=== PATIENT | female | born 1975 | race Caucasian/White ===

== ENCOUNTER 2017-07-08 12:36 | Observation (INO) | payer OTHER ==
[~2017-07-08] VITALS: Ht 121.9 cm; Wt 79.7 kg
[~2017-07-08 12:36] MED LIST: ALBU90OI INH; AMOCLA500; AMOCLA500 PO; AMOCLA875 PO; AMOX1XR; AMOX500 PO; AZIT250 PO; AZIT500 PO; BENZ100A PO; CEPH500 PO; CIPR500 PO; CLIN300 PO; CLOT1TC TOP; CODGUAEL PO; CYCL10 PO; Cleocin HCl300 MG PO; Colace100 MG PO; DIAZ5 PO; FAMO20 PO; HYDACE10B PO; HYDACE5; HYDACE5 PO; HYDGUAL120 PO; HYDMOR8 PO; Humalog100 UNIT/1; Humalog100 UNIT/1 SC; INSDET100; INSUASPI SC; INSULANI; INSULANI SC; INSULANPEN SC; MAGCIT300 PO; META800 PO; METF500; METF500 PO; METF500C PO; NAPR500 PO; NAPR550 PO; Neurontin 100100 MG PO; ONDA4 PO; ONDA8 PO; OXYACE5T PO; OXYC1TAB11; OXYM.05NI; PENVK500 PO; POTCHL20ER PO; PROM25 PO; Percocet 5-3251 EACH PO; Prednisone20 MG PO; RXCLIN PO; RXCYCL10 PO; RXHYDACE PO; RXHYDGUAS PO; RXNAPNA550 PO; TOBDEXOPSU OP; TRAM50 PO; Ultram50 MG PO; WARF4 PO; WARF5; Zofran Odt4 MG SL
[2017-07-08 14:05] LABS: Hematocrit 38.8 % (33.0-51.0); Mean Corpuscular HGB 31.3 pg (26.0-34.0); Mean Corpuscular HGB Conc 33.5 g/dL (31.5-36.5); Mean Corpuscular Volume 94 fL (80-100); Mean Platelet Volume 10.4 fL (9.1-12.4); Platelet Count 315 K/mm3 (150-400); RDW Coefficient Variation 12.1 % (11.7-14.2); RDW Standard Deviation 41.7 fL (35.1-46.3); Red Blood Cell Count 4.15 M/mm3 (3.80-5.20); White Blood Cell Count 27.18 K/mm3 (4.00-11.30)
[2017-07-08 14:16] LABS: International Normalized Ratio 1.02; Prothrombin Time Results 10.6 Sec (9.7-11.5)
[2017-07-08 14:25] LABS: BAND PERCENT MAN 19 % (0-8); BASOPHILS PERCENT MAN 0 % (0-2); EOSINOPHILS PERCENT MAN 0 % (0-6); LYMPHOCYTES ABSOLUTE MAN 0.27 K/mm3 (0.84-5.20); LYMPHOCYTES PERCENT MAN 1 % (21-46); METAMYELOCYTE ABSOLUTE MAN 0.81 K/mm3 (0.00-0.00); METAMYELOCYTE PERCENT MAN 3 % (0-0); MONOCYTES ABSOLUTE MAN 1.63 K/mm3 (0.16-1.47); MONOCYTES PERCENT MAN 6 % (4-13); NEUTROPHILS ABSOLUTE MAN 24.46 K/mm3 (1.96-9.15); SEG NEUTROPHILS PERCENT MAN 71 % (41-73); TOTAL CELLS COUNTED 100
[2017-07-08 14:34] LABS: Alanine Aminotransfer (ALT/SGP 24 U/L (12-78); Albumin, Blood 3.2 g/dL (3.4-5.0); Albumin/Globulin Ratio 0.9 (0.8-1.8); Alk Phos 62 U/L (50-136); Anion Gap 8 mmol/L (6-16); Aspartate Aminotrans (AST/SGOT 21 U/L (12-37); Bilirubin, Total 0.6 mg/dL (0.1-1.0); Blood Urea Nitrogen 18 mg/dL (8-24); Bun/Creatinine Ratio 31.9 (12.0-20.0); CO2, Blood 27 mmol/L (21-32); Calcium, Blood 8.4 mg/dL (8.5-10.1); Chloride, Blood 99 mmol/L (98-108); Creatinine, Blood 0.57 mg/dL (0.40-1.00); Globulin, Blood 3.7 g/dL (2.2-4.0); Glomerular Filtration Rate >60 (60-); Glucose, Blood 379 mg/dL (70-99); Potassium, Blood 4.2 mmol/L (3.5-5.5); Sodium, Blood 134 mmol/L (136-145); Total Protein, Blood 6.9 g/dL (6.4-8.2)
[2017-07-08] MEDS ORDERED: METHADONE IN10 MG/ML PO (17:19)
[2017-07-09 05:36] LABS: BASOPHILS ABSOLUTE AUTO 0.04 K/mm3 (0.00-0.23); BASOPHILS PERCENT AUTO 0 % (0-2); EOSINOPHILS PERCENT AUTO 0 % (0-6); Hematocrit 34.6 % (33.0-51.0); Hemoglobin 11.9 g/dL (11.5-16.0); IMMATURE GRAN ABSOLUTE AUTO 0.11 K/mm3 (0.00-0.10); IMMATURE GRAN PERCENT AUTO 1 % (0-1); LYMPHOCYTES ABSOLUTE AUTO 0.69 K/mm3 (0.84-5.20); LYMPHOCYTES PERCENT AUTO 5 % (21-46); MONOCYTES ABSOLUTE AUTO 0.76 K/mm3 (0.16-1.47); MONOCYTES PERCENT AUTO 5 % (4-13); Mean Corpuscular HGB 32.1 pg (26.0-34.0); Mean Corpuscular HGB Conc 34.4 g/dL (31.5-36.5); Mean Corpuscular Volume 93 fL (80-100); Mean Platelet Volume 11.4 fL (9.1-12.4); NEUTROPHILS ABSOLUTE AUTO 13.78 K/mm3 (1.96-9.15); NEUTROPHILS PERCENT AUTO 90 % (41-73); Platelet Count 209 K/mm3 (150-400); RDW Coefficient Variation 12.1 % (11.7-14.2); RDW Standard Deviation 41.8 fL (35.1-46.3); Red Blood Cell Count 3.71 M/mm3 (3.80-5.20); White Blood Cell Count 15.38 K/mm3 (4.00-11.30)
[2017-07-09 05:59] LABS: Anion Gap 5 mmol/L (6-16); Blood Urea Nitrogen 15 mg/dL (8-24); Bun/Creatinine Ratio 29.6 (12.0-20.0); CO2, Blood 27 mmol/L (21-32); Calcium, Blood 7.7 mg/dL (8.5-10.1); Chloride, Blood 103 mmol/L (98-108); Creatinine, Blood 0.51 mg/dL (0.40-1.00); Glomerular Filtration Rate >60 (60-); Glucose, Blood 273 mg/dL (70-99); Potassium, Blood 4.2 mmol/L (3.5-5.5); Sodium, Blood 135 mmol/L (136-145)
[2017-07-09 07:41] LABS: Source, Urine Catheter
[2017-07-09 07:44] LABS: Bilirubin, Urine Neg (Neg); Blood, Urine 2+ (Neg); Glucose Qualitative, Urine 4+ (Neg); Ketones, Urine Neg (Neg); Leukocyte Esterase, Urine Neg (Neg); Nitrite, Urine Neg (Neg); Protein, Urine 1+ (Neg); Urobilinogen, Urine NORM (Normal)
[2017-07-09 07:46] LABS: Appearance, Urine Clear (Clear); Color, Urine Yellow (P-Yellow)
[2017-07-09 07:52] LABS: Squamous Epithelial Cells Many /hpf (Few); Yeast/Fungi Urine Few /hpf
[2017-07-09 07:54] LABS: Bacteria Rare /hpf; Red Blood Cells, Urine 0-2 /hpf (0-2); White Blood Cells, Urine 0-2 /hpf (0-5)
[2017-07-09] MEDS ORDERED: IBUP400 PO (11:24)
[2017-07-09] MEDS ORDERED: PROBIOTIC1 EACH PO (11:25)
[2017-07-09] MEDS ORDERED: CLIN300 PO (11:25)
== END 2017-07-09 19:00 | disposition home or self-care (01) ==
LOC: ER 12:36 → MEDS 12:37 → ER 15:14 → MEDS 15:14 → ENPENDDIS 07-09 11:00 → MEDS 07-09 19:00
PROVIDERS: Internal Medicine; Nurse Practitioner Family
DX: A41.9 Sepsis, unspecified organism (principal); L03.115 Cellulitis of right lower limb; Q77.4 Achondroplasia; E11.9 Type 2 diabetes mellitus without complications; F11.90 Opioid use, unspecified, uncomplicated; G89.29 Other chronic pain; F17.200 Nicotine dependence, unspecified, uncomplicated; R11.2 Nausea with vomiting, unspecified; Z88.0 Allergy status to penicillin; Z88.2 Allergy status to sulfonamides; Z88.1 Allergy status to other antibiotic agents; Z88.8 Allergy status to other drugs, medicaments and biological substances; Z79.899 Other long term (current) drug therapy
CPT/HCPCS: 36415; 80048; 80053; 81001; 82947; 83605; 85025; 85610; 85730; 96361; 96365; 96375; 99285; J1650; J1815; J2405; J3370; J3490; J7030; J7120

== ENCOUNTER 2017-07-20 19:49 | Emergency (ER) | payer OTHER ==
[~2017-07-20] VITALS: Ht 121.9 cm; Wt 56.7 kg
[~2017-07-20 19:49] MED LIST changes: +IBUP400 PO; +METHADONE IN10 MG/ML PO; +PROBIOTIC1 EACH PO
[2017-07-20 20:38] LABS: BASOPHILS ABSOLUTE AUTO 0.03 K/mm3 (0.00-0.23); BASOPHILS PERCENT AUTO 0 % (0-2); EOSINOPHILS ABSOLUTE AUTO 0.07 K/mm3 (0.00-0.68); EOSINOPHILS PERCENT AUTO 1 % (0-6); Hematocrit 39.2 % (33.0-51.0); IMMATURE GRAN ABSOLUTE AUTO 0.09 K/mm3 (0.00-0.10); IMMATURE GRAN PERCENT AUTO 1 % (0-1); LYMPHOCYTES ABSOLUTE AUTO 1.88 K/mm3 (0.84-5.20); LYMPHOCYTES PERCENT AUTO 22 % (21-46); MONOCYTES ABSOLUTE AUTO 1.32 K/mm3 (0.16-1.47); MONOCYTES PERCENT AUTO 15 % (4-13); Mean Corpuscular HGB 30.7 pg (26.0-34.0); Mean Corpuscular HGB Conc 33.2 g/dL (31.5-36.5); Mean Corpuscular Volume 93 fL (80-100); Mean Platelet Volume 9.3 fL (9.1-12.4); NEUTROPHILS ABSOLUTE AUTO 5.26 K/mm3 (1.96-9.15); NEUTROPHILS PERCENT AUTO 61 % (41-73); Platelet Count 541 K/mm3 (150-400); RDW Coefficient Variation 12.1 % (11.7-14.2); RDW Standard Deviation 41.2 fL (35.1-46.3); Red Blood Cell Count 4.24 M/mm3 (3.80-5.20); White Blood Cell Count 8.65 K/mm3 (4.00-11.30)
[2017-07-20 20:55] LABS: Alanine Aminotransfer (ALT/SGP 21 U/L (12-78); Albumin, Blood 3.1 g/dL (3.4-5.0); Albumin/Globulin Ratio 0.6 (0.8-1.8); Alk Phos 90 U/L (50-136); Anion Gap 8 mmol/L (6-16); Aspartate Aminotrans (AST/SGOT 23 U/L (12-37); Bilirubin, Total 0.2 mg/dL (0.1-1.0); Blood Urea Nitrogen 17 mg/dL (8-24); Bun/Creatinine Ratio 21.4 (12.0-20.0); CO2, Blood 30 mmol/L (21-32); Calcium, Blood 9.2 mg/dL (8.5-10.1); Chloride, Blood 98 mmol/L (98-108); Glomerular Filtration Rate >60 (60-); Glucose, Blood 169 mg/dL (70-99); Potassium, Blood 4.4 mmol/L (3.5-5.5); Sodium, Blood 136 mmol/L (136-145); Total Protein, Blood 8.1 g/dL (6.4-8.2)
[2017-07-20] MEDS ORDERED: Cleocin HCl300 MG PO (21:10)
== END 2017-07-20 21:21 | disposition home or self-care (01) ==
LOC: ER 19:49
PROVIDERS: Emergency Medicine
DX: L03.115 Cellulitis of right lower limb (principal); J44.9 Chronic obstructive pulmonary disease, unspecified; F17.210 Nicotine dependence, cigarettes, uncomplicated
CPT/HCPCS: 36415; 80053; 83605; 85025; 99283

== ENCOUNTER 2018-07-25 11:21 | Emergency (ER) | payer OTHER ==
[~2018-07-25] VITALS: Ht 121.9 cm; Wt 56.7 kg
[2018-07-25] MEDS ORDERED: BASAGLAR K100 UNIT/1 SC (11:40)
[2018-07-25 11:48] LABS: BASOPHILS ABSOLUTE AUTO 0.05 K/mm3 (0.00-0.23); BASOPHILS PERCENT AUTO 0 % (0-2); EOSINOPHILS ABSOLUTE AUTO 0.06 K/mm3 (0.00-0.68); EOSINOPHILS PERCENT AUTO 0 % (0-6); Hematocrit 39.8 % (33.0-51.0); IMMATURE GRAN ABSOLUTE AUTO 0.09 K/mm3 (0.00-0.10); IMMATURE GRAN PERCENT AUTO 1 % (0-1); LYMPHOCYTES ABSOLUTE AUTO 1.78 K/mm3 (0.84-5.20); LYMPHOCYTES PERCENT AUTO 12 % (21-46); MONOCYTES ABSOLUTE AUTO 1.11 K/mm3 (0.16-1.47); MONOCYTES PERCENT AUTO 7 % (4-13); Mean Corpuscular HGB 31.9 pg (26.0-34.0); Mean Corpuscular HGB Conc 32.7 g/dL (31.5-36.5); Mean Corpuscular Volume 98 fL (80-100); Mean Platelet Volume 10.6 fL (9.1-12.4); NEUTROPHILS ABSOLUTE AUTO 11.89 K/mm3 (1.96-9.15); NEUTROPHILS PERCENT AUTO 79 % (41-73); Platelet Count 332 K/mm3 (150-400); RDW Coefficient Variation 11.9 % (11.7-14.2); Red Blood Cell Count 4.08 M/mm3 (3.80-5.20); White Blood Cell Count 14.98 K/mm3 (4.00-11.30)
[2018-07-25 12:04] LABS: Alanine Aminotransfer (ALT/SGP 26 U/L (12-78); Albumin, Blood 3.3 g/dL (3.4-5.0); Albumin/Globulin Ratio 0.9 (0.8-1.8); Alk Phos 102 U/L (50-136); Anion Gap 16 mmol/L (6-16); Aspartate Aminotrans (AST/SGOT 19 U/L (12-37); Bilirubin, Total 0.5 mg/dL (0.1-1.0); Blood Urea Nitrogen 19 mg/dL (8-24); Bun/Creatinine Ratio 34.7 (12.0-20.0); CO2, Blood 16 mmol/L (21-32); Calcium, Blood 10.1 mg/dL (8.5-10.1); Chloride, Blood 99 mmol/L (98-108); Creatinine, Blood 0.55 mg/dL (0.40-1.00); Globulin, Blood 3.6 g/dL (2.2-4.0); Glomerular Filtration Rate >60 (60-); Glucose, Blood 531 mg/dL (70-99); Potassium, Blood 4.3 mmol/L (3.5-5.5); Sodium, Blood 131 mmol/L (136-145); Total Protein, Blood 6.9 g/dL (6.4-8.2); Troponin I <0.015 ng/mL (0.000-0.040)
[2018-07-25] MEDS ORDERED: LANS30EC PO (14:31)
== END 2018-07-25 14:41 | disposition home or self-care (01) ==
LOC: ER 11:21
PROVIDERS: Internal Medicine
DX: R07.9 Chest pain, unspecified (principal); J44.9 Chronic obstructive pulmonary disease, unspecified; F17.210 Nicotine dependence, cigarettes, uncomplicated; E11.9 Type 2 diabetes mellitus without complications; Z88.2 Allergy status to sulfonamides; Z88.0 Allergy status to penicillin
CPT/HCPCS: 36415; 71046; 80053; 82947; 84484; 85025; 93005; 93010; 96374; 96375; 99285-25; J1815; J2405

== ENCOUNTER 2019-01-26 17:01 | Inpatient (IN) | payer OTHER ==
[~2019-01-26] VITALS: Ht 121.9 cm; Wt 81.6 kg
[~2019-01-26 17:01] MED LIST changes: +BASAGLAR K100 UNIT/1 SC; +LANS30EC PO; -METHADONE IN10 MG/ML PO
[2019-01-26 19:10] LABS: BASOPHILS ABSOLUTE AUTO 0.06 K/mm3 (0.00-0.23); BASOPHILS PERCENT AUTO 1 % (0-2); EOSINOPHILS ABSOLUTE AUTO 0.01 K/mm3 (0.00-0.68); EOSINOPHILS PERCENT AUTO 0 % (0-6); Hemoglobin 12.6 g/dL (11.5-16.0); IMMATURE GRAN PERCENT AUTO 1 % (0-1); LYMPHOCYTES ABSOLUTE AUTO 1.98 K/mm3 (0.84-5.20); LYMPHOCYTES PERCENT AUTO 15 % (21-46); MONOCYTES ABSOLUTE AUTO 1.36 K/mm3 (0.16-1.47); MONOCYTES PERCENT AUTO 10 % (4-13); Mean Corpuscular HGB 31.5 pg (26.0-34.0); Mean Corpuscular HGB Conc 33.2 g/dL (31.5-36.5); Mean Corpuscular Volume 95 fL (80-100); Mean Platelet Volume 10.4 fL (9.1-12.4); NEUTROPHILS ABSOLUTE AUTO 9.57 K/mm3 (1.96-9.15); NEUTROPHILS PERCENT AUTO 73 % (41-73); Platelet Count 382 K/mm3 (150-400); RDW Standard Deviation 41.9 fL (35.1-46.3); White Blood Cell Count 13.08 K/mm3 (4.00-11.30)
[2019-01-26 19:40] LABS: Alanine Aminotransfer (ALT/SGP 22 U/L (12-78); Albumin, Blood 3.7 g/dL (3.4-5.0); Albumin/Globulin Ratio 0.9 (0.8-1.8); Alk Phos 123 U/L (50-136); Anion Gap 11 mmol/L (6-16); Aspartate Aminotrans (AST/SGOT 15 U/L (12-37); Bilirubin, Total 0.6 mg/dL (0.1-1.0); Blood Urea Nitrogen 25 mg/dL (8-24); Bun/Creatinine Ratio 26.9 (12.0-20.0); CO2, Blood 26 mmol/L (21-32); Calcium, Blood 10.4 mg/dL (8.5-10.1); Chloride, Blood 87 mmol/L (98-108); Creatinine, Blood 0.93 mg/dL (0.40-1.00); Globulin, Blood 4.3 g/dL (2.2-4.0); Glomerular Filtration Rate >60 (60-); Glucose, Blood 572 mg/dL (70-99); Potassium, Blood 4.2 mmol/L (3.5-5.5); Sodium, Blood 124 mmol/L (136-145)
[2019-01-26 20:11] LABS: Source, Urine Clean Catch
[2019-01-26 20:14] LABS: Bilirubin, Urine Neg (Neg); Blood, Urine 2+ (Neg); Glucose Qualitative, Urine 4+ (Neg); Ketones, Urine 3+ (Neg); Leukocyte Esterase, Urine Neg (Neg); Nitrite, Urine Neg (Neg); Protein, Urine 2+ (Neg); Urobilinogen, Urine NORM (Normal)
[2019-01-26 20:20] LABS: Appearance, Urine Clear (Clear); Color, Urine Yellow (P-Yellow)
[2019-01-26 20:21] LABS: Bacteria Few /hpf; Red Blood Cells, Urine 0-2 /hpf (0-2); Squamous Epithelial Cells Few /hpf (Few); White Blood Cells, Urine Not Seen /hpf (0-5)
[2019-01-26 20:49] LABS: Base Excess Venous 3.1 mmol/L; Bicarbonate Venous 26.2 mmol/L (24.0-30.0); PCO2 Venous 46.9 mmHg (38-42); pH Blood Venous 7.39 (7.34-7.37)
[2019-01-26 21:30] LABS: Glucose, Blood 518 mg/dL (70-99)
--- NOTE | 2019-01-26 23:25 | NUR ---
Admission/[place] of Care: Patient arrived to unit via stretcher, accompanied by ED nurse. Transferred to ICU bed via slide sheet and x4 staff members. Patient sleeping and difficult to rouse. Opened eyes x1 and responds to noxious stimuli, moaned and stated a few words when turning patient in bed. Sleeping when not stimulated by staff. Arrived on insulin gtt at 2u/hr, maintained this dose/rate after POC glucose shortly after arrival. LR started at 100ml/hr per EMAR. Peripheral IV's x2 patent and intact. VSS, O2-96% on RA. Incontinent of urine in ED just prior to arrival to unit. Will continue to monitor for pain, comfort, safety. Plan to contact Alda TURNER when repeat BMP results obtained.
[2019-01-27 00:19] LABS: Anion Gap 5 mmol/L (6-16); Blood Urea Nitrogen 22 mg/dL (8-24); Bun/Creatinine Ratio 24.6 (12.0-20.0); CO2, Blood 33 mmol/L (21-32); Calcium, Blood 9.4 mg/dL (8.5-10.1); Chloride, Blood 94 mmol/L (98-108); Creatinine, Blood 0.89 mg/dL (0.40-1.00); Glomerular Filtration Rate >60 (60-); Glucose, Blood 297 mg/dL (70-99); Potassium, Blood 3.4 mmol/L (3.5-5.5); Sodium, Blood 132 mmol/L (136-145)
[2019-01-27 00:32] LABS: U Amphetamine Screen Not Detected; U Barbituate Screen Not Detected; U Benzodiazapine Screen Not Detected; U Buprenorphine Screen Not Detected; U Cannabinoids Screen Not Detected; U Cocaine Screen Not Detected; U Methadone Screen DETECTED; U Methamphetamine Screen Not Detected; U Opiates Screen Not Detected; U Oxycodone Screen Not Detected; U Phencyclidine Screen Not Detected; U Propoxyphene Screen Not Detected
--- NOTE | 2019-01-27 01:00 | NUR ---
LABS/CONFUSION/COMBATIVE: REPEAT BMP AND LACTIC RESULTS RECEIVED. REPEAT LABS SHOWED DECREASE IN LACTIC ACID TO 1.5 AND k+ 3.4, BLOOD GLUCOSE DOWN TO 295. KATIE LAIRD ARRIVED TO UNIT. SPOKE WITH KATIE ABOUT LABS AND POSSIBLE SOURCE/REASON BEHIND CONFUSION/COMBATIVNE WHEN AWAKE. RECEIVED ORDERS TO GIVE 30U OF LANTUS SC, AND THEN TURN OFF INSULIN GTT IN 1HR. ALSO RECEIVED ORDER FOR 40MEQ IV KCL X1, BLOOD CULTURES, CHEST X-RAY, HALDOL PRN, AND ZYPREXA PRN. PATIENT THEN WOKE AND BECOME VERY RESTLESS/AGITATED. CONTINUALLY ATTEMPTING TO CLIMB OUT OF BED AND PULL AT LINES/TUBES/CORDS. PATIENT ALSO YELLING/SCREAMING "LET ME OUT", "I GOTTA GET UP". UNABLE TO RE-DIRECT PATIENT AND SHE WOULD NOT ANSWER ANY QUESTIONS. PRN HALDOL IV THEN GIVEN WITH LITTLE TO NO EFFECTIVE. THEN RECEIVED ORDER PER KATIE CARDING MACHINE FEEDER FOR ATIVAN 2MG IV, RESTRAINTS SOFT WRIST BILATERAL INITIATED. PATIENT THEN BECAME CALM AND WENT BACK TO SLEEP. ABLE TO OBTAIN BLOOD CX AND CHEST X-RAY AT THAT TIME.
[2019-01-27 01:54] LABS: Anion Gap 8 mmol/L (6-16); Blood Urea Nitrogen 22 mg/dL (8-24); CO2, Blood 29 mmol/L (21-32); Calcium, Blood 9.5 mg/dL (8.5-10.1); Chloride, Blood 96 mmol/L (98-108); Creatinine, Blood 0.88 mg/dL (0.40-1.00); Glomerular Filtration Rate >60 (60-); Glucose, Blood 245 mg/dL (70-99); Potassium, Blood 3.3 mmol/L (3.5-5.5); Sodium, Blood 133 mmol/L (136-145)
--- NOTE | 2019-01-27 06:17 | NUR ---
Shift Summary: See previous note r/t behaviors after admission to unit. Patient slept well for extended period of time, following prn Haldol and Ativan. Patient again woke, approx 0400hr, and became very restless, agitated, and combative. Patient continually pulling at restraints and attempting to get out of bed. Not able to re-direct patient, despite attempts by several staff members. Patient's HR increased to the 150's-160's. Prn Ativan then given, x2mg with good effect noted. Patient quickly went back to sleep, HR decreased to normal sinus, and which persisted throughout remainder of shift. Responds to noxious stimuli (oral care, repositioning), but remains calm and sleeping. No void throughout remainder of shift, bladder scan showed 80-100ml, therefore morrison catheter not placed at this time. Peripheral IV's remain patent and intact. Will continue to monitor until report to day shift RN.
--- NOTE | 2019-01-27 07:32 | NUR ---
ASSUMED CARE: REPORT RECEIVED FROM CHRISTY Branch RN. ASSUMED CARE OF THIS PT AT APPROX 0700. ON ASSESSMENT, THE PT IS RESTING QUIETLY. SHE AWAKENS BRIEFLY TO VERBAL OR PHYSICAL STIMULI & BECOMES EASILY AGITATED, QUICKLY RESUMES SLEEPING. BILAT SOFT WRIST RESTRAINTS IN PLACE PT IS HIGHLY CONFUSED WHEN AWAKE & MAKING ATTEMPTS TO GET OOB. PT ON 3L NC W/ O2 SATS > 92%, OCCASIONAL SNORING NOTED W/ NO DESATS. MONITOR SHOWS SR W/ HR 70s, BP HYPERTENSIVE BUT STABLE. PT HAS BT x4, NO VOID SINCE ARRIVAL TO UNIT. PRIOR SHIFT COMPLETED BLADDER SCANS W/ NO INDICATION TO PLACE [place], WILL BLADDER SCAN THIS AM WELL IF STILL NO VOID. SKIN OVERALL CDI. WILL CONTINUE TO MONITOR & UPDATE NEEDED.
[2019-01-27 08:48] LABS: Anion Gap 3 mmol/L (6-16); Blood Urea Nitrogen 18 mg/dL (8-24); Bun/Creatinine Ratio 22.4 (12.0-20.0); CO2, Blood 33 mmol/L (21-32); Calcium, Blood 9.1 mg/dL (8.5-10.1); Chloride, Blood 101 mmol/L (98-108); Glomerular Filtration Rate >60 (60-); Glucose, Blood 147 mg/dL (70-99); Potassium, Blood 4.4 mmol/L (3.5-5.5); Sodium, Blood 137 mmol/L (136-145)
--- NOTE | 2019-01-27 09:51 | NUR ---
UPDATE: PT AWAKE, SHE IS THRASHING AROUND IN THE BED & SAYING "LET ME GET UP" & MUBLING INCOHERENTLY WELL, ALTHOUGH SHE IS UNABLE TO KEEP HER EYES OPEN WHILE DOING THESE THINGS. SHE IS NOT REDIRECTABLE & CONTINUES TO THRASH & MAKE ATTEMPTS TO GET OOB UNTIL MEDS ARE GIVEN PER EMAR. THE PT VOIDS A LARGE UNMEASURED AMNT DURING THIS TIME & HAS BEEN PLACED IN ATTENDS FOR INCONTINENCE. SINCE PREMIX OPERATOR CONCENTRATE SHE IS RESTING QUIETLY, BILAT SOFT WRIST RESTRAINTS REMAIN IN PLACE. WILL CONTINUE TO MONITOR & UPDATE NEEDED.
[2019-01-27 10:13] LABS: Hematocrit 35.1 % (33.0-51.0); Hemoglobin 11.4 g/dL (11.5-16.0); Mean Corpuscular HGB 31.3 pg (26.0-34.0); Mean Corpuscular HGB Conc 32.5 g/dL (31.5-36.5); Mean Corpuscular Volume 96 fL (80-100); Mean Platelet Volume 11.1 fL (9.1-12.4); Platelet Count 351 K/mm3 (150-400); RDW Standard Deviation 42.9 fL (35.1-46.3); Red Blood Cell Count 3.64 M/mm3 (3.80-5.20); White Blood Cell Count 10.89 K/mm3 (4.00-11.30)
--- NOTE | 2019-01-27 10:20 | NUR ---
PAPER CONSERVATOR: YVON RN, ROUNDING ON PT's. STS SHE WILL HELP W/ THIS PT BY ATTEMPTING TO TRACK DOWN [facility] THAT THE PT USES & OBTAIN DOSING INFO. WILL CONTINUE TO MONITOR & UPDATE NEEDED.
[2019-01-27 10:49] LABS: BASOPHILS PERCENT MAN 0 % (0-2); EOSINOPHILS PERCENT MAN 0 % (0-6); LYMPHOCYTES ABSOLUTE MAN 2.61 K/mm3 (0.84-5.20); LYMPHOCYTES PERCENT MAN 24 % (21-46); MONOCYTES ABSOLUTE MAN 1.63 K/mm3 (0.16-1.47); MONOCYTES PERCENT MAN 15 % (4-13); NEUTROPHILS ABSOLUTE MAN 6.64 K/mm3 (1.96-9.15); SEG NEUTROPHILS PERCENT MAN 61 % (41-73); TOTAL CELLS COUNTED 100
--- NOTE | 2019-01-27 11:30 | NUR ---
ASSSUMED CARE RECEIVED REPORT FROM KRISTI PAUL. PT IS ASLEEP. SHE HAS NS INFUSING AT 100ML/HR. SHE HAS SWB RESTRAINTS SECURED TO THE BED. BED IS LOW AND LOCKED. VITALS ARE STABLE.
[2019-01-27 12:06] LABS: Anion Gap 6 mmol/L (6-16); Blood Urea Nitrogen 16 mg/dL (8-24); Bun/Creatinine Ratio 23.1 (12.0-20.0); CO2, Blood 30 mmol/L (21-32); Calcium, Blood 9.3 mg/dL (8.5-10.1); Chloride, Blood 101 mmol/L (98-108); Creatinine, Blood 0.69 mg/dL (0.40-1.00); Glomerular Filtration Rate >60 (60-); Glucose, Blood 113 mg/dL (70-99); Potassium, Blood 4.5 mmol/L (3.5-5.5); Sodium, Blood 137 mmol/L (136-145)
[2019-01-27 12:07] LABS: Troponin I <0.015 ng/mL (0.000-0.040)
--- NOTE | 2019-01-27 12:40 | NUR ---
UPDATE/AGITATION PT IS EXTREEMLY AGITATED, AND IS THRASHING AROUND CONSTANTLY WITH INTERMITTANT MOMENTS OF REST (EYES ARE CLOSED). HER HR AND BP RESPOND ACCORDINGLY BY INCREASING. SHE DOES NOT FOLLOW DIRECTIONS OR ANSWER QUESTIONS. HALDOL 5MG HAS HAD MINIMAL EFFECT. CONSIDERING USING ZYPREXA IM. AND DAUGHTER HAVE BEEN IN AND OUT. IS UPSET THAT WE "DONT KNOW WHAT IS GOING ON WITH HER" AND THAT SHE IS IN RESTRAINTS. I HAVE EXPLAINED WHY SHE IS IN RESTRAINTS AND THAT IT IS ULTIMATELY FOR HER OWN SAFETY. I ALSO DICUSSED WITH HIM THE CURRENT PLAN OF CARE AND WHAT WE ARE DOING NOW TO FIGURE OUT THE SOURCE OF THIS ALTERED MENTAL STATUS AND AGITATION. THE BROUGHT IN HER DAILY DOSE OF METHADONE, WHICH SEEMS TO BE NOT THE FULL DOSE ACTUALLY IN THE CONTAINER. I TALKED WITH DR HUIZAR AND SHE TOLD EM TO WITHOLD THE METHADONE FOR NOW, AND WE CAN REEVALUATE WHEN SHE IS MORE ALERT AND ORIENTED.
--- NOTE | 2019-01-27 14:36 | NUR ---
UPDATE PT IS THRASHING AROUND AND IS PULLING EVERYTHING OFF. SHE IS TAKEN OFF TELLY UNTIL HER ZYPREXA KICKS IN AND WE CAN GET HER HOOKED UP TO ALL OUR MONITORING AGAIN. I ATTEMPTED TAKING HER OUT OF HER RESTRAINTS TO SEE IF THAT WOULD HELP WITH HER AGITATION LEVEL. IT DID NOT. SHE WAS PLACED BACK IN RESTRAINTS.
--- NOTE | 2019-01-27 15:39 | NUR ---
DR. HUIZAR IN ROOM CURRENTLY ASSESSING THE PATIENT AND TALKING TO THE .
[2019-01-27 17:15] LABS: Base Excess Venous 7.3 mmol/L; Bicarbonate Venous 29.4 mmol/L (24.0-30.0); PCO2 Venous 54 mmHg (38-42); PO2 Venous 43 mmHg (38-42); pH Blood Venous 7.38 (7.34-7.37)
[2019-01-27 18:12] LABS: Influenza A Negative (NEGATIVE); Influenza B Negative (NEGATIVE)
--- NOTE | 2019-01-27 18:24 | NUR ---
Clinical Visit: Pt with history of type 2 diabetes, cellulitis, achondroplasia dwarfism, degenerative joint disease, COPD, DVT, obstructive sleep apnea. She is admitted with ketoacidosis. Her blood sugar was brought down, however, she is now agitated and restrained. She has received ativan, zyprexa, and haldol. Nurse reports haldol did not work for her around noon today, and he gave her zyprexa later in the day. Pt is flushed. She is agitated and has freed one hand from restraints. Saturations are okay and the nurse removes the oxygen tubing and fixed the restraint. She is murmuring and has a deep furrowed brow. She appears anxious and painful. Nurse shows the bottle of methadone pt takes. Apparently, pt took a dose of this yesterday. She is on a high dosage of methadone and the bottle is empty. It was dispensed on 01/20. Directions state to take on 01/25. On high doses of methadone, withdrawal symptoms can appear within 24 hours. Symptoms include nausea, vomiting, anxiety. Pt also has many allergies to medications listed. Nurse states that pt's will be back to the hospital and spend the night with the pt here. Will follow up with the pt and in the morning.
--- NOTE | 2019-01-27 19:13 | NUR ---
SHIFT SUMMARY PT REMAINS ALTERED MENTALLY, AND IS ALTERNATING FROM REST AND AGITATION. ZYPREXA SEEMED TO OFFER THE MOST BENEFIT OVER HALDOL. TRIED TO AVOID USING ATIVAN. PT IS INCONTINENT AND IS RESISTANT TO CARE. SHE IS NOT FOLLOWING DIRECTIONS. SHE IS FLAILING ALL EXTREMETIES. SHE IS IN TWO POINT SWB RESTRAINTS. SPENT A LOT OF TIME DISCUSSING PLAN OF CARE AND MEDICATIONS WITH THE TODAY, HE SEEMED TO COMPREHEND MOST OF THE INFORMATION, BUT THERE STILL MAY BE SOME CONFUSION AND FOLLOW UP QUESTIONS. DR GARCIA SAW PATIENT TODAY. PALLIATIVE CARE CAME BY, BUT IS GOING TO COME BY TOMORROW WHEN SHE CAN TALK TO THE , BECAUSE THE PATIENT IS CONFUSED CURRENTLY. PT'S VITALS ARE STABLE UNTIL AGITATION AND THEN SHE BECOMES HYPERTENSIVE (SBP >160) AND TACHYCARDIC (HR >130'S) WHEN RESTING/SEDATED PT BECOMES APNEIC AND CAN DE-SAT, REQUIRING OXYGEN 2L NC. BED IS LOW AND LOCKED. RESTRAINTS SECURED TO BED.
--- NOTE | 2019-01-27 21:40 | NUR ---
ASSUMPTION OF CARE RECEIVED REPORT. PT HAD BEEN AGITATED THROUGHOUT THE DAY AND WAS GIVEN ATIVAN AND ZYPREXA. BILATERAL WRIST RESTRAINTS STILL IN PLACE. UPON INITIAL ASSESSMENT, HER LEFT ARM WAS VERY EDEMOUS. IV WOULD NOT FLUSH. WAS INFILTRATED AND D/C. AFTER ASSESSING THE RIGHT HAND IV, THE CATHETER WAS OUT OF THE SKIN, AND HAD TO BE D/C. MULTIPLE ATTEMPTS AT POWERGLIDE INSERTION WHICH FAILED. A PERIPHERAL IV WAS PLACED IN THE LEFT ARM, AND ONE IN THE RIGHT. VITALS ARE CURRENTLY STABLE WITH PERIODS OF SINUS TACH. INSULIN WAS ON STANBY AT ASSUMPTION OF SHIFT, WITH THE NS @ 100ML/HR. BOTH ARE CURRENTLY ON STANBY. WILL CONTINUE TO MONITOR PATIENT THROUGHOUT SHIFT. FOREIGN QUINTANILLA
--- NOTE | 2019-01-27 22:02 | NUR ---
ASSUMPTION OF CARE UPON INITIAL ASSESSMENT OF PT, HER LEFT ARM WAS VERY EDEMOUS. IV WOULD NOT FLUSH. WAS INFILTRATED AND D/C. UPON ASSESSING RIGHT HAND IV, CATHETER WAS OUT OF THE SKIN AND WAS D/C. MULTIPLE ATTEMPTS OCCURED TO PLACE A POWER GLIDE, HOWEVER DUE TO PATIENT AGITATION AND FLAILING HER ARMS AND BODY, ALL ATTEMPTS WERE UNSUCCESSFUL. TWO PERIPHERAL IVS WERE PLACED, ONE IN RIGHT ARM, ONE IN LEFT. ATIVAN, HALDOL, AND OLANZAPINE HAD TO BE GIVEN TO CALM PATIENT. SHE IS CURRENTLY ON BIPAP MASK. PATIENT'S BP GOES TO OVER 160 SYS AND HR OVER 130/140 WHEN SHE IS AGITATED, YELLING, AND FLAILING. PATIENT IS CURRENTLY RESTING QUIETLY, SHE DOES WHEN NO INTERVENTIONS ARE ATTEMPTED ON HER. VITALS ARE STABLE. NS AND INSULIN DRIPS ARE CURRENTLY ON STANDBY. PT CURRENTLY WEARING BRIEF D/T INCONTINENCE WILL CONTINUE TO MONITOR FOREIGN QUINTANILLA
[2019-01-28 03:51] LABS: BASOPHILS ABSOLUTE AUTO 0.03 K/mm3 (0.00-0.23); BASOPHILS PERCENT AUTO 0 % (0-2); EOSINOPHILS ABSOLUTE AUTO 0.01 K/mm3 (0.00-0.68); EOSINOPHILS PERCENT AUTO 0 % (0-6); Hematocrit 33.8 % (33.0-51.0); Hemoglobin 10.8 g/dL (11.5-16.0); IMMATURE GRAN ABSOLUTE AUTO 0.04 K/mm3 (0.00-0.10); IMMATURE GRAN PERCENT AUTO 0 % (0-1); LYMPHOCYTES ABSOLUTE AUTO 2.38 K/mm3 (0.84-5.20); LYMPHOCYTES PERCENT AUTO 24 % (21-46); MONOCYTES ABSOLUTE AUTO 1.68 K/mm3 (0.16-1.47); MONOCYTES PERCENT AUTO 17 % (4-13); Mean Corpuscular HGB 30.5 pg (26.0-34.0); Mean Corpuscular Volume 96 fL (80-100); Mean Platelet Volume 10.1 fL (9.1-12.4); NEUTROPHILS ABSOLUTE AUTO 5.78 K/mm3 (1.96-9.15); NEUTROPHILS PERCENT AUTO 58 % (41-73); Platelet Count 305 K/mm3 (150-400); RDW Coefficient Variation 12.1 % (11.7-14.2); RDW Standard Deviation 42.9 fL (35.1-46.3); Red Blood Cell Count 3.54 M/mm3 (3.80-5.20); White Blood Cell Count 9.92 K/mm3 (4.00-11.30)
[2019-01-28 04:09] LABS: Albumin, Blood 2.5 g/dL (3.4-5.0); Anion Gap 4 mmol/L (6-16); Blood Urea Nitrogen 9 mg/dL (8-24); Bun/Creatinine Ratio 12.4 (12.0-20.0); CO2, Blood 32 mmol/L (21-32); Calcium, Blood 8.7 mg/dL (8.5-10.1); Chloride, Blood 105 mmol/L (98-108); Creatinine, Blood 0.73 mg/dL (0.40-1.00); Glomerular Filtration Rate >60 (60-); Glucose, Blood 106 mg/dL (70-99); Phosphorus, Blood 2.7 mg/dL (2.5-4.9); Potassium, Blood 4.2 mmol/L (3.5-5.5); Sodium, Blood 141 mmol/L (136-145)
--- NOTE | 2019-01-28 06:08 | NUR ---
UPON ASSUMPTION OF CARE, IT WAS DISCOVERED THE LEFT ARM IV WAS INFILTRATED, THE RIGHT IV CATHETER WAS OUT OF THE SKIN. MULTIPLE POWERGLIDE ATTEMPTS WERE UNSUCCESSFUL DUE TO PATIENT FLAILING ARMS AND LEGS, THIS IN SPITE OF DOSES OF HALDOL, ATIVAN, AND ZYPREXA. TWO PERIPHERAL IVS WERE PLACED: 20G LAC, 20G [id number]. BOTH ARE PATENT AND INTACT. INFUSING 100ML NS ON LEFT ARM IV, INSULIN ON STANDBY. THROUGHOUT REST OF SHIFT, PATIENT HAS BEEN MOSTLY QUIET AND SLEEPING. WHEN CHANGING HER ATTENDS, SHE WAS AGITATED AND YELLING OUT, HOWEVER SHE PROMPTLY CALMED DOWN AND FELL ASLEEP AFTER THE CHANGE WAS COMPLETED, W/O THE NEED FOR MEDICATION. STILL CURRENTLY IN SWB RESTRAINTS. PATIENT WAS DESATTING DOWN TO BELOW 80, BIPAP PLACED ON HER WITH SETTINGS OF 12/6/2L, SAT YORDY TO THE HIGH 90S, WHERE IT REMAINS. PATIENT IS CURRENTLY QUIET AND RESTING. VITALS ARE STABLE. WILL CONTINUE TO MONITOR. FOREIGN QUINTANILLA
--- NOTE | 2019-01-28 07:31 | NUR ---
ASSUMED CARE RECEIEVED REPORT FROM KRISTI HARRISON. PT IS SLEEPING IN BED, ON BIPAP 02/18, 45%. HER RR IS 9/MIN, BUT IS MAINTAING SAT'S AT 100%. I WILL CONTINUE TO MONITOR RR. HR STABLE, BP ELEVATED IN 160'S. NS IS INFUSING AT 100ML/HR. WILL START PERCUSSION THERAPY. BED IS LOW AND LOCKED. ATTENDS ARE DRY.
[2019-01-28 12:11] LABS: Base Excess Venous -0.7 mmol/L; Bicarbonate Venous 23.8 mmol/L (24.0-30.0); PCO2 Venous 38.2 mmHg (38-42); PO2 Venous 56.9 mmHg (38-42); pH Blood Venous 7.41 (7.34-7.37)
--- NOTE | 2019-01-28 17:00 | NUR ---
TRANSFER TO ICU 6 Assumed care from Coreen BERRY. Pt on 0.4 mcg/kg/hr precedex. Laying in bed with SWW. Sleeping, audible snore noted. Rouses to verbal stimulus. SpO2 90% or greater with 2 LPM NC. SR per monitor. Bed in lowest position. Call light in reach. Spouse updated on plan of care.
--- NOTE | 2019-01-28 17:39 | NUR ---
GAVE REPORT TO ABIMAEL ARAGON RN. PT TRANSPORTED TO ICU06. PT LEFT ON PRECEDEX 0.4MCG/KG/HR AND NS @ 100ML/HR. VITALS STABLE. SHE WAS SOUND ASLEEP/SEDATED. SHE WAS ON 2L NC TO MAINTAIN SATS. PERIPHERAL IV SITES WNL. DRY ATTENDS.
--- NOTE | 2019-01-28 20:35 | NUR ---
ASSUMED PT CARE FROM KRISTI THAKKAR PT SLEEPING IN BED WITH PRECEDEX GTT AT 0.4MCG/KG/HR. NO FAMILY OR VISITORS AT BEDSIDE. NS INFUSING AT 100MLS/HR. 2L OXYGEN VIA NC. BIPAP AT BEDSIDE NEEDED; PT IS CURRENTLY SNORING; BIOX 97%. BILATERAL SOFT WRIST RESTRAINTS IN PLACE. 20G IV NOTED TO LEFT AC; 20G TO RIGHT UPPER ARM NOT PATENT AND PULLED. PT ARISES WITH ANY SORT OF NOXIOUS STIMULI; FOLLOWS SIMPLE COMMANDS, BUT UNABLE TO DETERMINE MENTATION PT UNABLE TO STATE WHERE SHE WAS OR WHAT YEAR/DATE IT IS. PT MAINLY MOANS AND GROANS UPON ARISING FROM NOXIOUS STIMULI; HOWEVER, DENIES PAIN. SHE BECOMES AGITATED AT TIMES AND ATTEMPTS TO THRASH IN BED. WILL CONTINUE TO MONITOR AND TITRATE PRECEDEX TO EFFECT.
--- NOTE | 2019-01-28 21:03 | NUR ---
FAMILY AT BEDSIDE STATES THEY ARE PT'S AUNT AND UNCLE; STATED THEY RECEIVED A CALL FROM BROTHER, LATOYA, THAT PT WAS IN THE INTENSIVE CARE UNIT AND HE WANTED THEM TO COME CHECK ON THE PT. LATOYA WAS INFORMED OF PT BEING IN ICU FROM ANU ANOTHER AUNT WHO IS CURRENTLY ON THE CONSENT TO VERBAL RELEASE OF INFORMATION SHEET.
--- NOTE | 2019-01-28 21:30 | NUR ---
MORE FAMILY AT BEDSIDE PT'S MOM CAME IN TO VISIT. VOLUNTEERED INFORMATION REGARDING PT GOING TO [facility] TO HX OF HEROIN USE. STATES THEY HAVE A LARGE FAMILY THAT IS ALL DISTANT IN RELATIONS; HOWEVER, THEY ARE ALL WANTING UPDATES AND ARE ABLE TO "GET ALONG" WHEN IT COMES TO THE HEALTH AND WELL BEING OF ONE ANOTHER. ASKED THAT THE UPDATE THE CONSENT TO RELEASE VERBAL INFORMATION OVER THE PHONE TO OTHER FAMILY MEMBERS WHO HAVE BEEN CALLING FOR UPDATES; OR AT LEAST DESIGNATE ONE PERSON TO UPDATE FAMILY MEMBERS.
[2019-01-29 05:08] LABS: BASOPHILS ABSOLUTE AUTO 0.04 K/mm3 (0.00-0.23); BASOPHILS PERCENT AUTO 0 % (0-2); EOSINOPHILS ABSOLUTE AUTO 0.12 K/mm3 (0.00-0.68); EOSINOPHILS PERCENT AUTO 1 % (0-6); Hematocrit 36.7 % (33.0-51.0); Hemoglobin 11.8 g/dL (11.5-16.0); IMMATURE GRAN ABSOLUTE AUTO 0.06 K/mm3 (0.00-0.10); IMMATURE GRAN PERCENT AUTO 1 % (0-1); LYMPHOCYTES ABSOLUTE AUTO 1.82 K/mm3 (0.84-5.20); LYMPHOCYTES PERCENT AUTO 18 % (21-46); MONOCYTES ABSOLUTE AUTO 1.32 K/mm3 (0.16-1.47); MONOCYTES PERCENT AUTO 13 % (4-13); Mean Corpuscular HGB 30.9 pg (26.0-34.0); Mean Corpuscular HGB Conc 32.2 g/dL (31.5-36.5); Mean Corpuscular Volume 96 fL (80-100); NEUTROPHILS ABSOLUTE AUTO 6.58 K/mm3 (1.96-9.15); NEUTROPHILS PERCENT AUTO 66 % (41-73); Platelet Count 309 K/mm3 (150-400); RDW Coefficient Variation 12.2 % (11.7-14.2); RDW Standard Deviation 42.4 fL (35.1-46.3); Red Blood Cell Count 3.82 M/mm3 (3.80-5.20); White Blood Cell Count 9.94 K/mm3 (4.00-11.30)
[2019-01-29 05:10] LABS: Base Excess Venous 0.5 mmol/L; Bicarbonate Venous 25.7 mmol/L (24.0-30.0); PCO2 Venous 25.8 mmHg (38-42); PO2 Venous 189 mmHg (38-42); pH Blood Venous 7.55 (7.34-7.37)
[2019-01-29 05:28] LABS: Alanine Aminotransfer (ALT/SGP 20 U/L (12-78); Albumin, Blood 2.4 g/dL (3.4-5.0); Albumin/Globulin Ratio 0.6 (0.8-1.8); Alk Phos 99 U/L (50-136); Anion Gap 6 mmol/L (6-16); Aspartate Aminotrans (AST/SGOT 25 U/L (12-37); Bilirubin, Total 0.3 mg/dL (0.1-1.0); Blood Urea Nitrogen 6 mg/dL (8-24); Bun/Creatinine Ratio 9.2 (12.0-20.0); CO2, Blood 27 mmol/L (21-32); Calcium, Blood 8.5 mg/dL (8.5-10.1); Chloride, Blood 109 mmol/L (98-108); Creatinine, Blood 0.65 mg/dL (0.40-1.00); Globulin, Blood 3.8 g/dL (2.2-4.0); Glomerular Filtration Rate >60 (60-); Glucose, Blood 201 mg/dL (70-99); Potassium, Blood 3.9 mmol/L (3.5-5.5); Sodium, Blood 142 mmol/L (136-145); Total Protein, Blood 6.2 g/dL (6.4-8.2)
[2019-01-29 06:42] LABS: Base Excess Venous -1.8 mmol/L; Bicarbonate Venous 23.1 mmol/L (24.0-30.0); PCO2 Venous 37.4 mmHg (38-42); PO2 Venous 166 mmHg (38-42)
--- NOTE | 2019-01-29 06:46 | NUR ---
END OF SHIFT SUMMARY PT MORE ALERT AND ORIENTED. TURNED OFF PRECEDEX AT 0445; REMOVED RESTRAINTS AT 0245. PT CALM AND COOPERATIVE WITH CARE; ABLE TO FOLLOW DIRECTIONS. ORIENTED TO PERSON, PLACE, TIME, AND SITUATION. WHEN QUESTIONED REGARDING METHADONE INGESTION PT STATES SHE IS MORAVIAN ABOUT TAKING HER PRESCRIBED AMOUNT AND NO MORE. SHE STATED SHE WOULD NEVER ABUSE HER METHADONE. PT DOES NOT RECALL ANY SORT OF BEHAVIORS OR DECREASE IN LEVEL OF CONCIOUSNESS OVER THE LAST FEW DAYS; SHE WAS IN DISBELIEF WHEN SHE WAS TOLD IT WAS THURSDAY. SHE WAS ABLE TO RECALL WHY SHE CAME TO THE HOSPITAL TO BEGIN; HOWEVER, DOES NOT REMEMBER THE EVENTS THAT TOOK PLACE AFTER THAT. KRISTI ACEVEDO AND KRISTI ADAIR BOTH ATTEMPTED POWERGLIDE PLACEMENT TO RIGHT UPPER ARM. DIFFICULT PROCEDURE PT HAS VERY TOUGH VEINS. CURRENTLY POWERGLIDE IS INFUSING NS AT 100MLS/HR; HOWEVER, DURING BLOOD DRAWS IT IS VERY POSITIONAL AND REQUIRES A TOURNIQUET WITH TRACTION PULLED IN ORDER TO GET ANY BLOOD. PT HAS BEEN INCONTINENT TWICE THIS SHIFT; HOWEVER, NOW THAT SHE IS MORE ALERT AND ORIENTED; SHE IS ABLE TO COMMUNICATE WITH STAFF WHEN SHE NEEDS TO USE THE BATHROOM. CALL LIGHT WITHIN REACH; REPORT PASSED OFF TO KRISTI THAKKAR.
--- NOTE | 2019-01-29 08:00 | NUR ---
BEGINNING OF SHIFT Assumed care at 0700. Bedside report recieved from Jammie BERRY. Pt on room air. Awakens to verbal stimulus. States correct name and states "hospital" and "[place], [place]" when asked about current location. Pt does not state correct month or year. Pt has garbled speech. Most sentences are incomprehensible. Sometimes syllables are out of order. Pt requests "I want water", tearfully, while holding cup of water. Pt has had excellent PO intake of water. No visitors since beginning of shift.
--- NOTE | 2019-01-29 09:00 | NUR ---
VEST RESTRAINT Pt agitated and calling out to staff. Assisted to use bedpan. Pt then states "I need to go to the bathroom" repeately. Pt reminded that she voided in the bedpan. Pt reinforces that she "needs to go to the bathroom". Assisted to use commode. Pt then states she does not need to use commode. Pt remains agitated. Assisted to chair and then placed in vest restraint.
--- NOTE | 2019-01-29 09:40 | NUR ---
DR LEWIS IN TO SEE PT Provider spoke with patient. Discussed that per cartridge gauger, pt totally cleared up and and was appropriate with staff. At this time, pt is agitated and does not answer questions appropriately consistently. Plan to DC zyprexa, ativan, and haldol. Precedex to be used conservatively.
--- NOTE | 2019-01-29 11:47 | NUR ---
ELEVATED BLOOD GLUCOSE Blood glucose 429. Dr Worrell notified. Pt has not had any PO intake besides water. Immediately after taking blood sugar, pt had emesis. Pt has had severe thirst and large amount of urine output since beginning of shift. Plan to obtain BMP at 1200.
[2019-01-29 12:51] LABS: Anion Gap 18 mmol/L (6-16); Blood Urea Nitrogen 11 mg/dL (8-24); Bun/Creatinine Ratio 15.5 (12.0-20.0); CO2, Blood 16 mmol/L (21-32); Calcium, Blood 8.4 mg/dL (8.5-10.1); Chloride, Blood 100 mmol/L (98-108); Creatinine, Blood 0.71 mg/dL (0.40-1.00); Glomerular Filtration Rate >60 (60-); Glucose, Blood 439 mg/dL (70-99); Potassium, Blood 4.3 mmol/L (3.5-5.5); Sodium, Blood 134 mmol/L (136-145)
--- NOTE | 2019-01-29 13:00 | NUR ---
PLAN OF CARE DISCUSSED WITH DR WORRELL Discussed lab results, including most recent blood glucose levels. Plan to start insulin drip. Discussed medications that pt received in ER. Pt received IV benadryl, ativan, toradol, and companzine. Per pt's spouse, pt was totally alert and oriented prior to arriving to the ER. He states that the pt filled out all her own paperwork and became altered after receiving IV medication. Pt's spouse is concerned about pt withdrawal from methadone. Per Dr Worrell, methadone will be started.
--- NOTE | 2019-01-29 15:34 | NUR ---
CALL PLACED TO DR LEMUS Notified provider that pt has not had a BM since admission. Per pt's spouse, pt takes metamucil at home for constipation. New orders given.
--- NOTE | 2019-01-29 15:54 | NUR ---
CALL PLACED TO DR LEWIS Clarified lab order. Next BMP to be drawn at 1600. Discussed lantus dosing. Provider expects that insulin drip can be discontinued this afternoon/evening and lantus can be given as scheduled.
[2019-01-29 16:52] LABS: Anion Gap 12 mmol/L (6-16); Blood Urea Nitrogen 10 mg/dL (8-24); Bun/Creatinine Ratio 15.5 (12.0-20.0); CO2, Blood 19 mmol/L (21-32); Calcium, Blood 7.7 mg/dL (8.5-10.1); Chloride, Blood 102 mmol/L (98-108); Creatinine, Blood 0.65 mg/dL (0.40-1.00); Glomerular Filtration Rate >60 (60-); Glucose, Blood 228 mg/dL (70-99); Potassium, Blood 3.9 mmol/L (3.5-5.5); Sodium, Blood 133 mmol/L (136-145)
--- NOTE | 2019-01-29 17:51 | NUR ---
PLAN OF CARE DISCUSSED WITH DR LEWIS Pt okay to eat. Orders given for lantus. Insulin drip to be turned off in one hour.
--- NOTE | 2019-01-29 19:10 | NUR ---
SUMMARY Pt A&O x 2. Forgetful and often repeats requests. Initially, when asked if pt is at her baseline mentation, the spouse stated "Yes, but it sounds like she bit her tongue". This afternoon, the spouse verbalized concern that pt is more forgetful and "cloudy" than usual. Pt has gotten OOB several times this shift, but has difficulty following directions. Pt is able to verbalize to staff when she needs to urinate, but often has incontinence due to urgency. Pt had elevated blood sugars and was on insulin drip at 4 units/hr from 1300 until 1845. Pt had emesis at 1200, but tolerated ADA diet dinner without difficulty this evening. Dose of methadone given this afternoon, pt tolerated well. Pt spent majority of afternoon visiting with family at bedside. Pt has been on room air for entire shift. Pt has been in sinus tachycardia with rate between 100 and 110. Bed in lowest position. Call light in reach. Pt denies need at this time.
--- NOTE | 2019-01-29 19:56 | NUR ---
ASSUMED PT CARE PT SLEEPING IN BED. EASILY AROUSABLE. APPEARS ALERT AND ORIENTED TO PERSON, PLACE, TIME, AND IS ABLE TO RECALL WHY SHE CAME TO THE HOSPITAL. FORGETFUL OF RECENT EVENTS THAT HAVE TRANSPIRED TODAY. PT IS VERY DROWSY AND FALLS ASLEEP MIDCONVERSATION. PT IS CURRENTLY SALINE LOCKED; AFEBRILE AT 97.7. VSS WITH PT NOTED TO BE SINUS TACH; HR 105. PUPILS ARE PINPOINT AT 2MM, BUT REACTIVE TO LIGHT. NO C/O PAIN. PT IS BEING VERY CALM AND COOPERATIVE WITH CARES AT THIS TIME. WILL CONTINUE TO MONITOR.
[2019-01-29 21:02] LABS: Anion Gap 10 mmol/L (6-16); Blood Urea Nitrogen 12 mg/dL (8-24); Bun/Creatinine Ratio 14.8 (12.0-20.0); CO2, Blood 22 mmol/L (21-32); Calcium, Blood 7.8 mg/dL (8.5-10.1); Chloride, Blood 101 mmol/L (98-108); Creatinine, Blood 0.81 mg/dL (0.40-1.00); Glomerular Filtration Rate >60 (60-); Glucose, Blood 193 mg/dL (70-99); Potassium, Blood 4.6 mmol/L (3.5-5.5); Sodium, Blood 133 mmol/L (136-145)
[2019-01-30 04:13] LABS: Anion Gap 8 mmol/L (6-16); Blood Urea Nitrogen 17 mg/dL (8-24); Bun/Creatinine Ratio 18.4 (12.0-20.0); CO2, Blood 22 mmol/L (21-32); Calcium, Blood 7.6 mg/dL (8.5-10.1); Chloride, Blood 103 mmol/L (98-108); Creatinine, Blood 0.92 mg/dL (0.40-1.00); Glomerular Filtration Rate >60 (60-); Glucose, Blood 248 mg/dL (70-99); Potassium, Blood 4.2 mmol/L (3.5-5.5); Sodium, Blood 133 mmol/L (136-145)
--- NOTE | 2019-01-30 05:30 | NUR ---
END OF SHIFT SUMMARY PT HAS REMAINED ALERT AND ORIENTED T/O SHIFT; NO BEHAVIORS NOTED. VERY FORGETFUL AND ASKS REPEATED QUESTIONS; HOWEVER, LONG-TERM MEMORY APPEARS INTACT. PT STILL VERY DROWSY AND FALLS ASLEEP MID CARE AND CONVERSATION. PT ON BIPAP WHILE SLEEPING WITH BIPAP PRESSURES 8/5; FIO2 25%. PT TOLERATED THESE SETTINGS FOR MOST OF THE NIGHT UNTIL AT APPROXIMATELY 0500 BIPAP ALARMED D/T LOW TIDAL VOLUMES. UPON ENTRY OF ROOM AND ASSESSMENT OF PT SHE WAS PULLING LESS THAN 100 IN TIDAL VOLUMES AND OXYGEN SATURATIONS STARTED TO DIP TO 80'S AND THEN QUICKLY TO 60'S. ATTEMPTED TO STERNAL RUB PT; HOWEVER, SHE WAS NOT RESPONDING. TIDAL VOLUMES LOW 40'S WHEN IPAP PRESSURES WERE INCREASED TO 12. CONTINUED TO STERNAL RUB PT UNTIL SHE BECAME RESPONSIVE AND STARTED FLAILING HER ARMS AT THE STAFF TO STOP TOUCHING HER. BIOX INCREASED TO 98% WITH BIPAP 12/8; FIO2 25%; TV >400. EDUCATED PT IN REGARDS TO WHAT HAD TAKEN PLACE AND REASSURED HER WE WEREN'T TRYING TO HURT HER, BUT GET HER TO WAKE UP AND BREATHE. PT VERBALIZED UNDERSTANDING AND THEN PROCEEDED TO TELL US THAT HER DAD AFTER A BACK SURGERY BECAUSE HE HAD FALLEN ASLEEP WITHOUT HIS CPAP AND WENT INTO CARDIAC ARREST. HIGHLY ENCOURAGED PT TO START WEARING HER CPAP AT NIGHT SHE STATES SHE DOESN'T ALWAYS WEAR IT. SUGGESTED THAT SHE FOLLOW UP WITH HER SOLUTIONS CONSULTANT TO HAVE ANOTHER SLEEP STUDY PERFORMED SHE MAY NEED HER SETTINGS ADJUSTED ON HER CPAP. PT VERBALIZED UNDERSTANDING. CURRENT SETTINGS ON THE BIPAP ARE 10/5 WITH FIO2 25% WITH TIDAL VOLUMES GREATER THAN 400 AND BIOX GREATER THAN 95%; PT TOLERATING WELL. PT HAS BEEN DRY ALL NIGHT; WHEN ASKED IF SHE NEEDS TO VOID SHE DENIES THE NEED, BUT PT ALSO HAS ONLY HAD A FEW SIPS OF WATER HERE AND THERE. CALL LIGHT WITHIN REACH; PT IS ABLE TO MAKE HER NEEDS KNOWN. WILL CONTINUE TO MONITOR UNTIL REPORT IS HANDED OFF TO ONCOMING RN.
--- NOTE | 2019-01-30 07:42 | NUR ---
BEGINNING OF SHIFT Assumed care of pt at 0700. Bedside report received from Jammie BERRY. Pt awake, in bed. A&O x 2. Oriented to current situation and states "I think the meds I got in the ER made me foggy". Pt states correct name and . States location as [place], [place]. States month as "January" and year as "2019". Pt currently on room air. SpO2 90% or greater. Pt up to chair for breakfast.
--- NOTE | 2019-01-30 09:30 | NUR ---
DR WORRELL IN TO SEE PT This RN and Dr Worrell observed sleeping in bed while on room air. SpO2 variable, ranging between 65% and 85%. Pt snoring, in bed. Pt remained in this range for over one minute. SpO2 increased above 90% after pt was lightly nudged. Later, pt was fully awakened by verbal stimulus and this RN and Dr Worrell spoke to pt about sleep apnea. Pt reported she has a CPAP and wore it every day for several years. She states she does not wear it as often anymore. Plan of care discussed. Pt verbalized understanding of importance for wearing CPAP. Dr Worrell stated discharge was appropriate, if Dr Juares was agreeable.
--- NOTE | 2019-01-30 10:00 | NUR ---
DESATURATION Pt sleeping in bed, SpO2 dropped to 58%. Pt woke up to verbal stimulus and O2 saturation immediately recovered. BiPAP placed on pt.
--- NOTE | 2019-01-30 10:30 | NUR ---
DR JUARES IN TO SEE PT O2 saturations while sleeping discussed. Dr Juares instructed pt to start wearing CPAP tonight. Pt agreed. Plan for discharge. Pt states she has a dose of methadone at home. Dr Juares instructed pt to resume home methadone tomorrow morning. Pt states she typically takes dose at 10 am.
--- NOTE | 2019-01-30 11:15 | NUR ---
UPDATE Pt calls to notify of discharge. Pt's spouse states pt does not have methadone at home. Dr Juares notified. Written prescription provided for one dose of methadone for tonight.
[2019-01-30] MEDS ORDERED: Metamucil Smooth1 EA PO (11:35)
--- NOTE | 2019-01-30 12:10 | NUR ---
CANCELLED DISCHARGE Pt dressed in regular clothing. IV access discontinued. This RN provides discharge education and emphasizes importance of wearing CPAP. Pt's spouse shakes his head and states "pt does not have a CPAP". This RN states pt claims to own a CPAP and does not use it anymore. Pt states "It is in storage". This RN reminds pt that provider instructed pt to start wearing CPAP tonight and pt agreed to this. Pt states "My CPAP isn't even in this town". Pt and spouse inquire where pt can get another CPAP. This RN educates about outpatient sleep study. Pt states "I can borrow my mom's. She doesn't use it. They said its going to get taken away because she doesn't use it". This RN educates pt this is not a cornelius decision. This RN educates pt about O2 desaturation to 58% and that this level is not compatible with life. This RN educates pt about hypoxia and risk for . This RN discusses pt's father's that pt attributes to sleep apnea. This RN educates about respiratory depression and methadone usage. Call placed to Dr Juares. Discharge cancelled. Plan for sleep oximetry study tonight so pt can be sent home with O2 for night use. Call placed to Dr Worrell. Dr Worrell updated. Provider states she would like pt to follow up with pulmonology/sleep specialists within one week of discharge. Dr Worrell agreeable with plan for overnight sleep oximetry. This RN educates pt and spouse of change in plan of care. Pt states "My mom said I could use hers tonight. Please let me go home. My baby is at home". This RN educates pt why this plan of care is important and reiterates several times that if pt goes home "you could ". Pt and spouse verbalize understanding and agree to plan of care.
--- NOTE | 2019-01-30 12:15 | NUR ---
PT AND SPOUSE OFF UNIT Pt and spouse inquire if spouse can wheel pt around hospital. Pt inquires about lunch. This RN notifies that lunch trays are here. Pt states "I will eat when I come back".
--- NOTE | 2019-01-30 14:01 | NUR ---
UPDATE Pt states her mom was able to get the CPAP out of storage. This RN instructed pt to have CPAP brought in so RT can look over it. This RN and RT Kingsley spoke to patient. Pt's spouse states "there is no CPAP. We have been like 8 years and I have never seen a CPAP". When asked about the CPAP that was "taken out of storage", pt's spouse states, "We are just saying whatever we can to get her out of here". Pt and spouse inquire what they can do to be sent home today. This RN educates pt and spouse that this RN and providers cannot safely recommend patient goes home today and her only option for going home today would be leaving against medical advice. Pt agrees to stay the night.
--- NOTE | 2019-01-30 15:46 | NUR ---
TRANSFER TO MEDICAL FLOOR Pt transferred to room 325 accompanied by family and Ten RN. Pt transferred via wheelchair. Meds, chart, and belongings transferred with patient.
--- NOTE | 2019-01-30 17:53 | NUR ---
SHIFT COURTNEY- PT TRANSFERED FROM ICU TO MED FLOOR. PT ALERT, ORIENTED AND INDEPENDENT. PT HAS HAD NO S&S OF WITHDRAWL SINCE TRANSFER, SHE WENT OUTSIDE TWICE TO SMOKE WITH HER FAMILY. PT FAMILY WENT HOME BEFORE DINNER. PT IS CURRENTLY TALKING ON THE PHONE STANDING IN HER ROOM. PT IS DIABETIC AC/HS BLOOD SUGAR WAS 293 THIS EVENING SHE GOT 10 UNITS OF COVERAGE.
--- NOTE | 2019-01-31 04:59 | NUR ---
SHIFT SUMMARY LYING IN SEMI FOWLERS WITH EYES CLOSED WHILE SLEEP STUDY IS IN PROGRESS. HAS RESTED WELL THIS SHIFT. DENIES PAIN, DISCOMFORT, OR FURTHER NEEDS AT THIS TIME. SAFETY MEASURES IN PLACE. STATES SHE IS LOOKING FORWARD TO GOING HOME TODAY. HAND OFF TO BE GIVEN TO DAY SHIFT RN.
--- NOTE | 2019-01-31 10:03 | NUR ---
PT DISCHARGED FROM UNIT AT 1000, LEFT WITH VIA WHEEL CHAIR. REVIEWED DISCHARGE INFORMATION WITH PT.
--- NOTE | 2019-01-31 10:24 | NUR ---
SLEEP STUDY PREFORMED LAST NIGHT PER RT AND DR. LEMUS PT DID NOT QUALIFY FOR CPAP, RECOMENDED FOR PT TO FOLLOW UP ON AN OUTPATIENT BASIS FOR SLEEP STUDY.
== END 2019-01-31 09:57 | disposition home or self-care (01) | DRG 917 ==
LOC: ER 17:01 → ICUE 21:38 → ER 21:38 → ICUW 21:38 → ERHOLD 21:38 → ICUW 22:32 → ICUE 01-28 17:03 → MEDS 01-30 15:09
PROVIDERS: Internal Medicine; Internal Medicine Pulmonary Disease; Nurse Practitioner Acute Care; Physician Assistant; ADMIT Hospitalist
DX: T40.3X1A Poisoning by methadone, accidental (unintentional), initial encounter (principal); G92 Toxic encephalopathy; J96.02 Acute respiratory failure with hypercapnia; E11.10 Type 2 diabetes mellitus with ketoacidosis without coma; F11.20 Opioid dependence, uncomplicated; J98.11 Atelectasis; Z68.42 Body mass index [BMI] 45.0-49.9, adult; E87.1 Hypo-osmolality and hyponatremia; G47.33 Obstructive sleep apnea (adult) (pediatric); Z79.4 Long term (current) use of insulin; Q77.4 Achondroplasia; T73.0XXA Starvation, initial encounter; M19.90 Unspecified osteoarthritis, unspecified site; J44.9 Chronic obstructive pulmonary disease, unspecified; E66.01 Morbid (severe) obesity due to excess calories; K21.9 Gastro-esophageal reflux disease without esophagitis; F17.210 Nicotine dependence, cigarettes, uncomplicated; R51 Headache; E11.65 Type 2 diabetes mellitus with hyperglycemia
CPT/HCPCS: 36415; 70450; 71045; 80048; 80053; 80069; 81001; 82010; 82140; 82803; 82947; 83036; 83605; 83880; 84145; 84443; 84484; 85025; 87040; 87804; 90686; 93005; 93010; 94640; 94660; 94762; 96361; 96374; 96375; 96376; 99285-25; C1751; G0008; J0780; J1200; J1630; J1650; J1815; J1885; J1956; J2060; J2310; J2405; J3480; J7030; J7120

== ENCOUNTER 2019-02-07 10:32 | Inpatient (IN) | payer OTHER ==
[~2019-02-07] VITALS: Ht 104.1 cm; Wt 78.8 kg
[~2019-02-07 10:32] MED LIST changes: +Metamucil Smooth1 EA PO
[2019-02-07 10:45] LABS: pH Blood Arterial 7.01 (7.35-7.45)
[2019-02-07 10:46] LABS: PO2 Arterial 133 mmHg (80-100)
[2019-02-07 10:55] LABS: Calcium, Ionized (POC) 1.14 mmol/L (1.10-1.46); Chloride (POC) 100 mmol/L (98-108); Creatinine (POC) 0.8 mg/dL (0.6-1.0); Glucose (ISTAT POC) >700 mg/dL (70-99); Hemoglobin (POC) 12.9 g/dL (12.0-16.0); Potassium (POC) 5.7 mmol/L (3.5-5.5); Sodium (POC) 126 mmol/L (135-148); Total CO2 (POC) <5 mmol/L (21-32)
[2019-02-07 11:09] LABS: BASOPHILS PERCENT AUTO 1 % (0-2); EOSINOPHILS ABSOLUTE AUTO 0.02 K/mm3 (0.00-0.68); EOSINOPHILS PERCENT AUTO 0 % (0-6); Hematocrit 40.8 % (33.0-51.0); Hemoglobin 11.9 g/dL (11.5-16.0); IMMATURE GRAN ABSOLUTE AUTO 0.64 K/mm3 (0.00-0.10); IMMATURE GRAN PERCENT AUTO 3 % (0-1); LYMPHOCYTES ABSOLUTE AUTO 1.76 K/mm3 (0.84-5.20); LYMPHOCYTES PERCENT AUTO 8 % (21-46); MONOCYTES ABSOLUTE AUTO 1.19 K/mm3 (0.16-1.47); MONOCYTES PERCENT AUTO 6 % (4-13); Mean Corpuscular HGB 31.4 pg (26.0-34.0); Mean Corpuscular HGB Conc 29.2 g/dL (31.5-36.5); Mean Platelet Volume 11.3 fL (9.1-12.4); NEUTROPHILS ABSOLUTE AUTO 17.25 K/mm3 (1.96-9.15); NEUTROPHILS PERCENT AUTO 82 % (41-73); Platelet Count 500 K/mm3 (150-400); RDW Coefficient Variation 12.6 % (11.7-14.2); RDW Standard Deviation 50.4 fL (35.1-46.3); Red Blood Cell Count 3.79 M/mm3 (3.80-5.20); White Blood Cell Count 20.96 K/mm3 (4.00-11.30)
[2019-02-07 11:10] LABS: Mean Corpuscular Volume 108 fL (80-100)
[2019-02-07 11:16] LABS: Source, Urine Catheter
[2019-02-07 11:35] LABS: Bilirubin, Urine Neg (Neg); Blood, Urine 1+ (Neg); Glucose Qualitative, Urine 4+ (Neg); Ketones, Urine 4+ (Neg); Leukocyte Esterase, Urine Neg (Neg); Nitrite, Urine Neg (Neg); Protein, Urine 2+ (Neg); Urobilinogen, Urine NORM (Normal)
[2019-02-07 11:43] LABS: Alanine Aminotransfer (ALT/SGP 24 U/L (12-78); Albumin, Blood 3.3 g/dL (3.4-5.0); Albumin/Globulin Ratio 0.7 (0.8-1.8); Alk Phos 154 U/L (50-136); Anion Gap 34 mmol/L (6-16); Aspartate Aminotrans (AST/SGOT 24 U/L (12-37); Bilirubin, Total 0.4 mg/dL (0.1-1.0); Blood Urea Nitrogen 35 mg/dL (8-24); CO2, Blood 4 mmol/L (21-32); Chloride, Blood 90 mmol/L (98-108); Creatinine, Blood 0.97 mg/dL (0.40-1.00); Globulin, Blood 4.6 g/dL (2.2-4.0); Glomerular Filtration Rate >60 (60-); Glucose, Blood 1022 mg/dL (70-99); Potassium, Blood 5.8 mmol/L (3.5-5.5); Sodium, Blood 128 mmol/L (136-145); Total Protein, Blood 7.9 g/dL (6.4-8.2)
[2019-02-07 11:45] LABS: Magnesium, Blood 2.3 mg/dL (1.6-2.4)
[2019-02-07 11:46] LABS: Appearance, Urine Clear (Clear); Color, Urine Pale Yellow (P-Yellow)
[2019-02-07 11:47] LABS: Amorphous Light (0-Heavy); Bacteria Few /hpf; Squamous Epithelial Cells Few /hpf (Few); White Blood Cells, Urine 0-2 /hpf (0-5)
[2019-02-07 11:53] LABS: U Methadone Screen DETECTED
[2019-02-07 11:54] LABS: U Amphetamine Screen Not Detected; U Barbituate Screen Not Detected; U Benzodiazapine Screen Not Detected; U Buprenorphine Screen Not Detected; U Cannabinoids Screen Not Detected; U Cocaine Screen Not Detected; U Methamphetamine Screen Not Detected; U Opiates Screen Not Detected; U Oxycodone Screen Not Detected; U Phencyclidine Screen Not Detected; U Propoxyphene Screen Not Detected
[2019-02-07] MEDS ORDERED: METF500 PO (12:17)
[2019-02-07] MEDS ORDERED: METHADONE IN10 MG/ML PO (12:23)
--- NOTE | 2019-02-07 13:17 | NUR ---
PATIENT ADMITTED TO ICU 15 AT 1250 AFTER REPORT FROM KRISTI HDZ. PATIENT UNRESPONSIVE WITH KUSMAUL RESPIRATIONS 30-S TO 50'S. INSULIN GTT AT 7.9 UNITS/HR. NS 200 ML/HR.
--- NOTE | 2019-02-07 14:08 | NUR ---
REPORTS THAT PATIENT HAS NOT BEEN ABUSING HER METHADONE AND THAT SHE DOES NOT CHECK HER BLOOD SUGARS REGULARLY. HE REPORTS THAT SHE SAYS SHE KNOWS WHEN HER BLOOD SUGAR IS HIGH OR LOW AND SHE IS STUBBORN ABOUT IT WHEN HE TELLS HER SHE NEEDS TO CHECK IT.
[2019-02-07 14:17] LABS: Glucose, Blood 692 mg/dL (70-99)
[2019-02-07 14:19] LABS: PO2 Arterial 122 mmHg (80-100); pH Blood Arterial 7.05 (7.35-7.45)
[2019-02-07 14:20] LABS: PCO2 Arterial 10.5 mmHg (35-45)
--- NOTE | 2019-02-07 14:55 | NUR ---
PATIENT AWAKE NOW. ASKING FOR WATER. WILL PROVIDE ORAL SWABS.
[2019-02-07 15:13] LABS: Adenovirus Not Detected (NOT DETECT); Bordetella pertussis Not Detected (NOT DETECT); Chlamydophila pneumoniae Not Detected (NOT DETECT); Coronavirus 229E Not Detected (NOT DETECT); Coronavirus HKU1 Not Detected (NOT DETECT); Coronavirus NL63 Not Detected (NOT DETECT); Coronavirus OC43 Not Detected (NOT DETECT); Human Metapneumovirus Not Detected (NOT DETECT); Human Rhinovirus/Enterovirus Not Detected (NOT DETECT); Influenza A Not Detected (NOT DETECT); Influenza A/2009-H1 Not Detected (NOT DETECT); Influenza A/H1 Not Detected (NOT DETECT); Influenza A/H3 Not Detected (NOT DETECT); Influenza B Not Detected (NOT DETECT); Mycoplasma pneumoniae Not Detected (NOT DETECT); Parainfluenza Virus 1 Not Detected (NOT DETECT); Parainfluenza Virus 2 Not Detected (NOT DETECT); Parainfluenza Virus 3 Not Detected (NOT DETECT); Parainfluenza Virus 4 Not Detected (NOT DETECT); Respiratory Syncytial Virus Not Detected (NOT DETECT)
--- NOTE | 2019-02-07 15:17 | NUR ---
INSULIN GTT TITRATED TO 3 UNITS/HR. NS W/1 AMP BICARB AT 200 ML/HOUR.
[2019-02-07 15:26] LABS: Glucose, Blood 577 mg/dL (70-99)
[2019-02-07 15:51] LABS: Anion Gap 31 mmol/L (6-16); Blood Urea Nitrogen 30 mg/dL (8-24); Bun/Creatinine Ratio 30.6 (12.0-20.0); CO2, Blood 3 mmol/L (21-32); Calcium, Blood 8.3 mg/dL (8.5-10.1); Chloride, Blood 107 mmol/L (98-108); Creatinine, Blood 0.98 mg/dL (0.40-1.00); Glomerular Filtration Rate >60 (60-); Glucose, Blood 584 mg/dL (70-99); Potassium, Blood 4.1 mmol/L (3.5-5.5); Sodium, Blood 141 mmol/L (136-145)
[2019-02-07 16:19] LABS: Glucose, Blood 461 mg/dL (70-99)
--- NOTE | 2019-02-07 16:31 | NUR ---
NOTIFIED DR. JOSUE OF 1420 VENOUS CO2. REPEAT ABG ORDERED. INSULIN GTT TITRATED TO 2 UNITS/HR.
[2019-02-07 16:42] LABS: PCO2 Arterial > 15 mmHg (35-45); PO2 Arterial 105 mmHg (80-100)
[2019-02-07 16:43] LABS: pH Blood Arterial 7.18 (7.35-7.45)
--- NOTE | 2019-02-07 17:16 | NUR ---
CBG 380. INSULIN GTT TITRATED TO 1 UNIT/HR. CONSULTED DR. JOSUE RE: CHANGING IVF. ORDER TO DC NS WITH BICARB AND START D5W AT 150/HR.
--- NOTE | 2019-02-07 18:39 | NUR ---
PATIENT MEDICAL STATUS. FAMILY AT BEDSIDE ALL DAY. UP TO TOILET AND CHAIR WITH NO DIZZINESS. H/H STABLE. UNABLE TO SEND STOOL SPECIMEN ONLY HAD A SMEAR ON TOILET PAPER.
--- NOTE | 2019-02-07 18:50 | NUR ---
PATIENT IS MORE AWAKE. HR AND RR IMPROVED. INSULIN GTT AT 1 UNIT/HR. D5W AT 150 ML/HR
[2019-02-07 19:04] LABS: Anion Gap 24 mmol/L (6-16); Blood Urea Nitrogen 30 mg/dL (8-24); Bun/Creatinine Ratio 32.1 (12.0-20.0); CO2, Blood 8 mmol/L (21-32); Calcium, Blood 8.4 mg/dL (8.5-10.1); Chloride, Blood 110 mmol/L (98-108); Creatinine, Blood 0.94 mg/dL (0.40-1.00); Glomerular Filtration Rate >60 (60-); Glucose, Blood 390 mg/dL (70-99); Potassium, Blood 4.4 mmol/L (3.5-5.5); Sodium, Blood 142 mmol/L (136-145)
--- NOTE | 2019-02-07 19:07 | NUR ---
REPORT TO KRISTI CHAPARRO.
--- NOTE | 2019-02-07 22:00 | NUR ---
ASSUMED CARE OF PT. PT ALERT TO VERBAL STIMULI, VERY QUICKLY FALLS BACK TO SLEEP. INSULIN GTT 2 3 U/HR-RECENT CBG 380. D5W @ 150 MLS/HR. VSS. SEE FULL SHIFT ASSESSMENT.
[2019-02-07 22:57] LABS: Anion Gap 17 mmol/L (6-16); Blood Urea Nitrogen 30 mg/dL (8-24); Bun/Creatinine Ratio 32.3 (12.0-20.0); CO2, Blood 16 mmol/L (21-32); Calcium, Blood 8.2 mg/dL (8.5-10.1); Chloride, Blood 110 mmol/L (98-108); Creatinine, Blood 0.93 mg/dL (0.40-1.00); Glomerular Filtration Rate >60 (60-); Glucose, Blood 376 mg/dL (70-99); Potassium, Blood 4.2 mmol/L (3.5-5.5); Sodium, Blood 143 mmol/L (136-145)
[2019-02-08 04:08] LABS: BASOPHILS ABSOLUTE AUTO 0.02 K/mm3 (0.00-0.23); BASOPHILS PERCENT AUTO 0 % (0-2); EOSINOPHILS ABSOLUTE AUTO 0.01 K/mm3 (0.00-0.68); EOSINOPHILS PERCENT AUTO 0 % (0-6); Hematocrit 30.3 % (33.0-51.0); Hemoglobin 10.2 g/dL (11.5-16.0); IMMATURE GRAN ABSOLUTE AUTO 0.25 K/mm3 (0.00-0.10); IMMATURE GRAN PERCENT AUTO 1 % (0-1); LYMPHOCYTES ABSOLUTE AUTO 1.62 K/mm3 (0.84-5.20); LYMPHOCYTES PERCENT AUTO 7 % (21-46); MONOCYTES ABSOLUTE AUTO 2.72 K/mm3 (0.16-1.47); MONOCYTES PERCENT AUTO 13 % (4-13); Mean Corpuscular HGB 31.5 pg (26.0-34.0); Mean Corpuscular HGB Conc 33.7 g/dL (31.5-36.5); Mean Platelet Volume 9.8 fL (9.1-12.4); NEUTROPHILS PERCENT AUTO 79 % (41-73); Platelet Count 459 K/mm3 (150-400); RDW Coefficient Variation 12.7 % (11.7-14.2); RDW Standard Deviation 43.5 fL (35.1-46.3); Red Blood Cell Count 3.24 M/mm3 (3.80-5.20); White Blood Cell Count 21.82 K/mm3 (4.00-11.30)
[2019-02-08 04:09] LABS: Mean Corpuscular Volume 94 fL (80-100)
[2019-02-08 04:27] LABS: Alanine Aminotransfer (ALT/SGP 21 U/L (12-78); Albumin, Blood 2.7 g/dL (3.4-5.0); Albumin/Globulin Ratio 0.7 (0.8-1.8); Alk Phos 109 U/L (50-136); Anion Gap 10 mmol/L (6-16); Aspartate Aminotrans (AST/SGOT 38 U/L (12-37); Bilirubin, Total 0.3 mg/dL (0.1-1.0); Blood Urea Nitrogen 28 mg/dL (8-24); Bun/Creatinine Ratio 33.2 (12.0-20.0); CO2, Blood 22 mmol/L (21-32); Calcium, Blood 8.4 mg/dL (8.5-10.1); Chloride, Blood 111 mmol/L (98-108); Creatinine, Blood 0.84 mg/dL (0.40-1.00); Globulin, Blood 3.7 g/dL (2.2-4.0); Glomerular Filtration Rate >60 (60-); Glucose, Blood 211 mg/dL (70-99); Potassium, Blood 3.6 mmol/L (3.5-5.5); Sodium, Blood 143 mmol/L (136-145); Total Protein, Blood 6.4 g/dL (6.4-8.2)
--- NOTE | 2019-02-08 06:15 | NUR ---
SHIFT SUMMARY ANION GAP CLOSED AT 0440, PT ON D51/2NS@ 75 ML/HR, INSULIN GTT @ 3 UNITS/HR WITH MOST RECENT CBG 143. PT HAS DENIED NAUSEA T/O SHIFT AND HAS HAD NO EPISODES OF EMESIS. PT RESTLESS IN BED AND OCCASIONALLY GROANING, PT DENIES PAIN OR NEEDS. PT VERY DROWSY BUT ALERT TO VERBAL STIMULI AND COOPERATIVE WITH CARE. PT FEBRILE T/O SHIFT WITH TMAX 101.0, CURRENT TEMP 99.5. 800 ML URINARY OUTPUT. WILL REPORT TO DAYSHIFT NURSE.
--- NOTE | 2019-02-08 08:46 | NUR ---
INITIAL ASSESSMENT PATIENT SLEEPING SOUNDLY UPON ENTERING ROOM. PATIENT RESPONDS TO VERBAL STIMULI. PATIENT ALERT AND ORIENTED TO SELF, FAMILY, PLACE, PERSON. PATIENT LETHARGIC. PATIENT ANXIOUS ABOUT WHEN SHE WILL BE GETTING OUT OF HOSPITAL. PATIENT STATES SHE WANTS OUT OF HOSPITAL BY 1100 SO SHE CAN GET HER METHADONE. PATIENT HAS TEMP OF 99.2 DEGREES FAHRENHEIT. PATIENT SATTING 90% AND GREATER ON RA. LUNGS CLEAR. DENIES COUGH. PATIENT IN ST, HR IN THE LOW 100S. BP STABLE. PATIENT DENIES NAUSEA. HOLLINGSWORTH IN PLACE DRAINING CLEAR/ YELLOW URINE. SCATTERED BRUISES NOTED TO KRZYSZTOF AND ABDOMEN. INSULIN DRIP ON STANDBY LAST BLOOD SUGAR 107. D5 1/2 NS INFUSING AT 75 MLS/ HOUR. BED LOW, CALL LIGHT IN REACH. WILL CONTINUE TO MONITOR PATIENT FREQUENTLY THROUGHOUT SHIFT.
--- NOTE | 2019-02-08 09:18 | NUR ---
SPOKE WITH DR. JOSUE AND UPDATED ON PATIENT STATUS. INFORMED THAT PATIENT ANXIOUS TO GO HOME SO THAT SHE CAN GET HER METHADONE. INFORMED THAT PATIENT'S WBC INCREASING AND THAT SHE HAD A TMAX OF 101.0 DEGREES FAHRENHEIT ON CHIEF OF PEDIATRIC UROLOGY AND TEMP OF 99.2 DEGREES FAHRENHEIT THIS AM. INFORMED DOCTOR THAT BLOOD SUGARS THIS AM 114 AND 107. INFORMED THAT INSULIN DRIP DECREASED FROM 1 UNIT/ HOUR TO STANDBY. INFORMED THAT D5 1/2 NS INFUSING AT 75 MLS/ HOUR. INFORMED THAT ANION GAP CLOSED. ORDERS RECEIVED.
--- NOTE | 2019-02-08 10:05 | NUR ---
CALLED AND SPOKE TO [facility] IN REGARDS TO DAILY DOSE OF METHADONE PATIENT IS SUPPOSED TO BE ON. NURSE AT [facility] STATED THAT LAST TIME PATIENT WAS ADMITTED TO HOSPITAL THAT THEY WERE SUPPOSED TO BE ON 145 MG PO DAILY BUT THAT PATIENT ONLY GIVEN 5 MG INSTEAD. [facility] RN STATED THAT WHEN PATIENT GOT DISCHARGED THAT THEY HAD TO TITRATE HER DOWN AFTER BEING GIVEN SO LITTLE IN HOSPITAL AND THAT THEY ARE NOW WORKING ON TITRATING THE PATIENT BACK UP. [facility] NURSE STATED THAT PATIENT WAS SUPPOSED TO GO TO [facility] YESTERDAY TO GET A 90 MG DOSE, BUT DID NOT SHOW UP FOR IT. [facility] NURSE SUPPOSED TO CALL ICU NURSE BACK AFTER TALKING WITH ANOTHER STAFF MEMBER AND DOCTOR THERE TO INFORM OF WHAT THE MED DOSE SCHEDULE IS SUPPOSED TO BE. DR. JOSUE INFORMED. WILL WAIT TO HER BACK FROM [facility].
--- NOTE | 2019-02-08 10:40 | NUR ---
SPOKE TO NURSE AT [facility] ABOUT PATIENT'S NETHADONE DOSE AGAIN. NURSE STATED THAT THE DOCTOR AT [facility] RECOMMENDS STAYING ON 80 MG METHADONE WHILE IN HOSPITAL AND THAT THEY CAN CONTINUE TO TITRATE UP WHEN SHE GETS OUT. DR. JOSUE INFORMED.
--- NOTE | 2019-02-08 11:37 | NUR ---
PATIENT SLEEPING SOUNDLY UPON ENTERING ROOM. PATIENT HAS TEMP OF 100.5 DEGREES FAHRENHEIT BUT FEELS COLD. VITAL SIGNS STABLE. PATIENT STARTED ON DAILY METHADONE. INSULIN DRIP AND D5 1/2 NS STOPPED. PATIENT TREATED WITH REGULAR INSULIN FOR BLOOD SUGAR OF 314. PATIENT STATES WILL BE IN TO SEE HER SOON. NO OTHER ACUTE CHANGES TO NOTE ON AT THIS TIME. WILL CONTINUE TO MONITOR.
--- NOTE | 2019-02-08 12:52 | NUR ---
SHIFT SUMMARY PATIENT REMAINS MOSTLY ORIENTED. PATIENT HAD TMAX OF 100.5 DEGREES FAHRENHEIT. PATIENT RESTARTED ON HER DAILY DOSE OF METHADONE AFTER SPEAKING WITH HER NURSE AT [facility]. VITAL SIGNS HAVE REMAINED STABLE. PATIENT REMAINED IN ST, HR LOW 100S. BP STABLE. PATIENT HAS POOR APPETITE. PATIENT HAS NOT HAD ANY COMPLAINTS OF NAUSEA. NO BM THIS SHIFT. HOLLINGSWORTH HAS REMAINED DRAINING CLEAR, YELLOW URINE. PATIENT TITRATED OFF OF INSULIN DRIP AND IS NOW ON LONG ACTING INSULIN AND DAVID INSULIN. FAMILY IN VISITING WITH PATIENT AT THIS TIME. NO COMPLAINTS. PATIENT WILL BE GOING TO MEDICAL FLOOR, ROOM 359.
--- NOTE | 2019-02-08 14:13 | NUR ---
PATIENT TRANSFERRED TO ROOM 359 BY MANUFACTURING FINANCE MANAGER. PATIENT'S , KITA, TOOK BELONGINGS UP TO PATIENT'S ROOM.
--- NOTE | 2019-02-08 14:20 | NUR ---
ARRIVES VIA W/C W/3 RELATIVES. LUNGS CLEAR. ALERT AND ORIENTED. IV RT HAND. NO TELE. TALKATIVE. PLEASANT. COOPERATIVE. USES STEP STOOL TO GET FROM BED TO FLOOR ETC. WCTM
--- NOTE | 2019-02-08 17:02 | NUR ---
S.O. UNSURE OF EXACT MEDS PATIENT TAKES, BUT SURE OF INSULINS. REVIEW D'C INSTRUCTIONS. GIVEN MEDIUM SCALE FOR FAST ACTING INSULIN. ADVISED [facility] WILL CALL WITH F/U APPT AND CAN REVIEW MEDS. GO OVER DKA AND HOW SERIOUS IT IS. PATIENT WAS IN FEW WEEKS AGO AND IS SURE MEDS HAVE NOT CHANGED. PATIENT SAYS SHE WILL TAKE HER INSULIN INSTRUCTED; WHEREAS, BEFORE THIS SHE WAS TAKING INSULIN TO "HOW SHE FELT." SEEMS VERY ATTENTIVE AND INSTRUCTED ON; INSULINS, CHECKING FEET AND WOUNDS AND GETTING HER IN TO E.R. IF BLD SUGAR OVER 400. STS WILL CHECK BLD SUGAR AC/HS ; WHEREAS, WAS CHECKING MAYBE ONCE A DAY. TO POV W/PHARMACY STOCK CLERK
== END 2019-02-08 17:05 | disposition home or self-care (01) | DRG 637 ==
LOC: ER 10:32 → ICUW 10:33 → ER 13:01 → ICUW 13:01 → MEDS 02-08 14:20
PROVIDERS: Emergency Medicine; Nurse Practitioner Acute Care; ADMIT Internal Medicine
DX: E11.10 Type 2 diabetes mellitus with ketoacidosis without coma (principal); G92 Toxic encephalopathy; E87.1 Hypo-osmolality and hyponatremia; R65.10 Systemic inflammatory response syndrome (SIRS) of non-infectious origin without acute organ dysfunction; Z79.4 Long term (current) use of insulin; Q77.4 Achondroplasia; M19.90 Unspecified osteoarthritis, unspecified site; J44.9 Chronic obstructive pulmonary disease, unspecified; Z86.718 Personal history of other venous thrombosis and embolism; G47.33 Obstructive sleep apnea (adult) (pediatric); F17.210 Nicotine dependence, cigarettes, uncomplicated; G43.909 Migraine, unspecified, not intractable, without status migrainosus
CPT/HCPCS: 0099U; 36415; 36600; 51702; 70450; 71045; 80047; 80048; 80053; 81001; 81025; 82010; 82550; 82803; 82947; 83036; 83735; 83930; 84100; 84145; 85014; 85025; 93005; 93010; 94660; 96361-59; 96374-59; 96375-59; 99285-25; C9113; G0480; J1650; J1815; J2310; J2765; J7030; J7042; J7070

== ENCOUNTER 2020-02-07 11:02 | Observation (INO) | payer OTHER ==
[~2020-02-07] VITALS: Ht 134.6 cm; Wt 84.3 kg
[~2020-02-07 11:02] MED LIST changes: -BASAGLAR K100 UNIT/1 SC; +BASAGLAR K100 UNIT/6 SC; -Humalog100 UNIT/1 SC; +METHADONE IN10 MG/ML PO; +NOVOLOG FL100 UNIT/3 SC
[2020-02-07 12:09] LABS: BASOPHILS ABSOLUTE AUTO 0.06 K/mm3 (0.00-0.23); BASOPHILS PERCENT AUTO 0 % (0-2); EOSINOPHILS PERCENT AUTO 0 % (0-6); Hematocrit 32.8 % (33.0-51.0); Hemoglobin 10.3 g/dL (11.5-16.0); IMMATURE GRAN ABSOLUTE AUTO 0.09 K/mm3 (0.00-0.10); IMMATURE GRAN PERCENT AUTO 1 % (0-1); LYMPHOCYTES ABSOLUTE AUTO 0.51 K/mm3 (0.84-5.20); LYMPHOCYTES PERCENT AUTO 4 % (21-46); MONOCYTES ABSOLUTE AUTO 0.36 K/mm3 (0.16-1.47); MONOCYTES PERCENT AUTO 3 % (4-13); Mean Corpuscular HGB 30.3 pg (26.0-34.0); Mean Corpuscular HGB Conc 31.4 g/dL (31.5-36.5); Mean Corpuscular Volume 97 fL (80-100); Mean Platelet Volume 11.5 fL (9.1-12.4); NEUTROPHILS ABSOLUTE AUTO 13.63 K/mm3 (1.96-9.15); NEUTROPHILS PERCENT AUTO 93 % (41-73); Platelet Count 392 K/mm3 (150-400); RDW Coefficient Variation 12.4 % (11.7-14.2); RDW Standard Deviation 43.7 fL (35.1-46.3); White Blood Cell Count 14.65 K/mm3 (4.00-11.30)
[2020-02-07 12:27] LABS: Albumin, Blood 2.5 g/dL (3.4-5.0); Albumin/Globulin Ratio 0.6 (0.8-1.8); Beta-hydroxybutyrate 32.9 mg/dL (0.2-2.8); Bilirubin, Total 0.4 mg/dL (0.1-1.0); Bun/Creatinine Ratio 20.8 (12.0-20.0); Calcium, Blood 8.3 mg/dL (8.5-10.1); Creatinine, Blood 1.06 mg/dL (0.40-1.00); Globulin, Blood 4.4 g/dL (2.2-4.0); Total Protein, Blood 6.9 g/dL (6.4-8.2)
[2020-02-07 15:16] LABS: Source, Urine Clean Catch
[2020-02-07 15:22] LABS: Bilirubin, Urine Neg (Neg); Blood, Urine 4+ (Neg); Glucose Qualitative, Urine 4+ (Neg); Ketones, Urine 3+ (Neg); Leukocyte Esterase, Urine Neg (Neg); Nitrite, Urine Neg (Neg); Protein, Urine 4+ (Neg); Specific Gravity, Urine 1.015 (1.003-1.022); Urobilinogen, Urine NORM (Normal)
[2020-02-07 15:40] LABS: Color, Urine Yellow (P-Yellow)
[2020-02-07 15:41] LABS: Appearance, Urine Clear (Clear)
[2020-02-07 15:42] LABS: Granular Casts 0-2 /lpf (0)
[2020-02-07 15:43] LABS: Bacteria Few /hpf; Mucus Light (0-Heavy); Squamous Epithelial Cells Mod /hpf (Few); White Blood Cells, Urine 0-2 /hpf (0-5)
--- NOTE | 2020-02-07 19:39 | NUR ---
SHIFT SUMMARY: ASSUMED CARE OF PATIENT UPON HER ARRIVAL TO MEDICAL FLOOR FROM ED AT 1830. A&O X 3, A LITTLE SLEEPY. DENIES PAIN, SOB. REPORT GIVEN TO ONCOMING RN.
--- NOTE | 2020-02-07 22:14 | NUR ---
HS CBG BLOOD SUGAR @443 TONIGHT, NOTIFIED PAULO Davison @2100. SHE ORDERED A 1X DOSE OF SS HUMALOG ALONG c SCHEDULED 25U SEMGLEE. PTS BLOOD SUGARS HAVE BEEN TRENDING T/O 400'S ALL DAY. PT VERY FATIGUED, DIAPHORETIC, BP ELEVATED @172/80, REST OF VITALS STABLE. PAULO Davison STATED TO KEEP EYE ON BP FOR NOW. WCTM PT.
--- NOTE | 2020-02-08 00:16 | NUR ---
SPO2 RT PLACED CONT PULSE OX ON PT & SPO2 LOW 50'S PER RT, THEREFORE PT PLACED ON 5L O2 VIA NC. PT STATES SHE DOES NOT WEAR A CPAP @HS. PULSE OX ALARMING, PT SOUND ASLEEP SNORING, SPO2 LOW 80'S ON RA, PT PULLED NC OFF. REPLACED NC & SPO2 RAPIDLY INCREASED TO 96% DECREASED O2 TO 4L. WCTM.
[2020-02-08 01:40] LABS: U Amphetamine Screen Not Detected; U Barbituate Screen Not Detected; U Benzodiazapine Screen Not Detected; U Buprenorphine Screen Not Detected; U Cannabinoids Screen DETECTED; U Cocaine Screen Not Detected; U Methadone Screen DETECTED; U Methamphetamine Screen Not Detected; U Opiates Screen Not Detected; U Oxycodone Screen Not Detected; U Phencyclidine Screen Not Detected; U Propoxyphene Screen Not Detected
[2020-02-08 05:11] LABS: BASOPHILS ABSOLUTE AUTO 0.07 K/mm3 (0.00-0.23); BASOPHILS PERCENT AUTO 1 % (0-2); EOSINOPHILS ABSOLUTE AUTO 0.14 K/mm3 (0.00-0.68); EOSINOPHILS PERCENT AUTO 1 % (0-6); Hematocrit 33.2 % (33.0-51.0); Hemoglobin 10.5 g/dL (11.5-16.0); IMMATURE GRAN ABSOLUTE AUTO 0.05 K/mm3 (0.00-0.10); IMMATURE GRAN PERCENT AUTO 0 % (0-1); LYMPHOCYTES ABSOLUTE AUTO 2.09 K/mm3 (0.84-5.20); LYMPHOCYTES PERCENT AUTO 18 % (21-46); MONOCYTES ABSOLUTE AUTO 1.61 K/mm3 (0.16-1.47); MONOCYTES PERCENT AUTO 14 % (4-13); Mean Corpuscular HGB 30.7 pg (26.0-34.0); Mean Corpuscular HGB Conc 31.6 g/dL (31.5-36.5); Mean Corpuscular Volume 97 fL (80-100); Mean Platelet Volume 10.7 fL (9.1-12.4); NEUTROPHILS ABSOLUTE AUTO 7.69 K/mm3 (1.96-9.15); NEUTROPHILS PERCENT AUTO 66 % (41-73); Platelet Count 393 K/mm3 (150-400); RDW Coefficient Variation 12.6 % (11.7-14.2); RDW Standard Deviation 45.1 fL (35.1-46.3); Red Blood Cell Count 3.42 M/mm3 (3.80-5.20); White Blood Cell Count 11.65 K/mm3 (4.00-11.30)
--- NOTE | 2020-02-08 05:17 | NUR ---
SHIFT SUMMARY PT VERY LETHARGIC, FALLING ASLEEP BEFORE ANSWERING QUESTIONS DURING ASSESSMENT LAST NIGHT. THIS AM PT IS ALERT/AWAKE. AOX4. FOLLOWING SIMPLE DIRECTIONS. HS CBG ELEVATED, READ PREVIOUS NOTE, DECREASED TO 361 AFTER INSULIN COVERAGE PROVIDED. BP ELEVATED LAST NIGHT @172/80, HOWEVER VITALS STABLE THIS AM. SPO2 DROPS TO LOW 80'S DURING SOUND SLEEP c SNORING, PT CURRENTLY ON 3L O2 & MAINTAINING >90% SPO2. DENIES N/V, DYSPNEA. REPORTS 10/10 HEADACHE THIS AM, GAVE TYLENOL, PAIN DROPPED TO 4/10. 1 ASSIST TO BSC. REPORTS "HARD, PAINFUL CALUS ON BOTTOM OF FOOT, NO OPEN SKIN-APPLIED ICE. CALL LIGHT IN REACH. WCTM.
[2020-02-08 05:31] LABS: Albumin, Blood 2.5 g/dL (3.4-5.0); Albumin/Globulin Ratio 0.6 (0.8-1.8); Bilirubin, Total 0.3 mg/dL (0.1-1.0); Calcium, Blood 8.6 mg/dL (8.5-10.1); Creatinine, Blood 1.3 mg/dL (0.40-1.00); Globulin, Blood 4.1 g/dL (2.2-4.0); Potassium, Blood 4.1 mmol/L (3.5-5.5); Total Protein, Blood 6.6 g/dL (6.4-8.2)
--- NOTE | 2020-02-08 14:28 | NUR ---
PATIENT'S BROUGHT HER A DOSE OF HER METHADONE FROM HOME AND GAVE IT TO HER. EDUCATED PT THAT IT IS AGAINST HOSPITAL POLICY TO BRING MEDICATIONS FROM OUTSIDE AND ADMINISTER THEM. NOTIFIED DR. JOSUE, NO NEW ORDERS.
--- NOTE | 2020-02-08 17:39 | NUR ---
SHIFT SUMMARY: NO ACUTE EVENTS. A&O X 3, COOPERATIVE. C/O HEADACHE AND L FOOT PAIN; MEDICATED PER [facility] WITH ADEQUATE RELIEF. HAD CT SCAN OF L FOOT AND HEAD. SLEPT MOST OF THE MORNING. TOOK SHOWER WITH ASSISTANCE. VISITED THIS AFTERNOON. PLAN IS TO D/C HOME THIS EVENING WHEN CAN PICK HER UP.
== END 2020-02-08 18:51 | disposition home or self-care (01) ==
LOC: ER 11:02 → MEDS 18:24
PROVIDERS: Emergency Medicine; ADMIT Internal Medicine
DX: G93.41 Metabolic encephalopathy (principal); E11.65 Type 2 diabetes mellitus with hyperglycemia; G43.909 Migraine, unspecified, not intractable, without status migrainosus; G47.33 Obstructive sleep apnea (adult) (pediatric); J44.9 Chronic obstructive pulmonary disease, unspecified; Q77.4 Achondroplasia; K59.00 Constipation, unspecified; D72.829 Elevated white blood cell count, unspecified; E66.9 Obesity, unspecified; Z68.37 Body mass index [BMI] 37.0-37.9, adult; Z86.718 Personal history of other venous thrombosis and embolism; Z79.01 Long term (current) use of anticoagulants; Z88.0 Allergy status to penicillin; Z88.1 Allergy status to other antibiotic agents; Z88.2 Allergy status to sulfonamides; Z79.4 Long term (current) use of insulin; Z79.899 Other long term (current) drug therapy; Z87.891 Personal history of nicotine dependence; Z23 Encounter for immunization; Z51.5 Encounter for palliative care
CPT/HCPCS: 36415; 70450; 71045; 73700; 74176; 80053; 81001; 81025; 82010; 82947; 83605; 83690; 83735; 85025; 94760; A9270; A9270-GY; J1650; J1815; J1885; J2405; J7030; J7120; Q2038

== ENCOUNTER 2020-02-15 18:21 | Emergency (ER) | payer OTHER ==
[~2020-02-15] VITALS: Ht 121.9 cm; Wt 56.7 kg
== END 2020-02-15 18:49 | disposition home or self-care (01) ==
LOC: ER 18:21
DX: L84 Corns and callosities (principal); E11.9 Type 2 diabetes mellitus without complications; J44.9 Chronic obstructive pulmonary disease, unspecified; Z87.891 Personal history of nicotine dependence; Z79.4 Long term (current) use of insulin; Z88.1 Allergy status to other antibiotic agents; Z88.2 Allergy status to sulfonamides; Z88.0 Allergy status to penicillin; Z86.718 Personal history of other venous thrombosis and embolism
CPT/HCPCS: 99282

== ENCOUNTER 2020-03-30 17:52 | Emergency (ER) | payer OTHER ==
[~2020-03-30] VITALS: Ht 121.9 cm; Wt 56.7 kg
[2020-03-30 19:18] LABS: BASOPHILS ABSOLUTE AUTO 0.05 K/mm3 (0.00-0.23); BASOPHILS PERCENT AUTO 0 % (0-2); EOSINOPHILS ABSOLUTE AUTO 0.01 K/mm3 (0.00-0.68); EOSINOPHILS PERCENT AUTO 0 % (0-6); Hematocrit 31.7 % (33.0-51.0); Hemoglobin 9.9 g/dL (11.5-16.0); IMMATURE GRAN ABSOLUTE AUTO 0.12 K/mm3 (0.00-0.10); IMMATURE GRAN PERCENT AUTO 1 % (0-1); LYMPHOCYTES ABSOLUTE AUTO 0.88 K/mm3 (0.84-5.20); LYMPHOCYTES PERCENT AUTO 6 % (21-46); MONOCYTES ABSOLUTE AUTO 1.93 K/mm3 (0.16-1.47); MONOCYTES PERCENT AUTO 13 % (4-13); Mean Corpuscular HGB 30.2 pg (26.0-34.0); Mean Corpuscular HGB Conc 31.2 g/dL (31.5-36.5); Mean Corpuscular Volume 97 fL (80-100); Mean Platelet Volume 10.7 fL (9.1-12.4); NEUTROPHILS ABSOLUTE AUTO 12.33 K/mm3 (1.96-9.15); NEUTROPHILS PERCENT AUTO 81 % (41-73); Platelet Count 379 K/mm3 (150-400); RDW Standard Deviation 46.4 fL (35.1-46.3); Red Blood Cell Count 3.28 M/mm3 (3.80-5.20); White Blood Cell Count 15.32 K/mm3 (4.00-11.30)
[2020-03-30 19:42] LABS: Albumin, Blood 2.3 g/dL (3.4-5.0); Albumin/Globulin Ratio 0.5 (0.8-1.8); Bilirubin, Total 0.4 mg/dL (0.1-1.0); Bun/Creatinine Ratio 20.5 (12.0-20.0); Creatinine, Blood 1.56 mg/dL (0.40-1.00); Potassium, Blood 4.5 mmol/L (3.5-5.5); Total Protein, Blood 7.3 g/dL (6.4-8.2)
[2020-03-31] MEDS ORDERED: METHADONE IN10 MG/ML PO (19:31)
[2020-03-31] MEDS ORDERED: CEFD300 PO (22:27)
[2020-03-31] MEDS ORDERED: ONDA4ODT SL (22:27)
[2020-06-27] MEDS ORDERED: ONDA4ODT MM (14:45)
[2020-06-27] MEDS ORDERED: AMLO5 PO (14:45)
[2020-06-27] MEDS ORDERED: ALBU2.5V5 INH (14:45)
[2020-06-27] MEDS ORDERED: PANT20 PO (14:46)
== END 2020-03-31 00:10 | disposition left against medical advice (07) ==
LOC: ER 17:52
PROVIDERS: Student in an Organized Health Care Education/Training Program
DX: R11.2 Nausea with vomiting, unspecified (principal); R19.7 Diarrhea, unspecified; Z53.21 Procedure and treatment not carried out due to patient leaving prior to being seen by health care provider
CPT/HCPCS: 36415; 80053; 83690; 85025

== ENCOUNTER 2020-03-31 18:33 | Emergency (ER) | payer OTHER ==
[~2020-03-31] VITALS: Ht 121.9 cm; Wt 56.7 kg
[2020-03-31 19:01] LABS: BASOPHILS ABSOLUTE AUTO 0.05 K/mm3 (0.00-0.23); BASOPHILS PERCENT AUTO 0 % (0-2); EOSINOPHILS ABSOLUTE AUTO 0.02 K/mm3 (0.00-0.68); EOSINOPHILS PERCENT AUTO 0 % (0-6); Hematocrit 30.5 % (33.0-51.0); Hemoglobin 9.8 g/dL (11.5-16.0); IMMATURE GRAN ABSOLUTE AUTO 0.13 K/mm3 (0.00-0.10); IMMATURE GRAN PERCENT AUTO 1 % (0-1); LYMPHOCYTES ABSOLUTE AUTO 1.16 K/mm3 (0.84-5.20); LYMPHOCYTES PERCENT AUTO 6 % (21-46); MONOCYTES ABSOLUTE AUTO 2.77 K/mm3 (0.16-1.47); MONOCYTES PERCENT AUTO 15 % (4-13); Mean Corpuscular HGB 30.2 pg (26.0-34.0); Mean Corpuscular HGB Conc 32.1 g/dL (31.5-36.5); Mean Corpuscular Volume 94 fL (80-100); Mean Platelet Volume 10.4 fL (9.1-12.4); NEUTROPHILS ABSOLUTE AUTO 13.94 K/mm3 (1.96-9.15); NEUTROPHILS PERCENT AUTO 77 % (41-73); Platelet Count 406 K/mm3 (150-400); RDW Coefficient Variation 12.7 % (11.7-14.2); RDW Standard Deviation 43.8 fL (35.1-46.3); Red Blood Cell Count 3.24 M/mm3 (3.80-5.20); White Blood Cell Count 18.07 K/mm3 (4.00-11.30)
[2020-03-31 19:25] LABS: Albumin, Blood 2.4 g/dL (3.4-5.0); Albumin/Globulin Ratio 0.5 (0.8-1.8); Bilirubin, Total 0.3 mg/dL (0.1-1.0); Bun/Creatinine Ratio 16.2 (12.0-20.0); Calcium, Blood 9.5 mg/dL (8.5-10.1); Creatinine, Blood 1.79 mg/dL (0.40-1.00); Globulin, Blood 5.1 g/dL (2.2-4.0); Potassium, Blood 3.6 mmol/L (3.5-5.5); Total Protein, Blood 7.5 g/dL (6.4-8.2)
[2020-03-31] MEDS ORDERED: METHADONE IN10 MG/ML PO (19:31)
[2020-03-31 20:30] LABS: Source, Urine Clean Catch
[2020-03-31 20:32] LABS: Appearance, Urine Cloudy (Clear); Bilirubin, Urine Neg (Neg); Blood, Urine 4+ (Neg); Color, Urine Yellow (P-Yellow); Glucose Qualitative, Urine 3+ (Neg); Ketones, Urine Neg (Neg); Leukocyte Esterase, Urine 2+ (Neg); Nitrite, Urine Neg (Neg); Protein, Urine 4+ (Neg); Specific Gravity, Urine 1.025 (1.003-1.022); Urobilinogen, Urine NORM (Normal)
[2020-03-31 20:43] LABS: Bacteria Many /hpf; Squamous Epithelial Cells Mod /hpf (Few); White Blood Cells, Urine 25-50 /hpf (0-5)
[2020-03-31 20:45] LABS: Waxy Cast Rare /lpf (0)
[2020-03-31] MEDS ORDERED: CEFD300 PO (22:27)
[2020-03-31] MEDS ORDERED: ONDA4ODT SL (22:27)
[2020-06-27] MEDS ORDERED: ALBU2.5V5 INH (14:45)
[2020-06-27] MEDS ORDERED: ONDA4ODT MM (14:45)
[2020-06-27] MEDS ORDERED: AMLO5 PO (14:45)
[2020-06-27] MEDS ORDERED: PANT20 PO (14:46)
== END 2020-03-31 23:20 | disposition home or self-care (01) ==
LOC: ER 18:33
PROVIDERS: Emergency Medicine; Physician Assistant
DX: R10.32 Left lower quadrant pain (principal); R11.2 Nausea with vomiting, unspecified; E11.22 Type 2 diabetes mellitus with diabetic chronic kidney disease; N18.9 Chronic kidney disease, unspecified; J44.9 Chronic obstructive pulmonary disease, unspecified; Z79.4 Long term (current) use of insulin; Z88.1 Allergy status to other antibiotic agents; Z88.2 Allergy status to sulfonamides; Z88.0 Allergy status to penicillin; Z86.718 Personal history of other venous thrombosis and embolism; Z87.891 Personal history of nicotine dependence
CPT/HCPCS: 36415; 71045; 74176; 80053; 81001; 85025; 87077; 87086; 87186; 96361; 96365; 96375; 96376; 99284-25; A9270; J0696; J2405; J7030

== ENCOUNTER 2020-04-02 19:39 | Inpatient (IN) | payer OTHER ==
[~2020-04-02] VITALS: Ht 99.1 cm; Wt 89.0 kg
[~2020-04-02 19:39] MED LIST changes: +CEFD300 PO; +ONDA4ODT SL
[2020-04-02 20:35] LABS: Calcium, Ionized (POC) 1.16 mmol/L (1.10-1.46); Chloride (POC) 86 mmol/L (98-108); Creatinine (POC) 2.6 mg/dL (0.6-1.0); Glucose (ISTAT POC) 558 mg/dL (70-99); Hemoglobin (POC) 13.3 g/dL (12.0-16.0); Potassium (POC) 4.1 mmol/L (3.5-5.5); Sodium (POC) 124 mmol/L (135-148); Total CO2 (POC) 24 mmol/L (21-32)
[2020-04-02 21:08] LABS: BASOPHILS ABSOLUTE AUTO 0.08 K/mm3 (0.00-0.23); BASOPHILS PERCENT AUTO 1 % (0-2); EOSINOPHILS ABSOLUTE AUTO 0.01 K/mm3 (0.00-0.68); EOSINOPHILS PERCENT AUTO 0 % (0-6); Hematocrit 33.6 % (33.0-51.0); Hemoglobin 11.1 g/dL (11.5-16.0); IMMATURE GRAN ABSOLUTE AUTO 0.21 K/mm3 (0.00-0.10); IMMATURE GRAN PERCENT AUTO 2 % (0-1); LYMPHOCYTES ABSOLUTE AUTO 1.17 K/mm3 (0.84-5.20); LYMPHOCYTES PERCENT AUTO 9 % (21-46); MONOCYTES ABSOLUTE AUTO 0.82 K/mm3 (0.16-1.47); MONOCYTES PERCENT AUTO 6 % (4-13); Mean Corpuscular HGB 29.7 pg (26.0-34.0); Mean Corpuscular Volume 90 fL (80-100); Mean Platelet Volume 10.6 fL (9.1-12.4); NEUTROPHILS ABSOLUTE AUTO 11.13 K/mm3 (1.96-9.15); NEUTROPHILS PERCENT AUTO 83 % (41-73); Platelet Count 465 K/mm3 (150-400); RDW Coefficient Variation 12.3 % (11.7-14.2); RDW Standard Deviation 40.2 fL (35.1-46.3); Red Blood Cell Count 3.74 M/mm3 (3.80-5.20); White Blood Cell Count 13.42 K/mm3 (4.00-11.30)
[2020-04-02 21:32] LABS: Albumin, Blood 2.3 g/dL (3.4-5.0); Albumin/Globulin Ratio 0.5 (0.8-1.8); Alk Phos 282 U/L (50-136); Anion Gap 14 mmol/L (6-16); Bilirubin, Total 0.4 mg/dL (0.1-1.0); Blood Urea Nitrogen 61 mg/dL (8-24); Bun/Creatinine Ratio 23.2 (12.0-20.0); CO2, Blood 23 mmol/L (21-32); Calcium, Blood 9.2 mg/dL (8.5-10.1); Chloride, Blood 88 mmol/L (98-108); Creatinine, Blood 2.63 mg/dL (0.40-1.00); Globulin, Blood 4.8 g/dL (2.2-4.0); Glomerular Filtration Rate 21 (60-); Glucose, Blood 520 mg/dL (70-99); Sodium, Blood 125 mmol/L (136-145); Total Protein, Blood 7.1 g/dL (6.4-8.2)
[2020-04-02 21:36] LABS: Alanine Aminotransfer (ALT/SGP 1544 U/L (12-78); Aspartate Aminotrans (AST/SGOT 1498 U/L (12-37)
[2020-04-02 23:36] LABS: Influenza A, PCR Negative (NEGATIVE); Influenza B, PCR Negative (NEGATIVE); Resp Syncytial Virus, PCR Negative (NEGATIVE); SARS-Cov-2 (COVID-19) PCR, MMC Negative (NEGATIVE)
--- NOTE | 2020-04-02 23:49 | NUR ---
ADMIT ARRIVED TO FLOOR @2323, 4 PER SLIDE TRANSFER. PT VERY LETHARGIC, OPENS EYES TO VERBAL STIMULI BUT UNABLE TO ANSWER ANYTHING CORRECTLY OR FOLLOW SIMPLE DIRECTIONS. HAS NONSENSICAL SLURRED SPEECH & FALLS ASLEEP DURING TRYING TO TALK. BED ALARM IN PLACE & CALL LIGHT IN REACH. WILL MONITOR.
[2020-04-03 01:17] LABS: International Normalized Ratio 1.15; Prothrombin Time Results 12.2 Sec (9.7-11.5)
[2020-04-03 02:36] LABS: BASOPHILS ABSOLUTE AUTO 0.06 K/mm3 (0.00-0.23); BASOPHILS PERCENT AUTO 0 % (0-2); EOSINOPHILS ABSOLUTE AUTO 0.07 K/mm3 (0.00-0.68); EOSINOPHILS PERCENT AUTO 1 % (0-6); Hematocrit 29.1 % (33.0-51.0); Hemoglobin 9.8 g/dL (11.5-16.0); IMMATURE GRAN ABSOLUTE AUTO 0.35 K/mm3 (0.00-0.10); IMMATURE GRAN PERCENT AUTO 2 % (0-1); LYMPHOCYTES ABSOLUTE AUTO 1.92 K/mm3 (0.84-5.20); LYMPHOCYTES PERCENT AUTO 13 % (21-46); MONOCYTES ABSOLUTE AUTO 1.63 K/mm3 (0.16-1.47); MONOCYTES PERCENT AUTO 11 % (4-13); Mean Corpuscular HGB Conc 33.7 g/dL (31.5-36.5); Mean Corpuscular Volume 92 fL (80-100); Mean Platelet Volume 10.3 fL (9.1-12.4); NEUTROPHILS ABSOLUTE AUTO 10.71 K/mm3 (1.96-9.15); NEUTROPHILS PERCENT AUTO 73 % (41-73); Platelet Count 438 K/mm3 (150-400); RDW Coefficient Variation 12.4 % (11.7-14.2); RDW Standard Deviation 41.9 fL (35.1-46.3); Red Blood Cell Count 3.16 M/mm3 (3.80-5.20); White Blood Cell Count 14.74 K/mm3 (4.00-11.30)
[2020-04-03 03:11] LABS: U Amphetamine Screen Not Detected; U Barbituate Screen Not Detected; U Benzodiazapine Screen Not Detected; U Buprenorphine Screen Not Detected; U Cannabinoids Screen DETECTED; U Cocaine Screen Not Detected; U Methadone Screen DETECTED; U Methamphetamine Screen Not Detected; U Opiates Screen Not Detected; U Oxycodone Screen Not Detected; U Phencyclidine Screen Not Detected; U Propoxyphene Screen Not Detected
[2020-04-03 03:22] LABS: Albumin, Blood 1.8 g/dL (3.4-5.0); Albumin/Globulin Ratio 0.4 (0.8-1.8); Bilirubin, Total 0.2 mg/dL (0.1-1.0); Calcium, Blood 8.2 mg/dL (8.5-10.1); Creatinine, Blood 2.46 mg/dL (0.40-1.00); Potassium, Blood 3.4 mmol/L (3.5-5.5); Total Protein, Blood 5.8 g/dL (6.4-8.2)
--- NOTE | 2020-04-03 06:03 | NUR ---
SHIFT SUMMARY AROUND 0345 I ATTEMPTED TO WAKE PT & SHE WOULD NOT WAKE TO LOUD VERBAL STIMULI OR HARD STERNAL RUBBING, WOULD ONLY GRIMACE/MOAN IN DISCOMFORT & REPOSITION HERSELF. MANNUALLY OPENED EYES & BILAT PUPILS STARED BLANKLY & WERE FIXED, ROUGHLY 6MM. INFORMED DR SHEIKH OF CHANGE, SHE ORDERED STRAIGHT CATH TO COLLECT URINE TOX SCREEN & AN AMMONIA LAB. WHILE STRAIGHT CATHING PT BECAME MORE ALERT & OPENED EYES, STILL TALKING NONSENSICAL & DISORIENTED. PT DOESN'T ANSWER ANY QUESTIONS CORRECTLY OR FOLLOW SIMPLE DIRECTIONS. NONSENSICAL SPEECH WHEN AWAKE. VSS. TELE NSR @83. 0600 CBG @105, PT HASN'T HAD ANYTHING PO SINCE SHES BEEN LETHARGIC. NO S/S OF N/V OR PAIN. DOES SNORE LOUDLY c PERIODS OF APNEA-HX MANDY, SPO2 >90% ON RA. LUNGS DIM c EXP WHEEZES IN BASES. RECEIVING NS @150ML/HR & IV ANTIBIOTICS FOR SEPSIS R/T UTI. BED ALARM ON FOR SAFETY SINCE PT CONFUSED & IMPULSIVE. WILL MONITOR UNTIL DAY NURSE ASSUMES CARE.
--- NOTE | 2020-04-03 14:37 | NUR ---
PT SPOUSE CALLED- RECIEVED A CALL FROM SUPERVISOR POULTRY PROCESSING. TRIED TO CALL LEFT A MESSAGE WITH CALL BACK INFO AND VISITING HOURS.
--- NOTE | 2020-04-03 18:13 | NUR ---
SHIFT SUMMARY- PT WAS OBTUNDED WHEN SHE ARRIVED AND COULD NOT BE WAKED BY STAFF. SHE WOKE AT BREAKFAST AND WAS SPEAKING IN CLEAR SCENTENCES ATE SOME FOOD AND FELL ASLEEP. PT WAS ABLE TO WAKE A LITTLE AFTER THAT. SHE RECIEVED A BED BATH THROUGH WICH SHE ONLY MUMBLED AND MOANED. STAFF COULD NOT UNDERSTAND HER. PT WOKE THIS EVENING AND ATE SOME DINNER. BUT IS ALREADY SLEEPING AGAIN. DR HAD FLUID RATE REDUCED TO 75ML/HR THIS MORNING FOR MAINTENANACE FLUIDS. PT CURRENTLY ON CONT BIOX HER SATS FLUCTUATE WHILE SHE SLEEPS. AT ONE POINT HER SATS DROPPED TO THE 70'S PLACED THE PT ON 2L O2 VIA NC SATS HAVE MAINTAINED GREATER THAN 88%. RT AWARE.
--- NOTE | 2020-04-04 04:28 | NUR ---
SHIFT SUMMARY CONT PULSE OX HAS DROPPED 3X SINCE 244 TO 44-50% ON 2L O2 c PERIODS OF APNEA. PULSE OX HAS GOOD WAVE LENGTH, PT WARM, DIAPHORETIC, SPO2 INCREASES TO 92-97% WITHIN MINUTES OF STIMULATING PT AWAKE. HX MANDY. INFORMED DR SHERMAN & SHE ORDERED CPAP FOR PT, INFORMED RT. PT AOX2-COULD STATE SELF & PLACE TONIGHT, MORE AWAKE/ALERT THEN PREVIOUS NIGHT. STILL VERY DROWSY, CONFUSED & HAVING NONSENSICAL SPEECH @TIMES. UNABLE TO FOLLOW SIMPLE DIRECTIONS. TELE NSR @83. LUNGS DIM c EXP WHEEZES IN BASES. PT HAS BEEN INCONTINENT OF URINE. CALL LIGHT & BED ALARM IN PLACE. WILL MONITOR UNTIL DAY SHIFT ASSUMES CARE.
[2020-04-04 04:55] LABS: Hematocrit 29.4 % (33.0-51.0); Hemoglobin 9.2 g/dL (11.5-16.0); Mean Corpuscular HGB Conc 31.3 g/dL (31.5-36.5); Mean Corpuscular Volume 93 fL (80-100); NRBC ABSOLUTE 0.02 K/mm3 (0.00-0.02); NRBC Auto 0.1 /100 WBC (0.0-0.2); Platelet Count 437 K/mm3 (150-400); RDW Coefficient Variation 12.7 % (11.7-14.2); RDW Standard Deviation 43.3 fL (35.1-46.3); Red Blood Cell Count 3.17 M/mm3 (3.80-5.20); White Blood Cell Count 13.66 K/mm3 (4.00-11.30)
[2020-04-04 05:17] LABS: Albumin, Blood 1.7 g/dL (3.4-5.0); Albumin/Globulin Ratio 0.4 (0.8-1.8); Bilirubin, Total 0.3 mg/dL (0.1-1.0); Bun/Creatinine Ratio 23.3 (12.0-20.0); Calcium, Blood 8.2 mg/dL (8.5-10.1); Creatinine, Blood 1.93 mg/dL (0.40-1.00); Globulin, Blood 3.9 g/dL (2.2-4.0); Potassium, Blood 3.6 mmol/L (3.5-5.5); Total Protein, Blood 5.6 g/dL (6.4-8.2)
[2020-04-04 11:53] LABS: PCO2 Arterial 52.1 mmHg (35-45); PO2 Arterial 114 mmHg (80-100); pH Blood Arterial 7.33 (7.35-7.45)
--- NOTE | 2020-04-04 11:53 | NUR ---
CALLED DR PACE- SPOKE TO RT EMMANUEL. PT PLACED ON CPAP LAST NIGHT WITH O2 BLEED IN OF 3L TO MAINTAIN SATS. PT HAS REMAINED LETHARGIC THIS MORNING NOT WAKING FOR BREAKFAST. EYES OPEN TO SOUND AND SHAKING THE PT BUT SHE DOES NOT SPEAK, SOME MOANS BUT NO VERBAL RESPONSE. RT SUGGESTED AN ABG. CALLED DR PACE AND RECIEVED AN ORDER FOR ABG. AFTER RT LEFT AND PT WENT BACK TO SLEEP BIOX WAS ALARMING. GOOD WAVEFORM WAS SEEN SATS 79%. SHOOK THE PT AND INSTRUCTED HER TO TAKE A BREATH AND HER SATS INCREASED TO THE 90'S.
--- NOTE | 2020-04-04 12:05 | NUR ---
CALLED DR PACE- ABG RESULTS ARE BACK RECOMENDATION FROM RT IS TO DECREASE O2 BLEED IN AND PLACE THE PT ON BIPAP WITH A BACK UP RESPIRATORY RATE. CALLED DR PACE WITH THE RESULTS AND RECIEVED OK FOR BIPAP WITH BACKUP RATE. RT AT THE BEDSIDE PLACING THE PT ON BIPAP NOW.
--- NOTE | 2020-04-04 12:33 | NUR ---
CALLED DR RENNY GRIMES ALARMING ON THE SMALLER BIPAP RT RECOMENDS TRANSFER AND LARGER BIPAP. RECIEVED OK FOR TRANSFER TO PCU. PCU BED 11 ASSIGNED. CALLED RN TO GIVE REPORT AWAITING A CALL BACK. RT AWARE OF THE TRANSFER AND IS COMMUNICATING WITH PCU RT.
--- NOTE | 2020-04-04 13:00 | NUR ---
TRANSFER NOTE- ATTEMPTED TO WAKE THE PT EYES OPENED BUT NO VERBAL RESPONSE HAS BEEN HER USUAL. RT EMMANUEL CAME TO ASSIST WITH THE TRANSFER AND THE PT BECAME A BIT MORE ACTIVE MUMBLING A BIT, WHEN RN AND RT ENTERED THE ELEVATOR WITH THE PT SHE BECAME ALERT AND BEGAN SPEAKING CLEARLY WITH THE BIPAP IN PLACE. ASKING WHERE WER WERE GOING AND WHO HAD HER DAUGHTER. PT C/O BEING HOT AND HER HEAD ITCHING. UPON ARRIVING IN PCU ASSESSED THE PT HEAD AND FOUND THAT SHE HAD WHAT APPEARED TO BE HEAD LICE, FISHING ROD MARKER WILL NOTIFY THE DR. CALLED THE PT SPOUSE HE IS AWARE OF THE TRANSFER AND THAT THE PT IS ACTUALLY MORE ALERT AT THIS TIME. THIS IS THE MOST ALERT THE PT HAS BEEN SINCE ARRIVAL ON MEDICAL FLOOR. PT HAD BEEN ON THE BIPAP FOR ABOUT AN HOUR OR SO PRIOR TO THE TRANSFER.
--- NOTE | 2020-04-04 15:12 | NUR ---
PT ARRIVED IN THE UNIT WAS TRANSFERRED FROM MEDICAL FLR, BEDSIDE REPORT RECEIVED FROM AIDA BERRY. PT WAS ON BIPAP UPON ARRIVAL WITH RT AT BEDSIDE. PT WAS ALERT AND AWAKE DURING THE TRANSFER AND IS ACTUALLY THE FISRT TIME SHE'S MORE ALERT CLOSE TO HER BASELINE SINCE ADMISSION PER REPORT FROM RN. PT WAS ABLE TO STATE NAME AND , AWARE OF SURROUNDINGS, KNOWS WHERE SHE'S AT, DISORIENTED TO TIME AND DATE. SOMETIMES REPEATS HERSELF IN A CONVERSATION. VITALS STABLE, SATS ABOVE 95% ON BIPAP. BREATHING EVEN AND UNLABORED RR 18. 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 NS RUNNING AT 75MLS/HR. PTWAS C/O ITCHINESS ON HEAD NOTICED THAT PT HAS LICE/KNITS WITH HER DREAD LOCK HAIR ORDER RECEIVED FOR LICE TREATMENT BUT PT REFUSED TO GET HER HAIR CUT, PT STATED SHE HAS HER OWN TX AT HOME SPECIFICALLY FOR DREAD LOCK HAIRS, TO BRING IN THE TX. PT IS CURRENTLY NOW ON 4L OF O2 SATS IS 98%, PT REQUESTED TO STAY ON NASAL CANNULA UNTIL COMES AND VISITS HER AND WAIT TIL SHE FINISHES HER LUNCH. PT IN BED RESTING HAIR CAP ON PT, WAS PUT ON CONTACT ISOLATION FOR LICE INFECTION. ABLT TO MAKE NEEDS KNOWN, CALL LIGHTS IN REACH WILL MONITOR
[2020-04-04 18:31] LABS: Base Excess Venous 2.9 mmol/L; Bicarbonate Venous 26.9 mmol/L (24.0-30.0); PCO2 Venous 35.3 mmHg (38-42); pH Blood Venous 7.48 (7.34-7.37)
--- NOTE | 2020-04-04 18:43 | NUR ---
CAME IN 30MINS BEFORE THE END OF VISITING HOURS AND WAS IRRATE, NON STOP TALKING, KICKING THINGS WHILE WALKING PACING AROUND ROOM, WOULD NOT LET THIS RN ANSWER HIS QUESTION TOLD THIS RN TO LEAVE HIM AND THE PT ALONE CAUSE HE WAS TOO EMBARASSED THAT PT WAS INFECTED WITH LICE AND WOULD LIKE SOMEBODY TO EXPLAIN TO HIM WHAT'S GOING ON WITH THE PT BUT WOULD NOT STOP TALKING TO LISTEN. CHARGE NURSE MADE AWARE, DR MANLEY CAME IN THE ROOM TO TALK TO THE PT, TO EXPLAIN PT'S CONDITION, PT MADE AWARE THAT VISITING HOURS IS DONE AND LEFT 15 MINS AFTER 6PM. ALSO STARTED DOING THE LICE TREATMENT FOR THE PT THAT IS SPECIFICALLY FOR DREAD LOCKS HAIR. WILL REPORT TO STREET PHOTOGRAPHER NURSE
--- NOTE | 2020-04-05 00:20 | NUR ---
PROVIDER DR EISENBERG CALLED REGARDING PT'S BP OF 211 SBP. UPDATED OF THE THE FACT THAT THERE WERE NO BP CONTROL MEDICATIONS IN [facility]. ALSO UPDATED THAT PT TAKES METHADONE 160MGS DAILY AND THAT THE PATIENT HAD NOT HAD ANY SINCE ADMISSION 2 DAYS AGO. TOLD THIS RN BELIEVED SOME OF HIGH BLOOD PRESSURE WAS DUE TO PT'S BASELINE SBP 160'S BUT ALSO THAT THE PATIENT WAS POSSIBLY BEGINNING METHADONE WITHDRAWAL. ORDERS HYDRALZINE 10MG PRN. DR ASKED IF SHE WOULD BE WILLING TO GIVE DOSE OF METHADONE, STATED TO RESERVE THAT DECISION FOR THE DAY HOSPITALIST.
--- NOTE | 2020-04-05 05:25 | NUR ---
SHIFT SUMMARY BEGINNING OF SHIFT, SPOUSE HAD PLACED HOME LICE MOUSSE IN HAIR AND HAD RINSED. IT WAS FOUND THAT THERE WERE MANY LIVE LICE STILL/ PT ASKING FOR ANOTHER TREATMENT. ANOPTHER TREATMENT COMPLETED. PCU TECHS RINSED HAIR BEST THEY COULD DUE TO PT NOT WANTING DREADLOCKS COMBED OUT OR CUT. PT REMAINS IN ISOLATION, LICE STILL PRESENT. PT AXO BUT STILL LETHARGIC AT TIMES. IN SR. BP HYPERTENSIVE AT BEGINNING OF SHIFT BUT HAS DECREASED TO WNL TOWARDS END. PT WAS ON SUPPLEMENTAL O2 AT BEGINNING OF SHIFT, CURRENTLY ON RA WITH SPO2 >92%. PT HAS BEEN RESTING FOR MOST OF SHIFT. PT TOLD TRANSPORTATION SOLUTIONS MANAGER, "YOU HAVE ONE CHANCE TO POKE", TRANSPORTATION SOLUTIONS MANAGER MISSED AND PT HAS SUBSEQUENTLY REFUSED AM LABS. WILL RETRY LATER. OTHERWISE, PT QUIET IN ROOM. BED ALARM IN PLACE. HAS NOT HAD ANY EMESIS EPISODE SINCE ZOFRAN ADMINISTRATION. WILL CONTINUE TO MONITOR UNTIL SHIFT CHANGE.
[2020-04-05 08:09] LABS: HBSAG SCREEN Negative (Negative); HEP A AB, IGM Negative (Negative); HEP B CORE AB, IGM Negative (Negative); HEP C VIRUS AB 0.2 (0.0-0.9)
[2020-04-05 10:20] LABS: BASOPHILS ABSOLUTE AUTO 0.12 K/mm3 (0.00-0.23); BASOPHILS PERCENT AUTO 1 % (0-2); EOSINOPHILS PERCENT AUTO 0 % (0-6); Hematocrit 31.5 % (33.0-51.0); Hemoglobin 9.9 g/dL (11.5-16.0); IMMATURE GRAN ABSOLUTE AUTO 0.63 K/mm3 (0.00-0.10); IMMATURE GRAN PERCENT AUTO 4 % (0-1); LYMPHOCYTES ABSOLUTE AUTO 0.68 K/mm3 (0.84-5.20); LYMPHOCYTES PERCENT AUTO 5 % (21-46); MONOCYTES ABSOLUTE AUTO 0.62 K/mm3 (0.16-1.47); MONOCYTES PERCENT AUTO 4 % (4-13); Mean Corpuscular HGB 30.3 pg (26.0-34.0); Mean Corpuscular HGB Conc 31.4 g/dL (31.5-36.5); Mean Corpuscular Volume 96 fL (80-100); Mean Platelet Volume 10.3 fL (9.1-12.4); NEUTROPHILS ABSOLUTE AUTO 13.03 K/mm3 (1.96-9.15); NEUTROPHILS PERCENT AUTO 86 % (41-73); NRBC ABSOLUTE 0.02 K/mm3 (0.00-0.02); NRBC Auto 0.1 /100 WBC (0.0-0.2); Platelet Count 466 K/mm3 (150-400); RDW Coefficient Variation 13.3 % (11.7-14.2); RDW Standard Deviation 47.1 fL (35.1-46.3); Red Blood Cell Count 3.27 M/mm3 (3.80-5.20); White Blood Cell Count 15.08 K/mm3 (4.00-11.30)
[2020-04-05 10:33] LABS: Albumin, Blood 1.9 g/dL (3.4-5.0); Albumin/Globulin Ratio 0.4 (0.8-1.8); Bilirubin, Total 0.4 mg/dL (0.1-1.0); Bun/Creatinine Ratio 25.2 (12.0-20.0); Calcium, Blood 8.7 mg/dL (8.5-10.1); Creatinine, Blood 1.43 mg/dL (0.40-1.00); Globulin, Blood 4.3 g/dL (2.2-4.0); Potassium, Blood 3.5 mmol/L (3.5-5.5); Total Protein, Blood 6.2 g/dL (6.4-8.2)
--- NOTE | 2020-04-05 18:22 | NUR ---
SHIFT SUMMARY- PT SLEPT FOR MOST OF THIS SHIFT. SHE WAS CONFUSED AND WAS REPEATING THE SAME QUESTIONS. HER APPETITE WAS POOR THIS SHIFT. SHE HAD SEVERAL INC VOIDS THIS SHIFT. SHE WAS VOMITING THIS MORNING. HER BLOOD PRESSURE WAS ELEVATED THIS SHIFT, DISCUSSED WITH DR. PCAE MEDICATIONS CHANGED. HER BLOOD SUGAR WAS ALSO ELEVATED. MEDICATIONS ADJUSTED. WAS AT BEDSIDE THIS AFTERNOON. HER BED IS IN THE LOW POSITION AND CALL LIGHT IS WITHIN REACH.
--- NOTE | 2020-04-06 05:23 | NUR ---
SHIFT SUMMARY PT WAS ALERT AND CONFUSED AT TIMES T/O THE NIGHT. DIRECTABLE AND FOLLOWS DIRECTIONS APPROPRIATELY, GETS DISORIENTED ABOUT THE TIME AND DAY. BP WAS HYPERTENSIVE 178 DOWN TO 155 SYSTOLIC BY AM. PRN CLONIDINE GIVEN. HR 90'S, PT DENIED ANY CHEST PAIN. O2 SATS >90% ON ROOM AIR, O2 SATS DROP TO 80'S WHEN PT SLEEPING, PT REFUSED CPAP. PT REPORTED BEING NAUSEOUS AND GAGGING BUT DID NOT VOMIT, PRN ZOFRAN GIVEN. PT WAS INCONTINENT OF URINE BUT ABLE TO KNOW WHEN SHE NEEDED TO VOID. BLOOD GLUCOSE IN THE 200'S, NO AM LABS.
--- NOTE | 2020-04-06 10:00 | NUR ---
UPDATE: PT NAUSEOUS THIS AM, HAVING TROUBLE SWALLOWING PO PILLS. ZOFRAN GIVEN AND PO PILLS TAKEN SLOWLY. ELEVATED BP THIS AM. DR. PACE NOTIFIED, AM DOSE OF NORVASC GIVEN. PRN HYDRALAZINE GIVEN THIS AFTERNOON. WILL CONTINUE TO MONITOR BP.
--- NOTE | 2020-04-06 10:11 | NUR ---
UPDATE: PT ALERT AND OREINTED, CONFUSED WHEN DISCUSSING MEDICATIONS AND ASKING REPETATIVE QUESTIONS. EDUCATION PROVIDED. COMPLAINED OF NAUSEA THIS AM. ZOFRAN PROVIDED. WILL CONTINUE TO MONITOR. ON ROOM AIR SATING ABOVE 90%. PT SLEEPING AT THIS TIME.
--- NOTE | 2020-04-06 17:30 | NUR ---
SHIFT SUMMARY PT IS ALERT AND ORIENTED, SLEEPING IN THE MORNING AND MORE ALERT IN THE AFTERNOON. ON ROOM AIR SATING ABOVE 92%. WEARING BIPAP FOR SOME NAPS THROUGHOUT THE DAY. COMPLAINS OF NAUSEA ON AND OFF, GOOD RELIEF WITH IV ZOFRAN. TELE SHOWING SINUS RHYTHM. NORMAL SALINE RUNNING AT 75 ML/HR, IV FLAGYL INFUSED. INCONTINENT AT TIMES, ATTENDS IN PLACE. IN TO VISIT PATIENT THIS EVENING. SEE PREVIOUS NOTES FOR UPDATE ABOUT ELEVATED BLOOD PRESSURE. LAST BLOOD PRESSURE READING 152/83. PT DENIES CHEST PAIN/PRESSURE. WILL CONTINUE TO MONITOR AND REPORT OFF.
[2020-04-07 04:13] LABS: BASOPHILS ABSOLUTE AUTO 0.07 K/mm3 (0.00-0.23); BASOPHILS PERCENT AUTO 1 % (0-2); EOSINOPHILS ABSOLUTE AUTO 0.25 K/mm3 (0.00-0.68); EOSINOPHILS PERCENT AUTO 2 % (0-6); Hematocrit 28.2 % (33.0-51.0); Hemoglobin 8.9 g/dL (11.5-16.0); IMMATURE GRAN ABSOLUTE AUTO 0.39 K/mm3 (0.00-0.10); IMMATURE GRAN PERCENT AUTO 3 % (0-1); LYMPHOCYTES ABSOLUTE AUTO 1.43 K/mm3 (0.84-5.20); LYMPHOCYTES PERCENT AUTO 10 % (21-46); MONOCYTES ABSOLUTE AUTO 1.13 K/mm3 (0.16-1.47); MONOCYTES PERCENT AUTO 8 % (4-13); Mean Corpuscular HGB 30.2 pg (26.0-34.0); Mean Corpuscular HGB Conc 31.6 g/dL (31.5-36.5); Mean Corpuscular Volume 96 fL (80-100); Mean Platelet Volume 9.8 fL (9.1-12.4); NEUTROPHILS ABSOLUTE AUTO 11.17 K/mm3 (1.96-9.15); NEUTROPHILS PERCENT AUTO 77 % (41-73); Platelet Count 398 K/mm3 (150-400); RDW Coefficient Variation 13.8 % (11.7-14.2); RDW Standard Deviation 47.5 fL (35.1-46.3); Red Blood Cell Count 2.95 M/mm3 (3.80-5.20); White Blood Cell Count 14.44 K/mm3 (4.00-11.30)
[2020-04-07 04:32] LABS: Albumin, Blood 1.8 g/dL (3.4-5.0); Albumin/Globulin Ratio 0.5 (0.8-1.8); Bilirubin, Total 0.2 mg/dL (0.1-1.0); Bun/Creatinine Ratio 15.9 (12.0-20.0); Creatinine, Blood 1.13 mg/dL (0.40-1.00); Globulin, Blood 3.7 g/dL (2.2-4.0); Potassium, Blood 3.2 mmol/L (3.5-5.5); Total Protein, Blood 5.5 g/dL (6.4-8.2)
--- NOTE | 2020-04-07 04:55 | NUR ---
SHIFT SUMMARY PT IS MORE ALERT AND ORIENTED THAN PREVIOUS PM SHIFT. PT STATED FEELING TERRIBLE AND HAVING NAUSEA T/O MOST OF THE NIGHT, PRN ZOFRAN GIVEN. BP WAS HYPERTENSIVE UP TO 176/79, PRN ANTIHYPERTENSIVES GIVEN. HR 80-90'S. O2 SATS IN THE 90'S ON ROOM AIR WHEN AWAKE. PT WORE CPAP WHEN SLEEPING, APNEIC PAUSES WITH SATS DOWN INTO THE 80'S. PT HAS BEEN NPO SINCE 0000.
--- NOTE | 2020-04-07 10:54 | NUR ---
Pt was taken down for HIDA scan at beginning of this shift. IV access was found to be compromised, and after four unsuccessful attempts by three different staff members (ED RN, PCU bellows charger assembler, and nuclear med tech), the pt was returned to PCU 11. Attempts by PCU charge and ICU charge to start a powerglide were also unsuccessful. Medical floor bellows charger assembler is going to make an attempt to get IV access. Meanwhile, zofran ODT order given by Dr. Leon to help with the pt's nausea/vomiting. Pt is quietly resting in ther room at this time.
--- NOTE | 2020-04-07 12:40 | NUR ---
Powerglide was started by Oly Perez RN. Pepcid and zofran given IV. Pt still nauseated, vomiting. Compazine given, pt taken to nuclear medicine for HIDA scan. Pt taken in the bed by tech. Hank
--- NOTE | 2020-04-07 18:49 | NUR ---
SHIFT SUMMARY PT A&Ox4; CALM AND COOPERATIVE [facility] CARE. PT RESTING IN BED DURING SHIFT. PT HAD HIDA SCAN DURING SHIFT. PT REPORTS "ALL OVER" PAIN, MEDICATED PER EMAR. PT REPORTS NAUSEA T/O SHIFT, MEDICATED PER EMAR. PT DENIES SOB, DIZZINESS. ELEVATED BP NOTED. PT FEBRILE T-MAX 100.4 DURING SHIFT. OTHER VSS. NO OTHER ACUTE CHANGES NOTED DURING SHIFT. WILL CONTINUE TO MONITOR UNTIL REPORT GIVEN TO ONCOMING RN.
--- NOTE | 2020-04-08 04:14 | NUR ---
04/08/20 0410 PT AWAKE AND URGENTLY NEEDING TO VOID. RN ASSISTED HER TO BSC BUT WAS PARTIALLY INCONTINENT ON FLOOR. BED LINEN CHANGED AND ALY-CARE GIVEN. VITALS STABLE AND TAKING WATER WELL. BIPAP REAPPLIED AND SHE FELL ASLEEP AGAIN.
[2020-04-08 05:21] LABS: Hematocrit 32.1 % (33.0-51.0); Mean Corpuscular HGB Conc 31.2 g/dL (31.5-36.5); Mean Corpuscular Volume 96 fL (80-100); Mean Platelet Volume 10.4 fL (9.1-12.4); Platelet Count 461 K/mm3 (150-400); RDW Coefficient Variation 14.1 % (11.7-14.2); Red Blood Cell Count 3.33 M/mm3 (3.80-5.20); White Blood Cell Count 15.72 K/mm3 (4.00-11.30)
[2020-04-08 05:40] LABS: Bun/Creatinine Ratio 17.1 (12.0-20.0); Calcium, Blood 8.2 mg/dL (8.5-10.1); Creatinine, Blood 1.11 mg/dL (0.40-1.00); Potassium, Blood 5.1 mmol/L (3.5-5.5)
[2020-04-08 09:31] LABS: Alanine Aminotransfer (ALT/SGP 384 U/L (12-78); Albumin, Blood 1.9 g/dL (3.4-5.0); Albumin/Globulin Ratio 0.4 (0.8-1.8); Alk Phos 161 U/L (50-136); Aspartate Aminotrans (AST/SGOT 78 U/L (12-37); Bilirubin, Direct <0.1 mg/dL (0.0-0.3); Bilirubin, Indirect Unable to Calculate mg/dL (0.1-0.7); Bilirubin, Total 0.5 mg/dL (0.1-1.0); Globulin, Blood 4.7 g/dL (2.2-4.0); Total Protein, Blood 6.6 g/dL (6.4-8.2)
--- NOTE | 2020-04-08 09:35 | NUR ---
AM NOTE PT APPEARS TO BE SLEEPING THIS AM. WAKES EASILY TO VERBAL STIMULI. ALERT AND ORIENTED. PT REPORTS CHRONIC "ALL OVER" PAIN, MEDICATED PER EMAR. PT REPORTS SOB WITH ACTIVITY; OCCAISONAL COUGHING, SPO2 >94% ON RA; LS CLEAR, DIM BASES. PT REPORTS FEELING WEAK THIS AM, ENCOURAGED PT TO GET OUT OF BED AND IN CHAIR, PT REFUSING STATING "I CANT, I WILL JUST SIT ON THE SIDE OF THE BED." PT CONTINUES TO REPORTS NAUSEA, NO EMESIS NOTED, WILL MEDICATE PER EMAR. PT DENIES CHEST PAIN, DIZZINESS. ELEVATED BP NOTED, OTHER VSS. NO OTHER ACUTE CHANGES. CBG 445 THIS AM, DR SANJEEV LION, MEDICATED PER ORDERS. DR PACE AT BEDSIDE DURING ASSESSMENT, NEW ORDERS FOR GI CONSULTS; DR LUIS LION. WILL CONTINUE TO MONITOR.
--- NOTE | 2020-04-08 13:11 | NUR ---
CALLED TO GET REPORT; RN BUSY AT THE MOMENT WILL CALL ME BACK
--- NOTE | 2020-04-08 15:11 | NUR ---
TRANSFER NOTE PT BP ELEVATED, MEDICATION WITH PRN. OTHER VSS. NO OTHER CHANGES. REPORT GIVEN TO RN ASSUMING CARE OF PT. PT LEFT ROOM VIA WHEELCHAIR AT 1445.
--- NOTE | 2020-04-08 15:47 | NUR ---
PT IS A PCU TRANSFER TO [facility]. PT AOX4; CALLS APPROPRIATELY. PT IS A 44YO/F WHO CAME HERE FOR ACUTE RENAL FAILURE. PT IS FULL CODE AND HAS HX OF NARC USE, DM2, CKD-3, CHRONIC PAIN. PT ALSO CAME HERE FOR UTI. PT IS ON ABX IV. PT USES BIPAP AT NIGHT. PT IS ON CONTACT PRECAUTION FOR HEAD LICE; ALTHOUGH SHE HAS BEEN TX PT FOR SEVERAL DAYS. PT IS ON TELE NSR. PT USES METHADONE DAILY. BP WAS ELEVATED PRIOR TO COMING HERE- HYDRALAZINE SCHEDULED GIVEN THIS AFTERNOON. CBG WAS 328, BUT PT STATED AT HOME HER CBG RUNS UP TO 500- INSULIN GIVEN PER DR ORDER. 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 SHE HAD A BM WHEN SHE CAME HERE AND TOOK A SHOWER. PT HAS KRZYSZTOF POWERGLIDE. SHE LIVES WITH AND A DAUGHTER. BED IS IN THE LOWEST POSITION AND CALL LIGHT WITHIN REACH
[2020-04-09 05:47] LABS: BASOPHILS ABSOLUTE AUTO 0.05 K/mm3 (0.00-0.23); BASOPHILS PERCENT AUTO 0 % (0-2); EOSINOPHILS ABSOLUTE AUTO 0.18 K/mm3 (0.00-0.68); EOSINOPHILS PERCENT AUTO 1 % (0-6); Hemoglobin 9.1 g/dL (11.5-16.0); IMMATURE GRAN PERCENT AUTO 2 % (0-1); LYMPHOCYTES ABSOLUTE AUTO 1.55 K/mm3 (0.84-5.20); LYMPHOCYTES PERCENT AUTO 12 % (21-46); MONOCYTES ABSOLUTE AUTO 1.33 K/mm3 (0.16-1.47); MONOCYTES PERCENT AUTO 10 % (4-13); Mean Corpuscular HGB 29.7 pg (26.0-34.0); Mean Corpuscular HGB Conc 31.4 g/dL (31.5-36.5); Mean Corpuscular Volume 95 fL (80-100); Mean Platelet Volume 10.2 fL (9.1-12.4); NEUTROPHILS ABSOLUTE AUTO 9.57 K/mm3 (1.96-9.15); NEUTROPHILS PERCENT AUTO 74 % (41-73); Platelet Count 420 K/mm3 (150-400); RDW Coefficient Variation 13.9 % (11.7-14.2); RDW Standard Deviation 47.7 fL (35.1-46.3); Red Blood Cell Count 3.06 M/mm3 (3.80-5.20); White Blood Cell Count 12.88 K/mm3 (4.00-11.30)
[2020-04-09 06:23] LABS: Albumin, Blood 1.9 g/dL (3.4-5.0); Albumin/Globulin Ratio 0.5 (0.8-1.8); Bilirubin, Total 0.2 mg/dL (0.1-1.0); Bun/Creatinine Ratio 14.7 (12.0-20.0); Calcium, Blood 7.9 mg/dL (8.5-10.1); Creatinine, Blood 1.16 mg/dL (0.40-1.00); Globulin, Blood 3.7 g/dL (2.2-4.0); Potassium, Blood 3.4 mmol/L (3.5-5.5); Total Protein, Blood 5.6 g/dL (6.4-8.2)
--- NOTE | 2020-04-09 07:47 | NUR ---
deputy county clerk summary pt a/o x4. slept well tonight. medicated for headache overnight. denied n/v overnight. pt continues to wear bipap while sleeping at night, however pt always likes to pull it off. needs frequent reminder to have it back on because sats decrease to mid 80 without it. sat goes back up to low to mid 90's with bipap on. pt educated on why bipap needs to stay on while sleeping. report given to oncoming rn.
[2020-04-09 15:03] LABS: PCO2 Arterial 44.6 mmHg (35-45); PO2 Arterial 59.3 mmHg (80-100); pH Blood Arterial 7.38 (7.35-7.45)
--- NOTE | 2020-04-09 16:21 | NUR ---
Echocardiogram completed.
--- NOTE | 2020-04-09 17:16 | NUR ---
SHIFT SUMMARY PT AxOx4. PLEASANT AND COOPERATIVE WITH CARE. PT WORKED WITH PT/OT TODAY. INDEPENDENT IN THE ROOM. OCCASIONALLY NEEDS ASSISTANCE WITH STOOL REPOSITIONING D/T STATURE (ACHONDROPLASIA). PT CALLS APPROPRIATELY. PT ON CONTACT PRECAUTION FOR LICE. ECHO DONE TODAY. TELE AND FLUIDS DC'D PER DR SHEIKH. INSULIN COVERAGE NEEDED TODAY- BG IN THE 300'S. PLAN IS TO GET OVERNIGHT OXIMETRY TEST TO DETERMINE NEED FOR O2 AT NIGHT, THEN DC TOMORROW. PT IS CURRENTLY RESTING IN BED WITH CALL LIGHT IN REACH. VITALS REVIEWED. DENIES ANY NEEDS AT THIS TIME.
--- NOTE | 2020-04-09 19:37 | NUR ---
AWAKE, WATCHING TV. DENIED PAIN. CALL LIGHT IN REACH
--- NOTE | 2020-04-10 04:24 | NUR ---
SHIFT SUMMARY HAS BEEN RESTING QUIETLY WITH FEW INTERRUPTIONS THIS SHIFT SINCE HS. ISOLATION PRECAUTIONS MAINTAINED FOR REPORTED LICE INFESTAION. CALL LIGHT IN REACH. NO COMPLAINTS VOICED AT THIS TIME.
[2020-04-10 05:27] LABS: PCO2 Arterial 42.6 mmHg (35-45); pH Blood Arterial 7.43 (7.35-7.45)
[2020-04-10 05:30] LABS: BASOPHILS ABSOLUTE AUTO 0.05 K/mm3 (0.00-0.23); BASOPHILS PERCENT AUTO 0 % (0-2); EOSINOPHILS ABSOLUTE AUTO 0.23 K/mm3 (0.00-0.68); EOSINOPHILS PERCENT AUTO 2 % (0-6); Hematocrit 33.2 % (33.0-51.0); Hemoglobin 10.4 g/dL (11.5-16.0); IMMATURE GRAN ABSOLUTE AUTO 0.19 K/mm3 (0.00-0.10); IMMATURE GRAN PERCENT AUTO 2 % (0-1); LYMPHOCYTES ABSOLUTE AUTO 1.62 K/mm3 (0.84-5.20); LYMPHOCYTES PERCENT AUTO 14 % (21-46); MONOCYTES ABSOLUTE AUTO 1.35 K/mm3 (0.16-1.47); MONOCYTES PERCENT AUTO 12 % (4-13); Mean Corpuscular HGB 29.8 pg (26.0-34.0); Mean Corpuscular HGB Conc 31.3 g/dL (31.5-36.5); Mean Corpuscular Volume 95 fL (80-100); Mean Platelet Volume 9.9 fL (9.1-12.4); NEUTROPHILS ABSOLUTE AUTO 8.09 K/mm3 (1.96-9.15); NEUTROPHILS PERCENT AUTO 70 % (41-73); Platelet Count 440 K/mm3 (150-400); RDW Coefficient Variation 14.1 % (11.7-14.2); RDW Standard Deviation 48.2 fL (35.1-46.3); Red Blood Cell Count 3.49 M/mm3 (3.80-5.20); White Blood Cell Count 11.53 K/mm3 (4.00-11.30)
[2020-04-10 05:53] LABS: Albumin/Globulin Ratio 0.5 (0.8-1.8); Bilirubin, Total 0.2 mg/dL (0.1-1.0); Bun/Creatinine Ratio 13.9 (12.0-20.0); Calcium, Blood 8.2 mg/dL (8.5-10.1); Creatinine, Blood 1.08 mg/dL (0.40-1.00); Globulin, Blood 4.4 g/dL (2.2-4.0); Potassium, Blood 3.7 mmol/L (3.5-5.5); Total Protein, Blood 6.4 g/dL (6.4-8.2)
[2020-04-10] MEDS ORDERED: BASAGLAR K100 UNIT/6 SC ×2 (12:44→12:45)
[2020-04-10] MEDS ORDERED: ACET325 PO (12:46)
[2020-04-10] MEDS ORDERED: METH40 PO (12:46)
[2020-04-10] MEDS ORDERED: AMLO5 PO (12:47)
[2020-04-10] MEDS ORDERED: DOCU100 PO (12:47)
[2020-04-10] MEDS ORDERED: HYDRA25 PO (12:48)
[2020-04-10] MEDS ORDERED: METO5A PO (12:48)
[2020-04-10] MEDS ORDERED: SENN187 PO (12:49)
[2020-04-10] MEDS ORDERED: METO25ER PO (12:49)
--- NOTE | 2020-04-10 15:45 | NUR ---
DISCHARGE SUMMARY PT DC TO HOME WITH AT APPROX 1545. PT AxOx4 AND INDENDENT IN THE ROOM. DISCUSSED DC INSTRUCTIONS WITH PT INCLUDING DC MEDS AND FOLLOW UP APPOINTMENTS, AND OUTPATIENT REFERRAL TESTING FOR SLEEP APNEA. NEW PCP PACKET GIVEN FOR payever. PT VERBALIZES UNDERSTANDING AND DENIES ANY QUESTIONS AT THIS TIME. PT SLIPPED OFF WC WHEN SHE WAS ATTEMPTING TO GET IN PRIOR TO LEAVING. PT'S WITNESSED FALL. BOTH PT AND REPORT SHE IS FINE AND DIDN'T GET HURT AND SHE "JUST FELL ON HER BUTT." POST FALL VITALS TAKEN WERE WNL. FOCUSED NEURO, SKIN AND MUSCULOSKELETAL ASSESS ALL WNL. PT SAFELY ESCORTED OUT OF HOSPITAL VIA WC BY CARPET OR RUG LAYER HELPER.
[2020-06-27] MEDS ORDERED: ALBU2.5V5 INH (14:45)
[2020-06-27] MEDS ORDERED: AMLO5 PO (14:45)
[2020-06-27] MEDS ORDERED: ONDA4ODT MM (14:45)
[2020-06-27] MEDS ORDERED: PANT20 PO (14:46)
== END 2020-04-10 15:45 | disposition home or self-care (01) | DRG 871 ==
LOC: ER 19:39 → MEDS 21:49 → PCU 21:49 → MEDS 23:23 → PCU 04-04 13:07 → MEDS 04-08 14:34
PROVIDERS: Internal Medicine; Physician Assistant; Student in an Organized Health Care Education/Training Program; ADMIT Internal Medicine
PROC: 5A09357 Assistance with Respiratory Ventilation, Less than 24 Consecutive Hours, Continuous Positive Airway Pressure (ICD-10-PCS; principal; 2020-04-06)
DX: A41.51 Sepsis due to Escherichia coli [E. coli] (principal); J96.01 Acute respiratory failure with hypoxia; J96.02 Acute respiratory failure with hypercapnia; N39.0 Urinary tract infection, site not specified; N17.9 Acute kidney failure, unspecified; Z68.44 Body mass index [BMI] 60.0-69.9, adult; R65.20 Severe sepsis without septic shock; I12.9 Hypertensive chronic kidney disease with stage 1 through stage 4 chronic kidney disease, or unspecified chronic kidney disease; N18.30 Chronic kidney disease, stage 3 unspecified; E11.65 Type 2 diabetes mellitus with hyperglycemia; E11.22 Type 2 diabetes mellitus with diabetic chronic kidney disease; G47.33 Obstructive sleep apnea (adult) (pediatric); J44.9 Chronic obstructive pulmonary disease, unspecified; R79.89 Other specified abnormal findings of blood chemistry; R74.8 Abnormal levels of other serum enzymes; E66.01 Morbid (severe) obesity due to excess calories; Q77.4 Achondroplasia; B85.0 Pediculosis due to Pediculus humanus capitis; Z79.4 Long term (current) use of insulin; Z79.891 Long term (current) use of opiate analgesic; Z86.718 Personal history of other venous thrombosis and embolism; Z88.0 Allergy status to penicillin; Z88.2 Allergy status to sulfonamides; Z88.8 Allergy status to other drugs, medicaments and biological substances; Z87.891 Personal history of nicotine dependence
CPT/HCPCS: 0241U; 36415; 36600; 51701; 71045; 74176; 76705; 78226; 80047; 80048; 80053; 80074; 80076; 81001; 82140; 82803; 82947; 83605; 83690; 84443; 85014; 85025; 85027; 85610; 85730; 87040; 87077; 87086; 87186; 93005; 93010; 93306; 94660; 94761; 94762; 96360; 96361; 96365; 96375; 96376; 97112; 97116; 97161; 97165; 97530; 99284-25; 99285-25; A9270; A9537; C1751; G0480; J0360; J0696; J0780; J1650; J1815; J2405; J2765; J3010; J3480; J7030

== ENCOUNTER 2020-04-22 16:55 | Inpatient (IN) | payer OTHER ==
[~2020-04-22] VITALS: Ht 121.9 cm; Wt 92.1 kg
[~2020-04-22 16:55] MED LIST changes: +ACET325 PO; +AMLO5 PO; +DOCU100 PO; +HYDRA25 PO; +METH40 PO; +METO25ER PO; +METO5A PO; +SENN187 PO
[2020-04-22 18:34] LABS: Influenza A, PCR NEGATIVE (NEGATIVE); Influenza B, PCR NEGATIVE (NEGATIVE); Resp Syncytial Virus, PCR NEGATIVE (NEGATIVE); SARS-Cov-2 (COVID-19) PCR, MMC NEGATIVE (NEGATIVE)
[2020-04-22 19:29] LABS: BASOPHILS ABSOLUTE AUTO 0.05 K/mm3 (0.00-0.23); BASOPHILS PERCENT AUTO 1 % (0-2); EOSINOPHILS ABSOLUTE AUTO 0.05 K/mm3 (0.00-0.68); EOSINOPHILS PERCENT AUTO 1 % (0-6); Hematocrit 31.5 % (33.0-51.0); Hemoglobin 9.5 g/dL (11.5-16.0); IMMATURE GRAN ABSOLUTE AUTO 0.07 K/mm3 (0.00-0.10); IMMATURE GRAN PERCENT AUTO 1 % (0-1); LYMPHOCYTES ABSOLUTE AUTO 0.86 K/mm3 (0.84-5.20); LYMPHOCYTES PERCENT AUTO 8 % (21-46); MONOCYTES ABSOLUTE AUTO 0.85 K/mm3 (0.16-1.47); MONOCYTES PERCENT AUTO 8 % (4-13); Mean Corpuscular HGB 29.8 pg (26.0-34.0); Mean Corpuscular HGB Conc 30.2 g/dL (31.5-36.5); Mean Corpuscular Volume 99 fL (80-100); NEUTROPHILS ABSOLUTE AUTO 8.44 K/mm3 (1.96-9.15); NEUTROPHILS PERCENT AUTO 82 % (41-73); Platelet Count 440 K/mm3 (150-400); RDW Coefficient Variation 14.2 % (11.7-14.2); RDW Standard Deviation 51.7 fL (35.1-46.3); Red Blood Cell Count 3.19 M/mm3 (3.80-5.20); White Blood Cell Count 10.32 K/mm3 (4.00-11.30)
[2020-04-22 19:47] LABS: Troponin I <0.015 ng/mL (0.000-0.040)
[2020-04-22 19:48] LABS: Alanine Aminotransfer (ALT/SGP 25 U/L (12-78); Albumin, Blood 2.4 g/dL (3.4-5.0); Albumin/Globulin Ratio 0.5 (0.8-1.8); Alk Phos 107 U/L (50-136); Anion Gap 6 mmol/L (6-16); Aspartate Aminotrans (AST/SGOT 22 U/L (12-37); Bilirubin, Total 0.2 mg/dL (0.1-1.0); Blood Urea Nitrogen 32 mg/dL (8-24); Bun/Creatinine Ratio 22.7 (12.0-20.0); CO2, Blood 25 mmol/L (21-32); Calcium, Blood 8.9 mg/dL (8.5-10.1); Chloride, Blood 105 mmol/L (98-108); Creatinine, Blood 1.41 mg/dL (0.40-1.00); Globulin, Blood 4.6 g/dL (2.2-4.0); Glomerular Filtration Rate 43 (60-); Glucose, Blood 384 mg/dL (70-99); Potassium, Blood 4.4 mmol/L (3.5-5.5); Sodium, Blood 136 mmol/L (136-145)
[2020-04-22 20:41] LABS: PCO2 Arterial 45.8 mmHg (35-45); PO2 Arterial 207 mmHg (80-100); pH Blood Arterial 7.36 (7.35-7.45)
[2020-04-23 02:07] LABS: BASOPHILS ABSOLUTE AUTO 0.04 K/mm3 (0.00-0.23); BASOPHILS PERCENT AUTO 0 % (0-2); EOSINOPHILS ABSOLUTE AUTO 0.03 K/mm3 (0.00-0.68); EOSINOPHILS PERCENT AUTO 0 % (0-6); Hematocrit 26.7 % (33.0-51.0); Hemoglobin 8.2 g/dL (11.5-16.0); IMMATURE GRAN ABSOLUTE AUTO 0.04 K/mm3 (0.00-0.10); IMMATURE GRAN PERCENT AUTO 0 % (0-1); LYMPHOCYTES PERCENT AUTO 6 % (21-46); MONOCYTES ABSOLUTE AUTO 1.08 K/mm3 (0.16-1.47); MONOCYTES PERCENT AUTO 8 % (4-13); Mean Corpuscular HGB 29.6 pg (26.0-34.0); Mean Corpuscular HGB Conc 30.7 g/dL (31.5-36.5); Mean Corpuscular Volume 96 fL (80-100); Mean Platelet Volume 9.8 fL (9.1-12.4); NEUTROPHILS ABSOLUTE AUTO 10.87 K/mm3 (1.96-9.15); NEUTROPHILS PERCENT AUTO 85 % (41-73); Platelet Count 385 K/mm3 (150-400); RDW Coefficient Variation 14.4 % (11.7-14.2); RDW Standard Deviation 50.7 fL (35.1-46.3); Red Blood Cell Count 2.77 M/mm3 (3.80-5.20); White Blood Cell Count 12.86 K/mm3 (4.00-11.30)
[2020-04-23 02:32] LABS: Thyroid Stimulating Hormone 0.996 uIU/mL (0.360-4.800); Troponin I <0.015 ng/mL (0.000-0.040)
[2020-04-23 02:33] LABS: Anion Gap 8 mmol/L (6-16); Blood Urea Nitrogen 30 mg/dL (8-24); CO2, Blood 26 mmol/L (21-32); Calcium, Blood 8.7 mg/dL (8.5-10.1); Chloride, Blood 106 mmol/L (98-108); Glomerular Filtration Rate 40 (60-); Glucose, Blood 215 mg/dL (70-99); Sodium, Blood 140 mmol/L (136-145)
--- NOTE | 2020-04-23 08:16 | NUR ---
SHIFT SUMMARY PT A&O X 4; DENIES CHEST PAIN; VSS W/ BP ELEVATED; O2 SATS >93 ON 15 HIGH FLOW OR BIPAP W/ SETTINGS TITRATED PER RT; BLE EDEMA NOTED, W/ R LEG GREATER THAN LEFT; DR. CASTANEDA AT BEDSIDE EARLY AM; 1000 ML FLUID RESTRICTION ORDERED; PT SLEPT A FEW HOURS IN BETWEEN INTERVENTION; SBA TO BSC; STOOL AT BEDSIDE TO ASSIST PT ON AND OFF BED CALL LIGHT IN REACH; NO DISTRESS NOTED THIS SHIFT; BED IN LOWEST POSITION; REPORT GIVEN TO DAY SHIFT RN.
--- NOTE | 2020-04-23 18:46 | NUR ---
SHIFT SUMMARY: PT CONTINUES A&OX4 T/OUT SHIFT, TRANSITIONS FROM BIPAP TO HIFLO HUMIDIFIED AIR 6-8 L/MIN T/OUT SHIFT TO MAINTAIN O2 SATS >90%. PT STATES IMPROVEMENT OF SOB COMPARED TO ADMISSION. SINUS RHYTHM ON MONITOR. PT USING CALL LIGHT APPROPRIATELY, STEP STOOL IN ROOM TO AID PT WITH BSC USE. FLUID RESTRICTION OF 1000 ML CONTINUES. PT SEE [facility] FOR DAILY DOSE OF 150MG METHADONE, DOSE VERIFIED WITH ADAPT, PHARMACIST DR SANJEEV SCHMIDT. PT MEDICATED PER EMAR. WILL CONTINUE TO MONITOR AND TREAT ACCORDINGLY UNTIL CHANGE OF SHIFT.
[2020-04-24 04:32] LABS: Hematocrit 26.7 % (33.0-51.0); Hemoglobin 8.1 g/dL (11.5-16.0); Mean Corpuscular HGB 29.3 pg (26.0-34.0); Mean Corpuscular HGB Conc 30.3 g/dL (31.5-36.5); Mean Corpuscular Volume 97 fL (80-100); Mean Platelet Volume 10.2 fL (9.1-12.4); Platelet Count 362 K/mm3 (150-400); RDW Coefficient Variation 14.3 % (11.7-14.2); RDW Standard Deviation 50.4 fL (35.1-46.3); Red Blood Cell Count 2.76 M/mm3 (3.80-5.20); White Blood Cell Count 10.64 K/mm3 (4.00-11.30)
[2020-04-24 04:53] LABS: Albumin, Blood 1.9 g/dL (3.4-5.0); Anion Gap 5 mmol/L (6-16); Blood Urea Nitrogen 33 mg/dL (8-24); Bun/Creatinine Ratio 20.1 (12.0-20.0); CO2, Blood 27 mmol/L (21-32); Calcium, Blood 8.6 mg/dL (8.5-10.1); Chloride, Blood 105 mmol/L (98-108); Creatinine, Blood 1.64 mg/dL (0.40-1.00); Glomerular Filtration Rate 36 (60-); Glucose, Blood 228 mg/dL (70-99); Potassium, Blood 4.3 mmol/L (3.5-5.5); Sodium, Blood 137 mmol/L (136-145)
--- NOTE | 2020-04-24 05:24 | NUR ---
DATA CONSULTANT SUMMARY A/OX4, SBA TO BSC USING STEP STOOL. CURRENTLY ON BIPAP WITH INTERMITTENT USE OF HIGH FLOW 6-8L. CONTINOUS BIOX IN PLACE WITH SATS GREATER THAN 90. HOWEVER, PATIENT DESATS QUICKLY WITH REMOVAL TO EAT OR DRINK. TELE D/C'D PER ORDER. BED IN LOWEST POSITION WITH CALL LIGHT IN REACH. WILL CONTINUE TO MONITOR AND REPORT TO ONCOMING RN.
--- NOTE | 2020-04-24 11:55 | NUR ---
This morning Janis was alert, cooperative, and talkative. Mood upbeat, but observable dyspnea and hypoxemia during activity of taking medications after breakfast. She tells me that she was eating breakfast earlier while wearing the nasal cannula and did not feel bad. During medication administration, she was wearing her CPAP with 13 l/min O2 bleed in. She would move the mask aside just momentarily to take a couple of pills and a sip of water, then wear the mask in order to recover. Her SPO2 dropped to 77% at one point and she began coughing and said that she felt like there was a lot of mucous which she needed to cough out. Stated that she did not feel any difficulty in swallowing her pills (2 at a time, with rest in between), just like there was a lot of mucous. She coughed while sitting on the side of the bed, heart rate went up to 125 bpm, and after a few minutes she said she felt better and her heart rate came down to 100. Her spo2 however, did not recover even 10 minutes after she had finished taking her medications, at which time she said that her breathing felt much better. At that time she appeared to be in no distress, was assisted to lying on her right side, still wearing her CPAP, work of breathing was much improved. The pulse oximetry probe was changed out and repositioned, one on her ear auricle and other on her finger to make sure that the reading was accurate. Called RT Shilo Phillips in order to request assistance as the spo2 was still not consistently staying above 85-86% while on the CPAP. V30 bipap was then put in use on the patient, but there was not much improvement in the spo2, so applied the v60 with settings 12/8 70% needed to keep spo2 greater than 88%. The pt was also somnulent during this time. Dr. Leon called to update on pt condition, and new orders were received.
[2020-04-24 12:07] LABS: PCO2 Arterial 50.8 mmHg (35-45); PO2 Arterial 55.7 mmHg (80-100); pH Blood Arterial 7.34 (7.35-7.45)
--- NOTE | 2020-04-24 12:08 | NUR ---
At this time, Janis is awake, alert, and states that she is feeling fine; however, Shilo tells me that she took her off the bipap to allow her to eat while sitting at side of bed, and spo2 dropped to 54%. Pt recovered to 88% after keeping the nasal cannula in her mouth, but during the recovery period she was not in any distress nor saying that she had any dyspnea. she states that she feels fine. LUng sounds remain clear to auscultation both anterior and posterior. Chest xray done, ABG being run at this time.
--- NOTE | 2020-04-24 12:45 | NUR ---
Sitting up in recliner, with pillows behind her back for support. States she feels very comfortable. Wearing the V60 bipap and spo2 maintaining greater than 90%. RR is 22/min.
--- NOTE | 2020-04-24 18:54 | NUR ---
Maintaining good oxygenation with bipap at 45% fiO2. Does still desaturate quickly when using the nasal cannula hi flow, spo2 drops to 77%-86% if taking a break from bipap. However, the pt is rarely anxious or extrememly dyspneic with this.
[2020-04-25 04:40] LABS: BASOPHILS ABSOLUTE AUTO 0.03 K/mm3 (0.00-0.23); BASOPHILS PERCENT AUTO 0 % (0-2); EOSINOPHILS ABSOLUTE AUTO 0.14 K/mm3 (0.00-0.68); EOSINOPHILS PERCENT AUTO 2 % (0-6); Hematocrit 26.1 % (33.0-51.0); IMMATURE GRAN ABSOLUTE AUTO 0.05 K/mm3 (0.00-0.10); IMMATURE GRAN PERCENT AUTO 1 % (0-1); LYMPHOCYTES ABSOLUTE AUTO 1.02 K/mm3 (0.84-5.20); LYMPHOCYTES PERCENT AUTO 12 % (21-46); MONOCYTES ABSOLUTE AUTO 1.24 K/mm3 (0.16-1.47); MONOCYTES PERCENT AUTO 14 % (4-13); Mean Corpuscular HGB 29.5 pg (26.0-34.0); Mean Corpuscular HGB Conc 30.7 g/dL (31.5-36.5); Mean Corpuscular Volume 96 fL (80-100); Mean Platelet Volume 10.4 fL (9.1-12.4); NEUTROPHILS ABSOLUTE AUTO 6.18 K/mm3 (1.96-9.15); NEUTROPHILS PERCENT AUTO 71 % (41-73); Platelet Count 366 K/mm3 (150-400); RDW Coefficient Variation 14.2 % (11.7-14.2); RDW Standard Deviation 49.8 fL (35.1-46.3); Red Blood Cell Count 2.71 M/mm3 (3.80-5.20); White Blood Cell Count 8.66 K/mm3 (4.00-11.30)
[2020-04-25 04:56] LABS: Bun/Creatinine Ratio 22.5 (12.0-20.0); Calcium, Blood 9.1 mg/dL (8.5-10.1); Creatinine, Blood 1.6 mg/dL (0.40-1.00); Potassium, Blood 4.4 mmol/L (3.5-5.5)
--- NOTE | 2020-04-25 06:02 | NUR ---
SHIFT SUMMARY PT A&OX4. SP02>90% ON BIPAP. WHEN TAKING MEDS OR EATING, PT WEARS 15L HIGH KATHY. PT DESATS QUICKLY. WHEN TRANSFERING TO [facility], PT DESATTED TO 75% ON NC. TELEMETRY READS SINUS RHYTHM, HR 80'S. PT DENIES PAIN. PT DID HAVE ONE EPISODE OF INCONTINENCE THIS SHIFT, WELL TRANSFERRED TO BS W/ ASSISTANCE. PT SAT IN CHAIR DURING SHIFT, STATES SHE CAN BREATHE BETTER IN THE RECLINER. PT SLEPT ABOUT 4 HOURS, BROKEN UP. PT STATES SHE HAS HER DAYS AND NIGHTS MIXED UP, EVEN AT HOME. CALL [employer] [facility].
--- NOTE | 2020-04-25 11:14 | NUR ---
Pt took oral medications, then needed to void urgently. She was incontinent during the transfer from the recliner to bedside commode, using the foot stool for height. Also voided on the bedside commode. Complete sponge bath done afterwards, then she stepped down from BSC, to floor, then using foot stool was able to get upinto the be with minimal assistance. Spo2 was 88% at the lowest point while wearing nasal cannula all throughout the above mentioned activity at 5 l/min delivery., and she was also able to speak in short sentences. Given the BIPAP at 12/8 and 30% FiO2 for recovery after she was left side lying in the bed, and she is presently appearing very comfortable, spo2 98% and RR 16/min.
--- NOTE | 2020-04-25 15:31 | NUR ---
Spoke with Dr. Leon regarding discharge planning and pt's possible qualification for triology machine. Attempted to contact product planner, but no answer so message left on voice mail regarding plan.
--- NOTE | 2020-04-25 15:33 | NUR ---
Reyna has been wearing the bipap for most of the day. STates that she didn't sleep much last night, that her days and nights are mixed up and only slept 2 hours last night. She has been wearing the nasal cannula while eating her meals, and during toileting on the bedside commode. Spo2 drops to 85-88% during activity, but she states that she feels okay during the activity as far as her breathing is concerned. Recovers with rest, using the bipap for recovery, with fio2 of 30%.
--- NOTE | 2020-04-25 23:22 | NUR ---
NO IV ACCESS PT HAS NO IV ACCESS. IV ATTEMPT HAS BEEN MADE BY USING ULTRASOUND WITH TRAINED RN. PHYSICIAN NOTIFIED. INSTRUCTED TO ASK ICU FOR NURSE TO INSERT POWERGLIDE AND PHYSICIAN TO INSERT CENTRAL LINE IN AM. ROAD OILER NOTIFIED.
--- NOTE | 2020-04-26 05:46 | NUR ---
SHIFT SUMMARY PT SLEPT T/O SHIFT. OXYGEN SATURATION MAINTAINED ABOVE 92% ON 30-40% FIO2 BIPAP. HR STABLE. BP STABLE. PT REPORTS NO CP OR PRESSURE. PT ABLE TO TURN SELF IN BED NEEDED. PT ALERT AND ORIENTED X 4. WILL CONTINUE TO MONITOR UNTIL REPORT GIVEN TO DAYSHIFT RN.
[2020-04-26 10:24] LABS: Vancomycin, Random 19.3 ug/mL
--- NOTE | 2020-04-26 13:15 | NUR ---
Reyna was without IV access at start of shift, despite multiple attempts by staff on noc shift to establish IV access. This morning, we were unable to get a midline catheter access, but did finally get a peripheral IV with use of ultrasound. She was hypoglycemic this am, and c/o nausea and diaphoresis. She was able to drink some juice and eat cheese and crackers which resolved the hypoglycemia. She has been tolerating being off of the bipap for longer periods of time, and states that she is not dyspneic during toileting or eating while wearing the nasal cannula; however, she is requiring 13 l/mn of O2 delivery whereas yesterday she only needed 5 l/min n.c. when off of the bipap. States that she has had BM both yesterday and today. Appetite has been good. C/O nausea just before lunch , but had no further complaints after being given reglan 30 min before her meal.
--- NOTE | 2020-04-26 13:31 | NUR ---
Assisted to wheelchair for transport to imaging dept for CT scan at this time.
--- NOTE | 2020-04-26 13:59 | NUR ---
RETURNED from CT scan. States she was able to lie on her back during the scan, but that it was uncomfortable. She is sitting up in recliner chair now states she is going to take a nap. Assisted to put bipap back on. Scheduled oral medication given; BINDING MACHINE OPERATOR assisted pt to fill out her menu.
--- NOTE | 2020-04-26 14:58 | NUR ---
Appears to be sleeping in recliner while wearing bipap. Continuous oximetry in place, no hypoxemia on 30% fio2.
--- NOTE | 2020-04-26 17:43 | NUR ---
Spoke with Dr. Leon regarding CT scan done today. Plan of care essentially to remain the same.
--- NOTE | 2020-04-26 22:36 | NUR ---
PHYSICIAN NOTIFIED PHYSICIAN NOTIFIED OF PT'S HYPOGLYCEMIA THIS AM AFTER 25 UNITS OF SEMGLEE GIVEN ON 04/25. PHYSICIAN ORDERED TO HOLD NOC DOSE OF SEMGLEE AND CHECK CBG AT 0000.
--- NOTE | 2020-04-27 00:45 | NUR ---
PHYSICIAN UPDATED PHYSICIAN INFORMED OF PT'S 0000 BLOOD GLUCOSE LEVEL. INSTRUCTED TO PROVIDE 15 UNITS OF SEMGLEE.
[2020-04-27 04:48] LABS: BASOPHILS ABSOLUTE AUTO 0.06 K/mm3 (0.00-0.23); BASOPHILS PERCENT AUTO 1 % (0-2); EOSINOPHILS ABSOLUTE AUTO 0.46 K/mm3 (0.00-0.68); EOSINOPHILS PERCENT AUTO 6 % (0-6); Hematocrit 25.5 % (33.0-51.0); Hemoglobin 7.9 g/dL (11.5-16.0); IMMATURE GRAN ABSOLUTE AUTO 0.09 K/mm3 (0.00-0.10); IMMATURE GRAN PERCENT AUTO 1 % (0-1); LYMPHOCYTES ABSOLUTE AUTO 1.06 K/mm3 (0.84-5.20); LYMPHOCYTES PERCENT AUTO 15 % (21-46); MONOCYTES ABSOLUTE AUTO 1.47 K/mm3 (0.16-1.47); MONOCYTES PERCENT AUTO 20 % (4-13); Mean Corpuscular HGB 29.2 pg (26.0-34.0); Mean Corpuscular Volume 94 fL (80-100); Mean Platelet Volume 10.4 fL (9.1-12.4); NEUTROPHILS ABSOLUTE AUTO 4.05 K/mm3 (1.96-9.15); NEUTROPHILS PERCENT AUTO 56 % (41-73); Platelet Count 414 K/mm3 (150-400); RDW Coefficient Variation 13.6 % (11.7-14.2); RDW Standard Deviation 46.7 fL (35.1-46.3); Red Blood Cell Count 2.71 M/mm3 (3.80-5.20); White Blood Cell Count 7.19 K/mm3 (4.00-11.30)
--- NOTE | 2020-04-27 05:35 | NUR ---
SHIFT SUMMARY PT SLEPT T/O SHIFT. PT ALERT AND ORIENTED X 4. ABLE TO TURN SELF IN BED NEEDED. PT WORE BIPAP T/O NIGHT. FIO2 AT 40%, PT ON 15 L OF OXYGEN VIA HIGH FLOW NC WHEN OFF BIPAP. OXYGEN SATURATION MAINTAINED ABOVE9 92%. HR STABLE. BP STABLE. REPORTS NO CP OR PRESSURE. WILL CONTINUE TO MONITOR UNTIL REPORT GIVEN TO DAYSHIFT RN.
[2020-04-27 05:47] LABS: Anion Gap 7 mmol/L (6-16); Blood Urea Nitrogen 43 mg/dL (8-24); Bun/Creatinine Ratio 28.3 (12.0-20.0); CO2, Blood 26 mmol/L (21-32); Calcium, Blood 8.7 mg/dL (8.5-10.1); Chloride, Blood 104 mmol/L (98-108); Creatinine, Blood 1.52 mg/dL (0.40-1.00); Glomerular Filtration Rate 39 (60-); Glucose, Blood 203 mg/dL (70-99); Potassium, Blood 4.6 mmol/L (3.5-5.5); Sodium, Blood 137 mmol/L (136-145)
[2020-04-27 05:49] LABS: Vancomycin, Random 12.5 ug/mL
--- NOTE | 2020-04-27 18:11 | NUR ---
SHIFT SUMMARY: PT ALERT AND ORIENTED X4. SLEEPING THROUGHOUT THE MORNING. ON 15 L O2 VIA NASAL CANNULA SATING 93-94%. USING BIPAP WHEN SLEEPING. RESPIRATORY INTO SEE PATIENT MULTIPLE TIMES TODAY. TRILOGY ALSO INTO SEE PATIENT TO FIT FOR HOME BIPAP MACHINE. PT PLANS TO WEAR TONIGHT. TELE SHOWING SINUS RHYTHM. DENIES CHEST PAIN/PRESSURE. WEAK WITH MOVEMENT AND OXYGEN SATURATION DESATS 80-84% WITH, PT RECOVERS IN 2 MIN SITTING IN RECLINER OR IN BED. DENIES ANY SYMPTOMS WHEN DESATURATION OCCURS. BLOOD SUGARS STABLE THIS SHIFT. RIGHT LOWER LEG/ANKLE/FOOT INCREASED SWELLING COMPARED TO LEFT. PT STATES IT IS "THE SAME DAYS BEFORE". USING BEDSIDE COMMODE. CALLING APPROPRIATLY. PLEASENT WITH CARES AND QUESTIONS. RIGHT FOREARM IV FLUSHING WELL AND SALINE LOCKED. WILL CONTINUE TO MONITOR AND REPORT OFF.
--- NOTE | 2020-04-27 21:23 | NUR ---
ASSUMED CARE OF PATIENT AT APPROXIMATELY 1910 FROM ALEXSANDRA Light RN. PATIENT SLEEPING IN RECLINER DURING BEDSIDE REPORT; REPORTS SHE TRIED TO STAY UP MORE TODAY BUT KEPT FALLING ASLEEP. PATIENT ALERT AND ORIENTED; FORGETFUL AT TIMES; REPORTS SHE WILL SLEEP IN RECLINER TONIGHT BECAUSE SHE IS MORE COMFORTABLE AND CAN BREATH BETTER. NSR ON TELE; OXYGEN SATURATION ABOVE 90% ON 15 LPM VIA HF NC OR BIPAP. PIV S/L. PATIENT CURRENLTY RESTING IN BED; CALL LIGHT IN REACH; BED IN LOWEST POSISTION
[2020-04-28 04:25] LABS: Vancomycin, Random 17.6 ug/mL
--- NOTE | 2020-04-28 06:15 | NUR ---
[facility] PATIENT REMOVED TRILOGY BIPAP AND DID NOT HAVE OXYGEN ON FOR ABOUT TEN MINUTES; OXYGEN SATURATION MAINTAINED ABOVE 90%. NO OTHER ACUTE CHANGES TO REPORT.
[2020-04-28 09:29] LABS: Percent Saturation 14.7 % (15.0-50.0)
--- NOTE | 2020-04-28 18:32 | NUR ---
SHIFT SUMMARY: PT ALERT AND ORIENTED X4. ON ROOM AIR FOR MOST OF THE DAY SATING ABOVE 92%. WHEN SLEEPING PT WEARING HOME BIPAP SET UP BY TRILOGY, WITH 0-3 L OF O2 BLEEDING IN. DOING WELL ON ROOM AIR AND O2 SATURATION IS MAINTAINING WITH MOVEMENT FROM BED TO CHAIR AND BSC. DENIES CHEST PAIN. COMPLAINS OF LOWER BACK PAIN RELIEVED WITH DAILY METHADONE. TELE SHOWING SINUS RHYTHM. R LEG SWELLING COMPARED TO LEFT LEG. DR. BALDERAS AWARE. NEW ORDERS PLACED FOR LASIX AND ALBUMIN THIS AM. VITAL SIGNS STABLE WITH ELEVATED BP, MANAGED WITH SCHEDULED MEDS. USING CALL LIGHT APPROPRIATLY. BED REMAINED IN LOW LOCKED POSITION. NO ACUTE CHANGES. WILL CONTINUE TO MONITOR AND REPORT OFF.
--- NOTE | 2020-04-28 23:55 | NUR ---
ASSUMED CARE OF PATIENT AT APPROXIMATELY 1910 FROM ALEXSANDRA Light RN. PATIENT SITTING IN RECLINER DURING BEDSIDE REPORT; PATIENT JUST GOT BACK INTO BED TO HELP WITH SWELLING IN LEGS. PATIENT SBA OUT OF BED; USES STOOL TO GET INTO BED/RECLINER. PATIENT ALERT AND ORIENTED; FORGETFUL AT TIMES. PATIENT DENIES PAIN, DIZZIESS OR NAUSEA. NSR ON TELE; OXYGEN SATURATION ABOVE 90% ON ROOM AIR; 3LPM WHEN SLEEPY AND USES TRILOGY WHEN SLEEPING. PIV S/L. PATIENT CURRENLTY RESTING IN BED; CALL LIGHT IN REACH; BED IN LOWEST POSISTION
[2020-04-29 03:57] LABS: Hemoglobin 7.9 g/dL (11.5-16.0); Mean Corpuscular HGB 29.7 pg (26.0-34.0); Mean Corpuscular HGB Conc 31.6 g/dL (31.5-36.5); Mean Corpuscular Volume 94 fL (80-100); Mean Platelet Volume 9.7 fL (9.1-12.4); Platelet Count 446 K/mm3 (150-400); RDW Coefficient Variation 13.8 % (11.7-14.2); RDW Standard Deviation 46.8 fL (35.1-46.3); Red Blood Cell Count 2.66 M/mm3 (3.80-5.20)
[2020-04-29 04:16] LABS: Albumin, Blood 2.1 g/dL (3.4-5.0); Albumin/Globulin Ratio 0.5 (0.8-1.8); Bilirubin, Total 0.3 mg/dL (0.1-1.0); Bun/Creatinine Ratio 28.5 (12.0-20.0); Creatinine, Blood 1.37 mg/dL (0.40-1.00); Globulin, Blood 4.3 g/dL (2.2-4.0); Magnesium, Blood 1.9 mg/dL (1.6-2.4); Potassium, Blood 4.4 mmol/L (3.5-5.5); Total Protein, Blood 6.4 g/dL (6.4-8.2)
--- NOTE | 2020-04-29 06:04 | NUR ---
PATIENT SLEPT ABOUT EIGHT HOURS LAST NIGHT. VSS. NO OTHER ACUTE CHANGES TO REPORT.
[2020-04-29] MEDS ORDERED: METO25 PO (11:03)
[2020-04-29] MEDS ORDERED: FURO20 PO (11:04)
--- NOTE | 2020-04-29 14:48 | NUR ---
DISCHARGE: PT ALERT AND ORIENTED X4. ON ROOM AIR SATING ABOVE 92%. USING HOME TROLOGY MACHINE WITH 2-3 L O[facility] UNTIL THEY CAN DROP OFF MORE TONIGHT. SPOKE WITH PATIENT AND CONFIRMED ADDRESS. PT EDUCATED ON TEMPORARY OXYGEN. TELE SHOWING SINUS RHYTHM. DENIES CHEST PAIN. VITAL SIGNS STABLE. DISCHARGE INSTRUCTIONS DISCUSSED. EDUCATED ON NEW MEDICATIONS AND CHECKING OXYGEN SATURATION AT HOME. PTS IN ROOM FOR INSTRUCTIONS. IV TAKEN OUT PER PROTOCOL. PT LEFT UNIT VIA WHEELCHAIR WITH TRILLOGY MACHINE, TEMPORARY OXYGEN TANK FROM [facility] AND ALL PERSONAL BELONGINGS.
[2020-06-27] MEDS ORDERED: ALBU2.5V5 INH (14:45)
[2020-06-27] MEDS ORDERED: AMLO5 PO (14:45)
[2020-06-27] MEDS ORDERED: ONDA4ODT MM (14:45)
[2020-06-27] MEDS ORDERED: PANT20 PO (14:46)
== END 2020-04-29 13:48 | disposition home or self-care (01) | DRG 871 ==
LOC: ER 16:55 → PCU 21:22
PROVIDERS: Emergency Medicine; Internal Medicine; ADMIT Internal Medicine
PROC: 5A09357 Assistance with Respiratory Ventilation, Less than 24 Consecutive Hours, Continuous Positive Airway Pressure (ICD-10-PCS; principal; 2020-04-22)
DX: A41.9 Sepsis, unspecified organism (principal); J96.21 Acute and chronic respiratory failure with hypoxia; J18.9 Pneumonia, unspecified organism; I50.33 Acute on chronic diastolic (congestive) heart failure; J96.22 Acute and chronic respiratory failure with hypercapnia; I13.0 Hypertensive heart and chronic kidney disease with heart failure and stage 1 through stage 4 chronic kidney disease, or unspecified chronic kidney disease; N17.9 Acute kidney failure, unspecified; J44.0 Chronic obstructive pulmonary disease with (acute) lower respiratory infection; E66.2 Morbid (severe) obesity with alveolar hypoventilation; Z20.822 Contact with and (suspected) exposure to COVID-19; Z79.4 Long term (current) use of insulin; Q77.4 Achondroplasia; G43.909 Migraine, unspecified, not intractable, without status migrainosus; Z87.891 Personal history of nicotine dependence; N18.30 Chronic kidney disease, stage 3 unspecified; E11.22 Type 2 diabetes mellitus with diabetic chronic kidney disease; E11.43 Type 2 diabetes mellitus with diabetic autonomic (poly)neuropathy; K31.84 Gastroparesis; Z79.891 Long term (current) use of opiate analgesic; Z68.38 Body mass index [BMI] 38.0-38.9, adult
CPT/HCPCS: 0241U; 36415; 36600; 71045; 71250; 80048; 80053; 80069; 80202; 82728; 82803; 82947; 83540; 83550; 83605; 83735; 83880; 84145; 84443; 84484; 85025; 85027; 87040; 93005; 93010; 93971; 94644; 94660; 94762; 96365; 96366; 96367; 99285-25; A9270; C1751; J0692; J0696; J1650; J1940; J3370; J7050; P9046

== ENCOUNTER 2020-05-16 12:22 | Emergency (ER) | payer OTHER ==
[~2020-05-16] VITALS: Ht 121.9 cm; Wt 56.7 kg
[~2020-05-16 12:22] MED LIST changes: +FURO20 PO; +METO25 PO
[2020-05-16 13:16] LABS: BASOPHILS ABSOLUTE AUTO 0.03 K/mm3 (0.00-0.23); BASOPHILS PERCENT AUTO 0 % (0-2); EOSINOPHILS ABSOLUTE AUTO 0.02 K/mm3 (0.00-0.68); EOSINOPHILS PERCENT AUTO 0 % (0-6); Hematocrit 28.8 % (33.0-51.0); IMMATURE GRAN ABSOLUTE AUTO 0.04 K/mm3 (0.00-0.10); IMMATURE GRAN PERCENT AUTO 0 % (0-1); LYMPHOCYTES PERCENT AUTO 7 % (21-46); MONOCYTES ABSOLUTE AUTO 0.86 K/mm3 (0.16-1.47); MONOCYTES PERCENT AUTO 9 % (4-13); Mean Corpuscular HGB 29.5 pg (26.0-34.0); Mean Corpuscular HGB Conc 31.3 g/dL (31.5-36.5); Mean Corpuscular Volume 94 fL (80-100); Mean Platelet Volume 10.7 fL (9.1-12.4); NEUTROPHILS ABSOLUTE AUTO 8.04 K/mm3 (1.96-9.15); NEUTROPHILS PERCENT AUTO 83 % (41-73); Platelet Count 336 K/mm3 (150-400); RDW Coefficient Variation 14.7 % (11.7-14.2); RDW Standard Deviation 50.8 fL (35.1-46.3); Red Blood Cell Count 3.05 M/mm3 (3.80-5.20); White Blood Cell Count 9.69 K/mm3 (4.00-11.30)
[2020-05-16 13:37] LABS: Alanine Aminotransfer (ALT/SGP 19 U/L (12-78); Albumin, Blood 2.3 g/dL (3.4-5.0); Albumin/Globulin Ratio 0.5 (0.8-1.8); Alk Phos 106 U/L (50-136); Anion Gap 11 mmol/L (6-16); Aspartate Aminotrans (AST/SGOT 16 U/L (12-37); Bilirubin, Total 0.3 mg/dL (0.1-1.0); Blood Urea Nitrogen 24 mg/dL (8-24); Bun/Creatinine Ratio 14.9 (12.0-20.0); CO2, Blood 23 mmol/L (21-32); Calcium, Blood 8.8 mg/dL (8.5-10.1); Chloride, Blood 103 mmol/L (98-108); Creatinine, Blood 1.61 mg/dL (0.40-1.00); Globulin, Blood 4.3 g/dL (2.2-4.0); Glomerular Filtration Rate 37 (60-); Glucose, Blood 482 mg/dL (70-99); Potassium, Blood 4.1 mmol/L (3.5-5.5); Sodium, Blood 137 mmol/L (136-145); Total Protein, Blood 6.6 g/dL (6.4-8.2); Troponin I <0.015 ng/mL (0.000-0.040)
[2020-05-16] MEDS ORDERED: FURO40 PO (14:24)
[2020-05-16] MEDS ORDERED: POTCHL20ER PO (14:24)
[2020-06-27] MEDS ORDERED: ALBU2.5V5 INH (14:45)
[2020-06-27] MEDS ORDERED: AMLO5 PO (14:45)
[2020-06-27] MEDS ORDERED: ONDA4ODT MM (14:45)
[2020-06-27] MEDS ORDERED: PANT20 PO (14:46)
== END 2020-05-16 14:45 | disposition home or self-care (01) ==
LOC: ER 12:22
PROVIDERS: Emergency Medicine
DX: I50.9 Heart failure, unspecified (principal); E11.9 Type 2 diabetes mellitus without complications; Z79.4 Long term (current) use of insulin; Z79.899 Other long term (current) drug therapy; Z87.891 Personal history of nicotine dependence
CPT/HCPCS: 36415; 71045; 80053; 83880; 84484; 85025; 93005; 93010; 96374; 99285-25; J1940

== ENCOUNTER 2020-06-02 20:16 | Observation (INO) | payer OTHER ==
[~2020-06-02] VITALS: Ht 121.9 cm; Wt 86.8 kg
[~2020-06-02 20:16] MED LIST changes: +FURO40 PO
[2020-06-02 21:21] LABS: BASOPHILS ABSOLUTE AUTO 0.04 K/mm3 (0.00-0.23); BASOPHILS PERCENT AUTO 1 % (0-2); EOSINOPHILS ABSOLUTE AUTO 0.18 K/mm3 (0.00-0.68); EOSINOPHILS PERCENT AUTO 2 % (0-6); Hematocrit 34.9 % (33.0-51.0); Hemoglobin 10.6 g/dL (11.5-16.0); IMMATURE GRAN ABSOLUTE AUTO 0.05 K/mm3 (0.00-0.10); IMMATURE GRAN PERCENT AUTO 1 % (0-1); LYMPHOCYTES ABSOLUTE AUTO 1.04 K/mm3 (0.84-5.20); LYMPHOCYTES PERCENT AUTO 13 % (21-46); MONOCYTES ABSOLUTE AUTO 1.05 K/mm3 (0.16-1.47); MONOCYTES PERCENT AUTO 13 % (4-13); Mean Corpuscular HGB Conc 30.4 g/dL (31.5-36.5); Mean Corpuscular Volume 95 fL (80-100); Mean Platelet Volume 10.2 fL (9.1-12.4); NEUTROPHILS ABSOLUTE AUTO 5.93 K/mm3 (1.96-9.15); NEUTROPHILS PERCENT AUTO 72 % (41-73); Platelet Count 442 K/mm3 (150-400); RDW Coefficient Variation 14.6 % (11.7-14.2); RDW Standard Deviation 50.9 fL (35.1-46.3); Red Blood Cell Count 3.66 M/mm3 (3.80-5.20); White Blood Cell Count 8.29 K/mm3 (4.00-11.30)
[2020-06-02 21:34] LABS: Albumin, Blood 2.4 g/dL (3.4-5.0); Albumin/Globulin Ratio 0.4 (0.8-1.8); Bilirubin, Total 0.1 mg/dL (0.1-1.0); Bun/Creatinine Ratio 21.6 (12.0-20.0); Calcium, Blood 9.7 mg/dL (8.5-10.1); Creatinine, Blood 1.9 mg/dL (0.40-1.00); Globulin, Blood 5.4 g/dL (2.2-4.0); Potassium, Blood 4.2 mmol/L (3.5-5.5); Total Protein, Blood 7.8 g/dL (6.4-8.2)
[2020-06-03 01:00] LABS: Source, Urine Clean Catch
[2020-06-03 01:03] LABS: Appearance, Urine Clear (Clear); Bilirubin, Urine Neg (Neg); Blood, Urine 2+ (Neg); Color, Urine Yellow (P-Yellow); Glucose Qualitative, Urine 3+ (Neg); Ketones, Urine Neg (Neg); Leukocyte Esterase, Urine Neg (Neg); Nitrite, Urine Neg (Neg); Protein, Urine 4+ (Neg); Urobilinogen, Urine NORM (Normal)
[2020-06-03 01:08] LABS: Bacteria Many /hpf; Red Blood Cells, Urine 0-2 /hpf (0-2); Squamous Epithelial Cells Mod /hpf (Few)
[2020-06-03 03:21] LABS: U Amphetamine Screen Not Detected; U Barbituate Screen Not Detected; U Benzodiazapine Screen Not Detected; U Buprenorphine Screen Not Detected; U Cannabinoids Screen Not Detected; U Cocaine Screen Not Detected; U Methadone Screen DETECTED; U Methamphetamine Screen Not Detected; U Opiates Screen Not Detected; U Oxycodone Screen Not Detected; U Phencyclidine Screen Not Detected; U Propoxyphene Screen Not Detected
[2020-06-03 05:15] LABS: BASOPHILS ABSOLUTE AUTO 0.06 K/mm3 (0.00-0.23); BASOPHILS PERCENT AUTO 1 % (0-2); EOSINOPHILS ABSOLUTE AUTO 0.07 K/mm3 (0.00-0.68); EOSINOPHILS PERCENT AUTO 1 % (0-6); Hematocrit 30.7 % (33.0-51.0); Hemoglobin 9.5 g/dL (11.5-16.0); IMMATURE GRAN ABSOLUTE AUTO 0.04 K/mm3 (0.00-0.10); IMMATURE GRAN PERCENT AUTO 0 % (0-1); LYMPHOCYTES ABSOLUTE AUTO 1.09 K/mm3 (0.84-5.20); LYMPHOCYTES PERCENT AUTO 11 % (21-46); MONOCYTES ABSOLUTE AUTO 1.08 K/mm3 (0.16-1.47); MONOCYTES PERCENT AUTO 11 % (4-13); Mean Corpuscular HGB 29.1 pg (26.0-34.0); Mean Corpuscular HGB Conc 30.9 g/dL (31.5-36.5); Mean Corpuscular Volume 94 fL (80-100); Mean Platelet Volume 10.5 fL (9.1-12.4); NEUTROPHILS ABSOLUTE AUTO 7.58 K/mm3 (1.96-9.15); NEUTROPHILS PERCENT AUTO 76 % (41-73); Platelet Count 438 K/mm3 (150-400); RDW Coefficient Variation 14.6 % (11.7-14.2); RDW Standard Deviation 49.7 fL (35.1-46.3); Red Blood Cell Count 3.26 M/mm3 (3.80-5.20); White Blood Cell Count 9.92 K/mm3 (4.00-11.30)
[2020-06-03 05:42] LABS: Albumin, Blood 2.1 g/dL (3.4-5.0); Albumin/Globulin Ratio 0.5 (0.8-1.8); Bilirubin, Total 0.5 mg/dL (0.1-1.0); Bun/Creatinine Ratio 22.5 (12.0-20.0); Calcium, Blood 8.9 mg/dL (8.5-10.1); Creatinine, Blood 1.78 mg/dL (0.40-1.00); Globulin, Blood 4.4 g/dL (2.2-4.0); Potassium, Blood 4.8 mmol/L (3.5-5.5); Total Protein, Blood 6.5 g/dL (6.4-8.2)
--- NOTE | 2020-06-03 07:13 | NUR ---
SHIFT SUMMARY PATIENT ARRIVED TO ROOM 310 VIA STRETCHER AT 0034. SHE WAS ALERT AND ORIENTED X3. CONFUSION AND APHASIA PRESENT. PATIENT WOULD ASK SOME QUESTIONS MULTIPLE TIMES AND NOT REMEMBER. PATIENT TOO WEAK TO GET OUT OF BED UPON ADMIT. URINE SAMPLE OBTAINED AND SENT TO LAB. PATIENT'S BLOOD SUGAR THIS MORNING WAS 497, CHIEF ORDER DISPATCHER PHYSICIAN, DR TERRY, NOTIFIED. IV PATENT AND FLUSHED. BED IN LOWEST POSITION WITH WHEELS LOCKED AND ALARM ON. CALL LIGHT WITHIN REACH. REPORT GIVEN TO ONCOMING RN.
[2020-06-03 08:52] LABS: Glucose, Blood 498 mg/dL (70-99)
--- NOTE | 2020-06-03 09:24 | NUR ---
CALLED DR SHERMAN REGARDING PATIENTS BLOOD GLUCOSE OF 498 AFTER RECIEVING 5 UNITS HUMALOG THIS AM AND GOT ORDERS TO CHANGE PATIENTS SLIDING SCALE FROM LOW TO HIGH AND TO ADMINISTER THE 15UNITS HUMOLOG NOW. ADMINISTERED DOSE PER .
[2020-06-03 13:33] LABS: CHOL/HDL RATIO 3.8; Cholesterol 222 mg/dL (50-200); HDL Cholesterol 59 mg/dL (>39); Low Density Lipoprotein Chol 119 mg/dL (0-110); Triglycerides 219 mg/dL (30-160); Very Low Density Lipoprot Chol 43 mg/dL (6-32)
--- NOTE | 2020-06-03 16:12 | NUR ---
THE PATIENTS MAIN CONCERN TODAY HAS BEEN MAINTAINING HER BLOOD SUGAR. BLOOD SUGARS THIS MORNING WERE AT ~500 AND PATIENT WAS GIVEN A TOTAL OF 20 UNITS OF HUMALOG AND 25 UNITS OF SEMGLEE. PATIENT HAD BEEN NPO. JUST PRIOR TO NOON THE PATIENTS CHEM BG WAS 199 AND PATIENT WAS COVERED WITH 3 UNITS OF HUMALOG. AT APPROXIMATELY 1300 DR SHERMAN CALLED AND SAID THAT PATIENT COULD BE PLACED ON AN ADA DIET; A LATE LUNCH TRAY WAS ORDERED AND PATIENT ATE WELL. DR SHERMAN WANTED ME TO REPORT TO HER REGARDING PATIENTS CONDITION AT 1600. I CHECKED THE PATIENTS CHEM BG JUST PRIOR TO CALLING DR SHERMAN AND IT WAS 54 SO PATIENT DECIDED TO EAT THE FRUIT CUP ON HER BEDSIDE TABLE. DR SHERMAN NOTIFIED AND GAE ORDERS TO RECHECK PATIENTS BLOOD SUGAR IN ABOUT AN HOUR; 1630 DOSE OF HUMALOG HELD. WILL RECHECK BLOOD SUGAR WHEN TIME. BP REMAINS ELEVATED SYSTOLLICALLY IN THE 160-170s. PATIENT MEDICATED WITH HYDRALAZINE SCHEDULED PER EMAR. NO PRN HYDRALAZINE NEEDED BASED ON GIVEN PARAMETERS. PATIENT HAS BEEN PLEASANT WITH STAFF, COOPERATIVE WITH CARE, AND MOSTLY INCONT OF BLADDER TODAY. SHE STATES SHE DOES NOT FEEL LIKE HERSELF, BUT DOES NOTE SOME IMPROVEMENT FROM YESTERDAY. THE COTTON BAG SEWER DID ASSIST THE PATIENT UP TO THE BSC AND SHE DID WELL BUT STATED IT TOOK MORE ENERGY FROM HER THAT TYPICAL. PATIENT IS RESTING IN HER BED AT THIS TIME. CALL LIGHT IN REACH.
--- NOTE | 2020-06-03 22:31 | NUR ---
PHYSICIAN COMMUNICATION CONTACTED ECOLOGY PROFESSOR PHYSICIAN, YUE SHEA, TO NOTIFY HER THAT THE PATIENT WAS EXPERIENCING A HEADACHE. NO PRN PAIN MEDICATIONS ORDERED AND TO ASK IF SHE COULD HAVE TYLENOL FOR THE HEADACHE. YUE SHEA ORDERED A ONE TIME DOSE OF 650 MG TYLENOL PO AND SAID TO ASK THE DAY SHIFT IF THE ORDER COULD BE CONTINUED.
--- NOTE | 2020-06-04 06:49 | NUR ---
SHIFT SUMMARY PATIENT ALERT AND ORIENTED. WAS EXPERIENCING HYPERTENSION AND HEADACHE AT THE BEGINNING OF THE SHIFT. PATIENT WAS MEDICATED PER EMAR FOR BOTH. NO OTHER ISSUES NOTED OVERNIGHT. IV PATENT AND FLUSHED. BED IN LOWEST POSITION WITH WHEELS LOCKED AND ALARM ON. CALL LIGHT WITHIN REACH. REPORT GIVEN TO ONCALICIA BERRY.
[2020-06-04] MEDS ORDERED: FURO40 PO (12:28)
[2020-06-04] MEDS ORDERED: K-Dur 20 meq T20 MEQ PO (12:41)
[2020-06-04] MEDS ORDERED: ATOR80 PO (12:43)
[2020-06-04] MEDS ORDERED: ASPI325EC PO (12:43)
[2020-06-04] MEDS ORDERED: ONDA4ODT MM (12:44)
[2020-06-04] MEDS ORDERED: CLOP75 PO (12:44)
--- NOTE | 2020-06-04 16:53 | NUR ---
DISCHARGE PT DISCHARGED TO HOME. THIS RN EXPLAINED DISCHARGE INSTRUCTIONS TO PT AND SHE REPORTS SHE UNDERSTANDS. IV REMOVED WITHOUT DIFFICULTY. PT'S MEDICATIONS FAXED TO [facility] PER PT REQUEST. PT TRANSFERRED TO PRIVATE VEHICLE VIA WHEELCHAIR. BELONGINGS WITH PT.
--- NOTE | 2020-06-04 21:44 | NUR ---
This creative writer was in patient chart to discuss her medication orders with her. She was confused as to what she should take this evening at home. 06/04/20 7744
[2020-06-27] MEDS ORDERED: ONDA4ODT MM (14:45)
[2020-06-27] MEDS ORDERED: ALBU2.5V5 INH (14:45)
[2020-06-27] MEDS ORDERED: AMLO5 PO (14:45)
[2020-06-27] MEDS ORDERED: PANT20 PO (14:46)
== END 2020-06-04 14:41 | disposition home health service (06) ==
LOC: ER 20:16 → MEDS 20:17 → ENPENDDIS 06-04 11:27 → MEDS 06-04 14:41
PROVIDERS: Emergency Medicine; Family Medicine; ADMIT Internal Medicine
DX: I63.9 Cerebral infarction, unspecified (principal); R47.01 Aphasia; Q77.4 Achondroplasia; I16.0 Hypertensive urgency; I12.9 Hypertensive chronic kidney disease with stage 1 through stage 4 chronic kidney disease, or unspecified chronic kidney disease; E11.22 Type 2 diabetes mellitus with diabetic chronic kidney disease; E11.65 Type 2 diabetes mellitus with hyperglycemia; N18.30 Chronic kidney disease, stage 3 unspecified; D63.1 Anemia in chronic kidney disease; D47.3 Essential (hemorrhagic) thrombocythemia; E11.43 Type 2 diabetes mellitus with diabetic autonomic (poly)neuropathy; K31.84 Gastroparesis; G89.29 Other chronic pain; J44.9 Chronic obstructive pulmonary disease, unspecified; E66.01 Morbid (severe) obesity due to excess calories; Z68.43 Body mass index [BMI] 50.0-59.9, adult; Z87.891 Personal history of nicotine dependence; Z79.4 Long term (current) use of insulin; Z88.1 Allergy status to other antibiotic agents; Z88.0 Allergy status to penicillin; Z88.2 Allergy status to sulfonamides
CPT/HCPCS: 36415; 70450; 71045; 80053; 80061; 81001; 82947; 83036; 85025; 87086; 92610; 93005; 93010; 93308; 93321; 93880; 96372; 96374; 96376; 99285-25; A9270; G0378; G0480; J0360; J1650; J7120

== ENCOUNTER 2020-06-30 16:55 | Emergency (ER) | payer OTHER ==
[~2020-06-30] VITALS: Ht 119.4 cm; Wt 56.7 kg
[~2020-06-30 16:55] MED LIST changes: +ALBU2.5V5 INH; +ASPI325EC PO; +ATOR80 PO; +CLOP75 PO; +K-Dur 20 meq T20 MEQ PO; +ONDA4ODT MM; +PANT20 PO
[2020-06-30 17:34] LABS: Source, Urine Clean Catch
[2020-06-30 17:44] LABS: Appearance, Urine Hazy (Clear); Bilirubin, Urine Neg (Neg); Blood, Urine 2+ (Neg); Color, Urine Yellow (P-Yellow); Glucose Qualitative, Urine 2+ (Neg); Ketones, Urine Neg (Neg); Leukocyte Esterase, Urine 1+ (Neg); Nitrite, Urine Neg (Neg); Protein, Urine 4+ (Neg); Urobilinogen, Urine NORM (Normal)
[2020-06-30 18:04] LABS: Bacteria Many /hpf; Squamous Epithelial Cells Mod /hpf (Few)
[2020-06-30 18:05] LABS: Amorphous Mod (0-Heavy); Mucus Light (0-Heavy); Transitional Epithelial Cells Few /hpf (0-Rare)
[2020-06-30] MEDS ORDERED: Vibramycin100 MG PO (21:26)
== END 2020-06-30 23:25 | disposition home or self-care (01) ==
LOC: ER 16:55
PROVIDERS: Physician Assistant
DX: J18.9 Pneumonia, unspecified organism (principal); J44.9 Chronic obstructive pulmonary disease, unspecified; E11.22 Type 2 diabetes mellitus with diabetic chronic kidney disease; N18.30 Chronic kidney disease, stage 3 unspecified; Z79.02 Long term (current) use of antithrombotics/antiplatelets; Z79.4 Long term (current) use of insulin; Z88.0 Allergy status to penicillin; Z88.2 Allergy status to sulfonamides; Z79.899 Other long term (current) drug therapy; Z87.891 Personal history of nicotine dependence
CPT/HCPCS: 74018; 81001; 87086; 94640; 96374; 99284-25; A9270; J1940

== ENCOUNTER 2020-08-08 12:16 | Emergency (ER) | payer OTHER ==
[~2020-08-08] VITALS: Ht 121.9 cm; Wt 56.7 kg
[~2020-08-08 12:16] MED LIST changes: +Vibramycin100 MG PO
[2020-08-08 13:01] LABS: BASOPHILS ABSOLUTE AUTO 0.07 K/mm3 (0.00-0.23); BASOPHILS PERCENT AUTO 1 % (0-2); EOSINOPHILS ABSOLUTE AUTO 0.17 K/mm3 (0.00-0.68); EOSINOPHILS PERCENT AUTO 2 % (0-6); Hematocrit 27.7 % (33.0-51.0); Hemoglobin 8.8 g/dL (11.5-16.0); IMMATURE GRAN ABSOLUTE AUTO 0.04 K/mm3 (0.00-0.10); IMMATURE GRAN PERCENT AUTO 0 % (0-1); LYMPHOCYTES ABSOLUTE AUTO 0.75 K/mm3 (0.84-5.20); LYMPHOCYTES PERCENT AUTO 7 % (21-46); MONOCYTES ABSOLUTE AUTO 1.42 K/mm3 (0.16-1.47); MONOCYTES PERCENT AUTO 14 % (4-13); Mean Corpuscular HGB 29.9 pg (26.0-34.0); Mean Corpuscular HGB Conc 31.8 g/dL (31.5-36.5); Mean Corpuscular Volume 94 fL (80-100); Mean Platelet Volume 9.9 fL (9.1-12.4); NEUTROPHILS ABSOLUTE AUTO 7.97 K/mm3 (1.96-9.15); NEUTROPHILS PERCENT AUTO 77 % (41-73); Platelet Count 474 K/mm3 (150-400); RDW Coefficient Variation 13.9 % (11.7-14.2); RDW Standard Deviation 47.2 fL (35.1-46.3); Red Blood Cell Count 2.94 M/mm3 (3.80-5.20); White Blood Cell Count 10.42 K/mm3 (4.00-11.30)
[2020-08-08 13:28] LABS: Alanine Aminotransfer (ALT/SGP 27 U/L (12-78); Albumin, Blood 2.5 g/dL (3.4-5.0); Albumin/Globulin Ratio 0.5 (0.8-1.8); Alk Phos 89 U/L (50-136); Anion Gap 7 mmol/L (6-16); Aspartate Aminotrans (AST/SGOT 19 U/L (12-37); Bilirubin, Total 0.2 mg/dL (0.1-1.0); Blood Urea Nitrogen 34 mg/dL (8-24); Bun/Creatinine Ratio 15.7 (12.0-20.0); CO2, Blood 28 mmol/L (21-32); Calcium, Blood 8.8 mg/dL (8.5-10.1); Chloride, Blood 100 mmol/L (98-108); Creatinine, Blood 2.17 mg/dL (0.40-1.00); Globulin, Blood 4.8 g/dL (2.2-4.0); Glomerular Filtration Rate 26 (60-); Glucose, Blood 360 mg/dL (70-99); Potassium, Blood 4.2 mmol/L (3.5-5.5); Sodium, Blood 135 mmol/L (136-145); Total Protein, Blood 7.3 g/dL (6.4-8.2); Troponin I <0.015 ng/mL (0.000-0.040)
[2020-08-08] MEDS ORDERED: DOXY100 PO (15:31)
== END 2020-08-08 15:50 | disposition home or self-care (01) ==
LOC: ER 12:16
PROVIDERS: Physician Assistant
DX: E11.10 Type 2 diabetes mellitus with ketoacidosis without coma (principal); E11.22 Type 2 diabetes mellitus with diabetic chronic kidney disease; E11.65 Type 2 diabetes mellitus with hyperglycemia; N18.30 Chronic kidney disease, stage 3 unspecified; J44.0 Chronic obstructive pulmonary disease with (acute) lower respiratory infection; J18.9 Pneumonia, unspecified organism; Z88.1 Allergy status to other antibiotic agents; Z88.2 Allergy status to sulfonamides; Z88.0 Allergy status to penicillin; Z79.1 Long term (current) use of non-steroidal anti-inflammatories (NSAID); Z79.4 Long term (current) use of insulin; Z79.02 Long term (current) use of antithrombotics/antiplatelets; Z79.899 Other long term (current) drug therapy
CPT/HCPCS: 36415; 71046; 80053; 83880; 84484; 85025; 93005; 93010; 96374; 96375; 99285-25; J2405

== ENCOUNTER 2020-09-25 11:41 | Emergency (ER) | payer OTHER ==
[~2020-09-25] VITALS: Ht 121.9 cm; Wt 56.7 kg
[~2020-09-25 11:41] MED LIST changes: +DOXY100 PO
[2020-09-25 12:08] LABS: BASOPHILS ABSOLUTE AUTO 0.04 K/mm3 (0.00-0.23); BASOPHILS PERCENT AUTO 0 % (0-2); EOSINOPHILS PERCENT AUTO 0 % (0-6); Hematocrit 30.9 % (33.0-51.0); Hemoglobin 9.7 g/dL (11.5-16.0); IMMATURE GRAN ABSOLUTE AUTO 0.06 K/mm3 (0.00-0.10); IMMATURE GRAN PERCENT AUTO 1 % (0-1); LYMPHOCYTES ABSOLUTE AUTO 0.35 K/mm3 (0.84-5.20); LYMPHOCYTES PERCENT AUTO 3 % (21-46); MONOCYTES ABSOLUTE AUTO 0.42 K/mm3 (0.16-1.47); MONOCYTES PERCENT AUTO 3 % (4-13); Mean Corpuscular HGB 29.6 pg (26.0-34.0); Mean Corpuscular HGB Conc 31.4 g/dL (31.5-36.5); Mean Corpuscular Volume 94 fL (80-100); Mean Platelet Volume 10.5 fL (9.1-12.4); NEUTROPHILS ABSOLUTE AUTO 12.24 K/mm3 (1.96-9.15); NEUTROPHILS PERCENT AUTO 93 % (41-73); Platelet Count 384 K/mm3 (150-400); RDW Coefficient Variation 14.1 % (11.7-14.2); RDW Standard Deviation 47.9 fL (35.1-46.3); Red Blood Cell Count 3.28 M/mm3 (3.80-5.20); White Blood Cell Count 13.11 K/mm3 (4.00-11.30)
[2020-09-25 12:48] LABS: Albumin, Blood 2.4 g/dL (3.4-5.0); Albumin/Globulin Ratio 0.5 (0.8-1.8); Beta-hydroxybutyrate 35.4 mg/dL (0.2-2.8); Bilirubin, Total 0.4 mg/dL (0.1-1.0); Bun/Creatinine Ratio 17.9 (12.0-20.0); Calcium, Blood 8.9 mg/dL (8.5-10.1); Creatinine, Blood 2.29 mg/dL (0.40-1.00); Globulin, Blood 4.6 g/dL (2.2-4.0); Potassium, Blood 4.5 mmol/L (3.5-5.5)
[2020-09-25 14:55] LABS: Source, Urine Clean Catch
[2020-09-25 15:00] LABS: Bilirubin, Urine Neg (Neg); Blood, Urine 3+ (Neg); Glucose Qualitative, Urine 4+ (Neg); Ketones, Urine 3+ (Neg); Leukocyte Esterase, Urine Neg (Neg); Nitrite, Urine Neg (Neg); Protein, Urine 4+ (Neg); Specific Gravity, Urine 1.015 (1.003-1.022); Urobilinogen, Urine NORM (Normal)
[2020-09-25 15:02] LABS: Base Excess Venous -3.9 mmol/L; Bicarbonate Venous 21.2 mmol/L (24.0-30.0); PCO2 Venous 45.2 mmHg (38-42); PO2 Venous 88.4 mmHg (38-42); pH Blood Venous 7.31 (7.34-7.37)
[2020-09-25 15:18] LABS: Appearance, Urine Clear (Clear); Color, Urine Pale Yellow (P-Yellow)
[2020-09-25 15:19] LABS: Granular Casts 0-2 /lpf (0); Yeast/Fungi Urine Few /hpf
[2020-09-25 15:20] LABS: Bacteria Mod /hpf; Squamous Epithelial Cells Mod /hpf (Few)
== END 2020-09-25 16:30 | disposition home or self-care (01) ==
LOC: ER 11:41
PROVIDERS: Physician Assistant
DX: E11.65 Type 2 diabetes mellitus with hyperglycemia (principal); E11.22 Type 2 diabetes mellitus with diabetic chronic kidney disease; N18.30 Chronic kidney disease, stage 3 unspecified; E11.43 Type 2 diabetes mellitus with diabetic autonomic (poly)neuropathy; K31.84 Gastroparesis; J44.9 Chronic obstructive pulmonary disease, unspecified; Z87.891 Personal history of nicotine dependence
CPT/HCPCS: 36415; 80053; 81001; 82010; 82803; 85025; 87086; 93005; 93010; 96361; 96374; 99283-25; A9270; J1815; J2405; J7030

== ENCOUNTER 2020-10-19 14:56 | Inpatient (IN) | payer OTHER ==
[~2020-10-19] VITALS: Ht 142.2 cm; Wt 100.4 kg
[~2020-10-19 14:56] MED LIST changes: -ALBU2.5V5 INH; -ASPI325EC PO; -METH40 PO; -NOVOLOG FL100 UNIT/3 SC; -PANT20 PO
[2020-10-19 15:53] LABS: Bicarbonate Venous 19.2 mmol/L (24.0-30.0); PCO2 Venous 36.1 mmHg (38-42); pH Blood Venous 7.33 (7.34-7.37)
[2020-10-19 16:02] LABS: BASOPHILS ABSOLUTE AUTO 0.05 K/mm3 (0.00-0.23); BASOPHILS PERCENT AUTO 0 % (0-2); EOSINOPHILS PERCENT AUTO 0 % (0-6); Hematocrit 30.5 % (33.0-51.0); Hemoglobin 9.5 g/dL (11.5-16.0); IMMATURE GRAN ABSOLUTE AUTO 0.08 K/mm3 (0.00-0.10); IMMATURE GRAN PERCENT AUTO 1 % (0-1); LYMPHOCYTES ABSOLUTE AUTO 0.68 K/mm3 (0.84-5.20); LYMPHOCYTES PERCENT AUTO 6 % (21-46); MONOCYTES ABSOLUTE AUTO 0.76 K/mm3 (0.16-1.47); MONOCYTES PERCENT AUTO 6 % (4-13); Mean Corpuscular HGB 29.1 pg (26.0-34.0); Mean Corpuscular HGB Conc 31.1 g/dL (31.5-36.5); Mean Corpuscular Volume 94 fL (80-100); Mean Platelet Volume 10.1 fL (9.1-12.4); NEUTROPHILS ABSOLUTE AUTO 10.64 K/mm3 (1.96-9.15); NEUTROPHILS PERCENT AUTO 87 % (41-73); Platelet Count 496 K/mm3 (150-400); RDW Coefficient Variation 14.8 % (11.7-14.2); RDW Standard Deviation 51.5 fL (35.1-46.3); Red Blood Cell Count 3.26 M/mm3 (3.80-5.20); White Blood Cell Count 12.21 K/mm3 (4.00-11.30)
[2020-10-19 16:30] LABS: Albumin/Globulin Ratio 0.4 (0.8-1.8); Bilirubin, Total 0.2 mg/dL (0.1-1.0); Bun/Creatinine Ratio 14.5 (12.0-20.0); Calcium, Blood 8.6 mg/dL (8.5-10.1); Creatinine, Blood 2.96 mg/dL (0.40-1.00); Globulin, Blood 4.7 g/dL (2.2-4.0); Potassium, Blood 3.9 mmol/L (3.5-5.5); Total Protein, Blood 6.7 g/dL (6.4-8.2)
[2020-10-19] MEDS ORDERED: BASAGLAR K100 UNIT/6 SC ×2 (16:40)
[2020-10-19 16:50] LABS: Source, Urine Clean Catch
[2020-10-19 16:56] LABS: Appearance, Urine Clear (Clear); Bilirubin, Urine Neg (Neg); Blood, Urine 3+ (Neg); Color, Urine Yellow (P-Yellow); Glucose Qualitative, Urine 4+ (Neg); Ketones, Urine 3+ (Neg); Leukocyte Esterase, Urine Neg (Neg); Nitrite, Urine Neg (Neg); Protein, Urine 4+ (Neg); Specific Gravity, Urine 1.015 (1.003-1.022); Urobilinogen, Urine NORM (Normal)
[2020-10-19 17:02] LABS: Bacteria Mod /hpf; Red Blood Cells, Urine 0-2 /hpf (0-2); Squamous Epithelial Cells Many /hpf (Few)
[2020-10-19 17:07] LABS: U Amphetamine Screen Not Detected; U Barbituate Screen Not Detected; U Benzodiazapine Screen Not Detected; U Buprenorphine Screen Not Detected; U Cannabinoids Screen Not Detected; U Cocaine Screen Not Detected; U Methadone Screen DETECTED; U Methamphetamine Screen Not Detected; U Opiates Screen Not Detected; U Oxycodone Screen Not Detected; U Phencyclidine Screen Not Detected; U Propoxyphene Screen Not Detected
[2020-10-19 17:10] LABS: SARS-Cov-2 (COVID-19) PCR, MMC NEGATIVE (NEGATIVE)
[2020-10-19] MEDS ORDERED: NOVOLOG FL100 UNIT/3 SC (17:48)
[2020-10-19] MEDS ORDERED: METH40 PO (17:48)
[2020-10-19] MEDS ORDERED: PANT40 PO (17:49)
[2020-10-19] MEDS ORDERED: AMLO5 PO (17:49)
[2020-10-19] MEDS ORDERED: ASPI325EC PO (17:50)
[2020-10-19] MEDS ORDERED: IPRAT-ALBUT 0.5-3 ML NEB (17:51)
[2020-10-19] MEDS ORDERED: ALBU2.5V5 NEB (17:51)
[2020-10-19 19:31] LABS: Albumin/Globulin Ratio 0.4 (0.8-1.8); Bilirubin, Total 0.3 mg/dL (0.1-1.0); Bun/Creatinine Ratio 15.1 (12.0-20.0); Calcium, Blood 8.5 mg/dL (8.5-10.1); Creatinine, Blood 2.84 mg/dL (0.40-1.00); Globulin, Blood 4.6 g/dL (2.2-4.0); Potassium, Blood 3.9 mmol/L (3.5-5.5); Total Protein, Blood 6.6 g/dL (6.4-8.2)
[2020-10-19 23:46] LABS: Bun/Creatinine Ratio 14.6 (12.0-20.0); Calcium, Blood 8.7 mg/dL (8.5-10.1); Creatinine, Blood 2.95 mg/dL (0.40-1.00); Phosphorus, Blood 3.8 mg/dL (2.5-4.9); Potassium, Blood 4.1 mmol/L (3.5-5.5)
[2020-10-20 06:14] LABS: BASOPHILS ABSOLUTE AUTO 0.04 K/mm3 (0.00-0.23); BASOPHILS PERCENT AUTO 0 % (0-2); EOSINOPHILS PERCENT AUTO 0 % (0-6); Hematocrit 28.1 % (33.0-51.0); Hemoglobin 9.2 g/dL (11.5-16.0); IMMATURE GRAN ABSOLUTE AUTO 0.11 K/mm3 (0.00-0.10); IMMATURE GRAN PERCENT AUTO 1 % (0-1); LYMPHOCYTES ABSOLUTE AUTO 0.57 K/mm3 (0.84-5.20); LYMPHOCYTES PERCENT AUTO 4 % (21-46); MONOCYTES ABSOLUTE AUTO 0.23 K/mm3 (0.16-1.47); MONOCYTES PERCENT AUTO 1 % (4-13); Mean Corpuscular HGB 29.6 pg (26.0-34.0); Mean Corpuscular HGB Conc 32.7 g/dL (31.5-36.5); Mean Corpuscular Volume 90 fL (80-100); Mean Platelet Volume 10.2 fL (9.1-12.4); NEUTROPHILS ABSOLUTE AUTO 15.07 K/mm3 (1.96-9.15); NEUTROPHILS PERCENT AUTO 94 % (41-73); Platelet Count 487 K/mm3 (150-400); RDW Coefficient Variation 15.2 % (11.7-14.2); RDW Standard Deviation 49.5 fL (35.1-46.3); Red Blood Cell Count 3.11 M/mm3 (3.80-5.20); White Blood Cell Count 16.02 K/mm3 (4.00-11.30)
[2020-10-20 06:49] LABS: Albumin/Globulin Ratio 0.4 (0.8-1.8); Bilirubin, Total 0.3 mg/dL (0.1-1.0); Bun/Creatinine Ratio 13.8 (12.0-20.0); Calcium, Blood 8.6 mg/dL (8.5-10.1); Creatinine, Blood 3.19 mg/dL (0.40-1.00); Globulin, Blood 4.6 g/dL (2.2-4.0); Potassium, Blood 3.8 mmol/L (3.5-5.5); Total Protein, Blood 6.6 g/dL (6.4-8.2); Troponin I 0.324 ng/mL (0.000-0.040)
[2020-10-20 16:19] LABS: Hematocrit 25.1 % (33.0-51.0); Hemoglobin 8.2 g/dL (11.5-16.0); Mean Corpuscular HGB 29.1 pg (26.0-34.0); Mean Corpuscular HGB Conc 32.7 g/dL (31.5-36.5); Mean Corpuscular Volume 89 fL (80-100); Mean Platelet Volume 10.1 fL (9.1-12.4); Platelet Count 425 K/mm3 (150-400); RDW Coefficient Variation 15.5 % (11.7-14.2); RDW Standard Deviation 49.5 fL (35.1-46.3); Red Blood Cell Count 2.82 M/mm3 (3.80-5.20); White Blood Cell Count 16.68 K/mm3 (4.00-11.30)
[2020-10-20 16:43] LABS: Bun/Creatinine Ratio 14.2 (12.0-20.0); Calcium, Blood 8.3 mg/dL (8.5-10.1); Creatinine, Blood 3.39 mg/dL (0.40-1.00); Potassium, Blood 3.9 mmol/L (3.5-5.5)
[2020-10-20 16:56] LABS: Troponin I 3.36 ng/mL (0.000-0.040)
[2020-10-20 18:06] LABS: International Normalized Ratio 0.97; Prothrombin Time Results 10.5 Sec (9.7-11.5)
--- NOTE | 2020-10-20 19:35 | NUR ---
ADMISSION PT ARRIVED TO PCU AT APPROXIMATELY 1830. PT IS UNRESPONSIVE, SHE DID MOAN WHEN BEING TURNED BUT NO OTHER REACTION WAS PRESENT. PT HAD HIGH CBG AND HIGH BP UPON ARRIVAL AND WAS MEDICATED PER EMAR. PT HAD HER BRIEF AND TAN PAD CHANGED ON ADMISSION. PT WAS PLACED ON TELE AND IS NS. LOADING CHECKER PLACED A POWERGLIDE IN THE URA AND PT NOW HAS HEPARIN RUNNING. PT IS POSITIVE FOR LICE ON THE SCALP AND HAS BEEN PLACED IN ISOLATION. PT IS ON BIPAP 02/19 WITH 9L BLEED IN AND SATURATION IS 98% AND ABOVE.
--- NOTE | 2020-10-20 20:35 | NUR ---
PT IS LYING IN LOW SEMI FOWLERS POSITION IN BED. PT IS NON-RESPONSIVE TO VERBAL COMMUNICATION. PT RESPONDS TO PAIN, MOANS WHEN TURNING OR MOVING HER ARMS OR LEGS. YESSI - 4. PT IN SINUS TACH AT 104. CONTINUOUS BIOX ON. BIPAP ON 02/19 SETTINGS WITH 9L BLEED IN - SATS WNL. LS WITH UPPER LOBE WHEEZES, OTHERWISE LS ARE CLEAR. PT HAS 22G IV TO L) HAND AND L) FA - LR INFUSING AT 125 TO L FA IV SITE. HEPARIN 13UNITS/KG/HOUR = 14ML/HOUR TO KRZYSZTOF PG IV SITE. PT IS MORBIDLY OBESE. PT HAS DREDLOCKS IN HER HAIR, LICE NITS IN HER HAIR. ATTENDS ON. PT IS NPO AT THIS TIME. PT IN ISOLATION, WITH STICKY TAPE AT DOORWAY.
--- NOTE | 2020-10-21 01:23 | NUR ---
RECEIVED CRITICAL PTT RESULT - SEE LAB. QUESTIONING RESULT, HEPARIN WAS HELD FOR 2 MINUTES FROM [facility] SITE - THEN JANE BLOOD FOR LAB. NKECHI BLACKMAN NOTIFIED [facility] OF RESULTS - HE IS REQUESTING A LAB DRAW. NEW STAT ORDER PLACED FOR LAB FOR PTT.
[2020-10-21 04:46] LABS: Bun/Creatinine Ratio 12.9 (12.0-20.0); Calcium, Blood 8.1 mg/dL (8.5-10.1); Creatinine, Blood 3.64 mg/dL (0.40-1.00); Potassium, Blood 3.4 mmol/L (3.5-5.5)
[2020-10-21 05:11] LABS: Troponin I 3.48 ng/mL (0.000-0.040)
--- NOTE | 2020-10-21 05:48 | NUR ---
UPDATED DR. TERRY VIA TELEPHONE ON PT'S CREATININE AND GFR TREND - NO ORDERS OBTAINED. REPORTED THAT PT CONTINUES OBTUNDED. REVIEWED PT IS ON LR AT 125/HR.
--- NOTE | 2020-10-21 06:36 | NUR ---
SHIFT SUMMARY - PT CONTINUES OBTUNDED. KIDNEY FUNCTION CONTINUES TO DECLINE - DR. TERRY NOTIFIED THIS AM OF THIS DECLINE. PT IS CURRENTLY ON 4L O2 VIA NC - SATS WNL. CONTINUOUS BIOX ON. FLUIDS INFUSING TO L WRIST IV SITE WITHOUT COMPLICATIONS. HEPARIN INFUSING TO KRZYSZTOF POWER GLIDE WITHOUT COMPLICATIONS. PT IS NPO. BED ALARM ON FOR PT SAFETY.
[2020-10-21 09:55] LABS: Magnesium, Blood 1.9 mg/dL (1.6-2.4); Potassium, Blood 3.6 mmol/L (3.5-5.5)
[2020-10-21] MEDS ORDERED: ATOR80 PO (11:38)
[2020-10-21] MEDS ORDERED: DOCU100 PO (11:38)
[2020-10-21] MEDS ORDERED: METO5A PO (11:43)
[2020-10-21] MEDS ORDERED: METO25ER PO (11:44)
[2020-10-21] MEDS ORDERED: ONDA4 PO (11:44)
--- NOTE | 2020-10-21 11:51 | NUR ---
Echo to be held until 10/22/[address] Hernandez.
[2020-10-21 16:23] LABS: Source, Urine Catheter
[2020-10-21 16:26] LABS: Appearance, Urine Hazy (Clear); Bilirubin, Urine Neg (Neg); Blood, Urine 2+ (Neg); Color, Urine Yellow (P-Yellow); Glucose Qualitative, Urine 4+ (Neg); Ketones, Urine Neg (Neg); Leukocyte Esterase, Urine Neg (Neg); Nitrite, Urine Neg (Neg); Protein, Urine 4+ (Neg); Specific Gravity, Urine 1.015 (1.003-1.022); Urobilinogen, Urine NORM (Normal)
[2020-10-21 16:41] LABS: Amorphous Mod (0-Heavy); Bacteria Few /hpf; Granular Casts 0-2 /lpf (0); Hyaline Casts 0-2 /lpf (0-2); Red Blood Cells, Urine 0-2 /hpf (0-2); Squamous Epithelial Cells Few /hpf (Few)
[2020-10-21 16:45] LABS: Uric Acid, Blood 5.8 mg/dL (2.6-6.0)
[2020-10-21 16:47] LABS: Thyroid Stimulating Hormone 7.33 uIU/mL (0.360-4.800)
--- NOTE | 2020-10-21 18:42 | NUR ---
SHIFT SUMMARY PT HAS BEEN RESPONSIVE ONLY TO PAINFUL STIMULI TODAY. PT HAD A SEIZURE THIS AFTERNOON. THE SEIZURE LASTED APPROXIMATELY 25 SECONDS, PT'S EYES WERE OPEN AND ROLLED BACK, ATIVAN WAS ADMINISTERED. KEPPRA AND PRN ATIVAN WAS ADDED TO PT'S EMAR. PT HAS BEEN OBTUNDED, HEP GTT AND LR ARE RUNNING. NEPHROLOGY HAS BEEN CONSULTED AND PT NOW HAS A HOLLINGSWORTH AND A 24HR URINE ORDERED. CARDIOLOGY HAS BEEN CONSULTED WELL HOWEVER, NO PLANS WITH CARDIOLOGY DUE TO LESSENED KIDNEY FUNCTION. PT IS TO HAVE AN MRI TOMORROW. PT CONTINUES TO HAVE HIGH BP AND IS TREATED PER EMAR
[2020-10-22 03:54] LABS: Hematocrit 22.3 % (33.0-51.0); Hemoglobin 6.9 g/dL (11.5-16.0)
[2020-10-22 04:14] LABS: Albumin, Blood 1.5 g/dL (3.4-5.0); Anion Gap 6 mmol/L (6-16); Blood Urea Nitrogen 47 mg/dL (8-24); Bun/Creatinine Ratio 12.8 (12.0-20.0); CO2, Blood 24 mmol/L (21-32); Calcium, Blood 7.8 mg/dL (8.5-10.1); Chloride, Blood 111 mmol/L (98-108); Creatinine, Blood 3.68 mg/dL (0.40-1.00); Glomerular Filtration Rate 13 (60-); Glucose, Blood 144 mg/dL (70-99); Magnesium, Blood 1.9 mg/dL (1.6-2.4); Phosphorus, Blood 5.1 mg/dL (2.5-4.9); Potassium, Blood 3.5 mmol/L (3.5-5.5); Sodium, Blood 141 mmol/L (136-145)
--- NOTE | 2020-10-22 05:31 | NUR ---
THERAPIST'S ASSISTANT SUMMARY PT WAS OBTUNDED FOR THE FIRST HALF OF THE SHIFT BUT AWOKE AROUND MIDNIGHT AND WAS AXO X3. PT'S BP REMAINS ELEVATED AND GIVEN LABETALOL X 2 THIS SHIFT. PT HAD 1 BM THIS SHIFT W NO S/S OF BLEEDING ALTHOUGH HGB CAME BACK AT 6.9 IN AM LABS. PT REPORTS PAIN W ANY MOVEMENT. O2 SATS ARE >94% ON RM AIR WHEN TRHE PT IS AWAKE BUT THE PT HAS LONG APNEIC EPSIODE WHEN ASLEEP DROPPING O2 SATS <75% REQUIRING BIPAP. PT APPEARS NEUROLOGICALLY INTACT. 1 UNIT OF PRBC'S ORDERED THIS AM FOR LOW HGB. WILL REPORT TO ONCOMING RN. 24HR URINE COLLECTION STARTED AT 2145 ON 10/21/2020.
--- NOTE | 2020-10-22 10:52 | NUR ---
Echocardiogram completed.
--- NOTE | 2020-10-22 17:37 | NUR ---
SHIFT SUMMARY; ASSUMED CARE AT 0700, REPORT FROM KRISTI FLOYD. A/A/OX4 THROUGHOUT SHIFT. REPOSITIONS SELF IN BED, HOLLINGSWORTH CATH IN PLACE DRAINING TO GRAVITY BAG ON ICE FOR 24 HOUR URINE. LEFT SHOULDER IV REMOVED DUE TO LEAKING. HEMATOMA TO IV SITE. INSULIN COVERAGE PER EMAR. METHADONE RESTARTED TODAY PER HOME MED REC. MEDICATED PRN FOR HYPERTENSION PER EMAR. LEFT CHEEK ABSCESS DRY AND NON WEAPING. 02 3L WHEN SLEEPING PER HOME O2 USE. HEPARIN DC'D PER ORDERS, 1 UNIT PRBC FOR LOW HG. NO SIGNS OF GI BLEEDING. LARGE BROWN STOOL DURING SHIFT. WILL CONTINUE TO MONITOR AND TREAT UNTIL CHANGE OF SHIFT.
[2020-10-22 23:23] LABS: Protein, Urine Quantitative 271.5 mg/dL (0.0-11.9)
--- NOTE | 2020-10-23 07:47 | NUR ---
Rn summary: Patient was a PCU transfer to room 326. Pt is alert and oriented, very pleasant. Pt is in contact for head lice due to dreadlocks. Pt was having back pain but had good relief after methadone 50 mg given and slept most of the shift. Pt has PICC to rt forearm, which flushed well. Pt medicated x2 for increased blood pressure, see EMAR. Pt had a mod form stool, incontinent. Pt has a morrison cath and 24 hour urine was completed and sent to lab. call light in [facility], able to make needs known. Seizure pads on bed for precaution.
[2020-10-23 09:33] LABS: Hematocrit 24.3 % (33.0-51.0); Hemoglobin 7.7 g/dL (11.5-16.0)
[2020-10-23 11:49] LABS: Albumin, Blood 1.4 g/dL (3.4-5.0); Anion Gap 11 mmol/L (6-16); Blood Urea Nitrogen 48 mg/dL (8-24); Bun/Creatinine Ratio 14.5 (12.0-20.0); CO2, Blood 17 mmol/L (21-32); Calcium, Blood 7.3 mg/dL (8.5-10.1); Chloride, Blood 108 mmol/L (98-108); Creatinine, Blood 3.31 mg/dL (0.40-1.00); Glomerular Filtration Rate 15 (60-); Glucose, Blood 379 mg/dL (70-99); Magnesium, Blood 1.7 mg/dL (1.6-2.4); Phosphorus, Blood 4.8 mg/dL (2.5-4.9); Potassium, Blood 3.4 mmol/L (3.5-5.5); Sodium, Blood 136 mmol/L (136-145)
--- NOTE | 2020-10-23 16:53 | NUR ---
Palliative Care Consult for Symptom Management Pt resting in bed upon arrival. Pt reports current regimen is managing her pain. She denies dyspnea and nausea. Mild anxiety noted as evidenced by her continued statments of wanting to go home. Offered therapeutic listening as Pt reports her can provide all the care she needs at home. Continued therapeutic listening and validated concerns. Pt on the phone with someone and this RN ended visit. Spoke with AINSLEY Shearer and discussed case. Palliative Care will remain available.
--- NOTE | 2020-10-23 17:13 | NUR ---
SHIFT SUMMARY PT AOX3; INTERMITTENT CONFUSION. PT HAD MRI TODAY. PT ALSO HAS CONSISTENTLY HIGH BP- MEDICATION PER EMAR GIVEN AND PRN MEDICATION. PT TRIED TO WORK WITH OT TODAY. EDEL AGUILA'D WITH GOOD AMOUNT OF OUTPUT. PT HAS BEEN SLEEPING ALMOST ALL DAY. MEDICATED THE PT WITH SCHEDULED METHADONE. BED IS IN THE LOWEST POSITION AND CALL LIGHT WITH REACH
--- NOTE | 2020-10-23 23:30 | NUR ---
TRANSFER REPORT GIVEN TO POWER SAW MECHANIC TO ASSUME CARE OF PT. PT RESTING COMFORTABLY IN BED ON 15L O2 BEFORE TRANSFER, SATS UPPER 90'S ON STEPHIE BIOX. PHYSICAL ASSESSMENT REMAINS UNCHANGED. NO COMPLAINTS OF PAIN. PT VERY DROWSY BUT AWAKES TO VERBAL STIMULI. PT WILL NOT KEEP BIPAP ON THUS [address] VITALS ARE STABLE. PT TRANSFERED TO PCU 9 AT 2200.
--- NOTE | 2020-10-24 03:55 | NUR ---
SHIFT SUMMARY PT ER ADMIT THIS SHIFT FOR COVID. PT ARRIVES TO THE UNIT ON 3L O2, SATS WNL. LUNGS DIMINISHED T/O. PT BREATHIING IS LABORED WITH EXERTION. REMDESIVIR STARTED THIS SHIFT SHORTLY AFTER PT ARRIVAL. PT INDEPENDENT IN THE ROOM, MAKES NEEDS KNOWN. A/OX4, VITALS ARE STABLE. BED IN LOWEST POSITION, CALL LIGHT WITHIN REACH.
[2020-10-24 04:55] LABS: Hematocrit 23.7 % (33.0-51.0); Hemoglobin 7.4 g/dL (11.5-16.0)
[2020-10-24 05:17] LABS: Albumin, Blood 1.5 g/dL (3.4-5.0); Anion Gap 8 mmol/L (6-16); Blood Urea Nitrogen 49 mg/dL (8-24); Bun/Creatinine Ratio 13.7 (12.0-20.0); CO2, Blood 22 mmol/L (21-32); Calcium, Blood 7.6 mg/dL (8.5-10.1); Chloride, Blood 106 mmol/L (98-108); Creatinine, Blood 3.57 mg/dL (0.40-1.00); Glomerular Filtration Rate 14 (60-); Glucose, Blood 404 mg/dL (70-99); Magnesium, Blood 1.9 mg/dL (1.6-2.4); Potassium, Blood 3.4 mmol/L (3.5-5.5); Sodium, Blood 136 mmol/L (136-145)
--- NOTE | 2020-10-24 18:06 | NUR ---
SHIFT SUMMARY PATIENT MEDICATED SCHEDULED FOR PAIN. DENIES NAUSEA AND SHORTNESS OF BREATH. MAINTAINING OXYGEN SATURATION ABOVE 92% ON 4L/NC. WORKED WITH PT/OT TODAY. UP TWO ASSIST WITH STEP STOOL TO CHAIR/TOILET. ONE ASSIST WITH FWW FROM BED TO CHAIR. EATING AND DRINKING WELL. CARDIOLOGY CONSULTED PER NEUROLOGY RECOMMENDATION FOR CTA AND OSKAR. PLEASANT AND COOPERATIVE WITH CARE.
[2020-10-25 06:03] LABS: Hematocrit 25.3 % (33.0-51.0); Hemoglobin 7.9 g/dL (11.5-16.0)
[2020-10-25 06:09] LABS: Albumin, Blood 1.4 g/dL (3.4-5.0); Anion Gap 9 mmol/L (6-16); Blood Urea Nitrogen 48 mg/dL (8-24); Bun/Creatinine Ratio 13.5 (12.0-20.0); CO2, Blood 22 mmol/L (21-32); Calcium, Blood 7.7 mg/dL (8.5-10.1); Chloride, Blood 106 mmol/L (98-108); Creatinine, Blood 3.55 mg/dL (0.40-1.00); Glomerular Filtration Rate 14 (60-); Glucose, Blood 312 mg/dL (70-99); Magnesium, Blood 1.8 mg/dL (1.6-2.4); Phosphorus, Blood 4.7 mg/dL (2.5-4.9); Potassium, Blood 3.6 mmol/L (3.5-5.5); Sodium, Blood 137 mmol/L (136-145)
--- NOTE | 2020-10-25 06:33 | NUR ---
SHIFT SUMMARY A/O, ABLE TO MAKE NEEDS KNOWN. COOPERATIVE WITH CARE. CALLS OUT; YET REMINDED THAT CALL BUTTON WORKS. CONTINUE TO REINFORCE THAT CALL LIGHT IS WORKING. ANSWERS QUESTIONS APPROPRIATELY. NO C/O PAIN/DISCOMFORT; MEDICATED PER SCHEDULED EMAR. REMAINED RA >95%, RESPIRATIONS EVEN WITH EQUAL RISE/FALL. APPEARED TO REST MUCH OF THE NIGHT. NO ACUTE CHANGES NOTED. BED REMAINS IN LOWEST POSITION. CALL LIGHT AND BELONGINGS WITHIN REACH. CONTINUE WITH CURRENT PLAN OF CARE. REPORT TO ONCOMING RN.
[2020-10-25 10:52] LABS: Hematocrit 24.7 % (33.0-51.0); Hemoglobin 7.6 g/dL (11.5-16.0); Mean Corpuscular HGB 29.2 pg (26.0-34.0); Mean Corpuscular HGB Conc 30.8 g/dL (31.5-36.5); Mean Corpuscular Volume 95 fL (80-100); Mean Platelet Volume 11.4 fL (9.1-12.4); Platelet Count 315 K/mm3 (150-400); RDW Coefficient Variation 15.3 % (11.7-14.2); RDW Standard Deviation 53.1 fL (35.1-46.3); White Blood Cell Count 11.82 K/mm3 (4.00-11.30)
[2020-10-25 10:56] LABS: International Normalized Ratio 0.9; Prothrombin Time Results 9.8 Sec (9.7-11.5)
[2020-10-25 11:25] LABS: Bun/Creatinine Ratio 14.7 (12.0-20.0); Calcium, Blood 7.6 mg/dL (8.5-10.1); Creatinine, Blood 3.48 mg/dL (0.40-1.00); Potassium, Blood 3.5 mmol/L (3.5-5.5)
--- NOTE | 2020-10-25 20:16 | NUR ---
A+O but easily distracted, call light in reach, declined procedure due to fear of tube in throat, 2L via nc, saline locked, report shared with noc nurse
--- NOTE | 2020-10-26 04:04 | NUR ---
SHIFT SUMMMARY: PT A&OX3 CALM COOPERATIVE, LE EDEMA 2+, O2 @2LNC PT DECLINE TO WEAR, PT IS INCONTINENT WEARING ATTEND, NO ACUTE SS/SX OF DISTRESS, HOB @30 CALL LIGHT WITHIN REACH BED LOWERED.
[2020-10-26 06:09] LABS: Hematocrit 25.1 % (33.0-51.0); Hemoglobin 7.9 g/dL (11.5-16.0)
[2020-10-26 06:39] LABS: Albumin, Blood 1.4 g/dL (3.4-5.0); Anion Gap 6 mmol/L (6-16); Blood Urea Nitrogen 49 mg/dL (8-24); Bun/Creatinine Ratio 13.9 (12.0-20.0); CO2, Blood 24 mmol/L (21-32); Calcium, Blood 7.9 mg/dL (8.5-10.1); Chloride, Blood 107 mmol/L (98-108); Creatinine, Blood 3.53 mg/dL (0.40-1.00); Glomerular Filtration Rate 14 (60-); Glucose, Blood 255 mg/dL (70-99); Magnesium, Blood 1.9 mg/dL (1.6-2.4); Phosphorus, Blood 4.3 mg/dL (2.5-4.9); Sodium, Blood 137 mmol/L (136-145)
[2020-10-26] MEDS ORDERED: CLON.1 PO (14:07)
[2020-10-26] MEDS ORDERED: BUME1 PO (14:08)
--- NOTE | 2020-10-26 16:39 | NUR ---
PATIENT D/C'D TO HOME WITH SPOUSE. RX MEDICATIONS FAXED TO [facility]. DC INSTRUCTIONS AND EDUCATION DISCUSSED WITH PATIENT AND COPY PROVIDED. F/U APPOINTMENT MADE FOR THURSDAY WITH DR. CASTANEDA. PATIENT DENIES ANY FURTHER QUESTIONS OR CONCERNS.
[2020-10-27 12:10] LABS: METANEPHRINE, UR 61 ug/L (Undefined)
[2020-10-28 16:11] LABS: CREATININE, URINE 30.3 mg/dL (Not Estab.)
== END 2020-10-26 16:14 | disposition home health service (06) | DRG 637 ==
LOC: ER 14:56 → ERHOLD 14:57 → MEDS 22:08 → ERHOLD 22:08 → PCU 22:08 → ERHOLD 22:15 → PCU 10-20 18:26 → ERHOLD 10-20 18:26 → PCU 10-20 18:26 → MEDS 10-22 19:45 → ENPENDDIS 10-26 13:08 → MEDS 10-26 16:14
PROVIDERS: Emergency Medicine; Internal Medicine; Internal Medicine Cardiovascular Disease; Internal Medicine Nephrology; Pharmacist; ADMIT Internal Medicine
DX: E11.65 Type 2 diabetes mellitus with hyperglycemia (principal); G93.41 Metabolic encephalopathy; J96.01 Acute respiratory failure with hypoxia; N17.9 Acute kidney failure, unspecified; E87.1 Hypo-osmolality and hyponatremia; I13.0 Hypertensive heart and chronic kidney disease with heart failure and stage 1 through stage 4 chronic kidney disease, or unspecified chronic kidney disease; I50.32 Chronic diastolic (congestive) heart failure; E87.2 Acidosis; N18.4 Chronic kidney disease, stage 4 (severe); R65.10 Systemic inflammatory response syndrome (SIRS) of non-infectious origin without acute organ dysfunction; Z20.822 Contact with and (suspected) exposure to COVID-19; E11.22 Type 2 diabetes mellitus with diabetic chronic kidney disease; D63.1 Anemia in chronic kidney disease; J44.9 Chronic obstructive pulmonary disease, unspecified; I16.0 Hypertensive urgency; E87.6 Hypokalemia; E34.3 Short stature due to endocrine disorder; R77.8 Other specified abnormalities of plasma proteins; G47.33 Obstructive sleep apnea (adult) (pediatric); B85.0 Pediculosis due to Pediculus humanus capitis; E66.01 Morbid (severe) obesity due to excess calories; Q77.4 Achondroplasia; F11.90 Opioid use, unspecified, uncomplicated; Z88.1 Allergy status to other antibiotic agents; Z68.39 Body mass index [BMI] 39.0-39.9, adult; Z88.2 Allergy status to sulfonamides; Z88.8 Allergy status to other drugs, medicaments and biological substances; Z79.02 Long term (current) use of antithrombotics/antiplatelets; Z79.4 Long term (current) use of insulin; Z79.82 Long term (current) use of aspirin; Z79.899 Other long term (current) drug therapy; Z86.73 Personal history of transient ischemic attack (TIA), and cerebral infarction without residual deficits; Z86.718 Personal history of other venous thrombosis and embolism; Z88.0 Allergy status to penicillin
CPT/HCPCS: 36415; 36430; 51703; 70450; 70551; 71045; 76770; 80048; 80053; 80069; 81001; 81050; 82010; 82140; 82530; 82570; 82803; 82947; 83605; 83735; 83835; 83880; 84100; 84132; 84156; 84443; 84484; 84550; 84585; 85014; 85018; 85025; 85027; 85610; 85730; 86850; 86900; 86901; 86923; 93005; 93010; 93306; 93975; 94660; 94762; 96361-59; 96374; 96374-59; 96375; 96375-59; 97110; 97162; 97166; 97530; 97535; 99285-25; A9270; C1751; C9113; G0378; J0360; J0881; J1644; J1650; J1815; J1953; J2060; J7030; J7050; J7120; P9016; U0004

== ENCOUNTER 2020-11-01 09:31 | Inpatient (IN) | payer OTHER ==
[~2020-11-01] VITALS: Ht 121.9 cm; Wt 95.6 kg
[~2020-11-01 09:31] MED LIST changes: +ALBU2.5V5 NEB; +ASPI325EC PO; +BUME1 PO; +CLON.1 PO; +IPRAT-ALBUT 0.5-3 ML NEB; +METH40 PO; +NOVOLOG FL100 UNIT/3 SC; +PANT40 PO
[2020-11-01 10:05] LABS: Calcium, Ionized (POC) 1.09 mmol/L (1.10-1.46); Chloride (POC) 97 mmol/L (98-108); Creatinine (POC) 3.4 mg/dL (0.6-1.0); Glucose (ISTAT POC) >700 mg/dL (70-99); Hemoglobin (POC) 8.8 g/dL (12.0-16.0); Potassium (POC) 6.6 mmol/L (3.5-5.5); Sodium (POC) 127 mmol/L (135-148); Total CO2 (POC) 13 mmol/L (21-32)
[2020-11-01 10:31] LABS: Base Excess Venous -18.2 mmol/L; Bicarbonate Venous 11.6 mmol/L (24.0-30.0); PCO2 Venous 32.4 mmHg (38-42); PO2 Venous 177 mmHg (38-42); pH Blood Venous 7.14 (7.34-7.37)
[2020-11-01 10:51] LABS: Source, Urine Catheter
[2020-11-01 10:54] LABS: Appearance, Urine Clear (Clear); Bilirubin, Urine Neg (Neg); Blood, Urine 2+ (Neg); Color, Urine Yellow (P-Yellow); Glucose Qualitative, Urine 4+ (Neg); Ketones, Urine 2+ (Neg); Leukocyte Esterase, Urine Neg (Neg); Nitrite, Urine Neg (Neg); Protein, Urine 4+ (Neg); Urobilinogen, Urine NORM (Normal)
[2020-11-01 11:08] LABS: BASOPHILS ABSOLUTE AUTO 0.11 K/mm3 (0.00-0.23); BASOPHILS PERCENT AUTO 1 % (0-2); EOSINOPHILS PERCENT AUTO 0 % (0-6); Hematocrit 28.5 % (33.0-51.0); Hemoglobin 8.4 g/dL (11.5-16.0); IMMATURE GRAN ABSOLUTE AUTO 0.91 K/mm3 (0.00-0.10); IMMATURE GRAN PERCENT AUTO 5 % (0-1); LYMPHOCYTES ABSOLUTE AUTO 0.44 K/mm3 (0.84-5.20); LYMPHOCYTES PERCENT AUTO 2 % (21-46); MONOCYTES ABSOLUTE AUTO 0.95 K/mm3 (0.16-1.47); MONOCYTES PERCENT AUTO 5 % (4-13); Mean Corpuscular HGB Conc 29.5 g/dL (31.5-36.5); Mean Corpuscular Volume 102 fL (80-100); NEUTROPHILS ABSOLUTE AUTO 16.74 K/mm3 (1.96-9.15); NEUTROPHILS PERCENT AUTO 87 % (41-73); NRBC ABSOLUTE 0.02 K/mm3 (0.00-0.02); NRBC Auto 0.1 /100 WBC (0.0-0.2); RDW Standard Deviation 58.7 fL (35.1-46.3); White Blood Cell Count 19.15 K/mm3 (4.00-11.30)
[2020-11-01 11:11] LABS: Mean Platelet Volume 11.3 fL (9.1-12.4)
[2020-11-01 11:13] LABS: U Amphetamine Screen Not Detected; U Barbituate Screen Not Detected; U Benzodiazapine Screen Not Detected; U Buprenorphine Screen Not Detected; U Cannabinoids Screen Not Detected; U Cocaine Screen Not Detected; U Methadone Screen DETECTED; U Methamphetamine Screen Not Detected; U Opiates Screen Not Detected; U Oxycodone Screen Not Detected; U Phencyclidine Screen Not Detected; U Propoxyphene Screen Not Detected
[2020-11-01 11:29] LABS: Platelet Count 542 K/mm3 (150-400)
[2020-11-01 11:32] LABS: Amorphous Light (0-Heavy); Bacteria Rare /hpf; Red Blood Cells, Urine 0-2 /hpf (0-2); Squamous Epithelial Cells Few /hpf (Few)
[2020-11-01 12:20] LABS: SARS-Cov-2 (COVID-19) PCR, MMC NEGATIVE (NEGATIVE)
[2020-11-01 12:26] LABS: Albumin, Blood 1.7 g/dL (3.4-5.0); Albumin/Globulin Ratio 0.5 (0.8-1.8); Bilirubin, Total 0.4 mg/dL (0.1-1.0); Bun/Creatinine Ratio 16.6 (12.0-20.0); Creatinine, Blood 3.08 mg/dL (0.40-1.00); Globulin, Blood 3.7 g/dL (2.2-4.0); Potassium, Blood 5.1 mmol/L (3.5-5.5); Total Protein, Blood 5.4 g/dL (6.4-8.2)
[2020-11-01 12:50] LABS: Calcium, Ionized (POC) 1.16 mmol/L (1.10-1.46); Chloride (POC) 99 mmol/L (98-108); Creatinine (POC) 3.2 mg/dL (0.6-1.0); Glucose (ISTAT POC) >700 mg/dL (70-99); Hemoglobin (POC) 7.5 g/dL (12.0-16.0); Potassium (POC) 4.6 mmol/L (3.5-5.5); Sodium (POC) 130 mmol/L (135-148); Total CO2 (POC) 13 mmol/L (21-32)
[2020-11-01 13:21] LABS: Osmolality, Serum 349 mos/KG (275-300)
[2020-11-01 13:30] LABS: Acetaminophen, Random <2.0 ug/mL (10.0-30.0); CPK Creatine Kinase 132 U/L (26-193); Magnesium, Blood 1.7 mg/dL (1.6-2.4); Salicylate 2.6 mg/dL (2.8-20.0)
[2020-11-01 13:39] LABS: Beta-hydroxybutyrate 66.3 mg/dL (0.2-2.8); Phosphorus, Blood 7.4 mg/dL (2.5-4.9)
[2020-11-01 15:15] LABS: Glucose, Blood 790 mg/dL (70-99)
--- NOTE | 2020-11-01 15:22 | NUR ---
PT ARRIVED TO ROOM AT 1415 FROM ER. PT LETHARGIC, BUT MOANS WITH MOVEMENT. PT CURRENTLY ON INSULIN GTT AT 9U/HR WITH LAST KNOWN BLOOD SUGAR 894. NS BOLUS COMPLETED MAKING TOTAL OF 3L NS. STARTED LR AT 200ML AND STARTED VIBRAMYCIN. REPEAT LABS/GLUCOSE DRAWN AND RESULTS WERE [id number]. WILL CONT RATE AT 9U/HR. VITAL SIGNS REMAIN STABLE, CURRENTLY ON 2L NC. UNABLE TO COMPLETE HISTORY OR MED REC GIVEN PTS MENTAT STATUS AT THIS TIME.
[2020-11-01 16:07] LABS: Bun/Creatinine Ratio 16.9 (12.0-20.0); Calcium, Blood 7.5 mg/dL (8.5-10.1); Creatinine, Blood 3.07 mg/dL (0.40-1.00); Potassium, Blood 3.9 mmol/L (3.5-5.5)
--- NOTE | 2020-11-01 16:30 | NUR ---
1615-INCREASED INSULIN GTT TO 18U/HR CALLED AND UPDATED SPOUSE-KITA ON PTS CONDITION
[2020-11-01 17:52] LABS: Glucose, Blood 672 mg/dL (70-99)
--- NOTE | 2020-11-01 17:59 | NUR ---
GLUCOSE 672 CONTINUE SAME RATE OF 18U/HOUR
--- NOTE | 2020-11-01 18:31 | NUR ---
NEW ADMIT THIS AFTERNOON WITH DKA, TOXIC METABOLIC ENCEPHALOPATHY AND PNEUMONIA. PT REMAINS ON INSULIN GTT THAT IS AT 18UNITS/HR AND GLUCOSE IS COMING DOWN NICELY. PT STILL REMAINS LETHARGIC, BUT STIRS AND MOANS WITH MOVEMENT. VITAL SIGNS STABLE. LABS HAVE IMPROVED. WILL REPORT OFF TO NEXT SHIFT.
[2020-11-01 18:37] LABS: Glucose, Blood 600 mg/dL (70-99)
--- NOTE | 2020-11-01 18:52 | NUR ---
GLUCOSE 600 WILL CONT TO THE SAME RATE OF 18U/HR
[2020-11-01 19:44] LABS: Bun/Creatinine Ratio 17.9 (12.0-20.0); Creatinine, Blood 3.02 mg/dL (0.40-1.00); Potassium, Blood 3.5 mmol/L (3.5-5.5)
[2020-11-01 20:44] LABS: Glucose, Blood 517 mg/dL (70-99)
[2020-11-01 22:08] LABS: Glucose, Blood 444 mg/dL (70-99)
[2020-11-01 22:39] LABS: Glucose, Blood 390 mg/dL (70-99)
[2020-11-01 23:24] LABS: Glucose, Blood 344 mg/dL (70-99)
[2020-11-02 00:35] LABS: Alanine Aminotransfer (ALT/SGP 22 U/L (12-78); Albumin, Blood 1.6 g/dL (3.4-5.0); Albumin/Globulin Ratio 0.5 (0.8-1.8); Alk Phos 87 U/L (50-136); Anion Gap 9 mmol/L (6-16); Aspartate Aminotrans (AST/SGOT 28 U/L (12-37); Bilirubin, Total <0.1 mg/dL (0.1-1.0); Blood Urea Nitrogen 51 mg/dL (8-24); Bun/Creatinine Ratio 16.5 (12.0-20.0); CO2, Blood 23 mmol/L (21-32); Calcium, Blood 7.6 mg/dL (8.5-10.1); Chloride, Blood 106 mmol/L (98-108); Globulin, Blood 3.4 g/dL (2.2-4.0); Glomerular Filtration Rate 16 (60-); Glucose, Blood 259 mg/dL (70-99); Potassium, Blood 3.3 mmol/L (3.5-5.5); Sodium, Blood 138 mmol/L (136-145)
[2020-11-02 01:27] LABS: Glucose, Blood 189 mg/dL (70-99)
[2020-11-02 02:26] LABS: Glucose, Blood 131 mg/dL (70-99)
[2020-11-02 03:32] LABS: Glucose, Blood 90 mg/dL (70-99)
[2020-11-02 04:44] LABS: Glucose, Blood 71 mg/dL (70-99)
[2020-11-02 05:37] LABS: BASOPHILS ABSOLUTE AUTO 0.08 K/mm3 (0.00-0.23); BASOPHILS PERCENT AUTO 0 % (0-2); EOSINOPHILS PERCENT AUTO 0 % (0-6); Hematocrit 23.8 % (33.0-51.0); Hemoglobin 7.7 g/dL (11.5-16.0); IMMATURE GRAN ABSOLUTE AUTO 0.57 K/mm3 (0.00-0.10); IMMATURE GRAN PERCENT AUTO 2 % (0-1); LYMPHOCYTES ABSOLUTE AUTO 1.29 K/mm3 (0.84-5.20); LYMPHOCYTES PERCENT AUTO 4 % (21-46); MONOCYTES ABSOLUTE AUTO 2.86 K/mm3 (0.16-1.47); MONOCYTES PERCENT AUTO 8 % (4-13); Mean Corpuscular HGB 29.8 pg (26.0-34.0); Mean Corpuscular HGB Conc 32.4 g/dL (31.5-36.5); Mean Platelet Volume 9.9 fL (9.1-12.4); NEUTROPHILS PERCENT AUTO 86 % (41-73); NRBC ABSOLUTE 0.03 K/mm3 (0.00-0.02); NRBC Auto 0.1 /100 WBC (0.0-0.2); Platelet Count 469 K/mm3 (150-400); RDW Coefficient Variation 15.4 % (11.7-14.2); Red Blood Cell Count 2.58 M/mm3 (3.80-5.20)
[2020-11-02 05:48] LABS: Mean Corpuscular Volume 92 fL (80-100)
[2020-11-02 05:55] LABS: Albumin, Blood 1.6 g/dL (3.4-5.0); Albumin/Globulin Ratio 0.5 (0.8-1.8); Bilirubin, Total 0.2 mg/dL (0.1-1.0); Bun/Creatinine Ratio 15.6 (12.0-20.0); Calcium, Blood 7.8 mg/dL (8.5-10.1); Creatinine, Blood 3.08 mg/dL (0.40-1.00); Globulin, Blood 3.5 g/dL (2.2-4.0); Potassium, Blood 3.8 mmol/L (3.5-5.5); Total Protein, Blood 5.1 g/dL (6.4-8.2)
[2020-11-02 06:37] LABS: Glucose, Blood 138 mg/dL (70-99)
--- NOTE | 2020-11-02 06:51 | NUR ---
SHIFT SUMMARY PT RESTED WELL THROUGH THE NIGHT. REMAINED VERY LETHARGIC. NOT COOPERATIVE OR COMPLIANT WTIH CARE. INSULING GTT TURNED OFF AT THIS TIME, D51/2NS INFUSING. Q1 SUGAR CHECKS. TELE NSR. SATS >90% ON 2LNC. HOLLINGSWORTH IN PLACE, DRAINING TO GRAVITY, ALY CARE PERFOREMD. NO C/O PAIN, BUT DID C/O NAUSEA EARLIER - SEE EMAR. \ CALL LIGHT WITHIN REACH, BED IN LOWEST POSITION. WILL CONTINUE TO MONITOR.
[2020-11-02 08:12] LABS: Glucose, Blood 153 mg/dL (70-99)
--- NOTE | 2020-11-02 18:20 | NUR ---
SHIFT SUMMARY PT IS AO AND LETHARGIC THIS SHIFT. PT DENIES PAIN, N/V, SOB. PT TRANSFERRED FROM PCU TO MEDICAL THIS DUNG. PT IN CONTACT ISO FOR HEAD LICE. PT IS IN BED, CALL LIGHT IN REACH, LOW POSITION.
[2020-11-03 06:43] LABS: BASOPHILS ABSOLUTE AUTO 0.06 K/mm3 (0.00-0.23); BASOPHILS PERCENT AUTO 0 % (0-2); EOSINOPHILS ABSOLUTE AUTO 0.09 K/mm3 (0.00-0.68); EOSINOPHILS PERCENT AUTO 1 % (0-6); Hematocrit 21.3 % (33.0-51.0); Hemoglobin 6.7 g/dL (11.5-16.0); IMMATURE GRAN ABSOLUTE AUTO 0.15 K/mm3 (0.00-0.10); IMMATURE GRAN PERCENT AUTO 1 % (0-1); LYMPHOCYTES ABSOLUTE AUTO 1.09 K/mm3 (0.84-5.20); LYMPHOCYTES PERCENT AUTO 6 % (21-46); MONOCYTES ABSOLUTE AUTO 1.25 K/mm3 (0.16-1.47); MONOCYTES PERCENT AUTO 7 % (4-13); Mean Corpuscular HGB 29.8 pg (26.0-34.0); Mean Corpuscular HGB Conc 31.5 g/dL (31.5-36.5); Mean Corpuscular Volume 95 fL (80-100); Mean Platelet Volume 10.2 fL (9.1-12.4); NEUTROPHILS ABSOLUTE AUTO 16.58 K/mm3 (1.96-9.15); NEUTROPHILS PERCENT AUTO 86 % (41-73); Platelet Count 391 K/mm3 (150-400); RDW Coefficient Variation 15.7 % (11.7-14.2); RDW Standard Deviation 53.7 fL (35.1-46.3); Red Blood Cell Count 2.25 M/mm3 (3.80-5.20); White Blood Cell Count 19.22 K/mm3 (4.00-11.30)
[2020-11-03 06:48] LABS: Bun/Creatinine Ratio 15.9 (12.0-20.0); Calcium, Blood 7.2 mg/dL (8.5-10.1); Creatinine, Blood 3.4 mg/dL (0.40-1.00); Potassium, Blood 4.2 mmol/L (3.5-5.5)
--- NOTE | 2020-11-03 08:11 | NUR ---
SHIFT SUMMARY VSS. NO CHANGES.
--- NOTE | 2020-11-03 20:13 | NUR ---
SHIFT SUMMARY: NO ACUTE EVENTS. ONE UNIT PRBC'S TRANSFUSED WITHOUT INCIDENT, TOLERATED WELL. IS NOW ON ROOM AIR, SATS 92-94%. A&O X 3, PLEASANT. HAS CHRONIC GENERALIZED PAIN, METHADONE GIVEN. MODERATE APPETITE, TOLERATING PO. WANTS TO GO HOME TOMORROW.
--- NOTE | 2020-11-04 04:40 | NUR ---
SHIFT SUMMARY A/O, ABLE TO MAKE NEEDS KNOWN. COOPERATIVE WITH CARE. CALLS AND ANSWERS QUESTIONS APPROPRIATELY. NO C/O PAIN/DISCOMFORT. IV ABX INFUSED W/O COMPLICATIONS. APPEARED TO REST MUCH OF THE NIGHT. VERY EDEMATOUS FROM HIPS TO TOES. NO AUCTE CHANGES NOTED OVERNIGHT. BED IN LOWEST. CALL LIGHT AND BELONGINGS WITHIN REACH. CONTINUE WITH CURRENT PLAN OF CARE.
[2020-11-04 06:10] LABS: BASOPHILS ABSOLUTE AUTO 0.04 K/mm3 (0.00-0.23); BASOPHILS PERCENT AUTO 0 % (0-2); EOSINOPHILS ABSOLUTE AUTO 0.55 K/mm3 (0.00-0.68); EOSINOPHILS PERCENT AUTO 4 % (0-6); Hemoglobin 8.1 g/dL (11.5-16.0); IMMATURE GRAN PERCENT AUTO 1 % (0-1); LYMPHOCYTES ABSOLUTE AUTO 1.42 K/mm3 (0.84-5.20); LYMPHOCYTES PERCENT AUTO 11 % (21-46); MONOCYTES ABSOLUTE AUTO 1.19 K/mm3 (0.16-1.47); MONOCYTES PERCENT AUTO 9 % (4-13); Mean Corpuscular HGB 30.2 pg (26.0-34.0); Mean Corpuscular HGB Conc 32.4 g/dL (31.5-36.5); Mean Corpuscular Volume 93 fL (80-100); Mean Platelet Volume 10.1 fL (9.1-12.4); NEUTROPHILS ABSOLUTE AUTO 9.46 K/mm3 (1.96-9.15); NEUTROPHILS PERCENT AUTO 74 % (41-73); NRBC ABSOLUTE 0.03 K/mm3 (0.00-0.02); NRBC Auto 0.2 /100 WBC (0.0-0.2); Platelet Count 345 K/mm3 (150-400); RDW Coefficient Variation 14.9 % (11.7-14.2); RDW Standard Deviation 51.8 fL (35.1-46.3); Red Blood Cell Count 2.68 M/mm3 (3.80-5.20); White Blood Cell Count 12.76 K/mm3 (4.00-11.30)
--- NOTE | 2020-11-04 07:26 | NUR ---
SHIFT SUMMARY NO ACUTE CHANGES. PT SLEPT PART OF THE SHIFT IN HER BEDSIDE CHAIR, THEN TRANSFERRED WITH 2 STAFF ASSISTANCE TO THE BED. PT IS WEAK, AND STIFF WHEN MOVING FROM CHAIR TO BED. APPLIED POWDER TO SKIN FOLDS IN UPPER LEGS. PT IS EAGER TO GO HOME.
[2020-11-04] MEDS ORDERED: DOXY100 PO (10:34)
--- NOTE | 2020-11-04 19:27 | NUR ---
Patient sign says CONTACT, no hairnets are mentioned on sign. Confirmed lice is why she's in isolation. patient has dreadlocks and is not hygenic. I suggested to patient to cut her dreads off.
--- NOTE | 2020-11-04 21:17 | NUR ---
PATIENT DISCHARGED TO HOME WITH SPOUSE. RIJ TRIPLE LUMEN IV REMOVED WITHOUT INCIDENT, NO BLEEDING NOTED, INSTRUCTED HER TO LEAVE OCCLUSIVE DRESSING ON UNTIL TOMORROW. VERBALIZED UNDERSTANDING OF D/C INSTRUCTIONS. OFF UNIT AT 2034 VIA W/C. NO BELONGINGS LEFT BEHIND IN ROOM.
== END 2020-11-04 20:50 | disposition home or self-care (01) | DRG 917 ==
LOC: ER 09:31 → SURS 13:00 → ERHOLD 13:00 → SURS 14:14 → PCU 14:31 → SURS 14:33 → MEDS 11-02 13:01
PROVIDERS: Emergency Medicine; Hospitalist; Internal Medicine; Nurse Practitioner Acute Care; ADMIT Internal Medicine
PROC: 02HV33Z Insertion of Infusion Device into Superior Vena Cava, Percutaneous Approach (ICD-10-PCS; principal; 2020-11-01)
PROC: 30233N1 Transfusion of Nonautologous Red Blood Cells into Peripheral Vein, Percutaneous Approach (ICD-10-PCS; 2020-11-03)
DX: T40.2X1A Poisoning by other opioids, accidental (unintentional), initial encounter (principal); E11.10 Type 2 diabetes mellitus with ketoacidosis without coma; G92 Toxic encephalopathy; J18.9 Pneumonia, unspecified organism; N18.6 End stage renal disease; J44.0 Chronic obstructive pulmonary disease with (acute) lower respiratory infection; Z68.44 Body mass index [BMI] 60.0-69.9, adult; R65.10 Systemic inflammatory response syndrome (SIRS) of non-infectious origin without acute organ dysfunction; I12.0 Hypertensive chronic kidney disease with stage 5 chronic kidney disease or end stage renal disease; Z20.822 Contact with and (suspected) exposure to COVID-19; E87.5 Hyperkalemia; G47.33 Obstructive sleep apnea (adult) (pediatric); E11.22 Type 2 diabetes mellitus with diabetic chronic kidney disease; E66.01 Morbid (severe) obesity due to excess calories; G89.29 Other chronic pain; D63.1 Anemia in chronic kidney disease; K76.0 Fatty (change of) liver, not elsewhere classified; Z91.19 Patient's noncompliance with other medical treatment and regimen; Z88.0 Allergy status to penicillin; Z88.2 Allergy status to sulfonamides; Z88.1 Allergy status to other antibiotic agents; Z88.8 Allergy status to other drugs, medicaments and biological substances; Z79.4 Long term (current) use of insulin; Z79.82 Long term (current) use of aspirin; Z79.899 Other long term (current) drug therapy; Z86.718 Personal history of other venous thrombosis and embolism
CPT/HCPCS: 36415; 36430; 51702; 70450; 71045; 80047; 80048; 80053; 81001; 82010; 82550; 82803; 82947; 83605; 83735; 83880; 83930; 84100; 84145; 85014; 85025; 86850; 86900; 86901; 86923; 87040; 93005; 93010; 94762; 96360-59; 96361-59; 99285-25; A9270; C9113; G0480; J0692; J0696; J1644; J1815; J1940; J2405; J2765; J3480; J7030; J7042; J7050; J7120; P9016; U0004

== ENCOUNTER 2020-11-10 16:03 | Emergency (ER) | payer OTHER ==
[~2020-11-10] VITALS: Ht 121.9 cm; Wt 56.2 kg
[2020-11-10 19:37] LABS: Base Excess Venous 3.8 mmol/L; Bicarbonate Venous 27.4 mmol/L (24.0-30.0); PCO2 Venous 43.6 mmHg (38-42); PO2 Venous 142 mmHg (38-42); pH Blood Venous 7.42 (7.34-7.37)
[2020-11-10 19:38] LABS: BASOPHILS ABSOLUTE AUTO 0.04 K/mm3 (0.00-0.23); BASOPHILS PERCENT AUTO 1 % (0-2); EOSINOPHILS ABSOLUTE AUTO 0.06 K/mm3 (0.00-0.68); EOSINOPHILS PERCENT AUTO 1 % (0-6); Hematocrit 30.3 % (33.0-51.0); Hemoglobin 9.6 g/dL (11.5-16.0); IMMATURE GRAN ABSOLUTE AUTO 0.03 K/mm3 (0.00-0.10); IMMATURE GRAN PERCENT AUTO 0 % (0-1); LYMPHOCYTES ABSOLUTE AUTO 0.93 K/mm3 (0.84-5.20); LYMPHOCYTES PERCENT AUTO 12 % (21-46); MONOCYTES ABSOLUTE AUTO 1.18 K/mm3 (0.16-1.47); MONOCYTES PERCENT AUTO 16 % (4-13); Mean Corpuscular HGB 29.8 pg (26.0-34.0); Mean Corpuscular HGB Conc 31.7 g/dL (31.5-36.5); Mean Corpuscular Volume 94 fL (80-100); Mean Platelet Volume 10.2 fL (9.1-12.4); NEUTROPHILS ABSOLUTE AUTO 5.35 K/mm3 (1.96-9.15); NEUTROPHILS PERCENT AUTO 71 % (41-73); Platelet Count 420 K/mm3 (150-400); RDW Coefficient Variation 14.2 % (11.7-14.2); RDW Standard Deviation 48.1 fL (35.1-46.3); Red Blood Cell Count 3.22 M/mm3 (3.80-5.20); White Blood Cell Count 7.59 K/mm3 (4.00-11.30)
[2020-11-10 20:02] LABS: Albumin, Blood 1.9 g/dL (3.4-5.0); Albumin/Globulin Ratio 0.5 (0.8-1.8); Bilirubin, Total 0.3 mg/dL (0.1-1.0); Bun/Creatinine Ratio 24.7 (12.0-20.0); Calcium, Blood 8.5 mg/dL (8.5-10.1); Creatinine, Blood 2.47 mg/dL (0.40-1.00); Globulin, Blood 3.9 g/dL (2.2-4.0); Potassium, Blood 4.2 mmol/L (3.5-5.5); Total Protein, Blood 5.8 g/dL (6.4-8.2)
== END 2020-11-10 22:26 | disposition home or self-care (01) ==
LOC: ER 16:03
PROVIDERS: Emergency Medicine
DX: E11.65 Type 2 diabetes mellitus with hyperglycemia (principal); E11.22 Type 2 diabetes mellitus with diabetic chronic kidney disease; I12.9 Hypertensive chronic kidney disease with stage 1 through stage 4 chronic kidney disease, or unspecified chronic kidney disease; N18.30 Chronic kidney disease, stage 3 unspecified; J44.9 Chronic obstructive pulmonary disease, unspecified; Z79.4 Long term (current) use of insulin; Z88.1 Allergy status to other antibiotic agents; Z88.0 Allergy status to penicillin; Z88.2 Allergy status to sulfonamides; Z79.82 Long term (current) use of aspirin; Z79.899 Other long term (current) drug therapy; Z87.891 Personal history of nicotine dependence
CPT/HCPCS: 71045; 80053; 82803; 82947; 85025; 96374; 99284-25; A9270; J1815; J7120

== ENCOUNTER 2020-11-15 04:05 | Observation (INO) | payer OTHER ==
[~2020-11-15] VITALS: Ht 137.2 cm; Wt 79.4 kg
[2020-11-15 04:35] LABS: BASOPHILS ABSOLUTE AUTO 0.03 K/mm3 (0.00-0.23); BASOPHILS PERCENT AUTO 0 % (0-2); EOSINOPHILS ABSOLUTE AUTO 0.03 K/mm3 (0.00-0.68); EOSINOPHILS PERCENT AUTO 0 % (0-6); Hematocrit 31.4 % (33.0-51.0); Hemoglobin 9.9 g/dL (11.5-16.0); IMMATURE GRAN ABSOLUTE AUTO 0.06 K/mm3 (0.00-0.10); IMMATURE GRAN PERCENT AUTO 1 % (0-1); LYMPHOCYTES ABSOLUTE AUTO 0.76 K/mm3 (0.84-5.20); LYMPHOCYTES PERCENT AUTO 10 % (21-46); MONOCYTES ABSOLUTE AUTO 0.78 K/mm3 (0.16-1.47); MONOCYTES PERCENT AUTO 10 % (4-13); Mean Corpuscular HGB 29.6 pg (26.0-34.0); Mean Corpuscular HGB Conc 31.5 g/dL (31.5-36.5); Mean Corpuscular Volume 94 fL (80-100); Mean Platelet Volume 10.1 fL (9.1-12.4); NEUTROPHILS ABSOLUTE AUTO 6.34 K/mm3 (1.96-9.15); NEUTROPHILS PERCENT AUTO 79 % (41-73); Platelet Count 528 K/mm3 (150-400); RDW Coefficient Variation 14.6 % (11.7-14.2); RDW Standard Deviation 50.6 fL (35.1-46.3); Red Blood Cell Count 3.35 M/mm3 (3.80-5.20)
[2020-11-15 04:45] LABS: Calcium, Ionized (POC) 1.09 mmol/L (1.10-1.46); Chloride (POC) 95 mmol/L (98-108); Creatinine (POC) 3.5 mg/dL (0.6-1.0); Glucose (ISTAT POC) 155 mg/dL (70-99); Hemoglobin (POC) 10.5 g/dL (12.0-16.0); Potassium (POC) 3.4 mmol/L (3.5-5.5); Sodium (POC) 135 mmol/L (135-148); Total CO2 (POC) 29 mmol/L (21-32)
[2020-11-15 04:56] LABS: Troponin I 0.02 ng/mL (0.000-0.040)
[2020-11-15 04:57] LABS: Albumin/Globulin Ratio 0.5 (0.8-1.8); Bilirubin, Total 0.2 mg/dL (0.1-1.0); Bun/Creatinine Ratio 20.5 (12.0-20.0); Calcium, Blood 7.8 mg/dL (8.5-10.1); Creatinine, Blood 3.27 mg/dL (0.40-1.00); Globulin, Blood 3.9 g/dL (2.2-4.0); Potassium, Blood 3.2 mmol/L (3.5-5.5); Total Protein, Blood 5.9 g/dL (6.4-8.2)
[2020-11-15 07:18] LABS: PCO2 Arterial 57.2 mmHg (35-45); PO2 Arterial 58.9 mmHg (80-100); pH Blood Arterial 7.33 (7.35-7.45)
[2020-11-15 08:54] LABS: SARS-Cov-2 (COVID-19) PCR, MMC NEGATIVE (NEGATIVE)
[2020-11-15 10:08] LABS: Source, Urine Voided
[2020-11-15 10:47] LABS: Appearance, Urine Hazy (Clear); Bilirubin, Urine Neg (Neg); Blood, Urine 5+ (Neg); Color, Urine Yellow (P-Yellow); Glucose Qualitative, Urine 2+ (Neg); Ketones, Urine Neg (Neg); Leukocyte Esterase, Urine Neg (Neg); Nitrite, Urine Neg (Neg); Protein, Urine 4+ (Neg); Urobilinogen, Urine NORM (Normal)
[2020-11-15 10:58] LABS: U Amphetamine Screen Not Detected; U Barbituate Screen Not Detected; U Benzodiazapine Screen Not Detected; U Buprenorphine Screen Not Detected; U Cannabinoids Screen Not Detected; U Cocaine Screen Not Detected; U Methadone Screen DETECTED; U Methamphetamine Screen Not Detected; U Opiates Screen Not Detected; U Oxycodone Screen Not Detected; U Phencyclidine Screen Not Detected; U Propoxyphene Screen Not Detected
[2020-11-15 11:10] LABS: Bacteria Few /hpf; Red Blood Cells, Urine 25-50 /hpf (0-2); Squamous Epithelial Cells Mod /hpf (Few)
--- NOTE | 2020-11-15 16:02 | NUR ---
PT ARRIVED TO THE MEDICAL FLOOR VIA GURNY THIS AFTERNOON, THE PT IS PLEASANT AND COOPERATIVE. THE PT IS UP WITH ASSIST. THE PT APPEARS TO BE BREATHING EASILY ON RA AT THIS TIME. THE PT APPEARS TO HAVE HEAD LICE AND WILL BE TREATED FOR THAT. PT WAS ORIENTED TO THE ROOM LAYOUT AND CALL SYSTEM. CALL LIGHT IN REACH, WILL CONTINUE TO MONITOR AND ASSESS FOR CHANGES
[2020-11-16 05:22] LABS: BASOPHILS ABSOLUTE AUTO 0.05 K/mm3 (0.00-0.23); BASOPHILS PERCENT AUTO 0 % (0-2); EOSINOPHILS ABSOLUTE AUTO 0.02 K/mm3 (0.00-0.68); EOSINOPHILS PERCENT AUTO 0 % (0-6); Hematocrit 26.7 % (33.0-51.0); Hemoglobin 8.5 g/dL (11.5-16.0); IMMATURE GRAN ABSOLUTE AUTO 0.07 K/mm3 (0.00-0.10); IMMATURE GRAN PERCENT AUTO 1 % (0-1); LYMPHOCYTES ABSOLUTE AUTO 0.83 K/mm3 (0.84-5.20); LYMPHOCYTES PERCENT AUTO 7 % (21-46); MONOCYTES ABSOLUTE AUTO 1.16 K/mm3 (0.16-1.47); MONOCYTES PERCENT AUTO 10 % (4-13); Mean Corpuscular HGB 30.6 pg (26.0-34.0); Mean Corpuscular HGB Conc 31.8 g/dL (31.5-36.5); Mean Corpuscular Volume 96 fL (80-100); Mean Platelet Volume 10.9 fL (9.1-12.4); NEUTROPHILS ABSOLUTE AUTO 9.54 K/mm3 (1.96-9.15); NEUTROPHILS PERCENT AUTO 82 % (41-73); Platelet Count 459 K/mm3 (150-400); RDW Coefficient Variation 14.8 % (11.7-14.2); RDW Standard Deviation 51.8 fL (35.1-46.3); Red Blood Cell Count 2.78 M/mm3 (3.80-5.20); White Blood Cell Count 11.67 K/mm3 (4.00-11.30)
[2020-11-16 05:48] LABS: Albumin, Blood 1.6 g/dL (3.4-5.0); Albumin/Globulin Ratio 0.5 (0.8-1.8); Bilirubin, Total 0.3 mg/dL (0.1-1.0); Bun/Creatinine Ratio 20.7 (12.0-20.0); Calcium, Blood 7.8 mg/dL (8.5-10.1); Creatinine, Blood 3.28 mg/dL (0.40-1.00); Globulin, Blood 3.5 g/dL (2.2-4.0); Potassium, Blood 4.5 mmol/L (3.5-5.5); Total Protein, Blood 5.1 g/dL (6.4-8.2)
[2020-11-16 10:25] LABS: Glucose, Blood 682 mg/dL (70-99)
[2020-11-16 13:46] LABS: Glucose, Blood 563 mg/dL (70-99)
--- NOTE | 2020-11-16 18:42 | NUR ---
PT RESTING IN BED MAKING NO COMPLAINTS AT THIS TIME. PT REMAINS ALERT AND ORIENTED, NOT TO DATE AND TIME. PT WAS IN EXTREME PAIN AT BEGINNING OF SHIFT, METHADONE ORDER OBTAINED AND PT TREATED PER EMAR. NO OTHER ACUTE CHANGES. STAFF WILL CONT TO MONITOR.
[2020-11-17 06:31] LABS: BASOPHILS ABSOLUTE AUTO 0.04 K/mm3 (0.00-0.23); BASOPHILS PERCENT AUTO 0 % (0-2); EOSINOPHILS ABSOLUTE AUTO 0.12 K/mm3 (0.00-0.68); EOSINOPHILS PERCENT AUTO 1 % (0-6); Hematocrit 24.5 % (33.0-51.0); Hemoglobin 7.9 g/dL (11.5-16.0); IMMATURE GRAN ABSOLUTE AUTO 0.04 K/mm3 (0.00-0.10); IMMATURE GRAN PERCENT AUTO 0 % (0-1); LYMPHOCYTES ABSOLUTE AUTO 1.93 K/mm3 (0.84-5.20); LYMPHOCYTES PERCENT AUTO 19 % (21-46); MONOCYTES ABSOLUTE AUTO 1.12 K/mm3 (0.16-1.47); MONOCYTES PERCENT AUTO 11 % (4-13); Mean Corpuscular HGB Conc 32.2 g/dL (31.5-36.5); Mean Corpuscular Volume 93 fL (80-100); Mean Platelet Volume 10.3 fL (9.1-12.4); NEUTROPHILS ABSOLUTE AUTO 7.14 K/mm3 (1.96-9.15); NEUTROPHILS PERCENT AUTO 69 % (41-73); Platelet Count 447 K/mm3 (150-400); RDW Coefficient Variation 14.7 % (11.7-14.2); RDW Standard Deviation 50.5 fL (35.1-46.3); Red Blood Cell Count 2.63 M/mm3 (3.80-5.20); White Blood Cell Count 10.39 K/mm3 (4.00-11.30)
--- NOTE | 2020-11-17 06:35 | NUR ---
SHIFT SUMMARY - PT SLEPT THROUGHOUT MOST OF THE NIGHT WITH HER HOME CPAP IN PLACE. CRACKER AND SUGAR FREE SNACKS GIVEN AT 0600 THIS AM, PER PT REQUEST. PT HAS REMAINED ALERT AND ORIENTED X3 THROUGHOUT THE NIGHT. PT IN ISOLATION FOR LICE - PT HAS DREADLOCKS - STICKY TAPE OUTSIDE OF ROOM. NO ACUTE CHANGES THIS SHIFT. CALL LIGHT WITHIN REACH. BED IN LOW POSITION. FLUIDS AT BEDSIDE.
[2020-11-17 06:59] LABS: Albumin, Blood 1.6 g/dL (3.4-5.0); Anion Gap 8 mmol/L (6-16); Blood Urea Nitrogen 75 mg/dL (8-24); Bun/Creatinine Ratio 20.8 (12.0-20.0); CO2, Blood 29 mmol/L (21-32); Calcium, Blood 7.4 mg/dL (8.5-10.1); Chloride, Blood 97 mmol/L (98-108); Glomerular Filtration Rate 14 (60-); Glucose, Blood 60 mg/dL (70-99); Phosphorus, Blood 4.9 mg/dL (2.5-4.9); Potassium, Blood 4.4 mmol/L (3.5-5.5); Sodium, Blood 134 mmol/L (136-145)
--- NOTE | 2020-11-17 16:52 | NUR ---
DISCHARGE INSTRUCTIONS GIVEN TO PATIENT. ALL QUESTIONS ANSWERED. CHARGE NURSE REMOVED CENTRAL LINE; PATIENT LAYING FLAT AT THIS TIME. PATIENT STATES SHE WILL BE PICKED UP AT APPROX 1900 BY TO DISCHARGE HOME.
--- NOTE | 2020-11-18 07:30 | NUR ---
DC ORDER IS IN. PT TO BE DISCHARGED AFTER MORNING METHADONE IS ADMIN AND HARD SCRIP IS GIVEN FROM DR. CASTANEDA. NO CHANGES THIS SHIFT. NO IV ACCESS IT WAS REMOVED. STAFF WILL CONTINUE TO MONITOR.
--- NOTE | 2020-11-18 13:31 | NUR ---
D/C NOTE PT'S D/C ORDERS RECIEVED YESTERDAY AMD COMPLETED BY PREVIOUS RN. PT D/C HOME TODAY AFTER MORNING MEDICATIONS. PT WAS EXCORTED OUT BY W/C AND TAKEN HOME BY SPOUSE IN PRIVATE VEHICLE. PT REPORTS SHE HAS ARRANGED TO LABORER DRYING DEPARTMENT HER RX FOR PAIN MEDS WITH DR. CASTANEDA AT HIS OFFICE.
== END 2020-11-18 13:30 | disposition home or self-care (01) ==
LOC: ER 04:05 → ERHOLD 04:06 → MEDS 11:24
PROVIDERS: Emergency Medicine; Family Medicine; ADMIT Internal Medicine
DX: G92 Toxic encephalopathy (principal); J44.9 Chronic obstructive pulmonary disease, unspecified; E11.22 Type 2 diabetes mellitus with diabetic chronic kidney disease; I12.9 Hypertensive chronic kidney disease with stage 1 through stage 4 chronic kidney disease, or unspecified chronic kidney disease; N18.4 Chronic kidney disease, stage 4 (severe); E66.9 Obesity, unspecified; Z68.41 Body mass index [BMI] 40.0-44.9, adult; K21.9 Gastro-esophageal reflux disease without esophagitis; E86.0 Dehydration; Q77.4 Achondroplasia; R09.02 Hypoxemia; E11.43 Type 2 diabetes mellitus with diabetic autonomic (poly)neuropathy; K31.84 Gastroparesis; E11.649 Type 2 diabetes mellitus with hypoglycemia without coma; E87.6 Hypokalemia; D63.1 Anemia in chronic kidney disease; D47.3 Essential (hemorrhagic) thrombocythemia; G89.29 Other chronic pain; Z88.0 Allergy status to penicillin; Z88.1 Allergy status to other antibiotic agents; Z88.2 Allergy status to sulfonamides; Z88.8 Allergy status to other drugs, medicaments and biological substances; Z79.4 Long term (current) use of insulin; Z87.891 Personal history of nicotine dependence; Z86.73 Personal history of transient ischemic attack (TIA), and cerebral infarction without residual deficits; Z20.822 Contact with and (suspected) exposure to COVID-19
CPT/HCPCS: 36415; 36556; 36600; 71045; 80047; 80053; 80069; 81001; 82803; 82947; 84484; 85014; 85025; 93005; 93010; 96365-59; 96366-59; 96372; 96372-59; 96375-59; 99285-25; A9270; C1751; C9113; G0378; J1610; J1650; J1815; J2405; J3480; J7050; U0004

== ENCOUNTER 2020-12-21 10:43 | Inpatient (IN) | payer OTHER ==
[~2020-12-21] VITALS: Ht 121.9 cm; Wt 92.1 kg
[2020-12-21 11:21] LABS: BASOPHILS ABSOLUTE AUTO 0.07 K/mm3 (0.00-0.23); BASOPHILS PERCENT AUTO 0 % (0-2); EOSINOPHILS PERCENT AUTO 0 % (0-6); Hematocrit 25.7 % (33.0-51.0); Hemoglobin 8.1 g/dL (11.5-16.0); IMMATURE GRAN ABSOLUTE AUTO 0.12 K/mm3 (0.00-0.10); IMMATURE GRAN PERCENT AUTO 1 % (0-1); LYMPHOCYTES ABSOLUTE AUTO 0.96 K/mm3 (0.84-5.20); LYMPHOCYTES PERCENT AUTO 5 % (21-46); MONOCYTES ABSOLUTE AUTO 0.98 K/mm3 (0.16-1.47); MONOCYTES PERCENT AUTO 5 % (4-13); Mean Corpuscular HGB 29.8 pg (26.0-34.0); Mean Corpuscular HGB Conc 31.5 g/dL (31.5-36.5); Mean Corpuscular Volume 95 fL (80-100); Mean Platelet Volume 9.9 fL (9.1-12.4); NEUTROPHILS ABSOLUTE AUTO 17.96 K/mm3 (1.96-9.15); NEUTROPHILS PERCENT AUTO 89 % (41-73); Platelet Count 562 K/mm3 (150-400); RDW Coefficient Variation 14.9 % (11.7-14.2); RDW Standard Deviation 50.9 fL (35.1-46.3); Red Blood Cell Count 2.72 M/mm3 (3.80-5.20); White Blood Cell Count 20.09 K/mm3 (4.00-11.30)
[2020-12-21 11:50] LABS: Albumin, Blood 2.1 g/dL (3.4-5.0); Albumin/Globulin Ratio 0.4 (0.8-1.8); Base Excess Venous -9.2 mmol/L; Bicarbonate Venous 17.5 mmol/L (24.0-30.0); Bilirubin, Total 0.4 mg/dL (0.1-1.0); Bun/Creatinine Ratio 13.1 (12.0-20.0); Calcium, Blood 9.2 mg/dL (8.5-10.1); Creatinine, Blood 3.82 mg/dL (0.40-1.00); Globulin, Blood 5.3 g/dL (2.2-4.0); PO2 Venous 160 mmHg (38-42); Potassium, Blood 4.7 mmol/L (3.5-5.5); Total Protein, Blood 7.4 g/dL (6.4-8.2); Troponin I 0.296 ng/mL (0.000-0.040); pH Blood Venous 7.24 (7.34-7.37)
[2020-12-21 11:52] LABS: PCO2 Venous 42.3 mmHg (38-42)
[2020-12-21 13:01] LABS: PCO2 Arterial 41.9 mmHg (35-45); PO2 Arterial 46.2 mmHg (80-100); pH Blood Arterial 7.31 (7.35-7.45)
--- NOTE | 2020-12-21 14:46 | NUR ---
ADMIT PT ARRIVED TO ICU 13 VIA ER BED AT 1400. PT IS ON BIPAP 28/01, FIO2 100%. PT IS DROWSEY, BUT AWAKENS EASILY TO VERBAL STIMULI AND ANSWERS QUESTIONS APPROPRIATELY. PT DENIES PAIN OR DISCOMFORT. PT HYPERTENSIVE. NITRO GTT INFUSING AT 10 MCG/MIN. HOLLINGSWORTH TEMP PROBE IN PLACE WITH CLEAR YELLOW OUTPUT NOTED. WILL CONTINUE TO MONITOR.
[2020-12-21 14:48] LABS: Source, Urine Catheter
[2020-12-21 14:54] LABS: Appearance, Urine Clear (Clear); Bilirubin, Urine Neg (Neg); Blood, Urine 2+ (Neg); Color, Urine Yellow (P-Yellow); Glucose Qualitative, Urine 4+ (Neg); Ketones, Urine 2+ (Neg); Leukocyte Esterase, Urine Neg (Neg); Nitrite, Urine Neg (Neg); Protein, Urine 4+ (Neg); Specific Gravity, Urine 1.015 (1.003-1.022); Urobilinogen, Urine NORM (Normal)
[2020-12-21 15:04] LABS: Bacteria Few /hpf; Granular Casts 0-2 /lpf (0); Hyaline Casts 0-2 /lpf (0-2); Squamous Epithelial Cells Few /hpf (Few)
[2020-12-21 15:05] LABS: Transitional Epithelial Cells Rare /hpf (0-Rare)
--- NOTE | 2020-12-21 17:51 | NUR ---
SHIFT SUMMARY NO ACUTE CHANGES. PT REMAINS DROWSEY, BUT AROUSABLE TO VERBAL STIMULI. WHEN AWAKE PT FOLLOWS DIRECTIONS APPROPRIATELY. PT REMAINS ON BIPAP 15/, FIO2 100%. PT REMAINS HYPERTENSIVE. NITRO GTT INFUSING AT 75 MCG/MIN. OTHERWISE VITAL SIGNS STABLE. HOLLINGSWORTH TEMP PROBE REMAINS IN PLACE WITH CLEAR YELLOW URINE OUTPUT NOTED. PT SPOUSE UPDATED VIA PHONE. WILL CONTINUE TO MONITOR AND REPORT OFF TO ONCOMING RN.
[2020-12-22 03:30] LABS: BASOPHILS ABSOLUTE AUTO 0.05 K/mm3 (0.00-0.23); BASOPHILS PERCENT AUTO 0 % (0-2); EOSINOPHILS PERCENT AUTO 0 % (0-6); Hematocrit 21.3 % (33.0-51.0); Hemoglobin 6.6 g/dL (11.5-16.0); IMMATURE GRAN PERCENT AUTO 1 % (0-1); LYMPHOCYTES ABSOLUTE AUTO 0.95 K/mm3 (0.84-5.20); LYMPHOCYTES PERCENT AUTO 5 % (21-46); MONOCYTES ABSOLUTE AUTO 1.36 K/mm3 (0.16-1.47); MONOCYTES PERCENT AUTO 7 % (4-13); Mean Corpuscular HGB 29.9 pg (26.0-34.0); Mean Corpuscular Volume 96 fL (80-100); Mean Platelet Volume 9.8 fL (9.1-12.4); NEUTROPHILS PERCENT AUTO 88 % (41-73); Platelet Count 424 K/mm3 (150-400); RDW Coefficient Variation 15.1 % (11.7-14.2); RDW Standard Deviation 52.7 fL (35.1-46.3); Red Blood Cell Count 2.21 M/mm3 (3.80-5.20); White Blood Cell Count 19.76 K/mm3 (4.00-11.30)
[2020-12-22 03:50] LABS: Albumin, Blood 1.7 g/dL (3.4-5.0); Albumin/Globulin Ratio 0.4 (0.8-1.8); Bilirubin, Total 0.4 mg/dL (0.1-1.0); Bun/Creatinine Ratio 12.9 (12.0-20.0); Calcium, Blood 8.7 mg/dL (8.5-10.1); Creatinine, Blood 4.25 mg/dL (0.40-1.00); Globulin, Blood 4.4 g/dL (2.2-4.0); Potassium, Blood 4.2 mmol/L (3.5-5.5); Total Protein, Blood 6.1 g/dL (6.4-8.2)
--- NOTE | 2020-12-22 06:22 | NUR ---
SUMMARY NO ACUTE CHANGES OVER NIGHT. NEURO- A/OX4. AWAKES TO VERBAL STIMULI. PERRL. 3MM. CORONA, WEAK BLE. EQUAL AND STRONG HRIS DEVELOPER. CV-HR SINUS TACH AT BEGINING OF SHIFT. NOW NSR 95BPM. SBP CONTROLLED WITH NITRO GTT. GOAL REPORTED WAS 150-180SBP. HAS BEEN BETWEEN 120 AND 210 SBP WITH TITRATION. NITRO NOW ON 45MCG VS 75 AT START OF SHIFT. RESP. RR 12-17 MOST OF NIGHT. NIPPV DECREASED FROM 100% TO 50% BY 0230. AT 0500 PT REQUIRED INCREASE TO 60% TO KEEP SPO2 GREATER THAN 88%. IS COPD IN PT MED HX. LUNGS CLEAR T/O WITH GOOD PRODUCTIVE COUGH. GI-NPO, NO BM TONIGHT. DOCUMENTED INCONT OF STOOL IN ER 12/21. HYPOACTIVE BS. SOFT NONTENDER. BMI >60. - HOLLINGSWORTH CLEAR YELLOW. LASIX GIVEN AT MIDNIGHT. 650ML OUT FOR SHIFT. IS CKD STAGE 4 IN MED HX. SKIN-NOTED TO BE POSSIBLE NEW PRESSURE INJURY ON COCCYX. RED AREA NOTED AND IS COVERED WITH MEPILEX. Q2 TURNS CONTINUED. 2 PIV'S FLUSH AND INFUSING MEDS NEEDED.
--- NOTE | 2020-12-22 18:38 | NUR ---
SUMMARY PT A/O X4 TODAY. ON BIPAP 15/10 FIO2 50%. TRIALED PT ON HFNC A COUPLE TIMES BUT PT QUICKLY DROPS SATS TO LOW 80'S. PT DOES NOT GET SOB TO DISTRESSED WITH LOW SATS. ON NITRO GTT STILL. SPOKE WITH DR. NEAL WHO WILL BE STARTING PO MEDS. GOT ONE UNIT OF PRBC'S FOR DROP IN H&H. PT DENIES BLOODY BM'S OR ANY SIGN OF BLEEDING AT HOME. NO ACUTE CHANGES THIS SHIFT. PT CAN MOVE SELF IN BED AND USE CALL LIGHT.
[2020-12-23 03:25] LABS: BASOPHILS ABSOLUTE AUTO 0.04 K/mm3 (0.00-0.23); BASOPHILS PERCENT AUTO 0 % (0-2); EOSINOPHILS PERCENT AUTO 0 % (0-6); Hematocrit 21.8 % (33.0-51.0); IMMATURE GRAN ABSOLUTE AUTO 0.07 K/mm3 (0.00-0.10); IMMATURE GRAN PERCENT AUTO 1 % (0-1); LYMPHOCYTES ABSOLUTE AUTO 0.67 K/mm3 (0.84-5.20); LYMPHOCYTES PERCENT AUTO 5 % (21-46); MONOCYTES ABSOLUTE AUTO 1.45 K/mm3 (0.16-1.47); MONOCYTES PERCENT AUTO 10 % (4-13); Mean Corpuscular HGB 30.2 pg (26.0-34.0); Mean Corpuscular HGB Conc 32.1 g/dL (31.5-36.5); Mean Corpuscular Volume 94 fL (80-100); Mean Platelet Volume 9.8 fL (9.1-12.4); NEUTROPHILS ABSOLUTE AUTO 12.42 K/mm3 (1.96-9.15); NEUTROPHILS PERCENT AUTO 85 % (41-73); NRBC ABSOLUTE 0.02 K/mm3 (0.00-0.02); NRBC Auto 0.1 /100 WBC (0.0-0.2); Platelet Count 352 K/mm3 (150-400); RDW Coefficient Variation 15.2 % (11.7-14.2); RDW Standard Deviation 50.8 fL (35.1-46.3); Red Blood Cell Count 2.32 M/mm3 (3.80-5.20); White Blood Cell Count 14.65 K/mm3 (4.00-11.30)
[2020-12-23 03:42] LABS: Albumin, Blood 1.5 g/dL (3.4-5.0); Anion Gap 8 mmol/L (6-16); Blood Urea Nitrogen 57 mg/dL (8-24); Bun/Creatinine Ratio 13.3 (12.0-20.0); CO2, Blood 23 mmol/L (21-32); Calcium, Blood 8.9 mg/dL (8.5-10.1); Chloride, Blood 106 mmol/L (98-108); Glomerular Filtration Rate 11 (60-); Glucose, Blood 188 mg/dL (70-99); Phosphorus, Blood 7.1 mg/dL (2.5-4.9); Potassium, Blood 3.8 mmol/L (3.5-5.5); Sodium, Blood 137 mmol/L (136-145)
--- NOTE | 2020-12-23 06:29 | NUR ---
SUMMARY NEURO WNL RESP DECREASED FIO2 ON NIPPV. 35% 28/12. CLEAR. CV NSR-ST 95-110. SBP HAS BEEN BETWEEN 160 AND 190. NITRO GTT STOPPED AND NITRO PASTE APPLIED PER ORDERS. GI- NPO NO BM. ACTIVE BS ON LASIX FOR UOP 150ML/HR. AT 15MG/HR HAS ACHIEVED GOAL UOP. SKIN UNCHANGED
--- NOTE | 2020-12-23 17:59 | NUR ---
SUMMARY PT RESTING IN BED. A/O X4. HAS BEEN ABLE TO TAKE BREAKS FROM BIPAP TODAY ON 8-10L HFNC. EATING WITHOUT ISSUE. ON LASIX GTT TO MAINTAIN UO OF 150ML/HR. DR. CASTANEDA CONSULTED BY DR. NEAL TODAY. PLAN TO HAVE DIALYSIS CATH PLACED TOMORROW BY DR. SHAFFER. PO MEDS FOR HTN WERE STARTED TODAY. NO OTHER CHANGES TODAY.
--- NOTE | 2020-12-23 19:30 | NUR ---
ASSUMED CARE PATIENT LYING IN BED; AWAKE AND WATCHING TELEVISION. NO FAMILY AT BEDSIDE AT THIS TIME. NC IN PLACE AND LASIX INF @ 20MG/HR. CONTAINERS OF ICE ON THE GROUND W/ URINE CONTAINERS AND HOLLINGSWORTH FOR 24HR URINE COLLECTION. PATIENT MAKES EYE CONTACT W/ STAFF FROM [employer]ORWAY.
--- NOTE | 2020-12-23 22:00 | NUR ---
ATRIAL FLUTTER/DILTIAZEM GTT PATIENT BECAME TACHYCARDIC W/ RATE IN 150'S-180'S AND HYPERTENSIVE W/ SBP 180'S-200'S. RHYTHM CHANGED FROM NSR TO ATRIAL FLUTTER AT THIS TIME. CALL MADE TO DR. NEAL AND ORDERS FOR DILTIAZEM GTT GIVEN.
[2020-12-24 04:03] LABS: BASOPHILS ABSOLUTE AUTO 0.03 K/mm3 (0.00-0.23); BASOPHILS PERCENT AUTO 0 % (0-2); EOSINOPHILS ABSOLUTE AUTO 0.02 K/mm3 (0.00-0.68); EOSINOPHILS PERCENT AUTO 0 % (0-6); Hematocrit 21.1 % (33.0-51.0); Hemoglobin 6.8 g/dL (11.5-16.0); IMMATURE GRAN ABSOLUTE AUTO 0.17 K/mm3 (0.00-0.10); IMMATURE GRAN PERCENT AUTO 1 % (0-1); LYMPHOCYTES PERCENT AUTO 6 % (21-46); MONOCYTES ABSOLUTE AUTO 1.03 K/mm3 (0.16-1.47); MONOCYTES PERCENT AUTO 9 % (4-13); Mean Corpuscular HGB 30.1 pg (26.0-34.0); Mean Corpuscular HGB Conc 32.2 g/dL (31.5-36.5); Mean Corpuscular Volume 93 fL (80-100); Mean Platelet Volume 10.2 fL (9.1-12.4); NEUTROPHILS ABSOLUTE AUTO 10.07 K/mm3 (1.96-9.15); NEUTROPHILS PERCENT AUTO 84 % (41-73); NRBC ABSOLUTE 0.03 K/mm3 (0.00-0.02); NRBC Auto 0.2 /100 WBC (0.0-0.2); Platelet Count 370 K/mm3 (150-400); RDW Coefficient Variation 15.1 % (11.7-14.2); RDW Standard Deviation 50.4 fL (35.1-46.3); Red Blood Cell Count 2.26 M/mm3 (3.80-5.20); White Blood Cell Count 12.02 K/mm3 (4.00-11.30)
[2020-12-24 04:20] LABS: Albumin, Blood 1.4 g/dL (3.4-5.0); Anion Gap 9 mmol/L (6-16); Blood Urea Nitrogen 63 mg/dL (8-24); Bun/Creatinine Ratio 14.6 (12.0-20.0); CO2, Blood 25 mmol/L (21-32); Calcium, Blood 8.6 mg/dL (8.5-10.1); Chloride, Blood 101 mmol/L (98-108); Creatinine, Blood 4.32 mg/dL (0.40-1.00); Glomerular Filtration Rate 11 (60-); Glucose, Blood 322 mg/dL (70-99); Magnesium, Blood 1.9 mg/dL (1.6-2.4); Phosphorus, Blood 7.9 mg/dL (2.5-4.9); Potassium, Blood 3.6 mmol/L (3.5-5.5); Sodium, Blood 135 mmol/L (136-145)
--- NOTE | 2020-12-24 06:31 | NUR ---
SHIFT SUMMARY PATIENT REMAINED ON BIPAP MOST OF THE NIGHT W/ PRESSURES DECREASED TO 12/6 AND REMAINED AT 35% FIO2. PATIENT WAS ABLE TO LIFT MASK FOR SHORT PERIODS TO DRINK WATER AND EAT APPLESAUCE. PATIENT SLEPT THROUGH THE NIGHT EXCEPT TO MAKE NEEDS KNOWN TO STAFF. HR REMAINED 70'S-90'S AND SBP IMPROVED TO 130'S-150'S W/ DILTIAZEM; CONVERTED BACK TO NSR W/ DECREASED HEART RATE. PATIENT DOES STILL SAY IT IS 2000. WHEN REPEATED BACK TO THE PATIENT SHE CONFIRMED THAT IS WHAT SHE SAID.
--- NOTE | 2020-12-24 13:15 | NUR ---
DR. SHAFFER AT BEDSIDE FOR CONSENT FOR PERMACATH PLACEMENT.
--- NOTE | 2020-12-24 17:52 | NUR ---
Pt is currently in the ICU, getting ready to transfer to PCU as her pulmonary edema has improved. Pt denies pain at this time. Will attempt another visit after the move to PCU.
--- NOTE | 2020-12-24 18:28 | NUR ---
SHIFT SUMMARY NO ACUTE EVENTS THIS SHIFT, VSS. PT ON BIPAP AT START OF SHIFT, SWITCHED OVER TO 5 L VIA NASAL CANNULA THIS MORNING, TITRATED DOWN TO 3 L BY END OF SHIFT. PATIENT ENDORSES THAT SHE USUALLY USES CPAP AT NIGHT. PT ALERT AND ORIENTED, ABLE TO CALL APPROPRIATELY. NSR WITH PVCs THIS SHIFT. PT WAS NPO FOR POSSIBLE PERMACATH PLACEMENT. PT STILL ENDORSES THAT IT IS DECEMBER OF 2000. PT WAS UNABLE TO GO TO SURGEON ASSISTANT DUE TO UNTREATED LICE, PT INFORMED OF THIS. PT DISCUSSED WITH SPOUSE, PT AGREED TO HAIR CUT BY STAFF TO REMOVE DREADLOCKS AND APPLY THOROUGH LICE TREATMENT IN ORDER TO COMPLETE SURGEON ASSISTANT PROCEDURE TOMORROW. PT WAS AGREEABLE DURING HAIR CUT. PT WAS ABLE TO ASSIST WITH REPOSITIONING DURING HAIRCUT, HAIR TREATMENT AND BEDBATH. PT ENDORSED THAT SHE WAS "HAPPY TO GET THIS DONE TO TAKE CARE OF MY HEALTH" IN REFERENCE TO HAIRCUT. PT DENIED CHEST PAIN/PRESSURE THIS SHIFT. PT COMPLAINED OF CHRONIC BACK PAIN, MANAGED TO PATIENT'S SATISFACTION WITH REPOSITIONING.
--- NOTE | 2020-12-24 19:33 | NUR ---
REPORT GIVEN TO SIVA RN IN PCU, NATALIO RN IN ICU TO CONTINUE TO MONITOR PATIENT UNTIL TRANSFER FROM ICU TO PCU COMPLETE.
--- NOTE | 2020-12-24 20:03 | NUR ---
TRANSFER TO PCU: DURING REPORT, PATIENT WAS ATTEMPTED TO BE TRANSFERRED TO PCU 14 BUT WHEN THEY GOT THERE, THE ROOM WAS NOT CLEAN. SHE WAS BROUGHT BACK TO ICU 13 AND I WAS GIVEN A BRIEF REPORT FROM MATILDE RN. SHE STATES SHE WILL GIVE THE RESTAURANT WORKER REPORT. SPOKE WITH RESTAURANT WORKER WHO STATES THE ROOM IS BEING CLEANED AND SHE WILL LET ME KNOW ONCE IT'S READY. PATIENT CURRENTLY AWAKE IN BED ON 3L NC WITH VS WNL.
--- NOTE | 2020-12-25 03:46 | NUR ---
SHIFT SUMMARY- HOSPITALIST AND RENAL DR. NOTIFICATIONS RECEIEVED REPORT FROM DAY SHIFT RN'S AT BEDSIDE. THIS RN'S FIRST QUICK ASSESSMENT DONE AT BEDSIDE WITH DAY SHIFT RN'S TO GET A BASELINE; PT DIFFICULT TO AROUSE/LETHARGIC. WHEN BUE MOVED PT WOULD STATE "OW." DID NOT FOLLOW COMMANDS. PER DAY SHIFT RN'S THIS IS PT'S BASELINE. 2039 DR. CASTANEDA WAS NOTIFIED OF CRITICAL BS 35 AND CRITICAL K 6.2. ORDERS WERE GIVEN AND FOLLOWED ORDERS AND HOSPITAL PROTOCOLS. PER DR. CASTANEDA STAT LAB DRAW AND NOTIFY OF RESULTS AND BS. CHARGE NURSE NKECHI WAS IN ROOM HELPING AND NOTIFIED OF UPDATES. ALSO, AT THE TIME Taylor WALLIS RN HELPING IN ROOM TO STABILIZE PT. [address]199 DR[address] CASTANEDA NOTIFIED OF CRITICAL K 6.1 AND BS STABLE. PER DR. CASTANEDA ORDERS DO NOT GIVE ANYTHING AT THE TIME FOR THE K 6.1 AND CONT. WITH FLUIDS. TO REDRAW MORING LABS AND CALL BACK FOR AN UPDATE. CHARGE NURSE NKECHI NOTIFIED. PT DIFFICULT TO AROUSE BUT SPONTANEOUSLY WAKES UP WHEN COUGHING. ONLY FOLLOWED SIMPLE COMMANDS WHEN TOLD TO OPEN AND CLOSE MOUTH TO SUCTION. ABOUT 3 DIFFERENT TIMES PT WOKE UP AND STATED "COLD". ON TELE ST IN THE 110'S-120'S. WHEN PT COUGHING AND FEBRILE HR IN THE 130'S MEDICATED PER EMAR/ORDERS. HR DECREASED IN THE LOW 110'S-120'S. PT WAS FEBRILE DURING T/O THE NIGHT WITH A LOW GRADE FEVER THAT STARTED TO INCREASE AROUND MIDNIGHT; RECTAL TEMP 102.O GAVE SUPPOSITORY TYLENOL PER EMAR/ORDERS. WHEN RECHECKED PT. TEMP INCREASED AND HR ELEVATED AGAIN IN THE 130'S. [address] TERRY ON PT'S CONDITION AND THAT TYLENOL DID NOT HELP WITH PT FEVER AND HR HAD INCREASED AGAIN IN THE 130'S. ALSO, THAT BUE HAD SIGNIFICANTLY INCREASED IN SWELLING WITH THE R. HAND BECOMING RED. INCREASED RIGORS. ORDER FOR SUPPOSITORY ASPIRIN WAS GIVEN AND TO CONT. TO MONITOR PT. POLICE CHIEFNKECHI BERRY WAS NOTIFIED AND UPDATED. CONT. WITH ELEVATING BUE AND BLE WITH Q2H REPOSITIONING. SEN BERRY AT BEDSIDE HELPING WITH PT'S CARE. 0150 CHARGE NURSEANETA IN ICU WAS NOTIFIED AND CAME TO BEDSIDE. REVIEWED PT'S CONDITION. COOLING BLANKET WAS PLACED ON PT TO HELP WITH FEVER. AFTER COOLING BLANKET PLACED AND SUPPOSETORY OF ASPIRIN DOSE. FEVERS STARTED TO SLOWLY DECREASE AND HR IN THE 120'S. HOLLINGSWORTH IN PLACE; YELLOW CLEAR COLOR URINE. HAS FOAM ON COCCYX AREA FOR AN OPEN AREA THAT WAS PRESENT ON ADMISSION. BP'S AND BS'S STABLE. WAS PLACED ON 2L NC BECAUSE O2 WAS DECREASING WHEN SLEEPING. NEURO CHECKS CONT. UNCHANGED. R. ARM WAS MARKED FOR NOTED RED AREA AROUND HAND. WILL CONT. WITH PLAN OF CARE.
[2020-12-25 04:40] LABS: BASOPHILS ABSOLUTE AUTO 0.05 K/mm3 (0.00-0.23); BASOPHILS PERCENT AUTO 1 % (0-2); EOSINOPHILS ABSOLUTE AUTO 0.04 K/mm3 (0.00-0.68); EOSINOPHILS PERCENT AUTO 0 % (0-6); Hematocrit 21.7 % (33.0-51.0); Hemoglobin 6.9 g/dL (11.5-16.0); IMMATURE GRAN ABSOLUTE AUTO 0.06 K/mm3 (0.00-0.10); IMMATURE GRAN PERCENT AUTO 1 % (0-1); LYMPHOCYTES ABSOLUTE AUTO 1.07 K/mm3 (0.84-5.20); LYMPHOCYTES PERCENT AUTO 11 % (21-46); MONOCYTES ABSOLUTE AUTO 1.05 K/mm3 (0.16-1.47); MONOCYTES PERCENT AUTO 11 % (4-13); Mean Corpuscular HGB 29.7 pg (26.0-34.0); Mean Corpuscular HGB Conc 31.8 g/dL (31.5-36.5); Mean Corpuscular Volume 94 fL (80-100); Mean Platelet Volume 10.3 fL (9.1-12.4); NEUTROPHILS ABSOLUTE AUTO 7.66 K/mm3 (1.96-9.15); NEUTROPHILS PERCENT AUTO 77 % (41-73); Platelet Count 415 K/mm3 (150-400); RDW Coefficient Variation 14.8 % (11.7-14.2); RDW Standard Deviation 49.9 fL (35.1-46.3); Red Blood Cell Count 2.32 M/mm3 (3.80-5.20); White Blood Cell Count 9.93 K/mm3 (4.00-11.30)
[2020-12-25 05:21] LABS: Magnesium, Blood 1.8 mg/dL (1.6-2.4)
[2020-12-25 05:22] LABS: Albumin, Blood 1.4 g/dL (3.4-5.0); Anion Gap 10 mmol/L (6-16); Blood Urea Nitrogen 65 mg/dL (8-24); Bun/Creatinine Ratio 14.3 (12.0-20.0); CO2, Blood 24 mmol/L (21-32); Calcium, Blood 8.6 mg/dL (8.5-10.1); Chloride, Blood 102 mmol/L (98-108); Creatinine, Blood 4.56 mg/dL (0.40-1.00); Glomerular Filtration Rate 10 (60-); Glucose, Blood 219 mg/dL (70-99); Potassium, Blood 3.3 mmol/L (3.5-5.5); Sodium, Blood 136 mmol/L (136-145)
[2020-12-25 05:28] LABS: Phosphorus, Blood 8.1 mg/dL (2.5-4.9)
--- NOTE | 2020-12-25 07:50 | NUR ---
SHIFT SUMMARY PT TRANSFERRED FROM ICU. ALERT AND CALM AT BEDSIDE. ON TELE NSR AROUND 70'S-80'S. ON NC AT 3L AND PUT ON BIPAP 12/6 40%FIO2 FOR SLEEP APNEA; MAINTAINING O2 ABOVE 95%. EDEMA NOTED IN BLE. DENIED CHEST PAIN OR CHEST PRESSURE. DENIED ANY PAIN. DR. CASTANEDA NOTIFIED OF LABS, CRITICAL PHOS. AND HGB ORDERS RECEIVED. WILL GET 1 UNIT OF [facility] IN DIALYSIS. HAS GOOD PO INTAKE AND APPETITE. VSS. HOLLINGSWORTH IN PLACE DRAINING TO GRAVITY; CLEAR YELLOW URINE. NO ACUTE CHANGES. GAVE DAY SHIFT RN REPORT.
--- NOTE | 2020-12-25 11:02 | NUR ---
IV[facility] TRANSFER PT LEFT UNIT AT [facility] BED OCCOMPANIED WITH TWO STAFF MEMBERS FORM CARDIAC UNIT. RIGHT POWERGLIDE SALINE LOCKED. PT ON RA FOR TRANSFER.
--- NOTE | 2020-12-25 12:21 | NUR ---
ARRIVAL FROM [facility] PT ARRIVED FROM [facility] @ 1200. PT ALERT AND REPORTS NO PAIN. SITE C/D/I, NO REDNESS OR SWELLING NOTED. PT O2 SATS AT 88%, 6 L NC APPLIED. PT O2 SATS INCREASED TO MID 90'S.
--- NOTE | 2020-12-25 19:23 | NUR ---
SHIFT SUMMARY PT A/O X4 AND COOPERATIVE OF CARE. VSS T/O SHIFT WITH O2 SAT >92% ON 6L NC. PT RECIEVED PERMACAT, SITE C/D/I. PT HAS HOLLINGSWORTH DRAINING TO GRAVITY, YELLOW URIINE. NO REPORT OF CHEST PAIN/PRESSURE T/O SHIFT. CHRONIC BACK PAIN REPORTED, TREATED PER EMAR. NO REPORT OF SOB T/O SHIFT.
--- NOTE | 2020-12-25 21:35 | NUR ---
NOTIFIED DR. EASLEY HGB 6.9 AND ABOUT 1 PRBC'S THAT PT DID NOT RECEIVE THIS MORNING NOTIFIED DR. EASLEY. PER DR. EASLEY NOTIFY AM SHIFT ABOUT MORING LABS/HGB AND LET THEM DECIDE IF THEY WANT TO TRANSFUSE BLOOD W/ DIALYSIS. RECEIVED AN ORDER FOR PAIN MANAGEMENT.
[2020-12-26 04:35] LABS: Hematocrit 22.1 % (33.0-51.0)
[2020-12-26 04:57] LABS: Albumin, Blood 1.5 g/dL (3.4-5.0); Anion Gap 8 mmol/L (6-16); Blood Urea Nitrogen 44 mg/dL (8-24); Bun/Creatinine Ratio 13.3 (12.0-20.0); CO2, Blood 28 mmol/L (21-32); Calcium, Blood 8.3 mg/dL (8.5-10.1); Chloride, Blood 103 mmol/L (98-108); Glomerular Filtration Rate 15 (60-); Glucose, Blood 280 mg/dL (70-99); Magnesium, Blood 2.1 mg/dL (1.6-2.4); Phosphorus, Blood 5.7 mg/dL (2.5-4.9); Potassium, Blood 3.6 mmol/L (3.5-5.5); Sodium, Blood 139 mmol/L (136-145)
--- NOTE | 2020-12-26 06:43 | NUR ---
SHIFT SUMMARY PT A/OX4, CALM AND CALLS APPROPRIATELY AT BEDSIDE. ASK LOTS OF QUESTIONS ABOUT CARE. ON NC AT 4-5L MAINTAINING O2 ABOVE 92% AND WHEN SLEEPING DUE TO SLEEP APNEA PT ON BIPAP ON 35%FIO2 AND O2 ABOVE 94%. WAS ON TELE AT [facility] BUT WAS D/C. HAS A HOLLINGSWORTH IN PLACE; YELLOW CLEAR URINE WITH GOOD OUTPUT. BLE EDEMA NOTED. HAS NEW TUNNELED DIALYSIS CATH, HAD SORENESS AND PAIN. MD NOTIFIED AND GAVE VERBAL ORDERS FOR PAIN MED. PT STATED PAIN MED DID HELP. GAVE PT BEDBATH. HAS GREAT PO INTAKE. VSS. PT IS MED-SURG STATUS UNABLE TO TRANSFER TO OTHER FLOOR PER CHARGE NURSE, STATED MED-SURG FULL. NO ACUTE CHANGES. CONT. WITH PLAN OF CARE. GAVE REPORT TO DAY SHIFT RN.
[2020-12-26 08:10] LABS: HBSAG SCREEN Negative (Negative); HEP A AB, IGM Negative (Negative); HEP B CORE AB, IGM Negative (Negative); HEP C VIRUS AB <0.1 (0.0-0.9)
--- NOTE | 2020-12-26 10:38 | NUR ---
AM NOTE ASSUMED CARE OF PATIENT AT APPROX 0700. PT SITTING UP IN BED. ALERT AND ORIENTED. ANSWERING QUESTIONS APPROPRIATELY. PT REPROTS BACK PAIN AND RIGHT CHEST PERMA CATH ACHE; MEDICATED WITH SCHEDULED METHADONE. PT DENIES SOB, NASUEA, DIZZINESS AND NUMBNESS/TINGLING. SPO2 89-94% ON 4L O2 VIA NC. NO DIALYSIS TODAY PER BODY SANDER. PT REPROT ITCHING THAT STARTED AFTER DIALYSIS YESTERDAY, NOTIFIED DR MANLEY. NO BM SINCE ADMISSION, NOTIFIED DR MANLEY, NEW ORDERS ENTERED. ELEVATED BP NOTED. OTHER VSS. NO OTHER ACUTE CHANGES NOTED. WILL CONTINUE TO MONITOR.
--- NOTE | 2020-12-26 13:30 | NUR ---
TRANSFER NOTE NO BM SINCE ADMISSION NOTED, NOTIFIED DR MANLEY; NEW ORDERS FOR MIRALAX AND COLACE; MEDICATED PER EMAR. NO OTHER ACUTE CHANGES. REPORT GIVEN TO ASYA BERRY ASSUMING CARE OF PATIENT. PT TRANSFERED AR APPROX 1322, TRANSFERED TO ROOM 338.
--- NOTE | 2020-12-26 16:38 | NUR ---
ARRIVES FROM U AROUND 1330. HX ; D.M., COPD. ON FLUID RESTRICTION OF 1500ML. HAS PERMACATH RT C.W. AND HAD DIALYSIS YESTERDAY. NORMALLY ON 2-4 LPM OXYGEN AT HOME AND IS ON 4 LPM HERE WITH SATS 100%. IS IN ISO FOR LICE. HOLLINGSWORTH DRAINING YELLOW URINE. USES BIPAP AT NIGHT. P.T. WAS IN AND PATIENT TOO TIRED TODAY TO WORK WITH HIM BUT A SMALL WALKER WAS PLACED IN ROOM. HX DWARFISM. UNLABORED RESPIRATIONS. WCTM
[2020-12-27 05:32] LABS: Hematocrit 22.6 % (33.0-51.0); Hemoglobin 7.1 g/dL (11.5-16.0)
[2020-12-27 05:46] LABS: Albumin, Blood 1.5 g/dL (3.4-5.0); Anion Gap 7 mmol/L (6-16); Blood Urea Nitrogen 49 mg/dL (8-24); CO2, Blood 28 mmol/L (21-32); Calcium, Blood 8.6 mg/dL (8.5-10.1); Chloride, Blood 102 mmol/L (98-108); Glomerular Filtration Rate 14 (60-); Glucose, Blood 229 mg/dL (70-99); Magnesium, Blood 2.1 mg/dL (1.6-2.4); Phosphorus, Blood 5.8 mg/dL (2.5-4.9); Potassium, Blood 3.6 mmol/L (3.5-5.5); Sodium, Blood 137 mmol/L (136-145)
--- NOTE | 2020-12-27 15:47 | NUR ---
TALKED TO AND PER PATIENT ONLY MED FOR CONSTIPATION THAT WORKS IS METAMUCIL. OK TO ORDER DAILY.
--- NOTE | 2020-12-27 17:17 | NUR ---
ALERT. COOPERATIVE. HAD DIALYSIS TODAY. SLEEPING MOST OF DAY UPON RETURN. P.T. TO TRY AND GET DIFFERENT EQUIPMENT FOR TOMORROW STOOL NOT WORKING FOR PATIENT HEIGHT. IV RT UPPER ARM PATENT. WCTM
[2020-12-28 05:58] LABS: BASOPHILS ABSOLUTE AUTO 0.06 K/mm3 (0.00-0.23); BASOPHILS PERCENT AUTO 1 % (0-2); EOSINOPHILS ABSOLUTE AUTO 0.07 K/mm3 (0.00-0.68); EOSINOPHILS PERCENT AUTO 1 % (0-6); Hematocrit 23.4 % (33.0-51.0); Hemoglobin 7.2 g/dL (11.5-16.0); IMMATURE GRAN ABSOLUTE AUTO 0.14 K/mm3 (0.00-0.10); IMMATURE GRAN PERCENT AUTO 1 % (0-1); LYMPHOCYTES ABSOLUTE AUTO 1.33 K/mm3 (0.84-5.20); LYMPHOCYTES PERCENT AUTO 13 % (21-46); MONOCYTES ABSOLUTE AUTO 1.35 K/mm3 (0.16-1.47); MONOCYTES PERCENT AUTO 13 % (4-13); Mean Corpuscular HGB 29.9 pg (26.0-34.0); Mean Corpuscular HGB Conc 30.8 g/dL (31.5-36.5); Mean Corpuscular Volume 97 fL (80-100); Mean Platelet Volume 10.2 fL (9.1-12.4); NEUTROPHILS ABSOLUTE AUTO 7.51 K/mm3 (1.96-9.15); NEUTROPHILS PERCENT AUTO 72 % (41-73); Platelet Count 326 K/mm3 (150-400); RDW Coefficient Variation 15.1 % (11.7-14.2); RDW Standard Deviation 52.2 fL (35.1-46.3); Red Blood Cell Count 2.41 M/mm3 (3.80-5.20); White Blood Cell Count 10.46 K/mm3 (4.00-11.30)
[2020-12-28 06:22] LABS: Albumin, Blood 1.5 g/dL (3.4-5.0); Anion Gap 5 mmol/L (6-16); Blood Urea Nitrogen 32 mg/dL (8-24); Bun/Creatinine Ratio 11.6 (12.0-20.0); CO2, Blood 32 mmol/L (21-32); Calcium, Blood 8.5 mg/dL (8.5-10.1); Chloride, Blood 104 mmol/L (98-108); Creatinine, Blood 2.77 mg/dL (0.40-1.00); Glomerular Filtration Rate 18 (60-); Glucose, Blood 188 mg/dL (70-99); Magnesium, Blood 2.1 mg/dL (1.6-2.4); Phosphorus, Blood 4.5 mg/dL (2.5-4.9); Potassium, Blood 3.8 mmol/L (3.5-5.5); Sodium, Blood 141 mmol/L (136-145)
--- NOTE | 2020-12-28 18:34 | NUR ---
PT ALERT ORIENTED X 4,PT DENIES PAIN,N/V,SOB.UPPER LUNGS CLEAR BUT DIMINISHED BILATERAL LOWER,PT ON 4L NC SATS IN HIGH 90S.PT HAVE HOLLINGSWORTH IN PLACE DRAINING TO GRAVITY NORNAL COLOR.PT SKIN IS SALEY IN DRY T/O.PT HAVE BRUISES TO UPPER BILATEAL EXTREMITIES AND LOWER ABDOMEN.PT IS C/O OF ITCHING T/O HER BODY MD NOTIFIE.PT IN BED,BED LOCKED,CALL LIGHT IN REACH WILL CONTINUE TO MONITOR.
--- NOTE | 2020-12-29 04:39 | NUR ---
SHIFT SUMMARY PATIENT HAD NO ACUTE CHANGES OBSERVED. AXOX 3 BEDREST. CBG 111. POWERGLIDE TO KRZYSZTOF INTACT. FLUID RESTRICTION 1,500 mL. VSS/AFEBRILE. DENIES PAIN, SOB, AND N/V. HOLLINGSWORTH PATENT AND DRAINING TO GRAVITY. DIALYSIS PORT LEFT CHEST. ON 4L O2 NC. CALL LIGHT IN REACH. BED IN LOWEST POSITION. WILL CONTINUE TO MONITOR UNTIL DAY SHIFT NURSE ASSUMES CARE.
[2020-12-29 05:48] LABS: Hemoglobin 7.1 g/dL (11.5-16.0)
[2020-12-29 06:18] LABS: Albumin, Blood 1.7 g/dL (3.4-5.0); Anion Gap 6 mmol/L (6-16); Blood Urea Nitrogen 40 mg/dL (8-24); Bun/Creatinine Ratio 12.5 (12.0-20.0); CO2, Blood 30 mmol/L (21-32); Chloride, Blood 102 mmol/L (98-108); Creatinine, Blood 3.19 mg/dL (0.40-1.00); Glomerular Filtration Rate 16 (60-); Glucose, Blood 92 mg/dL (70-99); Magnesium, Blood 2.2 mg/dL (1.6-2.4); Phosphorus, Blood 5.6 mg/dL (2.5-4.9); Sodium, Blood 138 mmol/L (136-145)
[2020-12-29 11:36] LABS: Percent Saturation 23.6 % (15.0-50.0)
--- NOTE | 2020-12-29 19:05 | NUR ---
PT AO X 4,PT HAD DIALYSIS TODAY,PT HAS NO ACUTE EVENTS T/O SHIFT.PT ASSESSMENT UNCHANGED.PT IN BED,BED IN LOW POSITION CALL LIGHT IN REACH WILL CONTINUE TO MONITOR.
--- NOTE | 2020-12-30 03:34 | NUR ---
SHIFT SUMMARY PATIENT HAD NO ACUTE CHANGES OBSERVED. AXOX 3 AND BEDREST. CBG 205. HOLLINGSWORTH PATENT AND DRAINING TO GRAVITY. FLUID RESTRICTIONS 1,500 mL. ON 2L O2 NC. VSS/AFEBRILE. DENIES PAIN, SOB, AND N/V. DIALYSIS PORT LEFT CHEST. CALL LIGHT IN REACH. BED IN LOWEST POSITION. WILL CONTINUE TO MONITOR UNTIL DAY SHIFT NURSE ASSUMES CARE.
[2020-12-30 05:37] LABS: BASOPHILS ABSOLUTE AUTO 0.03 K/mm3 (0.00-0.23); BASOPHILS PERCENT AUTO 0 % (0-2); EOSINOPHILS ABSOLUTE AUTO 0.08 K/mm3 (0.00-0.68); EOSINOPHILS PERCENT AUTO 1 % (0-6); Hematocrit 24.1 % (33.0-51.0); Hemoglobin 7.6 g/dL (11.5-16.0); IMMATURE GRAN ABSOLUTE AUTO 0.12 K/mm3 (0.00-0.10); IMMATURE GRAN PERCENT AUTO 1 % (0-1); LYMPHOCYTES ABSOLUTE AUTO 0.98 K/mm3 (0.84-5.20); LYMPHOCYTES PERCENT AUTO 9 % (21-46); MONOCYTES ABSOLUTE AUTO 1.37 K/mm3 (0.16-1.47); MONOCYTES PERCENT AUTO 12 % (4-13); Mean Corpuscular HGB 30.2 pg (26.0-34.0); Mean Corpuscular HGB Conc 31.5 g/dL (31.5-36.5); Mean Corpuscular Volume 96 fL (80-100); Mean Platelet Volume 10.1 fL (9.1-12.4); NEUTROPHILS ABSOLUTE AUTO 8.79 K/mm3 (1.96-9.15); NEUTROPHILS PERCENT AUTO 77 % (41-73); Platelet Count 341 K/mm3 (150-400); RDW Coefficient Variation 15.8 % (11.7-14.2); RDW Standard Deviation 54.4 fL (35.1-46.3); Red Blood Cell Count 2.52 M/mm3 (3.80-5.20); White Blood Cell Count 11.37 K/mm3 (4.00-11.30)
[2020-12-30 06:05] LABS: Albumin, Blood 1.7 g/dL (3.4-5.0); Anion Gap 5 mmol/L (6-16); Blood Urea Nitrogen 33 mg/dL (8-24); Bun/Creatinine Ratio 12.5 (12.0-20.0); CO2, Blood 30 mmol/L (21-32); Calcium, Blood 8.7 mg/dL (8.5-10.1); Chloride, Blood 101 mmol/L (98-108); Creatinine, Blood 2.65 mg/dL (0.40-1.00); Glomerular Filtration Rate 19 (60-); Glucose, Blood 228 mg/dL (70-99); Magnesium, Blood 2.2 mg/dL (1.6-2.4); Phosphorus, Blood 4.8 mg/dL (2.5-4.9); Potassium, Blood 3.7 mmol/L (3.5-5.5); Sodium, Blood 136 mmol/L (136-145)
--- NOTE | 2020-12-30 18:54 | NUR ---
PT ALERT ORIENTED X 4.PT ASSESSMENT REMAINS UNCHANGED.PT HOLLINGSWORTH DRAINAGE TO GRAVITY.PT HAS NO ACUTES EVENTS T/O.PT ON 2L NC SATS IN HIGH 90S.PT IN BED.BED IN LOW POSITION,CALL LIGHT REACH WILL CONTINUE TO MONIOR.
--- NOTE | 2020-12-31 03:46 | NUR ---
SHIFT SUMMARY PATIENT HAD NO ACUTE CHANGES OBSERVED. AXOX 3 AND BEDREST. CBG 126. ON 2L O2 NC AND USES BIPAP NOC. FLUID RESTRICTIONS 1,500 mL. POWERGLIDE KRZYSZTOF INTACT. REPORTED BACK/CHEST PAIN X ONE AND ULTRAM 50 MG GIVEN PER EMAR. DENIES SOB AND N/V. VSS/AFEBRILE. DIALYSIS PORT LEFT CHEST. HOLLINGSWORTH PATENT AND DRAINING. CALL LIGHT IN REACH. BED IN LOWEST POSITION. WILL CONTINUE TO MONITOR UNTIL DAY SHIFT NURSE ASSUMES CARE.
[2020-12-31 04:43] LABS: Hematocrit 24.4 % (33.0-51.0); Hemoglobin 7.6 g/dL (11.5-16.0)
[2020-12-31 05:07] LABS: Albumin, Blood 1.7 g/dL (3.4-5.0); Anion Gap 9 mmol/L (6-16); Blood Urea Nitrogen 43 mg/dL (8-24); Bun/Creatinine Ratio 13.9 (12.0-20.0); CO2, Blood 26 mmol/L (21-32); Calcium, Blood 8.8 mg/dL (8.5-10.1); Chloride, Blood 99 mmol/L (98-108); Creatinine, Blood 3.09 mg/dL (0.40-1.00); Glomerular Filtration Rate 16 (60-); Glucose, Blood 354 mg/dL (70-99); Magnesium, Blood 2.5 mg/dL (1.6-2.4); Phosphorus, Blood 5.6 mg/dL (2.5-4.9); Potassium, Blood 4.3 mmol/L (3.5-5.5); Sodium, Blood 134 mmol/L (136-145)
--- NOTE | 2020-12-31 18:53 | NUR ---
PT ALERT ORIENTED X 4.PT ASSESSMENT REMAINS UNCHANDED.PT HAS NO ACUTE EVENTS T/O,PT STILL ON 2L NC SATS IN 90S.PT HAD DIALYSIS THIS AM.PT HOLLINGSWORTH INTACT DRAINAGE TO GRAVITY.PT IN BED,BED IN LOW POSITON,CALL LIGHT IN REACH WILL CONTINUE TO MONITOR.
[2021-01-01 05:11] LABS: Hematocrit 24.2 % (33.0-51.0); Hemoglobin 7.6 g/dL (11.5-16.0)
--- NOTE | 2021-01-01 05:26 | NUR ---
SHIFT SUMMARY PT IS A&OX4. ABLE TO MAKE NEEDS KNOWN. NO ACUTE CHANGES ON THIS SHIFT. PT C/O PAIN ON BACK AND LEGS. PRN PAIN MED ADMINISTERED PER EMAR. PT TOLERATED WELL. ADLS PROVIDED. SAFETY MEASURES IN PLACE. WILL CONTINUE TO MONITOR.
[2021-01-01 05:37] LABS: Albumin, Blood 1.7 g/dL (3.4-5.0); Anion Gap 8 mmol/L (6-16); Blood Urea Nitrogen 32 mg/dL (8-24); Bun/Creatinine Ratio 11.6 (12.0-20.0); CO2, Blood 29 mmol/L (21-32); Calcium, Blood 8.7 mg/dL (8.5-10.1); Chloride, Blood 102 mmol/L (98-108); Creatinine, Blood 2.76 mg/dL (0.40-1.00); Glomerular Filtration Rate 19 (60-); Glucose, Blood 94 mg/dL (70-99); Magnesium, Blood 2.2 mg/dL (1.6-2.4); Phosphorus, Blood 4.8 mg/dL (2.5-4.9); Potassium, Blood 3.7 mmol/L (3.5-5.5); Sodium, Blood 139 mmol/L (136-145)
--- NOTE | 2021-01-01 19:16 | NUR ---
PT ALERT ORIENTED X 4,PT IS VERY PLEASANT.PT WORKED WITH PT AND OT DID VERY WELL.PT HOLLINGSWORTH PULLLED OUT THIS AM,PT VOID ONE TIME AFTER FOLYE PULLED OUT.PT ASSESSMENT REMAINS UNCHANGED,PT ON 1LNC SATS IN THE 90S.PT IN BED CALL LIGHT IN REACH WILL CONTINUE TO MONITOR.
--- NOTE | 2021-01-02 04:36 | NUR ---
MAIL FORWARDING SYSTEM MARKUP CLERK SUMMARY ADMITTED FOR ARF. PT IS FULL CODE. DISCUSSED WITH PT THE NEED TO GET UP TO THE COMMODE INSTEAD OF ALWAYS REQUESTING A BEDPAN. PT ATTEMPTED TO GET UP BUT HAD TWO ACCIDENTS. PT CONCERNED ABOUT THE HEPARIN SHOTS THREE TIMES A DAY. NO OTHER CONCERNS THIS SHIFT.
[2021-01-02 05:48] LABS: Hematocrit 25.6 % (33.0-51.0)
[2021-01-02 06:02] LABS: Albumin, Blood 1.8 g/dL (3.4-5.0); Anion Gap 8 mmol/L (6-16); Blood Urea Nitrogen 40 mg/dL (8-24); Bun/Creatinine Ratio 11.7 (12.0-20.0); CO2, Blood 29 mmol/L (21-32); Calcium, Blood 8.9 mg/dL (8.5-10.1); Chloride, Blood 99 mmol/L (98-108); Creatinine, Blood 3.42 mg/dL (0.40-1.00); Glomerular Filtration Rate 14 (60-); Glucose, Blood 221 mg/dL (70-99); Magnesium, Blood 2.4 mg/dL (1.6-2.4); Phosphorus, Blood 5.4 mg/dL (2.5-4.9); Sodium, Blood 136 mmol/L (136-145)
--- NOTE | 2021-01-02 17:40 | NUR ---
SHIFT SUMMARY: WAS HYPOXIC AT BEGINNING OF SHIFT, ALTHOUGH IT IS DIFFICULT TO GET ACCURATE SPO2 READING PT HAS GEL NAILS. PLACED ADHESIVE PROBE ON R SECOND TOE, STILL SHOWED SAT 82-85%. PT A&O X 3, ENDORSED SHORTNESS OF BREATH. HAD BEEN ON O2 @ 1 L/MIN NC, BUT INCREASED TO 2 L/MIN AND THEN 4 L/MIN NC TO GET O2 SAT TO 91%. GAVE TELEPHONE REPORT TO BIZTALK ADMINISTRATOR ABOUT THIS. AFTER HD, PT STATED THAT BREATHING WAS MUCH EASIER AND O2 DECREASED TO 2 L/MIN NC. HAS CHRONIC PAIN, TAKES METHADONE. COVID VACCINE ADMINISTERED; NO ADVERSE REACTION NOTED AT THIS TIME. USING BSC WITH ASSIST.
--- NOTE | 2021-01-03 05:58 | NUR ---
SHIFT SUMMARY PATIENT ALERT AND ORIENTED. MEDICATED PER EMAR FOR PAIN. NO COMPLAINTS OF SHORTNESS OF BREATH. NO ACUTE ISSUES NOTED OVERNIGHT. CALL LIGHT WITHIN REACH. REPORT GIVEN TO ONCOMING RN.
--- NOTE | 2021-01-03 08:00 | NUR ---
pt laying in bed eating breakfast, a/ox3, pleasant and cooperative with care, follows commands well, states her back hurts, rates about 8-9/10, repositioned her in bed, lungs are clear t/o, resp even and unlabored, no cough noted, hrr, edema noted to right ankle which she states is chronic, cap refill<3sec, vs stable, afebrile, power glide to debra, site is clear and patent, btx4 hypoactive, abd nontender, does get up to bsc with assist, skin c/w/d, joselyn, jabari, call light in reach.
--- NOTE | 2021-01-03 19:08 | NUR ---
pt glucose dropped to 52 this afternoon, responded well to juice and peanutbutter and crackers, held this evenings insuline, she came up to 91 at recheck, did notify Dr. Rizo, he said he would adjust her insulin, passed on the night RN of events, no further acute changes this shift. call light in reach.
--- NOTE | 2021-01-03 21:56 | NUR ---
PHYSICIAN COMMUNICATION CONTACTED ACADEMIC REGISTRAR PHYSICIAN, DR TERRY, TO NOTIFY HIM THAT THE PATIENT'S BLOOD SUGAR WAS 102 AND THAT SHE WAS HAVING ISSUES WITH HYPOGLYCEMIA TODAY AND TO ASK IF THIS NURSE COULD HOLD PATIENT'S [address] TERRY SAID TO HOLD SEMGLEE.
[2021-01-04 06:10] LABS: Hematocrit 26.7 % (33.0-51.0); Hemoglobin 8.4 g/dL (11.5-16.0)
[2021-01-04 06:29] LABS: Albumin, Blood 1.8 g/dL (3.4-5.0); Anion Gap 7 mmol/L (6-16); Blood Urea Nitrogen 37 mg/dL (8-24); Bun/Creatinine Ratio 10.6 (12.0-20.0); CO2, Blood 29 mmol/L (21-32); Calcium, Blood 8.7 mg/dL (8.5-10.1); Chloride, Blood 101 mmol/L (98-108); Creatinine, Blood 3.48 mg/dL (0.40-1.00); Glomerular Filtration Rate 14 (60-); Glucose, Blood 170 mg/dL (70-99); Magnesium, Blood 2.3 mg/dL (1.6-2.4); Potassium, Blood 4.1 mmol/L (3.5-5.5); Sodium, Blood 137 mmol/L (136-145)
--- NOTE | 2021-01-04 06:41 | NUR ---
SHIFT SUMMARY PATIENT ALERT AND ORIENTED. MEDICATED PER EMAR FOR PAIN. 0900 BLOOD PRESSURE MEDICATIONS GIVEN EARLY DUE TO PATIENT HAVING SYSTOLIC BP OF 177. PATIENT REPORTS FEELING TIGHTNESS IN HER CHEST RATING HER DISCOMFORT AT 7-8/10. CALL LIGHT WITHIN REACH. REPORT GIVEN TO ONCOMING RN.
--- NOTE | 2021-01-04 15:47 | NUR ---
THE PATIENT ADVOCATE ASKED THAT THE PATIENT'S HEAD BE INSPECTED FOR LICE. MANY LICE EGGS WERE FOUND ALONG WITH ONE ADULT LICE IN THE PATIENT'S HAIR. THE PATIENT AND HER S/O WERE SHOWN THE ADULT LICE AND THEY SHARED THEIR UNDERSTANDING OF THE PATIENT REMAINING IN ISOLATION AT THIS TIME. THE CASHIER AND WAITER/WAITRESS AND THE PATIENT'S PRIMARY RN WERE INFORMED.
--- NOTE | 2021-01-04 18:25 | NUR ---
Alert and oriented x3 ,able to make needs known . Continue on dialysis , no post-dialyis issue noted. Vital signs are stable. Head lice found and permethrin was ordered that was applied. Denies any headache, SOB , Dizziness and chest pain. Insulin coverage was done , no adverse effects noted. Call light within reach. Continue to monitor.
[2021-01-05 05:14] LABS: Hematocrit 27.6 % (33.0-51.0); Hemoglobin 8.8 g/dL (11.5-16.0)
[2021-01-05 05:44] LABS: Albumin, Blood 1.8 g/dL (3.4-5.0); Anion Gap 8 mmol/L (6-16); Blood Urea Nitrogen 34 mg/dL (8-24); Bun/Creatinine Ratio 11.4 (12.0-20.0); CO2, Blood 29 mmol/L (21-32); Calcium, Blood 8.5 mg/dL (8.5-10.1); Chloride, Blood 101 mmol/L (98-108); Creatinine, Blood 2.99 mg/dL (0.40-1.00); Glomerular Filtration Rate 17 (60-); Glucose, Blood 244 mg/dL (70-99); Magnesium, Blood 1.9 mg/dL (1.6-2.4); Potassium, Blood 3.9 mmol/L (3.5-5.5); Sodium, Blood 138 mmol/L (136-145)
--- NOTE | 2021-01-05 07:33 | NUR ---
PATIENT ALERT AND RESPONSIVE. PATIENT C/O MID CHEST PAIN. PATIENT WAS GIVEN ULTRAM 50MG. PATIENT CALLED AND REPORTED SHE WOULD LIKE TO HAVE MORE ULTRAM BECAUSE AT HOME SHE TAKES 100MG. MD WAS CALLED AND GOT AN ORDER FOR ULTRAM 50 TO 100 MG PRN DAILY PO FOR PAIN. PATIENT WAS GIVEN AN ADDITIONAL ULTRAM 50 MG FOR PAIN. PATIENT DID NOT COMPLAIN OF ANY FURTHER PAIN. PATIENT CON'T ON HS BLOOD SUGAR OF 112, NO COVERAGE WAS NEEDED. PATIENT CON'T ON FLUID RESTRICTION AT 1500 ML. WILL CONTINUE TO MONIOTR.
[2021-01-05 13:11] LABS: Magnesium, Blood 1.9 mg/dL (1.6-2.4); Troponin I <0.015 ng/mL (0.000-0.040)
--- NOTE | 2021-01-05 18:31 | NUR ---
Alert and oriented x3 , able to make needs known. c/o chest pain, EKG was done and was negative. Blood pressure was elevated to 168/85 , hydralazine 10 mg was given and BP trended down to 151/73, Denies any headache , dizziness and SOB. insulin coverage was given for blood glucose , no adverse effects noted. one person assist with ADLs. Call light within reach. Continue to monitor.
--- NOTE | 2021-01-06 04:58 | NUR ---
PATIENT IS ALERT AND OREITNTED X3. PATIENT DENIES PAIN, SOB, N/V, CHEST PAIN OR ANY DISTRESS. PATIENT WAS ASSITED TO THE BSC X2, WITH SMALL BM. PATIENT SLEPT ALL NIGHT NO ACUTE DISTRESS. WILL CONTINUE TO MONITOR.
[2021-01-06 05:08] LABS: BASOPHILS ABSOLUTE AUTO 0.05 K/mm3 (0.00-0.23); BASOPHILS PERCENT AUTO 1 % (0-2); EOSINOPHILS PERCENT AUTO 4 % (0-6); Hematocrit 29.5 % (33.0-51.0); Hemoglobin 9.3 g/dL (11.5-16.0); IMMATURE GRAN ABSOLUTE AUTO 0.03 K/mm3 (0.00-0.10); IMMATURE GRAN PERCENT AUTO 0 % (0-1); LYMPHOCYTES PERCENT AUTO 13 % (21-46); MONOCYTES PERCENT AUTO 17 % (4-13); Mean Corpuscular HGB 30.2 pg (26.0-34.0); Mean Corpuscular HGB Conc 31.5 g/dL (31.5-36.5); Mean Corpuscular Volume 96 fL (80-100); Mean Platelet Volume 10.5 fL (9.1-12.4); NEUTROPHILS ABSOLUTE AUTO 4.89 K/mm3 (1.96-9.15); NEUTROPHILS PERCENT AUTO 65 % (41-73); Platelet Count 369 K/mm3 (150-400); RDW Coefficient Variation 15.5 % (11.7-14.2); RDW Standard Deviation 54.4 fL (35.1-46.3); Red Blood Cell Count 3.08 M/mm3 (3.80-5.20); White Blood Cell Count 7.57 K/mm3 (4.00-11.30)
[2021-01-06 05:35] LABS: Albumin, Blood 1.7 g/dL (3.4-5.0); Anion Gap 7 mmol/L (6-16); Blood Urea Nitrogen 40 mg/dL (8-24); Bun/Creatinine Ratio 11.9 (12.0-20.0); CO2, Blood 27 mmol/L (21-32); Calcium, Blood 8.8 mg/dL (8.5-10.1); Chloride, Blood 102 mmol/L (98-108); Creatinine, Blood 3.37 mg/dL (0.40-1.00); Glomerular Filtration Rate 15 (60-); Glucose, Blood 81 mg/dL (70-99); Magnesium, Blood 2.1 mg/dL (1.6-2.4); Phosphorus, Blood 5.2 mg/dL (2.5-4.9); Potassium, Blood 3.7 mmol/L (3.5-5.5); Sodium, Blood 136 mmol/L (136-145)
--- NOTE | 2021-01-06 18:56 | NUR ---
Alert and oriented x 3 ,able to make needs known. Denies any chest pain, dizziness and SOB. Continue on 2 L n/c , sp02 at 96% and greater.One person assist with ADLs. Two persons assist with transfer and bed mobility. Went for dialysis and no post-dialysis issue noted. Vital signs are stable. Had an episode of hypoglycemia CBG 58, 50% Destrose was ordered and given , CBG rechecked and was elevated to 145 . NO changes in LOC. Call light within reach. Continue to monitor.
[2021-01-07 05:29] LABS: Hematocrit 28.4 % (33.0-51.0); Hemoglobin 8.7 g/dL (11.5-16.0)
[2021-01-07 06:13] LABS: Albumin, Blood 1.8 g/dL (3.4-5.0); Anion Gap 6 mmol/L (6-16); Blood Urea Nitrogen 31 mg/dL (8-24); Bun/Creatinine Ratio 11.1 (12.0-20.0); CO2, Blood 28 mmol/L (21-32); Calcium, Blood 8.6 mg/dL (8.5-10.1); Chloride, Blood 107 mmol/L (98-108); Creatinine, Blood 2.79 mg/dL (0.40-1.00); Glomerular Filtration Rate 18 (60-); Glucose, Blood 265 mg/dL (70-99); Magnesium, Blood 2.2 mg/dL (1.6-2.4); Phosphorus, Blood 4.6 mg/dL (2.5-4.9); Potassium, Blood 4.3 mmol/L (3.5-5.5); Sodium, Blood 141 mmol/L (136-145)
--- NOTE | 2021-01-07 06:34 | NUR ---
PATIENT ALERT AND ORIENTED X4. PATIENT CONTINUES ON FLUID RESTRICTION.. PATIENT BLOOD SUGAR WAS 51 AND PATIENT WAS GIVEN SOME OJ AND CRACKERS WITH PEANUT BUTTER. RECHECKED BLOOD SUGAR WAS 108. PATIENT C/O BACK PAIN AND WAS GIVEN ULTRAM FOR PAIN WITH GOOD EFFECT. PATIENT BLOOD PRESSURE NOTED TO BE ELEVATED AND PATIENT WAS GIVEN HYDRALIZINE 10 MG. WILL CONTINUE TO MONITOR.
--- NOTE | 2021-01-07 19:41 | NUR ---
Alert and oriented x3 , c/o chest pain in the morning and requested methadone 70 mg po , pain resolved after taking 70 mg dose. vital signs are stable . Insulin coverage was done, no adverse effects noted. Continue on 2 L n/c , No SOB noted. Call light within reach . Continue to monitor.
--- NOTE | 2021-01-08 03:56 | NUR ---
PT RESTING IN BED AAO. B/P 173/81. REPEAT B/P 147/82. PT C/O OF PAIN. MEDICATED X1 WITH GOOD RELIEF. ASSISTED WITH NEEDS. VSS. O2 4L NC IN PLACE. NO RESP DISTRESS. CALL LIGHT WITHIN REACH. WILL CONTINUE TO MONITOR.
[2021-01-08 06:01] LABS: BASOPHILS ABSOLUTE AUTO 0.06 K/mm3 (0.00-0.23); BASOPHILS PERCENT AUTO 1 % (0-2); EOSINOPHILS ABSOLUTE AUTO 0.04 K/mm3 (0.00-0.68); EOSINOPHILS PERCENT AUTO 1 % (0-6); Hemoglobin 9.2 g/dL (11.5-16.0); IMMATURE GRAN ABSOLUTE AUTO 0.04 K/mm3 (0.00-0.10); IMMATURE GRAN PERCENT AUTO 1 % (0-1); LYMPHOCYTES ABSOLUTE AUTO 0.97 K/mm3 (0.84-5.20); LYMPHOCYTES PERCENT AUTO 12 % (21-46); MONOCYTES ABSOLUTE AUTO 1.22 K/mm3 (0.16-1.47); MONOCYTES PERCENT AUTO 15 % (4-13); Mean Corpuscular HGB 30.2 pg (26.0-34.0); Mean Corpuscular HGB Conc 30.7 g/dL (31.5-36.5); Mean Corpuscular Volume 98 fL (80-100); Mean Platelet Volume 10.6 fL (9.1-12.4); NEUTROPHILS ABSOLUTE AUTO 5.94 K/mm3 (1.96-9.15); NEUTROPHILS PERCENT AUTO 72 % (41-73); Platelet Count 344 K/mm3 (150-400); RDW Coefficient Variation 15.2 % (11.7-14.2); RDW Standard Deviation 55.3 fL (35.1-46.3); Red Blood Cell Count 3.05 M/mm3 (3.80-5.20); White Blood Cell Count 8.27 K/mm3 (4.00-11.30)
[2021-01-08 06:17] LABS: Anion Gap 5 mmol/L (6-16); Blood Urea Nitrogen 40 mg/dL (8-24); Bun/Creatinine Ratio 10.9 (12.0-20.0); CO2, Blood 30 mmol/L (21-32); Calcium, Blood 9.1 mg/dL (8.5-10.1); Chloride, Blood 100 mmol/L (98-108); Creatinine, Blood 3.67 mg/dL (0.40-1.00); Glomerular Filtration Rate 13 (60-); Glucose, Blood 201 mg/dL (70-99); Magnesium, Blood 2.1 mg/dL (1.6-2.4); Phosphorus, Blood 5.6 mg/dL (2.5-4.9); Potassium, Blood 4.5 mmol/L (3.5-5.5); Sodium, Blood 135 mmol/L (136-145)
--- NOTE | 2021-01-08 17:55 | NUR ---
SHIFT SUMMARY: NO ACUTE EVENTS. DENIED ADDITIONAL PAIN OTHER THAN CHRONIC. TOLERATED HD FINE. NO BLOOD RETURN FROM KRZYSZTOF POWERGLIDE, FLUSHES WELL. O2 @ 2 L/MIN NC, LUNGS DIM THROUGHOUT. HELD INSULIN FOR LUNCH AND DINNER BG AT THOSE TIMES WERE 86 AND 107 RESPECTIVELY. WORKED WITH PT/OT TODAY, AMBULATED IN ROOM.
--- NOTE | 2021-01-08 22:40 | NUR ---
PT C/O OF ANXIETY. SHE STATES THAT SHE HAD VALIUM ONCE IN ER WITH GOOD RELIEF. CHECKED PT'S HOME MEDS. NO HX OF VALIUM. DR. BERMUDEZ WAS CALLED AND MADE AWARE. HE ORDERED TRAZODONE X1. PT REFUSED STATING SHE HAS HX OF SLEEP APNEA AND DOES NOT WANT TO FALL ASLEEP. ENCOURAGE DEEP BREATHING AND RELAXATION EXERCISES. SHE STATES SHE WILL WAIT FOR HER ULTRAM AM DOSE. NO CHANGE IN CONDITION NOTED.
--- NOTE | 2021-01-09 04:02 | NUR ---
PT RESTING IN BED WITHOUT DISTRESS. VSS. MEDS GIVEN. RESP UNLABORED. CALL LIGHT WITHIN REACH. ATTEND IN PLACE. SAFETY AND COMFORT MEASURES MAINTAINED.
[2021-01-09 06:05] LABS: Hematocrit 29.3 % (33.0-51.0); Hemoglobin 9.1 g/dL (11.5-16.0)
[2021-01-09 06:23] LABS: Albumin, Blood 2.1 g/dL (3.4-5.0); Anion Gap 4 mmol/L (6-16); Blood Urea Nitrogen 36 mg/dL (8-24); Bun/Creatinine Ratio 10.5 (12.0-20.0); CO2, Blood 31 mmol/L (21-32); Calcium, Blood 9.1 mg/dL (8.5-10.1); Chloride, Blood 100 mmol/L (98-108); Creatinine, Blood 3.42 mg/dL (0.40-1.00); Glomerular Filtration Rate 14 (60-); Glucose, Blood 88 mg/dL (70-99); Magnesium, Blood 1.9 mg/dL (1.6-2.4); Phosphorus, Blood 5.3 mg/dL (2.5-4.9); Potassium, Blood 4.1 mmol/L (3.5-5.5); Sodium, Blood 135 mmol/L (136-145)
--- NOTE | 2021-01-09 19:22 | NUR ---
SHIFT SUMMARY: NO ACUTE EVENTS. DID NOT HAVE HD TODAY. DENIED PAIN. PER O/N REPORT, PT WAS HAVING ANXIETY; REPORTED THIS TO DR. SNYDER AND RECEIVED ORDER FOR ATARAX. USING BSC WITH ASSISTANCE. O2 @ 2 L/MIN NC, DENIED SOB. IS AWAITING OUTPT DIALYSIS PLACEMENT.
--- NOTE | 2021-01-10 04:35 | NUR ---
PT SLEPT WELL. ATARAX GIVEN X1 FOR ANXIETY WITH GOOD EFFECT. MEDICATED PER MAY. O2 2L NC IN PLACE. NO RESP DISTRESS. VOIDED TWICE AND HAD 2 BM LAST NIGHT. CALL LIGHT WITHIN REACH. NO CHANGES IN STATUS NOTED.
[2021-01-10 06:41] LABS: Hematocrit 26.9 % (33.0-51.0); Hemoglobin 8.6 g/dL (11.5-16.0)
[2021-01-10 06:58] LABS: Albumin, Blood 1.9 g/dL (3.4-5.0); Anion Gap 6 mmol/L (6-16); Blood Urea Nitrogen 47 mg/dL (8-24); Bun/Creatinine Ratio 11.8 (12.0-20.0); CO2, Blood 28 mmol/L (21-32); Calcium, Blood 8.7 mg/dL (8.5-10.1); Chloride, Blood 102 mmol/L (98-108); Creatinine, Blood 3.99 mg/dL (0.40-1.00); Glomerular Filtration Rate 12 (60-); Glucose, Blood 157 mg/dL (70-99); Magnesium, Blood 1.9 mg/dL (1.6-2.4); Phosphorus, Blood 5.9 mg/dL (2.5-4.9); Potassium, Blood 4.2 mmol/L (3.5-5.5); Sodium, Blood 136 mmol/L (136-145)
--- NOTE | 2021-01-10 17:29 | NUR ---
SHIFT SUMMARY NO ACUTE CHANGES. PT HAS BEEN RESTING MOST OF THE DAY. SOME ANXIETY, MEDICATED PER MAR. SHE TOLERATED DIALYSIS WELL. STILL WAITING ON A NEW DIALYSIS SCHEDULE TO DISCHARGE. WILL CONTINUE TO MONITOR.
[2021-01-11 06:09] LABS: Hematocrit 32.5 % (33.0-51.0)
[2021-01-11 06:10] LABS: Albumin, Blood 1.9 g/dL (3.4-5.0); Anion Gap 10 mmol/L (6-16); Blood Urea Nitrogen 38 mg/dL (8-24); Bun/Creatinine Ratio 10.1 (12.0-20.0); CO2, Blood 24 mmol/L (21-32); Calcium, Blood 8.6 mg/dL (8.5-10.1); Chloride, Blood 102 mmol/L (98-108); Creatinine, Blood 3.78 mg/dL (0.40-1.00); Glomerular Filtration Rate 13 (60-); Glucose, Blood 356 mg/dL (70-99); Phosphorus, Blood 5.7 mg/dL (2.5-4.9); Potassium, Blood 4.7 mmol/L (3.5-5.5); Sodium, Blood 136 mmol/L (136-145)
--- NOTE | 2021-01-11 06:47 | NUR ---
SHIFT SUMMARY PT IS A 45 Y/O FEMALE, ADMITTED FOR ACUTE RESPIRATORY FAILURE WITH HYPOXIA. SHE IS A&O X 4, 1-2PA TO THE BSC. PT IS ON 2L O2 VIA NC AT [facility]. VITAL SIGNS STABLE. NO C/O ACUTE PAIN, NAUSEA OR SOB. NO ACUTE CHANGES IN PT CONDITION NOTED DURING THE NIGHT. WILL CONTINUE TO MONITOR AND TREAT PER EMAR UNTIL HAND OFF TO DAY SHIFT RN.
--- NOTE | 2021-01-11 18:24 | NUR ---
SHIFT SUMMARY PT IS UP IN CHAIR ON ROOM AIR WITH DAUGHTER VISITING. HAD A HIGH BP THIS AFTERNOON OF 177/95. MEDICATED PER MAY AND HEADACHE WENT AWAY AND BP LOWERED. PT WAS MEDICATED TWICE FOR ANXIETY. DENIES PAIN OR SOB. STILL WAITING FOR [facility] PLACEMENT. WILL CONTINUE TO MONITOR.
[2021-01-12 05:07] LABS: Hematocrit 26.6 % (33.0-51.0); Hemoglobin 8.5 g/dL (11.5-16.0)
[2021-01-12 05:30] LABS: Albumin, Blood 1.9 g/dL (3.4-5.0); Anion Gap 7 mmol/L (6-16); Blood Urea Nitrogen 55 mg/dL (8-24); Bun/Creatinine Ratio 13.2 (12.0-20.0); CO2, Blood 26 mmol/L (21-32); Calcium, Blood 8.9 mg/dL (8.5-10.1); Chloride, Blood 100 mmol/L (98-108); Creatinine, Blood 4.16 mg/dL (0.40-1.00); Glomerular Filtration Rate 12 (60-); Glucose, Blood 251 mg/dL (70-99); Magnesium, Blood 2.1 mg/dL (1.6-2.4); Phosphorus, Blood 6.5 mg/dL (2.5-4.9); Potassium, Blood 4.9 mmol/L (3.5-5.5); Sodium, Blood 133 mmol/L (136-145)
--- NOTE | 2021-01-12 06:08 | NUR ---
SHIFT SUMMARY PATIENT ALERT AND ORIENTED. MEDICATED PER EMAR FOR HTN. NO COMPLAINTS OF SHORTNESS OF BREATH. CALL LIGHT WITHIN REACH. REPORT GIVEN TO ONCOMING RN.
--- NOTE | 2021-01-13 05:24 | NUR ---
SHIFT SUMMARY PATIENT ALERT AND ORIENTED. HAD NO COMPLAINTS OF PAIN OR SHORTNESS OF BREATH. NO ACUTE ISSUES NOTED OVERNIGHT. PATIENT ELECTED TO STAY UP IN HER CHAIR TO SLEEP. CALL LIGHT WITHIN REACH REPORT GIVEN TO ONCOMING RN.
[2021-01-13 05:28] LABS: Hematocrit 28.2 % (33.0-51.0); Hemoglobin 8.8 g/dL (11.5-16.0)
[2021-01-13 05:44] LABS: Albumin, Blood 2.1 g/dL (3.4-5.0); Anion Gap 6 mmol/L (6-16); Blood Urea Nitrogen 44 mg/dL (8-24); Bun/Creatinine Ratio 12.6 (12.0-20.0); CO2, Blood 29 mmol/L (21-32); Calcium, Blood 8.8 mg/dL (8.5-10.1); Chloride, Blood 100 mmol/L (98-108); Glomerular Filtration Rate 14 (60-); Glucose, Blood 294 mg/dL (70-99); Phosphorus, Blood 6.3 mg/dL (2.5-4.9); Sodium, Blood 135 mmol/L (136-145)
--- NOTE | 2021-01-13 17:12 | NUR ---
SHIFT SUMMARY PATIENT IS ALERT AND ORIENTED X4. PATIENT HAS HAD NO COMPLAINTS OF PAIN, SOB, NAUSEA, VOMITTING THIS SHIFT. PATIENT HAS HAD NO ACUTE EVENTS THIS SHIFT. PATIENT IS INDEPENDENT IN THE ROOM. CALL LIGHT IN REACH. VITAL SIGNS REVIEWED. WILL MONITOR UNTIL SHIFT CHANGE.
[2021-01-14 05:24] LABS: Hemoglobin 8.8 g/dL (11.5-16.0)
--- NOTE | 2021-01-14 05:26 | NUR ---
SHIFT SUMMARY PATIENT ALERT AND ORIENTED. NO COMPLAINTS OF PAIN OR SHORTNESS OF BREATH. NO ACUTE ISSUES NOTED OVERNGIHT. CALL LIGHT WITHIN REACH. REPORT GIVEN TO ONCOMING RN.
[2021-01-14 06:09] LABS: Albumin, Blood 2.3 g/dL (3.4-5.0); Anion Gap 11 mmol/L (6-16); Blood Urea Nitrogen 59 mg/dL (8-24); Bun/Creatinine Ratio 14.3 (12.0-20.0); CO2, Blood 25 mmol/L (21-32); Calcium, Blood 9.4 mg/dL (8.5-10.1); Chloride, Blood 98 mmol/L (98-108); Creatinine, Blood 4.12 mg/dL (0.40-1.00); Glomerular Filtration Rate 12 (60-); Glucose, Blood 310 mg/dL (70-99); Magnesium, Blood 2.2 mg/dL (1.6-2.4); Phosphorus, Blood 7.8 mg/dL (2.5-4.9); Potassium, Blood 5.6 mmol/L (3.5-5.5); Sodium, Blood 134 mmol/L (136-145)
--- NOTE | 2021-01-14 17:27 | NUR ---
SUMMARY PT SITTING UP IN THE CHAIR AT THE BEDSIDE WATCHING TV, PT HAS BEEN PLEASANT AND COOPERATIVE WITH CARE T/O THE DAY, PT HAD DIALYSIS TODAY, GRISEL WELL, NO COMPLAINTS T/O THE DAY, VSS, WILL CONT TO MONITOR
--- NOTE | 2021-01-15 04:12 | NUR ---
VB NET PROGRAMMER SUMMARY ADMITTED FOR ACUTE HYPOXIC RESPIRATORY FAILURE ON 12/21 (NOW RESOLVED). PT IS A FULL CODE. PT IS AWAITING PLACEMENT WITH OUTPATIENT DIALYSIS. SHE HAS BEEN RESTING THROUGHOUT THE NIGHT. PT IS NOW STANDBY ASSIST TO THE COMMODE AND PREFERS TO BE UP IN THE CHAIR. NO OTHER CONCERNS THIS SHIFT.
[2021-01-15 06:28] LABS: Hematocrit 29.2 % (33.0-51.0); Hemoglobin 9.2 g/dL (11.5-16.0)
[2021-01-15 06:46] LABS: Albumin, Blood 2.2 g/dL (3.4-5.0); Anion Gap 6 mmol/L (6-16); Blood Urea Nitrogen 42 mg/dL (8-24); Bun/Creatinine Ratio 10.8 (12.0-20.0); CO2, Blood 29 mmol/L (21-32); Calcium, Blood 9.1 mg/dL (8.5-10.1); Chloride, Blood 102 mmol/L (98-108); Glomerular Filtration Rate 12 (60-); Glucose, Blood 104 mg/dL (70-99); Phosphorus, Blood 6.7 mg/dL (2.5-4.9); Potassium, Blood 4.7 mmol/L (3.5-5.5); Sodium, Blood 137 mmol/L (136-145)
--- NOTE | 2021-01-15 17:25 | NUR ---
SUMMARY PT SITTING UP IN THE CHAIR A THE BEDSIDE, PT HAS BEEN PLEASANT AND COOPERATIVE WITH CARE, PLANNED TO HAVE A SHOWER, DECLINED SEVERAL TIMES, PT DID NOT HAVE DIALYSIS TODAY, UP WITH MIN ASSIST FROM THE BED TO THE CHAIR AND TO THE COMMODE, PT HAS BEEN ON THE PHONE FREQUENTLY TODAY, NO COMPLAINTS, VSS, WILL CONT TO MONITOR
--- NOTE | 2021-01-16 04:19 | NUR ---
ELECTRICIAN HELPER SUMMARY ADMITTED FOR HYPOXIC RESPIRATORY FAILURE ON 12/21 (RESOLVED). PT IS FULL CODE. AWAITING A SEAT AT AN OUTPATIENT DIALYSIS CLINIC. PT COMPLAINS OF STRONG SMELLING URINE AND INFORMED OF THE NEED TO DRINK WATER INSTEAD OF SODA. PT OFFERED A SHOWER THIS SHIFT AND DENIED OFFER. PT IS EXCITED FOR DIALYSIS TODAY. NO OTHER CONCERNS THIS SHIFT.
--- NOTE | 2021-01-16 18:05 | NUR ---
SUMMARY- PT A/O X4, UP IN CHAIR ALL DAY EXCEPT IN BED FOR DIALYSIS THIS AM [id number], HD PULLED OF 3L. BP 100/50 AFTER DIALYSIS, HELD 1400 CLONODINE. PT HAS CHRONIC BACK AND NEUROPATHY. NEURONTIN PRN HELPFUL AND ULTRAM THIS PM WITH STATED RELEIF. PT HAD A SHOWER AND TOLERATING FOOD AND FLUIDS, KEEPING IN FLUID RESTRICTION OF 1.5L
--- NOTE | 2021-01-16 22:47 | NUR ---
CALLED FOR THAT ONE TIME ORDER FOR GABAPENTIN. AND HE IS AGREE FOR 1 TIME ORDER ONLY
[2021-01-17 06:28] LABS: Hemoglobin 10.2 g/dL (11.5-16.0)
[2021-01-17 06:39] LABS: Albumin, Blood 2.5 g/dL (3.4-5.0); Anion Gap 8 mmol/L (6-16); Blood Urea Nitrogen 49 mg/dL (8-24); Bun/Creatinine Ratio 11.3 (12.0-20.0); CO2, Blood 30 mmol/L (21-32); Calcium, Blood 9.5 mg/dL (8.5-10.1); Chloride, Blood 97 mmol/L (98-108); Creatinine, Blood 4.34 mg/dL (0.40-1.00); Glomerular Filtration Rate 11 (60-); Glucose, Blood 206 mg/dL (70-99); Phosphorus, Blood 7.1 mg/dL (2.5-4.9); Potassium, Blood 4.5 mmol/L (3.5-5.5); Sodium, Blood 135 mmol/L (136-145)
--- NOTE | 2021-01-17 18:12 | NUR ---
SHIFT SUMMARY PATIENT IS ALERT AND ORIENTED, PLEASANT AND COOPERATIVE WITH CARE. PATIENT USES 2L O2 VIA NASAL CANNULA PRN. PATIENT COMPLAINED OF BURNING STINGING PAIN IN FEET. PATIENT WAS MEDICATED PER DOCTOR'S ORDER'S IN THE MAY. THE PATIENT IS EATING DINNER WITH SPOUSE PRESENT IN THE ROOM. INSULI COVERAGE PER SLIDING SCALE NEEDED ONE TIME THIS SHIFT. PATIENT WILL MAKE NEEDS KNOWN. VITAL SIGNS STABLE, NO ACUTE CHANGES. PATIENT STILL AWAITING A SPOT WITH [facility] FOR DIALYSIS ONCE THEY ARE DISCHARGED. THIS NURSE WILL CONTINUE TO CARE FOR THE PATIENT UNTIL SHIFT REPORT IS GIVEN TO ONCOMING NURSE.
[2021-01-18 05:24] LABS: Hematocrit 31.7 % (33.0-51.0); Hemoglobin 10.2 g/dL (11.5-16.0)
[2021-01-18 06:02] LABS: Albumin, Blood 2.5 g/dL (3.4-5.0); Anion Gap 9 mmol/L (6-16); Blood Urea Nitrogen 63 mg/dL (8-24); Bun/Creatinine Ratio 11.6 (12.0-20.0); CO2, Blood 25 mmol/L (21-32); Calcium, Blood 9.5 mg/dL (8.5-10.1); Chloride, Blood 97 mmol/L (98-108); Creatinine, Blood 5.42 mg/dL (0.40-1.00); Glomerular Filtration Rate 9 (60-); Glucose, Blood 108 mg/dL (70-99); Magnesium, Blood 2.1 mg/dL (1.6-2.4); Phosphorus, Blood 7.8 mg/dL (2.5-4.9); Potassium, Blood 4.8 mmol/L (3.5-5.5); Sodium, Blood 131 mmol/L (136-145)
--- NOTE | 2021-01-18 06:23 | NUR ---
PT ALERT AND ORIENTED. C/O OF PAIN IN LOWER EXTREMITTIES AND SWOLLEN . REFUSED TO REST ON BED. MD CALLED SEVERAL TIMES FOR PAIN MEDS. PT SAID SHE WILL GET A SHOWER TODAY DURING DAYTIME. REFUSED TO BE CHANGED. TEARFULL. BLOOD PRESSURE ELEVATED. KEEP MONITORING
--- NOTE | 2021-01-18 18:02 | NUR ---
SHIFT SUMMARY; PATIENT RECEIVED DIALYSIS THIS AM. SHE DID RECEIVE A BED BATH AND PICTURE TAKEN OF DARK BLUE SORE ON LEFT BUTTOCK. PATIENT SAYS SHE HAS BEEN SCRATCHING AT THAT AREA. PATIENT APPEARS TO BE MUCH HAPPIER THIS AFTERNOON AND IS NOTED TO BE VISITING WITH HER DAUGHTER AFTER LUNCH. PATIENT TAKES MEDICATIONS WITHOUT DIFFICULTY AND IS COOPERATIVE WITH CARE. SHE IS ENCOURAGED TO LAY IN BED THIS AFTERNOON AND NOT SIT IN CHAIR SO SHE CAN BE OFF HER LEFT BUTTOCK. VITAL SIGNS ARE STABLE AND HER CBG'S ARE COVERED WITH MINIMAL DOSES OF INSULIN. ORLIN ALEJANDRA RN
--- NOTE | 2021-01-18 21:54 | NUR ---
PHYSICIAN NOTIFY CONVEX GRINDER PROVIDER NOTIFIED CBG 421, NEW ORDER TO GIVE 25 UNITS LONG ACTING INSTEAD OF 15.
--- NOTE | 2021-01-19 04:38 | NUR ---
SHIFT SUMMARY PT ALERT AND ORIENTED. SHE REST ON BED TONIGHT. PT HAS GOOD NIGHT SLEEPING. BS OUT OF RANGE. MD CALL AND INCREASE DOSAGE OF INSULIN. NO ACUTE DISTRESS AT THIS TIME. CALL LIGHT DARBY JUNIOR. KEEP MONITORING
[2021-01-19 05:57] LABS: Hematocrit 27.7 % (33.0-51.0); Hemoglobin 8.7 g/dL (11.5-16.0)
[2021-01-19 06:35] LABS: Albumin, Blood 2.1 g/dL (3.4-5.0); Anion Gap 6 mmol/L (6-16); Blood Urea Nitrogen 47 mg/dL (8-24); Bun/Creatinine Ratio 11.6 (12.0-20.0); CO2, Blood 29 mmol/L (21-32); Calcium, Blood 8.9 mg/dL (8.5-10.1); Chloride, Blood 101 mmol/L (98-108); Creatinine, Blood 4.05 mg/dL (0.40-1.00); Glomerular Filtration Rate 12 (60-); Glucose, Blood 284 mg/dL (70-99); Magnesium, Blood 2.1 mg/dL (1.6-2.4); Phosphorus, Blood 5.8 mg/dL (2.5-4.9); Potassium, Blood 5.4 mmol/L (3.5-5.5); Sodium, Blood 136 mmol/L (136-145)
--- NOTE | 2021-01-19 18:12 | NUR ---
PT PLEASANT TODAY. NO DIALYSIS TODAY. DID TAKE SHOWER THIS AFTERNOON. NO NEW COMPLAINTS TO ME TODAY. MOSTLY PLEASANT TODAY. IN CHAIR SOME TODAY. BED IN LOW POSITION, CALL LITE IN REACH, CALLS APROP
--- NOTE | 2021-01-20 03:36 | NUR ---
PT ALERT AND ORIENTED. NO ACUTE DISTRESS DURING SHIFT. PT REST IN BED AGAIN WITH CPAP. NO ACUTE DISTRESS AT THIS TIME
[2021-01-20 05:31] LABS: Hematocrit 27.3 % (33.0-51.0); Hemoglobin 8.7 g/dL (11.5-16.0)
[2021-01-20 05:49] LABS: Albumin, Blood 2.2 g/dL (3.4-5.0); Anion Gap 7 mmol/L (6-16); Blood Urea Nitrogen 54 mg/dL (8-24); Bun/Creatinine Ratio 11.4 (12.0-20.0); CO2, Blood 27 mmol/L (21-32); Calcium, Blood 9.3 mg/dL (8.5-10.1); Chloride, Blood 101 mmol/L (98-108); Creatinine, Blood 4.73 mg/dL (0.40-1.00); Glomerular Filtration Rate 10 (60-); Glucose, Blood 206 mg/dL (70-99); Magnesium, Blood 2.1 mg/dL (1.6-2.4); Phosphorus, Blood 6.1 mg/dL (2.5-4.9); Potassium, Blood 4.5 mmol/L (3.5-5.5); Sodium, Blood 135 mmol/L (136-145)
--- NOTE | 2021-01-20 17:57 | NUR ---
TALKED TO DR TODAY ABOUT PT LOWER CBG. NO CHANGES AT THIS TIME. PT FEELS MOSTLY OKAY, JUST SOME SHAKEY. DID HAVE DIALYSIS TODAY. DID C/O PAIN IN ARMS TODAY. MED WITH NEURONTIN X1 AND ULTRAM X2 TODAY. NO OTHER CONCERNS NOTED TODAY. BED IN LOW POSITION, CALL LITE IN REACH, CALLS APPROP
[2021-01-21 05:17] LABS: Hematocrit 23.4 % (33.0-51.0); Hemoglobin 7.3 g/dL (11.5-16.0)
[2021-01-21 05:47] LABS: Albumin, Blood 1.8 g/dL (3.4-5.0); Anion Gap 5 mmol/L (6-16); Blood Urea Nitrogen 34 mg/dL (8-24); Bun/Creatinine Ratio 9.7 (12.0-20.0); CO2, Blood 29 mmol/L (21-32); Calcium, Blood 8.2 mg/dL (8.5-10.1); Chloride, Blood 108 mmol/L (98-108); Creatinine, Blood 3.51 mg/dL (0.40-1.00); Glomerular Filtration Rate 14 (60-); Glucose, Blood 54 mg/dL (70-99); Magnesium, Blood 1.7 mg/dL (1.6-2.4); Phosphorus, Blood 4.3 mg/dL (2.5-4.9); Potassium, Blood 3.5 mmol/L (3.5-5.5); Sodium, Blood 142 mmol/L (136-145)
--- NOTE | 2021-01-21 06:22 | NUR ---
SHIFT SUMMARY PT ALERT AND ORIENTED. LOW BLOOD SUGAR REGISTERED OVERNIGHT.CORRECTED PT RESTING ON BED . DENIES PAIN AT THIS TIME.
[2021-01-21 09:08] LABS: HBSAG SCREEN Negative (Negative)
--- NOTE | 2021-01-21 16:48 | NUR ---
SHIFT SUMMARY PT UP TO CHAIR TODAY WITH THERAPY. SHOWERED TODAY WITH ASSISTANCE FROM AIDE. ANTIFUNGAL REAPPIED TO GROIN. NO ACUTE CHANGES IN ASSESSMENT AT THIS TIME. VS REVIEWED. PT UP IN CHAIR & STATES SHE HAS NO CONCERNS. CALL LIGHT IN REACH.
--- NOTE | 2021-01-22 04:32 | NUR ---
SHIFT SUMMARY A/OX4, 1-2 ASSIST WITH TRANSFERS. C/O GENARLIZED PAIN TO BLE, MEDICATED PER EMAR. PERMACATH TO RCW. VSS, NO ACUTE CHANGES AT THIS TIME. BED IN LOWEST POSITION WITH CALL LIGHT IN REACH. WILL CONTINUE TO MONITOR AND REPORT TO ONCOMING RN.
[2021-01-22 05:53] LABS: Hematocrit 30.4 % (33.0-51.0); Hemoglobin 9.5 g/dL (11.5-16.0)
[2021-01-22 06:22] LABS: Albumin, Blood 2.2 g/dL (3.4-5.0); Anion Gap 8 mmol/L (6-16); Blood Urea Nitrogen 48 mg/dL (8-24); Bun/Creatinine Ratio 10.4 (12.0-20.0); CO2, Blood 26 mmol/L (21-32); Calcium, Blood 9.6 mg/dL (8.5-10.1); Chloride, Blood 101 mmol/L (98-108); Creatinine, Blood 4.62 mg/dL (0.40-1.00); Glomerular Filtration Rate 10 (60-); Glucose, Blood 266 mg/dL (70-99); Magnesium, Blood 2.1 mg/dL (1.6-2.4); Potassium, Blood 4.8 mmol/L (3.5-5.5); Sodium, Blood 135 mmol/L (136-145)
--- NOTE | 2021-01-22 17:22 | NUR ---
SHIFT SUMMARY PT HAD DIALYSIS TODAY. UP IN CHAIR AFTERWARDS. ALY CARE AND ANTIFUNGAL POWDER APPLIED AT THIS TIME THIS AFTERNOON. PT DID NOT WANT IF DONE THIS AM. ORDER FOR PG TO BE REMOVED AND NO IV ACCESS OBTAINED TODAY FROM DR. SNYDER. MEDICATED FOR PAIN ONCE PRN. NO OTHER ACUTE CHANGES IN ASSESSMENT AT THIS TIME. VS REVIEWED. PT UP IN CHAIR. CALL LIGHT IN REACH.
[2021-01-23 05:00] LABS: Hematocrit 35.1 % (33.0-51.0); Hemoglobin 11.1 g/dL (11.5-16.0)
[2021-01-23 05:50] LABS: Albumin, Blood 2.8 g/dL (3.4-5.0); Anion Gap 9 mmol/L (6-16); Blood Urea Nitrogen 42 mg/dL (8-24); Bun/Creatinine Ratio 10.6 (12.0-20.0); CO2, Blood 27 mmol/L (21-32); Calcium, Blood 9.7 mg/dL (8.5-10.1); Chloride, Blood 97 mmol/L (98-108); Creatinine, Blood 3.96 mg/dL (0.40-1.00); Glomerular Filtration Rate 12 (60-); Glucose, Blood 268 mg/dL (70-99); Magnesium, Blood 2.2 mg/dL (1.6-2.4); Phosphorus, Blood 5.3 mg/dL (2.5-4.9); Potassium, Blood 4.9 mmol/L (3.5-5.5); Sodium, Blood 133 mmol/L (136-145)
--- NOTE | 2021-01-23 06:44 | NUR ---
SHIFT SUMMARY A/OX4, 1-2 ASSIST FOR TRANSFERS. 2L VIA NC AT BASELINE. C/O GENERALIZED PAIN, MEDICATED PER EMAR. PERMACATH TO RCW. BED IN LOWEST POSITION WITH CALL LIGHT IN REACH. WILL CONTINUE TO MONITOR AND REPORT TO ONCOMING RN.
--- NOTE | 2021-01-23 17:33 | NUR ---
SHIFT SUMMARY PT IS AOX4. PT MEDICATED FOR PAIN X1. PT DENIES N/V, SOB. PT APPETITE IS GOOD. CONTACT ISOLATION MAINTAINED T/O SHIFT. PT IS 1-2 ASSIST FOR TRANSFERS. PT DID NOT HAVE DIALYSIS TODAY. VSS. PT HAD NO VISITORS THIS SHIFT. PT IS IN RECLINER, CALL LIGHT IN REACH.
--- NOTE | 2021-01-24 05:29 | NUR ---
SHIFT SUMMARY PT UP IN RECLINER UNTIL LATE IN THE EVENING. TRANSFERED TO BED WITH ONE PERSON ASSIST. PT ON 2 L VIA NC THROUGHOUT MOST OF THE NIGHT. PT WILL INTERMITTENTLY REMOVE IT. SHE STATES THAT AT HOME SHE USUALLY ONLY USES OXYGEN AT NIGHT AND NOT ALL THE TIME. PERMACATH TO R CHEST WALL. PT COMPLIANT WITH FLUID RESTRICTION. VITAL SIGNS STABLE. NO ACUTE CHANGES THIS SHIFT. WILL CONTINUE TO MONITOR.
[2021-01-24 13:57] LABS: Hematocrit 29.6 % (33.0-51.0); Hemoglobin 9.3 g/dL (11.5-16.0)
[2021-01-24 14:06] LABS: Albumin, Blood 2.4 g/dL (3.4-5.0); Anion Gap 5 mmol/L (6-16); Blood Urea Nitrogen 42 mg/dL (8-24); Bun/Creatinine Ratio 11.8 (12.0-20.0); CO2, Blood 32 mmol/L (21-32); Calcium, Blood 9.2 mg/dL (8.5-10.1); Chloride, Blood 99 mmol/L (98-108); Creatinine, Blood 3.55 mg/dL (0.40-1.00); Glomerular Filtration Rate 14 (60-); Glucose, Blood 151 mg/dL (70-99); Magnesium, Blood 1.9 mg/dL (1.6-2.4); Phosphorus, Blood 4.4 mg/dL (2.5-4.9); Potassium, Blood 3.7 mmol/L (3.5-5.5); Sodium, Blood 136 mmol/L (136-145)
--- NOTE | 2021-01-24 16:22 | NUR ---
SHIFT SUMMARY PT IS AOX4. PT MEDICATED FOR PAIN X2. PT DENIES N/V, SOB. CONTACT ISOLATION MAINTAINED T/O SHIFT. PT APPETITE IS GOOD. PT IS 1-2 ASSIST FOR TRANSFERS. PT HAD DIALYSIS TODAY. PT DID NOT HAVE VISITORS THIS SHIFT. PLAN IS FOR [facility] PENDING DIALYSIS CHAIR. PT IS IN BED, CALL LIGHT IN REACH, LOW POSITION.
--- NOTE | 2021-01-25 05:11 | NUR ---
PT HAS BEEN AWAKE FOR MOST OF THE NIGHT AND DID NOT WANT TO GET INTO BED. PT REMAINS ORIENTED X4 AND A 2 PERSON ASSIST. PT HTN TREATED PER MAR. STAFF WILL CONTINUE TO MONITOR.
[2021-01-25 05:40] LABS: Hematocrit 31.2 % (33.0-51.0)
[2021-01-25 06:03] LABS: Albumin, Blood 2.5 g/dL (3.4-5.0); Anion Gap 10 mmol/L (6-16); Blood Urea Nitrogen 46 mg/dL (8-24); Bun/Creatinine Ratio 11.7 (12.0-20.0); CO2, Blood 28 mmol/L (21-32); Calcium, Blood 9.5 mg/dL (8.5-10.1); Chloride, Blood 96 mmol/L (98-108); Creatinine, Blood 3.94 mg/dL (0.40-1.00); Glomerular Filtration Rate 12 (60-); Glucose, Blood 301 mg/dL (70-99); Phosphorus, Blood 5.3 mg/dL (2.5-4.9); Potassium, Blood 4.2 mmol/L (3.5-5.5); Sodium, Blood 134 mmol/L (136-145)
--- NOTE | 2021-01-25 18:52 | NUR ---
PT PLEASANT TODAY. NO NEW COMPLAINTS. NO DIALYSIS TODAY. STATES FEELS BETTER ABOUT [facility] LAST FEW DAYS. BED IN LOW POSITION, CALL LITE IN REACH, CALLS APPROP
--- NOTE | 2021-01-26 04:48 | NUR ---
NO CHANGES OVER NIGHT. PATIENT SLEPT IN HER BED, RESTED WELL AND MADE NO COMPLAINTS. WILL CONTINUE TO MONITOR FOR CHANGES.
[2021-01-26 05:43] LABS: Hematocrit 28.2 % (33.0-51.0); Hemoglobin 8.9 g/dL (11.5-16.0)
[2021-01-26 06:33] LABS: Albumin, Blood 2.4 g/dL (3.4-5.0); Anion Gap 10 mmol/L (6-16); Blood Urea Nitrogen 55 mg/dL (8-24); Bun/Creatinine Ratio 11.5 (12.0-20.0); CO2, Blood 27 mmol/L (21-32); Calcium, Blood 9.4 mg/dL (8.5-10.1); Chloride, Blood 98 mmol/L (98-108); Creatinine, Blood 4.78 mg/dL (0.40-1.00); Glomerular Filtration Rate 10 (60-); Glucose, Blood 232 mg/dL (70-99); Magnesium, Blood 2.1 mg/dL (1.6-2.4); Phosphorus, Blood 6.1 mg/dL (2.5-4.9); Potassium, Blood 4.5 mmol/L (3.5-5.5); Sodium, Blood 135 mmol/L (136-145)
--- NOTE | 2021-01-26 13:02 | NUR ---
PT HAD DIALYSIS THIS MORNING, PRESENTLY IN ROOM EATING LUNCH, NO ACUTE DISTRESS NOTED,VITALS WNL, CALL LIGHT IN PLACE WILL CONTINUE TO MONITOR.
[2021-01-27 05:19] LABS: Hemoglobin 9.6 g/dL (11.5-16.0)
--- NOTE | 2021-01-27 05:46 | NUR ---
NO CHANGES OVER NIGHT. PT REMAINS ALERT AND ORIENTED X4, 1-2 PERSON ASSIST TO TRANSFER FROM CHAIR TO BED. PT MAKES NO COMPLAINTS. STAFF WILL CONTINUE TO MONITOR.
[2021-01-27 06:12] LABS: Albumin, Blood 2.6 g/dL (3.4-5.0); Anion Gap 7 mmol/L (6-16); Blood Urea Nitrogen 43 mg/dL (8-24); Bun/Creatinine Ratio 10.1 (12.0-20.0); CO2, Blood 30 mmol/L (21-32); Chloride, Blood 96 mmol/L (98-108); Creatinine, Blood 4.25 mg/dL (0.40-1.00); Glomerular Filtration Rate 11 (60-); Glucose, Blood 281 mg/dL (70-99); Magnesium, Blood 2.3 mg/dL (1.6-2.4); Phosphorus, Blood 5.4 mg/dL (2.5-4.9); Potassium, Blood 4.5 mmol/L (3.5-5.5); Sodium, Blood 133 mmol/L (136-145)
--- NOTE | 2021-01-27 18:41 | NUR ---
PT AAOX4 NO ACUTE DISTRESS NOTED,VITALS WNL,ASSISTED WITH ADLS NEEDED, DENIES PAIN,CALL LIGHT WITHIN REACH.
[2021-01-28 05:13] LABS: Hematocrit 30.2 % (33.0-51.0); Hemoglobin 9.5 g/dL (11.5-16.0)
--- NOTE | 2021-01-28 05:14 | NUR ---
PT RESTING IN BED AT THIS TIME. REMAINS ALERT AND ORIENTED X4 AND MAKES NO COMPLAINTS. NO CHANGES TO REPORT. STAFF WILL CONT TO MONITOR.
[2021-01-28 06:16] LABS: Albumin, Blood 2.4 g/dL (3.4-5.0); Anion Gap 9 mmol/L (6-16); Blood Urea Nitrogen 57 mg/dL (8-24); CO2, Blood 29 mmol/L (21-32); Calcium, Blood 9.4 mg/dL (8.5-10.1); Chloride, Blood 98 mmol/L (98-108); Creatinine, Blood 5.18 mg/dL (0.40-1.00); Glomerular Filtration Rate 9 (60-); Glucose, Blood 152 mg/dL (70-99); Magnesium, Blood 2.1 mg/dL (1.6-2.4); Phosphorus, Blood 6.7 mg/dL (2.5-4.9); Potassium, Blood 4.5 mmol/L (3.5-5.5); Sodium, Blood 136 mmol/L (136-145)
--- NOTE | 2021-01-28 18:35 | NUR ---
PT REMAIN STABLE ALL SHIFT,NO ACUTE DISTRESS, VISITED WITH FAMILY AND 3 DOGS, SOME SLEEPING IN PT BED, SOME WALKING IN HALLWAY AND IN ROOM, SOME STAFFS SCARCED OF DOGS AND WERE UNCOMFORTABLE. PT NON COMPLIANCE WITH FLIUD RESTRICTIONS AND DIET. NEEDS MET NEEDED, ASSISTED WITH ADLS AND TRANSFER.HAD DIALYSIS TODAY, CAME IN AND VERBALLY INAPPROPRIATE TOWARDS STAFFS,REDIRECTED WITH SOME EFFECT, CALL LIGHT WITHIN REACH AND WILL CONTINUE TO MONITOR.
--- NOTE | 2021-01-29 04:56 | NUR ---
ICU RN SUMMARY PATIENT HAD A FAIR SHIFT, HER BLOOD PRESSURE WAS ELEVATED AND SHE GOT BP MED. NO COMPLAINTS LODGED. WILL CONTINUE TO MONITOR HER.
--- NOTE | 2021-01-29 18:17 | NUR ---
PATIENT UP IN RECLINER EATING DINNER. PATIENT HAS SITTING IN RECLINER ALL DAY. PATIENT HAS GOOD APPETITE. PATIENT DID NOT HAVE DIALYSIS TODAY. PATIENT FAMILY WAS UNABLE TO MAKE IT IN TODAY. PATIENT IS AWAITING AN OUTPATIENT DIALYSIS CHAIR TO BE D/C. BOTH PATIENT AND PATIENTS ARE WANTING FOR HER TO GET D/C SWAPNIL. WHILE THEY ARE PLEASANT ABOUT IT THEY ARE BECOMING INCREASINGLY FRUSTRATED WITH THE SITUATION. VS STABLE. WILL CONTINUE TO MONITOR.
--- NOTE | 2021-01-30 04:29 | NUR ---
FOIL STAMP OPERATOR SUMMARY PATIENT HAD A FAIR SHIFT. NO COMPLAINTS LODGED. BLOOD PRESSURE IS ELEVATED AND SHE GOT HER PRN MED. WILL CONTINUE TO MONITOR HER.
[2021-01-30 05:14] LABS: Hematocrit 31.5 % (33.0-51.0); Hemoglobin 9.9 g/dL (11.5-16.0)
[2021-01-30 06:16] LABS: Albumin, Blood 2.6 g/dL (3.4-5.0); Anion Gap 10 mmol/L (6-16); Blood Urea Nitrogen 55 mg/dL (8-24); CO2, Blood 26 mmol/L (21-32); Calcium, Blood 9.8 mg/dL (8.5-10.1); Chloride, Blood 98 mmol/L (98-108); Creatinine, Blood 5.02 mg/dL (0.40-1.00); Glomerular Filtration Rate 9 (60-); Glucose, Blood 224 mg/dL (70-99); Magnesium, Blood 2.3 mg/dL (1.6-2.4); Phosphorus, Blood 5.7 mg/dL (2.5-4.9); Potassium, Blood 4.6 mmol/L (3.5-5.5); Sodium, Blood 134 mmol/L (136-145)
--- NOTE | 2021-01-30 19:13 | NUR ---
SHIFT SUMMARY PATIENT RESTING SITTING UP IN RECLINER. PATIENT WENT TO DIALYSIS TODAY. TOLERATED WELL. COOPERATIVE WITH CARE. VS STABLE. WILL CONTINUE TO MONITOR.
--- NOTE | 2021-01-31 03:38 | NUR ---
EQUIPMENT HIRE MANAGER SUMMARY PATIENT HAD A FAIR SHIFT. BP STILL ELEVATED, SHE HAD PRN APRESOLIN, SEE EMAR. WILL CONTINUE TO MONITOR HER. THE
[2021-02-01 05:49] LABS: Hematocrit 35.2 % (33.0-51.0); Hemoglobin 11.3 g/dL (11.5-16.0)
[2021-02-01 06:48] LABS: Albumin, Blood 2.9 g/dL (3.4-5.0); Anion Gap 10 mmol/L (6-16); Blood Urea Nitrogen 62 mg/dL (8-24); Bun/Creatinine Ratio 11.5 (12.0-20.0); CO2, Blood 27 mmol/L (21-32); Calcium, Blood 9.9 mg/dL (8.5-10.1); Chloride, Blood 95 mmol/L (98-108); Creatinine, Blood 5.39 mg/dL (0.40-1.00); Glomerular Filtration Rate 9 (60-); Glucose, Blood 408 mg/dL (70-99); Potassium, Blood 4.6 mmol/L (3.5-5.5); Sodium, Blood 132 mmol/L (136-145)
--- NOTE | 2021-02-01 08:00 | NUR ---
PT WITH CBG OF 429, T/C TO DR CRONIN, PT TO RECEIVE SLIDING SCALE AND SMEGLE DOSE ALREADY ORDERED. NO ADDIITIONAL INSULIN AT THIS TIME PER MD.
--- NOTE | 2021-02-01 18:22 | NUR ---
PT RECEIVED HD TODAY, TOLERATED WELL, RETURNED TO ROOM EXPECTING TO BE DISCHARGED THIS AFTERNOON. T/C TO DR LEMUS AND DR CRONIN ARE COORDINATING WITH DR CASTANEDA AND AMANDA FOR CHAIR TIME. EXPECTING DISCHARGE IN NEXT FEW DAYS. INSULIN CORRECTION SCALE CHANGED FROM MEDIUM TO HIGH. NO ACUTE CHANGES NOTED THIS SHIFT, WILL CONTINUE TO MONITOR AND REPORT TO ONCOMING RN.
--- NOTE | 2021-02-02 03:01 | NUR ---
PROFILING MACHINE SET UP OPERATOR TOOL SUMMARY PATIENT WAS MET CALM ON THE CHAIR. ALERT AND ORIENTED, HER VITALS CHECKED AND DOCUMENTED. STILL COMPLAINING OF PAIN ON HER LEGS, NEUROTIN ADMINISTERED. WILL CONTINUE TO MONITOR HER.
[2021-02-02 05:16] LABS: Hematocrit 30.6 % (33.0-51.0); Hemoglobin 9.9 g/dL (11.5-16.0)
[2021-02-02 05:49] LABS: Albumin, Blood 2.4 g/dL (3.4-5.0); Anion Gap 9 mmol/L (6-16); Blood Urea Nitrogen 49 mg/dL (8-24); CO2, Blood 30 mmol/L (21-32); Calcium, Blood 9.3 mg/dL (8.5-10.1); Chloride, Blood 98 mmol/L (98-108); Glomerular Filtration Rate 10 (60-); Glucose, Blood 252 mg/dL (70-99); Magnesium, Blood 1.9 mg/dL (1.6-2.4); Phosphorus, Blood 5.3 mg/dL (2.5-4.9); Potassium, Blood 3.9 mmol/L (3.5-5.5); Sodium, Blood 137 mmol/L (136-145)
--- NOTE | 2021-02-02 18:26 | NUR ---
SHIFT SUMMARY PATIENT SITTING IN CHAIR RESTING. PATIENT IS WAITING FOR DIALYSIS CHAIR TO BECOME AVAILABLE FOR DISCHARGE. PATIENT HAD DIALYSIS YESTERDAY AND DID NOT GO TODAY. PATIENT IS PLEASANT AND COOPERATIVE. PATIENT HAD PAIN IN HER FEET AND MEDICATED PER MAY. VITAL SIGNS STABLE. WILL CONTINUE TO MONITOR.
--- NOTE | 2021-02-03 03:37 | NUR ---
ROUGE PRESSER SUMMARY PATIENT HAD A FAIR SHIFT. NO OVERNIGHT ISSUES. HER VITALS CHECKED AND RECORDED. THEY WERE STABLE. WILL CONTINUE TO MONITOR HER.
--- NOTE | 2021-02-03 18:36 | NUR ---
SHIFT SUMMARY PATIENT SITTING UP IN CHAIR VISITING WITH FAMILY. PATIENT WENT TO DIALYSIS TODAY. TOLERATED WELL. PATIENT COMPLAINING OF PAIN IN FEET. MEDICATED PER MAR. PATIENT AWAITING OUTPATIENT DIALYSIS CHAIR AVAILABILITY BEFORE DISCHARGED. VS STABLE. WILL CONTINUE TO MONITOR
--- NOTE | 2021-02-04 04:58 | NUR ---
SUMMARY PT HAS NO NEW ISSUES NOTED. PT WAS UP LATE TALKING ON PHONE. PT STAYED IN CHAIR T/OUT THE SHIFT. PT HAS NO COMPLAINTS. PT EAGER TO GO HOME. CALL LIGHT IN REACH.
[2021-02-04 05:35] LABS: Hematocrit 33.8 % (33.0-51.0); Hemoglobin 10.8 g/dL (11.5-16.0)
[2021-02-04 05:51] LABS: Albumin, Blood 2.8 g/dL (3.4-5.0); Anion Gap 10 mmol/L (6-16); Blood Urea Nitrogen 50 mg/dL (8-24); Bun/Creatinine Ratio 10.8 (12.0-20.0); CO2, Blood 28 mmol/L (21-32); Calcium, Blood 9.6 mg/dL (8.5-10.1); Chloride, Blood 97 mmol/L (98-108); Creatinine, Blood 4.62 mg/dL (0.40-1.00); Glomerular Filtration Rate 10 (60-); Glucose, Blood 183 mg/dL (70-99); Magnesium, Blood 2.2 mg/dL (1.6-2.4); Phosphorus, Blood 5.2 mg/dL (2.5-4.9); Potassium, Blood 4.5 mmol/L (3.5-5.5); Sodium, Blood 135 mmol/L (136-145)
[2021-02-04] MEDS ORDERED: FERSU300 PO (15:03)
[2021-02-04] MEDS ORDERED: FURO80 PO (15:03)
[2021-02-04] MEDS ORDERED: HYDHCL25 PO (15:03)
[2021-02-04] MEDS ORDERED: ONDA4ODT MM (15:05)
[2021-02-04] MEDS ORDERED: MIRALAX17 GM PO (15:05)
[2021-02-04] MEDS ORDERED: ANTIFUNGAL POWD71 GM TOP (15:05)
--- NOTE | 2021-02-04 18:46 | NUR ---
DISCHARGE SUMMARY PATIENT DISCHARGED TO HOME. PATIENT ALERT AND ORIENTED THIS SHIFT. PATIENT UP SITTING IN THE CHAIR THROUGHOUT THIS SHIFT. PATIENT ON RA. PATIENT MEDICATED PER CHRONIC PAIN IN BACK AND LEGS THIS SHIFT. PLANS FOR INTAKE AT [facility] TOMORROW MORNING IN PLACE UPON DISCHARGE. DISCHARGE AND MEDICATION INSTRUCTIONS REVIEWED WITH PATIENT. QUESTIONS ANSWERED TO PATIENT'S SATISFACTION. PATIENT WITHOUT AN IV THIS SHIFT. PATIENT'S FAMILY IN THE ROOM TO ASSIST WITH DISCHARGE. PATIENT TO VEHICLE VIA WHEELCHAIR.
== END 2021-02-04 18:35 | disposition home or self-care (01) | DRG 673 ==
LOC: ER 10:43 → ICUW 12:42 → PCU 12-24 21:01 → MEDS 12-26 13:26
PROVIDERS: Emergency Medicine; Hospitalist; Internal Medicine; Internal Medicine Critical Care Medicine; Internal Medicine Nephrology; Nurse Practitioner Acute Care; Student in an Organized Health Care Education/Training Program; ADMIT Internal Medicine
PROC: 5A09457 Assistance with Respiratory Ventilation, 24-96 Consecutive Hours, Continuous Positive Airway Pressure (ICD-10-PCS; 2020-12-21)
PROC: 3E02340 Introduction of Influenza Vaccine into Muscle, Percutaneous Approach (ICD-10-PCS; 2020-12-21)
PROC: 0JH63XZ Insertion of Tunneled Vascular Access Device into Chest Subcutaneous Tissue and Fascia, Percutaneous Approach (ICD-10-PCS; principal; 2020-12-25)
PROC: 02HV33Z Insertion of Infusion Device into Superior Vena Cava, Percutaneous Approach (ICD-10-PCS; 2020-12-25)
PROC: B518YZA Fluoroscopy of Superior Vena Cava using Other Contrast, Guidance (ICD-10-PCS; 2020-12-25)
PROC: B548ZZA Ultrasonography of Superior Vena Cava, Guidance (ICD-10-PCS; 2020-12-25)
PROC: 5A1D70Z Performance of Urinary Filtration, Intermittent, Less than 6 Hours Per Day (ICD-10-PCS; 2020-12-25)
PROC: XW023U6 Introduction of COVID-19 Vaccine into Muscle, Percutaneous Approach, New Technology Group 6 (ICD-10-PCS; 2021-01-02)
DX: N17.9 Acute kidney failure, unspecified (principal); I21.A1 Myocardial infarction type 2; J96.01 Acute respiratory failure with hypoxia; R65.11 Systemic inflammatory response syndrome (SIRS) of non-infectious origin with acute organ dysfunction; I50.33 Acute on chronic diastolic (congestive) heart failure; I13.2 Hypertensive heart and chronic kidney disease with heart failure and with stage 5 chronic kidney disease, or end stage renal disease; I16.1 Hypertensive emergency; E87.2 Acidosis; E87.1 Hypo-osmolality and hyponatremia; N18.6 End stage renal disease; E11.22 Type 2 diabetes mellitus with diabetic chronic kidney disease; G47.33 Obstructive sleep apnea (adult) (pediatric); D63.1 Anemia in chronic kidney disease; E11.42 Type 2 diabetes mellitus with diabetic polyneuropathy; Q77.4 Achondroplasia; Z88.2 Allergy status to sulfonamides; Z88.8 Allergy status to other drugs, medicaments and biological substances; Z88.0 Allergy status to penicillin; F11.90 Opioid use, unspecified, uncomplicated; E66.01 Morbid (severe) obesity due to excess calories; Z86.718 Personal history of other venous thrombosis and embolism; Z86.73 Personal history of transient ischemic attack (TIA), and cerebral infarction without residual deficits; K21.9 Gastro-esophageal reflux disease without esophagitis; J44.9 Chronic obstructive pulmonary disease, unspecified; E87.6 Hypokalemia; L29.9 Pruritus, unspecified; Z68.36 Body mass index [BMI] 36.0-36.9, adult; N25.81 Secondary hyperparathyroidism of renal origin; I27.20 Pulmonary hypertension, unspecified; F41.9 Anxiety disorder, unspecified; Z23 Encounter for immunization
CPT/HCPCS: 36415; 36430; 36558; 36600; 51702; 71045; 76937; 77001; 80053; 80069; 80074; 81001; 81050; 82010; 82607; 82728; 82746; 82803; 82947; 83036; 83540; 83550; 83605; 83735; 83880; 84132; 84145; 84156; 84443; 84484; 85014; 85018; 85025; 86317; 86850; 86900; 86901; 86923; 87040; 87340; 90686; 91303; 93005; 93010; 94003; 94640; 94660; 94760; 94762; 96365-59; 96375-59; 97110; 97116; 97162; 97530; 99285-25; A9270; C1750; C1751; C1769; C1894; C9113; G0008; J0360; J0692; J0881; J1644; J1815; J1940; J2060; J2250; J2405; J3010; J3480; J7030; J7040; J7050; P9016

== ENCOUNTER 2021-03-01 20:02 | Emergency (ER) | payer OTHER ==
[~2021-03-01] VITALS: Ht 121.9 cm; Wt 54.4 kg
[~2021-03-01 20:02] MED LIST changes: +ANTIFUNGAL POWD71 GM TOP; +FERSU300 PO; +FURO80 PO; +HYDHCL25 PO; +MIRALAX17 GM PO
[2021-03-01 20:46] LABS: BASOPHILS ABSOLUTE AUTO 0.06 K/mm3 (0.00-0.23); BASOPHILS PERCENT AUTO 1 % (0-2); EOSINOPHILS ABSOLUTE AUTO 0.03 K/mm3 (0.00-0.68); EOSINOPHILS PERCENT AUTO 0 % (0-6); Hemoglobin 11.2 g/dL (11.5-16.0); IMMATURE GRAN ABSOLUTE AUTO 0.15 K/mm3 (0.00-0.10); IMMATURE GRAN PERCENT AUTO 1 % (0-1); LYMPHOCYTES ABSOLUTE AUTO 1.33 K/mm3 (0.84-5.20); LYMPHOCYTES PERCENT AUTO 11 % (21-46); MONOCYTES ABSOLUTE AUTO 2.08 K/mm3 (0.16-1.47); MONOCYTES PERCENT AUTO 17 % (4-13); Mean Corpuscular HGB 29.7 pg (26.0-34.0); Mean Corpuscular Volume 93 fL (80-100); Mean Platelet Volume 10.1 fL (9.1-12.4); NEUTROPHILS ABSOLUTE AUTO 8.89 K/mm3 (1.96-9.15); NEUTROPHILS PERCENT AUTO 71 % (41-73); Platelet Count 303 K/mm3 (150-400); RDW Coefficient Variation 13.5 % (11.7-14.2); RDW Standard Deviation 45.9 fL (35.1-46.3); Red Blood Cell Count 3.77 M/mm3 (3.80-5.20); White Blood Cell Count 12.54 K/mm3 (4.00-11.30)
[2021-03-01 21:08] LABS: Alanine Aminotransfer (ALT/SGP 15 U/L (12-78); Albumin/Globulin Ratio 0.6 (0.8-1.8); Alk Phos 116 U/L (50-136); Anion Gap 8 mmol/L (6-16); Aspartate Aminotrans (AST/SGOT 15 U/L (12-37); Bilirubin, Total 0.3 mg/dL (0.1-1.0); Blood Urea Nitrogen 18 mg/dL (8-24); Bun/Creatinine Ratio 8.1 (12.0-20.0); CO2, Blood 32 mmol/L (21-32); Calcium, Blood 9.3 mg/dL (8.5-10.1); Chloride, Blood 92 mmol/L (98-108); Creatinine, Blood 2.22 mg/dL (0.40-1.00); Globulin, Blood 5.4 g/dL (2.2-4.0); Glomerular Filtration Rate 24 (60-); Glucose, Blood 63 mg/dL (70-99); Potassium, Blood 3.8 mmol/L (3.5-5.5); Sodium, Blood 132 mmol/L (136-145); Total Protein, Blood 8.4 g/dL (6.4-8.2); Troponin I <0.015 ng/mL (0.000-0.040)
== END 2021-03-02 00:21 | disposition home or self-care (01) ==
LOC: ER 20:02
PROVIDERS: Physician Assistant
DX: R07.89 Other chest pain (principal); I13.0 Hypertensive heart and chronic kidney disease with heart failure and stage 1 through stage 4 chronic kidney disease, or unspecified chronic kidney disease; E11.22 Type 2 diabetes mellitus with diabetic chronic kidney disease; N18.4 Chronic kidney disease, stage 4 (severe); I50.32 Chronic diastolic (congestive) heart failure; G47.33 Obstructive sleep apnea (adult) (pediatric); K21.9 Gastro-esophageal reflux disease without esophagitis; Z86.73 Personal history of transient ischemic attack (TIA), and cerebral infarction without residual deficits; J44.9 Chronic obstructive pulmonary disease, unspecified; F17.210 Nicotine dependence, cigarettes, uncomplicated; Z88.1 Allergy status to other antibiotic agents; Z88.2 Allergy status to sulfonamides; Z88.0 Allergy status to penicillin; Z79.4 Long term (current) use of insulin; Z79.82 Long term (current) use of aspirin; Z79.899 Other long term (current) drug therapy
CPT/HCPCS: 36415; 71046; 80053; 84484; 85025; 93005; 93010; 99284-25; A9270

== ENCOUNTER 2021-05-13 13:06 | Inpatient (IN) | payer OTHER ==
[~2021-05-13] VITALS: Ht 121.9 cm; Wt 62.2 kg
[2021-05-13 14:47] LABS: BASOPHILS ABSOLUTE AUTO 0.06 K/mm3 (0.00-0.23); BASOPHILS PERCENT AUTO 1 % (0-2); EOSINOPHILS ABSOLUTE AUTO 0.03 K/mm3 (0.00-0.68); EOSINOPHILS PERCENT AUTO 0 % (0-6); Hematocrit 36.4 % (33.0-51.0); Hemoglobin 11.3 g/dL (11.5-16.0); IMMATURE GRAN ABSOLUTE AUTO 0.04 K/mm3 (0.00-0.10); IMMATURE GRAN PERCENT AUTO 0 % (0-1); LYMPHOCYTES ABSOLUTE AUTO 0.48 K/mm3 (0.84-5.20); LYMPHOCYTES PERCENT AUTO 4 % (21-46); MONOCYTES ABSOLUTE AUTO 0.83 K/mm3 (0.16-1.47); MONOCYTES PERCENT AUTO 7 % (4-13); Mean Corpuscular HGB 31.1 pg (26.0-34.0); Mean Corpuscular Volume 100 fL (80-100); Mean Platelet Volume 10.7 fL (9.1-12.4); NEUTROPHILS ABSOLUTE AUTO 9.98 K/mm3 (1.96-9.15); NEUTROPHILS PERCENT AUTO 87 % (41-73); Platelet Count 314 K/mm3 (150-400); RDW Coefficient Variation 15.1 % (11.7-14.2); RDW Standard Deviation 56.2 fL (35.1-46.3); Red Blood Cell Count 3.63 M/mm3 (3.80-5.20); White Blood Cell Count 11.42 K/mm3 (4.00-11.30)
[2021-05-13 15:13] LABS: Albumin, Blood 2.9 g/dL (3.4-5.0); Albumin/Globulin Ratio 0.6 (0.8-1.8); Bilirubin, Total 0.5 mg/dL (0.1-1.0); Bun/Creatinine Ratio 11.5 (12.0-20.0); Calcium, Blood 9.4 mg/dL (8.5-10.1); Creatinine, Blood 6.08 mg/dL (0.40-1.00); Globulin, Blood 4.9 g/dL (2.2-4.0); Potassium, Blood 6.1 mmol/L (3.5-5.5); Total Protein, Blood 7.8 g/dL (6.4-8.2)
[2021-05-13 15:22] LABS: PCO2 Arterial 24.8 mmHg (35-45); PO2 Arterial 89.8 mmHg (80-100); pH Blood Arterial 7.36 (7.35-7.45)
[2021-05-13 17:12] LABS: Source, Urine Clean Catch
[2021-05-13 17:21] LABS: Appearance, Urine Clear (Clear); Bilirubin, Urine Neg (Neg); Blood, Urine 3+ (Neg); Glucose Qualitative, Urine 4+ (Neg); Ketones, Urine 3+ (Neg); Leukocyte Esterase, Urine Neg (Neg); Nitrite, Urine Neg (Neg); Protein, Urine 4+ (Neg); Specific Gravity, Urine 1.015 (1.003-1.022); Urobilinogen, Urine NORM (Normal)
[2021-05-13 17:27] LABS: Color, Urine Pale Yellow (P-Yellow)
[2021-05-13 17:29] LABS: Bacteria Few /hpf; Squamous Epithelial Cells Rare /hpf (Few)
[2021-05-13 17:30] LABS: White Blood Cells, Urine Rare /hpf (0-5)
--- NOTE | 2021-05-13 17:30 | NUR ---
ARRIVAL: Pt arrived on unit intubated. Left hand IV inadvertantly removed during transfer.
[2021-05-13 18:15] LABS: Glucose, Blood 993 mg/dL (70-99)
[2021-05-13 18:57] LABS: Influenza A, PCR NEGATIVE (NEGATIVE); Influenza B, PCR NEGATIVE (NEGATIVE); Resp Syncytial Virus, PCR NEGATIVE (NEGATIVE)
--- NOTE | 2021-05-13 19:30 | NUR ---
ASSUMED CARE: PT INTUBATED ON AC/VC FIO2 60% PEEP 10. LUNGS COARSE THROUGHOUT, RESP RATE 30S- OVERBREATHING VENT PROPFOL @ 15 MCG/KG/MIN, RASS -3; INSULIN @ 2 UNITS/HR PT'S BROTHER LATOYA @ BEDSIDE, APPROPRIATE, CONCERNED, CALM HEMODIALYSIS NURSE AT BEDSIDE FINISHING HD RUN THROUGH PT'S TUNNELED HD CATH SINUS TACHYCARDIA IN 130S, MAPS >65, BLE EDEMA, WEAK PEDAL PULSES, TEMP 100.[address], ON LOW INTERMITTENT SUCTION, + BOWEL SOUNDS HOLLINGSWORTH CATHETER IN PLACE, CLEAR YELLOW URINE DRAINING INTO BAG BILAT WRIST RESTRAINTS IN PLACE FOR ETT SAFETY W/O EVIDENCE OF INJURY REDNESS TO SKIN FOLDS THROUGHOUT
--- NOTE | 2021-05-13 19:46 | NUR ---
SHIFT SUMMARY: Pt arrived from ED at 1730. Vent settings at AC 60%. Pt was rolled, soiled linnens were removed, and she was cleaned. Excoriation was noted on the left upper leg in skin folds. Nicardapine stopped once dialysis was started. OG was placed and is draining brown fluid. Pt's brother is at bedside assisting with admission history. Pt's jewelrey was removed and placed in specemin cup with label in room. Her brother declined to take the jewelry with him. Clothing was cut in ED; no other belonging are present.
[2021-05-13 19:52] LABS: Glucose, Blood 701 mg/dL (70-99)
[2021-05-13 20:56] LABS: SARS-Cov-2 (COVID-19) PCR, MMC POSITIVE (NEGATIVE)
--- NOTE | 2021-05-13 21:55 | NUR ---
CALL TO MD CALL TO DR REED REGARDING HYPOTENSION AND FEVER. OBTAINED ORDERS. ICE PACKS APPLIED. FLUID BOLUS INFUSING.
[2021-05-13 22:20] LABS: Base Excess Venous 2.9 mmol/L; PCO2 Venous 34.6 mmHg (38-42); PO2 Venous 74.8 mmHg (38-42); pH Blood Venous 7.49 (7.34-7.37)
[2021-05-13 22:58] LABS: Bun/Creatinine Ratio 10.4 (12.0-20.0); Calcium, Blood 8.3 mg/dL (8.5-10.1); Creatinine, Blood 3.95 mg/dL (0.40-1.00); Potassium, Blood 3.9 mmol/L (3.5-5.5)
[2021-05-14 04:02] LABS: Hematocrit 33.2 % (33.0-51.0); Hemoglobin 10.5 g/dL (11.5-16.0); Mean Corpuscular HGB 30.6 pg (26.0-34.0); Mean Corpuscular HGB Conc 31.6 g/dL (31.5-36.5); Mean Corpuscular Volume 97 fL (80-100); Mean Platelet Volume 10.8 fL (9.1-12.4); Platelet Count 286 K/mm3 (150-400); RDW Coefficient Variation 15.3 % (11.7-14.2); RDW Standard Deviation 54.5 fL (35.1-46.3); Red Blood Cell Count 3.43 M/mm3 (3.80-5.20); White Blood Cell Count 16.53 K/mm3 (4.00-11.30)
[2021-05-14 04:28] LABS: Albumin, Blood 2.7 g/dL (3.4-5.0); Anion Gap 13 mmol/L (6-16); Blood Urea Nitrogen 44 mg/dL (8-24); Bun/Creatinine Ratio 10.1 (12.0-20.0); CO2, Blood 25 mmol/L (21-32); Calcium, Blood 8.9 mg/dL (8.5-10.1); Chloride, Blood 97 mmol/L (98-108); Creatinine, Blood 4.35 mg/dL (0.40-1.00); Glomerular Filtration Rate 11 (60-); Glucose, Blood 274 mg/dL (70-99); Magnesium, Blood 2.1 mg/dL (1.6-2.4); Phosphorus, Blood 5.3 mg/dL (2.5-4.9); Potassium, Blood 4.3 mmol/L (3.5-5.5); Sodium, Blood 135 mmol/L (136-145); Vancomycin, Random 22.5 ug/mL
--- NOTE | 2021-05-14 05:51 | NUR ---
SHIFT SUMMARY: TOWARD END OF HEMODIALYSIS RUN, PT BECAME HYPOTENSIVE W/ MAPS LOW 34. MD ORDERED 1L LR BOLUS. THIS, IN ADDITION TO RETURN OF BLOOD W/ END OF HD RUN RAISED BPS TO MAP >65 FOR APPROX 1 HR BEFORE MAPS DECREASED AGAIN TO 55. NOREPINEPHERINE STARTED AT 2300 @ 2 MCG/ML; OFF AT 0100 D/T DBP >100. PT DIAPHORETIC & FEBRILE >100F THROUGHOUT THE NIGHT. TYLENOL GIVEN Q4H FOR FEVER. INTERMITTENTLY AGITATED- AGITATION & BLOOD PRESSURE IMPROVED WITH FENTANYL PUSHES Q1-2H. BROTHER AT BEDSIDE MENTIONS PT TAKES METHADONE OUTPATIENT, AND IS UNSURE IF PT HAS BEEN USING ANY RECREATIONAL DRUGS. INSULIN GTT OFF AT 0200 PER MD WHEN CBG <250. LANTUS 25U GIVEN WHEN INSULIN GTT TURNED OFF. CBGS Q2H FOLLOWING, W/ SLIDING SCALE INSULIN ORDERS IN PLACE. PT MAKING URINE OVERNIGHT THROUGH HOLLINGSWORTH CATHETER. NO BM OVERNIGHT. NPO W/ OG ATTACHED TO LOW INTERMITTENT SUCTION. SKIN FOLDS RED & APPEAR TO HAVE YEAST- MICONAZOLE POWDER ORDERED. ATTEMPTED POWER GLIDE PLACEMENT- UNSUCCESSFUL D/T PT'S ANATOMY. PT REMAINS INTUBATED ON AC/VC, FIO2 DECREASED TO 40%, PEEP 10, VT 325. PT CONTINUES TO OVERBREATHE VENTILATOR SETTINGS. LUNGS REMAIN COARSE TO AUSCULTATION. SMALL AMOUNT OF THICK WHITE SPUTUM SUCTIONED FROM ETT OVERNIGHT.
--- NOTE | 2021-05-14 10:08 | NUR ---
ASSUMED CARE OF PT @0700. PT INTUBATED AND SEDATED. VENT SETTINGS AC 14/325/10/40% AT START OF SHIFT, SWITCHED TO SPON 5/5, 30% PT TOLERATING SPONTANEOUS WELL. PROPOFOL @ 60 MCG/KG/MIN. PLAN TO EXTUBATE THIS MORNING. WILL SWITCH TO PRECEDEX AND START METHADONE PER TUBE PRIOR TO EXTUBATION. OGT CLAMPED. BILATERAL SOFT WRIST RESTRAINTS IN PLACE. NO PLAN FOR DIALYSIS TODAY. SEE FULL SHIFT ASSESSMENT.
--- NOTE | 2021-05-14 11:40 | NUR ---
PT'S BROTHER AT BEDSIDE. UPDATED WITH PLAN TO EXTUBATE TOMORROW MORNING. DENIES ANY FURTHER QUESTIONS. NICARDAPINE GTT STARTED D/T PERSISTENT HYPERTENSION. PRECEDEX @ 0.7 MCG/KG/HR, PROPOFOL @ 50 MCG/KG/MIN.
--- NOTE | 2021-05-14 12:03 | NUR ---
Spiritual Care Visit Responding to a spiritual care request by the pt. Pt. is unsreposive, in bed, and on a ventilator. Gave a pastoral blessing over the pt. Will monitor as family considers other comfort care measures
--- NOTE | 2021-05-14 18:41 | NUR ---
SHIFT SUMMARY PT REMAINS INTUBATED AND SEDATED. PT ON SPONTANEOUS SETTINGS FOR MOST OF SHIFT, SWITCHED BACK TO AC D/T APNEIC PERIODS. VENT SETTINGS AC 14/325/5/30% WITH SATS LOW TO MID 90%. PT CONTINUES TO HAVE MODERATE TO SEVERE THICK SECRETIONS FROM ETT, SPUTUM CULTURE SENT. PROPOFOL @ 40 MCG/KG/MIN, PRECEDEX 0.7 MCG/KG/HR. NICARDAPINE GTT DECREASED TO 50 ML/HR TO MAINTAIN SBP 150'S. PT HAD EPISODES OF HYPOGLYCEMIA PT GIVEN D50 AND TUBE FEEDING STARTED. NURSE NOTIFY TO CHECK GLUCOSE Q1 UNTIL STABLE. SEE PREVIOUS NOTES FROM THIS SHIFT. WILL REPORT TO ONCOMING NURSE.
--- NOTE | 2021-05-14 20:37 | NUR ---
ASSUMED CARE: PT INTUBATED; AC/VC, PEEP 5, FIO2 30%, MOSTLY COMPLIANT WITH VENT W/ RR 14-20. LUNGS COARSE, MODERATE AMT THICK WHITE SPUTUM SUCTIONED FROM ETT W/ SATS IMPROVING FROM 88% TO 96% SEDATED: PROPOFOL @ 40 MCG/KG/MIN, PRECEDEX @ 0.7 MCG/KG/HR. RASS -4, WITHDRAWS FROM PAIN, + GAG/COUGH. PERRLA. NSR 60S, ON NICARDIPINE GTT @ 5 (DECREASED TO 2.5) W/ SBPS IN 140S. PULSES +2 RADIAL, +1 PT & DP. AFEBRILE TUBE FEED VIA OG @ 25ML/HR W/ 30ML FREE WATER FLUSH Q4H. HYPOACTIVE BOWEL SOUNDS. CBGS RECOVERED FROM EARLIER HYPOGLYCEMIA EPISODE- NOW >100. DISCUSSED W/ MD TO GIVE ORDERED LANTUS TONIGHT 10U & RECHECK IN [address], CLEAR YELLOW URINE DRAINING FREELY. REDNESS IN SKIN FOLDS- MICONAZOLE POWDER REAPPLIED. PT WARM & DRY. MILD RED AREA ON LIP- WILL REPOSITION ETT Q2H. Q2H TURNS FOR REDNESS ON COCCYX- FOAM DRESSING IN PLACE.
[2021-05-15 03:41] LABS: Hemoglobin 10.1 g/dL (11.5-16.0); Mean Corpuscular HGB 31.3 pg (26.0-34.0); Mean Corpuscular HGB Conc 31.6 g/dL (31.5-36.5); Mean Corpuscular Volume 99 fL (80-100); Mean Platelet Volume 10.6 fL (9.1-12.4); Platelet Count 253 K/mm3 (150-400); RDW Coefficient Variation 15.1 % (11.7-14.2); RDW Standard Deviation 55.2 fL (35.1-46.3); Red Blood Cell Count 3.23 M/mm3 (3.80-5.20)
[2021-05-15 04:04] LABS: Bun/Creatinine Ratio 10.3 (12.0-20.0); Calcium, Blood 8.8 mg/dL (8.5-10.1); Creatinine, Blood 5.52 mg/dL (0.40-1.00); Potassium, Blood 4.3 mmol/L (3.5-5.5)
--- NOTE | 2021-05-15 06:12 | NUR ---
SHIFT SUMMARY: PT INTUBATED; AC/VC 40% FIO2 5 PEEP; MOSTLY COMPLIANT WITH VENT SEDATED: PROPOFOL @ 40, PRECEDEX @ 0.7 NICARDIPINE GTT OFF AT 2109; SBPS <150 OVERNIGHT AFEBRILE, NSR W/ OCC PVCS NO BM OVERNIGHT BROTHER LATOYA CALLED W/ FAMILY UPDATE: PT'S WAS ARRESTED 05/14, PT'S 13YO DAUGHTER IN LATOYA'S CUSTODY. LATOYA CONCERNED THAT PT HAS BEEN USING RECREATIONAL DRUGS. PT'S HAD PREVIOUSLY TOLD PT'S BROTHER THAT PRIOR TO ADMISSION PT WOULD ALTERNATE BETWEEN BEING EXTREMELY VIOLENT & AGITATED AND "PASSING OUT".
--- NOTE | 2021-05-15 07:08 | NUR ---
Received report from Vida BERRY. Patient is intubated and sedated. She has 7.5 ET and 24cm at teeth with vent settings of 14/325/40/5 and sats 93%. Patient withdrawls from pain and nocious stimuli. She has 18ga IV in LAC and is infusing Propofol at 40 mcg/kg/min, and Precedex at 0.7 mac/kg/hr. She also has 20ga IV in LAC flushed and SL. She has OG in place and is infusing Nephro 1.8 at 25ml/hr and 30 mlwater flush q4. She has 16Fr temp morrison draining to gravity scant amounts of urine and temp of 98.9. Patient SR 60's and and systolics 130's. Patient in bilateral soft wrist restraints for line and tube safety. Plan for Dialysis and possible extubation today.
--- NOTE | 2021-05-15 10:59 | NUR ---
SPiritual Care Visit. Prior to scheduled extubation, prayed an EOL blessing over the pt. Pt. is unresponsive. Will stay in ICU through extubation.
--- NOTE | 2021-05-15 11:05 | NUR ---
Patient is going to be extubated shortly We are going to place on Spon. Mode. VSS. Tolerated meds well. repsositioned.
--- NOTE | 2021-05-15 11:08 | NUR ---
Patient extubated at 1020 and placed on 4L O2 via NC. Propofol was off after 30 minutes of spon. mode. On 4L O2 she sats low 90%'s. She remains very drowsy and non verbal, but will look at direction of verbal stimuli. Precedex remains at 0.07 mcg/kg/hr. OG and tF stopped pre extubation.
--- NOTE | 2021-05-15 13:30 | NUR ---
Patient's family by and she is still very lethargic, but as time goes by awakening a little. They started Dialysis at 1300. Another family friend at bedside. VSS. She remains on 4L O2 and sats 97%. Placed PowerGlide SOCORRO 18/8 and infusing Precedex at 0.7 mcgh/kg/hr.
--- NOTE | 2021-05-15 16:20 | NUR ---
Patient continues ot rest while having dialysis. analytical tech stated patient awoke and was able to have brief conversation prior to falling back to sleep. VSS. Precedex remains at 0.7 mcg/kg/hr and is adequate sedation. Brother in room at bedside
--- NOTE | 2021-05-15 16:24 | NUR ---
Dialysis done and she pulled 2 L. I started D5 at 50 ml/hr since TF has been shut off, and reduced lantus.
[2021-05-15 16:35] LABS: Vancomycin, Random 6.8 ug/mL
--- NOTE | 2021-05-15 17:52 | NUR ---
Patient's family has been in room and she was more interactive. She is on 2L O2 while sleeping and sats 95%. The Precedex was reduced to 0.4 mcg/kg/hr andD5 at 50 ml/hr. Mitchell has 200 ml yellow urine out and 185 IV in.
--- NOTE | 2021-05-16 06:25 | NUR ---
SHIFT SUMMARY: PT AOX2 (SELF AND PLACE), ABLE TO FOLLOW COMMANDS AND MOVE ALL EXT EQUALLY. PRECEDEX WAS TURNED OFF AT 0000. PT STARTING TO BECOME MORE AGITATED THIS MORNING BUT IS REDIRECTABLE WITH REPEATED EDUCATION. ON ROOM AIR AND TOLERATING FINE. OCCASIONAL NONPRODUCTIVE COUGH. PT HYPERTENSIVE DESPITE LABETOLOL, WILL CONSIDER NICARDIPINE. D5 WAS ALSO STOPPED AT 2100 DUE TO HIGH BLOOD SUGAR, NOTIFIED AND STARTED ON MEDIUM SCALE INSULIN LISPRO. Q6 CBG. AM DOSE OF INSULIN HELD SINCE PT STILL NPO AND GLUCOSE IS WAS DOWN TO THE 180's. HOLLINGSWORTH CATH REMAINS IN PLACE, NO BM. PT REFUSED 2QH TURNS, SKIN INTEGRITY REMAINS INTACT. DOES HAVE RASH/EXCORIATION ON FOLDS, POWDER PLACED.
[2021-05-16 06:41] LABS: Hematocrit 35.2 % (33.0-51.0); Hemoglobin 11.2 g/dL (11.5-16.0)
[2021-05-16 07:06] LABS: Albumin, Blood 2.4 g/dL (3.4-5.0); Anion Gap 14 mmol/L (6-16); Blood Urea Nitrogen 47 mg/dL (8-24); Bun/Creatinine Ratio 11.1 (12.0-20.0); CO2, Blood 25 mmol/L (21-32); Calcium, Blood 8.7 mg/dL (8.5-10.1); Chloride, Blood 97 mmol/L (98-108); Creatinine, Blood 4.23 mg/dL (0.40-1.00); Glomerular Filtration Rate 11 (60-); Glucose, Blood 180 mg/dL (70-99); Magnesium, Blood 2.3 mg/dL (1.6-2.4); Sodium, Blood 136 mmol/L (136-145)
[2021-05-16 07:07] LABS: Phosphorus, Blood 8.7 mg/dL (2.5-4.9)
--- NOTE | 2021-05-16 07:56 | NUR ---
Assumed care of pt at 0700. Report received from from Janneth BERRY. Pt alert. Oriented to self. Sometimes knows current location, sometimes does not. Pt is very forgetful. Unable to recall education provided one minute prior. Pt found with tegaderm ripped off dialysis catheter. States "it feels like there is a tube in my chest". Education provided, pt surprised that she has a dialysis catheter in chest and surprised that its supposed to be there. Often asks repetitive questions and forgets answers. In one instance, pt became disoriented and accused this RN of stealing $12 nail swedish from [employer]. Reoriented patient, pt did not believe this RN even after showing her name tag. Pt on room air. SR per monitor. Bed in lowest position. Call light in reach.
--- NOTE | 2021-05-16 08:47 | NUR ---
Dr Luna in to see patient. Discussed that pt has been hypertensive. Provider placed orders for catapres and norvasc. First dose given. Breakfast held as pt becomes nauseous with any PO intake.
--- NOTE | 2021-05-16 10:00 | NUR ---
Dr No in to see patient. Provider stated pt can be medical floor status with telemetry. Discussed BP and that pt got new catapres and norvasc today. Provider will review and place new orders.
--- NOTE | 2021-05-16 11:28 | NUR ---
Pt again found with tegaderm removed from dialysis catheter. Catheter intact. Assessed with charge nurse. Dialysis nurse notified, will come by later to assess. Site cleaned with chlorhexidine and dressed with tegaderm CHG. Placed in restraints to ensure safety. 17 cm measured from insertion site at skin to end of catheter.
--- NOTE | 2021-05-16 12:10 | NUR ---
Spiritual Care visit Pt. is awake and in bed. Pt. welcomes my visit. Pt. is alert and responsive. Pt. is initially cautious, but I eventually establish rapport with pt. Pt. displays evidence of increased peace and comfort through our conversation. Pt. verbalized part of her diagnosis. Prayed with pt. Pt. displayed evidence of reduced stress and increased trust. Pt. verbalized gratitude for the spiritual care visit.
--- NOTE | 2021-05-16 15:55 | NUR ---
Pt transferred to room 325 via bed accompanied by this RN. Pt educated on transfer. Chart, medications, and belongings transferred with patient. Report given to Brandee BERRY.
--- NOTE | 2021-05-16 16:00 | NUR ---
PATIENT TRANSFERED FROM ICU 11 TO ROOM 325. REPORT RECEIVED FROM KRISTI VARGHESE. PATIENT IS A/O TO SELF AND FAMILY. WRIST RESTAINTS IN PLACE TO PROTECT LINES. HOLLINGSWORTH TO GRAVITY DRAINING CLEAR/YELLOW URINE. PERM CATH TO R CHEST WALL, DRESSING INTACT. SR ON TELE AT 77. B/P ELEVATED TO DAY, ORAL ANTIHYPERTENSIVE MEDS STARTED. REDNESS TO GROIN, NYSTATIN POWDER USED TO TREAT. PATIENT DORWSY, CALM AND COOPERATIVE. ORIENTED TO ROOM AND USE OF CALL LIGHT.
--- NOTE | 2021-05-17 02:26 | NUR ---
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
[2021-05-17 07:33] LABS: Hematocrit 33.7 % (33.0-51.0); Hemoglobin 10.6 g/dL (11.5-16.0)
[2021-05-17 07:47] LABS: Albumin, Blood 2.3 g/dL (3.4-5.0); Anion Gap 19 mmol/L (6-16); Blood Urea Nitrogen 68 mg/dL (8-24); Bun/Creatinine Ratio 12.2 (12.0-20.0); CO2, Blood 18 mmol/L (21-32); Calcium, Blood 8.5 mg/dL (8.5-10.1); Chloride, Blood 99 mmol/L (98-108); Creatinine, Blood 5.58 mg/dL (0.40-1.00); Glomerular Filtration Rate 8 (60-); Glucose, Blood 284 mg/dL (70-99); Magnesium, Blood 2.5 mg/dL (1.6-2.4); Potassium, Blood 3.9 mmol/L (3.5-5.5); Sodium, Blood 136 mmol/L (136-145)
[2021-05-17 08:13] LABS: Phosphorus, Blood 9.5 mg/dL (2.5-4.9)
--- NOTE | 2021-05-17 09:24 | NUR ---
0900 DIALYSIS BEING INITIATED AT BEDSIDE
--- NOTE | 2021-05-17 09:27 | NUR ---
0745 HEMODIALYSIS CATHETER PRESENT TO RIGHT UPPER CHEST. NO REDNESS OR SWELLING, DRESSING INTACT
--- NOTE | 2021-05-17 12:43 | NUR ---
SPOKE WITH DAVID EMERGENCY ROOM CLERK. PER DAVID PT WITH FREQUENT ATTEMPTS TO PULL ON DIALYSIS CATHETER DURING DIALYSIS AND PT STATED THAT SHE DID NOT NEED CATHETER
--- NOTE | 2021-05-17 13:23 | NUR ---
PATIENT AGITATED, YELLING STATES SHE WANTS HER CALLED AND THAT HE WILL TAKE HER TO ROOM AND THAT NEEDS TO GET OUT OF HERE. UNABLE TO CALM PATIENT OR ORIENT TO SURROUNDINGS. PT TRANSFERRED VIA BED TO ROOM 344 FOR [facility] OBSERVATION FOR PATIENT SAFETY
--- NOTE | 2021-05-17 18:27 | NUR ---
SHIFT SUMMARY PATIENT CURRENTLY SITTING UP IN BED EATING. PATEINT TRANSFERRED FROM [facility] TODAY FOR [facility] MONITORING FOR PATIENT'S SAFETY. PATIENT RECEIVED DIALYSIS PRIOR TO BEING TRANSFERRED AND WAS ATTEMPTING TO PULL OUT DIALYSIS CATHETER. UPON ARRIVAL PATIENT WAS AGITATED AND YELLING, AND REFUSING TO COOPERATE. PATIENT PULLED HOLLINGSWORTH CATHETER OUT THIS SHIFT. T/O SHIFT PATIENT BECAME MORE CALM AND COOPERATIVE BUT CONTINUALLY CONFUSED. WRIST RESTRAINTS TAKEN OFF AROUND 1700. PATIENT IS CONFUSED, STATING THAT SHE IS IN A MOTEL AND IS HAVING HALLUCINATIONS OF HER DOG AND KIDS. PATIENT HYPERTENSIVE AND MEDICATED PER MAY. BED IN LOW POSITION WITH BED ALARM ON. WILL CONTINUE TO MONITOR.
[2021-05-18 05:06] LABS: Hematocrit 38.1 % (33.0-51.0); Hemoglobin 12.2 g/dL (11.5-16.0)
[2021-05-18 05:27] LABS: Magnesium, Blood 2.3 mg/dL (1.6-2.4)
[2021-05-18 05:39] LABS: Albumin, Blood 2.6 g/dL (3.4-5.0); Anion Gap 13 mmol/L (6-16); Blood Urea Nitrogen 45 mg/dL (8-24); Bun/Creatinine Ratio 10.7 (12.0-20.0); CO2, Blood 25 mmol/L (21-32); Chloride, Blood 100 mmol/L (98-108); Creatinine, Blood 4.19 mg/dL (0.40-1.00); Glomerular Filtration Rate 11 (60-); Glucose, Blood 35 mg/dL (70-99); Potassium, Blood 2.9 mmol/L (3.5-5.5); Sodium, Blood 138 mmol/L (136-145)
--- NOTE | 2021-05-18 07:25 | NUR ---
SHIFT SUMMARY PATIENT ALERT AND ORIENTED X2. PATIENT WAS EXTREMELY AGITATED AND HALLUCINATED ALL NIGHT. SHE GOT HERSELF OUT OF BED TWICE WITHIND ABOUT A 10 MINUTE TIME SPAN AND SHE IS A HIGH FALL RISK THE PATIENT WAS PLACED IN A LINDA VEST, ORDER OBTAINED FROM DR Theron SNYDER AT 2253. SHE STARTED PICKING AT THE TELEMETRY LEADS AND THE DRESSING OF HER DIALYSIS PORT AND DR TERRY ORDERED WRIST RESTRAINTS TO BE ADDED TO THE LINDA AT 0052. AROUND 0445 THIS RN NOTED THAT THE PATIENT'S O2 SATS WERE STARTING TO GO DOWN ON THE CONTINUOUS MONITOR. THIS RN WENT TO CHECK ON THE PATIENT AND NOTICED THAT SHE WAS DRENCHED IN SWEAT AND THAT SHE WAS MINIMALLY RESPONSIVE. OPENED EYES SPONTANEOUSLY BUT WAS UNABLE TO VERBALLY RESPOND. PLACED PATIENT S CPAP ON, VITALS AND CBG OBTAINED. CBG WAS 26 AND A RAPID RESPONSE WAS CALLED AT 0503. PATIENT GIVEN ONE AMP OF D50 AND THEN PROVIDED WITH A TURKEY SANDWICH AND YOGURT WHEN SHE BECAME ALERT ENOUGH TO EAT. RECHECKED BLOOD SUGAR AT 0536. DR TERRY MADE AWARE OF THE SITUATION.
--- NOTE | 2021-05-18 13:47 | NUR ---
PATIENT IS CONFUSED, HALLUCINATING AND HAS ALTERED LEVEL OF CONSCIOUSNESS SHE IS REPORTING THAT HER DAUGHTER IS CRYING, AND IS YELLING OUT "JUSTICE ARE YOU OKAY" PATIENT IS SEEING HER WHO IS NOT HERE AND STATES "YOUR A CHEATER", TALKING TO HER . SHE SEES A REFIRDGERATOR IN THE CORNER OF THE ROOM AND SAYS THAT SHE JUST BOUGHT IT. DURING THE TIME FRAME OF THE PATIENT HEARING HER DAUGHTER CRY, HER HEART RATE JUMPED INTO THE 140'S. IT APPEARS THAT THE METHADONE 60 MG THAT WAS GIVEN IN THE MORNING, INCREASED THE ALTERED LOC AND BREAK IN REALITY THAT THE PATIENT IS EXPERIENCING. PATIENTS HEART RATE HAS DECREASED INTO THE 114.
--- NOTE | 2021-05-18 17:32 | NUR ---
PATIENT HAS BEEN DISORIENTATED THIS SHIFT. SHE APPEARS TO BE HAVING BOTH VISUAL, AUDIO AND TACTILE HALLUCINATIONS. SHE FEELS LIKE SHE IS FALLING, SHE HEARS HER DAUGHTER CRYING AND SHE SEES CAR ACCIDENTS, REFRIDERATORS IN THE CORNER AND FAMILY. THIS AM, WITH MORNING MEDICATIONS, HER CATAPRES WAS DECREASED AND HER LISINOPRIL WAS HELD DUE TO THE READINGS AT THAT TIME. CHANGES HAVE ALSO BEEN MADE TO THE [facility] METHADONE DOSE, WHICH WILL BE DECREASED TO 40 MG FOR TOMORROW'S MORNING DOSE, STAFF NOTICED WHAT APPEARS TO BE A DIRECT COORELATION BETWEEN THE OPIATE AND HALLUCINATIONS. PATIENT HEART RATE WAS RUNNING IN THE 140'S SHE WAS HOLLERING OUT THAT HER DAUGHTER WAS CRYING (HALLUCINATION). PATIENT BECAME DISTRAUGHT TO THE POINT OF CALLING THE DOCTOR FOR A ONE TIME HALDOL IV ORDER. 2.5MG HALDOL WAS GIVEN IV THIS AFTERNOON, AND SHE HAS BEEN MORE QUIET, ABLE TO TRACK SOME CONVERSATION AND CONFORTABLE SINCE. HER BLOOD SUGAR WAS 44 AT 1655, SHE WAS ALERT AND COHERENT, ABLE EAT AND DRINK SO 6 OZ OJ, WITH 5 PACKETS SUGAR AND TWO SMALL PACKS OF PEANUT BUTTER WERE OFFERED. 15 MINUTES LATER SUGAR WAS UP TO 90 - DINNER TRAYS THEN ARRIVED. ANOTHER EARLIER NOTE REGARDING THE PATIENTS CONDITION IS ALSO AVAILABLE IN NURSE NOTES. WE WILL CONTINUE TO MONITOR.
--- NOTE | 2021-05-18 23:01 | NUR ---
PHYSICIAN COMMUNICATION CONTACTED DR SHEIKH AT 2039 TO NOTIFY HER THAT THE AUDITOR REPORTED THAT THE PATIENT APPEARED TO BE HAVING SIGNIFICANT ST ELEVATION IN HER V LEAD. ALSO NOTIFIED HER THAT THE PATIENT'S BP WAS 186/79 AND HEART RATE WAS SUSTAINING NEAR 120. DR SHEIKH ORDERED AN EKG AND FOR THE PATIENT'S POTASSIUM AND TROPONIN TO BE CHECKED. SHE ALSO WANTED THE PATIENT TO HAVE A ONE TIME DOSE OF 20 MG PO LISINOPRIL SINCE SHE MISSED IT THIS MORNING AND ADDED METOPROLOL 25 MG PO Q6 PRN FOR HEART RATE OVER 100 TO BE HOLD FOR SBP LESS THAN 100. FIRST DOSE TO BE GIVEN RIGHT AWAY. VERIFIED WITH DR SHEIKH THAT SHE JUST WANTED A SINGLE TROPONIN ORDERED INSTEAD OF SERIAL CONTACED DR SHEIKH AGAIN AROUND 2154 TO NOTIFY HER THAT THE PATIENT'S TROPONIN WAS 156 AND THAT HER EKG HAD NO CHANGES FROM PRIOR EKG. NO NEW ORDERS REGARDING THIS INFORMATION. ALSO NOTIFIED HER THAT THE AUDITOR REPORTED THE PATIENT'S HEART RATE INCREASING INTO THE 140'S. DR SHEIKH SAID TO GIVE AN ADDITIONAL 25 MG DOSE OF ORAL METOPROLOL. WILL CONTINUE TO MONITOR.
[2021-05-19 05:00] LABS: Hematocrit 36.1 % (33.0-51.0); Hemoglobin 11.6 g/dL (11.5-16.0)
[2021-05-19 05:42] LABS: Albumin, Blood 2.6 g/dL (3.4-5.0); Anion Gap 14 mmol/L (6-16); Blood Urea Nitrogen 60 mg/dL (8-24); CO2, Blood 23 mmol/L (21-32); Calcium, Blood 8.9 mg/dL (8.5-10.1); Chloride, Blood 100 mmol/L (98-108); Creatinine, Blood 5.44 mg/dL (0.40-1.00); Glomerular Filtration Rate 8 (60-); Glucose, Blood 311 mg/dL (70-99); Magnesium, Blood 2.5 mg/dL (1.6-2.4); Phosphorus, Blood 7.8 mg/dL (2.5-4.9); Potassium, Blood 3.8 mmol/L (3.5-5.5); Sodium, Blood 137 mmol/L (136-145)
--- NOTE | 2021-05-19 06:21 | NUR ---
SHIFT SUMMARY PATIENT ALERT AND ORIENTED X2. EXPERIENCING AUDITORY AND VISUAL HALLUCINATIONS. MEDICATED PER EMAR FOR TACHYCARDIA AND HYPERTENSION. CONTINUES IN RESTRAINTS. BED IN LOWEST POSITION WITH WHEELS LOCKED AND ALARM ON. CALL LIGHT WITHIN REACH. REPORT GIVEN TO ONCOMING RN.
--- NOTE | 2021-05-19 15:08 | NUR ---
EXECUTIVE SALES MANAGER ADVISED NURSE THAT PATIENT PRESENTS SOME ST ABNORMALITIES, DR. EASLEY MADE AWARE THAT PATIENT HAD ST ABNORMALITIES PER EXECUTIVE SALES MANAGER. DR. EASLEY ADVISED NURSE THAT PATIENT HAD A RECENT EKG AND HE ASSESS PATIENT A FEW MINUTES AGO,NO NEW ORDER RECIEVED. PATIENT DENIES CHEST PAIN. NO ACUTE DISTRESS NOTED. WILL CONTINUE TO MONITOR.
--- NOTE | 2021-05-19 17:53 | NUR ---
PATIENT IS AWAKE,ALERT AND ORIENTED TO SELF. PATIENT IS ACTIVELY HALLUCINATING. DENIES PAIN. STEAM DRIER TENDER REPORTED ABNORMALITIES ON TELE, DR. EASLEY ORDER A EKG AND TROPONIN. PATIENT DENIES CHEST PAIN. MD ALSO MADE AWRE OF PATIENT BLOOD SUGAR OF 321. PATIENT UPDATED ON PLAN OF CARE.
[2021-05-20 09:50] LABS: Hematocrit 38.5 % (33.0-51.0); Hemoglobin 11.8 g/dL (11.5-16.0)
--- NOTE | 2021-05-20 09:52 | NUR ---
PTS BROTHER LATOYA CALLED HAS CONCERNS/QUESTIONS ABOUT DISCHARGE PLANNING AND PTS CURRENT TREATMENTS AND REQUESTING TO TALK WITH THE DR. CALLED DR EASLEY, PROVIDED LATOYAS PHONE NUMBER. DR EASLEY STATED HE WOULD CALL HIM
[2021-05-20 10:18] LABS: Magnesium, Blood 2.3 mg/dL (1.6-2.4)
[2021-05-20 10:29] LABS: Albumin, Blood 2.2 g/dL (3.4-5.0); Anion Gap 12 mmol/L (6-16); Blood Urea Nitrogen 44 mg/dL (8-24); Bun/Creatinine Ratio 9.7 (12.0-20.0); CO2, Blood 25 mmol/L (21-32); Chloride, Blood 102 mmol/L (98-108); Creatinine, Blood 4.55 mg/dL (0.40-1.00); Glomerular Filtration Rate 10 (60-); Glucose, Blood 226 mg/dL (70-99); Phosphorus, Blood 8.1 mg/dL (2.5-4.9); Potassium, Blood 3.9 mmol/L (3.5-5.5); Sodium, Blood 139 mmol/L (136-145)
--- NOTE | 2021-05-20 10:37 | NUR ---
DR. EASLEY MADE AWARE OF PATIENT PHOSPHOROUS OF 8.1, NO NEW ORDER RECIEVED. CHARGE NURSE LORIN MADE AWARE OF CRITICAL VALUE.
--- NOTE | 2021-05-20 16:47 | NUR ---
PATIENT IS AWKE,ALERT AND DECREASE HALLUCINATATION NOTED TODAY. PATIENT DENIES PAIN. PATIENT ATE 50% OF LUNCH AND BREAKFAST. PATIENT IS COVID POSITIVE ON ROOM AIR OXGEN SATUARTION 100%. NO ACUTE DISTRESS NOTED.
--- NOTE | 2021-05-21 04:17 | NUR ---
Received patient alert and oriented. She had a lengthy conversation with a family member tonight with no sign of confusion or hallucination. She slept confortably. She is able to communicate her needs. Patient is still on restraints. Bed in low position, code light within reach. We will continue to monitor for any acute changes.
[2021-05-21] MEDS ORDERED: METO25ER PO (09:37)
[2021-05-21] MEDS ORDERED: ONDA4 PO (09:37)
[2021-05-21] MEDS ORDERED: ONDA4ODT MM (09:37)
[2021-05-21] MEDS ORDERED: CATAPRES0.1 MG PO (09:38)
[2021-05-21] MEDS ORDERED: Bumetanide2 MG PO (09:39)
[2021-05-21] MEDS ORDERED: Calcium Acetat667 MG PO (09:39)
--- NOTE | 2021-05-21 17:45 | NUR ---
PATIENT IS AWKE,ALERT AND ORIENTED TIMES THREE. DENIES PAIN. PATIENT RESTRAINT REMOVED.PATIENT IS COOPERATIVE AND FOLLOW DIRECTION WITHOUT DIFFICULTY. PATIENT HAD DIALYSIS TODAY. PER MD PATIENT WILL BE DISCHARGE TOMORROW.
[2021-05-22 05:34] LABS: Hematocrit 37.5 % (33.0-51.0); Hemoglobin 11.4 g/dL (11.5-16.0)
[2021-05-22 06:01] LABS: Magnesium, Blood 2.4 mg/dL (1.6-2.4)
[2021-05-22 06:05] LABS: Albumin, Blood 2.1 g/dL (3.4-5.0); Anion Gap 21 mmol/L (6-16); Blood Urea Nitrogen 54 mg/dL (8-24); Bun/Creatinine Ratio 10.8 (12.0-20.0); CO2, Blood 16 mmol/L (21-32); Calcium, Blood 9.2 mg/dL (8.5-10.1); Chloride, Blood 93 mmol/L (98-108); Glomerular Filtration Rate 9 (60-); Phosphorus, Blood 7.6 mg/dL (2.5-4.9); Potassium, Blood 4.8 mmol/L (3.5-5.5); Sodium, Blood 130 mmol/L (136-145)
[2021-05-22 06:36] LABS: Glucose, Blood 666 mg/dL (70-99)
--- NOTE | 2021-05-22 06:39 | NUR ---
Received patient AAOX3, in no acute distress. Per report, patient was to be discharge today. Labs done this morning, critical result for blood glucose 666. called and ordered to transfert patient to ICU.
--- NOTE | 2021-05-22 07:34 | NUR ---
REPORT CALLED TO BILL CHECKER AND PATIENT TRANSFERRED TO ICU 3. PT AWAKE AND ORIENTED UPON DEPARTURE.
--- NOTE | 2021-05-22 10:16 | NUR ---
PT TRANSFERRED TO ICU AROUND 0740. PT A&0X3. NASEOUS. 1 EPISODE OF VOMITTING. IMPROVED WITHOUT MEDICATION. ROOM AIR. INSULIN GTT STARTED AT 2 UNITS/HR. SEE SHIFT ASSESSMENT FOR DETAILS.
--- NOTE | 2021-05-22 10:37 | NUR ---
Spiritual Care Visit. Pt. is awake and in bed. Pt. welcomes my visit. Pt. is unsettled about the change in her blood sugar, as she had anticipated being discharged to home today. Listen empathetically and normalize the pt. experience. Develop rapport. Pt. displays evidence of reduced stress, and is more comfortable communicating. Prayed with Pt. Pt. verbalized gratitude for the spiritual care visit, and has no other concerns other than wanting to go home.
[2021-05-22 10:39] LABS: Glucose, Blood 825 mg/dL (70-99)
[2021-05-22 12:22] LABS: Bun/Creatinine Ratio 12.3 (12.0-20.0); Creatinine, Blood 5.27 mg/dL (0.40-1.00); Potassium, Blood 4.8 mmol/L (3.5-5.5)
[2021-05-22 14:14] LABS: Glucose, Blood 597 mg/dL (70-99)
[2021-05-22 16:13] LABS: Bun/Creatinine Ratio 12.2 (12.0-20.0); Creatinine, Blood 5.58 mg/dL (0.40-1.00); Potassium, Blood 4.4 mmol/L (3.5-5.5)
--- NOTE | 2021-05-22 17:43 | NUR ---
PT'S WALLET SENT HOME WITH SISTER IN LAW
--- NOTE | 2021-05-22 19:05 | NUR ---
A&OX3. ROOM AIR. SOME N/V THIS AM BUT IMPROVED WITH IMPROVEMENTS IN CBG. INSULIN GTT TODAY, SEE ICU FLOWSHEET FOR TITRATIONS. NOW ON 5 U/HR.
[2021-05-22 19:55] LABS: Bun/Creatinine Ratio 12.1 (12.0-20.0); Calcium, Blood 9.2 mg/dL (8.5-10.1); Creatinine, Blood 5.77 mg/dL (0.40-1.00); Potassium, Blood 4.4 mmol/L (3.5-5.5)
[2021-05-23 03:46] LABS: BASOPHILS ABSOLUTE AUTO 0.09 K/mm3 (0.00-0.23); BASOPHILS PERCENT AUTO 1 % (0-2); EOSINOPHILS ABSOLUTE AUTO 0.08 K/mm3 (0.00-0.68); EOSINOPHILS PERCENT AUTO 1 % (0-6); Hematocrit 33.4 % (33.0-51.0); Hemoglobin 10.6 g/dL (11.5-16.0); IMMATURE GRAN ABSOLUTE AUTO 0.32 K/mm3 (0.00-0.10); IMMATURE GRAN PERCENT AUTO 2 % (0-1); LYMPHOCYTES ABSOLUTE AUTO 1.53 K/mm3 (0.84-5.20); LYMPHOCYTES PERCENT AUTO 9 % (21-46); MONOCYTES ABSOLUTE AUTO 1.91 K/mm3 (0.16-1.47); MONOCYTES PERCENT AUTO 11 % (4-13); Mean Corpuscular HGB 31.5 pg (26.0-34.0); Mean Corpuscular HGB Conc 31.7 g/dL (31.5-36.5); Mean Corpuscular Volume 99 fL (80-100); Mean Platelet Volume 10.5 fL (9.1-12.4); NEUTROPHILS ABSOLUTE AUTO 13.81 K/mm3 (1.96-9.15); NEUTROPHILS PERCENT AUTO 78 % (41-73); Platelet Count 578 K/mm3 (150-400); Red Blood Cell Count 3.36 M/mm3 (3.80-5.20); White Blood Cell Count 17.74 K/mm3 (4.00-11.30)
[2021-05-23 04:03] LABS: Albumin, Blood 2.1 g/dL (3.4-5.0); Anion Gap 18 mmol/L (6-16); Blood Urea Nitrogen 77 mg/dL (8-24); Bun/Creatinine Ratio 12.2 (12.0-20.0); CO2, Blood 19 mmol/L (21-32); Calcium, Blood 9.2 mg/dL (8.5-10.1); Chloride, Blood 96 mmol/L (98-108); Creatinine, Blood 6.32 mg/dL (0.40-1.00); Glomerular Filtration Rate 7 (60-); Glucose, Blood 319 mg/dL (70-99); Magnesium, Blood 2.5 mg/dL (1.6-2.4); Potassium, Blood 4.9 mmol/L (3.5-5.5); Sodium, Blood 133 mmol/L (136-145)
[2021-05-23 04:27] LABS: Phosphorus, Blood 9.8 mg/dL (2.5-4.9)
--- NOTE | 2021-05-23 05:19 | NUR ---
Gap closed and blood sugars corrected at start of shift. orders to DC insulin drip obtained. DC'd 1 hour after lantus insulin given per orders. rested through night. Had periods of apnea, placed on cpap. red blanchable area noted to left heel, very tender to touch. mepilex heel protecters placed, and elevated on pillows.
--- NOTE | 2021-05-23 09:40 | NUR ---
DIALYSIS IN ROOM NOW, MAKES NEEDS KNOWN, COMPLAINED OF HEART BURN, MEDICATED WITH TUMS, CALL LIGHT WITH IN REACH
--- NOTE | 2021-05-23 10:16 | NUR ---
DR FISHER ROUNDED, SS INCREASED TO MEDIUM, LANTUS 20 UNITS AT BEDTIME, DAILYSIS STILL INFUSING, CALL LIGHT WITH IN REACH
--- NOTE | 2021-05-23 18:56 | NUR ---
ALERT AND ORIENTED X4, MAKES NEEDS KNOWN, USES CALL LIGHT, MULTIPLE DEMANDING NEEDS, PLEASANT TO CARE, CHILD LIKE. COMPLAINS ABOUT 10/10 PAIN IN BACK AND LEGS, NO PRN PAIN MEDS PER DR WINTERS, SCHEDULED METHADONE GIVEN. LS CLEAR, DIM BASES, CPAP AT NIGHT, NO O2 WHEN AWAKE, 1L O2 WHEN RESTING. PER DR WINTERS AND INFECTION CONTROL ANNIE REICH PATIENT CAN COME OFF ISOLATION ON 06/03/21, THEY ARE NOT GOING TO RETEST BECAUSE SHE WILL BE POSITIVE, INCREASED SS TO MEDIUM FOR BS CONTROL, STARTED LANTUS NIGHTLY, WILL RELAY TO PM RN, WCTM
--- NOTE | 2021-05-23 21:41 | NUR ---
blood sugar 409, Dr Ramos notified. First dose of increased ordered lantus given so no new orders at this time.
--- NOTE | 2021-05-23 23:00 | NUR ---
Requests orange juice. Education done on not drinking juice when blood sugar is high. Offered other beverages not containing sugars and diet soda given.
--- NOTE | 2021-05-24 00:50 | NUR ---
requests blood sugar to be checked, states "feels low". blood sugar checked and advised of reading of 315
[2021-05-24 04:09] LABS: Bun/Creatinine Ratio 12.7 (12.0-20.0); Calcium, Blood 8.5 mg/dL (8.5-10.1); Creatinine, Blood 4.63 mg/dL (0.40-1.00); Potassium, Blood 3.9 mmol/L (3.5-5.5)
--- NOTE | 2021-05-24 05:49 | NUR ---
rested most of night without complaints. Wore cpap until 0500, denies needs at this time.
--- NOTE | 2021-05-24 10:00 | NUR ---
UPDATE: VIANEY MEI HOSPITALIST @ BEDSIDE FOR AM ROUNDS. PLAN TO TRANSFER TO MEDICAL ONCE ROOM AVAILABLE, INC INSULIN COVERAGE, & DC HOME TOMORROW. REVIEWED PT's DC PLAN W/ CASE MANAGEMENT, DISCUSSED CONCERNS FOR PT'S REPEATED REQUEST FOR "DILAUDID" & NOW REFUSING METHADONE. PT STS SHE WAS BEING TITRATED OFF BY HER MD BEFORE SHE WAS ADMITTED HERE. SHE DOES NOT WANT TO TAKE IT ANY MORE. STS IT DOES NOT HELP W/ HER PAIN.
--- NOTE | 2021-05-24 15:09 | NUR ---
UPDATE: PT HAS BEEN RESTING W/ EYES CLOSED FOR THE MAJORITY OF THE AFTERNOON. SHE AWAKES FOR A SHORT TIME TO MAKE A PHONE CALL & QUICKLY RETURNS TO SLEEPING. PT CALLS TO REQUEST "DILAUDID" FOR 10/10 HEAD & LEG PAIN. PT REMINDED HAS TYLENOL & METHADONE FOR PAIN MANAGEMENT; SHE CONTINUES TO REFUSE ORDERED PAIN MEDS. PT SITTING UP IN BED, TALKING ON THE PHONE & DRINKING DIET PEPSI, RR EVEN & UNLABORED. DR WINTERS UPDATED ABOVE, HE AGREES THAT ORDERED MEDS ARE STILL APPROPRIATE, NO NEW ORDERS GIVEN.
--- NOTE | 2021-05-24 18:35 | NUR ---
pt transferred to room 358. report given to nikhil fletcher
[2021-05-25 04:47] LABS: Hemoglobin 11.3 g/dL (11.5-16.0)
[2021-05-25 05:17] LABS: Albumin, Blood 2.1 g/dL (3.4-5.0); Anion Gap 13 mmol/L (6-16); Blood Urea Nitrogen 85 mg/dL (8-24); Bun/Creatinine Ratio 15.9 (12.0-20.0); CO2, Blood 24 mmol/L (21-32); Calcium, Blood 9.1 mg/dL (8.5-10.1); Chloride, Blood 96 mmol/L (98-108); Creatinine, Blood 5.34 mg/dL (0.40-1.00); Glomerular Filtration Rate 9 (60-); Glucose, Blood 187 mg/dL (70-99); Magnesium, Blood 2.8 mg/dL (1.6-2.4); Phosphorus, Blood 7.2 mg/dL (2.5-4.9); Potassium, Blood 4.2 mmol/L (3.5-5.5); Sodium, Blood 133 mmol/L (136-145)
--- NOTE | 2021-05-25 06:06 | NUR ---
SHIFT SUMMARY Pt alert, oriented x 4, pt reports generalized chronic pain but refuses tylenol and methadone at this time. Repositioned for comfort and pt reported some relief. Pt incontinent of urine, willie care done, powder applied to groin area applied per mar. Lungs clear, diminished, karla room air. Enhanced isolation precautions in place for Covid positive. CPAP worn for several hours during the shift, pt karla well. VSS, anticipate d/c when medically stable.
[2021-05-25] MEDS ORDERED: CATAPRES0.2 M1 PO (12:28)
[2021-05-25] MEDS ORDERED: BASAGLAR K100 UNIT/1 SC (12:30)
[2021-05-25] MEDS ORDERED: LISI20 PO (12:33)
[2021-05-25] MEDS ORDERED: METH10 PO (12:34)
[2021-05-25] MEDS ORDERED: INSULIN LI100 UNIT/6 SC (12:37)
--- NOTE | 2021-05-25 13:23 | NUR ---
DISCHARGE SUMMARY PATIENT IS ALERT AND ORIENTATED X3-4. PATIENT HAD DIALYSIS TODAY WITHOUT INCIDENT. PATIENT HAS HAD NO COMPLAINTS OF PAIN, NAUSEA, SOB OR VOMITTING THIS SHIFT. VITAL SIGNS REVIEWED. PATIENT HAD DISCHARGE INSTRUCTIONS READ TO PATIENT WITH PATIENT VERBALLY UNDERSTANDING. PATIENT IS BEING WHEELED OUT TO [employer] WITH FAMILY AND WITH KIAN STOKES.
== END 2021-05-25 13:38 | disposition home or self-care (01) | DRG 208 ==
LOC: ER 13:06 → ICUW 16:51 → MEDS 05-16 16:31 → ICUE 05-22 07:38 → MEDS 05-24 18:20 → ENPENDDIS 05-25 12:23 → MEDS 05-25 13:38
PROVIDERS: Family Medicine; Internal Medicine; Internal Medicine Critical Care Medicine; Internal Medicine Nephrology; Physician Assistant; Student in an Organized Health Care Education/Training Program; ADMIT Internal Medicine
PROC: 5A1945Z Respiratory Ventilation, 24-96 Consecutive Hours (ICD-10-PCS; principal; 2021-05-13)
PROC: 8E0ZXY6 Isolation (ICD-10-PCS; 2021-05-13)
PROC: 3E033XZ Introduction of Vasopressor into Peripheral Vein, Percutaneous Approach (ICD-10-PCS; 2021-05-13)
PROC: 3E03329 Introduction of Other Anti-infective into Peripheral Vein, Percutaneous Approach (ICD-10-PCS; 2021-05-16)
PROC: 5A09357 Assistance with Respiratory Ventilation, Less than 24 Consecutive Hours, Continuous Positive Airway Pressure (ICD-10-PCS; 2021-05-21)
PROC: 5A1D70Z Performance of Urinary Filtration, Intermittent, Less than 6 Hours Per Day (ICD-10-PCS; 2021-05-24)
DX: J96.21 Acute and chronic respiratory failure with hypoxia (principal); E11.10 Type 2 diabetes mellitus with ketoacidosis without coma; U07.1 COVID-19; N18.6 End stage renal disease; G92.8 Other toxic encephalopathy; E87.1 Hypo-osmolality and hyponatremia; I13.0 Hypertensive heart and chronic kidney disease with heart failure and stage 1 through stage 4 chronic kidney disease, or unspecified chronic kidney disease; I50.32 Chronic diastolic (congestive) heart failure; E11.22 Type 2 diabetes mellitus with diabetic chronic kidney disease; J44.9 Chronic obstructive pulmonary disease, unspecified; I16.0 Hypertensive urgency; Z65.8 Other specified problems related to psychosocial circumstances; Q77.4 Achondroplasia; E66.01 Morbid (severe) obesity due to excess calories; G47.33 Obstructive sleep apnea (adult) (pediatric); Z86.718 Personal history of other venous thrombosis and embolism; K21.9 Gastro-esophageal reflux disease without esophagitis; Z88.0 Allergy status to penicillin; Z79.899 Other long term (current) drug therapy; Z79.4 Long term (current) use of insulin; Z88.8 Allergy status to other drugs, medicaments and biological substances; Z79.82 Long term (current) use of aspirin; F17.210 Nicotine dependence, cigarettes, uncomplicated; Z68.36 Body mass index [BMI] 36.0-36.9, adult; E87.5 Hyperkalemia; D63.1 Anemia in chronic kidney disease; Z78.1 Physical restraint status; E11.649 Type 2 diabetes mellitus with hypoglycemia without coma; E87.6 Hypokalemia; E88.09 Other disorders of plasma-protein metabolism, not elsewhere classified; E83.39 Other disorders of phosphorus metabolism; F11.10 Opioid abuse, uncomplicated
CPT/HCPCS: 0241U; 31500; 36415; 36600; 51702; 70450; 71045; 80048; 80053; 80069; 80202; 81001; 82010; 82140; 82803; 82947; 83735; 84132; 84484; 85014; 85018; 85025; 85027; 87040; 87070; 87205; 93005; 93010; 94002; 94003; 94660; 94667; 94668; 94760; 94762; 96365; 96366; 96375; 99285-25; A9270; C1751; J0881; J1100; J1630; J1644; J1790; J1815; J2310; J2405; J2704; J2997; J3010; J3370; J7030; J7050; J7060; J7070; J7120; J7799

== ENCOUNTER 2021-06-29 21:31 | Inpatient (IN) | payer OTHER ==
[~2021-06-29] VITALS: Ht 121.9 cm; Wt 63.2 kg
[~2021-06-29 21:31] MED LIST changes: +BASAGLAR K100 UNIT/1 SC; +Bumetanide2 MG PO; +CATAPRES0.1 MG PO; +CATAPRES0.2 M1 PO; +Calcium Acetat667 MG PO; +INSULIN LI100 UNIT/6 SC; +LISI20 PO; +METH10 PO
[2021-06-29 22:30] LABS: Calcium, Ionized (POC) 1.09 mmol/L (1.10-1.46); Chloride (POC) 92 mmol/L (98-108); Creatinine (POC) 6.4 mg/dL (0.6-1.0); Glucose (ISTAT POC) >700 mg/dL (70-99); Hemoglobin (POC) 11.6 g/dL (12.0-16.0); Potassium (POC) 5.2 mmol/L (3.5-5.5); Sodium (POC) 127 mmol/L (135-148); Total CO2 (POC) 24 mmol/L (21-32)
[2021-06-29 22:34] LABS: Hematocrit 34.5 % (33.0-51.0); Hemoglobin 10.4 g/dL (11.5-16.0); Mean Corpuscular HGB Conc 30.1 g/dL (31.5-36.5); Mean Corpuscular Volume 103 fL (80-100); Mean Platelet Volume 10.9 fL (9.1-12.4); Platelet Count 508 K/mm3 (150-400); RDW Coefficient Variation 14.1 % (11.7-14.2); RDW Standard Deviation 52.8 fL (35.1-46.3); Red Blood Cell Count 3.36 M/mm3 (3.80-5.20); White Blood Cell Count 13.93 K/mm3 (4.00-11.30)
[2021-06-29 22:57] LABS: BAND PERCENT MAN 1 % (0-8); BASOPHILS PERCENT MAN 0 % (0-2); EOSINOPHILS PERCENT MAN 0 % (0-6); LYMPHOCYTES ABSOLUTE MAN 0.83 K/mm3 (0.84-5.20); LYMPHOCYTES PERCENT MAN 6 % (21-46); MONOCYTES ABSOLUTE MAN 0.83 K/mm3 (0.16-1.47); MONOCYTES PERCENT MAN 6 % (4-13); MYELOCYTE ABSOLUTE MAN 0.13 K/mm3 (0.00-0.00); MYELOCYTE PERCENT MAN 1 % (0-0); NEUTROPHILS ABSOLUTE MAN 12.11 K/mm3 (1.96-9.15); SEG NEUTROPHILS PERCENT MAN 86 % (41-73); TOTAL CELLS COUNTED 100
[2021-06-29 23:07] LABS: Albumin, Blood 2.8 g/dL (3.4-5.0); Albumin/Globulin Ratio 0.6 (0.8-1.8); Bilirubin, Total 0.3 mg/dL (0.1-1.0); Bun/Creatinine Ratio 12.4 (12.0-20.0); Calcium, Blood 9.4 mg/dL (8.5-10.1); Creatinine, Blood 5.88 mg/dL (0.40-1.00); Globulin, Blood 4.9 g/dL (2.2-4.0); Potassium, Blood 5.2 mmol/L (3.5-5.5); Total Protein, Blood 7.7 g/dL (6.4-8.2)
[2021-06-29 23:45] LABS: PCO2 Arterial 57.9 mmHg (35-45); PO2 Arterial 38.8 mmHg (80-100); pH Blood Arterial 7.07 (7.35-7.45)
--- NOTE | 2021-06-30 00:40 | NUR ---
ASSUMED CARE. REPORT RECEIVED FROM ER NURSE. PT ARRIVED AT APPROXIMATELY 0040 FROM ER, RT AT BEDSIDE PROVIDING VENTILATION VIA AMBU BAG. PT HAS ETT IN PLACE, 7.5 21CM AT TEETH. VENT SETTINGS AFTER TRANSFERRING TO ICU BED: /90%. PT HYPERTENSIVE UPON ARRIVAL, NITRO DRIP RUNNING AT 200 MCG/MIN, ADDITIONAL ORDERS FOR LABETOLOL OBTAINED, 20MG IV GIVEN. PROPOFOL RUNNING AT 35 MCG/KG/MIN, INSULIN RUNNING AT 5 UNITS/HR. PT HAS R/FEMORAL CENTRAL LINE ACCESS, IV ACCESS IN R/AC AND L/FOREARM. TEMP HOLLINGSWORTH PLACED. VS STABLE, WILL CONTINUE TO MONITOR.
[2021-06-30 01:18] LABS: Glucose, Blood 1096 mg/dL (70-99)
[2021-06-30 01:48] LABS: Source, Urine Foley catheter
[2021-06-30 01:51] LABS: Bilirubin, Urine Neg (Neg); Blood, Urine 4+ (Neg); Glucose Qualitative, Urine 4+ (Neg); Ketones, Urine 3+ (Neg); Leukocyte Esterase, Urine Neg (Neg); Nitrite, Urine Neg (Neg); Protein, Urine 4+ (Neg); Urobilinogen, Urine NORM (Normal); pH, Urine 6.5 (5.0-8.0)
[2021-06-30 01:56] LABS: Appearance, Urine Clear (Clear); Color, Urine Pale Yellow (P-Yellow)
[2021-06-30 01:57] LABS: Amorphous Light (0-Heavy); Bacteria Rare /hpf; Squamous Epithelial Cells Not Seen /hpf (Few); White Blood Cells, Urine Not Seen /hpf (0-5)
[2021-06-30 02:32] LABS: Glucose, Blood 1029 mg/dL (70-99)
[2021-06-30 03:30] LABS: Glucose, Blood 825 mg/dL (70-99)
[2021-06-30 04:20] LABS: Glucose, Blood 574 mg/dL (70-99)
--- NOTE | 2021-06-30 06:01 | NUR ---
ISTAT GLUCOSE. ISTAT CHECK SHOWS BLOOD GLUCOSE LEVEL OF 553 AT APPROXIMATELY 0555.
--- NOTE | 2021-06-30 06:47 | NUR ---
SHIFT SUMMARY. PT IN BED, SEDATED AND VENTILATED VIA ETT. VENT SETTINGS: AC/PC 22/18/12/80%. OG TUBE IN PLACE. PROPOFOL RUNNING AT 35 MCG/KG/MIN. PT RECEIVED DIALYSIS DURING SHIFT, 2L TAKEN OFF. NITRO DRIP TITRATED OFF DURING DIALYSIS, BACK ON AT 10 MCG/MIN CURRENTLY. INSULIN RUNNING AT 3 UNITS/HR, LAST BG 553 ON ISTAT. SEE ASSESSMENT/NOTES FOR FUTHER DETAILS. WILL CONTINUE TO MONITOR AND REPORT OFF TO DAYSHIFT RN.
--- NOTE | 2021-06-30 08:07 | NUR ---
REPORT FROM PM MILLER BERRY, INCREASED PROPOFOL TO 40 MCG 17.3ML/HR, NITRO 25 MCG 15ML/HR, INSULIN 2.5UNITES/HR 2.5 ML/HR
[2021-06-30 08:14] LABS: BASOPHILS ABSOLUTE AUTO 0.04 K/mm3 (0.00-0.23); BASOPHILS PERCENT AUTO 0 % (0-2); EOSINOPHILS PERCENT AUTO 0 % (0-6); Hematocrit 25.4 % (33.0-51.0); Hemoglobin 8.2 g/dL (11.5-16.0); IMMATURE GRAN ABSOLUTE AUTO 0.13 K/mm3 (0.00-0.10); IMMATURE GRAN PERCENT AUTO 1 % (0-1); LYMPHOCYTES PERCENT AUTO 2 % (21-46); MONOCYTES ABSOLUTE AUTO 0.87 K/mm3 (0.16-1.47); MONOCYTES PERCENT AUTO 5 % (4-13); Mean Corpuscular HGB 30.5 pg (26.0-34.0); Mean Corpuscular HGB Conc 32.3 g/dL (31.5-36.5); Mean Platelet Volume 10.4 fL (9.1-12.4); NEUTROPHILS ABSOLUTE AUTO 17.08 K/mm3 (1.96-9.15); NEUTROPHILS PERCENT AUTO 92 % (41-73); Platelet Count 386 K/mm3 (150-400); RDW Coefficient Variation 13.6 % (11.7-14.2); RDW Standard Deviation 46.2 fL (35.1-46.3); Red Blood Cell Count 2.69 M/mm3 (3.80-5.20); White Blood Cell Count 18.52 K/mm3 (4.00-11.30)
[2021-06-30 08:21] LABS: Mean Corpuscular Volume 94 fL (80-100)
[2021-06-30 08:34] LABS: Albumin, Blood 2.6 g/dL (3.4-5.0); Albumin/Globulin Ratio 0.7 (0.8-1.8); Bilirubin, Total 0.3 mg/dL (0.1-1.0); Calcium, Blood 8.5 mg/dL (8.5-10.1); Creatinine, Blood 4.1 mg/dL (0.40-1.00); Globulin, Blood 3.9 g/dL (2.2-4.0); Potassium, Blood 4.2 mmol/L (3.5-5.5); Total Protein, Blood 6.5 g/dL (6.4-8.2)
--- NOTE | 2021-06-30 09:38 | NUR ---
REPORTED TO DR CHATTERJEE, INCREASED TEMP 101.4, ICE TO PATIENT, [place] TYLENOL ORDERED AND ADMINSTERED, LABS AND CULTURES SENT, ANION GAP CLOSED, INSILIN AT 1, NITRO25, PROPOFOL 50, DR CASTANEDA ROUNDED EARLY THIS AM, NO CHANGES IN CARE, BM, ALY CARE, ORAL CARE AND CATH CARE DONE
[2021-06-30 10:37] LABS: Bun/Creatinine Ratio 11.9 (12.0-20.0); Calcium, Blood 7.4 mg/dL (8.5-10.1); Creatinine, Blood 3.79 mg/dL (0.40-1.00); Potassium, Blood 3.9 mmol/L (3.5-5.5)
--- NOTE | 2021-06-30 14:41 | NUR ---
UNDATED MOTHER AT 0929, DR NEAL AT 1030, REPORTED INCREASE IN SBP AND TEMP, RESTLESS MOVEMENTS, LABATOLO NOT STAYING ON BOARD, REVEIWED HOME MEDICATIONS, STARTED METHADON, CLONIDINE, PRN DILAUDID, SPUTUMN SAMPLE SENT. 1100INSULIN GTT OFF, LONG ACTING INSULIN ADMIISTERED, SHORT ACTING STARTED. WCTM
--- NOTE | 2021-06-30 14:47 | NUR ---
REPORTED TO DR NEAL TEMP 102.9, COOLING BLANKET STARTED, ANTIBIOTICS GIVEN, BC DONE THIS AM
[2021-06-30 16:59] LABS: Bun/Creatinine Ratio 11.4 (12.0-20.0); Calcium, Blood 8.6 mg/dL (8.5-10.1); Creatinine, Blood 4.64 mg/dL (0.40-1.00)
--- NOTE | 2021-06-30 18:23 | NUR ---
SEDATED, EASILY AROUSABLE, RESTLESS MOVEMENTS IN LEGS AND ARMS, TEMP HIGH 102.9, COOLING BLANKET AND ICE ON, TEMP NOW 100.9. INSULIN GTT OFF AT 11OO, HIGH S/S COVERAGE. LS CLEAR, DIMINSHED, SHALLOW BREATHING, TOLERATING THE ET TUBE, 7. AT THE LIP, OG TO LIS BROWN COLORED, MUCUS AND URINE SAMPLES SENT, RIGHT FEMORAL LINE CDI, LEFT FA IV FLUSHED, RIGHT AC IV FLUSHED. PROPOFOL AT 80 MCG, NITRO AT 20 MCG, TITRATING FOR SBO 180 AND UNDER, WILL RELAY TO PM RN, MUSHTAQ
--- NOTE | 2021-06-30 19:15 | NUR ---
ASSUMED CARE. REPORT RECEIVED FROM MATILDE BERRY. PT IN BED, SEDATED AND VENTILATED VIA ETT. VENT SETTINGS: AC/VC 22/350/8/30%. OG TUBE IN PLACE-TO LOW INTERMITTENT SUCTION. R/FEM CENTRAL LINE IN PLACE, IV PUMP SETTINGS: PROPOFOL 80 MCG/KG/MIN, NITRO 10 MCG/MIN. HOLLINGSWORTH CATHETER IN PLACE, DRAINING TO GRAVITY. VS STABLE, NO ACUTE NEEDS ATT. WILL CONTINUE TO MONITOR.
[2021-06-30 23:39] LABS: Bun/Creatinine Ratio 10.6 (12.0-20.0); Calcium, Blood 8.4 mg/dL (8.5-10.1); Creatinine, Blood 4.89 mg/dL (0.40-1.00); Potassium, Blood 4.2 mmol/L (3.5-5.5)
[2021-07-01 03:53] LABS: Hematocrit 24.4 % (33.0-51.0); Hemoglobin 7.9 g/dL (11.5-16.0)
[2021-07-01 04:10] LABS: Albumin, Blood 2.4 g/dL (3.4-5.0); Anion Gap 10 mmol/L (6-16); Blood Urea Nitrogen 54 mg/dL (8-24); Bun/Creatinine Ratio 10.7 (12.0-20.0); CO2, Blood 31 mmol/L (21-32); Calcium, Blood 8.8 mg/dL (8.5-10.1); Chloride, Blood 94 mmol/L (98-108); Creatinine, Blood 5.06 mg/dL (0.40-1.00); Glomerular Filtration Rate 9 (60-); Glucose, Blood 200 mg/dL (70-99); Magnesium, Blood 2.3 mg/dL (1.6-2.4); Phosphorus, Blood 6.2 mg/dL (2.5-4.9); Potassium, Blood 4.2 mmol/L (3.5-5.5); Sodium, Blood 135 mmol/L (136-145)
--- NOTE | 2021-07-01 06:38 | NUR ---
SHIFT SUMMARY. PT CONTINUES SEDATED AND VENTILATED VIA ETT. VENT SETTINGS UNCHANGED. OG TUBE IN PLACE, 300 MLS BROWN LIQUID OUT THIS SHIFT. R/FEM CENTRAL LINE WNL, IV PUMPS RUNNING PROPOFOL 70 MCG/KG/MIN, NITRO 80 MCG/MIN, NS TKO. TEMP HOLLINGSWORTH IN PLACE, 300 MLS CLEAR/YELLOW URINE OUT THIS SHIFT. PT HYPERTENSIVE DURING SHIFT, PRN LABETOLOL GIVEN, NITRO TITRATED UP. VS OTHERWISE STABLE, SEE SHIFT ASSESSMENT FOR FURTHER DETAILS. WILL CONTINUE TO MONITOR AND REPORT OFF TO DAYSHIFT RN.
--- NOTE | 2021-07-01 08:00 | NUR ---
PT REMAINS INTUBATED, SEDATED, AND RESTRAINED. GRIMACES TO ORAL CARE AND PAINFUL STIMULI, BUT DOES NOT SPONTANEOUSLY OPEN HER EYES OR MOVE HER EXTREMITIES. PUPIL 4 MM AND BRISK. PROPOFOL @ 70 MCG/KG/MIN. ECG SHOWS SR WITH RATE 80'S. TEMP 99.4 PT QUITE DIAPHORETIC. SBP 160'S TO 170'S WITH NITRO DRIP @ 80 MCG/MIN. ETT 7.5/21 A TEETH. VENT: AC 22, TV 350, PEEP 8, FIO2 30%-SATS >90% LUNGS WITH FINE CRACKLES TO BASES. SUCTION PRODUCTIVE OF THICK, PINK, FROTHY SPUTUM-SMALL AMOUNT. ABDOMEN SOFT WITH HYPO BT'S X 4. NGT TO LIS WITH MODERATE AMOUNT OF BLOODY DRAINAGE. HEPARIN SQ HELD-SEE EMAR. DR. SEN HOLLINGSWORTH WITH SMALL AMOUNT OF CLEAR, YELLOW URINE TO BSD. RSC TUNNELED DIALYSIS CATHETER DRESSING IS C/D/I. ANITICIPATE DIALYSIS LATER THIS AM. SKIN IS PALE AND DIAPHORETIC, BUT NO NOTED SKIN BREAKDOWN.
--- NOTE | 2021-07-01 09:40 | NUR ---
DR. REED IN TO SEE PT AND UPDATE GIVEN. MD AWARE OF BLOOD VIA OGT AND HGB 7.9. DR. MORENO HAS BEEN CONSULTED. HOLD TUBE FEEDING IN THE MEANTIME.
--- NOTE | 2021-07-01 09:51 | NUR ---
HEMODIALYSIS INITIATED.
--- NOTE | 2021-07-01 12:30 | NUR ---
HEMODIALYSIS COMPLETE. 2.5 LITERS REMOVED. NO ACUTE NEURO CHANGES. ECG CONTINUES SR-AFEBRILE. SBP TRENDING 140'S WITH NITRO DRIP @ 20 MCG/MIN. LUNGS DIMINISHED TO BASES. SATS>90% ON FIO2 30% OGT CONTINUES WITH SMALL AMOUNT OF BROWN/RED DRAINAGED. ABDOMEN REMAINS SOFT. NO BM. HOLLINGSWORTH WITH SMALL AMOUNT OF YELLOW URINE TO BSD. SKIN REMAINS PALE, BUT NO LONGER DIAPHORETIC.
[2021-07-01 13:08] LABS: Vancomycin, Random 11.8 ug/mL
--- NOTE | 2021-07-01 13:45 | NUR ---
PROPOFOL ON STANDBY. VENT ON PS 15, PEEP 5, FIO2 30%. SATS>90% SBP TRENDING 170-190'S-NITRO TITRATED UP TO 40 MCG/MIN.
--- NOTE | 2021-07-01 14:45 | NUR ---
SEDATION REMAINS ON STANDBY, BUT PT STILL NOT AWAKENING. GRIMACES TO NOXIOUS STIMULI. CONTINUES ON PS 15. SBP 170'S TO 200'S TITRATED NITRO UP TO 100 MCG/MIN.
[2021-07-01 15:11] LABS: BASOPHILS ABSOLUTE AUTO 0.02 K/mm3 (0.00-0.23); BASOPHILS PERCENT AUTO 0 % (0-2); EOSINOPHILS PERCENT AUTO 0 % (0-6); Hematocrit 24.2 % (33.0-51.0); IMMATURE GRAN ABSOLUTE AUTO 0.08 K/mm3 (0.00-0.10); IMMATURE GRAN PERCENT AUTO 1 % (0-1); LYMPHOCYTES ABSOLUTE AUTO 0.82 K/mm3 (0.84-5.20); LYMPHOCYTES PERCENT AUTO 7 % (21-46); MONOCYTES ABSOLUTE AUTO 1.47 K/mm3 (0.16-1.47); MONOCYTES PERCENT AUTO 12 % (4-13); Mean Corpuscular HGB 31.3 pg (26.0-34.0); Mean Corpuscular HGB Conc 33.1 g/dL (31.5-36.5); Mean Corpuscular Volume 95 fL (80-100); Mean Platelet Volume 10.3 fL (9.1-12.4); NEUTROPHILS ABSOLUTE AUTO 10.27 K/mm3 (1.96-9.15); NEUTROPHILS PERCENT AUTO 81 % (41-73); Platelet Count 372 K/mm3 (150-400); RDW Coefficient Variation 13.8 % (11.7-14.2); RDW Standard Deviation 47.8 fL (35.1-46.3); Red Blood Cell Count 2.56 M/mm3 (3.80-5.20); White Blood Cell Count 12.66 K/mm3 (4.00-11.30)
--- NOTE | 2021-07-01 15:27 | NUR ---
DR. REED GIVEN UPDATE. PT HAS BEEN ADDED TO DAY SURGERY SCHEDULE FOR EGD LATER TODAY. PT STILL ONLY GRIMACING TO PAINFUL STIMULI. SEDATION RESUMED AND PT PLACED BACK ON PREVIOUS VENT SETTINGS PER DR. REED VERBAL ORDER. PROPOFOL @ 35 MCG/KG//MIN.
[2021-07-01 15:40] LABS: Bun/Creatinine Ratio 8.8 (12.0-20.0); Calcium, Blood 8.6 mg/dL (8.5-10.1); Creatinine, Blood 3.17 mg/dL (0.40-1.00); Potassium, Blood 3.1 mmol/L (3.5-5.5)
--- NOTE | 2021-07-01 15:52 | NUR ---
DR. SNYDER GIVEN UPDATED. NOTIFIED THAT K+ 3.1 AND GLUCOSE 53-ORDERS WRITTEN.
--- NOTE | 2021-07-01 16:23 | NUR ---
07/01/21 1623 Ben Martinez History, Chart, Medications and Allergies reviewed before start of procedure.MONITOR INTACT WITH CONTINUOUS PULSE OXIMETRY AND INTERMITTENT BP.3-LEAD EKG REVIEWED WITH PHYSICIAN PRIOR TO START OF PROCEDURE.PAIENT VENTILATED WITH PROPOFOL GTT.
--- NOTE | 2021-07-01 16:30 | NUR ---
PT REMAINS INTUBATED, SEDATED, AND RESTRAINED. DR. MORENO HERE TO SEE PT. INFORMED CONSENT OBTAINED FROM PT MOTHER. EGD DONE. PROPOFOL TITRATED UP TO 90 MCG/KG/MIN, BUT PT STILL BITING ON ETT-MED WITH VERSED 2 MG IVP X 1. PT GIVEN DILAUDID 1 MG IVP X 1 FOR CPOT-MINIMAL IMPROVEMENT-SEE EMAR. ONCE EGD COMPLETE-PROPOFOL DECREASED TO 75 MCG/KG/MIN. NITRO DRIP CONTINUES @ 100 MCG/MIN. PT MEDICATED WITH LABETOLOL WITH MINIMAL IMPROVEMENT-SEE EMAR. NEW OGT PLACED PER V.O. DR. MORENO. OK TO START TF AND GIVE MEDS, BUT NO SUCTION.
--- NOTE | 2021-07-01 17:53 | NUR ---
CBG 160 AFTER DEXTROSE GIVEN-SEE EMAR. KCL 40 MEQ IVPB INITIATED-SEE EMAR.
--- NOTE | 2021-07-01 19:17 | NUR ---
ASSUMED CARE PATIENT LYING IN BED INTUBATED AND SEDATED WITH PROPOFOL @ 75MCG/KG/MIN. NITROGLYCERIN INF @ 100MCG/MIN, NS @ 10ML/HR, AND KCL INF TO RT FEMORAL CENTRAL LINE. VENT SETTINGS AC/VC 22/350/5/30% WITH SPO2 91% AND RR 23. PATIENT IS MOVING TOES IN BED BUT DOES NOT RESPOND VERBAL STIMULI. MONITOR SHOWS SINUS RHYTHM W/ RATE 83 BPM. BP ELEVATED AT 162/69. HOLLINGSWORTH PATENT AND DRAINING LIGHT YELLOW CLEAR URINE TO GRAVITY. REPORT COMPLETED WITH KRISTI LOYD.
[2021-07-01 22:27] LABS: Albumin, Blood 2.2 g/dL (3.4-5.0); Anion Gap 8 mmol/L (6-16); Blood Urea Nitrogen 31 mg/dL (8-24); Bun/Creatinine Ratio 8.8 (12.0-20.0); CO2, Blood 33 mmol/L (21-32); Calcium, Blood 8.2 mg/dL (8.5-10.1); Chloride, Blood 95 mmol/L (98-108); Creatinine, Blood 3.53 mg/dL (0.40-1.00); Glomerular Filtration Rate 14 (60-); Glucose, Blood 152 mg/dL (70-99); Phosphorus, Blood 4.6 mg/dL (2.5-4.9); Potassium, Blood 3.5 mmol/L (3.5-5.5); Sodium, Blood 136 mmol/L (136-145)
[2021-07-02 03:48] LABS: BASOPHILS ABSOLUTE AUTO 0.02 K/mm3 (0.00-0.23); BASOPHILS PERCENT AUTO 0 % (0-2); EOSINOPHILS ABSOLUTE AUTO 0.02 K/mm3 (0.00-0.68); EOSINOPHILS PERCENT AUTO 0 % (0-6); Hematocrit 24.7 % (33.0-51.0); Hemoglobin 8.1 g/dL (11.5-16.0); IMMATURE GRAN ABSOLUTE AUTO 0.12 K/mm3 (0.00-0.10); IMMATURE GRAN PERCENT AUTO 1 % (0-1); LYMPHOCYTES ABSOLUTE AUTO 1.18 K/mm3 (0.84-5.20); LYMPHOCYTES PERCENT AUTO 10 % (21-46); MONOCYTES ABSOLUTE AUTO 1.83 K/mm3 (0.16-1.47); MONOCYTES PERCENT AUTO 15 % (4-13); Mean Corpuscular HGB 31.2 pg (26.0-34.0); Mean Corpuscular HGB Conc 32.8 g/dL (31.5-36.5); Mean Corpuscular Volume 95 fL (80-100); Mean Platelet Volume 9.9 fL (9.1-12.4); NEUTROPHILS ABSOLUTE AUTO 9.27 K/mm3 (1.96-9.15); NEUTROPHILS PERCENT AUTO 74 % (41-73); NRBC ABSOLUTE 0.02 K/mm3 (0.00-0.02); NRBC Auto 0.2 /100 WBC (0.0-0.2); Platelet Count 396 K/mm3 (150-400); RDW Coefficient Variation 13.8 % (11.7-14.2); RDW Standard Deviation 47.9 fL (35.1-46.3); White Blood Cell Count 12.44 K/mm3 (4.00-11.30)
[2021-07-02 04:16] LABS: Magnesium, Blood 1.7 mg/dL (1.6-2.4)
[2021-07-02 04:24] LABS: Albumin, Blood 2.3 g/dL (3.4-5.0); Anion Gap 9 mmol/L (6-16); Blood Urea Nitrogen 33 mg/dL (8-24); Bun/Creatinine Ratio 8.7 (12.0-20.0); CO2, Blood 33 mmol/L (21-32); Calcium, Blood 8.3 mg/dL (8.5-10.1); Chloride, Blood 95 mmol/L (98-108); Creatinine, Blood 3.78 mg/dL (0.40-1.00); Glomerular Filtration Rate 13 (60-); Glucose, Blood 33 mg/dL (70-99); Potassium, Blood 3.4 mmol/L (3.5-5.5); Sodium, Blood 137 mmol/L (136-145)
--- NOTE | 2021-07-02 06:31 | NUR ---
SHIFT SUMMARY PATIENT HAD HYPOGLYCEMIC EVENT THIS MORNING WITH CBG OF 33 FROM VENOUS LINE. DEXTROSE 5% 250ML BAG BOLUSED AND CBG RECHECKED 1 HOUR LATER WITH CBG INCREASING TO 61. CALL MADE TO DR. CASTANEDA AND UPDATE GIVEN-SECOND DEXTROSE 5% 250ML BAG ORDERED TO BE GIVEN. DR. CASTANEDA ALSO ORDERED 10MEQ KCL IV X 1 FOR POTASSIUM LEVEL OF 3.4 THIS MORNING. PROPOFOL HAS BEEN ON SB SINCE 325. PATIENT GRIMACES TO NOXIOUS STIMULI AND PULLS AWAY FROM PAINFUL STIMULI, OTHERWISE NO OTHER RESPONSES. LUNGS REMAINED CLEAR T/O SHIFT AND FIO2 INCREASED FROM 30% TO 40% AND PEEP DECREASED FROM 8 TO 5. HOLLINGSWORTH DRAINED 350ML CLEAR YELLOW URINE WITH GREEN TINT. PATIENT HAD ONE SMALL BOWEL MOVEMENT. OGT REMAINED CLAMPED OTHER THAN WHEN MEDS GIVEN. NITROGLYCERIN GTT INCREASED FROM 100MCG/MIN TO 110 MCG/MIN. ONE DOSE LABETALOL 20MG IV AND ONE DOSE DILAUDID 1MG IV GIVEN DURING SHIFT. NO OTHER MAJOR CHANGES DURING SHIFT.
--- NOTE | 2021-07-02 08:00 | NUR ---
PT REMAINS INTUBATED AND MECHANICALLY VENTILATED. PT GRIMACES WITH STIMULI AND OPENS EYES SPONTANEOUSLY, BUT NOT TRACKING OR FOLLOWING COMMANDS AT THIS TIME. PROPOFOL DRIP HAS BEEN OFF SINCE 0330. PT IS AFEBRILE. HR 70'S SR. BP REMAINS ELEVATED ON NITRO DRIP @ 110 MCG/MIN. GENERALIZED EDEMA NOTED. LUNGS DIMINISHED IN THE BASES. FEW ETT SECRETIONS. MAINTAINS SATS>90% ON AC/VC 22/350/5/40% OGT REMAINS CLAMPED. NO FURTHER GIB OVERNIGHT. HOLLINGSWORTH TO BSD WITH SMALL AMOUNT OF CLEAR, YELLOW URINE TO BSD. SKIN IS PALE AND DIAPHORETIC, BUT NO NOTED SKIN BREAKDOWN. CBG 122-LONG ACTING INSULIN HELD GLUCOSE DOWN TO THE 30'S OVERNIGHT. ANTICIPATE WEANING TRIAL THIS AM. IF PT NOT EXTUBATED TODAY, ANTICIPATE INITIATION OF TUBE FEEDINGS.
--- NOTE | 2021-07-02 09:03 | NUR ---
DR. REED IN TO SEE PT @ 0841-FIO2 DECREASED TO 30%. 0842 PT PLACED ON PS 5-TV'S 90-110'S. 0843 INCREASED PS 12 AND TV'S 300'S. 0844 INCREASED PS 15 AND TV'S 380'S. [address] REED THAT WHEN PT HAD HER COMMUNICATIONS TOWER TECHNICIAN YESTERDAY, IT WAS NOTED THAT THERE WAS PROFOUND SWELLING AROUND THE VOCAL CORDS. DR. ERED CHECKED ETT FOR CUFF LEAK AND MINIMAL LEAK NOTED. TIFFANIE RT AWARE AND WILL RE-CHECK CUFF LEAK LATER TODAY. 0848 PS DECREASED TO 12 AND TV'S 310'S.
--- NOTE | 2021-07-02 10:15 | NUR ---
VENT ALARMING DUE TO LOW MINUTE VENTILATION. END TIDAL CO2 39-DR. REED AWARE. PT PLACED BACK ON PREVIOUS SETTING BUT RATE DECREASED TO 16 BY TIFFANIE RT. C02 34 AND SATS 99%. WILL CONTINUE TO HOLD SEDATION FOR NOW, UNLESS PT BECOME ASYNCHRONOUS WITH THE VENTILATOR.
--- NOTE | 2021-07-02 10:36 | NUR ---
PT TO REMAIN INTUBATED TODAY. CPOT 4-MED WITH DILAUDID 1 MG IVP-SEE EMAR. CPOT 0 AFTER MED.
--- NOTE | 2021-07-02 12:00 | NUR ---
PT RESTING QUIETLY ON VENT-SYNCHRONOUS WITH VENT. AFEBRILE. HR 60'S SR WITH OCCASIONAL PVC'S. SBP TRENDING 140-170'S SINCE NORVASC GIVEN-SEE EMAR. GOAL TITRATE NITRO TO OFF IF POSSIBLE-PER DR. LA. *GOAL SBP < 160* DIETARY HAS BEEN CONSULTED TO BEGIN TUBE FEEDING TODAY. STEROIDS HAVE BEEN INITIATED. CBG 191 COVERED PER SLIDING SCALE.
--- NOTE | 2021-07-02 16:00 | NUR ---
PT OPENS EYES TO VOICE AND SEEMS TO BE TRACKING, BUT STILL NOT FOLLOWING COMMANDS. CPOT 4 MED WITH DILAUDID 1 MG IVP X 1-SEE EMAR. PT REMAINS AFEBRILE. ECG SHOWS SR WITH OCCASIONAL PVC'S. SBP 150-170'S WITH NITRO @ 100 MCG/MIN*TITRATING TO SBP<160.* LUNGS DIMINISHED IN THE BASES. MAINTAINS SATS>90% ON FI02 30%. PT TOLERATING TF NEPRO @ 25 CC/HR WELL. RESIDUAL 70 CC REFED. NO BM THIS SHIFT. HOLLINGSWORTH TO BSD WITH SMALL AMOUNT OF CLEAR, YELLOW URINE OUTPUT.
--- NOTE | 2021-07-02 17:45 | NUR ---
AFTER SPEAKING WITH FAMILY, PT MADE A DNR.STATUS CHANGED TO MED NO TELE.
--- NOTE | 2021-07-02 17:55 | NUR ---
Review of pt with nursing. No family present will see if pt needs advance directive.
--- NOTE | 2021-07-02 19:30 | NUR ---
ASSUMED CARE PATIENT LYING IN BED INTUBATED WITH 7.5 ETT 22CM @ LIP. VENT SETTINGS AC/VC 16/350/5/30% WITH SPO2 HIGH 90'S-100% RR 16-22. OCCASSIONAL NONPRODUCTIVE COUGHING AROUND ETT. SWALLOW AND GAG INTACT. NO SEDATION INF AT THIS TIME. NITRO INF @ 60MCG/MIN AND NS TKO TO RT FEM CL. TEMP HOLLINGSWORTH PATENT AND DRAINING CLEAR YELLOW URINE TO GRAVITY. PATIENT OPENS EYES WITH REPEATED PHYSICAL AND VERBAL STIMULI. WEAKLY NODS HEAD NO TO PAIN. LUNG SOUNDS CLEAR T/O, DIM IN BASES. BT ACTIVE X 4, NEPRO TF INF @ 25ML/HR WITH 30ML Q4H WATER FLUSHES. RESIDUAL OF 60ML, 90ML ADDITIONAL FLUID VIA OGT FOR MED ADMINISTRATION. TF INCREASED TO GOAL RATE 35ML/HR. MONITOR SHOWS SINUS RHYTHM W/ RATE 80'S. BP STABLE AT 148/62 MAP 86. VAMSHI RADIAL PULSES STRONG, FAINT VAMSHI DP AND PT PULSES. REPORT COMPLETED WITH KRISTI SRINIVASAN FROM KRISTI LOYD.
--- NOTE | 2021-07-03 00:53 | NUR ---
BLOOD GLUCOSE 388 CBG AT 0000 WAS 388. CALL MADE TO DR. KELLEY FOR INSULIN HSS ADVICE. ORDERS RECIEVED FOR 12 UNITS INSULIN LISPRO NOW AND RECHECK CBG IN ONE HOUR.
[2021-07-03 04:00] LABS: BASOPHILS ABSOLUTE AUTO 0.01 K/mm3 (0.00-0.23); BASOPHILS PERCENT AUTO 0 % (0-2); EOSINOPHILS ABSOLUTE AUTO 0.01 K/mm3 (0.00-0.68); EOSINOPHILS PERCENT AUTO 0 % (0-6); Hematocrit 25.4 % (33.0-51.0); Hemoglobin 8.2 g/dL (11.5-16.0); IMMATURE GRAN ABSOLUTE AUTO 0.24 K/mm3 (0.00-0.10); IMMATURE GRAN PERCENT AUTO 3 % (0-1); LYMPHOCYTES PERCENT AUTO 5 % (21-46); MONOCYTES ABSOLUTE AUTO 0.85 K/mm3 (0.16-1.47); MONOCYTES PERCENT AUTO 10 % (4-13); Mean Corpuscular HGB 30.3 pg (26.0-34.0); Mean Corpuscular HGB Conc 32.3 g/dL (31.5-36.5); Mean Corpuscular Volume 94 fL (80-100); Mean Platelet Volume 10.3 fL (9.1-12.4); NEUTROPHILS ABSOLUTE AUTO 6.75 K/mm3 (1.96-9.15); NEUTROPHILS PERCENT AUTO 82 % (41-73); NRBC ABSOLUTE 0.02 K/mm3 (0.00-0.02); NRBC Auto 0.2 /100 WBC (0.0-0.2); Platelet Count 391 K/mm3 (150-400); RDW Coefficient Variation 13.9 % (11.7-14.2); RDW Standard Deviation 47.2 fL (35.1-46.3); Red Blood Cell Count 2.71 M/mm3 (3.80-5.20); White Blood Cell Count 8.26 K/mm3 (4.00-11.30)
[2021-07-03 04:25] LABS: Albumin, Blood 2.2 g/dL (3.4-5.0); Anion Gap 12 mmol/L (6-16); Blood Urea Nitrogen 48 mg/dL (8-24); Bun/Creatinine Ratio 10.5 (12.0-20.0); CO2, Blood 28 mmol/L (21-32); Calcium, Blood 7.9 mg/dL (8.5-10.1); Chloride, Blood 89 mmol/L (98-108); Creatinine, Blood 4.55 mg/dL (0.40-1.00); Glomerular Filtration Rate 10 (60-); Glucose, Blood 354 mg/dL (70-99); Potassium, Blood 3.9 mmol/L (3.5-5.5); Sodium, Blood 129 mmol/L (136-145)
--- NOTE | 2021-07-03 04:29 | NUR ---
SHIFT SUMMARY PATIENT REMAINED INTUBATED WITHOUT SEDATION, TOLERATED WELL. REQUIRED ONE DOSE OF DILAUDID 0.5MG TO HELP WITH COUGHING. NO SECRETIONS FROM ETT AND LUNGS REMAIN CLEAR. PATIENT IS NOW OPENING EYES AND NODDING "YES/NO" TO SIMPLE QUESTIONS, PULLING ON RESTRAINT WHEN COUGHING. PATIENT HAD HIGH CBG OF 388 AT 0000-SEE NOTE ON BLOOD GLUCOSE. OGT HAD MINIMAL TO NO RESIDUALS AND NO BM THIS SHIFT. HOLLINGSWORTH STILL DRAINING TO GRAVITY. NITRO INF @ 60MCG/MIN AND NS TKO TO RT FEM CL. REPORT GIVEN TO KRISTI SRINIVASAN.
--- NOTE | 2021-07-03 04:42 | NUR ---
ASSUMPTION OF CARE: PT ON VENT, OXYGEN SAT 94%. SR ON THE MONITOR IN THE 70S. NITRO GTT AT 60MCG. NO ACUTE S/S OF DISTRESS NOTED AT TIME OF ASSUMPTION OF CARE.
[2021-07-03 04:50] LABS: Phosphorus, Blood 8.1 mg/dL (2.5-4.9)
--- NOTE | 2021-07-03 12:19 | NUR ---
REASSESSMENT PATIENT WAS PLACED ON SPONTANEOUS AT [address] REED, PATIENT TOLERATED WELL. EXTUBATED WITH PATIENT ALERT AND FOLLOWING COMMANDS AT 1030 TO 3L 02 VIA TN. CURRENTLY PATIENT DROWSY, AWAKENS EASILY, ASKS QUESTIONS BUT VOICE IS HOARSE AND HARD TO UNDERSTAND. CONTINUES TO FOLLOW COMMANDS AND PROVIDED ORIENTATION TO SITUATION. WILL CONTINUE TO MONITOR.
--- NOTE | 2021-07-03 17:43 | NUR ---
SHIFT SUMMARY PATIENT INTUBATED, PLACED ON SPONTANEOUS AT 0900 AND EXTUBATED TO NASAL CANNULA AT 1030 WITH KIMBERLEE SP02. PATIENT ALERT, DIFFICULT TO UNDERSTAND SPEECH AND REPEATED THE SAME WORDS FREQUENTLY. FOLLOWED COMMANDS AND WAS DROWSY UPON EXTUBATION. WOULD EASILY AWAKE WHEN STIMULATED. UNABLE TO SAFELY SWALLOW DUE TO RECENT EXTUBATION. CONTINUED ASSESSING ABILITY TO FOLLOW THE BEDSIDE SPEECH EVAL. REPOSITIONED BUT TOO WEAK TO ASSIST, CONTINUED TO BE A TWO PERSON REPOSITION. AT 1645 RN ENTERED ROOM TO GIVE EVENING MEDICATIONS, PATIENT WITH EYES OPEN, DIAPHORETIC AND NOT RESPONDING TO VERBAL STIMULI. DR. REED TO ROOM IMMEDIATELY AND GLUCOSE CHECKED RESULTED. DEXTROSE GIVEN CHARTED, PATIENT BEGAN TO RESPOND APPROPRIATELY AGAIN. BACK TO BASELINE PREVIOUSLY NOTED UPON EXTUBATION. CONTINUED TO REPEAT THE SAME WORDS, UNABLE TO UNDERSTAND SPEECH CLEARLY BUT DOES FOLLOW COMMANDS APPROPRIATELY. RECHECKED GLUCOSE WITH RESULT UP TO 90'S. CONTINUING TO MONITOR. DR. REED NOTIFIED OF CURRENT GLUCOSE, ORDERS BEING CHANGED REGARDING INSULIN. WILL CONTINUE TO ASSESS PATIENT'S ABILITY TO SAFELY SWALLOW TO BEGIN PO INTAKE WHEN ABLE.
--- NOTE | 2021-07-03 19:40 | NUR ---
ASSUMPTION OF CARE: PT WAS DIFFICULT TO AROUSE ON INITIAL ASSESSMENT. HISTORY OF HYPOGLYCEMIA EARLIER IN THE DAY. BLOOD GLUCOSE CHECKED AND IT WAS 46. DR. REED ON UNIT AND NOTIFIED. ASSESSED PT IN ROOM. ORDERS GIVEN. SEE EMAR
[2021-07-04 04:33] LABS: BASOPHILS ABSOLUTE AUTO 0.05 K/mm3 (0.00-0.23); BASOPHILS PERCENT AUTO 0 % (0-2); EOSINOPHILS ABSOLUTE AUTO 0.21 K/mm3 (0.00-0.68); EOSINOPHILS PERCENT AUTO 1 % (0-6); Hematocrit 33.1 % (33.0-51.0); Hemoglobin 10.8 g/dL (11.5-16.0); IMMATURE GRAN ABSOLUTE AUTO 0.29 K/mm3 (0.00-0.10); IMMATURE GRAN PERCENT AUTO 2 % (0-1); LYMPHOCYTES ABSOLUTE AUTO 1.75 K/mm3 (0.84-5.20); LYMPHOCYTES PERCENT AUTO 9 % (21-46); MONOCYTES ABSOLUTE AUTO 1.42 K/mm3 (0.16-1.47); MONOCYTES PERCENT AUTO 8 % (4-13); Mean Corpuscular HGB 30.9 pg (26.0-34.0); Mean Corpuscular HGB Conc 32.6 g/dL (31.5-36.5); Mean Corpuscular Volume 95 fL (80-100); Mean Platelet Volume 10.5 fL (9.1-12.4); NEUTROPHILS ABSOLUTE AUTO 15.22 K/mm3 (1.96-9.15); NEUTROPHILS PERCENT AUTO 80 % (41-73); NRBC ABSOLUTE 0.03 K/mm3 (0.00-0.02); NRBC Auto 0.2 /100 WBC (0.0-0.2); Platelet Count 499 K/mm3 (150-400); RDW Coefficient Variation 13.8 % (11.7-14.2); Red Blood Cell Count 3.49 M/mm3 (3.80-5.20); White Blood Cell Count 18.94 K/mm3 (4.00-11.30)
[2021-07-04 04:58] LABS: Albumin, Blood 2.6 g/dL (3.4-5.0); Anion Gap 13 mmol/L (6-16); Blood Urea Nitrogen 56 mg/dL (8-24); Bun/Creatinine Ratio 11.1 (12.0-20.0); CO2, Blood 26 mmol/L (21-32); Chloride, Blood 88 mmol/L (98-108); Creatinine, Blood 5.03 mg/dL (0.40-1.00); Glomerular Filtration Rate 9 (60-); Glucose, Blood 131 mg/dL (70-99); Magnesium, Blood 2.1 mg/dL (1.6-2.4); Potassium, Blood 3.5 mmol/L (3.5-5.5); Sodium, Blood 127 mmol/L (136-145)
[2021-07-04 05:18] LABS: Phosphorus, Blood 8.2 mg/dL (2.5-4.9)
--- NOTE | 2021-07-04 07:59 | NUR ---
ASSUMPTION OF CARE RECEIVED REPORT FROM CRAIG BERRY, ASSUMED CARE OF PATIENT AT 0700. PATIENT ALERT, ORIENTED TO PLACE, FOLLOWS COMMANDS. SPEECH GARBALED AT TIMES AND PATIENT HAS A HARD TIME FINISHING SENTENCES AND FINDING THE RIGHT WORDS TO SAY. PATIENT ON ROOM AIR WITH SP02 ABOVE 95%, HYPERTENSIVE WITH LABETOLOL GIVEN. PLAN FOR DIALYSIS TODAY. D10 INFUSING VIA FEMORAL CENTRAL LINE, WITH CBG 113. [place] PATENT AND DRAINING CLEAR, YELLOW URINE. ORIENTED PATIENT TO CALL LIGHT AND EDUCATED REGARDING MEDICATIONS AND PLAN FOR TODAY. PATIENT VERBALIZED UNDERSTANDING BUT WILL REINFORCE EDUCATION. WILL REVIEW ORDERS AND TREAT PRESCRIBED.
--- NOTE | 2021-07-04 09:31 | NUR ---
HYPERTENSION DISCUSSED HYPERTENSION WITH DIALYSIS NURSE WHO IS RUNNING DIAYLSIS CURRENTLY. WILL HOLD ANTI HYPERTENSIVE MEDICATIONS UNTIL AFTER DIALYSIS.
--- NOTE | 2021-07-04 12:56 | NUR ---
HYPERTENSION PATIENT REMAINED HYPERTENSIVE DURING DIALYSIS WITH BLOOD PRESSURE TRENDING 170-200 SYSTOLICALLY. CONTINUED CONVERSATIONS WITH LEAD MACHINIST WHOM STATED PATIENT RUNS HIGH BUT USUALLY DROPS DURING DIALYSIS AND DID NOT WANT TO MEDICATE AT THIS TIME. ONCE DIALYSIS WAS FINISHED, PO MEDICATIONS WERE GIVEN CHARTED. PATIENT TOLERATED PO MEDICATIONS WITH WATER AND APPLESAUCE WELL. WILL CONTINUE TO TREND BLOOD PRESSURES AND TREAT PRESCRIBED.
--- NOTE | 2021-07-04 13:33 | NUR ---
UPDATE BED BATH COMPLETED, PATIENT BEGAN TO BECOME MORE LETHARGIC. FALLING ASLEEP, VERY WEAK WITH EXTREMITIES. NEURO ASSESSMENT COMPLETE, PATIENT FOLLOWED COMMANDS, ASYMMETRICAL SMILE, EQUAL QUALITATIVE FIELD PROJECT MANAGER BILATERALLY. NOTIFIED DR. REED WHO ALSO ASSESSED PATIENT AT BEDSIDE. CBG RETREIVED AND RESULTED STABLE. HYPERTENSION RESOLVING. PLACED CALL TO DR. CHATTERJEE WITH NO ANSWER AT THIS TIME TO DISCUSS MEDICATION DOSES THAT MIGHT CONTRIBUTE TO LETHARGY. AWAITING RETURN CALL.
--- NOTE | 2021-07-04 15:14 | NUR ---
GLUCOSE REPORTED PATIENT'S CURRENT CBG RESULT TO DR. SNYDER AND PATIENT'S LETHARGY. D10 DISCONTINUED AND DISCONNECTED, METHADONE DECREASED TO 10MG BID FROM 15MG BID. WILL CONTINUE TO MONITOR BLOOD SUGARS FREQUENTLY.
--- NOTE | 2021-07-04 18:09 | NUR ---
SHIFT SUMMARY BEGAN SHIFT WITH D10 INFUSING. CBGS MONITORED EVERY 2 HOURS, PATIENT BECAME MORE ALERT THROUGH MORNING. RECEIVED DIALYSIS AND WAS A/O DURING THAT TIME. TOLERATED PO MEDICATIONS WITH APPLESAUCE AND ATE LUNCH PO WITH RN ASSISTANCE. THROUGH AFTERNOON PATIENT BECAME MORE LETHARGIC, GLUCOSE INCREASING. DR. SNYDER AND DR. REED BOTH NOTIFIED. D10 WAS DISCONTINUED AND METHADONE DOSE DECREASED. PATIENT AWOKE FOR DINNER, ASSISTED TO EAT, PATIENT ASKING FOR A BURGER AND SODA AND WAS PARTICIPATING WITH FEEDING SELF. WITHIN A FEW MINUTES PATIENT BEGAN SHOUTING AND CRYING. STATING SHE WAS PAINFUL ALL OVER. DILAUDID GIVEN, PATIENT DID NOT WANT TO CONTINUE TO EAT AND WOULD START SAYING "WHAT" WHEN ASKED IF SHE COULD CONTINUE TO EAT. PATIENT NOW WITH EYES CLOSED, VITALS STABLE, AWAKENS TO VERBAL STIMULI, DOES NOT OPEN EYES BUT RESPONDS WITH A CLEAR YES OR NO WHEN ASKED QUESTIONS. CONTINUES TO MOAN FREQUENTLY, AND SAYS SHE DOESN'T KNOW WHY SHE IS MOANING/CRYING. DR. REED AWARE OF PATIENT'S CURRENT DISCOMFORTS. CONTINUING TO MONITOR.
--- NOTE | 2021-07-04 22:20 | NUR ---
SHIFT ASSESSMENT ASSUMED CARE OF PT @ 1900, REPORT FROM SAGAR Tellez RN. PT IN BED SLEEPING DURING INTRODUCTION. PT QUITE SOMNOLENT, WILL RESPOND APPROPRIATELY TO VERBAL STIMULI BUT QUICKLY BACK TO SLEEP. WEAK MOVEMENT OF ALL EXTREMITIES. PT DIAPHORETIC, SHEETS AND GOWN CHANGED. FSBS 224. VSS. 1-2LPM O2 VIA NC WHILE SLEEPING, SATS >95%. HOLLINGSWORTH CATH PATENT, DRAINING LIGHT YELLOW URINE. DUE TO PTS SOMNOLENCE, EVENING DOSAGE OF METHADONE NOT GIVEN.
--- NOTE | 2021-07-05 00:41 | NUR ---
UPDATE PTS FINGER STICK BG HAS BEEN DECREASING. DR KELLEY NOTIFIED, NEW ORDERS FOR Q1 CBG AND RESTART OF THE D10 @ 60ML/HR. LAST BG WAS 100 WHEN D10 STARTED. WILL MONITOR GLUCOSE CLOSELY.
[2021-07-05 03:29] LABS: Hematocrit 30.6 % (33.0-51.0); Hemoglobin 9.5 g/dL (11.5-16.0)
[2021-07-05 03:45] LABS: Magnesium, Blood 2.3 mg/dL (1.6-2.4)
[2021-07-05 03:50] LABS: Anion Gap 9 mmol/L (6-16); Blood Urea Nitrogen 29 mg/dL (8-24); Bun/Creatinine Ratio 7.7 (12.0-20.0); CO2, Blood 30 mmol/L (21-32); Calcium, Blood 8.2 mg/dL (8.5-10.1); Chloride, Blood 99 mmol/L (98-108); Creatinine, Blood 3.79 mg/dL (0.40-1.00); Glomerular Filtration Rate 13 (60-); Glucose, Blood 97 mg/dL (70-99); Potassium, Blood 3.5 mmol/L (3.5-5.5); Sodium, Blood 138 mmol/L (136-145)
--- NOTE | 2021-07-05 06:49 | NUR ---
SHIFT SUMMARY PT LESS SOMNOLENT THAN BEGINNNING OF SHIFT BUT STILL QUICKLY TO SLEEP WITH DECREASED STIMULI. EVENING METHADONE WAS NOT GIVEN, NO PAIN MEDICATIONS GIVEN THIS SHIFT. PT CONTINUES ON D10 @ 60ML/HR. Q1 CBG'S, 0600 CBG WAS 78. NO OTHER ACUTE CHANGES DURING THE NIGHT.
--- NOTE | 2021-07-05 09:30 | NUR ---
ASSUMED CARE FROM KRYSTA BERRY PT. ALERT AND ANSWERING SOME QUESTIONS. SPEECH IS GARBLED AT TIMES, VSS THIS AM. PT ASKING FOR PAIN MEDICATION THIS AM. PT FINISHED BREAKFAST AND GIVEN A BED BATH WITH ASSIST FROM FORM STRIPPER. PT. CONTINUES WITH CENTRAL LINE IN PLACE, DIFFICULT IV ACCESS AND D10 INFUSING FOR FREQUENT HYPOGLYCEMIC EPISODES. CALL LIGHT IN REACH.
--- NOTE | 2021-07-05 11:29 | NUR ---
PT TO CT
--- NOTE | 2021-07-05 12:43 | NUR ---
CALL TO DR. BISHOP REGARDING INCREASING BG. ORDER TO STOP D10 AT THIS TIME. PT IS TOLERATING SOME PO FOOD AND FLUIDS, REMAINS SLEEPY AT TIMES. COVERAGE FOR LUNCH S/S HELD PER DR. BISHOP AND WILL REASSESS TO SEE IF BG REMAINS STABLE.
--- NOTE | 2021-07-05 17:09 | NUR ---
SHIFT SUMMARY PT. SLEEPING T/O MOST OF SHIFT DIFFICULT TO AWAKEN AT TIMES. PT. TAKEN FOR HEAD CT TODAY. WHEN AWAKE PT MOANING. D10 GTT DCD THIS SHIFT, AND CONTINUING TO SPOT CHECK BG. CENTRAL LINE REMOVED THIS SHIFT, POWER GLIDE PLACED TO [id number]. PT. SPEECH REMAINS DIFFICULT TO UNDERSTAND AT TIMES. PT DOES WAKE UP FOR MEALS. HOWEVER VERY FORGETFUL. VSS AT THIS TIME. HOLLINGSWORTH DRAINING TO GRAVITY. REPORT TO ONCOMING RN.
--- NOTE | 2021-07-05 21:24 | NUR ---
ASSUMED CARE AT 1900 PATIENT IS AWAKE BUT LETHARGIC, ABLE TO STATE SHE IS IN THE HOSPTIAL BUT UNABLE TO STATE HER NAME, THE YEAR, OR WHAT CITY SHE IS IN. NONSENSICLE AND MOANS/YELLS OUT AT TIMES. EQUAL STRENGTH IN ALL EXTREMETIES. 02 SATS 100% ON 2L VIA NC, 02 SATS DROP WHILE SLEEPING. HR SR @80s, BP STABLE. DENIES CP/PREESURE. HOLLINGSWORTH DRAINING CLEAR YELLOW. PATIENT REFUSING TO TAKE A DRINK AND UNABLE TO GIVE PO MEDS. PATIENT REPOSITIONED AND ORAL CARE PROVIDED. CALL LIGHT IN REACH. SEE SHIFT ASSESSMENT FOR MORE DETAIL.
[2021-07-06 04:16] LABS: Hematocrit 30.5 % (33.0-51.0); Hemoglobin 9.8 g/dL (11.5-16.0)
[2021-07-06 04:33] LABS: Anion Gap 9 mmol/L (6-16); Blood Urea Nitrogen 37 mg/dL (8-24); Bun/Creatinine Ratio 7.5 (12.0-20.0); CO2, Blood 28 mmol/L (21-32); Calcium, Blood 8.4 mg/dL (8.5-10.1); Chloride, Blood 100 mmol/L (98-108); Creatinine, Blood 4.92 mg/dL (0.40-1.00); Glomerular Filtration Rate 9 (60-); Glucose, Blood 138 mg/dL (70-99); Magnesium, Blood 2.4 mg/dL (1.6-2.4); Phosphorus, Blood 7.1 mg/dL (2.5-4.9); Potassium, Blood 3.6 mmol/L (3.5-5.5); Sodium, Blood 137 mmol/L (136-145)
--- NOTE | 2021-07-06 06:39 | NUR ---
SHIFT SUMMARY PATIENT REMAINS ALERT BUT CONFUSED, NONSENSICLE SPEECH, AND FORGETFULL. DIFFICULT TO REDIRECT. 02 SATS 100% ON 2L VIA NC, DESTATS AT TIMES WHILE SLEEPING. HR SR 70-80s. BP STABLE. HOLLINGSWORTH DRAINING CLEAR YELLOW. PO MEDS HELD, PATIENT UNABLE TO FOLLOW SPECIFIC COMMANDS, WHEN GIVEN A DRINK SHE WOULD REFUSE BUT SAY SHE WANTED A DRINK, ASPIRATION RISK. ASSISTANCE WITH TURNING Q2 HOURS. CALL LIGHT IN REACH.
--- NOTE | 2021-07-06 09:27 | NUR ---
METHADONE HELD THIS MORNING UNTIL DISCUSSING IT WITH MD BECAUSE OF PT'S AMS. PT OPENS EYES AND IS ALERT, BUT IS VERY DELAYED IN HER RESPONSES, APPEARS TO HAVE TROUBLE FINDING WORDS, HAS TROUBLE FOLLOWING ANYTHING MORE THAN SIMPLE DIRECTIONS. SHE SWALLOWED HER PILLS OK AND WAS ABLE TO FEED HERSELF BEFORE SPEECH SAW HER. DISCUSSED THIS WITH DR. MANLEY AND HE SAID TO GIVE METHADONE THIS AM SINCE IT WAS HELD LAST NIGHT TO AVOID WITHDRAWAL. PT IS AT A REDUCED DOSE THAN HER NORM. HE ALSO GAVE OK FOR PT TO BE MED TELE STATUS. PT AT DIALYSIS CURRENTLY.
--- NOTE | 2021-07-06 12:51 | NUR ---
REASSESSMENT PT CONTINUES TO BE VERY SLOW IN HER RESPONSES AND HAVING DIFFICULTY TALKING. SHE IS ALERT AND FOLLOWS SIMPLE COMMANDS. LUNGS ARE CLEAR, RA, SR, BP HIGH FOLLOWING DIALYSIS. HOLLINGSWORTH WITH CL YELLOW URINE. EATING LUNCH CURRENTLY. PT'S MOM CALLED AND WAS GIVEN UPDATE. CONTINUING TO MONITOR.
--- NOTE | 2021-07-06 12:58 | NUR ---
DIALYSIS DR CASTANEDA SAID HE IS NOT PLANNING DIALYSIS FOR THIS PT TOMORROW. HE'S EDAMA IS DOWN, HE IS PRODUCING URINE (THE COLOR IS GOOD),
--- NOTE | 2021-07-06 16:38 | NUR ---
TRANSFER REPORT CALLED TO [facility] ON MEDICAL FLOOR. TRANSPORT HERE TO TAKE PT FOR CT AND THEN WILL TAKE PT UPSTAIRS. ALL BELONGINGS SENT UPSTAIRS TO NEW ROOM.
--- NOTE | 2021-07-06 17:00 | NUR ---
REPORT RECEIVED FROM BEVERLY BERRY. PT ARRIVED TO ROOM [address] PT ALERT ABLE TO ANSWER QUESTIONS APPROPRIATELY. TELE NOIFIED OF [place]. PT ST AT 103. PT IS IN NO APPARENT DISTRESS, RR E/U. PT ORIENTED TO ROOM/CALL LIGHT/FALL RISK. BED IN LOW POSITION AND BED ALARM ON, CALL LIGHT IN REACH. PT DENIES NEEDS AT THIS TIME. HEELS FLOATED.
--- NOTE | 2021-07-06 18:11 | NUR ---
SHIFT SUMMARY: PT RESTING WITH EYES SHUT RR E/U AT THIS TIME. SHE AWOKE EASILY BUT WAS NOT ABLE TO STAY AWAKE TO EAT DINNER OR GIVE RENVELA. WILL REPORT ON TO ONCOMING RN.
--- NOTE | 2021-07-06 20:41 | NUR ---
PT CBG 54 PER FRONT END LOADER OPERATOR, ASYMPROMATIC. NO D50 OR D5 ORDRED - BP ELEVATED, ON DIALYSIS. MD NOTIFIED. ORDERS FOR D5 500 CC AND HOLD INSULIN TONIGHT. TOLERATES PO OJ WITH SUGAR. WILL RE CHECK IN 1/2 - 1 HR
--- NOTE | 2021-07-06 22:18 | NUR ---
PO OJ WITH SUGAR EFFECTIVE. CBG 87. MORE ALERT. WILL MONITOR. HOLDING IVF BP IS ELEVATED
--- NOTE | 2021-07-07 03:14 | NUR ---
DOCK PUMPER SUMMARY TTE DONE AT SHIFT START. TOLERATED WELL. SOMEWHAT SLUGGISH LATER BUT ASYMPTOMATIC. CBG WAS 54. MD NOTIFIED AND ORDERS TO HOLD ALL INSULIN THAT HS AND TO GIVE D5 IV (PHARM REPORTED NO D50), BUT BP QUITE ELEVATED. FLUIDS OF OJ WITH SUGAR GIVEN. EFFECTIVE, CBG WAS 87 LATER, ABLE TO VERBALIZE MORE AND EVEN LATER, CBG 204. D5 HELD DUE TO POSSIBLE FLUID OVERLOAD. RESTING QUIETLY AT THIS TIME. DIFFICULTIES FINDING WORDS CONTINUES WAS NOTED ON PREVIOUS SHIFT. CALL LIGHT IN REACH
[2021-07-07 05:44] LABS: Hematocrit 33.8 % (33.0-51.0); Hemoglobin 10.5 g/dL (11.5-16.0)
[2021-07-07 05:59] LABS: Source, Urine Foley catheter
[2021-07-07 06:08] LABS: Albumin, Blood 1.9 g/dL (3.4-5.0); Anion Gap 6 mmol/L (6-16); Blood Urea Nitrogen 25 mg/dL (8-24); Bun/Creatinine Ratio 6.4 (12.0-20.0); CO2, Blood 31 mmol/L (21-32); Calcium, Blood 8.9 mg/dL (8.5-10.1); Chloride, Blood 104 mmol/L (98-108); Creatinine, Blood 3.91 mg/dL (0.40-1.00); Glomerular Filtration Rate 12 (60-); Glucose, Blood 144 mg/dL (70-99); Magnesium, Blood 2.6 mg/dL (1.6-2.4); Phosphorus, Blood 5.6 mg/dL (2.5-4.9); Sodium, Blood 141 mmol/L (136-145)
[2021-07-07 06:13] LABS: Appearance, Urine Clear (Clear); Bilirubin, Urine Neg (Neg); Blood, Urine Neg (Neg); Color, Urine Yellow (P-Yellow); Glucose Qualitative, Urine 3+ (Neg); Ketones, Urine 1+ (Neg); Leukocyte Esterase, Urine Neg (Neg); Nitrite, Urine Neg (Neg); Protein, Urine 3+ (Neg); Specific Gravity, Urine 1.015 (1.003-1.022); Urobilinogen, Urine NORM (Normal)
[2021-07-07 06:27] LABS: Red Blood Cells, Urine 0-2 /hpf (0-2)
[2021-07-07 06:28] LABS: Bacteria Not Seen /hpf; Squamous Epithelial Cells Few /hpf (Few)
--- NOTE | 2021-07-07 10:02 | NUR ---
PT AWAKE AND ANSWERING QUESTIONS EARLY THIS AM AT SHIFT CHANGE BUT HAS BEEN DIFFICULT TO KEEP AWAKE SINCE THIS AM. SHE WILL AWAKE TO VERBAL STIMULI BUT CLOSES HER EYES AND STARTS SNORING AGAIN. UNABLE TO KEEP HER AWAKE LONG ENOUGH TO EAT BREAKFAST OR TAKE HER MEDICATIONS. HELD INSULIN GLARGINE THIS AM DUE TO LOW BS OF 54 REPORTED BY NOC RN AND SHE IS NOT EATING WELL. PT ORAL MEDICATIONS HELD DUE TO RISK FOR ASPIRATION DUE TO LETHARGY. RR E/U AT 18/MIN, LIGHTLY SNORING. BS 142 THIS AM. NO APPARENT DISTRESS AT THIS TIME. WILL CHECK VITALS AGAIN IF PT REMMAINS LETHRGIC.
--- NOTE | 2021-07-07 10:46 | NUR ---
PT AWOKE AND STAYED AWAKE WITH REPOSITIONING, CATH CARE AND PARTIAL BATH. PT ALERT ENOUGH TO TAKE HER ORAL MEDICATIONS AT THIS TIME. GAVE THEM WITH APPLESAUCE. SHE WAS ABLE TO EAT THE WHOLE CONTAINER OF APPLESAUCE AND DRINK SOME WATER AND SPRITE. PT RESPONDS TO YES/NO QUESTIONS BUT DOES NOT RESPOND TO QUESTIONS SUCH "WHAT IS YOUR NAME AND ?" DOES NOT APPEAR TO HAVE ANY SYMPTOMS OF DISTRESS. CONTINUED TO HOLD INSULIN GLARGINE AND METHADONE AT THIS TIME.
--- NOTE | 2021-07-07 12:31 | NUR ---
DISCUSSED PT LETHARGY WITH DR. MANLEY. DR. MANLEY GAVE ORDER TO HOLD METHADONE TONIGHT AND TO CHECK VBG BY THREE PM IF LETHARGY CONTINUES. HOLD PLACED ON METHADONE PER VO.
[2021-07-07 14:31] LABS: Base Excess Venous 6.1 mmol/L; Bicarbonate Venous 29.3 mmol/L (24.0-30.0); PCO2 Venous 44.5 mmHg (38-42); PO2 Venous 111 mmHg (38-42); pH Blood Venous 7.44 (7.34-7.37)
--- NOTE | 2021-07-07 14:46 | NUR ---
DR. BISHOP NOTIFIED OF VBG RESULTS AND PT CONTINUES TO BE LETHARGIC. NO NEW ORDERS OTHER THAN TO CONTINUE TO MONITOR PT FOR CHANGES. CONTINUE TO HOLD METHADONE.
--- NOTE | 2021-07-07 18:11 | NUR ---
SHIFT SUMMARY: PT A/O TO SELF ONLY AND SHE KNOWS SHE IS IN THE HOSPITAL BUT CAN'T STATE WHAT CITY OR THE DATE IS. SHE RESPONDS TO HER NAME BUT WHEN ASKED HER AND NAME SHE STATES "I CAN'T REMEMBER". PT HAS BEEN RESTING WITH EYES SHUT RR E/U LIGHTLY SNORING THROUGHOUT THE DAY. THROUGHOUT THE DAY WAS ABLE TO AROUSE WITH VERBAL STIMULI OR GENTLE STERNAL RUB, BUT WAS NOT ABLE TO STAY AWAKE LONG. SHE ONLY ATE BITES OF LUNCH BEFORE BECOMING TOO LETHARGIC TO EAT ANYMORE. SHE DID BECOME FULLY AWAKE AT DINNER TIME STAYING AWAKE ENOUGH TO TAKE HER MEDICATIONS AND FEED HERSELF SOME DINNER. SHE DID NOT HAVE ANY CHOKING EPISODES. SHE DID HAVE TROUBLE SWALLOWING LARGE PILLS. WILL RECOMMEND LARGE PILLS BE CRUSHED IF ABLE. PT ON TELE REMAINED NSR IN 70'S WHEN CHECKED ON. NO S/S OF PAIN DESPITE HOLDING METHADONE. PT PRODUCING CLEAR LIGHT GREEN COLORED URINE.
--- NOTE | 2021-07-07 21:41 | NUR ---
CBG 424 AT , ORDERS 5U OF HUMALOG AND CALL MD. INSULIN GIVEN, CALL PLACED TO MD - SEE MAR FOR DETAILS
--- NOTE | 2021-07-08 03:54 | NUR ---
VAMP CUT OUT WORKER SUMMARY MORE VERBAL AT SHIFT COMMENCE THAN NOTED 24 HR PREVIOUS. AM SHIFT REPORTED METHADONE WAS DISCONTINUED. PT DISPLAYING ABILITY TO VOICE/USE MORE WORDS THAN 24 HR PREVIOUS. TOLERATING MEDS WITH APPLESAUCE. DIET CHANGED TO SOFT, CVA/FINGER FOODS SHE WAS HAVING TROUBLE SWALLOWING PREVIOUS DIET. CBG OVER 400 AT NOTIFIED AND ONE TIME 15U LONG ACTING INSULIN ORDERED/GIVEN. HAS BEEN AWAKE AT INTERVALS, OCCASIONAL CALLING OUT, BUT NO NOTED S/S DISTRESS. MOTED SMALL SKIN OPENINGS OF BILAT HEELS, SEE PICS IN CHART. HEEL DRESSINGS APPLIED FOR PROTECTION. CALL LIGHT IN REACH. HOB REMAINS ELEVATED FOR COMFORT.
[2021-07-08 06:11] LABS: Hematocrit 34.2 % (33.0-51.0); Hemoglobin 10.6 g/dL (11.5-16.0)
[2021-07-08 06:33] LABS: Albumin, Blood 2.1 g/dL (3.4-5.0); Anion Gap 12 mmol/L (6-16); Blood Urea Nitrogen 37 mg/dL (8-24); Bun/Creatinine Ratio 7.7 (12.0-20.0); CO2, Blood 25 mmol/L (21-32); Calcium, Blood 9.1 mg/dL (8.5-10.1); Chloride, Blood 100 mmol/L (98-108); Creatinine, Blood 4.83 mg/dL (0.40-1.00); Glomerular Filtration Rate 10 (60-); Glucose, Blood 212 mg/dL (70-99); Magnesium, Blood 2.5 mg/dL (1.6-2.4); Phosphorus, Blood 6.7 mg/dL (2.5-4.9); Potassium, Blood 4.4 mmol/L (3.5-5.5); Sodium, Blood 137 mmol/L (136-145)
[2021-07-08 11:15] LABS: Glucose (ISTAT POC) 514 mg/dL (70-99)
[2021-07-08 11:15] LABS: Glucose (ISTAT POC) 553 mg/dL (70-99)
--- NOTE | 2021-07-08 18:10 | NUR ---
SHIFT SUMMARY: PT WAS MUCH MORE ALERT THROUGHOUT THE DAY. PT BEGAN HER DAY AWAKE BUT MOANING CONSTANTLY. PERCOCET GIVEN PER ORDER AND WAS EFFECTIVE IN TREATING PAIN T/OUT THE WHOLE DAY. PT NOTED TO HAVE RED HARD SPOT ON RLE AND DR NOTIFIED. AWAITING ULTRASOUND. PT ABLE TO ANSWER SIMPLE QUESTIONS BUT UNABLE TO TELL ME HER NAME AND . SHE DOES TELL ME SHE IS IN THE HOSPITAL. WHEN EATING SHE TRIED FEEDING HERSELF BUTTER CONTAINERS AND CREAMER CONTAINERS. SHE IS UNABLE TO USE SPOON APPROPRIATELY. HAD SPEECH EVAL AND SHE WAS CHANGED TO PUREE DIET/FEEDER. PT BS BETTER CONTROLLED TODAY. SHE IS EATING MORE AND PARTICIPATING IN THERAPY SESSIONS BUT HAVING HARD TIME FOLLOWING COMMANDS. PT DID GIVE ME PERMISSION TO CALL HER MOTHER JAN TO SEE IF JAN CAN COME IN. PER DR. MANLEY INSTRUCTIONS HE WANTED TO GIVE UPDATE IN PERSON. I CALLED JAN AND SHE IS AWARE OF DAUGHTER IN HOSPITAL BUT UNABLE TO COME IN DUE TO TRAVEL TO [place]. SHE PREFERRED CALL FROM PROVIDER. I DID INFORM DR. BISHOP OF REQUEST. I ALSO ASSISTED ALLAN WITH CALLING JAN ON ROOM PHONE AND SHE SPOKE TO HER ON THE PHONE. PT REPORTED TO ME SHE LOVES HER MOM AND STEP DAD AND SHE TRUSTS THEM. HOLLINGSWORTH CATHETER WAS REMOVED AROUND 15:30 TODAY, NO URINE OUTPUT OF 1800. PT RESTING IN BED WATCHING TV. SHE APPEARS COMFORTABLE. BED IN LOW POSITION, CALL LIGHT IN REACH, BED ALARM ON.
--- NOTE | 2021-07-08 18:48 | NUR ---
LATE ENTRY: LEFT MESSAGE WITH DR. CASTANEDA AT [id number] REQUESTING HE CHANGE RENVELA TO A MEDICATION PT CAN SWALLOW DUE PT HAVING DIFFICULTY SWALLOWING MEDICATION WHOLE. NO RETURN CALL AT THIS TIME. WILL REPORT OFF TO NOC RN.
--- NOTE | 2021-07-09 05:20 | NUR ---
SHIP PILOT SUMMARY PT IS MAKING MORE SENSE BUT STILL UNABLE TO STATE HER NAME/. CAN FOLLOW SOME COMMANDS. PT GETS FRUSTRATED WITH QUESTIONS AND IS TRYING TO COMMUNICATE/SEARCH FOR WORDS. MOANS AND CALLS OUT WHEN IN PAIN. STATES HER PAIN IS IN HER TEETH AND "EVERYWHERE"/PAIN CONTROLLED W/PRN MEDS THROUGH THE NIGHT. EDEL AGUILA DURING THE DAY. CHANGED URINE SOILED ATTENDS. NO BM FOR 4+ DAYS. INTAKE IS POOR. DIET CHANGED TO PUREE. PT TOOK BITES OUT OF A CUP AND CHEWED A STRAW. GAVE LONG ACTING INSULIN AT BEDTIME. PT HX OF HTN, DT2, AND ESRD. GAVE PRN LABETALOL (IN ADDITION TO REGULAR BP MEDS) F/BP 186/82. UNBLANCHABLE REDNESS ON HEELS. FLOATING W/NECK PILLOWS. SWOLLEN RED HARD AREA ON LOWER RIGHT EXTREMITY. ULTRASOUND SCHEDULED 07/09. PT UNABLE TO MAKE NEEDS KNOWN CONSISTENTLY. CALL LIGHT IN REACH. ROUNDED ON PATIENT IN REGULAR INTERVALS. CRUSHED MEDS AND PUT IN APPLESAUCE. PT UNABLE TO SWALLOW WHOLE MEDS.
[2021-07-09 05:23] LABS: BASOPHILS ABSOLUTE AUTO 0.08 K/mm3 (0.00-0.23); BASOPHILS PERCENT AUTO 1 % (0-2); EOSINOPHILS ABSOLUTE AUTO 0.31 K/mm3 (0.00-0.68); EOSINOPHILS PERCENT AUTO 2 % (0-6); Hematocrit 33.5 % (33.0-51.0); Hemoglobin 10.2 g/dL (11.5-16.0); IMMATURE GRAN ABSOLUTE AUTO 0.15 K/mm3 (0.00-0.10); IMMATURE GRAN PERCENT AUTO 1 % (0-1); LYMPHOCYTES ABSOLUTE AUTO 1.36 K/mm3 (0.84-5.20); LYMPHOCYTES PERCENT AUTO 10 % (21-46); MONOCYTES PERCENT AUTO 15 % (4-13); Mean Corpuscular HGB 30.3 pg (26.0-34.0); Mean Corpuscular HGB Conc 30.4 g/dL (31.5-36.5); Mean Corpuscular Volume 99 fL (80-100); Mean Platelet Volume 10.5 fL (9.1-12.4); NEUTROPHILS ABSOLUTE AUTO 9.15 K/mm3 (1.96-9.15); NEUTROPHILS PERCENT AUTO 70 % (41-73); Platelet Count 662 K/mm3 (150-400); RDW Standard Deviation 50.7 fL (35.1-46.3); Red Blood Cell Count 3.37 M/mm3 (3.80-5.20); White Blood Cell Count 13.05 K/mm3 (4.00-11.30)
[2021-07-09 05:47] LABS: Albumin, Blood 2.2 g/dL (3.4-5.0); Anion Gap 9 mmol/L (6-16); Blood Urea Nitrogen 21 mg/dL (8-24); Bun/Creatinine Ratio 5.5 (12.0-20.0); CO2, Blood 30 mmol/L (21-32); Calcium, Blood 8.8 mg/dL (8.5-10.1); Chloride, Blood 100 mmol/L (98-108); Creatinine, Blood 3.84 mg/dL (0.40-1.00); Glomerular Filtration Rate 13 (60-); Glucose, Blood 54 mg/dL (70-99); Magnesium, Blood 2.3 mg/dL (1.6-2.4); Phosphorus, Blood 5.6 mg/dL (2.5-4.9); Potassium, Blood 3.8 mmol/L (3.5-5.5); Sodium, Blood 139 mmol/L (136-145)
--- NOTE | 2021-07-09 18:20 | NUR ---
SHIFT SUMMARY PT SLEEPING MOST OF SHIFT BUT A VISITOR CAME IN FOR SHORT TIME AND PT AROUSED AND SPOKE WITH VISITOR AND STAYED MOSTLY AWAKE FOR REMAINDER OF SHIFT. UNABLE TO VERBALIZE HER DATE OF OR NAME THIS MORNING AND HAS CONTINUED TO BE UNABLE TO DO THAT THIS AFTERNOON/EVENING. SHE ASKED WHAT WAS GOING ON WITH HERSELF AND IT WAS EXPLAINED SHE HAD A STROKE. RECEIVED A PHONE CALL IN WHICH SHE WAS ABLE TO REPEAT THAT PIECE OF INFORMATION TO THE CALLER. MOTHER CALLED AND REPORTED SHE GENERALLY USES A CPAP AT HOME.
--- NOTE | 2021-07-10 03:42 | NUR ---
patient with HTN overnight. BP medications given. CPAP set up and applied. Patient tolerated well. Patient turned. No acute skin issues noted. Patient incont of urine. Attends in place. Patient with known expressive aphagia. This makes comminication difficult at times. Midline IV patent.
[2021-07-10 05:15] LABS: BASOPHILS ABSOLUTE AUTO 0.08 K/mm3 (0.00-0.23); BASOPHILS PERCENT AUTO 1 % (0-2); EOSINOPHILS ABSOLUTE AUTO 0.47 K/mm3 (0.00-0.68); EOSINOPHILS PERCENT AUTO 4 % (0-6); Hematocrit 32.3 % (33.0-51.0); Hemoglobin 10.1 g/dL (11.5-16.0); IMMATURE GRAN ABSOLUTE AUTO 0.14 K/mm3 (0.00-0.10); IMMATURE GRAN PERCENT AUTO 1 % (0-1); LYMPHOCYTES ABSOLUTE AUTO 0.91 K/mm3 (0.84-5.20); LYMPHOCYTES PERCENT AUTO 8 % (21-46); MONOCYTES ABSOLUTE AUTO 1.49 K/mm3 (0.16-1.47); MONOCYTES PERCENT AUTO 13 % (4-13); Mean Corpuscular HGB 31.1 pg (26.0-34.0); Mean Corpuscular HGB Conc 31.3 g/dL (31.5-36.5); Mean Corpuscular Volume 99 fL (80-100); NEUTROPHILS ABSOLUTE AUTO 8.84 K/mm3 (1.96-9.15); NEUTROPHILS PERCENT AUTO 74 % (41-73); Platelet Count 550 K/mm3 (150-400); RDW Coefficient Variation 13.8 % (11.7-14.2); RDW Standard Deviation 50.4 fL (35.1-46.3); Red Blood Cell Count 3.25 M/mm3 (3.80-5.20); White Blood Cell Count 11.93 K/mm3 (4.00-11.30)
[2021-07-10 05:49] LABS: Albumin, Blood 2.2 g/dL (3.4-5.0); Anion Gap 13 mmol/L (6-16); Blood Urea Nitrogen 35 mg/dL (8-24); Bun/Creatinine Ratio 7.5 (12.0-20.0); CO2, Blood 23 mmol/L (21-32); Calcium, Blood 8.7 mg/dL (8.5-10.1); Chloride, Blood 94 mmol/L (98-108); Creatinine, Blood 4.69 mg/dL (0.40-1.00); Glomerular Filtration Rate 10 (60-); Glucose, Blood 500 mg/dL (70-99); Magnesium, Blood 2.3 mg/dL (1.6-2.4); Phosphorus, Blood 6.7 mg/dL (2.5-4.9); Potassium, Blood 5.6 mmol/L (3.5-5.5); Sodium, Blood 130 mmol/L (136-145)
[2021-07-10 08:08] LABS: Glucose, Blood 615 mg/dL (70-99)
--- NOTE | 2021-07-10 19:06 | NUR ---
SHIFT SUMMARY PT NONVERBAL BUT MOANING THIS MORNING AFTER RETURNING FROM DIALYSIS. MD IN ROOM AND PT STARTED TO SLOWLY VERBALLY RESPOND TO QUESTIONS. WOULDN'T MOVE HER HEAD TO THE RIGHT WITHOUT MULTIPLE VERBAL CUES BUT STILL WOULD ONLY LOOK FORWARD AND NOT TO THE RIGHT. SPEECH INCREASED AFTERNOON PROGRESSED. MOTHER CALLED HER AND SPOKE WITH HER AND PT APPEARED TO GET UPSET ABOUT CONVERSATION AND WAS ABLE TO MAKE SIMPLE SENTENCES AT TIMES WHILE ON PHONE. HAS BEEN AWAKE SINCE RETURN FROM DIALYSIS. INCONTINENT OF URINE 2 TIMES TODAY. ATE WELL FOR LUNCH BUT MADE FACES AND SAID NO TO ANY FOOD OPTIONS ON DINNER PLATE.
--- NOTE | 2021-07-11 04:42 | NUR ---
Patient with VSS on RA overnight. Moderate HTN but did not require PRN HTN medications. Skin inspection reveals no acute skin issues. Turned Q2 hrs. CPAP worn overnight. INcontinent of urine, attends in place. Patient able to take pills whole with applesauce overnight.
[2021-07-11 05:01] LABS: Hematocrit 33.7 % (33.0-51.0); Hemoglobin 10.3 g/dL (11.5-16.0)
[2021-07-11 05:48] LABS: Albumin, Blood 2.3 g/dL (3.4-5.0); Anion Gap 11 mmol/L (6-16); Blood Urea Nitrogen 26 mg/dL (8-24); Bun/Creatinine Ratio 6.7 (12.0-20.0); CO2, Blood 29 mmol/L (21-32); Calcium, Blood 9.1 mg/dL (8.5-10.1); Chloride, Blood 96 mmol/L (98-108); Creatinine, Blood 3.89 mg/dL (0.40-1.00); Glomerular Filtration Rate 12 (60-); Glucose, Blood 248 mg/dL (70-99); Magnesium, Blood 2.5 mg/dL (1.6-2.4); Phosphorus, Blood 6.1 mg/dL (2.5-4.9); Potassium, Blood 4.4 mmol/L (3.5-5.5); Sodium, Blood 136 mmol/L (136-145)
--- NOTE | 2021-07-11 17:59 | NUR ---
SHIFT SUMMARY PT AWAKE MOST OF THE DAY. DID START MOANING THIS AFTERNOON A LOT REPORTING "NOT FEELING VERY GOOD". TYLENOL GIVEN AND REPOSITIONED AND TV TURNED ON AND PT DOZED OFF. WORKED WITH PT AND OT AND WAS ABLE TO STAND. APPEARS OVER LAST FEW DAYS THAT SPEECH IS SLOW TO START IN THE MORNINGS BUT SHE DOES BECOME MORE VERBAL THE DAY PROGRESSES. ABLE TO ASK FOR "THAT TO BE TURNED ON" POINTING TO THE TV BUT WAS UNABLE TO VERBALIZE WHAT STATION. EATING BETTER TODAY WELL. BOWEL CARE STARTED.
--- NOTE | 2021-07-12 03:58 | NUR ---
Patient with VSS on RA overnight. CPAP on at beginning of shift. Patient awake and conversive aroudn midnight, cpap revomed. Patient able to turn herself for brief changes tonight. Able to feed herself clarisse crakers but unable to feed herself yogurt. assistance provided. No acute skin issues noted.
[2021-07-12 05:51] LABS: Hematocrit 33.5 % (33.0-51.0); Hemoglobin 10.8 g/dL (11.5-16.0)
[2021-07-12 06:14] LABS: Albumin, Blood 2.3 g/dL (3.4-5.0); Anion Gap 12 mmol/L (6-16); Blood Urea Nitrogen 38 mg/dL (8-24); Bun/Creatinine Ratio 7.9 (12.0-20.0); CO2, Blood 27 mmol/L (21-32); Calcium, Blood 8.9 mg/dL (8.5-10.1); Chloride, Blood 93 mmol/L (98-108); Creatinine, Blood 4.84 mg/dL (0.40-1.00); Glomerular Filtration Rate 10 (60-); Glucose, Blood 394 mg/dL (70-99); Magnesium, Blood 2.5 mg/dL (1.6-2.4); Phosphorus, Blood 5.8 mg/dL (2.5-4.9); Potassium, Blood 4.5 mmol/L (3.5-5.5); Sodium, Blood 132 mmol/L (136-145)
--- NOTE | 2021-07-12 11:15 | NUR ---
Telephone report from Rigo.
--- NOTE | 2021-07-12 11:18 | NUR ---
PATIENT HAD ELEVATED CBG TODAY AT 406 NOTIFIED AND ORDER FOR MED SC INSULIN NOW AND 8 UNITS HUMULOG. PATIENT WAS RESPONSIVE TO VERBAL STIMULI ABLE TO TAKE HER PILLS WHOLE WITH WATER. PATIENT RAPID RESPONSE DURING DIALYSIS PULSE DROPPED INTO THE 30'S PATIENT UNRESPONSIVE. THIS RN AND STUDENT NURSE MARIANA GO TO ASSIST IN DIALYSIS. NOTIFIED VIA TELEPHONE AND HE COMES TO DIALYSIS. PATIENT HAD EPISODE OF VERY LOW BP AT 47/29 AND RECOVERED QUICKLY TO 149/78. ORDER FOR PATIENT TO TRANSFER TO PCU. THIS RN SPOKE WITH ALICIA BERRY IN PERSON AND ALSO CALLED WITH REPORT TO HER ON THIS PATIENT 30 MINUTES LATER.
[2021-07-12 11:46] LABS: Base Excess Venous 8.7 mmol/L; Bicarbonate Venous 31.2 mmol/L (24.0-30.0); PCO2 Venous 48.9 mmHg (38-42); PO2 Venous 51.8 mmHg (38-42); pH Blood Venous 7.44 (7.34-7.37)
--- NOTE | 2021-07-12 12:19 | NUR ---
Pt is waking up more, vocalizing while being turned , opening her eyes spontaneously and making purposeful movements of her arms. No discernable words yet. Spo2 dropped to 86% during repositioning/turning to her side at which time she was moaning quite a bit. Oxygen delivery started at 2 l/min and spo2 improved to 100%. She is still sleepy, so she is being put on the CPAP by RT Riggs at this time.
--- NOTE | 2021-07-12 12:26 | NUR ---
Tolerating the CPAP at this time. Repositioned to her left side; photos taken of heels and right lower leg discoloration for chart photo documentation. Pericare completed as she was incontinent of urine.
--- NOTE | 2021-07-12 15:10 | NUR ---
Pt is awakening spontaneously, using some words but still dysphasic. She is responding with some appropriate words. Also moaning quite a bit but not answering when asked if she is in pain. Pt was repositioned and checked for incontinence. Family (mom, step-dad, sister of patient) at the bedside talking with Dr. Rizo at this time.
--- NOTE | 2021-07-12 15:14 | NUR ---
Noted powerglide is pulled out of the statlock under the intact dressing. Attempted to change the stat-lock and dressing, however after multiple attempts and repositioning of the right arm the IV was not patent; unable to flush it at all. Discontinued at this time.
--- NOTE | 2021-07-12 17:01 | NUR ---
2 attempts at IV restart, unsuccessful. Pt is still quite sleepy, falls asleep during conversation after working with speech therapist. Changing telemetry patches and noted that the dialysis permacath dressing was not intact. Old dressing removed and area cleansed with chlorihexidine, dried with sterile gauze and sterile tegederm CHG dressing applied using sterile technique. Pt is sleepy and mumbling occasionaly.
--- NOTE | 2021-07-12 17:46 | NUR ---
tasted the pureed diet and cried after tastes of each item. States it is gross, and asks why can't I eat a hamburger? Did eat the chocolate pudding and drank the milk.
--- NOTE | 2021-07-12 18:59 | NUR ---
pt continues to cry out, sobbing but unable to express what it is that she wants. States "I'm waiting for the stuff" but unable to define this. C/o feeling hot and generalized pain. Medicated with Tylenol and fan provided for comfort; extra blankets were also removed.
[2021-07-13 04:18] LABS: Hematocrit 36.7 % (33.0-51.0); Hemoglobin 11.4 g/dL (11.5-16.0)
[2021-07-13 04:38] LABS: Magnesium, Blood 2.5 mg/dL (1.6-2.4)
[2021-07-13 04:39] LABS: Albumin, Blood 2.5 g/dL (3.4-5.0); Anion Gap 9 mmol/L (6-16); Blood Urea Nitrogen 35 mg/dL (8-24); Bun/Creatinine Ratio 7.2 (12.0-20.0); CO2, Blood 30 mmol/L (21-32); Calcium, Blood 9.3 mg/dL (8.5-10.1); Chloride, Blood 95 mmol/L (98-108); Creatinine, Blood 4.86 mg/dL (0.40-1.00); Glomerular Filtration Rate 10 (60-); Glucose, Blood 150 mg/dL (70-99); Phosphorus, Blood 5.3 mg/dL (2.5-4.9); Potassium, Blood 4.1 mmol/L (3.5-5.5); Sodium, Blood 134 mmol/L (136-145)
--- NOTE | 2021-07-13 05:52 | NUR ---
SHIFT SUMMARY PT ALERT AND ORIENTED TO SELF. CAN STRING TOGETHER SENTENCES AT TIMES. SPEECH OTHERWISE GARBLED. AFEBRILE. HR SR 60-80'S. BP STABLE. ON RA SATS OVER 95%. ON CPAP AT NIGHT. PULLS AT LINES, SPO2 STICKER, AND IV. ON BEDREST, Q2 TURNS. ASLEEP MOST OF NIGHT. BED ALARM ON. NO C/O PAIN OR DISCOMFORT. IN BED SLEEPING WITH CALL ALARM AT SIDE. WILL CONTINUE TO MONITOR UNTIL REPORT GIVEN TO DAYSHIFT RN
--- NOTE | 2021-07-13 07:20 | NUR ---
Vital signs stable. Reyna is sleeping, appears to be comfortable. Awakens to stimuli and falls back to sleep readily. Telemetry shows normal sinus rhythm. Spo2 100% on room air, while lying in bed. Respirations even and unlabored. HOB is elevated at 45 degrees.
--- NOTE | 2021-07-13 11:41 | NUR ---
Pt is sleeping, snoring after receiving a bed bath by the CARCASS TRIMMER and CARCASS TRIMMER student.
--- NOTE | 2021-07-13 15:23 | NUR ---
Reyna awoke this afternoon and was c/o feeling hungry. She ate her late lunch with help of the FISH CONSERVATIONIST. At 1500 she was awake and took scheduled meds. Renvela was given in conjuction with her meal times today. Vital signs taken. She is making some conversation, but after taking her meds she fell back asleep after about 15 minutes. CPAP on after she was sleeping;tolerating it well. Incontinent of urine; turning every 2 hours and pericare for urinary incontinence. No BM today. She cries out when she is uncomfortable; has difficulty specifying her source of discomfort, but was calmed with a warm blanket and minimal adjustments to the bed and pillows. Heels floated above the bed on folded blanket to prevent pressure to noted pressure sores on them.
--- NOTE | 2021-07-13 18:11 | NUR ---
Crying this evening when EDGE INKER UPPERS was feeding her the pureed diet. She wouldn't eat anything except for a few bites of peach puree. Also crying after pericare/repositioning. Tylenol was given and now she is sleeping.
--- NOTE | 2021-07-13 18:28 | NUR ---
Pt CPAP on pt. She awakens slightly; still sleeping.
[2021-07-14 03:58] LABS: Hematocrit 35.6 % (33.0-51.0)
[2021-07-14 04:23] LABS: Albumin, Blood 2.5 g/dL (3.4-5.0); Anion Gap 13 mmol/L (6-16); Blood Urea Nitrogen 49 mg/dL (8-24); Bun/Creatinine Ratio 8.6 (12.0-20.0); CO2, Blood 25 mmol/L (21-32); Calcium, Blood 9.1 mg/dL (8.5-10.1); Chloride, Blood 92 mmol/L (98-108); Creatinine, Blood 5.72 mg/dL (0.40-1.00); Glomerular Filtration Rate 8 (60-); Glucose, Blood 420 mg/dL (70-99); Magnesium, Blood 2.6 mg/dL (1.6-2.4); Potassium, Blood 4.7 mmol/L (3.5-5.5); Sodium, Blood 130 mmol/L (136-145)
--- NOTE | 2021-07-14 05:49 | NUR ---
SHIFT SUMMARY PT ALERT AND ORIENTED. MENTATION IMPROVED FROM LAST NIGHT. ABLE TO CONVERSE, LAST NIGHT UNABLE TO SPEAK MORE THAN A COUPLE SENTENCES. AFEBRILE. ON RA SATS OVER 99%. BP SYSTOLIC 150/160'S. HR SR 80-90'S. ON RA SATS OVER 99%. ON CPAP WHILE SLEEPING. C/O 10/10 PAIN "ALL OVER". CRYING OUT. UNRELIEVED WITH TYLENOL. PT HAS A HX ON METHADONE. X1 15MG DOSE ORDERED, EFFECTIVE. Q2 TURNS. IN BED SLEEPING WITH CALL ALARM AT SIDE, WILL CONTINUE TO MONITOR UNTIL REPORT GIVEN TO DAYSHIFT RN
[2021-07-14 08:01] LABS: Glucose, Blood 576 mg/dL (70-99)
--- NOTE | 2021-07-14 08:49 | NUR ---
MD NOTIFICATION MD notified regarding hyperglycemia, ordered 5 units of insulin to be administered in addition to insulin administered per sliding scale. MD also notified that AM PO medications were unable not to be given d/t pt lethargy.
--- NOTE | 2021-07-14 16:52 | NUR ---
Transfer of Care Pt transferred to medical floor. Report called to receiving RN. Pt remains confused, more alert than this AM. VSS. Afebrile. C/o generalized pain- Tylenol x1. Incontinent with AUO. No BM. Poor PO intake d/t lethargy. Tolerated HD. BG now stabilized since AM hyperglycemia. Frequent rounds to ensure pt safety. Repositioned q2hrs and pressure points offloaded to prevent pressure ulcers. Pt in no apparent distress at time of transfer
--- NOTE | 2021-07-14 18:07 | NUR ---
PT TRANSFERRED TO MEDICAL AT 1700 Pt awake/alert, disoriented to situation. Pt crying out/moaning throughout the evening. C/o pain, reports the pain is everywhere. Pt received tylenol in PCU, unable to give PRN at this time. Pt low grade fever, VSS. INSURANCE SALES ASSISTANT orders Pureed diet, pt upset stated she cannot eat that, she can eat different food at home. Reinforced teaching on INSURANCE SALES ASSISTANT eval. and nurse must follow INSURANCE SALES ASSISTANT orders. Pt upset ate 50% of food, crying out. RT set up CPAP machine & placed pulse ox probe. No facial grimacing, writhing/shifting in bed, restless, or agitation observed. Pt observed to be moaning and groaning. Alternative therapies for pain control offered & declined. only ordered Tylenol PRN pain.
--- NOTE | 2021-07-14 23:37 | NUR ---
RT REPORTS PATIENT REFUSING TO WEAR CPAP. STATING 94% ON CONTINUOUS PULSE OXIMETRY. ROOM AIR.
--- NOTE | 2021-07-15 04:33 | NUR ---
SHIFT SUMMARY PATIENT HAD NO ACUTE CHANGES OBSERVED. AXOX 3 AND BEDREST. PIV REMAINS INTACT. CBG 213. PERMA CATH INTACT. REFUSED TO WEAR CP PER RT. PATIENT STATING 96% ON ROOM AIR WITH CONTINOUS PULSE OXIMETRY MONITOR. PATIENT MOANS AND GROANS AT TIMES. DENIES PAIN, SOB, AND N/V. VSS/AFEBRILE. ABLE TO REST MOST OF THE SHIFT. CALL LIGHT IN REACH. BED IN LOWEST POSITION. WILL CONTINUE TO MONITOR UNTIL DAY SHIFT NURSE ASSUMES CARE.
[2021-07-15 05:05] LABS: Hematocrit 37.5 % (33.0-51.0); Hemoglobin 11.7 g/dL (11.5-16.0)
[2021-07-15 05:30] LABS: Magnesium, Blood 2.7 mg/dL (1.6-2.4)
[2021-07-15 05:44] LABS: Albumin, Blood 2.4 g/dL (3.4-5.0); Anion Gap 15 mmol/L (6-16); Blood Urea Nitrogen 31 mg/dL (8-24); Bun/Creatinine Ratio 6.7 (12.0-20.0); CO2, Blood 26 mmol/L (21-32); Calcium, Blood 9.6 mg/dL (8.5-10.1); Chloride, Blood 100 mmol/L (98-108); Creatinine, Blood 4.63 mg/dL (0.40-1.00); Glomerular Filtration Rate 10 (60-); Glucose, Blood 237 mg/dL (70-99); Phosphorus, Blood 5.5 mg/dL (2.5-4.9); Potassium, Blood 4.1 mmol/L (3.5-5.5)
[2021-07-15 05:45] LABS: Sodium, Blood 141 mmol/L (136-145)
--- NOTE | 2021-07-15 17:01 | NUR ---
END OF SHIFT SUMMARY Pt oriented x2, lethargic, expressive aphagsia, difficult to make needs known. Pt able to express that dislikes the pureed diet, states she won't choke, and is so hungry. LEAD CONSULTANT evaluated pt, updated Aspiration precautions: mechanical soft diet, supervised 1:1 during meals. Today patient was observed to be eating butter containers, and plastic lids. Per LEAD CONSULTANT, encourage pt to feed self, but 1:1 supervision for pt safety. Vitals stable, CBGs uncontrolled, SSI given. Large pills crushed in apple sauce, pt apple to swallow sm pills w/o difficulty. No other concerns at this time.
[2021-07-16 04:53] LABS: Hematocrit 41.8 % (33.0-51.0); Hemoglobin 13.3 g/dL (11.5-16.0)
[2021-07-16 05:14] LABS: Albumin, Blood 2.9 g/dL (3.4-5.0); Anion Gap 9 mmol/L (6-16); Blood Urea Nitrogen 41 mg/dL (8-24); Bun/Creatinine Ratio 7.5 (12.0-20.0); CO2, Blood 31 mmol/L (21-32); Calcium, Blood 10.3 mg/dL (8.5-10.1); Chloride, Blood 95 mmol/L (98-108); Creatinine, Blood 5.45 mg/dL (0.40-1.00); Glomerular Filtration Rate 8 (60-); Glucose, Blood 253 mg/dL (70-99); Magnesium, Blood 2.8 mg/dL (1.6-2.4); Phosphorus, Blood 5.9 mg/dL (2.5-4.9); Potassium, Blood 4.3 mmol/L (3.5-5.5); Sodium, Blood 135 mmol/L (136-145)
--- NOTE | 2021-07-16 08:09 | NUR ---
WHILE TURNING PATIENT NOTED TO BE VERY DIAPHORETIC. BLOOD GLUCOSE DONE, AT THIS SAME TIME PATIENT PULLED HALF OF HIS PERM CATH DRESSING OFF AND WAS TRYING TO PULL THE CATH. MD UPDATED WITH ORDER FOR RESTRAINTS AND ZYPREXA. RESTRAINTS APPLIED DUE TO PATIENT TRYING TO PULL PERM CATH. PERM CATH DRESSING CHANGED. ZYPREXA NOT GIVEN PATIENT DID NOT NEED. BP ALSO ELEVATED 177/88, DR TERRY NOTIFIED WITH ORDERS TO MONITOR.
--- NOTE | 2021-07-16 18:10 | NUR ---
END OF SHIFT SUMMARY Pt had dialysis this morning, morning meds held. Pt returned at 1230, and AM/afternoon meds given. SBP 205, rechecked and pressure now 142/114, HR 101, and Temp is 99.6. Pt had one episode of emesis, IV Zofran given. Pt observed to have expressive aphasgia, diffiuclty communicating. Pt asking about methodone, upset she hasn't received it. RN provided education on the sedating effects of methadone, pt stated "I've been taking it for 10 years, why would they do this to me". Pt insisting on speaking to MD. MD came to assess pt at [facility], and ordered Methadone 5mg, now & scheduled daily. Pt received 5 mg dose, doing well so far, awake/alert, dose not appear sedated. Making conversation with staff and feeding herself dinner. Pts daughter came to visit and thought pt was leaving today. Pts daugther asked if pt was taking "sleeping pills" because of her altered mentation. Provided education to daughter, on cog. deficits d/t CVA. Pt worked with PT today. CBGs 180-333 SSI given.
--- NOTE | 2021-07-17 04:59 | NUR ---
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 PT WAS CALM THROUGHOUT THE NIGHT. GAVE TYLENOL FOR DISCOMFORT AND PT RELIEVED. PT CONTINUES TO HAVE EXPRESSIVE APHASIA AND CONFUSION. SHE IS ABLE TO MAKE HER NEEDS KNOWN SOMETIMES. SHE MOANS WHEN IN PAIN/DISCOMFORT. SHE CAN FOLLOW SOME ORDERS. PT HAS BEEN OBSERVED INGESTING NON-FOOD ITEMS LIKE STRAWS, PACKAGING, AND NAILS. PT CONTINUES TO CHEW ON NAILS ON HER LEFT HAND. PT HAS SKIN REDNESS IN ABDOMEN FOLDS AND ALY AREA. MEPILEX ON BILATERAL HEELS.
[2021-07-17 05:08] LABS: Hematocrit 38.6 % (33.0-51.0)
[2021-07-17 05:34] LABS: Albumin, Blood 2.4 g/dL (3.4-5.0); Anion Gap 7 mmol/L (6-16); Blood Urea Nitrogen 30 mg/dL (8-24); Bun/Creatinine Ratio 7.3 (12.0-20.0); CO2, Blood 33 mmol/L (21-32); Calcium, Blood 9.2 mg/dL (8.5-10.1); Chloride, Blood 97 mmol/L (98-108); Creatinine, Blood 4.11 mg/dL (0.40-1.00); Glomerular Filtration Rate 12 (60-); Glucose, Blood 181 mg/dL (70-99); Magnesium, Blood 2.5 mg/dL (1.6-2.4); Phosphorus, Blood 5.4 mg/dL (2.5-4.9); Potassium, Blood 3.9 mmol/L (3.5-5.5); Sodium, Blood 137 mmol/L (136-145)
--- NOTE | 2021-07-17 19:57 | NUR ---
SHIFT SUMMARY PT SLEEPING AT START OF SHIFT. WOKE FOR CARE AND FOR BREAKFAST. PT AWAKE MOST OF THE DAY, BUT DID SLEEP UNTIL AFTER LUNCH WHEN FAMILY ARRIVED. PT ABLE TO FEED HERSELF WITH SUPERVISION AND DID FAIRLY WELL. PT MOANED FOR A WHILE AT TIMES TODAY, BUT UNABLE TO VERBALIZE WHERE SHE WAS HURTING. NO DIALYSIS TODAY. PT WAS TO D/C TO HOME, BUT DR SNYDER UNABLE TO CONTACT PT'S MOTHER OR GET ANY FAMILY TO CONTACT HER EITHER. SOME FAMILY FINALLY CAME IN [facility], AFTER DR SNYDER WENT HOME. FAMILY INSTRUCTED TO COME IN AM SO DR SNYDER COULD TALK WITH THEM REGARDING PT'S NEEDS AT D/C. FAMILY ABLE TO SET UP PT'S RIDES AND APPOINTMENTS FOR DIALYSIS TODAY, SO PT WOULD BE SET UP WHEN D/C'D HOME. PT TURNED AND CHANGED THRU OUT THE DAY; INCONTINENT OF BOWEL AND BLADDER. PT UNABLE TO TURN HERSELF IN BED, IS ABLE TO USE HER ARMS TO EAT. RESTING QUIETLY AT THIS TIME. CALL LT IN REACH.
--- NOTE | 2021-07-17 22:11 | NUR ---
Late Entry: On 07/09 at 2229. Patient was not given insulin for her 259 blood sugar. The 300 units charted is incorrect.
--- NOTE | 2021-07-18 04:34 | NUR ---
SHIFT SUMMARY PATIENT HAD NO ACUTE CHANGES OBSERVED. AXOX 2-3 WITH EXPRESSIVE APHAGIA. BEDREST. TAKES MEDICATION CRUSHED IN APPLESAUCE. CBG 254. PIV REMAINS INTACT. MOANS AT TIMES DURING ATTENDS CHANGES. PERMA CATH IN CHEST WALL INTACT. DAY RN TO CALL DR SNYDER WHEN FAMILY ARRIVES FOR D/C PLANS. INCONTINENT OF BOWEL AND BLADDER. VSS/AFEBRILE. DENIES SOB AND N/V. CALL LIGHT IN REACH. BED IN LOWEST POSITION. WILL CONTINUE TO MONITOR UNTIL DAY SHIFT NURSE ASSUMES CARE.
[2021-07-18 05:10] LABS: Hematocrit 39.5 % (33.0-51.0); Hemoglobin 12.2 g/dL (11.5-16.0)
[2021-07-18 05:36] LABS: Albumin, Blood 2.4 g/dL (3.4-5.0); Anion Gap 10 mmol/L (6-16); Blood Urea Nitrogen 44 mg/dL (8-24); Bun/Creatinine Ratio 8.7 (12.0-20.0); CO2, Blood 29 mmol/L (21-32); Calcium, Blood 9.3 mg/dL (8.5-10.1); Chloride, Blood 91 mmol/L (98-108); Creatinine, Blood 5.06 mg/dL (0.40-1.00); Glomerular Filtration Rate 9 (60-); Glucose, Blood 435 mg/dL (70-99); Magnesium, Blood 2.3 mg/dL (1.6-2.4); Phosphorus, Blood 4.7 mg/dL (2.5-4.9); Potassium, Blood 4.8 mmol/L (3.5-5.5); Sodium, Blood 130 mmol/L (136-145)
--- NOTE | 2021-07-18 08:00 | NUR ---
pt laying in bed eating breakfast, is needing help to eat, a/ox2 with expressive aphagia, questioning meds, moans a lot when moved, very slow to eat, lungs are clear t/o, resp even and unlabored, no cough noted, hrr, edema noted to b/l le, permacath noted to rcw, incont of urine/bowel, bedrest at this time, turn q2hr, iv to rfa site is clear and patent, btx4, abd flat soft nontender, skin has rash to folds, mepilex on for protection of heels, moves upper ext well, very weak, jabari, call light in reach. will be having dialyis today.
--- NOTE | 2021-07-18 13:46 | NUR ---
pt returned from dialysis, eating lunch, po meds given as ordered. nurse administrator in room while eating. family here. call light in reach.
[2021-07-18] MEDS ORDERED: AMLO10 PO (16:26)
[2021-07-18] MEDS ORDERED: ATOR80 PO (16:26)
[2021-07-18] MEDS ORDERED: Acetaminophen650 M1 PO (16:26)
[2021-07-18] MEDS ORDERED: ASPI81CH PO (16:27)
--- NOTE | 2021-07-18 16:53 | NUR ---
Pt has been discharged to home, family here to take her home, charge nurse went over discharge instructions, they verbalize understanding and instructed dad that she needs dialysis tomorrow at 4:30 removed iv intact, pt taken to car via wheelchair, has discharge instructions and her hard script for methadone in a discharge folder and was informed that is where it is, pt has all her belongings with her.
[2021-07-19] MEDS ORDERED: PANT40 PO (22:57)
== END 2021-07-18 17:04 | disposition home health service (06) | DRG 208 ==
LOC: ER 21:31 → PCU 06-30 00:31 → ICUW 06-30 00:31 → MEDS 07-06 16:49 → PCU 07-12 11:28 → MEDS 07-14 16:50
PROVIDERS: Family Medicine; Hospitalist; Internal Medicine; Internal Medicine Critical Care Medicine; Internal Medicine Nephrology; Student in an Organized Health Care Education/Training Program; ADMIT Internal Medicine
PROC: 5A1D70Z Performance of Urinary Filtration, Intermittent, Less than 6 Hours Per Day (ICD-10-PCS; principal; 2021-06-30)
PROC: 5A1945Z Respiratory Ventilation, 24-96 Consecutive Hours (ICD-10-PCS; 2021-06-30)
PROC: 0DJ08ZZ Inspection of Upper Intestinal Tract, Via Natural or Artificial Opening Endoscopic (ICD-10-PCS; 2021-07-01)
DX: J96.01 Acute respiratory failure with hypoxia (principal); E11.10 Type 2 diabetes mellitus with ketoacidosis without coma; J69.0 Pneumonitis due to inhalation of food and vomit; G92.8 Other toxic encephalopathy; I63.9 Cerebral infarction, unspecified; K25.4 Chronic or unspecified gastric ulcer with hemorrhage; J81.0 Acute pulmonary edema; K92.2 Gastrointestinal hemorrhage, unspecified; E87.2 Acidosis; E87.1 Hypo-osmolality and hyponatremia; I13.2 Hypertensive heart and chronic kidney disease with heart failure and with stage 5 chronic kidney disease, or end stage renal disease; Q77.4 Achondroplasia; J44.9 Chronic obstructive pulmonary disease, unspecified; D63.1 Anemia in chronic kidney disease; E11.22 Type 2 diabetes mellitus with diabetic chronic kidney disease; E11.649 Type 2 diabetes mellitus with hypoglycemia without coma; I16.0 Hypertensive urgency; F11.10 Opioid abuse, uncomplicated; Z88.8 Allergy status to other drugs, medicaments and biological substances; Z88.2 Allergy status to sulfonamides; Z88.0 Allergy status to penicillin; Z88.1 Allergy status to other antibiotic agents; Z99.81 Dependence on supplemental oxygen; Z86.718 Personal history of other venous thrombosis and embolism; Z86.73 Personal history of transient ischemic attack (TIA), and cerebral infarction without residual deficits; G47.30 Sleep apnea, unspecified; E83.39 Other disorders of phosphorus metabolism; E87.5 Hyperkalemia; I50.9 Heart failure, unspecified
CPT/HCPCS: 31500; 31720; 36415; 36556; 36600; 51702; 70450; 70496; 70498; 71045; 80047; 80048; 80053; 80069; 80202; 81001; 82375; 82803; 82947; 83690; 83735; 85014; 85018; 85025; 87040; 87070; 87086; 87205; 92526; 92610; 93005; 93010; 93306; 93971; 94002; 94003; 94640; 94660; 94664; 94760; 94762; 96374; 97110; 97112; 97162; 97166; 97530; 99285-25; A9270; C1751; C9113; J0171; J0881; J1170; J1610; J1644; J1815; J2250; J2405; J2704; J2920; J3370; J3480; J7040; J7050; J7060; J7120; P9046; Q9967

== ENCOUNTER 2021-07-19 09:48 | Inpatient (IN) | payer OTHER ==
[~2021-07-19] VITALS: Ht 121.9 cm; Wt 63.8 kg
[~2021-07-19 09:48] MED LIST changes: +AMLO10 PO; +ASPI81CH PO; +Acetaminophen650 M1 PO
[2021-07-19 10:05] LABS: Base Excess Venous -14.9 mmol/L; Bicarbonate Venous 14.4 mmol/L (24.0-30.0); PCO2 Venous 22.5 mmHg (38-42); pH Blood Venous 7.31 (7.34-7.37)
[2021-07-19 10:10] LABS: Calcium, Ionized (POC) 0.98 mmol/L (1.10-1.46); Chloride (POC) 96 mmol/L (98-108); Creatinine (POC) 4.5 mg/dL (0.6-1.0); Glucose (ISTAT POC) >700 mg/dL (70-99); Hemoglobin (POC) 13.9 g/dL (12.0-16.0); Potassium (POC) 7.2 mmol/L (3.5-5.5); Sodium (POC) 125 mmol/L (135-148); Total CO2 (POC) 12 mmol/L (21-32)
[2021-07-19 10:20] LABS: Source, Urine Straight Cath
[2021-07-19 10:24] LABS: Appearance, Urine Clear (Clear); Bilirubin, Urine Neg (Neg); Blood, Urine 3+ (Neg); Color, Urine Yellow (P-Yellow); Glucose Qualitative, Urine 4+ (Neg); Ketones, Urine 4+ (Neg); Leukocyte Esterase, Urine Neg (Neg); Nitrite, Urine Neg (Neg); Protein, Urine 4+ (Neg); Specific Gravity, Urine 1.005 (1.003-1.022); Urobilinogen, Urine NORM (Normal)
[2021-07-19 10:41] LABS: White Blood Cells, Urine 0-2 /hpf (0-5)
[2021-07-19 10:42] LABS: Bacteria Rare /hpf; Squamous Epithelial Cells Few /hpf (Few)
[2021-07-19 10:46] LABS: International Normalized Ratio 0.98; Prothrombin Time Results 10.3 Sec (9.7-11.5)
[2021-07-19 12:05] LABS: U Amphetamine Screen Not Detected; U Barbituate Screen Not Detected; U Benzodiazapine Screen Not Detected; U Buprenorphine Screen Not Detected; U Cannabinoids Screen Not Detected; U Cocaine Screen Not Detected; U Methadone Screen DETECTED; U Methamphetamine Screen Not Detected; U Opiates Screen Not Detected; U Phencyclidine Screen Not Detected
[2021-07-19 12:06] LABS: U Oxycodone Screen Not Detected; U Propoxyphene Screen Not Detected
[2021-07-19 12:28] LABS: Base Excess Venous -10.4 mmol/L; Bicarbonate Venous 17.1 mmol/L (24.0-30.0); PCO2 Venous 29.3 mmHg (38-42); pH Blood Venous 7.33 (7.34-7.37)
[2021-07-19 12:36] LABS: BASOPHILS ABSOLUTE AUTO 0.06 K/mm3 (0.00-0.23); BASOPHILS PERCENT AUTO 0 % (0-2); EOSINOPHILS PERCENT AUTO 0 % (0-6); Hemoglobin 10.6 g/dL (11.5-16.0); IMMATURE GRAN ABSOLUTE AUTO 0.11 K/mm3 (0.00-0.10); IMMATURE GRAN PERCENT AUTO 1 % (0-1); LYMPHOCYTES ABSOLUTE AUTO 0.29 K/mm3 (0.84-5.20); LYMPHOCYTES PERCENT AUTO 2 % (21-46); MONOCYTES ABSOLUTE AUTO 0.69 K/mm3 (0.16-1.47); MONOCYTES PERCENT AUTO 4 % (4-13); Mean Corpuscular HGB 30.5 pg (26.0-34.0); Mean Corpuscular HGB Conc 30.3 g/dL (31.5-36.5); Mean Corpuscular Volume 101 fL (80-100); Mean Platelet Volume 11.4 fL (9.1-12.4); NEUTROPHILS ABSOLUTE AUTO 14.59 K/mm3 (1.96-9.15); NEUTROPHILS PERCENT AUTO 93 % (41-73); Platelet Count 427 K/mm3 (150-400); RDW Coefficient Variation 13.2 % (11.7-14.2); RDW Standard Deviation 49.5 fL (35.1-46.3); Red Blood Cell Count 3.48 M/mm3 (3.80-5.20); White Blood Cell Count 15.74 K/mm3 (4.00-11.30)
[2021-07-19 12:55] LABS: Magnesium, Blood 2.4 mg/dL (1.6-2.4)
[2021-07-19 13:29] LABS: Alanine Aminotransfer (ALT/SGP 15 U/L (12-78); Albumin, Blood 2.5 g/dL (3.4-5.0); Albumin/Globulin Ratio 0.6 (0.8-1.8); Alk Phos 106 U/L (50-136); Anion Gap 21 mmol/L (6-16); Aspartate Aminotrans (AST/SGOT 16 U/L (12-37); Beta-hydroxybutyrate 50.5 mg/dL (0.2-2.8); Bilirubin, Direct <0.1 mg/dL (0.0-0.3); Bilirubin, Indirect Unable to Calculate mg/dL (0.1-0.7); Bilirubin, Total 0.4 mg/dL (0.1-1.0); Blood Urea Nitrogen 53 mg/dL (8-24); Bun/Creatinine Ratio 12.3 (12.0-20.0); CO2, Blood 16 mmol/L (21-32); Calcium, Blood 9.2 mg/dL (8.5-10.1); Chloride, Blood 96 mmol/L (98-108); Creatinine, Blood 4.32 mg/dL (0.40-1.00); Globulin, Blood 4.5 g/dL (2.2-4.0); Glomerular Filtration Rate 11 (60-); Glucose, Blood 884 mg/dL (70-99); Phosphorus, Blood 3.3 mg/dL (2.5-4.9); Potassium, Blood 4.8 mmol/L (3.5-5.5); Sodium, Blood 133 mmol/L (136-145)
[2021-07-19 14:56] LABS: Base Excess Venous -1.3 mmol/L; Bicarbonate Venous 23.8 mmol/L (24.0-30.0); PCO2 Venous 31.9 mmHg (38-42); PO2 Venous 95.8 mmHg (38-42); pH Blood Venous 7.46 (7.34-7.37)
[2021-07-19 15:25] LABS: Glucose, Blood 759 mg/dL (70-99)
--- NOTE | 2021-07-19 16:12 | NUR ---
Spiritual Care Consult : Ordered by Dr. Taylor Santizo Pt. is currently in ICU, and is intubated. Because of sedation the Pt. is non-responsive. This fixed wing aircraft crew chief joined a Family meeting with Dr. Melo and Reyna from Palliative Care. Pts. Mother (decision maker) and other family members are present. Dr. Melo and Reyna walked through details of Reyna's prognosis and answered questions regarding physical therapy and placement.
[2021-07-19 16:56] LABS: Glucose, Blood 588 mg/dL (70-99)
--- NOTE | 2021-07-19 17:39 | NUR ---
PT ADMITTED TO ICU 9 AT 1310. PT IS INTUBATED. NO SEDATION. DOES NOT RESPOND TO PAINFUL/NOXIOUS STIMULUS. FEBRILE, TYLENOL GIVEN AND TEMP CONTINUES TO CLIMB. ICE PACKS PLACED. PT HAS JERKING OF ARMS AND LEGS. DOES NOT APPEAR RHYTHMIC. DR. NEAL NOTIFIED AND PT TAKEN TO CT TO R/O NEURO COMPONENT. PT IS DIFFICULT IV START AND LAB DRAW. POWERGLIDE PLACED IN ORDER TO GET LABS DRAWN. CRITICAL HIGH GLUCOSE ON ARRIVAL TO ICU. PT ARRIVES ON INSULIN GTT AT 6.4ML/HR FROM ER. DIFFICULT TO KNOW HOW TO TITRATE DUE TO INABILITY TO GET GLUCOSE FOR EXTENDED PERIOD OF TIME DUE TO POOR VEINS AND IV ACCESS. IVF STARTED WELL. PT HAS PERMACATH TO RCW. HAS PRESSURE WOUNDS TO BILAT HEELS. WOUND PHOTOS TAKEN. MULTIPLE FAMILY MEMBERS TO THE ROOM. DR. SNYDER SET UP FAMILY MEETING WITH HIMSELF, PALLIATIVE CARE, AND FAMILY.
--- NOTE | 2021-07-19 19:04 | NUR ---
DR. NEAL IS CALLING OTHER HOSPITALS TO TRANSFER PT FOR NEURO. GAVE A DOSE OF VERSED DR. NEAL THINKS SHE MIGHT BE SEIZING. WAITING FOR PROPOFOL TO COME THROUGH ORDERS. BROTHER AT BEDSIDE UPDATED AND HE WILL BE UPDATING REST OF FAMILY.
--- NOTE | 2021-07-19 19:48 | NUR ---
ASSUMED CARE OF PT AT 1915. PT HAS FAMILY AT BEDSIDE, IS NONRESPONSIVE AND MAKING NONPURPOSEFUL JERKING MOVEMENTS. PT IS RECIEVING KEPPRA AT 215 ML/HR. PT IS RECIEVING INSULIN R AT 6 ML/HR WITH 100 ML/HR OF IV FLUIDS. SHE IS ALSO RECIEVING A BOLUS OF FLUIDS AT 999 MLS/HR, WHICH HAS NOW BEEN LOWERED TO 100 ML/HR DUE TO INCREASE OF HEART RATE AND RISK OF FLUID OVERLOAD. HER VENTILATOR SETTINGS ARE A/C VC 18, 350, 30% AND PEEP 5. SEE SHIFT SUMMARY FOR FURTHER DETAILS.
[2021-07-19] MEDS ORDERED: PANT40 PO (22:57)
[2021-07-19 23:51] LABS: Bun/Creatinine Ratio 12.1 (12.0-20.0); Calcium, Blood 9.3 mg/dL (8.5-10.1); Creatinine, Blood 4.63 mg/dL (0.40-1.00); Potassium, Blood 4.4 mmol/L (3.5-5.5)
[2021-07-20 04:02] LABS: BASOPHILS ABSOLUTE AUTO 0.08 K/mm3 (0.00-0.23); BASOPHILS PERCENT AUTO 0 % (0-2); EOSINOPHILS PERCENT AUTO 0 % (0-6); Hematocrit 31.4 % (33.0-51.0); Hemoglobin 10.2 g/dL (11.5-16.0); IMMATURE GRAN ABSOLUTE AUTO 0.19 K/mm3 (0.00-0.10); IMMATURE GRAN PERCENT AUTO 1 % (0-1); LYMPHOCYTES ABSOLUTE AUTO 1.36 K/mm3 (0.84-5.20); LYMPHOCYTES PERCENT AUTO 6 % (21-46); MONOCYTES ABSOLUTE AUTO 1.95 K/mm3 (0.16-1.47); MONOCYTES PERCENT AUTO 9 % (4-13); Mean Corpuscular HGB 31.2 pg (26.0-34.0); Mean Corpuscular HGB Conc 32.5 g/dL (31.5-36.5); Mean Platelet Volume 10.8 fL (9.1-12.4); NEUTROPHILS ABSOLUTE AUTO 18.34 K/mm3 (1.96-9.15); NEUTROPHILS PERCENT AUTO 84 % (41-73); Platelet Count 415 K/mm3 (150-400); RDW Coefficient Variation 13.3 % (11.7-14.2); RDW Standard Deviation 47.3 fL (35.1-46.3); Red Blood Cell Count 3.27 M/mm3 (3.80-5.20); White Blood Cell Count 21.92 K/mm3 (4.00-11.30)
[2021-07-20 04:04] LABS: Mean Corpuscular Volume 96 fL (80-100)
[2021-07-20 04:22] LABS: Albumin, Blood 2.3 g/dL (3.4-5.0); Albumin/Globulin Ratio 0.6 (0.8-1.8); Bilirubin, Total 0.4 mg/dL (0.1-1.0); Bun/Creatinine Ratio 11.5 (12.0-20.0); Calcium, Blood 9.1 mg/dL (8.5-10.1); Creatinine, Blood 4.95 mg/dL (0.40-1.00); Globulin, Blood 3.9 g/dL (2.2-4.0); Magnesium, Blood 1.9 mg/dL (1.6-2.4); Phosphorus, Blood 3.5 mg/dL (2.5-4.9); Potassium, Blood 4.3 mmol/L (3.5-5.5); Total Protein, Blood 6.2 g/dL (6.4-8.2)
--- NOTE | 2021-07-20 06:43 | NUR ---
END OF SHIFT SUMMARY. PT HAS NONPURPOSEFUL JERKING MOVEMENTS IN ALL EXTREMETIES, SHE GRIMACES TO ORAL SUCTION. PT IS INTUBATED AND SEDATED WITH PROPOFOL INFUSING AT 65 MCG/KG/MIN. INITIATED FENTANYL INFUSION DUE TO PT OVERBREATHING VENT, HR >130, AND SBP > 190. PT NOTED TO BE AGITATED BY GRIPPING SIDES OF GOWN, RESTLESS MOVEMENTS IN BLE, WELL NOTED TO BE PROFUSELY SWEATING. BG WAS 244, WITH TEMP OF 99.1. CALL MADE TO DR. NEAL WITH ORDERS TO START FENTANYL DRIP AT 100 MCG/HR. PT IS CURRENTLY BREATHING WITH THE VENT, HR 110, SBP 170S. HER VENT SETTINGS ARE A/C 18, 350, 30%, PEEP OF 5. PT IS STILL NOT FOLLOWING COMMANDS OR OPENING EYES TO ANY NOXIOUS STIMULI, HOWEVER UNKNOWN WHAT PT'S BASELINE NEURO STATUS IS SECONDARY TO STROKE. REPORT GIVEN TO SHAUN QUINTANILLA, AND KATYA BERRY.
--- NOTE | 2021-07-20 08:23 | NUR ---
AM NOTE... ASSUMED CARE OF PT AT 0700, THE PT IS INTUBATED AND SEDATED WITH PROPOFOL RUNNING AT 65MCG AND A FENTANYL CUSTOM GARMENT DESIGNER AT 100MCG/HR, THE PT'S BLE WILL RESPOND TO PAINFUL STIMULI BUT NO WHERE ELSE AT THIS TIME. THE PT'S VENT SETTINGS ARE AC/VC:18/350/5/30% WITH O2 SATS>90% L/S CLEAR T/O RR AT 18. THE PT'S ET TUBE IS 7.5 AND 21 AT THE TEETH. OG TUBE PATENT AND CAPPED AT THIS TIME WITH A SMALL AMOUNT OF GREEN BILE NOTED IN THE TUBING. THE PT'S BT ARE PRESENT AND VERY HYPOACTIVE, ABD IS SOFT AND NONTENDER TO PALPATION. THE PT'S TEMPT HOLLINGSWORTH IS PATENT AND DRAINGING TO GRAVITY. THE PT'S HEELS ARE FLOATED. NOTED TO THE PT'S RIGHT LOWER LEG IS A LARGE FIRM AREA THAT IS TENDER TO PALPATION. PROVIDER IS AWARE. THE PT WAS STARTED ON A SEDATION VACATION AT 0805. PROVIDER AT THE BEDSIDE TO ASSESS THE PT AND PLAN OF CARE WAS DISCUSSED WITH THE PROVIDERS. WILL CONTINUE TO MONITOR.
--- NOTE | 2021-07-20 09:25 | NUR ---
AM NOTE: ASSUMED CARE OF PT AT 0700. PT INUTUBATED AND SEDATED THIS MORNING WITH PROPOFOL RUNNING AT 65 MCG/KG/MIN AND A SAS ANALYST PUMP INFUSING FENTANYL AT 25MCG/ML. PT IS UNAROUSABLE AND IS DISPLAYING UNPURPOSEFUL LEG MOVEMENTS THAT RESEMBLE RESTLESS LEGS. PT'S PUPILS ARE REACTING SLUGGISH TO LIGHT. PT HAS PALAPABLE MASSES IN BOTH LOWER EXTREMITIES THAT IS MORE SIGNIFICANT IN THE RIGHT LOWER EXTREMITY; PALPATING MASSES INFLICTS DISCOMFORT FOR PT. PT IS ABLE TO RESPOND TO PAIN STIMULI AT THIS TIME. PRESSURE ULCER WOUNDS NOTED FROM LAST SHIFT RN AND HEELS PLACED IN FOAM PROTECTIVE DEVICE. WILL CONTINUE TO ASSESS WOUNDS. PT HAS TEMPERATURE HOLLINGSWORTH THAT IS PATENT AND DRAINING TO GRAVITY. TEMPERATURES ARE STABLE THIS MORNING; SBP AVERAGING IN 160-170'S, HR IN THE 110'S, AND O2 99<. PT'S UNCLE AND COUSIN AT BEDSIDE THIS MORNING AT [address] SNYDER AT BEDSIDE TO ASSESS PT AT 0815. PROVIDER UPDATED ON PT'S GLUCOSE MANAGEMENT THIS MORNING AND PUT ORDERS IN FOR INSULIN REGIMENT. THIS RN NOTIFIED PROIDER ABOUT INCREASE IN WBC'S AND ELEVATED LACTIC ACID AND PROVIDER IS PUTTING IN ORDERS FOR ANOTHER LACTIC ACID DRAW. TUBE FEEDINGS DISCUSED WITH PROVIDER. DR. HAYES AT BEDSIDE TO ASSESS PT AT 0900 AND UPDATED ON PT STATUS. PROVIDER MADE AWARE OF CURRENT CBG AND DEEMS THAT PT IS ELIGILABLE FOR INITIATING TUBE FEEDINGS AT THIS TIME; PROVIDER REQUESTED THAT RESIDUALS BE CHECKED, AND THEY ARE MEASURING AT 10 MLS. PROVIDER NOTIFIED. WILL CONTINUE TO MONITOR THROUGHOUT THE DAY.
--- NOTE | 2021-07-20 11:00 | NUR ---
INITIAL [facility] CARE VISIT - FAMILY CONTACTS AND CODE WORD BELOW Code word for family updates when they call in is MINDA, per Mother Brooke. Family communication is limited to pt's Mom, Brooke, pt's Brother, Bret Hwang # [phone] and pt's Cousin, Linda Rocha [phone]. Other family members are allowed in to visit but if phone calls received with updates requested, they must be one of the three people listed above and be able to provide the Code Word "Minda". Summary of three phone conversations with pt's brother & pt's mother Brooke, & case conferences with ICU [facility] staff, . Pt was d/c'd home to care of mother on . She was readmitted to ICU yesterday with resp failure and hyperglycemia. Neuro status impaired and at the time of my visit pt was not responsive other than to painful stimuli. Sedation vacation had been started around 8 am. I had voice mails from pt's cousin, Linda and brother, Bret, requesting updates and information. After confirming and documenting a short list of family members allowed to call in for updates with pt's mother, Brooke, I called Bret and gave full update twice. He will be in to visit later as will mom. Other family members have been in earlier this am. Currently, family hopeful that pt's LOC and neuro status will improve. They were updated in detail by yesterday evening. Bret states they could use some help "translating" words used that they did not understand. I answered his questions and agreed to speak with pt's cousin, Linda, who is nurse in a neuro unit in [place] and is offering to help keep family well informed on medical information. Pt was receiving dialysis and tube feedings started this am. She was unresponsive to voice and touch. She was grimacing and frowning at times after the sedation vacation and analgesic infusion stopped. She remains ventilated. Family wanting to give pt time before considering change in goals of care from full code/full care to less agressive tx. I will remain available for those conversations t/o the weekend if desired by family.
--- NOTE | 2021-07-20 13:09 | NUR ---
PT UPDATE.... THE PT RECEIVED DIALYSIS TREATMENT IN THE ROOM, AND TOLERATED IT WELL. THE PT HAS BEEN OFF OF SEDATION SINCE 804 THIS SHIFT. SINCE THE END OF THE PT'S DIALYSIS TREATMENT THE PT'S BP STARTED TO INCREASE FROM THE 160'S-170'S TO THE 190'S-200'S. THE PT'S HR ALSO INCREASED TO THE 120'S-130'S. THE PT'S BROTHER WAS IN THE ROOM DURING THIS TIME, WHEN HER BROTHER LATOYA SAID HER NAME SHE OPENED HER EYES AND LOOKED AT HIM, HER EYES WERE TRACKING HIS MOVEMENTS. SHE DID NOT FOLLOW ANY COMMANDS DURING THIS EXCHANGE. THE PT'S HYPERTENSION WAS MEDICATED PER EMAR. WILL CONTINUE TO MONITOR.
--- NOTE | 2021-07-20 13:15 | NUR ---
AFTERNOON UPDATE: SEDATION HAS BEEN TUNRED OFF FOR FIVE HOURS; AT THIS TIME, THE PT IS ABLE TO RESPOND TO PAIN STIMULUS AND HER NAME OCCASIONALLY. HER BROTHER, LATOYA, WAS AT BEDSIDE TO VISIT WITH PT AT 1245 AND THE PT RESPONDED WELL TO HIS VOICE AND WAS ABLE TO TRACK HIS MOVEMENTS. THE PT WAS NOT ABLE TO FOLLOW COMMANDS AT THIS TIME WAS IS MAKING SMALL IMPROVEMENTS IN HER NEUROLOGICAL FUNCTIONS. TUBE FEEDINGS HAVE BEEN INITIATED AT 10 MLS/HOUR. DIALYSIS FINISHED AROUND 1230 AND 2.5 L WERE PULLED OFF. THE PT TOLERATED DIALYSIS WELL BESIDES A FEW EPISODES OF HTN. AROUND 1245, THE PT'S SBP WAS STAYING BETWEEN 200-220; PT MEDICATED PER EMAR. PT REMAINS TACHYCARDIC WITH HR IN THE 130'S. PT'S MOTHER, JAN AT BEDSIDE TO VISIT WITH PT AT 1315. PT'S MOTHER UPDATED ON PT'S STATUS AND ALL QUESTIONS ANSWERED AT THIS TIME. WILL CONTINUE TO MONITOR THROUGHOUT THE DAY.
[2021-07-20 15:21] LABS: Vancomycin, Random 17.9 ug/mL
--- NOTE | 2021-07-20 17:29 | NUR ---
SHIFT SUMMARY: SEDATION VACATION WAS IMPLEMENTED THIS MORNING AT 0800 AND THE PATIENT'S OVERALL NEUROLOGICAL STATUS HAS BEEN IMPROVING SLOWLY. THE PT CONTINUES TO RESPOND TO PAIN STIMULI, BUT ONLY OCCASIONALLY RESPONDS TO VERBAL STIMULI. EYE OPENING HAS BECOME MORE SPONTANEOUS. FENTANYL HAS BEEN ADMINISTERED THROUGHOUT THE DAY WHEN THE PT BECAME AGGITATED OR IN PAIN. WOUND CARE AND DRESSING CHANGES OCCURRED FOR THE PATIENT'S HEEL WOUNDS; WHEN CARE WAS CONDUCTED THE PATIENT WAS AGGITATED AND RESISTED WOUND CLEANING. FAMILY MEMBERS WERE IN AND OUT ALL DAY VISITING AND UPDATES WERE GIVEN ACCORDING TO RELEASE OF INFORMATION FORM. PT RECIEVED DIALYISIS TODAY AND 2.5 L WERE PULLED OFF AND PT TOLERATED THIS WELL. ORAL ANTI-HYPERTENSIVE MEDS WERE STARTED TODAY AND BP'S WERE SUCCESSFULLY MANAGED AFTER ADMINISTRATION. WOUND CONSULT ORDERED PER DR. SNYDER. VITAL SIGNS HAVE STABILIZED WITH SBP IN THE 130'S, HR 80-90'S, O2 98<, AND TEMPERATURE AVERAGING IN AT 98.8. CBG HAVE BEEN STABLE IN THE 90'S ALL SHIFT; SHORT ACTING INSULING COVERAGE NOT NEEDED FOR THIS SHIFT. PT HAS HAD NO SIGNS OF SEIZURE ACTIVITIES THIS SHIFT. TEMPERATURE HOLLINGSWORTH PATENT AND DRAINING TO GRAVITY. WILL CONTINUE TO MONITOR UNTIL REPORT IS GIVEN TO GRAIN HANDLER NURSE.
--- NOTE | 2021-07-20 19:07 | NUR ---
ASSUMED CARE OF PT AT 1907. PT IS RESPONSIVE TO VERBAL STIMULI, EYES ARE TRACKING AND TURNING HEAD TO LOOK. PT IS NOT YET NODDING HEAD TO QUESTIONS. PT HAS BEEN REMOVED FROM SEDATION. SHE HAS VITAL HIGH PROTEIN INFUSING VIA OG TUBE AT 10 ML/HR, AND IV FLUIDS INFUSING AT 10 ML/HR. HER VENT SETTINGS ARE A/C 18, 350, 30%, PEEP 5. HER RR IS 18. SEE SHIFT SUMMARY FOR FURTHER DETAILS.
[2021-07-21 04:38] LABS: BASOPHILS ABSOLUTE AUTO 0.06 K/mm3 (0.00-0.23); BASOPHILS PERCENT AUTO 0 % (0-2); EOSINOPHILS ABSOLUTE AUTO 0.35 K/mm3 (0.00-0.68); EOSINOPHILS PERCENT AUTO 3 % (0-6); Hematocrit 29.7 % (33.0-51.0); Hemoglobin 9.5 g/dL (11.5-16.0); IMMATURE GRAN ABSOLUTE AUTO 0.07 K/mm3 (0.00-0.10); IMMATURE GRAN PERCENT AUTO 1 % (0-1); LYMPHOCYTES ABSOLUTE AUTO 1.04 K/mm3 (0.84-5.20); LYMPHOCYTES PERCENT AUTO 8 % (21-46); MONOCYTES PERCENT AUTO 13 % (4-13); Mean Corpuscular HGB 31.1 pg (26.0-34.0); Mean Corpuscular Volume 97 fL (80-100); Mean Platelet Volume 10.8 fL (9.1-12.4); NEUTROPHILS PERCENT AUTO 76 % (41-73); Platelet Count 395 K/mm3 (150-400); RDW Coefficient Variation 13.8 % (11.7-14.2); RDW Standard Deviation 48.7 fL (35.1-46.3); Red Blood Cell Count 3.05 M/mm3 (3.80-5.20); White Blood Cell Count 13.62 K/mm3 (4.00-11.30)
[2021-07-21 05:06] LABS: Albumin, Blood 2.2 g/dL (3.4-5.0); Anion Gap 8 mmol/L (6-16); Blood Urea Nitrogen 30 mg/dL (8-24); Bun/Creatinine Ratio 8.5 (12.0-20.0); CO2, Blood 26 mmol/L (21-32); Calcium, Blood 9.5 mg/dL (8.5-10.1); Chloride, Blood 108 mmol/L (98-108); Creatinine, Blood 3.55 mg/dL (0.40-1.00); Glomerular Filtration Rate 14 (60-); Glucose, Blood 180 mg/dL (70-99); Magnesium, Blood 2.2 mg/dL (1.6-2.4); Phosphorus, Blood 3.9 mg/dL (2.5-4.9); Potassium, Blood 3.7 mmol/L (3.5-5.5); Sodium, Blood 142 mmol/L (136-145)
--- NOTE | 2021-07-21 06:02 | NUR ---
END OF SHIFT SUMMARY. PT IS MAKING PURPOSEFUL MOVEMENTS, OPENING EYES, SHAKING HEAD YES OR NO TO QUESTIONS. PT IS INTUBATED WITH NO SEDATION. CURRENTLY INFUSING KEPPRA AT 215 MLS/HR. FENTANYL WAS ADMINISTERED TO PT AFTER SHAKING HEAD YES TO BEING IN PAIN. BP IS 150/71, HR 70, AND SPO2 IS 100%. VENT SETTINGS ARE 18, 350, 30%, PEEP 5. FAILED WEAN THIS MORNING, NOT ABLE TO WAKE ENOUGH TO TAKE OWN BREATHS. PRESSURE SUPPORT 7/5. NO FENTANYL WAS GIVEN FOR HOURS PRIOR TO WEAN. PT NEEDED REGULAR INSULIN COVERAGE FOR BG THIS SHIFT. HOLLINGSWORTH IS PATENT AND DRAINING TO GRAVITY. WILL CONTINUE TO MONITOR TO ONCOMING RN.
--- NOTE | 2021-07-21 08:11 | NUR ---
AM NOTE.... ASSUMED CARE OF PT AT 0700, THE PT IS INTUBATED BUT NOT SEDATED AT THIS TIME. THE PT'S VENT SETTINGS ARE UNCHANGED FROM YESTERDAY AT 18/350/5/30% WITH O2 SATS >90% L/S CLEAR T/O. NO SECRETIONS NOTED DURING SUCTIONING. THE PT WAKES EASILY TO VERBAL STIMULI AND IS ABLE TO STAY AWAKE, THE PT WAS ABLE TO FOLLOW MINIMAL COMMANDS SUCH "SQUEEZE MY HANDS", THE PT WAS ABLE TO NOD HER HEAD APPROPRIATELY TO QUESTIONS SIMPLE QUESTIONS. OG TUBE IS RUNNING TUBE FEEDS AT A GOAL OF 10MLS/HR WITH 25MLS OF RESIDUALS NOTED AND REINSTILLED. BT PRESENT AND HYPOACTIVE, ABD IS SOFT AND NONTENDER TO PALPATION. THE PT IS IN SR IN THE 70'S BP IS HYPERTENSIVE WITH SBPs IN THE 160'S-170'S. THE PT HAS 1+ EDEMA TO HER BILAT FEET. THE PT'S RIGHT HEEL HAS AN UNSTAGEABLE PRESSURE ULCER PRESENT ON ADMIT, THE PT'S RIGHT HEEL ALSO HAS A DEEP TISSUE WOUND AND IS CRACKED. BOTH PT'S HEELS ARE FLOATED ON PILLOWS. WILL CONTINUE TO MONITOR.
--- NOTE | 2021-07-21 08:20 | NUR ---
PT UPDATE.... AT 0800 THE PT WAS CHANGED TO PRESSURE SUPPORT OF 10/5 THE PT TOLERATED THIS WELL UNTIL 0820 WHEN SHE STARTED TO FALL ASLEEP. THE PT WAS CHANGED BACK TO AC BY RT. WILL CONTINUE TO MONITOR.
[2021-07-21 12:09] LABS: Base Excess Venous 1.6 mmol/L; Bicarbonate Venous 25.8 mmol/L (24.0-30.0); PCO2 Venous 37.2 mmHg (38-42); PO2 Venous 73.7 mmHg (38-42); pH Blood Venous 7.45 (7.34-7.37)
--- NOTE | 2021-07-21 15:57 | NUR ---
PT UPDATE.... THE PT WAS PLACED ON TO SPONTAINIOUS/PRESSURE SUPPORT OF 8/5 AND 30% AT [address] HAYES, THE PT HAS BEEN TOLERATING THIS WELL. THE PT'S VS HAVE BEEN STABLE T/O THIS SHIFT. THE PT HAS BEEN AWAKE AND ALERT FOR MOST OF THIS AFTERNOON. WILL CONTINUE TO MONITOR.
--- NOTE | 2021-07-21 17:25 | NUR ---
SHIFT SUMMARY.... NO ACUTE NEGATIVE CHANGES NOTED THIS SHIFT. THE PT'S VS HAVE BEEN STABLE. AT 155 THE PT WAS SWITCHED OVER TO SPONTAINOUS/PRESSURE SUPPORT OF 8/5 AND 30% THE PT TOLERATED THIS WELL UNTIL [address] ZACARIAS EXTUBATED THE PT. THE PT WAS EXTUBATED TO 4L NC THEN TITRATED DOWN TO 2L NC WITH O2 SATS >95%. THE PT WAS ABLE TO RESPOND TO QUESTIONS SLOWLY BUT APPROPRIATELY. THE PT'S FAMILY WAS UPDATED ON THIS CHANGE. THE PT HAS NOT BEEN MEDICATED FOR PAIN AT ALL THIS SHIFT, THE PT HAS ALSO NOT SHOWN ANY S/SX OF W/D FROM THE METHADONE SHE TAKES AT HOME. THE PT HAS NOT HAD A BM THIS SHIFT, THE PT'S HOLLINGSWORTH IS PATENT AND DRAINING TO GRAVITY. THE PLAN OF CARE IS FOR THE PT TO HAVE DIALYSIS TOMORROW. WILL CONTINUE TO MONITOR UNTIL REPORT IS GIVEN TO ONCOMING RN.
[2021-07-22 05:26] LABS: BASOPHILS ABSOLUTE AUTO 0.05 K/mm3 (0.00-0.23); BASOPHILS PERCENT AUTO 0 % (0-2); EOSINOPHILS ABSOLUTE AUTO 0.73 K/mm3 (0.00-0.68); EOSINOPHILS PERCENT AUTO 7 % (0-6); Hematocrit 30.6 % (33.0-51.0); Hemoglobin 9.6 g/dL (11.5-16.0); IMMATURE GRAN ABSOLUTE AUTO 0.05 K/mm3 (0.00-0.10); IMMATURE GRAN PERCENT AUTO 0 % (0-1); LYMPHOCYTES ABSOLUTE AUTO 0.77 K/mm3 (0.84-5.20); LYMPHOCYTES PERCENT AUTO 7 % (21-46); MONOCYTES ABSOLUTE AUTO 1.47 K/mm3 (0.16-1.47); MONOCYTES PERCENT AUTO 13 % (4-13); Mean Corpuscular HGB 30.8 pg (26.0-34.0); Mean Corpuscular HGB Conc 31.4 g/dL (31.5-36.5); Mean Corpuscular Volume 98 fL (80-100); Mean Platelet Volume 11.2 fL (9.1-12.4); NEUTROPHILS ABSOLUTE AUTO 8.15 K/mm3 (1.96-9.15); NEUTROPHILS PERCENT AUTO 73 % (41-73); Platelet Count 406 K/mm3 (150-400); RDW Coefficient Variation 13.8 % (11.7-14.2); RDW Standard Deviation 49.1 fL (35.1-46.3); Red Blood Cell Count 3.12 M/mm3 (3.80-5.20); White Blood Cell Count 11.22 K/mm3 (4.00-11.30)
[2021-07-22 06:05] LABS: Albumin, Blood 2.1 g/dL (3.4-5.0); Anion Gap 9 mmol/L (6-16); Blood Urea Nitrogen 35 mg/dL (8-24); Bun/Creatinine Ratio 7.7 (12.0-20.0); CO2, Blood 23 mmol/L (21-32); Calcium, Blood 8.4 mg/dL (8.5-10.1); Chloride, Blood 111 mmol/L (98-108); Creatinine, Blood 4.53 mg/dL (0.40-1.00); Glomerular Filtration Rate 10 (60-); Glucose, Blood 180 mg/dL (70-99); Magnesium, Blood 2.4 mg/dL (1.6-2.4); Phosphorus, Blood 5.3 mg/dL (2.5-4.9); Potassium, Blood 4.1 mmol/L (3.5-5.5); Sodium, Blood 143 mmol/L (136-145)
--- NOTE | 2021-07-22 06:20 | NUR ---
END OF SHIFT SUMMARY: PT ALERT TO SELF, PLEASANTLY CONFUSED, REPEATS RN STATEMENT AND QUESTIONS. PT VERY SLOW TO RESPOND, MUMBLES AND SLURS WORDS. ABLE TO MOVE ALL EXTREMITIES TO COMMAND, WEAK AND EQUAL. PT DID COMPLAIN OF PAIN ON RIGHT LOWER LEG BUT DID NOT GIVE ANY PRN PAIN MEDICATION ABLE TO ALLEVIATE PAIN WITH REPOSITIONING AND REST. PT WAS ON ROOM AIR OVERNIGHT, DID HAVE EPISODES OF DESATURATION BUT QUICKLY RECOVERED WHEN TOLD TO BREATH IN AND OUT DEEPLY. NO COUGH. PT WAS ABLE TO TAKE ORAL MEDS OVERNIGHT. PASSED SWALLOW EVAL. BP SLIGHTLY HYPERTENSIVE WHEN AWAKE AND AGITATED. EDEMA ON LOWER EXT. PULSES ARE WEAK, AND USED DOPPLER FOR PEDAL PULSES. HOLLINGSWORTH CATHETER D/C @ AROUND 0600, PT HAS BRIEF ON AND ABLE TO HELP WITH REPOSITIONING IN BED. NO BM OVERNIGHT.
--- NOTE | 2021-07-22 08:47 | NUR ---
AM NOTE... ASSUMED CARE OF PT AT 0700, THE PT IS A&Ox2 ABLE TO STATE HER NAME, LOPEZ AND THAT SHE IS IN THE HOSPITAL BUT AT TIMES IS CONFUSED WITH WORD SUHAS. THE PT'S VS ARE STABLE A THIS TIME, HER BP IS A LITTLE HYPERTENSIVE WITH SBPs IN THE 160'S, THE PT IS CURRENTLY GETTING DIALYSIS IN THE ROOM. THE PT IS IN SR IN THE 70'S. THE PT HAS 1+ EDEMA NOTED TO HER BLE. THE PT'S BT PRESENT AND HYPOACTIVE, ABD IS SOFT AND NONTENDER TO PALPATION. THE PT HAS ATTENDS IN PLACE THAT ARE CURRENTLY C/D/I. THE PT IS ASKING ABOUT GOING HOME, THIS RN REORIENTED HER TO BEING IN THE HOSPTIAL AND THE EVENTS LEADING UP TO TODAY. THE PT VERBALIZED HER UNDERSTANDING BUT THEN STILL STATED SHE WANTED TO GO HOME. PROVIDERS AT THE BEDSIDE THIS AM TO ASSESS THE PT, THE PT'S STATUS WAS CHANGED TO MEDICAL WITH NO TELE. SPEECH EVAL AND PT/OT EVALS WERE PLACED PER VERBAL ORDER. WILL CONTINUE TO MONITOR.
--- NOTE | 2021-07-22 08:52 | NUR ---
AM NOTE: ASSUMED CARE OF PATIENT AT 0700. PT AWAKE AND SITTING COMFORTABLY IN BED. PT'S VITALS STABLE WITH HR IN THE 70-80'S, SBP 170-180, O2 LEVELS 98< AND TEMP AT 97.9. PT IS ALERT AND ORIENTED TO SELF AND MOSTLY PLACE WITH A LITTLE REORIENTATION CONDUCTED. PT IS ABLE TO FOLLOW SIMPLE COMMANDS AND CAN BE INVOLVED IN SIMPLE CONVERSATIONS WITH SLOW RESPONSES. LUNG SOUNDS ARE CLEAR IN ALL LUNG SORENSON BUT SLIGHTLY DIMINISHED. BT PRESENT AND HYPOACTIVE. PT IS CURRENTLY INCONTINENT WITH A DEPENDS IN PLACE. PT IS SET TO HAVE DIALYSIS CONDUCTED TODAY WITH THE GOAL OF TAKING 2 LITERS OFF. PT WAS HYPERTENSIVE THIS MORNING, BUT PO ANTIHYPERTENSIVE MEDS WERE HELD DUE TO DIALYSIS TREATMENT BEGINNING AT 0830. DR. MANLEY AT [facility] TO ASSESS PT AT 0745 AND GAVE VERBAL ORDERS FOR PT TO STATUS CHANGE TO MED FLOOR THIS AFTERNOON. SPEECH EVALUATION IS SCHEDULED FOR THIS MORNING; PT GIVEN A SMALL AMOUNT OF WATER THIS MORNING AND TOLERATED WELL. WILL CONTINUE TO MONITOR THROUGHOUT THE DAY.
--- NOTE | 2021-07-22 13:11 | NUR ---
AFTERNOON UPDATE: PT RECIEVED DIALYSIS AND FINISHED AT 1115 WITH 2.2 LITERS TAKEN OFF; PT TOLERATED VERY WELL. PT SBP MAINTAINED BETWEEN 150-160; ALL OTHER VITAL SIGNS REMAINED STABLE. SPEECH EVALUATION COMPLETED AT BEDSIDE THIS MORNING BY SPEECH THEREAPIST AT 1045; NEW PUREE/THIN LIQUID DIET INSTITUTED. PT DRINKING WATER WELL. COMPLETE BED BATH AND LINEN CHANGE OCCURED THIS AFTERNOON. AFTER THIS, LUNCH WAS SERVED AND PT DID WELL INDEPENDENTLY FEEDING HERSELF. SOME ASSISTANCE WAS OFFERED WHEN PT GOT TIRED. PT IS ABLE TO FOLLOW MORE COMMANDS THIS AFTERNOON AND IS BEING COOPERATIVE AND SLIGHTLY PARTICIPATING IN CARE. PT/OT CAME BY AT 1300 TO COMPLETE THEREAPY. PT EAGER TO PARTICIPATE. WILL CONTINUE TO MONITOR THIS SHIFT.
--- NOTE | 2021-07-22 18:02 | NUR ---
SHIFT SUM[place]Y: PT ALERT AND ORIENTED TO SELF FOR THE ENTIRE SHIFT; PT CONTINUES TO BE A POOR HISTORIAN AND REQUIRES REORIENTATION AT TIMES. PT'S LUNG SOUNDS REMAINED CLEAR, BUT SLIGHTLY DEMINISHED THROUGHOUT THE SHIFT. PT'S VITAL SIGNS STABLE THROUGHOUT THE SHIFT WITH SBP IN THE 140'S, HR BETWEEN 70-80, 02 98< AND TEMPERATURE AT 97.9. THE PT HAD A SPEECH EVALUATION TODAY AND A PUREE/THIN LIQUID DIET WAS INSTITUED INTO THE PT'S CARE PLAN. PT/OT VISITED THE PT TODAY AND THE PT WAS COOPERATIVE AND PARTICIPATED IN THERAPY. PT CONTINUES TO HAVE GENERAL WEAKNESS AND IS STILL REQUIRING A ONE PERSON ASSIST DURING CARE. PT CURRENTLY INCONTINENT WITH DEPEND IN PLACE LOOSELY DUE TO REDDNESS IN PERINEAL AREA. NYSTYTIN POWDER APPLIED TO MOIST AREAS. PT HAD COMPLETE BED BATH CONDUCTED THIS MORNING AND TOLERATED IT WELL. THE PT BECAME TIRED AROUND 1530 AND NAPPED UNTIL DINNER TRAYS ARRIVED ON THE UNIT. DIALYSIS WAS COMPLETED TODAY AND 2.2 LITERS WERE PULLED OFF, PT TOLERATED WELL. PT HAS HAD NO COMPLAINTS OF PAIN TODAY. UPDATED PICTURES OF CURRENT WOUND STATUS PLACED IN CHART. WOUND CONSULT FOR PT WAS PLACE ON THURSDAY, BUT WOUND CARE CONSULT DID NOT VISIT THE PT TODAY, HOPEFULLY TOMORROW THE PT WILL BE SEEN. GAVE REPORT TO MEDICAL FLOOR NURSE FOR RM 359 AND PT LEFT THE UNIT AT 1758 AND IN TRANSIT TO 359. ATTEMPTED TWO TIMES TO CONTACT PT'S MOTHER, JAN, IN REGARDS TO PT TRANSFER TO 359. PT'S MOTHER PLANS TO VISIT TOMORROW AFTERNOON.
--- NOTE | 2021-07-22 18:36 | NUR ---
1805- PT TX FROM ICU 9 TO 359 BEB TO BED SLIDE TX. PT ALERT TO SELF AND PLACE AND CITY. COULDN'T REMEMBER PRESIDENT OR DATE OR YEAR. TURNED PT AND ASSESSED SKIN ON BACKSIDE INTACT, PLACED ATTENDS. ORIENTED TO ROOM AND CALL LIGHT AN SAFETY. BED ALARM SET.
[2021-07-23 04:48] LABS: BASOPHILS ABSOLUTE AUTO 0.04 K/mm3 (0.00-0.23); BASOPHILS PERCENT AUTO 1 % (0-2); EOSINOPHILS ABSOLUTE AUTO 0.37 K/mm3 (0.00-0.68); EOSINOPHILS PERCENT AUTO 5 % (0-6); Hematocrit 31.6 % (33.0-51.0); IMMATURE GRAN ABSOLUTE AUTO 0.04 K/mm3 (0.00-0.10); IMMATURE GRAN PERCENT AUTO 1 % (0-1); LYMPHOCYTES ABSOLUTE AUTO 0.84 K/mm3 (0.84-5.20); LYMPHOCYTES PERCENT AUTO 11 % (21-46); MONOCYTES ABSOLUTE AUTO 1.07 K/mm3 (0.16-1.47); MONOCYTES PERCENT AUTO 14 % (4-13); Mean Corpuscular HGB Conc 31.6 g/dL (31.5-36.5); Mean Corpuscular Volume 98 fL (80-100); Mean Platelet Volume 10.9 fL (9.1-12.4); NEUTROPHILS ABSOLUTE AUTO 5.55 K/mm3 (1.96-9.15); NEUTROPHILS PERCENT AUTO 70 % (41-73); Platelet Count 429 K/mm3 (150-400); RDW Coefficient Variation 13.4 % (11.7-14.2); RDW Standard Deviation 48.2 fL (35.1-46.3); Red Blood Cell Count 3.23 M/mm3 (3.80-5.20); White Blood Cell Count 7.91 K/mm3 (4.00-11.30)
[2021-07-23 05:10] LABS: Albumin, Blood 2.1 g/dL (3.4-5.0); Anion Gap 9 mmol/L (6-16); Blood Urea Nitrogen 22 mg/dL (8-24); Bun/Creatinine Ratio 6.6 (12.0-20.0); CO2, Blood 24 mmol/L (21-32); Calcium, Blood 8.5 mg/dL (8.5-10.1); Chloride, Blood 106 mmol/L (98-108); Creatinine, Blood 3.32 mg/dL (0.40-1.00); Glomerular Filtration Rate 15 (60-); Glucose, Blood 254 mg/dL (70-99); Magnesium, Blood 2.4 mg/dL (1.6-2.4); Phosphorus, Blood 4.8 mg/dL (2.5-4.9); Sodium, Blood 139 mmol/L (136-145)
--- NOTE | 2021-07-23 06:36 | NUR ---
46 year old was in ICU since 07/19/21 for DKA & sepsis. She was transferred to medical floor yesterday afternoon & VSS. PT on sliding scale & lantus insukin BG in low 200's. She has garbled speech but able to communicate. HAs powerglide infusing at TKO & recieves IV ABX & IV keppra. Had reported dialysis yesterday with 2.2 l taken off per day RN report. She does not know month or year but knows she is in hospital. HAs some wounds to le has wound care consult. On room air PT is aspiration risk .
--- NOTE | 2021-07-24 02:06 | NUR ---
PATIENT ALERT TO SELF AND FAMILY (HOWEVER HER ORIENTATION FLUCTUATED), GARBLED SPEECH NOTED PERIODICALLY. PATIENT NOTED MOANING LOUDLY AND WHEN ASKED IF SHE WAS IN PAIN SHE STATES YES AND SAYS HER "BACK HURTS." HOWEVER WHILE CONVERSING WITH PATIENT SHE FALLS ASLEEP WHILE TALKING/MOANING. OFFERED PATIENT TYLENOL HOWEVER SHE STRONGLY STATED SHE DID NOT WANT IT BECAUSE "IT IS NO USE." PATIENT STATED SHE DOES NOT KNOW WHY THEY STOPPED HER METHADONE AND REPORTS THAT SHE WILL SPEAK WITH MD IN THE MORNING TO GET IT RE-STARTED. PATIENT DID HAVE FENTANYL PRN HOWEVER D/T PATIENT BEING DROWSY AND FALLING ASLEEP IN THE MIDDLE OF CONVERSATION MEDICATION WAS NOT GIVEN. PATIENT REPOSITIONED AND ABLE TO SLEEP AFTERWARDS. TURNED Q2H TO BEST OF STAFF AVAILABILITY. BILAT. HEELS ELEVATED HOWEVER PATIENT FREQUENTLY REPOSITIONS THEM OFF THE PILLOWS. PERMA CATH NOTED TO R.UPPER CHEST WITH NON CHG TEGADERM IN PLACE. STERILE DRESSING CHANGE DONE AND TEGADERM CHG APPLIED. POWERGLIDE IN LUE WITH NS @10ML/HR TKO.
--- NOTE | 2021-07-24 13:09 | NUR ---
1149 - DIFFICULTY WITH PT LINES AND PRESSURES DUE TO CLOTTING. HEPARIN USED PER PROTOCOL. TX STOPPED EARLY UNABLE TO RUN AND FINISH. PT STABLE AND TOLERATED WELL. BLOOD VERY DIFFICULT TO RETURN. SHANIQUA
--- NOTE | 2021-07-24 19:53 | NUR ---
END OF SHIFT SUMMARY: PATIENT DENIED PAIN FOR THE RN, BUT REQUESTED METHADONE MULITPLE TIMES. REINFORCED FOR THE PATIENT THAT THIS IS NOT A MEDICATION THAT IS APPROPRIATE FOR HER AT THIS TIME PER HER DOCTORS. PATIENT SLEPT INTERMITTANTLY THROUGHOUT THE DAY. PATIENT REQUESTED GETTING UP TO THE CHAIR, BUT WAS UNABLE TO HOLD HERSELF SITTING INDEPENDENTLY AT THE BEDSIDE. ASSISTED BACK TO LYING FOR SAFETY. RECOMMENDATION IS FOR THE PATIENT TO DISCHARGE TO SNF. PATIENT REPORTS ONLY WANTS TO GO HOME. PATIENT'S MOTHER AND STEPFATHER DISCUSSED WITH THE PATIENT THAT A SNF WOULD BE A GOOD IDEA. UPDATED CARE MANAGEMENT. PATIENT'S SPEECH STARTS CLEAR, BUT BECOMES GARBLED THE SENTENCE CONTINUES. DIFFICULT TO UNDERSTAND AT TIMES. PATIENT RECEIVED DIALYSIS IN THE ROOM.
--- NOTE | 2021-07-25 04:39 | NUR ---
SHIFT SUMMARY 46 YR F ADMITTED ON 07/19/21. FULL CODE. NO ACUTE CHANGES THIS SHIFT. PT SLEPT FOR MOST OF THE SHIFT BUT RANDOMLY YELLED OUT AND MOANED LOUDLY A COUPLE OF TIMES. SHE IS CONFUSED AND HER SPEECH IS SLURRED SO SHE IS HARD TO UNDERSTAND. HOWEVER, SHE VERY CLEARLY STATED TO THIS NURSE THAT SHE IS UNHAPPY THAT THE DOC TOOK HER OFF OF METHADONE. SHE STATES THAT SHE HAS TAKEN IT FOR YEARS AND DOES NOT UNDERSTAND WHY "THEY" ARE DOING THIS TO HER. PLAN IS FOR SNF PLACEMENT.
[2021-07-25] MEDS ORDERED: LEVE500 PO ×2 (08:06→08:14)
--- NOTE | 2021-07-25 18:22 | NUR ---
SHIFT SUMMARY; PATIENT ABLE TO WORK WITH PT AND OT AT THE SAME TIME IN HER ROOM. SHE WAS UP SITTING ON THE SIDE OF BED AND ABLE TO HOLD ONTO A RAILING TO KEEP HER SELF STEADY. RETURNED TO BED AND RESTED MOST OF THE AFTERNOON BECOMING VERY TIRED AFTER THERAPIES. PATIENT IS TAKING HER PILLS CRUSHED IN APPLESAUCE. SHE WAS ABLE TO FEED HERSELF TODAY. SHE IS STILL UNABLE TO COMMUNICATE MORE THAN A FEW WORDS AT A TIME WITHOUT HER SPEECH BECOMING GARBLED AND NONSENSICAL. SHE IS ABLE TO FOLLOW SIMPLE COMMANDS HOWEVER BECOMES CONFUSED IF ASKED TO PICK SOMETHING UP AND THEN PLACE IT BACK ON THE TABLE. HER NEURO CHECKS ARE DONE THROUGHOUT SHIFT AND NO OBVIOUS CHANGES ARE NOTED. WILL REMAIN AVAILABLE FOR THIS PATIENT FOR ANY WANTS OR NEEDS UNTIL REPORT AND HAND OFF TO NOC SHIFT RN.
--- NOTE | 2021-07-26 04:29 | NUR ---
SHIFT SUMMARY 46 YR F ADMITTED ON 07/19/21. FULL CODE. NO ACUTE CHANGES THIS SHIFT. PT HAS A VERY FLAT EFFECT BUT DOES RANDOMLY MOAN LOUDLY. WHEN ASKED WHAT IS WRONG SHE MUMBLES INCOHERANTLY. SHE HAS SLEPT MOST OF THIS SHIFT AND THERE IS VERY LITTLE REACTION OUT OF HER WHEN SHE IS TURNED OR CHANGED. DISCHARGE PLAN IS FOR PLACEMENT AT A SNF.
--- NOTE | 2021-07-26 08:43 | NUR ---
AM CBG WAS 427. HUMULIN GIVEN 10UNITS SC ALONG WITH REGULAR SC DOSE GLARGINE 10UNITS SC. NOTIFIED RECHECK CBG IN ONE HOUR.
--- NOTE | 2021-07-26 17:50 | NUR ---
SHIFT SUMMARY PT IS AOX1, FULL CODE. PT IS USING A BEDPAN AND ON BEDREST. SHE WENT TO DIALYSIS TODAY. SHE ALSO RECEIVED A BED BATH TODAY. SHE HAS A DEFINITIVE SORE ON HER RIGHT HEEL, I CHANGED THE MEPILEX TODAY. SHE HAS A HARDENED, SORE ON THE R LEG WELL. HER ROOM MATE VISITED HER TODAY, ONLY STAYED FOR A SHORT WHILE. SHE IS A CBG ACHS. SHE IS COOPERATIVE AND FOLLOWS DIRECTIONS BUT IT TAKES TIME TO PROCESS THE INSTRUCTIONS. REORIENTING WHEN POSSIBLE. THE PLAN FOR HER IS TO GO TO A SNIF. WILL CONTINUE TO MONITOR AND ASSESS UNTIL NOC SHIFT ARRIVES. CALL LIGHT PLACED WITHIN REACH.
--- NOTE | 2021-07-26 23:21 | NUR ---
CBG 368. GLARGINE 10 UNITS GIVEN AND HUMILIN R 5 UNITS GIVEN PER SLIDING SCALE. HOSPITALIST DR TERRY NOTIFIED AND REPORTS NO MORE COVERAGE NEEDED.
--- NOTE | 2021-07-26 23:31 | NUR ---
HOSPITALIST DR TERRY CHANGED PO KEPPRA 750 MG TO ORAL SYRINGE 750 MG. PO MED NOT ABLE TO CRUSH.
--- NOTE | 2021-07-27 04:01 | NUR ---
SHIFT SUMMARY PATIENT HAD NO ACUTE CHANGES OBSERVED. AXOX 2-3 WITH CONFUSION AT TIMES. BEDREST. CBG 368 AND SCHEDULE GLARGINE AND HUMULIN R GIVEN PER EMAR. HOSPITALIST DR TERRY NOTIFIED AND REPORTS NO ADDITIONAL COVERAGE. PO KEPPRA 750 MG CHANGED TO ORAL SYRINGE BY DR TERRY. BP ELEVATED BEFORE SCHEDULE HYPERTENSION MEDICATION. VSS/AFEBRILE. DENIES PAIN. SOB, AND N/V. ON CONTINUOUS PULSE OXIMETRY STATING IN 90'S WHILE AWAKE. DESTATS INTO THE 80'S WHILE SLEEPING AND BACK INTO THE 90'S. ABLE TO SLEEP MOST OF THE SHIFT. CALL LIGHT IN REACH. BED IN LOWEST POSITION. WILL CONTINUE TO MONITOR UNTIL DAY SHIFT NURSE ASSUMES CARE.
[2021-07-27 05:18] LABS: Hematocrit 31.9 % (33.0-51.0); Hemoglobin 10.1 g/dL (11.5-16.0)
[2021-07-27 05:49] LABS: Albumin, Blood 2.4 g/dL (3.4-5.0); Anion Gap 9 mmol/L (6-16); Blood Urea Nitrogen 28 mg/dL (8-24); Bun/Creatinine Ratio 7.4 (12.0-20.0); CO2, Blood 29 mmol/L (21-32); Calcium, Blood 9.5 mg/dL (8.5-10.1); Chloride, Blood 104 mmol/L (98-108); Creatinine, Blood 3.78 mg/dL (0.40-1.00); Glomerular Filtration Rate 14 (60-); Glucose, Blood 331 mg/dL (70-99); Magnesium, Blood 2.5 mg/dL (1.6-2.4); Phosphorus, Blood 4.7 mg/dL (2.5-4.9); Potassium, Blood 4.1 mmol/L (3.5-5.5); Sodium, Blood 142 mmol/L (136-145)
--- NOTE | 2021-07-27 12:12 | NUR ---
ELEVATED BP DR. MANLEY NOTIFIED OF PT'S ELEVATED BP 164/78 AND HR OF 115. CONTINUE TO MONITOR AT THIS TIME. PER DR. MANLEY GIVE HYDRALAZINE OF SBP IS >175.
--- NOTE | 2021-07-27 12:16 | NUR ---
DR. MANLEY NOTIFIED THAT PT IS AXIOUS. ANXIETY MEDICATION REQUESTED.
--- NOTE | 2021-07-27 19:30 | NUR ---
SHIFT SUMMARY PT REMAINS IN THE HOSPITAL PLACEMENT CONCERNS AND CONTINUED MEDICAL MANAGEMENT. PT IS ABLE TO FEED HERSELF BUT NEEDS MUCH ASSISTANCE WITH ADL'S. PT HAS EXPRESSIVE APHAGIA BUT IS ABLE TO COMMUNICATE. PT REQUIRES ASSISTANCE WITH MOVEMENT AND REQUIRES Q2 TURNS. REPORT GIVEN TO CATRACHITO BERRY.
--- NOTE | 2021-07-28 04:43 | NUR ---
Patient with low grade temp at beginning of shift but normal temp in the morning. Patient able to swallow all of her meds crushed in applesauce at HS. Patient moaning and crying out in pain at the beginning of the shift. Fentanyl given. Patient slept comfortably the rest of the night. Turned Q2 hours. Heels elevated. Continous pulse ox shows that if patient lays too flat she becomes apneic and her O2 sats drop. Patient with HOB elevated throughout the night. Powerline patent. Morning labs obtained without difficulty.
[2021-07-28 05:11] LABS: Hematocrit 30.8 % (33.0-51.0); Hemoglobin 9.6 g/dL (11.5-16.0)
[2021-07-28 05:38] LABS: Albumin, Blood 2.3 g/dL (3.4-5.0); Anion Gap 6 mmol/L (6-16); Blood Urea Nitrogen 34 mg/dL (8-24); Bun/Creatinine Ratio 7.7 (12.0-20.0); CO2, Blood 27 mmol/L (21-32); Calcium, Blood 9.5 mg/dL (8.5-10.1); Chloride, Blood 105 mmol/L (98-108); Creatinine, Blood 4.43 mg/dL (0.40-1.00); Glomerular Filtration Rate 12 (60-); Glucose, Blood 264 mg/dL (70-99); Magnesium, Blood 2.5 mg/dL (1.6-2.4); Phosphorus, Blood 5.5 mg/dL (2.5-4.9); Potassium, Blood 4.8 mmol/L (3.5-5.5); Sodium, Blood 138 mmol/L (136-145)
--- NOTE | 2021-07-28 12:05 | NUR ---
DR. MANLEY NOTIFIED OF BS OF 368 AND REGULAR [facility] SOFT DIET ORDER. ORDER RECEIVED TO CHANGE DIET TO ADA/[facility] SOFT DIET. GIVEN NORMAL DOSE OF INSULIN.
--- NOTE | 2021-07-28 17:11 | NUR ---
PATIENT BITES DOWN ON SMALL CAPSULES THAT ARE NOT SUPPOSED TO BE CRUSEHD, EVEN WHEN GIVEN WITH APPLESAUCE. PATIENT CHEWS EVEN WITH CRUSHED MEDS IN APPLESAUCE.
--- NOTE | 2021-07-28 18:16 | NUR ---
SHIFT SUMMARY: PATIENT SLEEPS INTERMITTENTLY THROUGHOUT SHIFT. WHEN AWAKE, SHE IS ALERT AND ABLE TO ANSWER QUESTIONS, BUT ANSWERS SLOWLY. PATIENT REPORTS HAVING PAIN "ALL OVER" SEVERAL TIMES THROUGHOUT SHIFT. MEDICATED PER EMAR. ABLE TO TAKE MEDS CRUSHED IN APPLESAUCE. PATIENT BITES DOWN AND CHEWS ANY MEDS THAT ARE NOT ABLE TO BE CRUSHED, EVEN IF THEY ARE VERY SMALL. PATIENT HAD BLOOD SUGAR OF 368. DR. MANLEY WAS CALLED. HE DIRECTED US TO GIVE THE PATIENT HER STANDARD DOSE OF INSULIN LISPRO. PATIENT HAS APNEIC EPISODES WHEN SLEEPING. HOB WAS ELEVATED, WHICH IMPROVES O2 SATURATION. CALL LIGHT IN REACH. BED IN LOW POSITION. WILL CONTINUE TO MONITOR AND GIVE REPORT TO NIGHT NURSE.
--- NOTE | 2021-07-29 04:02 | NUR ---
SHIFT SUMMARY PATIENT HAD NO ACUTE CHANGES. AXOX 2 AND SLOW TO RESPOND. BEDREST. POWERGLIDE AND PERMA CATH INTACT. CBG 354. VSS/AFEBRILE. PATIENT HAS APNEIC EPISODES SLEEPING. ORAL KEPPRA GIVEN PER EMAR. TAKES MEDICATION CRUSHED IN APPLESAUCE. SLEPT MOST OF SHIFT. CALL LIGHT IN REACH. BED IN LOWEST POSITION. WILL CONTINUE TO MONITOR UNTIL DAY SHIFT NURSE ASSUMES CARE.
[2021-07-29 05:03] LABS: Hematocrit 31.5 % (33.0-51.0); Hemoglobin 9.5 g/dL (11.5-16.0)
[2021-07-29 06:06] LABS: Magnesium, Blood 2.7 mg/dL (1.6-2.4)
[2021-07-29 06:16] LABS: Albumin, Blood 2.4 g/dL (3.4-5.0); Anion Gap 28 mmol/L (6-16); Blood Urea Nitrogen 57 mg/dL (8-24); Bun/Creatinine Ratio 11.1 (12.0-20.0); CO2, Blood 8 mmol/L (21-32); Calcium, Blood 9.3 mg/dL (8.5-10.1); Chloride, Blood 95 mmol/L (98-108); Creatinine, Blood 5.12 mg/dL (0.40-1.00); Glomerular Filtration Rate 10 (60-); Glucose, Blood 881 mg/dL (70-99); Phosphorus, Blood 5.8 mg/dL (2.5-4.9); Potassium, Blood 6.6 mmol/L (3.5-5.5); Sodium, Blood 131 mmol/L (136-145)
--- NOTE | 2021-07-29 06:27 | NUR ---
NOTIFIED DR CASTANEDA THAT PT HAD BEEN TRANSFERRED TO ICU [address] TERRY ORDERED STAT HEMODIALYSIS. NURSING DEVELOPMENT OFFICER NOTIFIED AND SHE WILL PAGE THE DIALYSIS NURSE.
[2021-07-29 06:42] LABS: PCO2 Arterial 15.4 mmHg (35-45); PO2 Arterial 477 mmHg (80-100); pH Blood Arterial 6.98 (7.35-7.45)
[2021-07-29 06:43] LABS: Glucose, Blood 1035 mg/dL (70-99)
--- NOTE | 2021-07-29 07:06 | NUR ---
CARE DIRECTOR RN/INTUBATION/TRANSFER TO ICU 0600 CARE DIRECTOR RN FOR DECREASED LOC, RAPID GASPING RESP RATE WITH LUNGS COARSE. RT AT BEDSIDE TRYING TO OBTAIN ABG. 0605 DR TERRY AT BEDSIDE. PREPARE TO INTUBATED. 0614 PT MED WITH SUCC 100 MG AND ETOM 15 MG IV VIA POWER GLIDE TO LEFT UPPER ARM. LABS DRAWN AND SENT BEFORE INTUBATION. 0615 PT INTUBATED BY RT WITH DR TERRY ASSIST WITH GLIDE SCOPE. ET TUBE 7.5, 22 AT TEETH. EQUAL BREATH SOUNDS, NO NOISE OVER STOMACH, AND POSITIVE COLOR CHANGE. CRITICAL LABS RECEIVED POTASSIUM 6.6, CO2 8, AND GLUCOSE 881. DR TERRY NOTIFIED. STAT DIALYSIS AND INSULIN GTT. DR CASTANEDA NOTIFIED BY MED FLOOR CHARGE NURSE. 0625 PT TRANSFERED TO ICU 5 VIA BED WITH RT BAGGING PT. PLACED ON VENT. KRISTI LUNA ASSUMED CARE.
--- NOTE | 2021-07-29 07:09 | NUR ---
ASSUMED PT CARE IN ICU AT 0625 PT ARRIVED INTUBATED WITH RT BAGGING. VENT SET UP ON SPONTANEOUS WITH PS 5/5; FIO2 40%, RR >30. PT IS VERY DIAPHORETIC AND CLAMMY. BLOOD SUGAR >1000. TEMP HOLLINGSWORTH PLACED; AFEBRILE. CLEAR YELLOW URINE DRAINING TO GRAVITY. OG PLACED ONCE PT ARRIVED. PERMACATH SITE WAS UNCOVERED AND NOT SUTURED; STERILE TECHNIQUE USED TO CLEANSE SITE AND COVERED WITH CHG TEGADERM DRESSING. XRAY CAME TO VERIFY TUBE PLACEMENT. PT IS NOT RESPONSIVE; HOWEVER, HR INCREASED FROM LOW 100'S TO 170'S; THEREFORE, PROPOFOL STARTED AT A LOW DOSE, CURRENTLY AT 10MCG/KG/MIN. NS BOLUS FINISHING TO INFUSE WITH AN ORDERED MAINTENANCE DOSE TO START AT 100ML/HR. INSULIN GTT STARTED AT 4 UNITS/HR. 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 ALY AREA AND RECTAL AREA IS RED/PINK, WHICH APPEARS TO BE FUNGAL IN NATURE. DR. CASTANEDA TO BEDSIDE WITH DIALYSIS ORDERS, WELL ORDERS FOR SOLUMEDROL 125MG IV NOW. REPORT HANDED OFF TO KRISTI GONZALEZ
--- NOTE | 2021-07-29 07:21 | NUR ---
RAPID RESPONSE INITIATED. HOSPITALIST PRESENT AND RAPID RESPONSE TEAM. PATIENT TRANSFER FROM MEDICAL ROOM 359 TO ICU 05 AFTER RAPID REPSONSE INTERVENTIONS.
[2021-07-29 07:37] LABS: Source, Urine Foley catheter
[2021-07-29 07:52] LABS: Appearance, Urine Clear (Clear); Bilirubin, Urine Neg (Neg); Blood, Urine 2+ (Neg); Color, Urine Yellow (P-Yellow); Glucose Qualitative, Urine 4+ (Neg); Ketones, Urine 4+ (Neg); Leukocyte Esterase, Urine Neg (Neg); Nitrite, Urine Neg (Neg); Protein, Urine 4+ (Neg); Urobilinogen, Urine NORM (Normal)
[2021-07-29 08:06] LABS: U Amphetamine Screen Not Detected; U Barbituate Screen Not Detected; U Benzodiazapine Screen Not Detected; U Buprenorphine Screen Not Detected; U Cannabinoids Screen Not Detected; U Cocaine Screen Not Detected; U Methadone Screen Not Detected; U Methamphetamine Screen Not Detected; U Opiates Screen Not Detected; U Oxycodone Screen Not Detected; U Phencyclidine Screen Not Detected; U Propoxyphene Screen Not Detected
[2021-07-29 08:08] LABS: Red Blood Cells, Urine 0-2 /hpf (0-2); White Blood Cells, Urine 0-2 /hpf (0-5)
[2021-07-29 08:09] LABS: Bacteria Not Seen /hpf; Renal Epithelial Rare /hpf (0-Rare); Squamous Epithelial Cells Mod /hpf (Few); Transitional Epithelial Cells Few /hpf (0-Rare)
[2021-07-29 08:34] LABS: BASOPHILS ABSOLUTE AUTO 0.07 K/mm3 (0.00-0.23); BASOPHILS PERCENT AUTO 1 % (0-2); EOSINOPHILS ABSOLUTE AUTO 0.01 K/mm3 (0.00-0.68); EOSINOPHILS PERCENT AUTO 0 % (0-6); Hematocrit 34.3 % (33.0-51.0); Hemoglobin 9.3 g/dL (11.5-16.0); IMMATURE GRAN ABSOLUTE AUTO 0.31 K/mm3 (0.00-0.10); IMMATURE GRAN PERCENT AUTO 2 % (0-1); LYMPHOCYTES PERCENT AUTO 13 % (21-46); MONOCYTES ABSOLUTE AUTO 0.58 K/mm3 (0.16-1.47); MONOCYTES PERCENT AUTO 5 % (4-13); Mean Corpuscular HGB 31.2 pg (26.0-34.0); Mean Corpuscular HGB Conc 27.1 g/dL (31.5-36.5); Mean Corpuscular Volume 115 fL (80-100); NEUTROPHILS ABSOLUTE AUTO 10.11 K/mm3 (1.96-9.15); NEUTROPHILS PERCENT AUTO 80 % (41-73); Platelet Count 718 K/mm3 (150-400); RDW Coefficient Variation 14.6 % (11.7-14.2); RDW Standard Deviation 61.1 fL (35.1-46.3); Red Blood Cell Count 2.98 M/mm3 (3.80-5.20); White Blood Cell Count 12.68 K/mm3 (4.00-11.30)
[2021-07-29 08:57] LABS: Bun/Creatinine Ratio 11.3 (12.0-20.0); Calcium, Blood 9.5 mg/dL (8.5-10.1); Creatinine, Blood 5.14 mg/dL (0.40-1.00)
--- NOTE | 2021-07-29 09:38 | NUR ---
ASSUMED CARE BEDSIDE REPORT FROM HARMONY BERRY. PT INTUBATED AND SEDATED. VENT SETTINGS SPONT 5/5/40%. LUNGS CLEAR. RR 40'S. TV 500-600ML. PROPOFOL GTT INFUSING. PT GRIMACES c CARE. SLIGHT MOVEMENT NOTED TO BUE. OPENS EYES SPONT, DOES NOT TRACK. ST ON MONITOR, RATE 140'S AT THIS TIME. BP STABLE. IVF AT 100ML/HR. OGT TO LIS, GREEN BILE OUT. INSULIN GTT INFUSING, q1 HR CBG. RIGHT FOOT COOL, CAP REFILL <5 SEC, MOTTLING TO KNEE. MASS POSTERIOR CALF. UNABLE TO DOPPLER ANY PEDAL PULSES. PERMACATH TO RIGHT CHEST WALL, DRESSING PLACED BY NOC RN. POWERGLIDE TO MAYRAE. SAW CLEANER AT BEDSIDE. PLAN FOR TODAY, CTA HEAD/NECK/CHEST/RLE. BLOOD CULTURES, VANCO, CEFEPIME. WILL CONTINUE TO MONITOR.
[2021-07-29 10:38] LABS: Glucose, Blood 539 mg/dL (70-99)
[2021-07-29 16:11] LABS: Bun/Creatinine Ratio 9.5 (12.0-20.0); Calcium, Blood 8.9 mg/dL (8.5-10.1); Creatinine, Blood 2.63 mg/dL (0.40-1.00); Potassium, Blood 4.3 mmol/L (3.5-5.5)
--- NOTE | 2021-07-29 17:41 | NUR ---
SHIFT SUMMARY PT DIALYSED THIS SHIFT, 2L OFF. TOLERATED DIALYSIS WELL, HR IMPROVED TO 110'S FROM 140'S, BP STABLE. PT OPENS EYES SPONT, MOVES ALL EXTREMITES. DOES NOT FOLLOW COMMANDS. PROPOFOL ON STANDBY. WILL CONTINUE TO LEAVE ON STANDBY PT TOLERATES. VENT SETTINGS SPONT 5/5/30%. LUNGS CLEAR. PT NO LONGER TACHYPENIC OR TAKING HIGH TV. TV 450-500 ML. COUGH/GAG/SWALLOW REFLEX. TUBE FEEDS STARTED, 25 ML/HR. GOAL 30 ML/HR. INSULIN GTT BEING TITRATED OFF. CBG 300'S, GAP CLOSED, CO2 WNL. HOLLINGSWORTH PATENT, DRAINING 30 ML CLEAR YELLOW URINE, SENT TO LAB THIS AM. POWERGLIDE PLACED TO RUE, DRESSING C/D/I. WILL CONTINUE TO MONITOR UNTIL REPORT TO ONCOMING NURSE.
--- NOTE | 2021-07-29 20:13 | NUR ---
PATIENT REMAINS INTUBATED WITH VENT ON SPONT, PS 13, PEEP 5, FIO2 30%. SUCTIONING SMALL AMT OF THICK CLEAR SPUTUM. LUNG SOUNDS DECREASED IN THE BASES COARSE TO LEFT BASE. PATIENT FOLLOWING SIMPLE DIRECTIONS, OPENING EYES APPEARS TO BE TRACKING. CORONA BUT SLOW AND WEAK. BILAT WRIST RESTRAINTS REMAIN IN PLACE TO PREVENT ACCIDENTAL SELF EXTUBATION. PROPOFOL DRIP REMAINS OFF. INSULIN DRIP REMAINS OFF. OG IN PLACE WITH NEPRO AT 25 CC/HR. DIALYSIS PERMACATH IN PLACE TO RIGHT CHEST WITH DRESSING CD&I. DRESSINGS TO BOTH HEALS CD&I WITH BOOTIES IN PLACE.
--- NOTE | 2021-07-29 22:17 | NUR ---
ASSUMED CARE OF PT
--- NOTE | 2021-07-29 22:18 | NUR ---
PATIENT AWAKE AND RESTLESS, MOVING BOTH FEET BACK AND FORTH, PULLING ON WRIST RESTRAINTS AT TIMES. NODS YES SLIGHTLY WHEN ASKED IF NEEDING SOMETHING TO HELP HER RELAX, PROPOFOL RESTARTED AT 30 MCG/KG/MIN. TEMP CONTINUES 100.4 TYLENOL PER OG GIVEN. HYDRALAZINE IV GIVEN FOR HYPERTENSION. BED BATH GIVEN DURING BATH HEART RATE UP TO 130'S. REPORT GIVEN TO IVANIA BERRY.
[2021-07-30 02:45] LABS: BASOPHILS ABSOLUTE AUTO 0.04 K/mm3 (0.00-0.23); BASOPHILS PERCENT AUTO 0 % (0-2); EOSINOPHILS PERCENT AUTO 0 % (0-6); Hematocrit 28.3 % (33.0-51.0); Hemoglobin 9.2 g/dL (11.5-16.0); IMMATURE GRAN ABSOLUTE AUTO 0.47 K/mm3 (0.00-0.10); IMMATURE GRAN PERCENT AUTO 2 % (0-1); LYMPHOCYTES ABSOLUTE AUTO 1.58 K/mm3 (0.84-5.20); LYMPHOCYTES PERCENT AUTO 7 % (21-46); MONOCYTES ABSOLUTE AUTO 3.64 K/mm3 (0.16-1.47); MONOCYTES PERCENT AUTO 16 % (4-13); Mean Corpuscular HGB 31.1 pg (26.0-34.0); Mean Corpuscular HGB Conc 32.5 g/dL (31.5-36.5); Mean Platelet Volume 9.9 fL (9.1-12.4); NEUTROPHILS ABSOLUTE AUTO 17.77 K/mm3 (1.96-9.15); NEUTROPHILS PERCENT AUTO 76 % (41-73); Platelet Count 548 K/mm3 (150-400); RDW Coefficient Variation 14.6 % (11.7-14.2); RDW Standard Deviation 49.8 fL (35.1-46.3); Red Blood Cell Count 2.96 M/mm3 (3.80-5.20)
[2021-07-30 03:01] LABS: Albumin, Blood 2.4 g/dL (3.4-5.0); Anion Gap 11 mmol/L (6-16); Blood Urea Nitrogen 33 mg/dL (8-24); Bun/Creatinine Ratio 9.5 (12.0-20.0); CO2, Blood 26 mmol/L (21-32); Calcium, Blood 8.9 mg/dL (8.5-10.1); Chloride, Blood 103 mmol/L (98-108); Creatinine, Blood 3.46 mg/dL (0.40-1.00); Glomerular Filtration Rate 16 (60-); Glucose, Blood 187 mg/dL (70-99); Magnesium, Blood 2.2 mg/dL (1.6-2.4); Phosphorus, Blood 3.4 mg/dL (2.5-4.9); Potassium, Blood 3.7 mmol/L (3.5-5.5); Sodium, Blood 140 mmol/L (136-145)
[2021-07-30 03:15] LABS: Mean Corpuscular Volume 96 fL (80-100)
--- NOTE | 2021-07-30 06:14 | NUR ---
PT REMAINS ON VENTILATOR ON SPONTANEOUS SETTINGS WITH PRESSURE SUPPORT THROUGHOUT NOC, SATS MAINTAIN 99% WITH FIO2 30%. HYPERTENSIVE THROUGHOUT NOC, HYDRALAZINE ADMIN X 3, LABETOLOL ADMIN X 2, LAST PRESSURE 166/47, CONTINUES IN SINUS TACH. CONTINUES TO BE ROUSABLE TO VERBAL STIMULI AND FOLLOWS DIRECTIONS. TUBE FEEDS CONTINUE, RESIDUALS LESS THAN 20 ML EACH CHECK THIS SHIFT. BLOOD GLUCOSE LEVELS BETWEEN 180 AND 250 THIS SHIFT. PROPOFOL WAS TITRATED UP TO 35 MCG/KG/MIN PT NODDED YES WHEN ASKED IF SHE WAS MORE AWAKE THAN WAS COMFORTABLE, AT THIS GTT RATE, SHE APPEARS TO BE SLEEPING WHEN UNDISTURBED.
--- NOTE | 2021-07-30 10:32 | NUR ---
ASSUMED CARE REPORT FROM IVANIA RN AT 0700. PT INTUBATED AND SEDATED. VENT SETTINGS SPONT 10/5/30%. RATE 20'S, TV 250-350. LUNGS CLEAR. COUGH/GAG/SWALLOW REFLEX PRESENT. PROPOFOL PLACED ON STANDBY. FOLLOWS SIMPLE COMMANDS. GRIMACES c CARE. SPONT MOVEMENT TO ALL EXT. ST ON MONITOR, RATE 110'S. HTN NOTED. ABD ROUND, SOFT, NON TENDER. BT X 4. BOWEL CARE PROVIDED. HOLLINGSWORTH PATENT, PT ANURIC. WOUNDS TO BLE, SEE SHIFT ASSESSMENT. PG X 2, DRESSING C/D/I. WILL CONTINUE TO MONITOR.
[2021-07-30 12:31] LABS: Vancomycin, Trough 30.5 ug/mL (5.0-10.0)
--- NOTE | 2021-07-30 15:16 | NUR ---
SHIFT SUMMARY: PT TAKEN OFF SEDATION AT 0742. MORNING MEDICATIONS ADMINISTERED AT 0915 VIA PT BY STUDENT NURSE CAT. CATH CARE/ALY CARE PERFORMED AT 1100 AND POWDER APPLIED TO ALY AREA. SUPPOSITORY ADMINISTERED AT 1100. REASSESSMENT SHOWED PATIENT TOLERATED SUPPOSITORY WITH MINIMAL RESISITANCE. STUDENT NURSE PERFORMED SCHEDULED 1200 ORAL CARE. PATIENT TOLERATED WELL. STUDENT NURSE ADMINISTERED 1200 MEDICATIONS AFTER REVIEWING MOST RECENT LABS. REASSESSMENT SHOWS NO ADVERSE EFFECTS. PATIENT ET TUBE ASSESSED AT 22CM AT TEETH WITH A 7.5 TUBE. ATTENDING NURSE ERVIN CHANGED LEFT HEEL DRESSING AT 1230.
--- NOTE | 2021-07-30 17:42 | NUR ---
SHIFT SUMMARY PT REMAINS INTUBATED. VENT SETTINGS SPONT 10/5/30%. RR 20'S. TV 300'S. LUNGS CLEAR. SCANT THIN CLEAR SECRETIONS FROM ETT. PROPOFOL ON STANDBY SINCE THIS AM. GOAL TO REMAIN OFF SEDATION FOR POSSIBLE EXTUBATION TOMORROW IF POSSIBLE. COUGH/GAG/SWALLOW PRESENT. FOLLOWS SIMPLE COMMANDS. OPENS EYES SPONT. ST ON MONITOR, RATE 110'S. BP STABLE, HOME HTN MEDS RESTARTED. TUBE FEEDS DECREASED TO 25 ML/HR, MINIMAL RESIDUALS. ENEMA DONE THIS SHIFT, MEDIUM FORMED BROWN STOOL OUT IMMEDIATELY. EVALUATED BY IR TODAY FOR POSSIBLE ART OCC, PT TO F/U OUTPT. HOLLINGSWORTH PATENT, DRAINED 250 ML CLEAR YELLOW URINE TO GRAVITY. WILL CONTINUE TO MONITOR UNTIL REPORT TO ONCOMING NURSE.
--- NOTE | 2021-07-30 20:27 | NUR ---
PATIENT REMAINS INTUBATED VENT SPONT 10/5 FIO2 30% SUCTIONING SMALL AMT OF WHITE SPUTUM. FOLLOWING SIMPLE DIRECTIONS, BUT SLOW TO RESPOND. PROPOFOL REMAINS OFF. OG IN PLACE WITH NEPRO AT GOAL RATE OF 25 CC/HR. PERMACATH TO RIGHT CHEST WITH DRESSING CD&I.
--- NOTE | 2021-07-31 00:03 | NUR ---
DUE TO PATIENT GLUCOSE DOWN TO 70, 60 CC OF APPLE BETTYE GIVEN VIA OG WITH MEDICATIONS. WILL CONTINUE TO MONITOR GLUCOSE CLOSELY
--- NOTE | 2021-07-31 07:00 | NUR ---
PATIENT REMAINS INTUBATED. CONTINUED ON SPONT T/O NIGHT. AWAKENS TO VERBAL AND TACTILE STIMULI, FOLLOWING SIMPLE DIRECTIONS. PATIENTS GLUCOSE DOWN TO 41 TONIGHT AND DESPITE D5W 250 CC BOLUS GIVEN AND NEPRO 240 CC, AND APPLE BETTYE 60 CC GIVEN CONTINUES TO BE HYPOGLYCEMIC WITH GLUCOSE 60'S ORDER OBTAINED FOR D5W AT 50/HR GLUCOSE CONTINUED TO DROP SO D5W INCREASED TO 75 CC/HR. NEPRO CONTINUES VIA OG AT GOAL RATE OF 25 CC/HR.
[2021-07-31 07:41] LABS: BASOPHILS ABSOLUTE AUTO 0.05 K/mm3 (0.00-0.23); BASOPHILS PERCENT AUTO 0 % (0-2); EOSINOPHILS ABSOLUTE AUTO 0.04 K/mm3 (0.00-0.68); EOSINOPHILS PERCENT AUTO 0 % (0-6); Hematocrit 28.9 % (33.0-51.0); Hemoglobin 9.2 g/dL (11.5-16.0); IMMATURE GRAN PERCENT AUTO 1 % (0-1); LYMPHOCYTES ABSOLUTE AUTO 0.96 K/mm3 (0.84-5.20); LYMPHOCYTES PERCENT AUTO 4 % (21-46); MONOCYTES PERCENT AUTO 10 % (4-13); Mean Corpuscular HGB Conc 31.8 g/dL (31.5-36.5); Mean Corpuscular Volume 97 fL (80-100); NEUTROPHILS ABSOLUTE AUTO 21.27 K/mm3 (1.96-9.15); NEUTROPHILS PERCENT AUTO 85 % (41-73); Platelet Count 440 K/mm3 (150-400); RDW Standard Deviation 53.1 fL (35.1-46.3); Red Blood Cell Count 2.97 M/mm3 (3.80-5.20); White Blood Cell Count 25.12 K/mm3 (4.00-11.30)
[2021-07-31 07:48] LABS: Albumin, Blood 2.2 g/dL (3.4-5.0); Anion Gap 11 mmol/L (6-16); Blood Urea Nitrogen 47 mg/dL (8-24); Bun/Creatinine Ratio 10.4 (12.0-20.0); CO2, Blood 25 mmol/L (21-32); Calcium, Blood 8.8 mg/dL (8.5-10.1); Chloride, Blood 103 mmol/L (98-108); Creatinine, Blood 4.53 mg/dL (0.40-1.00); Glomerular Filtration Rate 11 (60-); Glucose, Blood 83 mg/dL (70-99); Magnesium, Blood 2.8 mg/dL (1.6-2.4); Potassium, Blood 3.4 mmol/L (3.5-5.5); Sodium, Blood 139 mmol/L (136-145)
--- NOTE | 2021-07-31 09:17 | NUR ---
ASSUMED CARE BEDSIDE REPORT FROM RAMBO BERRY. PT INTUBATED. VENT SETTINGS SPONT 10/5/30%. TV 300'S. RR 30'S. LUNGS COARSE THROUGHOUT. NO IMPROVEMENT c SUCTIONING. SMALL THICK WHITE SECRETIONS THROUGH ETT. COUGH/GAG/SWALLOW REFLEX PRESENT. PT DIFFICULT TO ROUSE BUT FOLLOWS SIMPLE COMMANDS. CORONA. OGT IN PLACE, TUBE FEEDS AT GOAL, MINIMAL RESIDUALS. PT HYPOGLYCEMIC OVER NOC. D5 AT 100ML/HR. Q2 CBG. HOLLINGSWORTH PATENT, DRAINING CLEAR YELLOW URINE TO GRAVITY. VSS. PLAN FOR DIALYSIS TODAY. WILL CONTINUE TO MONITOR.
--- NOTE | 2021-07-31 12:41 | NUR ---
Echocardioghram completed.
--- NOTE | 2021-07-31 13:21 | NUR ---
CASE CONFERENCE: I placed a call today to pt's mother Brooke to ask how she's doing today, with regard to the recent changes in her daughter Janis's condition. I was made aware that today is Brooke's birthday, so I wished her a happy birthday. This appeared to brighten her mood significantly. She talked a lot about raising her grandchildren, and called them the "highlight of my life". During the conversation, pt's mom verbalized that she had been "hoping to have time alone with both Reyna and Reyna's daughter" now that Reyna's is incarcerated. She states she realizes the patient will likely not have a good outcome, and that scares her. I shared this information with bedside RN and Palliative to remain available.
--- NOTE | 2021-07-31 17:24 | NUR ---
SHIFT SUMMARY PT REMAINS INTUBATED, OFF SEDATION. PT MORE ALERT, LOOKING AROUND ROOM. FOLLOWS COMMANDS. OCCASIONALLY NODS HEAD. LUNGS COARSE. VENT SETTINGS SPONT 10/5/30%. DIALYSIS COMPLETE THIS SHIFT. MAP 65 AFTER DIALYSIS, CLONDINE HELD. D5 TITRATED OFF AT 1400, 10 UNITS GLARGINE GIVEN, ORDERS TO RESUME SLIDING SCALE AND CALL NOC HOSP TO DISCUSS 2100 GLARGINE IF NEEDED. TUBE FEEDS REMAIN AT GOAL c MINIMAL RESIDUALS. HOLLINGSWORTH PATENT, DRAINING TO GRAVITY. NICOLASA CLOTHING MAN ASSESSED AND PHOTOGRAPHED WOUNDS. WILL CONTINUE TO MONITOR UNTIL REPORT TO ONCOMING NURSE.
[2021-07-31 19:00] LABS: Glucose, Blood 593 mg/dL (70-99)
--- NOTE | 2021-07-31 19:00 | NUR ---
ASSUMED CARE OF PT @1900 PT INTUBATED AND RESTING COMFORTABLY. VENT SPONT PS 12/PEEP 5/FIO2 30%. ETT TUBE SZ 7.5, 22CM AT TEETH. NEPRO INFUSING THROUGH OG TUBE AT 25MLS/HR. TKO NS 10MLS/HR INFUSING THROUGH POWERGLIDE [id number]. POWERGLIDE SOCORRO. HEMODIALYSIS PERMACATH R CHEST. HOLLINGSWORTH CATHETER IN PLACE AND DRAINING TO GRAVITY. FOAM DRESSING ON HEELS. SOFT BILATERAL WRIST RESTRAINTS.
[2021-08-01 04:19] LABS: BASOPHILS ABSOLUTE AUTO 0.05 K/mm3 (0.00-0.23); BASOPHILS PERCENT AUTO 0 % (0-2); EOSINOPHILS ABSOLUTE AUTO 0.05 K/mm3 (0.00-0.68); EOSINOPHILS PERCENT AUTO 0 % (0-6); Hematocrit 25.9 % (33.0-51.0); Hemoglobin 8.4 g/dL (11.5-16.0); IMMATURE GRAN ABSOLUTE AUTO 0.22 K/mm3 (0.00-0.10); IMMATURE GRAN PERCENT AUTO 1 % (0-1); LYMPHOCYTES PERCENT AUTO 5 % (21-46); MONOCYTES ABSOLUTE AUTO 2.75 K/mm3 (0.16-1.47); MONOCYTES PERCENT AUTO 11 % (4-13); Mean Corpuscular HGB 31.3 pg (26.0-34.0); Mean Corpuscular HGB Conc 32.4 g/dL (31.5-36.5); Mean Corpuscular Volume 97 fL (80-100); Mean Platelet Volume 9.9 fL (9.1-12.4); NEUTROPHILS ABSOLUTE AUTO 20.72 K/mm3 (1.96-9.15); NEUTROPHILS PERCENT AUTO 83 % (41-73); Platelet Count 388 K/mm3 (150-400); RDW Standard Deviation 52.2 fL (35.1-46.3); Red Blood Cell Count 2.68 M/mm3 (3.80-5.20); White Blood Cell Count 25.09 K/mm3 (4.00-11.30)
[2021-08-01 04:36] LABS: Anion Gap 12 mmol/L (6-16); Blood Urea Nitrogen 45 mg/dL (8-24); Bun/Creatinine Ratio 11.7 (12.0-20.0); CO2, Blood 28 mmol/L (21-32); Calcium, Blood 8.4 mg/dL (8.5-10.1); Chloride, Blood 101 mmol/L (98-108); Creatinine, Blood 3.85 mg/dL (0.40-1.00); Glomerular Filtration Rate 14 (60-); Glucose, Blood 99 mg/dL (70-99); Magnesium, Blood 2.7 mg/dL (1.6-2.4); Potassium, Blood 3.5 mmol/L (3.5-5.5); Sodium, Blood 141 mmol/L (136-145)
--- NOTE | 2021-08-01 05:26 | NUR ---
UPDATE CALLED DR EASLEY REGARDING GLUCOSE OF 64, ORDERS ALREADY IN EMAR FOR DEXTROSE 5% 250ML BAG. DR EASLEY AGREED TO GIVE BAG OF DEXTROSE AND RECHECK GLUCOSE IN 30-45MIN.
--- NOTE | 2021-08-01 06:09 | NUR ---
END OF SHIFT SUMMARY PT REMAINS INTUBATED. VENT SPONT 02/17/30%. LUNGS COURSE WITH DIMINISHED BASES. PT SLEPT AND APPEARED COMFORTABLE MOST OF THE NIGHT. WITHDRAWS FROM STIMULI AND TRIES TO GRAB AT ORAL CARE. IS NOT FOLLOWING COMMANDS THIS SHIFT. SBP 140-160s. HR 90-110s. MAP >70. INSULIN GIVEN ON SLIDING SCALE. NEPRO TF @25MLS/HR GOAL RATE. RISIDUALS BETWEEN 50-90MLS THROUGH SHIFT. BG CHECKED Q 1HR. 0500 64. BOLUS 250MLS 5% DEXTROSE. [address] TRAECE OVIEDO BG @0700. HOLLINGSWORTH PATENT AND DRAINING LIGHT YELLOW URINE TO GRAVITY. WILL CONTINUE TO MONITOR AND REPORT TO ONCOMING RN.
--- NOTE | 2021-08-01 06:24 | NUR ---
UPDATE CALLED DR EASLEY TO UPDATE REGARDING GLUCOSE AFTER DEXTROSE 5% GIVEN, GLUCOSE NOW 84. INSTRUCTED TO CHECK GLUCOSE IN ONE HOUR.
[2021-08-01 10:24] LABS: Vancomycin, Random 20.7 ug/mL
--- NOTE | 2021-08-01 12:23 | NUR ---
REASSESSMENT PT REMAINS INTUBATED. SHE WILL FOLLOW COMMANDS TO OPEN AND CLOSE HER EYES. WITHDRAWS FROM UNCOMFORTABLE STIMULI WELL, BUT OTHERWISE RESTS QUIETLY WHEN LEFT ALONE AND IS TOLERATING THE VENT. SHE CONTINUES IN SPONTANEOUS MODE WITH PS 12, PEEP 5. LUNGS ARE CLEAR, SMALL AMT OF HURTADO/YELLOW SPUTUM. SR/ST WIHT RATE IN THE 90S TO LOW 100S, SBP 150S. TOLERATING TUBE FEED WITH ABOUT 10ML RESIDUALS. HOLLINGSWORTH WITH CL YELLOW URINE. PT'S MOTHER CALLED AND WAS UPDATED BY NURSE.
[2021-08-01 13:40] LABS: Free Thyroxine 1.01 ng/dL (0.70-1.60); Thyroid Stimulating Hormone 5.39 uIU/mL (0.360-4.800)
--- NOTE | 2021-08-01 17:35 | NUR ---
SHIFT SUMMARY PT REMAINS INTUBATED. FOLLOWS SIMPLE COMMANDS LIKE OPENING HER EYES. BLOOD SUGARS WERE LOW THIS MORNING AND THE ORDERED D5 WAS STARTED AND RAN UNTIL 1300 WHEN BLOOD SUGARS WERE ABOVE 200. SS GIVEN THIS EVENING AND LONG ACTING INSULIN DISCUSSED WITH DR. NEAL SINCE PT SEEMED TO DROP HER BLOOD SUGARS IN THE MORNING THE LAST [address] NEAL DECIDED TO CUT LONG ACTING DOSE IN HALF AND SEE HOW PT TOLERATES THAT TONIGHT. LUNGS ARE CLEAR MOST OF THE TIME, BUT DO GET COARSE WHEN SHE NEEDS SUCTIONING. SR/ST WITH RATE IN THE 90S AND LOW 100S. ONE BM TODAY, 250ML OF CL YELLOW URINE OUT. DRESSING CHANGED ON BOTH HEELS AND OTHER WOUNDS CLEANED WITH IODINE PER ORDERS. PT'S MOTHER WAS UPDATED THROUGHOUT THE SHIFT.
--- NOTE | 2021-08-01 19:00 | NUR ---
ASSUMED CARE OF PT @1900 PT IS INTUBATED AND RESTING QUIETLY IN BED. PT ON CONTINUOUS CARDIAC MONITORING. VENT SPONT 12/5/30%. ETT SZ 7.5, 22CM AT TEETH. TKO NS 10MLS/HR. NEPRO TF @ 25MLS/HR THROUGH OG TUBE. FOAM PADS ON HEALS. BILATERAL SOFT WRIST RESTRAINTS IN PLACE. HOLLINGSWORTH PATENT AND DRAINING TO GRAVITY. SEE FULL ASSESSMENT.
--- NOTE | 2021-08-02 02:00 | NUR ---
PT BG 67. IV 5% DEXTROSE BOLUS 250MLS.
[2021-08-02 04:27] LABS: Albumin, Blood 1.8 g/dL (3.4-5.0); Anion Gap 10 mmol/L (6-16); Blood Urea Nitrogen 59 mg/dL (8-24); Bun/Creatinine Ratio 13.9 (12.0-20.0); CO2, Blood 27 mmol/L (21-32); Calcium, Blood 8.4 mg/dL (8.5-10.1); Chloride, Blood 99 mmol/L (98-108); Creatinine, Blood 4.25 mg/dL (0.40-1.00); Glomerular Filtration Rate 12 (60-); Glucose, Blood 93 mg/dL (70-99); Phosphorus, Blood 5.5 mg/dL (2.5-4.9); Potassium, Blood 3.7 mmol/L (3.5-5.5); Sodium, Blood 136 mmol/L (136-145)
--- NOTE | 2021-08-02 05:59 | NUR ---
END OF SHIFT SUMMARY PT REMAINS INTUBATED. VENT SPONT 12/30%. TOLERATING WELL. PT WILL GRIMACE AND PULL AWAY DURING CARE. OPENS EYES OCCASIONALLY TO VERBAL STIMULI. SPO2 >94%. SBP 130-160s. HR 90-110s. PT HAD BG <60 @0200 AND 0600 (SEE NOTES). NEPRO TF @25MLS/HR W/LOW RESIDUALS. HOLLINGSWORTH CATH PATENT AND DRAINING TO GRAVITY. POWER GLIDE IN KRZYSZTOF TKO NS 10MLS/HR. POWER GLIDE SOCORRO PATENT W/SALINE LOCK. MEPILEX BORDER ON BOTH HEELS. WILL CONTINUE TO MONITOR AND REPORT TO ONCOMING RN.
--- NOTE | 2021-08-02 06:02 | NUR ---
UPDATE CALLED DR EASLEY REGARDING GLUCOSE AT 57 AGAIN. INSTRUCTED TO START D5 AT 50ML/HR AND RECHECK GLUCOSE IN ONE HOUR. IF GLUCOSE IS STILL LOW, WE MAY INCREASE D5 TO 75ML/HR AND RECHECK GLUCOSE IN ONE HOUR. IF GLUCOSE IS STILL LOW, WE MAY INCREASE D5 TO 100ML/HR.
--- NOTE | 2021-08-02 07:15 | NUR ---
Assumed care of pt at 0700 from Jayne BERRY and Concetta QUINTANILLA. Pt not sedated. Responsive to verbal stimulus. Vent settings PS 12/5 and 30% FiO2. ST per monitor. BP high-plan to manage with BP meds. D5 stopped due to stable blood sugar.
[2021-08-02 11:31] LABS: Vancomycin, Random 12.1 ug/mL
--- NOTE | 2021-08-02 16:29 | NUR ---
theraputic visit with pt mother and family at bedside. will continue to support family and pt.
--- NOTE | 2021-08-02 19:24 | NUR ---
SUMMARY Neuro: Responsive to verbal stimulus. Strong cough and gag. No sedation. PERRL. Tracks people as they move across the room. Moves all extremities. Does not follow commands. Musc: Total care, does not assist with ADLs. Repositoined Q2H Resp: Vent settings PS 7/5 and 30% FiO2. Pt given narcan per Dr No this shift because tidal volume and minute ventilation low after pt had visitors. No effect. RT notified and vent settings adjusted. Cardiac: ST per monitor. BP high/normal. GI: Nepro per orders, pt tolerating well. Maximum residual measured 10 mL. : Good output of urine this shift, clear and yellow Skin: Unchanged from initial assessment.
--- NOTE | 2021-08-02 20:00 | NUR ---
Assumed care. Alert, with eyes open, follows your voice, tracks some of the time. Does not respond to eyes and no questions just stares at you. Does not follow direction. No sedation. Calm. Gag, Swallow, and cough intact. Lung sounds clear, diminished in bases. Sats >90%. Spontanous vent settin/5/30%. Occationally her tidal volume does drop below 300. Secreations thompson thick small amounts. Sinus on the monitor. rate is tachy in the 110's. Abdomin soft, BT hypoactive. TF at goal of 25ml/hr. residual [address] No regarding low Blood sugars in am order to hold long acting. Partial bed bath given, cath care. repositioned in bed. no signs of pain or discomfort. will continue to monitor.
--- NOTE | 2021-08-02 20:31 | NUR ---
Blood sugar 81, D5 started to prevent drop in blood sugars. Lauri monitor blood sugars every 2 hours.
[2021-08-03 03:55] LABS: Albumin, Blood 1.9 g/dL (3.4-5.0); Anion Gap 8 mmol/L (6-16); Blood Urea Nitrogen 42 mg/dL (8-24); Bun/Creatinine Ratio 14.6 (12.0-20.0); CO2, Blood 31 mmol/L (21-32); Calcium, Blood 8.7 mg/dL (8.5-10.1); Chloride, Blood 100 mmol/L (98-108); Creatinine, Blood 2.87 mg/dL (0.40-1.00); Glomerular Filtration Rate 20 (60-); Glucose, Blood 137 mg/dL (70-99); Phosphorus, Blood 3.6 mg/dL (2.5-4.9); Potassium, Blood 3.4 mmol/L (3.5-5.5); Sodium, Blood 139 mmol/L (136-145)
--- NOTE | 2021-08-03 05:29 | NUR ---
Shift summary: Pt opens eyes to verbal stimuli, tracks, but will not follow direction, or do any purposeful movements. No sedation. LS clear with diminished bases. On spontanous pressure support peep of 5, FIO2 30%. Tolerating it well. Sats >90% entire shift. Hdz thick small secreations upon suctioning. Cough, gag, and swallow all intact. Sinus tach on the monitor, with hypertension 160-170's. Had to give hydralazine x1 this shift. HR has been 110's. Edema noted to BLE. BT hypoactive, small smear of bm noted. OG with nepro TF at goal of 25ml/hr. Blood sugar has been all over starting at 81, D5 infusion started at 50ml/hr and was turned off 2 around midnight as sugars jumped to 161. She then dropped back down to 103 and now is back up to 230. Long acting held per MD order as she has been dropping to 30-40's in am last few days. Urine dark yellow small amount of 200cc entire shift. Mitchell is patent. Dressings changed to Bilateral heels. All are improving no other skin breakdown noted. Abnormal labs called into Dr. Deng which included K+ 3.4; BUN-42, Creatine- 2.87, GFR-20, Albumin-1.9. Order for 10meq of K+ iv now. Will Continue to monitor.
[2021-08-03 06:42] LABS: BASOPHILS ABSOLUTE AUTO 0.04 K/mm3 (0.00-0.23); BASOPHILS PERCENT AUTO 0 % (0-2); EOSINOPHILS ABSOLUTE AUTO 0.19 K/mm3 (0.00-0.68); EOSINOPHILS PERCENT AUTO 1 % (0-6); Hematocrit 26.5 % (33.0-51.0); Hemoglobin 8.3 g/dL (11.5-16.0); IMMATURE GRAN ABSOLUTE AUTO 0.14 K/mm3 (0.00-0.10); IMMATURE GRAN PERCENT AUTO 1 % (0-1); LYMPHOCYTES ABSOLUTE AUTO 0.76 K/mm3 (0.84-5.20); LYMPHOCYTES PERCENT AUTO 4 % (21-46); MONOCYTES ABSOLUTE AUTO 2.11 K/mm3 (0.16-1.47); MONOCYTES PERCENT AUTO 11 % (4-13); Mean Corpuscular HGB 31.2 pg (26.0-34.0); Mean Corpuscular HGB Conc 31.3 g/dL (31.5-36.5); Mean Corpuscular Volume 100 fL (80-100); Mean Platelet Volume 12.2 fL (9.1-12.4); NEUTROPHILS ABSOLUTE AUTO 16.08 K/mm3 (1.96-9.15); NEUTROPHILS PERCENT AUTO 83 % (41-73); Platelet Count 338 K/mm3 (150-400); RDW Coefficient Variation 14.2 % (11.7-14.2); RDW Standard Deviation 51.3 fL (35.1-46.3); Red Blood Cell Count 2.66 M/mm3 (3.80-5.20); White Blood Cell Count 19.32 K/mm3 (4.00-11.30)
--- NOTE | 2021-08-03 07:30 | NUR ---
ASSUMED CARE: PT ALERT AND FOLLOWING WITH EYES AT TIME OF BEDSIDE REPORT. PT RESPONDS TO VERBAL STIMULI AND FOLLOWS MINIMAL DIRECTIONS WHEN PROMPTED. PT CALM AND SATTING >95% O2 ON VENT, SPONTANEOUS VENT SETTING AT 12/5/30%. SINUS RHYTHYM PER MONITOR AND TACHYCARDIC IN 110'S. HOLLINGSWORTH PATENT AND DRAINING TO GRAVITY, TUBE FEED RUNNING AT 25ML/HR, TKO FLUIDS RUNNING IN SOCORRO.
[2021-08-03 11:46] LABS: Vancomycin, Random 31.8 ug/mL
--- NOTE | 2021-08-03 13:21 | NUR ---
DISCUSSED PT'S CASE WITH DR NEAL AND ASKED ABOUT ENDOCRINOLOGY. STATES HE DID NOT CONSULT DUE TO PT HAVING A VARIETY OF SUPERINTENDENT REFUSE DISPOSAL ISSUES. FEELS PT'S MAIN OPTIONS ARE TRACH AND PEG VS HOSPICE BECAUSE OF CHRONIC ILLNESSES. CALL TO PALLIATIVE CARE WHO STATED THEY WOULD REVIEW CASE TO DETERMINE CURRENT COARSE OF ACTION.
--- NOTE | 2021-08-03 17:11 | NUR ---
PT'S VENT ALARMING FOR LOW TIDAL VOLUMES IN 180S. CONTACTED RT WHO CHANGED SETTINGS TO 10/5 WITH 30% FIO2.
--- NOTE | 2021-08-03 17:59 | NUR ---
SHIFT SUMMARY: PT IS AROUSABLE TO VERBAL COMMANDS, BUT DOES NOT SHOW ANY PURPOSEFUL MOVEMENT. FOLLWOS SIMPLE COMMANDS ASKED AND RESPONDS TO PAINFUL STIMULI, TRACKS MOVEMENT W/ EYES. SINUS TACH THROUGHOUT SHIFT W/ RATE OF 110'S. VENTED AT SETTINGS 10/5 30% W/ O2 REMAINING >95%. PT HAS TKO IVF RUNNING IN SOCORRO AND D5 ON STANDBY IN KRZYSZTOF. HOLLINGSWORTH PATENT AND RUNNING TO GRAVITY W/ YELLOW CLEAR URINE. PT'S CBG LOWERED TO 122, D5 RAN FOR 1 HOUR, BLOOD GLUCOSE YORDY AND GTT WAS STOPPED. PALLIATIVE CARE HAS BEEN SPEAKING W/ PATIENT'S FAMILY IN REGARDS TO PLAN OF CARE, NO DECISIONS HAVE BEEN MADE OF YET. NO ACUTE NEEDS/DISTRESS AT THIS TIME.
--- NOTE | 2021-08-03 20:37 | NUR ---
ASSUMED CARE AT 1900 PATIENT IS ALERT AND OPENING EYES SPONTANEOUSLY, FOLLOWS SIMPLE COMMANDS AT TIMES, MOVES ALL EXTREMETIES. CALM AND TOLERATING VENT WITH NO SEDATION. 02 SATS 99% ON VENT: SPONT PS, 10/5 30% FI02. LS COARSE, LESS COARSE AFTER SUCTIONED. HR ST 100-110, BP STABLE. OG INF NEPRO AT GOAL RATE 25 MLS/HR. TEMP HOLLINGSWORTH PATENT AND DRAINING TO GRAVITY. ORAL CARE AND REPSOTIIONED. WOUNDS ASSESSED AND DRESSING C/D/I. HELD LONG ACTING INSULIN FOR NOW, WILL REASSES AND COVER IF NEEDED. SEE SHIFT ASSESSMENT FOR MORE DETAIL.
[2021-08-04 03:26] LABS: Hematocrit 26.6 % (33.0-51.0); Hemoglobin 8.5 g/dL (11.5-16.0)
[2021-08-04 03:45] LABS: Albumin, Blood 1.8 g/dL (3.4-5.0); Anion Gap 10 mmol/L (6-16); Blood Urea Nitrogen 58 mg/dL (8-24); Bun/Creatinine Ratio 15.8 (12.0-20.0); CO2, Blood 29 mmol/L (21-32); Calcium, Blood 9.1 mg/dL (8.5-10.1); Chloride, Blood 100 mmol/L (98-108); Creatinine, Blood 3.66 mg/dL (0.40-1.00); Glomerular Filtration Rate 15 (60-); Glucose, Blood 150 mg/dL (70-99); Magnesium, Blood 2.7 mg/dL (1.6-2.4); Potassium, Blood 3.3 mmol/L (3.5-5.5); Sodium, Blood 139 mmol/L (136-145)
--- NOTE | 2021-08-04 05:52 | NUR ---
SHIFT SUMMARY PATIENT REMAINS INTUBATED WITH NO SEDATION. OPENS EYES SPONTANEIOUSLY, FOLLOWS SOME COMMANDS AT TIMES. MOVES ALL EXTREMETIES. CALM AND TOLERATING VENT. 02 SATS >95% ON VENT SPONT PS 10/50 FI02 30%, RR 18-20s. SUCTIONED MODERATE AMOUNT OF THICK HURTADO SPUTUM. HR SR 80s-90s, BP STABLE. OG INF TUBE FEED NEPRO AT GOAL RATE. HOLLINGSWORTH PATENT AND DRAINING TO GRAVITY. REPOSITIONED Q2 HOURS. BLOOD GLUCOSE STILL LABILE, CONTINUE TO MONITOR.
--- NOTE | 2021-08-04 11:54 | NUR ---
REASSESSMENT PT HAS BEEN MORE ALERT THIS SHIFT, LAYING IN BED WITH HER EYES OPEN. SHE IS FOLLOWING COMMANDS TO SQUEEZE HANDS, BUT RESPONSE IS A LITTLE DELAYED. SHE WAVED AT THE CONSTRUCTION ENGINEER WHEN SHE ENTERED. HER LUNGS ARE CLEAR, ANY COARSENESS CLEARED WITH SUCTIONING. SM AMT OF CLEAR/HURTADO SPUTUM. SINUS TACH IN THE 1TEENS DURING DIALYSIS THIS MORNING. TOLERATED DIALYSIS WELL. TOLERATING TUBE FEED WITH SCANT RESIDUAL. HOLLINGSWORTH WITH CL YELLOW URINE. PT'S MOTHER CALLED THIS AM AND WAS UPDATED.
[2021-08-04 11:58] LABS: Vancomycin, Random 16.9 ug/mL
--- NOTE | 2021-08-04 17:13 | NUR ---
REASSESSMENT PT HAS STAYED ALERT THROUGHOUT THIS SHIFT, NODDING YES/NO TO QUESTIONS, FOLLOWING COMMANDS. SHE HAS CONTINUED ON PS 10, VOLUMES SOMETIMES ONLY 300ML. LUNGS ARE CLEAR, SMALL AMT OF HURTADO SPUTUM SUCTIONED THROUGHOUT THE DAY. SINUS TACH RATE IN THE 1TEENS WITH SBP IN THE 160S, LABETALOL GIVEN ONCE FOR HYPERTENSION. BOWEL TONES ACTIVE, TOELRATING TUBE FEED WITH NO RESIDUALS. BLOOD SUGARS HAVE BEEN IN THE 160S RANGE THROUGHOUT THE DAY. HOLLINGSWORTH DRIANING CL YELLOW URINE. PT'S BROTHER AND SSIL CAME IN TO VISIT PT THIS AFTERNOON AND HAD LOTS OF QUESTIONS ABOUT SAP DIRECTOR CARE OF PT IF SHE GETS A TRACH/PEG. QUESTIONS ANSWERED TO THE BEST OF THIS RN'S ABILITY BUT NOTE ALSO LEFT FOR CARE MANAGEMENT TO CALL HIM THEY AHD QUESTIONS ABOUT IN HOME CAREGIVERS, OUTPT DIALYSIS, AND GUARDIANSHIP. ADVISED PT'S BROTHER ALSO TO CALL TOMORROW AFTERNOON IF HE HASN'T HEARD FROM THE FREIGHT BROKER AGENT TO DISCUSS THESE QUESTIONS.
--- NOTE | 2021-08-04 20:00 | NUR ---
PATIENT REMAINS INTUBATED WITH VENT PS 10 PEEP 5 FIO2 30% PATIENT RESTING QUIETLY AWAKENING TO SLIGHT STIMULI. NODDING YES AND NO TO SIMPLE DIRECTIONS, GENERALIZED WEAKNESS, CORONA SLIGHTLY. SEDATION REMAINS OFF, NODDING YES TO BEING COMFORTABLE. OG IN PLACE WITH NEPRO AT GOAL RATE OF 25 CC/HR.
[2021-08-05 04:03] LABS: Hemoglobin 8.4 g/dL (11.5-16.0)
[2021-08-05 04:24] LABS: Albumin, Blood 1.8 g/dL (3.4-5.0); Anion Gap 6 mmol/L (6-16); Blood Urea Nitrogen 38 mg/dL (8-24); CO2, Blood 32 mmol/L (21-32); Calcium, Blood 8.9 mg/dL (8.5-10.1); Chloride, Blood 105 mmol/L (98-108); Creatinine, Blood 2.72 mg/dL (0.40-1.00); Glomerular Filtration Rate 21 (60-); Glucose, Blood 81 mg/dL (70-99); Magnesium, Blood 2.4 mg/dL (1.6-2.4); Phosphorus, Blood 2.9 mg/dL (2.5-4.9); Potassium, Blood 3.6 mmol/L (3.5-5.5); Sodium, Blood 143 mmol/L (136-145)
--- NOTE | 2021-08-05 06:12 | NUR ---
SUMMARY PATIENT REMAINS INTUBATED, NO SEDATION INFUSING. PATIENT AWAKENS TO SLIGHT STIMULI, FALLING BACK TO SLEEP EASILY. NODDING YES AND NO TO QUESTIONS, FOLLOWING SIMPLE DIRECTIONS. OG REMAINS IN PLACE WITH NEPRO AT GOAL RATE OF 25 CC/HR WITH MIN RESIDUALS T/O NIGHT. PATIENTS GLUCOSE DOWN TO 71, D5W STARTED AND TITRATED UP TO 75 CC/HR PER ORDER.
--- NOTE | 2021-08-05 08:15 | NUR ---
ASSUMED CARE: REPORT RECEIVED FROM RAMBO Davison RN. ASSUMED CARE OF THIS PT AT APPROX 0700. ON ASSESSMENT, THE PT IS RESTING QUIETLY. SHE OPENS HER EYES TO HER NAME BEING STATED, BUT IS NOT FOLLOWING DIRECTIONS OR ANSWERING YES/ NO QUESTIONS AT THIS TIME. SHE MOVES ALL EXTREMITIES. LS ARE COARSE T/O, SMALL AMNTS THICK WHTIE SPUTUM SUCTIONED THROUGH ETT. VENT SETTINGS: SPONTANEOUS W/ PS 10, PEEP 5 & 30% FIO2, O2 SATS > 95%. MONITOR SHOWS SR-ST W/ HR 90-110s, HTN W/ AM SCHEDULED MEDS PER EMAR. OGT IN PLACE W/ TF INFUSING AT GOAL RATE OF 25 ML/HR W/ NO RESIDUALS. HOLLINGSWORTH PATENT/ DRAINING YELLOW URINE W/ SMALL AMNTS OUTPUT R/T HD. PERMACATH IN PLACE TO RIGHT CHEST. SKIN CONDITION OVERALL POOR, FOAM DRESSINGS IN PLACE TO VARIOUS SORES/ SCABS ON BLE. PINK/ BLANCHABLE AREA TO COCCYX HORTENSIA W/ Q2H REPOSITIONING TO MAINTAIN SKIN INTEGRITY. CBG CHECKS REMAIN LABILE W/ D5W INFUSING AT 75 ML/HR. WILL CONTINUE TO MONITOR & UPDATE NEEDED.
--- NOTE | 2021-08-05 10:15 | NUR ---
DR HAYES: PROVIDER AT BEDSIDE TO EVAL PT. SHE PLANS TO SPEAK W/ FAMILY TODAY & PROVIDE AN UPDATE, NO CHANGES AT THIS TIME.
[2021-08-05 13:49] LABS: Vancomycin, Random 18.5 ug/mL
--- NOTE | 2021-08-05 16:29 | NUR ---
Unable to reach pt's mom today. Also unable to leave a voicemail but able to leave an SMS message of phone number. Left message of callback number of this office.
--- NOTE | 2021-08-05 17:54 | NUR ---
SHIFT SUMMARY: NO ACUTE CHANGES SINCE PRIOR UPDATES. PT REMAINS ALERT TO SELF, OPENS EYES SPONTANEOUSLY. SHE FOLLOWS DIRECTIONS & TRACKS W/ EYES INTERMITTENTLY, CORONA. LS ARE COARSE, VENT SETTINGS: SPONTANEOUS W/ PS 10, PEEP 5 & 30% FIO2. MOD AMNTS THICK HURTADO SECRETIONS SUCTIONED THROUGH ETT. MONITOR SHOWS SR-ST W/ HR 90-100s, HTN MANAGED W/ SCHEDULED MEDS. OGT IN PLACE W/ TUBE FEEDS AT GOAL RATE, NO RESIDUALS. HOLLINGSWORTH PATENT/ DRAINING SMALL AMNTS OF URINE R/T CHRONIC HD. SKIN OVERALL FRAGILE, INTACT. FOAM DRESSINGS IN PLACE TO BLE. Q2H REPOSITIONING TO MAINTAIN SKIN INTEGRITY. WILL CONTINUE TO MONITOR & REPORT OFF TO ONCOMING RN.
--- NOTE | 2021-08-05 20:18 | NUR ---
PATIENT INTUBATED WITH VENT SPONT PS 10, PEEP 5, FIO2 30% SUCTIONING THICK WHITE TO LIGHT YELLOW SPUTUM. PATIENT AWAKENS EASILY TO SLIGHT STIMULI, FOLLOWING SIMPLE DIRECTIONS, NODDING YES AND NO TO QUESTIONS AND SEEMS TO FOLLOW CONVERSATION. AT TIMES PATIENT BECOMING WITHDRAWN. CORONA GENERALIZED WEAKNESS. OG IN PLACE WITH NEPRO AT GOAL RATE OF 25 CC/HR.
--- NOTE | 2021-08-06 02:53 | NUR ---
DRESSINGS ON BOTH LOWER EXTREMITIES CHANGED. SCAB AND WOUND AREA CLEANSED WITH BETADINE AND COVERED WITH FOAM HEAL PROTECTORS AND FOAM DRESSING.
[2021-08-06 04:10] LABS: BASOPHILS ABSOLUTE AUTO 0.07 K/mm3 (0.00-0.23); BASOPHILS PERCENT AUTO 1 % (0-2); EOSINOPHILS ABSOLUTE AUTO 0.15 K/mm3 (0.00-0.68); EOSINOPHILS PERCENT AUTO 1 % (0-6); Hematocrit 25.9 % (33.0-51.0); Hemoglobin 8.1 g/dL (11.5-16.0); IMMATURE GRAN ABSOLUTE AUTO 0.28 K/mm3 (0.00-0.10); IMMATURE GRAN PERCENT AUTO 2 % (0-1); LYMPHOCYTES ABSOLUTE AUTO 1.08 K/mm3 (0.84-5.20); LYMPHOCYTES PERCENT AUTO 8 % (21-46); MONOCYTES ABSOLUTE AUTO 2.04 K/mm3 (0.16-1.47); MONOCYTES PERCENT AUTO 14 % (4-13); Mean Corpuscular HGB 31.2 pg (26.0-34.0); Mean Corpuscular HGB Conc 31.3 g/dL (31.5-36.5); Mean Corpuscular Volume 100 fL (80-100); Mean Platelet Volume 10.8 fL (9.1-12.4); NEUTROPHILS ABSOLUTE AUTO 10.83 K/mm3 (1.96-9.15); NEUTROPHILS PERCENT AUTO 75 % (41-73); Platelet Count 478 K/mm3 (150-400); RDW Standard Deviation 50.1 fL (35.1-46.3); White Blood Cell Count 14.45 K/mm3 (4.00-11.30)
[2021-08-06 04:30] LABS: Albumin, Blood 1.8 g/dL (3.4-5.0); Anion Gap 8 mmol/L (6-16); Blood Urea Nitrogen 56 mg/dL (8-24); CO2, Blood 28 mmol/L (21-32); Calcium, Blood 9.4 mg/dL (8.5-10.1); Chloride, Blood 105 mmol/L (98-108); Glomerular Filtration Rate 16 (60-); Glucose, Blood 192 mg/dL (70-99); Magnesium, Blood 2.5 mg/dL (1.6-2.4); Phosphorus, Blood 2.6 mg/dL (2.5-4.9); Potassium, Blood 3.7 mmol/L (3.5-5.5); Sodium, Blood 141 mmol/L (136-145)
--- NOTE | 2021-08-06 06:01 | NUR ---
SUMMARY PATIENT REMAINS INTUBATED WITH VENT SPONT 10/5 FIO2 30% T/O NIGHT. CONTINUE TO SUCTION THICK WHITE TO LIGHT YELLOW SPUTUM VIA ETT. OG REMAINS IN PLACE WITH NEPRO AT GOAL RATE OF 25 CC/HR WITH MIN RESIDUALS T/O NIGHT. CONTINUING TO MONITOR CBG CLOSELY . D5W NOT NEEDED TONIGHT BUT SLIDING SCALE HELD THIS MORNING DUE TO HOW QUICKLY HER GLUCOSE IS DROPPING.
--- NOTE | 2021-08-06 08:15 | NUR ---
ASSUMED CARE / DR HAYES: REPORT RECEIVED FROM RAMBO Davison RN. ASSUMED CARE OF THIS PT AT APPROX 0700. ON ASSESSMENT, THE PT IS AWAKE, WATCHING TV. SHE TRACKS THIS RN IN THE ROOM, IS ANSWERING YES/ NO QUESTIONS BY NODDING HEAD & FOLLOWS DIRECTIONS INTERMITTENTLY. LS ARE COARSE, PT ON VENTILATOR W/ SETTINGS: SPONTANEOUS W/ PS 10, PEEP 5 & 30% FIO2. O2 SATS > 92% & SMALL-MOD AMNTS THICK HURTADO SPUTUM SUCTIONED THROUGH ETT. MONITOR SHOWS SR-ST W/ PVCs, HR 90-110s, HTN W/ SCHEDULED AM MEDS PER EMAR. OGT IN PLACE W/ TUBE FEEDS INFUSING AT GOAL RATE, LOW RESIDUALS. HOLLINGSWORTH PATENT/ DRAINING SMALL AMNTS YELLOW URINE R/T CHRONIC HD. SKIN OVERALL FRAGILE, FOAM DRESSINGS TO BLE REPLACED BY MIDDLE SCHOOL MUSIC TEACHER RN & REMAIN INTACT. Q2H REPOSITIONING TO MAINTAIN SKIN INTEGRITY. DR HAYES AT BEDSIDE TO EVAL PT THIS AM. SHE IS CONSIDERING EXTUBATION IF THE PT CONTINUES TO DO WELL OVER THE NEXT DAY OR SO, BUT WOULD LIKE A NEW SPUTUM COLLECTED FOR CX R/T PT's CONTINUED PRODUCTION OF THICK HURTADO SPUTUM. WILL CONTINUE TO MONITOR & UPDATE NEEDED.
--- NOTE | 2021-08-06 10:52 | NUR ---
Spiritual Care visit Pt. is intubated and mostly nonresponsive. Pt. displayed evidence of being aware of this mold stripper's presence. Prayed with Pt.
[2021-08-06 13:23] LABS: Vancomycin, Random 10.5 ug/mL
--- NOTE | 2021-08-06 14:56 | NUR ---
CASE CONFERENCE: Spoke to pt's mom Brooke by phone this afternoon. She plans to be in to see pt later on today. She was already aware by the time we spoke that the plan is for pt to be extubated either today or tomorrow. She verbalized her relief about extubation and stated she would want her re-intubated if she needed it "no doubt about it". Palliative care to remain available.
--- NOTE | 2021-08-06 17:56 | NUR ---
SHIFT SUMMARY: NO ACUTE CHANGES SINCE PRIOR UPDATES. PT REMAINS ALERT & ORIENTED TO SELF, FOLLOWING DIRECTIONS. SHE TRACKS W/ EYES & IS ABLE TO ANSWER YES/ NO QUESTIONS BY NODDING HEAD. MENTATION IS SOMEWHAT LABILE AT TIMES & IT IS DIFFICULT TO DETERMINE IF THE PT IS ALTERED OR SIMPLY DOES NOT WANT TO ANSWER THE QUESTIONS ASKED/ FOLLOW THE DIRECTIONS ASKED OF HER. LS ARE COARSE, MOD AMNTS THICK HURTADO SPUTUM SUCTIONED THROUGH ETT. VENT SETTINGS: SPONTANEOUS W/ PS 10, PEEP 5 & 30% FIO2. MONITOR SHOWS SR-ST W/ HR 90-110s, HTN MANAGED W/ SCHEDULED MEDICATIONS PER EMAR. OGT IN PLACE W/ TUBE FEEDS INFUSING AT GOAL RATE, LOW RESIDUALS. NO BM THIS SHIFT. HOLLINGSWORTH PATENT/ DRAINING SMALL AMNTS YELLOW URINE. SKIN CONDITION OVERALL FRAGILE, DRESSINGS IN PLACE TO VARIOUS WOUNDS OF BLE. Q2H REPOSITIONING TO MAINTAIN SKIN INTEGRITY. WILL CONTINUE TO MONITOR & REPORT OFF TO ONCOMING RN.
--- NOTE | 2021-08-06 19:00 | NUR ---
ASSUMED CARE ASSUMED CARE OF PATIENT. REMAINS INTUBATED- SPONTANEOUS WITH PS 10, PEEP 5, FIO2 30%. RESPIRATIONS SHALLOW AT TIMES, RATE 14-16. OPENS EYES TO STIMULI, BUT DOES NOT APPEAR TO TRACK MOVEMENT. NOT FOLLOWING ANY COMMANDS AT THIS TIME. MOVES EXTREMITIES WEAKLY. DOES NOT NOD HEAD YES/NO IN RESPONSE TO QUESTIONS. BILATERAL SOFT WRIST RESTRAINTS IN PLACE. MONITOR SHOWS NSR, RATE 90s. BP STABLE. OG WITH NEPRO AT GOAL RATE OF 25CC/HR. HOLLINGSWORTH PATENT, DRAINING SMALL AMOUNT OF YELLOW URINE TO GRAVITY. LEFT AND RIGHT UPPER ARM POWER GLIDES NOTED. DIALYSIS CATHETER NOTED TO RIGHT UPPER CHEST. SEE SHIFT ASSESSMENT FOR FULL ASSESSMENT.
[2021-08-07 04:37] LABS: BASOPHILS ABSOLUTE AUTO 0.05 K/mm3 (0.00-0.23); BASOPHILS PERCENT AUTO 0 % (0-2); EOSINOPHILS ABSOLUTE AUTO 0.19 K/mm3 (0.00-0.68); EOSINOPHILS PERCENT AUTO 1 % (0-6); Hematocrit 27.2 % (33.0-51.0); Hemoglobin 8.2 g/dL (11.5-16.0); IMMATURE GRAN ABSOLUTE AUTO 0.19 K/mm3 (0.00-0.10); IMMATURE GRAN PERCENT AUTO 1 % (0-1); LYMPHOCYTES ABSOLUTE AUTO 1.15 K/mm3 (0.84-5.20); LYMPHOCYTES PERCENT AUTO 8 % (21-46); MONOCYTES ABSOLUTE AUTO 2.08 K/mm3 (0.16-1.47); MONOCYTES PERCENT AUTO 15 % (4-13); Mean Corpuscular HGB 29.9 pg (26.0-34.0); Mean Corpuscular HGB Conc 30.1 g/dL (31.5-36.5); Mean Corpuscular Volume 99 fL (80-100); Mean Platelet Volume 10.2 fL (9.1-12.4); NEUTROPHILS ABSOLUTE AUTO 10.46 K/mm3 (1.96-9.15); NEUTROPHILS PERCENT AUTO 74 % (41-73); Platelet Count 536 K/mm3 (150-400); RDW Standard Deviation 50.4 fL (35.1-46.3); Red Blood Cell Count 2.74 M/mm3 (3.80-5.20); White Blood Cell Count 14.12 K/mm3 (4.00-11.30)
[2021-08-07 05:03] LABS: Albumin, Blood 1.8 g/dL (3.4-5.0); Anion Gap 4 mmol/L (6-16); Blood Urea Nitrogen 36 mg/dL (8-24); Bun/Creatinine Ratio 14.2 (12.0-20.0); CO2, Blood 32 mmol/L (21-32); Calcium, Blood 9.2 mg/dL (8.5-10.1); Chloride, Blood 106 mmol/L (98-108); Creatinine, Blood 2.53 mg/dL (0.40-1.00); Glomerular Filtration Rate 23 (60-); Glucose, Blood 165 mg/dL (70-99); Magnesium, Blood 2.3 mg/dL (1.6-2.4); Phosphorus, Blood 2.3 mg/dL (2.5-4.9); Potassium, Blood 3.8 mmol/L (3.5-5.5); Sodium, Blood 142 mmol/L (136-145)
--- NOTE | 2021-08-07 05:57 | NUR ---
SHIFT SUMMARY NO ACUTE CHANGES DURING NOC. VENT SETTINGS UNCHANGED. RR 12-16. FOLLOWS SIMPLE COMMANDS, TRACKS MOVEMENT WITH EYES, AND NODS HEAD YES/NO APPROPRIATELY AT TIMES. AT OTHER TIMES, PT STARES BLANKLY AT RN. MONITOR SHOWS SR-ST, RATE 90s-110s. OCCASIONALLY HYPERTENSIVE. TMAX 99.7F. NEPRO TUBE FEEDING CONTINUES AT GOAL RATE OF 25CC/HR WITH 30CC H20 FLUSH Q4H. RESIDUALS 60-115CC. HOLLINGSWORTH PATENT AND DRAINING TO GRAVITY. WILL REPORT TO ONCOMING RN WHEN AVAILABLE.
--- NOTE | 2021-08-07 08:00 | NUR ---
ASSUMED CARE REPORT FROM EMERALD BERRY AT 0700. PT INTUBATED. VENT SETTINGS SPONT 10/5/30%. TV 300'S, RATE 20'S. LUNGS COARSE, IMPROVED c SUCTIONING. THICK YELLOW SECRETIONS VIA ETT. PT ALERT, NODS HEAD TO YES/NO QUESTIONS. REPORTS PAIN, MEDICATED c ULTRAM PT. FOLLOWS COMMANDS. CORONA. SR, BP STABLE. TUBE FEEDS AT GOAL, 25 ML/HR. HOLLINGSWORTH PATENT, DRAINING TO GRAVITY. PERMACATH TO RIGHT CHEST WALL, DRESSING C/D/I. BILATERAL POWERGLIDES. DRESSING TO HEELS, SEE SKIN ASSESSMENT. NO DIALYSIS THIS SHIFT. WILL REMAIN INTUBATED. WILL CONTINUE TO MONITOR.
--- NOTE | 2021-08-07 17:50 | NUR ---
SHIFT SUMMARY NO ACUTE CHANGES THIS SHIFT. PT REMAIN INTUBATED, VENT SETTINGS UNCHANGED. SPONT 10/5/30%. LUNGS CLEAR. MODERATE THICK YELLOW SECRETIONS THROUGH ETT. PT ALERT, FOLLOWING COMMANDS. TUBE FEEDS AT GOAL, MINIMAL RESIDUALS. HOLLINGSWORTH PATENT, DRAINED 225 ML CLEAR YELLOW URINE TO GRAVITY. DRESSING ON WOUNDS CHANGED THIS SHIFT, NO ACUTE CHANGES TO SKIN. SUPPOSITORY GIVEN, NO BM. VSS. WILL CONTINUE TO MONITOR UNTIL REPORT TO ONCOMING NURSE.
--- NOTE | 2021-08-07 20:21 | NUR ---
ASSUMED CARE AT 1900 PATIENT RESPONDS TO VERBAL STIMULI, DROWSY AND SLOW TO RESPOND, NO SEDATION. MOVES ALL EXTREMETIES. 02 SATS 99% ON VENT SPONT PS 10/5 FI02 30%, LS COARSE, SUCTIONED LARGE AMOUNTS OF THICK HURTADO SPUTUM FROM ETT. HR SR-ST 80s-110, BP STABLE. TEMP HOLLINGSWORTH PATENT AND DRAINING MINIMAL URINE TO GRAVITY (DIALYSIS PATIENT). OG IN PLACE, TUBE FEED NEPRO INF AT GOAL RATE 25 MLS/HR WITH 30 MLS FLUSHES Q4 HOURS. TUBE FEED TUBING CHANGED. RISIDUAL REINSTILLED 50 MLS. PATIENT REPOSIIONED AND ORAL CARE DONE. ASSESSED WOUNDS AND DRESSINGS C/D/I. SEE SHIFT ASSESSMENT FOR MORE INFO.
[2021-08-08 04:40] LABS: Hematocrit 24.8 % (33.0-51.0); Hemoglobin 7.8 g/dL (11.5-16.0)
[2021-08-08 05:03] LABS: Magnesium, Blood 2.4 mg/dL (1.6-2.4)
[2021-08-08 05:04] LABS: Albumin, Blood 1.8 g/dL (3.4-5.0); Anion Gap 8 mmol/L (6-16); Blood Urea Nitrogen 52 mg/dL (8-24); Bun/Creatinine Ratio 15.9 (12.0-20.0); CO2, Blood 29 mmol/L (21-32); Calcium, Blood 9.2 mg/dL (8.5-10.1); Chloride, Blood 106 mmol/L (98-108); Creatinine, Blood 3.28 mg/dL (0.40-1.00); Glomerular Filtration Rate 17 (60-); Glucose, Blood 161 mg/dL (70-99); Phosphorus, Blood 3.9 mg/dL (2.5-4.9); Potassium, Blood 4.2 mmol/L (3.5-5.5); Sodium, Blood 143 mmol/L (136-145)
--- NOTE | 2021-08-08 05:53 | NUR ---
SHIFT SUMMARY PATIENT ALERT AND ORIENTED TO SELF AND FOLLOWING COMMANDS AT TIMES. 02 SATS 100%, REMAINS ON VENT SPONT. PS 10/5 30%, LS COARSE, LARGE AMOUNTS OF THICK HURTADO SUCTIONED FROM ETT THROUGH THE NIGHT. HR SR @80s. BP STABLE. HOLLINGSWORTH PATENT AND DRAINING TO GRAVITY. BED BATH DONE THIS SHIFT. TUBE FEED INF AT GOAL RATE, LINES CHANGEDS. REPOSITIONED Q2 HOURS.
--- NOTE | 2021-08-08 08:30 | NUR ---
ASSUMED CARE REPORT FROM SOFY BERRY AT 0700. PT INTUBATED. VENT SETTINGS SPONT 10/5/30%, TV 300'S. RR 20'S. LUNGS CLEAR. MODERATE AMOUNT OF YELLOW SECRETIONS FROM ETT. STRONG COUGH. PT ALERT. FOLLOWS COMMANDS. MAEW. BP STABLE, NSR, RATE 90'S. ABD ROUND, SOFT, NON TENDER. BT X 4. OGT TUBE IN PLACE, TUBE FEEDS AT GOAL. MINIMAL RESIDUALS. HOLLINGSWORTH PATENT, DRAINING TO GRAVITY. PERMACATH TO RIGHT CHEST WALL. BILATERAL POWERGLIDES, DRESSING C/D/I. DRESSING TO HEELS. PLAN FOR DIALYSIS THIS SHIFT, THEN EXTUBATION. WILL CONTINUE TO MONITOR.
[2021-08-08 11:54] LABS: Vancomycin, Random 16.7 ug/mL
--- NOTE | 2021-08-08 18:11 | NUR ---
SHIFT SUMMARY PT EXTUBATED THIS SHIFT. ON RA, O2 SATS >95%. LUNGS CLEAR. STRONG COUGH. ABLE TO MANAGE SECRETIONS. PASSED BEDSIDE SWALLOW EVAL. PT A&OX 1. WEAK VOICE, DIFFICULT TO UNDERSTAND. GETS DISTRACTED EASILY. FOLLOWS SIMPLE COMMANDS. CBC 190, SS HELD TO AVOID HYPOGLYCEMIA. DIALYSIS COMPLETE THIS SHIFT, 2.1L OFF. VSS. HOLLINGSWORTH PATENT, DRAINED 200 ML CLEAR YELLOW URINE TO GRAVITY. DRESSINGS TO HEELS CHANGED. WILL CONTINUE TO MONITOR UNTIL REPORT TO ONCOMING NURSE.
--- NOTE | 2021-08-08 19:30 | NUR ---
PT REPORT RECIVED, SAFETY CHECK COMPLETED, ASSUMED PT CARE. PT IS ALERT AND ORIENTED TO SELF AND THAT SHE IS IN THE HOSPITAL, BUT SHE IS UNABLE TO STATE WHICH TOWN SHE IS IN.
[2021-08-09 05:14] LABS: BASOPHILS ABSOLUTE AUTO 0.07 K/mm3 (0.00-0.23); BASOPHILS PERCENT AUTO 1 % (0-2); EOSINOPHILS ABSOLUTE AUTO 0.04 K/mm3 (0.00-0.68); EOSINOPHILS PERCENT AUTO 0 % (0-6); Hematocrit 29.7 % (33.0-51.0); Hemoglobin 9.4 g/dL (11.5-16.0); IMMATURE GRAN ABSOLUTE AUTO 0.27 K/mm3 (0.00-0.10); IMMATURE GRAN PERCENT AUTO 2 % (0-1); LYMPHOCYTES ABSOLUTE AUTO 1.19 K/mm3 (0.84-5.20); LYMPHOCYTES PERCENT AUTO 10 % (21-46); MONOCYTES ABSOLUTE AUTO 1.63 K/mm3 (0.16-1.47); MONOCYTES PERCENT AUTO 13 % (4-13); Mean Corpuscular HGB 30.9 pg (26.0-34.0); Mean Corpuscular HGB Conc 31.6 g/dL (31.5-36.5); Mean Corpuscular Volume 98 fL (80-100); Mean Platelet Volume 9.7 fL (9.1-12.4); NEUTROPHILS ABSOLUTE AUTO 9.27 K/mm3 (1.96-9.15); NEUTROPHILS PERCENT AUTO 74 % (41-73); Platelet Count 655 K/mm3 (150-400); RDW Coefficient Variation 13.9 % (11.7-14.2); RDW Standard Deviation 48.5 fL (35.1-46.3); Red Blood Cell Count 3.04 M/mm3 (3.80-5.20); White Blood Cell Count 12.47 K/mm3 (4.00-11.30)
[2021-08-09 05:37] LABS: Albumin, Blood 2.1 g/dL (3.4-5.0); Anion Gap 8 mmol/L (6-16); Blood Urea Nitrogen 34 mg/dL (8-24); Bun/Creatinine Ratio 13.3 (12.0-20.0); CO2, Blood 31 mmol/L (21-32); Calcium, Blood 9.5 mg/dL (8.5-10.1); Chloride, Blood 100 mmol/L (98-108); Creatinine, Blood 2.55 mg/dL (0.40-1.00); Glomerular Filtration Rate 23 (60-); Glucose, Blood 222 mg/dL (70-99); Magnesium, Blood 2.4 mg/dL (1.6-2.4); Phosphorus, Blood 3.6 mg/dL (2.5-4.9); Potassium, Blood 3.4 mmol/L (3.5-5.5); Sodium, Blood 139 mmol/L (136-145)
--- NOTE | 2021-08-09 05:54 | NUR ---
SHIFT SUMMERY: LITTLE CHANGE IN PT CONDITION THROUGH THE SHIFT. PT IS ALERT AND ORIENTED TO SELF AND THAT SHE IS IN THE HOSPITAL, BUT OTHERWISE IS CONFUSED. PT IS ABLE TO FOLLOW COMMANDS AND MOVE ALL EXTREMITIES. PT WAS ABLE TO SLEEP FOR ABOUT 5 HOURES THROUGH THE COURSE OF THE NIGHT AND WAS PLACED ON 4 LPM NC TO AVOID DESATURATION WITH SLEEP. PT REMAINS CONFUSED WITH SHORT TERM MEMORY LOSS.
--- NOTE | 2021-08-09 10:12 | NUR ---
AM NOTE: ASSUMED CARE OF PT AT 0700. PT ASLEEP WHEN I ENTERED THE ROOM AT 0730. PT WAS EASILY AROUSED BUT CONTINUES TO BE CONFUSED AND DISORIENTED. PT ABLE TO VERBALIZE NAME WHEN ASKED, BUT IS NOT ABLE TO VERBILIZE WHERE SHE IS AT. WHEN THE PT IS ASKED "WHERE ARE YOU AT" THE PT RESPONDS WITH "YES" BUT NOT ABLE TO ACTUALLY VERBALIZE LOCATION. PT'S EYES PERRLA BILATERALLY. PT'S PO MEDICATIONS ADMINISTERED THIS AM AND THE PT WAS ABLE TO SWALLOW EACH PILL ONE AT A TIME WITH NO DIFFICULTY. PT'S LUNG SOUNDS WERE CLEAR THROUGHOUT BUT DIMINISHED IN THE LOWER LOBES BILATERALLY. PT WAS ON 4 L VIA NC AT 0730, BUT THIS RN TITRATED THE O2 DOWN TO ROOM AIR AND THE PT TOLERATED THIS WELL WITH O2 LEVELS 99<. PT HAS HR IN THE 100'S AND SBP 130-140, GRAVEL INSPECTOR IN PLACE. AT THIS TIME THE PT IS SINUS TACHYCARDIA. PT HAS NO ABD TENDERNESS AND BOWEL TONES ARE HYPOACTIVE AT THIS TIME. PT IS STILL NPO AT THIS TIME. DR. JAMES AT BEDSIDE AT 0830 TO ASSESS PT AND WAS UPDATED ON SWALLOW EVAL COMPLETED LAST SHIFT. ORDERS FOR A SPEECH EVALUATION WERE DISCUSSED. PT/OT CAME BY THE PT'S ROOM AT 0850 TO COMPLETE AN ASSESSMENT, HOWEVER THE PT WAS NOT ABLE TO FOLLOW COMMANDS OR PARTICIPATE IN THERAPY AT THIS TIME. THE PT HAS A HOLLINGSWORTH IN PLACE, PATENT AND DRAINGING TO GRAVITY. WILL CONTINUE TO MONITOR.
--- NOTE | 2021-08-09 10:57 | NUR ---
Spiritual Care Visit Pt. is awake in bed and watching television. Pt. did not give evidence that she remembered this Soil Tester from a previous visit. Pt. displayed evidence of confusion. Pt. attempted to verbalize responses but was unable to communicate clearly enough to be understood by this machine chain maker. Prayed with Pt. Reported the engagement to ICU nurse.
--- NOTE | 2021-08-09 15:00 | NUR ---
AFTERNOON UPDATE During interdisciplinary rounds, discussed that pt passed two bedside swallow evals by nursing and has demonstrated ability to take PO meds without coughing, gagging, wet vocal quality, change in lung sounds or increase in oxygen requirements. Per Dr Gill, renal and ADA diet to be started. At 1224, POC glucose measured at 62. Pt awake, asymptomatic to low blood sugar. Vitals stable. Pt provided with apple juice, crackers and cheese while waiting for late lunch tray to arrive. Blood sugar stabilized without incident. Approx 1410, noted new order for D5 in response to low blood sugar. At this time, most recent blood sugar 125 and pt in process of eating lunch. Discussed pt condition with Dr Marin and Dr Gill. Per Dr Gill, hold D5 and continue Q2H CBG monitoring. Dr Marin at bedside shortly afterwards to assess patient.
--- NOTE | 2021-08-09 17:32 | NUR ---
Review of pt in rounds saroj see what pt has as a plan of care. pt kps score is 30%
--- NOTE | 2021-08-09 17:57 | NUR ---
SHIFT SUMMARY: PT REMAINED ALERT BUT CONFUSED THROUGHOUT THE DAY AND IS NOT ABLE TO FOLLOW VERBAL COMMANDS VERY EASILY. THE PT'S TRAIN OF THOUGHT IS EASILY LOST WHEN DOING TASKS AND MULTIPLE PROMPTS ARE GIVEN TO THE PT. THE PATIENT IS ABLE TO FOLLOW SIMPLE COMMANDS BUT WITH MULTIPLE PROMPTS. THE PT HAS BEEN GIVEN ADA DIET ORDERS WHICH WERE INITIATED AT LUNCH TIME. THE PT IS ABLE TO FED HERSELF WITH LIMITED HELP AND PROMPTS. FAST ACTING INSULIN REGIMEN HAS BEEN INITATED AND THE FIRST DOSE WAS GIVEN BEFORE DINNER. THE PT HAD THE PHYSICAL THERAPIST VISIT HER AT 1130 WHERE HE CONDUCTED AN EVALUATION. THE PT HAS LIMITED BED MOBILITY, TRANSFERRING ABILITY AND CORE BALANCE ABILITIES; THE TASK OF TRANSFERRING PT TO CHAIR DURING PT EVALUATION REQUIRED MAXIMUN ASSISTANCE BY THE PHYSICAL THERAPIST. THE PT RECIEVED A COMPLETE BED BATH THIS AFTERNOON AT 1330 AND TOLERATED THIS CARE WELL. THE PT WAS UP IN A RECLINER IN THE ROOM AWAITING DINNER AT 1345. THE PT'S VITALS HAVE ELEVATED SLIGHTLY THIS SHIFT WITH HR IN THE 130'S, SBP IN THE 140-150'S, O2 LEVELS 97< ON RA, AND TEMPERATURE AT 99.8. THE PT HAS A TEMP HOLLINGSWORTH IN PLACE, PATENT AND DRAINING TO GRAVITY. PT HAD 50 ML OUTPUT THIS SHIFT. PT HAS NOT HAD A BOWEL MOVEMENT THIS SHIFT. WILL CONTINUE TO MONITOR UNTIL ONCOMING RN RECIEVES ASSIGNMENT.
--- NOTE | 2021-08-09 20:59 | NUR ---
ASSUMED CARE RECEIVED REPORT FROM KRISTI VARGHESE AT 1900. PT IS IN BED, ALERT TO SELF AND REALIZES SHE IS IN THE HOSPITAL. SHE IS CONFUSED, SLOW TO ANSWER QUESTIONS, AND VOICE IS VERY SOFT. ON ROOM AIR, SPO2 100%, LUNGS ARE CLEAR. HR IS ST WITH RATE IN LOW 100'S. BP IS HYPERTENSIVE WITH SBP IN 150-160 RANGE. BT X4, ABDOMEN SOFT AND NON-TENDER. HOLLINGSWORTH PATENT, DRAINING TO GRAVITY, YELLOW URINE IN TUBE. PAINTED WOUNDS ON FEET AND RIGHT CALF WITH BETADINE PER WOUND CARE ORDERS, COVERED HEELS WITH MEPILEX. CIRCULAR SCAB ON RIGHT CALF IS VERY TENDER TO TOUCH WELL BLISTER WOUND ON LATERAL RIGHT FOOT. CURRENTLY ONLY HAS TKO INFUSING TO RIGHT PG, LEFT PG IS SALINE LOCKED. MOST RECENT CBG IS 258, PT REQUESTING TO EAT CHEESE. ORDERS REVIEWED AND WILL TREAT PRESCRIBED.
--- NOTE | 2021-08-09 21:55 | NUR ---
PT'S MOTHER, JAN, CALLED AND UPDATED.
--- NOTE | 2021-08-10 00:40 | NUR ---
ATTEMPTED TO AWAKE PT FULLY IN ORDER TO TAKE PO CLONIDINE, BUT PT UNABLE TO REMAIN ALERT ENOUGH TO SAFELY SWALLOW PILL. WILL USE PRN IV HYDRALAZINE IF NEEDED FOR BLOOD PRESSURE CONTROL.
[2021-08-10 04:53] LABS: BASOPHILS PERCENT AUTO 1 % (0-2); EOSINOPHILS ABSOLUTE AUTO 0.06 K/mm3 (0.00-0.68); EOSINOPHILS PERCENT AUTO 0 % (0-6); Hematocrit 28.3 % (33.0-51.0); IMMATURE GRAN ABSOLUTE AUTO 0.28 K/mm3 (0.00-0.10); IMMATURE GRAN PERCENT AUTO 2 % (0-1); LYMPHOCYTES ABSOLUTE AUTO 1.43 K/mm3 (0.84-5.20); LYMPHOCYTES PERCENT AUTO 11 % (21-46); MONOCYTES ABSOLUTE AUTO 1.54 K/mm3 (0.16-1.47); MONOCYTES PERCENT AUTO 11 % (4-13); Mean Corpuscular HGB 30.7 pg (26.0-34.0); Mean Corpuscular HGB Conc 31.8 g/dL (31.5-36.5); Mean Corpuscular Volume 97 fL (80-100); Mean Platelet Volume 9.6 fL (9.1-12.4); NEUTROPHILS ABSOLUTE AUTO 10.18 K/mm3 (1.96-9.15); NEUTROPHILS PERCENT AUTO 75 % (41-73); Platelet Count 661 K/mm3 (150-400); RDW Coefficient Variation 14.1 % (11.7-14.2); RDW Standard Deviation 49.1 fL (35.1-46.3); Red Blood Cell Count 2.93 M/mm3 (3.80-5.20); White Blood Cell Count 13.59 K/mm3 (4.00-11.30)
[2021-08-10 05:15] LABS: Albumin, Blood 2.1 g/dL (3.4-5.0); Anion Gap 11 mmol/L (6-16); Blood Urea Nitrogen 49 mg/dL (8-24); Bun/Creatinine Ratio 13.4 (12.0-20.0); CO2, Blood 26 mmol/L (21-32); Calcium, Blood 9.4 mg/dL (8.5-10.1); Chloride, Blood 103 mmol/L (98-108); Creatinine, Blood 3.67 mg/dL (0.40-1.00); Glomerular Filtration Rate 15 (60-); Glucose, Blood 261 mg/dL (70-99); Magnesium, Blood 2.3 mg/dL (1.6-2.4); Phosphorus, Blood 4.3 mg/dL (2.5-4.9); Potassium, Blood 3.5 mmol/L (3.5-5.5); Sodium, Blood 140 mmol/L (136-145)
--- NOTE | 2021-08-10 06:03 | NUR ---
PT SLEPT FOR MAJORITY OF SHIFT. SPEECH AND MENTATION CONTINUES TO SLOWLY IMPROVE WHILE AWAKE. AFEBRILE. SPO2 >96% ON 2L NC. HR CONTINUES SR TO ST, RATE 90-100'S. BP REMAINS ELEVATED DESPITE PRN HYDRALAZINE. PO CLONIDINE GIVEN EARLY D/T SBP IN 180'S. CBG'S HAVE REMAINED IN 200'S, Q2H. 230ML CLEAR, YELLOW URINE OUT. WOUNDS PAINTED WITH BETADINE AND HEEL PROTECTORS APPLIED. NO BOWEL MOVEMENT THIS SHIFT. WILL REPORT TO ONCOMING SHIFT WHEN AVAILABLE.
--- NOTE | 2021-08-10 08:20 | NUR ---
Assumed care of pt at 0700. Report received from Alana BERRY. Pt out of bed this am with ceiling lift to recliner. Pt opens eyes spontaneously. Does not answer questions. Does not follow commands. At this time, plan to hold breakfast until pt is more alert. Subsequently will hold insulin and AM meds at this time. Pt is on room air. SpO2 90% or greater with room air. SR per monitor, rate 99.
--- NOTE | 2021-08-10 11:21 | NUR ---
Held all PO morning meds due to pt NPO. Speech therapy not able to see patient due to altered mental status. Holding short and long acting insulin due to hypoglycemia risk. Cefipime and clonidine discontinued due to potential encephalopathic side effects. Pending ammonia and blood gas CO2 levels. Plan of care discussed with Dr Gill and Dr Juares.
[2021-08-10 11:22] LABS: Base Excess Venous 3.3 mmol/L; PCO2 Venous 42.1 mmHg (38-42); pH Blood Venous 7.43 (7.34-7.37)
--- NOTE | 2021-08-10 13:00 | NUR ---
Pt is more alert. Able to state first name and follow simple commands. Provided with PO blood pressure meds metoprolol, amlodipine, and lisinopril. Pt able to take pills with sips of water with close supervision and repeatitive verbal cues. Pt lethargic afterwards, so plan to continue holding meals.
--- NOTE | 2021-08-10 17:34 | NUR ---
SUMMARY Neuro: Patient is much more alert than previously noted. Able to state name. Does not state current location or date. Soft voice. PERRL. Cough and gag intact. Pt was NPO for breakfast and lunch due to decreased LOC but was alert enough to eat dinner without coughing, gagging, choking, or other signs of aspration. Moves all extremities with equal strength and range of motion. Musculoskeletal: Out of bed to recliner for 4 hours today; required ceiling lift for mobilization. Pt is total care for all ADLs. Respiratory: SpO2 98-100% with room air. Lungs clear in all rao. No cough. Cardiac: SR-ST per monitor with HR averaging 95-115. No edema. 2+ pulses radial, pedal, posttibial. No edema. Clonidine stopped. SBP 150s. One dose of PRN labatalol given IV this shift. GI: NPO for breakfast and lunch. Able to safely eat dinner. Per orders from Dr Gill, sliding scale insulin given for dinner time. No glargine given this shift. No BM this shift : Pt had hemodialysis this shift. Mitchell continues to drain clear, yellow urine. Skin: Unchanged from initial assessment. Psychosocial: Improving compared to this AM. Update given to pt's mother.
--- NOTE | 2021-08-10 19:30 | NUR ---
ASSUMED CARE RECEIVED REPORT FROM KRISTI VARGHESE AT 1900. PT AWAKE AND SITTING UP IN BED WITH MOTHER AND OTHER FAMILY MEMBER PRESENT. SHE IS ALERT TO SELF ONLY AND CONFUSED. SHE CONTINUES TO MENTION HER NEEDING TO GET HERE, BUT SAID IS INCARCERATED. HR IS ST WITH RATE IN 1-TEENS. BP STABLE. ON ROOM AIR, SPO2 98-99%, LUNGS CLEAR. SHE ATE ABOUT HALF OF HER DINNER THIS EVENING. HOLLINGSWORTH PATENT, YELLOW CLEAR URINE IN TUBE DRAINING TO GRAVITY. CONTINUING WITH Q2H CBG'S. PG TO BILATERAL UPPER ARMS SALINE LOCKED. ORDERS REVIEWED AND WILL TREAT PRESCRIBED.
[2021-08-11 04:26] LABS: Hematocrit 30.2 % (33.0-51.0); Hemoglobin 9.5 g/dL (11.5-16.0); Mean Corpuscular HGB 31.4 pg (26.0-34.0); Mean Corpuscular HGB Conc 31.5 g/dL (31.5-36.5); Mean Corpuscular Volume 100 fL (80-100); Mean Platelet Volume 9.4 fL (9.1-12.4); Platelet Count 704 K/mm3 (150-400); RDW Coefficient Variation 14.9 % (11.7-14.2); RDW Standard Deviation 52.9 fL (35.1-46.3); Red Blood Cell Count 3.03 M/mm3 (3.80-5.20); White Blood Cell Count 13.84 K/mm3 (4.00-11.30)
[2021-08-11 04:43] LABS: Albumin, Blood 2.3 g/dL (3.4-5.0); Anion Gap 19 mmol/L (6-16); Blood Urea Nitrogen 33 mg/dL (8-24); Bun/Creatinine Ratio 11.5 (12.0-20.0); CO2, Blood 20 mmol/L (21-32); Calcium, Blood 9.7 mg/dL (8.5-10.1); Chloride, Blood 101 mmol/L (98-108); Creatinine, Blood 2.88 mg/dL (0.40-1.00); Glomerular Filtration Rate 20 (60-); Glucose, Blood 328 mg/dL (70-99); Magnesium, Blood 2.4 mg/dL (1.6-2.4); Potassium, Blood 4.4 mmol/L (3.5-5.5); Sodium, Blood 140 mmol/L (136-145)
--- NOTE | 2021-08-11 06:26 | NUR ---
PT WAS RESTLESS THIS SHIFT AND WAS NOT ABLE TO SLEEP WELL. SHE CONTINUES TO BE CONFUSED, ALERT TO SELF ONLY AND FOLLOWING SIMPLE COMMANDS INCONSISTENTLY. REMAINS ON ROOM AIR, SPO2 99%. HR CONTINUES SINUS TACH, RATE IN 100-1-TEENS. BP HYPERTENSIVE, PO MEDS ABLE TO BE GIVEN. PT WAS FEBRILE WITH TMAX OF 100.5, MEDICATED WITH PO TYLENOL AND CURRENTLY 99.2. TEMP HOLLINGSWORTH REMAINS PATENT, 250ML YELLOW URINE OUT. NO BOWEL MOVEMENT. BILATERAL HEELS AND OTHER WOUNDS ON LEGS PAINTED WITH BETADINE, HEELS ELEVATED WITH PILLOWS. CBG'S THROUGHOUT THE NIGHT HAVE BEEN IN 300'S, AM LABS SHOWED CO2 OF 20 AND ANION GAP OF 19. CALL TO DR. TERRY AND NO NEW ORDERS GIVEN. CONTINUING Q2H CBG'S. WILL REPORT TO ONCOMING SHIFT WHEN AVAILABLE.
--- NOTE | 2021-08-11 07:00 | NUR ---
ASSUME CARE: I have assumed care of this patient.
[2021-08-11 10:39] LABS: Source, Urine Foley catheter
[2021-08-11 10:48] LABS: Bilirubin, Urine Neg (Neg); Blood, Urine 2+ (Neg); Glucose Qualitative, Urine 4+ (Neg); Ketones, Urine 3+ (Neg); Leukocyte Esterase, Urine 2+ (Neg); Nitrite, Urine Pos (Neg); Protein, Urine 4+ (Neg); Urobilinogen, Urine NORM (Normal)
[2021-08-11 10:54] LABS: Appearance, Urine Clear (Clear); Color, Urine Yellow (P-Yellow)
[2021-08-11 10:56] LABS: Bacteria Rare /hpf; Red Blood Cells, Urine 0-2 /hpf (0-2); Squamous Epithelial Cells Few /hpf (Few); White Blood Cells, Urine 25-50 /hpf (0-5)
--- NOTE | 2021-08-11 18:04 | NUR ---
SHIFT SUMMARY: NEURO: Pt opens eyes spontaneously, she will occasionally attempt to talk but speech is incoharent. Zyprexa 5mg IM given this morning for possible hypoactive delerium; Starting BID 5mg PO this evening. She was up in chair for approximatley 5 hrs today. Respiratory: Clear/dim on RA Cardiac: Sinus tach in 120s for much of day. BP stable, diastolic slightoly elevated. GI/: Q2 hr blood sugar checks. Sugars have been in high 100's much of day. She received 1 unit regular insulin for each meal coverage in addition to her 10 units of long acting this morning. Pt takes meds crushed in apple sauce without difficulty. Morrison catheter draining red clots after urine culture was obtained. RN flushed morrison with 30mls of sterile water to improve patency. Very small, hard stool this AM during bedbath. Skin: no new skin breakdown noted. [place] mepilex placed over coccyx. Heel protectors placed per wound care orders and heels floated on pillow.
--- NOTE | 2021-08-11 21:45 | NUR ---
ASSUMED CARE PT ALERT, SITTING UP IN BED WITH EYES OPEN. SHE IS ABLE TO TRACK ME THROUGHOUT THE ROOM, ANSWERS SIMPLE QUESTIONS, AND WEAKLY SQUEEZED HANDS. TAKES PO MEDS WELL. VSS, ON ROOM AIR. HR IS ST WITH RATE IN 100-110'S. HOLLINGSWORTH IS DRAINING TO GRAVITY, RED COLORED URINE. WOUNDS ON BILATERAL HEELS UNCHANGED, COVERED WITH FOAM DRESSING. WOUND TO RIGHT POSTERIOR CALF IS TENDER TO TOUCH, UNCHANGED IN APPEARANCE. PG TO BILATERAL UPPER ARMS, SALINE LOCKED. POSITIVE BLOOD RETURN TO LEFT PG ONLY. ORDERS REVIEWED, WILL TREAT PRESCRIBED.
[2021-08-12 04:17] LABS: BASOPHILS ABSOLUTE AUTO 0.08 K/mm3 (0.00-0.23); BASOPHILS PERCENT AUTO 1 % (0-2); EOSINOPHILS ABSOLUTE AUTO 0.04 K/mm3 (0.00-0.68); EOSINOPHILS PERCENT AUTO 0 % (0-6); Hematocrit 30.1 % (33.0-51.0); Hemoglobin 9.7 g/dL (11.5-16.0); IMMATURE GRAN ABSOLUTE AUTO 0.23 K/mm3 (0.00-0.10); IMMATURE GRAN PERCENT AUTO 2 % (0-1); LYMPHOCYTES ABSOLUTE AUTO 1.44 K/mm3 (0.84-5.20); LYMPHOCYTES PERCENT AUTO 11 % (21-46); MONOCYTES ABSOLUTE AUTO 1.71 K/mm3 (0.16-1.47); MONOCYTES PERCENT AUTO 13 % (4-13); Mean Corpuscular HGB 31.8 pg (26.0-34.0); Mean Corpuscular HGB Conc 32.2 g/dL (31.5-36.5); Mean Corpuscular Volume 99 fL (80-100); Mean Platelet Volume 9.4 fL (9.1-12.4); NEUTROPHILS ABSOLUTE AUTO 9.68 K/mm3 (1.96-9.15); NEUTROPHILS PERCENT AUTO 74 % (41-73); Platelet Count 686 K/mm3 (150-400); RDW Coefficient Variation 15.7 % (11.7-14.2); RDW Standard Deviation 54.3 fL (35.1-46.3); Red Blood Cell Count 3.05 M/mm3 (3.80-5.20); White Blood Cell Count 13.18 K/mm3 (4.00-11.30)
[2021-08-12 04:44] LABS: Albumin, Blood 2.4 g/dL (3.4-5.0); Anion Gap 9 mmol/L (6-16); Blood Urea Nitrogen 42 mg/dL (8-24); Bun/Creatinine Ratio 10.3 (12.0-20.0); CO2, Blood 28 mmol/L (21-32); Calcium, Blood 9.8 mg/dL (8.5-10.1); Chloride, Blood 107 mmol/L (98-108); Creatinine, Blood 4.06 mg/dL (0.40-1.00); Glomerular Filtration Rate 13 (60-); Glucose, Blood 154 mg/dL (70-99); Magnesium, Blood 2.4 mg/dL (1.6-2.4); Phosphorus, Blood 4.6 mg/dL (2.5-4.9); Sodium, Blood 144 mmol/L (136-145)
--- NOTE | 2021-08-12 05:50 | NUR ---
PT SLEPT WELL THIS SHIFT. WAS UNABLE TO REMAIN AWAKE TO TAKE 0000 PO METOPROLOL DUE TO SOMNOLENCE, BUT AT AROUND 0500 THIS MORNING, PT IS MORE ALERT AND ANSWERING YES/NO QUESTIONS, WAS ABLE TO STATE SHE WAS COLD. SHE REMAINED ON ROOM AIR, SPO2 >98%. HR CONTINUES ST WITH RATE IN 100-110'S. BP HYPERTENSIVE, SBP 140-160'S. 150ML BLOOD TINGED URINE OUT OF HOLLINGSWORTH. AFEBRILE. LABS THIS AM WERE UNREMARKABLE. ANTICIPATING DIALYSIS TODAY. MOST RECENT CBG OF 154. PT REPOSITIONED Q2H WITH HEELS FLOATED ON PILLOWS. WILL REPORT TO ONCOMING SHIFT WHEN AVAILABLE.
--- NOTE | 2021-08-12 09:17 | NUR ---
ASSUMED CARE OF PT, REPORT RCV'D FROM SAGAR Sorto RN. PT ALERT TO SELF AND PLACE, COOPERATIVE WITH CARE, ANSWERS QUESTIONS SLOWLY BUT APPROPRIATELY WITH FLAT AFFECT. PT WEAK BUE/BLE, WORKED WITH PT TO SIT AT SIDE OF BED WITH MAX ASSISTANCE. SEE FULL SHIFT ASSESSMENT.
--- NOTE | 2021-08-12 13:46 | NUR ---
PT REMAINS ALERT AND ORIENTED, DROWSY BUT EASILY AROUSABLE. PROFOUNDLY WEAK REQUIRED MAX ASSISTANCE WITH REPOSITIONING AND IS FULL FEEDER. VSS AT THIS TIME. PTS MOTHER CALLED, UPDATED WITH PTS STATUS AND PLAN OF CARE. PT MADE PCU STATUS.
--- NOTE | 2021-08-12 16:00 | NUR ---
ASSUMED CARE: PT SATTING >95% ON RA, SINUS TACH IN 110'S, AND SUSTAINIGN SBP 130'S. REVIEWED PREVIOUS RN'S SHIFT ASSESSMENT AND AGREE. LUNG SOUNDS CLEAR AND DIM THROUGHOUT, PT RESPONSIVE TO VERBAL STIMULI, SLOW TO RESPOND. NO ACUTE NEEDS/DISTRESS AT THIS TIME, CALL LIGHT WITHIN REACH.
--- NOTE | 2021-08-12 19:09 | NUR ---
SHIFT SUMMARY: PT A&OX2 TO PERSON AND PLACE, RESPONSIVE TO VERBAL STIMULI BUT SLOW TO RESPOND. PT SATTING >95% ON RA, HR TACHY IN 110'S, AND SBP SUSTAINING 140'S. TEMP HOLLINGSWORTH PATENT AND DRAINING TO GRAVITY W/ CLEAR/YELLOW URINE. PT HAS BEEN CALLING APPROPRIATELY FOR NEEDS AND TOLERATING PO INTAKE/MEDS IN SMALL BITES. CALL LIGHT WITHIN REACH, NO ACUTE NEEDS/DISTRESS AT THIS TIME.
--- NOTE | 2021-08-12 20:00 | NUR ---
PT REPORT RECIEVED AT 1915, SAFETY CHECK COMPLETED. ASSUMED PT CARE. PT RECLINING IN BED QUIETLY WATCHING TV. PTT IS ORIENTED TO SELF, PLACE AND SOMEWHAT ORIENTED TO HER SITUATION WITH SOME CONFUSION NOTED. CALL LIGHT IN REACH.
[2021-08-13 03:12] LABS: Hematocrit 31.3 % (33.0-51.0)
[2021-08-13 03:27] LABS: Albumin, Blood 2.4 g/dL (3.4-5.0); Anion Gap 9 mmol/L (6-16); Blood Urea Nitrogen 26 mg/dL (8-24); Bun/Creatinine Ratio 8.6 (12.0-20.0); CO2, Blood 30 mmol/L (21-32); Calcium, Blood 9.8 mg/dL (8.5-10.1); Chloride, Blood 102 mmol/L (98-108); Creatinine, Blood 3.02 mg/dL (0.40-1.00); Glomerular Filtration Rate 19 (60-); Glucose, Blood 185 mg/dL (70-99); Magnesium, Blood 2.4 mg/dL (1.6-2.4); Phosphorus, Blood 4.4 mg/dL (2.5-4.9); Potassium, Blood 4.2 mmol/L (3.5-5.5); Sodium, Blood 141 mmol/L (136-145)
--- NOTE | 2021-08-13 07:04 | NUR ---
SHIFT SUMMERY: PT ALERT AND ORIENTED TO SELF AND PLACE AND HAS CONFUSION AND SHORT TERM MEMORY LOSS. PT MOVES ARMS WELL AND HAS LIMMETED RANG OF MOTION WITH HER LEGS. PT REMAINS STABLE OVER NIGHT WITH LITTLE CHANGE IN HER CONDITION. BLG'S STABLE OVER NIGHT. PT OCCASIONALY REFUSES TURNS AND HYGENE.
--- NOTE | 2021-08-13 08:01 | NUR ---
AM NOTE... ASSUMED CARE OF PT AT 0700 THE PT IS ALERT AND ORIENTED TO SELF AND PLACE AT THIS TIME, THE PT'S SPEECH IS VERY SOFT, THE PT'S SPEECH IS NONSENSICAL AT TIMES BUT OTHER TIMES THE PT IS ABLE TO RESPOND TO QUESTIONS APPROPRIATELY. THE PT IS ON RA WITH O2 SATS >95% L/S CLEAR T/O. THE PT IS IN SINUS TACH IN THE 100'S-110'S. BP STABLE, TRACE EDEMA IS NOTED TO THE BLE. BT PRESENT AND NORMOACTIVE ABD IS SOFT AND NONTENDER TO PALPATION. THE PT'S HOLLINGSWORTH IS PATENT AND DRAINING TO GRAVITY. WILL CONTINUE TO MONITOR.
--- NOTE | 2021-08-13 08:34 | NUR ---
AM NOTE: ASSUMED CARE OF PT AT 0700. PT IS AWAKE AND ORIENTED TO SELF AND SURROUNDINGS; PT ABLE TO STATE BIRTHDATE CORRECTLY THIS MORNING. THE PT'S SPEECH IS SLIGHTLY SLURRED AND SLOW TO RESPOND TO QUESTIONS OR COMMANDS. PT GETS CONFUSED WITH SPEECH WHEN ATTEMPTING TO CARRY ON LONG CONVERSATIONS. PT HAS WEAKNESS NOTED IN BUE AND IS NOT ABLE TO LIFT HER OWN WATER CUP AT THIS TIME. THE PT WAS ABLE TO WASH HER OWN FACE THIS MORNING INDEPENDENTLY WITH A FEW VERBAL COMMANDS. THE PT HAS CLEAR LUNG SOUNDS THROUGHOUT AND APPEARS TO BE TAKING FULL, DEEP BREATHS. CURRENTLY RR ARE IN THE 18-20'S AND O2 LEVELS ARE MAINTAINING 99<. THE PT HAS EASILY HEARD HEART SOUNDS; HR IS IN THE 100'S AND SBP IN THE 140'S THIS MORNING. PT HAS NO ABD DISTENTION OR PAIN UPON PALPATION. PT HAS AN INDWELLING CATHETER IN PLACE, PATENT AND DRAINING TO GRAVITY. PT HAS C/O PAIN IN BILATERAL HEELS AND WAS MEDICATED PER EMAR; MEPIPLEX BANDAGES IN PLACE. THE PT CONTINUES TO NEED FEEDING ASSTANCE. THE PT IS ABLE TO FEED HERSELF HER TOAST THIS MORNING, BUT STRUGGLES WITH FINE MOTOR SKILS SUCH HOLDING UTENSILS. THE PT IS ABLE TO SAFELY EAT THE FOOD. DR. JAMES AT BEDSIDE TO ASSESS PT THIS MORNING AT 0800. NO NEW ORDERS AT THIS TIME. PHYSICAL THERAPIST, PHILIP, AT BEDSIDE TO WORK WITH PATIENT RAIN MORING AT 0838. WILL CONTINUE TO MONITOR PT THROUGHOUT THE SHIFT.
--- NOTE | 2021-08-13 13:37 | NUR ---
AFTERNOON UPDATE: PT HAD PHYSICAL THERAPY BY THIS MORNING AT 0838 AND WAS EAGER AND MOTIVATED TO PARTICIPATE IN THERAPY. THE PT CONTINUES TO HAVE DECONDITIONED WEAKNESS; THE PT WAS ONLY ABLE TO HOLD HERSELF UP IN A SITTING POSITION FOR A FEW SECONDS. THE PT VERBALIZED THE DESIRE TO TRY AND STAND UP, BUT THIS TASK REQUIRED A MAXIMUN ASSIST. THE PT GOT A FULL BED BATH AND LINEN CHANGE THIS AFTERNOON AT 1100. THE PT'S TAILBONE WAS VISUALIZED AND APPEARS TO HAVE NO REDDNESS OR BREAKDOWN PRESENT. THE BANDAGE WAS REMOVED AND POWDER APPLIED TO CONTINUE TO PROTECT THE SKIN. AFTER THE BED BATH, THE PT WAS TRANSFERRED TO A CHAIR TO EAT LUNCH, AND TOLERATED THIS TRANSITION WELL. THE PT CONTINUES TO NEED ASSISTANCE WITH MEALS AT THIS TIME. THE PT SEEMED TO BE MORE CONFUSED THIS AFTERNOON COMPARED TO THIS MORNING. THE PT REQUIRED MORE REORIENTATION BY THIS RN WHEN ASSESSING LOC. FRESH WATER GIVEN TO THE PATIENT AND CALL LIGHT WITHIN REACH. WILL CONTINUE TO MONITOR.
--- NOTE | 2021-08-13 19:06 | NUR ---
UPDATE: PT TRANSFERRING TO PCU VIA CHAIR WITH PCT DIONISIO. REPORT GIVEN TO ELEUTERIO BERRY IN PCU. PT BELONGINGS COLLECTED AND MEDICATIONS SENT OFF WITH PT TO NEW ROOM.
--- NOTE | 2021-08-13 20:37 | NUR ---
Assumed care 1900. Pt is lethargic, but does wake up when in room. Oriented to self. Whispers and hard to understand. Pupils reactive, but pretty dilated. VSS on RA. Tele: sinus tach 100s. Unable to give meds due to alertness. Pt will wake up briefly, but when trying to give meds she was too sleepy and would just fall back to sleep. Pt was up in chair we moved pt back to bed via lift. Will continue to monitor.
--- NOTE | 2021-08-13 21:32 | NUR ---
CBG 381, 10 units long acting insulin given and MD notified. Order changed for sliding scale to be ACHS.
--- NOTE | 2021-08-14 04:44 | NUR ---
Events Specialist Note: Pt has been sleeping and lethargic most of night, does wake up to painful and verbal stimuli. Pt was in chair at start of shift. When pt is trying to communicate she whispers and it is very hard to hear/ understand what she is saying. Pt is oriented to self and place. Jarrett lift was used to get pt back in bed. Unable to give pt her night meds due to decreased alertness. Pupils are reactive, but pinpoint. Mitchell in place and draining, not a whole lot of urine output (this pt is a dialysis pt). Q2hr turns, heels floated since pt has pressure sore on left lower leg and heels. VSS on RA, contin. oxygen monitor overnight. RR 18-22. Tele: sinus tach 100-110s.
[2021-08-14 07:10] LABS: HBSAG SCREEN Negative (Negative)
--- NOTE | 2021-08-14 12:00 | NUR ---
ASSUMED CARE OF PT AT 0700. PT TO DIALYSIS AT 0900. APROX 1200: STOVE BOTTOM WORKER CALLED IN DIALYSIS BY [facility] D/T REPORTED HYPOTENSION, BRADYCARDIA AND UNRESPONSIVENESS. THIS RN TO DIALYSIS ROOM, PT APPEARS TO BE AT BASELINE MENTATION FROM MY PREVIOUS ASSESSMENT. PT TRANSPORTED BACK TO U03 VIA BED, SEE DOCUMENTED VS. DR LEMUS NOTIFIED OF EVENT BY CHARGE NURSE. PT ALERT AND ASSISTED WITH LUNCH W/OUT ANY DIFFICULTIES. WILL CONTINUE TO MONITOR.
--- NOTE | 2021-08-14 17:21 | NUR ---
NO ACUTE EVENTS SINCE LAST NOTE. SEE DOCUMENTED VS. FAMILY AT BEDSIDE VISITING PT. PT IS REQUIRING ASSISTANCE WITH FEEDING D/T WEAKNESS. HOLLINGSWORTH CATHETER HAS BEEN REMOVED. NO OTHER CHANGES. WILL CONTINUE TO MONITOR AND GIVE REPORT TO CATRACHITO MANRIQUEZ RN.
--- NOTE | 2021-08-14 21:05 | NUR ---
Assumed care 1899. VSS on RA. PO meds given. CBG was taken on and read too high for the meater to read, STAT lab drawn from perip[facility] line to verify exact level. Scheduled glargine given per orders, no sliding scale ordered at this time, will contact MD once STAT result comes back for orders. Pt is intermittent lethargic and alert. Alert enough to take meds this evening. Decrease alertness around 2044 when CBG was taken, but still opens eyes. Will get orders from MD. Tele: sinus tach 100-105.
[2021-08-14 21:14] LABS: Glucose, Blood 549 mg/dL (70-99)
--- NOTE | 2021-08-14 21:27 | NUR ---
Lab result for glucose was 549. Spoke with Dr. Wharton. ordered high sliding scale ACHS with an additional 15 units of glargine tonight. He would also like tomorrow for her dose of glargine to be 25units BID. Orders placed.
--- NOTE | 2021-08-14 22:23 | NUR ---
Pt still remained over 500 cbg on point of care 30 minutes after lispro 6 units and glargine 15units were given. Another peripheral draw is being drawn STAT per policy.
[2021-08-14 22:52] LABS: Glucose, Blood 557 mg/dL (70-99)
--- NOTE | 2021-08-14 23:41 | NUR ---
1.5 hrs after 6 unit lispro and 15 units glargine cbg was recheck , still over 500 on monitor and lab took another peripheral draw with showed glucose was 557. MD notified and order placed for additional 6 units lispro. Peripheral redraw was ordered for midnight.
[2021-08-15 00:22] LABS: Glucose, Blood 418 mg/dL (70-99)
--- NOTE | 2021-08-15 00:33 | NUR ---
Updated Dr. Funes of 0000 glucose of 418 and the history on this pt. Dr. Funes would like for me to recheck cbg in 1hr and call her with cbg.
--- NOTE | 2021-08-15 01:46 | NUR ---
Updated Dr. Funes of cb 283 @0100. Dr. Funes said to check cbg Q1 for 4 hours.
--- NOTE | 2021-08-15 04:19 | NUR ---
Radioisotope Technician Note: Pt is alert and lethargic on and off. Oriented x2 (self and place). VSS on RA. Pt cbg/glucose was high at start of shift (>500), MD notified and meds given per orders. MD increased the sliding scale to ACHS high scale. Additional 15 units of glargine were given per orders. CBG was still >500 after these two medication, MD added an additional one time dose of lispro 6 units. CBG has been trending down overnight and CBGs have been checked each hour per DR. Funes's verbal order to check Q1hr for 4hrs. Last one of the Q1hr checks will be 0500.
[2021-08-15 04:25] LABS: Hematocrit 33.5 % (33.0-51.0); Hemoglobin 10.5 g/dL (11.5-16.0)
[2021-08-15 04:42] LABS: Albumin, Blood 2.6 g/dL (3.4-5.0); Anion Gap 10 mmol/L (6-16); Blood Urea Nitrogen 40 mg/dL (8-24); Bun/Creatinine Ratio 9.9 (12.0-20.0); CO2, Blood 29 mmol/L (21-32); Chloride, Blood 101 mmol/L (98-108); Creatinine, Blood 4.06 mg/dL (0.40-1.00); Glomerular Filtration Rate 13 (60-); Glucose, Blood 180 mg/dL (70-99); Magnesium, Blood 2.4 mg/dL (1.6-2.4); Phosphorus, Blood 4.6 mg/dL (2.5-4.9); Potassium, Blood 3.7 mmol/L (3.5-5.5); Sodium, Blood 140 mmol/L (136-145)
--- NOTE | 2021-08-15 18:06 | NUR ---
SHIFT SUMMARY PT A&O TO SELF AND PLACE, SHE FORGETS LIMITATIONS AND HAS TROUBLE COMMUNICATING HER NEEDS. HER SPEECH IS SLOW TO RESPOND AND VERY SOFT SPOKEN. SHE WAS ABLE TO CORRECTLY STATE HER DATE OF ONCE, EVERYOTHER TIME THE DATES SHE STATED RANGED GREATLY. SHE GOT UP TO THE CHAIR WITH A GB AND 2 MAX ASSIST TO STAND & PIVOT. VSS, SPO2> 92% RA, ST 100-110'S. CBG STABLE THROUGHTOUT SHIFT. WILL CONTINUE TO MONITOR AND PROVIDE CARE UNTIL REPORT TO NOC.
--- NOTE | 2021-08-15 18:54 | NUR ---
THIS RN AGREES W/ STUDENT NURSE DOCUMENTATION THIS SHIFT.
--- NOTE | 2021-08-15 22:37 | NUR ---
PT ALTERNATES BETWEEN ALERT AND LETHARGIC. INITIALLY PT WAS ABLE TO ANSWER QUESTIONS APPROPRIATELY AND FOLLOWED DIRECTIONS. WHILE LETHARGIC SHE DOES NOT ANSWER QUESTIONS APPROPRIATELY; THIS GLOBAL PRESIDENT WOULD ASK "CAN YOU TAKE YOUR MEDICATIONS" AND PT WOULD REPLY "YES" AND NOT TAKE THE MEDICATION AND LATER REFUSED WHEN RN ASKED IF PT DID NOT WANT TO TAKE MEDICATIONS. PT STRUGGLES WITH COMMUNICATION AND IS VERY SOFT SPOKEN. PT WAS LEANING TO THE SIDE AND WAS REPOSITIONED Q2H; WILL CONTINUE TO REPOSITION. PT DENIES CP,NUMBNESS, TINGLING, NAUSEA. SR IN THE 90'S-100'S. PT HAS CLEAR LUNG SOUNDS, SPO2 >90%.
--- NOTE | 2021-08-16 00:36 | NUR ---
PT DESATTED DOWN TO 40-50% AT 1230 BUT QUICKLY RECOVERED. THIS SHIPPING SERVICES SALES REPRESENTATIVE OBSERVED PT NOT BREATHING FOR 3 SECOND INTERVAL BEFORE PT RECOVERED. PT THEN DESATTED DOWN TO 60% 5 AT 0035 AND THIS SHIPPING SERVICES SALES REPRESENTATIVE PUT PT ON 2L NC. PT SPO2 IS NOW >90%.
--- NOTE | 2021-08-16 02:45 | NUR ---
PT'S MOTHER CALLED AT 0230 ASKING FOR UPDATE ON PT. THIS LUBRICATION SERVICER GAVE HER AN UPDATE AND NOTIFIED HER OF BLOOD SUGAR TRENDS AND OVERALL CONDITION. KRISTI DYER LISTENED IN ON SPEAKERPHONE.
[2021-08-16 04:35] LABS: Hematocrit 37.5 % (33.0-51.0); Hemoglobin 11.5 g/dL (11.5-16.0)
[2021-08-16 04:59] LABS: Albumin, Blood 2.7 g/dL (3.4-5.0); Anion Gap 11 mmol/L (6-16); Blood Urea Nitrogen 51 mg/dL (8-24); Bun/Creatinine Ratio 9.2 (12.0-20.0); CO2, Blood 27 mmol/L (21-32); Calcium, Blood 10.3 mg/dL (8.5-10.1); Chloride, Blood 105 mmol/L (98-108); Creatinine, Blood 5.56 mg/dL (0.40-1.00); Glomerular Filtration Rate 9 (60-); Glucose, Blood 50 mg/dL (70-99); Magnesium, Blood 2.5 mg/dL (1.6-2.4); Phosphorus, Blood 6.4 mg/dL (2.5-4.9); Potassium, Blood 3.7 mmol/L (3.5-5.5); Sodium, Blood 143 mmol/L (136-145)
--- NOTE | 2021-08-16 05:05 | NUR ---
THIS STEAM SETTER CALLED DR SHERMAN AT 0504 ABOUT CBG [address] SHERMAN WAS ALSO NOTIFIED ABOUT PT DESATTING INTO THE 40-50'S WITH 5-[address] APNE[address]. [address] SHERMAN STATED SHE WILL REVIEW CHART AND PUT IN ORDER FOR PT'S HYPOGLYCEMIA. DR SHERMAN ALSO APPROVED ORDER FOR CPAP. CHARGE NURSE MILLER WAS LISTENING IN ON SPEAKER PHONE AND CONFIRMED/TOOK ORDER.
--- NOTE | 2021-08-16 05:07 | NUR ---
PT HAD ANOTHER APNEIC EPISODE FOR 5-10 SECONDS AND DIPPED DOWN INTO THE 40'S. THIS WEBBING TACKER ATTEMPTED TO ROUSE THE PT, BUT WAS NOT ABLE TO. PT'S SPO2 >90%, AND CHARGE NURSE MILLER WAS NOTIFIED ABOUT PT BEING DIFFICULT TO AROUSE. KRISTI DYER NOTIFIED CHARGE NURSE MILLER THAT PT'S CBG DROPPED DOWN TO THE 50'S. SEE NOTE ABOUT DR SHERMAN CALL.
--- NOTE | 2021-08-16 05:57 | NUR ---
0535 RN CHECKED CBG, WHICH WAS 110. PT IS NOW AROUSABLE.
--- NOTE | 2021-08-16 06:17 | NUR ---
SHIFT SUMMARY PT WAS ALTERNATING BETWEEN ALERT AND AROUSED. HAS DIFFICULTY COMMUNICATING AND IS CONFUSED AT TIMES. PT DESATTED SEVERAL TIMES THROUGHOUT THE NIGHT WITH 5-10 SECOND PERIODS OF APNEA AND WAS PUT ON 2L NC. PT'S CBG DROPPED TO 50, DR SHERMAN WAS CONTACTED ABOUT CGB AND APNEIC EPISODES AND DEXTROSE/CPAP WAS ORDERED. PT CBG 110 AT 0535 AND IS AROUSABLE. SEE PREVIOUS NOTES FOR MORE DETAILS.
--- NOTE | 2021-08-16 06:21 | NUR ---
THIS RN AGREES WITH SOFTWARE SUPPORT REPRESENTATIVE REMIGIO Rob'S DOCUMENTATION.
--- NOTE | 2021-08-16 13:45 | NUR ---
PT GONE TO DIALYSIS
--- NOTE | 2021-08-16 17:53 | NUR ---
SHIFT SUMMARY PT ALERT W/ TIMES OF LETHARGY. PT SPEECH FLUCTUATES BETWEEN CLEAR & EASILY UNDERSTOOD TO WHISPERED MUMBLED SPEECH. PT MANAGED TO STATE OWN BIRTHDAY CORRECTLY THIS EVENING AFTER GIVING WRONG BIRTHDATE T/O DAY. PT STATING "OH FUCK" WHEN STAFF ASKING PT FOR CURRENT DATE. PT NOT PROVIDING FURTHER ANSWERS TO ORIENTATION Q's. PT VSS. SPO2 > 92% ON RA OR 2L NC PRN. MONITOR SHOWING ST, HR 100-110's. PT W/ EPISODES OF CONTINENCE & INCONTINENCE THIS SHIFT, USING BEDPAN ABLE, OTHERWISE ATTENDS IN PLACE. PT W/ VERY WEAK STAND/PIVOT TRANSFER REQUIRING 2-3 PERSON MAX ASSIST TO CHAIR, THEN REQUIRING PT TO BE SLID BACK TO BED FROM RECLINER CHAIR. PT GONE TO DIALYSIS THIS SHIFT. CBG LOW THIS AM. PT TOLERATING PO INTAKE. CBG's THEN STABLE T/O SHIFT. PT C/O PAIN IN L ABD & BILAT "LEGS". PRN TYLENOL PROVIDED PER EMAR. PT NOT SHOWING SIGNS OF DISCOMFORT/DISTRESS.
--- NOTE | 2021-08-16 21:20 | NUR ---
ASSUMPTION OF CARE PT IS ALTERNATING BETWEEN ALERT AND LETHARGIC/CONFUSED. PT DID ARTICULATE THAT THE REASON SHE HAS BEEN WHISPERING IS BECAUSE SHE BELIEVES THE DOCTORS WANT HER TO WHISPER DUE TO EXTUBATION RECOVERY. THIS BLOCK CUTTER AND RN GOMEZ INFORMED HER THAT IT WAS OK FOR HER TO TALK AND IT WAS IMPORTANT FOR US TO COMMUNICATE, SHE CONTINUES TO WHISPER. AT THE START OF SHIFT PT DID SPEAK IN A NORMAL TONE OF VOICE, BUT QUICKLY WHISPERED WE ENTERED THE ROOM. BEDPAN WAS GIVEN TO THE PT, BUT PT DID NOT URINATE. PT FREQUENTLY REPOSITIONS SELF INTO AWKWARD POSITIONS AND REQUIRES ASSISTANCE TO REPOSITION. PT IS ON TELEMETRY ST @105. PT HAS CLEAR UPPER LUNG SOUNDS AND DIM BASES. SPO2 >90% WHILE ON RA.
--- NOTE | 2021-08-16 22:39 | NUR ---
UPDATE PT IS RECEPTIVE TO USING CPAP AND IS ALERT FOR LONGER PERIODS OF TIME COMPARED TO THE PREVIOUS NIGHT. PT HAS BEEN ASKING QUESTIONS ABOUT CARE AND INITIATING CONVERSATION.
--- NOTE | 2021-08-16 22:47 | NUR ---
2133 CLEANED AND CHANGED DRESSINGS W/ BETADINE PER ORDER.
--- NOTE | 2021-08-17 00:06 | NUR ---
UPDATE PT SEEMS TO BE RECEPTIVE HAVING CPAP ON. PT IS CONFUSED AND WAS UNABLE TO GIVE ACCURATE BIRTHDATE UNTIL REORIENTED. PT ALSO MENTIONED THAT SHE WANTED CRACKERS FOR HER MOM WHO IS NOT THERE.
--- NOTE | 2021-08-17 04:00 | NUR ---
AT 2200 TALKED TO RT YOUNGER ABOUT PT'S REQUEST FOR CPAP. 0230 AREN CAME AND PUT CPAP ON PT.
--- NOTE | 2021-08-17 04:08 | NUR ---
UPDATE PT STATED THAT SHE WANTED HER CBG CHECKED @ 2352 DUE TO FEELING NAUSEOUS. RN TOOK CBG WHICH WAS 288. PT AT 0400 STATED THAT SHE FELT SHAKY AND WANTED HER CBG CHECKED. LAB IN ROOM DRAWING LABS DUE TO POWER GLIDES NOT DRAWING.
[2021-08-17 04:19] LABS: Hematocrit 33.2 % (33.0-51.0); Hemoglobin 10.4 g/dL (11.5-16.0)
--- NOTE | 2021-08-17 04:42 | NUR ---
TYLENOL REASSESSMENT TYLENOL GIVEN AT 0349 PT STATED AT 0419 THAT HER HEEL WAS FEELING BETTER. DID NOT GET A NUMERICAL VALUE ON THE 1-10 PAIN SCALE TIL 0435.
[2021-08-17 04:46] LABS: Albumin, Blood 2.7 g/dL (3.4-5.0); Anion Gap 9 mmol/L (6-16); Blood Urea Nitrogen 41 mg/dL (8-24); Bun/Creatinine Ratio 9.4 (12.0-20.0); CO2, Blood 30 mmol/L (21-32); Calcium, Blood 9.9 mg/dL (8.5-10.1); Chloride, Blood 102 mmol/L (98-108); Creatinine, Blood 4.34 mg/dL (0.40-1.00); Glomerular Filtration Rate 12 (60-); Glucose, Blood 237 mg/dL (70-99); Magnesium, Blood 2.4 mg/dL (1.6-2.4); Phosphorus, Blood 3.8 mg/dL (2.5-4.9); Potassium, Blood 4.3 mmol/L (3.5-5.5); Sodium, Blood 141 mmol/L (136-145)
--- NOTE | 2021-08-17 05:29 | NUR ---
SHIFT SUMMARY PT INITIALLY ALERT AND ORIENTED, MORESO THAN PREVIOUS NIGHT. PT WAS ABLE TO HOLD A CONVERSATION AND OCCASIONALLY SPEAK IN A LOUDER VOICE. PT STATED THAT SHE HAS BEEN WHISPERING DUE TO THINKING THE HOSPITALIST WANTED HER TO REST HER VOICE DUE TO RECENT EXTUBATION. PT THINKS THAT SHE HAS ONLY BEEN IN THE HOSPITAL FOR 2 WEEKS. PT TOLERATED CPAP WHILE SHE SLEPT.
--- NOTE | 2021-08-17 06:11 | NUR ---
THIS RN AGREES WITH SPECIAL POLICE REMIGIO Rob'S DOCUMENTATION
--- NOTE | 2021-08-17 09:09 | NUR ---
ROUNDING: DR IN TO SEE PATIENT AND MAKE CHANGES TO CBG COVERAGE. CARB COUNT CORRECTION GIVEN PER DOCTOR REQUEST.
--- NOTE | 2021-08-17 12:12 | NUR ---
BLOOD SUGAR: BLOOD SUGAR ELEVATED DESPITE EXTRA CARB COVERAGE. AWARE, CHANGED PT TO MED SS. WILL COVER ORDERED.
--- NOTE | 2021-08-17 14:42 | NUR ---
BLOOD SUGAR: REPEAT BLOOD SUGAR AFTER SS COVERAGE AND LUNCH CARB COUNT 292. WILL CONT TO MONITOR AND REPORT TO PHYSICIAN NEEDED.
--- NOTE | 2021-08-17 15:14 | NUR ---
THERAPY: PT IN ROOM TO ATTEMPT TO WORK WITH PATIENT. PT UNABLE TO DO MUCH ACTIVITY. PT IS CURRENTLY CONFUSED AND NON SENSICAL WITH HER SPEECH.
--- NOTE | 2021-08-17 17:52 | NUR ---
PT HAS BEEN STABLE THIS SHIFT. PT IS CONFUSED AND SPEAKS NON SENSICALLY. PT MAX ASSIST TO SIT ON EDGE OF BED. PT DOES NOT BEAR OWN WEIGHT. TOLERATING DIET WELL. NEEDS OCCASIONAL ASSISTANCE WITH MEALS. PT CONT TO HAVE ELEVATED BLOOD SUGARS. STARTED ON CARB COUNT THIS SHIFT. PT SATS STABLE ON RA. TELE SINUS TACH. PT HEELS ELEVATED WITH HEEL PROTECTORS. DRESSINGS ON HEELS REMAIN IN PLACE. POWERGLIDE X2 PATENT. AM LABS TO BE REPEATED. BED ALARM ON FOR SAFETY.
--- NOTE | 2021-08-17 20:33 | NUR ---
ASSUMPTION OF CARE PT WAS LETHARGIC AT BEDSIDE REPORT. PT DID ROUSE TO VERBAL STIMULI AND WAS ALERT AND ORIENTED TO PLACE AND BIRTHDATE. PT IS ON TELEMETRY SINUS TACH @ 105. PT HAS CLEAR UPPER LUNG SOUNDS AND DIM BASES WITH SPO2 >90% ON RA.
--- NOTE | 2021-08-17 22:22 | NUR ---
UPDATE PT DESATTED DOWN TO THE 50'S WHILE SLEEPING AT 2215. THIS COFFEE FARMER AND CHARGE NURSE MILLER PUT THE CPAP ON AND NOW PT SPO2 >90%.
[2021-08-18 04:58] LABS: Hematocrit 28.7 % (33.0-51.0); Hemoglobin 8.8 g/dL (11.5-16.0)
[2021-08-18 05:45] LABS: Albumin, Blood 2.4 g/dL (3.4-5.0); Anion Gap 10 mmol/L (6-16); Blood Urea Nitrogen 60 mg/dL (8-24); Bun/Creatinine Ratio 11.5 (12.0-20.0); CO2, Blood 28 mmol/L (21-32); Calcium, Blood 9.8 mg/dL (8.5-10.1); Chloride, Blood 102 mmol/L (98-108); Creatinine, Blood 5.23 mg/dL (0.40-1.00); Glomerular Filtration Rate 10 (60-); Glucose, Blood 288 mg/dL (70-99); Magnesium, Blood 2.4 mg/dL (1.6-2.4); Phosphorus, Blood 5.8 mg/dL (2.5-4.9); Sodium, Blood 140 mmol/L (136-145)
--- NOTE | 2021-08-18 06:13 | NUR ---
SHIFT SUMMARY PT IS CURRENTLY SLEEPING ON CPAP WITH 1L BLEEDING IN, SPO2 >90%. PT IS ON TELEMETRY SR @ 100. PT WAS CONFUSED AND LETHARGIC FOR MAJORITY OF NIGHT WHILE AWAKE AND SLEPT THROUGH MOST OF THE NIGHT. PT WAS INTIALLY ABLE TO CORRECTLY STATE HER OWN BIRTHDAY. REST OF NIGHT SHE RESPONDED INNAPPROPRIATELY. PT'S CBG'S PEAKED TO 351 DURING THE NIGHT AND IS NOW 292.
--- NOTE | 2021-08-18 06:38 | NUR ---
THIS RN AGREES WITH BAND BUILDER REMIGIO Rob'S DOCUMENTATION
--- NOTE | 2021-08-18 18:18 | NUR ---
SHIFT SUMMARY; ASSUMED CARE AT 0700. ASLEEP WITH CPAP IN PLACE. AWAKES TO VERBAL STIMULI. CPAP REMOVED FOR BREAKFAST. A/A/OX3 WITH INTERMITANT CONFUSION. INSULIN PER EMAR. MEDS CRUSHED TODAY AND GIVEN IN APPLESAUCE, PER NOC RN APPEARED TO BE POCKETING MEDS. SPEECH EVAL ORDERED FOR [place]OW. ASSISTED WITH FEEDINGS, BED BATH, LINEN CHANGE AND ORAL CARE TODAY. HEEL PROTECTORS CHANGED TODAY PER WOUND CARE ORDERS. DIALYSIS TODAY FROM 9-NOON, TOLERATED WELL. VSS, Q 2 TURNS WITH MINIMAL ASSISTANCE FROM PT. WILL CONTINUE TO MONITOR AND TREAT UNTIL CHANGE OF SHIFT.
--- NOTE | 2021-08-18 23:37 | NUR ---
UPDATE BG 416 AT 2300. OT DOSE PER HIGH SS ORDERED. WILL CONTINUE Q1 CBG AND MONITOR.
[2021-08-19 04:27] LABS: Hemoglobin 10.3 g/dL (11.5-16.0)
[2021-08-19 05:01] LABS: Albumin, Blood 2.6 g/dL (3.4-5.0); Anion Gap 5 mmol/L (6-16); Blood Urea Nitrogen 41 mg/dL (8-24); Bun/Creatinine Ratio 10.2 (12.0-20.0); CO2, Blood 33 mmol/L (21-32); Calcium, Blood 9.9 mg/dL (8.5-10.1); Chloride, Blood 103 mmol/L (98-108); Glomerular Filtration Rate 13 (60-); Glucose, Blood 204 mg/dL (70-99); Magnesium, Blood 2.5 mg/dL (1.6-2.4); Phosphorus, Blood 4.6 mg/dL (2.5-4.9); Potassium, Blood 5.2 mmol/L (3.5-5.5); Sodium, Blood 141 mmol/L (136-145)
--- NOTE | 2021-08-19 05:34 | NUR ---
SHIFT SUMMARY LETHARGIC, ORIENTED TO SELF, FAMILY AND SURROUNDINGS. SLEPT T/O SHIFT. TOLERATED CPAP WITH 1L BLEED IN. 6 UNITS GIVEN PER ONE TIME ORDER, BG [address] 100-115. PT HAD EXTRA LARGE, SOFT BM THIS SHIFT. VSS, BED IN LOWEST POSITION WITH CALL LIGHT IN REACH. WILL CONTINUE TO MONITOR AND REPORT TO ONCOMING RN.
--- NOTE | 2021-08-19 16:53 | NUR ---
PATIENT ON PRESENTATION DURING HOURLY ROUNDING, WAS SWEATY, CHANGE OF CLOTHES, BLOOD PRESSURE WITHIN RANGE FOR PATIENT, NO TEMPERATURE, RR UNDER 18, SPO2 MID 90'S. CBG WAS 40 FROM 250 AT LUNCH WITH CORRECTIONAL INSULIN GIVEN. CALL TO PROVIDER. PROVIDER TO CONTINUE THE DEXTROSE PRN AND MAKE SURE WE FEED DINNER, AND IF INTAKE IS POOR TO HOLD CORRECTIONAL INSULIN. WILL CONTINUE TO MONITOR AND SOLEDAD BLLOD SUGAR 15 MINUTES FROM DEXTROSE FINISHING.
--- NOTE | 2021-08-19 18:11 | NUR ---
END OF SHIFT: NITA HAD A SINGLE EP[ISODE OF DIAPHORESIS AND LOW CBG PLEASE SEE NOTE. PATIENT ALSO HAD A LONG MANDY EPISODE WHERE SHE DIPPED BELOW 88, RESPONSIVE TO VERBAL STIMULI AND SATURATION CAME UP TO 98% WITH COMFORT 2L, PATIENT DENIED CPAP WHEN ASKED, WILL CONTINUE TO MONITOR. PATIENT SLEEPY MOST OF THE DAY. DID WAKE UP AND ANSWER QUESTIONS 3-4 ORIENTATION, CONFUSED AT TIMES. BLOOD PRESSURE HAS, WITHIN THE NORMAL FOR THIS PATIENT, PLAN FOR DIALYSIS TOMORROW CM STILL WORKING ON DC PLANNING. WILL CONTINUE TO MONITOR. MINIMAL EATING THROUGH THE DAY. PATIENT HAS BEEN TOO SLEEPY ORAL CARE DEFERRED AT THIS TIME FROM THIS RN DUE TO SLEEPINESS.
[2021-08-20 03:32] LABS: Hematocrit 29.6 % (33.0-51.0); Hemoglobin 9.2 g/dL (11.5-16.0)
[2021-08-20 04:08] LABS: Albumin, Blood 2.5 g/dL (3.4-5.0); Anion Gap 8 mmol/L (6-16); Blood Urea Nitrogen 51 mg/dL (8-24); Bun/Creatinine Ratio 9.8 (12.0-20.0); CO2, Blood 29 mmol/L (21-32); Calcium, Blood 9.6 mg/dL (8.5-10.1); Chloride, Blood 102 mmol/L (98-108); Creatinine, Blood 5.18 mg/dL (0.40-1.00); Glomerular Filtration Rate 10 (60-); Glucose, Blood 239 mg/dL (70-99); Magnesium, Blood 2.4 mg/dL (1.6-2.4); Phosphorus, Blood 5.9 mg/dL (2.5-4.9); Potassium, Blood 5.4 mmol/L (3.5-5.5); Sodium, Blood 139 mmol/L (136-145)
--- NOTE | 2021-08-20 05:07 | NUR ---
SHIFT SUMMARY PT LETHARGIC AT START OF SHIFT, TOO LETHARGIC TO SWALLOW MEDICATION SAFELY. STERNAL RUBBED AND PATIENT OPENED EYES, SAID HELLO, AND CLOSED EYES AGAIN. AT 4 AM VITALS, PT MORE AWAKE, ASKED TO WATCH TV. SP02>92% ON RA. TELEMETRY SHOWS NSR/SIT HR 90'S-100'S. PT DENIES PAIN. PT DID NOT VOID DURING THIS SHIFT, ESRD. NO BM THIS SHIFT. DRESSINGS REPLACED ON HEELS PER ORDERS. PT RESTING IN ROOM WATCHING TV. CALL LIGHT IN REACH.
--- NOTE | 2021-08-20 16:07 | NUR ---
PATIENT FALL: WHEN HEADING INTO ROOM PATIENT HAD MANAGED TO MOVE TO THE EDGE OF THE BED. SLIDE OUT OF BED AND WAS SITTING WITH HER BACK AGAINST THE SIDE OF THE BED. PATIENT WAS SITTING WITH A REMOVED RIGHT POWERGLIDE FROM HER RIGHT ARM, NO BLEEDING. INTITIAL CHECK OF NEURO STILL WITHIN PATIENT NORMAL OF GOING FROM TIMES OF ALERTNESS TO TIMES OF CONFUSION. NOT WORSE THAN PRIOR, NO OBVIOUS SIGNS OF BLEEDING. PATIENT ENDORSED SHE WANTED TO WALK, PATIENT WAS SUPPORTED TO STANDING POSITION AND PLACED INTO BED. PATIENT SKIN SHOWING NO SIGNS OF ACTIVE BLEEDING OR BRUISING. VITALS WITHIN PATIENTS NORMAL LIMITS. PATIENT HAS BEEN EVALUATED BY SELF AND INSIDE SALES REPRESENTATIVE. INSIDE SALES REPRESENTATIVE AWARE. PATIENT EDUCATED ON SAFETY. BED ALARM REPLACED ON.
--- NOTE | 2021-08-20 18:19 | NUR ---
END OF SHIFT SUMMARY: PATIENT DENIES CHEST PAIN/PRESSURE, STILL GOING FROM ALERT AND ANSWERING QUESTIONS APPORPRIATELY TO CONFUSED, TO WHICH SHE SLIPPED SLOWLY OUT OF BED, PLEASE SEE NOTE ON FALL. PATIENT DOES FOLLOW DIRECTIONS, WOUND CARE WAS PROVIDED. REFUSED ORAL CARE FROM THIS SULFUR CHLORIDE OPERATOR. PATIENT WAS DIALIZED WITH ~1L REMOVED PATIENT THIS MORNING WAS MORE ALERT AND ORIENTED THAN PREVIOUS DAY, BUT WITHIN HER NORMAL. WILL BE PLACING ON CAMERA, BED ALARM IS NOT WORKING WELL DUE TO PATIENT SIZE. PATIENT IN NO SIGNS OF ACUTE STRESS INCREASED APPEPITITE. CASE MANAGE WILL BE WORKING ON HER DISCHARGE STILL DUE TO COMPLEXITY. FAMILY AT BEDSIDE NO CONCERNS FROM THIS SULFUR CHLORIDE OPERATOR.
--- NOTE | 2021-08-20 18:52 | NUR ---
PATIENT BED ALARM NO WORKING APPROPRIATELY, DUE TO SIZE WILL INFORM NIGHT RN TO PLACE ON CAMERA.
[2021-08-21 04:16] LABS: Hemoglobin 9.3 g/dL (11.5-16.0)
[2021-08-21 04:46] LABS: Albumin, Blood 2.5 g/dL (3.4-5.0); Anion Gap 7 mmol/L (6-16); Blood Urea Nitrogen 37 mg/dL (8-24); Bun/Creatinine Ratio 10.6 (12.0-20.0); CO2, Blood 32 mmol/L (21-32); Calcium, Blood 9.9 mg/dL (8.5-10.1); Chloride, Blood 103 mmol/L (98-108); Creatinine, Blood 3.48 mg/dL (0.40-1.00); Glomerular Filtration Rate 16 (60-); Glucose, Blood 240 mg/dL (70-99); Magnesium, Blood 2.4 mg/dL (1.6-2.4); Phosphorus, Blood 4.9 mg/dL (2.5-4.9); Potassium, Blood 5.1 mmol/L (3.5-5.5); Sodium, Blood 142 mmol/L (136-145)
--- NOTE | 2021-08-21 06:41 | NUR ---
SHIFT SUMMARY NO ACUTE CHANGES. PT HEAVILY DROWSY BUT AWAKABLE. SP02>92 5ON RA. WORE CPAP AT [facility]. TELEMETRY READS NSR. PT DENIED PAIN. DID NOT MAKE ANY URINE OR BM THIS SHIFT. REPOSITIONED IN BED. PT SLEEPING IN ROOM, CALL LIGHT IN REACH, BED ALARM ON.
--- NOTE | 2021-08-21 13:57 | NUR ---
Spiritual Care visit. Pt. is awake in bed, and welcomes my visit. Pt. recalls this insurance salesperson from a previous visit. Pt. verbalizes questions about this insurance salesperson's taoism affiliation. Nutrition arrives with Pts. lunch. Prayed with Pt. Pt. affirms that this insurance salesperson can return at a later time.
--- NOTE | 2021-08-21 18:24 | NUR ---
SHIFT SUMMARY PT ALERT W/ EPISODES OF DIFFICULTY WAKING. PT CONTINUES TO BE CONFUSED. PT VSS. SPO2 > 92% ON RA-3L NC PRN OR CPAP WHILE SLEEPING. MONITOR SHOWING ST, HR 100-110s. PT W/ DIFFICULTY FEEDING SELF, REQUIRING 1 PERSON ASSISTANCE FOR MEALS. CBG's REQUIRING INSULIN COVERAGE (SEE EMAR). PT W/ NO URINARY OUTPUT OR DIALYSIS TODAY.
[2021-08-22 03:58] LABS: Hematocrit 28.2 % (33.0-51.0); Hemoglobin 8.8 g/dL (11.5-16.0)
[2021-08-22 04:15] LABS: Albumin, Blood 2.4 g/dL (3.4-5.0); Anion Gap 8 mmol/L (6-16); Blood Urea Nitrogen 51 mg/dL (8-24); Bun/Creatinine Ratio 10.7 (12.0-20.0); CO2, Blood 30 mmol/L (21-32); Calcium, Blood 9.7 mg/dL (8.5-10.1); Chloride, Blood 104 mmol/L (98-108); Creatinine, Blood 4.78 mg/dL (0.40-1.00); Glomerular Filtration Rate 11 (60-); Glucose, Blood 175 mg/dL (70-99); Magnesium, Blood 2.4 mg/dL (1.6-2.4); Phosphorus, Blood 6.5 mg/dL (2.5-4.9); Potassium, Blood 5.6 mmol/L (3.5-5.5); Sodium, Blood 142 mmol/L (136-145)
--- NOTE | 2021-08-22 06:01 | NUR ---
SHIFT SUMMARY NO ACUTE CHANGES THIS SHIFT. PT MORE ALERT, ABLE TO ANSWER QUESTIONS, SWALLOW PILLS W/ APPLESAUCE. SP02>92% ON RA AND ON CPAP. PT DESAT TO HIGH 80'S WHILE SLEEPING SO INCREASED BLEED IN TO CPAP 2L. TELEMETRY SHOWS SINUS TACH, HR 100'S. VSS. REPOSITIONED Q2H. ONE BRIEF CHANGE THIS SHIFT, UNMEASURED VOID, NO BM. CALL LIGHT IN REACH.
--- NOTE | 2021-08-22 09:03 | NUR ---
CARE ASSUMPTION PT MORE A&O TODAY. PT ABLE TO STATE NAME & PLACE. PT REPORTING INCORRECT BIRTHDATE & STATING CURRENT DATE MARCH. PT REORIENTED TO CURRENT DATE W/ PT THEN STATING "I'VE MISSED A LOT OF MY DAUGHTER'S SCHOOL THEN. MY MOM WON'T BE HAPPY." PT VSS. SPO2 > 92% ON RA. MONITOR SHOWING ST, HR 100-110s. DIALYSIS NURSE TO PT RM TO BEGIN TX IN THIS AM.
--- NOTE | 2021-08-22 17:01 | NUR ---
SHIFT SUMMARY PT A&O X 2-3. VSS. SPO2 > 92% ON RA. MONITOR SHOWING ST, HR 100-110s. DIALYSIS DONE IN PT RM TODAY. PT EATING MEALS W/ ASSISTANCE. CBGs STABLE THIS SHIFT.
--- NOTE | 2021-08-22 20:15 | NUR ---
PT UPDATE RIGHT AFTER SHIFT CHANGE STARTING THIS SHIFT, PCT CALLED THIS RN TO ROOM. PT HAD HAND AROUND DIALYSIS CATHETER, DRESSING REMOVED, NO STITCHES IN PLACE. UPON MEASUREMENT, CATHETER APPEARED TO BE APPROX 2 INCHES FROM INSERTION CITE. CHG DRESSING APPLIED TO TOP OF CATHETER, CALL PLACED TO DIALYSIS NURSEBARBARA. Barbara RN STATED HE WOULD BE IN ROOM TO ASSESS CATHETER APPROX 2100.
[2021-08-23 05:48] LABS: Hematocrit 30.6 % (33.0-51.0); Hemoglobin 9.4 g/dL (11.5-16.0)
[2021-08-23 06:19] LABS: Albumin, Blood 2.4 g/dL (3.4-5.0); Anion Gap 6 mmol/L (6-16); Blood Urea Nitrogen 42 mg/dL (8-24); Bun/Creatinine Ratio 11.7 (12.0-20.0); CO2, Blood 31 mmol/L (21-32); Calcium, Blood 9.6 mg/dL (8.5-10.1); Chloride, Blood 105 mmol/L (98-108); Creatinine, Blood 3.58 mg/dL (0.40-1.00); Glomerular Filtration Rate 15 (60-); Glucose, Blood 80 mg/dL (70-99); Magnesium, Blood 2.4 mg/dL (1.6-2.4); Phosphorus, Blood 4.7 mg/dL (2.5-4.9); Sodium, Blood 142 mmol/L (136-145)
--- NOTE | 2021-08-23 19:16 | NUR ---
SHIFT SUMMARY PATIENT CONFUSED AND MUMBLES TO SELF. SOFT WRIST RESTRAINTS AND MITTENS IN PLACE TO PREVENT PATIENT FROM PULLING OUT LINES. NO SIGNIFICANT EVENTS T/O SHIFT. REPORT GIVEN TO ONCOMING RN.
[2021-08-23 21:09] LABS: BASOPHILS ABSOLUTE AUTO 0.08 K/mm3 (0.00-0.23); BASOPHILS PERCENT AUTO 1 % (0-2); EOSINOPHILS ABSOLUTE AUTO 0.31 K/mm3 (0.00-0.68); EOSINOPHILS PERCENT AUTO 3 % (0-6); Hematocrit 30.2 % (33.0-51.0); Hemoglobin 9.6 g/dL (11.5-16.0); IMMATURE GRAN ABSOLUTE AUTO 0.06 K/mm3 (0.00-0.10); IMMATURE GRAN PERCENT AUTO 1 % (0-1); LYMPHOCYTES ABSOLUTE AUTO 1.12 K/mm3 (0.84-5.20); LYMPHOCYTES PERCENT AUTO 11 % (21-46); MONOCYTES ABSOLUTE AUTO 1.55 K/mm3 (0.16-1.47); MONOCYTES PERCENT AUTO 15 % (4-13); Mean Corpuscular HGB 31.9 pg (26.0-34.0); Mean Corpuscular HGB Conc 31.8 g/dL (31.5-36.5); Mean Corpuscular Volume 100 fL (80-100); Mean Platelet Volume 10.1 fL (9.1-12.4); NEUTROPHILS PERCENT AUTO 70 % (41-73); Platelet Count 440 K/mm3 (150-400); RDW Coefficient Variation 14.7 % (11.7-14.2); RDW Standard Deviation 54.7 fL (35.1-46.3); Red Blood Cell Count 3.01 M/mm3 (3.80-5.20); White Blood Cell Count 10.42 K/mm3 (4.00-11.30)
[2021-08-23 21:28] LABS: Albumin, Blood 2.5 g/dL (3.4-5.0); Anion Gap 6 mmol/L (6-16); Blood Urea Nitrogen 59 mg/dL (8-24); Bun/Creatinine Ratio 12.3 (12.0-20.0); CO2, Blood 30 mmol/L (21-32); Calcium, Blood 10.1 mg/dL (8.5-10.1); Chloride, Blood 105 mmol/L (98-108); Creatinine, Blood 4.79 mg/dL (0.40-1.00); Glomerular Filtration Rate 11 (60-); Glucose, Blood 106 mg/dL (70-99); Phosphorus, Blood 5.5 mg/dL (2.5-4.9); Potassium, Blood 5.6 mmol/L (3.5-5.5); Sodium, Blood 141 mmol/L (136-145)
[2021-08-23 23:02] LABS: PCO2 Arterial 45.7 mmHg (35-45); PO2 Arterial 101 mmHg (80-100); pH Blood Arterial 7.45 (7.35-7.45)
--- NOTE | 2021-08-23 23:13 | NUR ---
2240- PT REPORT RECIVED FROM RN ON MEDICAL. PT ARRIVED VIA HOSPITAL BED AND WAS PLACED INTO ICU BED AND CONNECTED TO MONITORS. ASSUMED OT CARE.
[2021-08-24 04:18] LABS: Hematocrit 29.2 % (33.0-51.0); Hemoglobin 9.1 g/dL (11.5-16.0)
[2021-08-24 04:33] LABS: Albumin, Blood 2.3 g/dL (3.4-5.0); Anion Gap 7 mmol/L (6-16); Blood Urea Nitrogen 63 mg/dL (8-24); Bun/Creatinine Ratio 12.6 (12.0-20.0); CO2, Blood 28 mmol/L (21-32); Calcium, Blood 9.7 mg/dL (8.5-10.1); Chloride, Blood 104 mmol/L (98-108); Creatinine, Blood 4.99 mg/dL (0.40-1.00); Glomerular Filtration Rate 10 (60-); Glucose, Blood 186 mg/dL (70-99); Magnesium, Blood 2.5 mg/dL (1.6-2.4); Phosphorus, Blood 5.9 mg/dL (2.5-4.9); Potassium, Blood 5.8 mmol/L (3.5-5.5); Sodium, Blood 139 mmol/L (136-145)
--- NOTE | 2021-08-24 04:38 | NUR ---
PT NOTED TO BE VERY DIAPHORETIC, CLAMMY AND UNRESPONSIVE. PT STERNAL RUBBED WITH NOT RESPONSE. BLOOD GLUCOSE DONE AT THIS TIME 111. SLAB TRIPPER CALLED. PT RESPONSIVE TO PAIN ONCE SLAB TRIPPER TEAM AT BEDSIDE. SEE SLAB TRIPPER NOTES. AT END OF SLAB TRIPPER PT MORE AWAKE AND NOTED TO CONTINUE TO REACH TOWARDS PERMA CATH DRESSING. RESTRAINTS MAINTAINED PER ORDER. MD NOTIFIED OF BLOOD GAS RESULTS, BG [address] LEMUS MADE OF AWARE OF PT NEEDING RESTRAINTS. PT TRANSFERED TO HIGHER LEVEL OF CARE DUE TO PATIENT NEEDING CPAP AT NIGHT TIME. REPORT CALLED TO PAYMASTER OF PURSES. PT TRANSFERED TO ICU 4. TRANSPORTED BY RESOURCE CONSERVATION MANAGER, KIAN AND THIS RN.
--- NOTE | 2021-08-24 06:42 | NUR ---
DECLAN JENKINS NOTE: PT HAD FIELD SERVICE CONSULTANT CALLED AROUND 2100 DUE TO DECREASED LOC, PT INITIALLY CONTINUED ON BIPAP ON THE MEDICAL UNIT BUT WAS ULTIMATLY TRANSFERED TO ICU DUE TO THE CONTINUED NEED FOR RESTRAINTS AND BIPAP. ON ARRIVAL TO ICU, PT VERY DIFFICULT TO AROUSE. INITIALLY, WITH PERSISTANT STERNAL RUB, THE PT OPENED HER EYES AND SAID "OWE THAT FUCKING HURTS, STOP". PT WAS THEN ABLE TO LOCALIZE AND IS ORIENT TO PLACE AND SELF. PT CONTINUES ON BIPAP WITH RESTRAINTS IN PLACE. PT DID OPEN HER EYES TO VOICE AT 0400 BUT WAS VERY DIFFICULT TO AROUSE AT 0600. PT WAS INITIALLY GIVEN D5% DUE TO DOWN TREND IN BGL AFTER WHICH BGL WAS 180'S-170'S. DR. CASTANEDA WAS CALLED AT AROUND 0100 DUE TO PERSISTANTLY ELEVATED BP, ORDER RECEIVED FOR PRN MEDICATION.
--- NOTE | 2021-08-24 09:25 | NUR ---
AM NOTE... ASSUMED CARE OF PT AT 0700, THE PT IS A&Ox3 AT THIS TIME ABLE TO STATE HER NAME, AND SHE IS AT [facility] IN [place]. THE PT'S VS STABLE AT THIS TIME SHE IS ON BIPAP THAT WAS TAKEN OFF TO A NC RUNNING AT 2L WITH O2 SATS >90% L/S CLEAR IN THE UPPER/MID LOBES AND DIM IN THE LOWER LOBES. THE PT IS IN SINUS TACH IN THE LOW 100'S BP IS STABLE AND SHE IS GETTING DIALYSIS THIS AM. NO EDEMA IS NOTED ON ASSESSMENT. THE PT HAS ATTENDS ON THAT ARE C/D/I AT THIS TIME. CALL LIGHT IN REACH WILL CONTINUE TO MONITOR.
--- NOTE | 2021-08-24 18:35 | NUR ---
SHIFT SUMMARY.... NO ACUTE NEGATIVE CHANGES NOTED THIS SHIFT. THE PT'S VS HAVE BEEN STABLE. THE PT HAD DIALYSIS TODAY WITH NO ISSUES. THE PT HAS BEEN TURNED Q2HRS. SHE CONTINUES TO BE ON RA WHILE AWAKE AND BIPAP WHILE SLEEPING. THE PT HAS BEEN A&Ox3 T/O THIS SHIFT. CALL LIGHT IN REACH WILL CONTINUE TO MONITOR UNTIL REPORT IS GIVEN TO ONCOMING KRISTI
[2021-08-25 04:17] LABS: Hematocrit 31.2 % (33.0-51.0); Hemoglobin 9.6 g/dL (11.5-16.0)
[2021-08-25 04:34] LABS: Alanine Aminotransfer (ALT/SGP 14 U/L (12-78); Albumin, Blood 2.6 g/dL (3.4-5.0); Albumin/Globulin Ratio 0.6 (0.8-1.8); Alk Phos 79 U/L (50-136); Anion Gap 5 mmol/L (6-16); Aspartate Aminotrans (AST/SGOT 13 U/L (12-37); Bilirubin, Direct <0.1 mg/dL (0.0-0.3); Bilirubin, Indirect Unable to Calculate mg/dL (0.1-0.7); Bilirubin, Total 0.2 mg/dL (0.1-1.0); Blood Urea Nitrogen 44 mg/dL (8-24); CO2, Blood 31 mmol/L (21-32); CPK Creatine Kinase 18 U/L (26-193); Calcium, Blood 9.9 mg/dL (8.5-10.1); Chloride, Blood 107 mmol/L (98-108); Creatinine, Blood 3.67 mg/dL (0.40-1.00); Globulin, Blood 4.3 g/dL (2.2-4.0); Glomerular Filtration Rate 15 (60-); Glucose, Blood 55 mg/dL (70-99); Magnesium, Blood 2.3 mg/dL (1.6-2.4); Potassium, Blood 5.1 mmol/L (3.5-5.5); Sodium, Blood 143 mmol/L (136-145); Total Protein, Blood 6.9 g/dL (6.4-8.2); Uric Acid, Blood 3.5 mg/dL (2.6-6.0)
--- NOTE | 2021-08-25 06:34 | NUR ---
SHIFT SUMMERY NOTE: PT STARTED OFF FAIRLY ALERT AT THE FIRST PART OF THE SHIFT AND WAS ABLE TO FOLLOW COMMANDS AND TOLLERATE ORAL MEDICAITON. PT AT BEST ORIENTED TO SELF AND PLACE. PT'S HR AND BP STABLE OVER NIGHT. PT CONTINUES IN RESTRAINTS, WHEN OUT OF RESTRAINTS SHE CONTINUES TO LOCALIZE THE DIALYSIS LINE. PT'S BGL SPOT CHECKED OVER NIGHT AND WAS FOUND TO BE 42. 250ML OF D5% WAS GIVEN AMD DR. ZHONG WAS NOTIFIED. BGL WAS 88 FOLLOWING THE D5% AND THE PT WAS THEN ABLE TO SWALLOW NEPRO AND SOME ENSURE CLEAR. WILL CONTINUE TO MONITOR. PT TOLLERATED BIPAP WELL OVER NIGHT.
--- NOTE | 2021-08-25 07:19 | NUR ---
TOOK OVER CARE OF PT AT 0700, PT RESTING ON RA.
--- NOTE | 2021-08-25 10:28 | NUR ---
SURGURY NOTIFIED OF CONSULT FOR UNSTAGEABLE PRESSURE INJURY
--- NOTE | 2021-08-25 11:51 | NUR ---
DR. AMOS NOTIFIED OF PODIATRY CONSULT, STATES WILL SEE PT. ON THURSDAY
--- NOTE | 2021-08-25 18:41 | NUR ---
SUMMARY NO ACUTE EVENTS TODAY. NEW WOUND PHOTOS TAKEN, PODIATRY CONSULTED AND PLANS TO SEE PT THURSDAY. NOTABLE LETHARGY 20 MINUTES AFTER ZYPREXA ADMINISTRATION.
[2021-08-26 04:24] LABS: Hematocrit 29.3 % (33.0-51.0); Hemoglobin 9.3 g/dL (11.5-16.0)
[2021-08-26 04:39] LABS: Magnesium, Blood 2.4 mg/dL (1.6-2.4)
[2021-08-26 04:43] LABS: Albumin, Blood 2.5 g/dL (3.4-5.0); Anion Gap 7 mmol/L (6-16); Blood Urea Nitrogen 70 mg/dL (8-24); Bun/Creatinine Ratio 15.2 (12.0-20.0); CO2, Blood 27 mmol/L (21-32); Calcium, Blood 9.6 mg/dL (8.5-10.1); Chloride, Blood 103 mmol/L (98-108); Creatinine, Blood 4.62 mg/dL (0.40-1.00); Glomerular Filtration Rate 11 (60-); Glucose, Blood 453 mg/dL (70-99); Phosphorus, Blood 6.3 mg/dL (2.5-4.9); Potassium, Blood 6.3 mmol/L (3.5-5.5); Sodium, Blood 137 mmol/L (136-145)
--- NOTE | 2021-08-26 07:15 | NUR ---
SHIFT SUMMERY NOTE: PT MOSTLY DROWSY OVER NIGHT BUT IS ABLE TO WAKE TO VOICE AND FOLLOW COMMANDS. PT IS ORIENTED TO SELF ONLY, BUT IS ABLE TO TOLLERATE ORAL INTAKE WELL OVER NIGHT. PT GIVEN NEPRO AT HS TO ATTEMPT TO MANTIAN BGL. PT BECAME HYPERGLYCEMEIC IN THE AM, WITH BGL OF 437. DR. ZHONG WAS CONSULTED AND ORDERED A DOSE OF SSI TO COVER THE HYPERGLYCEMIA, WHICH WAS GIVEN. PT'S SPO2 MOSTLY STABLE OVER NIGHT PT HAD ONE EPISODE OF DESATURATION OVER NIGHT SO WAS PLACE ON 3LPM VIA NC WHICH WAS ABLE TO MAINTAIN SPO2 WELL. DR. CASTANEDA CALLED AT 0530 FOR K+ OF 6.8, DIALYSYS PLANNED FOR THIS MORNING.
--- NOTE | 2021-08-26 09:28 | NUR ---
ASSUMED CARE REPORT FROM DEB BERRY AT 0700. PT RESTING IN BED. WAKES c PAINFUL STIMULI. ATTEMPTS TO OPEN EYES WHEN NAME CALLED. RETURNS TO SLEEP WHEN UNDISTURBED. SNORING RESP. CBG 191. MOVES EXT. RESTRAINTS IN PLACE FOR LINE PROTECTION. LUNGS DIM THROUGHOUT. O2 TURNED OFF, SATS 100%. SR, RATE 90'S. BP STABLE. PLAN FOR DIALYSIS THIS SHIFT. WILL CONTINUE TO MONITOR.
--- NOTE | 2021-08-26 13:38 | NUR ---
REPORT TO KRYSTA BERRY PT WOKE DURING LUNCH, ORIENT TO SELF ONLY. CONFUSED, INTERMITTANTLY CRYING. C/O PAIN TO FEET. MEDICATED c TYLENOL. ASSISTED c MEAL. TOLERATED WELL. DIALYSIS COMPLETE.
--- NOTE | 2021-08-26 13:56 | NUR ---
ASSUMED CARE OF PT. PT DROWSY, ALERT TO VERBAL STIMULATION, FOLLOWS COMMANDS WEAKLY. WORKING WITH PT AT THIS TIME.
--- NOTE | 2021-08-26 18:24 | NUR ---
SHIFT SUMMARY PT REMAINS MORE ALERT. ABLE TO PARTICIPATE IN CARE, EAT LUNCH AND DINNER. ORIENTED TO SELF ONLY. FOLLOWS SIMPLE COMMANDS. INTERMITTANTLY TEARFUL. C/O PAIN TO HEELS. VSS. DIALYSIS COMPLETE. WILL CONTINUE TO MONITOR UNTIL REPORT TO ONCOMING NURSE.
--- NOTE | 2021-08-26 19:30 | NUR ---
ASSUMED CARE. aoX1, ABLE TO ANSWER ALL QUESTIONS APPROPRIATLY. SOME HULLUCINATIONS, TALKING TO SELF. DENIES PAIN. [place] PATENT AND DRAINING. REPOSITIONED IN BED. OFFERED WATER. ATTENDS CHECKED. LUNGS CLEAR, ON RA. SINUS ON MONITOR. WILL CONTINUE TO MONITOR, CALL LIGHT IN REACH.
[2021-08-27 04:41] LABS: Hemoglobin 9.3 g/dL (11.5-16.0)
[2021-08-27 04:56] LABS: Magnesium, Blood 2.5 mg/dL (1.6-2.4)
[2021-08-27 04:57] LABS: Albumin, Blood 2.5 g/dL (3.4-5.0); Anion Gap 7 mmol/L (6-16); Blood Urea Nitrogen 46 mg/dL (8-24); Bun/Creatinine Ratio 12.6 (12.0-20.0); CO2, Blood 31 mmol/L (21-32); Chloride, Blood 106 mmol/L (98-108); Creatinine, Blood 3.66 mg/dL (0.40-1.00); Glomerular Filtration Rate 15 (60-); Glucose, Blood 72 mg/dL (70-99); Phosphorus, Blood 5.6 mg/dL (2.5-4.9); Potassium, Blood 4.6 mmol/L (3.5-5.5); Sodium, Blood 144 mmol/L (136-145)
--- NOTE | 2021-08-27 06:35 | NUR ---
Shift Summary. Aox1, able to make needs [place]. Can be tearful at times, few hullucinations tonight, but easily reoriented. LS clear, sats >90% on RA. When sleeping she had 2 episodes of desating, lowest in the 60's. She was placed on 3 liters nc and positioned upright, which resolved. HR sinus in the 80-90's. Abd soft, BT active. Incontient of urine, 2 attends change. Restraints still in place as she continues to remove lines. High Phos and Mag. Dr. Deng already stopped by and said she will have dialysis. Call light in reach. will report to daysinft.
--- NOTE | 2021-08-27 13:12 | NUR ---
[id number] PATIENT WAS AWAKE AND ALERT AND ORIENTED TO SELF THIS AM. SHE WAS DRY HOWEVER SHE HAD A GLUCOSE OF 47 .. SHE ATE BREAKFAST AND IT IS SLOWLY COMING UP. AT 0930 SHE WAS 100 ON HER GLUCOSE. AT NOON SHE WAS 149. RN HELD AM AND NOON INSULIN DOSES AND HER LONG ACTING. SHE RECIEVED A BATH AT NOON AND HER HAIR WASHED. SHE IS TALKING ABOUT WANTING A SMOKE AND DRUGS FROM "REALLY ANYONE". SHE IS THINKING THE SOCCER COMMENTATOR TODAY SUPPLIES HER WITH HER "DOPE". SHE ALSO IS TALKING OF WANTING TO LEAVE THE HOSPITAL. TELLING THE DR'S SHE COULD JUST WALK OUT OF HER. SHE SLIGHTLY WORKED WITH PT AND OT TODAY. SHE REMAINS IN RESTRAINTS BECAUSE EACH TIME SHE IS RELEASED SHE SCRATCHES AT THE DIALYSIS LINE. VS HAVE BEEN STABLE THIS AM AND SHE REMAINS AFEBRILE AND ON ROOM AIR.
--- NOTE | 2021-08-27 15:17 | NUR ---
Telephone report received from KRISTI Lujan. Anticipate pt arrival to PCU 8 shortly.
--- NOTE | 2021-08-27 15:21 | NUR ---
1500 MOVE TO PCU 8 REPORT GIVEN TO VIDEOTAPE SALES REPRESENTATIVE ALICIA Angulo , PATIENT AWARE OF THE MOVE. SHE VOIDED FOR ME THIS AM IN BRIEF AND WAS CLEANED UP. ENCOURAGING PATIENT TO MOVE SELF IN BED TO AIDE IN MOBILITY. DRESSING WAS CHANGED TO DIALYSIS LINE TODAY SINCE THE EDGES WERE ROLLED UP. NO NEW CONCERNS TO ADDRESS.
--- NOTE | 2021-08-27 15:59 | NUR ---
Received the pt from ICU, into PCU 8. She is alert, conversant but her speech is not always coherent or logical. Able to make most of her needs known. Assisted her to the bedpan at this time to void. Sinus tachycardia, 107 bpm noted by telemetry. She is asking for ice water to drink.
--- NOTE | 2021-08-27 17:25 | NUR ---
Reyna has been sleepy sitting in bed in the afternoon sun since her arrival from ICU. She was thirsty, and drank two cups of ice water. Conversation is confused, but she is calm, not agitated and not anxious. Reorients easily but she is only oriented to person and somewhat to place, at times.
[2021-08-28 06:04] LABS: Albumin, Blood 2.8 g/dL (3.4-5.0); Anion Gap 9 mmol/L (6-16); Blood Urea Nitrogen 61 mg/dL (8-24); Bun/Creatinine Ratio 12.7 (12.0-20.0); CO2, Blood 26 mmol/L (21-32); Calcium, Blood 10.4 mg/dL (8.5-10.1); Chloride, Blood 106 mmol/L (98-108); Creatinine, Blood 4.81 mg/dL (0.40-1.00); Glomerular Filtration Rate 11 (60-); Glucose, Blood 74 mg/dL (70-99); Phosphorus, Blood 6.4 mg/dL (2.5-4.9); Potassium, Blood 5.3 mmol/L (3.5-5.5); Sodium, Blood 141 mmol/L (136-145)
--- NOTE | 2021-08-28 06:36 | NUR ---
NOC SHIFT SUMMARY PT SLEPT WELL OVERNIGHT, ORIENTED TO SELF ONLY. ABLE TO VERBALIZE NEEDS. VSS PER PT TREND, ON RA. COMPLAINTS OF LEG PAIN RELIEVED WITH AVAILABLE PRNS AND REPOSITIONING. NO SIGNIFICANT EVENTS OVERNIGHT. WILL PASS ON TO DAY RN
--- NOTE | 2021-08-28 07:59 | NUR ---
Reyna is alert, oriented to person and to following directions. She is very confused about ongoing events, but able to relate stories and ask questions. Going to dialysis this morning by 0830. She is being fed breakfast at this time, and took oral medications crushed in applesauce. No complaints this morning, except that she was hungry.
--- NOTE | 2021-08-28 08:20 | NUR ---
Reyna was taken to dialysis.
--- NOTE | 2021-08-28 13:01 | NUR ---
WOUND CARE ON FEET AND RIGHT LOWER CALF COMPLETED. They were painted with betadine, and then mepilex dressings applied, and feet were then also placed in heel protectors. Pt was repositioned to her comfort.
--- NOTE | 2021-08-28 14:43 | NUR ---
Attends changed, and pt was turned to the window on her left side. She is pleasantly conversant, cooperative and has no complaints at this time.
--- NOTE | 2021-08-28 18:56 | NUR ---
Pt has been alert, oriented to person and following directions today. She had dialysis this morning. She has eaten with a good appetite. Incontinent of urine today, no bowel movement. Wound care done to her feet, and heel protectors in place. She worked with both PT and OT today and has been conversant and cooperative with care. She c/o pain in her feet/legs but Lyrica seemed to help.
[2021-08-29 05:38] LABS: Hematocrit 31.8 % (33.0-51.0)
[2021-08-29 05:59] LABS: Albumin, Blood 2.6 g/dL (3.4-5.0); Anion Gap 9 mmol/L (6-16); Blood Urea Nitrogen 41 mg/dL (8-24); Bun/Creatinine Ratio 10.9 (12.0-20.0); CO2, Blood 31 mmol/L (21-32); Calcium, Blood 9.5 mg/dL (8.5-10.1); Chloride, Blood 101 mmol/L (98-108); Creatinine, Blood 3.76 mg/dL (0.40-1.00); Glomerular Filtration Rate 14 (60-); Glucose, Blood 215 mg/dL (70-99); Magnesium, Blood 2.2 mg/dL (1.6-2.4); Potassium, Blood 4.5 mmol/L (3.5-5.5); Sodium, Blood 141 mmol/L (136-145)
--- NOTE | 2021-08-29 06:37 | NUR ---
NOC SHIFT SUMMARY PT SLEPT WELL OVERNIGHT, COMPLAINTS OF LE PAIN X1, PRNS GIVEN. VSS PER PT TREND, ON RA. SR ON TELEMETRY. Q2 TURN WHEN PT ALLOWS. BILATERAL WRIST RESTRAINTS IN PLACE FOR PULLING AT LINES AND HD CATH/POWERGLIDE IN PLACE. TOLERATING WELL. ORIENTED TO SELF AND PLACE BUT NONSENSICAL CONVERSATIONS AT TIMES. CAN MAKE NEEDS KNOWN. WILL MONITOR AND PASS ON TO DAY RN.
--- NOTE | 2021-08-29 11:09 | NUR ---
Spiritual Care Visit. Pt. was in a wheel chair in the hallway. PCU nurses recommended I roll pt. into her room to have a private visit. Pt. is open to a visit, is more communicative than in past visits. Pt. is unsettled by some issues with her brother(s). Listen attentively and pastorally with a calming presence. Pt. verbalized interest in what faith this cylinder press operator attended. Established rapport and facilitated a partial life review. Prayed with Pt. Pt. verbalized gratitude and asked if this cylinder press operator could bring her a Bible. Will bring Pt. a Koby NT
--- NOTE | 2021-08-29 11:26 | NUR ---
Pt assisted back to bed from wheelchair after sitting up in the chair in hallway after PT/OT work this morning.
--- NOTE | 2021-08-29 11:31 | NUR ---
1000 Pt was put into wheelchair by OT/PT, and sitting out in hallway in chair with direct supervision. Bilateral soft wrist restraints were removed, and sagar placed as pt is at risk for sliding out of chair. She tolerated this very well, but at this time was tired of the chair so she was put back into bed by KRISTI Nino and KRISTI Edgar. Bilateral soft wrist restraints were put on to prevent the pt from pulling the tegederm dressing on the right chest wall. This morning the pt was scratching and pulling at it, saying that it was "itchy". Bedside ointment applied to the area surrounding thedressing, and the pt said that it helped.
--- NOTE | 2021-08-29 11:52 | NUR ---
Pt c/o pain in her hips. She also had severe pain in her right calf when transferred from the wheelchair back to bed. Noted that the right calf wound is still covered in eschar, with surrounding redness and firm tissue, as noted in Dr. Dacosta consultation note. It was painted with betadine and a foam adhesive dressing applied, per his recommendation and orders. Right foot and left foot wounds were also painted with betadine and the mepilex dressings were reapplied. The wounds are dry, without any drainage. The pt is now c/o hip pain. Eggcrate mattress placed over the bed mattress, and pillows placed bilaterally under each hip for comfort. Call to Dr. Bowers regarding CBG of [phone]. Insulin was administered per orders.
--- NOTE | 2021-08-29 12:41 | NUR ---
Janis appears comfortable, sitting up in bed eating finger food lunch. She has no complaints at this time.
--- NOTE | 2021-08-29 14:04 | NUR ---
Pt pulled the Tegederm CHG dressing off of her HD cath. She had been complaining that it was itchy. NOted that the area underneath the area where the dressing was has urticaria, and pt c/o itching. Called KRISTI Graf, dialysis nurse, for suggessions. Area was cleansed with chlorihexidine using sterile technique and dressing was changed to sterile gauze with Micropore S tape at her suggestion. The pt's restraints had to be put back on to prevent her from dislogding the dressing again, or contaminating the HD cath site with her hands, or pulling on the HD catheter.
--- NOTE | 2021-08-29 14:53 | NUR ---
Attends were changed for urinary incontinence, and pt was put in wheelchair at her request to sit up. She was brought out to the hallway in front of the nurse's station for close obsrevation. She appears calm, watching people in the hallway and area around the desk. She occasionally closes her eyes and appears to be sleeping.
--- NOTE | 2021-08-29 15:36 | NUR ---
Assisted back to bed, 2 person max transfer assist using step board, gait belt and 2 staff members to transfer from wheelchair to bed. repositioned in bed on her right side. She quickly appears to fall asleep.
--- NOTE | 2021-08-29 16:24 | NUR ---
Telephone report given to Abby Sky RN at this time. PT will be transferring to room 347 shortly.
--- NOTE | 2021-08-29 16:58 | NUR ---
ASSUMED CARE OF PATIENT AT THIS TIME. PT TO ROOM 347.
--- NOTE | 2021-08-30 00:18 | NUR ---
AT 2102, Silvana LANGSTON INFORMED FLANGE TURNER ABOUT PT'S BS. HS BS 424. AT 2111, DR. HALE INFORMED OF BS. DR. HALE ORDERED, "TO GIVE 15 UNITS OF LANTUS & 5 UNITS OF SLIDING SCALE INSULIN." PT DID NOT HAVE A LANTUS PEN AVAILABLE. AT 2129, FLANGE TURNER GAVE 5 UNITS OF HUMALOG ORDERED. FLANGE TURNER CALLED PHARMACY AT 2131 ABOUT PEN AND GOT LANTUS PEN AT 2141. AT 2134, ENDOCROLOGIST, ADRIÁN CAMERON CALLED FLANGE TURNER. FLANGE TURNER INFORMED HIM,"I GAVE HER 5 UNITS OF HUMALOG. I HAVE NOT GIVEN HER LANTUS YET." DR. CAMERON ORDERED, " TO GIVE 5 UNITS OF LANTUS ONE TIME NOW AND NOT TO GIVE THE [address] ZHONG ORDERED." AT 2144, FLANGE TURNER GAVE 5 UNITS OF LANTUS TO PT ORDERED. WILL CONTINUE TO MONITOR.
--- NOTE | 2021-08-30 04:48 | NUR ---
AT 0435, PASTRY SUPERVISOR NOTIFIED DR EALSEY OF PT'S BS:[id number]. THE PROVIDER ORDERED TO " GIVE 5 UNITS OF HUMALOG ONCE." AT 0447, 5 UNITS OF HUMALOG INSULIN GIVEN ORDERED. WILL CONTINUE TO MONITOR.
--- NOTE | 2021-08-30 04:51 | NUR ---
A & O TO SELF. REORIENTED TO PLACE/DATE AND EVENT FREQUENTLY. V/S WNL. MECHANICAL SOFT/ADA DIET. HS ACUCHECK: 424. PROVIDER NOTIFIED OF BS 424. CARAMEL MAKER ORDERED 5 UNITS OF LANTUS & 5 UNITS OF HUMALOG PER SLIDING SCALE. 5 UNITS OF HUMALOG & LANTUS GIVEN ORDERED. AT 0245, ACUCHECK 409; DR. EASLEY NOTIFIED. DR. EASLEY ORDERED 5 UNITS OF HUMALOG ONCE. 5 UNITS OF HUMALOG GIVEN ORDERED. PT ROLLS WELL. INCONTINENT OF URINE/BOWEL. MEDIUM HARD-LIKE ROCK BM. WRIST RESTRAINTS IN PLACE. PERMACATH TO R) UPPER CHEST & POWERGLIDE TO L) UPPER ARM. MULTIPLE DRESSINGS TO LOWER EXTREMITIES REINFORCED. DYALISIS. PRN TYLENOL GIVEN FOR PAIN PER EMAR. WILL CONTINUE TO MONITOR.
[2021-08-30 06:16] LABS: Hematocrit 29.4 % (33.0-51.0); Hemoglobin 9.3 g/dL (11.5-16.0)
[2021-08-30 06:33] LABS: Albumin, Blood 2.6 g/dL (3.4-5.0); Anion Gap 17 mmol/L (6-16); Blood Urea Nitrogen 75 mg/dL (8-24); Bun/Creatinine Ratio 14.5 (12.0-20.0); CO2, Blood 24 mmol/L (21-32); Calcium, Blood 9.7 mg/dL (8.5-10.1); Chloride, Blood 95 mmol/L (98-108); Creatinine, Blood 5.19 mg/dL (0.40-1.00); Glomerular Filtration Rate 10 (60-); Glucose, Blood 437 mg/dL (70-99); Magnesium, Blood 2.3 mg/dL (1.6-2.4); Potassium, Blood 4.7 mmol/L (3.5-5.5); Sodium, Blood 136 mmol/L (136-145)
--- NOTE | 2021-08-30 16:32 | NUR ---
SHIFT SUMMARY MS MARIE IS ORIENTATED TO SELF, SOME NON-SENSICAL CONVERSATION AND SOMETIMES MORE ORIENTATED AND LESS CONFUSED, WAXING AND WANING THROUGHOUT THE DAY. SHE WENT TO DIALYSIS TODAY. SHE HAS BEEN IN SOFT WRIST RESTRAINTS TODAY. SHE HAS HAD ONE RESTRAINT OFF WITH STAFF PRESENCE TO EAT MEALS WITH ASSISTANCE AND ASSESS HOW SHE MIGHT DO WITHOUT RESTRAINTS BUT HAS PULLED AT HER HD CATHETER WHEN THE RESTRAINT WAS REMOVED. HER FAMILY VISITED HER TODAY AND TALKED WITH FORMING MACHINE ADJUSTER - PLAN AT THE MOMENT IS FOR SNF POST DISCHARGE THEN HER MOTHER WILL TAKE CARE OF HER AT HOME. ACCUCHECKS DOWN TO 152 BEFORE LUNCH TODAY. CONTINUOUS PULSE OX ON, IN THE 90S ON ROOM AIR. DR MUSE AWARE THAT PT CAN EITHER BE ON RESTRAINTS OR CPAP WHILE SLEEPING. INCONT OF STOOL, NO URINE TODAY WHILE NO IN DIALYSIS. WOUND DRESSINGS CHANGED, IODINE TOPICAL AND MEPILEX TO BOTH HEELS AND LEFT CALF. LEFT CALF IS A DARK SCABBED AREA, APPROX 1.5CM ROUND AND TENDER. TYLENOL GIVEN FOR PAIN. EGGCRATE MATTRESS IN PLACE. BED LOW, CALL LIGHT IN REACH, SIDE RAILS UP X 3.
--- NOTE | 2021-08-31 05:04 | NUR ---
SHIFT SUMMARY AOX1-BIRTHDATE & FOLLOWING MINIMAL DIRECTIONS. UNABLE TO STATE NAME, TOWN, PLACE, DATE OR SITUATION. CAN STICK OUT TONGUE OR SQUEEZE HANDS WHEN ASKED. REPORTS "MAN IN RM" WHEN NOONE BUT THIS NURSE PRESENT, VISUAL HALLUCINATIONS. VSS. REPORTS PAIN IN BLE, UNABLE TO RATE ON NUMBER SCALE, HOWEVER GRIMACES & MOANS MEDICATED c TYLENOL PER EMAR. PT VERY DROWSY. ATTEMPTED TO REMOVED BILAT WRIST RESTRAINTS HOWEVER PT ITCHED & TRIED PULLING ON RUCW PERMACATH THEREFORE RESTRAINTS PLACED ON TO PREVENT HD CATH BEING PULLED. DENIES N/V OR DYSPNEA. SPO2 DOES DROP TO 70'S W/O CPAP, BUT SATS RECOVER QUICKLY WHEN PT IS WOKEN. HS CBG @278. CALL LIGHT IN REACH. WILL MONITOR.
[2021-08-31 06:40] LABS: Hematocrit 30.3 % (33.0-51.0); Hemoglobin 9.5 g/dL (11.5-16.0)
[2021-08-31 07:03] LABS: Albumin, Blood 2.6 g/dL (3.4-5.0); Anion Gap 14 mmol/L (6-16); Blood Urea Nitrogen 52 mg/dL (8-24); Bun/Creatinine Ratio 13.7 (12.0-20.0); CO2, Blood 28 mmol/L (21-32); Calcium, Blood 9.8 mg/dL (8.5-10.1); Chloride, Blood 96 mmol/L (98-108); Glomerular Filtration Rate 14 (60-); Glucose, Blood 436 mg/dL (70-99); Phosphorus, Blood 6.8 mg/dL (2.5-4.9); Potassium, Blood 4.1 mmol/L (3.5-5.5); Sodium, Blood 138 mmol/L (136-145)
--- NOTE | 2021-08-31 07:49 | NUR ---
MD CALL CALLED DR MANLEY WITH PT UPDATE; BLOOD GLUCOSE 479. COVER WITH SLIDING SCALE INSULIN 10 UNITS PRESCRIBED AND RECHECK IN 2-3 HOURS AND CALL HIM WITH RESULTS PER DR MANLEY. MD ALSO INFORMED OF REPORTS OF PT DESAT EPISODES OVERNIGHT PT UNABLE TO HAVE CPAP ON WITH RESTRAINTS IN PLACE. I REQUESTED THAT HE LOOK AT HD CATHETER NIGHT RN SAID SHE MAY HAVE PULLED IT OUT SLIGHTLY.
[2021-08-31 08:40] LABS: Glucose, Blood 547 mg/dL (70-99)
[2021-08-31 11:10] LABS: Glucose, Blood 604 mg/dL (70-99)
--- NOTE | 2021-08-31 11:53 | NUR ---
UPDATE DR CAMERON RETURNED MY CALL. UPDATED ON GLUCOSE RESULTS AND MEDICATIONS. HE SAID TO HOLD 1130 AND 1230 S/S AND MEAL COVERAGE QUICK PEN INSULIN PT NPO AND SHE RECENTLY RECEIVED 10UNITS REGULAR INSULIN. RECOMMENDED TRYING USING THE HIPS FOR NEXT INSULIN INJECTION. PT ORIENTATED TO SELF ONLY, SOME COHERENT CONVERSATION AND SOME MUMBLED CONVERSATION THAT IS DIFFICULT TO UNDERSTAND. SATS DROP TO THE 60S-80S ON OXYGEN, ON CONTINUOUS PULSE OX AND WHEN SATS DROP SHE WILL RETURN TO THE 90S AFTER BEING WOKEN AND REMINDED TO TAKE DEEP BREATHS. DR MANLEY AND NOXIOUS WEEDS AND PEST INSPECTOR AWARE.
[2021-08-31 12:44] LABS: Glucose, Blood 581 mg/dL (70-99)
[2021-08-31 13:43] LABS: Bun/Creatinine Ratio 13.6 (12.0-20.0); Calcium, Blood 9.3 mg/dL (8.5-10.1); Creatinine, Blood 4.18 mg/dL (0.40-1.00); Potassium, Blood 4.1 mmol/L (3.5-5.5)
--- NOTE | 2021-08-31 15:56 | NUR ---
RN NOTE MS CYNTHIA HAS BEEN CONFUSED TODAY. ORIENTATED TO HER NAME WITH PROMPTING. MUMBLING CONVERSATION THAT IS HARD TO UNDERSTAND, SOME OF IT MAKES SENSE TO ME. SHE DID DESCRIBE SEEING AND HEARING A CAT TO THE MD DO RESIDENT URGENT CARE THIS MORNING. WRIST RESTRAINTS REMOVED AT 1315 - PT GRABS AT LINES SOMETIMES. HD CATH PADDED UP WITH BULKY GAUZE AND TEGADERM DRESSING TO DETER HER FROM PULLING AT IT. CONTINUOUS PULSE OX ON, PT DESATTED DOWN TO 60S EARLIER TODAY, RETURNING UP TO 90S AFTER PROMPTING TO TAKE DEEP BREATHS. PT HAS NOT HAD DESAT EPISODE IN THE LAST FEW HOURS. ON BIPAP NOW WITH SLEEPING, RT DENISE LARA INFORMED THAT SHE'S USING IT, AND SHE SAID SHE'LL COME AND CHECK ON HER. C/O PAIN TO R HEEL, GIVEN TYLENOL WHICH HELPS A SMALL AMOUNT. DRESSING CHANGES TO R HEEL AND R CALF DONE, LEFT HEEL LEFT UNDISTURBED AT THIS TIME. BLOOD SUGARS HAVE BEEN ELEVATED TODAY, DR MANLEY AND DR CAMERON BOTH INVOLVED IN HER CARE. LAB CHECKS DONE FREQUENTLY. LAST FINGERSTICK BLOOD SUGAR AT 16OOHRS WAS 177 AFTER 10UNITS REGULAR INSULIN WAS GIVEN AT 1130HRS. ON EGGCRATE MATTRESS, TURNED, PROPPED WITH PILLOW AND HEELS ELEVATED OFF BED WHEN TOLERATED. BED LOW, CALL LIGHT IN REACH.
--- NOTE | 2021-08-31 17:00 | NUR ---
RN NOTE CALL FROM DR CAMERON: COVER SUPPER WITH S/S AND CARB COUNT INSULIN PRESCRIBED USING THE HIP LOCATION FOR INJECTION.
--- NOTE | 2021-08-31 18:20 | NUR ---
SHIFT SUMMARY PLEASE SEE RN NOTE FROM 1600. SINCE THEN PT HAS SLEPT WELL WITH CPAP ON, MAINTAINING O2 SATS IN THE HIGH 90S. VERY SLEEPY, DIFFICULT TO AROUSE BUT WOULD RESPOND. AWOKEN WHEN MEAL TRAYS CAME. WHEN SHE WAS AWAKE ENOUGH SHE TOOK HER MEDICATIONS AND AGREED TO EAT HER MEAL TRAY. COVERED WITH 4 UNITS OF INSULIN BASED ON PTS ESTIMATE OF WHAT SHE THINKS SHE WILL EAT. FINGERSTICK PRE MEAL WAS 129.
--- NOTE | 2021-09-01 04:51 | NUR ---
SHIFT SUMMARY AOX2-NAME, PLACE, FOLLOWING DIRECTIONS. UNAWARE DATE, SITUATION, BIRTHDATE. VSS. EXCEPT PT DESATS ON RA WHEN ASLEEP R/T PERIODS OF APNEA, CPAP PLACED ON PT & SPO2 >90% c CPAP. E/U RESP. REPORTS PAIN IN BLE, MEDICATED 1X c TYLENOL & PT SLEPT WELL T/O NIGHT. NO S/SX N/V. CBG 110 & 119 THIS SHIFT, NO COVERAGE NEEDED. REAPPLIED PERMACATH DRESSING SINCE PT PULLING, ITCHING AT SITE. CALL LIGHT & BED ALARM IN PLACE. WILL MONITOR.
[2021-09-01 06:25] LABS: Hematocrit 28.7 % (33.0-51.0); Hemoglobin 9.2 g/dL (11.5-16.0)
[2021-09-01 06:38] LABS: Albumin, Blood 2.5 g/dL (3.4-5.0); Anion Gap 12 mmol/L (6-16); Blood Urea Nitrogen 65 mg/dL (8-24); CO2, Blood 28 mmol/L (21-32); Calcium, Blood 9.8 mg/dL (8.5-10.1); Chloride, Blood 101 mmol/L (98-108); Creatinine, Blood 5.01 mg/dL (0.40-1.00); Glomerular Filtration Rate 10 (60-); Glucose, Blood 147 mg/dL (70-99); Magnesium, Blood 2.4 mg/dL (1.6-2.4); Phosphorus, Blood 7.4 mg/dL (2.5-4.9); Potassium, Blood 4.2 mmol/L (3.5-5.5); Sodium, Blood 141 mmol/L (136-145)
--- NOTE | 2021-09-01 10:26 | NUR ---
AM NOTE MS MARIE IS MORE ALERT AND INTERACTIVE TODAY THAN YESTERDAY. STILL CONFUSED, BUT WORDS ARE LESS MUMBLED, MORE UNDERSTANDABLE. ORIENTATED TO SELF. FOLLOWING DIRECTIONS, PICKING AT FINGER PULSE OX PROBE, BUT REDIRECTED THIS AM. ON CONT PULSE OX IN THE 90S ON RA. DOWN TO HD AT 0900 AFTER EATING BREAKFAST.
--- NOTE | 2021-09-01 16:21 | NUR ---
RN NOTE BLOOD GLUCOSE 55 WHEN PT RETURNED FROM HD AT 1240. DR CAMERON CALLED AND INFORMED. GAVE PT 1/4 CUP MILK DIRECTED BY DR CAMERON, THEN HE SAID TO COVER WITH 2/3 OF THE CARB COVERAGE FOR LUNCH. PT MORE SLEEPY AFTER HD. BG RECHECKED AT 77, THEN 125, PT ATE MOST OF LUNCH AND COVERED WITH 2U OF INSULIN DIRECTED.
--- NOTE | 2021-09-01 16:23 | NUR ---
RN NOTE PT C/O 12/23 RIGHT LEG PAIN. MOANING. SHE HAD BEEN SITTING UP IN HER WHEELCHAIR AND RECENTLY HELPED BACK INTO BED. TYLENOL GIVEN AROUND [address] MANLEY INFORMED OF PT C/O PAIN. HE SAID THAT HE DOES NOT WANT TO PRESCRIBE NARCOTICS NOW, THAT I CAN GIVE HER 1800 DOSE OF LYRICA NOW (EARLY).
--- NOTE | 2021-09-01 17:48 | NUR ---
SHIFT SUMMARY MS MARIE IS ALERT, ORIENTATED TO HER NAME MOST OF THE DAY, SEEMS MORE CONFUSED AFTER DIALYSIS THIS AM. ON CONTINUOUS PULSE OX IN THE 90S ON ROOM AIR. SHE DOES PULL IT OFF AND REPLACED EACH TIME. C/O PAIN TO BOTH LEGS, THERESE R LEG. INFORMED, NO NARCOTICS TO BE GIVEN, PT GIVEN LYRICA AND TYLENOL. WOUNDS REDRESSED AND PHOTOS PLACED IN THE CHART. R HEEL IS BLACK, SLOUGH. MESSAGE VIA CHARGE NURSE FOR WOUND CARE NURSE TO LOOK AT WOUNDS TOMORROW. UP IN WHEELCHAIR TODAY FOR APPROX 2 HOURS. ACCUCHECK 55 WHEN SHE RETURNED FROM DIALYSIS, (SEE PRIOR NOTE), ACCUCHECK 183 PRE SUPPER. FAMILY AT BEDSIDE. BED LOW, CALL LIGHT IN REACH.
--- NOTE | 2021-09-02 04:37 | NUR ---
SHIFT SUMMARY AOX3-NAME, FAMILY, TOWN, PLACE. UNAWARE DATE, BIRTHDATE OR CURRENT SITUATION. WAY MORE ORIENTED THEN FIRST NIGHT I PROVIDED CARE, HOWEVER STILL FORGETFUL & CONFUSED. CAN FOLLOW SIMPLE DIRECTIONS. STILL HAS SOME NONSENSICAL RESPONSES TO QUESTIONS & REPORTS SEEING PEOPLE IN RM (VISUAL HALLUCINATIONS) WHEN ONLY THIS NURSE WAS PRESENT. VSS. WORE CPAP T/O NIGHT. REPORTS 10/10 PAIN IN BLE, MEDICATED 2X c TYLENOL & PT FINALLY ABLE TO REST WELL. BANDAGES CHANGED & NEW PICS PLACED IN CHART 09/01 ON DAY SHIFT. HS CBG 171. AWAITING SAFE DC PLAN. CALL LIGHT IN REACH, WILL MONIITOR.
[2021-09-02 06:08] LABS: Hematocrit 31.1 % (33.0-51.0)
[2021-09-02 06:26] LABS: Albumin, Blood 2.7 g/dL (3.4-5.0); Anion Gap 9 mmol/L (6-16); Blood Urea Nitrogen 56 mg/dL (8-24); Bun/Creatinine Ratio 13.5 (12.0-20.0); CO2, Blood 31 mmol/L (21-32); Calcium, Blood 9.6 mg/dL (8.5-10.1); Chloride, Blood 96 mmol/L (98-108); Creatinine, Blood 4.16 mg/dL (0.40-1.00); Glomerular Filtration Rate 13 (60-); Glucose, Blood 131 mg/dL (70-99); Magnesium, Blood 2.1 mg/dL (1.6-2.4); Phosphorus, Blood 5.6 mg/dL (2.5-4.9); Potassium, Blood 4.6 mmol/L (3.5-5.5); Sodium, Blood 136 mmol/L (136-145)
--- NOTE | 2021-09-02 15:59 | NUR ---
SHIFT SUMMARY ESCHAR TO HEELS SHOWN TO DR. MANLEY THIS AM. ORDER FOR PODIETRY CONSULT PLACED AND CALLED. DR. FAIR IN TO EVAL THE PT. NO SURGICAL INTERVENTION NEEDED PER DR. FAIR. STRICTLY FLOAT HEELS & MEPILEX DRESSINGS REPLACED. DR. NUNEZ RECOMMENDING VIT D TO BE ADDED TO MED REGIMEN. THIS WAS RELAYED TO DR. MANLEY. PT ALSO C/O POOR PAIN RELIEF- DR. MANLEY ORDERED AN EXTRA TYLENOL DOSE TO BE GIVEN. HD RECIEVED TODAY. PT WORKED WITH [employer] THER[employer]Y AND GOT OUT OF BED AND INTO CHAIR TODAY. CURRENTLY BACK IN BED WITH HEELS FLOATED. C/O PAIN. MEDICATION PER EMAR. NO OTHER ACUTE CHANGES IN ASSESSMENT AT THIS TIME. VS REVIEWED.
--- NOTE | 2021-09-02 16:53 | NUR ---
WOUND CARE RECOMMENDATION BL HEELS STABLE ESCHAR. OFFLOAD, FLOAT HEELS. KEEP HEELS DRY AT ALL TIMES. PAINT DAILY WITH BETADINE ALLOW TO AIR DRY. COVER WITH ABSORBENT DRESSING. IF WOUND BECOMES BOGGY OR OPENS PLEASE CALL WOUND CLINIC
--- NOTE | 2021-09-03 04:26 | NUR ---
SHIFT SUMMARY PT VERY LETHARGIC/DROWSY T/O SHIFT. AOX1-NAME ONLY TONIGHT, UNABLE TO ANSWER REST OF ORIENTATION QUESTIONS. MORE CONFUSED THEN PREVIOUS NIGHT. NONSENSICAL RESPONSES TO QUESTIONS. MUMMBLED SPEECH. HAVING VISUAL HALLUCINATIONS, REPORTS "WHAT ARE THOSE PEOPLE DOING IN HERE?" NOONE BUT NURSE IN . NO S/SX N/V, PAIN OR DYSPNEA. PT SLEPT SOUNDLY c CPAP ON T/O NIGHT. SPO2 >90%. CBG 160/157. CALL LIGHT & BED ALARM IN PLACE. WILL MONITOR.
--- NOTE | 2021-09-03 16:34 | NUR ---
SHIFT SUMMARY PT AxOx1-2 WITH FREQUENT CONFUSION. PT FREQUENTLY CALLS OUT OR MOANS WITH NON SENSICAL SPEECH. PT REPORTS PAIN IN LEGS THIS SHIFT. MEDICATED PER EMAR. PT TAKES PILLS CRUSHED IN PUDDING. PT TAKES A FEW MINUTES TO SWALLOW BITES AND SEEMS TO POCKET MEDS/FOOD. FEEDING ASSIST FOR MEALS. BLE WOUNDS ON HEELS. WOUND CARE PERFORMED TO BLE. NO DIALYSIS TODAY. PT INCONTINENT OF BOWEL AND BLADDER. PT HAD Q2 TURNS/REPOSITIONING. PALLIATIVE CARE CONSULTED. PT HAD FAMILY IN FOR VISIT THIS SHIFT. PT CURRENTLY RESTING IN BED WITH CALL LIGHT IN REACH. PT DENIES ANY NEEDS AT THIS TIME.
--- NOTE | 2021-09-03 16:51 | NUR ---
Care Conference: Spoke to pt's mom Brooke in depth today about pt's overall care needs, and lack of roasterman care available for pt's care needs. Brooke states during the call she is "praying for a miracle". The pt Reyna is currently on dialysis 3 times weekly as an inpatient for ESRD. She also has type 2 DM with a recent consult by Dr. Guillen resulting in insulin order changes. However, pt just today had another unexplained high blood sugar reading. 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 Pt also has dx of CHF, Seizure disorder, and slow healing wound of R heel. I gently reminded Brooke that we had spoken in the past about pt's multiple issues including need for bipap use for MANDY, and to help treat hypoxia when needed. At this time, pt remains a full code and Brooke remains adamant to keep it this way. Today however, for the first time in our talks, Brooke did acknowlege that the patient is at greater risk for a poor outcome due to the comorbidities. Sometime in the next week, there will be a care conference with pt's family and some of the care team to re-evaluate and discuss pt's longterm possibilities, exploring all options, including discussion of hospice. Pallliative will remain available and continue to offer support to pt and family.
--- NOTE | 2021-09-04 04:57 | NUR ---
SHIFT SUMMARY A/O TO SELF ONLY, NONSENSICAL GARBLED SPEECH AT TIMES. C/O PAIN TO BLE, MEDICATED WITH TYLENOL. ATTEMPTING TO PULL OUT PERMACATH TO RCW, SOFT L. WRIST RESTRAINT APPLIED TO PROTECT LINES. CPAP T/O NIGHT, CONT. BIOX IN PLACE. MOANING/YELLING T/O NIGHT. VSS, BED IN LOWEST POSITION WITH CALL LIGHT IN PLACE. WILL CONTINUE TO MONITOR AND REPORT TO ONCOMING RN.
[2021-09-04 05:44] LABS: Hematocrit 28.8 % (33.0-51.0); Hemoglobin 9.3 g/dL (11.5-16.0)
[2021-09-04 06:06] LABS: Albumin, Blood 2.6 g/dL (3.4-5.0); Anion Gap 8 mmol/L (6-16); Blood Urea Nitrogen 63 mg/dL (8-24); Bun/Creatinine Ratio 11.8 (12.0-20.0); CO2, Blood 28 mmol/L (21-32); Calcium, Blood 9.4 mg/dL (8.5-10.1); Chloride, Blood 101 mmol/L (98-108); Creatinine, Blood 5.35 mg/dL (0.40-1.00); Glomerular Filtration Rate 9 (60-); Glucose, Blood 232 mg/dL (70-99); Magnesium, Blood 2.3 mg/dL (1.6-2.4); Phosphorus, Blood 6.4 mg/dL (2.5-4.9); Potassium, Blood 5.4 mmol/L (3.5-5.5); Sodium, Blood 137 mmol/L (136-145)
--- NOTE | 2021-09-04 14:04 | NUR ---
CBG 53 BEFORE LUNCH, SNACK GIVEN AND PATIENT ATE HER ENTIRE LUNCH. HALF HOUR AFTER LUNCH CBG WAS 71. CARB COVERAGE HELD AND CBG RECHECKED 1 HOUR LATER AND CBG WAS 68. ANOTHER SNACK GIVEN. WILL CHECK AGAIN IN HALF AN HOUR.
--- NOTE | 2021-09-04 18:32 | NUR ---
PATIENT VERY SOMNOLENT THIS AM, BUT WOKE UP THIS AFTERNOON. CBG'S HAVE BEEN LOW TODAY AND INSULIN WAS ADJUSTED. PATIENT ATE 100% OF LUNCH AND DINNER. FAMILY AT BEDSIDE THIS AFTERNOON. WRIST RESTRAINT D/C'D THIS AM AT 0900. POWERGLIDE TO [place] WNL AND SL. DRESSINGS TO HEELS BILATERALLY REMAIN C/D/I. PATIENT TEARFUL AT TIMES TODAY, BUT CALMS WITH CONVERSATION. ABLE TO FEED SELF WITH SUPERVISION. INCONTINENT OF URINE/STOOL. WORKED WITH PT/OT AND WAS ABLE TO SIT AT THE SIDE OF THE BED. FALL PRECAUTIONS IN PLACE.
--- NOTE | 2021-09-05 04:39 | NUR ---
SHIFT SUMMARY LETHARGIC, RESPONDS TO VERBAL STIMULI, ORIENTED TO SELF ONLY. 2 MAX ASSIST FOR REPOSITIONS. ATTEMPTING TO PULL ON PERMACATH TO RCW, L. SOFT WRIST RESTRAINT APPLIED. CPAP T/O NIGHT WITH CONT. BIOX IN PLACE. VSS, NO ACUTE CHANGES AT THIS TIME. BED IN LOWEST POSITION WITH CALL LIGHT IN REACH. WILL CONTINUE TO MONITOR AND REPORT TO ONCOMING RN.
[2021-09-05 06:13] LABS: Albumin, Blood 2.6 g/dL (3.4-5.0); Anion Gap 11 mmol/L (6-16); Blood Urea Nitrogen 52 mg/dL (8-24); Bun/Creatinine Ratio 12.9 (12.0-20.0); CO2, Blood 29 mmol/L (21-32); Calcium, Blood 9.3 mg/dL (8.5-10.1); Chloride, Blood 102 mmol/L (98-108); Creatinine, Blood 4.04 mg/dL (0.40-1.00); Glomerular Filtration Rate 13 (60-); Glucose, Blood 436 mg/dL (70-99); Magnesium, Blood 2.3 mg/dL (1.6-2.4); Phosphorus, Blood 5.7 mg/dL (2.5-4.9); Potassium, Blood 4.5 mmol/L (3.5-5.5); Sodium, Blood 142 mmol/L (136-145)
[2021-09-05 08:05] LABS: Glucose, Blood 567 mg/dL (70-99)
--- NOTE | 2021-09-05 17:02 | NUR ---
PATIENT ALERT THIS AM AND WORKED WITH OT. UP IN CHAIR FOR ABOUT AN HOUR BEFORE SHE FELL ASLEEP AND WE OUT HER BACK TO BED. BLOOD SUGAR WAS GREATER THAN [address] CAMERON ADJUSTED HER INSULIN TO CORRECT. BLOOD SUGAR 108 BEFORE DINNER. VSS, ON RA WHILE AWAKE AND CPAP NEEDED WHEN ASLEEP. DRESSING TO HEELS AND BACK OF R LEG REMAIN C/D/I. PATIENT ABLE TO FEED HERSELF, BUT DOES NEED ASSISTANCE SETTING UP MEAL AND SUPERVISION D/T DROWSINESS AT TIMES. AWAITING NURSING HOME PLACEMENT.
[2021-09-06 04:45] LABS: Hematocrit 29.6 % (33.0-51.0); Hemoglobin 9.3 g/dL (11.5-16.0)
[2021-09-06 05:05] LABS: Albumin, Blood 2.6 g/dL (3.4-5.0); Anion Gap 11 mmol/L (6-16); Blood Urea Nitrogen 73 mg/dL (8-24); Bun/Creatinine Ratio 13.2 (12.0-20.0); CO2, Blood 29 mmol/L (21-32); Calcium, Blood 9.9 mg/dL (8.5-10.1); Chloride, Blood 102 mmol/L (98-108); Creatinine, Blood 5.55 mg/dL (0.40-1.00); Glomerular Filtration Rate 9 (60-); Glucose, Blood 102 mg/dL (70-99); Magnesium, Blood 2.3 mg/dL (1.6-2.4); Phosphorus, Blood 7.2 mg/dL (2.5-4.9); Potassium, Blood 4.3 mmol/L (3.5-5.5); Sodium, Blood 142 mmol/L (136-145)
--- NOTE | 2021-09-06 07:30 | NUR ---
PT ALERT TO SELF AND PLACE. PT ON CPAP T/O THE NIGHT. PT WAS NOTED TO CONTINOUSLY REMOVE THE TAPE ON HER PERMA CATH DRESSING. PT ON CAMERA MONITORING. FOR THIS REASON PT LEFT WRIST RESTRAINED. PT AT START OF SHIFT C/O PAIN TO HEELS MEDIACTED WITH TYLENOL. INCONTINENT OF URINE. BP 122/[address] TERRY NO INTERVENTION A THIS TIME CONTINUE TO MONITOR.
--- NOTE | 2021-09-06 12:19 | NUR ---
Mid shift Summary A/Ox3, occ forgetfulness. Medicated for 10/10 pain with PRN tylenol. Worked with therapy. More coherent today, although still has a little confusion. Eating by self with setup only. L wrist restraint on to protect perma cath. Had dialysis in the room this morning. Per Dr. Guillen, insulin better absorbed if given in subcu fats on hips. Will pass this on to receiving RN.
--- NOTE | 2021-09-06 15:25 | NUR ---
Supportive visit made today. Pt was pleasantly confused. She was able to answer some questions but she would quickly forget what we were discussing, and she seemed to be confused at times about her current situation. She talked about needing to cheek her check, needing to pay her rent, and wanted to ask her mom to take her shopping at [employer]. Pt says she wants to go to her mom's house. We briefly discussed hospice today, as an option. Pt stated she is extremely worried about her 11 year old daughter and what would happen to her if pt . She then seemed to forget the conversation in it's entirety. Plan to continue to follow this patient, including working with her family. This RN had a lengthy conversation with her cousin today, a nurse who the family has included in the discussion surrounding pt's care plan. She does understand the seriousness of pt's comorbidities, while also not understanding why there isn't better placement options for pt, and doesn't seem satisfied with the answers this RN has provided. Plan to meet with Brooke next week as previously stated.
--- NOTE | 2021-09-06 15:32 | NUR ---
Consult was received to provide education on CHO counting for meal-time insulin dosing. Pt reported minimal baseline knowledge regarding the determination of CHO content of foods. 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 Walked pt through a nutrition label and where to find Total Carbohydrate. Educated on how to adjust value based on number of servings consumed. Discussed how this number is used to determine meal-time insulin dose using 1:10 insulin:CHO ratio. When pt was asked a question to assess understanding, she became overwhelemed amd requested education be postponed until tomorrow. Pt expressed strong desire to learn information, stating that she "really needs to learn this information". Will return to continue education tomorrow.
--- NOTE | 2021-09-06 17:10 | NUR ---
AFTERNOON SHIFT SUMMARY- PT MORE CONFUSED SHIFT PROGRESSED. PT DISCUSSING FICTIOUS SCENARIOS. PT ATTEMPTING TO GET OUT OF BED, BED ALARM IN PLACE. RESTRAIGHT IN PLACE DUE TO PT PICKING AT PERMACATH BANDAGE. PT APPETITE GOOD. PT C/O PAIN, TREATED PER EMAR. INSULIN GIVEN PER REQUEST IN HIP FATTY AREA, FOR IMPROVED ABSORPTION. CALL LIGHT IN REACH, SIDE RAILS UP, BED ALARM IN PLACE.
[2021-09-07 04:56] LABS: Hematocrit 29.9 % (33.0-51.0); Hemoglobin 9.4 g/dL (11.5-16.0)
[2021-09-07 05:23] LABS: Albumin, Blood 2.6 g/dL (3.4-5.0); Anion Gap 11 mmol/L (6-16); Blood Urea Nitrogen 52 mg/dL (8-24); Bun/Creatinine Ratio 12.3 (12.0-20.0); CO2, Blood 28 mmol/L (21-32); Calcium, Blood 9.4 mg/dL (8.5-10.1); Chloride, Blood 101 mmol/L (98-108); Creatinine, Blood 4.24 mg/dL (0.40-1.00); Glomerular Filtration Rate 12 (60-); Glucose, Blood 106 mg/dL (70-99); Magnesium, Blood 2.2 mg/dL (1.6-2.4); Phosphorus, Blood 6.3 mg/dL (2.5-4.9); Potassium, Blood 4.4 mmol/L (3.5-5.5); Sodium, Blood 140 mmol/L (136-145)
--- NOTE | 2021-09-07 06:16 | NUR ---
PT REQUIRES FREQUENT ASSISTANCE SHE IS CONSTANTLY SCRATCHING SITE OF PERMA CATH WITH RIGHT HAND. PT LEFT WRIST RESTRAINED HOWEVER AT TIMES TURNS SELF TO BE ABLE TO USE LEFT HAND OR USES RIGHT HAND. PERMA CATH WITH TRANSPARENT DRESSING AND PROTECTIVE ABD PAD COVERED WITH TAPE. PT VERY RESTLESS WITH AT MOST 2 HOUR OF SLEEP DURING SHIFT. DR. TERRY AWARE WITH ORDER FOR MELATONIN WITH MININAL EFFECT. PT INCONTINENT. DRESSINGS TO WOUNDS CHANGED AND NEW PICTURES TAKEN. RIGHT HEEL WOUND WITH ESCHAR AND FOUL ODOR. BG MONITORED PER ORDER. PT DID REQUEST 1 PACK OF TWO SALTINE CRACKERS AND A SLICE OF CHEESE WHICH WAS GIVEN AT 0230 BG AT THE TIME 118. PT STATES SHE HAS NEVER HAD LACTOSE INTOLERANCE AND DOES NOT KNOW WHY THAT'S HER DIET ORDER. PT ON CPAP T/O SHIFT. PT ON CAMERA MONITOR. ALERT TO SELF AND PLACE HOWEVER CONFUSED.
--- NOTE | 2021-09-07 14:54 | NUR ---
Revisited pt to continue attempting CHO counting education. Walked pt through the nutrition facts on a variety of food products and nutrition facts handout, however she continued to struggle to identify total carbohydrate value on labels. Pt found added sugar value a few times, but was unable to be redirected to total carbohydrate. Pt was unsure where her glasses are. Ability to read CHO labels may improve some if she has her glasses. Walked pt through calulating insulin dose for covering CHO intake using 1:10 ratio. Demonstrated using phone to calculate dose. Pt became overwhelmed by end of education, but continued to assert that she needs to know this information before she goes home. Offered to return thursday to continue education. Pt will need significant improvement to be able to safely manage her current insulin regimen at home.
--- NOTE | 2021-09-07 16:14 | NUR ---
PT IS CONFUSED, FULL CARE ASSTANCE, COOPERATIVE WITH CARE AND MEDICATIONS. PT IS INCONTINENT. PT REQUESTED PRN APAP THIS AM FOR GENERAL PAIN; RECEIVED GOOD RELEIF. NO SIGNS OF PAIN, ANXIETY, OR AGGRESSION. FAMILY AT BEDSIDE IN LATE AFTERNOON. NO ACUTE CHANGES. BED ALARN ON, BED IN LOWEST POSITION. CALL LIGHT WITHIN REACH.
[2021-09-07 22:52] LABS: Glucose, Blood 696 mg/dL (70-99)
[2021-09-07 23:51] LABS: Bun/Creatinine Ratio 15.2 (12.0-20.0); Calcium, Blood 9.1 mg/dL (8.5-10.1); Creatinine, Blood 4.92 mg/dL (0.40-1.00); Potassium, Blood 5.2 mmol/L (3.5-5.5)
[2021-09-08 05:03] LABS: Hematocrit 29.3 % (33.0-51.0)
[2021-09-08 05:31] LABS: Albumin, Blood 2.4 g/dL (3.4-5.0); Anion Gap 12 mmol/L (6-16); Blood Urea Nitrogen 79 mg/dL (8-24); Bun/Creatinine Ratio 15.7 (12.0-20.0); CO2, Blood 22 mmol/L (21-32); Chloride, Blood 103 mmol/L (98-108); Creatinine, Blood 5.04 mg/dL (0.40-1.00); Glomerular Filtration Rate 10 (60-); Glucose, Blood 423 mg/dL (70-99); Magnesium, Blood 2.5 mg/dL (1.6-2.4); Phosphorus, Blood 7.7 mg/dL (2.5-4.9); Sodium, Blood 137 mmol/L (136-145)
--- NOTE | 2021-09-08 06:43 | NUR ---
PT BG >500 PER GLUCOMETER. VENOUS DRAW PER LAB. PER DR. CAMERON PT TO RECEIVE LANTUS 6 SCHEDULED AND TO GIVE 5 UNITS OF SLIDING SCALE WHILE AWAITNG VENOUS BG RESULT. PER MD NOTIFY HIM IF BG >600. CRITICAL RESULT CALLED 696. CALL MADE TO DR. CAMERON AND REMIGIO TURNER WITH ORDER FOR ONE TIME DOSE OF REGULAR INSULIN 5 UNITS IV, BMP AND TO RECHECK BG IN ONE HOUR. ONE HOUR POST ADMINISTRATION BG 471 AND NOTIFIED WITH ONE TIME ORDER OF LANTUS 10 UNITS. PT RESPONSIVE AND ABLE TO TAKE MEDICATIONS. PT W/RESTRAINT TO LEFT WRIST AND CPAP T/O NIGHT REMOVED THIS MORNING AT 6 AM. BG 423 WITH MORNING LAB DRAW. AWARE WITH NO NEW ORDERS AT THIS TIME.
[2021-09-09 05:33] LABS: Hematocrit 32.8 % (33.0-51.0); Hemoglobin 10.1 g/dL (11.5-16.0)
--- NOTE | 2021-09-09 05:33 | NUR ---
PT ALERT TO SELF AND PLACE. NOTED TO BE MORE ALERT HOWEVER CONFUSED WANTING TO GO TO THE STORE, SPEAKING ABOUT GOING TO THE KITCHEN NEXT DOOR ETC. PT CONTINUES TO FREQUENTLY REMOVE THE PROTECTIVE DRESSING TO HER DIALYSIS CATH. PT REMAINS WITH LEFT SOFT WRIST RESTRAINT AND ON CAMERA MONITORING. PT WITH CPAP T/O NIGHT.
[2021-09-09 06:01] LABS: Magnesium, Blood 2.3 mg/dL (1.6-2.4)
[2021-09-09 06:08] LABS: Albumin, Blood 2.6 g/dL (3.4-5.0); Anion Gap 8 mmol/L (6-16); Blood Urea Nitrogen 45 mg/dL (8-24); CO2, Blood 29 mmol/L (21-32); Calcium, Blood 9.8 mg/dL (8.5-10.1); Chloride, Blood 103 mmol/L (98-108); Creatinine, Blood 3.46 mg/dL (0.40-1.00); Glomerular Filtration Rate 16 (60-); Glucose, Blood 254 mg/dL (70-99); Sodium, Blood 140 mmol/L (136-145)
[2021-09-09 06:10] LABS: Phosphorus, Blood 4.7 mg/dL (2.5-4.9)
[2021-09-09 13:38] LABS: Glucose, Blood 633 mg/dL (70-99)
[2021-09-09 14:13] LABS: Glucose, Blood 678 mg/dL (70-99)
[2021-09-09 15:51] LABS: Glucose, Blood 685 mg/dL (70-99)
[2021-09-09 17:57] LABS: Bun/Creatinine Ratio 12.8 (12.0-20.0); Calcium, Blood 9.1 mg/dL (8.5-10.1); Creatinine, Blood 3.74 mg/dL (0.40-1.00); Potassium, Blood 4.9 mmol/L (3.5-5.5)
--- NOTE | 2021-09-09 19:21 | NUR ---
DAY SHIFT SUMMARY 46 YR OLD FEMALE ADMITTED WITH DKA/SEPSIS/AMS. WOUND CARE PROVIDED PER MD ORDER. A/O X2. 3 CRITICAL GLUCOSE LABS THIS SHIFT, MD AND CHARGE NURSE AWARE. GLUCOSE NOW TRENDING DOWN. MEDICATED PER EMAR AND MD ORDERS. PT IN RESTRAINTS DUE TO FALL RISK, ATTEMPTING TO PULL OUT DIALYSIS PERMACATH AND POWERGLIDE. CALL LIGHT WITHIN REACH. PT ON CAMERA MONITORING. FREQUENT ROUNDING.
[2021-09-10 05:19] LABS: Hematocrit 32.4 % (33.0-51.0); Hemoglobin 10.2 g/dL (11.5-16.0)
[2021-09-10 05:41] LABS: Magnesium, Blood 2.4 mg/dL (1.6-2.4)
[2021-09-10 05:44] LABS: Albumin, Blood 2.5 g/dL (3.4-5.0); Anion Gap 9 mmol/L (6-16); Blood Urea Nitrogen 57 mg/dL (8-24); CO2, Blood 26 mmol/L (21-32); Calcium, Blood 9.9 mg/dL (8.5-10.1); Chloride, Blood 101 mmol/L (98-108); Creatinine, Blood 4.07 mg/dL (0.40-1.00); Glomerular Filtration Rate 13 (60-); Glucose, Blood 131 mg/dL (70-99); Phosphorus, Blood 5.6 mg/dL (2.5-4.9); Sodium, Blood 136 mmol/L (136-145)
--- NOTE | 2021-09-10 06:42 | NUR ---
PT BG 339 AT 1938 AND PER REPORT STOP DOING Q1H WHEN BG<350. PT MANI TO COME OFF R WRIST RESTRAINT AND PLACED ON CPAP T/O THE NIGHT. LEFT WRIST RESTRAINT IN PLACE. PT MANI TO SLEEP T/O THE NIGHT WITH NO COMPLAINS. MINIMIZED INTERRUPTING PT SLEEP TO ALLOW HER TO REST. PT REMAINS ON CAMERA MONITORING AND HAD 3-4 EPISODES IN WHICH THEY NOTIFIED US THAT PT WAS MESSING WITH PERMA CATH.
--- NOTE | 2021-09-10 09:35 | NUR ---
INSULIN COVERAGE PT CBG IS 75 THIS AM, SHORT ACTING INSULIN HELD PER SLIDING SCALE, LONG ACTING 14 UNITS GIVEN, AFTER BREAKFAST CARB COUNTED INSULIN HELD DUE TO PT LOW CBG THIS AM AND PT LEAVING IMEDIATELY AFTER EATING FOR DIALYSIS. DIALYSIS CAN LOWER GLUCOSE, EXTRA INSULIN HELD UNTIL CBG CAN BE CHECKED.
--- NOTE | 2021-09-10 17:47 | NUR ---
DAY SHIFT SUMMARY 46 YR OLD FEMALE PT HERE FOR DKA/AMS/SEPSIS. PT WENT DOWN FOR DIALYSIS THIS SHIFT. DRESSINGS TO HEALS AND LEG CHANGED, WOUNDS CLEANED. MEDICATED PER EMAR. CALL LIGHT WITHIN REACH. PT IN RESTRAINTS DUE TO PULLING AT HER POWER GLIDE AND PERMACATH DRESSINGS AND LINES. RA WITH CPAP FOR SLEEP. MEDS CRUSHED IN APPLESAUCE.
[2021-09-10 21:45] LABS: Glucose, Blood 706 mg/dL (70-99)
--- NOTE | 2021-09-10 22:36 | NUR ---
PT WAS TRANSFERRED BACK TO ICU. CBG READ 706. DR WAS CALLED AND ORDERED PT BE MOVED. INSULIN WAS GIVEN, BUT PO NIGHT MEDS HELD TO TO CONFUSION AND LETHARGY. REPORT BONNIE TO RN. PT TRANSFERRED WITH ALL HER BELONGINGS.
[2021-09-10 23:57] LABS: Glucose, Blood 646 mg/dL (70-99)
--- NOTE | 2021-09-11 00:13 | NUR ---
PT TRANSFERRED TO ICU 2 FROM MEDICAL FLOOR SECONDARY TO INCREASING BLOOD GLUCOSE VALUES WITH INSULIN DRIP ORDERED. PT ARRIVES TO ROOM AT 2234. SLIDE TRANSFERED TO BED. PT REACHES TO HER PERMACATH DRESSING AND SCRATCHES PARTIALLY REMOVING DRESSING. NEW DRESSING APPLIED IN STERILE FASHION. SOFT RESTRAINTS APPROPRIATELY IN USE. PT ASKING FOR "HOT COCOA" AND FOOD. INSTRUCTED PT THAT HER BLOOD GLUCOSE LEVEL WAS IN 700'S AND THAT SHE WAS NEEDING INSULIN DRIP. STAT BLOOD GLUCOSE PER LAB DRAWN. VALUE AT 646. STARTED INSULIN DRIP AT 2 UNITS PER HOUR. WILL DO LAB DRAWN RECHECK AT 0115 AND TITRATE NEEDED.
--- NOTE | 2021-09-11 02:54 | NUR ---
PT NOTD TO HAVE A VERY DISTINCT SLEEP APNEIC TYPE RESPIRATORY PATTERN WHILE ASLEEP. DESATURATIONS INTO [address] 02 AT 2 L/M PER NASAL CANNULA WHERE PT COTINUED TO HAVE DESATURATIONS TO [address] O2 TO MOUTH, AND INCREASE TO 5 L/M SECONDARY TO PT BEING A MOUTH BREATHER WHILE ASLEEP. AT THIS TIME HAS MAINTAINED > 90 PERCENT. WILL CLOSELY MONITOR. CONTINUES AT 1 UNIT PER HOUR OF INSULIN. APPROX 60 POINT DROP IN BLOOD GLUCOSE LEVEL OVER ONE HOUR PERIOD. CONTINUING WITH Q HOUR BLOOD GLUCOSE CHECKS.
--- NOTE | 2021-09-11 03:41 | NUR ---
HAVE DECREASED INSULIN DRIP TO 0.5 UNITS PER HOUR. PT HAS MAINTAINED > 90 PERCENT SATURATIONS WITH OXYGEN DECREASED TO 2 L/M.
[2021-09-11 04:23] LABS: Hemoglobin 9.6 g/dL (11.5-16.0)
[2021-09-11 04:44] LABS: Magnesium, Blood 2.2 mg/dL (1.6-2.4)
[2021-09-11 04:45] LABS: Albumin, Blood 2.6 g/dL (3.4-5.0); Anion Gap 9 mmol/L (6-16); Blood Urea Nitrogen 46 mg/dL (8-24); CO2, Blood 29 mmol/L (21-32); Chloride, Blood 102 mmol/L (98-108); Creatinine, Blood 3.06 mg/dL (0.40-1.00); Glomerular Filtration Rate 18 (60-); Glucose, Blood 343 mg/dL (70-99); Phosphorus, Blood 5.1 mg/dL (2.5-4.9); Potassium, Blood 4.7 mmol/L (3.5-5.5); Sodium, Blood 140 mmol/L (136-145)
--- NOTE | 2021-09-11 09:49 | NUR ---
ASSUMED CARE OF PT, REPORT RCV'D FROM KRISTI ACEVEDO. PT ALERT AND ORIENTED, COOPERATIVE WITH CARE. PT TAKEN OUT OF RESTRAINTS THIS MORNING, PT SITTING UP IN BED FEEDING HERSELF. INSULIN GTT OFF AT 0715, MEDICATED WITH LONG AND SHORT ACTING INSULIN PER EMAR. DR. MANLEY AT BEDSIDE, NURSE NOTIFY FOR INSULIN TO BE ADMINISTERED ONLY IN THIGH/HIP-PHARMACY NOTIFIED. PT MADE MED, NO TELE. PT REPORTS EXTREME ITCHING AROUND DIALYSIS CATH. DRESSING TAKEN DOWN, BLISTERY RED RASH NOTED. CATCH BASIN CLEANER CONTACTED, DRESSING CHANGED TO BIOPATCH WITH TRANSPARENT DRESSING. PT REPORTS IMPROVEMENT WITH ITCHING. SEE FULL SHIFT ASSESSMENT.
--- NOTE | 2021-09-11 10:43 | NUR ---
Spiritual Care Visit. Pt. is awake in bed and welcomes my visit. Pt. is pleasant and rapport was quickly established. Pt. was unsettled about the unknown logistical details for dialysis upon discharge. Prayed with pt. Pt. displayed evidence of agreement and trust. Pt. verbalized interest in being visited by [facility] fan comfort jorge. Relayed pt. request to her ICu nurse
--- NOTE | 2021-09-11 17:49 | NUR ---
SHIFT SUMMARY PT REMAINS ALERT AND MOSTLY ORIENTED WITH PERIODS OF CONFUSION. PT COOPERATIVE WITH CARE AND REDIRECTABLE. PT REMAINS OUT OF RESTRAINTS, REPORTS NO ITCHING AROUND DIALYSIS CATH FOLLOWING DRESSING CHANGE. PT HAD GOOD APPETITE. COMPLAINS OF NEUROPATHIC PAIN IN LEGS AND PAIN IN BILATERAL HEELS. VSS T/O SHIFT. BLOOD SUGARS REMAIN IN THE 300'S, MEDICATED PER EMAR. WILL REPORT TO ONCOMING NURSE.
--- NOTE | 2021-09-11 20:00 | NUR ---
ASSUMED CARE OF PT AT 1915. REPORT RECEIVED. PT PRESENTS IN BED. ALERT AND MOSTLY ORIENTED. DOES DEMONSTRATE ISSUES WITH SHORT TERM MEMORY. DOES OCCASSIONALLY REACH UP TO SCRATCH AT SKIN AROUND HER PERMACATH SITE. HAS TEGRADERM PULLED BACK AT SITE. DID CALL DR EASLEY REQUESTING HYDROCORTISON 1 PERCENT TO APPLY TO SKIN SECONDARY TO RASH. ORDER RECEIVED. WILL REVIEW CHART AND PLAN OF CARE FOR THIS PT.
--- NOTE | 2021-09-11 22:13 | NUR ---
PT HAS CALLED SEVERAL TIMES TO ASK FOR MORE FOOD TO EAT. DID LIMIT FOODS TO LOW CARB SECONDARY TO 367 BLOOD GLUCOSE. DID ADMINISTER INSULIN TO LEFT THIGH PER ORDERS. PT ABLE TO TAKE PO MEDS THIS NIGHT BUT DOES NEEDED TO BE PROMPTED TO STAY AWAKE FOR SAFE SWALLOW. PT MOVES HERSELF ABOUT IN BED ON HER OWN. WILL CONTINUE TO MONITOR.
--- NOTE | 2021-09-12 05:07 | NUR ---
PT HAS BEEN ABLE TO TURN HERSELF AD ANDERS IN BED. HAS WORN HER CPAP FOR MOST OF THE NIGHT. AT TIMES WILL PULL OFF MASK. PT ABLE TO MAKE HER NEEDS KNOWN. PT STATES THAT HER SKIN AROUND HER PERMACATH IS FEELING MUCH BETTER AND NOT ITCHY. WILL CONTINUE TO MONITOR PT, AND WILL REPORT OFF TO ONCOMING RN.
[2021-09-12 05:22] LABS: Hematocrit 29.9 % (33.0-51.0); Hemoglobin 9.5 g/dL (11.5-16.0)
[2021-09-12 05:40] LABS: Albumin, Blood 2.7 g/dL (3.4-5.0); Anion Gap 12 mmol/L (6-16); Blood Urea Nitrogen 62 mg/dL (8-24); Bun/Creatinine Ratio 14.7 (12.0-20.0); CO2, Blood 25 mmol/L (21-32); Calcium, Blood 9.5 mg/dL (8.5-10.1); Chloride, Blood 102 mmol/L (98-108); Creatinine, Blood 4.21 mg/dL (0.40-1.00); Glomerular Filtration Rate 13 (60-); Glucose, Blood 256 mg/dL (70-99); Magnesium, Blood 2.3 mg/dL (1.6-2.4); Phosphorus, Blood 6.4 mg/dL (2.5-4.9); Potassium, Blood 4.3 mmol/L (3.5-5.5); Sodium, Blood 139 mmol/L (136-145)
--- NOTE | 2021-09-12 12:19 | NUR ---
DIALYSIS DURING TX WHILE THE PCT AND I WERE TAKING ANOTHER PT OFF, THIS PT STARTED REMOVING HER CATH DRESSING. I CAUGHT AND STOPPED HER. HAD TO REPLACE THE DRESSING WITH ADDED DRESSINGS ON TOP. TOLD HER THAT AN INFECTION AND PULLING IT OUT WOULD BE VERY PAINFUL.
--- NOTE | 2021-09-12 12:35 | NUR ---
REASSESSMENT PT BACK FROM DIALYSIS. REMAINS ALERT, ORIENTED TO PERSON AND PLACE. ABLE TO SAY IT ISJUNE BUT UNABLE TO COME UP WITH THE YEAR AND HAS VERY DELAYED RESPONSE WHEN TRYING TO THINK OF THE MONTH. LUNGS ARE CLEAR, RA. INCONTINENT VOIDS IN ATTENDS. TYLENOL GIVEN FOR BACK AND LEG PAIN THIS MORNING. CONTINUING TO MONITOR.
--- NOTE | 2021-09-12 16:46 | NUR ---
CARE CONFERENCE: Met with pt's mom Dr. Darrius Cox, [place] UNEMPL[employer]MENT INSURANCE HEARING OFFICER, Nima LINDSAY to discuss discharge plan. Pt's mom states she would like pt to return home with her when she is well enough. Barriers were discussed, such as no dialysis chair available in the community at this time. Pt would need to tolerate sitting in chair for 3 hours at a time in order to return to out hospice. This information was not welcome by pt's mom, who states she will be "Having a talk with Deng". She continued to make statements about wanting her daughter to live, at any and all costs to herself and her family including moving out of state if that's what it took to get a dialysis chair. We also discussed blood sugars, which remain out of control occasionally. It was brought up by pt's mom that her son, pt's brother had brought an entire pizza for pt to eat, and when she did, she ended up back in ICU on an insulin drip. Dr. Rizo request we create a sign for her room stating NO OUTSIDE FOODS. It has been brought up by Dr. Guillen and reinforced multiple times by Dr. Rizo that pt requires insulin injections in her thighs and NOT into her abdomen as it isn't working properly when given in her abdomen. Will continue meeting weekly to continue discuss discharge plan and barriers.
--- NOTE | 2021-09-12 17:25 | NUR ---
SHIFT SUMMARY PT HAD DIALYSIS THIS MORNING AND THEN HAS BEEN RESTING INB ED SINCE. SHE DID GET UP TO THE EOB AND STAND WITH THE WALKER ON THE STOOL TWICE, ONCE WITH NURSING STAFF AND THEN AGAIN WITH OT. SHE REMAINS ALERT AND ORIENTED, BUT STILL HAS MOMENTS OF CONFUSION. SHE DOESN'T RETAIN THAT SHE HAS BEEN IN THE HOSPITAL FOR ALMOST 2 MONTHS DESPITE BEING TOLD THAT SEVERAL TIMES TODAY. SHE GETS CONFUSED ABOUT PEOPLE WALKING AROUND OUTSIDE THE ROOM. HER MOTHER VISITED TODAY AND TALKED WITH PALLIATIVE CARE. SHE WANTS TO CONTINUE EVERYTHING AND PT VOICED THE SAME WHEN HER MOM WAS IN THE ROOM. LUNGS REMAIN CLEAR, RA, BP STABLE, EATING WELL. BLOOD SUGARS CONTROLLED TODAY DESPITE PT'S FREUENT SNACKS IN BETWEEN MEALS. INCONTINENT OF URINE, BUT PT IS ABLE TO HELP WITH TURNS. CONTINUING TO MONITOR.
--- NOTE | 2021-09-12 20:00 | NUR ---
ASSUMED CARE OF PT AT 1915. REPORT RECEIVED. PT PRESENTS IN BED. ALERT AND ORIENTED. PLEASANT AND COOPERATIVE WITH CARE AND ASSESSMENT. PT IN NO DISTRESS. STATES THAT THERAPY TODAY MADE HER LEGS SORE. WILL REVIEW CHART AND PLAN OF CARE FOR THIS PT.
--- NOTE | 2021-09-13 02:16 | NUR ---
PT SLEEPING. WEARING CPAP. NO DISTRESS TO NOTE. WILL CONTINUE TO MONITOR.
[2021-09-13 03:41] LABS: Hematocrit 32.7 % (33.0-51.0); Hemoglobin 10.4 g/dL (11.5-16.0)
[2021-09-13 03:58] LABS: Albumin, Blood 2.5 g/dL (3.4-5.0); Anion Gap 10 mmol/L (6-16); Blood Urea Nitrogen 51 mg/dL (8-24); Bun/Creatinine Ratio 14.4 (12.0-20.0); CO2, Blood 29 mmol/L (21-32); Calcium, Blood 9.2 mg/dL (8.5-10.1); Chloride, Blood 101 mmol/L (98-108); Creatinine, Blood 3.55 mg/dL (0.40-1.00); Glomerular Filtration Rate 15 (60-); Glucose, Blood 182 mg/dL (70-99); Phosphorus, Blood 4.3 mg/dL (2.5-4.9); Potassium, Blood 4.6 mmol/L (3.5-5.5); Sodium, Blood 140 mmol/L (136-145)
--- NOTE | 2021-09-13 04:55 | NUR ---
PT HAS WORN HER CPAP THROUGHOUT THE NIGHT. PT HAS TAKEN ALL THE DRESSING AND BUILD UP OFF HER PERMACATH SITE. AREA CLEANSED WITH CHLORAHEXADINE, AND HYDROCORTISONE APPLIED TO REDDENED SKIN. TELF DRESSING APPLIED AND WINDOW DRESSING SECURED WITH MESH TAPE. PT DOES ATTEMPT TO REACH UP TO PERMACATH THROUTHOUT THE DRESSING CHANGE. PT NEEDS TO BE REDIRECTED. HAS BEEN ABLE TO MOVE ABOUT BED ON HER OWN. WILL CONTINUE TO MONITOR PT, AND WILL REPORT OFF TO ONCOMING RN.
--- NOTE | 2021-09-13 09:29 | NUR ---
ASSUMED CARE OF PT, REPORT RCV'D FROM KRISTI ACEVEDO. PT ALERT AND ORIENTED, PLEASANT, COOPERATIVE WITH CARE AND VERY CONVERSIVE. PT CONTINUES TO REPORT NEUROPATHIC PAIN BILATERAL LOWER LEGS. GOOD APPETITE, ASSISTS WITH CARE. VSS AT THIS TIME. SEE FULL SHIFT ASSESSMENT.
--- NOTE | 2021-09-13 18:21 | NUR ---
SHIFT SUMMARY NO ACUTE CHANGES THIS SHIFT. PT UP TO CHAIR WITH ASSISTANCE OF OT USING WALKER AND GAIT BELT. PT SITTING UP IN CHAIR TOLERATING WELL SINCE 1100 AM. PT PARTICIPATING WITH PT/OT WITH ENCOURAGEMENT. PT MOTIVATED TO REGAIN STRENGTH AND GET BACK HOME TO HER DAUGHTER. PT HAS GOOD APPETITE. BLOOD SUGAR 101 THIS EVENING. VSS T/O SHIFT. WILL REPORT TO ONCOMING NURSE.
--- NOTE | 2021-09-13 21:30 | NUR ---
PT BACK IN BED AT [facility]. 2 ASSIST WITH FWW AND GAITBELT. TOLERATED FAIRLY. SHE WAS ABLE TO STAND AND TAKE STEPS FOWARD BUT NOT BACK AND REPORTED LEG PAIN.
--- NOTE | 2021-09-13 22:09 | NUR ---
CALLED DR SNYDER CALLED DR REGARDING PT REPORTING PAIN 10/10 IN LEGS. STS THAT LEGS ARE "BROKEN AND CAN'T MOVE THEM." SHE IS MOVING THEM AROUND AND KICKING UP IN THE AIR. DR SNYDER HAVE ORDER OF ONE TIME DOSE OF 25 MCG OF IV FENT. DR AWARE OF PT HAVING DIALYSIS TOMORROW. ALSO REPORTED TO DR THAT PT'S BLOOD SUGAR IS 393 AND PT WAS COVERED WITH SCHEDUALED INSULIN MEDS. ORDER TO CONTINUE TO MONITOR PT WHEN SCHEDUALED.
--- NOTE | 2021-09-13 22:30 | NUR ---
FOUND DIALYSIS PORT BANDAGES OFF. LOOKED LIKE PT HAD BEEN PULLING OR SCRATCHING SOME OF THE TAPE WAS STILL ON CATHETER WAS EXPOSED. CLEANED AND PLACED CHG TEGADERM AND BANDAGE OVER WITH TAPE SO THAT PT DOES NOT PULL ON AGAIN.
[2021-09-14 03:37] LABS: Hematocrit 31.9 % (33.0-51.0); Hemoglobin 10.1 g/dL (11.5-16.0)
[2021-09-14 03:54] LABS: Albumin, Blood 2.6 g/dL (3.4-5.0); Anion Gap 11 mmol/L (6-16); Blood Urea Nitrogen 73 mg/dL (8-24); Bun/Creatinine Ratio 15.9 (12.0-20.0); CO2, Blood 27 mmol/L (21-32); Calcium, Blood 9.6 mg/dL (8.5-10.1); Chloride, Blood 100 mmol/L (98-108); Creatinine, Blood 4.59 mg/dL (0.40-1.00); Glomerular Filtration Rate 11 (60-); Glucose, Blood 124 mg/dL (70-99); Magnesium, Blood 2.1 mg/dL (1.6-2.4); Potassium, Blood 4.7 mmol/L (3.5-5.5); Sodium, Blood 138 mmol/L (136-145)
--- NOTE | 2021-09-14 06:03 | NUR ---
SHIFT SUMMARY PT IS ALERT WITH SOME CONFUSION AT TIMES. STS THAT SHE DOES NOT KNOW HER AND IS FORGETFUL OF OTHER THINGS DUE TO A PREVIOUS STROKE. VITALS HAVE BEEN STABLE AND IS ON ROOM AIR. REFUSED WEARING CPAP AT NIGHT BECAUSE SHE COULD NOT BREATH WITH MASK. PT DENIES CHEST PAIN AND SOB. PT REPORTS PAIN 10/10 IN LEGS AND HAS MOANED AND CRIED OUT T/O THE NIGHT MANY TIMES SHE IS SLEEPING WHEN CRYING OUT. EVENING BLOOD SUGAR WAS ELEVATED AT 393 AT 0230 IT WAS 128. PT STAYED IN BED FROM 1100 AND TO 2115 IN THE EVENING AND WAS EXTREMELY TIRED. SHE WAS A 2 ASSIST WITH GAIT BELT AND FWW AND TOLERATED POORLY. CALL LIGHT IS WITHIN REACH.
--- NOTE | 2021-09-14 08:43 | NUR ---
CARE OF PT ASSUMED AT 0700. PT AWAKE AND ALERT, BOOSTED UP IN BED. BS 85, CARBS COVERED FOR BREAKFAST. DR CHATTERJEE AND DR CASTANEDA IN TO SEE PT THIS AM. PT TO HAVE HD TODAY AT 0900. PLANS THEN TO HAVE PT OOB TO CHAIR AND WORK W PT.
--- NOTE | 2021-09-14 09:12 | NUR ---
PT SCRATCHED PART OF HD OFF, DRSG REPLACED. PT GIVEN BEDBATH. PT VERY DROWSY AFTER BREAKFAST, BS CHECKED; 143. PT REQUESTED CHEESE; GIVEN. PT TRANSFERED DOWN TO DIALYSIS ROOM.
--- NOTE | 2021-09-14 13:32 | NUR ---
PT TO HD AT 0900, BACK AT 1100. BS 102; DR CHATTERJEE CALLED AND NOTIFIED. CARB COUNT CHANGED TO 1UNIT PER 10GM OF CARBS. PT ATE 100% OF MEAL AND GIVEN 8 UNITS COVERAGE. TYLENOL GIVEN FOR FOOT PAIN.
--- NOTE | 2021-09-14 14:05 | NUR ---
2 PERSON PIVOT TO CHAIR WITH GAIT BELT AND WALKER. PT UNABLE TO BEAR OWN WEIGHT SAFELY. ABLE TO STAND W 2 PERSON ASSIST FOR ONLY SECONDS. WOUND CARE COMPLETE. IODINE TO HEELS AND RIGHT CALF, NEW DRSG'S PLACED.
--- NOTE | 2021-09-14 16:32 | NUR ---
theraputic time with pt. brought volunteer to spend time with her and gave her some art therapy. difficult conversation due to confussion and wandering of thought. She is fixated on getting out of hopital and finding a new place to live. Will see if at next team review if brother or family are available or alf can tke her that has more medical resources for her genetic and endocrine needs. Due to her frailty pt high risk for sudden event. Will try agin to reenforce with mother that she is aging and having escalating complex multisystem events. Will discuss CPR only and try to outline a changing plan for her future that moves to hospice when not tolerating dialysis or further neurological decline. Will contact [employer] chapter in [place] and seek support for the patients mother, patient and her family. Chapter in [place] contact is Yoly Hull [email or web address]. Will review with social director.
--- NOTE | 2021-09-14 18:29 | NUR ---
PT 2 PERSON PIVOT TO BED. PT CRYING C/O 10/[address]EL[address] CHATTERJEE CALLED, FENTANYL 12.5MCG ORDERED X1.
--- NOTE | 2021-09-14 19:30 | NUR ---
ASSUMPTION OF CARE PT IS ALERT AND ORIENTED X 4 BUT CONVERSATION IS CONFUSED. SHE IS IN NO DISTRESS, ON ROOM AIR. SHE HAS ATTENDS IN PLACE.
[2021-09-15 03:38] LABS: Hemoglobin 9.4 g/dL (11.5-16.0)
[2021-09-15 03:57] LABS: Albumin, Blood 2.4 g/dL (3.4-5.0); Anion Gap 11 mmol/L (6-16); Blood Urea Nitrogen 67 mg/dL (8-24); CO2, Blood 26 mmol/L (21-32); Calcium, Blood 9.1 mg/dL (8.5-10.1); Chloride, Blood 98 mmol/L (98-108); Creatinine, Blood 3.93 mg/dL (0.40-1.00); Glomerular Filtration Rate 14 (60-); Glucose, Blood 405 mg/dL (70-99); Magnesium, Blood 2.1 mg/dL (1.6-2.4); Phosphorus, Blood 5.7 mg/dL (2.5-4.9); Potassium, Blood 5.2 mmol/L (3.5-5.5); Sodium, Blood 135 mmol/L (136-145)
--- NOTE | 2021-09-15 07:30 | NUR ---
AM NOTE.... ASSUMED CARE OF PT AT 0700 THE PT IS A&Ox3 WITH CONFUSION AT TIMES. THE PT IS TO HAVE DIALYSIS TODAY. PROTECTIVE DRESSING IS NOTED OVER THE THE DIALYSIS CATH, THE PT IS IN RESTRAINTS TO TRY AND HELP PREVENT HER PULLING OUT THE DIALYSIS CATH. THE PT HAS BEEN EDUCATED ON THE IMPORTANCE OF NOT TOUCHING THE CATH AND LEAVING IT ALONE THE PT VERBALIZED HER UNDERSTANDING. THE PT IS HYPERTENISVE AT THIS TIME. WILL CONTINUE TO MONITOR.
--- NOTE | 2021-09-15 17:40 | NUR ---
SHIFT SUMMARY.... NO ACUTE NEGATIVE CHANGES NOTED THIS SHIFT. THE PT HAD DIALYSIS TODAY. THE PT WAS UP IN THE RECLINER CHAIR FROM APROX 1200 TO 1600. SHE HAS EATEN 100% OF HER MEALS AND AFTER EATING HER MEALS SHE ASKS FOR MORE SNACKS LIKE CHEESE AND CRACKERS. THE PT WAS GIVEN SOME CHEESE AT THIS TIME. CALL LIGHT IN REACH WILL CONTINUE TO MONITOR UNTIL REPORT IS GIVEN TO ONCOMING RN.
[2021-09-16 03:30] LABS: Hematocrit 33.8 % (33.0-51.0); Hemoglobin 10.5 g/dL (11.5-16.0)
[2021-09-16 03:31] LABS: Albumin, Blood 2.6 g/dL (3.4-5.0); Anion Gap 9 mmol/L (6-16); Blood Urea Nitrogen 52 mg/dL (8-24); CO2, Blood 31 mmol/L (21-32); Calcium, Blood 9.8 mg/dL (8.5-10.1); Chloride, Blood 100 mmol/L (98-108); Creatinine, Blood 3.25 mg/dL (0.40-1.00); Glomerular Filtration Rate 17 (60-); Glucose, Blood 195 mg/dL (70-99); Magnesium, Blood 2.3 mg/dL (1.6-2.4); Phosphorus, Blood 6.1 mg/dL (2.5-4.9); Potassium, Blood 4.4 mmol/L (3.5-5.5); Sodium, Blood 140 mmol/L (136-145)
--- NOTE | 2021-09-16 05:37 | NUR ---
SHIFT SUMMARY RT [facility] CATHETER DRESSING CHANGED AT BEGINNING OF SHIFT D/T PATIENT PICKING DRESSING OFF INSERTION SITE. RT HAND IV WRAPPED IN ABD DRESSING AND NETTING OVERTOP TO STOP PATIENT FROM REACHING IT AND REMOVING IV. AT OOO5 PATIENT REQUIRED SOFT WRIST BILATERAL RESTRAINTS TO BE REAPPLIED. PATIENT WOULD NOT USE CALL LIGHT TO ALERT STAFF TO NEEDS-YELLED AND SHOUTED "NURSE" REPEATEDLY UNTIL STAFF ANSWERED YELLING. UPON CHECKING ON PATIENT, SHE WOULD NOT REMEMBER WHAT SHE WAS WANTING. MULTIPLE TIMES PATIENT BECAME VERY CONFUSED-ATTEMPTED TO PUT FINGERS INTO TABLE FAN, ASKED STAFF TO MOVE BUT THEN ASKED FOR HELP IMMEDIATELY AFTER, ASKED TO DRIVE TO THE OTHER BUILDING BY THE [employer], ETC. PATIENT WAS TEARFUL RANDOMLY T/O SHIFT BUT COULD NOT VERBALIZE WHY. IN THE MIDDLE OF SHIFT PATIENT BEGAN HAVING PERIODS OF APNEA. UPON CHECKING SPO2 PATIENT WAS HIGH 60'S-LOW 70'S AT TIMES WITH RESOLVE TO LOW 90'S. CPAP PLACED ON PATIENT WITH 4LPM BLEED IN. SPO2 NOW REMAINS AT 100% WHILE SLEEPING. PATIENT IS STILL SOMNOLENT AND DIFFICULT TO AROUSE FROM SLEEP. CBG GREATER THAN 150. NO OTHER CHANGES DURING SHIFT.
--- NOTE | 2021-09-16 09:45 | NUR ---
0700--ASSUMED CARE PATIENT WAS RESTING TILL 0730 WHEN BREAKFAST WAS DELIVERED AND SHE HAD TO BE COVERED FOR HER GLUCOSE OF 210. SHE DID SOME CRYING BUT RECOVERED AND SAT UP AND ATE BREAKFAST. SHE GOT 5 UNIT OF INSULIN COVERAGE FOR HER CARB COUNT WITH BREAKFAST. SHE IS ALERT TO SELF, SITUATION, AND MOMENT BY MOMENT. HER DIALYSIS PORT IS STILL IN PLACE TO RIGHT CHEST WALL AND DRESSING INPLACE. IV SL TO LEFT HAND, SHE IS INCONTINENT WITH URINE AND BRIEF WAS CHANGED. WILL CONTINUE TO MONITOR PATIENTS VS AND GLUCOSE CLOSELY. DR CASTANEDA CAME IN AND STATED DIALYSIS TOMORROW.
--- NOTE | 2021-09-16 12:09 | NUR ---
ASSUMED CARE: REPORT RECEIVED FROM JENNIFFER ALVARENGA RN. ASSUMED CARE OF THIS PT AT APPROX 1200. THE PT IS MEDICAL NO TELE STATUS, CURRENTLY SITTING UP IN BED EATING LUNCH, VSS.
--- NOTE | 2021-09-16 18:50 | NUR ---
SHIFT SUMMARY: THE PT REMAINS INTERMITTENTLY CONFUSED & REQUIRING REORIENTATION AT TIMES. BILAT SOFT WRIST RESTRAINTS AGAIN IN PLACE AFTER THE PT HAS PULLED OFF PERMACATH DRESSINGS x3 & PULLED ON PERMACATH LINE SLIGHTLY WELL. DR JIMÉNEZ HAS BEEN MADE AWARE OF THIS & CXR ORDERED THIS EVENING TO MAKE SURE THAT PERMACATH IS STILL PATENT FOR DIALYSIS USE TOMORROW AM. PT RA W/ O2 SATS > 92%. NO TELE MONITOR IN PLACE. TOLERATING PO INTAKE WELL, NO GI COMPLAINTS, BM x1. INCONTINENT OF BOWEL & BLADDER, MULTIPLE URINARY VOIDS TODAY. SKIN OVERALL FRAGILE, ECCHYMOTIC. Q2H REPOSITIONING TO MAINTAIN SKIN INTEGRITY. WILL CONTINUE TO MONITOR & REPORT OFF TO ONCOMING RN.
[2021-09-17 03:32] LABS: Hematocrit 31.9 % (33.0-51.0); Hemoglobin 9.8 g/dL (11.5-16.0)
[2021-09-17 03:42] LABS: Albumin, Blood 2.6 g/dL (3.4-5.0); Anion Gap 13 mmol/L (6-16); Blood Urea Nitrogen 68 mg/dL (8-24); Bun/Creatinine Ratio 14.9 (12.0-20.0); CO2, Blood 25 mmol/L (21-32); Calcium, Blood 9.9 mg/dL (8.5-10.1); Chloride, Blood 103 mmol/L (98-108); Creatinine, Blood 4.56 mg/dL (0.40-1.00); Glomerular Filtration Rate 11 (60-); Glucose, Blood 309 mg/dL (70-99); Magnesium, Blood 2.5 mg/dL (1.6-2.4); Phosphorus, Blood 7.2 mg/dL (2.5-4.9); Potassium, Blood 5.3 mmol/L (3.5-5.5); Sodium, Blood 141 mmol/L (136-145)
--- NOTE | 2021-09-17 06:23 | NUR ---
PT. DID WELL OVERNIGHT. RESTRAINTS ARE STILL IN PLACE BECAUSE PATIENT CONTINUES TO PICK AT PERMCATH DRESSING AND SCRATCHING THE SKIN UNDERNEATH IT. PT. SLEPT WELL OVERNIGHT BUT WAS HYPERTENSIVE INTO THE 160S, PT. HAS PRN MEDS FOR HTN BUT DOES NOT HAVE IV ACCESS BECAUSE SHE CONTINUES TO PULL THEM OUT, WILL TALK TO DAY TEAM ABOUT PO MEDS FOR HTN. PT. TOLERATED BIPAP ALL NIGHT AND IS NOW RESTING COMFORTABLY ON ROOM AIR. DIALYSIS PLANNED FOR TODAY.
--- NOTE | 2021-09-17 08:30 | NUR ---
ASSUMED CARE / DR JIMÉNEZ: REPORT RECEIVED FROM BHARAT Ocampo RN. ASSUMED CARE OF THIS PT AT APPROX 0700. ON ASSESSMENT, THE PT AWAKENS EASILY & IS ORIENTED TO SELF, FOLLOWING DIRECTIONS & PLACE. SHE IS FORGETFUL OF SPECIFIC STAFF MEMBERS NAMES & REQUIRES SOME REDIRECTION REGARDING ROUTINE CARE. BILAT SOFT WRIST RESTRAINTS IN PLACE, REMOVED AT 0800 THE PT IS RESPONDING WELL TO REDIRECTION & NOT CURRENTLY PULLING AT VITAL LINES/ TUBES. LS ARE CLEAR T/O, PT ON RA W/ O2 SATS > 92%. NO TELE MONITOR IN PLACE, MEDICAL STATUS. SHE HAS NO GI COMPLAINTS, VOIDS URINE W/O DIFFICULTY. ATTENDS IN PLACE FOR INCONTINENCE OF BOTH BOWEL & BLADDER AT TIMES. SKIN CONDITION OVERALL FRAGILE, ECCHYMOTIC. PHOTO DOC IN CHART. Q2H REPOSITIONING TO MAINTAIN SKIN INTEGRITY. DR JIÉMNEZ AT BEDSIDE THIS AM TO EVAL PT. HE WOULD LIKE THE RESTRAINTS LEFT OFF LONG PT CONTINUES TO TOLERATE & DOES NOT PULL AT LINES. HE HAS ORDERED PRN ANTIHYPERTENSIVE TO BE GIVEN PO THE PT DOES NOT HAVE ANY IV ACCESS CURRENTLY. NO OTHER CHANGES AT THIS TIME. WILL CONTINUE TO MONITOR & UPDATE NEEDED.
[2021-09-17 10:05] LABS: Glucose, Blood 573 mg/dL (70-99)
--- NOTE | 2021-09-17 10:35 | NUR ---
DR CAMERON: PROVIDER HAS CALLED THIS AM REGARDING PT's "HI" GLUCOSE READING ON GLUCOMETER & SUBSEQUENT GLUCOSE READING OF 573 ON LABS. NOTIFIED HIM OF TREATING ELEVATED GLUCOSE LEVEL PER CURRENT ORDERS, HE WOULD LIKE CONTACTED IF THE PT's GLUCOSE LEVEL REMAINS ELEVATED AFTER DIALYSIS HAS BEEN COMPLETED. NO CHANGES AT THIS TIME.
--- NOTE | 2021-09-17 12:20 | NUR ---
DIALYSIS: PT OUT OF ROOM TO DIALYSIS UNIT AT APPROX 0930, BACK TO ICU02 AT APPROX 1220. SHE IS SLIGHTLY MORE CONFUSED AT THIS TIME, MOANING BUT NOT ANSWERING QUESTIONS. QUICKLY RESUMES SLEEPING. PER DIALYSIS TEAM, THE PT HAS PULLED OFF PERMACATH DRESSINGS x2 & CONTINUES TO FIDGET W/ OTHER LINES.
--- NOTE | 2021-09-17 18:20 | NUR ---
SHIFT SUMMARY: NO ACUTE CHANGES SINCE PRIOR UPDATES. PT REMAINS ORIENTED TO SELF, FOLLOWING DIRECTIONS & PLACE. SHE IS COOPERATIVE W/ CARE BUT OVERALL MORE FORGETFUL THIS AFTERNOON SINCE DIALYSIS. LS CLEAR, PT ON RA W/ O2 SATS > 92%. SHE WORE CPAP W/ 2L O2 BLEED-IN FOR APPROX 3 HRS THIS AFTERNOON WHILE SLEEPING AFTER DIALYSIS. NO TELE MONITOR, MEDICAL STATUS. PT HAS NO GI COMPLAINTS & TOLERATES PO INTAKE WELL. VOIDS URINE W/O DIFFICULTY, ATTENDS IN PLACE FOR OCCASIONAL INCONTINENCE OF BOWEL & BLADDER. SKIN OVERALL FRAGILE, WOUND PHOTO DOCUMENTATION IN CHART. Q2H REPOSITIONING TO MAINTAIN SKIN INTEGRITY. WILL CONTINUE TO MONITOR & REPORT OFF TO ONCOMING RN.
--- NOTE | 2021-09-18 08:14 | NUR ---
ASSUMED CARE REPORT FROM ALAINA BERRY AT 0700. PT RESTING IN BED. A&OX 2. REORIENTS EASILY TO DATE. NEEDS FREQUENT INSTRUCTIONS, NOT TO PULL AT DRESSINGS. COOPERATIVE c CARE. ABLE TO FEED SELF INDEPENDENTLY. MAEW. LUNGS CLEAR. HTN NOTED, MEDS GIVEN. CBG 190 THIS AM, LONG ACTING, SSC AND CARB COUNT TO BE GIVEN AFTER MEAL. ADMINISTERED TO THIGH PER ORDERS. NO PLAN FOR DIALYSIS THIS SHIFT. WILL CONTINUE TO MONITOR.
--- NOTE | 2021-09-18 10:56 | NUR ---
Spiritual Care Visit. Pt. is awake in bed and quickly welcomes my visit. Rapport is quickly re-established. Pt. displays evidence of optimism and motivation to do the PT and OT necessary to discharge. Pt. verbalizes the hope of discharge in the next day or two. Normalize the Pt. experience. Pt. displays evidence of trust. [place] for Pt. Pt. verbalized gratitude forthe spiritual care visit.
--- NOTE | 2021-09-18 16:37 | NUR ---
TRANFER TO PCU NO ACUTE CHANGES THIS SHIFT. PT UP TO CHAIR SINCE 1230. TRANSFERRED TO PCU 15 IN RECLINER. TOLERATED WELL. PT PULLED ON PERMACATH DRESSING MULTIPLE TIMES, CHANGED, ABLE TO REDIRECT FOR SHORT PERIODS OF TIME. REPORT TO ELEUTERIO BERRY. ALL BELONGINGS SENT c PT.
--- NOTE | 2021-09-18 17:55 | NUR ---
PT TRANSFERRED TO [facility] APROX 1630. PT AWAKER, ALERT, ORIENTED TO SELF AND SITUATION. PT HAS REPORTEDLY BEEN UP IN CHAIR SINCE 1230, AND REMAINS UP IN CHAIR AT THIS TIME. PERMACATH DRESSING REPLACED AND IV PLACED TO R FA FOR PROCEDURE TOMORROW. PT WILL BE NPO AFTER MIDNIGHT. WILL PASS THIS ALONG TO NOC SHIFT RN.
[2021-09-18 18:14] LABS: SARS-Cov-2 (COVID-19) PCR, MMC NEGATIVE (NEGATIVE)
[2021-09-19 04:07] LABS: Hematocrit 31.3 % (33.0-51.0); Hemoglobin 10.1 g/dL (11.5-16.0)
[2021-09-19 04:26] LABS: Albumin, Blood 2.6 g/dL (3.4-5.0); Anion Gap 7 mmol/L (6-16); Blood Urea Nitrogen 63 mg/dL (8-24); Bun/Creatinine Ratio 15.9 (12.0-20.0); CO2, Blood 30 mmol/L (21-32); Calcium, Blood 9.8 mg/dL (8.5-10.1); Chloride, Blood 103 mmol/L (98-108); Creatinine, Blood 3.96 mg/dL (0.40-1.00); Glomerular Filtration Rate 13 (60-); Glucose, Blood 117 mg/dL (70-99); Magnesium, Blood 2.4 mg/dL (1.6-2.4); Phosphorus, Blood 7.1 mg/dL (2.5-4.9); Potassium, Blood 5.1 mmol/L (3.5-5.5); Sodium, Blood 140 mmol/L (136-145)
--- NOTE | 2021-09-19 06:33 | NUR ---
Shift summary. Pt up in chair at beginning of shift, transferred to bed at approximately 1999. Pt still confused with very disorganized thought process/conversation. On room air, dialysis cath in place R/upper chest. IV access in R arm. VS stable throughout shift, see assessment for further details. Will continue to monitor and report off to dayshift RN.
--- NOTE | 2021-09-19 13:05 | NUR ---
REPORT CALLED TO ICU02 RN. ALL BELONGINGS SENT TO ICU02. JOURNEYMAN PATTERNMAKER INFORMED OF CHANGE.
--- NOTE | 2021-09-19 15:14 | NUR ---
Attempted to reach pt's mom Brooek to inform her of pt's return to ICU this afternoon, and to touch base in general.
--- NOTE | 2021-09-19 17:39 | NUR ---
DIALYSIS PT OFF TX 15 MIN EARLY TO RETURN TO ASSURANCE MANAGER. STILL NO PULSE IN FOOT.
--- NOTE | 2021-09-19 18:39 | NUR ---
SUMMARY Pt transferred to ICU after RLE angiogram due to TPA drip; with plans for pt to return to lab this afternoon. TPA and heparin infusing through arterial sheath; insertion site in L groin. On arrival to ICU, pt A&O x 4. Answers questions, follows commands, verbalizes needs. Pleasant and cooperative with care. SpO2 90% or greater RA. BP stable. Unable to doppler pulses BLE. Right foot alternating between blue and pale. Capillary refill approx 3 seconds. Per [facility] staff, this has been a consistent assessment for them as well. Dialysis started as soon as pt arrived to unit. Pt reported pain to RLE. Call placed to Dr Rizo. Fentanyl given. Also notified provider that pt was receiving AM medcations late. Discussed that pt would be NPO for majority of evening. Provider stated to given only 7 units of glargine instead of 14. No mealtime insulin given as pt was not on unit for breakfast or lunch. Dialysis ended early for pt to return to [facility] for second schedule portion of procedure. Pt is in [facility] right now; returning soon. Staff states that she will be PCU status.
[2021-09-19 20:12] LABS: Anti-Xa UFH, PHA Monitoring 1.42 IU/mL
[2021-09-19 22:29] LABS: Anti-Xa UFH, PHA Monitoring >1.50 IU/mL
[2021-09-20 03:44] LABS: Hematocrit 24.8 % (33.0-51.0); Hemoglobin 7.8 g/dL (11.5-16.0); Platelet Count 429 K/mm3 (150-400)
[2021-09-20 04:03] LABS: Albumin, Blood 2.3 g/dL (3.4-5.0); Anion Gap 9 mmol/L (6-16); Blood Urea Nitrogen 43 mg/dL (8-24); Bun/Creatinine Ratio 14.7 (12.0-20.0); CO2, Blood 31 mmol/L (21-32); Calcium, Blood 8.9 mg/dL (8.5-10.1); Chloride, Blood 99 mmol/L (98-108); Creatinine, Blood 2.92 mg/dL (0.40-1.00); Glomerular Filtration Rate 19 (60-); Glucose, Blood 141 mg/dL (70-99); Magnesium, Blood 2.1 mg/dL (1.6-2.4); Phosphorus, Blood 7.1 mg/dL (2.5-4.9); Potassium, Blood 4.1 mmol/L (3.5-5.5); Sodium, Blood 139 mmol/L (136-145)
--- NOTE | 2021-09-20 06:18 | NUR ---
SHIFT SUMMARY PATIENT SLEPT THROUGH MOST OF SHIFT. DIFFICULT TO AROUSE FROM SLEEP AND CONFUSED WHEN AWAKE. KNOWS WHERE SHE IS INTERMITTENTLY AND FOLLOWS COMMANDS, BUT THEN TALKS ABOUT A SISTER TO THE NURSE AND LEAVING DOWN THE HIGHWAY. WHEN FALLING ASLEEP SHE BEGINS TO PICK AT DRESSINGS AND SPO2 MONITOR-DRESSINGS REINFORCED WITH ABD PAD, TAPE, AND COBAN WHERE APPROPRIATE. PATIENT HAD NO URINE OUTPUT AND NO BM DURING SHIFT. BLE PEDAL PULSES BY DOPPLER ONLY, BUT EXTREMITIES ARE PINK, WARM, AND DRY. LT GROIN ACCESS SHOWED NO FURTHER BLEEDING OR OOZING DURING THE SHIFT. HEPARIN STARTED AND INF TO RT WRIST PIV. AT BEGINNING OF SHIFT BLOOD SUGAR WAS ELEVATED AT 415 AND INSULIN COVERAGE WAS INCONSISTENT DURING THE DAY D/T SILVICULTURE TEACHER PROCEDURES AND CLEAR LIQUID DIET. CALL MADE TO DR. SHERMAN WITH THIS INFORMATION-5 UNTIS HUMALOG ADMINISTERED THEN RECHECKED CBG 2 HOURS LATER FOR CBG OF 340. DR. SHERMAN UPDATED AND ORDERS GIVEN FOR SKIP BEDTIME HUMALOG, BUT ADMINISTER BEDTIME LANTUS-THEN FOLLOW NORMAL ORDERS.
--- NOTE | 2021-09-20 08:30 | NUR ---
Dr Rizo in to see patient. Provider states she can be medical floor status without telemetry.
[2021-09-20 09:12] LABS: HBSAG SCREEN Negative (Negative)
--- NOTE | 2021-09-20 10:48 | NUR ---
Spiritual Care Visit. Pt. is sitting up in a chair and welcomes my visit. Pt. has been in hospital for a long time. Re-estbalish rapport. Pt. is expecting to be moved to a medical floor. Pt. verbalized gratitude for the spiritual care visit.
--- NOTE | 2021-09-20 16:14 | NUR ---
Dr Rizo notified of high sugar. Provider states pt may not have snacks any more. Provider in to educate patient.
[2021-09-20 16:15] LABS: Hematocrit 24.1 % (33.0-51.0); Hemoglobin 7.4 g/dL (11.5-16.0)
--- NOTE | 2021-09-20 18:20 | NUR ---
SUMMARY Pt got up to shower this morning, approx 0800, and has been sitting up in a chair ever since. Patient worked with PT/OT today to practice standing and weightbearing. Pt has been on room air. Now medical floor status without telemetry. Pt did not receive dialysis today. Pt feeding self meals. Has been reporting pain to bilateral legs. Newly revascularized RLE is pink and warm. LLE is baseline pale appearance, equal in assessment to BUE. Left femoral artery access site has unchanged amount of drainage under dressing. No hematoma. No bruising.
--- NOTE | 2021-09-20 19:30 | NUR ---
ASSUMPTION OF CARE PT IS ALERT, SITTING UP IN CHAIR. SHE HAS NO COMPLAINTS OF PAIN AND NO S/S OF ACUTE DISTRESS AT TIME OF ASSUMPTION OF CARE. SHE IS DROWSY AND REQUESTS TO BE PUT BACK INTO BED. PRIOR NURSE STATES SHE HAS BEEN UP IN CHAIR FOR APPX 12 HOURS. WILL ASSIST PT BACK TO BED.
[2021-09-21 03:03] LABS: Hematocrit 19.3 % (33.0-51.0); Hemoglobin 6.2 g/dL (11.5-16.0)
[2021-09-21 03:21] LABS: Magnesium, Blood 2.2 mg/dL (1.6-2.4)
--- NOTE | 2021-09-21 03:39 | NUR ---
PT PULLED OUT HER IV AND REMOVED HER PERM CATH DRESSING. IV WAS REPLACED AND PERM CATH DRESSING WAS REPLACED. PT CONTINUED TO TRY TO PULL AT PERM CATH DESPITE REPEATED TEACHING AND REDIRECTION. ORDERS FOR SWB GIVEN.
[2021-09-21 03:43] LABS: Albumin, Blood 2.5 g/dL (3.4-5.0); Anion Gap 12 mmol/L (6-16); Blood Urea Nitrogen 57 mg/dL (8-24); Bun/Creatinine Ratio 13.6 (12.0-20.0); CO2, Blood 29 mmol/L (21-32); Chloride, Blood 95 mmol/L (98-108); Creatinine, Blood 4.19 mg/dL (0.40-1.00); Glomerular Filtration Rate 13 (60-); Glucose, Blood 57 mg/dL (70-99); Phosphorus, Blood 9.1 mg/dL (2.5-4.9); Potassium, Blood 4.5 mmol/L (3.5-5.5); Sodium, Blood 136 mmol/L (136-145)
--- NOTE | 2021-09-21 04:00 | NUR ---
PT W/CRITICAL PHOS AND LOW H&H-CALLED AND SPOKE TO DR CASTANEDA. ORDERED 1 UNIT PRBC TO BE GIVEN W/DIALYSIS.
--- NOTE | 2021-09-21 05:48 | NUR ---
SHIFT BANDARY PT IS CONFUSED. 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 SHE IS VERY CHILD LIKE AND CRIES WHEN SHE DOESN'T GET HER WAY AND SHE DOESN'T SEEM TO UNDERSTAND THE CONSEQUENCES OF HER ACTIONS OR AT BEST IS SO IMPULSIVE SHE DISREGARDS THEM. SHE PULLED OUT HER IV AND IT WAS REPLACED AND SHE REMOVED THE DRESSING FROM HER PERM CATH. SHE WOULD HAVE REMOVED THEM AGAIN DESPITE REDIRECTION AND EDUCATION SO SWB HAD TO BE PLACED. HER BS AT 230 WAS 58 SO SHE RECEIVED PRN D5 PER MAR. BS WAS NORMAL AFTER ADMINISTRATION. SHE WAS ASYMPTOMATIC. HEPARIN GTT IS INFUSING AT 16U/24.3ML HR. SHE IS ON ROOM AIR, ALERT. VS HAVE BEEN WNL AND SHE HAS BEEN AFEBRILE.
--- NOTE | 2021-09-21 09:54 | NUR ---
ASSUMED CARE OF ALLAN AT 0700, PT HAS BEEN TALKING WITH STAFF NOT MAKING ANY SENSE. SHE TALKS ABOUT PEOPLE AND PLACES AND BUYING AND SELLING THINGS TO STAFF. SHE IS UNAWARE THAT SHE IS IN THE HOSPITAL. SHE WAS UNRESTRAINED TO EAT HER BREAKFAST, WHICH SHE DID WELL WITH. SHE WAS LIFTED TO THE RECLINER AND THEN TAKEN DOWN TO DIALYSIS. SHE IS ON HEPARIN GTT @ 16U/KG/HR IN LEFT WRIST. SITE INTACT.
--- NOTE | 2021-09-21 14:34 | NUR ---
ORDERS RECEIVED FROM TO STOP THE HEPARIN GTT AND TO START ORAL MEDICATIONS, THIS WAS STOPPED AT 1330. SHE CONTINUES TO HAVE PULSES PALPABLE BY DOPPLAR. SHE CONTINUES TO BE CONFUSED ABOUT STAFF AND HER WHEREABOUTS. CONTINUES TO SCRATCH AT HER DRESSINGS.
[2021-09-21 15:31] LABS: Hematocrit 18.9 % (33.0-51.0); Hemoglobin 6.3 g/dL (11.5-16.0)
--- NOTE | 2021-09-21 16:39 | NUR ---
SPOKE WITH AT 1530 TO GIVE RESULTS OF H/H. ORDERS RECEIVED TO GIVE ANOTHER UNIT OF RBC'S, RESTART HEPARIN GTT AND HOLD THE ELIQUIS TONIGHT. WHEN ENTERING THE ROOM TO RESTART THE HEPARIN, ALLAN WAS HOLDING HER SALINE LOCK IN HER HAND. IV RESTARTED IN LEFT WRIST AND ONE IN RIGHT WRIST SO TO BE ABLE TO GIVE BLOOD AND RUN HEPARIN GTT. PT STATES SHE DIDN'T MEAN TO, SHE THOUGHT IT WAS STICKING OUT. PRBC'S STARTED, PT TOLERATING WELL. SHE IS UNABLE TO STATE HER BIRTHDAY, IS SAYING SHE IS NEIGHBORS WITH STAFF SHE SEES OUTSIDE HER ROOM. SHE IS UNABLE TO TELL HER CORRECT AGE OR HER DAUGHTER'S BIRTHDAY. SHE DOES SAY HER IS IN INTERMEDIATE. FREQUENTLY REMINDED TO LEAVE HER DIALYSIS CATHETER ALONE, SHE PICKS AT IT.
[2021-09-21 18:01] LABS: Bun/Creatinine Ratio 13.5 (12.0-20.0); Calcium, Blood 8.3 mg/dL (8.5-10.1); Creatinine, Blood 2.37 mg/dL (0.40-1.00); Potassium, Blood 4.2 mmol/L (3.5-5.5)
--- NOTE | 2021-09-21 18:41 | NUR ---
ALLAN HAS BEEN ERRATIC IN HER THOUGHT PROCESSES ALL DAY. SHE HAS BEEN THINKING SHE IS OUT AND ABOUT AND THAT THE STAFF ARE ALL HER NEIGHBORS OR FRIENDS FROM HOME. SHE PULLED OUT ONE IV, HAD 2 RESTARTED. SHE WAS ON HEPARIN GTT, OFF HEPARIN GTT AND IT IS CURRENTLY ON STANDBY. SHE IS GETTING HER 3RD UNIT OF PRBC'S FOR THE DAY. HER REPEAT H/H AFTER THE UNIT GIVEN IN DIALYSIS WAS UNCHANGED. SHE IS TOLERATING THE TRANSFUSIONS WELL. SHE IS EATING, COMPLAINS OF LEG PAIN AND BACK PAIN, STATES IT IS NOT NEW ONSET. THE RIGHT HEEL IS PEELING AND SLOUGHING OFF UNDER THE DRESSING. THE LEFT LEG SHE STATES IS FEELING BETTER, WE ARE ABLE TO MOVE IT WITHOUT MUCH PAIN. THE RIGHT LEG IS PAINFUL AND SWOLLEN AND UNCOMFORTABLE. SHE IS HAS BEEN INCONTINENT OF A SMALL AMOUNT OF URINE. HEART RATE 90S, SBP 140. SHE HAS BEEN UNABLE TO RECALL HER BIRTHDAY, WHERE SHE IS, OR WHY SHE IS HERE, THE MONTH, YEAR OR DAY.
--- NOTE | 2021-09-21 18:51 | NUR ---
UPDATE FROM , PT TO BE MONITORED WITH Q3HR BLOOD SUGARS T/O THE NIGHT, HEPARIN TO REMAIN ON STANDBY T/O THE NIGHT. H/H AFTER BLOOD TRANSFUSED.
--- NOTE | 2021-09-21 19:15 | NUR ---
ASSUMED CARE OF PT. REPORT RECEIVED FROM KRISIT BALDWIN. PT IS CONFUSED, IMPULSIVE, FORGETS DIRECTIONS QUICKLY. SHE HAS BEEN PICKING AT HER DIALYSIS CATHETER DRESSING. WILL ATTEMPT REDIRECTION TO AVOID NECESSITY OF RESTRAINT.
--- NOTE | 2021-09-21 21:00 | NUR ---
PT IS PROVIDED COLORING SUPPLIES FOR DISTRACTION.
[2021-09-21 21:13] LABS: Hematocrit 25.6 % (33.0-51.0); Hemoglobin 8.4 g/dL (11.5-16.0)
--- NOTE | 2021-09-21 23:23 | NUR ---
DRESSINGS CHANGED AND PHOTOS REDONE
--- NOTE | 2021-09-22 03:02 | NUR ---
ASSUMED CARE OF PT AT 0300. REPORT RECEIVED FROM KRISTI SARAH
[2021-09-22 03:28] LABS: BASOPHILS ABSOLUTE AUTO 0.09 K/mm3 (0.00-0.23); BASOPHILS PERCENT AUTO 1 % (0-2); EOSINOPHILS ABSOLUTE AUTO 0.22 K/mm3 (0.00-0.68); EOSINOPHILS PERCENT AUTO 1 % (0-6); IMMATURE GRAN ABSOLUTE AUTO 0.14 K/mm3 (0.00-0.10); IMMATURE GRAN PERCENT AUTO 1 % (0-1); LYMPHOCYTES ABSOLUTE AUTO 1.14 K/mm3 (0.84-5.20); LYMPHOCYTES PERCENT AUTO 6 % (21-46); MONOCYTES ABSOLUTE AUTO 2.77 K/mm3 (0.16-1.47); MONOCYTES PERCENT AUTO 16 % (4-13); Mean Corpuscular HGB 30.9 pg (26.0-34.0); Mean Corpuscular HGB Conc 33.3 g/dL (31.5-36.5); Mean Corpuscular Volume 93 fL (80-100); Mean Platelet Volume 10.2 fL (9.1-12.4); NEUTROPHILS ABSOLUTE AUTO 13.34 K/mm3 (1.96-9.15); NEUTROPHILS PERCENT AUTO 76 % (41-73); Platelet Count 389 K/mm3 (150-400); RDW Coefficient Variation 17.6 % (11.7-14.2); RDW Standard Deviation 59.5 fL (35.1-46.3); Red Blood Cell Count 2.91 M/mm3 (3.80-5.20)
[2021-09-22 03:44] LABS: Bun/Creatinine Ratio 13.4 (12.0-20.0); Calcium, Blood 9.1 mg/dL (8.5-10.1); Creatinine, Blood 2.99 mg/dL (0.40-1.00); Potassium, Blood 4.1 mmol/L (3.5-5.5)
--- NOTE | 2021-09-22 06:48 | NUR ---
PT AWAKENS AND IS VERY CONFUSED. REFUSED TO TAKE HER AM PROTONIX. SEVERAL ATTEMPTS TO GET PT TO TAKE MED WAS UNSUCCESSFUL. PT IN NO APPARENT DISTRESS. PT TEARFUL. WILL CONTINUE TO MONITOR AND WILL REPORT OFF TO ONCOMING RN.
--- NOTE | 2021-09-22 14:05 | NUR ---
ALLAN HAS BEEN CONFUSED AGAIN TODAY. SHE HAS BEEN DISORIENTED AND UNABLE TO STATE HER BIRTHDAY, LOCATION, YEAR, MONTH, ETC. SHE HAS BEEN COMPLAINING OF PAIN IN THE LEGS, SHE WAS MEDICATED WITH TYLENOL. SHE WAS RE-STARTED ON THE HEPARIN GTT. SHE WAS COOPERATIVE AT LUNCH AND WAS ABLE TO FEED HERSELF AND ENCOURAGED TO SLEEP. SHE IS CURRENTLY NAPPING. SAW HER TODAY, IT WAS MADE AWARE TO HIM THAT SHE HAD THE CT W/ CONTRAST YESTERDAY AND HE WAS OKAY WITH HER NOT HAVING DIALYSIS TODAY.
[2021-09-22 16:09] LABS: Hematocrit 25.5 % (33.0-51.0); Hemoglobin 8.4 g/dL (11.5-16.0)
--- NOTE | 2021-09-22 16:36 | NUR ---
ALLAN WOKE UP FROM HER NAP, CONFUSED, STARTED TRYING TO PEEL OFF HER DRESSING ON THE RIGHT CHEST HEMODIALYSIS PORT. ENCOURAGED TO GO BACK TO SLEEP HER BODY NEEDS TO HEAL.
--- NOTE | 2021-09-22 20:54 | NUR ---
ASSUMED PT CARE AT 1915 PT AWAKE AND CONVERSING WITH STAFF. ALERT AND ORIENTED TO SELF AND SURROUNDINGS. CONFUSED AND FORGETFUL TO YEAR AND PLACE, WELL BIRTHDAY. L GROIN SITE HAS TEGADERM IN PLACE THAT IS CDI; NO HEMATOMA OR OOZING NOTED. RIGHT LEG DOES APPEAR MORE SWOLLEN THAN LEFT. PULSES OBTAINED VIA DOPPLER TO BILATERAL PEDAL SITES. PERMACATH TO RIGHT UPPER CHEST IS CHG TEGADERM IN PLACE. PT CONTINUES TO PICK AT SITE D/T ITCHING. AREA UNDER DRESSING DOES APPEAR EXCORIATED AND SENSITIVE TO THE ADHESIVE. THEREFORE, DR. CASTANEDA CALLED TO ASK IF SITE COULD BE LEFT HORTENSIA IN WHICH HE WAS OKAY WITH; ORDERS ENTERED. HELD LONG ACTING INSULIN D/T BLOOD SUGAR OF 118. LOOKED BACK ON TRENDS AND PT'S BLOOD SUGARS APPEARED TO BE IN THE 300-400'S WHEN SHE WAS GIVEN HER LONG ACTING; THEREFORE, MADE THE CLINICAL JUDGEMENT TO HOLD AND CONTINUE REASSESSING. PT HAS DRESSINGS INTACT TO LEGS SECONDARY TO VENOUS/DIABETIC WOUNDS; DRESSINGS WERE CHANGED TODAY. PER REPORT PT DIDN'T SLEEP MUCH TODAY. MELATONIN ADMINISTERED, BUT PT IS STILL AWAKE AND HAVING A DIFFICULT TIME SLEEPING. CALL LIGHT WITHIN REACH. SEE SHIFT ASSESSMENT FOR FURTHER DETAILS.
[2021-09-23 03:44] LABS: Hematocrit 28.2 % (33.0-51.0); Hemoglobin 9.1 g/dL (11.5-16.0)
[2021-09-23 04:00] LABS: Albumin, Blood 2.4 g/dL (3.4-5.0); Anion Gap 15 mmol/L (6-16); Blood Urea Nitrogen 55 mg/dL (8-24); Bun/Creatinine Ratio 14.8 (12.0-20.0); CO2, Blood 21 mmol/L (21-32); Chloride, Blood 99 mmol/L (98-108); Creatinine, Blood 3.72 mg/dL (0.40-1.00); Glomerular Filtration Rate 15 (60-); Glucose, Blood 260 mg/dL (70-99); Potassium, Blood 4.7 mmol/L (3.5-5.5); Sodium, Blood 135 mmol/L (136-145)
--- NOTE | 2021-09-23 06:11 | NUR ---
END OF SHIFT SUMMARY NO SIGNIFICANT CHANGES. PT SLEPT FOR A FEW HOURS. BLOOD SUGAR ELEVATED AT 339; CALLED FOR A ONE TIME DOSE OF LOW SLIDING SCALE COVERAGE AND GAVE MORNING DOSE OF LONG ACTING INSULIN EARLY PER DR. TERRY. PT HAD AN XLARGE BM THIS MORNING. REMAINS INCONTINENT OF BOTH BOWEL AND BLADDER. PT MORE ALERT AND CONVERSING WITH STAFF THIS MORNING. PERMACATH SITE REMAINS HORTENSIA AND PT HAS NOT MESSED WITH SITE SINCE THE DRESSING HAS BEEN REMOVED. FEBRILE THIS MORNING AT 100.0; HOWEVER, REMOVED LARGE, SOFT COMFORTER AND WILL REASSESS TEMP. PT STILL HAS ORDERS FOR MEDS CRUSHED IN APPLESAUCE; HOWEVER, PT IS SWALLOWING MEDS WHOLE WITH WATER WITH NO OVERT SIGNS OF ASPIRATION. PT STILL REMAINS CONFUSED AND NEEDS REDIRECTION AT TIMES. ANTI-FUNGAL POWDER APPLIED TO BILATEARL FEET D/T RED RASH. WILL CONTINUE TO MONITOR UNTIL REPORT IS HANDED OFF TO ONCOMING RN.
--- NOTE | 2021-09-23 09:46 | NUR ---
ASSUMED CARE AT 0700, SHE IS MOANING, CANNOT ARTICULATE WHAT SHE NEEDS/WANTS. SHE IS UNABLE TO RECOGNIZE STAFF, READ NAME TAGS, RECOGNIZE THE DOCTORS. SHE IS TRANSITIONED INTO THE RECLINER, SHE IS ABLE TO STAND AT THE BEDSIDE, SHE PANICS AND IS LIFTED TO THE RECLINER BY TWO STAFF. SHE CRIES. ABLE TO EAT HER BREAKFAST, CRIES AND MOANS. TAKEN TO DIALYSIS IN THE CHAIR.
--- NOTE | 2021-09-23 12:30 | NUR ---
DIALYSIS PT ARRIVED IN RECLINER FOR DIALYSIS TREATMENT. TOLERATED TX WELL. RETURNED TO PT ROOM.
--- NOTE | 2021-09-23 18:08 | NUR ---
ALLAN HAS DONE FAIRLY WELL TODAY. SHE HAS REMAINED UNRESTRAINED. SHE HAS LEFT HER IV'S AND HER DIALYSIS PORT INTACT. SHE HAS BEEN UP IN THE CHAIR FOR THE MAJORITY OF THE DAY. SHE WENT TO DIALYSIS IN THE CHAIR, WORKED WITH PT STANDING. ALSO STANDING TWICE WITH THE STAFF. SHE HAS GOOD COLOR AND CIRCULATION TO BOTH LEGS, CONTINUES TO CRY AND MOAN INTERMITTENTLY. SHE CONTINUES WITH EXPRESSIVE APHASIA, EVEN COMMENTING ON IT THIS EVENING. SHE ASKED DURING DINNER THAT WHEN SHE'S FINISHED SHE CAN "GO TO BED". SHE WAS INCONTINENT OF BOWEL AND BLADDER, CHANGED AND CLEANED. HAIR WASHED TODAY AND BED BATH GIVEN. SHE TALKS AT TIMES LIKE SHE UNDERSTANDS THE SITUATION BUT IT DOESN'T COME OUT EASILY, ie SHE SAYS THAT SHE HAS BEEN AT THAT PLACE FOR 3 MONTHS AND HER MOM IS READY FOR HER TO BE HOME. HER MOM'S HOUSE IS CLEAN. WHY DOESN'T THAT [facility] GIVE ME MY PILLS? SHE ALSO TRIES TO TELL ME WHAT TO "ORDER OUT" TO GET FOR DINNER AND THAT SHE WANTS TO "TIP THAT [facility]". OVERALL TODAY WAS BETTER THAN THE PREVIOUS 2 DAYS AND HER INCREASE IN STRENGTH AND ACTIVITY IS SHOWING. BLOOD SUGARS HAVE REMAINED UNDER CONTROL AC WITH CARB COUNT COVERAGE.
[2021-09-24 03:41] LABS: Hematocrit 27.9 % (33.0-51.0); Hemoglobin 8.9 g/dL (11.5-16.0)
[2021-09-24 03:47] LABS: Albumin, Blood 2.4 g/dL (3.4-5.0); Anion Gap 12 mmol/L (6-16); Blood Urea Nitrogen 43 mg/dL (8-24); Bun/Creatinine Ratio 14.8 (12.0-20.0); CO2, Blood 27 mmol/L (21-32); Calcium, Blood 9.4 mg/dL (8.5-10.1); Chloride, Blood 101 mmol/L (98-108); Glomerular Filtration Rate 20 (60-); Glucose, Blood 194 mg/dL (70-99); Phosphorus, Blood 4.7 mg/dL (2.5-4.9); Potassium, Blood 4.1 mmol/L (3.5-5.5); Sodium, Blood 140 mmol/L (136-145)
--- NOTE | 2021-09-24 06:37 | NUR ---
SHIFT SUMMARY: CONFUSED BUT COOPERATIVE TONIGHT, FOLLOWING DIRECTIONS AND ABLE TO MAKE NEEDS KNOWN. DOES NOT USE CALL LIGHT, TENDS TO CALL OUT. EMOTIONAL AND MOANING OFF AND ON, STATES SHE DOES NOT FEEL WELL BUT CAN NOT STATE WHAT IS WRONG. BLOOD SUGARS HAVE REMAINED ABOVE 140'S. VS WNL. SHE DID PULL OUT ONE IV IN HER SLEEP BUT HAS LEFT HER DIALYSIS CATH AND OTHER IV ALONE. SHE WORE HER CPAP FOR MOST OF THE NIGHT. SATS WHEN CHECKED WERE ABOVE 90%. INCONTIENT OF URINE. GOOD COLOR AND CIRCULATION NOTED TO BILATERAL LEGS. DRESSINGS TO HEELS HAVE REMAINED CDI. NO OTHER CHANGES TO REPORT THIS SHIFT. DR. CASTANEDA ALREADY BY TO SEE THE PATIENT, STATES SHE WILL HAVE DIALYSIS TODAY. CALL LIGHT IN REACH.
--- NOTE | 2021-09-24 09:54 | NUR ---
AM NOTE... ASSUMED CARE OF PT AT 0700 THE PT IS A&O TO SELF AND PLACE AT THIS TIME. THE PT IS FEBRILE WITH A TEMP OF 101.1 AT THIS TIME. THE PT'S BP IS HYPERTENSIVE, THE PT WAS MEDICATED PER EMAR. THE PT IS ON RA WITH O2 SATS >90% L/S CLEAR T/O. BT PRESENT AND HYPOACTIVE, ABD IS SOFT AND NONTENDER TO PALPATION. THE PT'S PEDAL PULSES FOUND WITH DOPPLER. THE PT GOT UP IN THE CHAIR AT 0800 FOR BREAKFAST. WILL CONTINUE TO MONITOR.
[2021-09-24 12:14] LABS: BASOPHILS ABSOLUTE AUTO 0.05 K/mm3 (0.00-0.23); BASOPHILS PERCENT AUTO 0 % (0-2); EOSINOPHILS ABSOLUTE AUTO 0.01 K/mm3 (0.00-0.68); EOSINOPHILS PERCENT AUTO 0 % (0-6); Hematocrit 24.6 % (33.0-51.0); Hemoglobin 8.1 g/dL (11.5-16.0); IMMATURE GRAN PERCENT AUTO 1 % (0-1); LYMPHOCYTES ABSOLUTE AUTO 0.64 K/mm3 (0.84-5.20); LYMPHOCYTES PERCENT AUTO 4 % (21-46); MONOCYTES ABSOLUTE AUTO 1.27 K/mm3 (0.16-1.47); MONOCYTES PERCENT AUTO 8 % (4-13); Mean Corpuscular HGB Conc 32.9 g/dL (31.5-36.5); Mean Corpuscular Volume 94 fL (80-100); Mean Platelet Volume 10.2 fL (9.1-12.4); NEUTROPHILS ABSOLUTE AUTO 13.82 K/mm3 (1.96-9.15); NEUTROPHILS PERCENT AUTO 87 % (41-73); Platelet Count 441 K/mm3 (150-400); RDW Standard Deviation 55.3 fL (35.1-46.3); Red Blood Cell Count 2.61 M/mm3 (3.80-5.20); White Blood Cell Count 15.89 K/mm3 (4.00-11.30)
--- NOTE | 2021-09-24 13:34 | NUR ---
PT UPDATE.... THE PT CONTINUES TO BE FEBRILE, SHE WAS MEDICATED WITH TYLENOL AT 1130 WHICH IMPROVED THE PT'S TEMP FROM 101.5 TO 100.9. THIS RN CHECKED ON THE PT AND HER FACE WAS PALE AND SHE WAS DIAPHORETIC, THE PT'S VS AT THIS TIME ARE 163/90, HR 103-109, RR 18-20 AND TEMP IS 101.4. THE PT IS C/O OF PAIN "ALL OVER AND IN MY LEGS." THE PT'S CBG WAS CHECKED AT THIS TIME WELL AND IT WAS 243. WILL CONTINUE TO MONITOR.
--- NOTE | 2021-09-24 18:02 | NUR ---
SHIFT SUMMARY.... NO ACUTE NEGATIVE CHANGES NOTED THIS SHIFT. THE PT HAS CONTINUED TO PULL AND SCRATCH AT HER DIALYSIS CATH AND SITE. THE AREA WAS MEDICATED PER EMAR WITH HYDROCORTISONE CREAM WHICH DID NOT SEEM TO HELP, PER HOSPITALIST A DRESSING WAS PLACED IN AN ATTEMPT TO PROTECT THE SITE TO PREVENT INFECTION AND FURTHER DAMAGE TO THE SITE/AREA. THE PT WORKED WITH PT/OT TODAY AND HAS BEEN UP IN THE CHAIR SINCE 0800. THE PT HAS BEEN SHIFTING HERSELF WITH ENCOURAGMENT FROM STAFF EVERY 2 HRS WHILE IN THE CHAIR. THE PT'S LAST TEMP WAS 100.0 SHE WAS MEDICATED WITH TYLENOL PER EMAR WITH SOME RESULT. BLOOD CULTURES AND A CHEST XRAY WERE OBTAINED PER ORDERS. WILL CONTINUE TO MONITOR UNTIL REPORT IS GIVEN TO ONCOMING RN.
--- NOTE | 2021-09-24 20:00 | NUR ---
ASSUMED CARE OF PT AT 1900. REPORT RECEIVED FROM KRISTI ALDANA. PT IS RESTING IN BED, SHE'S BEEN FEBRILE ALL DAY. BLD CX PENDING AND UA ORDERED. SHE IS ORIENTED TO HER SELF, FAMILY AND SURROUNDINGS, BUT FORGETFUL AND IMPULSIVE. DIALYSIS CATH HAS GAUZE DRESSING IN PLACE. WILL COLLECT UA VIA IN AND OUT CATH.
--- NOTE | 2021-09-24 22:14 | NUR ---
DR WINTERS IS CALLED REGARDING PT'S UA. RESULTS REPORTED, PT IS AFEBRILE AT THIS TIME. NO NEW ORDERS RECEIVED. URINE CX AND BLD CX PENDING.
--- NOTE | 2021-09-25 06:40 | NUR ---
PT SLEEPS WELL OVERNIGHT WITH CPAP MASK ON. VSS. HEEL DRESSINGS CHANGED. NO OTHER SIGNIFICANT CHANGES. WILL CONTINUE TO MONITOR AND REPORT TO ONCOMING SHIFT.
[2021-09-25 07:51] LABS: Albumin, Blood 2.2 g/dL (3.4-5.0); Albumin/Globulin Ratio 0.5 (0.8-1.8); Bilirubin, Total 0.4 mg/dL (0.1-1.0); Bun/Creatinine Ratio 18.6 (12.0-20.0); Calcium, Blood 9.2 mg/dL (8.5-10.1); Creatinine, Blood 3.82 mg/dL (0.40-1.00); Globulin, Blood 4.4 g/dL (2.2-4.0); Potassium, Blood 5.1 mmol/L (3.5-5.5); Total Protein, Blood 6.6 g/dL (6.4-8.2)
[2021-09-25 08:22] LABS: BASOPHILS ABSOLUTE AUTO 0.08 K/mm3 (0.00-0.23); BASOPHILS PERCENT AUTO 1 % (0-2); EOSINOPHILS ABSOLUTE AUTO 0.05 K/mm3 (0.00-0.68); EOSINOPHILS PERCENT AUTO 0 % (0-6); Hematocrit 25.8 % (33.0-51.0); Hemoglobin 8.2 g/dL (11.5-16.0); IMMATURE GRAN PERCENT AUTO 1 % (0-1); LYMPHOCYTES ABSOLUTE AUTO 0.53 K/mm3 (0.84-5.20); LYMPHOCYTES PERCENT AUTO 4 % (21-46); MONOCYTES ABSOLUTE AUTO 1.43 K/mm3 (0.16-1.47); MONOCYTES PERCENT AUTO 10 % (4-13); Mean Corpuscular HGB 30.3 pg (26.0-34.0); Mean Corpuscular HGB Conc 31.8 g/dL (31.5-36.5); Mean Corpuscular Volume 95 fL (80-100); Mean Platelet Volume 10.6 fL (9.1-12.4); NEUTROPHILS ABSOLUTE AUTO 12.47 K/mm3 (1.96-9.15); NEUTROPHILS PERCENT AUTO 85 % (41-73); Platelet Count 514 K/mm3 (150-400); RDW Coefficient Variation 15.3 % (11.7-14.2); RDW Standard Deviation 53.1 fL (35.1-46.3); Red Blood Cell Count 2.71 M/mm3 (3.80-5.20); White Blood Cell Count 14.66 K/mm3 (4.00-11.30)
--- NOTE | 2021-09-25 09:17 | NUR ---
AM NOTE.... ASSUMED CARE OF PT AT 0700 THE PT IS A&Ox2. DURING THIS AM ASSESSMENT THIS RN NOTED THE PT'S O2 SATS WERE IN THE 70'S ON RA, THIS IS A CHANGE FROM YESTERDAY WHEN HER O2 SATS WERE IN THE 90'S ON RA. THE PT WAS PLACED ON 2L NC AND THIS WAS TITRATED UP TO 5L NC TO KEEP O2 SATS >88%. L/S CLEAR IN THE UPPER LOBES DIM AND COARSE IN THE LOWER LOBES, THIS IS ALSO A CHANGE FROM YESTERDAY. THE PT'S RR IS IN THE HIGH 20'S TO 30'S. THE PT'S BP IS HYPERTENSIVE BUT NORMAL FOR HER. THE PT'S HR IS IN THE LOW 100'S. THE PT'S TEMP IS 100.5. A POWER GLIDE WAS PLACED AND LABS WERE DRAWN. PROVIDER WAS NOTIFIED. THE PT IS TO GET DIALYSIS TODAY. WILL CONTINUE TO MONITOR.
--- NOTE | 2021-09-25 11:06 | NUR ---
PT UPDATE.... THIS RN NOTED A FOUL ODOR COMING FROM THE PT'S WOUNDS ON HER RIGHT LEG, THE MEPILEX DRESSINGS TO HER RIGHT FOOT/HEEL AND POSTERIOR CALF WERE REMOVED AND NEW PICTURES TAKEN OF THE WOUNDS, THE WOUNDS ARE NOTED TO BE MOIST AROUND THE ESCHAR/ WOUND EDGES. A NEW DRESSING WAS PLACED BY THIS RN, PROVIDER WAS NOTIFIED AND NEW ORDERS FOR A PODIATRY CONSULT WERE PLACED. PODIATRY PROVIDER WAS NOTIFIED BY CHROME PLATER. WILL CONTINUE TO MONITOR.
[2021-09-25 14:31] LABS: Influenza A, PCR NEGATIVE (NEGATIVE); Influenza B, PCR NEGATIVE (NEGATIVE); Resp Syncytial Virus, PCR NEGATIVE (NEGATIVE); SARS-Cov-2 (COVID-19) PCR, MMC NEGATIVE (NEGATIVE)
--- NOTE | 2021-09-25 18:48 | NUR ---
SHIFT SUMMARY.... NO ACUTE NEGATIVE CHANGES SINCE PREVIOUS NOTES, THE PT WAS TESTED FOR FLU/COVID AND WAS NEGATIVE. THE PT HAS BEEN NEEDING 2L NC PRN TO KEEP O2 SATS >90%, THE PT WAS ON RA MOST OF THE TIME WHILE UP IN THE RECLINER CHAIR. THE PT WAS UP IN THE CHAIR FOR SEVERAL HOURS THIS SHIFT. SHE WAS SEEN BY THE PODIATRY PROVIDER IN THE ROOM, RIGHT FOOT/HEEL XRAYS WERE ORDERED AND DONE IN THE ROOM. THE PT IS TO BE NPO AFTER MIDNIGHT FOR A PROCEDURE WITH DR. SHAFFER TOMORROW. CALL LIGHT IN REACH WILL CONTINUE TO MONITOR UNTIL REPORT IS GIVEN TO ONCOMING RN.
--- NOTE | 2021-09-25 23:27 | NUR ---
ASSUMED CARE AT 1900 PT IN THE MIDDLE OF DIALYSIS DURING SHIFT CHANGE. PT IS A/O X1; SHE IS IMPULSIVE AND MUST BE REMINDED FRQUENTLY TO NOT PULL AT LINES; PT IS SLOW TO RESPOND AND DISTRACTED WHEN THE TV IS ON. SPO2 95% ON RA. HR 100'S. BP ELEVATED DURING DIALYSIS. 1L TAKEN OFF DURING DIALYSIS. CPAP TO BE WORN WHEN SLEEPING. DRESSINGS TO BLE IN PLACE AND C/D/I. SEE SHIFT ASSESSMENT FOR FULL ASSESSMENT. CALLED DR Méndez REGARDING PM DOSE OF ELEQUIS. HE STATED THAT HE WILL BE TAKING PT BACK TO THE REFRIGERATION INSULATOR TOMORROW 09/26/21 AND TO HOLD THE ELEQUIS UNTIL THEN.
[2021-09-26 04:00] LABS: Anion Gap 9 mmol/L (6-16); Blood Urea Nitrogen 39 mg/dL (8-24); Bun/Creatinine Ratio 17.1 (12.0-20.0); CO2, Blood 28 mmol/L (21-32); Calcium, Blood 8.9 mg/dL (8.5-10.1); Chloride, Blood 102 mmol/L (98-108); Creatinine, Blood 2.28 mg/dL (0.40-1.00); Glomerular Filtration Rate 26 (60-); Glucose, Blood 173 mg/dL (70-99); Magnesium, Blood 1.8 mg/dL (1.6-2.4); Phosphorus, Blood 2.9 mg/dL (2.5-4.9); Potassium, Blood 3.9 mmol/L (3.5-5.5); Sodium, Blood 139 mmol/L (136-145)
--- NOTE | 2021-09-26 05:39 | NUR ---
END OF SHIFT SUMMARY NO ACUTE EVENTS OVERNIGHT. PT WAS ABLE TO SLEEP FOR A SOLID 5HRS WITH CPAP ON. NO CHANGES IN ORIENTATION; CHALLENGING TO UNDERSTAND PT WHEN SHE IS JUST WAKING UP; RIGHT NOW PT IS JUST MOANING IN BED AND IS NOT CONSOLABLE. VSS. NPO SINCE MIDNIGHT. DRESSINGS ON BLE C/D/I. WILL REPORT TO AM RN WHEN AVAILABLE.
--- NOTE | 2021-09-26 12:07 | NUR ---
REASSESSMENT PT WAS SUPPOSED TO GO TO PURCHASE ANALYST AGAIN TODAY SO BLOOD THINNERS AND MEALS HELD THIS AM. DR. SHAFFER AND DR. MANLEY TALKED AND RE-EVALUATED AND DECIDED TO HOLD OFF. DR. SHAFFER SAID HE WOULD CHECK IN AND SEE HOW PT IS DOING ON THURSDAY. BLOOD THINNERS GIVEN AND PT EATING LUNCH NOW. PT HAS BEEN UP IN THE CHAIR SINCE ABOUT 10AM. TOOK PT OUTSIDE IN THE WHEELCHAIR THIS MORNING SINCE SHE HAS BEEN IN THE HOSPITAL SO LONG AND PT APPEARED TO ENJOY IT. PT JUST FINISHED WORKING WITH OT. LUGNS REMAIN CLEAR, RA. WOUNDS UNCHANGED. MEDICATED ONCE WITH TYLENOL FOR PAIN IN HER LEGS. CONTINUING TO MONITOR.
--- NOTE | 2021-09-26 13:41 | NUR ---
Spiritual Care Visit. Pt. is sitting up and welcomes my visit. Pt. is pleasant but displays evidence of losing her train of thought. Re-establish rapport. Engage in discussion regarding her family. Listen emptathetically with a calming presence. Pt. displays evidence of trust and an awareness of the leaders and recovery ministries through [facility]. Prayed with Pt. Pt. verbalized gratitude for the spiritual care visit.
--- NOTE | 2021-09-26 16:49 | NUR ---
SHIFT SUMMARY PT HAS BEEN UP IN THE CHAIR SINCE 1000 THIS MORNING. SHE SWITCHED TO THE SHOWER CHAIR THIS AFTERNOON FOR HER SHOWER, BUT THEN GOT BACK INTO THE RECLINER. LUNGS REMAIN CLEAR, RA. ONE INCONTINENT EPISODE IN ATTENDS. DRESSINGS CHANGED ON HEELS AND CALF AFTER HER SHOWER. ATE WELL AT LUNCH, BLOOD SUGARS CONTROLLED TODAY SO FAR. MORE TROUBLE FINDING THE RIGHT WORDS THIS AFTERNOON WHEN SHE'S BEEN MORE TIRED. CONTINUING TO MONITOR.
--- NOTE | 2021-09-26 18:44 | NUR ---
PT'S MOTHER VISITING PT AND IS TALKING NEGATIVELY ABOUT HOSPITAL STAFF TO PT SAYING THAT THE GOAL OF THE HOSPITAL IS TO LOCK HER AWAY IN CORRECTION CARE FOREVER. DISCUSSED THE BENEFITS OF AIRCONDITIONING ENGINEER CARE RELATED TO SAFETY AND GLUCOSE MANAGEMENT FOR THE PATIENT. DISCUSSED BARRIERS TO DISCHARGE AND THE CURRENT STATUS OF TRYING TO GET PT OUT OF THE HOSPITAL. PT'S MOTHER CONTINUED TO TALK NEGATIVELY OF HOSPITAL. ATTEMPTED TO ALLEVIATE CONCERNS TO NO AVAIL. PROVIDED REASSURANCE TO PT.
--- NOTE | 2021-09-26 20:26 | NUR ---
ASSUMED PT CARE AT 1915 FROM KRISTI PAUL PT SITTING UP IN CHAIR WITH FAMILY AT BEDSIDE. PT ALERT AND CONVERSING WITH STAFF AND FAMILY. SHE IS ALERT AND ORIENTED TO SELF AND CITY. FORGETFUL AND CONFUSED REGARDING EVENTS LEADING TO HOSPITAL STAY. MOM AT BEDSIDE VERY UPSET REGARDING DISCHARGE PLAN TO LTC SHE STATES SHE IS FULLY CAPABLE OF TAKING CARE PT AND PROVIDING HER WITH 24 HOUR CAREGIVER ASSIST. I EDUCATED ON THE IMPORTANCE OF PT MAKING HER DIALYSIS APPTS WELL MANAGING HER DIABETES. PT'S MOTHER DEMONSTRATED UNDERSTANDING AND STATED IF SHE WAS GIVEN THE EDUCATION REGARDING CARB COUNTING TO MANAGE DIABETES SHE WOULD BE ABLE TO ASSIST. INFORMED THE MOTHER THAT I WOULD LOOK OVER CASE MANAGEMENT NOTES AND SEE WHY DISCHARGE POTENTIAL WASN'T ARRANGED TO D/C WITH MOTHER. AFTER REVIEWING NOTES INFORMED THE MOM THAT CASE MANAGEMENT ATTEMPTED TO CONTACT HER MULTIPLE TIMES WITHOUT ANY RETURN CALLS. PT'S MOTHER APPEARED CONFUSED SHE DIDN'T RECALL GETTING ANY CALLS. VERIFIED PHONE NUMBER WITH MOTHER AND SHE STATED THAT WAS THE CORRECT PHONE NUMBER. PT REQUESTED THAT I CALL THE NUMBER RIGHT AWAY TO ENSURE IT WORKED AND PT'S MOTHER STATED THE PHONE WAS NOT ON HER PERSONS AND STATED IT WAS IN THE CAR. SHE STATED TO CALL HER IN 10 MINUTES AND SHE WOULD ANSWER, WHICH SHE DID. PT WANTED TO SHOW HER MOM SHE COULD WALK; LOOKED OVER PT/OT NOTES AND IT APPEARS PT HAS BEEN STANDING AND UTILIZING WALKER FOR SHORT DISTANCES. GAITBELT APPLIED AND PT WAS ABLE TO AMBULATE WITH WALKER FROM RECLINER, AROUND THE BED, AND INTO THE BED. PT TOLERATED WELL. HOWEVER, UPON LYING IN BED PT STARTED C/O 10/10 PAIN TO BILATERAL LEGS. TYLENOL ADMINISTERED PER PT REQUEST. PT HYPERTENSIVE AND WAS MEDICATED WITH HYDRALAZINE PER ORDERS. SEE SHIFT ASSESSMENT FOR FURTHER DETAILS.
[2021-09-27 04:30] LABS: Hematocrit 26.3 % (33.0-51.0); Hemoglobin 8.4 g/dL (11.5-16.0)
[2021-09-27 04:49] LABS: Albumin, Blood 2.2 g/dL (3.4-5.0); Anion Gap 8 mmol/L (6-16); Blood Urea Nitrogen 59 mg/dL (8-24); Bun/Creatinine Ratio 15.7 (12.0-20.0); CO2, Blood 26 mmol/L (21-32); Calcium, Blood 9.4 mg/dL (8.5-10.1); Chloride, Blood 105 mmol/L (98-108); Creatinine, Blood 3.76 mg/dL (0.40-1.00); Glomerular Filtration Rate 14 (60-); Glucose, Blood 128 mg/dL (70-99); Magnesium, Blood 1.9 mg/dL (1.6-2.4); Phosphorus, Blood 3.5 mg/dL (2.5-4.9); Potassium, Blood 4.9 mmol/L (3.5-5.5); Sodium, Blood 139 mmol/L (136-145)
--- NOTE | 2021-09-27 05:19 | NUR ---
END OF SHIFT SUMMARY PT SLEPT MOST OF SHIFT; HOWEVER, UPON LAB DRAW THIS MORNING PT STARTED MOANING OUT IN PAIN. THEREFORE, CALLED DR. TERRY REGARDING LEG PAIN S/P STENTING INTERVENTION. NEW ORDERS FOR NORCO, WHICH PT TOLERATED WELL AND APPEARS TO BE EFFECTIVE. PT INDEPENDENT IN REPOSITIONING SELF. INCONTINENT OF BOWEL AND BLADDER. WILL CONTINUE TO MONITOR UNTIL REPORT IS HANDED OFF TO ONCOMING RN.
--- NOTE | 2021-09-27 06:53 | NUR ---
ASSUMED PT CARE AT 0600 PT ARRIVED ON UNIT FROM ER SECONDARY TO NEEDING REMODULIN GTT D/T PT'S SUBQ PUMP FAILING. PT IS ALERT AND ORIENTED X4; PLEASANT AND COOPERATIVE WITH CARES. AMBULATORY AT BASELINE. PT NOTED TO BE NSR WITH HR 70'S. BASELINE OF 5L OXYGEN VIA NC WITH SPO2 99%. BP'S STABLE, SEE FLOWSHEET. PT HAS AN 18G IV TO LEFT AC WITH NS TKO AND REMODULIN INFUSING AT 3.1 ML/HR. CALL LIGHT IS WITHIN REACH; WILL CONTINUE TO MONITOR UNTIL REPORT IS HANDED OFF TO ONCOMING RN.
--- NOTE | 2021-09-27 08:00 | NUR ---
ASSUMED CARE REPORT RECIEVED. PT IS LAYING SIDEWAYS IN BED, AWAKE, ALERT, AND ORIENTED. PT ASKING ABOUT BREAKFAST UPON ENTERING ROOM. PT DENIES PAIN OR DISCOMFORT AT THIS TIME. VITAL SIGNS STABLE. PT ON ROOM AIR. PERMACATH TO RIGHT CHEST IN PLACE, HORTENSIA. PT WITHOUT IV ACCESS, OK PER DR JUAREZ. PLANS FOR PT TO GO TO DIALYSIS THIS SHIFT. WILL CONTINUE TO MONITOR.
--- NOTE | 2021-09-27 17:54 | NUR ---
SHIFT SUMMARY NO ACUTE CHANGES THIS SHIFT. PT HAS REMAINED AWAKE, ALERT, AND ORIENTED THIS SHIFT. PT RECIEVED DIALYSIS THIS MORNING. PT WORKED WITH PHYSICAL THERAPY AFTER DIALYSIS AND HAS BEEN UP IN RECLINER CHAIR THROUGHOUT THE AFTERNOON. VITAL SIGNS STABLE. PERMACATH REMAINS IN PLACE. ATTENDS IN PLACE. PT EATING ALL MEALS WELL. NO CALLS FROM ANY FAMILY MEMBERS THIS SHIFT. WILL CONTINUE TO MONITOR AND REPORT OFF TO ONCOMING RN.
--- NOTE | 2021-09-27 23:25 | NUR ---
PT.'S MOTHER CALLED AND WAS UPDATED. ANOTHER WOMAN ATTEMPTED TO CALL INTO THE ROOM BUT PT. WAS ASLEEP AT THE TIME.
--- NOTE | 2021-09-28 06:39 | NUR ---
PT. DID WELL OVERNIGHT, SHE TOLERATED HER CPAP WELL AND THE BEDTIME SLIDING SCALE DID NOT HAVE TO BE USED TO CONTROL BLOOD SUGAR. PT. WAS UP IN THE RECLINER UNTIL AROUND 1999 AND SHE WAS TRANSFERRED BACK AND SLEPT WELL OVER NIGHT.
--- NOTE | 2021-09-28 17:35 | NUR ---
SHIFT SUMMARY NO ACUTE CHANGES THIS SHIFT. PT HAS REMAINED AWAKE THROUGHOUT THE SHIFT WITH PERIODS OF BEING MORE ALERT AND SOME NONSENSICAL SPEECH AT TIMES. PT UP IN RECLINER CHAIR MOST OF THIS SHIFT. PT ATE ALL OF EACH MEAL. ATTENDS REMAIN IN PLACE, PT WITH INCONTINENT VOIDS. VITAL SIGNS STABLE. WILL CONTINUE TO MONITOR AND REPORT OFF TO ONCOMING RN.
[2021-09-29 03:40] LABS: Hematocrit 25.8 % (33.0-51.0); Hemoglobin 8.1 g/dL (11.5-16.0)
[2021-09-29 04:02] LABS: Magnesium, Blood 1.8 mg/dL (1.6-2.4)
[2021-09-29 04:03] LABS: Albumin, Blood 2.2 g/dL (3.4-5.0); Anion Gap 12 mmol/L (6-16); Blood Urea Nitrogen 63 mg/dL (8-24); Bun/Creatinine Ratio 16.6 (12.0-20.0); CO2, Blood 24 mmol/L (21-32); Chloride, Blood 101 mmol/L (98-108); Glomerular Filtration Rate 14 (60-); Glucose, Blood 291 mg/dL (70-99); Phosphorus, Blood 4.9 mg/dL (2.5-4.9); Potassium, Blood 5.3 mmol/L (3.5-5.5); Sodium, Blood 137 mmol/L (136-145)
--- NOTE | 2021-09-29 06:27 | NUR ---
SHIFT SUMMARY PT TRANSFERRED FROM ICU TO PCU AT AROUND 0240. PT WAS SLEEPING QUIETLY PRIOR TO TRANSFER. HAD LARGE BM IN BED. CLEANED UP BY BROKER ASSOCIATE BHARAT AND THIS RN PRIOR TO TRANSFER. PT AWAKENS, BECOMES DISTRAUGHT. BEGINS SCRATCHING AT DIALYSIS PORT SITE. TOLD MULTIPLE TIMES TO NOT SCRATCH AT SITE. PT IGNORES STAFF. PLACED ON MONITOR IN PCU 03 D/T THIS RN NOTICING PT DOES NOT SCRATCH FREQUENLTY AT SITE WHEN STAFF LEAVE BEDSIDE. PT CONTINUES TO SCRATCH AT CATH SITE, NO RASH VISIBLE. SCRATCHES AT R FOREARM. ALOE VERA LOTION APPLIED, DOES NOT SEEM TO RELIEVE THE URGE TO ITCH. ORDER FOR BENADRYL CREAM PLACED, PHARMACY NOTIFIED OUT OF STOCK. PT EVENTUALLY LEAVES SITE ALONE AFTER FALLING ASLEEP. SNORING HEARD FROM PATIENT IN BED. PT IS IN SPECIALTY BED BROUGHT OVER WITH PT FROM ICU. WHEN ASKED ORIENTING QUESTIONS PT DOES NOT REPLY OR STATES "I DON'T KNOW." PT CANNOT TELL THIS RN HER NAME. DOES NOT FOLLOW INSTRUCTIONS GIVEN BY STAFF. AM MED DOSE DELAYED AT THIS TIME D/T PT SLEEPING RESTFULLY. THIS RN REQUESTS QUALITY PROCESS AUDITOR HOLD OFF ON CBG CHECK FOR 0730 MED D/T PT SLEEPING RESTFULLY AT THIS TIME. WILL NOTIFY ONCOMING RN OF NEED TO CHECK CBG WHEN GOING IN FOR MED AND ASSESSMENT.
--- NOTE | 2021-09-29 17:30 | NUR ---
END OF SHIFT: PATIENT HAS BEEN IMPROVED MENTATION FROM THIS AM, PATIENT HAS BEEN ABLE TO ANSWER QUESTIONS AND SLIGHTLY ABLE TO MAKE NEEDS KNOWN, PATIENT HAS BEEN UP IN THE CHAIR FOR MOST OF THE EVENING, DRESSING CHANGE TO BILATERAL HEEL PROTECTORS AND RLE MEPILEX, PATIENT HAS BEEN AFEBRILE, MEDICATED PER MAY AND IN SUCCESSFUL PAIN CONTROL AT THIS TIME, PATIENT HAS BEEN IN CONTROL OF HER CBG NONE GIVEN FOR DINNER,. PATIENT WAS REPOSITIONED BY PCT OR MYSELF ATLEAST Q 1.5Hr. NO TELE, DENIES CHEST PAIN, OR PRESSURE, NO SOB, JUST PAIN OF HER BLE. CAMERA STILL ON SLIGHLTY IMPULSIVE. BLOOD PRESSURE VERY SLIGHTLY ELEVATED WITH EVENING BLOOD PRESSURE, PATIENT UPRIGHT IN RECLINER ON RA NO CONCERNS AT THIS TIME. WILL CONTINUE UNTIL SHIFT CHANGE. DIALYSIS TODAY.
--- NOTE | 2021-09-30 04:07 | NUR ---
PT UPDATE THIS RN CALLED BY [facility] AND NOTIFIED OF PT STARTING TO SCRATCH AND PULL NEAR PORT. THIS RN TO BEDSIDE AT AROUND 0330. PT HAS CPAP IN PLACE, SCRATCHING AT R SIDE CHEST. THIS RN STOPS PT AND ATTEMPTS TO REASSURE AND REORIENT PT. PT IS CONFUSED, DOES NOT RESPOND TO ORIENTING QUESTIONS APPROPRIATELY STATES "I DON'T KNOW", THIS RN TRIES TO ASK PT TO EXPLAIN WHAT IS WRONG, PT IS MOANING AND MAKING SOBBING NOISES, NO VISIBLE TEARS. PT GROANS. PT CHANGED INTO CLEAN BRIEFS AND REPOSTIONED. ATTEMPTED TO REPLACE FOAM HEEL PROTECTORS TO FLOAT PT'S HEELS, PT LIFTS LEGS AND KICKS OFF. ATTEMPTS TO PULL OFF HEEL DRESSINGS. THIS RN REPLACES DRESSING TO BACK OF PT'S CALF. PT TELLS THIS RN "I NEED TO GO", TRIES TO PULL OFF GOWN. THIS RN ATTEMPTS TO REORIENT AND REASSURE PT. ASKS WHAT PT MEANS BY GO. ASKS IF PT NEEDS TO USE A BEDPAN. PT SAYS YES, WHEN BEDPAN BROUGHT TO BEDSIDE, PT STATES SHE DOES NOT NEED TO USE IT. REAPPLIED HYDROCORTISONE CREAM FOR PATIENT ITCHING. WHEN ASKED IF PT IS IN PAIN, PT SAYS "YES". WHEN ASKED WHERE SHE IS HURTING, PT SAYS "I DON'T KNOW". PT SCRATCHING AT LEG, BACK, AROUND PORT, BEHIND NECK, UNDER ARMS. THIS RN REASSURES PT, REPOSITIONS FOR COMFORT. CPAP TAKEN OFF AT THIS TIME. PT MOANS, LESS FREQUENTLY THAN BEFORE.
--- NOTE | 2021-09-30 04:47 | NUR ---
PT UPDATE PT CALMS AFTER THIS RN REPOSITIONS AND ADMINS TYLENOL PRN PER ORDER. THIS RN REPLACES CPAP AFTER BRIEF 2 SECOND EPISODE APNEA X2 DROPS PT SPO2 TO 80% ON RA WHILE PT IS SLEEPING. PT SATS 100% AND APPEARS TO REST QUIETLY AT THIS TIME.
--- NOTE | 2021-09-30 06:50 | NUR ---
PT AOX3 AT START OF SHIFT, COOPERATIVE, CONVERSATIONAL, AND PLEASANT WITH THIS RN. FOLLOWS INSTRUCTIONS. PT DENIED PAIN AT START OF SHIFT. INCONTINENT OF URINE T/O NIGHT AND AM. SMALL BOIL OR INGROWN HAIR NOTED TO BUTTOCKS NOT NOTICED BY THIS RN ON PRIOR SHIFT. PT HYPERGLYCEMIC FOR CHECKS THROUGH NIGHT, COVERED PER ORDER. PT BREATHING EVEN AND UNLABORED, SOME APNEA NOTED IN EARLY AM WHEN CPAP REMOVED BY THIS RN TO TRY TO MAKE PT MORE COMFORTABLE. SATS DROPPED SIGNIFCIANTLY FOLLOWING REMOVAL OF CPAP AT THAT TIME. NO COMPLAINTS OF CP. PT HAD EPISODE AROUND 0300 SIMILAR TO PRIOR AM IN WHICH PT BEGAN FRANTICALLY ITCHING AND TUGGING AT PORT. ITCHING HER BACK, NECK, ARM, AND FOREARMS. CONTINUED ITCHING EVEN FOLLOWING APPLICATION OF PRN CREAM. PT REPOSITIONED FREQUENTLY FOR COMFORT T/O NIGHT. HELD OFF ON NORCO D/T PT BEING DISORIENTED AND IMPULSIVE. PT SETTLES DOWN AFTER SOME REPOSITIONING AND APPEARS TO SLEEP. CPAP ON, SATS 97%.
--- NOTE | 2021-09-30 17:43 | NUR ---
END OF SHIFT: PATIENT HAS BEEN MORE ALERT AND ORIENTED THAN PREVIOUS SHIFT WITH HER, 2-3. IS ABLE TO SAY HER , PAIN HAS BEEN MANAGED WITH EMAR MEDICATIONS, WAS ABLE TO WORK WITH PT/OT, INCRESAED STRENGTH. ONLY THING OF ABNORMAL DIFFERNCE WAS A CHANGE IN MINOR WARMTH TO HER RLE, RESIDENT CONSULTED AND WILL CONTINUE TO MONITOR POSSIBLE US TOMORROW, AND POTENTIAL NEED FOR SURGICAL I&D, PATIENT HAS BEEN IN THE CHAIR MOST OF THE DAY, CAMERA IS STILL ON AND NEEDED. PATIENT HAS BEEN ASKING QUESTIONS, SEEN BY CASE MANAGEMENT. NO OTHER CONCERNS, WILL CONTINUE TO MONITOR, PATIENT HAS BEEN IMPROVING FROM PREVIOUS DAY, HAS HAD SOME HTN AND PRN GIVEN, WILL CONTINUE TO MONITOR, NO CONCERN FROM THIS SOAP INSPECTOR THAT HAVE NOT BEEN STATED,
--- NOTE | 2021-09-30 17:53 | NUR ---
Pt appeared to recognize me immediately when I entered the room, but then began asking questions that didn't apply to me such as, "How's your baby doing?" and asking me if I had seen her brother's little baby today. She was pleasantly confused. No changes to care plan. Will continue to follow, provide updates to pt's mother.
[2021-10-01 04:00] LABS: Hemoglobin 8.3 g/dL (11.5-16.0)
[2021-10-01 04:16] LABS: Albumin, Blood 2.4 g/dL (3.4-5.0); Anion Gap 8 mmol/L (6-16); Blood Urea Nitrogen 49 mg/dL (8-24); Bun/Creatinine Ratio 13.2 (12.0-20.0); CO2, Blood 26 mmol/L (21-32); Calcium, Blood 8.7 mg/dL (8.5-10.1); Chloride, Blood 104 mmol/L (98-108); Glomerular Filtration Rate 15 (60-); Glucose, Blood 143 mg/dL (70-99); Phosphorus, Blood 5.6 mg/dL (2.5-4.9); Potassium, Blood 4.9 mmol/L (3.5-5.5); Sodium, Blood 138 mmol/L (136-145)
--- NOTE | 2021-10-01 05:21 | NUR ---
SHIFT SUMMARY NO ACUTE CHANGES THIS SHIFT. VSS EXCEPT HTN, PO MEDS PER EMAR. PT'S MENTAION ALERT, ORIENTATION WAXES AND WANES PER BASELINE NOW. PT UP IN CHAIR UPON SHIFT START, HAD TO BE LIFTED TO BED BY STAFF DUE TO WEAKNESS AND INABILITY TO WALK. LUNGS CLEAR, ON RA. NO SNACKS THIS SHIFT PER ORDERS. CBGS STABLE. INCONTINENT VOIDS. PRESSURE INJURIES REMAIN TO BLE'S, DRESSINGS CHANGED. OTHERWISE, PT RESTING OFF AND ON. BED ALARM IN PLACE.
--- NOTE | 2021-10-01 07:40 | NUR ---
AM Assessment: Pt laying in bed. States that she is having pain in her legs. Will medicate per orders. BP elevated, will hold BP meds at this time D/T dialysis but will medicate if BP does not improve. Pulses palp, LS clear, HR reg, BT positive. Multiple wounds to BLE noted. Mepalex dressings intact. Large bruise noted to back of R knee. Pt states that it is painful. Soft, no hematoma felt. Pt up to chair with 3 person assist. Tolerated well. Call light in reach. Will monitor.
--- NOTE | 2021-10-01 09:22 | NUR ---
Pt taken to dialysis via bed. Will await return.
--- NOTE | 2021-10-01 17:35 | NUR ---
SHIFT SUMMARY: Pt sitting up in chair eating dinner at this time. Pt has done well this shift. Had dialysis this AM without any issues. BP improved slightly after dialysis. [facility] came and saw patient, discussing her discharge plans. Pt worked with PT and OT today. CBG was low this evening. Pt was given some cheese and oj at that time. Evening doses of insulin held per orders. Pt has no other acute changes this shift. Will report to night RN.
[2021-10-02 04:03] LABS: Albumin, Blood 2.3 g/dL (3.4-5.0); Albumin/Globulin Ratio 0.6 (0.8-1.8); Bilirubin, Total 0.5 mg/dL (0.1-1.0); Bun/Creatinine Ratio 16.9 (12.0-20.0); Calcium, Blood 8.5 mg/dL (8.5-10.1); Creatinine, Blood 2.72 mg/dL (0.40-1.00); Globulin, Blood 3.8 g/dL (2.2-4.0); Potassium, Blood 4.6 mmol/L (3.5-5.5); Total Protein, Blood 6.1 g/dL (6.4-8.2)
--- NOTE | 2021-10-02 11:19 | NUR ---
Spiritual Care Visit. Pt. is sitting up in chair, awake and welcomes my visit. Pt. seems in good spirits. Rapport is re-established. Facilitated a signiicant family life review. Pt. displayed evidence of engagement, and trust. Pt. verbalized some of the burdens her mother has carried in recent months. Prayed with Pt. Pt. verbalized gratitude foer the spiritual care visit.
--- NOTE | 2021-10-02 21:30 | NUR ---
Assumed Care. Alert, oriented to self. Does not know time or place. Is able to state needs, some times uses call light. Was up to chair, assisted to bed with use of walker. LS clear t/o. Resp even and un-labored. Sinus on monitor. Attends changed. Blood sugar checked, 47, gave cheese and crackers. Recheck 68. Will continue to monitor, insulin held for tonight. Repositioned in bed. call light given. Bed in low position.
--- NOTE | 2021-10-02 22:45 | NUR ---
SPOKE TO DR. TERRY IN REGARDS TO BLOOD SUGARS BEING ON THE LOW SLIDE AND ORDER TO GIVE INSULIN LONG AND SHORT ACTING. ORDER TO HOLD BOTH TYPES OF INSULINS FOR NOW.
[2021-10-03 04:40] LABS: Hematocrit 27.3 % (33.0-51.0); Hemoglobin 8.4 g/dL (11.5-16.0)
[2021-10-03 04:57] LABS: Albumin, Blood 2.6 g/dL (3.4-5.0); Anion Gap 20 mmol/L (6-16); Blood Urea Nitrogen 71 mg/dL (8-24); Bun/Creatinine Ratio 18.4 (12.0-20.0); CO2, Blood 17 mmol/L (21-32); Calcium, Blood 9.1 mg/dL (8.5-10.1); Chloride, Blood 99 mmol/L (98-108); Creatinine, Blood 3.86 mg/dL (0.40-1.00); Glomerular Filtration Rate 14 (60-); Glucose, Blood 468 mg/dL (70-99); Magnesium, Blood 2.1 mg/dL (1.6-2.4); Phosphorus, Blood 5.4 mg/dL (2.5-4.9); Potassium, Blood 5.4 mmol/L (3.5-5.5); Sodium, Blood 136 mmol/L (136-145)
--- NOTE | 2021-10-03 05:35 | NUR ---
SHIFT SUMMARY: ORIENTED TO SELF, PLACE. ABLE TO GET NEEDS ACROSS, USES CALL LIGHT MOST OF THE TIME. DISORIENTED ABOUT TIME AND PLACE. HYPERTENSIVE WITH BP HIGH 190'S, HYDRALAZINE GIVEN, RECHECK IS PENDING. LONG ACTING AND SLIDING SCALE WAS HELD LAST NIGHT DUE TO CRITICAL LOW BLOOD SUGAR OF 47, HIGHEST IT GOT AFTER HAVING A SNACK WAS 81. DR. TERRY INFORMED ORDER TO HOLD BOTH INSULINS FOR NOW. RECHECK AT 0200 WAS 289. THIS AM PER LAB WAS 468, GAVE SLIDING SCALE EARLY PER DR. SHERMAN. INCONTIENT OF URINE, 3 ATTENDS CHANGE NOTED. 440 FLUID INTAKE. NO OTHER ACUTE CHANGES NOTED THIS SHIFT. CALL LIGHT IS IN REACH.
--- NOTE | 2021-10-03 10:48 | NUR ---
0915 TO DIALYSIS ACUTE ROOM FOR TX. PT IS SLEEPY AND SOMNOLENT. COLOR IS PALE/ RESP STATUS IS PERIODS OF SHALLOW RESPIRATIONS WITH 10 SECOND APNEIC SPELLS. SA02 62-68% ON RA. RN HEYDI NOTIFIED, BIPAP REQUESTED. NASAL 02 PLACED BY THIS RN. SP02 > 89-91% ON 4 LITRES. SHANIQUA
--- NOTE | 2021-10-03 11:02 | NUR ---
0920: PRIMARY RN TO ROOM WITH BIPAP, PLACED ON PT AT 4LITERS. SA02 REMAINS 91-92%. RT IN TO CHECK PT. JOHN RT SHANIQUA
--- NOTE | 2021-10-03 12:22 | NUR ---
DR MANLEY NOTIFIED OF PT'S CHANGE IN MENTAL STATUS, NEED FOR BIPAP AND CONCERNS FROM THE HD NURSE. NEW ORDERS RECEIVED. WILL CONTINUE TO MONITOR AND UPDATE DR MANLEY OF CHANGES.
[2021-10-03 13:00] LABS: Base Excess Venous 12.8 mmol/L; Bicarbonate Venous 35.5 mmol/L (24.0-30.0); PCO2 Venous 41.3 mmHg (38-42); PO2 Venous 98.4 mmHg (38-42); pH Blood Venous 7.54 (7.34-7.37)
[2021-10-03 13:36] LABS: Bun/Creatinine Ratio 16.1 (12.0-20.0); Calcium, Blood 8.6 mg/dL (8.5-10.1); Creatinine, Blood 1.92 mg/dL (0.40-1.00); Potassium, Blood 3.3 mmol/L (3.5-5.5)
--- NOTE | 2021-10-03 15:00 | NUR ---
Pt was up yesterday ambulating with PT. Today, pt was lethargic, pale with sats in the 80's on 4L during dialysis. Per bedside RN, the patient had to be placed on bipap for several hours, and is now perfusing better, but still exhibiting an increase in confusion from her baseline. Unfortunately, she is pleasantly confused at her baseline, but this is definitely more confusion than normal. Pt care will continue to encourage pt and update pt's mom accordingly.
--- NOTE | 2021-10-03 18:38 | NUR ---
PT STAYED ON BIPAP FOR 4 HOURS THIS SHIFT. MORE AWAKE AND ALERT THIS AFTERNOON AROUND 3PM. FSBS NOTED TO BE 42, PT GIVEN A MEAL AND FSBS ON RECHECK 138. INSULIN HELD AT DINNER TIME. PER RT REPORT TODAY, PT HAS BEEN REFUSING TO WEAR HER BIPAP THE LAST 4 NIGHTS WHICH MAY HAVE CONTRIBUTED TO HER MENTAL STATUS CHANGES. DR MANLEY UPDATED WITH LAB RESULTS. NO OTHER ACUTE EVENTS THIS SHIFT. CALL LIGHT IN REACH, WILL CONTINUE TO MONITOR AND GIVE REPORT TO NOC SHIFT RN.
[2021-10-04 03:47] LABS: BASOPHILS ABSOLUTE AUTO 0.06 K/mm3 (0.00-0.23); BASOPHILS PERCENT AUTO 0 % (0-2); EOSINOPHILS ABSOLUTE AUTO 0.09 K/mm3 (0.00-0.68); EOSINOPHILS PERCENT AUTO 1 % (0-6); Hematocrit 24.9 % (33.0-51.0); Hemoglobin 7.9 g/dL (11.5-16.0); IMMATURE GRAN ABSOLUTE AUTO 0.11 K/mm3 (0.00-0.10); IMMATURE GRAN PERCENT AUTO 1 % (0-1); LYMPHOCYTES ABSOLUTE AUTO 0.88 K/mm3 (0.84-5.20); LYMPHOCYTES PERCENT AUTO 6 % (21-46); MONOCYTES ABSOLUTE AUTO 1.57 K/mm3 (0.16-1.47); MONOCYTES PERCENT AUTO 11 % (4-13); Mean Corpuscular HGB 30.5 pg (26.0-34.0); Mean Corpuscular HGB Conc 31.7 g/dL (31.5-36.5); Mean Corpuscular Volume 96 fL (80-100); Mean Platelet Volume 9.5 fL (9.1-12.4); NEUTROPHILS ABSOLUTE AUTO 11.98 K/mm3 (1.96-9.15); NEUTROPHILS PERCENT AUTO 82 % (41-73); Platelet Count 738 K/mm3 (150-400); RDW Coefficient Variation 15.5 % (11.7-14.2); RDW Standard Deviation 53.2 fL (35.1-46.3); Red Blood Cell Count 2.59 M/mm3 (3.80-5.20); White Blood Cell Count 14.69 K/mm3 (4.00-11.30)
[2021-10-04 04:02] LABS: Albumin, Blood 2.5 g/dL (3.4-5.0); Anion Gap 10 mmol/L (6-16); Blood Urea Nitrogen 49 mg/dL (8-24); Bun/Creatinine Ratio 15.3 (12.0-20.0); CO2, Blood 30 mmol/L (21-32); Calcium, Blood 8.8 mg/dL (8.5-10.1); Chloride, Blood 98 mmol/L (98-108); Creatinine, Blood 3.21 mg/dL (0.40-1.00); Glomerular Filtration Rate 17 (60-); Glucose, Blood 239 mg/dL (70-99); Magnesium, Blood 1.9 mg/dL (1.6-2.4); Phosphorus, Blood 4.6 mg/dL (2.5-4.9); Potassium, Blood 4.2 mmol/L (3.5-5.5); Sodium, Blood 138 mmol/L (136-145)
--- NOTE | 2021-10-04 07:01 | NUR ---
NO ACUTE EVENTS OVERNIGHT. PT APPEARED TO REST COMFORTABLY THROUGHOUT THE NIGHT AND WAS COMPLIANT WITH WEARING THE CPAP FOR THE DURATION OF THE NIGHT. BLOOD PRESSURE ELEVATED, REQUIRING PRN HYDRALAZINE. PT WAS RESISTANT TO TAKING MEDICATION AND MULTIPLE ATTEMPTS WERE MADE OVER A PERIOD OF ABOUT 30 MINUTES UNTIL PATIENT FINALLY AGREED TO TAKE THE MEDICATION.
--- NOTE | 2021-10-04 19:00 | NUR ---
ASSUMPTION OF CARE REPORT RECIEVED FROM ELEUTERIO BERRY AROUND 1600. SINCE ASSUMPTION OF CARE, NO REPORT OF SOB AOR CHEST PAIN/PRESSURE. PT WAS TRYING TO PIVOT FROM BED TO CHAIR WITH ASSISTANCE OF 2 RN'S, PT EXPRESSED INABILITY OF LIFTING LEFT LEG TO FOOT STOOL IN ORDER TO GET INTO THE CHAIR. PT DECIDED TO HEAD BACK TO BED. WITH THE USE OF FOOT STOOL AND A GAIT BELT, PT WAS ABLE TO TRANSFER BACK TO BED WITH MODERATE ASSISTNCE FROM 2 RN'S.
[2021-10-05 07:10] LABS: HBSAG SCREEN Negative (Negative); HEP B CORE AB, TOT Negative (Negative); HEP B SURFACE AB Reactive (.)
--- NOTE | 2021-10-05 09:57 | NUR ---
Assumed care of pt at 0700 from Enedina BERRY. Pt sitting up in chair at start of shift. Alert. Answers questions. Follows commands. Verbalizes needs. Pleasant and cooperative with care. Able to engage in meaningful conversation and pt talks about her being incarcerated. SpO2 90% or greater RA. No heart monitor as pt is medical floor status without telemetry. Pt back to bed to tranport to dialysis at 0700.
[2021-10-05 10:06] LABS: Albumin, Blood 2.5 g/dL (3.4-5.0); Anion Gap 13 mmol/L (6-16); Blood Urea Nitrogen 70 mg/dL (8-24); Bun/Creatinine Ratio 17.2 (12.0-20.0); CO2, Blood 28 mmol/L (21-32); Calcium, Blood 8.9 mg/dL (8.5-10.1); Chloride, Blood 95 mmol/L (98-108); Creatinine, Blood 4.08 mg/dL (0.40-1.00); Glomerular Filtration Rate 13 (60-); Glucose, Blood 247 mg/dL (70-99); Phosphorus, Blood 5.7 mg/dL (2.5-4.9); Potassium, Blood 4.3 mmol/L (3.5-5.5); Sodium, Blood 136 mmol/L (136-145)
--- NOTE | 2021-10-05 18:50 | NUR ---
SUMMARY Pt medical floor status without telemetry. Neuro: Pt A&O x 2. Answers questions. Follows commands. Verbalizes needs. Pleasant and cooperative with care. Musculoskeletal: Able to transfer with 2 person moderate assist. Pt has been sitting up in recliner from before 0600 to 0900 and then from 1230 until 1850. Respiratory: SpO2 90% or greater room air. Lungs clear Cardiac: Unchanged from initial assessment. GI: Tolerating diet well. BM today : Voided urine today. Had hemodialysis today. Skin: Wound care and dressing changes done per orders. Psychosocial: Pt in good spirits today. Brother and family came in to visit.
[2021-10-06 03:55] LABS: Hematocrit 26.6 % (33.0-51.0); Hemoglobin 8.6 g/dL (11.5-16.0)
[2021-10-06 04:13] LABS: Albumin, Blood 2.4 g/dL (3.4-5.0); Anion Gap 9 mmol/L (6-16); Blood Urea Nitrogen 35 mg/dL (8-24); Bun/Creatinine Ratio 13.1 (12.0-20.0); CO2, Blood 27 mmol/L (21-32); Calcium, Blood 8.5 mg/dL (8.5-10.1); Chloride, Blood 101 mmol/L (98-108); Creatinine, Blood 2.68 mg/dL (0.40-1.00); Glomerular Filtration Rate 22 (60-); Glucose, Blood 278 mg/dL (70-99); Magnesium, Blood 1.9 mg/dL (1.6-2.4); Potassium, Blood 4.3 mmol/L (3.5-5.5); Sodium, Blood 137 mmol/L (136-145)
--- NOTE | 2021-10-06 18:07 | NUR ---
SHIFT SUMMARY; ASSUMED CARE AT 0700. A/A/OX4 DURING SHIFT. UP IN RECLINER CHAIR MOST OF DAY. COOPERATIVE WITH CARE. HEEL PROTECTORS REPLACED DURING SHIFT. PICKS AND TEARS THEM OFF. ENCOURAGED TO LEAVE THEM ON. INSULIN COVERAGE PER EMAR. NO ACUTE MEDICAL CHANGES DURING SHIFT. WILL CONTINUE TO MONITOR AND TREAT.
--- NOTE | 2021-10-06 22:25 | NUR ---
CL CBG PT'S CBG CHECKED FOR 2200 INSULIN SHOWING A CBG OF 43. PT AWAKE AND COMMUNICATING APPROPRIATELY. PT GIVEN APPLE JUICE AND A SANDWHICH. PROVIDER NOTIFIED AND DUE TO NO IV ACCESS ON THE PT WE WILL RECHECK AFTER SHE FNISHES HER FOOD.
[2021-10-07 04:46] LABS: Hemoglobin 8.6 g/dL (11.5-16.0)
[2021-10-07 05:12] LABS: Albumin, Blood 2.6 g/dL (3.4-5.0); Anion Gap 9 mmol/L (6-16); Blood Urea Nitrogen 60 mg/dL (8-24); Bun/Creatinine Ratio 15.5 (12.0-20.0); CO2, Blood 28 mmol/L (21-32); Calcium, Blood 8.7 mg/dL (8.5-10.1); Chloride, Blood 99 mmol/L (98-108); Creatinine, Blood 3.86 mg/dL (0.40-1.00); Glomerular Filtration Rate 14 (60-); Glucose, Blood 277 mg/dL (70-99); Magnesium, Blood 2.1 mg/dL (1.6-2.4); Phosphorus, Blood 6.1 mg/dL (2.5-4.9); Potassium, Blood 5.1 mmol/L (3.5-5.5); Sodium, Blood 136 mmol/L (136-145)
--- NOTE | 2021-10-07 06:04 | NUR ---
DISTRICT ADVISER SUMMARY PT IS ALERT AND COMMUNICATING APPROPRIATELY. PT HAD CBG AT 2200 OF 43 BUT WAS ASYMPTOMATIC, PT GIVEN JUICE AND A SANDWHICH FOLLOWED BY REPEAT CBG'S UNTIL THEY WERE STABLE >110 PER PROVIDER ORDER. BP HAS REMAINED ELEVATED W SBP IN THE 180'S, HYDRALAZINE GIVEN PER EMAR. O2 SATS >90% ON RM AIR WHILE AWAKE AND CPAP WHILE ASLEEP. PT ABLE TO SLEEP MOST OF THE NIGHT. WILL REPORT TO ONCOMING RN.
--- NOTE | 2021-10-07 15:48 | NUR ---
Pt's mom is visiting today; pt up in chair at bedside. Pt is receiving dialysis three times weekly. Blood sugars continue to run both hypo and hyperglycemic without any changes to activity or diet. She continues to have intermittent confusion. Placed a call to [employer] [facility], and spoke to a insurance healthcare representative named Reyna, who referred me to their Nurse Navigator Leandra Estevez at [phone]. Leandra Triana is a specialist in Skeletal Dysplasia, and pt has dx of achondroplasia. Pt's mom is agreeable to a 2pm family meeting on 10/07 at 1400. Will send invites.
--- NOTE | 2021-10-07 16:39 | NUR ---
HYPOGLYCEMIA PT BG 33, DIAPHORETIC AND DROWSY, HOWEVER ABLE TO WAKEN WITH FREQUENT STIMULATION. PT DOES NOT HAVE IV ACCESS, ORANGE JUICE AND CHEESE AND CRACKERS BROUGHT TO BEDSIDE. PT ABLE TO DRINK ORANGE JUICE, AND BECAME MORE ALERT. PT. ABLE TO FEED SELF CHEESE AND CRACKERS. BG RECHECKED AND WAS 57. PRIMARY RN NOTIFIED.
--- NOTE | 2021-10-07 17:55 | NUR ---
SHIFT SUMMARY: PT ALERT, ORIENTED TO SELF, LOCATION, SITUATION T/OUT SHIFT. O2 SATS 88-91% UPON INITIAL ASSESSMENT AND PT PLACED ON 2 L/MIN NC W/IMPROVEMENT TO >93%. HTN CONTINUES W/ MEDICATION ADJUSTMENTS T/OUT THE DAY. DIALYSIS COMPLETED TODAY W/APPROX 1.3 L OFF, PT TOLERATES WELL. BLOOD GLUCOSE LEVELS CONTINUE TO BE LABILE, RANGING FROM 452 AT 0757 TO 33 AT 1623. CURRENTLY, PT SITTING IN BEDSIDE CHAIR AND EATING HER DINNER. WILL CONTINUE TO MONITOR AND TREAT ACCORDINGLY UNTIL CHANGE OF SHIFT.
[2021-10-08 04:49] LABS: Hematocrit 25.8 % (33.0-51.0); Hemoglobin 8.1 g/dL (11.5-16.0)
[2021-10-08 05:00] LABS: Albumin, Blood 2.2 g/dL (3.4-5.0); Anion Gap 9 mmol/L (6-16); Blood Urea Nitrogen 42 mg/dL (8-24); CO2, Blood 30 mmol/L (21-32); Calcium, Blood 8.6 mg/dL (8.5-10.1); Chloride, Blood 100 mmol/L (98-108); Creatinine, Blood 3.01 mg/dL (0.40-1.00); Glomerular Filtration Rate 19 (60-); Glucose, Blood 81 mg/dL (70-99); Magnesium, Blood 1.9 mg/dL (1.6-2.4); Phosphorus, Blood 4.6 mg/dL (2.5-4.9); Potassium, Blood 4.5 mmol/L (3.5-5.5); Sodium, Blood 139 mmol/L (136-145)
--- NOTE | 2021-10-08 05:50 | NUR ---
CUPOLA LINER HELPER SUMMARY PT IS ALERT BUT MUCH WEAKER AND MORE LETHARGIC THIS SHIFT COMPARED TO THE PREVIOUS NIGHT. PT HAD A CBG OF 179 AT THE START OF THE SHIFT SO HER INSULIN GLARGINE WAS GIVEN AT 2000 PER ORDER. AT 0230 HER CBG WAS 57 SO THE PT WAS GIVEN APPLE JUICE SINCE SHE WAS STILL ALERT. CBG TRENDING UP AND PT CONTINUED TO DRINK SMALL AMOUNTS OF JUICE SHE DID NOT WANT TO WAKE UP AND EAT SOMETHING. BP REMAINS HYPERTENSIVE THIS SHIFT. O2 SATS >90% ON 3L NC THE PT REFUSED TO WEAR HER CPAP THIS SHIFT. PT SLEEP FOR MOST OF THE NIGHT W CALL LIGHT WITHIN REACH. WILL REPORT TO ONCOMING RN.
--- NOTE | 2021-10-08 18:00 | NUR ---
SHIFT SUMMARY: PT CONTINUES ALERT, ORIENTED, COOPERATIVE W/CARE. O2 SATS MAINTAINED >93% ON RA TODAY. MEDICATION ADJUSTMENTS CONTINUE FOR HTN CONTROL, PT TOLERATING WELL W/IMPROVED SBP. NO DIALYSIS TODAY. PT DOES PARTICIPATE W/PT, AMBULATES W/FWW AND 2 PERSON ASSIST. STANDING WEIGHT OBTAINED DURING PT. BLOOD GLUCOSE LEVELS CONTINUE LABILE, MORNING INSULIN HELD PER DR Verenice CASTANEDA, SLIDING SCALE DOSE PROVIDED AT LUNCHTIME, SLIDING SCALE AND CARB DOSE PROVIDED AT DINNER DUE TO INCREASING GLUCOSE LEVELS. DR CAMERON RECONSULTED, DOSE CHANGE TO LONG ACTING INSULIN EFFECTIVE THIS EVENING. PT RESTING QUIETLY IN CHAIR W/CALL LIGHT WITHIN REACH. WILL CONTINUE TO MONITOR AND TREAT ACCORDINGLY UNTIL CHANGE OF SHIFT.
[2021-10-09 04:15] LABS: Hematocrit 28.2 % (33.0-51.0); Hemoglobin 8.8 g/dL (11.5-16.0)
[2021-10-09 04:41] LABS: Albumin, Blood 2.6 g/dL (3.4-5.0); Anion Gap 11 mmol/L (6-16); Blood Urea Nitrogen 63 mg/dL (8-24); Bun/Creatinine Ratio 16.5 (12.0-20.0); CO2, Blood 26 mmol/L (21-32); Calcium, Blood 9.1 mg/dL (8.5-10.1); Chloride, Blood 98 mmol/L (98-108); Creatinine, Blood 3.82 mg/dL (0.40-1.00); Glomerular Filtration Rate 14 (60-); Glucose, Blood 83 mg/dL (70-99); Phosphorus, Blood 5.5 mg/dL (2.5-4.9); Potassium, Blood 4.9 mmol/L (3.5-5.5); Sodium, Blood 135 mmol/L (136-145)
--- NOTE | 2021-10-09 05:50 | NUR ---
SHIFT SUMMARY A/OX3, FORGETFUL. CONTINUES TO HAVE BRITTLE BLOOD SUGARS WITH A CRITICAL LOW THIS AM OF 34. INCREASED TO 92 AFTER JUICE GIVEN. MEDICATED FOR PAIN X1. NON COMPLIANT WITH CPAP THIS SHIFT. HOWEVER, PT MATAINED SATS GREATER THAN 92 ON RA. PERMACATH TO RCW HORTENSIA. BED IN LOWEST POSITION WITH CALL LIGHT IN REACH. WILL CONTINUE TO MONITOR AND REPORT TO ONCOMING RN.
--- NOTE | 2021-10-09 17:36 | NUR ---
SHIFT SUMMARY: ASSUMED CARE OF PT THIS AM APPROX 0700 AFTER RECEIVING REPORT FROM KRISTI REYES. PT A&Ox3, COOPERATIVE WITH CARE, MAINTAINS O2 SATS >93% ON RA. PT W/SOFT BP WHICH IS ABNORMAL FOR HER, DR Verenice CASTANEDA MADE AWARE, MORNING MEDICATIONS HELD AND NEW PARAMETERS PLACED ON MED ORDERS. LABILE BLOOD GLUCOSE CONTINUES, PT INSULIN DOSES DECREASED IN ATTEMPT TO AVOID CRITICAL LOW VALUES AND DINNER TIME DOSE HELD D/TO GLUCOSE LEVEL OF 63 (PT PROVIDED WITH SNACK AND NOW EATING DINNER). PT RECEIVES DIALYSIS TODAY, TOLERATES WELL, REFUSES PT/OT W/ C/O PAIN TO VAMSHI FEET. DRESSINGS REMOVED, FEET CLEANED AND REDRESSED. PT ALSO MEDICATED PER EMAR. AT THIS TIME, PT RESTING IN ROOM W/DINNER TRAY AND CALL LIGHT IN REACH. WILL CONTINUE TO MONITOR AND TREAT ACCORDINGLY UNTIL CHANGE OF SHIFT.
[2021-10-10 04:26] LABS: Hematocrit 24.9 % (33.0-51.0); Hemoglobin 7.9 g/dL (11.5-16.0)
[2021-10-10 04:51] LABS: Albumin, Blood 2.4 g/dL (3.4-5.0); Anion Gap 11 mmol/L (6-16); Blood Urea Nitrogen 50 mg/dL (8-24); Bun/Creatinine Ratio 15.2 (12.0-20.0); CO2, Blood 27 mmol/L (21-32); Calcium, Blood 8.8 mg/dL (8.5-10.1); Chloride, Blood 100 mmol/L (98-108); Creatinine, Blood 3.29 mg/dL (0.40-1.00); Glomerular Filtration Rate 17 (60-); Glucose, Blood 314 mg/dL (70-99); Magnesium, Blood 2.1 mg/dL (1.6-2.4); Phosphorus, Blood 4.6 mg/dL (2.5-4.9); Potassium, Blood 4.7 mmol/L (3.5-5.5); Sodium, Blood 138 mmol/L (136-145)
--- NOTE | 2021-10-10 05:14 | NUR ---
SHIFT SUMMARY PT. SLEPT WELL THROUGHOUT THE NIGHT. BP WAS HYPERTENSIVE WHICH SEEMS TO BE BASELINE, BUT HAS NO CARDIAC COMPLAINTS. PT. SATTED WELL ON RA AND REFUSED TO WEAR HER BIPAP OVERNIGHT. PT. HAD COMPLAINTS OF PAIN THROUGHOUT THE NIGHT IN HER LEGS AND FEET AND WAS MEDICATED APPROPRIATELY WITH PRNS FROM EMAR. PT. IS RESTING COMFORTABLY AT THIS TIME.
[2021-10-10 09:00] LABS: Albumin, Blood 2.8 g/dL (3.4-5.0); Anion Gap 11 mmol/L (6-16); Blood Urea Nitrogen 51 mg/dL (8-24); CO2, Blood 25 mmol/L (21-32); Chloride, Blood 100 mmol/L (98-108); Creatinine, Blood 3.41 mg/dL (0.40-1.00); Glomerular Filtration Rate 16 (60-); Glucose, Blood 354 mg/dL (70-99); Phosphorus, Blood 4.7 mg/dL (2.5-4.9); Potassium, Blood 4.4 mmol/L (3.5-5.5); Sodium, Blood 136 mmol/L (136-145)
--- NOTE | 2021-10-10 18:33 | NUR ---
SHIFT SUMMARY PT A&OX4/SLOW TO RESPOND/ANSWERS APPROPRIATE, VSS/RA/TELE SR 70S. CBGS ACHS AND CARB COUNTING, TREATED BREAKFAST/LUNCH, CNI FOR DINNER-85. AMB STAND PIVOT, UP TO CHAIR T/O SHIFT, REPOSITIONS SELF. VOID/INCONTINENT/ATTENDS ON. PAIN MANAGED WITH 5 MG NORCO/GIVEN 2X. GRISEL PO ADA DIET. WILL REPORT TO ONCOMING NOC KRISTI.
[2021-10-11 04:10] LABS: Hematocrit 25.9 % (33.0-51.0)
[2021-10-11 04:57] LABS: Magnesium, Blood 2.2 mg/dL (1.6-2.4)
[2021-10-11 05:05] LABS: Albumin, Blood 2.6 g/dL (3.4-5.0); Anion Gap 12 mmol/L (6-16); Blood Urea Nitrogen 68 mg/dL (8-24); Bun/Creatinine Ratio 15.6 (12.0-20.0); CO2, Blood 26 mmol/L (21-32); Calcium, Blood 8.3 mg/dL (8.5-10.1); Chloride, Blood 98 mmol/L (98-108); Creatinine, Blood 4.35 mg/dL (0.40-1.00); Glomerular Filtration Rate 12 (60-); Glucose, Blood 324 mg/dL (70-99); Phosphorus, Blood 5.9 mg/dL (2.5-4.9); Potassium, Blood 6.2 mmol/L (3.5-5.5); Sodium, Blood 136 mmol/L (136-145)
--- NOTE | 2021-10-11 06:06 | NUR ---
NO ACUTE EVENTS OVERNIGHT, WITH THE EXCEPTION OF AN ELEVATED SERUM POTASSIUM OF 6.2. CRITICAL VALUE CALLED TO DR. CASTANEDA (NEPHROLOFGY). PT SCHEDULED FOR DIALYSIS TODAY. DRESSING CHANGED TO RIGHT HEEL. HURTADO/BROWN DRAINAGE NOTED. ALLAN SLEPT THROUGH THE NIGHT WITH CPAP IN PLACE.
--- NOTE | 2021-10-11 09:39 | NUR ---
CARE ASSUMPTION THIS RN ASSUMED CARE AT 0700 FROM LIVIA BERRY. VSS. MED NO TELE STATUS. PATIENT IS ALERT AND ORIENTED X4. PERRLA. NEURO INTACT. PATIENT REPORTS NO PAIN. PATIENT REPORTS CHRONIC NEUROPATHY TO LOWER EXTREMITIES, AND IS NOT BOTHERING HER THIS AM. PATIENT REPORTS NO CHEST PAIN/PRESSURE. STRONG RADAIL PULSE AND FAINT PEDIS BILATERALLY. EDEMA IN LOWER EXTREMITIES. PATIENT REPROTS NO SHORTNESS OF BREATH. CLEAR LUNG SOUNDS. ABD IS SOFT NONTENDER AND ACTIVE. INTERMITTENT INCONTIENCE. PRESSURE ULCER TO HEELS, BRUISING T/O, AND REDDNESS TO BOTTOM. ENCOURAGED REPOSITIONING. SEE SHIFT ASSESSMENT FOR FURTHER DETAILS. PATIENT CBG BEING MONITORED AC AND HS. ON A LOW SLIDING SCALE AND CARB COUNTING SCALE TO RECEIVE INSULIN PRIOR TO EATING CARBS. PATIENT UPDATED ON PLAN OF CARE. PATIENT TO DIALYSIS AT APPROX 0905. PATIENT IN NO DISTRESS WHEN GOING TO DIALYSIS.
--- NOTE | 2021-10-11 12:49 | NUR ---
UPDATE PATIENT RETURNED FROM DIALYSIS APPROX 1150. PATIENT LINEN CHANGED AND UP TO BEDSIDE CHAIR. PATIENT BP WAS HYPERTENSIVE AND RECEIVED PRN BLOOD PRESSURE MEDICATION PER EMAR ORDER. SEE EMAR AND VITAL SIGNS SECTION. PATIENT SITTING IN BEDSIDE CHAIR COMFORTABLY. WOUND CARE DONE ON HEEL AND HEEL PROTECTOR APPLIED. CALL LIGHT WITHIN REACH.
--- NOTE | 2021-10-11 17:52 | NUR ---
SHIFT SUMMARY PATIENT WORKED WITH PHYSICAL THERAPY AND OCCUPATIONAL THERAPY. PATIENT WAS OUT IN THE [place] WALKING WITH THE WALKER AND GATE BELT WITH ONE PERSON. PATIENT HAS SAT IN THE CHAIR FOR THE AFTERNOON. PATIENT REPORTED SOME BILATERAL LEG PAIN AND RECEIVED PAIN MEDICATION PER EMAR. PATIENT VITAL SIGNS REMAIN STABLE. PATIENT HAS NO CHANGES FROM THIS MORNING ASSESSMENT. NEURO REMAINS INTACT. NO ACUTE CHANGES. CALL LIGHT WITHIN REACH AND BED IN LOWEST POSITION. WILL MONITOR AND PROVIDE CARE UNTIL REPORT WITH NEXT SHIFT.
[2021-10-12 05:53] LABS: Hematocrit 28.5 % (33.0-51.0); Hemoglobin 9.1 g/dL (11.5-16.0)
[2021-10-12 06:16] LABS: Albumin, Blood 2.6 g/dL (3.4-5.0); Anion Gap 10 mmol/L (6-16); Blood Urea Nitrogen 49 mg/dL (8-24); Bun/Creatinine Ratio 14.2 (12.0-20.0); CO2, Blood 29 mmol/L (21-32); Calcium, Blood 9.2 mg/dL (8.5-10.1); Chloride, Blood 100 mmol/L (98-108); Creatinine, Blood 3.45 mg/dL (0.40-1.00); Glomerular Filtration Rate 16 (60-); Glucose, Blood 85 mg/dL (70-99); Magnesium, Blood 2.3 mg/dL (1.6-2.4); Phosphorus, Blood 4.5 mg/dL (2.5-4.9); Potassium, Blood 4.4 mmol/L (3.5-5.5); Sodium, Blood 139 mmol/L (136-145)
--- NOTE | 2021-10-12 07:24 | NUR ---
NO ACUTE EVENTS OVERNIGHT. ALLAN SLEPT COMFORTABLY WITH HER CPAP IN PLACE THROUGHOUT THE NIGHT. ALLAN DID REFUSE HER LAB DRAW THIS MORNING, BUT I WAS ABLE TO TALK HER INTO ALLOWING THE TAX COMMISSIONER TO RETURN TO DRAW HER BLOOD. HER POC BLOOD GLUCOSE WAS 71, SHE WAS ASYMPTOMATIC. CONSIDERING HOW QUICKL;Y HER BLOOD GLUCOSE CAN DROP, ALLAN WAS GIVEN 4 OZ OF ICE CREAM. HER BLOOD GLUCOSE REBOUNDED TO 85, THEN 130. SHE THEN REFUSED HER PANTOPRAZOLE, BUT AGREED TO TAKE IT LATER WITH HER MORNING MEDICATIONS.
--- NOTE | 2021-10-12 11:22 | NUR ---
CARE ASSUMPTION THIS RN ASSUMED CARE FROM LIVIA BERRY AT 0700. VSS. PATIENT IS ALERT AND ORIENTED X4. PATIENT REPORTS CHRONIC NEUROPATHY TO LOWER EXTREMITIES. PERRLA. PATIENT REPORTS PAIN TO LOWER EXTREMITIES AND RECEIVED PAIN MED PER EMAR. PATIENT REPORTS NO SHORNTESS OF BREATH. CLEAR LUNG SOUNDS. PATIENT REPORTS NO CHEST PAIN/PRESSURE. STRONG RADIAL PULSES. FAINT PEDIS. PATIENT HAS EDEMA TO LOWER EXTREMITIES. PATIENT SKIN PRESSURE ULCER TO HEELS. SEE PICTURES IN CHART. SEE SHIFT ASSESSMENT FOR FURTHER DETIALS. PATIENT USES CALL LIGHT APPRORPAITELY. PATIENT DID NOT RECEIVED MORNIGN SLIDING SCALE INSULIN OR AFTERNOON SLIDING SCALE INSULIN. PATIENT DID RECEIVE CARB COUNTING INSULIN THOUGH IN THE AM. PLAN OF CARE UP TO DATE. PATIENT PERFORMED OWN ADLS ONCE GIVEN SUPPLES TO BEDSIDE TABLE. CALL LIGHT WITHIN REACH AND BED IN LOWEST POSITION.
--- NOTE | 2021-10-12 16:57 | NUR ---
SHIFT SUMMARY PATIENT NEURO REMAINS INTACT. NO ACUTE CHANGES. PATIENT HAS SAT IN THE BEDSIDE CHAIR WITH PILLOWS ROTATING UNDER AND NOT UNDER LEGS. PATIENT REPROTED SOME LEG PAIN AND RECEIVED PAIN MEDICATION PER EMAR. SEE EMAR. PATIENT CALLS APPROPRIATELY. NO LOW SLIDING SCALE COVERAGE DURING THIS SHIFT. CALL LIGHT WITHIN REACH AND BED IN LOWEST POSITION. WILL CONTINUE TO MONITOR AND PROVIDE CARE UNTIL HAND OFF WITH NEXT SHIFT.
[2021-10-13 04:14] LABS: Hematocrit 27.6 % (33.0-51.0); Hemoglobin 8.7 g/dL (11.5-16.0)
[2021-10-13 04:34] LABS: Albumin, Blood 2.4 g/dL (3.4-5.0); Anion Gap 8 mmol/L (6-16); Blood Urea Nitrogen 66 mg/dL (8-24); Bun/Creatinine Ratio 15.1 (12.0-20.0); CO2, Blood 28 mmol/L (21-32); Calcium, Blood 8.6 mg/dL (8.5-10.1); Chloride, Blood 99 mmol/L (98-108); Creatinine, Blood 4.37 mg/dL (0.40-1.00); Glomerular Filtration Rate 12 (60-); Glucose, Blood 179 mg/dL (70-99); Phosphorus, Blood 5.1 mg/dL (2.5-4.9); Potassium, Blood 5.2 mmol/L (3.5-5.5); Sodium, Blood 135 mmol/L (136-145)
--- NOTE | 2021-10-13 06:57 | NUR ---
[facility] PK DOWN AND CHARTS/ORDERS NOT ACCESSIBLE FROM [id number] - [id number] 10/12/21
--- NOTE | 2021-10-13 10:41 | NUR ---
CARE ASSUMPTION THIS RN ASSUMED CARE FROM LIVIA BERRY AT 0700. VSS. MED NO TELE. PATIENT IS ALERT AND ORIENTED X4. NEURO INTACT. PERRLA. PATIENT REPORTS CHRONIC NEUROPATHY TO LOWER EXTREMITIES. PATIENT REPORTS NO PAIN THIS AM. PATIENT REPORTS NO CHEST PAIN. EDEMA +1 TO LOWER EXTREMITIES. PATIENT REPORTS NO SHORTNESS OF BREATH. CLEAR LUNG SOUNDS. PATIENT REPROTS NO ABD PAIN. SOFT ACTIVE AND NONTENDER. PATIENT HAS BRUSIING T/O AND A PRESSURE SORE ON HER HEELS. PHOTOS IN CHART. SEE SHIFT ASSESSMENT FOR MORE DETAILS. PATIENT RECEIVED MORNIGN SLIDING SCALE INSULIN AND CARB COUNTING COVERAGE. SEE EMAR AND LAB SECTION. PATIENT WAS UP TO CHAIR THIS AM AND ATE BREAKFAST IN HER CHAIR. PATIENT THEN WENT TO DIALYSIS APROX 0925 VIA PCU BED. PATIENT WAS IN NO DISTRESS WHEN GOING DOWN TO DIALYSIS. MD HERNANDEZ WAS IN TO SEE PATIENT. PLAN OF CARE UP TO DATE AT THIS TIME. NO CHANGES.
--- NOTE | 2021-10-13 17:48 | NUR ---
SHIFT SUMMARY NO ACUTE CHANGES THIS SHIFT. PATIENT RECEIVED A BED BATH AND LINEN CHANGE. PATIENT IS SITTING IN THE BEDSIDE CHAIR EATING DINNER. VSS. PLAN OF CARE UP TO DATE. WILL CONTINUE TO MONITOR AND PROVIDE CARE UNTIL HAND OFF WITH NEXT SHIFT.
[2021-10-14 04:48] LABS: Hematocrit 27.9 % (33.0-51.0); Hemoglobin 8.8 g/dL (11.5-16.0)
[2021-10-14 05:00] LABS: Albumin, Blood 2.4 g/dL (3.4-5.0); Anion Gap 8 mmol/L (6-16); Blood Urea Nitrogen 47 mg/dL (8-24); Bun/Creatinine Ratio 15.2 (12.0-20.0); CO2, Blood 25 mmol/L (21-32); Calcium, Blood 9.1 mg/dL (8.5-10.1); Chloride, Blood 100 mmol/L (98-108); Creatinine, Blood 3.09 mg/dL (0.40-1.00); Glomerular Filtration Rate 18 (60-); Glucose, Blood 190 mg/dL (70-99); Magnesium, Blood 2.2 mg/dL (1.6-2.4); Phosphorus, Blood 4.8 mg/dL (2.5-4.9); Sodium, Blood 133 mmol/L (136-145)
--- NOTE | 2021-10-14 06:48 | NUR ---
NO ACUTE EVENTS OVERNIGHT. ALLAN'S URINE OUTPUT HAS INCREASED SIGNIFICANTLY OVER THE PAST 3 DAYS. SHE HAD 3 INCONTINENT EPISODES OVERNIGHT, EACH TIME THE BRIEF WAS SATURATED. ALLAN WANTED TO SLEEP IN THE CHAIR AND WAS COMPLIANT WITH WEARING HER CPAP FOR THE MAJORITY OF THE NIGHT. SHE REFUSED TO PUT IT BACK ON AFTER 04:30.
[2021-10-14 08:42] LABS: Glucose, Blood 306 mg/dL (70-99)
--- NOTE | 2021-10-14 12:27 | NUR ---
CARE NOTE PT BACK FROM DIALYSIS AND IN PT ROOM APPROX 1200. SHE IS NOW EATING LUNCH. SBP 162, WILL RECHECK IN 1 HR AND TREAT APPROPRIATE. OTHER VITAL SIGNS STABLE.
--- NOTE | 2021-10-14 14:25 | NUR ---
WOUND CARE NOTE THIS NURSE CHANGED HEEL PROTECTOR BANDAGE ON R HEEL, PAINTED WOUND ON R HEEL AND CALF WITH BETADINE PER ORDERS. WOUND ON L HEEL APPEARS MUCH IMPROVED COMPARED TO PHOTOS IN CHART. BILAT HEELS NOW FLOATED. PT IN RECLINER. CHAIR ALARM ON. CALL LIGHT WITHIN REACH.
--- NOTE | 2021-10-14 18:15 | NUR ---
SHIFT SUMMARY PT IS ALERT AND ORIENTED X 4 BUT AT TIMES WHEN SPEAKING IS NON-SENSICAL. SHE REPORTED PAIN IN BILATERAL FEET DURING SHIFT, SEE EMAR, WARM BLANKETS ALSO GIVEN. SHE DENIED FEELINGS OF CHEST PAIN/PRESSURE WELL NAUSEA. SHE DOES NOT HAVE IV ACCESS, OK PER EMAR ORDERS. VITAL SIGNS STABLE AND SHE IS ON RA W/ SPO2 >98%. SHE HAS BEEN IN RECLINER CHAIR T/O SHIFT. SHE WENT TO DIALYSIS THIS AM WELL. R SUBCLAVIAN CATH IS IN PLACE WITH NO APPARENT REDNESS, CATHETER IS NOT DRESSED, OK PER EMAR ORDERS. SHE HAS HAD GOOD PO INTAKE TODAY WITH NO HYPOGLYCEMIC EPISODES. SHE IS NOT ON TELE PER ORDERS. SHE HAS HAD 1 EPISODE OF URINE INCONTINENCE THIS AM AND WAS NOT ABLE TO REPORT SHE WAS WET. SEE PREVIOUS NOTES FOR WOUND CARE DURING SHIFT. NO OTHER ACUTE CHANGES NOTED. WILL CONTINUE TO MONITOR UNTIL REPORT GIVEN. PT NOW ON PHONE SPEAKING WITH HER MOTHER.
[2021-10-15 04:42] LABS: Hematocrit 27.3 % (33.0-51.0); Hemoglobin 8.6 g/dL (11.5-16.0)
--- NOTE | 2021-10-15 04:49 | NUR ---
PRECISION AIRCRAFT STRUCTURE ASSEMBLER SUMMARY PT HAS BEEN ALERT AND COMMUNICATING APPRORPIATELY THIS SHIFT. PT'S O2 SATS >90% ON RM AIR THIS SHIFT SHE REFUSED TO WEAR HER CPAP TONIGHT. BP MILDLY HIGH BUT STABLE THIS SHIFT. CBG AGAIN LOW THIS SHIFT IN THE 50'S BUT PT ALERT AND ASYMPTOMATIC, PT GIVEN JUICE AND BLOOD GLUCOSE IMPROVED. PT HAD ONE INCONTINENT URINE VOID THIS SHIFT. PT SLEPT FOR MOST OF THE NIGHT IN THE RECLINER SHE REFUSED TO GET BACK INTO THE BED. WILL REPORT TO ONCOMING RN.
[2021-10-15 05:04] LABS: Albumin, Blood 2.2 g/dL (3.4-5.0); Anion Gap 9 mmol/L (6-16); Blood Urea Nitrogen 46 mg/dL (8-24); Bun/Creatinine Ratio 14.4 (12.0-20.0); CO2, Blood 28 mmol/L (21-32); Calcium, Blood 8.5 mg/dL (8.5-10.1); Chloride, Blood 101 mmol/L (98-108); Glomerular Filtration Rate 17 (60-); Glucose, Blood 100 mg/dL (70-99); Phosphorus, Blood 5.2 mg/dL (2.5-4.9); Sodium, Blood 138 mmol/L (136-145)
--- NOTE | 2021-10-15 16:05 | NUR ---
PT'S MOTHER AT BEDSIDE. PT CALLED DR CASTANEDA WHO STATES SHE HAS A CHAIR TIME. DISCUSSED WITH CARE MANAGEMENT WHO STATES AWAITING INSURANCE APPROVAL FOR PLACEMENT. PT AND MOTHER STATE THEY WANT TO TAKE HER HOME AND CARE FOR HER THERE. CALL TO DR MUSE WHO STATES SHE WILL COME TALK TO PT AND HER FAMILY ABOUT CURRENT PLANS
--- NOTE | 2021-10-15 18:15 | NUR ---
SHIFT SUMMARY: DR MUSE CAME TO SEE PT AND MADE HER AND HER MOTHER AWARE OF THE PLAN FOR DISCHARGE. CARE MANAGEMENT STATES MEDICAID WAS APPROVED AND NOW WORKING ON HOME WITH CARE GIVERS VS FACILITY DISCHARGE. PT WORKED WITH THERAPY TODAY, AMBULATED IN HALLS. NO ACUTE NEEDS OR CONCERNS AT THIS TIME.
--- NOTE | 2021-10-16 05:10 | NUR ---
RECEIVING LEAD SUMMARY PT IS ALERT AND ORIENTED COMMUNICATING APPROPRIATELY W STAFF THIS SHIFT. PT AGAIN REMAINED IN THE RECLINER ALL NIGHT SHE REFUSED TO GET INTO THE BED. O2 SATS >90% ON RM AIR, PT HAD CPAP ON FOR MOST OF THE NIGHT. CBG'S ELEVATED THIS SHIFT BUT PT'S FAMILY HAD GIVEN PT A LOT OF SNACK PRIOR TO LEAVING AT SHIFT CHANGE. PT C/O PAIN IN HER LEGS THIS SHIFT BUT DENIED ANY NAUSEA. WILL REPORT TO ONCOMING RN.
[2021-10-16 05:44] LABS: Hemoglobin 8.5 g/dL (11.5-16.0)
[2021-10-16 06:18] LABS: Magnesium, Blood 2.1 mg/dL (1.6-2.4)
[2021-10-16 06:50] LABS: Albumin, Blood 2.7 g/dL (3.4-5.0); Anion Gap 13 mmol/L (6-16); Blood Urea Nitrogen 72 mg/dL (8-24); Bun/Creatinine Ratio 18.3 (12.0-20.0); CO2, Blood 21 mmol/L (21-32); Calcium, Blood 9.2 mg/dL (8.5-10.1); Chloride, Blood 97 mmol/L (98-108); Creatinine, Blood 3.94 mg/dL (0.40-1.00); Glomerular Filtration Rate 14 (60-); Glucose, Blood 406 mg/dL (70-99); Phosphorus, Blood 5.3 mg/dL (2.5-4.9); Sodium, Blood 131 mmol/L (136-145)
--- NOTE | 2021-10-16 07:30 | NUR ---
AM ASSESSMENT: Pt sitting up in recliner chair. A/O x4 this am. Denies pain at this time. BP and CBG elevated this am. Will medicate per orders. Plan for dialysis today around 0900. LS clear. HR reg. BT positive. Pulses palp. RLE with edema +2 edema in foot and leg, pulse is palp. R heel wound open to air, black escar scab noted. Pt K level is 6.0. Order for calcium glucanate. No IV access at this time. Will attempt to place, physician aware of this issue. Pt will also be dialyized today. Call light in reach. Will continue to monitor.
--- NOTE | 2021-10-16 09:20 | NUR ---
Pt taken to dialysis. Was unable to place IV and calcium glucanate not given. Physician aware. Will await return from dialysis.
--- NOTE | 2021-10-16 17:27 | NUR ---
SHIFT SUMMARY: Pt up in recliner chair finishing dinner. CBG came down well this shift with last cbg or 108. BP still slightly HTN, will continue to treat per orders. Pt has been treated for pain in her legs per orders. Pt had dialysis today and tolerated well. Worked well with PT and was able to ambulate in davis. Stable at this time. Call light in reach. Will report to night RN.
--- NOTE | 2021-10-17 05:05 | NUR ---
PATCH MACHINE OPERATOR SUMMARY PT IS ALERT AND ORIENTED COMMUNICATING APPROPRIATELY W STAFF THIS SHIFT. PT HAD A 2100 CBG OF 43 TO WHICH SHE WAS ASYMPTOMATIC SO SHE WAS GIIVEN A SANDWHICH AND 4 OZ OF APPLE JUICE WHICH BROUGHT HER BLOOD GLUCOSE TO THE 200'S. PT BP WNL AND STABLE THIS SHIFT. O2 SATS >92% ON RM AIR SHE REFUSED TO WEAR HER CPAP FOR MORE THEN 20 MIN AT A TIME. PT WAS ABLE TO SLEEP COMFORTABLY FOR MOST OF THE NIGHT. WILL REPORT TO ONCOMING RN.
[2021-10-17 05:12] LABS: Hematocrit 26.2 % (33.0-51.0); Hemoglobin 8.3 g/dL (11.5-16.0)
[2021-10-17 06:01] LABS: Albumin, Blood 2.7 g/dL (3.4-5.0); Anion Gap 6 mmol/L (6-16); Blood Urea Nitrogen 48 mg/dL (8-24); CO2, Blood 29 mmol/L (21-32); Calcium, Blood 8.9 mg/dL (8.5-10.1); Chloride, Blood 97 mmol/L (98-108); Glomerular Filtration Rate 19 (60-); Glucose, Blood 297 mg/dL (70-99); Magnesium, Blood 2.1 mg/dL (1.6-2.4); Phosphorus, Blood 4.6 mg/dL (2.5-4.9); Potassium, Blood 4.8 mmol/L (3.5-5.5); Sodium, Blood 132 mmol/L (136-145)
--- NOTE | 2021-10-17 08:51 | NUR ---
AM NOTE: ALERT AND ORIENTED. NUMBNESS/TINGLING TO BILATERAL LOWER EXTREMITIES THAT CAUSES PAIN, MEDICATED PER EMAR THIS AM. DENIES HEADACHE. PERRLA. OVERALL WEAK, ABLE TO STAND AND WALK WITH WALKER AND GAIT BELT. ONE PERSON ASSIST. UP IN RECLINER. BED BATH GIVEN THIS AM. ON ROOM AIR SATING ABOVE 94%. LUNGS SOUNDING CLEAR. NO COUGH. NO TELE. DENIES CHEST PAIN/PRESSURE. ELEVATED BP, MORN MEDS GIVEN, WILL RECHECK BP AND ASSESS. NO DIALYSIS TODAY. DIALYSIS CATH TO RIGHT UPPER CHEST, NO DRESSING. CAMERA AND BED/CHAIR ALARMS ON. DENIES ABDOMINAL PAIN/NAUSEA. INSULIN PER BREAKFAST WELL ACHS BLOOD SUGAR CHECKS. RIGH HEEL PRESSURE ULCER CLEANED AND DRESSED PER WOUND CARE ORDERS. CALL LIGHT IN REACH. DENIES NEEDS AT THIS TIME. WILL CONTINUE TO MONITOR.
--- NOTE | 2021-10-17 11:37 | NUR ---
PATIENT WORKED WITH PT THIS AFTERNOON, WALKING WITH FWW WITH GAIT BELT. PT ABLE TO TAKE PATIENT OUTSIDE IN WHEELCHAIR. 1200 VITALS WNL. PATIENT DENIES PAIN. UP IN RECLINER TALKING WITH FAMILY ON PHONE.
--- NOTE | 2021-10-17 14:08 | NUR ---
Spiritual Care Visit. Pt. is sitting up in recliner and welcomes my visit. Pt. is pleasant and rapport is quickly re-established. Pt. verbalizes that she is planning to discharge for home in a few days. Pt. displays evidence of being confidant and encouraged. Discussed many life issues. Pt. displays evidence of trust and agreement. Prayed with Pt. Pt. verbalized gratitude for the spiritual care visit.
--- NOTE | 2021-10-17 15:50 | NUR ---
DR. MANLEY BY IN PERSON, UPDATED ABOUT LOW BLOOD SUGAR THIS AFTERNOON AND DISCUSSED PAST COUPLE OF DAYS BLOOD SUGAR TRENDS WELL TIMES INSULIN WAS HELD. ORDERS FOR THIS RN TO CHANGE MORNING LONG ACTING INSULIN TO [address] UPON RECHECKING BLOOD SUGAR THIS AFTERNOON UP TO 119 FROM 34. VITAL SIGNS STABLE. WILL CONTINUE TO MONITOR.
--- NOTE | 2021-10-17 18:02 | NUR ---
SHIFT SUMMARY: SEE PREVIOUS NOTES FOR MORE DETAIL UPDATES. FLUCUATING BLOOD SUGAR THIS SHIFT. EATING DINNER AT THIS TIME. FAMILY AT BEDSIDE. WORKED WITH PT/OT. UP TO BSC WITH ONE PERSON ASSIST. ABLE TO SIT UP IN RECLINER FOR AT LEAST FOUR HOURS. MEDICATED FOR LEG PAIN NEEDED. RIGHT HEAL CLEANED AND DRESSED PER WOUND CARE ORDERS. VITAL SIGNS REMAINS STABLE. DENIES NEEDS AT THIS TIME. CALL LIGHT IN REACH.
[2021-10-18 05:08] LABS: Hematocrit 27.4 % (33.0-51.0); Hemoglobin 8.6 g/dL (11.5-16.0)
[2021-10-18 05:30] LABS: Albumin, Blood 2.6 g/dL (3.4-5.0); Anion Gap 10 mmol/L (6-16); Blood Urea Nitrogen 69 mg/dL (8-24); CO2, Blood 27 mmol/L (21-32); Calcium, Blood 8.8 mg/dL (8.5-10.1); Chloride, Blood 96 mmol/L (98-108); Creatinine, Blood 4.07 mg/dL (0.40-1.00); Glomerular Filtration Rate 13 (60-); Glucose, Blood 345 mg/dL (70-99); Magnesium, Blood 2.2 mg/dL (1.6-2.4); Phosphorus, Blood 4.6 mg/dL (2.5-4.9); Potassium, Blood 5.4 mmol/L (3.5-5.5); Sodium, Blood 133 mmol/L (136-145)
--- NOTE | 2021-10-18 06:29 | NUR ---
NOC SHIFT SUMMARY PT SLEPT WELL OVERNIGHT, VITALS PER PT TREND, NO COMPLAINTS OF PAIN OR DISCOMFORT. CBGS IN 200S OVERNIGHT, SPOT CHECKED A FEW TIMES. LONG ACTING INSULIN GIVEN. PT UWA X1. WILL CONTINUE TO MONITOR AND PASS ON TO DAY RN
--- NOTE | 2021-10-18 11:50 | NUR ---
CARE ASSUMPTION THIS RN ASSUMED CARE FROM ANA RN AT 0700. VSS. PATIENT IS MEDICAL STATUS NO TELE. PATIENT IS ALERT AND ORIENTED X4. PERRLA. PATIENT REPORTS NO CHEST PAIN/PRESSURE. STRONG RADAIL PULSES AND PEDIS. PATIENT REPROTS NO SHORNTESS OF BREATH. CELAR LUNG SOUNDS. PATEINT ABD IS ACTIVE AND NONTENDER. SEE SHIFT ASSESSMENT FOR FURTHER DETAILS. MD BERMUDEZ IN TO SEE PATIENT THIS AM AND DISCUSSED PLAN OF CARE. PLAN OF CARE UP TO DATE. PATIENT USES CALL LIGHT APPRORPAITELY. PATEINT RECEVED DIALYSIS IN HER ROOM TODAY. CALL LIGHT WITHIN REACH AND SITTING IN BEDSIDE CHAIR.
--- NOTE | 2021-10-18 14:02 | NUR ---
UPDATE PATIENT WAS CRYING OUT AND THIS RN WENT IN TO SEE WHAT WAS GOING ON. PATIENT JUST GOT OFF THE PHONE WITH HER MOM AND WAS UPSET BECAUSE SHE WANTS TO GO HOME. THIS RN PROVIDED THERPAUETIC COMMUNICATION AND ACTIVE LISTENING. THIS RN EDUCATED THE PATIENT ON THE PLAN, THAT THEY ARE AWAITING FOR INSURANCE TO APPROVE HER TO HAVE CAREGIVERS AT HER HOUSE. PATIENT VERABILZED UNDERSTANDING BUT WAS STILL UPSET. PATIENT VERABLIZED MISSING HER DAUGHTER AND HER FAMILY. THIS RN USED THERPAUETIC COMMUNICATION AND AGREED IT WOULD BE DIFFICULT BEING FROM HOME FOR SO LONG, BUT WE WANT TO ENSURE WHEN YOU GO HOME IT IS SAFE AND THAT YOUR BLOOD SUGAR IS MONITORED PROPERLY. THIS RN PROVIDED EDUCATION ON INSULIN, CHECKING BLOOD SUGAR, WHAT FOODS TO EAT AND NOT EAT. THIS RN WILL CONTINUE TO BE AVAILABLE TO THE PATIENT SHE NEEDS.
--- NOTE | 2021-10-18 14:57 | NUR ---
EDUCATION THIS RN PROVIDED EDUCATION TO THE PATIENT ON HYPERGLYCEMIA, HYPOGLYCEMIA, DIABTES, AND HOW TO CHECK YOUR BLOOD GLUCOSE LEVELS. THIS RN PROVIDED PRINTED HANDOUTS TO THE PATIENT ON THESE TOPICS. THIS RN HAD THE PATIENT VERBALIZED SIGNS AND SYMPTOMS OF LOW BLOOD SUGAR AND HIGH BLOOD SUGAR. THE PATIENT VERBALIZED HOW TO TAKE HER BLOOD SUGAR. THIS RN WILL EDUCATE THE MOM OF THE PATIENT WHEN SHE GETS HERE WELL.
--- NOTE | 2021-10-18 16:56 | NUR ---
SHIFT SUMMARY PATIENT NEURO REMAINS INTACT. NO ACUTE CHANGES THIS SHIFT. SEE PERVIOUS NOTES. THIS RN PROVIDED EDUCATION TO PATIENT MOM AND HAD MOM TEACH BACK THE INFORMATION THAT THIS RN EDUCATED [facility] PATIENT AND PATIENTS MOM ON. PATIENT IS IN MUCH BETTER SPIRITS NOW THAT FAMILY CAME BY. PLAN OF CARE UP TO DATE. CALL LIGHT WITHIN REACH. WILL CONTINUE TO MONITOR AND PROVIDE CARE UNTIL HAND OFF WITH NEXT SHIFT.
[2021-10-19 04:40] LABS: Hematocrit 29.1 % (33.0-51.0); Hemoglobin 9.2 g/dL (11.5-16.0)
[2021-10-19 04:59] LABS: Albumin, Blood 2.5 g/dL (3.4-5.0); Anion Gap 8 mmol/L (6-16); Blood Urea Nitrogen 45 mg/dL (8-24); Bun/Creatinine Ratio 15.3 (12.0-20.0); CO2, Blood 29 mmol/L (21-32); Calcium, Blood 8.9 mg/dL (8.5-10.1); Chloride, Blood 98 mmol/L (98-108); Creatinine, Blood 2.94 mg/dL (0.40-1.00); Glomerular Filtration Rate 19 (60-); Glucose, Blood 101 mg/dL (70-99); Magnesium, Blood 2.1 mg/dL (1.6-2.4); Potassium, Blood 4.4 mmol/L (3.5-5.5); Sodium, Blood 135 mmol/L (136-145)
--- NOTE | 2021-10-19 05:40 | NUR ---
NOC SHIFT SUMMARY PT SLEPT WELL OVERNIGHT, VITALS PER PT TREND, COMPLAINTS OF PAIN X1 RESOLVED WITH PO PAIN MEDICATIONS. BLOOD GLUCOSE 80S-300S OVERNIGHT. UWA1-2 ASSIST TO BEDSIDE COMMODE. WILL CONTINUE TO MONITOR AND PASS ON TO DAY RN
--- NOTE | 2021-10-19 16:54 | NUR ---
CARE ASSUMPTION/SHIFT SUMMARY THIS RN ASSUMED CARE AT 0700 ANA BERRY. PATIENT IS ALERT AND ORIENTED X4. NEURO INTACT. PATIENT LUNG SOUNDS CLEAR. NO SHORTNESS OF BREATH. PATIENT REPORTS NO PAIN. PATIENT REPORTS NO CHEST PAIN/PRESSURE. STRONG RADAIL AND PEDIS PULSES BILATERALLY. +2 EDEMA IN LOWER EXTREMITIES. ABD IS NONTENDER AND ACTIVE. PATIENT CALLS WHEN NEEDING TO USE THE BEDSIDE COMODE. PATIENT RIGHT HEEL CLEANED AND WOUND CARE PROVIDED. HEEL PROTECTORS IN PLACE. SEE SHIFT ASSESSMENT FOR FURTHER ASSESSMENT. MD MUSE AND LANA CAME IN TO SEE PATIENT THIS AM. DISCUSSED THE PLAN OF CARE WITH THE PATIENT. PATIENT VERABLIZED UNDERSTANDING OF THE PLAN. THIS RN PROVIDED CONTINUED EDUCATION ON BLOOD SUGAR CHECKS AND WHEN TO GIVE COVERAGE. PATIENT FAMILY CAME INTO SEE PATIENT TODAY. DAUGHTER IN TO SEE PATIENT. HAD TO REMIND THEM TO NOT RUN THE HALLS AND IF THIS CONTINUED THEY WOULD HAVE TO LEAVE THE HOSPITAL IF THEY COULDNT RESPECT THE RULES. STAYED IN ROOM SINCE THEN. CALL LIGHT WITHIN REACH AND BED IN LOWEST POSITION. WILL CONINTUE TO MONITOR AND PROVIDE CARE UNTIL HAND OFF WITH NEXT SHIFT.
[2021-10-20 03:57] LABS: Hematocrit 26.7 % (33.0-51.0); Hemoglobin 8.7 g/dL (11.5-16.0)
[2021-10-20 04:14] LABS: Albumin, Blood 2.4 g/dL (3.4-5.0); Anion Gap 8 mmol/L (6-16); Blood Urea Nitrogen 61 mg/dL (8-24); Bun/Creatinine Ratio 15.8 (12.0-20.0); CO2, Blood 29 mmol/L (21-32); Calcium, Blood 8.8 mg/dL (8.5-10.1); Chloride, Blood 100 mmol/L (98-108); Creatinine, Blood 3.85 mg/dL (0.40-1.00); Glomerular Filtration Rate 14 (60-); Glucose, Blood 79 mg/dL (70-99); Magnesium, Blood 2.1 mg/dL (1.6-2.4); Phosphorus, Blood 4.9 mg/dL (2.5-4.9); Potassium, Blood 4.7 mmol/L (3.5-5.5); Sodium, Blood 137 mmol/L (136-145)
--- NOTE | 2021-10-20 05:46 | NUR ---
SHIFT SUMMARY MEDICAL NO TELE STATUS PATIENT ALERT AND ORIENTED. VSS. ON RA WHILE AWAKE, CPAP WHILE SLEEPING. NO COMPLAINTS OF CHEST PAIN OR SOB. PATIENT SITTING UP TO CHAIR FOR THE ENTIRE SHIFT. STANDBY ASSIST TO BEDSIDE COMMODE. MEDICATED PER EMAR FOR PAIN. ABLE TO MAKE NEEDS KNOWN AND USES CALL LIGHT APPROPRIATELY. NO OTHER SIGNIFICANT CHANGES THIS SHIFT, WILL REPORT TO DAY SHIFT RN.
--- NOTE | 2021-10-20 17:37 | NUR ---
SHIFT SUMMARY PT HAS BEEN RESTING IN ROOM THROUGHOUT THE DAY. PT TRANSFERRED FROM CHAIR TO COMMODE AND BACK BY A ONE-PERSON ASSIST. PT HAS ASKED QUESTIONS ABOUT THE PLAN OF CARE AND THEIR CURRENT PROGRESS, THEY WERE UPDATED ON THE CURRENT SEARCH FOR BED AVAILABILITY. THERE WERE NO ACUTE CHANGES IN PATIENT'S CONDITION.
[2021-10-21 04:35] LABS: Hematocrit 27.5 % (33.0-51.0); Hemoglobin 8.9 g/dL (11.5-16.0)
[2021-10-21 04:57] LABS: Albumin, Blood 2.4 g/dL (3.4-5.0); Anion Gap 8 mmol/L (6-16); Blood Urea Nitrogen 80 mg/dL (8-24); Bun/Creatinine Ratio 17.7 (12.0-20.0); CO2, Blood 27 mmol/L (21-32); Calcium, Blood 8.8 mg/dL (8.5-10.1); Chloride, Blood 100 mmol/L (98-108); Creatinine, Blood 4.53 mg/dL (0.40-1.00); Glomerular Filtration Rate 11 (60-); Glucose, Blood 121 mg/dL (70-99); Magnesium, Blood 2.2 mg/dL (1.6-2.4); Phosphorus, Blood 5.6 mg/dL (2.5-4.9); Potassium, Blood 5.4 mmol/L (3.5-5.5); Sodium, Blood 135 mmol/L (136-145)
--- NOTE | 2021-10-21 07:00 | NUR ---
SHIFT SUMMARY MED NO TELE STATUS PATIENT ALERT AND ORIENTED, VSS, PATIENT ON RA WHILE AWAKE WITH O2 SAT >90%. PATIENT ONLY TOLERATING CPAP FOR APPROXIMATLEY 3 HOURS AT NIGHT. DENIES CHEST PAIN/PRESSURE. STANDBY ASSIST TO BEDSIDE COMMODE, ADEQUATE OUTPUT. MEDICATED PER EMAR FOR PAIN. ABLE TO MAKE NEEDS KNOWN TO STAFF. NO OTHER SIGNIFICANT CHANGES, WILL REPORT TO DAY SHIFT RN.
--- NOTE | 2021-10-21 12:28 | NUR ---
CARE NOTE PT BACK IN PCU ROOM APPROX. 1220, SHE IS EATING LUNCH IN CHAIR.
--- NOTE | 2021-10-21 15:04 | NUR ---
WOUND CARE WOUND ON RIGHT HEEL CLEANED W/ WOUND CLEANSER, PAINTED W/ BETADINE, AND COVERED WITH HEEL PROTECTOR. HEELS FLOATED. PT IN CHAIR.
--- NOTE | 2021-10-21 17:10 | NUR ---
SHIFT SUMMARY PT IS ALERT AND ORIENTED X 4 BUT WILL AT TIMES BE NON-SENSICAL. SHE IS PLEASANT AND COOPERATIVE WITH CARE, SPO2 99% VIA ROOM AIR, BP AT 1600 WAS ELEVATED, SEE REVIEW AND EMAR, SBP UPON LAST ASSESSMENT 164 BUT HAS OTHERWISE BEEN STABLE DURING SHIFT. SHE HAS DENIED FEELINGS OF CHEST PAIN/PRESSURE WELL FEELINGS OF NAUSEA/VOMITTING. SHE DID REPORT PAIN DURING FIRST PART OF SHIFT IN BILATERAL LEGS, REPOSITIONING PROVIDED, ALSO SEE EMAR. SHE ALSO REPORTED FEELING LIKE HER "BUTT HURTS LIKE I HAVE TO GO BUT CAN'T." MEDICATION GIVEN PER EMAR. PT WAS EDUCATED THAT ONSET OF MEDICATION IS APPROX 6-12 HOURS SO IT MAY STILL TAKE SOME TIME TO HAVE A BM. HEEL PROTECTOR ON RIGHT HEEL IN PLACE, SEE PREVIOUS WOUND CARE NOTE. SHE HAS BEEN UP TO BEDSIDE COMMODE ONCE DURING SHIFT. PHYSICAL THERAPY WORKED WITH PT TODAY AND SHE WAS ABLE TO AMBULATE A IN [place]. PT REPORTED FEELING FATIGUED AFTERWARDS. HD THIS AM FROM 0900 TO APPROX 1140. NO OTHER ACUTE CHANGES NOTED. CALL LIGHT IN REACH, PERSONAL BELONGINGS WITHIN REACH, CHAIR ALARM ON.
--- NOTE | 2021-10-21 17:32 | NUR ---
CARE NOTE THIS NURSE CALLED DR. MUSE BUT SPOKE WITH DR. CONTRERAS REGARDING ELEVATED SBP IN 170'S AFTER ALREADY GIVING PRN HYDRALAZINE, SEE EMAR. NO NEW ORDERS GIVEN. CALL PLACED 0072.
--- NOTE | 2021-10-22 05:53 | NUR ---
SHIFT SUMMARY MED NO TELE STATUS PATIENT ALERT, ORIENTED x3-4, FORGETFUL AT TIMES BUT IS ABLE TO MAKE NEEDS KNOWN TO STAFF. VSS, PATIENT REMAINS ON RA WITH O2 SAT >90%. PATIENT DENIES CP/SOB T/O NIGHT. STANDBY ASSIST TO BSC, ADEQUATE OUTPUT THIS SHIFT. 1000ml FLUID RESTRICTION IN PLACE PER DR. CASTANEDA, SEE UPDATED ORDERS. MEDICATED PER EMAR FOR PAIN. NO OTHER SIGNIFICANT CHANGES THIS SHIFT. WILL REPORT TO DAY SHIFT RN.
--- NOTE | 2021-10-22 08:19 | NUR ---
AM NOTE... ASSUMED CARE OF PT AT 0700, THE PT IS A&Ox2 WITH CONFUSION AT TIMES, THE PT'S VS STABLE. PT HAS 2+ EDEMA NOTED TO HER BILATERAL FEET AND 1+ TO HER LEGS. PT'S L/S CLEAR T/O DIM IN THE BASES. BT PRESENT AND HYPERACTIVE. THE PT IS FIXATED ON HER PAIN PILLS THIS MORNING, KEEPS ASKING THIS RN WHEN SHE CAN HAVE THEM, KEEPS ASKING WHY SHE IS UNABLE TO TAKE THEM EARLY. PT IS NOT HAVING DIALYSIS TODAY. THE PT IS UP IN THE CHAIR FOR BREAKFAST. CALL LIGHT IN REACH, CHAIR ALARM IS ON WILL CONTINUE TO MONITOR.
--- NOTE | 2021-10-22 17:42 | NUR ---
SHIFT SUMMARY.... NO ACUTE NEGATIVE CHANGES NOTED THIS SHIFT. THE PT HAS BEEN HYPERTENSIVE AND MEDICATED PER EMAR WITH GOOD RESULTS. THE PT HAS BEEN UP IN THE CHAIR MOST OF THIS SHIFT. SHE HAD AN EXTRA LARGE HARD BM IN THE BSC THIS AM. THE PT HAS BEEN FIXATED ON HER PAIN MEDICATION MOST OF THIS SHIFT. THE PT HAS BEEN ANXIOUS AND TEARFUL ABOUT D/C'ing TO A SNF/LTC. CALL LIGHT IN REACH WILL CONTINUE TO MONITOR.
--- NOTE | 2021-10-22 19:15 | NUR ---
ASSUMPTION OF CARE PT SITTING UP IN CHAIR, FAMILY IN ROOM. PT HAS PLEASANT AFFECT, ANSWERS QUESTIONS APPROPRIATELY. SHE DOES REPEAT THE SAME QUESTIONS MULTIPLE TIMES. SHE IS COOPERATIVE WITH CARE. VSS AT THIS TIME. SEE SHIFT ASSESSMENT.
--- NOTE | 2021-10-22 22:00 | NUR ---
UPDATE PT REPORTS FEELING LIKE HER "GLUCOSE IS LOW". CBG CHECKED, 84. TRENDING DOWN SINCE PREVIOUS CBG. PT GIVEN HALF SANDWICH AND CHEESE.
--- NOTE | 2021-10-23 00:11 | NUR ---
UPDATE PT SITTING IN CHAIR. USES CALL LIGHT APPROPRIATELY. SHE HAS BEEN SLEEPING ON AND OFF THROUGHOUT SHIFT. COLLAR PADDER BLINDSTITCH ASSISTED PT TO BEDSIDE COMMODE. PT ON MENSES. PT DENIES WANTING TO LIE IN BED. PT REPOSITIONED IN RECLINER WITH FEET ELEVATED. VSS AT THIS TIME.
[2021-10-23 04:16] LABS: Hemoglobin 7.8 g/dL (11.5-16.0)
[2021-10-23 04:45] LABS: Albumin, Blood 2.4 g/dL (3.4-5.0); Anion Gap 12 mmol/L (6-16); Blood Urea Nitrogen 62 mg/dL (8-24); Bun/Creatinine Ratio 15.7 (12.0-20.0); CO2, Blood 23 mmol/L (21-32); Calcium, Blood 8.6 mg/dL (8.5-10.1); Chloride, Blood 100 mmol/L (98-108); Creatinine, Blood 3.94 mg/dL (0.40-1.00); Glomerular Filtration Rate 14 (60-); Glucose, Blood 304 mg/dL (70-99); Magnesium, Blood 2.2 mg/dL (1.6-2.4); Phosphorus, Blood 4.9 mg/dL (2.5-4.9); Potassium, Blood 5.3 mmol/L (3.5-5.5); Sodium, Blood 135 mmol/L (136-145)
--- NOTE | 2021-10-23 05:18 | NUR ---
SHIFT SUMMARY PT HAS SLEPT ON AND OFF THROUGHOUT THE NIGHT. SHE HAS REMAINED UP IN THE RECLINER ALL SHIFT PER REQUEST, DENIED OFFERS TO GET IN BED TO SLEEP. SHE HAS A PLEASANT AFFECT, CONFUSED WITH DETAILS AT TIMES AND REPEATS SELF. OCCASIONALLY SLOW TO RESPOND IN CONVERSATION. SHE REFUSED HER CPAP TONIGHT. SHE HAS USED THE BEDSIDE COMMODE SEVERAL TIMES THIS SHIFT WITH MODERATE 1-2 PERSON ASSIST. SHE STARTED HER MENSES, ATTENDS AND PAD IN PLACE. VSS THROUGHOUT SHIFT. NO ACUTE CHANGES. CBG WIDELY VARIED THROUGHOUT SHIFT. FLUID RESTRICTION IN PLACE, PT DRANK 100ML THIS SHIFT. CHAIR ALARM IN PLACE, CALL LIGHT WITHIN REACH. WILL REPORT TO ONCOMING RN.
--- NOTE | 2021-10-23 10:35 | NUR ---
PT IN DIALYSIS, MANAGER PRINT CALLS TO UPDATE STAFF THAT PT REQUESTING PAINMEDICATION, MANAGER PRINT UPDATED THAT PT IS NOT ABLE TO HAVE ADDITIONAL NORCO UNTIL 1400 TODAY, REQUEST NOW FOR TYLENOL WHICH WILL BE ADMINISTERED
--- NOTE | 2021-10-23 17:12 | NUR ---
PT ALERT, HER MENTATION WAXES AND WANES. SHE OFTEN APPEARS WITH CHILD LIKE MENTATION, SHOUTING OUT "COME PLAY WITH ME". PT REQUESTING NARCOTICS FREQUENTLY, MORE FREQUENT THAN THEY ARE ORDRED, FOR 9-10/10 PAIN, PAIN REPORT SEEMS DISPROPORTIONATE. RLE EDEMA 2+ NOTED, NO WEEPING FROM LEG. PT WAS ABLE TO WALK IN THE [place] WITH PHYSICAL THERAPY TODAY WITH SLOW STEADY GAIT. BLOOD SUGARS HAVE REQUIRED COVERAGE T/O THE DAY. IT IS NOTED THAT PT IS NOT CONSUMING THE PROTEINS ON HER PLATE, SEEMS TO BE EXCLUSIVELY EATING THE CARBOHYDRATES ON PLATE. PT EXPRESSES THAT SHE DOES NOT WISH TO BE PLACED IN CARE FACILITY AND WISHES TO GO HOME WITH FAMILY.
[2021-10-24 03:48] LABS: Hematocrit 25.8 % (33.0-51.0); Hemoglobin 8.3 g/dL (11.5-16.0)
[2021-10-24 04:09] LABS: Albumin, Blood 2.5 g/dL (3.4-5.0); Anion Gap 7 mmol/L (6-16); Blood Urea Nitrogen 42 mg/dL (8-24); Bun/Creatinine Ratio 13.4 (12.0-20.0); CO2, Blood 30 mmol/L (21-32); Calcium, Blood 8.9 mg/dL (8.5-10.1); Chloride, Blood 98 mmol/L (98-108); Creatinine, Blood 3.14 mg/dL (0.40-1.00); Glomerular Filtration Rate 18 (60-); Glucose, Blood 111 mg/dL (70-99); Magnesium, Blood 2.2 mg/dL (1.6-2.4); Phosphorus, Blood 4.2 mg/dL (2.5-4.9); Potassium, Blood 4.3 mmol/L (3.5-5.5); Sodium, Blood 135 mmol/L (136-145)
--- NOTE | 2021-10-24 05:20 | NUR ---
SHIFT SUMMARY ASSUMED CARE OF PT AT 1900. PT IS A/OX3-4. HEART SOUNDS REGULAR. LUNG SOUNDS CLEAR. PT USED BSC WITH 1P ASSIST. URINE CLOUDY. PT SLEPT IN CHAIR ALL NIGHT. PT BLOOD SUGAR WAS LOW THIS EVENING, PT RESPONDED WELL TO SNACK. PT WONDERING IF SHE IS GOING HOME TODAY. PT WAS TEARFUL AT START OF SHIFT, ASKING FOR PAIN MEDICATION FOR HER FEET; MEDICATED PER EMAR. NO ACUTE CHANGES T/O THE NIGHT.
--- NOTE | 2021-10-24 12:57 | NUR ---
Spiritual Care Visit. Pt. is awake finishing her lunch in a recliner and welcomes my visit. Pt. is unsettled about a mtg. her mom is having with the hospital concerning the plausibility of her discharge home. Listen empathically with a calming and encouraging presence. Pt. didsplays evidence of engagement and awareness of her condition and is verbalizing a committment to PT and monitoring her diet and blood sugars. Nurses arrive to make diet assessment and give insulin. Continue to establish rapport. [place] with Pt. Pt. verbalizes gratitude for the spiritual care visit.
--- NOTE | 2021-10-24 16:23 | NUR ---
SHIFT SUMMARY PATIENT IS CALM AND COOPERATIVE WITH CARE DURING THIS SHIFT. VSS. PATIENT WAS BRIEFLY CONFUSED AND ASKED REPETITIVE QUESTIONS DURING ONE INTERACTION DURING THIS SHIFT BUT HAS OTHERWISE BEEN A&O X4. SHE CONTINUES TO ASK WHEN SHE IS GOING HOME. THERAPEUTIC COMMUNICATION PROVIDED WITH EXPLANATIONS OF THE PROVIDER AND CARE TEAMS PLAN TO ENSURE SHE WILL BE SAFE AND MAINTAIN HER HEALTH PROGRESS DURING HER STAY AND NOT LOSE THE PROGRESS WHEN SHE GOES HOME. PATIENT VERBALIZED UNDERSTANDING. PATIENT WENT TO DIAYSIS THIS AM AT 0900; TOLERATING WELL. THE OUT AND OUT CIGAR MAKER HAND AND PHYSICAL THERAPY VISITED WITH HER AND AGREED SHE WAS COOPERATIVE WITH CARE. THE PATIENT WAS ABLE TO AMBULATE IN THE HALLWAY WITH PHYSICAL THERAPY. PATIENT CONTINUES TO BE A ONE PERSON STAND BY ASSIST TO THE BEDSIDE COMMODE AND CALLS APPROPRIATELY FOR HELP. CHAIR ALARM IN PLACE. PATIENT CONTINUES TO RATE HER PAIN FROM 8-10; MEDICATING PER EMAR. FAMILY AT BEDSIDE CURRENTLY. NO ACUTE CHANGES DURING THIS SHIFT. DRESSING CHANGED ON RIGHT HEEL AND DRESSING IS C/D/I. PATIENT IS UP IN CHAIR CURRENTLY WITH BED ALARM IN PLACE. CALL LIGHT IN REACH. FREQUENT CHECKS FOR SAFETY. WILL CONTINUE TO MONITOR UNTIL SHIFT CHANGE AT 1900.
--- NOTE | 2021-10-24 17:58 | NUR ---
PT'S EVENING CARB COUNT WAS BELOW 10, CARB COUNT DOSE OF INSULIN WAS HELD FOR THIS REASON. GLUCOSE READING WAS 109 THIS EVENING. PT APPEARS TO HAVE BEEN RECEIVED NUTRITION EDUCATION WELL THIS AM WHEN MENU WAS COMPLETED WITH THIS RN WITH EXTENSIVE DIETARY EDUCATION.
--- NOTE | 2021-10-25 06:04 | NUR ---
SHIFT SUMMARY ASSUMED CARE OF PT AT 1900. PT IS A/OX4. HEART SOUNDS REGULAR. LUNG SOUNDS CLEAR. PT WAS A 1P ASSIST TO BSC. PT WORRIED ABOUT BLOOD SUGAR BEING LOW DURING THE NIGHT BUT IT WAS HIGH THIS AM. NO OTHER CHANGES. PT WISHES TO GO HOME.
[2021-10-25 06:21] LABS: Hematocrit 26.2 % (33.0-51.0); Hemoglobin 8.2 g/dL (11.5-16.0)
[2021-10-25 06:34] LABS: Albumin, Blood 2.6 g/dL (3.4-5.0); Anion Gap 14 mmol/L (6-16); Blood Urea Nitrogen 40 mg/dL (8-24); Bun/Creatinine Ratio 13.6 (12.0-20.0); CO2, Blood 22 mmol/L (21-32); Chloride, Blood 97 mmol/L (98-108); Creatinine, Blood 2.94 mg/dL (0.40-1.00); Glomerular Filtration Rate 19 (60-); Glucose, Blood 407 mg/dL (70-99); Magnesium, Blood 2.1 mg/dL (1.6-2.4); Phosphorus, Blood 3.9 mg/dL (2.5-4.9); Potassium, Blood 4.4 mmol/L (3.5-5.5); Sodium, Blood 133 mmol/L (136-145)
[2021-10-26 04:08] LABS: Hematocrit 28.2 % (33.0-51.0)
[2021-10-26 04:29] LABS: Albumin, Blood 2.7 g/dL (3.4-5.0); Anion Gap 9 mmol/L (6-16); Blood Urea Nitrogen 37 mg/dL (8-24); Bun/Creatinine Ratio 13.9 (12.0-20.0); CO2, Blood 27 mmol/L (21-32); Calcium, Blood 9.1 mg/dL (8.5-10.1); Chloride, Blood 98 mmol/L (98-108); Creatinine, Blood 2.66 mg/dL (0.40-1.00); Glomerular Filtration Rate 22 (60-); Glucose, Blood 102 mg/dL (70-99); Magnesium, Blood 2.1 mg/dL (1.6-2.4); Phosphorus, Blood 3.5 mg/dL (2.5-4.9); Sodium, Blood 134 mmol/L (136-145)
--- NOTE | 2021-10-26 05:57 | NUR ---
SHIFT SUMMARY ASSUMED CARE OF PT AT 1900. PT IS A/OX4. PT C/O PAIN IN HER R LEG, ICE PACK APPLIED AND DECREASED REDNESS. PT REQUESTED PAIN MEDCATION. PT WAS WORRIED ABOUT BLOOD SUGARS DURING THE NIGHT AFTER GETTING INSULIN. AT 0230 CHECK GLUCOSE WAS 62, SNACK GIVEN AND GLUCOSE WENT UP TO 102 THIS AM. NO OTHER COMPLAINTS T/O THE NIGHT.
--- NOTE | 2021-10-26 09:21 | NUR ---
AM NOTE: PATIENT ALERT AND ORIENTED. OVERALL SLIGHTLY WEAK, USING WALKER AND GAIT BELT TO TRANSFER/WALK. COMPLAINS OF NUMBNESS/TINGLING TO LEGS. MEDICATED NEEDED WITH NORCO. RIGHT LEG SWOLLEN AND SLIGHTLY RED, ELEVATED AT THIS TIME. ON ROOM AIR, LUNGS SOUNDING CLEAR. NO TELE. BP STABLE. DENIES CHEST PAIN/PRESSURE. DENIES ABDOMINAL PAIN/NAUSEA. EATING WELL. CARB COUNTING FOR INSULIN DOSING. ACHS BLOOD SUGARS. STRICT FLUID RESTRICTION OF 750 ML/DAY. ATTENDS IN PLACE, USING BSC. NO DIALYSIS TODAY, DIALYSIS CATH TO RIGHT UPPER CHEST. NO IV ACCESS. BED BATH GIVEN THIS AM. SLEEPING AT THIS TIME IN RECLINER. CAMERA AND CHAIR ALARM ON FOR SAFETY. CALL LIGHT IN REACH. WILL CONTINUE TO MONITOR.
--- NOTE | 2021-10-26 17:35 | NUR ---
SHIFT SUMMARY: NO ACUTE CHANGES. PATIENT REMAINS ON ROOM AIR. UP IN RECLINER ALL DAY. USING BSC WITH WALKER, GAIT BELT AND ONE PERSON ASSIST. RIGHT HEEL WOUND CLEANSED AND DRESSED PER WOUND CARE ORDERS. BLOOD SUGARS REMAINS STABLE THUS FAR. PATIENT TALKING TO MOM ON PHONE THROUGHOUT DAY. BP STABLE AND CONTROLLED. PATIENT MEDICATED X1 WITH NORCO FOR LEG PAIN. RECLINER IN LOCKED POSITION WITH CHAIR ALARM AND CAMERA ON. CALL LIGHT IN REACH. FLUID RESTRICTION MAINTAINED. DENIES NEEDS WILL CONTINUE TO MONITOR.
--- NOTE | 2021-10-26 20:49 | NUR ---
ASSUMED CARE ASSUMED CARE OF PT UNTIL NURSE ANA ARRIVES. VVS AND MEDICATIONS ADMINISTERED.
[2021-10-27 04:16] LABS: Hematocrit 26.4 % (33.0-51.0); Hemoglobin 8.5 g/dL (11.5-16.0)
[2021-10-27 04:38] LABS: Albumin, Blood 2.7 g/dL (3.4-5.0); Anion Gap 10 mmol/L (6-16); Blood Urea Nitrogen 54 mg/dL (8-24); Bun/Creatinine Ratio 15.3 (12.0-20.0); CO2, Blood 25 mmol/L (21-32); Calcium, Blood 8.8 mg/dL (8.5-10.1); Chloride, Blood 99 mmol/L (98-108); Creatinine, Blood 3.54 mg/dL (0.40-1.00); Glomerular Filtration Rate 15 (60-); Glucose, Blood 283 mg/dL (70-99); Magnesium, Blood 2.2 mg/dL (1.6-2.4); Potassium, Blood 4.8 mmol/L (3.5-5.5); Sodium, Blood 134 mmol/L (136-145)
--- NOTE | 2021-10-27 05:51 | NUR ---
NOC SHIFT SUMMARY ASSUMED CARE OF PT @2100. PT SLEPT WELL, ORIENTED X4 WITH SOME SHORT TERM MEMORY LOSS. COMPLAINTS OF LOWER EXTREMITY PAIN W/RELIEF GIVEN FROM AVAILABLE PRNS. VSS PER PT TREND. POC GLUCOSE IN 200S. PT EDUCATED ON 750 ML FLUID RESTRICTION AND REPEATEDLY ASKING FOR DRINKS. ICE CHIPS AND MOUTH SWABS GIVEN. R HEEL DRESSING INTACT, HEELS FLOATED. PT REMAINED IN CHAIR OVERNIGHT PER REQUEST. WILL CONTINUE TO MONITOR AND PASS ON TO DAY RN
--- NOTE | 2021-10-27 18:07 | NUR ---
SHIFT SUMMARY; ASSUMED CARE AT 0700. A/A/OX4. IN RECLINER CHAIR FOR SHIFT. REPOSITIONS SELF NEEDED, SBA TO BEDSIDE COMMODE. DIAYLSIS COMPLETE TODAY. VSS, INSULIN COVERAGE PER EMAR. MEPILEX HEEL PROTECTOR CHANGED ON RIGHT HEEL. NO ACUTE MEDICAL CHANGES, WILL CONTINUE TO MONITOR AND TREAT UNTIL CHANGE OF SHIFT.
--- NOTE | 2021-10-27 21:56 | NUR ---
CARE ASSUMPTION: PATIENT SITTING IN CHAIR WATCHING TV. PATIENT HAD DIALYSIS TODAY AND R LEG IS EDEMATOUS AND "SORE" ACCORDING TO PATIENT. PATIENT STATES SHE IS LOOKING FORWARD TO GOING HOME TOMORROW AND IS CONCERNED ABOUT HER DOG WHO HAS BEEN MISSING FOR A COUPLE DAYS. THE D/C PLAN IS MOM WILL BE HER CAREGIVER. VS WNL FOR PATIENT. MEDICATED PER EMAR. CHAIR ALARM ON AND CALL LIGHT IN REACH.
--- NOTE | 2021-10-28 00:04 | NUR ---
UPDATE: PATIENT CRYING, REPORTS FEELING DIZZY AND NAUSEOUS. STATES "I JUST KNOW MY BLOOD SUGAR IS TOO LOW CAUSE I CAN FEEL IT. PLEASE CHECK IT." CBG WNL AT 71. PATIENT EXPRESSES CONCERN SHE'S GOING TO "GO TOO LOW" AND ASKS THIS RN TO HELP HER CALL HER MOM. PATIENT'S MOM IS CALLED ON PATIENT PHONE. PATIENT IN CHAIR, AWAKE, AND REFUSED BIPAP TO REST AT THIS TIME.
[2021-10-28 04:37] LABS: Hematocrit 29.7 % (33.0-51.0); Hemoglobin 9.4 g/dL (11.5-16.0)
[2021-10-28 04:53] LABS: Albumin, Blood 2.9 g/dL (3.4-5.0); Anion Gap 9 mmol/L (6-16); Blood Urea Nitrogen 38 mg/dL (8-24); Bun/Creatinine Ratio 14.3 (12.0-20.0); CO2, Blood 27 mmol/L (21-32); Calcium, Blood 9.1 mg/dL (8.5-10.1); Chloride, Blood 103 mmol/L (98-108); Creatinine, Blood 2.65 mg/dL (0.40-1.00); Glomerular Filtration Rate 22 (60-); Glucose, Blood 69 mg/dL (70-99); Magnesium, Blood 2.2 mg/dL (1.6-2.4); Phosphorus, Blood 2.8 mg/dL (2.5-4.9); Potassium, Blood 4.5 mmol/L (3.5-5.5); Sodium, Blood 139 mmol/L (136-145)
--- NOTE | 2021-10-28 07:04 | NUR ---
SHIFT SUMMARY: PATIENT REMAINED IN CHAIR T/O NIGHT AND DID NOT SLEEP. BECAME TEARFUL AT TIMES. IS WORRIED ABOUT PUPPY, CALLED MOM ~1-2 HRS, AND REPORTS PAIN IN LEGS. MEDICATED PER EMAR. NO CHANGES T/O NIGHT. PATIENT STATES SHE IS DISCHARGING TODAY. CALL LIGHT IN REACH. REPORT GIVEN.
--- NOTE | 2021-10-28 18:25 | NUR ---
SHIFT SUMMARY PT IS A/Ox3 AND FOLLOWS DIRECTIONS GIVEN BY STAFF. PT'S MENTATION CHANGED FROM THE START OF THE SHIFT. SHE HAS BECOME MORE FORGETFUL AND HAD TROUBLE REMEMBERING HER . PT MAINTAINS SP02 >94 ON RA AND DID NOT DEMONSTRATE SOB/DYSPNEA. PT IS MED STATUS AND IS NOT ON TELE. PT HAS BEEN UP IN THE CHAIR FOR MOST OF THE DAY AND FOR ALL MEALS. PT CBG WAS MANAGED VIA ORDERS/SLIDING SCALE IN EMAR. DRESSING ON RIGHT HEEL PRESSURE UCLER CLEANED PER WOUND CARE ORDERS AND DRESSING CHANGED. WOUND CARE CONSULTATION UNDER DR. MALAVE ORDERED. LAST WOUND CARE CONSULTATION WAS IN AUGUST OF 2021. GUY GARCIA
--- NOTE | 2021-10-28 20:19 | NUR ---
CARE ASSUMPTION: PATIENT IN CHAIR AND REQUESTED TO USE BSC. HAS BEEN ON PHONE WITH HER MOM FOR LAST HOUR AND STILL CONCERNED ABOUT GETTING HER DOG BACK. VS WNL, DENIES SOB OR CHEST PAIN, REPORTS PAIN IN R LEG ESPECIALLY. PLAN FOR WOUND CONSULT TOMORROW. CALL LIGHT IN REACH.
--- NOTE | 2021-10-28 22:12 | NUR ---
UPDATE: INCREASED CONFUSION NOTED AT 2139. PATIENT UNABLE TO STATE NAME AND REPEATED "5, 4, 3, 2, 1" WHEN ASKED HER . BIPAP IN PLACE AND CALL LIGHT IN REACH. MEDICATIONS DELAYED AT THIS TIME.
--- NOTE | 2021-10-29 00:35 | NUR ---
UPDATE: PATIENT WORE BIPAP FROM . SHE REMOVED IT HERSELF AND IS SITTING IN CHAIR. SOME IMPROVEMENT IN MENTATION.
[2021-10-29 04:24] LABS: Hemoglobin 8.4 g/dL (11.5-16.0)
[2021-10-29 04:48] LABS: Albumin, Blood 2.7 g/dL (3.4-5.0); Anion Gap 8 mmol/L (6-16); Blood Urea Nitrogen 55 mg/dL (8-24); Bun/Creatinine Ratio 15.5 (12.0-20.0); CO2, Blood 26 mmol/L (21-32); Calcium, Blood 9.2 mg/dL (8.5-10.1); Chloride, Blood 101 mmol/L (98-108); Creatinine, Blood 3.55 mg/dL (0.40-1.00); Glomerular Filtration Rate 15 (60-); Glucose, Blood 234 mg/dL (70-99); Magnesium, Blood 2.4 mg/dL (1.6-2.4); Phosphorus, Blood 3.2 mg/dL (2.5-4.9); Potassium, Blood 5.5 mmol/L (3.5-5.5); Sodium, Blood 135 mmol/L (136-145)
--- NOTE | 2021-10-29 05:23 | NUR ---
SHIFT SUMMARY: PATIENT REMAINED IN CHAIR AND RESTED T/O THE NIGHT. MEDICATED PER EMAR. MENTATION CLEARER THIS AM. NO CHANGES SINCE PREVIOUS NOTES. CALL LIGHT IN REACH. WILL CONTINUE TO MONITOR AND REPORT TO ONCOMING RN.
--- NOTE | 2021-10-29 08:23 | NUR ---
SPOKE WITH DIALYSIS NURSE AND PT WILL BE GETTING DIALYSIS TODAY AT 0900. GUY GARCIA
--- NOTE | 2021-10-29 09:05 | NUR ---
PT PULLED OFF DRESSING FOR DIALYSIS CATH, BUT CATH STILL IN PLACE. CHARGE NURSE AND CENTRAL MONITORING ALERTED TO SITUATION. PT EDUCATED ON NEED TO NOT PULL AT DRESSING OR CATH. PT WILL BE CLOSELY MONITORED TO ENSURE SHE DOES NOT PULL AT CATH. PT'S BLOOD PRESSURE MEDS HELD DUE TO PT BECOMING LETHARGIC AFTER DIALYSIS. GUY GARCIA
--- NOTE | 2021-10-29 12:21 | NUR ---
UPDATE KRISTI BALDWIN FROM WOUND CENTER VISTED PT AND REASSESSED HER WOUND. NICOLASA RECOMMENED THAT CURRENT WOUND CARE ORDERS WERE SUFFICENT. WOUND CENTER CONSULTS WILL CONTINUE AFTER PT'S DISHCARGE FOR WOUND MANAGEMENT
--- NOTE | 2021-10-29 12:42 | NUR ---
NEW WOUND PHOTO AND ASSESSMENT IN HARD CHART. CONTINUE CURRENT WOUND CARE ORDERS TO R HEEL. PLEASE FLOAT HEEL WHEN PT UP TO CHAIR. WOUND CLINIC REFERRAL ORDERED. PT TO FOLLOW UP OUTPATIENT ON DISCHARGE
--- NOTE | 2021-10-29 13:49 | NUR ---
MED UPDATE SPOKE WITH DR. CASTANEDA ABOUT CHANGING THE FREQUENCY OF PT'S LOKELMA TO ADMINISTER TO DAYS WHEN PT DOES NOT RECEIVE DIALYSIS. DR. CASTANEDA AGREED, CHANGED MADE TO THE ORDER UNDER DR. CASTANEDA'S DIRECTION AND CONTACTED PHARMACY TO VERIFY
--- NOTE | 2021-10-29 14:02 | NUR ---
MED UPDATE SPOKE WITH DR. CASTANEDA ABOUT CHANGING THE FREQUENCY OF PT'S LOKELMA ADMIN. TO DAYS WHEN PT DOES NOT HAVE DIALYSIS. DR. CASTANEDA AGREED AND VERBALLY VERIFIED THE NEW ORDER. LOKELMA ORDER CHNAGED VIA DR. CASTANEDA'S INSTRUCTIONS AND WAITING FOR PHARMACY TO VERIFY
--- NOTE | 2021-10-29 18:10 | NUR ---
SHIFT SUMMARY PT IS A/Ox2, BUT COOPERATIVE WITH STAFF. PT IS OFTEN FORGETFUL AND HAS SMALL EPISODES OF CONFUSION. PT WENT TO DIALYSIS WHERE THEY REMOVED A LITTLE OVER 1900ML OF FLUID. PT PULLED OFF HER DIALYSIS CATH DRESSING. PT REMINEDED TO NOT PULL AT DIALYSIS CATH OR DRESSING. PT MAINTAINS SPO2 >94 ON RA T/O MY SHIFT. PT HAS BEEN UP IN THE CHAIR MOST OF THE DAY. PT NOT ON TELE AND BP'S STABLE T/O MY SHIFT. PT'S LEG/KNEE PAIN MANAGED PER EMAR. WOUND CENTER NURSE ASSESSED HER WOUND AND FOUND THE CURRENT WOUND CARE ORDERS TO BE SUFFICIENT. WOUND CENTER CONSULT WILL BE ORDERED WHEN PT DISCHARGES FOR FOLLOW UP CARE. GUY GARCIA
--- NOTE | 2021-10-29 22:23 | NUR ---
CARE ASSUMPTION: PATIENT IN CHAIR WITH FAMILY AT BEDSIDE. LEGS IN DEPENDENT POSITION AND PATIENT CRYING IN PAIN. REPOSITIONED PATIENT WITH LEGS RAISED AND VERIFIED PAIN MEDS COULD NOT BE GIVEN FOR ANOTHER HOUR. PATIENT HYPERTENSIVE. MEDICATED PER EMAR. CALL LIGHT IN REACH.
[2021-10-30 03:59] LABS: Hematocrit 28.3 % (33.0-51.0); Hemoglobin 8.8 g/dL (11.5-16.0)
[2021-10-30 04:16] LABS: Albumin, Blood 2.6 g/dL (3.4-5.0); Anion Gap 6 mmol/L (6-16); Blood Urea Nitrogen 39 mg/dL (8-24); Bun/Creatinine Ratio 14.7 (12.0-20.0); CO2, Blood 31 mmol/L (21-32); Calcium, Blood 8.6 mg/dL (8.5-10.1); Chloride, Blood 101 mmol/L (98-108); Creatinine, Blood 2.66 mg/dL (0.40-1.00); Glomerular Filtration Rate 22 (60-); Glucose, Blood 131 mg/dL (70-99); Magnesium, Blood 2.1 mg/dL (1.6-2.4); Phosphorus, Blood 3.1 mg/dL (2.5-4.9); Potassium, Blood 4.8 mmol/L (3.5-5.5); Sodium, Blood 138 mmol/L (136-145)
--- NOTE | 2021-10-30 05:07 | NUR ---
SHIFT SUMMARY: PATIENT DENIES SOB AND CHEST PAIN. PATIENT HAS DISCOMFORT IN HER LEGS. PATIENT REMAINED IN CHAIR T/O SHIFT, WAS AWAKE FOR THE DURATION OF SHIFT WITH EXCEPTION OF <2 HR NAP WITH BIPAP IN PLACE. MEDICATED PER EMAR. CALL LIGHT IN REACH AND CALLS APPROPRIATELY. MENTATION NORMAL FOR BASELINE. CBGS <155. NO ACUTE EVENTS THIS SHIFT. WILL CONTINUE TO MONITOR AND REPORT TO ONCOMING RN.
--- NOTE | 2021-10-30 14:28 | NUR ---
ASSUMPTION OF CARE NOTE PT TRANSFERED TO MEDICAL FLOOR RM 333 APPROX. 1414 VIA RECLINER CHAIR, ESCORTED BY 2 PCU FINE DINING SERVER'S AND GAS METER READER RAJ. PT IS ALERT TO SELF, PLACE. SHE CAME TO MEDICAL FLOOR WITH ALL OF BELONGINGS. SHE HAS BEEN ORIENTED TO ROOM AND CALL LIGHT IS IN REACH.
--- NOTE | 2021-10-30 14:38 | NUR ---
CARE NOTE CHAIR ALARM IS ON, PT IS WATCHING TV. CALL LIGHT IS IN REACH.
--- NOTE | 2021-10-30 14:56 | NUR ---
TRANSFER OF CARE GAVE REPORT TO MAKAYLA VANCE RN ON MEDICAL FLOOR. ENSURED ALL QUESTIONS ABOUT THE PT WERE ANSWERED. GUY GARCIA UPON TRANSFER.
--- NOTE | 2021-10-30 15:11 | NUR ---
WOUND CARE HEEL PROTECTOR DRESSING ON RIGHT HEEL CHANGED BY THIS NURSE AT APPROX. 1500. WOUND CLEANED WITH WOUND CLEANSER AND PAINTED W/ BETADINE PER ORDERS. HEEL PROTECTOR DRESSING IN PLACE, LEGS ELEVATED IN RECLINER. CALL LIGHT IN REACH, CHAIR ALARM ON.
--- NOTE | 2021-10-30 19:14 | NUR ---
SHIFT SUMMARY PT REMAINED ALERT TO SELF AND PLACE. SHE IS ON RA, SPO2 >95%, SBP IN 160'S, SEE EMAR. SHE DENIED PAIN DURING SHIFT. FAMILY WAS AT BEDSIDE, SHE REMAINED IN RECLINER CHAIR W/ CHAIR ALARM ON, CALL LIGHT IN REACH. NO ACUTE CHANGES NOTED. REPORT GIVEN TO JOSE RAUL BERRY.
--- NOTE | 2021-10-31 03:53 | NUR ---
SHIFT SUMMARY PT WAS IN A SOME PAIN AT THE BEGINNING OF SHIFT. SHE WAS ABLE TO ANSWER SOME QUESTIONS AND TALKED ABOUT HER ANXIETY OVER THE LOSS OF HER DOG. SH EIS EAGER TO GO HOME WITH HER MOM TOMORROW. CBG REMAINED WITHIN ACCEPTED LIMITS EVEN THOUGH FAMILY SNUCK HER IN SODA DESPITE STAFF WARNINGS. SHE IS STILL WANTING TO DRINK MORE AND ASKS FOR WATER, BUT IS COOPERATIVE WHEN TOLD SHE IS ALREADY OVER HER DAILY LIMIT. PT HAS BEEN SLEEPING IN HER CHAIR WITH THE CHAIR ALARM ON.CALL LIGHT IN REACH
[2021-10-31 05:12] LABS: Hematocrit 29.6 % (33.0-51.0); Hemoglobin 9.2 g/dL (11.5-16.0)
[2021-10-31 05:27] LABS: Albumin, Blood 2.8 g/dL (3.4-5.0); Anion Gap 8 mmol/L (6-16); Blood Urea Nitrogen 55 mg/dL (8-24); Bun/Creatinine Ratio 13.9 (12.0-20.0); CO2, Blood 27 mmol/L (21-32); Calcium, Blood 8.9 mg/dL (8.5-10.1); Chloride, Blood 100 mmol/L (98-108); Creatinine, Blood 3.96 mg/dL (0.40-1.00); Glomerular Filtration Rate 13 (60-); Glucose, Blood 281 mg/dL (70-99); Magnesium, Blood 2.5 mg/dL (1.6-2.4); Phosphorus, Blood 3.2 mg/dL (2.5-4.9); Potassium, Blood 5.9 mmol/L (3.5-5.5); Sodium, Blood 135 mmol/L (136-145)
--- NOTE | 2021-10-31 09:16 | NUR ---
PATIENT OUT OF ROOM AT DIALYSIS THIS TIME. GIVEN SCHEDULED MORNING MEDICATION PER EMAR.
--- NOTE | 2021-10-31 17:26 | NUR ---
SHIFT SUMMARY: PATIENT A&O TO SELF, PLEASANT AND COOEPRATIVE WITH CARE. DIALYZE TODAY FOR ABOUT 3 HOURS. ON FR OF 750 ML/DAY, CONSUME 580 ML THIS SHIFT. TOLERATING PO INTAKE AND HAS GREAT APPETITE ATE 100% HER MEALS. PATIENT HAS BEEN SITTING UP IN CHAIR THROUGHOUT SHIFT. UP WITH 1 ASSIST, FWW & GAITBELT TO BSC WITH MINIMAL YELLOW URINE OUTPUT. PATIENT WAS WORKING WITH PT TODAY AND RECOMMENDING PT FOR CONTINUE SKILLED THERAPY. PLAN TO DC PATIENT HOME WITH MOTHER AND PAID CAREGIVER IN ALTERNATING ROUTINE SCHEDULE CARE FOR PATIENT. CERTIFIED PEER SPECIALIST IS WORKING ON PROPER AND SAFE DISCHARGE TO HOME. CHAIR ALARM ON FOR SAFETY AND CALL LIGHT IN REACH. WILL GIVE REPORT TO ONCALICIA WINSTON RN.
[2021-11-01 04:43] LABS: Hematocrit 28.9 % (33.0-51.0); Hemoglobin 9.1 g/dL (11.5-16.0)
[2021-11-01 05:15] LABS: Albumin, Blood 2.8 g/dL (3.4-5.0); Anion Gap 9 mmol/L (6-16); Blood Urea Nitrogen 44 mg/dL (8-24); Bun/Creatinine Ratio 13.5 (12.0-20.0); CO2, Blood 26 mmol/L (21-32); Calcium, Blood 8.9 mg/dL (8.5-10.1); Chloride, Blood 99 mmol/L (98-108); Creatinine, Blood 3.26 mg/dL (0.40-1.00); Glomerular Filtration Rate 17 (60-); Glucose, Blood 379 mg/dL (70-99); Magnesium, Blood 2.3 mg/dL (1.6-2.4); Phosphorus, Blood 2.8 mg/dL (2.5-4.9); Potassium, Blood 5.5 mmol/L (3.5-5.5); Sodium, Blood 134 mmol/L (136-145)
--- NOTE | 2021-11-01 05:35 | NUR ---
NO ACUTE EVENTS OVERNIGHT LAST NIGHT, WITH THE EXCEPTION OF AN ELEVATED SERUM BLOOD SUGAR OF 379 THIS MORNING. POC BLOOD GLUCOSE WAS 242 LAST NIGHT (HS). FOR SOME REASON, IT HAS YET TO DOWNLOAD INTO Troppin FROM THE GLUCOMETER. ALLAN REFUSED HER CPAP LAST NIGHT AND CHOSE TO SLEEP IN THE CHAIR. SHE STATES THAT SHE HAS LESS PAIN IN HER LEGS AND FEET WHEN SHE SLEEPS IN THE CHAIR VERSUS THE BED. ALLAN HAS CHRONIC NEUROPATHY TO BOTH LEGS AND FEET, BUT IS UNABLE TO TOLERATE LYRICA OR GABAPENTIN FOR RELIEF. SHE CONTINUES TO RECEIVE NORCO PRESCRIBED FOR PAIN RELIEF AND REPORTS THAT IT DOES PROVIDE SOME RELIEF. 750 mL FLUID RESTRICTION REMAINS IN PLACE.
--- NOTE | 2021-11-01 14:32 | NUR ---
Spiritual Care Visit. Pt. is awake in a recliner and welcomes my visit. Pt. is pleasant and displays evidence of looking forward to discharge home. Re-establish rapport and faiclitate a discussion of family, helen and belief. This windows vmware administrator has had many meetings with this Pt. and have been able to respond to many questions the pt. has had. Care management arrived, so I excused myself. The pt. verbalized gratitude for the spiritual care visit.
--- NOTE | 2021-11-01 18:33 | NUR ---
DAYSHIFT SUMMARY Patient OOB sitting in recliner all day, elevated feet throughout day. Reports pain in LE if legs down too long. Requested Hydrocodone, PRN effective. Provided education on fluid restriction, CBGs, patient verbalizes understanding, but needs reienforcement. CBGs 300-370, called and reported to MD. No changes to insulin orders. Mepilex on right heel, CDI. Vitals stable, afebrile. Waiting for caregiver approval, so pt can discharge home.
[2021-11-02 05:16] LABS: Hematocrit 28.5 % (33.0-51.0)
[2021-11-02 05:44] LABS: Albumin, Blood 2.9 g/dL (3.4-5.0); Anion Gap 8 mmol/L (6-16); Blood Urea Nitrogen 59 mg/dL (8-24); Bun/Creatinine Ratio 13.4 (12.0-20.0); CO2, Blood 27 mmol/L (21-32); Calcium, Blood 8.9 mg/dL (8.5-10.1); Chloride, Blood 98 mmol/L (98-108); Creatinine, Blood 4.39 mg/dL (0.40-1.00); Glomerular Filtration Rate 12 (60-); Glucose, Blood 224 mg/dL (70-99); Magnesium, Blood 2.3 mg/dL (1.6-2.4); Phosphorus, Blood 3.2 mg/dL (2.5-4.9); Potassium, Blood 5.5 mmol/L (3.5-5.5); Sodium, Blood 133 mmol/L (136-145)
--- NOTE | 2021-11-02 07:36 | NUR ---
SHIFT SUMMARY: PATIENT IS A&OX3 BUT DOES NOT KNOW DATE. REPORTS PAIN IN BILAT LEGS, NORCO 2 TABS X2 PROVIDED GOOD PAIN CONTROL. BP'S ARE ELEVATED, PATIENT IS ASYMPTOMATIC. PRN HYDRALAZINE WAS GIVEN WITH GOOD EFFECT.
--- NOTE | 2021-11-02 12:45 | NUR ---
patient back from dialysis
[2021-11-03 05:13] LABS: Hematocrit 30.3 % (33.0-51.0); Hemoglobin 9.5 g/dL (11.5-16.0)
[2021-11-03 05:30] LABS: Albumin, Blood 2.8 g/dL (3.4-5.0); Anion Gap 8 mmol/L (6-16); Blood Urea Nitrogen 41 mg/dL (8-24); Bun/Creatinine Ratio 11.4 (12.0-20.0); CO2, Blood 31 mmol/L (21-32); Calcium, Blood 9.3 mg/dL (8.5-10.1); Chloride, Blood 100 mmol/L (98-108); Creatinine, Blood 3.59 mg/dL (0.40-1.00); Glomerular Filtration Rate 15 (60-); Glucose, Blood 149 mg/dL (70-99); Magnesium, Blood 2.3 mg/dL (1.6-2.4); Phosphorus, Blood 3.1 mg/dL (2.5-4.9); Potassium, Blood 4.7 mmol/L (3.5-5.5); Sodium, Blood 139 mmol/L (136-145)
--- NOTE | 2021-11-03 07:55 | NUR ---
SHIFT SUMMARY: PATIENT IS A&O TO NAME AND PLACE BUT IS CONFUSED ON HER BIRTHDAY, BP IS ELEVATED, PATIENT IS ASYMPTOMATIC. PRN HYDRALAZINE WAS GIVEN. PATIENT CONTINUES TO REPORT BLE PAIN, PRN HYDOCODONE WAS GIVEN WITH GOOD EFFECT.
--- NOTE | 2021-11-03 18:46 | NUR ---
MAKES NEEDS KNOWN, FORGETFUL WITH WORDS AT TIMES, SHOWERED TODAY, PLEASANT AND COOPERATIVE TO CARE, SHOWERED TODAY, CALL LIGHT WITH IN REACH, WCTM
[2021-11-04 06:14] LABS: Hematocrit 28.8 % (33.0-51.0); Hemoglobin 9.2 g/dL (11.5-16.0); Mean Corpuscular HGB 31.7 pg (26.0-34.0); Mean Corpuscular HGB Conc 31.9 g/dL (31.5-36.5); Mean Corpuscular Volume 99 fL (80-100); Mean Platelet Volume 9.7 fL (9.1-12.4); Platelet Count 498 K/mm3 (150-400); RDW Coefficient Variation 16.7 % (11.7-14.2); RDW Standard Deviation 60.6 fL (35.1-46.3); White Blood Cell Count 9.32 K/mm3 (4.00-11.30)
[2021-11-04 06:30] LABS: Albumin, Blood 2.7 g/dL (3.4-5.0); Anion Gap 7 mmol/L (6-16); Blood Urea Nitrogen 57 mg/dL (8-24); Bun/Creatinine Ratio 12.7 (12.0-20.0); CO2, Blood 28 mmol/L (21-32); Chloride, Blood 99 mmol/L (98-108); Creatinine, Blood 4.49 mg/dL (0.40-1.00); Glomerular Filtration Rate 12 (60-); Glucose, Blood 343 mg/dL (70-99); Magnesium, Blood 2.2 mg/dL (1.6-2.4); Phosphorus, Blood 3.6 mg/dL (2.5-4.9); Potassium, Blood 5.1 mmol/L (3.5-5.5); Sodium, Blood 134 mmol/L (136-145)
--- NOTE | 2021-11-04 08:02 | NUR ---
SHIFT SUMMARY: PATIENT IS A&O TO SELF, PLACE, FAMILY BUT FORGETFUL AT TIMES. BP WAS ELEVATED THIS AM WAS 184/71, PRN HYDRALAZINE WAS GIVEN WITH FAIR EFFECT, RECHECK WAS 156/78. PATIENT CONTINUES TO REPORT BLE PAIN 7-10/23. NORCO 2 TABS WAS GIVEN WITH GOOD EFFECT. PATIENT AGAIN HAS REMOVED DIALYSIS CATHETER DRSG. BIOINFORMATICS ASSISTANT HAS REPLACE THIS DRSG EACH NIGHT FOR THE PAST TWO NIGHTS. THERE IS AN ORDER GIVEN ON THAT IT IS OK TO LEAVE THEM PERMACATH SITE BOAT BUILDER. THIS WAS PASSED ON IN SHIFT REPORT. PATIENT NEVER GETS IN THE BED, SLEEPS IN RECLINER.
--- NOTE | 2021-11-04 18:24 | NUR ---
NO ACUTE CHANGES THIS SHIFT. PATIENT AWAITING CAREGIVERS THROUGH THE STATE AND THEN WILL D/C HOME WITH HER MOTHER. VSS, ON RA AND CPAP AT [facility]. MEDICATED WITH NORCO X1 FOR BLE PAIN. WORKED WITH OT TODAY AND AMBULATED A SHORT DISTANCE IN THE HALLS. ACHS BLOOD SUGARS, COVERAGE PER SS AND CARB COVERAGE. DRESSINGS TO HEELS REMAIN C/D/I. CALL APPROPRIATELY FOR ASSISTANCE.
[2021-11-05 05:29] LABS: Hematocrit 29.8 % (33.0-51.0); Hemoglobin 9.4 g/dL (11.5-16.0)
[2021-11-05 06:04] LABS: Albumin, Blood 2.8 g/dL (3.4-5.0); Anion Gap 8 mmol/L (6-16); Blood Urea Nitrogen 39 mg/dL (8-24); Bun/Creatinine Ratio 10.8 (12.0-20.0); CO2, Blood 30 mmol/L (21-32); Calcium, Blood 8.8 mg/dL (8.5-10.1); Chloride, Blood 99 mmol/L (98-108); Creatinine, Blood 3.62 mg/dL (0.40-1.00); Glomerular Filtration Rate 15 (60-); Glucose, Blood 307 mg/dL (70-99); Magnesium, Blood 2.3 mg/dL (1.6-2.4); Phosphorus, Blood 3.4 mg/dL (2.5-4.9); Potassium, Blood 4.7 mmol/L (3.5-5.5); Sodium, Blood 137 mmol/L (136-145)
--- NOTE | 2021-11-05 18:29 | NUR ---
NO ACUTE CHANGES THIS SHIFT. CAREGIVER FROM THE STATE IN TO MEET WITH THE PATIENT TODAY. PATIENT WORKED WITH PT AND ABMULATED TO THE SHOWER AND BACK. WOUNDS CLEANSED AND DRESSINGS CHANGED, PICS TAKEN AND PLACED ON CHART. NO DIALYSIS TODAY. ACHS BLOOD SUGARS, COVERAGE PER SS AND CARB COVERAGE WITH MEALS. PATIENT A/OX3, FORGETFUL AND OCCASIONALLY HAS TROUBLE WITH WORD FINDING. PLAN IS TO DC HOME WITH MOTHER AND CAREGEIVERS.
[2021-11-06 06:05] LABS: Hematocrit 29.9 % (33.0-51.0); Hemoglobin 9.3 g/dL (11.5-16.0)
[2021-11-06 06:20] LABS: Albumin, Blood 2.7 g/dL (3.4-5.0); Anion Gap 8 mmol/L (6-16); Blood Urea Nitrogen 49 mg/dL (8-24); Bun/Creatinine Ratio 11.2 (12.0-20.0); CO2, Blood 29 mmol/L (21-32); Calcium, Blood 8.6 mg/dL (8.5-10.1); Chloride, Blood 99 mmol/L (98-108); Creatinine, Blood 4.37 mg/dL (0.40-1.00); Glomerular Filtration Rate 12 (60-); Glucose, Blood 155 mg/dL (70-99); Magnesium, Blood 2.4 mg/dL (1.6-2.4); Phosphorus, Blood 3.6 mg/dL (2.5-4.9); Sodium, Blood 136 mmol/L (136-145)
--- NOTE | 2021-11-06 18:24 | NUR ---
NO ACUTE CHANGES THIS SHIFT, PATIENT CONTINUES TO WAIT FOR CAREGIVER STAFFING. WENT DOWN FOR DIALYSIS TODAY. DRESSING TO R HEEL REMAINS C/D/I. VSS, ON RA. ACHS BLOOD SUGARS, COVERAGE PER SS AND CARB COVERAGE. TOLERATING ADA DIET WELL. MINIMAL U/O. FLUID RESTRICTION OF 750ML'S. MEDICATED X1 WITH HYDROCODONE FOR LEG AND FOOT PAIN. AMBULATING WITH FWW, GB AND SBA. A/OX3, FOREGETFUL. CALM AND COOPERATIVE WITH CARE, CALLS APPROPRIATELY FOR ASSISTANCE.
--- NOTE | 2021-11-06 21:52 | NUR ---
HS GLUCOSE 68. 5u GLARGINE HELD AND SNACK ADMINISTERED. PT REQUESTED RECHECK AT 2145: 132. 5u GLARGINE ADMINISTERED.
--- NOTE | 2021-11-07 04:27 | NUR ---
A&Ox4 W/ EPISODES OF CONFUSION, PARTICULARLY UPON AWAKENING. GLUCOSE AT BEDTIME WAS 68; GIVEN SNACK AND REQUESTED RECHECK AND INSULIN ADMINISTRATION AFTER RECHECK OF 132. SLEPT T/O MOST OF THE NIGHT. NORCO X2 ADMINISTERED AT BEDTIME WITH NO FURTHER C/O PAIN. NO BM THIS SHIFT. CONTINUES WITH FLUID RESTRICTION.
[2021-11-07 07:08] LABS: Hematocrit 30.1 % (33.0-51.0); Hemoglobin 9.4 g/dL (11.5-16.0)
[2021-11-07 07:22] LABS: Albumin, Blood 2.9 g/dL (3.4-5.0); Anion Gap 9 mmol/L (6-16); Blood Urea Nitrogen 39 mg/dL (8-24); CO2, Blood 29 mmol/L (21-32); Calcium, Blood 8.7 mg/dL (8.5-10.1); Chloride, Blood 97 mmol/L (98-108); Creatinine, Blood 3.53 mg/dL (0.40-1.00); Glomerular Filtration Rate 15 (60-); Glucose, Blood 363 mg/dL (70-99); Magnesium, Blood 2.2 mg/dL (1.6-2.4); Phosphorus, Blood 3.3 mg/dL (2.5-4.9); Potassium, Blood 5.2 mmol/L (3.5-5.5); Sodium, Blood 135 mmol/L (136-145)
--- NOTE | 2021-11-07 17:59 | NUR ---
SHIFT SUMMARY A&O X3. CAN BE CONFUSED AT TIMES. VSS. BLOOD SUGAR COVERAGE PER MD ORDER. (SEE EMAR). DRESSING ON HER R HEEL CHANGED TODAY. SHE IS FOCUSED ON WHEN SHE CAN GO HOME. SHE PARTICIPATED WITH PT TODAY AND WALKED THE HALLS WITH A WALKER WITH PHYS THERAPIST AT [facility]. MEDICATED FOR PAIN PER EMAR. SHE SAT IN THE RECLINER CHAIR MAJORITY OF THE SHIFT.
--- NOTE | 2021-11-07 18:44 | NUR ---
DIALYSIS CATHETER DIALYSIS CATHETER R SC, DRESSING INTACT.
--- NOTE | 2021-11-08 03:55 | NUR ---
PT USED CALL LIGHT AT 0045 TO REPORT WAKING FEELING SHAKY AND SWEATING PROFUSELY. BLOOD SUGAR CHECK SHOWED GLUCOSE LEVEL OF 56. PROVIDED WITH SNACK PER PROVIDER ORDER. RECHECK AT 0232 GLUCOSE LEVEL OF 151.
--- NOTE | 2021-11-08 04:51 | NUR ---
A&O 3-4 WITH EPISODES OF CONFUSION; SLOW TO ANSWER AND DIFFICULTY FINDING RIGHT WORDS TO SAY SOMETIMES. ANXIETY HIGH THIS EVENING WITH MULTIPLE EPISODES OF CRYING. NORCO GIVEN AT BEDTIME FOR BILATERAL LEG AND RT FOOT PAIN. EPISODE OF HYPOGLYCEMIA AROUND 0045, CORRECTED WITH SNACK PER PROTOCOL. PLEASANT AND COOPERATIVE WITH CARE.
[2021-11-08 05:04] LABS: Hematocrit 30.8 % (33.0-51.0); Hemoglobin 9.7 g/dL (11.5-16.0)
[2021-11-08 05:24] LABS: Albumin, Blood 2.9 g/dL (3.4-5.0); Anion Gap 10 mmol/L (6-16); Blood Urea Nitrogen 63 mg/dL (8-24); Bun/Creatinine Ratio 14.2 (12.0-20.0); CO2, Blood 29 mmol/L (21-32); Calcium, Blood 8.8 mg/dL (8.5-10.1); Chloride, Blood 97 mmol/L (98-108); Creatinine, Blood 4.44 mg/dL (0.40-1.00); Glomerular Filtration Rate 12 (60-); Glucose, Blood 194 mg/dL (70-99); Magnesium, Blood 2.5 mg/dL (1.6-2.4); Potassium, Blood 5.3 mmol/L (3.5-5.5); Sodium, Blood 136 mmol/L (136-145)
[2021-11-08 07:11] LABS: HBSAG SCREEN Negative (Negative); HEP B CORE AB, TOT Negative (Negative)
--- NOTE | 2021-11-08 15:39 | NUR ---
LATE ENTRY/TO DIALYSIS 0920: PT TO DIALYSIS VIA RECLINER CHAIR.
--- NOTE | 2021-11-08 16:20 | NUR ---
DR GHOSH CONTACTED AND NOTIFIED OF CL BLOOD GLUCOSE OF 45. PT PROVIDED W/ CRACKERS AND APPLEJUICE AWAITING CALL BACK @ THIS TIME FOR FURTHER ORDERS.
--- NOTE | 2021-11-08 19:36 | NUR ---
SHIFT SUMMARY PT A&O X 4 THOUGH CAN BE CONFUSED AT TIMES. HAD DIALYSIS THIS MORNING. R HEEL DRESSING CHANGED TODAY AFTER HER SHOWER. PRE-DINNER BG CHECK RESULTED WITH A BG OF 45, TREATED WITH OJ, APPLE JUICE, CRACKERS AND CHEESE. RE TESTED BG, WHICH RESULTED WITH A BG OF 86. DINNER ARRIVED AND SHE ATE WELL. SHE HAD ONE WHOLE WHEAT ROLL AND APPROX 4 SMALL RED POTATOES HER ONLY CARBS. SHE OTHERWISE HAD A SALAD W/CHICKEN AND A VEGGIE PLATE WITH APPROX 1/4 OF HUMMUS, APPROX 3OZ OF 2% MILK. DEFERRED THE INSULIN AT DINNER. NIGHT RN WILL CHECK BG AT 2100 AND SHE WILL RECEIVE HER EVENING DOSE OF LANTUS. WAS MEDICATED FOR PAIN PER EMAR. IS PLEASANT & COOPERATIVE. EFFORTS CONTINUE TOWARDS A SAFE & VIABLE DC PLAN.
--- NOTE | 2021-11-08 20:44 | NUR ---
PT CALLED THIS RN STATING SHE WAS FEELING SOB AND REQUESTING O2 CHECK. Bi-OX 66%. ADDITIONAL PULSE OX PLACED AND READ SAME RESULTS. O2 PLACED VIA NC AT 5L/min. SATS TO 72%. HI-FLOW NC AT 10L/MIN BROUGHT SATS TO 84%. RT TO ROOM TO DISCUSS Bi-PAP MACHINE AND MASK. PT AGREES.
--- NOTE | 2021-11-08 22:40 | NUR ---
CALL TO ON-CALL DR DANIEL R/T PT DESATTING. T.O. TO CONTINUE BI-OX AND MONITOR O2. NOTIFY IF DISPOSITION WORSENS.
--- NOTE | 2021-11-09 04:49 | NUR ---
A&O WITH INTERMITTENT CONFUSION. EPISODE OF DYSPNEA AND DESATTED TO 60s. PLACED ON O2 AND EVENTUALLY AGREED TO WEAR BiPap. RT VERY FIRM: PT NEEDS TO CONSISTENTLY WEAR IT WITH INTERMITTENT BREAKS. MASK MAKES HER VERY THIRSTY; REMINDED OF FLUID RESTRICTION AND ENCOURAGED TO CONTINUE TO WEAR BiPap. MEDICATED NORCO x2 @HS. NO BM.
[2021-11-09 05:00] LABS: Hematocrit 34.4 % (33.0-51.0); Hemoglobin 10.6 g/dL (11.5-16.0)
[2021-11-09 05:55] LABS: Albumin, Blood 3.2 g/dL (3.4-5.0); Anion Gap 12 mmol/L (6-16); Blood Urea Nitrogen 49 mg/dL (8-24); Bun/Creatinine Ratio 15.5 (12.0-20.0); CO2, Blood 27 mmol/L (21-32); Calcium, Blood 8.9 mg/dL (8.5-10.1); Chloride, Blood 96 mmol/L (98-108); Creatinine, Blood 3.17 mg/dL (0.40-1.00); Glomerular Filtration Rate 18 (60-); Glucose, Blood 399 mg/dL (70-99); Magnesium, Blood 2.4 mg/dL (1.6-2.4); Phosphorus, Blood 3.4 mg/dL (2.5-4.9); Potassium, Blood 5.7 mmol/L (3.5-5.5); Sodium, Blood 135 mmol/L (136-145)
--- NOTE | 2021-11-09 06:40 | NUR ---
PT WOKE AND REQUESTED TO REMOVE BiPap. IMMEDIATELY BEGAN DESATTING AGAIN. PLACED O2 VIA NC AND CONTINUED TO STAY <80%. APPREHENSIVE TO PUT ON BiPap BUT EVENTUALLY CONCEDED AND SATS INCREASED TO 90%-92%.
--- NOTE | 2021-11-09 07:46 | NUR ---
UPDATED DR. NEELAM RICHTER NOTIFED OF STATUS REQUIRING THE BIPAP WITH 8L BLEED OVERNIGHT. PT SATING AT 92% CURRENTLY. ALSO RELAYED THAT THE PTS BLOOD SUGAR IS 458 THIS AM. ORDER TO GIVE AN EXTRA 5UNITS OF SHORT ACTING ADDED TO THE CORRECTION SCALE WAS OBTAINED. CARB COUNT TO BE HELD, PT IS UNABLE TO TAKE BIPAP OFF AT THIS TIME. DR. RICHTER STATED HE WILL COME UP TO SEE THE PATIENT.
--- NOTE | 2021-11-09 09:00 | NUR ---
ELEVATED BLOOD SUGAR BLOOD SUGAR OF [address] RICHTER. ORDER TO GIVE AN EXTRA 5 UNITS OF INSULIN.
--- NOTE | 2021-11-09 17:02 | NUR ---
PT IS ALOX2-3, PT IS PLEASANT AND COOPERATIVE. THIS AM THE PT WAS ON BIPAP WITH A 10L/MIN O2 BLEED IN TO MAINTAIN HER SAT'S > 90%. PT REPORTED NAUSEA AND DECLINED BREAKFAST. THE PT WAS TX FOR BLOOD SUGAR 489. PT WAS TAKEN TO DIALYSIS. WHEN BACK FROM DIALYSIS PT WAS MORE AWAKE HIGH KATHY O2 WAS APPLIED AT 12/MIN AND SLOWLY TITRATED TO 4L/MIN MAINTAINING O2 SAT'S >90%. PT WAS ABLE TO EAT ALL OF HER LUNCH. WHEN THE PT FEEL ASLEEP THIS AFTERNOON HER O2 DROPPED TO 82%. PT WOKE UP AND O2 SAT'S INCREASED. PT IS NOW AWAKE. CALL LIGHT IN REACH. WILL CONTINUE TO MONITOR AND ASSESS FOR CHANGES
--- NOTE | 2021-11-10 05:01 | NUR ---
HAZARDOUS SUBSTANCES ENGINEER SUMMARY PT ON CONTINUOUS BIPAP T/O NIGHT W/HALF HOUR BREAKS Q4 HOURS AT 2100, 0100, AND 0500. PT HAS TOLERATED THE BIPAP VERY WELL W/HAVING CONSISTANT BREAKS. TITRATED BLEED IN O2 DOWN TO 2L; PT ON 4L O2 W/NC DURING BREAKS. PT C/O OF MOUTH PAIN DURING THE NIGHT; ADMIN PRN PAIN MEDS. BS CHECKS AT 0100 AND 0500 BREAK. CONT 750 MLS FLUID RESTRICT. CHANGED WOUND DRESSING ON RT HEEL W/IODINE AND MEPILEX. PLACED SMALL MEPILEX ON POSTERIOR RT THIGH BLEEDING SORE. PT CONFUSED AT TIMES. PT RESPONDED WELL TO ENCOURAGEMENT FOR CONT BIPAP. O2 SAT CONSITANTLY >90% T/O NIGHT.
[2021-11-10 06:02] LABS: Hematocrit 28.3 % (33.0-51.0); Hemoglobin 8.7 g/dL (11.5-16.0); Mean Corpuscular HGB 31.1 pg (26.0-34.0); Mean Corpuscular HGB Conc 30.7 g/dL (31.5-36.5); Mean Corpuscular Volume 101 fL (80-100); Mean Platelet Volume 10.1 fL (9.1-12.4); Platelet Count 386 K/mm3 (150-400); RDW Coefficient Variation 15.9 % (11.7-14.2); RDW Standard Deviation 59.5 fL (35.1-46.3); White Blood Cell Count 9.37 K/mm3 (4.00-11.30)
[2021-11-10 06:28] LABS: Albumin, Blood 2.6 g/dL (3.4-5.0); Anion Gap 7 mmol/L (6-16); Blood Urea Nitrogen 37 mg/dL (8-24); CO2, Blood 32 mmol/L (21-32); Calcium, Blood 8.7 mg/dL (8.5-10.1); Chloride, Blood 100 mmol/L (98-108); Creatinine, Blood 2.85 mg/dL (0.40-1.00); Glomerular Filtration Rate 20 (60-); Glucose, Blood 232 mg/dL (70-99); Magnesium, Blood 2.2 mg/dL (1.6-2.4); Phosphorus, Blood 3.3 mg/dL (2.5-4.9); Potassium, Blood 4.4 mmol/L (3.5-5.5); Sodium, Blood 139 mmol/L (136-145)
--- NOTE | 2021-11-10 19:05 | NUR ---
SHIFT SUMMARY PATIENT A&OX4, OCCASIONAL CONFUSION AND FORGETFUL. FLUID RESTRICTION INCREASED TO 1000ML. 1PA TO BSC. C/O PAIN RIGHT LEG, MEDICATED PER MAR X2. DRESSING ON RLE CHANGED. PATIENT STARTED SHIFT ON 4L NC. PATIENT DECREASED TO 2LNC SATING MID 90S%. VSS. CBG 300 THIS AM BUT STEADILY DECREASING T/O SHIFT, LAST CBG 168. REPORT GIVEN TO ONCOMING RN.
--- NOTE | 2021-11-11 04:32 | NUR ---
GEOTECHNICIAL PROPERTIES TECHNICIAN SUMMARY PT IN THE CHAIR T/O THE NIGHT W/INTERMITTANT PERIODS OF SLEEP AND WAKEFULNESS. PT ON BIPAP W/2L 02 BLEED IN WHEN SLEEPING; ON 2L O2 NC WHEN AWAKE. PT O2 SATS CONSISTANTLY ABOVE 90%. PT ANXIOUS ABOUT BLOOD SUGAR AND REQUESTED CHECKS DURING THE NIGHT; BS OF 166 AND 147. 1PA TO BSC. PT ORIENTED TO CALL LIGHT AND USING APPROPRIATELY. A/OX3-4 W/OCCASIONAL CONFUSION; WORD SEARCHING; AND SLOW VERBAL RESPONSE.
[2021-11-11 05:18] LABS: Hematocrit 29.8 % (33.0-51.0); Hemoglobin 9.2 g/dL (11.5-16.0)
[2021-11-11 05:53] LABS: Albumin, Blood 2.7 g/dL (3.4-5.0); Anion Gap 8 mmol/L (6-16); Blood Urea Nitrogen 55 mg/dL (8-24); Bun/Creatinine Ratio 14.4 (12.0-20.0); CO2, Blood 30 mmol/L (21-32); Calcium, Blood 8.4 mg/dL (8.5-10.1); Chloride, Blood 99 mmol/L (98-108); Creatinine, Blood 3.81 mg/dL (0.40-1.00); Glomerular Filtration Rate 14 (60-); Glucose, Blood 257 mg/dL (70-99); Magnesium, Blood 2.3 mg/dL (1.6-2.4); Phosphorus, Blood 3.7 mg/dL (2.5-4.9); Potassium, Blood 5.2 mmol/L (3.5-5.5); Sodium, Blood 137 mmol/L (136-145)
--- NOTE | 2021-11-11 18:44 | NUR ---
SHIFT SUMMARY: PT A/O X3 STANDBY ASSIST WITH WALKER AND GB. PT HAD DIALYSIS TODAY AND DID WELL. BP ELEVATED TODAY BUT ASYMPTOMATIC. PT BS WELL CONTROLLED TODAY. YAZMIN WORKED WITH PT TODAY AND DID VERY WELL. PT DID COMPLAIN OF PAIN IN LEGS AND NORCO GIVEN PER ORDER AND WAS EFFECTIVE IN TREATING HER PAIN. PT COULD BE HEARD MAKING PHONE CALLS IN HER ROOM ATTEMPTING TO COORDINATE CAREGIVERS IN HER HOME SO SHE CAN DISCHARGE. PT PLEASANT AND COOPERATIVE THROUGHOUT THE DAY WITH CARE. PT MAINTAINED FLUID RESTRICTIONS.
--- NOTE | 2021-11-12 04:53 | NUR ---
SHIFT SUMMARY A/OX3, FORGETFUL AT TIMES. C/O BLE PAIN, MEDICATED PER EMAR. 1P ASSIST WITH FWW AND GB. PERMACATH TO RCW. NO ACUTE CHANGES AT THIS TIME. BED IN LOWEST POSITION WITH CALL LIGHT IN REACH. WILL CONTINUE TO MONITOR AND REPORT TO ONCOMING RN.
[2021-11-12 05:24] LABS: Hematocrit 30.5 % (33.0-51.0); Hemoglobin 9.4 g/dL (11.5-16.0)
[2021-11-12 05:46] LABS: Magnesium, Blood 2.2 mg/dL (1.6-2.4)
[2021-11-12 05:47] LABS: Albumin, Blood 2.5 g/dL (3.4-5.0); Anion Gap 11 mmol/L (6-16); Blood Urea Nitrogen 43 mg/dL (8-24); Bun/Creatinine Ratio 13.5 (12.0-20.0); CO2, Blood 27 mmol/L (21-32); Calcium, Blood 8.4 mg/dL (8.5-10.1); Chloride, Blood 98 mmol/L (98-108); Creatinine, Blood 3.19 mg/dL (0.40-1.00); Glomerular Filtration Rate 17 (60-); Glucose, Blood 332 mg/dL (70-99); Phosphorus, Blood 3.1 mg/dL (2.5-4.9); Potassium, Blood 4.4 mmol/L (3.5-5.5); Sodium, Blood 136 mmol/L (136-145)
--- NOTE | 2021-11-12 12:40 | NUR ---
DR. CANALES NOTE: NOTIFIED PROVIDER OF PT CBG 411, NO CHANGE IN INSULIN DOSAGE. NOTIFIED DOCTOR THAT LABETALOL IV MEDICATION NEEDS TO BE MONITORED WITH TELE, NO NEW ORDERS AT THIS TIME.
--- NOTE | 2021-11-12 18:46 | NUR ---
SHIFT SUMMARY: PT SITTING IN RECLINER. PT PLEASANT AND ANXIOUS AT TIMES. PT CBG WAS 411 AT LUNCH TIME. PROVIDER NOTIFIED WITH NO NEW ORDERS. PT BP WAS 169/79 PRN HYDRALAZINE GIVEN. PT PAIN WAS CONSTANT IN HER LEGS. PT WAS MEDICATED PER EMAR PROTOCOL. PT PAIN WAS DISCUSSED WITH PROVIDER, PT OFFERED COLD/WARM COMPRESS, PT REFUSED INTERVENTIONS OFFERED. PT O2 SATURATIONS STABLE THROUGHOUT SHIFT. PT SEEN BY PT, PT ENCOURAGE PT TO AMBULATE TO THE BATHROOM INSTEAD OF USING THE CAMMODE. PT RECEVIED WOUND DRESSING WITH UPDATED PHOTOS OF WOUNDS. PT RECEVIED A DARBEPETIN SC INJECTION AT 1550. PT RESTING IN RECLINER WITH CALL LIGHT WITHIN REACH.
--- NOTE | 2021-11-13 04:46 | NUR ---
SHIFT SUMMARY A/OX3, INTERMITTENT CONFUSION NOTED. COMPLIANT WITH BIPAP T/O NIGHT, CONT. BIOX IN PLACE. C/O BLE PAIN, MEDICATED PER EMAR. CONTINUES TO BE HYPERTENSIVE, PRN HYDRALAZINE GIVEN. BED IN LOWEST POSITION WITH CALL LIGHT IN REACH. WILL CONTINUE TO MONITOR AND REPORT TO ONCOMING RN.
[2021-11-13 05:51] LABS: Hematocrit 31.9 % (33.0-51.0); Hemoglobin 10.4 g/dL (11.5-16.0)
[2021-11-13 06:24] LABS: Magnesium, Blood 2.4 mg/dL (1.6-2.4)
[2021-11-13 06:25] LABS: Albumin, Blood 2.9 g/dL (3.4-5.0); Anion Gap 11 mmol/L (6-16); Blood Urea Nitrogen 63 mg/dL (8-24); Bun/Creatinine Ratio 15.8 (12.0-20.0); CO2, Blood 26 mmol/L (21-32); Calcium, Blood 8.9 mg/dL (8.5-10.1); Chloride, Blood 97 mmol/L (98-108); Creatinine, Blood 3.98 mg/dL (0.40-1.00); Glomerular Filtration Rate 13 (60-); Glucose, Blood 355 mg/dL (70-99); Phosphorus, Blood 3.3 mg/dL (2.5-4.9); Potassium, Blood 4.5 mmol/L (3.5-5.5); Sodium, Blood 134 mmol/L (136-145)
--- NOTE | 2021-11-13 09:05 | NUR ---
UPDATE TRANSPORTED PT TO DIALYSIS. VSS, NADN BEFORE AND DURING TRANSPORT.
--- NOTE | 2021-11-13 14:11 | NUR ---
Spoke with pt's mom Brooke this afternoon, and she states she can hardly contain her excitement about pt returning home. She read off a large list of items she has purchased for the pt to use at home including blood pressure kit, blood sugar kit, new pillows and blankets, etc. [employer] Department Chair Casie reports pt is due to return home on Nov 15 at 8am, as long as there are no last minute changes.
--- NOTE | 2021-11-13 18:16 | NUR ---
SHIFT SUMMARY PT IS A/Ox3 BUT IS SLUGGISH TO RESPOND TO QUESTIONS. PT IS ALSO HAS SHORT TERM MEMORY ISSUES FOR SHE OFTEN FORGETS THINGS TOLD TO HER. PT RECEIVED DIALYSIS TODAY WITH 1500ML REMEOVED. PT'S BLOOD PRESSURE HAS BEEN ELEVATED TO THE 170-190'S, BUT HAS BEEN CONTROLLED WITH SCHEDULED BP MEDS AND PRN HYDRALAZINE. PT HAS MAINTAINS SPO2 >94 ON RA WITH NO SOB OR DYSPNEA NOTED. PAIN HAS BEEN WELL CONTROLLED AND MANAGED VIA EMAR. PT'S CBG'S HAVE BEEN TRENDING DOWNARD T/O THE SHIFT. NADN, VSS T/O THE SHIFT
[2021-11-14 06:59] LABS: Albumin, Blood 2.7 g/dL (3.4-5.0); Anion Gap 10 mmol/L (6-16); Blood Urea Nitrogen 49 mg/dL (8-24); Bun/Creatinine Ratio 15.1 (12.0-20.0); CO2, Blood 27 mmol/L (21-32); Calcium, Blood 8.5 mg/dL (8.5-10.1); Chloride, Blood 100 mmol/L (98-108); Creatinine, Blood 3.25 mg/dL (0.40-1.00); Glomerular Filtration Rate 17 (60-); Glucose, Blood 278 mg/dL (70-99); Magnesium, Blood 2.1 mg/dL (1.6-2.4); Phosphorus, Blood 3.2 mg/dL (2.5-4.9); Potassium, Blood 4.4 mmol/L (3.5-5.5); Sodium, Blood 137 mmol/L (136-145)
[2021-11-14 07:30] LABS: Hematocrit 33.4 % (33.0-51.0); Hemoglobin 10.8 g/dL (11.5-16.0)
[2021-11-14] MEDS ORDERED: HUMALOG KW100 UNIT/1 SC (15:19)
[2021-11-14] MEDS ORDERED: BASAGLAR K100 UNIT/1 SC (15:22)
[2021-11-14] MEDS ORDERED: BISA10S PR (15:31)
[2021-11-14] MEDS ORDERED: ELIQUIS5 M2 PO (15:31)
[2021-11-14] MEDS ORDERED: CLOP75 PO (15:32)
[2021-11-14] MEDS ORDERED: LOSA25 PO (15:32)
[2021-11-14] MEDS ORDERED: DOCU100 PO (15:33)
[2021-11-14] MEDS ORDERED: DOCUZEN 8.6-501 EACH PO (15:33)
[2021-11-14] MEDS ORDERED: HYDRA50 PO (15:35)
[2021-11-14] MEDS ORDERED: Norco 5-325 Ta1 EACH PO (15:36)
[2021-11-14] MEDS ORDERED: MELATONIN5 M1 PO (15:37)
[2021-11-14] MEDS ORDERED: CORTISONE60 GM TOP (15:37)
[2021-11-14] MEDS ORDERED: METO50ER PO (15:38)
[2021-11-14] MEDS ORDERED: PANT40 PO (15:39)
[2021-11-14] MEDS ORDERED: MICONAZOLE NIT130 GM TOP (15:39)
[2021-11-14] MEDS ORDERED: LOKELMA PO (15:40)
--- NOTE | 2021-11-14 17:54 | NUR ---
SHIFT SUMMARY PT AxOx3-4 WITH INTERMITTENT CONFUSION AND FORGETFULNESS. PT WORKED WITH PHYSICAL THERAPY THIS SHIFT. PT REPORTS PAIN IN BLE. MEDICATED PER EMAR. FLUID RESTRICTION ORDER FOLLOWED OF 750ML INTAKE ALLOTED FOR DAY SHIFT. VITALS REVIEWED. NO HEMODIALYSIS TODAY. PT IS EXPECTING TO DC HOME TOMORROW WITH HER MOTHER A CAREGIVER. [employer] COMMUNICATIONS SUPERINTENDENT WORKING WITH PATIENT FOR SAFE DISCHARGE AND OUTPATIENT FOLLOW UPS. PT IS CURRENTING SITTING IN RECLINER WITH LEGS ELEVATED. DENIES ANY NEEDS AT THIS TIME. CALL LIGHT IN REACH.
--- NOTE | 2021-11-15 05:26 | NUR ---
SHIFT SUMMARY AOX3-FORGETFUL & CONFUSED @TIMES. BP ELEVATED THIS AM, MEDICATED c PRN HYDRALAZINE & BP TRENDING DOWN SINCE. REST OF VITALS STABLE. REFUSED TO WEAR CPAP WHILE ASLEEP, HOWEVER PT TOLERATED 2L O2. PT REPORTS 10/10 PAIN IN BLE, MEDICATED c NORCO PER ORDERS, ABLE TO REST FOR ROUGHLY 3-4 HRS. HS CBG @129, GAVE SNACK & LONG ACTING INSULIN. CLEANSED R FOOT WOUND, HAD FOUL ODOR, & CHANGED BANDAGE. UP 1 ASSIST c FWW TO RESTROOM. PLAN TO DC HOME TODAY. CALL LIGHT IN REACH & PT ABLE TO MAKE NEEDS KNOWN.
[2021-11-15 07:00] LABS: Albumin, Blood 2.7 g/dL (3.4-5.0); Anion Gap 9 mmol/L (6-16); Blood Urea Nitrogen 66 mg/dL (8-24); Bun/Creatinine Ratio 15.4 (12.0-20.0); CO2, Blood 28 mmol/L (21-32); Calcium, Blood 8.7 mg/dL (8.5-10.1); Chloride, Blood 99 mmol/L (98-108); Creatinine, Blood 4.29 mg/dL (0.40-1.00); Glomerular Filtration Rate 12 (60-); Glucose, Blood 201 mg/dL (70-99); Magnesium, Blood 2.4 mg/dL (1.6-2.4); Phosphorus, Blood 4.1 mg/dL (2.5-4.9); Potassium, Blood 5.1 mmol/L (3.5-5.5); Sodium, Blood 136 mmol/L (136-145)
--- NOTE | 2021-11-15 11:40 | NUR ---
PT READY FOR DISCHARGE. RN REVIEWED ALL DISCHARGE INSTRUCTIONS WITH PATIENT AND HER MOTHER, INCLUDING APPTS TO SCHEDULE, DIABETIC SLIDING SCALE, MEDICATIONS AT PHARMACY, CALLING [facility] FOR DIALYSIS APPT ON SAT 11/16. SCRIPT FOR NORCO GIVEN TO PT'S MOTHER, PER PT'S CONSENT. PT DISCHARGED , TRANSPORTED VIA WHEELCHAIR, WITH ALL BELONGINGS, TO PRIVATE VEHICLE DRIVEN BY FAMILY. PT SAFELY TRANSFERRED TO FAMILY VEHICLE.
== END 2021-11-15 12:02 | disposition home health service (06) | DRG 853 ==
LOC: ER 09:48 → MEDS 12:43 → ICUE 12:43 → ICUW 12:43 → MEDS 07-22 18:05 → ENPENDDIS 07-25 14:43 → DELPENDDIS 07-25 14:43 → ICUE 07-29 06:04 → MEDS 07-29 06:12 → ICUE 07-29 06:22 → PCU 08-13 16:41 → MEDS 08-22 22:39 → ICUE 08-23 22:44 → PCU 08-27 15:53 → MEDS 08-29 16:37 → ICUE 09-10 22:42 → PCU 09-18 16:32 → ICUE 09-19 12:52 → ICUW 09-26 16:30 → PCU 09-29 04:45 → MEDS 10-30 14:19
PROVIDERS: Family Medicine; Hospitalist; Internal Medicine; Internal Medicine Critical Care Medicine; Internal Medicine Nephrology; Nurse Practitioner Acute Care; Radiology Diagnostic Radiology; Student in an Organized Health Care Education/Training Program; ADMIT Internal Medicine
PROC: 3E03329 Introduction of Other Anti-infective into Peripheral Vein, Percutaneous Approach (ICD-10-PCS; principal; 2021-07-19)
PROC: 0BH18EZ Insertion of Endotracheal Airway into Trachea, Via Natural or Artificial Opening Endoscopic (ICD-10-PCS; 2021-07-19)
PROC: 5A1945Z Respiratory Ventilation, 24-96 Consecutive Hours (ICD-10-PCS; 2021-07-19)
PROC: 02HV33Z Insertion of Infusion Device into Superior Vena Cava, Percutaneous Approach (ICD-10-PCS; 2021-07-29)
PROC: 5A1955Z Respiratory Ventilation, Greater than 96 Consecutive Hours (ICD-10-PCS; 2021-07-29)
PROC: 047K3DZ Dilation of Right Femoral Artery with Intraluminal Device, Percutaneous Approach (ICD-10-PCS; 2021-09-26)
PROC: 047M3DZ Dilation of Right Popliteal Artery with Intraluminal Device, Percutaneous Approach (ICD-10-PCS; 2021-09-26)
PROC: 047P3ZZ Dilation of Right Anterior Tibial Artery, Percutaneous Approach (ICD-10-PCS; 2021-09-26)
PROC: 047K3ZZ Dilation of Right Femoral Artery, Percutaneous Approach (ICD-10-PCS; 2021-09-26)
PROC: 047M3ZZ Dilation of Right Popliteal Artery, Percutaneous Approach (ICD-10-PCS; 2021-09-26)
PROC: 047P3ZZ Dilation of Right Anterior Tibial Artery, Percutaneous Approach (ICD-10-PCS; 2021-09-26)
PROC: 3E05317 Introduction of Other Thrombolytic into Peripheral Artery, Percutaneous Approach (ICD-10-PCS; 2021-09-26)
PROC: 5A1945Z Respiratory Ventilation, 24-96 Consecutive Hours (ICD-10-PCS; 2021-10-16)
DX: A41.9 Sepsis, unspecified organism (principal); E11.10 Type 2 diabetes mellitus with ketoacidosis without coma; N18.6 End stage renal disease; R40.20 Unspecified coma; J96.01 Acute respiratory failure with hypoxia; G92.8 Other toxic encephalopathy; J81.0 Acute pulmonary edema; I13.2 Hypertensive heart and chronic kidney disease with heart failure and with stage 5 chronic kidney disease, or end stage renal disease; E87.2 Acidosis; E87.1 Hypo-osmolality and hyponatremia; I50.32 Chronic diastolic (congestive) heart failure; Z68.41 Body mass index [BMI] 40.0-44.9, adult; K31.84 Gastroparesis; Z20.822 Contact with and (suspected) exposure to COVID-19; E11.51 Type 2 diabetes mellitus with diabetic peripheral angiopathy without gangrene; F17.210 Nicotine dependence, cigarettes, uncomplicated; G47.33 Obstructive sleep apnea (adult) (pediatric); J44.9 Chronic obstructive pulmonary disease, unspecified; E87.5 Hyperkalemia; L97.519 Non-pressure chronic ulcer of other part of right foot with unspecified severity; E11.22 Type 2 diabetes mellitus with diabetic chronic kidney disease; E66.01 Morbid (severe) obesity due to excess calories; R65.20 Severe sepsis without septic shock; E11.43 Type 2 diabetes mellitus with diabetic autonomic (poly)neuropathy; K59.00 Constipation, unspecified; L89.610 Pressure ulcer of right heel, unstageable; R91.1 Solitary pulmonary nodule; R56.9 Unspecified convulsions; E11.621 Type 2 diabetes mellitus with foot ulcer; Z78.1 Physical restraint status; L97.529 Non-pressure chronic ulcer of other part of left foot with unspecified severity; K21.9 Gastro-esophageal reflux disease without esophagitis; D63.1 Anemia in chronic kidney disease; E11.40 Type 2 diabetes mellitus with diabetic neuropathy, unspecified; Z86.73 Personal history of transient ischemic attack (TIA), and cerebral infarction without residual deficits; Z91.19 Patient's noncompliance with other medical treatment and regimen; Z99.2 Dependence on renal dialysis; Z87.01 Personal history of pneumonia (recurrent); Q77.4 Achondroplasia; Z86.718 Personal history of other venous thrombosis and embolism; Z90.49 Acquired absence of other specified parts of digestive tract; Z90.89 Acquired absence of other organs; Z88.0 Allergy status to penicillin; Z88.1 Allergy status to other antibiotic agents; Z88.2 Allergy status to sulfonamides; Z88.8 Allergy status to other drugs, medicaments and biological substances; Z79.4 Long term (current) use of insulin; Z79.82 Long term (current) use of aspirin; Z79.899 Other long term (current) drug therapy
CPT/HCPCS: 0241U; 31500; 31720; 36415; 36430; 36600; 37211; 37224; 37226; 37228; 51702; 70450; 70496; 70498; 71045; 71260; 73630; 74177; 75625; 75716; 75774; 80047; 80048; 80053; 80069; 80202; 81001; 82010; 82140; 82248; 82550; 82803; 82947; 83605; 83735; 84100; 84132; 84145; 84439; 84443; 84550; 85014; 85018; 85025; 85027; 85049; 85347; 85384; 85520; 85610; 85730; 86317; 86704; 86850; 86900; 86901; 86923; 87040; 87070; 87077; 87086; 87186; 87205; 87340; 92523; 92526; 92610; 93005; 93010; 93308; 93321; 93926; 93971; 94002; 94003; 94644; 94660; 94664; 94760; 94762; 96361; 96365; 96375; 97110; 97112; 97116; 97129; 97162; 97166; 97530; 97535; 99152; 99153; 99285-25; A9270; C1725; C1751; C1757; C1760; C1769; C1874; C1887; C1894; C2623; C9113; J0330; J0360; J0610; J0692; J0881; J1170; J1644; J1815; J1953; J2250; J2310; J2704; J2930; J2997; J3010; J3370; J3480; J7030; J7040; J7042; J7050; J7060; J7070; J7120; J7799; P9016; Q9967; U0004

== ENCOUNTER 2021-11-16 03:44 | Inpatient (IN) | payer OTHER ==
[~2021-11-16] VITALS: Ht 139.7 cm; Wt 76.3 kg
[~2021-11-16 03:44] MED LIST changes: +BISA10S PR; +CORTISONE60 GM TOP; +DOCUZEN 8.6-501 EACH PO; +ELIQUIS5 M2 PO; +HUMALOG KW100 UNIT/1 SC; +HYDRA50 PO; +LEVE500 PO; +LOKELMA PO; +LOSA25 PO; +MELATONIN5 M1 PO; +METO50ER PO; +MICONAZOLE NIT130 GM TOP; +Norco 5-325 Ta1 EACH PO
[2021-11-16 04:39] LABS: PCO2 Arterial 52.8 mmHg (35-45); PO2 Arterial 67.7 mmHg (80-100); pH Blood Arterial 7.13 (7.35-7.45)
[2021-11-16 05:06] LABS: BASOPHILS ABSOLUTE AUTO 0.09 K/mm3 (0.00-0.23); BASOPHILS PERCENT AUTO 0 % (0-2); EOSINOPHILS ABSOLUTE AUTO 0.01 K/mm3 (0.00-0.68); EOSINOPHILS PERCENT AUTO 0 % (0-6); Hematocrit 31.4 % (33.0-51.0); Hemoglobin 9.7 g/dL (11.5-16.0); IMMATURE GRAN ABSOLUTE AUTO 0.38 K/mm3 (0.00-0.10); IMMATURE GRAN PERCENT AUTO 2 % (0-1); LYMPHOCYTES ABSOLUTE AUTO 0.68 K/mm3 (0.84-5.20); LYMPHOCYTES PERCENT AUTO 3 % (21-46); MONOCYTES ABSOLUTE AUTO 0.83 K/mm3 (0.16-1.47); MONOCYTES PERCENT AUTO 4 % (4-13); Mean Corpuscular HGB Conc 30.9 g/dL (31.5-36.5); Mean Corpuscular Volume 104 fL (80-100); Mean Platelet Volume 10.4 fL (9.1-12.4); NEUTROPHILS ABSOLUTE AUTO 21.33 K/mm3 (1.96-9.15); NEUTROPHILS PERCENT AUTO 92 % (41-73); Platelet Count 420 K/mm3 (150-400); RDW Coefficient Variation 15.7 % (11.7-14.2); RDW Standard Deviation 59.8 fL (35.1-46.3); Red Blood Cell Count 3.03 M/mm3 (3.80-5.20); White Blood Cell Count 23.32 K/mm3 (4.00-11.30)
[2021-11-16 05:35] LABS: Calcium, Ionized (POC) 0.99 mmol/L (1.10-1.46); Chloride (POC) 95 mmol/L (98-108); Creatinine (POC) 4.9 mg/dL (0.6-1.0); Glucose (ISTAT POC) >700 mg/dL (70-99); Hemoglobin (POC) 11.6 g/dL (12.0-16.0); Potassium (POC) 5.2 mmol/L (3.5-5.5); Sodium (POC) 130 mmol/L (135-148); Total CO2 (POC) 19 mmol/L (21-32)
[2021-11-16 05:37] LABS: Beta-hydroxybutyrate 28.8 mg/dL (0.2-2.8)
[2021-11-16 05:46] LABS: Albumin, Blood 2.8 g/dL (3.4-5.0); Albumin/Globulin Ratio 0.8 (0.8-1.8); Bilirubin, Total 0.4 mg/dL (0.1-1.0); Bun/Creatinine Ratio 15.4 (12.0-20.0); Creatinine, Blood 4.94 mg/dL (0.40-1.00); Globulin, Blood 3.6 g/dL (2.2-4.0); Potassium, Blood 4.5 mmol/L (3.5-5.5); Total Protein, Blood 6.4 g/dL (6.4-8.2)
[2021-11-16 06:50] LABS: Influenza A, PCR NEGATIVE (NEGATIVE); Influenza B, PCR NEGATIVE (NEGATIVE); Resp Syncytial Virus, PCR NEGATIVE (NEGATIVE); SARS-Cov-2 (COVID-19) PCR, MMC NEGATIVE (NEGATIVE)
--- NOTE | 2021-11-16 07:35 | NUR ---
RECEIVED PATIENT FROM ED 0735. PER REPORT PT CODED IN ED, 1 HOUR OF RESUSCITATION. PT INTUBATED/VENT 22/350/12/100% W/RT PRESENT. PT SEDATED W/PROPOFOL 40MCG/KG/HR, INSULIN DRIP @ 4.5 U/HR. SZ 8 ETT TUBE, 24CM @TEETH. PERIPHERAL IV: 20GA RIGHT UPPER CHEST AND 20GA [id number]. IO IN LLE. PT MAKING PURPOSEFUL MOVEMENTS TO STIMULI.
[2021-11-16 08:32] LABS: Glucose, Blood 718 mg/dL (70-99)
[2021-11-16 08:53] LABS: U Amphetamine Screen Not Detected; U Barbituate Screen Not Detected; U Benzodiazapine Screen Not Detected; U Buprenorphine Screen Not Detected; U Cannabinoids Screen Not Detected; U Cocaine Screen Not Detected; U Methadone Screen Not Detected; U Methamphetamine Screen Not Detected; U Opiates Screen DETECTED; U Oxycodone Screen Not Detected; U Phencyclidine Screen Not Detected; U Propoxyphene Screen Not Detected
[2021-11-16 10:22] LABS: Base Excess Venous 2.4 mmol/L; Bicarbonate Venous 26.2 mmol/L (24.0-30.0); PCO2 Venous 51.7 mmHg (38-42); pH Blood Venous 7.34 (7.34-7.37)
[2021-11-16 10:23] LABS: Glucose, Blood 610 mg/dL (70-99)
--- NOTE | 2021-11-16 12:56 | NUR ---
JENNIFER CANALES RE: TREND IN BLOOD GLUCOSE GOING DOWN DESPITE INSULIN DRIP BEING OFF SINCE 1100. BASIC METABOLIC PANEL ORDERED.
[2021-11-16 13:12] LABS: Bun/Creatinine Ratio 13.7 (12.0-20.0); Creatinine, Blood 2.27 mg/dL (0.40-1.00); Potassium, Blood 3.2 mmol/L (3.5-5.5)
--- NOTE | 2021-11-16 16:12 | NUR ---
Pt's brother and sister in law to see patient. They are upset that patient was discharged and state that the pharmacy did not give them the right insulin. State that the pharmacy "only gave them the meal time insulin and didn't give them the short acting insulin - the one you take when the sugar is high". They state that the patient's blood sugar was checked after 8 and "it said 'high'. Mom thought it was broken. She checked it again later and it still said high. Then she checked it again and Reyna wasn't waking up and it still said high, but she didn't have the right insulin to fix it. Thats when they called the ambulance". Family mentions that the insulin is in the car. This RN instructed family to bring in the insulin. Palliative care RN, Idalia, and Dr Rizo at bedside to discuss previous discharge with family. Discussed that patient wanted to go home and pt's mother wanted to take patient home. Discussed that every day, both parties stated desire for Janis to go home and patient cannot be held against her well. Discussed that in absence of decision making capabilities, pt's spouse is alternate decision maker; since spouse is incarcerated, mom is the alternate decision maker. Discussed that discharge was dependent on having a 24 hour caregiver and patient was allowed to leave when this was arranged. Patient's [id number] states that pt's home is covered in feces because they have several dogs and birds that toilet freely in the living space and states "I won't even let my kid spend the night there". Pt's brother goes out and comes back with pt's mother and one other visitor and has insulin in hand. 4 pens of humalog handed to this RN. Pt's mom states "see! They didn't give me the insulin for the high blood sugar". Family educated that humalog is the short acting insulin that is used both before meals and for high blood sugars. After meeting with Dr Rizo and Idalia RN, brother and [id number] verbalize understanding circumstances surrouding discharge.
--- NOTE | 2021-11-16 17:04 | NUR ---
Pt post CPR on ventilator, apperars to have some increased fluid and edema. Pt wounds look inproved in some areas. pt has IO site in left leg assited in removing. Pt at high risk for complications to her lover leg from the access. Will need close monitoring. Family in upset at failed plan. Pt brother and LYNDON upset she went to her mothers home. They state the home is filthy and unstable. The state mother is not capable of careing for her needs. They relay she couls not manage the glucose montior. they stated they did not have the isulin. Mother brought pen in the did have the insulin. Lot so confussion from family mother seems more frail. Hopitalist spoke with the son. We also had a conversation. He and his need to take over decion making due to mothers inabilty. Had a discussion with pt brother regarding difficulties in getting facilities to accept her. They want her in [place]. They know some of the facilities and will make some calls. Also brought up with him that she is aging and more frail and wiliam event is serious. He was understanding. will see how she responds. Suggest endocrine disorder labs and evaluation if she recovers. Will see how she tolerates dialyis may be better served by hospice she has had some severe events and suffering. Will continue suuportive visits with family. Her brother requested my card and will follow up.
--- NOTE | 2021-11-16 18:06 | NUR ---
SUMMARY Neuro/Musc: Opens eyes to verbal stimulus. Grimaces and often looks like she's crying when stimulated. Withdraws each extremity with applied nail bed pressure. Noted weakess and slower response to RUE. PERRL, 3 mm. Gag, cough, and corneal reflexes present. Intermittent disconjugate gaze. Fentanyl provided for CPOT. Respiratory: 8 cm ETT at expected placement of 24 cm at gums. Vent settings Spontaneous with PS 7/5 and 45%. SpO2 90% or greater. RR 20-22. Tidal volumes 300 mL or greater. Lungs coarse t/o. Cardiac: SR per monitor. Pt generally edematous compared to baseline, nonpitting. GI: Nepro started at 25 mL/hr. Tolerating well. Smear liquid BM this shift. Hypoactive BT. : Mitchell catheter in place for strict I&O. Pt had hemodialysis today. Skin: Unchanged from initial admission assessment. Psychosocial: ISAAC due to intubation and sedation. Family updated today.
--- NOTE | 2021-11-16 20:00 | NUR ---
ASSUMED CARE OF PT AT 1915. REPORT RECEIVED AT BEDSIDE. PT PRESENTS IN BED. INTUBATED ON PRESSURE SUPPORT 7, PEEP 5, PT MAINTAINS SATURATION > 90 WITH THIS. PROPOFOL FOR SEDATION AT 30. DID INCREASE TO 35. PT WILL OPEN EYES TO VERBAL STIMULI. NO S/S DISTRESS TO NOTE. WILL REVIEW CHART AND PLAN OF CARE FOR THIS PT.
[2021-11-16 23:06] LABS: Source, Urine Foley catheter
[2021-11-16 23:08] LABS: Bilirubin, Urine Neg (Neg); Blood, Urine 3+ (Neg); Glucose Qualitative, Urine 4+ (Neg); Ketones, Urine Neg (Neg); Leukocyte Esterase, Urine 1+ (Neg); Nitrite, Urine Neg (Neg); Protein, Urine 4+ (Neg); Urobilinogen, Urine NORM (Normal)
[2021-11-16 23:14] LABS: Color, Urine Yellow (P-Yellow)
[2021-11-16 23:15] LABS: Appearance, Urine Hazy (Clear)
[2021-11-16 23:16] LABS: Amorphous Light (0-Heavy); Bacteria Few /hpf; Squamous Epithelial Cells Few /hpf (Few); Transitional Epithelial Cells Few /hpf (0-Rare); White Blood Cells, Urine 50-100 /hpf (0-5)
--- NOTE | 2021-11-17 | NUR ---
HURT[place] SECRETIONS RETURNED WITH SUCTIONING. PT MAINTAINS > 90 PERCENT SATURATION ON VENT. TUBE FEEDING CONTINUES AT GOAL. 0 RESIDUALS TO NOTE. WILL CONTINUE TO MONITOR, AND WILL CONTINUE Q 2 HOUR TURNS.
[2021-11-17 04:51] LABS: Base Excess Venous 6.3 mmol/L; Bicarbonate Venous 29.6 mmol/L (24.0-30.0); PCO2 Venous 43.2 mmHg (38-42); pH Blood Venous 7.45 (7.34-7.37)
[2021-11-17 05:10] LABS: BASOPHILS ABSOLUTE AUTO 0.05 K/mm3 (0.00-0.23); BASOPHILS PERCENT AUTO 0 % (0-2); EOSINOPHILS ABSOLUTE AUTO 0.13 K/mm3 (0.00-0.68); EOSINOPHILS PERCENT AUTO 1 % (0-6); Hemoglobin 7.5 g/dL (11.5-16.0); IMMATURE GRAN ABSOLUTE AUTO 0.03 K/mm3 (0.00-0.10); IMMATURE GRAN PERCENT AUTO 0 % (0-1); LYMPHOCYTES ABSOLUTE AUTO 0.84 K/mm3 (0.84-5.20); LYMPHOCYTES PERCENT AUTO 8 % (21-46); MONOCYTES ABSOLUTE AUTO 1.39 K/mm3 (0.16-1.47); MONOCYTES PERCENT AUTO 12 % (4-13); Mean Corpuscular HGB 31.8 pg (26.0-34.0); Mean Corpuscular HGB Conc 32.6 g/dL (31.5-36.5); Mean Platelet Volume 10.4 fL (9.1-12.4); NEUTROPHILS ABSOLUTE AUTO 8.76 K/mm3 (1.96-9.15); NEUTROPHILS PERCENT AUTO 78 % (41-73); Platelet Count 347 K/mm3 (150-400); RDW Coefficient Variation 15.9 % (11.7-14.2); RDW Standard Deviation 56.2 fL (35.1-46.3); Red Blood Cell Count 2.36 M/mm3 (3.80-5.20)
[2021-11-17 05:21] LABS: Mean Corpuscular Volume 98 fL (80-100)
[2021-11-17 05:46] LABS: Albumin, Blood 2.1 g/dL (3.4-5.0); Anion Gap 7 mmol/L (6-16); Blood Urea Nitrogen 51 mg/dL (8-24); Bun/Creatinine Ratio 12.5 (12.0-20.0); CO2, Blood 29 mmol/L (21-32); Calcium, Blood 8.5 mg/dL (8.5-10.1); Chloride, Blood 102 mmol/L (98-108); Creatinine, Blood 4.09 mg/dL (0.40-1.00); Glomerular Filtration Rate 13 (60-); Glucose, Blood 169 mg/dL (70-99); Phosphorus, Blood 3.6 mg/dL (2.5-4.9); Sodium, Blood 138 mmol/L (136-145)
--- NOTE | 2021-11-17 06:55 | NUR ---
FULL BEDBATH WAS DONE FOR PT THIS SHIFT. NO NEW SKIN ISSUES TO REPORT OTHER THAN IN ABDOMINAL FOLDS SLIGHT PINK/RED AREA. PT MAINTAINS > 90 PERCENT SATURATION. PROPOFOL REMAINS AT 35 MCG'S. WITH LIGHT SEDATION VACATION, PT DOES AWAKEN SOME TO VOICE. WILL CONTINUE TO MONITOR PT, AND WILL REPORT OFF TO ONCOMING RN.
--- NOTE | 2021-11-17 08:31 | NUR ---
ASSUMPTION OF CARE RECEIVED REPORT FROM KRISTINA BERRY AT 0715, ASSUMED CARE OF PATIENT. PATIENT IN BED ON LEFT SIDE. RESPONDS TO PAIN, PURPOSEFULLY MOVES EXTREMITIES AND GRIMACES. INTUBATED WITH VENT SETTINGS VC+ 12/350/5/30%. PROPOFOL AT 35MCG/KG INFUSING VIA PICC IN LUE. NEPRO TF VIA OG AT 25ML/HR. HOLLINGSWORTH CATHETER PATENT AND DRAINING CLEAR, YELLOW URINE. DIALYSIS PORT TO RIGHT CHEST WALL, DRESSING C/D/I. WILL REVIEW ORDERS AND TREAT PRESCRIBED.
--- NOTE | 2021-11-17 09:33 | NUR ---
PATIENT DIAPHORETIC, CBG 255, AFEBRILE AT 98.8. DR. HAYES AWARE. BLANKETS REMOVED AND FAN PROVIDED TO BEDSIDE.
[2021-11-17 10:02] LABS: Vancomycin, Random 19.1 ug/mL
--- NOTE | 2021-11-17 17:47 | NUR ---
SHIFT SUMMARY NEURO: PATIENT ON PROPOFOL, SEDATION TURNED OFF CHARTED TO COMPLETE NEURO ASSESSMENT. PATIENT WITH GRIMACING AND FULL MOVEMENT TO BUE AND BLE. RESTARTED PROPOFOL FOR COMFORT AND CONTINUED TO TITRATE FOR VENT COMPLIANCE. FENTANYL PRN GIVEN FOR SIGNS OF PAIN. RESP: PEEP OF 5 AND FIO2 30% WITH SP02 ABOVE 95%. CLEAR LUNGS WITH MINIMAL CLEAR SECRETIONS NOTED VIA ETT. CARDIAC: RATE ABOVE 60 IN SINUS RHYTHM. RADIAL PULSES STRONG WITH DOPPLERED PEDAL PULSES. HYPERTENSIVE WITH PRN HYDRALAZINE GIVEN. RIGHT CALF MEASURED AT 45CM. DR. HAYES ASSESSED RIGHT CALF AND NOTICED A DECREASE IN SWELLING. MEASUREMENTS TO CONTINUE. GI: OG WITH TF AT 25ML/HR, LOW RESIDUALS. ACTIVE BOWEL TONES NOTED. : HOLLINGSWORTH PATENT AND DRAINING CLEAR, YELLOW URINE. SKIN: RIGHT HEEL UNCHANGED FROM ADMISSION. ELEVATED ON PILLOW CONTINUOUSLY WITH MEPILEX HEEL PROTECTOR IN PLACE TO BILATERAL HEELS. TURNED EVERY 2 HOURS. MOM AND BROTHER UPDATED VIA PHONE REGARDING PATIENT'S CURRENT STATUS. WILL GIVE REPORT TO ONCOMING RN.
[2021-11-18 04:25] LABS: BASOPHILS ABSOLUTE AUTO 0.06 K/mm3 (0.00-0.23); BASOPHILS PERCENT AUTO 1 % (0-2); EOSINOPHILS ABSOLUTE AUTO 0.64 K/mm3 (0.00-0.68); EOSINOPHILS PERCENT AUTO 6 % (0-6); Hematocrit 23.4 % (33.0-51.0); Hemoglobin 7.3 g/dL (11.5-16.0); IMMATURE GRAN ABSOLUTE AUTO 0.05 K/mm3 (0.00-0.10); IMMATURE GRAN PERCENT AUTO 1 % (0-1); LYMPHOCYTES ABSOLUTE AUTO 0.62 K/mm3 (0.84-5.20); LYMPHOCYTES PERCENT AUTO 6 % (21-46); MONOCYTES ABSOLUTE AUTO 1.35 K/mm3 (0.16-1.47); MONOCYTES PERCENT AUTO 13 % (4-13); Mean Corpuscular HGB 30.9 pg (26.0-34.0); Mean Corpuscular HGB Conc 31.2 g/dL (31.5-36.5); Mean Corpuscular Volume 99 fL (80-100); Mean Platelet Volume 10.3 fL (9.1-12.4); NEUTROPHILS ABSOLUTE AUTO 7.74 K/mm3 (1.96-9.15); NEUTROPHILS PERCENT AUTO 74 % (41-73); Platelet Count 354 K/mm3 (150-400); RDW Standard Deviation 57.7 fL (35.1-46.3); Red Blood Cell Count 2.36 M/mm3 (3.80-5.20); White Blood Cell Count 10.46 K/mm3 (4.00-11.30)
[2021-11-18 04:44] LABS: Albumin, Blood 1.9 g/dL (3.4-5.0); Anion Gap 7 mmol/L (6-16); Blood Urea Nitrogen 63 mg/dL (8-24); Bun/Creatinine Ratio 13.6 (12.0-20.0); CO2, Blood 28 mmol/L (21-32); Calcium, Blood 8.4 mg/dL (8.5-10.1); Chloride, Blood 102 mmol/L (98-108); Creatinine, Blood 4.64 mg/dL (0.40-1.00); Glomerular Filtration Rate 11 (60-); Glucose, Blood 165 mg/dL (70-99); Magnesium, Blood 2.2 mg/dL (1.6-2.4); Phosphorus, Blood 4.6 mg/dL (2.5-4.9); Potassium, Blood 4.2 mmol/L (3.5-5.5); Sodium, Blood 137 mmol/L (136-145)
--- NOTE | 2021-11-18 06:30 | NUR ---
SUMMARY PATIENT REMAINS INTUBATED AND SEDATED T/O NIGHT. ETT IN PLACE WITH VENT AC 12, TV 350, PEEP 5, FIO2 30% SUCTIONING VERY SMALL AMT OF CLEAR TO WHITE SPUTUM VIA ETT. SEDATION WITH PROPOFOL 35 MCG T/O NIGHT, OPENS EYES TO STIMULI, SLIGHT MOVEMENT SEEN TO HANDS WHEN AWAKE. SPOKE WITH DOCTOR ABIGAIL DURING THE NIGHT AND PLAN TO HAVE WEAN THIS MORNING AFTER DIALYSIS. PERMA CATH IN PLACE TO RIGHT CHEST. OG IN PLACE WITH TUBE FEEDING NEPRO AT GOAL RATE OF 25 CC/HR. PATIENT PASSING FLATUS DURING THE NIGHT, BUT NO BM.
--- NOTE | 2021-11-18 08:00 | NUR ---
INITIAL ASSESSMENT PATIENT INTUBATED AND SEDATED. PATIENT RESPONDING TO PAINFUL STIMULI. PATIENT WEAK WITH LIMITED RANGE. PATIENT AFEBRILE. NO SIGNS OF PAIN NOTED AT THIS TIME. PATIENT ON VENT SETTINGS OF AC 12, TV 350, PEEP 5 AND 30% FIO2. LUNGS CLEAR IN UPPER LOBES AND DIMINISHED IN LOWER LOBES. SCANT AMOUNT OF WHITE, FROTHY SPUTUM NOTED WHEN SUCTIONED. PATIENT IN SR, HR 60S TO 80S. SBP 160S TO 170S. DOPPLER PULSES IN BILAT FEET. EDEMA NOTED TO ALL EXTREMITIES. OG IN PLACE. NEPRO TF INFUSING AT GOAL RATE OF 25 ML/ HOUR WITH 30 ML WATER FLUSH Q4H. HOLLINGSWORTH DRAINING YELLOW COLORED URINE. R CALF HEMATOMA NOTED. PERMACATH NOTED TO R CHEST. SCATTERED BRUISING NOTED T/O BODY. SCAB TO L HEEL AND RLE. PRESSURE WOUND WITH ESCHAR NOTED TO R HEEL; FOUL ODOR PRESENT EVEN AFTER CLEANING. MEPILEX HEEL DRESSINGS REPLACED. PROPOFOL AT 35 MCG/ KG/ MINUTE AND NS TKO. BED LOW, CALL LIGHT IN REACH. WILL CONTINUE TO MONITOR FREQUENTLY THROUGHOUT SHIFT.
--- NOTE | 2021-11-18 10:39 | NUR ---
DR. REED UPDATED ON PATIENT STATUS. INFORMED THAT SBP 160S TO 170S DESPITE PATIENT RECEIVING AM HTN MEDICATIONS. INFORMED THAT PATIENT RECEIVING DIALYSIS AT THIS TIME. INFORMED THAT PRESSURE WOUND WITH ESCHAR TO R HEEL IS VERY FOUL SMELLING EVEN THOUGH WAS CLEANED THIS AM. INFORMED THAT NOT ON DVT PROPHYLAXIS BESIDES SCDS BUT THAT PATIENT HAS SUSPECTED "HEMATOMA" TO R CALF NO SCDS NOT IN PLACE. ORDER RECEIVED FOR WOUND CONSULT FOR R HEEL. NO OTHER ORDERS RECEIVED AT THIS TIME.
--- NOTE | 2021-11-18 13:00 | NUR ---
PATIENT AFEBRILE. PATIENT ON SEDATION VACATION. PATIENT ANXIOUS AT TIMES. PATIENT HAS EYES OPEN AND IS TRACKING NURSE. PATIENT IS NOT FOLLOWING ANY COMMANDS AT THIS TIME. HR 60S TO 80S. PRN HYDRALAZINE GIVEN FOR SBP IN THE 190S; SBP NOW IN THE 170S. BLOOD SUGAR 142; NO COVERAGE INDICATED. NO OTHER ACUTE CHANGES TO NOTE ON AT THIS TIME. WILL CONTINUE TO MONITOR.
[2021-11-18 13:04] LABS: Vancomycin, Random 13.1 ug/mL
--- NOTE | 2021-11-18 14:03 | NUR ---
PATIENT CHANGED TO SPONTANEOUS PRESSURE SUPPORT OF 12/5 AND 30% FIO2 BY RT.
--- NOTE | 2021-11-18 15:00 | NUR ---
PATIENT DECREASED TO SPONTANEOUS PRESSURE SUPPORT 5/5, 30% FIO2 BY DR. REED.
--- NOTE | 2021-11-18 15:00 | NUR ---
DR. REED INFORMED THAT PATIENT SBP CONTINUES TO BE IN 170S. INFORMED THAT NO OTHER PRN HTN MEDICATIONS AVAILABLE TO GIVE ON EMAR. DR. REED STATED THAT SBP IN THE 170S IS OKAY. NO ORDERS RECEIVED AT THIS TIME.
--- NOTE | 2021-11-18 15:03 | NUR ---
Review of pt with team. pt declining pituitary and metaboic function. coupled with end stage renal falure and dialysis, vacular disease and wounds, couple with post cardiac arrest and intra oseous access make pt high risk for sudden and infection. her kps score is 30%. Any further complications or cannot wean off vent. Pt may be better served by hospice. She has continued to decline and her suffering has been great. Will review with care managers. Mother not capable of manging her. brother needs to take guardianship.
--- NOTE | 2021-11-18 16:00 | NUR ---
PATIENT HAS TEMP OF 100.1 DEGREES FAHRENHEIT. HR 70S TO 80S. SBP IN THE 160S. PATIENT ON SPONTANEOUS PRESSURE SUPPORT 5/5 AND 30% FIO2. NO OTHER ACUTE CHANGES TO NOTE ON AT THIS TIME. WILL CONTINUE TO MONITOR.
--- NOTE | 2021-11-18 18:36 | NUR ---
SHIFT SUMMARY PATIENT REMAINS INTUBATED. PATIENT PLACED ON SEDATION VACATION AND WEAN TODAY AND REMAINS OFF SEDATION AND ON SPONTANEOUS PRESSURE SUPPORT 5/5 AND 30% FIO2. PATIENT TRACKING NURSE AND STARTING TO NOD AND SHAKE HEAD TO ANSWER YES AND NO QUESTIONS. PATIENT ABLE TO COMMUNICATE THAT SHE WANTS TO BE PUT BACK ON SEDATION FOR SLEEP. ASKED PATIENT IF OKAY TO LEAVE OFF SO NIGHT NURSE CAN ASSESS HER AND THEN THEY CAN PUT HER TO SLEEP AFTER THAT. PATIENT NODDED HEAD "YES". PATIENT WEAK BUT ABLE TO MOVE ALL EXTREMITIES. PATIENT HAD TMAX OF 100.5 DEGREES FAHRENHEIT. LUNGS REMAINED CLEAR IN UPPER LOBES AND DIMINISHED IN LOWER LOBES. PATIENT REMAINED IN SR, HR 60S TO 90S. SBP 150S TO 190S. PRN HYDRALAZINE GIVEN OT. NORVASC PT SCHEDULED AND STARTED TODAY FOR CONTINUED HTN. NO BM THIS SHIFT. TF REMAINS AT GOAL RATE. NO CHANGES TO SKIN NOTED. WOUND CARE PERFORMED TO R HEEL. PATIENT REPOSITIONED Q2H. WOUND CONSULT PLACED FOR R HEEL. NS INFUSING TKO. BLOOD SUGARS 142 AND 232. PATIENT HAD DIALYSIS TODAY; 1.5 L OFF. VANCO GIVEN THIS SHIFT. PATIENT APPEARS COMFORTABLE AT THIS TIME. BED LOW, CALL LIGHT IN REACH. REPORT WILL BE GIVEN TO ASSUMING SHANK BURNISHER NURSE SHORTLY.
--- NOTE | 2021-11-18 21:04 | NUR ---
PATIENT RESTING QUIETLY EYES OPEN, APPEARS TO TRACK NURSING STAFF AROUND THE ROOM. AT TIMES NODDING HEAD SLIGHTLY YES AND NO TO QUESTIONS. FOLLOWING SIMPLE DIRECTIONS. PROPOFOL REMAINS OFF. ETT IN PLACE WITH VENT SPONT 5/5 FIO2 30% SUCTIONING SMALL AMT OF WHITE SPUTUM VIA ETT. OG IN PLACE WITH NEPRO AT GOAL RATE OF 25 CC/HR. PATIENT DIAPHORETIC RANDOM GLUCOSE CHECK 215. TEMP 100.3 VIA TEMP PROBE HOLLINGSWORTH. PERMA CATH TO RIGHT CHEST WALL WITH DRESSING CD&I. PLAN TO PLACE PATIENT BACK TO AC IF HER RESP RATE > 30 OR HER VT < 300 PER DOCTOR REED
--- NOTE | 2021-11-19 00:44 | NUR ---
AFTER BED BATH PATIENT RESTLESS AND COUGHING, SUCTIONED SMALL AMT THICK LIGHT YELLOW SPUTUM. PATIENT NODING YES AND NO TO QUESTIONS AND FOLLOWING DIRECTIONS WELL. REACHING FOR ETT WHEN UNRESTRAINED. PATIENT CONTINUES TO GAG AND COUGH, BECOMING TEARFUL. NODING YES TO BEING TIRED AND WANTING TO SLEEP. RT CALLED AND VENT CHANGED TO AC VC+ 12/350/5/30% AND PROPOFOL RESTARTED AT 25 MCG
[2021-11-19 04:43] LABS: BASOPHILS ABSOLUTE AUTO 0.05 K/mm3 (0.00-0.23); BASOPHILS PERCENT AUTO 0 % (0-2); EOSINOPHILS ABSOLUTE AUTO 0.38 K/mm3 (0.00-0.68); EOSINOPHILS PERCENT AUTO 3 % (0-6); Hematocrit 24.7 % (33.0-51.0); Hemoglobin 7.6 g/dL (11.5-16.0); IMMATURE GRAN ABSOLUTE AUTO 0.07 K/mm3 (0.00-0.10); IMMATURE GRAN PERCENT AUTO 1 % (0-1); LYMPHOCYTES ABSOLUTE AUTO 0.53 K/mm3 (0.84-5.20); LYMPHOCYTES PERCENT AUTO 5 % (21-46); MONOCYTES ABSOLUTE AUTO 1.34 K/mm3 (0.16-1.47); MONOCYTES PERCENT AUTO 12 % (4-13); Mean Corpuscular HGB 30.4 pg (26.0-34.0); Mean Corpuscular HGB Conc 30.8 g/dL (31.5-36.5); Mean Corpuscular Volume 99 fL (80-100); Mean Platelet Volume 10.1 fL (9.1-12.4); NEUTROPHILS ABSOLUTE AUTO 9.28 K/mm3 (1.96-9.15); NEUTROPHILS PERCENT AUTO 80 % (41-73); Platelet Count 379 K/mm3 (150-400); RDW Coefficient Variation 15.8 % (11.7-14.2); RDW Standard Deviation 56.8 fL (35.1-46.3); White Blood Cell Count 11.65 K/mm3 (4.00-11.30)
[2021-11-19 04:58] LABS: Albumin, Blood 1.8 g/dL (3.4-5.0); Anion Gap 7 mmol/L (6-16); Blood Urea Nitrogen 41 mg/dL (8-24); Bun/Creatinine Ratio 12.5 (12.0-20.0); CO2, Blood 28 mmol/L (21-32); Calcium, Blood 8.1 mg/dL (8.5-10.1); Chloride, Blood 104 mmol/L (98-108); Creatinine, Blood 3.27 mg/dL (0.40-1.00); Glomerular Filtration Rate 17 (60-); Glucose, Blood 209 mg/dL (70-99); Magnesium, Blood 2.1 mg/dL (1.6-2.4); Phosphorus, Blood 3.4 mg/dL (2.5-4.9); Potassium, Blood 3.7 mmol/L (3.5-5.5); Sodium, Blood 139 mmol/L (136-145)
--- NOTE | 2021-11-19 06:18 | NUR ---
SUMMARY PATIENT RESTING QUIETLY, AWAKENS EASILY, FOLLOWING DIRECTIONS AND NODING YES AND NO TO QUESTIONS. CONTINUES TO REACH UP TO ETT DESPITE REMINDING PATIENT TO NOT REACH FOR IT. PROPOFOL 25 MCG TO HELP PATIENT GRISEL ETT. VENT AC VC+ 12, TV 350, PEEP 5, FIO2 30% SUCTIONING A FEW YELLOW PLUGS VIA ETT AFTER PATIENT HAVING A LOT OF COUGHING WHEN ATTEMPTING TO DECREASE SEDATION. OG REMAINS IN PLACE WITH NEPRO AT GOAL RATE OF 25 CC/HR.
--- NOTE | 2021-11-19 08:00 | NUR ---
INITIAL ASSESSMENT PATIENT INTUBATED AND PROPOFOL PLACED ON SB THIS AM. PATIENT NODDING/ SHAKING HEAD TO ANSWER YES AND NO QUESTIONS. PATIENT ABLE TO FOLLOW SOME SIMPLE COMMANDS. WEAK AND LIMITED ROM DUE TO DWARFISM BUT IS ABLE TO MOVE ALL EXTREMITIES. PATIENT ANXIOUS AT TIMES. PRN FENTANYL GIVEN THIS AM AFTER PATIENT NODDED "YES" TO BEING IN PAIN. PATIENT AFEBRILE. PATIENT ON SPONTANEOUS PRESSURE SUPPORT 7/5 AND 30% FIO2. LUNGS CLEAR IN UPPER LOBES AND DIMINISHED IN LOWER LOBES. SMALL AMOUNT OF THICK, YELLOW/ BROWN SPUTUM BEING SUCTIONED FROM ETT. PATIENT IN SR, HR 70S TO 80S. SBP IN THE 180S. ALL EXTREMITIES EDEMATOUS. DOPPLER PULSES TO BILAT FEET. LAST BM 3 DAYS AGO PER DOCUMENTATION. TF INFUSING AT GOAL RATE. HOLLINGSWORTH DRAINING YELLOW COLORED URINE. SCATTERED BRUISES NOTED. PERMACATH TO R CHEST WALL. SCAB TO L HEEL AND RLE. PRESSURE ULCER WITH ESCHAR TO R HEEL; FOUL SMELLING. WOUND CARE CONSULT PLACED YESTERDAY. NS INFUSING TKO. BED LOW, CALL LIGHT IN REACH. WILL CONTINUE TO MONITOR PATIENT FREQUENTLY THROUGHOUT SHIFT.
[2021-11-19 09:08] LABS: Vancomycin, Random 25.9 ug/mL
--- NOTE | 2021-11-19 10:10 | NUR ---
DR. REED UPDATED ON PATIENT STATUS. INFORMED THAT WBCS INCREASED ON LABS THIS AM. TF PLACED ON SB AND OG FLUSHED PER DR. REED MAY EXTUBATE TODAY. NO OTHER ORDERS RECEIVED AT THIS TIME.
[2021-11-19 11:11] LABS: Base Excess Venous 5.1 mmol/L; Bicarbonate Venous 28.6 mmol/L (24.0-30.0); pH Blood Venous 7.48 (7.34-7.37)
[2021-11-19 11:12] LABS: PO2 Venous 58.6 mmHg (38-42)
--- NOTE | 2021-11-19 11:36 | NUR ---
LEFT MESSAGE WITH WOUND CENTER ABOUT CONSULT PLACED YESTERDAY. ASKED THEM TO COME SEE PATIENT.
--- NOTE | 2021-11-19 12:30 | NUR ---
PATIENT AFEBRILE. PATIENT EXTUBATED AROUND 1140 THIS AM. PATIENT SATTING 90% AND GREATER ON 2 L NC AT THIS TIME. HR IN THE 90S. SBP IN THE 170S. 20 MG LABETALOL IV GIVEN OT FOR HTN. PATIENT ORIENTED TO SELF, FAMILY, HOSPITAL AND FOLLOWING SOME SIMPLE COMMANDS. PATIENT STATED THAT SHE WANTS TO CALL HER . INFORMED THAT HER IS INCARCERATED. PATIENT STATES "HE IS HOME NOW". NURSE UPDATED MOM AND ASKED ABOUT . MOM STATED THAT PATIENT'S IS STILL INCARCERATED AND SHE MUST BE CONFUSED. PATIENT LABILE. PATIENT CALM AND SLEEPING WHEN LEFT ALONE. PATIENT ANXIOUS AND TEARFUL WHEN STAFF IN ROOM. BLOOD SUGAR 256; COVERAGE GIVEN. BED LOW, CALL LIGHT IN REACH. WILL CONTINUE TO MONITOR.
--- NOTE | 2021-11-19 13:12 | NUR ---
Spiritual Care Visit. Pt. is resting in bed but is responsive when I enter the room. Pt. elcomes my visit. Pt. displays evidence of congestion and cough. Pt. verbalizes that she will be discharged to home today. Listen (cautiously) and empathetically with a calm presence. Re-establish some minimal rapport. Pt. displays evidence of not fully understanding the gravity of her health condition. [place] with Pt. and will continue to be available to Pt.
--- NOTE | 2021-11-19 15:20 | NUR ---
WOUND CARE CAME TO SEE PATIENT. INFORMED BY WOUND CARE THAT PATIENT NEEDED REVASCULARIZATION BEFORE SURGICAL CONSULT COULD BE PLACED FOR R HEEL WOUND ESCHAR WOULD NOT HEAL WITHOUT. FOUND IN DOCUMENTATION THAT DR. SHAFFER REVASCULARIZED PATIENT ON 09/19/21. ORDER PLACED FOR R LOWER ARTERIAL DUPLEX TO MAKE SURE PATIENT STILL HAS ADEQUATE CIRCULATION. IF PATIENT DOES HAVE ADEQUATE CIRCULATION THEN, PER DR. REED, SURGICAL CONSULT CAN BE PLACED TO DEBRIDE R HEEL WOUND. WOUND CARE PERFORMED WOUND CARE NURSE RECOMMENDED.
--- NOTE | 2021-11-19 16:54 | NUR ---
PATIENT AFEBRILE. HR IN THE 70S. SBP IN THE 150S. PATIENT ON AVAPS WITH SET RATE OF 12, TV OF 330 AND 3 L O2 BLEED IN. NO OTHER ACUTE CHANGES TO NOTE ON AT THIS TIME. WILL CONTINUE TO MONITOR.
--- NOTE | 2021-11-19 18:44 | NUR ---
SHIFT SUMMARY PATIENT EXTUBATED AROUND 1140 TODAY. PATIENT HAS BEEN LABILE SINCE. PATIENT MOSTLY QUIET AND SLEEPING WHEN STAFF OUT OF ROOM AND THEN ANXIOUS, UPSET AND TEARFUL TO STAFF WHEN STAFF IN ROOM. PATIENT ORIENTED TO SELF, FAMILY AND HOSPITAL. PATIENT ABLE TO FOLLOW SIMPLE COMMANDS. PATIENT IS CONFUSED AT TIMES. PATIENT CAN MOVE ALL EXTREMITIES. PATIENT REMAINED AFEBRILE. PATIENT GIVEN PRN PAIN MEDICATION OT THIS SHIFT FOR COMPLAINT OF PAIN. PATIENT INITIALLY PLACED ON 2 L NC FOLLOWING EXTUBATION BUT LATER HAD TO BE PLACED ON AVAP AT SET RATE OF 12, TV OF 330 AND 3 L O2 BLEED IN BECAUSE OF STRIDOR AND INCREASED WOB. PATIENT WEARS TRILOGY BIPAP AT HOME. PATIENT REMAINED IN SR, HR 70S TO 90S. SBP 150S TO 180S. PATIENT GIVEN PRN HYDRALAZINE IV X 2 THIS SHIFT AND LABETALOL OT. OG DC'D WHEN PATIENT EXTUBATED. NO BM THIS SHIFT. BLOOD SUGARS 256 AND 283. HOLLINGSWORTH DRAINED 250 MLS OF URINE THIS SHIFT. NO DIALYSIS PERFORMED TODAY. WOUND CARE NURSE CAME TO ASSESS PATIENT. WOUND CARE PERFORMED TO R HEEL RECOMMENDED BY TRUCK CRANE OPERATOR HELPER. MEPILEX PLACED TO L HEEL TO PROTECT FROM GETTING PRESSURE SORE. ARTERIAL DUPLEX PERFORMED ON R LEG AND SURGICAL CONSULT ORDERED TO DEBRIDE WOUND. PATIENT REPOSITIONED Q2H. NS INFUSING TKO. PATIENT PASSED NURSE BEDSIDE SWALLOW EVAL, BUT BECAUSE OF STRIDOR EARLIER, DR. REED WANTS PATIENT NPO EXCEPT FOR MEDS AT THIS TIME. CAN REASSESS FOR DIET TOMORROW. ANTIBIOTICS DC'D THIS SHIFT. PATIENT SLEEPING AND APPEARS COMFORTABLE AT THIS TIME. BED LOW, CALL LIGHT IN REACH. REPORT WILL BE GIVEN TO ASSUMING FAN INSTALLER NURSE SHORTLY.
--- NOTE | 2021-11-19 18:45 | NUR ---
Visit made via phone with pt's mother Brooke and brother Bret. Pt's mom speaks about the ordeal of pt coming back to the hospital and Janis needing CPR. She states it changed the way she sees her daughter. Pt's brother Bret states that he is available to help his mom make decisions relating to pt. Palliative care will remain available.
--- NOTE | 2021-11-19 20:00 | NUR ---
ASSUMED CARE PT IS ALERT AND ORIENTATED. PT ANSWERS QUESTIONS APPROPRIATELY, BUT OCCASIONALLY MISUSES WORDS, "I CAN'T WAIT AT NIGHT" WHEN SHE MEANT TO SAY SLEEP. PT RESTRAINTS WERE REMOVED SHE SEEMED TO TOLERATE AVAP AND AGREED TO NOT PULL AT ANY LINES/AVAP. MAP >65 AND SPO2 >92% ON 2L BLEEDING THROUGH AVAP.
--- NOTE | 2021-11-19 20:30 | NUR ---
UPDATE PT HAD FAMILY VISITING AND REQUESTED THAT WE TAKE OFF HER AVAP. NC ON 2L WAS PUT ON AND SOME SLIGHT STRIDOR WAS HEARD. PT'S SATS REMAINED >92% ON 2L NC AND WILL CONTINUE TO MONITOR.
--- NOTE | 2021-11-19 22:30 | NUR ---
UPDATE PT'S VOICE IS COURSE, BUT MAINTAINING GOOD SATS/AIRFLOW. PT ALSO TOLERATED PO MEDS, BUT WHEN GIVEN SIPS OF WATER SHE KEPT ATTEMPTING TO TAKE "BIG" GULPS, CAUSING HER TO COUGH OCCASIONALLY. PT COUGH IS WEAK AND STRIDOR IS HEARD.
[2021-11-20 06:22] LABS: Albumin, Blood 1.7 g/dL (3.4-5.0); Anion Gap 7 mmol/L (6-16); Blood Urea Nitrogen 52 mg/dL (8-24); Bun/Creatinine Ratio 13.8 (12.0-20.0); CO2, Blood 28 mmol/L (21-32); Calcium, Blood 7.6 mg/dL (8.5-10.1); Chloride, Blood 106 mmol/L (98-108); Creatinine, Blood 3.78 mg/dL (0.40-1.00); Glomerular Filtration Rate 14 (60-); Glucose, Blood 231 mg/dL (70-99); Magnesium, Blood 2.2 mg/dL (1.6-2.4); Phosphorus, Blood 4.5 mg/dL (2.5-4.9); Potassium, Blood 4.1 mmol/L (3.5-5.5); Sodium, Blood 141 mmol/L (136-145)
--- NOTE | 2021-11-20 06:31 | NUR ---
SHIFT SUMMARY PT ALERT AND ORIENTED, BUT DID NOT USE WORDS APPROPRIATELY AT TIMES, I.E., I CAN'T WAIT AT NIGHT INSTEAD OF I CAN'T SLEEP. PT ALSO FORGETFUL AT TIMES (SHE FORGOT HER DAUGHTER LEFT ALREADY). MAP >65 AND SPO2 >92% WITH 2L BLEED THROUGH ON AVAP AND 2L NC. PT TOLERATED BEING ON 2L NC, BUT WORE AVAP FOR MOST OF NIGHT. WHEEZING HEARD.
--- NOTE | 2021-11-20 07:00 | NUR ---
ASSUME CARE: I have assumed care of this patient.
[2021-11-20 11:04] LABS: Hemoglobin 7.2 g/dL (11.5-16.0); Mean Corpuscular HGB Conc 31.3 g/dL (31.5-36.5); Mean Corpuscular Volume 99 fL (80-100); Mean Platelet Volume 10.3 fL (9.1-12.4); Platelet Count 376 K/mm3 (150-400); RDW Coefficient Variation 15.4 % (11.7-14.2); RDW Standard Deviation 55.9 fL (35.1-46.3); Red Blood Cell Count 2.32 M/mm3 (3.80-5.20); White Blood Cell Count 8.25 K/mm3 (4.00-11.30)
--- NOTE | 2021-11-20 18:39 | NUR ---
SHIFT SUMMARY: pt changed to PCU status today NEURO: pt awakens easily. Expressive aphasia noted. She is oriented to place and self. Requires reorientation to event and time. Up in chair for about three hours today. Worked with PT/OT/ST as well. CARDIAC: sinus rhythm; BP hypertensive requiring one dose of PRN hydralazine. BP came down after AM antihypertensives given. RESPIRATORY: tolerating 4L NC with some desaturations while sleeping GI/: cleared for diabetic diet today. Tolerating PO well. Requiring coverage for AC blood sugards. No BM today. Mitchell draining clear yellow urine. SKIN: dressings changed to right foot ulcer and PICC line. No new skin breakdown noted. PSYCH/SOCIAL: no family in to visit today.
--- NOTE | 2021-11-20 22:06 | NUR ---
ASSUMED CARE PT IS SITTING UP IN CHAIR RECEIVING DIALYSIS 1600 OFF. WHEN RECIEVING BEDSIDE REPORT PT WAS ALERT AND ORIENTED. PT IS CONFUSED AT TIMES AND HAVING TROUBLE FINDING WORDS TO EXPRESS HERSELF. MAP >65; SPO2 >92% ON 4L NC.
[2021-11-21 03:34] LABS: BASOPHILS ABSOLUTE AUTO 0.06 K/mm3 (0.00-0.23); BASOPHILS PERCENT AUTO 1 % (0-2); EOSINOPHILS ABSOLUTE AUTO 0.29 K/mm3 (0.00-0.68); EOSINOPHILS PERCENT AUTO 3 % (0-6); Hematocrit 23.9 % (33.0-51.0); Hemoglobin 7.7 g/dL (11.5-16.0); IMMATURE GRAN ABSOLUTE AUTO 0.09 K/mm3 (0.00-0.10); IMMATURE GRAN PERCENT AUTO 1 % (0-1); LYMPHOCYTES ABSOLUTE AUTO 0.84 K/mm3 (0.84-5.20); LYMPHOCYTES PERCENT AUTO 8 % (21-46); MONOCYTES ABSOLUTE AUTO 1.13 K/mm3 (0.16-1.47); MONOCYTES PERCENT AUTO 10 % (4-13); Mean Corpuscular HGB 31.2 pg (26.0-34.0); Mean Corpuscular HGB Conc 32.2 g/dL (31.5-36.5); Mean Corpuscular Volume 97 fL (80-100); Mean Platelet Volume 9.9 fL (9.1-12.4); NEUTROPHILS ABSOLUTE AUTO 8.55 K/mm3 (1.96-9.15); NEUTROPHILS PERCENT AUTO 78 % (41-73); Platelet Count 443 K/mm3 (150-400); RDW Coefficient Variation 15.4 % (11.7-14.2); RDW Standard Deviation 54.8 fL (35.1-46.3); Red Blood Cell Count 2.47 M/mm3 (3.80-5.20); White Blood Cell Count 10.96 K/mm3 (4.00-11.30)
[2021-11-21 03:49] LABS: Albumin, Blood 1.9 g/dL (3.4-5.0); Anion Gap 8 mmol/L (6-16); Blood Urea Nitrogen 33 mg/dL (8-24); Bun/Creatinine Ratio 11.1 (12.0-20.0); CO2, Blood 31 mmol/L (21-32); Calcium, Blood 7.9 mg/dL (8.5-10.1); Chloride, Blood 99 mmol/L (98-108); Creatinine, Blood 2.96 mg/dL (0.40-1.00); Glomerular Filtration Rate 19 (60-); Glucose, Blood 132 mg/dL (70-99); Phosphorus, Blood 3.1 mg/dL (2.5-4.9); Potassium, Blood 3.4 mmol/L (3.5-5.5); Sodium, Blood 138 mmol/L (136-145)
--- NOTE | 2021-11-21 06:05 | NUR ---
SHIFT SUMMARY PT HAS BEEN ALERT AND ORIENTED WITH INTERMITTANT CONFUSION AND DIFFICULTY FINDING WORDS. SBP >160, MAP >65. SPO2 >92% ON AVAP WHILE SLEEPING AND NC WHEN TAKING PO MEDICATIONS. [place] DRAINING TO GRAVITY. PT UNDERWENT DIALYSIS AND 1600 WAS PULLED OFF. WHEN WAKING UP THIS MORNING PT WAS EXPERIENCING PAIN IN HER RIGHT HEEL AND NORCO WAS GIVEN PER EMAR. PT SLEPT THROUGHOUT NIGHT WILL REPORT TO THE AM RN WHEN AVAILABLE.
--- NOTE | 2021-11-21 07:33 | NUR ---
ASSUME CARE: I assumed care of this patient at 0700.
--- NOTE | 2021-11-21 17:55 | NUR ---
SHIFT SUMMARY: NEURO: expressive aphasia still present, though not as severe as yesterday. Pt up in chair again today. Worked with PT/OT/ST again. Bed replaced with speciliazed bed for pt so that she can stand from the edge. One dose of PRN norco given for back pain. CARDIAC: SR; BPs stable RESPIRATORY: requiring increasing oxygen requirements throughout the day. This was discussed with Dr. No who states this is likely pulmonary edema. Currently on 6L NC. Home CPAP bleed in increased from 3L to 5L. Pt was on her home CPAP for a few hours today while sleeping. Still with mild barkey cough. GI/GI: morrison catheter removed today. No BM. PRN colase given. Pt tolerating PO meals well. AC/HS blood sugars requiring coverage. SKIN: right heel wound cleaned and dressed per orders.
--- NOTE | 2021-11-21 20:10 | NUR ---
ASSUMED CARE PT UP IN CHAIR ALERT AND ORIENTED WITH FAMILY. PT STILL HAVING DIFFICULTY FINDING THE RIGHT WORDS TO SAY WITH SOME SLIGHT CONFUSION. MAP >65, SBP <165. SPO2 >92% ON 5L NC.
--- NOTE | 2021-11-21 20:11 | NUR ---
UPDATE PT MOTHER AND TWO NEICES WERE AT BEDSIDE AT SHIFT CHANGE AND WAS INFORMED ABOUT THE HOSPITAL POLICY OF VISITING HOURS ENDING AT 7PM. THE MOTHER STATED THAT THEY WERE WAITING FOR A CALL FROM THE PT (HE'S INCARCERATED), THIS RN SAID THAT THEY COULD STAY UNTIL 8PM. AT 8PM THEIR WAS STILL NO PHONE CALL AND THEY WERE ASKED TO LEAVE. PT MOTHER WAS LEAVING AND SAYING GOOD BYE, SHE SPECIFICALLY STATED TO THE PATIENT TO "NOT SIGN ANY PAPER WORK TOMORROW" AND THAT SHE WASN'T GOING TO GIVE UP GUARDIANSHIP. LASTLY SHE STATED THAT SHE WOULD BE BACK TOMORROW NIGHT TO VISIT.
--- NOTE | 2021-11-21 22:26 | NUR ---
UPDATE PT URINATED TWICE SO FAR. FIRST ONE SHE STATED SHE DIDN'T NOTICE PEEING OR THE WETNESS. SECOND TIME SHE ASKED FOR A BEDPAN. BEDCHANGE WAS NEEDED BOTH TIMES.
--- NOTE | 2021-11-22 00:38 | NUR ---
UPDATE 0000 CBG CHECKED AND GLUCOSE 431. CALL MADE TO HOSPITALIST WHO PROVIDED NEW ORDER FOR ONE TIME DOSE OF 5 UNITS HUMALOG SQ, FOLLOWED BY A RECHECK IN TWO HOURS.
--- NOTE | 2021-11-22 02:24 | NUR ---
UPDATE WHEN CHECKING HER 0200 CBG AND REPOSITIONING, I NOTICED THAT SHE WAS FAIRLY DIAPHORETIC. HER CBG HAD COME DOWN TO 348 FROM 431 AFTER RECEIVING 5 UNITS OF HUMILOG PER ORDER. DISCUSSED WITH GOMEZ BERRY AND WILL CONTINUE TO MONITOR.
[2021-11-22 04:03] LABS: BASOPHILS ABSOLUTE AUTO 0.05 K/mm3 (0.00-0.23); BASOPHILS PERCENT AUTO 0 % (0-2); EOSINOPHILS ABSOLUTE AUTO 0.44 K/mm3 (0.00-0.68); EOSINOPHILS PERCENT AUTO 4 % (0-6); Hematocrit 24.5 % (33.0-51.0); Hemoglobin 7.9 g/dL (11.5-16.0); IMMATURE GRAN ABSOLUTE AUTO 0.15 K/mm3 (0.00-0.10); IMMATURE GRAN PERCENT AUTO 1 % (0-1); LYMPHOCYTES ABSOLUTE AUTO 0.77 K/mm3 (0.84-5.20); LYMPHOCYTES PERCENT AUTO 7 % (21-46); MONOCYTES ABSOLUTE AUTO 1.24 K/mm3 (0.16-1.47); MONOCYTES PERCENT AUTO 11 % (4-13); Mean Corpuscular HGB 31.3 pg (26.0-34.0); Mean Corpuscular HGB Conc 32.2 g/dL (31.5-36.5); Mean Corpuscular Volume 97 fL (80-100); Mean Platelet Volume 9.8 fL (9.1-12.4); NEUTROPHILS ABSOLUTE AUTO 8.47 K/mm3 (1.96-9.15); NEUTROPHILS PERCENT AUTO 76 % (41-73); Platelet Count 467 K/mm3 (150-400); RDW Coefficient Variation 14.8 % (11.7-14.2); RDW Standard Deviation 51.9 fL (35.1-46.3); Red Blood Cell Count 2.52 M/mm3 (3.80-5.20); White Blood Cell Count 11.12 K/mm3 (4.00-11.30)
[2021-11-22 04:25] LABS: Albumin, Blood 2.1 g/dL (3.4-5.0); Anion Gap 6 mmol/L (6-16); Blood Urea Nitrogen 49 mg/dL (8-24); Bun/Creatinine Ratio 11.8 (12.0-20.0); CO2, Blood 30 mmol/L (21-32); Calcium, Blood 8.3 mg/dL (8.5-10.1); Chloride, Blood 98 mmol/L (98-108); Creatinine, Blood 4.14 mg/dL (0.40-1.00); Glomerular Filtration Rate 13 (60-); Glucose, Blood 326 mg/dL (70-99); Magnesium, Blood 2.2 mg/dL (1.6-2.4); Phosphorus, Blood 4.1 mg/dL (2.5-4.9); Potassium, Blood 4.4 mmol/L (3.5-5.5); Sodium, Blood 134 mmol/L (136-145)
--- NOTE | 2021-11-22 06:17 | NUR ---
SHIFT SUMMARY PT
--- NOTE | 2021-11-22 06:17 | NUR ---
SHIFT SUMMARY PT IS ALERT AND ORIENTED WITH MAYBE SOME SLIGHT CONFUSION. HER EXPRESSIVE APHASIA SEEMS WORSE IN THE MORNING. BLOOD PRESSURES HAVE BEEN STABLE WITH SBP IN THE 140'S-150'S; MAP >65. SPO2 >92% ON 5L AVAP OR 4L NC. SHE DESATS FAIRLY QUICKLY WITH FLAT BED DURING REPOSITION/BED CHANGE. SHE URINATED 3 TIMES TONIGHT AND ONLY NOTICED/ASKED FOR HELP WITH BEDPAN FOR THE SECOND ONE. SEEMED TO HAVE A DECENT AMOUNT OF OUTPUT. ADDED NEW MEPILEX TO THE LEFT HEEL. BLOOD SUGARS HAVE BEEN STEADILY COMING DOWN WITH 5 UNITS ADMINISTERED AT MIDNIGHT PER ORDER.
[2021-11-23 05:08] LABS: Hematocrit 24.8 % (33.0-51.0); Hemoglobin 7.9 g/dL (11.5-16.0)
[2021-11-23 06:07] LABS: Albumin, Blood 2.1 g/dL (3.4-5.0); Anion Gap 6 mmol/L (6-16); Blood Urea Nitrogen 34 mg/dL (8-24); Bun/Creatinine Ratio 10.4 (12.0-20.0); CO2, Blood 31 mmol/L (21-32); Calcium, Blood 8.6 mg/dL (8.5-10.1); Chloride, Blood 100 mmol/L (98-108); Creatinine, Blood 3.28 mg/dL (0.40-1.00); Glomerular Filtration Rate 17 (60-); Glucose, Blood 248 mg/dL (70-99); Magnesium, Blood 2.3 mg/dL (1.6-2.4); Phosphorus, Blood 3.3 mg/dL (2.5-4.9); Potassium, Blood 4.1 mmol/L (3.5-5.5); Sodium, Blood 137 mmol/L (136-145)
--- NOTE | 2021-11-23 06:48 | NUR ---
SHIFT SUMMARY NEURO: PATIENT LATHARGIC THROUGHOUT SHIFT. OCCASIONALLY TEARFUL AND WORD-SEARCHING. APHASIC AND HAVING DIFFICULTY WITH COMMUNICATION. FREQUENTLY REPEATS REQUESTS. COMPLAINS OF BACK PAIN. CARDIO: BP ELEVATED, GAVE ONE DOSE OF PRN HYDRALAZINE. HR 70'S ON MONITOR, SINUS RHYTHM BBB. RESP: 2LNC LUNGS DIMINISHED. NEEDS REMINDERS TO BREATH THROUGH NOSE. TACHYPNIC WITH ACTIVITY. GI/: 2 EPISODES OF INCONTINENCE. NO BM THIS SHIFT. SKIN: WOUND ON HEEL, COVERED WITH MEPILEX. GENERALIZED EDEMA. PALE SKIN. MOBILITY: STOOD X 2 WITH COMPLAINTS OF PAIN OTHER: SLEPT MOST OF SHIFT
--- NOTE | 2021-11-23 10:00 | NUR ---
PT AWAKES, TEARFUL, YELLING AT STAFF "I'M NOT GETTING IN THAT BED, DON'T TOUCH ME". W/ CONSOLATION & VERBAL REDIRECTION PT ABLE TO CALM DOWN. PT IS GENERALLY UNMOTIVATED TO PARTICIPATE W/ RN IN ASSESSMENTS. APHASIC @ TIMES, EASILY FRUSTRATED W/ WORD FINDING. ATE MINIMAL BREAKFAST. HTN IMPROVING AFTER SCHED MEDS. HOSPITALIST @ BEDSIDE FOR AM ROUNDS. NO NEW ORDERS. PLAN TO ENCOURAGE PT TO SHOWER LATER TODAY.
--- NOTE | 2021-11-23 15:00 | NUR ---
PT INCREASINGLY TEARFUL, CALLING OFTEN, UNABLE TO GET COMFORTABLE DESPITE POSITION CHANGES. REFUSING HYGIENE. PT MEDICATED FOR PAIN. WILL ADDRESS SHOWER ONCE PT IS MORE COOPERATIVE.
--- NOTE | 2021-11-23 16:36 | NUR ---
PT's SPIRITS ARE MUCH IMPROVED. AFTER MUCH ENCOURAGEMENT, PT AGREED TO A BED BATH. SHE WAS ABLE TO STAND FOR 2-3min AT A TIME W/ 1p ASSIST. HAIR WASHED, BRUSHED. FOLDS DRIED & POWDERED. ALL LINENS CHANGED. HEEL WOUNDS CLEANSED, BRUSHED W/ BETADINE & DRESSED.
--- NOTE | 2021-11-23 17:41 | NUR ---
UPDATE: CAREGIVER CONCERNS PT'S MOTHER ARRIVES @ BEDSIDE, UPDATED ON THE DAY'S EVENTS. WHILE OBSERVING PT RECEIVE HER INSULIN, MOTHER EXPRESSED HER CONCERN THAT SHE IS OFTEN VERY CONFUSED BY ALLAN's INSULIN REGIMEN. SHE ADMINS INSULIN TO THE PT BASED ON HOME GLUCOMETER BUT STS SHE DOES NOT KNOW "WHICH KIND TO GIVE IF SHE IS REALLY HIGH AFTER SHE EATS" ALSO WHEN SHE SHOULD RECEIVE LONG-ACTING INSULIN vs SHORT-ACTING. DESPITE BEDSIDE EDUCATION, MOTHER IS UNABLE TO VERB UNDERSTANDING, THOUGH SHE DOES APPEAR RECEPTIVE TO LEARNING. REQUESTS THAT THE SLIDING SCALE & INSULIN Rx BE WRITTEN OUT SO SHE CAN REFERENCE IT & "NOT FORGET WHICH IS WHICH".
--- NOTE | 2021-11-23 18:00 | NUR ---
SHIFT SUMMARY: PT IMPROVED T/O THE DAY, MENTATION CLEARING, MOOD MORE STABLE, SPEECH MORE COHERENT W/ NOTABLY LESS WORD SEARCHING. APPEARS RECEPTIVE TO PARTICIPATING IN CARE. MOTHER CAME TO VISIT TODAY & REMAINS @ BEDSIDE. CONVERSATIONS AMICABLE. PT TRIALED ON RA, SPO2 MAINTAINING >90%, NO S/Sx DYSPNEA NOTED.
--- NOTE | 2021-11-23 19:00 | NUR ---
ASSUMED CARE OF PATIENT AT THIS TIME. PATIENT SITTING UP IN RECLINER. ALLERGIES NOTED AND MEDICATIONS REVIEWED. PATIENT COMPLAINS OF BACK PAIN. REPOSITIONED IN CHAIR.
[2021-11-24 04:55] LABS: Hematocrit 26.1 % (33.0-51.0); Hemoglobin 8.4 g/dL (11.5-16.0)
--- NOTE | 2021-11-24 05:00 | NUR ---
SHIFT SUMMARY NEURO: PATIENT MENTAL STATUS IMPROVING. IRRITABLE AND NON-COMPLIANT WITH REPOSITIONING. COMPLAINTS OF BACK PAIN. PRN PAIN MEDS GIVEN PER EMAR. CORONA WITH POOR ROM. CARDIAC: VSS OVERNIGHT. HR 70'S SR W/ BBB. BP SLIGHTLY ELEVATED OVERNIGHT. NO CP OR SOB. RESP: RA MOST OF NIGHT. REFUSING CPAP STATING "I ONLY HAVE TO WEAR IT 4 HOURS SO I WILL ONLY WEAR IT 4 HOURS." CPAP ON WHILE SLEEPING. O2 MAINTAINING >95% GI: NO BM BUT PASSING GAS FREQUENTLY. NON TENDER :ONE EPISODE OF INCONTINENCE IN CHAIR SKIN: DRESSINGS ON FEET IN PLACE. SKIN PALE AND FRAGILE. OTHER: PATIENT REQUESTING TO SLEEP IN RECLINER. STATES THAT SHE WILL NOT GO BACK TO BED.
[2021-11-24 05:12] LABS: Albumin, Blood 2.1 g/dL (3.4-5.0); Anion Gap 6 mmol/L (6-16); Blood Urea Nitrogen 45 mg/dL (8-24); Bun/Creatinine Ratio 11.7 (12.0-20.0); CO2, Blood 30 mmol/L (21-32); Calcium, Blood 8.7 mg/dL (8.5-10.1); Chloride, Blood 101 mmol/L (98-108); Creatinine, Blood 3.84 mg/dL (0.40-1.00); Glomerular Filtration Rate 14 (60-); Glucose, Blood 206 mg/dL (70-99); Magnesium, Blood 2.2 mg/dL (1.6-2.4); Phosphorus, Blood 3.6 mg/dL (2.5-4.9); Potassium, Blood 4.6 mmol/L (3.5-5.5); Sodium, Blood 137 mmol/L (136-145)
--- NOTE | 2021-11-24 07:49 | NUR ---
DR CASTANEDA @ BEDSIDE FOR AM ROUNDS. NEW ORDERS RECEIVED FOR 800ml FLUID RESTRICTION.
--- NOTE | 2021-11-24 09:30 | NUR ---
REPEATEDLY FOUND TO HAVE HAD LARGE INCONTINENT VOID. WHEN ASKED IF SHE IS TRULY INCONTINENT OR IF SHE FEELS THE URGE TO VOID. STS SHE DOES FEEL THE URGE. ENCOURGED TO CALL & EDUCATED ON THE IMPORTANCE OF REMAINING CLEAN & DRY. PT DISPLAYS NO EVIDENCE OF LEARNING. INITIALLY RESISTENT TO BEING CLEANED. DISCUSSED CONCERNS ABOVE W/ HOSP, VERBAL ORDERS RECEIVED FOR EXTERNAL CATH
--- NOTE | 2021-11-24 10:06 | NUR ---
PT GIVEN FULL BED BATH. ESCORTED TO DIALYSIS.
--- NOTE | 2021-11-24 13:45 | NUR ---
UPDATE: ALY-PAD CHANGED. PILLOWS PLACED UNDER PT FOR BETTER WEIGHT DISTRIBUTION WHILE SITTING IN THE CHAIR. W/ CHAIR RECLINED, TORSO PROPPED UP & HEELS FLOATED, PT REPORTS MORE EASE OF BREATHING. R HEEL MORE PAINFUL TODAY. ONLY ABLE TO STAND W/ ASSISTANCE IN 1min INTERVALS.
--- NOTE | 2021-11-24 18:16 | NUR ---
UPDATE: TRANSFER TO [facility] REPORT GIVEN TO KRISTI FLOYD. TRANSFERRED VIA RECLINER.
--- NOTE | 2021-11-24 19:53 | NUR ---
PATIENT AWAKE IN RECLINING CHAIR. PATIENT VERBALIZED THAT SHE WANTS TO SLEEP IN THE CHAIR TONIGHT BECAUSE IT IS EASIER TO BREATH. PATIENT ASSISTED WITH REPOSITIONING. BIOX 96% ON RA AT THIS TIME. DRESSING TO RIGHT HEAL CD&I. PERMA CATH TO RIGHT CHEST WALL COVERED WITH 4X4 GAUZE AND SECURED WITH TAPE. PATIENT VERBALIZED THAT SHE IS GOING HOME WITH HER MOM IN 2-3 DAYS. WHEN REMINDED OF NOT BEING HOME MORE THAN 24 HRS, SHE VERBALIZED THAT SHE HAS A 24HR RESEARCH ANTHROPOLOGIST THAT WILL BE HELPING.
--- NOTE | 2021-11-24 21:35 | NUR ---
PATIENT GRISEL PO MEDICATIONS WITHOUT DIFFICULTY. AT TIMES HAVING DIFFICULTY WITH FINDING THE CORRECT WORDS, BUT ABLE TO MAKE NEEDS KNOWN. ABLE TO FEED SELF WITH SLIGHT SUPERVISION. NEEDING FREQUENT REMINDERS THAT SHE IS ON A FLUID RESTRICTION.
--- NOTE | 2021-11-24 22:10 | NUR ---
ATTEMPT TO GET ON BSC. PATIENT UNABLE TO STAND, AND NEEDING A LOT OF ASSISTANCE WITH SITTING AT SIDE OF CHAIR. PATIENT CONTINUES TO REFUSE TO GET INTO BED AT THIS TIME
--- NOTE | 2021-11-24 22:17 | NUR ---
AFTER BRUSHING TEETH WITH MIN ASSIST PATIENT PLACED ON AVAP MASK WITH 2L BLEED IN. RT JERAMY CALLED TO CHECK PLACEMENT.
--- NOTE | 2021-11-25 | NUR ---
PATIENT AWAKE PULLING OFF AVAP, REFUSING TO REPLACE AT THIS TIME. PATIENT REMAINS ON RA. BIOX DOWN TO 88% WHILE WATCHING TV, PATIENT COACHED TO COUGH AND DEEP BREATH. REMAINING ON RA WITH BIOX 90-93%
--- NOTE | 2021-11-25 03:54 | NUR ---
PATIENT SLEEPING WITH AVAP IN PLACE WITH 2L BLEED IN. SLIGHTLY DIAPHORETIC RANDOM GLUCOSE CHECK WITH LAB DRAW GLUCOSE 173.
[2021-11-25 04:10] LABS: Hematocrit 24.8 % (33.0-51.0); Hemoglobin 7.9 g/dL (11.5-16.0)
[2021-11-25 04:27] LABS: Anion Gap 2 mmol/L (6-16); Blood Urea Nitrogen 35 mg/dL (8-24); Bun/Creatinine Ratio 11.3 (12.0-20.0); CO2, Blood 34 mmol/L (21-32); Calcium, Blood 8.2 mg/dL (8.5-10.1); Chloride, Blood 103 mmol/L (98-108); Creatinine, Blood 3.09 mg/dL (0.40-1.00); Glomerular Filtration Rate 18 (60-); Glucose, Blood 186 mg/dL (70-99); Magnesium, Blood 2.2 mg/dL (1.6-2.4); Phosphorus, Blood 2.7 mg/dL (2.5-4.9); Potassium, Blood 4.3 mmol/L (3.5-5.5); Sodium, Blood 139 mmol/L (136-145)
--- NOTE | 2021-11-25 05:46 | NUR ---
SUMMARY PATIENT ABLE TO SLEEP APROX [address] WITH 2L BLEED IN. AWAKENS EASILY CONTINUES TO REFUSE TO GET BACK INTO BED FROM CHAIR AND IS NOT ABLE TO STAND ON SCALE FOR DAILY WEIGHT. INCONT OF LARGE AMT OF URINE THIS MORNING, PATIENT DIDN'T REALIZES THAT SHE WAS WET AND ALSO DIDN'T REALIZE THAT SHE HAD A BM. PATIENT GRISEL PO MEDICATIONS WELL, CONTINUES TO NEED FREQUENT REMINDING REGARDING FLUID RESTRICTIONS. PATIENT CONTINUES TO HAVE DIFFICULTY FINDING HER WORDS AT TIMES. DRESSING TO RIGHT HEAL INTACT WITH KERLIX WRAP. PERMA CATH REMAINS IN PLACE TO RIGHT CHEST.
--- NOTE | 2021-11-25 16:13 | NUR ---
SHIFT SUMMARY: PT ALERT, ORIENTED TO SELF, LOCATION, SITUATION BUT HAS MOMENTS WHERE SHE HAS DIFFICULTY RECALLING WORDS. PT ABLE TO MAKE NEEDS KNOWN. O2 SATS MAINTAINED >92% ON RA, NO LONGER ON TELEMETRY, DENIES CHEST PAIN/SOB. PT REMAINS IN RECLINER, REPOSITIONED TOLERATED, BILATERAL HEELS CLEANED W/BETADINE AND DRESSING CHANGES PERFORMED PER ORDERS. PT C/O PAIN TO BILATERAL FEET T/OUT THE DAY, MEDICATED PER EMAR. INCONTINENCE CONTINUES, PT NOT ABLE TO NOTIFY STAFF WHEN SHE'S VOIDED, ATTENDS IN PLACED, CHANGED NEEDED, REQUIRES 2 PERSON ASSIST TO STAND. NO DIALYSIS TODAY, PLAN IS FOR TOMORROW. AT THIS TIME, PT RESTING QUIETLY IN ROOM W/TV ON AND CALL LIGHT WITHIN REACH. WILL CONTINUE TO MONITOR AND TREAT ACCORDINGLY UNTIL CHANGE OF SHIFT.
--- NOTE | 2021-11-25 22:14 | NUR ---
PT REPORTS THAT SHE IS UNABLE TO FEEL WHEN SHE HAS TO URINATE BUT HAD SOILED THE CHAIR. PT TEARFUL ABOUT THIS AND THE DECISION TO MOVE HER TO THE BED. SPOKE WITH PT AND DECIDED TO PLACE A PUREWICK AT THIS TIME TO ALLOW HER TO STAY IN THE CHAIR.
[2021-11-26 04:13] LABS: Hematocrit 26.9 % (33.0-51.0); Hemoglobin 8.5 g/dL (11.5-16.0)
[2021-11-26 04:34] LABS: Albumin, Blood 2.1 g/dL (3.4-5.0); Anion Gap 6 mmol/L (6-16); Blood Urea Nitrogen 44 mg/dL (8-24); Bun/Creatinine Ratio 11.1 (12.0-20.0); CO2, Blood 31 mmol/L (21-32); Calcium, Blood 8.4 mg/dL (8.5-10.1); Chloride, Blood 103 mmol/L (98-108); Creatinine, Blood 3.95 mg/dL (0.40-1.00); Glomerular Filtration Rate 14 (60-); Glucose, Blood 80 mg/dL (70-99); Magnesium, Blood 2.3 mg/dL (1.6-2.4); Phosphorus, Blood 3.2 mg/dL (2.5-4.9); Potassium, Blood 4.8 mmol/L (3.5-5.5); Sodium, Blood 140 mmol/L (136-145)
--- NOTE | 2021-11-26 06:00 | NUR ---
ELECTRICAL PROSPECTING SUPERVISOR SUMMARY PT REFUSING TO GET INTO BED TO SLEEP. SHE WORE HER CPAP FOR AROUND AN HOUR LAST NIGHT BEFORE TAKING IT OFF. REFUSING TO WEAR IT AGAIN BUT WAS PLACED ON 2L BY NC DUE TO DESATURATION TO 86% WHILE SLEEPING - SATURATION REMAINS >95% ON THE NC WHILE SLEEPING. PT REPORTING THAT HER BLOOD SUGAR FELT "TOO LOW" AND CHECKED, RESULTING AT 114. GIVEN SOME CHEESE PER PT REQUEST. FLUID RESTRICTION ENFORCED. PT INCONTINENT WHILE IN THE CHAIR SO PUREWICK PLACED DUE TO PT SAYING "BUT I DON'T KNOW WHEN I'M GOING." MEDICATED X2 FOR PAIN IN HER BILATERAL FEET LAST NIGHT AND X1 FOR C/O CONSTIPATION. PT VERY ANXIOUS AND TEARFUL. SHE IS PARANOID ABOUT GETTING SICKER. ALERT AND ORIENTED X3. DID NOT STAND AT ALL THIS SHIFT DUE TO PAIN IN HER FEET.
--- NOTE | 2021-11-26 07:49 | NUR ---
Am note Pt waking easily to verbal stimuli, oriented x2 to person and place. Pt denies chest pain/pressure, sob, nausea, dizziness and numb/tingling. Pt reports generalzied pain as "real bad", will medicate per orders. Pt up in recliner, refuing to get back in bed. Ls clear, dim to bases, occasional rhonci noted clear with cough, spo2 >90% on 2l o2 via nc while sleeping, refusing cpap last night per rn. No tele, heart sound distant, bp elevated, hr 81. Abd mild distended, normo active bt this bilateral upper quad, hypoactive to bilateral lower quad, nontender at this time. Bue 1+ pitting edema, ble up to knee 2+ pitting edemat noted. Other vss, pt remains afebrile. Will continue to monitor.
--- NOTE | 2021-11-26 14:29 | NUR ---
Pt stating that her blood sugar is low, stating she feels shaky. cbg completed, wnl. Will continue to monitor.
--- NOTE | 2021-11-26 17:30 | NUR ---
WOUND ASSESSMENT AND PHOTO IN HARD CHART. [facility] ESCHAR IS SOFTENING WITH SLOUGH. WOULD RECOMMEND SURGICAL DEBRIDEMENT IF PT HAS ADEQUATE BLOODFLOW TO HEEL WOUND. IF NOT WOULD RECCOMMEND KEEPING HEEL DRY AND OFFLOADED.
--- NOTE | 2021-11-26 17:48 | NUR ---
Shift Summary No acute changes noted t/o shift. Pt titrated to ra while awake. Discussed pain manangement and wound care with Dr Quispe this am, new order entered. Wound rn to room, reassessed wound and updated orders. vss. no other acute changes noted. Will continue to monitor until report given to oncoming rn.
--- NOTE | 2021-11-26 18:45 | NUR ---
Spiritual Care Request Pt. is awake and welcomes my visit. Pt. is pleasant but displays evidence of a foggy memory. Pt. verbalizes a hope to be discharged and a desrie to have spiritual care when she is home. Assisted Pt. in calling her mother with the bed phone. Prayed with Pt. Pt. verbalized gratitude for the spiritual care visit.
[2021-11-27 03:24] LABS: Hematocrit 26.3 % (33.0-51.0); Hemoglobin 8.4 g/dL (11.5-16.0)
[2021-11-27 03:46] LABS: Albumin, Blood 2.1 g/dL (3.4-5.0); Anion Gap 3 mmol/L (6-16); Blood Urea Nitrogen 31 mg/dL (8-24); CO2, Blood 35 mmol/L (21-32); Calcium, Blood 8.5 mg/dL (8.5-10.1); Chloride, Blood 103 mmol/L (98-108); Creatinine, Blood 2.81 mg/dL (0.40-1.00); Glomerular Filtration Rate 20 (60-); Glucose, Blood 64 mg/dL (70-99); Magnesium, Blood 2.3 mg/dL (1.6-2.4); Phosphorus, Blood 2.5 mg/dL (2.5-4.9); Potassium, Blood 4.4 mmol/L (3.5-5.5); Sodium, Blood 141 mmol/L (136-145)
--- NOTE | 2021-11-27 05:25 | NUR ---
Patient slept most of the night, wore CPAP for a few hours and then pulled it off and wanted a break. 2L NC applied during break and patient desat into 70's, reapplied mask and patient recovered. Elevated SBP 150-190, PRN hydralazine brought SBP to 130's. Patient refused bedbath, saying she wants one in the morning. Used the commode once with scant yellow/clear urine. Reports 10/10 pain in BLE, medicated per emar. Will report to dayshift RN.
--- NOTE | 2021-11-27 07:35 | NUR ---
Am Note Pt alert, orineted to person and place; states its october, unsure of year, states Abe is president and unsure of event. Pt reports pain to ble, will medicate per orders. Pt denies chest pain, sob, nausea, dizziness and numb/tingling. Ls clear, dim to bases, spo2 100% on 2l o2 via nc, titrated to ra, breathing even and unlabored. No tele, bp 160/90, will medicated per orders. Abd soft nontender. Ble edema 1+ pitting edema noted. Other vss. No other acute changes. Will continue to monitor.
--- NOTE | 2021-11-27 17:00 | NUR ---
Shift Summary Pt tearful at times, pt requesting repeatedly to go home, pt educated on the need for safe discharge plan. Pt bp elevated this evening, scheduled medciation administered. Dressing to right heel changed this evening. Other vss. No other acute changes noted. Will continue to monitor until report given to oncoming rn.
[2021-11-28 06:18] LABS: Hematocrit 25.8 % (33.0-51.0); Hemoglobin 8.1 g/dL (11.5-16.0)
--- NOTE | 2021-11-28 06:37 | NUR ---
NOC SHIFT SUMMARY PT ORIENTED X3, VSS PER PT TREND. WORE CPAP MAJORITY OF NIGHT WHEN ASLEEP. COMPLAINTS OF LOWER EXTREMITY PAIN, PRNS GIVEN X1 W/RELIEF (SEE EMAR FOR DETAILS). POC GLUCOSE WNL. WILL PASS ON TO DAY RN
[2021-11-28 06:48] LABS: Albumin, Blood 2.3 g/dL (3.4-5.0); Anion Gap 4 mmol/L (6-16); Blood Urea Nitrogen 45 mg/dL (8-24); Bun/Creatinine Ratio 12.2 (12.0-20.0); CO2, Blood 31 mmol/L (21-32); Calcium, Blood 8.8 mg/dL (8.5-10.1); Chloride, Blood 103 mmol/L (98-108); Glomerular Filtration Rate 15 (60-); Glucose, Blood 185 mg/dL (70-99); Magnesium, Blood 2.1 mg/dL (1.6-2.4); Phosphorus, Blood 3.3 mg/dL (2.5-4.9); Potassium, Blood 4.8 mmol/L (3.5-5.5); Sodium, Blood 138 mmol/L (136-145)
--- NOTE | 2021-11-28 10:30 | NUR ---
ASSUMPTION OF CARE THIS RN ASSUMED CARE OF PATIENT AT 0700. REPORT TAKEN FROM ANA BERRY. PATIENT WITH STABLE VITALS. REPORTS OF PAIN IN BLE; MEDICATING PER EMAR. PATIENT COMPLAINING OF FLUID RESTRICTION THIS AM. FLUID RESTRICTED TO 800MLS A DAY WITH 500MLS ALLOWED FOR DAY SHIFT. PATIENT WOULD LIKE MORE FLUIDS AND CONSISTENTLY ASKS FOR MORE FLUIDS. THIS RN CONTINUES TO OFFER THERAPEUTIC LISTENING, AND EXPLAINS TO THE PATIENT WHY THE FLUID RESTRICTION IS ORDERED AND IS IMPORTANT AT THIS TIME. PATIENT ALERT AND ORIENTED TO SELF AND SURROUNDINGS. PATIENT FORGETFUL AND OFTEN FORGETS WORDS WITH CONVERSATION. NO ACUTE CHANGES FOR PATIENT CURRENTLY. PATIENT WAS TAKEN TO DIALYSIS THIS AM AT 0900. THIS RN WILL CONTINUE TO MONITOR PATIENT WHEN SHE RETURNS FROM DIALYSIS.
--- NOTE | 2021-11-28 17:53 | NUR ---
SHIFT SUMMARY NO ACUTE CHANGES DURING THIS SHIFT. VITALS STABLE. MEDICATING PER EMAR FOR PAIN. PATIENT CONTINUES TO TRY TO GET MORE FLUIDS DESPITE FLUID RESTRICTIONS. PATIENT IS CONTINENT/INCONTINENT. SOMETIMES CALLS APPROPRIATELY FOR STAFF HELP. RIGHT HEAL WOUND CARE DONE AND DRESSING CHANGED PER ORDER. PATIENT SITTING UP IN CHAIR CURRENTLY EATING DINNER. BED IN LOWEST POSITION AND CALL LIGHT IN REACH. WILL CONTINUE TO MONITOR UNTIL SHIFT CHANGE AT 1900.
[2021-11-29 04:18] LABS: Hematocrit 26.2 % (33.0-51.0); Hemoglobin 8.4 g/dL (11.5-16.0)
[2021-11-29 04:37] LABS: Albumin, Blood 2.4 g/dL (3.4-5.0); Anion Gap 5 mmol/L (6-16); Blood Urea Nitrogen 34 mg/dL (8-24); Bun/Creatinine Ratio 11.1 (12.0-20.0); CO2, Blood 33 mmol/L (21-32); Calcium, Blood 8.9 mg/dL (8.5-10.1); Chloride, Blood 100 mmol/L (98-108); Creatinine, Blood 3.06 mg/dL (0.40-1.00); Glomerular Filtration Rate 18 (60-); Glucose, Blood 164 mg/dL (70-99); Phosphorus, Blood 2.9 mg/dL (2.5-4.9); Potassium, Blood 4.1 mmol/L (3.5-5.5); Sodium, Blood 138 mmol/L (136-145)
--- NOTE | 2021-11-29 05:10 | NUR ---
SHIFT SUMMARY PT ALERT AND ORIENTED X3. AFEBRILE. HR SR 80-90'S. ON RA WHILE AWAKE, SATS OVER 97%. ON CPAP OR 2L WHILE SLEEPING. CHRONICALLY HYPERTENSIVE. SOME RELIEF WITH SCHEDULED MEDICATIONS WELL PRN PO HYDRALAZINE. PT NEEDY AT TIMES, CONSTANTLY NEEDING REPOSITIONED AND REQUESTING AGAIN A FEW MINUTES LATER. COOPERATIVE TO CARE. HEEL PROTECTERS IN PLACE BILATERALLY AND HEELS FLOATED. BLE PAIN MEDICATED PER EMAR. CBGS RANGED FROM 85-164. IN CHAIR SLEEPING WITH CALL ALARM AT SIDE, WILL CONTINUE TO MONITOR UNTIL REPORT GIVEN TO ONCOMING RN
--- NOTE | 2021-11-29 12:05 | NUR ---
Spiritual Care Visit. Pt. is in a recliner and responds when I enter the room. Pt. quickly verbalizes that she hopes to be discharged on Thursday. Listem empathetically with an encouraging presence. Rapport is re-established. Pt. verbalizes that this discharge with be different because there will be a home mortgage disclosure act specialist to help her. Pastoral concern and care is given in light of the previous short discharge and re-admit. Pt. verbalized that there was a preseription that she didn't have the right doseage for. This sales communications manager asked if the Pt. has felt she has been cared for during her lengthy stay. The Pt. made reference to a bad experience with a night nurse during a previous hospitalization, but otherwise has felt the care was real good. Prayed with Pt. Pt. verbalized gratitude for the spiritual care visit. . Prayed with Pt.
--- NOTE | 2021-11-29 18:30 | NUR ---
SHIFT SUMMARY PT ALERT & ORIENTED X 3, SHE ANSWERS QUESTIONS APPROPRIATLY BUT HAS NON-SENSICAL RESPONSES AT TIMES AND IS A POOR HISTORIAN REGARDING MEDICAL CARE. CHEST PAIN AND FEELINGS OF NAUSEA DENIED BUT PAIN WAS REPORTED IN BILATERAL LEGS, PLEASE SEE EMAR. AFTER PAIN MEDICATION ADMINISTRATION, PT WOULD APPEAR MORE RELAXED OR BE SLEEPING BUT THERE WAS AN EPISODES WHERE PT HAD BEEN SLEEPING AND HEARD THIS NURSE SIT DOWN TO CHART AND CALLED OUT ASKING FOR PAIN MEDS. THIS NURSE EDUCATED PT ABOUT TIMING AND DOSAGE FOR PAIN MEDS IF IT WAS TOO SOON TO ADMINISTER PAIN MEDICATION. TYLENOL AND REPOSITIONING OFFERED BUT PT DENIED. COMMUNITY DEVELOPMENT OFFICER DONTE MENA ALSO EDUCATED PT ABOUT PAIN MANAGEMENT. BP WAS ELEVATED THIS AM W/ SBP AT 182, SEE EMAR FOR BP MANAGEMENT. UPON 1200 REASSESSMENT, SBP WAS 170. SPO2 >95% VIA RA BUT WHEN PT SLEEPS SHE DESATS TO 80'S SO 2L NC APPLIED TO MAINTAIN SPO2. DIALYSIS CATHETER REMAINS OPEN TO AIR PER ORDERS. PICC LINE IN [place] IS SALINE LOCKED. PT WAS ABLE TO STAND UP AT CHAIR FOR BRIEF CHANGES W/ FWW AND 2 PERSON ASSIST. DRESSING OVER RIGHT HEEL IN PLACE AND IS CLEAN, SEE CHART FOR WOUND PHOTOS. FAMILY WAS AT BEDSIDE THIS EVENING. NO ACUTE CHANGES NOTED. CALL LIGHT IN REACH, PT CURRENTLY VISITING WITH FAMILY IN RECLINER.
--- NOTE | 2021-11-29 23:44 | NUR ---
PT HAS BEEN A&OX2, ANXIOUS. REORIENTED WITH DIFFICULTY. CONSOLATION GIVEN. O2 SATS AT 100% ON RA. NO COMPLAINTS OF SOB OR CHEST PAIN. VSS. TOOK EVENING MEDICATIONS IN APPLESAUCE. PT REQUESTING SODE, EDUCATION GIVEN OF FLUID RESTRICTION. PT CONTINUES TO REQUEST SODE. MOUTH SWAB GIVEN. REPOSITIONED IN CHAIR FOR COMFORT. CALL LIGHT IN REACH.
[2021-11-30 04:41] LABS: Hematocrit 27.6 % (33.0-51.0); Hemoglobin 8.9 g/dL (11.5-16.0)
[2021-11-30 04:59] LABS: Albumin, Blood 2.5 g/dL (3.4-5.0); Anion Gap 6 mmol/L (6-16); Blood Urea Nitrogen 48 mg/dL (8-24); Bun/Creatinine Ratio 12.5 (12.0-20.0); CO2, Blood 32 mmol/L (21-32); Calcium, Blood 8.9 mg/dL (8.5-10.1); Chloride, Blood 101 mmol/L (98-108); Creatinine, Blood 3.83 mg/dL (0.40-1.00); Glomerular Filtration Rate 14 (60-); Glucose, Blood 94 mg/dL (70-99); Magnesium, Blood 2.2 mg/dL (1.6-2.4); Phosphorus, Blood 3.7 mg/dL (2.5-4.9); Sodium, Blood 139 mmol/L (136-145)
--- NOTE | 2021-11-30 05:19 | NUR ---
PT SLEEPING THROUGHOUT NIGHT. NO ACUTE CHANGES NOTED. PT NOT TOLERATING BIPAP, REQUESTING TO JUST BE PLACED ON NC. BLOOD SUGARS HAVE REMAINED STABLE. PT COMPLIANT WITH FLUID RESTATION AT THIS TIME. MEDICATED FOR BP WITH PRN MEDICAITONS DUE TO ELEVATED BP WITH GOOD RESULTS. DECLINED BRIEF CHANGES AT THIS TIME. CALL LIGHT IN REACH.
--- NOTE | 2021-11-30 06:14 | NUR ---
[place] [facility] [place] PT HAD LARGE INCONTINENCE IN BRIEF BEFORE TRANSFER. LINENS CHANGED, ALY CARE PROVIDED. PT RETURNED TO CHAIR. DRESSINGS ON HEELS CHANGED BILATERALLY, PT TOLERATED IT WITH COMPLAINTS OF SLIGHT PAIN. LEFT WATCHING TV. CALL LIGHT IN REACH.
--- NOTE | 2021-11-30 15:08 | NUR ---
POST FALL PATIENT TODAY AT AROUND 1358 HAD A FALL FROM SITTING IN THE RECLINER TO THE FLOWER WITH A SMALL HEMATOMA TO THE LEFT EYEBROW/FOREHEAD. PATIENT VITALS SIGNS STABLE. NO CHANGE IN MENTATION. NEURO CHECKS TO BE MONITORED. PROVIDER INFORMED AND CONTINUE TO MONITOR INFORM PROVIDER OF CHANGES TO MENTATION. WILL CONTINUE TO MONITOR PATIENT HAS NO QUESTIONS OR CONCERNS, REVALUATED BY THIS HEEL SANDER OFTEN, NO CHANGE IN MENTATION, ICE PACK TO OFOREHEAD, WILL CONTACT PROVIDER IF CONCERNS FROM MYSELF OR PATIENT ARISE.
--- NOTE | 2021-11-30 15:43 | NUR ---
INCREASED HEMATOMA SIZE ON FOREHEAD: CALL PLACED TO HOSP/PROVIDER PLACE A CT OF THE HEAD AND CONTINUE TO MONITOR. NEURO CHECKS HAVE BEEN CONSISTENT NO CHANGES IN PUPILS. PATIENT STILL HAS SAME MENTATION PRIOR TO FALL, WILL CONTINUE TO MONITOR.OVERALL SIZE OF HEMATOMA, AT GREATEST LENGTH 5.5CM AND WIDTH FROM THE POSITION OF THE 9 TO 3 IS 4.5CM IN WIDTH. WILL CONTINUE TO MONITOR ICE PACK IN PLACE.
--- NOTE | 2021-11-30 18:25 | NUR ---
END OF SHIFT: PATIENT HAD A FALL PLEASE SEE REPORT STAT CT REPORT PLEASE SEE RESULTS. PATIENT CURRENLTY IN BED, MENTATION IS STILL WAVERING. DENIES CHEST PAIN OR PRESSURE. BLOOD PRESSURE MEDS HAVE BEEN TIMED ODDLY DUE TO DIALYSIS NEEDING TO HOLD UNTIL END OF DIALYSIS. NITA HAS BEEN ANSWERING QUESTIONS APPROPRIATELY CAMERA IS ON PICC IN LEFT UPPER ARM FLUSHED AT THE END OF SHIFT AND CAPS CHANGED. PATIENT HAS HAD FAMILY AT THE BEDSIDE. REFUSES TO HAVE ICE PACK ON FOREHEAD. HEMATOMA IS NOW STABLE NO GROWTH. NEURO HAS BEEN UNCHNAGED FROM BASELINE. WILL TRANSFER TO CHAIR. BEFORE END OF SHIFT. PATIENT HAS NO CONCERNS, STILL ARGUES WITH HOSPITALIST IN REGARDS TO DISCHARGE WILL COTINUE TO MONITOR UNTIL SHIFT CHANGE.
--- NOTE | 2021-11-30 21:44 | NUR ---
PT IS A&OX3. REQUESTING TO BE PLACED IN CHAIR. EDUCATION GIVEN TO PT ON STAYING IN BED IS SAFER THEN CHAIR. REPOSITIONED FOR COMFORT, PT STATING "SOMETHING NEEDS TO BE CHANGED" BUT PT UNABLE TO TELL ME WHAT SHE WANTS CHANGED. DARK PURPLE BRUISE NOTED AROUND LEFT EYE WITH ORANGE SIZED LUMP NOTED ON FOREHEAD. PT DECLINING TO PLACE ICE ON SWELLING. PT ON 1.5 LPM O2 NC WITH O2 SATS > 92%. DRESSING IN TACT ON HEELS BILATERALLY. OTHER VITAL SIGNS STABLE PT GIVEN ONE PACK OF CRACKERS AND CHEESE BEFORE BED SNACK. CALL LIGHT IN REACH.
[2021-12-01 04:37] LABS: Hematocrit 26.1 % (33.0-51.0); Hemoglobin 8.2 g/dL (11.5-16.0)
[2021-12-01 04:55] LABS: Albumin, Blood 2.5 g/dL (3.4-5.0); Anion Gap 4 mmol/L (6-16); Blood Urea Nitrogen 37 mg/dL (8-24); Bun/Creatinine Ratio 12.4 (12.0-20.0); CO2, Blood 34 mmol/L (21-32); Calcium, Blood 8.6 mg/dL (8.5-10.1); Chloride, Blood 100 mmol/L (98-108); Creatinine, Blood 2.99 mg/dL (0.40-1.00); Glomerular Filtration Rate 19 (60-); Glucose, Blood 182 mg/dL (70-99); Magnesium, Blood 2.1 mg/dL (1.6-2.4); Phosphorus, Blood 2.8 mg/dL (2.5-4.9); Potassium, Blood 4.5 mmol/L (3.5-5.5); Sodium, Blood 138 mmol/L (136-145)
--- NOTE | 2021-12-01 05:54 | NUR ---
NO ACUTE CHANGES NOTED THROUGHOUT THE NIGHT. PT SLEEPING WITHOUT ANY VISIBLE SIGNS OF DISTRESS. WAKES AND TAKES PILLS EASILY BUT THEN RETURNS TO SLEEP. BRIEF CHANGED DUE EXTRA LARGE INCONTINENT VOID. DRESSING ON HEELS CHANGED BILATERALLY. PT IS VERY TEARFUL AFTER REPOSITIONING STATING "I WANT TO BE PUT BACK LIKE I WAS" WHEN INFORMED SHE WAS LYING FLAT DUE TO SLIDING DOWN IN BED PT STATES "NO, I CAN'T BE FLAT, I WANT TO BE BACK LIKE I WAS". ATTEMPTED TO REEDUCATE WITH MINIMAL SUCCESS. WILL MONITOR. CALL LIGHT IN REACH.
--- NOTE | 2021-12-01 19:37 | NUR ---
END OF SHIFT: PATIENT HAS BEEN STABLE AFTER DESATURATION THIS AM, CURRNELTY ON CPAP AND RT AWARE OF SETTINGS. HAS RANGED FROM 5-15L.DENIES CHEST PAIN, HAS OCC RUELAS FROM FALL YESTERDAY. PATIENT MENTATION HAS BEEN THE SAME OCCASSIONALLY WAVERING BUT IMPROVED FROM YESTERDAY. PATINET HSA BEEN REPOSITIONED Q2, HAS BEEN ALERT TO SITUATION. DR. SNYDER WAS INFORMED AT BEGINING OF DESATURATION. WILL CONTINUE TO MONITOR UNITL SHIFT CHANGE. NO FURTHER CONCERNS FORM THIS AUTO DAMAGE ADJUSTER OR PATIENT AT THIS TIME.
[2021-12-02 04:33] LABS: Hematocrit 25.4 % (33.0-51.0); Hemoglobin 7.8 g/dL (11.5-16.0)
[2021-12-02 04:44] LABS: Albumin, Blood 2.2 g/dL (3.4-5.0); Anion Gap 4 mmol/L (6-16); Blood Urea Nitrogen 48 mg/dL (8-24); Bun/Creatinine Ratio 12.3 (12.0-20.0); CO2, Blood 34 mmol/L (21-32); Calcium, Blood 8.4 mg/dL (8.5-10.1); Chloride, Blood 101 mmol/L (98-108); Glomerular Filtration Rate 14 (60-); Glucose, Blood 213 mg/dL (70-99); Magnesium, Blood 2.1 mg/dL (1.6-2.4); Phosphorus, Blood 3.4 mg/dL (2.5-4.9); Potassium, Blood 4.9 mmol/L (3.5-5.5); Sodium, Blood 139 mmol/L (136-145)
--- NOTE | 2021-12-02 06:21 | NUR ---
SHIFT SUMMARY: A&OX2-3. ANXIOUS AND TEARFUL, CONSOLATION PROVIDED. O2 SATS FLUXATING BETWEEN 86-93% ON CPAP WITH 8-12 LPM BLEED IN WHEN SLEEING AND 10-15 LPM HIGH FLOW O2 WHEN AWAKE. MEDICATED FOR PAIN IN FEET AND HEADACHE X 2, SEE EMAR. PT ABLE TO STAND WITH 2 ASSIST TO CHANGE BRIEF. FLUID RESTRICTION MAINTAINED.
[2021-12-02 12:27] LABS: BASOPHILS ABSOLUTE AUTO 0.05 K/mm3 (0.00-0.23); BASOPHILS PERCENT AUTO 0 % (0-2); EOSINOPHILS ABSOLUTE AUTO 0.12 K/mm3 (0.00-0.68); EOSINOPHILS PERCENT AUTO 1 % (0-6); Hematocrit 26.5 % (33.0-51.0); Hemoglobin 8.3 g/dL (11.5-16.0); IMMATURE GRAN ABSOLUTE AUTO 0.07 K/mm3 (0.00-0.10); IMMATURE GRAN PERCENT AUTO 1 % (0-1); LYMPHOCYTES ABSOLUTE AUTO 0.43 K/mm3 (0.84-5.20); LYMPHOCYTES PERCENT AUTO 3 % (21-46); MONOCYTES ABSOLUTE AUTO 1.02 K/mm3 (0.16-1.47); MONOCYTES PERCENT AUTO 8 % (4-13); Mean Corpuscular HGB 31.2 pg (26.0-34.0); Mean Corpuscular HGB Conc 31.3 g/dL (31.5-36.5); Mean Corpuscular Volume 100 fL (80-100); Mean Platelet Volume 9.7 fL (9.1-12.4); NEUTROPHILS ABSOLUTE AUTO 11.45 K/mm3 (1.96-9.15); NEUTROPHILS PERCENT AUTO 87 % (41-73); Platelet Count 444 K/mm3 (150-400); RDW Coefficient Variation 14.8 % (11.7-14.2); RDW Standard Deviation 54.2 fL (35.1-46.3); Red Blood Cell Count 2.66 M/mm3 (3.80-5.20); White Blood Cell Count 13.14 K/mm3 (4.00-11.30)
--- NOTE | 2021-12-02 18:11 | NUR ---
SHIFT SUMMARY PT A&OX3, COOPERATIVE WITH CARE. CBGS COV PER EMAR. OXYGEN 10L NC. DIALYSIS TODAY. PAIN MANAGED WITH NORCO 10 MG Q6. PT/OT WORKED WITH PT; PT REFUSED TO SIT ON BSC; ATTENDS ON; STOOL SOFTENER PROVIDED. WILL REPORT TO ONCOMING CATRACHITO RN.
[2021-12-03 04:40] LABS: Hematocrit 26.4 % (33.0-51.0); Hemoglobin 8.2 g/dL (11.5-16.0)
[2021-12-03 05:14] LABS: Albumin, Blood 2.4 g/dL (3.4-5.0); Anion Gap 5 mmol/L (6-16); Blood Urea Nitrogen 35 mg/dL (8-24); Bun/Creatinine Ratio 11.1 (12.0-20.0); CO2, Blood 32 mmol/L (21-32); Calcium, Blood 8.7 mg/dL (8.5-10.1); Chloride, Blood 101 mmol/L (98-108); Creatinine, Blood 3.16 mg/dL (0.40-1.00); Glomerular Filtration Rate 18 (60-); Glucose, Blood 237 mg/dL (70-99); Magnesium, Blood 2.2 mg/dL (1.6-2.4); Phosphorus, Blood 3.3 mg/dL (2.5-4.9); Potassium, Blood 4.3 mmol/L (3.5-5.5); Sodium, Blood 138 mmol/L (136-145)
--- NOTE | 2021-12-03 05:43 | NUR ---
SHIFT SUMMARY: PATIENT IN CHAIR, DENIES CHEST PAIN OR N/V/D. PATIENT EXPRESSED CONCERN ABOUT BREATHING BUT REFUSED CPAP. THIS RN PUT CPAP ON AT 0400 WHEN O2 NC WAS INCREASED TO 15L AND PATIENT'S O2 SATS REMAINED BETWEEN 83-86%. PATIENT'S O2 SAT THEN INCREASED TO >93% AND THE CPAP REMAINS IN PLACE AT THIS TIME. NO ADVERSE EVENTS THIS SHIFT. MEDICATED PER EMAR. CALL LIGHT IN PLACE. WILL CONTINUE TO MONITOR AND REPORT TO ONCOMING RN.
[2021-12-03 08:46] LABS: BASOPHILS ABSOLUTE AUTO 0.07 K/mm3 (0.00-0.23); BASOPHILS PERCENT AUTO 1 % (0-2); EOSINOPHILS ABSOLUTE AUTO 0.23 K/mm3 (0.00-0.68); EOSINOPHILS PERCENT AUTO 2 % (0-6); Hematocrit 27.2 % (33.0-51.0); Hemoglobin 8.3 g/dL (11.5-16.0); IMMATURE GRAN ABSOLUTE AUTO 0.03 K/mm3 (0.00-0.10); IMMATURE GRAN PERCENT AUTO 0 % (0-1); LYMPHOCYTES ABSOLUTE AUTO 0.49 K/mm3 (0.84-5.20); LYMPHOCYTES PERCENT AUTO 5 % (21-46); MONOCYTES ABSOLUTE AUTO 1.03 K/mm3 (0.16-1.47); MONOCYTES PERCENT AUTO 10 % (4-13); Mean Corpuscular HGB 31.3 pg (26.0-34.0); Mean Corpuscular HGB Conc 30.5 g/dL (31.5-36.5); Mean Corpuscular Volume 103 fL (80-100); Mean Platelet Volume 9.8 fL (9.1-12.4); NEUTROPHILS ABSOLUTE AUTO 8.68 K/mm3 (1.96-9.15); NEUTROPHILS PERCENT AUTO 82 % (41-73); Platelet Count 423 K/mm3 (150-400); RDW Coefficient Variation 14.9 % (11.7-14.2); Red Blood Cell Count 2.65 M/mm3 (3.80-5.20); White Blood Cell Count 10.53 K/mm3 (4.00-11.30)
--- NOTE | 2021-12-03 17:44 | NUR ---
SHIFT SUMMARY PT HAS BEEN RESTING IN RECLINER IN ROOM. PT WORKED WITH PHYSICAL AND OCCUPATIONAL THERAPY TODAY AND FELT THAT THEY DEMONSTRATED IMPROVEMENT. PT SLEPT FOR A LARGE PART OF THE DAY THOUGH THEY WERE EASILY ROUSABLE, THEY STATED THAT THEY ARE "JUST REALLY TIRED TODAY." BLOOD SUGAR WAS MEASURED AT 359 THIS MORNING PRIOR TO BREAKFAST AND 96 THIS EVENING PRIOR TO DINNER. SBP HAS REMAINED ELEVATED, 170 THIS AM, 156 THIS EVENING. PT CONTINUES TO REPORT SEVERE CHRONIC PAIN BUT ALSO REPORTS THAT RECEIVING 2 TABS OF ORDERED PAIN MEDICATION AT A TIME MANAGES IT BETTER THAN IT HAS BEEN.
--- NOTE | 2021-12-03 20:52 | NUR ---
CARE ASSUMPTION: PATIENT IN CHAIR WATCHING TV. CBG CRITICALLY LOW AT 40 - GAVE STRING CHEESE AND 4 CRACKERS. PATIENT REQUESTED BED BATH IN AN HOUR. VS WNL ON 6L NC. O2 WAS TITRATED DOWN TO 4L NC AND SATS REMAIN >92%. MEDICATED PER EMAR CALL LIGHT IN REACH.
[2021-12-04 04:36] LABS: Hematocrit 25.5 % (33.0-51.0); Hemoglobin 7.9 g/dL (11.5-16.0)
[2021-12-04 05:06] LABS: Albumin, Blood 2.3 g/dL (3.4-5.0); Anion Gap 2 mmol/L (6-16); Blood Urea Nitrogen 60 mg/dL (8-24); Bun/Creatinine Ratio 15.2 (12.0-20.0); CO2, Blood 34 mmol/L (21-32); Calcium, Blood 8.8 mg/dL (8.5-10.1); Chloride, Blood 102 mmol/L (98-108); Creatinine, Blood 3.94 mg/dL (0.40-1.00); Glomerular Filtration Rate 14 (60-); Glucose, Blood 105 mg/dL (70-99); Magnesium, Blood 2.2 mg/dL (1.6-2.4); Phosphorus, Blood 3.6 mg/dL (2.5-4.9); Potassium, Blood 5.1 mmol/L (3.5-5.5); Sodium, Blood 138 mmol/L (136-145)
--- NOTE | 2021-12-04 05:42 | NUR ---
SHIFT SUMMARY: PATIENT VSS ON 4L NC. MEDICATED PER EMAR. PATIENT RECEIVED A BED BATH AND CHANGED HEEL PROTECTORS. NO ACUTE EVENTS THIS SHIFT. PATIENT IN CHAIR WITH FEET UP. CALL LIGHT IN REACH. WILL CONTINUE TO MONITOR AND REPORT TO ONCOMING RN.
--- NOTE | 2021-12-04 12:06 | NUR ---
Spiritual Care visit(s) Visit #1 - Pt. is in Dialysis and welcomes my visit. Pts. nurse had in formed this milieu technician that the Pts. father had passed. This milieu technician visited the Pt. in order to re-establish rapport and to prepare a relational support base. Rapport is re-established and prayed with Pt. Pt. verbalized an expectation that she would be discharged in a couple days. Pt. verbalized gratitude for the spiritual care visit. Visit #2 - Was notified by Pts. nurse that family are present. When this milieu technician arrived, Pt. had already been told that her father had passed. Pt. verbalized the information as "my mother's ." Listen empatheticially and gave pastoral care to Pt., Pts. mother and the family present. Family seems concerned about the cost of home and burial. Prayed with family. Pts. mother displayed evidence of shock. Will remain available to Pt.
--- NOTE | 2021-12-04 18:02 | NUR ---
SHIFT SUMMARY PT HAS BEEN RESTING IN ROOM. PT WAS DIALYZED TODAY AND HAS BEEN TIRED SINCE RETURNING. PT WAS VISITED BY FAMILY TODAY THAT DELIVERED NEWS OF THE PT'S FATHER'S . PT HAS BEEN WITHDRAWN BUT HAS BEEN WILLING TO CONVERSE. SPIRITUAL CARE HAS VISITED MULTIPLE TIMES. BLOOD PRESSURE HAS REMAINED ELEVATED. PAIN HAS CONTINUED TO BE REPORTED SEVERE (11/23) AND PT STATES THAT MEDICATION MANAGES IT WELL ENOUGH.
[2021-12-05 04:11] LABS: BASOPHILS ABSOLUTE AUTO 0.06 K/mm3 (0.00-0.23); BASOPHILS PERCENT AUTO 1 % (0-2); EOSINOPHILS ABSOLUTE AUTO 0.48 K/mm3 (0.00-0.68); EOSINOPHILS PERCENT AUTO 5 % (0-6); Hematocrit 27.9 % (33.0-51.0); Hemoglobin 8.7 g/dL (11.5-16.0); IMMATURE GRAN ABSOLUTE AUTO 0.05 K/mm3 (0.00-0.10); IMMATURE GRAN PERCENT AUTO 1 % (0-1); LYMPHOCYTES ABSOLUTE AUTO 0.68 K/mm3 (0.84-5.20); LYMPHOCYTES PERCENT AUTO 6 % (21-46); MONOCYTES ABSOLUTE AUTO 1.46 K/mm3 (0.16-1.47); MONOCYTES PERCENT AUTO 14 % (4-13); Mean Corpuscular HGB Conc 31.2 g/dL (31.5-36.5); Mean Corpuscular Volume 99 fL (80-100); Mean Platelet Volume 10.1 fL (9.1-12.4); NEUTROPHILS ABSOLUTE AUTO 8.04 K/mm3 (1.96-9.15); NEUTROPHILS PERCENT AUTO 75 % (41-73); Platelet Count 482 K/mm3 (150-400); RDW Coefficient Variation 14.4 % (11.7-14.2); RDW Standard Deviation 52.5 fL (35.1-46.3); Red Blood Cell Count 2.81 M/mm3 (3.80-5.20); White Blood Cell Count 10.77 K/mm3 (4.00-11.30)
[2021-12-05 04:31] LABS: Bun/Creatinine Ratio 18.7 (12.0-20.0); Calcium, Blood 8.7 mg/dL (8.5-10.1); Creatinine, Blood 3.16 mg/dL (0.40-1.00); Potassium, Blood 4.4 mmol/L (3.5-5.5)
--- NOTE | 2021-12-05 06:09 | NUR ---
Patient didn't sleep last night, began sleeping at end of lieutenant shift supervisor. Refuses CPAP, attempted to reeducate patient and she was not receptive. C/o BLE pain, medicated per emar. SBP elevated in 160-180's, medicated per scheduled emar meds with little relief. Patient reported feeling CBG dropping, upon checking was 66. Patient was given cheese and crackers and went up to 108. Patient incontinent of urine, chynack applied this shift. Over 92% on 2L NC. No acute changes. Will report to dayshift RN.
--- NOTE | 2021-12-05 09:00 | NUR ---
ASSUMPTION OF CARE THIS RN ASSUMED CARE OF PATIENT AT 0700. REPORT TAKEN FROM OBDULIO BERRY. PATIENT'S VITALS STABLE ON 2L NC. LEGS ELEVATED. DRESSINGS INTACT ON BILATERAL HEELS. PATIENT A&O X4 CURRENTLY. IN RECLINER WITH CALL LIGHT IN REACH.
--- NOTE | 2021-12-05 15:38 | NUR ---
Spiritual Care Visit. Pt. is awake and welcomes my visit. Rapport is re-established. Clarified and addressed relationship Pt. had with her step father, who suddenly yesterday. With theraputic listening and a calming presence, Pt. began to reflect on what her Step father meant to her and the family. Give bereavement support. Pt. expresses interest in have her family get connected with a scientologist in [place] where they live. Pt. verbalized gratitude for the spiritual care visit. I will remain available to the Pt.
--- NOTE | 2021-12-05 16:21 | NUR ---
SHIFT SUMMARY PATIENT A&O X3-4. NO ACUTE CHANGES DURING THIS SHIFT. PATIENT WORKED WITH PT/OT TODAY. WOUND CARE DONE PER ORDERS FOR RIGHT/LEFT HEEL. PATIENT ON 2-3L OF O2 VIA NC; 3L WHEN PATIENT IS SLEEPING. PATIENT REFUSED CPAP FOR PREVIOUS TOEING STOCKINGS. HTN NOTED; MEDICATING PER EMAR. OTHERWISE VITALS ARE STABLE. PATIENT COMPLAINS OF BLE PAIN OF 8-10; MEDICATING PER EMAR. PATIENT CONTINUES TO HAVE OCCASIONAL PROBLEMS WITH FINDING THE RIGHT WORDS AND EXHIBITS CHILD-LIKE MENTATION AT TIMES. ONE INCIDENT OF CRYING THIS SHIFT DUE TO FRUSTRATION. PATIENT RECENTLY LOST STEP-FATHER OF 40 YEARS; PATIENT DENIED SELF-HARM IDEATION OR DEPRESSION FOR THIS RN. PATIENT CONTINUES TO BE ON A 1000ML A DAY FLUID RESTRICTION; CONTINUES TO ASK FOR MORE FLUID/SNACKS; EDUCATION PROVIDED. PATIENT REPORTS CONSTIPATION; MEDICATED PER EMAR, WITH NO RESULTS YET. PATIENT IN CHAIR RESTING CURRENTLY. LEGS ELEVATED; RIGHT HEEL FLOATED. CALL LIGHT WITHIN REACH. WILL CONTINUE TO MONITOR UNTIL SHIFT CHANGE AT 1900.
[2021-12-06 05:27] LABS: Hematocrit 27.9 % (33.0-51.0); Hemoglobin 8.9 g/dL (11.5-16.0)
--- NOTE | 2021-12-06 05:40 | NUR ---
Patient slept on and off t/o night. Desats into higher 80's on 2L NC, titrated to 3L NC and now satting 94% while asleep. Heel mepilex's changed. Repositioned pt multiple times but patient still reports being uncomfortable. Hypertensive with SBP 150-160 this shift. Still reports pain in BLE, elevate on pillows and medicate per emar. No acute events. Will report to dayshift RN.
[2021-12-06 05:43] LABS: Albumin, Blood 2.4 g/dL (3.4-5.0); Anion Gap 11 mmol/L (6-16); Blood Urea Nitrogen 87 mg/dL (8-24); Bun/Creatinine Ratio 22.4 (12.0-20.0); CO2, Blood 28 mmol/L (21-32); Calcium, Blood 8.6 mg/dL (8.5-10.1); Chloride, Blood 96 mmol/L (98-108); Creatinine, Blood 3.88 mg/dL (0.40-1.00); Glomerular Filtration Rate 14 (60-); Glucose, Blood 313 mg/dL (70-99); Magnesium, Blood 2.3 mg/dL (1.6-2.4); Potassium, Blood 5.3 mmol/L (3.5-5.5); Sodium, Blood 135 mmol/L (136-145)
--- NOTE | 2021-12-06 08:51 | NUR ---
pt to dialysis via recliner and on ra
--- NOTE | 2021-12-06 17:32 | NUR ---
SHIFT SUMMARY PT A/O X2-3, SOME CONFUSION. PT MAONING THROUGHOUT SHIFT BUT UNABLE TO IDENTIFY WHAT IS MAKING HER MOAN. PT BP'S LABILE WHILE IN DIALYSIS, STABLE WHEN BACK IN HER ROOM. OTHER VSS THROUGHOUT SHIFT WITH O2 SATS IN THE 90'S WHILE ON 2L NC. NO REPORT OF CHEST PAIN/PRESSURE THROUGHOUT SHIFT. PT UP TO BEDSIDE COMMODE A COUPLE OF TIMES DURING SHIFT, MODERATE ASSIST, TOLERATED FAIR. PT HAD LARGE BM, SOLID STOOL. PT REMAINED IN RECLINER DURING SHIFT PER PT REQUEST.
[2021-12-07 04:58] LABS: Hematocrit 25.9 % (33.0-51.0)
[2021-12-07 05:14] LABS: Albumin, Blood 2.1 g/dL (3.4-5.0); Anion Gap 6 mmol/L (6-16); Blood Urea Nitrogen 75 mg/dL (8-24); Bun/Creatinine Ratio 22.6 (12.0-20.0); CO2, Blood 35 mmol/L (21-32); Calcium, Blood 8.6 mg/dL (8.5-10.1); Chloride, Blood 98 mmol/L (98-108); Creatinine, Blood 3.32 mg/dL (0.40-1.00); Glomerular Filtration Rate 17 (60-); Glucose, Blood 160 mg/dL (70-99); Magnesium, Blood 2.1 mg/dL (1.6-2.4); Phosphorus, Blood 3.1 mg/dL (2.5-4.9); Potassium, Blood 4.9 mmol/L (3.5-5.5); Sodium, Blood 139 mmol/L (136-145)
--- NOTE | 2021-12-07 06:42 | NUR ---
SHIFT SUMMARY PT IS ALERT AND ORIENTED X3. SHE IS FORGETFUL. SHE DENIES CHEST PAIN/PRESSURE. SHE DENIES FEELING SOB. SHE IS CURRENTLY ON 3-5L O2 WITH SATS ABOVE 90%. SHE WORE CPAP A SHORT TIME LAST NIGHT AND REFUSED TO PUT IT BACK ON. SHE REPORTS PAIN 8/10 IN LEGS/FEET. SHE REFUSES TO GET BACK IN BED AND WANTS TO REMAIN IN RECLINER. SHE HAS BEEN REPOSITIONED OFTEN. SHE GETS EMOTIONAL AT TIMES AND CRIES SUCH WHEN REPORTING PAIN, CALLING ON THE PHONE AND CALLS DONT GET THROUGH, ASKING FOR ICE, ETC. BRIEF IN PLACE. CALL LIGHT IS WITHIN REACH.
--- NOTE | 2021-12-07 10:25 | NUR ---
TRANSFER UPDATE REPORT GIVEN TO MAGDALENO RN AT 1000. P TTRANSFERED TO [facility] FLOOR AT 1020 VIA RECLINER. PT BELONGINGS IN BAGS AND TRANSFERED WITH PT CHART. PT ON 3L NC DURING TRANSFER.
--- NOTE | 2021-12-07 10:54 | NUR ---
ASSUMED CARE OF PATIENT UPON HER ARRIVAL FROM PCU AT 1022. PER REPORT PATIENT USING O2 @ 2 L/MIN NC, BUT WAS ON 6 L/MIN NC DURING TRANSPORT. SHE ARRIVED VIA RECLINER, RENTAL BED PLACED IN ROOM. ALLAN IS SOMNOLENT, AROUSES TO SPEECH. IV ABX INFUSING THROUGH LA PICC. PLACED PT ON CONTINUOUS OXIMETRY PER POLICY; O2 SAT ON 2 L/MIN WAS 80-84%; TITRATED O2 UP TO 6 L/MIN TO ACHIEVE SATS 91-93%. CPAP IN ROOM. HAS SMALL CUP OF ICE CHIPS AT BEDSIDE.
--- NOTE | 2021-12-07 19:00 | NUR ---
SHIFT SUMMARY: NO ACUTE EVENTS SINCE TRANSFER. FORGETFUL, ASKS FOR PAIN MEDICATION WITH ALMOST EVERY ENCOUNTER. O2 @ 4-5 L/MIN NC, OXIMETRY SHOWS 90-94% SATS. PICC SITE WNL. COMPLIANT WITH FLUID RESTRICTION. NO HD TODAY.
[2021-12-08 05:24] LABS: Hematocrit 25.2 % (33.0-51.0); Hemoglobin 7.8 g/dL (11.5-16.0)
--- NOTE | 2021-12-08 05:25 | NUR ---
SHIFT SUMMARY AOX3-SELF, PLACE, FOLLOWING DIRECTIONS, SITUATION. INTERMITTANT CONFUSION. VSS. REPORTS 10/10 PAIN IN BILAT LEGS, MEDICATED 1X c 2 NORCO TABS ALONG c ELEVATING FEET & NO FURTHER PAIN REPORTED. CHANGED BANDAGES ON BILAT HEELS. R HEEL HAS MOD AMOUNT SLOUGH, ROUGHLY THE SIZE OF A MANDARIN ORANGE. DENIES DYSPNEA OR N/V. SPO2 DOES DROP TO LOW 80'S WHEN PT REMOVES NC, INCREASED O2 TO 5L TO RECOOPERATE & SPO2 CURRENTLY 90-93%. LS DIM c FINE CRACKLES IN BASES. PT REFUSED CPAP. HAS +2 PEDAL EDEMA, ALONG WITH GEN NONPITTING EDEMA. HS CBG @74, HELD HS COVERAGE & PROVIDED SMALL SNACK DAREN CRACKERS, APPLESAUCE, CHEESE STICK & 0100 CBG @234. CALL LIGHT IN REACH. WILL MONITOR.
[2021-12-08 05:53] LABS: Albumin, Blood 2.2 g/dL (3.4-5.0); Anion Gap 9 mmol/L (6-16); Blood Urea Nitrogen 105 mg/dL (8-24); Bun/Creatinine Ratio 25.5 (12.0-20.0); CO2, Blood 31 mmol/L (21-32); Calcium, Blood 8.3 mg/dL (8.5-10.1); Chloride, Blood 96 mmol/L (98-108); Creatinine, Blood 4.12 mg/dL (0.40-1.00); Glomerular Filtration Rate 13 (60-); Glucose, Blood 350 mg/dL (70-99); Magnesium, Blood 2.4 mg/dL (1.6-2.4); Phosphorus, Blood 3.7 mg/dL (2.5-4.9); Sodium, Blood 136 mmol/L (136-145)
--- NOTE | 2021-12-08 18:17 | NUR ---
SHIFT SUMMARY: NO ACUTE EVENTS. HAD HD TODAY, REMOVED 1.6 L. A&O X 1-2, FORGETFUL. STAYING IN RECLINER. HAS DIFFICULTY WITH 1 L FLUID RESTRICTION: NEEDS PO FLUIDS FOR THE MANY MEDICATIONS AND IS ALWAYS THIRSTY. NEEDS FREQUENT REINFORCEMENT. LBM TODAY. INCONTINENT OF BLADDER, PUREWICK IN PLACE. DRESSING CHANGED ON R HEEL; ESCHAR IS MOBILE, FOUL SMELLING, WITH WHAT APPEARS TO BE SLOUGH UNDERNEATH. WOUND CONSULT PLACED. HAD VISIT FROM DAUGHTERS TODAY.
--- NOTE | 2021-12-08 22:47 | NUR ---
HS CBG AT 2100 PT CBG WAS CL @43. INFORMED CHARGE NURSE ARNOLDO Phillips. PT EXTREMELY DIAPHORETIC, DROWSY, HOWEVER ABLE TO WAKE ENOUGH TO EAT. GAVE PT 2 PKGS DAREN CRACKERS, 1 APPLESAUCE, NIGHTTIME MEDS-INCLUDING KENAN, SF PAULA PUDDING & 1 SALTINE CRACKER. AT 2240 CBG INCREASED TO 100, INFORMED CHARGE NURSE. WILL RECHECK CBG AROUND 0130 & MONITOR.
--- NOTE | 2021-12-09 01:16 | NUR ---
PICC LINE AT 0040, PARTITION ASSEMBLY MACHINE OPERATOR WENT INTO & CALLED THIS NURSE RIGHT AWAY. PICC LINE WAS PULLED & PT WAS BLEEDING. APPLIED GAUZE & HELD PRESSURE UNTIL BLEEDING STOPPED. CHECKED VITALS, VSS. WHEN ASKED WHY PT PULLED, SHE SAID "I WAS JUST ITCHY & DIDNT KNOW WHAT IT WAS." EDUCATED PT THE IMPORTANCE OF NOT PULLING ON LINES. PT UNSURE WHY IT HAPPENED. INFORMED CHARGE NURSE ARNOLDO Willoughby APPLIED GAUZE & PAPER TAPE OVER DIALYSIS PORT TO PROTECT & INHIBIT PULLING. WILL MONITOR.
--- NOTE | 2021-12-09 05:17 | NUR ---
SHIFT SUMMARY AOX2-SELF, FAMILY, FOLLOING DIRECTIONS. CONFUSED, MENTATION WAXES & WAYNES. VSS. REPORTS 10/10 PAIN IN BILAT FEET, MEDICATED 1X c NORCO PER ORDERS & ELEVATED FEET ON PILLOW. DENIES DYPNEA, N/V. SPO2 >90% ON 3L O2 LONG PT LEAVES NC IN NARES. HS CBG 43, WHEN RECHECKED AFTER SNACK CBG @100 & LAST CBG @55-GAVE ANOTHER SNACK. PT PULLED OUT PICC LINE, READ PREVIOUS NOTE. CALL LIGHT & CHAIR ALARM IN PLACE FOR SAFETY. WILL MONITOR.
[2021-12-09 05:53] LABS: Hematocrit 25.9 % (33.0-51.0); Hemoglobin 8.1 g/dL (11.5-16.0)
[2021-12-09 06:25] LABS: Albumin, Blood 2.2 g/dL (3.4-5.0); Anion Gap 6 mmol/L (6-16); Blood Urea Nitrogen 72 mg/dL (8-24); Bun/Creatinine Ratio 23.8 (12.0-20.0); CO2, Blood 34 mmol/L (21-32); Calcium, Blood 8.6 mg/dL (8.5-10.1); Chloride, Blood 102 mmol/L (98-108); Creatinine, Blood 3.02 mg/dL (0.40-1.00); Glomerular Filtration Rate 19 (60-); Glucose, Blood 126 mg/dL (70-99); Magnesium, Blood 2.3 mg/dL (1.6-2.4); Phosphorus, Blood 2.9 mg/dL (2.5-4.9); Sodium, Blood 142 mmol/L (136-145)
--- NOTE | 2021-12-09 19:23 | NUR ---
SUMMARY- PT A/O X4. UP IN RECLINER ALL DAY, REFUSING TO GET INTO BED UNTIL 1744, ASSISTED PT TO BED 2PERSON MAX PIVOT TX TO BED WHILE WE CLEANDE A BM AND APPLIED POWDER TO ALL FOLDS. MEPILEX INTACT TO HEALS, WOUND RN NEVER CAME. SMALL SKIN SPLIT IN GROIN AND REDNESS R LEG CREASE. APPLIED MICONAZOLE POWDER TO ALL FOLDS. C/O LEG AND FEET PAIN, MEDIOCATED WITH VICODIN 2 Q6 WITH RELEIF, BUT SEEMS TO NEED MEDS CLOSER TO Q4. PT EXCEDED HER FLUID RESTRICTION THIS AM ASKING FOR MULT CUPS- STAFF OVERSITE PT EXCEEDED FLUID RES BY 1000. PT ATE ICE CHIPS AND SIPS THE REST OF THE DAY. AT 1350ML END OF THIS SHIFT. PUREWIC IN USE PUT OUT ABOUT 400ML./ NO DIALYSIS TODAY. DIALYSIS CATH RUC COVERED WITH GAUZE, NOT SUTRUED OR TAPED PT ALLERGIC, BUT APPEARS IN CORRECT POSITION (ASKED CHARGE TO VISUALIZE WELL)- PT TOLERATING FOOD. HAD SM BM THIS SHIFT. REPORTED TO NOC RN.
--- NOTE | 2021-12-10 04:55 | NUR ---
SHIFT SUMMARY AOX2-SELF, PLACE, FOLLOWING DIRECTIONS. UNAWARE DATE OR SPECIFIC REASON FOR BEING AT HOSPITAL, JUST KNOWS "SHES SICK". VSS. REPORTS 10/10 PAIN IN BLE, MEDICATED c SCHEDULED GABAPENTIN & 1X c 2 TAB NORCO & PT ABLE TO REST WELL T/O NIGHT. DENIES DYPNEA AT REST. E/U RESP. SPO2 >92% ON 3L O2. LS DIM c FINE CRACKLES IN BASES. DENIES N/V. VERY UPSET ABOUT FLUID RESTRICTION, PT OVER FLUID RESTRICTION UPON ME ARRIVING AT 1900 TO ASSUME CARE, SO FAR MERCEDES ONLY ALLOWED ROUGHLY 50ML IN ICE CHIPS & 75ML c KENAN MEDICATION. +3 EDEMA R PEDAL, +1 EDEMA L PEDAL. CLEANSED & CHANGED DRESSING ON BILAT FEET. PURWICK IN PLACE FOR INCONTINENCE. CALL LIGHT IN REACH & PT ABLE TO MAKE NEEDS KNOWN.
[2021-12-10 07:07] LABS: Hematocrit 25.2 % (33.0-51.0)
[2021-12-10 07:27] LABS: Albumin, Blood 2.2 g/dL (3.4-5.0); Anion Gap 7 mmol/L (6-16); Blood Urea Nitrogen 94 mg/dL (8-24); Bun/Creatinine Ratio 24.3 (12.0-20.0); CO2, Blood 34 mmol/L (21-32); Calcium, Blood 8.4 mg/dL (8.5-10.1); Chloride, Blood 100 mmol/L (98-108); Creatinine, Blood 3.87 mg/dL (0.40-1.00); Glomerular Filtration Rate 14 (60-); Glucose, Blood 118 mg/dL (70-99); Magnesium, Blood 2.2 mg/dL (1.6-2.4); Phosphorus, Blood 3.1 mg/dL (2.5-4.9); Potassium, Blood 4.4 mmol/L (3.5-5.5); Sodium, Blood 141 mmol/L (136-145)
--- NOTE | 2021-12-10 17:32 | NUR ---
SUMMARY- PT UP IN RECLINER ALL OF SHIFT, REFUSING TO GET INTO BED. STOOD WITH STAFF MID SHIFT AND CHANGED ATTENDS, WHIPED AND CHECKED BACKSIDE, SKIN INTACT, NO PRESURE SORES DEVELOPING ON BOTTOEM. REPLACED PUREWICK AND APPLIED DESINES POWDER TO RED AREAS IN FOLDS. PAIN CONTROLLED WITH VICODIN. PT TOLERATING FOOD AND FLUID. HAD MED SOFT BM. HAD DIALYSIS DOTAY 1.6L OFF. WILL REPORT TO CATRACHITO BERRY.
--- NOTE | 2021-12-11 04:37 | NUR ---
SHIFT SUMMARY NO ACUTE CHANGES TO PT CONDITION. PT COMPLAINED OF SOME CHRONIC LEG PAIN LAST EVENING AND WAS MEDICATED PER EMAR. PT HAS BEEN IN AND OUT OF SLEEP MOST OF THE NIGHT. PT IS HAVING DIFFICULTY ADHERING TO HER NIGHTLY FLUID RESTRICTION. PT ASKED SEVERAL TIMES AND SEVERAL PEOPLE FOR MORE FLUIDS. PT CURRENTLY SLEEPING IN HER RECLINER AND HAS NO COMPLAINTS AT THIS TIME. CALL LIGHT IS WITHIN HER REACH.
[2021-12-11 05:27] LABS: Hematocrit 26.7 % (33.0-51.0); Hemoglobin 8.4 g/dL (11.5-16.0)
[2021-12-11 05:45] LABS: Albumin, Blood 2.1 g/dL (3.4-5.0); Anion Gap 7 mmol/L (6-16); Blood Urea Nitrogen 71 mg/dL (8-24); Bun/Creatinine Ratio 23.4 (12.0-20.0); CO2, Blood 31 mmol/L (21-32); Calcium, Blood 8.7 mg/dL (8.5-10.1); Chloride, Blood 100 mmol/L (98-108); Creatinine, Blood 3.03 mg/dL (0.40-1.00); Glomerular Filtration Rate 19 (60-); Glucose, Blood 322 mg/dL (70-99); Magnesium, Blood 2.1 mg/dL (1.6-2.4); Phosphorus, Blood 2.7 mg/dL (2.5-4.9); Potassium, Blood 4.2 mmol/L (3.5-5.5); Sodium, Blood 138 mmol/L (136-145)
--- NOTE | 2021-12-11 10:09 | NUR ---
WOUND ASSESSMENT AND NEW PHOTO IN HARD CHART. ESCHAR TO R HEEL IS NO LONGER STABLE. RECOMMEND SURGICAL DEBRIDEMENT. PT HAD RLE ANGIOGRAM WITH INTERVENTION 09/14/21, BLOODFLOW SHOULD BE ADEQUATE FOR PROCEDURE.
--- NOTE | 2021-12-11 18:07 | NUR ---
SHIFT SUMMARY- PT IS ALERT, PLESANT AND CONFUSED AT TIMES. SHE IS EATING AND DRINKING WELL. HER BLOOD GLUCOSE WAS ELEVATED THIS SHIFT. SHE HAD A DRESSING CHANGE BY WOUND RN THIS SHIFT. ORTHO AND PODIATRY WERE CONSULTED, SHE WILL BE NPO AFTER MIDNIGHT FOR POSSIBLE PROCEDURE. SHE RECIEVED PAIN MEDICATIONS PER MAY. SHE WAS IN HER RECLINER FOR THE DURATION OF THIS SHIFT, CALL LIGHT IS WITIN REACH.
--- NOTE | 2021-12-12 03:49 | NUR ---
MANUFACTURING MAINTENANCE MANAGER SUMMARY SLEEPING AT SHIFT COMMENCE IN RECLINER. REFUSED TO WEAR CPAP, CONT TO USE NASAL CANNULA. O2 SATS WNL. REFUSED TO GO TO BED, REMAINED IN RECLINER. INCONT OF FECES, CLEANED UP AND LINEN OF CHAIR CHANGED. RECEIVED PAIN MEDS FOR PAIN OF BILAT FEET/LEGS. MED EFFECTIVE, WENT BACK TO SLEEP. PUREWICK IN USE. NPO FOR AM PROCEDURE - PROSTHODONTIST/EDUCATOR CONSULT CALLED IN. DRESSINGS OF BLE INTACT. CALL LIGHT IN REACH. BP WAS QUITE ELEVATED EARLIER BUT HAS TRENDED DOWN. WNL. NO NOTED S/S ACUTE DISTRESS AT THIS TIME.
[2021-12-12 05:55] LABS: Hematocrit 28.6 % (33.0-51.0)
[2021-12-12 06:18] LABS: Albumin, Blood 2.2 g/dL (3.4-5.0); Anion Gap 7 mmol/L (6-16); Blood Urea Nitrogen 97 mg/dL (8-24); Bun/Creatinine Ratio 26.5 (12.0-20.0); CO2, Blood 30 mmol/L (21-32); Calcium, Blood 8.7 mg/dL (8.5-10.1); Chloride, Blood 99 mmol/L (98-108); Creatinine, Blood 3.66 mg/dL (0.40-1.00); Glomerular Filtration Rate 15 (60-); Glucose, Blood 76 mg/dL (70-99); Magnesium, Blood 2.2 mg/dL (1.6-2.4); Phosphorus, Blood 3.2 mg/dL (2.5-4.9); Potassium, Blood 4.2 mmol/L (3.5-5.5); Sodium, Blood 136 mmol/L (136-145)
--- NOTE | 2021-12-12 17:58 | NUR ---
SHIFT SUMMARY- PT IS ALERT, PLESANT AND COOPERATIVE. SHE WENT FOR DIALYSIS THIS MORNING. DR. DUMONT WILL SEE THE PT IN THE MORNING AND PREFORM AN I/D ON HER FOOT. SHE WILL BE NPO AFTER MIDNIGHT FOR THAT PROCEDRUE. FAMILY WAS AT BEDSIDE THIS AFTERNOON. SHE IS IN THE RECLINER AND CALL LIGHT IS WITHIN REACH.
--- NOTE | 2021-12-13 03:13 | NUR ---
CHIMNEY BUILDER SUMMARY HAS BEEN RESTING QUIETLY IN RECLINER WITH FEW INTERRUPTIONS SINCE HS. VSS. TOLERATED MEDS WELL. PUREWICK IN USE. HAS BEEN NPO SINCE MIDNIGHT FOR PROCEDURE SCHEDULED IN THE AM. DRESSINGS OF BLE INTACT. CALL LIGHT IN REACH. CONTINUE TO RESTRICT PO FLUID INTAKE TO 1000 CC/24 HR PERIOD PER MD ORDERS. PT CONTINUES TO PUSH FLUID LIMITS. RESTING QUIETLY AT THIS TIME. NO NOTED S/S ACUTE DISTRESS. CALL LIGHT IN REACH. O2 PER NC, REFUSES TO USE CPAP
[2021-12-13 05:53] LABS: Hematocrit 26.9 % (33.0-51.0); Hemoglobin 8.4 g/dL (11.5-16.0)
[2021-12-13 06:12] LABS: Anion Gap 7 mmol/L (6-16); Blood Urea Nitrogen 84 mg/dL (8-24); Bun/Creatinine Ratio 28.2 (12.0-20.0); CO2, Blood 32 mmol/L (21-32); Calcium, Blood 8.6 mg/dL (8.5-10.1); Chloride, Blood 98 mmol/L (98-108); Creatinine, Blood 2.98 mg/dL (0.40-1.00); Glomerular Filtration Rate 19 (60-); Glucose, Blood 325 mg/dL (70-99); Magnesium, Blood 1.9 mg/dL (1.6-2.4); Phosphorus, Blood 2.9 mg/dL (2.5-4.9); Potassium, Blood 3.8 mmol/L (3.5-5.5); Sodium, Blood 137 mmol/L (136-145)
--- NOTE | 2021-12-13 13:34 | NUR ---
PATIENT'S PROCEDURE WAS CANCELLED, DUE TO CARE PROVIDER WAS NOT AVAILABLE TO BE TALK TO.
--- NOTE | 2021-12-14 05:01 | NUR ---
NIGHTSHIFT SUMMARY Patient AOx2, requested PRN for leg pain, PRN effective for pain control. RT came to set up BIPAP, patient only wore BIPAP for a short while, she started pulling equipment from her face. Patient tearful, and said she wanted her O2 NC, and RT said she could if she couldn't handle BIPAP. Patient slept comfortably all night, wearing NC, respirations equal/un-labored. BLE edematous. NPO at midnight, plan is to have I&D on right heel, if able to get consent from guardian. Vitals stable, CBGs WNL, rechecked CBG at 0130, CBG stable. Will continue plan of care.
[2021-12-14 05:29] LABS: Hematocrit 25.2 % (33.0-51.0); Hemoglobin 8.1 g/dL (11.5-16.0)
[2021-12-14 05:45] LABS: Albumin, Blood 2.1 g/dL (3.4-5.0); Anion Gap 7 mmol/L (6-16); Blood Urea Nitrogen 95 mg/dL (8-24); Bun/Creatinine Ratio 25.1 (12.0-20.0); CO2, Blood 30 mmol/L (21-32); Calcium, Blood 8.7 mg/dL (8.5-10.1); Chloride, Blood 98 mmol/L (98-108); Creatinine, Blood 3.79 mg/dL (0.40-1.00); Glomerular Filtration Rate 14 (60-); Glucose, Blood 142 mg/dL (70-99); Phosphorus, Blood 3.5 mg/dL (2.5-4.9); Potassium, Blood 4.2 mmol/L (3.5-5.5); Sodium, Blood 135 mmol/L (136-145)
--- NOTE | 2021-12-14 09:50 | NUR ---
ATTEMPTED TO CALL COLEMAN JENNINGS FOR GUARDIANSHIP AUTHORIZATION PRETAINING TO TODAYS SURGERY. FULL/ NO ANSWER. 2118
--- NOTE | 2021-12-14 12:54 | NUR ---
VERBAL TELEPHONE CONSENT FOR GUARDIANSHIP IRVIN: SPOKE WITH COLEMAN JENNINGS @3906. COLEMAN STATED SHE GAVE PERMISSION FOR PROCEDURE YESTERDAY AND EXTENTED THAT PERMISSION FOR TODAY'S SCHEDULED PROCEDURE.
--- NOTE | 2021-12-14 15:10 | NUR ---
12/14/21 1510 Stacie Velazquez NO PREOP ANTIBIOTICS PER .
--- NOTE | 2021-12-14 17:38 | NUR ---
SHIFT SUMMARY- PT HAD DIALYSIS IN AM, HELD ALL MEDS EXCEPT CARDIAC. PROCEDURE IN AFTERNOON. WOUND VAC IN PLACE. PT A&O X4. APPETITE GOOD. PT UP IN CHAIR MOST OF SHIFT ON FLOOR UNTIL RETURNING FROM PROCEDURE. PT C/O PAIN TREATED ACCORDING TO EMAR. CALL LIGHT IN RECAH, SIDE RAILS UP, AND BED ALARM ON FOR SAFETY.
--- NOTE | 2021-12-14 17:51 | NUR ---
SPOKE DR ABOUT PROCEDURE DISCUSSED RESULTS WITH HOSPITALIST, HOSPITALIST SAID HE WOULD F/U WITH PROPHYLACTIC COVERAGE UNTIL BCULTURES RESULTS.
--- NOTE | 2021-12-15 03:54 | NUR ---
NIGHTSHIFT SUMMARY Patient AOx2, laying in bed this evening requesting to get into chair. Patient declined to use FWW for transfers, stated "I can't its too hard". Staff 2x transfer to recliner. S/P I&D, wound vac applied to right heel, dressing CDI, suction continous. Patient calls appropriately, able to make needs known. Patient requesting snacks/drinks, provided education, patient tearful, unreceptive to patient education. CBG at HS 315, CBG at 0130 was 429. Notified MD, order to give 1 time dose of 8 units Humalog and recheck in AM. Refused BIBAP during night, sats stable on 2l/oxygen.
[2021-12-15 05:50] LABS: Hematocrit 26.3 % (33.0-51.0); Hemoglobin 8.3 g/dL (11.5-16.0)
[2021-12-15 06:29] LABS: Albumin, Blood 2.1 g/dL (3.4-5.0); Anion Gap 7 mmol/L (6-16); Blood Urea Nitrogen 77 mg/dL (8-24); Bun/Creatinine Ratio 24.1 (12.0-20.0); CO2, Blood 29 mmol/L (21-32); Calcium, Blood 8.6 mg/dL (8.5-10.1); Chloride, Blood 99 mmol/L (98-108); Creatinine, Blood 3.19 mg/dL (0.40-1.00); Glomerular Filtration Rate 17 (60-); Glucose, Blood 300 mg/dL (70-99); Magnesium, Blood 2.1 mg/dL (1.6-2.4); Phosphorus, Blood 3.6 mg/dL (2.5-4.9); Potassium, Blood 4.6 mmol/L (3.5-5.5); Sodium, Blood 135 mmol/L (136-145)
[2021-12-15 08:33] LABS: Percent Saturation 18.5 % (15.0-50.0)
--- NOTE | 2021-12-15 17:39 | NUR ---
shift summary- pt emotional/confused throughout shift. pt asleep often throughout day. no c/o of pain. floated heel. changed mepolix on L heel. blood sugars high at start of shift, have resolved into no extra insulin coverage needed by dinner time, see emar. pt transfered to bed as she is unable to stand safely to transfer to chair on own. will continue to monitor, call light in reach.
--- NOTE | 2021-12-16 03:33 | NUR ---
NIGHTSHIFT SUMMARY This evening patient asked staff for pudding, she had a difficult time finding the right words, she kept repeating "I need call-string" and "I want", finally able to communicate that she wanted a vanilla pudding. CBG at HS was 118, patient had pudding/clarisse crackers for snack. RT applied CPAP, patient sleeping comfortably w/ CPAP until awoken for meds at 1am. Patient arouses easily to voice. Patient stated she wore the CPAP long enough and only wanted the NC. Rechecked CBG at 0130 CBG was 159, patient wanted snacks, cheese/crackers provided. Patient requesting more crackers to eat, provided education on starchy carbs/CBGs, patient unreceptive. 0300 patient tearful requested CBG checked stated "my blood feels low". CBG result 160. Patient verbalized concern that her CBG will continue to drop, unless she has something to eat. upset, stating that it was low. Patient requesting more snacks. Patient slept comfortably in bed during the night. At this time patient dependent for cares/transfers. Patient wanted to sleep in recliner, explained that staff unable to move her to chair, if she could not stand and use FWW to pivot. Patient asked again, provided education on safety, and fall risk. Encourage patient to work with therapy in AM, so she could transfer to recliner. Vitals stable, saturations stable on .5L oxygen. Bed alarm acitvated & audible, call-light in reach. Will continue to monitor.
[2021-12-16 06:03] LABS: Hematocrit 25.7 % (33.0-51.0); Hemoglobin 8.4 g/dL (11.5-16.0)
[2021-12-16 06:24] LABS: Albumin, Blood 2.2 g/dL (3.4-5.0); Anion Gap 9 mmol/L (6-16); Blood Urea Nitrogen 90 mg/dL (8-24); Bun/Creatinine Ratio 24.2 (12.0-20.0); CO2, Blood 28 mmol/L (21-32); Calcium, Blood 9.1 mg/dL (8.5-10.1); Chloride, Blood 97 mmol/L (98-108); Creatinine, Blood 3.72 mg/dL (0.40-1.00); Glomerular Filtration Rate 15 (60-); Glucose, Blood 157 mg/dL (70-99); Magnesium, Blood 2.3 mg/dL (1.6-2.4); Phosphorus, Blood 3.8 mg/dL (2.5-4.9); Potassium, Blood 4.7 mmol/L (3.5-5.5); Sodium, Blood 134 mmol/L (136-145)
[2021-12-16 12:43] LABS: Vancomycin, Random 11.7 ug/mL
--- NOTE | 2021-12-16 12:49 | NUR ---
Case conference with pt's mom via telephone this morning. Pt is currently under emergency guardianship with a court appointed guardian. The past 2 hospital discharges have failed within hrs of pt leaving, with pt being placed back on the ventilator both times, with respiratory distress. Pt's mom Brooke has recently filed an appeal to stop the guardianship and states she plans to fight against it for "as long as she lives". She states she was fine with it initially and pt having to live in a facility, but not at all okay with someone else making the "life or " decisions. She admits feeling terrified that a court appointed guardian would "pull the plug" on the pt if she has an episode of respiratory failure or distress again. Attempted to reassure Brooke that court appointed guardians take all the data, including the pt's preference, the family's input along with the healthcare team under advisement when making major medical decisions. However, she is adamant that she should be the only one making the pt's healthcare decisions. Relayed this information to Nima Nunez, and VENANCIO Ruggiero. Will continue to offer emotional support to pt and her mom Brooke as needed.
--- NOTE | 2021-12-16 16:53 | NUR ---
PATIENT IS ALERT AND ORIENTED WITH TIMES OF FORGETFULLNESS. SHE C/O PAIN IN HER RIGHT FOOT. RIGHT FOOT HAS A WOUND VAC IN PLACE THAT WAS CHANGED TODAY BY MOTHER'S HELPER. PAIN MANAGED PER EMAR. PATIENT HAD A BEDBATH TODAY. TRANSFERRED TO RECLINER BY LIFT. PATIENT WAS DIALYZED TODAY. WILL WILL CONTINUE TO MONITOR
--- NOTE | 2021-12-16 17:38 | NUR ---
wOUND VAC DRESSING CHANGED. ONE PIECE BLACK FOAM REMOVED ONE REAPPLIED. VAC SET CONTINUOUS 120MMHG. CANISTER NOT CHANGED. PHOTO AND ASSESSMENT IN HARD CHART
--- NOTE | 2021-12-17 04:15 | NUR ---
NIGHTSHIFT SUMMARY No acute changes to patient status this shift, awaiting discharge planning. RT set up CPAP, patient declined to wear CPAP while sleeping, stated "I can't handle it". Patient became frusterated, tearful asking why she had all these cords. Explained, continous pulse ox measures SpO2, and benefits of CPAP for sleep quality & oxygenation. Patient stated "I can't handle it", but I will wear oxygen. CBG at HS was 91mg/dL, Lantus 4u held. Patient requesting snacks to eat, she is concerned her blood sugar will drop without eating. Provided education on healthy snacks for ADA diet. Rechecked blood sugar at 0130 am, CBG now 242. Vitals stable during night, saturations stable on 1L O2/NC. BLE elevated, +1 pitting edema, skin blanchable, patient c/o numbness/pain. Wound vac dressing applied to right heel, continous suction. Patient slept comfortably in chair during the night, arouses easily to voice. Will continue to monitor.
[2021-12-17 05:38] LABS: Hematocrit 27.6 % (33.0-51.0); Hemoglobin 8.6 g/dL (11.5-16.0); Mean Corpuscular HGB 30.7 pg (26.0-34.0); Mean Corpuscular HGB Conc 31.2 g/dL (31.5-36.5); Mean Corpuscular Volume 99 fL (80-100); Mean Platelet Volume 10.2 fL (9.1-12.4); Platelet Count 520 K/mm3 (150-400); RDW Coefficient Variation 14.5 % (11.7-14.2); RDW Standard Deviation 52.4 fL (35.1-46.3); White Blood Cell Count 12.85 K/mm3 (4.00-11.30)
[2021-12-17 05:56] LABS: Albumin, Blood 2.1 g/dL (3.4-5.0); Anion Gap 9 mmol/L (6-16); Blood Urea Nitrogen 72 mg/dL (8-24); Bun/Creatinine Ratio 21.3 (12.0-20.0); CO2, Blood 29 mmol/L (21-32); Calcium, Blood 8.4 mg/dL (8.5-10.1); Chloride, Blood 98 mmol/L (98-108); Creatinine, Blood 3.38 mg/dL (0.40-1.00); Glomerular Filtration Rate 16 (60-); Glucose, Blood 376 mg/dL (70-99); Magnesium, Blood 2.2 mg/dL (1.6-2.4); Phosphorus, Blood 3.4 mg/dL (2.5-4.9); Potassium, Blood 4.6 mmol/L (3.5-5.5); Sodium, Blood 136 mmol/L (136-145)
--- NOTE | 2021-12-17 19:23 | NUR ---
SHIFT SUMMARY PT A&OX 3-4 AND IN PLEASENT MOOD T/O SHIFT. AC/HS MEDICATED PER CARB COUNT AND SLIDE SCALE. TOLERATING PO INTAKE. 2L NC. ABD DISTENDED, PLAN TO INITIATE BOWEL CARE-REPORTED TO NEXT SHIFT. CALL LIGHT W/IN REACH. LIFT TRANSFER. PURE WICK IN PLACE.
--- NOTE | 2021-12-18 00:27 | NUR ---
FAMILY CONTACT RCV'D PHONE CALL F/NICOLASA EDMOND (AND LATOYA EDMOND)--BROTHER AND SISTER TO THE PATIENT; PERMISSION TO SPEAK F/PATIENT. UPDATED ON PT CURRENT STATUS AND THE THE STATUS OF THE WOUND I&D/WOUND VAC.
--- NOTE | 2021-12-18 03:38 | NUR ---
TREASURY ASSOCIATE SUMMARY PT HAD EPISODES OF HEAVY SLEEPING/DIFFICULTY AROUSING T/O THE NIGHT. PT IS ON 2L O2 NASAL CANULA; PT COMPLIANT W/CPAP FOR 4.5 HOURS W/ENCOURAGEMENT DURING THE NIGHT. NO BOWEL MOVEMENT; GAVE MILK OF MAG; WILL CONT TO MONITOR AND ASSESS FOR SUPOSITORY. PT REMAINED SLEEPING IN THE CHAIR T/O THE NIGHT. PURE WICK IN PLACE W/LITTLE OUTPUT NOTED. PT EDEMATOUS ALL OVER BODY; ABDOMEN IS TIGHT. CONT W/FLUID RESTRICTION; PT EMOTIONAL/CRYING WITH PERSISTANCE ASKING FOR FOOD NOT APPROPRIATE FOR DIABETIC DIET. CALL LIGHT IN REACH.
[2021-12-18 05:07] LABS: Hematocrit 25.1 % (33.0-51.0); Hemoglobin 8.1 g/dL (11.5-16.0)
[2021-12-18 05:44] LABS: Albumin, Blood 2.1 g/dL (3.4-5.0); Anion Gap 8 mmol/L (6-16); Blood Urea Nitrogen 97 mg/dL (8-24); Bun/Creatinine Ratio 24.7 (12.0-20.0); CO2, Blood 29 mmol/L (21-32); Calcium, Blood 8.7 mg/dL (8.5-10.1); Chloride, Blood 99 mmol/L (98-108); Creatinine, Blood 3.92 mg/dL (0.40-1.00); Glomerular Filtration Rate 14 (60-); Glucose, Blood 136 mg/dL (70-99); Magnesium, Blood 2.6 mg/dL (1.6-2.4); Phosphorus, Blood 3.2 mg/dL (2.5-4.9); Potassium, Blood 4.8 mmol/L (3.5-5.5); Sodium, Blood 136 mmol/L (136-145)
--- NOTE | 2021-12-18 09:09 | NUR ---
WOUND VAC DRESSING CHANGE. TWO PIECES OF BLACK KFOAM REMOVED, ONE REAPPLIED. CANISTER NOT CHANGED. VAC SET CONTINUOUS 120 MMHG. PT TOLERATED WELL
--- NOTE | 2021-12-18 18:19 | NUR ---
SHIFT SUMMARY PT HAS BEEN COOPERATIVE OF CARE AND PLEASANT. BOTH HEAL DRESSINGS AND WOUND VAC CHANGED TODAY BY WOUND CARE NURSE. PT UP IN RECLINER FOR THE DAY. PT COOPERATIVE WITH WEARING BIPAP FOR NAPS. VISITOR AT BEDSIDE DURING LUNCH. BLOOD GLUCOSE LOW, 58, DURING EVENING CHECK. TURKEY SANDWICH AND APPLE JUICE GIVEN. RECHEKED BLOOD GLUCOSE AND STILL 58. PT EATING DINNER AND WILL RECHECK BLOOD GLUCOSE. CALL LIGHT IN REACH.
--- NOTE | 2021-12-18 18:35 | NUR ---
Spiritual Care Visit. Pt. is sitting up in her recliner eating dinner and welcomes my visit. Pt. is pleasant, and verbalizes her anticipated transfer to a care facility in [place] in a couple days. Listen with a calm encouragement. Pt. also verbalized the sucess of a recent foot surgery. This plant maintenance manager has not seen this Pt. for about a week, so she was chatty. No other signs of distress, other than challenges for family at home. Prayed with Pt. Pt. asked this plant maintenance manager to return and verbalized gratitude for the spiritual care visit.
--- NOTE | 2021-12-19 05:04 | NUR ---
SHIFT SUMMARY PATIENT IS ALERT AND PLEASENT WITH CARE. PATIENT HAS BEEN SLEEPING OFF AND ON THIS SHIFT, PATIENT HAS BEEN COMBATIVE AND ARGUING ABOUT USING CPAP WHILE ASLEEP AND SATS DROPPED WHILE NOT USING CPAP WHILE ASLEEP. PATIENT HAS BEEN IN CHAIR ALL SHIFT RESTING. PATIENT IS ON 2L WHILE AWAKE. PATIENT HAS NOT HAD ANY COMPLAINTS OF NAUSEA, SOB, PAIN OR VOMITTING THIS SHIFT. PATIENT HAS HAD NO ACUTE EVENTS THIS SHIFT. BED IN LOCKED AND LOWEST POSITION. CALL LIGHT IN PLACE. WILL MONITOR UNTIL SHIFT CHANGE.
[2021-12-19 05:36] LABS: Hematocrit 26.1 % (33.0-51.0); Hemoglobin 8.5 g/dL (11.5-16.0)
[2021-12-19 06:00] LABS: Albumin, Blood 2.1 g/dL (3.4-5.0); Anion Gap 7 mmol/L (6-16); Blood Urea Nitrogen 114 mg/dL (8-24); Bun/Creatinine Ratio 25.7 (12.0-20.0); CO2, Blood 28 mmol/L (21-32); Calcium, Blood 8.6 mg/dL (8.5-10.1); Chloride, Blood 98 mmol/L (98-108); Creatinine, Blood 4.44 mg/dL (0.40-1.00); Glomerular Filtration Rate 12 (60-); Glucose, Blood 234 mg/dL (70-99); Magnesium, Blood 2.5 mg/dL (1.6-2.4); Phosphorus, Blood 3.3 mg/dL (2.5-4.9); Potassium, Blood 5.5 mmol/L (3.5-5.5); Sodium, Blood 133 mmol/L (136-145)
--- NOTE | 2021-12-19 18:57 | NUR ---
SHIFT SUMMARY PT HAD DIALYSIS TODAY. SHE HAS REMAINED WITHIN HER FLUID RESTRICTION. SHE CRIES AND YELLS OUT WHEN TOLD SHE CANNOT HAVE SNACKS OR MORE WATER. FAMILY CAME TO VISIT AND WERE NOTIFIED THAT [facility] IS LOOKING FOR THEIR MACHINE. SHE IS CURENTLY IN THE BED. IT IS IN THE LOWEST POSITION AND CALL LIGHT INREACH
--- NOTE | 2021-12-20 04:06 | NUR ---
ALLAN TOLERATED THE C-PAP FOR A FEW HOURS TONIGHT, FROM 2200 TO 0200. SHE THEN SWITCHED TO 2LPM VIA NC. PT WAS TRANSFERRED FROM BED TO CHAIR VIA LIFT. PT WILL NOT USE CALL LIGHT, INSTEAD WILL CALL OUT FOR HELP. PT REQUESTING ADDITIONAL PAIN MEDICATION, STATING SHE "ALWAYS TAKES TWO NORCOS" AND "HAS BEEN DOING THAT FOR 20 YEARS." HOWEVER, AFTER MEDICATING PER EMAR, PT SLEPT MOST OF THE SHIFT. NO ACUTE CHANGES. RN WILL CONTINUE TO MONITOR UNIL SHIFT CHANGE.
[2021-12-20 05:39] LABS: Anion Gap 9 mmol/L (6-16); Blood Urea Nitrogen 88 mg/dL (8-24); Bun/Creatinine Ratio 24.2 (12.0-20.0); CO2, Blood 28 mmol/L (21-32); Calcium, Blood 8.3 mg/dL (8.5-10.1); Chloride, Blood 99 mmol/L (98-108); Creatinine, Blood 3.64 mg/dL (0.40-1.00); Glomerular Filtration Rate 15 (60-); Glucose, Blood 156 mg/dL (70-99); Phosphorus, Blood 3.4 mg/dL (2.5-4.9); Potassium, Blood 4.8 mmol/L (3.5-5.5); Sodium, Blood 136 mmol/L (136-145)
--- NOTE | 2021-12-20 05:55 | NUR ---
PT C/O HEADACHE AND HAS RECEIVED TYLENOL. PT UNHAPPY WITH THE AMOUNT OF PAIN MEDICATION PRESCRIBED. SHE STATES SHE WILL ASK THE MD FOR TWO NORCO, WHICH SHE "ALWAYS TAKES."
--- NOTE | 2021-12-20 10:06 | NUR ---
WOUND VAC DRESSING CHANGED. ONE PIECE BLACK FOAM REMOVED, ONE REAPPLIED. CANISTER NOT CHANGED. VAC SET TO CONTINUOUS 120 MMHG. PT TOLERATED WELL.
--- NOTE | 2021-12-20 20:04 | NUR ---
END OF SHIFT SUMMARY: PATIENT REPORTED PAIN IN LEGS AND BACK THROUGHOUT THE SHIFT. PATIENT MEDICATED PER PRNS. PATIENT WAS WILLING TO WORK WITH PT AFTER LUNCH, BUT THIS WAS UNABLE TO WORK DUE TO PT STAFFING. PATIENT WORKED WITH STAFF DURING LIFT TRANSFERS TO THE BED TO MOVE LIMBS AND ASSIST POSSIBLE. PATIENT CALM AND COOPERATIVE WITH CARE. PATIENT TOLERATED FLUID RESTRICTION WITHOUT COMPLAINT. PATIENT STABLE ON 2L VIA NC. PATIENT DENIED SHORTNESS OF BREATH OR DIFFICULTY BREATHING. PLACING A POWERGLIDE WILL BE ATTEMPTED AGAIN TOMORROW.
[2021-12-21 04:53] LABS: Hematocrit 26.1 % (33.0-51.0); Hemoglobin 8.4 g/dL (11.5-16.0)
--- NOTE | 2021-12-21 05:08 | NUR ---
SHIFT SUMMARY 46 YR F ADMITTED ON 11/16/21 FOR HYPOXEMIA. FULL CODE. NO ACUTE CHANGES THIS SHIFT. PT CHOSE TO STAY IN HER RECLINING CHAIR FOR THE ENTIRETY OF THIS SHIFT. SHE SLEPT OFF AND ON BUT WAS ONLY WILLING TO WEAR HER CPAP FOR A FEW HOURS. SHE STATES THAT SHE IS COMFORTABLE AND SHE IS USING THE CALL LIGHT APPROPRIATELY.
[2021-12-21 05:10] LABS: Anion Gap 7 mmol/L (6-16); Blood Urea Nitrogen 105 mg/dL (8-24); Bun/Creatinine Ratio 23.5 (12.0-20.0); CO2, Blood 29 mmol/L (21-32); Calcium, Blood 8.5 mg/dL (8.5-10.1); Chloride, Blood 100 mmol/L (98-108); Creatinine, Blood 4.47 mg/dL (0.40-1.00); Glomerular Filtration Rate 12 (60-); Glucose, Blood 147 mg/dL (70-99); Magnesium, Blood 2.5 mg/dL (1.6-2.4); Phosphorus, Blood 4.2 mg/dL (2.5-4.9); Potassium, Blood 5.1 mmol/L (3.5-5.5); Sodium, Blood 136 mmol/L (136-145)
--- NOTE | 2021-12-21 19:35 | NUR ---
END OF SHIFT SUMMARY: PATIENT UP TO THE RECLINER THROUGHOUT THE DAY. PATIENT CONTINUES TO EXPRESS WILLINGNESS TO WORK WITH PT , BUT MISSES HER VISIT FROM PHYSICAL THERAPY. PATIENT UP TO THE BED TODAY FOR AN ENEMA - PATIENT PARTICIPATED AND LIFTED LEGS INDEPENDENTLY FOR SOME MOVEMENT. PATIENT ABLE TO HAVE A VERY LARGE BOWEL MOVEMENT TODAY. PATIENT EXPRESSED GREAT INCREASE IN COMFORT IN HER ABDOMEN. PATIENT HAS AN EXCELLENT APPETITE. PATIENT CONTINUES TO HAVE SOME STML, DIFFICULTY WITH WORD FINDING, AND DIFFICULTY WITH WORD FINDING.
[2021-12-22 04:05] LABS: Hematocrit 25.5 % (33.0-51.0); Hemoglobin 8.1 g/dL (11.5-16.0)
[2021-12-22 04:22] LABS: Albumin, Blood 1.9 g/dL (3.4-5.0); Anion Gap 6 mmol/L (6-16); Blood Urea Nitrogen 80 mg/dL (8-24); Bun/Creatinine Ratio 23.7 (12.0-20.0); CO2, Blood 32 mmol/L (21-32); Calcium, Blood 8.6 mg/dL (8.5-10.1); Chloride, Blood 100 mmol/L (98-108); Creatinine, Blood 3.38 mg/dL (0.40-1.00); Glomerular Filtration Rate 16 (60-); Glucose, Blood 180 mg/dL (70-99); Magnesium, Blood 2.5 mg/dL (1.6-2.4); Phosphorus, Blood 3.2 mg/dL (2.5-4.9); Potassium, Blood 4.6 mmol/L (3.5-5.5); Sodium, Blood 138 mmol/L (136-145)
--- NOTE | 2021-12-22 05:56 | NUR ---
SHIFT SUMMARY ASSUMED CARE OF PT AT 1900. PT IS A/OX2. PT IS SLOW TO RESPOND, GARBLED SPEECH, AND HAS TIMES OF CONFUSION. PT IS VERY FIXIATED ON HER GLUCOSE MONITORING AND ASKING EVERY HOUR IF SHE COULD GET IT CHECKED. PT WOULD FORGET SHE ALREADY HAD HER GLUCOSE CHECKED AND BECOME TEARFUL WHEN TOLD SHE DIDNT NEED ANOTHER CHECK YET. HEART SOUNDS REGULAR, LUNG SOUNDS DIMINISHED. PT REMAINED ON 2L NC T/O THE NIGHT. PT DRESSINGS C/D/I. WOUND VAC ON R FOOT. PT REMAINED AWAKE UNTIL 0200 WHEN SHE FINALLY FELL ASLEEP TALKING WITH FAMILY ON THE PHONE.
[2021-12-22 15:07] LABS: 25-HYDROXY, VITAMIN D 10 ng/mL (.); 25-HYDROXY, VITAMIN D-2 <1.0 ng/mL (.); 25-HYDROXY, VITAMIN D-3 10 ng/mL (.)
--- NOTE | 2021-12-22 17:51 | NUR ---
SHIFT SUMMARY; PATIENT SITTING IN RECLINER MOST OF DAY. RETURNED TO BED FOR DRESSING CHANGE BED BATH AND TURN ON HER SIDE TO KEEP HER OFF HER BOTTOM BECAUSE OF INCREASED REDNESS. HER CHAIR WAS CLEANED AND IS CURRENTLY SITTING IN HALLWAY DRYING DRYING. PATIENT MOANS DURING DAY ASKING FOR NARCOTICS PAIN MEDICATION. ORDER IS FOR Q SIX HOURS AND NOT DO AGAIN TILL 2144. PATIENT VERBALIZED UNDERSTANDING HOWEVER THEN ASKS A FEW MINUTES LATER FOR PAIN MEDS AGAIN. PATIENT REFUSES TYLENOL. WOUND VAC SHOWS NO DRAINAGE DURING DAY SHIFT. PUREWICK IN PLACE AND PATIENT HAS SCANT URINE OUTPUT NOTED. WILL CONTINUE TO MONITOR THIS PATIENT CLOSELY UNTIL REPORT AND HAND OFF TO NOC SHIFT RN.
--- NOTE | 2021-12-23 05:23 | NUR ---
SHIFT SUMMARY AT THE START OF SHIFT PT STATED SHE WAS UNCOMFORTABLE IN BED AND WANTED TO BE MOVED BACK TO THE RECLINER. MOBILE LIFT AND SLING WERE USED TO TRANSFER PT TO RECLINER, WHICH SHE STATES WAS MUCH MORE COMFORTABLE. PT WAS HYPOTENSIVE WITH A BP OF 100/73 AT 0015, HELD MIDNIGHT BP MEDS. NO C/O OF PAIN OR NAUSEA, PT SLEPT COMFORTABLY WITH CPAP T/O MOST OF THE NIGHT. PT ON 2L WHEN NOT ON CPAP. NO ACUTE EVENTS, AOX3, PT PLEASANT AND COOPERATIVE WITH CARE.
--- NOTE | 2021-12-23 08:00 | NUR ---
PT TALKING, SLOWLY, APPROP. A/O X3. DENIES PAIN AT THIS TIME. H/R REG, SOME DISTANT, NO MURMUR NOTED. NO TELE. LUNGS CLEAR, RESP EASY, UNLABORED. ON 2L O2. BT X4 LAST BM YEST PER PT. VOIDS PERIWICK. YELLOW FLUID IN CONTAINER. PRESENTLY ON SUCTION APPROP. PER P/T SHOULD BE ABLE TO STAND PIVOT AT BASELINE, BUT LIFT AT THIS TIME. BED IN LOW POSITIOIN, CALL LITE IN REACH, CALLS APPROP
[2021-12-23 09:48] LABS: Hematocrit 27.6 % (33.0-51.0); Hemoglobin 8.8 g/dL (11.5-16.0)
[2021-12-23 10:07] LABS: Albumin, Blood 2.2 g/dL (3.4-5.0); Anion Gap 9 mmol/L (6-16); Blood Urea Nitrogen 96 mg/dL (8-24); Bun/Creatinine Ratio 23.9 (12.0-20.0); CO2, Blood 27 mmol/L (21-32); Calcium, Blood 9.2 mg/dL (8.5-10.1); Chloride, Blood 98 mmol/L (98-108); Creatinine, Blood 4.02 mg/dL (0.40-1.00); Glomerular Filtration Rate 13 (60-); Glucose, Blood 434 mg/dL (70-99); Magnesium, Blood 2.3 mg/dL (1.6-2.4); Phosphorus, Blood 3.9 mg/dL (2.5-4.9); Potassium, Blood 4.7 mmol/L (3.5-5.5); Sodium, Blood 134 mmol/L (136-145)
--- NOTE | 2021-12-23 11:51 | NUR ---
[facility] RESPONSE CALLED. AIDE CALLED WHEN NOTED PT NOT BREATHING WELL, NOT WAKING HARDLY. O2 CHECK REVEALED 68-70% O2 SATS. ON 2L. INCREASED TO 6L N/C, NO IMPROVEMENT. HOOKED UP CPAP TO 15L O2 MAX. CALLED [facility] RESPONSE FOR LETHARGY AND LOW O2 SATS. DID SLOWLY COME UP TO 89-90% OVER SEVERAL MINUTES. CBG SHOWS 431, B/P 150/67, P 79. DR REVIEWED PT IN ROOM. NOT TO TREAT CBG AT THIS TIME. CONTINUE WE ARE. TITRATE DOWN POSSIBLE. PT IN CHAIR. DOES NOT ATTEMPT TO GET UP.
--- NOTE | 2021-12-23 12:16 | NUR ---
CALLED DR KELLEY TO UPDATE BP 144/69, ON 12 LITER CPAP. TO MAINTAIN 91% CBG 330, NOT ABLE TO EAT, ORDERS TO HOLD CARB COUNT INSULIN, GIVE 3 UNITS FOR S/S. USING H/S NPO DOSING.
--- NOTE | 2021-12-23 15:44 | NUR ---
PT ABLE TO TOLERATE HI KATHY N/C. STARTED AT 8 LITERS. ABLE TO HOLD 93% AT 5L. PT RESTING COMFORTABLY AT THIS TIME
--- NOTE | 2021-12-23 16:36 | NUR ---
PT HAS BEEN COOP TODAY. DID HAVE RESPITORY DISTRESS TODAY. [facility] RESPONSE CALLED AT 1010 THIS AM. HAS BEEN ON CPAP TODAY. 15L DOWN TO 6L. THIS DUNG, ABLE TO MOVE TO HIGH FLOW N/C PRESENTLY DOWN TO 5L AND MAINTAINING >92%. IS ON CONT BIOX. CBG AT 1000 WAS UP AT 431. DISCUSSED ALL THIS WITH DR LEMUS AT [facility]. CONTINUE TO MONITOR. PT EATING SOME FOOD NOW. WOUND IS EXPECTED TO BE CHANGED THIS DUNG BY WOUND CLINIC, STATES WILL BE BACK SOON. NO OTHER CONCERNS NOTED. BED IN LOW POSITION, CALL LITE IN REACH, CALLS APPROP.
--- NOTE | 2021-12-23 18:08 | NUR ---
WOUND VAC DRESSING CHANGED. NEW PHOTO AND ASSESSMENT IN HARD CHART. ONE PIECE OF BLACK FOAM REMOVED ONE REAPPLIED. VAC SET TO 120 MMHG. CANISTER NOT CHANGED
--- NOTE | 2021-12-23 18:12 | NUR ---
HOLDING INSULIN FOR 1700 DOSE PT NOT EATING YET.
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
[2021-12-24 04:32] LABS: Hematocrit 24.4 % (33.0-51.0); Hemoglobin 7.7 g/dL (11.5-16.0)
[2021-12-24 04:56] LABS: Anion Gap 8 mmol/L (6-16); Blood Urea Nitrogen 107 mg/dL (8-24); CO2, Blood 29 mmol/L (21-32); Calcium, Blood 8.7 mg/dL (8.5-10.1); Chloride, Blood 99 mmol/L (98-108); Creatinine, Blood 4.45 mg/dL (0.40-1.00); Glomerular Filtration Rate 12 (60-); Glucose, Blood 172 mg/dL (70-99); Magnesium, Blood 2.6 mg/dL (1.6-2.4); Phosphorus, Blood 4.3 mg/dL (2.5-4.9); Potassium, Blood 5.1 mmol/L (3.5-5.5); Sodium, Blood 136 mmol/L (136-145)
--- NOTE | 2021-12-24 06:26 | NUR ---
SHIFT SUMMARY PT CAME DOWN FROM MEDICAL FLOOR VIA SPECIALTY BED. PT REMAINED ON SPECIALTY BED UNTIL TRANSFERED TO RECLINER BY 4 STAFF. VSS. PT ALERT, ANXIOUS. ABLE TO STATE WHERE SHE IS AND ANSWER QUESTION APPROPRIATELY. L EYE/EYEBROW SWOLLEN, BRUISE. ICE APPLIED. SP02>90% ON 7L NC/CPAP W/ 6L BLEED IN. WORE CPAP A FEW HOURS DURING NOC. MEDICAL STATUS, NO TELE. PURWIK IN PLACE. NO BM THIS SHIFT. PT SLEPT IN CHAIR DURING NOC. CALL LIGHT IN REACH. CHAIR ALARM IN PLACE.
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
--- NOTE | 2021-12-24 18:12 | NUR ---
NURSING PCU DAYSHIFT SUMMARY: No significant changes noted t/o the shift. Family at bedside intermittently, updates provided. Pt spend entire shift OOB in chair. HD completed this a.m., tolerated well. Most of shift was spent on NC w/O2 sat in the 90's, CPAP placed at approx 1600 while pt napped, tolerated well. Pt currently sitting up eating supper. Denies any current needs. Call light in reach though frequent rounding is required. Cont to monitor until rpt is given to CATRACHITO RN.
[2021-12-25 04:20] LABS: Hematocrit 24.9 % (33.0-51.0)
[2021-12-25 04:36] LABS: Anion Gap 8 mmol/L (6-16); Blood Urea Nitrogen 86 mg/dL (8-24); Bun/Creatinine Ratio 25.1 (12.0-20.0); CO2, Blood 31 mmol/L (21-32); Calcium, Blood 8.2 mg/dL (8.5-10.1); Chloride, Blood 99 mmol/L (98-108); Creatinine, Blood 3.42 mg/dL (0.40-1.00); Glomerular Filtration Rate 16 (60-); Glucose, Blood 228 mg/dL (70-99); Magnesium, Blood 2.4 mg/dL (1.6-2.4); Phosphorus, Blood 3.5 mg/dL (2.5-4.9); Potassium, Blood 4.5 mmol/L (3.5-5.5); Sodium, Blood 138 mmol/L (136-145)
--- NOTE | 2021-12-25 04:52 | NUR ---
SHIFT SUMMARY PT IS A/Ox3-4 AND IS ABLE TO FOLLOW DIRECTIONS FROM STAFF. HOWEVER, PT CAN BE FORGETFUL AND REPEATS QUESTIONS AT TIMES. NM MAINTAINED SPO2>94% ON 6L VIA NC AND WITH CPAP AT NIGHT. NO SOB OR DYSPNEA NOTED, BUT PT DESATS QUICKLY WHEN NOT USING SUPPLEMENAL O2. PT STILL DEMONSTRATES SEVERE EDEMA T/O HER BODY, ESPECIALLY IN HER LOWER EXTREM. WOUND VAC IN PLACE WITH MINIMAL DRAINAGE T/O THE NIGHT. PUREWICK IN PLACE PATENT AND DRAINING WITH SUCITON. PT WANTED TO SLEEP IN CHAIR T/O THE NIGHT. PT'S PAIN MANAGED VIA EMAR. NO ACUTE CHANGES NOTED. VSS, NADN T/O THE SHIFT
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
--- NOTE | 2021-12-25 11:14 | NUR ---
WOUND VAC DRESSING CHANGED. ONE PIECE BLACK FOAM REMOVED, WOUND CLEANSED WITH NS, ONE PIECE BLACK FOAM REAPPLIED. VAC SET AT 120MMHG. CANISTER NOT CHANGED. PT TOLERATED WELL
--- NOTE | 2021-12-25 17:41 | NUR ---
PT SUMMARY: SEE AM NOTES. NO ACUTE CHANGE FOR THE REST OF THE SHIFT. VITALS HAS BEEN STABLE. PT OOB IN THE RECLINER ALL SHIFT, HAS BEEN REPOSITIONED FOR COMFORT. NO DIALYSIS TODAY, CATHETER PORT DRESSING CDI. PUREWICK IN PLACE HAD 850 URINE OUT, HAD ABOUT 650MLS FLUID INTAKE. TOLERATING FOOD WITH NO ISSUES. REMAINED ON 4L OF O2 SATS MAINTAINED ABOVE 90%, CPAP IN PLACE WHEN SLEEPING. WOUND VAC THERAPY ONGOING DRESSING CDI ON R HEEL WAS CHANGED TODAY BY THE WOUND CARE NURSE. PT WAS SLEEPING MOST OF THE SHIFT. NOTICED WEEPING EDEMA ON LEFT LOWER ABD, SOAK PAD IN PLACE. MEDICATED ONCE FOR ANXIETY AND PAIN AND WAS EFFECTIVE. NO OTHER ISSUES ENCOUNTERED, ABLE TO MAKE NEEDS KNOWN, CALL LIGHTS IN REACH WILL CONTINUE TO MONITOR
[2021-12-26 04:01] LABS: Hematocrit 25.7 % (33.0-51.0); Hemoglobin 8.1 g/dL (11.5-16.0)
[2021-12-26 04:19] LABS: Anion Gap 3 mmol/L (6-16); Blood Urea Nitrogen 105 mg/dL (8-24); CO2, Blood 34 mmol/L (21-32); Calcium, Blood 8.8 mg/dL (8.5-10.1); Chloride, Blood 101 mmol/L (98-108); Creatinine, Blood 4.04 mg/dL (0.40-1.00); Glomerular Filtration Rate 13 (60-); Glucose, Blood 116 mg/dL (70-99); Magnesium, Blood 2.4 mg/dL (1.6-2.4); Phosphorus, Blood 3.7 mg/dL (2.5-4.9); Sodium, Blood 138 mmol/L (136-145)
--- NOTE | 2021-12-26 05:32 | NUR ---
SHIFT SUMMARY NO ACUTE CHANGES THIS SHFIT. VSS. PT OOB IN RECLINER DURING SHIFT, REFUSED BED. TALKED TO FAMILY ON FACE TIME FIRST HALF OF SHIFT. WORE 4L NC UNTIL PUT ON CPAP WHILE SLEEPING. PUREWICK IN PLACE. WOUND VAC THERAPY IN PLACE TO R HEEL. MEDICATED FOR PAIN X1 PER EMAR. SLEPT SECOND HALF OF SHIFT. CALL LIGHT IN REACH. CHAIR ALARM ON.
[2021-12-26 14:14] LABS: Base Excess Venous 10.9 mmol/L; Bicarbonate Venous 33.7 mmol/L (24.0-30.0); PCO2 Venous 42.9 mmHg (38-42); pH Blood Venous 7.51 (7.34-7.37)
--- NOTE | 2021-12-26 14:55 | NUR ---
UPDATE CONTACTED DR MANLEY PER DR REQUEST WITH RESULTS OF VBG. DR ORDERED RN TO HOLD ALL NARCOTICS AND HYDROXYZINE FOR 24 HRS.
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
--- NOTE | 2021-12-26 21:29 | NUR ---
ASSUMPTION OF CARE/ PATIENT UPDATE THIS RN ASSUMED CARE OF PATIENT AT 1900. REPORT TAKEN FROM BRY RN. PATIENT AGGITATED SO FAR DURING THIS SHIFT DUE TO ORDERS FOR NO SNACKS AND FLUID RESTRICTION. THERAPEUTIC LISTENING GIVEN BY THIS RN WITH REINFORCEMENT OF TEACHING. PATIENT BECOMES TEARFUL EASILY AND HAS TROUBLE FINDING THE WORDS DURING CONVERSATION WITH THIS RN. PATIENT WAS PREVIOUSLY LETHARGIC FOR THE LAST RN, WITH ORDERS TO HOLD ALL ANXIETY/PAIN MEDICATION FOR 24HRS. THIS RN COMMUNICATED THE REASONING FOR NOT GIVING PATIENT PAIN/ANXIETY MEDICATION YET; PATIENT HAS BEEN ALERT FOR THIS RN SO FAR DURING THE SHIFT. PATIENT CONTINUES TO BE AGGITATED AT THIS RN BUT AGREES WITH CARE AT THIS TIME. PATIENT ON PHONE WITH MOTHER AT THIS TIME. WILL CONTINUE TO MONITOR UNTIL SHIFT CHANGE AT 0700 TOMORROW MORNING. CALL LIGHT WITHIN REACH.
--- NOTE | 2021-12-27 04:01 | NUR ---
SHIFT SUMMARY PATIENT A/O 2-3 DURING THIS SHIFT. PATIENT WAS COOPERATIVE WITH CARE BUT EXHIBITED ANXIETY AND AGGITATION DURING THE SHIFT. PATIENT ON CPAP WITH 5L BLEEDIN IN WITH O2 SATS >92%. HTN NOTED; MEDICATING PER EMAR. OTHER VITALS STABLE. PERICARE AND POWDER PLACED IN FOLDS FOR REDNESS. PURE-WICK IN PLACE FOR URINE TO HELP WITH MOISTURE. LEFT HEEL DRESSING C/D/I. RIGHT HEEL WOUND VAC DRESSING C/D/I. BOTH HEELS FLOATED. TURNING PATIENT FREQUENTLY IN CHAIR WITH PILLOWS. PER MD ORDER, NARCOTICS AND ANXIETY MEDICATIONS ARE BEING HELD FOR 24HRS (1500 12/27) DUE TO PREVIOUS PROBLEM WITH INCREASED LETHARGY. PATIENT EXPRESSES IRRITATION WITH HOLDING MEDICATION. PATIENT HAS BEEN RESTING COMFORTABLY THROUGHOUT MOST OF THE SHIFT WITH CPAP IN PLACE. CALL LIGHT IN REACH. FREQUENT CHECKS FOR SAFETY. WILL CONTINUE TO MONITOR UNTIL SHIFT CHANGE AT 0700.
[2021-12-27 05:50] LABS: Hemoglobin 8.8 g/dL (11.5-16.0)
[2021-12-27 06:40] LABS: Magnesium, Blood 2.5 mg/dL (1.6-2.4)
[2021-12-27 06:41] LABS: Albumin, Blood 2.2 g/dL (3.4-5.0); Anion Gap 6 mmol/L (6-16); Blood Urea Nitrogen 86 mg/dL (8-24); Bun/Creatinine Ratio 24.9 (12.0-20.0); CO2, Blood 31 mmol/L (21-32); Calcium, Blood 8.9 mg/dL (8.5-10.1); Chloride, Blood 100 mmol/L (98-108); Creatinine, Blood 3.46 mg/dL (0.40-1.00); Glomerular Filtration Rate 16 (60-); Glucose, Blood 180 mg/dL (70-99); Phosphorus, Blood 3.4 mg/dL (2.5-4.9); Potassium, Blood 4.4 mmol/L (3.5-5.5); Sodium, Blood 137 mmol/L (136-145)
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
--- NOTE | 2021-12-27 13:49 | NUR ---
ALLAN RETURNED FROM DIALYSIS, BLOOD SUGAR CHECKED, MEDS GIVEN LUNCH PROVIDED. BED BATH GIVEN, VISITING WITH STAFF, ORIENTED TO WHOM THEY ARE AND ASKED STAFF SPECIFIC QUESTIONS. HAIR BRAIDED AFTER WASHING. RIGHT LEG REMAINS SWOLLEN AND EDEMATOUS, ABDOMEN POST DIALYSIS REMAINS LARGE AND TAUT. BP STABLE. OXYGEN VIA NASAL CANNULA WITH GOOD SATS. MEDICATED WITH ONE PAIN PILL WITH GOOD RELIEF.
--- NOTE | 2021-12-27 17:15 | NUR ---
WOUND VAC DRESSING REMOVED. WOUND BED IS FLUSH AND STARTING TO HYPERGRANULATE AT POSTERIOR EDGE, WOULD RECOMMEND DISCONTINUING VAC AT THIS TIME. CALCIUM ALGINATE WITH BORDERED FOAM PLACED AT THIS TIME. WOUND CLINIC RN WILL RETURN THURSDAY AND REEVALUATE.
--- NOTE | 2021-12-27 18:29 | NUR ---
ALLAN HAS DONE WELL TODAY, EATING ALL 3 MEALS WITHOUT PROBLEM, ORIENTED AND COMMUNICATIVE WITH ALL STAFF, RECALLING WHOM SHE HAS WORKED WITH PREVIOUSLY. SHE HAS BEEN ABLE TO SHARE OF HER EXPERIENCE FROM THE OTHER NIGHT WITHOUT PROMPTING. SHE TALKS ABOUT IT FREELY. HER FACE CONTINUES TO BE BRUISED WITH SWELLING OVER THE LEFT EYEBROW. SHE HAD THE WOUND VAC DISCONTINUED BY WOUND TEAM AND CALL WAS PLACED TO PCP IN REGARDS. HEEL DRESSED. THE RIGHT LEG CONTINUES TO BE SWOLLEN AND RED, TAUT. ABDOMEN WELL, LEFT LOWER EXTREMITY SWOLLEN WITH LESS REDNESS AND EDEMA THAN THE RIGHT. NO FURTHER REQUESTS FOR MEDICATION.
--- NOTE | 2021-12-28 03:58 | NUR ---
END OF SHIFT SUMMARY NO ACCUTE EVENTS OVER NIGHT PT HAS BEEN SLIGHTLY HYPERTENSIVE IN 150'S HER BS AT BEDTIME CHECK WAS 110. PT HAD LARGE BM NO COMPLAINTS OF PAIN. WILL CONTINUE TO MONITORE AND REPORT OFF TO DAY RN
[2021-12-28 04:26] LABS: Hematocrit 25.9 % (33.0-51.0); Hemoglobin 8.2 g/dL (11.5-16.0)
[2021-12-28 04:52] LABS: Magnesium, Blood 2.3 mg/dL (1.6-2.4)
[2021-12-28 04:53] LABS: Anion Gap 6 mmol/L (6-16); Blood Urea Nitrogen 79 mg/dL (8-24); Bun/Creatinine Ratio 27.5 (12.0-20.0); CO2, Blood 33 mmol/L (21-32); Calcium, Blood 8.6 mg/dL (8.5-10.1); Chloride, Blood 99 mmol/L (98-108); Creatinine, Blood 2.87 mg/dL (0.40-1.00); Glomerular Filtration Rate 20 (60-); Glucose, Blood 288 mg/dL (70-99); Phosphorus, Blood 2.9 mg/dL (2.5-4.9); Potassium, Blood 4.1 mmol/L (3.5-5.5); Sodium, Blood 138 mmol/L (136-145)
--- NOTE | 2021-12-28 16:39 | NUR ---
SHIFT SUMMARY PT A&OX3, COOPERATIVE WITH CARE, VSS, 6LNC, BP MANAGED PER EMAR, 1L FLUID RESTRICTION. CBGS MED SS AND CARB COUNT, COVERAGE AC REQ. GRISEL PO, MEAL ASSIST AND SET UP. VOIDING WITH PUREWICK/SUCTION. UP TO CHAIR. R HEEL DRESSING DRY/INTACT, NWB. PLAN FOR DIALYSIS TOMORROW. WILL REPORT TO ONCOMING CATRACHITO BERRY.
[2021-12-29 04:55] LABS: Hematocrit 24.4 % (33.0-51.0); Hemoglobin 7.8 g/dL (11.5-16.0)
[2021-12-29 05:12] LABS: Albumin, Blood 2.1 g/dL (3.4-5.0); Anion Gap 6 mmol/L (6-16); Blood Urea Nitrogen 100 mg/dL (8-24); CO2, Blood 32 mmol/L (21-32); Calcium, Blood 9.3 mg/dL (8.5-10.1); Chloride, Blood 100 mmol/L (98-108); Creatinine, Blood 3.57 mg/dL (0.40-1.00); Glomerular Filtration Rate 15 (60-); Glucose, Blood 72 mg/dL (70-99); Magnesium, Blood 2.2 mg/dL (1.6-2.4); Phosphorus, Blood 3.6 mg/dL (2.5-4.9); Potassium, Blood 3.8 mmol/L (3.5-5.5); Sodium, Blood 138 mmol/L (136-145)
--- NOTE | 2021-12-29 06:41 | NUR ---
SHIFT SUMMARY: PT ON 5L NC SATTING IN UPPER 90s, PT REPORTS IMMENSE PAIN IN BACK, REPOSITIONED AND ADMINISTERED NORCO DUE TO ALERTNESS AND GOOD RESPIRATORY DRIVE. PT TOLERATED NORCO WELL. CPAP ON HS AND SWITCHED OVER TO 5L NC THIS AM. PUREWICK REPLACED. PT REMAINS IN CHAIR.
--- NOTE | 2021-12-29 10:03 | NUR ---
ASUMPTION OF CARE: ARRIVED OT PATIENT ROOM DURING ASSUMPTION AT 0715 12/29/21, PATIENT HAS BEEN SLEEPING IN THE CHAIR ON 5L VIA NC, DID NOT WEAR HER CPAP FOR MOST OF THE NIGHT, REEDUCATED PATIENT ON IMPORTANCE, PATIENT DENIES CHEST PAIN, IS ORIENTED BY SLEEPY, KEEPS ASKING FOR PAIN MEDICATIONS, AND ASKING RN TO PLACE NEW ORDERS, EDUCATED PATIENT THAT SHE SHOULD SPEAK WITH THE HOSPITALIST FOR MEDICATION CHANGES, NURSES CANNOT PRESCRIBE. PATIENT UNDERSTOOD, TREATED PAIN WITH NON NARCOTIC PAIN MEDS. PATIENT WAS RECENTLY OBTUNDED A FEW DAYS PRIOR AND REPORT OF CONTINUED USE OF NARCOTIC CONTRIBUTED. PATIENT TO HAVE DIALYSIS IN THE ROOM, BLOOD PRESSURE MEDS HELD PER REQUEST OF MANAGER READING. MORNING CBG WAS 64, PATIENT WAS ALERT ENOUGH TO EAT. NO AC FAST INSULIN GIVEN, BUT CARB COUNTING INSULIN WAS GIVEN AFTER SOLEDAD OF CBG IN THE 160'S. PATIENT ABDOMEN IS INCREASED IN SIZE AND MORE FIRM SINCE THE LAST TIME THIS RN HAD HER, DENIES PAIN AT THIS TIME, WILL CONTINUE TO MONITOR. PATIENT IS MORE ALERT THROUGH THE DAY PROGRESES, STILL FEEL UNSAFE TO MEDICATE PATIENT WITH NARCOTICS AT THIS TIME. NO SIGN OF ACUTE DISTRESS AT THIS TIME, CAMERA IN PLACE.
--- NOTE | 2021-12-29 16:55 | NUR ---
END OF SHIFT: PLEASE SEE ASSUMPTION OF CARE, NO CHANGE IN SITUATION.
[2021-12-30 04:15] LABS: Hematocrit 25.5 % (33.0-51.0); Hemoglobin 8.1 g/dL (11.5-16.0)
[2021-12-30 04:34] LABS: Albumin, Blood 2.1 g/dL (3.4-5.0); Anion Gap 7 mmol/L (6-16); Blood Urea Nitrogen 84 mg/dL (8-24); Bun/Creatinine Ratio 28.3 (12.0-20.0); CO2, Blood 33 mmol/L (21-32); Calcium, Blood 8.7 mg/dL (8.5-10.1); Chloride, Blood 98 mmol/L (98-108); Creatinine, Blood 2.97 mg/dL (0.40-1.00); Glomerular Filtration Rate 19 (60-); Glucose, Blood 302 mg/dL (70-99); Sodium, Blood 138 mmol/L (136-145)
--- NOTE | 2021-12-30 05:25 | NUR ---
SHIFT SUMMARY PT A&O, LEVEL OF MENTATION IS BASELINE. PT COMMUNICATES NEEDS AND FOLLOWS DIRECTIONS. PT REMAINED IN CHAIR THROUGHOUT SHIFT, PT STATED THAT SHE DID NOT WANT TO SLEEP IN HOSPITAL BED. SpO2> 92% ON 3L VIA NC. PT WORE CPAP FOR APPROXIMATELY 6 HOURS THIS SHIFT. BP ELEVATED, MANAGED PER EMAR. PT NOT ON TELE MONITORING. PUREWICK IN PLACE, PATENT. NO OTHER EVENTS, WILL REPORT TO DAY SHIFT RN.
--- NOTE | 2021-12-30 13:32 | NUR ---
ASSUMPTION OF CARE: PATIENT HSA BEEN A/OX3, CONFUSED AT TIMES, THIS AM FELT MORE SOB, WSA INCREASED TO A LARGER TUBING AND INCREASED TO 7L. PATIENT WAS ABLE TO SAT >88% SPO2, BUT FELT SHE NEEDED THE CPAP. CPAP WAS PLACED, AND SPO2 WITH 5L BLEED IN TO CPAP WAS >93% WHEN MASK PROPERLY ON. PATIENT AT TIMES MOVES THE MASK, WHICH BREAKS THE SEAL. ADDITIONALLY NIGHT RN HELD THE LONG ACTING DUE TO LOWER BLOOD SUGAR, AND WAS GIVEN A POSSIBLE SNACK, INCREASED CBG THIS AM TO >400 TREATED AND LUNCH CBG WAS 300'S SLOWLY IMPROVING,, DIALYSIS SCHEDULED FOR TODAY. PATIENT HS BEEN ROTATED AND REPOSITION PRN AND REFUSED A MULTIPLE REPOSITIONS, CAMERA ON FOR SAFETY DUE TO EXTREMELY HIGH FALL RISK. PATIENT MOST OF THE TIME ABLE TO DEJON EHER NEEDS KNOWN, INCREASED ABD SIZE AND FIRMNESS WAS RELAYED TO PROVIDER, CALL TO UPDATE AFTER DIALYSIS. PATIENT IS CURRENLTY SITTING ON NC AT 7L SPO2 95 % TITRATRATING DOWN POSSIBLE. PATIENT HAS BEEN EDUCATED ABOUT CHRONIC ILLNESS, SAFETY, HOURLY ROUNDING, AND PROPER USE OF THE CALL LIGHT. PATIENT AND STAFF HAVE BEEN FOLLOWING PATIENT VERY CLOSLY DUE TO INCREASED SEVERITY FROM PREVIOUS DAY. WILL CONTINUE TO MONITOR AT UNTIL SHIFT CHANGE
--- NOTE | 2021-12-30 18:03 | NUR ---
END OF SHIFT: ONLY CHANGES FROM ASSUMPTION OF CARE NOTE IS A DECREASE IN OXYGEN DEMAND ESPECAILY AFTER DIALYSIS TO WHICH THEY REMOVED 3.5L. PATIENT DENIES CHEST PAIN, ABD IS VERY SLIGHTLY SOFTER. BLOOD PRESSURE HAS BEEN WITHIN PATIENTS TYPICAL LIMIT. BLOOD GLUCOSE IS UNDER VERY BETTER CONTROL OF THAN THIS AM. NO FURTHER CONCERNS AT THIS TIME. MENTATION HAS IMPROVED THROUGH THE DAY, NO NARCOTICS GIVEN BY THIS RN. PATIENT STILL ON CAMERA WILL CONTINUE TO MONITOR UNTIL SHIFT CHANGE.
--- NOTE | 2021-12-31 06:47 | NUR ---
SHIFT SUMMARY: ASSUMED PT CARE FROM SAVAGE AGUERO RN IN ON NOC SHIFT. NO ACUTE CAHNGES NOTED DURING SHIFT. WEARING CPAP DURING SLEEP WITH O2 SATS > 90%. MEDICATED FOR PAIN WITH PO MEDS X 1, SEE EMAR. TAKES PILLS WHOLE IN APPLESAUCE WITHOUT DIFFICULTY. CALL LIGHT IN REACH.
--- NOTE | 2021-12-31 07:15 | NUR ---
ASSUMED CARE: ASSUMED CARE OF PATIENT, SHE IS RESTING WITH HER EYES CLOSED IN THE RECLINER. OXYGEN SATURATIONS ABOVE 90% ON 5L VIA NC. CALL LIGHT IN REACH.
--- NOTE | 2021-12-31 08:50 | NUR ---
INITIAL ASSESSMENT: PATIENT IS STILL SITTING UP IN THE RECLINER. SHE IS DROWSY BUT ORIENTED. SHE IS JUST FINISHING UP HER BREAKFAST. SHE REPORTS PAIN IN HER HEAD AND FEET, SHE STATES SHE WILL WAIT UNTIL AFTER DIALYSIS TO TAKE A PAIN PILL. VSS. HRR. LS DIM IN THE BASES, BIOX 99% ON 5L VIA NC, OXYGEN TITRATED DOWN TO 4L VIA NC. BT+, PT HAD BM LAST HS. PPP. SHE HAS MEPILEX DRESSINGS TO BILAT HEELS. 2+ PITTING EDEMA IN HER BLE. PT TAKEN DOWN TO DIALYSIS VIA RECLINER.
--- NOTE | 2021-12-31 18:03 | NUR ---
END OF SIHFT: NEURO: NITA IS ALERT, MENTAION STILL WAXING AND WANING AT TIMES, MORE ALERT AND MEANINGFUL CONVERSATIONS TODAY, ENDORSES SOME NUMBNESS/ TINGLING BUT BETTER WITH GABAPENTIN. PAIN CONTROLLED PER EMAR. PULM: NITA HAS BEEN NOT NEEDING MUCH O2, SPO2 CURRNELTY AT 97% ON 2.5-3L IMPROVED AFTER DIALYSIS. DENIES SOB AT REST. DESATURATES WITH NO O2, INCREASED WILLINGNESS TO WEAR CPAP, MYSELF AND SENIOR PROGRAM MANAGER EDUCATED ON IMPORTANCE. CARDIAC: DENIES CHEST PAIN/SOB, OR SOB AT REST. PATIENT HAS BEEN HER NORMAL RANGE OF BLOOD PRESSURE, <150 SYSTOLIC. PATIENT PULSE UNDER 100. DECREASED EDEMA DUE TO INCREASED FREQUENCY OF DIALYSIS. STILL EDEMATOUS IN ABD AND BLE GI/: PATIENT BLOATING DECREASED. PURWIK IN PLACE DECREASED CONCERNS FROM THIS MORNING. 2.6L OFF IN DIALYSIS. PATIENT CBG HAS IMPROVED. WILL CONTINUE UNTIL SHIFT CHANGE.
--- NOTE | 2022-01-01 00:49 | NUR ---
CARE ASSUMPTION: PATIENT IN RECLINER, REFUSED MOVE TO BED FOR CLEANING UP. VSS, INCREASED O2 NEEDS FROM DAY SHIFT. MENTATION CLARITY WAXES AND WANES, BUT ALERT AND CONVERSES. EXCORIATIONS AND OOZING WOUND IN GLUTE FOLDS AND AROUND RECTUM NOTED WHEN TURNING PATIENT - CLEANED AND TREATED EXCORIATIONS WITH BARRIER CREAM. PUREWICK REPLACED PER PROTOCOL AT 2330. PATIENT'S SKIN HOT AND CLAMMY AT 2330 - ORAL TEMP 98.8*. CALL LIGHT IN REACH.
[2022-01-01 04:32] LABS: Hematocrit 24.4 % (33.0-51.0); Hemoglobin 7.7 g/dL (11.5-16.0); Mean Corpuscular HGB 31.4 pg (26.0-34.0); Mean Corpuscular HGB Conc 31.6 g/dL (31.5-36.5); Mean Corpuscular Volume 100 fL (80-100); Mean Platelet Volume 9.4 fL (9.1-12.4); Platelet Count 471 K/mm3 (150-400); RDW Coefficient Variation 14.6 % (11.7-14.2); RDW Standard Deviation 53.7 fL (35.1-46.3); Red Blood Cell Count 2.45 M/mm3 (3.80-5.20); White Blood Cell Count 9.79 K/mm3 (4.00-11.30)
[2022-01-01 04:54] LABS: Albumin, Blood 2.1 g/dL (3.4-5.0); Anion Gap 6 mmol/L (6-16); Blood Urea Nitrogen 81 mg/dL (8-24); Bun/Creatinine Ratio 28.8 (12.0-20.0); CO2, Blood 32 mmol/L (21-32); Calcium, Blood 8.7 mg/dL (8.5-10.1); Chloride, Blood 102 mmol/L (98-108); Creatinine, Blood 2.81 mg/dL (0.40-1.00); Glomerular Filtration Rate 20 (60-); Glucose, Blood 189 mg/dL (70-99); Magnesium, Blood 2.2 mg/dL (1.6-2.4); Phosphorus, Blood 2.8 mg/dL (2.5-4.9); Potassium, Blood 4.8 mmol/L (3.5-5.5); Sodium, Blood 140 mmol/L (136-145)
--- NOTE | 2022-01-01 05:06 | NUR ---
SHIFT SUMMARY: PATIENT VSS, A&0 X2-3, BECAME LETHARGIC LATE IN SHIFT - PLACED CPAP WHILE PATIENT SLEPT. PATIENT O2 DEMANDS INCREASED FROM DAY SHIFT - CPAP HAS 7L BLEED. DENIES CHEST PAIN OR SOB. PUREWICK IN PLACE TO SUCTION. NO ADVERSE EVENTS THIS SHIFT. MEDICATED PER EMAR. CALL LIGHT IN REACH. WILL CONTINUE TO MONITOR UNTIL REPORT TO DAY RN.
--- NOTE | 2022-01-01 17:01 | NUR ---
SHIFT SUMMARY- PT IS ALERT, PLESANT AND COOPERATIVE. SHE IS EATING AND DRINKING WELL. HER BLOOD SUGARS HAVE BEEN ELEVATED THIS SHIFT AND HAVE REQUIRED COVERAGE. SHE WENT TO DIALYSIS THIS SHIFT. SHE IS RECIEVING PAIN MEDICATIONS NEEDED. SHE WORKED WITH PT AND OT THIS SHIFT. SHE RECIEVED A BED BATH. HER O2 SATURATIONS DROPPED AT ONE POINT AND REQUIRED HER TO GO ONTO HER CPAP. SHE IS IN THE RECLINER AT THIS TIME WITH HER CALL LIGHT IS WITHIN REACH.
[2022-01-02 04:33] LABS: Hematocrit 25.4 % (33.0-51.0); Hemoglobin 7.8 g/dL (11.5-16.0)
--- NOTE | 2022-01-02 04:54 | NUR ---
SHIFT SUMMARY: PATIENT VSS ON 5-7L NC OR BIPAP WITH 5-7L BLEED. PATIENT MOVED TO [facility] BED TO ASSIST IN HEALING COCCYX/RECTUM WOUND. PATIENT HAD BRIEF TACHYPNEIC EPISODES THAT RESOLVED WITH REPOSITIONING. PATIENT BELIEVES SHE IS GOING HOME TODAY. PATIENT'S CBGS >350 - DR. GASTON NOTIFIED AND RECEIVED NEW ORDERS. PATIENT SLEPT WITH BIPAP IN PLACE. MEDICATED PER EMAR. BED LOW WITH ALARM SET AND CALL LIGHT IN REACH. WILL CONTINUE TO MONITOR UNTIL DAY SHIFT REPORT.
[2022-01-02 04:58] LABS: Albumin, Blood 2.2 g/dL (3.4-5.0); Anion Gap 5 mmol/L (6-16); Blood Urea Nitrogen 76 mg/dL (8-24); Bun/Creatinine Ratio 31.8 (12.0-20.0); CO2, Blood 32 mmol/L (21-32); Calcium, Blood 8.7 mg/dL (8.5-10.1); Chloride, Blood 101 mmol/L (98-108); Creatinine, Blood 2.39 mg/dL (0.40-1.00); Glomerular Filtration Rate 25 (60-); Glucose, Blood 317 mg/dL (70-99); Magnesium, Blood 1.8 mg/dL (1.6-2.4); Phosphorus, Blood 2.5 mg/dL (2.5-4.9); Potassium, Blood 4.8 mmol/L (3.5-5.5); Sodium, Blood 138 mmol/L (136-145)
--- NOTE | 2022-01-02 16:25 | NUR ---
NO ACUTE CHANGES AT THIS TIME. PT IN BED TODAY AND HAS BEEN TURNED EVERY COUPLE HOURS. NO DISTRESS NOTED AND COOPERATIVE OF CARE. CALL LIGHT IS WITHIN REACH WILL CONTINE TO MONITOR.
[2022-01-03 02:55] LABS: Hematocrit 23.5 % (33.0-51.0); Hemoglobin 7.6 g/dL (11.5-16.0)
[2022-01-03 03:14] LABS: Albumin, Blood 2.3 g/dL (3.4-5.0); Anion Gap 7 mmol/L (6-16); Blood Urea Nitrogen 101 mg/dL (8-24); Bun/Creatinine Ratio 32.3 (12.0-20.0); CO2, Blood 31 mmol/L (21-32); Calcium, Blood 9.3 mg/dL (8.5-10.1); Chloride, Blood 101 mmol/L (98-108); Creatinine, Blood 3.13 mg/dL (0.40-1.00); Glomerular Filtration Rate 18 (60-); Glucose, Blood 131 mg/dL (70-99); Magnesium, Blood 2.3 mg/dL (1.6-2.4); Phosphorus, Blood 2.9 mg/dL (2.5-4.9); Potassium, Blood 5.4 mmol/L (3.5-5.5); Sodium, Blood 139 mmol/L (136-145)
--- NOTE | 2022-01-03 05:18 | NUR ---
SHIFT SUMMARY PT IS A&OX4 BUT HAS BEEN DROWSY TONIGHT. AT THE BEGINING OF THE SHIFT THE PT WAS ON 5L NC AND WHEN SHE STARTED TO FALL ASLEEP SHE DESATURATED TO THE 80'S AND WAS PLACED ON HER CPAP WHERE HER SPO2 HAS REMAINED >90%. PT HAS NO REPORTS OF ANGINA, SOB, OR CHEST PRESSURE. SHE DID C/O PAIN IN HER HEELS AND ASKED FOR HER PAIN MEDICATION. PT WAS ABLE TO FALL ASLEEP AFTER BEING MEDICATED. SHE HAS BEEN BEDREST W/ Q2 TURNS IN THE BED. SHE HAS A PURWICK IN PLACE THAT WAS CHANGED THIS AM AT ABOUT 0500. THE MEPILEX ON HER BOTTOM WAS CHANGED, AND BARRIER CREAM WAS APPLIED TO HER BOTTOM. SHE IS CURRENTLY ON 6L NC W/ SP02 >93% AND IS UP WATCHING TV IN HER ROOM. CALL LIGHT IN REACH, BED IN LOW, THREE SIDE RAILS UP, AND BED ALARM IS ON. WILL CONTINUE TO MONITOR UNTIL REPORT IS GIVEN TO THE ONCOMING SHIFT RN. SEE NOTES FOR ANY UPDATES.
--- NOTE | 2022-01-03 10:56 | NUR ---
ASSUMED CARE OF PT AT 0700. SOME MORNING MEDICATIONS HELD BY REQUEST OF HD NURSE DAVID. WILL GIVE MEDICATIONS WHEN PT RETURNS FROM HD. PT TO HD IN RECLINER CHAIR AT APROX 0905 THIS AM.
--- NOTE | 2022-01-03 17:47 | NUR ---
ASSUMED CARE OF PT AT 0700 TODAY. NO CHANGES IN PT'S CONDITION T/O THE SHIFT, NO ACUTE EVENTS. PT HAD DIALYSIS TODAY AND TOLERATED WELL. WORKED WITH PT/OT. SEE DOCUMENTED VS AND ASSESSMENT. PT ABLE TO USE CALL LIGHT FOR NEEDS, CALL LIGHT IN REACH, WILL CONTINUE TO MONITOR AND GIVE REPORT TO NOC SHIFT RN.
--- NOTE | 2022-01-04 05:51 | NUR ---
SHIFT SUMMARY PT IS A&OX4 BUT HAS ISSUES RECALLING THE DATE. SHE HAS BEEN MORE AWAKE AND ALERT TONIGHT COMPARED TO LAST NIGHT. SHE WAS UP IN THE CHAIR AT THE BEGINING OF THE SHIFT AND WAS TX'D BACK TO BED VIA LIFT. SHE HAD HER HEEL DRESSINGS CHANGED TODAY AND WOUND CARE DONE PER INSTRUCTIONS IN THE CHART. SHE SLEPT THROUGH HER DRESSING CHANGE AFTER BEING MEDICATED FOR 9/10 PAIN IN HER RIGHT HEEL. SHE HAS NOT REPORTED ANY ANGINA, NAUSEA, CHEST PAIN, OR SOB TONIGHT.VS HAVE BEEN STABLE, AND SHE HAS BEEN RESTING MOST OF THE NIGHT. SHE HAD 300 FOR PO INTAKE AND 1 UNMEASURABLE INC VOID. CURRENTLY THE PT IS ON 3L NC W/ SPO2 >93%. WILL CONTINUE TO MONITOR UNTIL SHIFT REPORT IS GIVEN TO THE ONCOMING SHIFT RN. SEE NOTES FOR ANY UPDATES.
--- NOTE | 2022-01-04 07:45 | NUR ---
PT'S FSBS NOTED TO BE 39. PT EASILY AWAKENED AND GIVEN HER BREAKFAST. PT AWAKE, ALERT AND EATING. LABS DRAWN BY HD RN THROUGH HD CATH W/O DIFFICULTY. WILL RECEHCK FSBS SHORTLY AND REASSESS.
--- NOTE | 2022-01-04 07:45 | NUR ---
ENVELOPE SEALING MACHINE OPERATOR IN TO DRAW LABS FROM HD CATH AT REQUEST OF BEDSIDE RN AND LAB AND WITH APPROVAL FROM .
[2022-01-04 07:59] LABS: Hematocrit 24.3 % (33.0-51.0); Hemoglobin 7.6 g/dL (11.5-16.0)
[2022-01-04 08:24] LABS: Magnesium, Blood 2.1 mg/dL (1.6-2.4)
[2022-01-04 08:27] LABS: Albumin, Blood 2.2 g/dL (3.4-5.0); Anion Gap 3 mmol/L (6-16); Blood Urea Nitrogen 81 mg/dL (8-24); Bun/Creatinine Ratio 31.2 (12.0-20.0); CO2, Blood 36 mmol/L (21-32); Calcium, Blood 8.9 mg/dL (8.5-10.1); Chloride, Blood 104 mmol/L (98-108); Glomerular Filtration Rate 22 (60-); Glucose, Blood 45 mg/dL (70-99); Phosphorus, Blood 2.5 mg/dL (2.5-4.9); Potassium, Blood 4.8 mmol/L (3.5-5.5); Sodium, Blood 143 mmol/L (136-145)
--- NOTE | 2022-01-04 18:09 | NUR ---
NO ACUTE EVENTS T/O SHIFT, NO CHANGES TO PT'S OVERALL CONDITION. LOW BP THIS AM, SOME BP MEDS HELD PER PARAMETERS. PT SLEPT WITH BIPAP ON FOR PART OF THE AM AND THEN HAS BEEN ON NC WITHOUT ANY ISSUES. BED BATH COMPLETED TODAY. HD PLANNED FOR TOMORROW. PT IS ABLE TO USE CALL LIGHT FOR NEEDS, CALL LIGHT IN REACH, WILL CONTINUE TO MONITOR AND GIVE REPORT TO ONCOMING CATRACHITO RN.
--- NOTE | 2022-01-05 00:08 | NUR ---
BLOOD SUGARS AT THE BEGINING OF THE SHIFT PT'S BLOOD SUGAR WAS CHECKED AT 1914 AND IT WAS 71. ICE CEAM WAS GIVEN AND IT WAS RECHECKED 15 MINS AFTER. NEXT BLOOD SUGAR WAS 79 AND PEANUT BUTTER, CRACKERS, AND MILK GIVEN. 15 MINS LATER BLOOD SUGAR WAS TAKEN AND IT WAS 116. 2100 BLOOD SUGAR WAS 139. WILL CONTINUE TO MONITOR, AND RECHECK BLOOD SUGAR AT 0130. SEE NOTES FOR ANY UPDATES.
--- NOTE | 2022-01-05 06:27 | NUR ---
SHIFT SUMMARY PT IS A&O BUT HAS BEEN DROWSY THIS EVENING. SHE HAS BEEN ON 5-6L NC ON BIPAP T/O THE NIGHT W/ SPO2 >90%. SHE STARTED TO C/O PAIN IN HER STOMACH AND HEELS AROUND 2100 AND WAS MEDICATED PER EMAR AND WAS ABLE OT SLEEP AFTER. SHE HAS HAD TWO INC EPISODES THIS EVENING AND HER MEPILEX WAS CHANGED ON HER BOTTOM. SHE HAS BEEN CALLING APPROPRIATLY AND HAS HER BED IN A LOW POSITION W/ 3 SIDE RAILS UP. SHE IS W/O SOB, ANGINA, DYSPNEA, AND NAUSEA. WILL CONTINUE TO MONITOR UNTIL SHIFT REPORT IS GIVEN TO THE ONCOMING SHIFT RN. SEE NOTES FOR ANY UPDATES.
--- NOTE | 2022-01-05 10:31 | NUR ---
ASSUMED CARE OF PT AT 0700. SOME MEDICATIONS DELAYED UNTIL AFTER HD COMPLETED TODAY PER HD RN REQUEST.
--- NOTE | 2022-01-05 18:17 | NUR ---
ASSUMED CARE OF PT AT 0700. NO ACUTE EVENTS T/O THE SHIFT. PT TO HD TODAY, TOLERATED WELL, 300ML FLUID REMOVED PER DECEMBRE RN. PT ABLE TO HAVE A LARGE BOWEL MOVEMENT TODAY. BILATERAL HEEL DRESSINGS AND COCCYX MEPLEX CHANGED TODAY. NO OTHER CHANGES TO PT CONDITION. PT ABLE TO USE CALL LIGHT FOR NEEDS, CALL LIGHT IN REACH, WILL CONTINUE TO MONITOR AND GIVE REPORT TO NOC SHIFT RN.
--- NOTE | 2022-01-06 06:06 | NUR ---
SHIFT SUMMARY PT IS A&O, BETWEEN 5L NC AND CPAP W/ 3L BLEED THROUGH W/ SP02 >90%, HAS C/O PAIN IN HER LEGS/HEELS TONIGHT, AND SHE DENIES ANGINA/SOB/NAUSEA. PT'S HS CBG WAS 79 SO SHE WAS GIVEN SOME ICE CREAM, AND HER NEXT CBG WAS 82. SHE WAS THEN GIVEN PEANUT BUTTER, CRACKERS, AND MILK; THE NEXT CGB WAS 118. SHE WAS GIVEN HER INSULIN GLARGINE, AND HER 0130 CBG WAS 158. PT HAS HAD NO ACUTE CHANGES IN CONDITION, AND IS RESTING IN BED. BED IN LOW, THREE SIDE RAILS UP, AND CALL LIGHT IN REACH. SEE NOTES FOR ANY UPDATES.
[2022-01-06 09:18] LABS: BASOPHILS ABSOLUTE AUTO 0.06 K/mm3 (0.00-0.23); BASOPHILS PERCENT AUTO 1 % (0-2); EOSINOPHILS ABSOLUTE AUTO 0.59 K/mm3 (0.00-0.68); EOSINOPHILS PERCENT AUTO 7 % (0-6); Hematocrit 26.4 % (33.0-51.0); Hemoglobin 8.2 g/dL (11.5-16.0); IMMATURE GRAN ABSOLUTE AUTO 0.03 K/mm3 (0.00-0.10); IMMATURE GRAN PERCENT AUTO 0 % (0-1); LYMPHOCYTES ABSOLUTE AUTO 0.67 K/mm3 (0.84-5.20); LYMPHOCYTES PERCENT AUTO 8 % (21-46); MONOCYTES ABSOLUTE AUTO 1.06 K/mm3 (0.16-1.47); MONOCYTES PERCENT AUTO 12 % (4-13); Mean Corpuscular HGB 31.4 pg (26.0-34.0); Mean Corpuscular HGB Conc 31.1 g/dL (31.5-36.5); Mean Corpuscular Volume 101 fL (80-100); Mean Platelet Volume 9.9 fL (9.1-12.4); NEUTROPHILS ABSOLUTE AUTO 6.15 K/mm3 (1.96-9.15); NEUTROPHILS PERCENT AUTO 72 % (41-73); Platelet Count 561 K/mm3 (150-400); RDW Coefficient Variation 14.4 % (11.7-14.2); RDW Standard Deviation 53.3 fL (35.1-46.3); Red Blood Cell Count 2.61 M/mm3 (3.80-5.20); White Blood Cell Count 8.56 K/mm3 (4.00-11.30)
[2022-01-06 09:47] LABS: Albumin, Blood 2.3 g/dL (3.4-5.0); Anion Gap 8 mmol/L (6-16); Blood Urea Nitrogen 91 mg/dL (8-24); Bun/Creatinine Ratio 32.6 (12.0-20.0); CO2, Blood 33 mmol/L (21-32); Calcium, Blood 9.1 mg/dL (8.5-10.1); Chloride, Blood 99 mmol/L (98-108); Creatinine, Blood 2.79 mg/dL (0.40-1.00); Glomerular Filtration Rate 21 (60-); Glucose, Blood 220 mg/dL (70-99); Magnesium, Blood 2.6 mg/dL (1.6-2.4); Phosphorus, Blood 3.2 mg/dL (2.5-4.9); Potassium, Blood 5.3 mmol/L (3.5-5.5); Sodium, Blood 140 mmol/L (136-145)
--- NOTE | 2022-01-06 17:17 | NUR ---
SHIFT SUMMARY NO ACUTE CHANGES THIS SHIFT. PT IS A/O X4; PLEASANT AND COOPERATIVE WITH CARE. WOUND CARE COMPLETED THIS SHIFT. PT ON 5-7 LITERS O2 VIA NC IN ORDER TO MAINTAIN SATS >90%. GUARDIANSHIP PAPERS GIVEN TO PATIENT THIS SHIFT. VSS.
--- NOTE | 2022-01-07 06:35 | NUR ---
NOC SHIFT SUMMARY PT SLEPT WELL OVERNIGHT. ORIENTED X4, SOMETIMES FORGETFUL AND REPEATS QUESTIONS. ON CPAP W/5L BLEED IN. VSS. Q2 TURN. WEEPING NOTED IN RLE, HD CATH TO R CHEST. WILL PASS ON TO DAY RN
[2022-01-07 09:22] LABS: Hematocrit 26.3 % (33.0-51.0)
[2022-01-07 09:40] LABS: Albumin, Blood 2.5 g/dL (3.4-5.0); Anion Gap 8 mmol/L (6-16); Blood Urea Nitrogen 121 mg/dL (8-24); Bun/Creatinine Ratio 33.9 (12.0-20.0); CO2, Blood 31 mmol/L (21-32); Calcium, Blood 9.5 mg/dL (8.5-10.1); Chloride, Blood 100 mmol/L (98-108); Creatinine, Blood 3.57 mg/dL (0.40-1.00); Glomerular Filtration Rate 15 (60-); Glucose, Blood 208 mg/dL (70-99); Magnesium, Blood 2.5 mg/dL (1.6-2.4); Phosphorus, Blood 3.7 mg/dL (2.5-4.9); Potassium, Blood 5.4 mmol/L (3.5-5.5); Sodium, Blood 139 mmol/L (136-145)
--- NOTE | 2022-01-07 18:13 | NUR ---
SHIFT SUMMARY PT ALERT, ORIENTED 3, FORGETFUL AT TIMES. PT RESTING IN BED, Q2 TURN. PT REPORTS PAIN TO BLE, MEDICATED X2 WITH NORCO PER ORDERS. PT DENIES CHEST PAIN/PRESSURE, NAUSEA, DIZZINESS AND NUBM/TINGLING. REDNESS, WARMTH AND BUBBLEING NOTED TO AYAD GASCA MD, NO NEW ORDERS AT THIS TIME. HAD DIALYSIS THIS AM. VSS. NO OTHER ACUTE CHANGES NOTED. WILL CONTINUE TO MONITOR.
--- NOTE | 2022-01-08 06:18 | NUR ---
NOC SHIFT SUMMARY PT SLEPT WELL OVERNIGHT. ORIENTED X4, SOMETIMES FORGETFUL AND REPEATS QUESTIONS. EXPRESSES WANTING TO GO HOME. ON CPAP W/5L BLEED IN. VSS. Q2 TURN. INCREASED EDEMA NOTED IN RLE, HD CATH TO R CHEST. WILL PASS ON TO DAY RN
[2022-01-08 08:49] LABS: Hematocrit 28.6 % (33.0-51.0); Hemoglobin 8.6 g/dL (11.5-16.0)
[2022-01-08 09:04] LABS: Albumin, Blood 2.8 g/dL (3.4-5.0); Anion Gap 6 mmol/L (6-16); Blood Urea Nitrogen 90 mg/dL (8-24); Bun/Creatinine Ratio 31.7 (12.0-20.0); CO2, Blood 33 mmol/L (21-32); Calcium, Blood 9.4 mg/dL (8.5-10.1); Chloride, Blood 102 mmol/L (98-108); Creatinine, Blood 2.84 mg/dL (0.40-1.00); Glomerular Filtration Rate 20 (60-); Glucose, Blood 152 mg/dL (70-99); Magnesium, Blood 2.4 mg/dL (1.6-2.4); Phosphorus, Blood 3.2 mg/dL (2.5-4.9); Sodium, Blood 141 mmol/L (136-145)
--- NOTE | 2022-01-08 15:37 | NUR ---
Spiritual Care Visit. Pt. is somnilent but responds when I enter the room. Pt. welcomes me and rapport is re-established with Pt. Pt. displays evidence of trust and engagement. Pt. remains in a focused conversation for some time, and displays evidence of engagement. Consider issues of helen and beleif, and Pt. verbalizes the need for spiritual connection for her daughter. Pt. became somnient, and this viscera washer prayed for her before I quietly excused myself.
--- NOTE | 2022-01-08 17:35 | NUR ---
SHIFT SUMMARY PT ALERT, ORIENTED x3-4, CALM AND COOPERATIVE WITH CARE. PT UP IN CHAIR VIA SLING. PT REPORTS PAIN TO BLE, MEDCIATED X2 WITH NORCO PER ORDERS. PT SOB WITH ACTIVITY, SPO2 >90% ON 5L O2 VIA NC. PT HAS RED RASH DEVELOPING ON RLE, MD AWARE. OTHER VSS. NO OTHER ACUTE CHANGES NOTED. WILL CONTINUE TO MONITOR.
--- NOTE | 2022-01-09 05:14 | NUR ---
SHIFT SUMMARY: NO ACUTE CHANGES OVER NIGHT. PT REMAINED ALERT AND ORIENTED X4 THROUGHOUT SHIFT, AFEBRILE, BP AND HR STABLE, CURRENTLY ON 3L NC SATING >95%. PT SLEPT ON AND OFF A MAJORITY OF THIS SHIFT. NO COMPLAINTS OF PAIN. CURRENTLY LYING IN BED, WATCHING TV. BED ALARM ON, WILL REPORT TO ONCOMING RN.
[2022-01-09 14:25] LABS: Hematocrit 23.9 % (33.0-51.0); Hemoglobin 7.6 g/dL (11.5-16.0)
[2022-01-09 14:44] LABS: Albumin, Blood 2.4 g/dL (3.4-5.0); Anion Gap 5 mmol/L (6-16); Blood Urea Nitrogen 75 mg/dL (8-24); Bun/Creatinine Ratio 25.3 (12.0-20.0); CO2, Blood 33 mmol/L (21-32); Calcium, Blood 9.3 mg/dL (8.5-10.1); Chloride, Blood 101 mmol/L (98-108); Creatinine, Blood 2.96 mg/dL (0.40-1.00); Glomerular Filtration Rate 19 (60-); Glucose, Blood 92 mg/dL (70-99); Magnesium, Blood 2.2 mg/dL (1.6-2.4); Phosphorus, Blood 2.9 mg/dL (2.5-4.9); Potassium, Blood 4.6 mmol/L (3.5-5.5); Sodium, Blood 139 mmol/L (136-145)
--- NOTE | 2022-01-09 17:46 | NUR ---
NO ACUTE EVENTS T/O THE SHIFT. PT TOLERATED HD WELL TODAY AND WAS COMPLIANT WITH HER FLUID RESTRICTION. NO CHANGES NOTED IN PT CONDITION. USES CALL LIGHT FOR NEEDS. CALL LIGHT IN REACH, WILL CONTINUE TO MONITOR AND GIVE REPORT TO NOC SHIFT RN.
--- NOTE | 2022-01-09 21:18 | NUR ---
ASSUMPTION OF CARE THIS RN ASSUMED CARE OF PATIENT AT 1900. REPORT TAKEN FROM ELEUTERIO BERRY. PATIENT IN BED WATCHING TV AT TIME OF REPORT. PATIENT REPOSITIONED, GOWN CHANGED, POWDER APPLIED TO ABD/THIGH FOLDS, NEW MEPIPLEX ON COCCYX, MEDICATED PER EMAR AROUND 2100. BILATERAL HEELS FLOATED IN BED. PATIENT CONTINUES TO BE AWAKE AND WATCHING TV. CALM AND COOPERATIVE WITH CARE. PATIENT ON 4L NC WITH O2 SATS >94%. BP STABLE. AFEBRILE. MEDICATING PER EMAR FOR PAIN. CALL LIGHT WITHIN REACH AND BED IN LOWEST POSITION. THIS RN WILL REVIEW CHART AND CONTINUE TO PROVIDE INTERVENTIONS PER ORDERS AND NEEDED.
[2022-01-10 03:46] LABS: Hematocrit 24.6 % (33.0-51.0); Hemoglobin 7.5 g/dL (11.5-16.0)
--- NOTE | 2022-01-10 04:11 | NUR ---
SHIFT SUMMARY PATIENT ALERT AND ORIENTED FULLY WITH OCCASIONAL FORGETFULNESS AND INABILITY TO FIND WORD FOR CONVERSATION. PATIENT HAS BEEN DIAPHORETIC DURING THIS SHIFT; VITALS STABLE. CONTINUOUS O2 MONITORING. CPAP WORN FROM 2300 TO 0400 WITH 3L BLEED IN. PATIENT BACK ON 4L VIA NC WITH O2 SATS >94%. DENIES SOB. DUE TO DIAPHORESIS DURING THIS SHIFT THE PATIENT'S GOWN WAS CHANGED TWICE ALONG WITH LINEN. PATIENT AFEBRILE. SKIN CLEANSED AND POWDER APPLIED TO FOLDS. RIGHT HEEL WOUND CARE DONE PER ORDER. BILATERAL HEEL PROTECTORS CHANGED; HEELS FLOATED. REPOSITIONED THROUGHOUT SHIFT; PATIENT TOLERATED WELL. NO EPISODES OF HYPOGLYCEMIA DURING THIS SHIFT. SPOT CHECK DONE AT 0400 PER PATIENT REQUEST WITH GLUCOSE OF 166. MEPIPLEX CHANGED ON COCCYX AND CREAM APPLIED FOR MOISTURE PROTECTION. NO ACUTE CHANGES DURING THIS SHIFT. PATIENT IS CURRENTLY UP IN BED WATCHING TV. CALL LIGHT WITHIN REACH AND BED IN LOWEST POSITION. WILL CONTINUE TO MONITOR UNTIL SHIFT CHANGE AT 0700.
[2022-01-10 04:17] LABS: Albumin, Blood 2.4 g/dL (3.4-5.0); Anion Gap 6 mmol/L (6-16); Blood Urea Nitrogen 99 mg/dL (8-24); Bun/Creatinine Ratio 30.4 (12.0-20.0); CO2, Blood 33 mmol/L (21-32); Calcium, Blood 9.1 mg/dL (8.5-10.1); Chloride, Blood 100 mmol/L (98-108); Creatinine, Blood 3.26 mg/dL (0.40-1.00); Glomerular Filtration Rate 17 (60-); Glucose, Blood 175 mg/dL (70-99); Magnesium, Blood 2.4 mg/dL (1.6-2.4); Phosphorus, Blood 3.5 mg/dL (2.5-4.9); Potassium, Blood 5.2 mmol/L (3.5-5.5); Sodium, Blood 139 mmol/L (136-145)
--- NOTE | 2022-01-10 09:49 | NUR ---
CARE ASSUMPTION / CARB COUNT PT MEDICAL NO TELE STATUS. A&O TO SELF & SURROUNDINGS. PT SLOW TO RESPOND. THIS RN ATTEMPTED TO HAVE PT DO CARB COUNT FOR INSULIN THIS AM PER MD REQUEST. PT UNABLE TO ADEQUATELY SEE NUMBERS EVEN W/ GLASSES IN PLACE. THEN W/ NUMBERS READ ALOUD TO PT, PT UNABLE TO WRITE NUMBERS ON PAPER FOR ADDITION. ATTEMPTED ASSISTING PT W/ BASIC ADDITION, W/ PT UNABLE TO ADD 10+7 & PT INCORRECTLY ADDING 5+3. THIS RN THEN PERFORMED CARB COUNT & INSULIN ADMINISTRATION PER EMAR. VSS. SPO2 > 92% ON 4L NC, THEN W/ PT DESAT WHILE FOCUSING ON MATH ATTEMPT PT WOULD STOP TAKING BREATHS WHILE FOCUSING. PT ENCOURAGED TO TAKE DEEP BREATHS W/ PT NEEDING CONTINUAL REMINDING. PT THEN DESAT TO 70s & CPAP APPLIED. PT REPORTING 8/10 RLE PAIN. PT MEDICATED FOR PAIN PER EMAR/PT REQUEST. UPON REASSESSMENT PT STATING MEDICATION "HELPED A LITTLE" BUT RATES PAIN 2/10.
--- NOTE | 2022-01-10 18:42 | NUR ---
END OF SHIFT NOTE PT CONTINUES IN PCU MEDICAL NO TELE STATUS. A&O TO SELF & SURROUNDINGS BUT DIFFICULTY UNDERSTANDING INFORMATION. PT VSS. SPO2 > 92% ON 4L NC WHILE AWAKE, REQUIRING CPAP FOR SLEEP D/T DESAT IF NOT WEARING. PT TEARFUL INTERMITTENTLY T/O DAY D/T PT REPORT OF PAIN IN R LEG. PT MEDICATED PER EMAR/PT REQUEST X2 TODAY W/ IMPROVEMENT. CBGs MANAGED W/ SSC & CARB COVERAGE ORDERED PER EMAR. MULTIPLE ATTEMPTS OF INSULIN EDUCATION W/ PT THIS SHIFT W/ PT DIFFICULTY UNDERSTANDING & PT STATING "IT'S HARD FOR ME BECAUSE I'VE LOST SOME OF MY NUMBERS." PT UNABLE TO CARB COUNT & UNDERSTAND INSULIN RATIOS DESPITE MULTIPLE ATTEMPTS OF EDUCATION & ASSISTANCE.
--- NOTE | 2022-01-10 19:49 | NUR ---
ASSUMPTION OF CARE THIS RN ASSUMED CARE OF PATIENT AT 1900. REPORT TAKEN FROM TERESITA BERRY. PATIENT ON 4L VIA NC WITH O2 SATS >92%. VITALS STABLE. PATIENT ALERT AND ORIENTED TO SLEF, SURROUNDING, AND FAMILY. PATIENT IS TEARFUL AND UPSET AND STATES THAT SHE "DID NOT GET DINNER AND WE NEED TO GIVE HER ICE CREAM". THIS RN NOTES THAT THE PATIENT HAS PIECES OF FOOD THAT ARE STILL WET ON GOWN/CHEST. PATIENT REPOSITIONED WITH HEELS FLOATED. BILATERAL HEEL DRESSINGS C/D/I; CHANGED TODAY BY RN MANAGER. MEDICATING PER EMAR FOR PAIN.
--- NOTE | 2022-01-11 04:05 | NUR ---
SHIFT SUMMARY PATIENT ALERT AND ORIENTED TO SELF, SURROUNDINGS, AND FAMILY. PATIENT HAS BEEN TEARFUL DURING THE SHIFT AND AGGITATED ABOUT LIMITING SNACKS/FOOD. PATIENT WITH STABLE VITALS. CONTINUES TO REQUIRE 4L VIA NC WHEN AWAKE TO MAINTAIN O2 SATS >92%. PATIENT PUT ONTO CPAP AROUND 2330 AND REMAINS ON CPAP WHILE THIS RN WRITES THIS NOTE. 3L BLEED IN ON CPAP. PATIENT APPEARS TO BE RESTING COMFORTABLY AT THIS TIME. RR <20. POWDER APPLIED TO SKIN FOLDS; PATIENT CONTINUES TO BE DIAPHORETIC. MEPIPLEX C/D/I ON COCCYX. BILATERAL HEEL DRESSINGS C/D/I; WOUND CARE DONE PER ORDER. BILATERAL HEELS FLOATED WITH PILLOWS. PATIENT INCONTINENT THROUGHOUT THIS SHIFT; UNABLE TO ASSIST STAFF WITH TURNING; MAX ASSIST X2. PATIENT MEDICATED PER EMAR FOR PAIN. BED IN LOWEST POSITION AND CALL LIGHT WITHIN REACH. THIS RN WILL CONTINUE TO MONITOR UNTIL SHIFT CHANGE AT 0700.
[2022-01-11 09:38] LABS: Hematocrit 24.1 % (33.0-51.0); Hemoglobin 7.7 g/dL (11.5-16.0)
[2022-01-11 09:54] LABS: Albumin, Blood 2.7 g/dL (3.4-5.0); Anion Gap 7 mmol/L (6-16); Blood Urea Nitrogen 128 mg/dL (8-24); Bun/Creatinine Ratio 31.4 (12.0-20.0); CO2, Blood 30 mmol/L (21-32); Calcium, Blood 9.4 mg/dL (8.5-10.1); Chloride, Blood 98 mmol/L (98-108); Creatinine, Blood 4.07 mg/dL (0.40-1.00); Glomerular Filtration Rate 13 (60-); Glucose, Blood 264 mg/dL (70-99); Magnesium, Blood 2.5 mg/dL (1.6-2.4); Phosphorus, Blood 4.5 mg/dL (2.5-4.9); Potassium, Blood 5.2 mmol/L (3.5-5.5); Sodium, Blood 135 mmol/L (136-145)
--- NOTE | 2022-01-11 12:43 | NUR ---
UPDATE PT HAS 3 MORE SEIZURE LIKE EPISODES. THE FIRST ONE LASTED 30 SECONDS, THEN APPROXIMATELY 45 SECONDS AND THE LAS ONE 1 MINUTE AND 37 SECONDS. PT MEDICATED PER EMAR.
--- NOTE | 2022-01-11 16:45 | NUR ---
SHIFT SUMMARY PT REMAINS AWAKE AND ALERT. ANSWERING QUESTIONS APPROPRIATELY. VS STABLE. WOUND TO RIGHT HEEL CLEANED AND REDRESSED THIS SHIFT. PER DR. MARTINEZ PT CAN BEAR WEIGHT TOLERATED TO RIGHT LEG NOW. PT REPOSITIONED Q2H. PT HAD DIALYSIS THIS SHIFT. PT COMPLAINS OF PAIN TO RIGHT LEG ON AND OFF. PT ATTEMPTED TO DO CARB COUNTING AFTER LUNCH AND WAS UNABLE TO ADD NUMBERS TOGETHER. PT FRUSTRATED ABOUT HAVING DIFFICULTY COUNTING. WILL CONTINUE TO MONITOR AND REPORT TO ONCOMING RN
--- NOTE | 2022-01-11 22:32 | NUR ---
ASSUMPTION OF CARE THIS RN ASSUMED CARE OF PATIENT AT 1900. REPORT TAKEN FROM ALEX BERRY. PATIENT WITH STABLE VITALS. PATIENT ON 4L AT TIME OF SHIFT CHANGE WITH O2 SATS >92%. PATIENT MEDICATED PER EMAR FOR PAIN. PATIENT TEARFUL AND AGGITATED AT START OF SHIFT FOR THIS RN. PATIENT STATED TO THIS RN THAT SHE DID NOT GET DINNER; THIS RN WAS VERBALLY TOLD BY PREVIOUS RN THAT SHE ATE DINNER; THIS RN NOTES THAT THE PATIENT HAS FOOD ON HOSPITAL GOWN. PATIENT REPOSITIONED WITH MAX ASSISTANCE NEEDED BY THIS RN AND AIDE. PERICARE DONE; ABD/LEG FOLDS CLEANSED AND POWDER APPLIED. NEW MEPIPLEX PLACED ON COCCYX. BILATERAL HEEL DRESSINGS C/D/I; HEELS FLOATED WITH PILLOWS. PATIENT PLACED ON CPAP AROUND 2200. BED IN LOWEST POSITION AND CALL LIGHT WITHIN REACH. THIS RN WILL REVIEW CHART AND PROVIDE INTERVENTIONS APPROPRIATE AND ORDERED.
[2022-01-12 03:56] LABS: Hematocrit 24.9 % (33.0-51.0); Hemoglobin 7.5 g/dL (11.5-16.0)
[2022-01-12 04:13] LABS: Albumin, Blood 2.6 g/dL (3.4-5.0); Anion Gap 8 mmol/L (6-16); Blood Urea Nitrogen 101 mg/dL (8-24); Bun/Creatinine Ratio 31.9 (12.0-20.0); CO2, Blood 31 mmol/L (21-32); Calcium, Blood 9.4 mg/dL (8.5-10.1); Chloride, Blood 98 mmol/L (98-108); Creatinine, Blood 3.17 mg/dL (0.40-1.00); Glomerular Filtration Rate 18 (60-); Glucose, Blood 305 mg/dL (70-99); Phosphorus, Blood 3.4 mg/dL (2.5-4.9); Potassium, Blood 5.2 mmol/L (3.5-5.5); Sodium, Blood 137 mmol/L (136-145)
--- NOTE | 2022-01-12 04:33 | NUR ---
SHIFT SUMMARY PATIENT ALERT AND ORIENTED TO SELF AND SURROUNDINGS. PATIENT WITH STABLE VITALS THROUGHOUT THE SHIFT. CONTINUES TO BE DIAPHORETIC. MEDICATED PER EMAR FOR PAIN AND CONSTIPATION. SMALL HARD BM THIS SHIFT. PATIENT CONTINUES TO BE ON 4L VIA NC WHEN AWAKE WITH CPAP WITH 4-6L BLEED IN. PATIENT ON CPAP THE MAJORITY OF THIS SHIFT DUE TO DESATTING INTO THE MID 80'S WHILE ON NC ON 7L. PATIENT'S CPAP BLEED IN ADJUSTED NEEDED TO MAINTAIN O2 SATS >92%. PATIENT'S BILATERAL HEEL DRESSINGS C/D/I; BOTH HEELS FLOATED. PER PREVIOUS DAY SHIFT RN MD MARYJANE JOHNSON STATED THAT THE PATIENT CAN NOW BEAR WEIGHT TOLERATED ON RIGHT LEG AFTER HE INSPECTED THE RIGHT HEEL WOUND; ORDER UPDATED. PATIENT CALLS APPROPRIATELY FOR ASSISTANCE. REPOSITIONED Q2HRS. PATIENT CONTINUES TO BE TEARFUL WITH TROUBLE COMMUNICATING AND FINDING THE WORDS WHILE ANXIOUS. PATIENT APPEARS TO BE RESTING WITH EQUAL CHEST RISE/FALL NOTED. O2 SATS >92% ON CPAP. BED IN LOWEST POSITION AND CALL LIGHT WITHIN REACH. THIS RN WILL CONTINUE TO MONITOR PATIENT UNTIL SHIFT CHANGE AT 1900.
--- NOTE | 2022-01-12 17:29 | NUR ---
SHIFT SUMMARY PT REMAINS ALERT AND ORIENTED. PT AWAKE MOST OF SHIFT. VS STABLE. PT COMPLAINED OF CONSTIPATION AND GAS PAIN MOST OF SHIFT AND THEN HAD VERY LARGE BM THIS EVENINING. PT INCONTINENT OF STOOL. PT HAD VERY LITTLE URINE OUTPUT THIS SHIFT. PT REPOSITIONED Q2H. WILL CONTINUE TO MONITOR AND REPORT TO ONCOMING RN.
[2022-01-13 09:21] LABS: Hemoglobin 8.1 g/dL (11.5-16.0)
--- NOTE | 2022-01-13 09:37 | NUR ---
AM NOTE: PATIENT ALERT AND ORIENTED. OCCASIONALLY FORGETFUL. PERRLA. DENIES NUMB/TINGLING THIS AM. WEIGHT BEARING TOLERATED. PT/OT ORDERS IN PLACE. ON 4L HIGH FLOW NASAL CANNULA SATING LOW-MID 90'S. WEARING CPAP WITH 2L BLEED IN WHEN SLEEPING. LUNGS SOUNDING CLEAR. NO COUGH NOTED. NO TELE. HR 60-70'S. BP ELEVATED. AM MEDS GIVEN. PPP. DIALYSIS AT THIS TIME. DENIES CHEST PAIN/PRESSURE. MOD DISTENTION IN ABD, COMPLAINS OF GAS LIKE PAINS. 2 MOD HARD BOWEL MOVEMENTS THIS AM. BARRIER CREAM APPLIED TO BOTTOM. TOLERATING PO DIET. FR MAINTAINED. CHECKING BLOOD SUGAR PER ORDERS. Q2 TURNS AND NEEDED. CALL LIGHT IN REACH. WILL CONTINUE TO MONITOR.
[2022-01-13 09:45] LABS: Albumin, Blood 2.9 g/dL (3.4-5.0); Anion Gap 11 mmol/L (6-16); Blood Urea Nitrogen 125 mg/dL (8-24); Bun/Creatinine Ratio 31.6 (12.0-20.0); CO2, Blood 27 mmol/L (21-32); Calcium, Blood 9.9 mg/dL (8.5-10.1); Chloride, Blood 96 mmol/L (98-108); Creatinine, Blood 3.96 mg/dL (0.40-1.00); Glomerular Filtration Rate 13 (60-); Glucose, Blood 293 mg/dL (70-99); Magnesium, Blood 2.4 mg/dL (1.6-2.4); Phosphorus, Blood 4.2 mg/dL (2.5-4.9); Sodium, Blood 134 mmol/L (136-145)
--- NOTE | 2022-01-13 18:19 | NUR ---
SHIFT SUMMARY: NO ACUTE CHANGES THROUGHOUT SHIFT. VITAL SIGNS REMAIN STABLE. AC BLOOD SUGARS AND INSULIN GIVEN PER ORDERS. PATIENT UNABLE TO COUNT CORRECT CARBS AND NEEDING HELP. REMAINS ON 4L HIGH FLOW NASAL CANNULA. CPAP ON STANBY. NO TELE. BP SLIGHTLY ELEVATED THIS EVENING. PO HYDRALAZINE GIVEN PER ORDERS. MUTLIPLE SMALL BM'S TODAY. PT/OT IN TO WORK WITH PATIENT. WOUND CARE DONE PER ORDERS. SITTING IN RECLINER AT THIS TIME WATCHING TV. DENIES NEEDS. FR MAINTAINED
--- NOTE | 2022-01-14 06:14 | NUR ---
SHIFT SUMMARY NO ACUTE EVENTS THIS SHIFT. PT ALERT AND ORIENTED X3. BP STABLE. AFEBRILE. PULSE 50-80'S. ON 4L NC SATS OVER 94%. ON CPAP WHILE ASLEEP, 2L BLEED IN. C/O R FOOT PAIN, MEDICATED PER EMAR. HEADACHE RELIEVED WITH TYLENOL. REMAINED IN CHAIR T/O THE NIGHT W/ POSITION CHANGES. BLOOD SUGARS OVER 100. SEEN BY LEONEL THIS AM. PT TO GO TO DIALYSIS AGAIN TODAY. IN CHAIR RESTING WITH CALL ALARM AT SIDE, WILL CONTINUE TO MONITOR UNTIL REPORT GIVEN TO ONCOMING RN
[2022-01-14 08:17] LABS: Albumin, Blood 2.4 g/dL (3.4-5.0); Anion Gap 12 mmol/L (6-16); Blood Urea Nitrogen 96 mg/dL (8-24); Bun/Creatinine Ratio 30.6 (12.0-20.0); CO2, Blood 32 mmol/L (21-32); Calcium, Blood 8.4 mg/dL (8.5-10.1); Chloride, Blood 96 mmol/L (98-108); Creatinine, Blood 3.14 mg/dL (0.40-1.00); Glomerular Filtration Rate 18 (60-); Glucose, Blood 60 mg/dL (70-99); Magnesium, Blood 2.5 mg/dL (1.6-2.4); Phosphorus, Blood 3.2 mg/dL (2.5-4.9); Potassium, Blood 4.7 mmol/L (3.5-5.5); Sodium, Blood 140 mmol/L (136-145)
[2022-01-14 11:18] LABS: Hematocrit 25.2 % (33.0-51.0); Hemoglobin 7.9 g/dL (11.5-16.0)
--- NOTE | 2022-01-14 15:21 | NUR ---
Spiritual Care Visit. Pt. is awake in bed and welcomes my visit. Pt. is pleasant, and engages in updating her newest prognosis. Pt. verbalizes ecitement about getting back on her feet, as well as her new diet restrictions. Pt. displays evidence of being committed to making life choices that will aid her recovery and health. Establish rapport. Prayedwith Pt. Pt. verbalized gratitude for the spiritual care she has recieved.
--- NOTE | 2022-01-14 17:44 | NUR ---
NO ACUTE CHANGES IN PT'S CONDITION TODAY. TOLERATED HD WELL, 3.1 L REMOVED PER HD RN REPORT. PT VISITED BY HER GUARDIAN TO DISCUSS LEGAL PROCEEDINGS TOMORROW. VSS. R L WITH 3+ PITTING EDEMA, PT REPORTING PAINFUL, GIVEN NORCO PER EMAR AND WRAPPED IN CHRISTINE WRAP FOR GENTLE COMPRESSION. PT STATES PAIN IS IMPROVED. PT HAS BEEN ALERT AND ORIENTED T/O THE SHIFT, USES CALL LIGHT FOR NEEDS, NO ACUTE EVENTS. CALL LIGHT IN REACH AT THIS TIME, WILL CONTINUE TO MONITOR AND GIVE REPORT TO NOC SHIFT RN.
--- NOTE | 2022-01-15 05:31 | NUR ---
SHIFT SUMMARY NO ACUTE EVENTS THIS SHIFT. PT ALERT AND ORIENTED X4. AFEBRILE. PULSE 60-70'S. BP STABLE. ON 1L NC SATS OVER 96%. ON BIPAP FOR ONLY 2 HOURS TONIGHT WHILE SLEEPING. REMAINS IN BED THROUGHOUT THE NIGHT. Q2 TURNS. 300ML OF INTAKE THIS EVENING. 8/10 FOOT PAIN MEDICATED PER EMAR. SLEEPING WITH CALL ALARM AT SIDE, WILL CONTINUE TO MONITOR UNTIL REPORT GIVEN TO ONCOMING RN
--- NOTE | 2022-01-15 09:18 | NUR ---
AM NOTE PER PT REQUEST AND REPORT OF NAUSEA, SOME OF 0900 MEDICATIONS WERE DELAYED BEING ADMINISTERED PRIOR TO DIALYSIS. PT NOW IN DIALYSIS.
[2022-01-15 09:34] LABS: Hemoglobin 7.6 g/dL (11.5-16.0)
[2022-01-15 10:01] LABS: Albumin, Blood 2.5 g/dL (3.4-5.0); Anion Gap 13 mmol/L (6-16); Blood Urea Nitrogen 69 mg/dL (8-24); Bun/Creatinine Ratio 25.8 (12.0-20.0); CO2, Blood 32 mmol/L (21-32); Calcium, Blood 8.9 mg/dL (8.5-10.1); Chloride, Blood 96 mmol/L (98-108); Creatinine, Blood 2.67 mg/dL (0.40-1.00); Glomerular Filtration Rate 22 (60-); Glucose, Blood 239 mg/dL (70-99); Magnesium, Blood 2.5 mg/dL (1.6-2.4); Phosphorus, Blood 2.5 mg/dL (2.5-4.9); Potassium, Blood 4.3 mmol/L (3.5-5.5); Sodium, Blood 141 mmol/L (136-145)
--- NOTE | 2022-01-15 13:06 | NUR ---
PCT noted that pt has several live lice in her hair. primary RN notified. she will contact primary care rashawn. claudia
--- NOTE | 2022-01-15 13:16 | NUR ---
CARE NOT PT BACK FROM DIALYSIS APPROX. 1300. PERNELL WEI HELPING PT WITH CONFERENCE CALL VIA [employer].
--- NOTE | 2022-01-15 14:40 | NUR ---
CARE NOTE PT ST[facility] APPOINTMENT TO CONTEND GUARDIANSHIP, SHE HAS YET TO EAT LUNCH THEREFOR 1200 INSULIN IS LATE WELL LICE TREATMENT.
--- NOTE | 2022-01-15 15:58 | NUR ---
care note pt court appointment via [employer] ended approx. 1550. pt now finishing lunch.
--- NOTE | 2022-01-15 18:13 | NUR ---
SHIFT SUMMARY PT IS ALERT TO SELF, PLACE, YEAR, FAMILY AND TIME BUT IS FORGETFUL. BP AND HR STABLE, SPO2 MAINTAINED >95% VIA 1-3L NC. SHE REPORTS PAIN IN RIGHT HEEL AND LOW BACK, SEE EMAR FOR PAIN MANAGEMENT. REPOSITIONING ALSO PROVIDED. PT SAT IN RECLINER CHAIR FOR MAJORITY OF SHIFT W/ CHAIR ALARM. DIALYSIS THIS AM AND PER REPORT 5L REMOVED. PT ALSO HAD COURT MEETING VIA [employer] TO CONTEST [id number]. AFTER COURT APPOINTMENT WAS OVER, PT WAS TREATED FOR LICE PER EMAR ORDERS. BILATERAL HEEL PROTECTORS CHANGED, WOUND ON RIGHT HEEL PAINTED W/ BETADINE AND REDRESSED PER ORDERS. LEGS ELEVATED ON PILLOWS. PT IS NOW WATCHING TV, CALL LIGHT IS W/IN REACH. WILL CONTINUE TO MONITOR UNTIL REPORT GIVEN.
--- NOTE | 2022-01-16 05:38 | NUR ---
SHIFT SUMMARY NO ACUTE EVENTS THIS EVENING. PT ALERT AND ORIENTED X4. AFEBRILE. BP STABLE. PULSE 50-70'S. ON 1L NC SATS OVER 94%. ON BIPAP WHILE ASLEEP. REMAINS IN CHAIR THROUGHOUT THE NIGHT. Q2 TURNS. 8/10 R FOOT PAIN, MEDICATED PER EMAR. CBG'S BETWEEN 120-142 TONIGHT. EMOTIONAL AT TIMES, WILL CRY OUT RANDOMLY. OTHERWISE PLEASANT AND COOPERATIVE TO CARE. 300ML OF FLUID THIS EVENING. IN CHAIR SLEEPING WITH CALL ALARM AT SIDE, WILL CONTINUE TO MONITOR UNTIL REPORT GIVEN TO ONCOMING RN
--- NOTE | 2022-01-16 13:53 | NUR ---
DIALYSIS NOTE KETTLE TENDER IN TO DRAW LABS FROM HD CATH AT REQUEST OF BEDSIDE RN AND LAB AND WITH APPROVAL FROM .
[2022-01-16 14:10] LABS: Hematocrit 24.1 % (33.0-51.0); Hemoglobin 7.6 g/dL (11.5-16.0)
[2022-01-16 14:29] LABS: Albumin, Blood 2.6 g/dL (3.4-5.0); Anion Gap 5 mmol/L (6-16); Blood Urea Nitrogen 86 mg/dL (8-24); Bun/Creatinine Ratio 26.4 (12.0-20.0); CO2, Blood 34 mmol/L (21-32); Calcium, Blood 9.1 mg/dL (8.5-10.1); Chloride, Blood 97 mmol/L (98-108); Creatinine, Blood 3.26 mg/dL (0.40-1.00); Glomerular Filtration Rate 17 (60-); Glucose, Blood 182 mg/dL (70-99); Magnesium, Blood 2.2 mg/dL (1.6-2.4); Phosphorus, Blood 2.9 mg/dL (2.5-4.9); Potassium, Blood 5.3 mmol/L (3.5-5.5); Sodium, Blood 136 mmol/L (136-145)
--- NOTE | 2022-01-16 18:43 | NUR ---
SHIFT SUMMARY PT IS ALERT AND ORIENTED X 4 BUT FORGETFUL AT TIMES. SHE IS ABLE TO MAKE HER NEEDS KNOWN AND HAS USED HER CALL LIGHT APPROPRIATELY. SPO2 >95% VIA 1-2L NC, HR AND BP STABLE. SHE REPORTED PAIN IN RIGHT LEG, LOW BACK WELL A HEADACHE, SEE EMAR. REPOSITIONING ALSO PROVIDED TO ALLEVIATE PAIN. DRESSING OVER WOUND ON R LEG COVERED W/ HEEL PROTECTOR/ DRESSED PER EMAR ORDERS, MEPILEX DRESSING OVER COCCYX IN PLACE AND IS C/D/I. FREQUENT BRIEF CHANGES/CHECKS IMPLIMENTED TO KEEP SKIN C/D, POWDER ALSO APPLIED. PHYSICAL THERAPY AND OCCUPATIONAL THERAPY WORKED W/ PT TODAY. PT SAT IN RECLINER CHAIR FOR SHIFT. SHE IS NOW WATCHING T.V, CALL LIGHT IN REACH, CHAIR ALARM ON.
--- NOTE | 2022-01-17 04:48 | NUR ---
SHIFT SUMMARY: PT ALERT AND ORIENTED X3, ABLE TO FOLLOW COMMANDS AND MAKE NEEDS KNOWN. BP AND HR STABLE, AFEBRILE, PT REMAINED ON CPAP W/2L BLEED IN THROUGHOUT THE NIGHT. PT COMPLAINED OF LOWER LEG PAIN AT START OF SHIFT, MEDICATED PER EMAR. ATTENDS IN PLACE AND DRY. NO BM. PLAN FOR DIALYSIS TODAY. ALARM ON, CALL LIGHT IN REACH, WILL REPORT TO ONCOMING RN.
[2022-01-17 09:16] LABS: Hemoglobin 7.4 g/dL (11.5-16.0)
[2022-01-17 09:30] LABS: Magnesium, Blood 2.5 mg/dL (1.6-2.4)
[2022-01-17 09:31] LABS: Albumin, Blood 2.6 g/dL (3.4-5.0); Anion Gap 6 mmol/L (6-16); Blood Urea Nitrogen 116 mg/dL (8-24); Bun/Creatinine Ratio 30.4 (12.0-20.0); CO2, Blood 30 mmol/L (21-32); Calcium, Blood 9.3 mg/dL (8.5-10.1); Chloride, Blood 96 mmol/L (98-108); Creatinine, Blood 3.81 mg/dL (0.40-1.00); Glomerular Filtration Rate 14 (60-); Glucose, Blood 356 mg/dL (70-99); Phosphorus, Blood 2.8 mg/dL (2.5-4.9); Potassium, Blood 5.9 mmol/L (3.5-5.5); Sodium, Blood 132 mmol/L (136-145)
--- NOTE | 2022-01-17 17:43 | NUR ---
NO ACUTE EVENTS T/O THE SHIFT. HD TODAY, PT TOLERATED WELL, 3.5L OFF PER HD RN. BS HIGH THIS AM BUT HAVE COME DOWN THIS EVENING. DISCHARGE PLANNING CONTINUES. PT REMAINS IN ISOLATION FOR LICE TREATMENT. NO CHANGES IN PT CONDITION, PT ABLE TO USE CALL LIGHT FOR NEEDS. CALL LIGHT IN REACH, WILL CONTINUE TO MONITOR AND GIVE REPORT TO NOC SHIFT RN.
--- NOTE | 2022-01-18 06:20 | NUR ---
SUMMARY NO ACUTE CHANGES NOTED THROUGH THE NIGHT. VSS, RESP UNLABORED, PT CALLS APPROPRIATLY PRN, SHE WAS ABLE TO SLEEP WITH NO PROBLEMS, PAIN MEDICATED PER EMAR. AWAKE WATCHING TV, CALL LIGHT IN REACH.
--- NOTE | 2022-01-18 17:46 | NUR ---
NO ACUTE EVENTS OR CHANGES TO PT'S CONDITION THIS SHIFT. BLOOD SUGARS NOTED TO BE HIGH IN THE AM AND AFTERNOON TODAY, MAY BE RELATED TO INSULIN PEN BEING LOW AND NEEDING REPLACED. NEW INSULIN PEN ACQUIRED FOR LUNCH TIME DOSAGE, AND BLOOD SUGARS HAVE DECREASED THROUGH THE AFTERNOON. HD TODAY, 2.6L REMOVED PER HD RN REPORT. SEE DOCUMENTED VS AND ASSESSMENT. PT HAS ADHEARED TO HER FLUID RESTRICTION TODAY. PT'S FAMILY AT BEDSIDE TO VISIT, UPDATED ON PT'S CONDITION. NO FURTHER NEEDS IDENTIFIED AT THIS TIME, CALL LIGHT IN REACH, WILL CONTINUE TO MONITOR AND GIVE REPORT TO NOC SHIFT RN.
--- NOTE | 2022-01-19 05:57 | NUR ---
SHIFT SUMMARY PATIENT ALERT AND ORIENTED, FORGETFUL AT TIMES. VSS, PATIENT ON 2-3L NC WHILE AWAKE, CPAP AT NIGHT, O2 SAT >90%. MEDICATED PER EMAR FOR PAIN AND ANXIETY THIS SHIFT. NO ACUTE CHANGES THIS SHIFT, WILL REPORT TO DAY SHIFT RN.
[2022-01-19 08:13] LABS: Hematocrit 23.8 % (33.0-51.0); Hemoglobin 7.6 g/dL (11.5-16.0)
--- NOTE | 2022-01-19 08:13 | NUR ---
DIALYSIS JANE LABS (H&H, RENAL PANEL) FROM DIALYSIS CATH PER PROTOCAL. SENT TO LAB. CHANGED PT'S DRESSING PER PROTOCAL. IT WAS FINE YESTERDAY DURING TX, BUT IT LOOKED LIKE IT WAS COMING LOOSE THIS AM. PT REMAINS IN ISOLATION.
[2022-01-19 08:27] LABS: Albumin, Blood 2.8 g/dL (3.4-5.0); Anion Gap 6 mmol/L (6-16); Blood Urea Nitrogen 84 mg/dL (8-24); Bun/Creatinine Ratio 28.1 (12.0-20.0); CO2, Blood 32 mmol/L (21-32); Calcium, Blood 9.5 mg/dL (8.5-10.1); Chloride, Blood 97 mmol/L (98-108); Creatinine, Blood 2.99 mg/dL (0.40-1.00); Glomerular Filtration Rate 19 (60-); Glucose, Blood 268 mg/dL (70-99); Phosphorus, Blood 2.3 mg/dL (2.5-4.9); Potassium, Blood 5.1 mmol/L (3.5-5.5); Sodium, Blood 135 mmol/L (136-145)
--- NOTE | 2022-01-19 12:14 | NUR ---
DIALYSIS PLACED CATHFLO IN VENOUS PORT PER PROTOCAL. USED DIALYSIS CATH FOR IV MED. NO OTHER ACCESS AVAILABLE FOR IV MEDS AT THIS TIME.
--- NOTE | 2022-01-19 17:42 | NUR ---
NO ACUTE EVENTS T/O THE SHIFT TODAY. HD SCHEDULED FOR TOMORROW. NO CHANGES TO PT'S OVERAL CONDITION NOTED TODAY. PT ABLE TO USE CALL LIGHT FOR NEEDS, CALL LIGHT IN REACH, WILL CONTINUE TO MONITOR AND GIVE REPORT TO NOC SHIFT RN.
--- NOTE | 2022-01-19 22:00 | NUR ---
ASSUMED CARE OF PT. NO CHANGES TO SHIFT ASSESSMENT TONIGHT. PT HAS A PERMACATH TO RIGHT CHEST WALL, DRESSING CD&I. CALL LIGHT WITHIN REACH. BED IN LOW POSITION. PT HAS FLUIDS AT BEDSIDE. PT IS CURRENTLY SLEEPING.
--- NOTE | 2022-01-20 00:58 | NUR ---
CPAP PLACED BACK ON. CALL LIGHT WITHIN REACH. BED IN LOW POSITION. HOB ELEVATED.
--- NOTE | 2022-01-20 06:14 | NUR ---
PT IS REQUESTING TO HAVE THE CPAP OFF AND TO NOT PLACE THE OXYGEN ON - HOWEVER WHILE IN ROOM - SATS DROPPING TO 87-88% ON RA - PLACED 1L O2 BACK ON - SATS TO 95% - CONTINUOUS BIOX ON. PT DENIES SYMPTOMS OF LOW BLOOD SUGAR - NO S/S AT THIS TIME.
--- NOTE | 2022-01-20 07:21 | NUR ---
SHIFT SUMMARY - NO ACUTE CHANGES THROUGHOUT THIS SHIFT. PT SLEPT OFF/ON THROUGHOUT THE NIGHT WITH CPAP ON, OR WITH 2 L O2 PLACED ON, WHILE AWAKE. PT'S CBG WAS 71 LAST NOC - SNACKS GIVEN X2. PT DENIED FEELING SYMPTOMATIC THIS AM, AND PT REPORTED SHE CAN TELL WHEN HER BLOOD SUGAR IS LOW - NO S/S PRESENT THIS AM. PT WAS ABLE TO MAKE HER NEEDS KNOW THROUGHOUT THE NIGHT. BED IN LOW POSITION. PT ON BARIATRIC AIR BED. CALL LIGHT WITHIN REACH. PT HAS BEEN NEEDY AT TIMES, BUT OTHERWISE HAS BEEN APPROPRIATE IN HER BEHAVIOR.
--- NOTE | 2022-01-20 18:51 | NUR ---
SHIFT SUMMARY S/P ACUTE RESP FAIL, A/O BUT FORGETFUL, WORKED WITH PT/OT TODAY, DIALYSIS ORDERD WITH 1800 OUT, STRICT I&O WITH 575 FLUID IN PO. UP TO CHAIR USING LIFT. STILL AWAITING PLACEMENT. NO ACUTE EVENTS THIS SHIFT, CALL LIGHT IN REACH, WILL CTM AND REPORT TO ONCOMING NOC RN.
[2022-01-21 02:32] LABS: Hematocrit 26.2 % (33.0-51.0); Hemoglobin 8.4 g/dL (11.5-16.0)
[2022-01-21 02:49] LABS: Albumin, Blood 3.1 g/dL (3.4-5.0); Anion Gap 10 mmol/L (6-16); Blood Urea Nitrogen 104 mg/dL (8-24); Bun/Creatinine Ratio 30.4 (12.0-20.0); CO2, Blood 26 mmol/L (21-32); Calcium, Blood 8.9 mg/dL (8.5-10.1); Chloride, Blood 99 mmol/L (98-108); Creatinine, Blood 3.42 mg/dL (0.40-1.00); Glomerular Filtration Rate 16 (60-); Glucose, Blood 545 mg/dL (70-99); Magnesium, Blood 2.3 mg/dL (1.6-2.4); Phosphorus, Blood 3.6 mg/dL (2.5-4.9); Potassium, Blood 5.6 mmol/L (3.5-5.5); Sodium, Blood 135 mmol/L (136-145)
--- NOTE | 2022-01-21 03:08 | NUR ---
UPDATE 0130 GLUCOSE CHECKED, ACDS BLOCK 1 OPERATOR CALLED THIS RN TO ROOM. GLUCOMETER READINGTO HIGH TO CALCULATE. CALL PLACED TO RESIDENT, OK TO DRAW AM LABS EARLY. GLUCOSE CAME BACK 545. CALL PLACED TO RESIDENT AGAIN, OT DOSE OF 10 UNITS HUMALOG RECIEVED WITH GLUCOSE RECHECK IN 1 HOUR. PATIENT REMAINS ALERT, STATES THAT "I DON'T FEEL GOOD", FALLS ASLEEP AFTER CONVERSING WITH STAFF BUT WAKES EASILY TO VERBAL STIMULI.
--- NOTE | 2022-01-21 06:57 | NUR ---
SHIFT SUMMARY PATIENT WAKES EASILY TO VERBAL STIMULI. VSS, PATIENT ALTERNATING BETWEEN NC AND CPAP. INCONTINENT OF BLADDER/BOWEL. PATIENT GIVEN BOWEL CARE THIS SHIFT, PATIENT ABLE TO HAVE VERY LARGE HARD STOOL THIS SHIFT. PATIENT REPORTS MINIMAL RELIEF AND STATES "I'M BACKED UP". BLOOD GLUCOSE CHECKED Q1 AFTER 0130 CHECK D/T HYPERGLYCEMIA, SEE PREVIOUS NOTES. AM MEDICATIONS HELD D/T PATIENT FALLING ASLEEP MID CONVERSATION. CPAP IN PLACE. NO OTHER CHANGES, WILL REPORT TO DAY SHIFT RN.
--- NOTE | 2022-01-21 18:02 | NUR ---
DAY SHIFT SUMMARY PT ORIENTED X4 BUT HAS SOME WORD FINDING DIFFICULTY AND REPEATS WORDS AT TIMES. MED NO TELE STATUS, VSS PER PT TREND ON 2-3L NC. PAIN IN BILATERAL FEET, DRESSING CHANGED X1 AND MEPILEX PLACED ON BUTTOCKS. SKIN BREAKDOWN NOTED TO BUTTOCKS. EDUCATED ON IMPORTANCE OF TURNING Q2 WHENEVER PT REFUSED. BLOOD GLUCOSE DOWN TO 40S AT PM CHECK. ALERT AND ORIENTED, TALKING. PT RECEIVED ONLY POST PRANDIAL COVERAGE AT LUNCHTIME. GLUCOSE IMPROVED TO 120S. NO PM COVERAGE GIVEN DUE TO LOW APPETITE AND GLUCOSE LEVEL. WILL PASS ON TO DAY RN
--- NOTE | 2022-01-22 05:54 | NUR ---
NAMED ACCOUNT EXECUTIVE SUMMARY PT IS ALERT AND ORIENTED [id number] APPROPRIATELY W STAFF. O2 SATS .90% ON 2L NC SHE ONLY KEPT HER CPAP ON FOR 1 HOUR THIS SHIFT. BP MILDLY ELEVATED THIS SHIFT. CBG'S ELEVATED THIS SHIFT BUT TRENDING DOWN THE PT WAS TREATED FOR HYPOGLYCEMIA ON THE PREVIOUS DAYSHIFT CAUSING AN OVER CORRECTION. PT ABLE TO SLEEP FOR MOST OF THE NIGHT. WILL REPORT TO ONCOMING RN.
[2022-01-22 11:17] LABS: Albumin, Blood 2.8 g/dL (3.4-5.0); Anion Gap 10 mmol/L (6-16); Blood Urea Nitrogen 77 mg/dL (8-24); Bun/Creatinine Ratio 23.9 (12.0-20.0); CO2, Blood 30 mmol/L (21-32); Calcium, Blood 9.1 mg/dL (8.5-10.1); Chloride, Blood 99 mmol/L (98-108); Creatinine, Blood 3.22 mg/dL (0.40-1.00); Glomerular Filtration Rate 17 (60-); Glucose, Blood 111 mg/dL (70-99); Magnesium, Blood 2.3 mg/dL (1.6-2.4); Phosphorus, Blood 3.6 mg/dL (2.5-4.9); Potassium, Blood 4.5 mmol/L (3.5-5.5); Sodium, Blood 139 mmol/L (136-145)
[2022-01-22 11:20] LABS: Hematocrit 26.3 % (33.0-51.0); Hemoglobin 8.3 g/dL (11.5-16.0)
--- NOTE | 2022-01-22 13:28 | NUR ---
Pt c/o itching on the left buttock area. Turned to visualize her back and both buttocks. Area of about 15 cm diameter is covered with small red round vesicles containing yellowish white pus. Call to Dr. Melo who decided against any cultures at this time, but presribed anti-itch ointment for them.
--- NOTE | 2022-01-22 14:00 | NUR ---
RLE DRESSING CHANGED PER ORDERS. PT TOLERATE WELL. NEXT CHANGE Thursday01/22/22
--- NOTE | 2022-01-22 14:28 | NUR ---
Complete bedbath, including lice treatment shampoo per instructions on box and combed hair throroughly with lice comb. Dressings on heels and sacrum were all changed after bedbath. Pt tolerated well. Oral care done by patient with supervision. She is lying in bed, HOB elevated to 30 degrees. Pt is eating ice cubes.
--- NOTE | 2022-01-22 14:34 | NUR ---
WOUNDS FOLLOWS: PRESSURE ULCER RIGHT HEEL, COVERED WITH HYDROFERA BLUE FOAM AND SECURED WITH BROWN MEPILEX HEEL PROTECTOR. SCAB PRESENT RIGHT HEEL, ACHILLES AREA, NO DRAINAGE, DRY. SACRUM IS EXCORIATED, MOST LIKELY FROM SOILING. PT WAS INSTRUCTED TO CALL STAFF BEFORE URINARY/FECAL INCONTINENCE SO THAT SHE CAN USE THE BEDPAN INSTEAD OF SITTING IN SOILED LINENS AFTER INCONTINENCE. PT STATES THAT SHE DIDN'T KNOW THAT SHE COULD CALL BEFORE HAND FOR THAT.
--- NOTE | 2022-01-22 15:22 | NUR ---
PT WORKING WITH OT AFTER WORKING WITH PT THIS AFTERNOON.
--- NOTE | 2022-01-22 16:32 | NUR ---
Pt is alert, oriented, conversant. Talking about needing to call the court but she is unable to clearly or logically articulate the reason why. CBG is 61; given the rest of her lunch which she has been saving on her tray, as well as a package of saltine crackers at her request. She is taking pills whole with applesauce at this time, too.
--- NOTE | 2022-01-22 20:00 | NUR ---
ASSUMED CARE OF PT AT 1915. REPORT RECEIVED. PT PRESENTS IN BED. ALERT AND ORIENTED. PLEASANT AND COOPERATIVE WITH CARE AND ASSESSMENT. IS ABLE TO HOLD CONVERSATION. PT REQUEST TO KNOW WHEN SHE HAD HER LAST PAIN MEDICATIONS. THIS INFORMATION PROVIDED. WILL REVIEW CHART AND PLAN OF CARE FOR THIS PT.
--- NOTE | 2022-01-23 05:35 | NUR ---
PT WEARS HER CPAP UP UNTIL APPROX 0430. REQUESTS TO GO BACK TO NASAL CANNULA. PT ON 2 L/M MAINTAINING > 90 PERCENT SATURATIONS. PT STATES SHE HAS A HEADACHE THAT SHE RATES 8/10 AND REQUESTS TO HAVE HER NORCO. THIS GIVEN TO PT, NO FURTHER COMPLAINTS VOICED. PT HAS TOLERATED BEING TURNED IN BED. CONTROL SYSTEMS DESIGNER HAS ASSISTED PT WITH ORAL CARE. PT REQUESTS ADDITIONAL FLUIDS AND WAS REMINDED THAT SHE IS ON A FLUID RESTRICTION. WILL CONTINUE TO MONITOR PT, AND WILL REPORT OFF TO ONCOMING RN.
[2022-01-23 09:33] LABS: Hematocrit 25.3 % (33.0-51.0); Hemoglobin 8.1 g/dL (11.5-16.0)
[2022-01-23 09:53] LABS: Albumin, Blood 2.8 g/dL (3.4-5.0); Anion Gap 14 mmol/L (6-16); Blood Urea Nitrogen 93 mg/dL (8-24); Bun/Creatinine Ratio 24.2 (12.0-20.0); CO2, Blood 28 mmol/L (21-32); Calcium, Blood 8.9 mg/dL (8.5-10.1); Chloride, Blood 97 mmol/L (98-108); Creatinine, Blood 3.85 mg/dL (0.40-1.00); Glomerular Filtration Rate 14 (60-); Glucose, Blood 198 mg/dL (70-99); Magnesium, Blood 2.3 mg/dL (1.6-2.4); Phosphorus, Blood 4.6 mg/dL (2.5-4.9); Potassium, Blood 5.4 mmol/L (3.5-5.5); Sodium, Blood 139 mmol/L (136-145)
--- NOTE | 2022-01-23 14:57 | NUR ---
Janis was at dialysis from 0910 until 1215. She has been alert, oriented and cooperative. States every 6 hours or so that she is having pain, in her right foot primarily, from the wound. Whenever possible, the foot was elevated or her body turned in order to relieve pressure and promote healing. She has been getting [place] 2 tabs for pain about every 6 hours. vital signs have been stable. Confirmed with check of her head with lice comb that there are no longer any lice nor nits in her hair. She denies any itching of her head. She is working with OT this afternoon.
--- NOTE | 2022-01-23 16:55 | NUR ---
Spiritual care Visit. Pt. is awake in bed when this wallpaper installer first visits. PT arrived so I excused myself and returned after PT was complete. Re-establish rapport with Pt. Pt. is pleasant. Facilitated a life review, and the conversation was one that the Pt. displayed evidence of being curious and engaged. Prayed with Pt. Pt. verbalized gratitude for the spiritual care visit. Before departure the Pt. verbalized a concern about her blood sugar. Pt. pushed call light, and this wallpaper installer informed the charge nurse.
--- NOTE | 2022-01-23 19:30 | NUR ---
This afternoon Reyna felt that her blood sugar was low around 5 pm. She was given snacks and dinner, and an hour later her blood sugar was 112. She has had less pain on her right heel with a pillow under it to relieve the pressure. She has been cheerful, cooperative and pleasantly conversant.
--- NOTE | 2022-01-24 06:03 | NUR ---
EQUITY SALES ASSISTANT SUMMARY ASSUMED CARE OF PATIENT AT 1900. SHE HAS BEEN ALERT AND ORIENTED X2-3. REPEATED QUESTIONING. COOPERATIVE WITH CARE. PT WAS GIVEN NORCO X2 FOR PAIN THIS SHIFT. SHE HAS BEEN SLEEPING WITH HER CPAP AT NIGHT AND USING 2L BY NC DURING THE DAY AND SATTING >92%. PT HAD BEEN COMPLAINING OF LACK OF BM FOR TWO DAYS BUT HAD LARGE HARD BM THIS SHIFT AFTER BOWEL CARE INCREASED. CBG WAS 159 AT HS AND 157 AT MIDNIGHT WHEN PATIENT REQUESTED A RECHECK. SHE IS WEAK THROUGHOUT AND REQUIRES ASSISTANCE WITH REPOSITIONING. NO ACUTE CONCERNS AT THIS TIME.
[2022-01-24 07:00] LABS: Hematocrit 26.2 % (33.0-51.0); Hemoglobin 8.4 g/dL (11.5-16.0)
[2022-01-24 07:15] LABS: Albumin, Blood 2.7 g/dL (3.4-5.0); Anion Gap 7 mmol/L (6-16); Blood Urea Nitrogen 66 mg/dL (8-24); Bun/Creatinine Ratio 22.7 (12.0-20.0); CO2, Blood 31 mmol/L (21-32); Calcium, Blood 8.8 mg/dL (8.5-10.1); Chloride, Blood 100 mmol/L (98-108); Creatinine, Blood 2.91 mg/dL (0.40-1.00); Glomerular Filtration Rate 20 (60-); Glucose, Blood 99 mg/dL (70-99); Magnesium, Blood 2.4 mg/dL (1.6-2.4); Potassium, Blood 5.1 mmol/L (3.5-5.5); Sodium, Blood 138 mmol/L (136-145)
--- NOTE | 2022-01-25 06:08 | NUR ---
SHIFT SUMMARY: THIS AUTHOR ASSUMED PATIENT CARES FROM [id number]. PATIENT ON CPAP UNTIL AM MEDS. NO COMPLAINTS AT THIS TIME. NO ACUTE NEEDS FOR THE SHORT ASSIGNMENT. RECEIVED PAIN MEDS PRIOR TO THIS AUTHOR TAKING OVER. ORIENTED. LS CLEAR. EXISTING HTN; SCHEDULED HYDRALAZINE GIVEN. BS ACTIVE. NO BM DURING THE 4 HOURS. NO NEW SKIN CONCERNS. UNABLE TO VIEW R HEEL IT IS WRAPPED AND BEING ADDRESSED BY WOUND CARE TEAM.
[2022-01-25 08:16] LABS: Hematocrit 26.3 % (33.0-51.0); Mean Corpuscular HGB 30.2 pg (26.0-34.0); Mean Corpuscular HGB Conc 30.4 g/dL (31.5-36.5); Mean Corpuscular Volume 99 fL (80-100); Mean Platelet Volume 9.5 fL (9.1-12.4); Platelet Count 410 K/mm3 (150-400); RDW Coefficient Variation 15.3 % (11.7-14.2); RDW Standard Deviation 54.5 fL (35.1-46.3); Red Blood Cell Count 2.65 M/mm3 (3.80-5.20); White Blood Cell Count 7.64 K/mm3 (4.00-11.30)
[2022-01-25 08:38] LABS: Albumin, Blood 2.7 g/dL (3.4-5.0); Anion Gap 9 mmol/L (6-16); Blood Urea Nitrogen 56 mg/dL (8-24); Bun/Creatinine Ratio 19.8 (12.0-20.0); CO2, Blood 29 mmol/L (21-32); Calcium, Blood 8.5 mg/dL (8.5-10.1); Chloride, Blood 101 mmol/L (98-108); Creatinine, Blood 2.83 mg/dL (0.40-1.00); Glomerular Filtration Rate 20 (60-); Glucose, Blood 248 mg/dL (70-99); Phosphorus, Blood 4.5 mg/dL (2.5-4.9); Potassium, Blood 4.9 mmol/L (3.5-5.5); Sodium, Blood 139 mmol/L (136-145)
--- NOTE | 2022-01-25 17:29 | NUR ---
SHIFT SUMMARY PT A&OX4 BUT SOMETIMES FORGETFUL DURING A CONVERSATION BECAUSE SHE REPEATS QUESTIONS THAT WERE JUST ASKED. SHE HAS BEEN ON ROOM AIR ALL DAY W/ SP02 >90%. PT DID SOME ROM AND PHYSICAL THERAPY EXERCISES IND IN BED, AND HAS EQUAL BILAT STRENGTH IN UPPER EXTREMITIES. SHE IS STILL WEAK IN HER LEGS. PT HAS A RASH ON HER LEFT HIP THAT ITCHES AND HAS PUSTULES. NOTIFIED AND ORDERED SOME STERIOD CREAM FOR IT. PT VS HAVE BEEN STABLE AND SHE HAS DENIES ANGINA, N/V/D, AND SOB. BED IS IN LOW, CALL LIGHT IS IN REACH, CAMERA IS ON, AND THREE SIDE RAILS UP. WILL CONTINUE TO MONITOR UNTIL SHIFT REPORT IS GIVEN TO THE ONCOMING SHIFT RN. SEE NOTES FOR ANY UPDATES.
--- NOTE | 2022-01-25 20:49 | NUR ---
BLOOD SUGAR BG 54 WITH ACHS, SNACKS AND APPLE JUICE PROVIDED, BG RECHECKED IN HALF AND HOUR SHE IS NOW ABOVE 70, WILL CONTINUE MONITORING.
--- NOTE | 2022-01-26 05:14 | NUR ---
SHIFT SUMMARY PT HAS RESTED WELL THIS SHIFT, SHE HAD SOME HYPOGLYCEMIA AT THE START OF THE SHIFT BG WAS 54 GLARGINE HELD A RESULT. HYPOGLYCEMIA RESOLVED AFTER RECEIVING SNACKS. BG STABLE WITH REPEATED CHECKS THIS SHIFT. PT MEDICATED FOR PAIN PER EMAR WITH EFFECT. VITALS ARE STABLE. PLAN IS FOR DIALYSIS TODAY. BED IN LOWEST POSITION, CALL LIGHT WITHIN REACH.
[2022-01-26 09:38] LABS: Hematocrit 29.1 % (33.0-51.0); Hemoglobin 8.9 g/dL (11.5-16.0)
[2022-01-26 10:08] LABS: Albumin, Blood 2.8 g/dL (3.4-5.0); Anion Gap 12 mmol/L (6-16); Blood Urea Nitrogen 75 mg/dL (8-24); Bun/Creatinine Ratio 21.3 (12.0-20.0); CO2, Blood 21 mmol/L (21-32); Calcium, Blood 8.3 mg/dL (8.5-10.1); Chloride, Blood 102 mmol/L (98-108); Creatinine, Blood 3.52 mg/dL (0.40-1.00); Glomerular Filtration Rate 16 (60-); Glucose, Blood 428 mg/dL (70-99); Magnesium, Blood 2.3 mg/dL (1.6-2.4); Phosphorus, Blood 5.4 mg/dL (2.5-4.9); Potassium, Blood 5.5 mmol/L (3.5-5.5); Sodium, Blood 135 mmol/L (136-145)
--- NOTE | 2022-01-26 12:27 | NUR ---
PT LEFT FOR DIALYSIS AT APPROXIMATELY 0912 AND RETURNED AT APPROXIMATELY 1215.
--- NOTE | 2022-01-26 17:53 | NUR ---
LOW BLOOD GLUCOSE PT HAD LOW BLOOD GLUCOSE OF 52 AT 1700. SHE WAS GIVEN 30GMS CARBS AND BLOOD GLUCOSE WAS CHECKED 15 MIN AFTER SNACK WAS FINISHED, BLOOD GLUCOSE AT 101. DR. SNYDER NOTIFIED. PLAN TO COVER DINNER WITH CARB COUNT.
--- NOTE | 2022-01-26 18:29 | NUR ---
SHIFT SUMMARY PT HAD DIALYSIS TODAY. PT HAS HAD BOTH ELEVATED AND LOW BLOOD GLUCOSE LEVELS. PT IS INCONTINENT AND REQUIRES ASSISTANCE TO REPOSTION. PAIN MANAGED WITH PO PAIN MEDICATION. WAITING FOR PLACEMENT AT THIS TIME. WILL MONITOR UNTIL REPORT TO CATRACHITO BERRY.
--- NOTE | 2022-01-26 22:24 | NUR ---
AT 2039 PATIENT REQUESTING TO HAVE HER GLUCOSE CHECKED CBG 59 OBTAINED. SNACK OF CRACKERS AND CREAM CHEESE GIVEN AND DIET PUDDING GIVEN WITH HS MEDICATIONS. PATIENT RESTING QUIETLY WATCHING TV AND TALKING TO FAMILY ON TELEPHONE. VERBALIZED THAT SHE IS GOING TO BE GOING HOME TO HER MOM SOON. ATTEMPT TO REMIND PATIENT THAT SHE WILL BE NEEDING MORE CARE THAN HE MOM CAN PROVIDE, PATIENT BECOMING DEFENSIVE AND DENIES THAT HER MOM HAS DIFFICULTY. PATIENT REFUSING KENAN AND LIQUACEL DUE TO THE WAY THEY TASTE AND NOT WANTING THEM TO ADD TO HER FLUID INTAKE. DRESSING TO RIGHT FOOT CD&I. CREAM PLACED TO RASH ON LEFT HIP. PERMACATH IN PLACE WITH DRESSING CD&I TO RIGHT CHEST.
--- NOTE | 2022-01-26 23:12 | NUR ---
PATIENT AWAKEN TO BEING DIAPHORETIC AND FEELING IF HER GLUCOSE WAS LOW CBG 38, SNACK OF ROAST BEEF SANDWICH WITH 2 STRING CHEESE AND 1 ICE CREAM GIVEN. PATIENT ABLE TO FEED SELF WITHOUT DIFFICULTY.
--- NOTE | 2022-01-27 06:16 | NUR ---
PATIENT SLEEPING APROX [address]. AWAKENS EASILY THIS MORNING FOR 0600 MEDS. HAD HYPOGLYCEMIA MOST OF THE NIGHT SEE LABS. SLIGHTLY FORGETFUL AT TIMES. ASSISTING WITH REPOSITIONING TO USE BEDPAN THIS AM. PLAN FOR AM LABS TO BE DRAWN BY DIALYSIS THIS MORNING.
[2022-01-27 13:27] LABS: Hematocrit 27.6 % (33.0-51.0)
[2022-01-27 13:43] LABS: Albumin, Blood 2.9 g/dL (3.4-5.0); Anion Gap 9 mmol/L (6-16); Blood Urea Nitrogen 65 mg/dL (8-24); Bun/Creatinine Ratio 18.2 (12.0-20.0); CO2, Blood 24 mmol/L (21-32); Calcium, Blood 8.8 mg/dL (8.5-10.1); Chloride, Blood 103 mmol/L (98-108); Creatinine, Blood 3.57 mg/dL (0.40-1.00); Glomerular Filtration Rate 15 (60-); Glucose, Blood 215 mg/dL (70-99); Magnesium, Blood 2.5 mg/dL (1.6-2.4); Phosphorus, Blood 5.7 mg/dL (2.5-4.9); Potassium, Blood 5.8 mmol/L (3.5-5.5); Sodium, Blood 136 mmol/L (136-145)
--- NOTE | 2022-01-27 19:31 | NUR ---
SHIFT SUMMARY PT A/OX4, VSS, TOLERATING PO, LOW CBG OVER NIGHT BUT SUGARS CAME BACK UP WITH SNACKS, CBG ELEVATED TODAY DURING AC CHECKS BUT UNDER 200 ALL DAY, CARB COUNT INSULIN GIVEN ORDERED, NO DIALYSIS TODAY, PT UP TO CHAIR AND WORKED WITH PHYSICAL THERAPY AND WAS ABLE TO DO SIT TO STAND. NO ACUTE EVENTS, REPORT GIVEN TO CATRACHITO BERRY.
--- NOTE | 2022-01-28 05:55 | NUR ---
PT SLEEPING WELL TONIGHT. PT TOLERATING HER CPAP WELL. VSS. NO CHANGES TO PTS PICUTRE. NO EVENTS OVER NIGHT.
[2022-01-28 09:24] LABS: Hematocrit 26.8 % (33.0-51.0); Hemoglobin 8.6 g/dL (11.5-16.0)
[2022-01-28 09:40] LABS: Albumin, Blood 2.6 g/dL (3.4-5.0); Anion Gap 25 mmol/L (6-16); Blood Urea Nitrogen 70 mg/dL (8-24); Bun/Creatinine Ratio 17.7 (12.0-20.0); CO2, Blood 21 mmol/L (21-32); Calcium, Blood 8.2 mg/dL (8.5-10.1); Chloride, Blood 96 mmol/L (98-108); Creatinine, Blood 3.96 mg/dL (0.40-1.00); Glomerular Filtration Rate 13 (60-); Glucose, Blood 197 mg/dL (70-99); Magnesium, Blood 2.3 mg/dL (1.6-2.4); Phosphorus, Blood 6.6 mg/dL (2.5-4.9); Potassium, Blood 5.4 mmol/L (3.5-5.5); Sodium, Blood 142 mmol/L (136-145)
--- NOTE | 2022-01-28 17:44 | NUR ---
SHIFT SUMMARY PT HAS BEEN UP IN CHAIR FOR A MAJORITY OF THE DAY, THEY STATED THAT DID NOT WANT TO GET INTO THE BED WHEN OFFERED. PT WAS IN HEMODIALYSIS FROM 0900 UNTIL 1300. PT WORKED WITH OCCUPATIONAL AND PHYSICAL THERAPIES. PT HAD AN EMOTIONAL MOMENT SPEAKING WITH CASE MANAGEMENT ABOUT BEING DISCHARGED TO ASSISTED RATHER THAN HOME. PT STATED THAT THEY REMEMBERED THE CONVERSATIONS REGARDING DISCHARGE PLACEMENT BUT WERE STILL HOPING FOR THE PLAN TO CHANGE.
[2022-01-29 04:24] LABS: Hematocrit 28.5 % (33.0-51.0); Hemoglobin 9.1 g/dL (11.5-16.0)
[2022-01-29 04:52] LABS: Albumin, Blood 2.9 g/dL (3.4-5.0); Anion Gap 8 mmol/L (6-16); Blood Urea Nitrogen 57 mg/dL (8-24); Bun/Creatinine Ratio 18.6 (12.0-20.0); CO2, Blood 28 mmol/L (21-32); Calcium, Blood 8.6 mg/dL (8.5-10.1); Chloride, Blood 99 mmol/L (98-108); Creatinine, Blood 3.07 mg/dL (0.40-1.00); Glomerular Filtration Rate 18 (60-); Glucose, Blood 203 mg/dL (70-99); Magnesium, Blood 2.4 mg/dL (1.6-2.4); Phosphorus, Blood 5.7 mg/dL (2.5-4.9); Potassium, Blood 5.8 mmol/L (3.5-5.5); Sodium, Blood 135 mmol/L (136-145)
--- NOTE | 2022-01-29 05:26 | NUR ---
SHIFT SUMMARY PATIENT WITH LOW BLOOD SUGAR LAST NIGHT. SNACKS GIVEN PER PROTOCOL, BS STABLE. NO OTHER ACUTE EVENTS. PT'S VITALS CONTINUE TO BE STABLE. PT ALLOWED THIS RN TO PUT CPAP ON AROUND 0100 THIS MORNING AND HAS BEEN WEARING IT EVER SINCE. MEDICATED PER EMAR FOR PAIN. NO URINE OUTPUT FOR THIS SHIFT. POWDER APPLIED TO ABD/ALY AREA FOLDS. PATIENT REFUSED TO GO TO BED AND REMAINED IN HER RECLINER THIS SHIFT; REPOSITIONED WITH PILLOWS Q2HRS. PT'S LEFT HEEL PROTECTOR DRESSING CHANGED. RIGHT DRESSING C/D/I; HEEL BEING FLOATED. PT CALLING APPROPRIATELY AND IS COOPERATIVE WITH CARE BUT CONTINUES TO HAVE EPISODES OF TEARFULNESS/ANXIETY. PT APPEARS TO BE RESTING AT THIS TIME WITH CPAP IN PLACE. CALL LIGHT WITHIN REACH. THIS RN WILL CONTINUE TO MONITOR AND PROVIDE INTERVENTIONS NEEDED/ORDERED UNTIL SHIFT CHANGE AT 0700.
--- NOTE | 2022-01-29 16:29 | NUR ---
Spiritual Care Visit. Pt. is awake and sitting in her recliner and welcmoes my visit. Pt. is pleasant. Pt. is unsettled because she wants her mom to talk to the doctor about the possibility of Reyna coming home. Listen carefully and re-establish rapport. Pt. took a family phone call during the visit. Dr. Deng visited Pt. Prayed with Pt. Pt. verbalized gratitude for the spiritual care visit.
--- NOTE | 2022-01-29 17:13 | NUR ---
SHIFT SUMMARY PT HAS BEEN RESTING IN ROOM. PT WORKED WITH THERAPIES AND RECEIVED HEMODIALYSIS IN ROOM. PT HAS BEEN FIXATED ON DISCHARGING HOME TO THE CARE OF THEIR MOTHER DESPITE THE DISCAHRGE PLAN BEING EXPLAINED MULTIPLE TIMES. NO ACUTE CHANGES IN CONDITION.
--- NOTE | 2022-01-30 05:52 | NUR ---
SHIFT SUMMERY NO ACUTE CHANGES OVERNIGHT. PT IS ALERT AND ORIENTED X4, THOUGH SOMETIMES FORGETFUL. VS WNL. PAIN MANAGED W/MED PER MAY. SEE ORDERS. NO ACUTE DISTRESS OVERNIGHT.
[2022-01-30 07:38] LABS: Hematocrit 27.4 % (33.0-51.0); Hemoglobin 8.9 g/dL (11.5-16.0)
[2022-01-30 07:54] LABS: Albumin, Blood 2.8 g/dL (3.4-5.0); Anion Gap 10 mmol/L (6-16); Blood Urea Nitrogen 64 mg/dL (8-24); Bun/Creatinine Ratio 17.5 (12.0-20.0); CO2, Blood 27 mmol/L (21-32); Calcium, Blood 8.8 mg/dL (8.5-10.1); Chloride, Blood 95 mmol/L (98-108); Creatinine, Blood 3.65 mg/dL (0.40-1.00); Glomerular Filtration Rate 15 (60-); Glucose, Blood 355 mg/dL (70-99); Magnesium, Blood 2.4 mg/dL (1.6-2.4); Phosphorus, Blood 5.6 mg/dL (2.5-4.9); Potassium, Blood 5.7 mmol/L (3.5-5.5); Sodium, Blood 132 mmol/L (136-145)
--- NOTE | 2022-01-30 17:38 | NUR ---
SHIFT SUMMARY PT HAS WORKED WITH THERAPIES AND RECIEVED HEMODIALYSIS. PT SPENT HALF OF THE DAY RESTING IN THE CHAIR AND HALF IN THE BED. WOUND CENTER NURSE CAME TO CHECK IN AND CHANGE DRESSINGS.
--- NOTE | 2022-01-30 21:00 | NUR ---
RECEIVED REPORT FROM RONALD BERRY. PT A&O X4, ABLE TO FOLLOW COMMANDS, SLOW TO RESPOND AT TIMES BUT OVERALL ABLE TO ANSWER QUESTIONS APPROPRIATELY. C/O PAIN TO RIGHT FOOT. PRN NORCO GIVEN PER EMAR. PT REQUESTING SNACKS AND INFORMED HER THAT DEPENDING ON WHAT HER CBG IS AROUND 0130 AM WILL DETERMINE IF SHE NEEDS SOMETHING. PT IN AGREEMENT WITH PLAN AND REQUESTING CPAP AT THAT TIME WELL.
--- NOTE | 2022-01-31 06:02 | NUR ---
SHIFT SUMMARY: PT HAD AN UNEVENTFUL NIGHT. A&O X4, SLOW TO RESPOND BUT ABLE TO FOLLOW COMMANDS AND MAKE NEEDS KNOWN. C/O PAIN X 2, RELIEVED WITH PRN NORCO. BP'S SLIGHTLY ELEVATED - SCHEDULED BP MEDS GIVEN. WHILE PT WAS AWAKE SHE WAS ON RA AND WHEN SHE FELL ASLEEP, CPAP WAS PLACED AROUND 11PM. CBG'S WNL, NO SNACKS GIVEN. PT HAD MULTIPLE LARGE, HARD BM'S AND URINATED ONCE.
--- NOTE | 2022-01-31 06:35 | NUR ---
DIALYSIS NOTE MAGAZINE FILLER IN TO DRAW LABS FROM HD CATH AT REQUEST OF BEDSIDE RN AND LAB AND WITH APPROVAL FROM .
--- NOTE | 2022-01-31 06:54 | NUR ---
PT STATED THAT SHE FELT LIKE HER BLOOD SUGAR WAS LOW. RECHECK WAS 60. A PACK OF PEANUT BUTTER AND SALTINE CRACKERS WAS GIVEN TO PT. WILL PASS ON TO DAY SHIFT RN.
[2022-01-31 06:59] LABS: Hematocrit 26.8 % (33.0-51.0); Hemoglobin 8.8 g/dL (11.5-16.0)
[2022-01-31 07:13] LABS: Albumin, Blood 2.8 g/dL (3.4-5.0); Anion Gap 8 mmol/L (6-16); Blood Urea Nitrogen 59 mg/dL (8-24); Bun/Creatinine Ratio 17.9 (12.0-20.0); CO2, Blood 31 mmol/L (21-32); Calcium, Blood 8.9 mg/dL (8.5-10.1); Chloride, Blood 98 mmol/L (98-108); Glomerular Filtration Rate 17 (60-); Glucose, Blood 53 mg/dL (70-99); Magnesium, Blood 2.3 mg/dL (1.6-2.4); Phosphorus, Blood 5.8 mg/dL (2.5-4.9); Potassium, Blood 4.8 mmol/L (3.5-5.5); Sodium, Blood 137 mmol/L (136-145)
--- NOTE | 2022-01-31 10:10 | NUR ---
WOUND DRESSING CHANGED PER ORDERS. PT TOLERATED WELL. NEXT CHANGE SATURDAY 02/10
--- NOTE | 2022-01-31 17:47 | NUR ---
SHIFT SUMMARY; ASSUMED CARE AT 0930, REPORT FROM ROSA Saunders RN. A/A/OX4. MOVES AROUND ON BED NEEDED, REPOSITIONED Q2. WORKED WITH PHYSICAL THERAPY TODAY, COOPERATIVE WITH CARE. 1L FLUID RESTRICTION. MEDS PER EMAR. NO ACUTE CHANGES, WILL CONTINUE TO MONITOR AND TREAT UNTIL CHANGE OF SHIFT.
--- NOTE | 2022-02-01 05:32 | NUR ---
SHIFT SUMMARY NO ACUTE CHANGES DURING THIS SHIFT. PATIENT REMAINED ON CPAP THROUGH THE NIGHT WITH 2L O2 BLEED IN. VITALS STABLE. MEDICATING PER EMAR FOR PAIN. PATIENT ABLE TO MAKE NEEDS KNOWN. ANSWERING QUESTIONS APPROPRIATELY. OCCASIONALLY FORGETFUL AND CONFUSED WITH TIME. LEFT HEEL PROTECTOR DRESSING CHANGED. RIGHT HEEL DRESSING C/D/I. BILATERAL HEELS FLOATED. MEDICATED CREAM APPLIED TO RASH ON LEGS/BUTTOCKS. NO URINE OUTPUT THIS SHIFT. PERICARE DONE AND POWDER APPLIED. REPOSITIONING Q2HRS. THIS RN WILL CONTINUE TO MONITOR UNTIL SHIFT CHANGE AT 0700.
[2022-02-01 10:09] LABS: Hematocrit 24.3 % (33.0-51.0); Hemoglobin 7.9 g/dL (11.5-16.0)
[2022-02-01 10:37] LABS: Albumin, Blood 2.4 g/dL (3.4-5.0); Anion Gap 12 mmol/L (6-16); Blood Urea Nitrogen 70 mg/dL (8-24); Bun/Creatinine Ratio 17.2 (12.0-20.0); CO2, Blood 22 mmol/L (21-32); Calcium, Blood 7.6 mg/dL (8.5-10.1); Chloride, Blood 102 mmol/L (98-108); Creatinine, Blood 4.06 mg/dL (0.40-1.00); Glomerular Filtration Rate 13 (60-); Glucose, Blood 280 mg/dL (70-99); Magnesium, Blood 1.9 mg/dL (1.6-2.4); Phosphorus, Blood 6.4 mg/dL (2.5-4.9); Potassium, Blood 4.6 mmol/L (3.5-5.5); Sodium, Blood 136 mmol/L (136-145)
--- NOTE | 2022-02-01 17:55 | NUR ---
SHIFT SUMMARY; ASSUMED CARE AT 0700. A/A/0X3. ASSISTED WITH REPOSITIONING FREQUENTLY THROUGHOUT DAY. IN DIAYLSIS FROM APPROX [id number]. SAT IN CHAIR IN AFTERNOON FOR SEVERAL HOURS, TOLERATED WELL. HEEL PAD MEPILEX TO LEFT HEEL, DESENEX POWDER TO ALY AREA PER EMAR. VSS, NO ACUTE MEDICAL CHANGES DURING SHIFT. WILL CONTINUE TO MONITOR AND TREAT UNTIL CHANGE OF SHIFT.
--- NOTE | 2022-02-01 23:01 | NUR ---
CARE ASSUMPTION: PATIENT IN CHAIR TALKING ON PHONE. DURING VS CHECK IT IS NOTED PATIENT IS NOT WEARING O2. PATIENT 02 SATS MID-70S UPON REATTACHING BIOX, O2 NC APPLIED AT 8L, SATS RETURNED TO 90S. PATIENT REPORTS FEELING LESS NAUSEOUS AFTER O2 SATS RETURN TO NORMAL. MEDICATED PER EMAR. PATIENT IN MICHELLE WITH CPAP IN PLACE AT THIS TIME. CALL LIGHT IN REACH.
--- NOTE | 2022-02-02 05:29 | NUR ---
SHIFT SUMMARY: PATIENT VSS ON CPAP OR 2L NC. PATIENT REPORTS FEELING MUCH BETTER AND "DON'T HAVE A SORE THROAT ANYMORE." MEDICATED PER EMAR. PATIENT MOVED BY LIFT FROM CHAIR TO BED. BED LOW WITH CALL LIGHT IN REACH.
[2022-02-02 08:18] LABS: Hematocrit 27.1 % (33.0-51.0); Hemoglobin 8.5 g/dL (11.5-16.0)
[2022-02-02 08:39] LABS: Albumin, Blood 2.9 g/dL (3.4-5.0); Anion Gap 9 mmol/L (6-16); Blood Urea Nitrogen 50 mg/dL (8-24); Bun/Creatinine Ratio 15.1 (12.0-20.0); CO2, Blood 28 mmol/L (21-32); Calcium, Blood 9.2 mg/dL (8.5-10.1); Chloride, Blood 99 mmol/L (98-108); Creatinine, Blood 3.32 mg/dL (0.40-1.00); Glomerular Filtration Rate 17 (60-); Glucose, Blood 166 mg/dL (70-99); Magnesium, Blood 2.2 mg/dL (1.6-2.4); Potassium, Blood 4.8 mmol/L (3.5-5.5); Sodium, Blood 136 mmol/L (136-145)
--- NOTE | 2022-02-02 17:47 | NUR ---
SHIFT SUMMARY; ASSUMED CARE AT 0700. A/A/OX4 DURING SHIFT. VSS, MEDICATIONS PER EMAR. 4L 02 DURING SHIFT TO MAINTAIN SATS OF 92-94%. BED BATH COMPLETE TODAY. Q2 REPOSITIONING. MEPILEX TO HEEL AND COCCYX. RED BUMPS NOTED TO BE UNCHANGED TO LEFT BUTTOX AREA FROM PREVIOUS SHIFTS. LIFT USED TO TRANSFER TO RECLINER CHAIR. SAT IN RECLINER CHAIR FOR MOST OF AFTERNOON. WILL CONTINUE TO MONITOR AND TREAT UNTIL CHANGE OF SHIFT.
--- NOTE | 2022-02-02 21:42 | NUR ---
CARE ASSUMPTION: ASSUMED CARE AT 1915. PATIENT IN CHAIR WITH [address] VS WNL FOR PATIENT. CBG 159. STATES SHE FEELS SOB AND IS CONCERNED SHE HAS PNEUMONIA. LUNG SOUNDS CLEAR T/O. PATIENT REPORTS COUGH BUT NONE NOTED. MEDICATED PER EMAR. CALL LIGHT IN REACH.
[2022-02-03 04:31] LABS: Hematocrit 25.4 % (33.0-51.0)
[2022-02-03 04:55] LABS: Albumin, Blood 2.9 g/dL (3.4-5.0); Anion Gap 9 mmol/L (6-16); Blood Urea Nitrogen 66 mg/dL (8-24); Bun/Creatinine Ratio 16.4 (12.0-20.0); CO2, Blood 28 mmol/L (21-32); Calcium, Blood 9.1 mg/dL (8.5-10.1); Chloride, Blood 99 mmol/L (98-108); Creatinine, Blood 4.03 mg/dL (0.40-1.00); Glomerular Filtration Rate 13 (60-); Glucose, Blood 65 mg/dL (70-99); Magnesium, Blood 2.4 mg/dL (1.6-2.4); Phosphorus, Blood 5.6 mg/dL (2.5-4.9); Potassium, Blood 5.2 mmol/L (3.5-5.5); Sodium, Blood 136 mmol/L (136-145)
--- NOTE | 2022-02-03 05:12 | NUR ---
SHIFT SUMMARY: PATIENT A&O X3, LUNGS SOUND CLEAR T/O, VS WNL FOR PATIENT. MEDICATED PER EMAR. PATIENT SLEPT IN BED WITH CPAP IN PLACE FROM 0000 TO TIME OF NOTE. NO ADVERSE EVENTS THIS SHIFT. LEFT WRIST IV PATENT. BED LOW WITH CALL LIGHT IN REACH. WILL CONTINUE TO MONITOR UNTIL REPORT TO DAY RN.
--- NOTE | 2022-02-03 07:45 | NUR ---
ASSUMED CARE: REPORT RECEIVED FROM KRISTI VARGAS. ASSUMED CARE OF THIS PT AT APPROX 0700. ON ASSESSMENT, THE PT IS RESTING QUIETLY & TOLERATING CPAP WELL. SHE AWAKENS EASILY TO VERBAL STIMULUS & IS ALERT/ ORIENTED AT THAT TIME. SHE DOES HAVE SOME EXPRESSIVE APHASIA W/ DIFFICULTY FINDING THE RIGHT WORDS AT TIMES. LS ARE DIM IN BASES, PT ON 4L NC CURRENTLY W/ O2 SATS > 88% ONCE CPAP REMOVED. SHE DOES REQUIRE REMINDERS TO TAKE SLOW DOWN & BREATHE DEEPLY WHEN TALKING OR EATING. NO TELE MONITOR IN PLACE, PT MEDICAL STATUS. VSS. NO GI COMPLAINTS, TOLERATES PO INTAKE WELL. ATTENDS IN PLACE FOR URINARY INCONTINENCE. SKIN CONDITION OVERALL FRAGILE, POOR. MULTIPLE WOUNDS T/O & NEW RASH ON PT's BUTTOCKS, SOLUTION DEVELOPER INVOLVED W/ PT CARE. WILL CONTINUE TO MONITOR & UPDATE NEEDED.
--- NOTE | 2022-02-03 09:30 | NUR ---
DIALYSIS: PT OUT OF ROOM VIA BED AT APPROX 0930 FOR DIALYSIS.
[2022-02-03 09:50] LABS: BASOPHILS ABSOLUTE AUTO 0.06 K/mm3 (0.00-0.23); BASOPHILS PERCENT AUTO 0 % (0-2); EOSINOPHILS ABSOLUTE AUTO 0.51 K/mm3 (0.00-0.68); EOSINOPHILS PERCENT AUTO 3 % (0-6); Hematocrit 25.6 % (33.0-51.0); Hemoglobin 8.3 g/dL (11.5-16.0); IMMATURE GRAN ABSOLUTE AUTO 0.08 K/mm3 (0.00-0.10); IMMATURE GRAN PERCENT AUTO 1 % (0-1); LYMPHOCYTES ABSOLUTE AUTO 0.41 K/mm3 (0.84-5.20); LYMPHOCYTES PERCENT AUTO 3 % (21-46); MONOCYTES ABSOLUTE AUTO 1.26 K/mm3 (0.16-1.47); MONOCYTES PERCENT AUTO 8 % (4-13); Mean Corpuscular HGB 31.1 pg (26.0-34.0); Mean Corpuscular HGB Conc 32.4 g/dL (31.5-36.5); Mean Corpuscular Volume 96 fL (80-100); Mean Platelet Volume 9.3 fL (9.1-12.4); NEUTROPHILS ABSOLUTE AUTO 13.27 K/mm3 (1.96-9.15); NEUTROPHILS PERCENT AUTO 85 % (41-73); Platelet Count 432 K/mm3 (150-400); RDW Coefficient Variation 15.3 % (11.7-14.2); RDW Standard Deviation 53.8 fL (35.1-46.3); Red Blood Cell Count 2.67 M/mm3 (3.80-5.20); White Blood Cell Count 15.59 K/mm3 (4.00-11.30)
--- NOTE | 2022-02-03 14:09 | NUR ---
R. HEEL DRESSING CHANGED PER ORDER. R HEEL IS SHOWING SIGNS OF INCREASED PRESSURE, WOULD RECOMMEND FLOATING HEEL AT ALL TIMES. NEXT CHANGE DUE WED. 02/05/22. PUSTLULES ON L GLUT CULTURED AND BACITRACIN ORDERED PER TELEPHONE ORDER FROM DR. BERMUDEZ
--- NOTE | 2022-02-03 18:17 | NUR ---
SHIFT SUMMARY: NO ACUTE CHANGES SINCE PRIOR UPDATES. PT REMAINS AT BASELINE MENTATION, REQUIRING REMINDERS AT TIMES. ON 4L NC W/ O2 SATS > 90% ON AVG. NO TELE MONITOR R/T MEDICAL STATUS. VSS. NO GI COMPLAINTS, UP TO CHAIR FOR DINNER. INCONTINENT OF BLADDER, ATTENDS IN PLACE. SKIN OVERALL FRAGILE, Q2H REPOSITIONING TO MAINTAIN SKIN INTEGRITY. WILL CONTINUE TO MONITOR & REPORT OFF TO ONCOMING RN.
--- NOTE | 2022-02-03 23:13 | NUR ---
CARE ASSUMPTION: ASSUMED CARE AT START OF SHIFT. PATIENT IN CHAIR WITH NC IN PLACE AND O2 SATS 88-90%. MOVED PATIENT TO BED, MEDICATED PER EMAR, AND CHANGED SOILED ATTENDS. PATIENT ENDORSES "PAIN ALL OVER" AND SOB. CPAP IN PLACE IMPROVED O2 SATURATION TO 90S. BED LOW WITH CALL LIGHT IN PLACE.
--- NOTE | 2022-02-04 05:08 | NUR ---
SHIFT SUMMARY: PATIENT VS WNL FOR PATIENT ON 3L CPAP. PATIENT SLEPT WELL IN BED WITH CPAP IN PLACE. MEDICATED PER EMAR. ATTENDS CHANGED NEEDED. IV PATENT. R FOOT DRESSING C/D/I. FEET ELEVATED. BED LOW WITH CALL LIGHT IN REACH.
[2022-02-04 08:41] LABS: BASOPHILS ABSOLUTE AUTO 0.05 K/mm3 (0.00-0.23); BASOPHILS PERCENT AUTO 0 % (0-2); EOSINOPHILS ABSOLUTE AUTO 0.63 K/mm3 (0.00-0.68); EOSINOPHILS PERCENT AUTO 5 % (0-6); Hematocrit 24.8 % (33.0-51.0); IMMATURE GRAN ABSOLUTE AUTO 0.05 K/mm3 (0.00-0.10); IMMATURE GRAN PERCENT AUTO 0 % (0-1); LYMPHOCYTES ABSOLUTE AUTO 0.45 K/mm3 (0.84-5.20); LYMPHOCYTES PERCENT AUTO 3 % (21-46); MONOCYTES ABSOLUTE AUTO 1.34 K/mm3 (0.16-1.47); MONOCYTES PERCENT AUTO 10 % (4-13); Mean Corpuscular HGB 31.1 pg (26.0-34.0); Mean Corpuscular HGB Conc 32.3 g/dL (31.5-36.5); Mean Corpuscular Volume 97 fL (80-100); Mean Platelet Volume 9.3 fL (9.1-12.4); NEUTROPHILS ABSOLUTE AUTO 10.63 K/mm3 (1.96-9.15); NEUTROPHILS PERCENT AUTO 81 % (41-73); Platelet Count 395 K/mm3 (150-400); RDW Coefficient Variation 14.9 % (11.7-14.2); RDW Standard Deviation 53.1 fL (35.1-46.3); Red Blood Cell Count 2.57 M/mm3 (3.80-5.20); White Blood Cell Count 13.15 K/mm3 (4.00-11.30)
[2022-02-04 08:59] LABS: Albumin, Blood 2.6 g/dL (3.4-5.0); Anion Gap 9 mmol/L (6-16); Blood Urea Nitrogen 58 mg/dL (8-24); CO2, Blood 29 mmol/L (21-32); Calcium, Blood 8.9 mg/dL (8.5-10.1); Chloride, Blood 98 mmol/L (98-108); Creatinine, Blood 3.62 mg/dL (0.40-1.00); Glomerular Filtration Rate 15 (60-); Glucose, Blood 427 mg/dL (70-99); Magnesium, Blood 2.5 mg/dL (1.6-2.4); Phosphorus, Blood 5.3 mg/dL (2.5-4.9); Potassium, Blood 4.9 mmol/L (3.5-5.5); Sodium, Blood 136 mmol/L (136-145)
--- NOTE | 2022-02-04 17:49 | NUR ---
SHIFT SUMMARY; ASSUMED CARE AT 0700. A/A/OX4 WITH INTERMITANT CONFUSION. UP TO CHAIR FOR MOST OF DAY. REPOSITIONED Q2. OINTMENT APPLIED TO LEFT BUTTOX AREA PER EMAR. LEFT HEEL PAD AND RIGHT FOOT DRESSING IN PLACE. PLEASANT AND COOPERATIVE WITH CARE. NO ACUTE MEDICAL CHANGES, WILL CONTINUE TO MONITOR AND TREAT UNTIL CHANGE OF SHIFT.
--- NOTE | 2022-02-05 07:15 | NUR ---
DIALYSIS NOTE TAIL TRIMMER IN TO DRAW LABS FROM HD CATH AT REQUEST OF BEDSIDE RN AND LAB AND WITH APPROVAL FROM .
--- NOTE | 2022-02-05 07:16 | NUR ---
FURNITURE DETAILER SUMMARY ASSUMED CARE OF PT AT 1900. SHE IS ALERT AND ORIENTED X2-3, WHICH IS BASELINE. PT REPORTS PAIN "EVERYWHERE" AND MEDICATED X2. SHE CONTINUES TO REQUEST FLUIDS DESPITE BEING INFORMED OF HER FLUID RESTRICTION. PT HAD SOME DESATURATION TONIGHT, REQUIRING INCREASE OF CPAP BLEED-IN TO 6L. SHE IS INCONTINENT, ATTENDS IN PLACE. PT HAS WOUNDS TO BUTTOCKS AND AN ANTIBIOTIC CREAM WAS APPLIED. CBG CONTROLLED WITH LONG-ACTING INSULIN.
[2022-02-05 07:23] LABS: BASOPHILS ABSOLUTE AUTO 0.07 K/mm3 (0.00-0.23); BASOPHILS PERCENT AUTO 1 % (0-2); EOSINOPHILS ABSOLUTE AUTO 0.68 K/mm3 (0.00-0.68); EOSINOPHILS PERCENT AUTO 6 % (0-6); Hematocrit 22.1 % (33.0-51.0); Hemoglobin 7.1 g/dL (11.5-16.0); IMMATURE GRAN ABSOLUTE AUTO 0.06 K/mm3 (0.00-0.10); IMMATURE GRAN PERCENT AUTO 1 % (0-1); LYMPHOCYTES ABSOLUTE AUTO 0.55 K/mm3 (0.84-5.20); LYMPHOCYTES PERCENT AUTO 5 % (21-46); MONOCYTES ABSOLUTE AUTO 1.24 K/mm3 (0.16-1.47); MONOCYTES PERCENT AUTO 10 % (4-13); Mean Corpuscular HGB 30.7 pg (26.0-34.0); Mean Corpuscular HGB Conc 32.1 g/dL (31.5-36.5); Mean Corpuscular Volume 96 fL (80-100); Mean Platelet Volume 9.3 fL (9.1-12.4); NEUTROPHILS ABSOLUTE AUTO 9.51 K/mm3 (1.96-9.15); NEUTROPHILS PERCENT AUTO 79 % (41-73); Platelet Count 394 K/mm3 (150-400); RDW Coefficient Variation 14.7 % (11.7-14.2); RDW Standard Deviation 51.7 fL (35.1-46.3); Red Blood Cell Count 2.31 M/mm3 (3.80-5.20); White Blood Cell Count 12.11 K/mm3 (4.00-11.30)
[2022-02-05 07:42] LABS: Albumin, Blood 2.4 g/dL (3.4-5.0); Anion Gap 11 mmol/L (6-16); Blood Urea Nitrogen 73 mg/dL (8-24); Bun/Creatinine Ratio 16.7 (12.0-20.0); CO2, Blood 27 mmol/L (21-32); Calcium, Blood 8.4 mg/dL (8.5-10.1); Chloride, Blood 98 mmol/L (98-108); Creatinine, Blood 4.37 mg/dL (0.40-1.00); Glomerular Filtration Rate 12 (60-); Glucose, Blood 321 mg/dL (70-99); Magnesium, Blood 2.4 mg/dL (1.6-2.4); Phosphorus, Blood 6.7 mg/dL (2.5-4.9); Potassium, Blood 5.9 mmol/L (3.5-5.5); Sodium, Blood 136 mmol/L (136-145)
--- NOTE | 2022-02-05 12:27 | NUR ---
R HEEL IS SHOWING IMPROVEMENT. DC HYROFERA BLUE. WOUND CLEANSED WITH SKINTEGRITY, RINSED NS, XEROFORM TO WOUND BED, COVERED EXU-DRY, ROLLED GAUZE. HIDE HOUSE SUPERVISOR TO CHANGE THIS THURSDAY AND THURSDAY. WC RN WILL RETURN THURSDAY
--- NOTE | 2022-02-05 17:51 | NUR ---
SHIFT SUMMARY; ASSUMED CARE AT 0700. A/A/OX3. SOB WHEN ASSUMING CARE. 10L VIA NC WITH SATS LOW 80'S. L/S COARSE T/O. PLACED ON CPAP BY RT. DIALYSIS COMPLETE TODAY. L/S AND SATS IMPROVED, 2.5L REMOVED DURING DIAYLSIS. 7L VIA NC FOR REMAINDER OF SHIFT. BED BATH TODAY, SAT IN RECLINER FOR AFTERNOON. FREQUENT REPOSITIONING. MEDS PER EMAR. WILL CONTINUE TO MONITOR AND TREAT UNTIL CHANGE OF SHIFT.
--- NOTE | 2022-02-06 01:08 | NUR ---
PT COMPLAINING OF AN 8/10 HEADACHE "FOR A LONG TIME". BP CHECKED AND WAS NOTED TO BE ELEVATED, GIVEN MIDNIGHT BP MEDICATION. CBG CHECKED AND WAS 160. PT REQUESTING NORCO BUT GIVEN PRN TYLENOL PER MEDICATION SCHEDULE.
--- NOTE | 2022-02-06 05:23 | NUR ---
CONTACTED NIGHT RESIDENT REGARDING PT BP OF 191/89 AND COMPLAINTS OF "POUNDING HEADACHE." RESIDENT RECOMMENDING PT'S SCHEDULED BP MEDICATION, PRN PAIN MEDICATION, PRN ANXIETY MEDICATION, AND SOME MILK OF MAG TO ASSIST WITH PT CONSTIPATION. WILL RECHECK BP IN 20 MINS AND CONTACT RESIDENT IF NOT IMPROVED.
--- NOTE | 2022-02-06 06:26 | NUR ---
TRANSPORTATION ECONOMICS TEACHER SUMMARY ASSUMED CARE OF PT AT 1900. SHE WAS MEDICATED X2 FOR PAIN. SHE WOKE UP THIS MORNING WITH COMPLAINTS OF RUELAS AND WAS NOTED TO HAVE BP OF 190S SYSTOLIC OVER 90S DIASTOLIC. SHE WAS GIVEN SCHEDULED BP MEDS AND PRN PAIN AND ANXIETY MEDICATIONS WITH IMPROVEMENT IN BOTH BP AND HEADACHE. PT IS TO HAVE DIALYSIS TODAY. SHE REPORTS IMPROVEMENT IN HER BREATHING FOLLOWING DIALYSIS. PT HAS BEEN >92% ON HER CPAP WITH 2L BLEED-IN AND HAS BEEN TITRATED DOWN TO 4L BY NC WHEN AWAKE. PT CONTINUES TO REQUEST FLUIDS DESPITE BEING INFORMED OF HER FLUID RESTRICTION. PT'S BUTTOCK AREA APPEARS TO BE IMPROVING, THOUGH SHE STILL HAS MANY SPOTS - CREAM APPLIED AT TIME OF MOVING PT TO BED. NO ACUTE EVENTS THIS SHIFT.
--- NOTE | 2022-02-06 07:36 | NUR ---
PT TO DIALYSIS VIA RECLINER AND ON 4L NC.
[2022-02-06 08:11] LABS: Hematocrit 23.3 % (33.0-51.0); Hemoglobin 7.5 g/dL (11.5-16.0)
[2022-02-06 08:35] LABS: Albumin, Blood 2.5 g/dL (3.4-5.0); Anion Gap 9 mmol/L (6-16); Blood Urea Nitrogen 52 mg/dL (8-24); Bun/Creatinine Ratio 14.6 (12.0-20.0); CO2, Blood 28 mmol/L (21-32); Calcium, Blood 8.5 mg/dL (8.5-10.1); Chloride, Blood 98 mmol/L (98-108); Creatinine, Blood 3.55 mg/dL (0.40-1.00); Glomerular Filtration Rate 15 (60-); Glucose, Blood 238 mg/dL (70-99); Magnesium, Blood 2.1 mg/dL (1.6-2.4); Phosphorus, Blood 6.3 mg/dL (2.5-4.9); Potassium, Blood 5.3 mmol/L (3.5-5.5); Sodium, Blood 135 mmol/L (136-145)
--- NOTE | 2022-02-06 18:12 | NUR ---
SHIFT SUMMARY PT A/OX3, CONFUSED AT TIMES. PT BP ELEVATED THIS AM, PT TO DIALYSIS EARLY THIS MORNING, 2500 ML REMOVED. BP STABLE POST DIALYSIS. OTHER VSS THROUGHOUT SHIFT WITH 02 SATS >94% ON 4L NC. NO REPORT OF CHEST PAIN/PRESSURE THROUGHOUT SHIFT. NO REPORT OF SOB/DYSPNEA THROUGHOUT SHIFT. BLOOD SUGARS 180-220'S THROUGHOUT SHIFT, TREATED PER EMAR. PT FAMILY ASKED IF THEY COULD BRING "THANKSGIVING FOOD" FOR PT. THIS RN EXPLAINED THAT PT IS ON STRICT CARB COUNT FOR INSULIN DOSAGING. PT FAMILY ASKED ABOUT A PIECE OF CAKE. THIS RN EXPLAINED TO FAMILY THAT PT GLUCOSE LEVELS ARE VERY FRAGILE AND THAT WE CANNOT CALCULATE THE CARBS IN THE PIECE OF CAKE WITHOUT THE BOX FOR THE CAKE AND THE FROSTING. PT KEPT REPEATING "BUT IT IS ALL SUGAR FREE." THIS RN EXPLAINED THAT THERE COULD STILL CARBS IN THE INGREDIENTS. PT MOM AGREED AND TOLD PT THAT HER BLOOD SUGARS HAVE BEEN BETTER LATELY AND "NOT TO MESS WITH THEM."
--- NOTE | 2022-02-07 06:03 | NUR ---
INVESTOR RELATIONS SPECIALIST SUMMARY PT MEDICATED FOR HER PAIN WITH NORCO. SHE DID HAVE A SMALL HARD BM WHEN PLACED IN BED AND ATTENDS CHANGED. SHE HAS BEEN WEARING HER CPAP MORE TONIGHT BUT REPORTS INTERMITTENT FEELINGS OF "LIGHTHEADEDNESS" AND REQUESTS BEING PUT ON HER NC. CPAP PLACED BACK ON WHEN PT FALLS ASLEEP. BP HAS REMAINED HIGH AND PT IS MEDICATED WITH HER SCHEDULED BP MEDICATIONS. THE WOUNDS TO HER BUTTOCK AREA APPEAR TO BE IMPROVING WITH OINTMENT APPLICATION. PT CONTINUES TO REQUEST FLUIDS DESPITE BEING INFORMED OF HER FLUID RESTRICTION.
[2022-02-07 10:20] LABS: Hematocrit 24.6 % (33.0-51.0); Hemoglobin 7.9 g/dL (11.5-16.0)
[2022-02-07 10:55] LABS: Albumin, Blood 2.6 g/dL (3.4-5.0); Anion Gap 11 mmol/L (6-16); Blood Urea Nitrogen 60 mg/dL (8-24); Bun/Creatinine Ratio 18.6 (12.0-20.0); CO2, Blood 27 mmol/L (21-32); Calcium, Blood 8.9 mg/dL (8.5-10.1); Chloride, Blood 96 mmol/L (98-108); Creatinine, Blood 3.22 mg/dL (0.40-1.00); Glomerular Filtration Rate 17 (60-); Glucose, Blood 421 mg/dL (70-99); Magnesium, Blood 2.2 mg/dL (1.6-2.4); Phosphorus, Blood 6.3 mg/dL (2.5-4.9); Potassium, Blood 5.1 mmol/L (3.5-5.5); Sodium, Blood 134 mmol/L (136-145)
--- NOTE | 2022-02-07 17:47 | NUR ---
SHIFT SUMMARY PT A/OX3, CONFUSED AT TIMES. PT BP ELEVATED, TREATED PER EMAR. PT O2 SATS DROPPED A COUPLE OF TIMES TO THE HIGH 70'S WHEN NC FELL OUT OF PT NOSE. SATS RETURNED QUICKLY TO THE 90'S ONCE NC WAS REAPPLIED. OTHER VSS THROUGHOUT SHIFT. NO REPORT OF CHEST PAIN/PRESSURE THROUGHOUT SHIFT. PT DID REPORT SOME SOB MID DAY AND REQUESTED TO GO ON HER CPAP FOR SOME SLEEP, CPAP APPLIED, SATS REMAINED IN THE 90'S AT THIS POINT. PT MOVED FROM BED TO CHAIR VIA LOFT, TOLRATED WELL.
--- NOTE | 2022-02-08 06:04 | NUR ---
ASSUMED CARE OF PT AT 1900. HER CBG WAS 80 AT TIME OF PM MEDICATION SO PT WAS GIVEN CHEESE AND CRACKERS. PT IS NONCOMPLIANT WITH HER FLUID RESTRICTION, CONSISTENTLY REQUESTING ICE CHIPS DESPITE EDUCATION. HER SATURATIONS HAVE BEEN IMPROVED TODAY AND PT WAS SATTING >90% ON 2 L BY NV. SHE WAS PLACED ON CPAP AT HS. PT AGREEABLE WITH APPLICATION OF ABX OINTMENT. SHE REPORTS SOME PAIN TO HER ABDOMEN AND CONTINUED CONSTIPATION SO WAS GIVEN A SUPPOSITORY. PT BP ELEVATED IN THE 190S SYSTOLIC THIS AM. MEDICATED FOR ANXIETY AND PAIN PER MAY. SHE WOKE UP CONFUSED, BELIEVING SHE WAS "OUTSIDE" AND "ON THE GROUND" AFTER TAKING HER CPAP MASK OFF. PT PLACED BACK ON NV AND REORIENTED TO HER SITUATION. PT CALMED AFTER BEING TALKED DOWN AND GIVEN HER MORNING MEDICATION. VSS.
[2022-02-08 08:50] LABS: Hematocrit 24.7 % (33.0-51.0); Hemoglobin 7.8 g/dL (11.5-16.0)
[2022-02-08 09:06] LABS: Albumin, Blood 2.6 g/dL (3.4-5.0); Anion Gap 13 mmol/L (6-16); Blood Urea Nitrogen 82 mg/dL (8-24); Bun/Creatinine Ratio 19.9 (12.0-20.0); CO2, Blood 26 mmol/L (21-32); Calcium, Blood 9.2 mg/dL (8.5-10.1); Chloride, Blood 96 mmol/L (98-108); Creatinine, Blood 4.13 mg/dL (0.40-1.00); Glomerular Filtration Rate 13 (60-); Glucose, Blood 342 mg/dL (70-99); Magnesium, Blood 2.5 mg/dL (1.6-2.4); Phosphorus, Blood 7.6 mg/dL (2.5-4.9); Potassium, Blood 5.6 mmol/L (3.5-5.5); Sodium, Blood 135 mmol/L (136-145)
--- NOTE | 2022-02-08 17:30 | NUR ---
SHIFT SUMMARY NO ACUTE CHANGES THIS SHIFT. VSS. PT TO DIALYSIS AT START OF SHIFT. HAD LARGE BM THIS AFTERNOON. C/D ATTENDS IN PLACE. PT SPOKE TO FAMILY ON PHONE PART OF SHIFT. MOSTLY UP IN CHAIR WATCHING TV. CALL LIGHT IN REACH.
--- NOTE | 2022-02-08 19:15 | NUR ---
ASSUMED CARE OF PT @1900 FROM SAVAGE Caldera RN. PT UP IN CHAIR EATING DINNER. A&O X4. MAKES NEEDS KNOWN AND ANSWERS QUESTIONS APPROPRIATELY. 2L O2 VIA NC. RR 16, SPO2 >92%. HR 60'S, SBP 150'S.
--- NOTE | 2022-02-09 00:30 | NUR ---
PT CBG 71, GIVEN APPLE JUICE, ANSWERING QUESTIONS APPROPRIETLY.
--- NOTE | 2022-02-09 05:26 | NUR ---
SUMMARY: NO ACUTE EVENTS OVERNIGHT. CBG WAS 71 AT MIDNIGHT CHECK. APPLE JUICE GIVEN WITH MIDNIGHT MEDS. PT SLEPT AND WORE CPAP MOST OF THE NIGHT. SPO2 >92% THROUGHOUT SHIFT. REPEATEDLY ASKED FOR SNACKS WHEN AWAKE. HR 60'S, SBP 150'S, MAP >65. ATTENDS IN PLACE. NO BM THIS SHIFT. SKIN ASSEMENT REMAINS UNCHANGED.
[2022-02-09 07:28] LABS: Hematocrit 23.8 % (33.0-51.0); Hemoglobin 7.8 g/dL (11.5-16.0)
[2022-02-09 07:43] LABS: Albumin, Blood 2.6 g/dL (3.4-5.0); Anion Gap 8 mmol/L (6-16); Blood Urea Nitrogen 59 mg/dL (8-24); Bun/Creatinine Ratio 17.6 (12.0-20.0); CO2, Blood 29 mmol/L (21-32); Calcium, Blood 8.9 mg/dL (8.5-10.1); Chloride, Blood 100 mmol/L (98-108); Creatinine, Blood 3.36 mg/dL (0.40-1.00); Glomerular Filtration Rate 16 (60-); Glucose, Blood 76 mg/dL (70-99); Magnesium, Blood 2.3 mg/dL (1.6-2.4); Phosphorus, Blood 6.5 mg/dL (2.5-4.9); Potassium, Blood 5.1 mmol/L (3.5-5.5); Sodium, Blood 137 mmol/L (136-145)
--- NOTE | 2022-02-09 18:15 | NUR ---
shift summary no acute changes this shift. pt a&o. vss. MD Rizo in room this am to talk to pt about learning carb count and administering insulin. Worked with pt each meal to add up carbs from plate and divide by emar. Pt administered own insulin shot w/ supervision. pt up in chair all of shift. call light in reach.
--- NOTE | 2022-02-10 05:43 | NUR ---
SHIFT SUMMARY PT A&Ox4, CALLS AND COMMUNICATES NEEDS APPROPRIATELY. SpO2> 92% ROTATING BETWEEN 2L VIA NC AND CPAP. BP ELEVATED, MANAGING WITH SCHEDULED BP MEDICATIONS PER EMAR. PT REMAINED MED NO TELE STATUS. DENIES SOB AND CP/PRESSURE. NO ACUTE EVENTS THIS SHIFT, WILL REPORT TO DAY SHIFT RN.
[2022-02-10 10:49] LABS: Hematocrit 24.8 % (33.0-51.0); Hemoglobin 8.1 g/dL (11.5-16.0)
[2022-02-10 11:29] LABS: Albumin, Blood 2.8 g/dL (3.4-5.0); Anion Gap 6 mmol/L (6-16); Blood Urea Nitrogen 39 mg/dL (8-24); Bun/Creatinine Ratio 17.4 (12.0-20.0); CO2, Blood 30 mmol/L (21-32); Calcium, Blood 8.7 mg/dL (8.5-10.1); Chloride, Blood 99 mmol/L (98-108); Creatinine, Blood 2.24 mg/dL (0.40-1.00); Glomerular Filtration Rate 27 (60-); Glucose, Blood 167 mg/dL (70-99); Magnesium, Blood 2.1 mg/dL (1.6-2.4); Phosphorus, Blood 3.7 mg/dL (2.5-4.9); Potassium, Blood 3.6 mmol/L (3.5-5.5); Sodium, Blood 135 mmol/L (136-145)
--- NOTE | 2022-02-10 15:27 | NUR ---
R HEEL DRESSING CHANGED PER ORDER. PT TOLERATED WELL. WOUND MARGIN IMPROVED. NEW PHOTO AND ASSESSMENT IN HARD CHART
--- NOTE | 2022-02-10 18:01 | NUR ---
PT SUMMARY: PT HAD DIALYSIS TODAY TOLERATED WELL. BP ELEVATED PRIOR TO DIALYSIS SBP NOW 120-130'S, HRR 60-70'S, SATS ABOVE 90% ON 2L OF O2, AFEBRILE. WOUND CARE NURSE CAME IN TO REDRESS HEEL DRESSING ALSO TO RE EVALUATE STAPH INFECTION ON BUTTOCKS, PT HAD RAISED BUMPS ON OUTER THIGH THAT HAS WHITE SLOUGH IN THE MIDDLE NOT DRAINING ANY PUS, BACITRACIN PER ORDER. PT OFFERED BED BATH AGREED AFTER LUNCH BUT THEN REFUSED WHEN PT STARTED TALKING ON THE PHONE. PAIN MEDS GIVEN TWICE FOR THE SHIFT PT C/O FEET PAIN 10/23 AND WAS EFFEECTIVE. NO OTHER ISSUES REPORTED PT HAS BEEN UP IN THE CHAIR ALL SHIFT, REPOSITIONED Q2HRS ALTERNATING PILLOWS ON BOTH SIDE. PT EDUCATED HOW TO DO CARB COUNT ALSO PT HAS BEEN ADMINISTERING INSULIN SUPERVISED AND PT WAS ABLE TO DEMONSTRATE. PT HAS BEEN COOPERATIVE WITH CARES, ABLE TO MAKE NEEDS KNOWN, WILL REPORT TO ONCOMING SHIFT
--- NOTE | 2022-02-11 06:09 | NUR ---
SHIFT SUMMARY A/OX3, FORGETFUL AT TIMES. C/O BILATERAL FOOT PAIN, MEDICATED PER EMAR X1. PERMACATH TO RCW. VSS, NO ACUTE CHANGES AT THIS TIME. BED IN LOWEST POSITION WITH CALL LIGHT IN REACH. WILL CONTINUE TO MONITOR AND REPORT TO ONCOMING RN.
[2022-02-11 09:38] LABS: Hematocrit 28.7 % (33.0-51.0)
[2022-02-11 09:54] LABS: Magnesium, Blood 2.4 mg/dL (1.6-2.4)
[2022-02-11 10:02] LABS: Albumin, Blood 2.8 g/dL (3.4-5.0); Anion Gap 9 mmol/L (6-16); Blood Urea Nitrogen 63 mg/dL (8-24); Bun/Creatinine Ratio 18.2 (12.0-20.0); CO2, Blood 26 mmol/L (21-32); Chloride, Blood 98 mmol/L (98-108); Creatinine, Blood 3.47 mg/dL (0.40-1.00); Glomerular Filtration Rate 16 (60-); Glucose, Blood 390 mg/dL (70-99); Potassium, Blood 5.4 mmol/L (3.5-5.5); Sodium, Blood 133 mmol/L (136-145)
[2022-02-11 10:03] LABS: Phosphorus, Blood 6.8 mg/dL (2.5-4.9)
--- NOTE | 2022-02-11 17:51 | NUR ---
PT SUMMARY: NO ACUTE CHANGE FOR THE SHIFT. REMAINS ON 2L OF O2 SATS KEPT ABOVE 90%, SBP 140-160'S, HRR 60-70'S, AFEBRILE. PT WAS ABLE TO WORK WITH PT/OT PT AMBULATED VIA WALKER AND GAIT BELT TOLERATED WELL. PT RECEIVED A BED BATH FOR THE SHIFT, HAD INCONTINENT VOID X1. ECHO WAS DONE WELL PER ORDER. PAIN MEDS GIVEN X1. REPOSITIONED IN RECLINER FOR COMFORT EGG CRATE WAS PALCED WELL. HEELS FLOATED IN PILLOWS. NO OTHER ISSUES ENCOUNTERED. WILL REPORT TO ONCOMING SHIFT
--- NOTE | 2022-02-12 05:59 | NUR ---
SHIFT SUMMARY NO ACUTE CHANGES T/O SHIFT. HR STABLE. BP STABLE. NO CP OR PRESSURE, OXYGEN SATURATION MAINTAINED ABOVE 92% ON CPAP. SEE RT NOTES FOR SETTINGS. PT REFUSING TO TRANSFER TO BED. CALL LIGHT WITHIN REACH. WILL CONT TO MONITOR UNTIL REPORT GIVEN TO DAYSHIFT RN.
[2022-02-12 09:16] LABS: Hematocrit 25.3 % (33.0-51.0); Hemoglobin 7.9 g/dL (11.5-16.0)
[2022-02-12 09:40] LABS: Albumin, Blood 2.8 g/dL (3.4-5.0); Anion Gap 9 mmol/L (6-16); Blood Urea Nitrogen 101 mg/dL (8-24); Bun/Creatinine Ratio 24.3 (12.0-20.0); CO2, Blood 26 mmol/L (21-32); Chloride, Blood 98 mmol/L (98-108); Creatinine, Blood 4.16 mg/dL (0.40-1.00); Glomerular Filtration Rate 13 (60-); Glucose, Blood 254 mg/dL (70-99); Magnesium, Blood 2.4 mg/dL (1.6-2.4); Phosphorus, Blood 7.6 mg/dL (2.5-4.9); Potassium, Blood 5.7 mmol/L (3.5-5.5); Sodium, Blood 133 mmol/L (136-145)
--- NOTE | 2022-02-12 16:01 | NUR ---
Spiritual Care Visit. Pt. is awake and sitting in her recliner when she welcomes my visit. Pt. is pleasant and verbalizes her progress in her physical therapy. With encouragement and a calming presence give pastoral care. Pt. displays evidence of engagement and awareness. Re-established rapport. Prayed with Pt. Pt. verbalized gratitude for the spiritual care visit.
--- NOTE | 2022-02-12 16:33 | NUR ---
WOUND CARE DRESSING TO R HEEL CHANGED PER ORDER. WOUND MARGINS IMPROVED WITH A HEALTHY WOUND BED. STAPH INFECTION TO L BUTTOCKS NOT SHOWING IMPROVEMENT WITH TOPICAL MANAGEMENT, PRIMARY RN TO NOTIFY MD FOR POSSIBLE ANTIBIOTICS. PT TOLERATED WELL
--- NOTE | 2022-02-12 18:16 | NUR ---
PT SUMMARY: NO ACUTE CHANGE FOR THE SHIFT. VITALS STABLE. DIALYSIS DONE TODAY, PT WAS C/O EAR PRESSURE DR BERMUDEZ CHECK PTS EARS VIA OTOSCOPE PT STARTED ON VIBRAMYCIN FOR OTITIS MEDIA AND STAPH (BOIL) INFECTION ON BUTTOCKS. PT WAS UP IN HER CHAIR AMBULATED VIA WALKER WITH THERAPY PT TOLERATED. WOUND CARE NURSE CAME IN AND REPLACED WOUND DRESSINGS. MEDICATED X1 FOR PAIN. NO OTHER ISSUES ENCOUNTERED, PT NOW RESTING IN RECLINER, WILL REPORT TO ONCOMING SHIFT
--- NOTE | 2022-02-13 05:06 | NUR ---
SHIFT SUMMARY PT BASELINE A&Ox3, CALLS AND COMMUNICATES NEEDS APPRORPIATELY, VSS, SpO2> 92% 2L VIA NC, PT REFUSED TO WEAR CPAP THROUGHOUT THE NIGHT. BP ELEVATED, MANAGING PER EMAR. PT REMAINED MEDICAL NO TELE STATUS. INCONTINENT OF URINE, PROVIDED ATTENDS CHANGES AND REPOSITIONING. NO ACUTE EVENTS THIS SHIFT, WILL REPORT TO DAY SHIFT RN.
[2022-02-13 11:41] LABS: Hematocrit 24.2 % (33.0-51.0); Hemoglobin 7.7 g/dL (11.5-16.0)
[2022-02-13 11:59] LABS: Albumin, Blood 3.1 g/dL (3.4-5.0); Anion Gap 11 mmol/L (6-16); Blood Urea Nitrogen 74 mg/dL (8-24); Bun/Creatinine Ratio 22.9 (12.0-20.0); CO2, Blood 28 mmol/L (21-32); Calcium, Blood 8.9 mg/dL (8.5-10.1); Chloride, Blood 97 mmol/L (98-108); Creatinine, Blood 3.23 mg/dL (0.40-1.00); Glomerular Filtration Rate 17 (60-); Glucose, Blood 352 mg/dL (70-99); Magnesium, Blood 2.5 mg/dL (1.6-2.4); Phosphorus, Blood 5.9 mg/dL (2.5-4.9); Potassium, Blood 5.3 mmol/L (3.5-5.5); Sodium, Blood 136 mmol/L (136-145)
--- NOTE | 2022-02-13 18:34 | NUR ---
shift summary no acute changes this shift. pt a&ox4, vss. no bm this shift, bowel care given per emar. pt c/o of foot pain, pain medication given per emar. pt had difficult time this shift adhering to fluid restriction. cried because pt states she was so thirsty. Ice chips given frequently, while trying to keep her under FR. Pt started shift in bed, spend afternoon in hard chair, now in recliner. Daughter has been in room since afternoon. Call light in reach.
--- NOTE | 2022-02-14 05:14 | NUR ---
SHIFT SUMMARY PT BASELINE A&Ox3, CALLS AND COMMUNICATES NEEDS APPRORPIATELY, VSS, SpO2> 92% 2L VIA NC, PT WORE CPAP FOR APPROXIMATELY 4 HOURS THIS SHIFT. BP ELEVATED, MANAGING PER EMAR. PT REFUSED TO GET INTO BED THIS SHIFT. PT REMAINED MEDICAL NO TELE STATUS. INCONTINENT OF URINE, PROVIDED ATTENDS CHANGES AND REPOSITIONING. NO ACUTE EVENTS THIS SHIFT, WILL REPORT TO DAY SHIFT RN.
[2022-02-14 09:46] LABS: Hematocrit 25.1 % (33.0-51.0); Hemoglobin 7.9 g/dL (11.5-16.0)
[2022-02-14 10:05] LABS: Anion Gap 12 mmol/L (6-16); Blood Urea Nitrogen 100 mg/dL (8-24); Bun/Creatinine Ratio 25.4 (12.0-20.0); CO2, Blood 25 mmol/L (21-32); Calcium, Blood 8.9 mg/dL (8.5-10.1); Chloride, Blood 97 mmol/L (98-108); Creatinine, Blood 3.94 mg/dL (0.40-1.00); Glomerular Filtration Rate 14 (60-); Glucose, Blood 325 mg/dL (70-99); Magnesium, Blood 2.3 mg/dL (1.6-2.4); Phosphorus, Blood 6.9 mg/dL (2.5-4.9); Potassium, Blood 5.7 mmol/L (3.5-5.5); Sodium, Blood 134 mmol/L (136-145)
--- NOTE | 2022-02-14 18:50 | NUR ---
SHIFT SUMMARY NO ACUTE CHANGES THIS SHIFT. VSS. PT TO DIALYSIS THIS AM. PT C/O OF PAIN, MEDICATED PER EMAR X1. WORKED W/ OT THIS SHIFT. BED BATH GIVEN. CURRENTLY UP IN CHAIR TALKING TO FAMILY ON PHONE. TAB ALARM ON. CALL LIGHT IN REACH.
--- NOTE | 2022-02-15 05:56 | NUR ---
SHIFT SUMMARY MED NO TELE STATUS PATIENT ALERT, ORIENTED x3-4. VSS, PATIENT ON 3L DURING THE SHIFT WITH O2 SAT >90%. INCONTINENT WITH ATTENDS IN PLACE. NEW POSTULE TYPE MARKING ON LEFT HIP. MARKED AND UPDATED PICTURES IN CHART. OTHER [place] NO SIGNIFICANT CHANGES THIS SHIFT. WILL REPORT TO DAY SHIFT RN.
[2022-02-15 10:01] LABS: Hemoglobin 7.9 g/dL (11.5-16.0)
[2022-02-15 10:06] LABS: Albumin, Blood 2.9 g/dL (3.4-5.0); Anion Gap 10 mmol/L (6-16); Blood Urea Nitrogen 86 mg/dL (8-24); Bun/Creatinine Ratio 24.8 (12.0-20.0); CO2, Blood 26 mmol/L (21-32); Calcium, Blood 8.8 mg/dL (8.5-10.1); Chloride, Blood 97 mmol/L (98-108); Creatinine, Blood 3.47 mg/dL (0.40-1.00); Glomerular Filtration Rate 16 (60-); Glucose, Blood 418 mg/dL (70-99); Magnesium, Blood 2.2 mg/dL (1.6-2.4); Phosphorus, Blood 6.2 mg/dL (2.5-4.9); Potassium, Blood 4.6 mmol/L (3.5-5.5); Sodium, Blood 133 mmol/L (136-145)
[2022-02-16 09:43] LABS: Hematocrit 25.8 % (33.0-51.0)
[2022-02-16 09:51] LABS: Albumin, Blood 2.9 g/dL (3.4-5.0); Anion Gap 17 mmol/L (6-16); Blood Urea Nitrogen 68 mg/dL (8-24); Bun/Creatinine Ratio 24.4 (12.0-20.0); CO2, Blood 28 mmol/L (21-32); Calcium, Blood 8.7 mg/dL (8.5-10.1); Chloride, Blood 97 mmol/L (98-108); Creatinine, Blood 2.79 mg/dL (0.40-1.00); Glomerular Filtration Rate 21 (60-); Glucose, Blood 363 mg/dL (70-99); Magnesium, Blood 2.2 mg/dL (1.6-2.4); Phosphorus, Blood 5.5 mg/dL (2.5-4.9); Sodium, Blood 142 mmol/L (136-145)
--- NOTE | 2022-02-16 17:27 | NUR ---
SHIFT SUMMARY PT WAS TAKEN TO DIALYSIS THIS AM. THIS RN EXAMINED THE PT'S SCALP WHICH YIELDED SOME SMALL PATCHES OF DRY FLAKY SKIN. PT HAS C/O 6/10 TO THE BLE WHICH WAS TREATED WITH REST, REPOSITIONING, AND MEDICATION.
--- NOTE | 2022-02-17 05:12 | NUR ---
SHIFT SUMMARY: PATIENT A&O X3, MAINTAINED O2 SATS >95% ON 2L NC/CPAP. SLEPT IN BED T/O NIGHT. PATIENT'S DAUGHTER CALLED TO DEMAND PATIENT BE PUT BACK IN CHAIR - EDUCATED ON PRESSURE ULCER CARE AND PREVENTION. PATIENT REPOSITIONED Q1-2 HRS. PATIENT STATES SHE HAS A COURT DATE TODAY TO CONTEST GUARDIANSHIP. NO ADVERSE EVENTS THIS SHIFT. MEDICATED PER EMAR. BED LOW WITH CALL LIGHT IN REACH. WILL CONTINUE TO MONITOR UNTIL REPORT TO DAY RN.
[2022-02-17 08:13] LABS: Hematocrit 26.1 % (33.0-51.0); Hemoglobin 8.2 g/dL (11.5-16.0)
[2022-02-17 08:37] LABS: Albumin, Blood 2.7 g/dL (3.4-5.0); Anion Gap 34 mmol/L (6-16); Blood Urea Nitrogen 64 mg/dL (8-24); Bun/Creatinine Ratio 30.9 (12.0-20.0); CO2, Blood 24 mmol/L (21-32); Calcium, Blood 7.7 mg/dL (8.5-10.1); Chloride, Blood 91 mmol/L (98-108); Creatinine, Blood 2.07 mg/dL (0.40-1.00); Glomerular Filtration Rate 29 (60-); Glucose, Blood 250 mg/dL (70-99); Magnesium, Blood 1.9 mg/dL (1.6-2.4); Phosphorus, Blood 5.2 mg/dL (2.5-4.9); Potassium, Blood 3.9 mmol/L (3.5-5.5); Sodium, Blood 149 mmol/L (136-145)
--- NOTE | 2022-02-17 15:08 | NUR ---
R HEEL DRESSING CHANGED PER ORDER. NEW PHOTO AND ASSESSMENT IN HARD CHART. PT TOLERATED WELL
--- NOTE | 2022-02-17 18:41 | NUR ---
SHIFT SUMMARY PATIENT ALERT AND ORIENTED TO SELF AND PLACE, SOMETIMES CONFUSED ABOUT SITUATION AND EVENTS. DIALYSIS THIS AM. WORKED WITH PHYSICAL THERAPY IN AFTERNOON, WALKED IN ROOM. TOLERATING CONSTANT CARB DIET WITH INSULIN SS AND CARB COUNT COVERAGE. MEDICATED FOR RIGHT HEEL PAIN PRN. BOIL-LIKE WOUNDS TO BUTTOCKS AND THIGHS TREATED WITH OINTMENT AND POWDER TO REDNESS OF ALY AREA AND GROIN.
--- NOTE | 2022-02-17 20:44 | NUR ---
CARE ASSUMPTION: PATIENT IN CHAIR TALKING ON PHONE. PATIENT REPORTS PAIN IN HER FOOT, DENIES SOB OR CHEST PAIN. O2 >94% ON 2L NC. RT HAS SET UP CPAP FOR THE NIGHT. CBG 217. MEDICATED PER EMAR. HELPED PATIENT FIND BELONGINGS HER DAUGHTER BROUGHT IN - THEY WERE IN WHITE BOX ON SHELVING UNIT. CALL LIGHT IN REACH.
--- NOTE | 2022-02-18 05:32 | NUR ---
SHIFT SUMMARY: PATIENT A&O X4, SYS BP>160, MAINTAINS O2 >95% ON 2L NC, AFEBRILE. PATIENT ENDORSES CONSTANT PAIN IN TOES/HEEL, DENIES SOB OR CHEST PAIN. MEDICATED PER EMAR. PATIENT INCONTINENT OF STOOL AND URINE THIS SHIFT. PATIENT MOVED FROM RECLINER TO BED AFTER MIDNIGHT USING LIFT. PATIENT REFUSED CPAP UNTIL 0500 - IT IS CURRENTLY IN PLACE AND PATIENT IS SLEEPING. BED LOW WITH CALL LIGHT IN REACH.
--- NOTE | 2022-02-18 18:40 | NUR ---
END OF SHIFT NOTE PT MEDICAL NO TELE STATUS. A&O X4. VSS. SPO2 > 92% ON 2L NC. PT UP TO CHAIR USING LIFT. PT WORKING W/ PHYSICAL THERAPY THIS SHIFT. PT C/O PAIN TO "R FOOT & BACK" THIS SHIFT, MEDICATED PER EMAR W/ PT REPORT OF IMPROVEMENT. PT REQUESTING PAIN MEDICATION AGAIN THIS EVENING, BUT THEN FALLING ASLEEP BEFORE THIS RN LEFT RM. LIGHT SNORING HEARD. SPO2 > 92%.
--- NOTE | 2022-02-18 23:05 | NUR ---
TRANSFER OF CARE: PATIENT TRANSFERRED BY CHAIR TO SCU 349. REPORT GIVEN TO KRISTI LEE. VS GETL, A&O X4, MEDICATED PER EMAR.
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
--- NOTE | 2022-02-19 07:49 | NUR ---
PRODUCT SUPPORT SALES REPRESENTATIVE SUMMARY NO ACUTE EVENTS. PT XFERED F/CHAIR T/BED WTIH LIFT. PT PREFERS CHAIR BUT AGREEABLE TO BEING IN BED OVERNIGHT; EXPLAINED BENEFIT OF REPOSITIONING T/PREVENT PRESSURE SORES. PT C/O PAIN IN RT HEEL/BACK. GAVE PRN NORCO 1X. PT COMPLIANT W/CPAP W/O THE NIGHT. DR CASTANEDA AT BEDSIDE THIS AM--PT TO HAVE DIALYSIS TODAY. PT ON 1000ML FLUID RESRICTION. BED LOCKED/LOW. CALL LIGHT IN REACH.
[2022-02-19 08:51] LABS: Hematocrit 26.1 % (33.0-51.0); Hemoglobin 8.1 g/dL (11.5-16.0)
--- NOTE | 2022-02-19 09:10 | NUR ---
PATIENT LEFT THE ROOM TO DIALYSIS AT THIS TIME.
[2022-02-19 09:50] LABS: Magnesium, Blood 2.4 mg/dL (1.6-2.4)
[2022-02-19 09:52] LABS: Albumin, Blood 3.1 g/dL (3.4-5.0); Blood Urea Nitrogen 126 mg/dL (8-24); Bun/Creatinine Ratio 33.3 (12.0-20.0); CO2, Blood 23 mmol/L (21-32); Calcium, Blood 9.2 mg/dL (8.5-10.1); Chloride, Blood 99 mmol/L (98-108); Creatinine, Blood 3.78 mg/dL (0.40-1.00); Glomerular Filtration Rate 14 (60-); Glucose, Blood 90 mg/dL (70-99); Potassium, Blood 5.5 mmol/L (3.5-5.5)
[2022-02-19 09:53] LABS: Anion Gap 13 mmol/L (6-16); Phosphorus, Blood 8.7 mg/dL (2.5-4.9); Sodium, Blood 135 mmol/L (136-145)
--- NOTE | 2022-02-19 17:37 | NUR ---
SHIFT SUMMARY: NO NEW CHANGES THIS SHIFT. PATIENT HAD DIALYSIS TODAY. 1500 HEMODIALYSIS FLUIDS WAS REMOVED. PATIENT HAS BEEN SITTING UP IN THE RECLINER CHAIR T/O THE DAY. PARTICIPATE WITH PT MOBILITY THIS PM. PATIENT HAD CRITICAL HIGH LAB OF PHOSPHORUS 8.7. CHARGED RN, JHONATAN TATE WAS NOTIFIED. PATIENT BS THIS SHIFT RANGES 90'S-350'S. RECEIVED INSULIN COVERAGE PLUS CARB COUNT COVERAGE PER ORDER. PATIENT REPORTS OF L FOOT, BACK AND HEADACHE. MEDICATED X1 WITH NORCO AND X1 WITH TYLENOL PER ORDER. PATIENT REPORTS OF ADEQUATE RELIEF. NO IV ACCESS. VITAL SIGNS REVIEWED. CALL LIGHT IN REACH.
--- NOTE | 2022-02-20 06:14 | NUR ---
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 PT EDUCATION ON EATING SNACKS, BLOOD SUGAR, FLUID RESTICTION AND PLAN OF CARE. PT VERBALIZING THAT SHE WANTS TO GO HOME AND NOT TO A FACILITY. SPOKE AT LENGTH THE IMPORTANCE OF JAIL CARE AND RISKS OF GOING HOME. ADVISED PT T/SPEAK W/HOSPICE LIAISON ABOUT CONCERNS. PT FEELS SHE IS MORE ABLE TO MONITOR HER OWN BLOOD SUGAR, FLUIDS, AND DIET. PT ALSO REQUESTING SNACKS MORE FREQUENTLY. PT C/O OF PAIN IN RIGHT HEEL THIS AM; MED P/EMAR. PT REQ TO HAVE PAIN MEDS Q4 INSTEAD OF Q6; PT STATED DR TOLD HER SHE WOULD MAKE THIS CHANGE T/PAIN MED. ADVISED I WOULD PASS INFO ON. PT XFERED T/BED W/LIFT. PT ON CPAP T/O THE NIGHT W/2L O2. WHEN PT AWAKE SHE IS SATTING >90% ON ROOM AIR; WHEN SHE BECOMES SLEEPING HER SATS BEGIN TO FALL. PT SLOW T/RESPOND. A/OX3 WITH CONFUSION/FORGETFULNESS ABOUT RECENT EVENTS AND PLAN OF CARE. CALL LIGHT IN REACH. BED LOCKED/LOW.
[2022-02-20 09:19] LABS: Hematocrit 27.2 % (33.0-51.0); Hemoglobin 8.5 g/dL (11.5-16.0)
[2022-02-20 09:34] LABS: Albumin, Blood 3.3 g/dL (3.4-5.0); Anion Gap 11 mmol/L (6-16); Blood Urea Nitrogen 96 mg/dL (8-24); CO2, Blood 26 mmol/L (21-32); Calcium, Blood 9.8 mg/dL (8.5-10.1); Chloride, Blood 101 mmol/L (98-108); Creatinine, Blood 3.31 mg/dL (0.40-1.00); Glomerular Filtration Rate 17 (60-); Glucose, Blood 259 mg/dL (70-99); Magnesium, Blood 2.4 mg/dL (1.6-2.4); Phosphorus, Blood 5.8 mg/dL (2.5-4.9); Sodium, Blood 138 mmol/L (136-145)
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
--- NOTE | 2022-02-20 17:59 | NUR ---
Spiritual Care Follow up. Since our earlier visit was interrupted by a Rapid Response call, I returned to see the Pt. Pt. welcomes my visit as she was eating dinner. Re-established rapport and prayed with the Pt. Pt. displayed evidence of engagement and participation in the prayer. Pt. verbalized gratitude for both spiritual care visits.
--- NOTE | 2022-02-20 18:34 | NUR ---
SHIFT SUMMARY: PATIENT ON O2 2L VIA NC WITH SPO2 99-100% BEGINNING OF SHIFT. O2 WAS DC'D THIS AM AND PLACE ON RA WITH SPO2 94-96% T/O SHIFT. PATIENT SITTING UP IN THE RECLINER CHAIR FOR ALL MEALS. PATIENT REPORTS OF PAIN TO R FOOT AND BACK. MEDICATED X1 WITH NORCO PRN PER EMAR. PARTICIPATE WITH PT/OT MOBILITY TODAY AND TOLERATED WELL. VITAL SIGNS REVIEWED. AWAITING FOR SAFE PLACEMENT. CHAIR ALARM ON AND CALL LIGHT IN REACH.
--- NOTE | 2022-02-21 03:25 | NUR ---
PHYSICIAN CONTACT AND TRANSFER TO ICU ORDER APROX 0100 PT C/O STOMACH ACHE; HAS XXXLARGE BM W/N&v. BLOOD SUGAR WAS 487. CALL T/DR LOPEZ--ORDER F/1X 20 UNITS GLARGINE AND 1X LISPRO HS HIGH SLIDING SCALE. DR ALMANZAR TO CHECK IN HOUR AND CALL TO UPDATE. 0312 BS 442. CALL T/DR LOPEZ. ORDER T/XFER T/ICU TO START ON INSULIN DRIP.
--- NOTE | 2022-02-21 03:47 | NUR ---
SPOKE WITH DR. EASLEY AND REMINDED HIM THAT THE PT IS A BRITTLE DIABETIC. HE ADVISED THAT AN INSULIN GTT WAS NOT APPRORIATE. ASKED THAT I GO TALK WITH ROSA BERRY AND ADVISE HER TO RECHECK A CBG IN 2 HOURS SINCE THE ONSET OF GLARGINE IS 3-4 HOURS. WENT AND SPOKE WITH ROSA WHO WAS VERY RECEPTIVE OF THE PLAN.
--- NOTE | 2022-02-21 06:17 | NUR ---
X RAY PHYSICIAN SUMMARY REVIEW PREVIOUS NOTES RE PT XFER T/ICU ORDER AND SUBSEQUENT CANCELLATION OF XFER. PT EPISODE OF N&V FOLLOWED BY ELEVATED BLOOD SUGARS. SINCE EPISODE PT HAS BEEN SOMNOLENT AND MORE CONFUSED. SKIN APPEARS DUSKY/PALE AND DIAPHORETIC. PT REPORTS SHE DOES NOT FEEL WELL AND HER ABDOMEN HURTS. 0530 BLOOD SUGAR WAS 379. PT WAS ALERT ENOUGH T/TAKE 0600 MEDS. PLAN F/PT TO GO TO DIALYSIS TODAY. DID NOT PLACE CPAP OVER NIGHT SHE WAS NAUSEOUS AND VOMITTING; USED NASAL CANUALA W/3L O2 T/MAINTAIN SATS >90%. CONT PULSE OX IN PLACE. PT CONT T/COMPLAIN OF PAIN IN RT HEEL/BACK. MED P/EMAR. DRESSING ON RIGHT HEEL APPEARED SOILED; CHANGED DRESSING P/WOUND CARE ORDER. PLACED FOAM CRATE HEEL PROTECTORS BILATERAL FEET. BED LOCKED/LOW. CALL LIGHT IN REACH.
[2022-02-21 11:51] LABS: Hematocrit 25.7 % (33.0-51.0); Hemoglobin 8.3 g/dL (11.5-16.0)
[2022-02-21 12:11] LABS: Albumin, Blood 3.4 g/dL (3.4-5.0); Anion Gap 8 mmol/L (6-16); Blood Urea Nitrogen 59 mg/dL (8-24); Bun/Creatinine Ratio 27.6 (12.0-20.0); CO2, Blood 30 mmol/L (21-32); Chloride, Blood 106 mmol/L (98-108); Creatinine, Blood 2.14 mg/dL (0.40-1.00); Glomerular Filtration Rate 28 (60-); Glucose, Blood 124 mg/dL (70-99); Magnesium, Blood 2.3 mg/dL (1.6-2.4); Phosphorus, Blood 3.3 mg/dL (2.5-4.9); Potassium, Blood 3.6 mmol/L (3.5-5.5); Sodium, Blood 144 mmol/L (136-145)
--- NOTE | 2022-02-21 15:25 | NUR ---
WOUND CARE RLE DRESSING CHANGED PER ORDER. PT TOLERATED WELL
--- NOTE | 2022-02-21 17:10 | NUR ---
CALLED DR MUSE AND SPOKE ABOUT THE PT LOW BG TODAY. SHE CAN BE A LITTLE BRITTLE. SHE WAS IN THE 50'S AROUND LUNCH TIME, SHE IS UP TO 124 AT DINNER TIME ORDER RECIEVED TO HOLD CARB COUNT DOSE OF INSULIN THIS EVENING WELL. MD AWARE LUNCH DOSE OF CAB COUNT WAS HELD WELL. ORDER RECIEVED FOR Q 4 BG OVERNIGHT.
--- NOTE | 2022-02-21 19:38 | NUR ---
SHIFT SUMMARY- PT ALERT AND ORIENTED TO SELF AND FAMILY. ON [place]ER[place] FOR PT SAFETY. PT HAD A LARGE SOFT FORMED BROWN STOOL THIS MORNING, HAS MAINTAINED HER SATS SITTING UP IN THE RECLINER ON 3L O2. PT HAS FAMILY IN THE ROOM WITH HER AT THIS TIME NO CURRENT S&S OF DISTRESS NOTED, BEDSIDE REPORT COMPLETED. NIGHT RN AWARE Q4 BG CHECKS ORDERED.
--- NOTE | 2022-02-22 03:55 | NUR ---
SHIFT SUMMARY NOC PT A/OX 2-3. PT FATIGUED FROM DIALYSIS IN AM. PT SLEPT IN CHAIR UNTIL ABOUT 0145 AND THEN TRANSFERRED TO BED VIA LIFT. PT IS USING CPAP WITH CX SPO2 MONITORING AT >92%. PT IS STILL ON O2 3L/NC WHEN NOT SLEEPING. PT HAS CBG CHECKS Q4H ORDERED. PT IS AWAITING LTC PLACEMENT WITH PT MOTHER IN CHARGE OF DECISION. PT IS CURRENTLY RESTING IN BED WITH RAILS UP, BED IN LOWEST POSITION, AND CALL LIGHT WITHIN REACH.
[2022-02-22 05:48] LABS: Hematocrit 24.7 % (33.0-51.0); Hemoglobin 7.7 g/dL (11.5-16.0)
[2022-02-22 06:19] LABS: Anion Gap 8 mmol/L (6-16); Blood Urea Nitrogen 83 mg/dL (8-24); Bun/Creatinine Ratio 23.2 (12.0-20.0); CO2, Blood 27 mmol/L (21-32); Calcium, Blood 8.9 mg/dL (8.5-10.1); Chloride, Blood 104 mmol/L (98-108); Creatinine, Blood 3.58 mg/dL (0.40-1.00); Glomerular Filtration Rate 15 (60-); Glucose, Blood 281 mg/dL (70-99); Magnesium, Blood 2.6 mg/dL (1.6-2.4); Phosphorus, Blood 5.6 mg/dL (2.5-4.9); Potassium, Blood 5.1 mmol/L (3.5-5.5); Sodium, Blood 139 mmol/L (136-145)
--- NOTE | 2022-02-22 19:19 | NUR ---
END OF SHIFT SUMMARY: PATIENT PAIN CONTROLLED WITH PRN AND SCHEDULED MEDICATIONS. PATIENT TOLERATED FLUID RESTRICTION WELL. PATIENT UP TO THE RECLINER MOST OF THE DAY. PATIENT ON 3L VIA NC THROUGHOUT THE SHIFT. UNABLE TO WEEN HER DOWN TO 2L (SATURATIONS DECREASED FROM 95% TO 89-90%). NO RESPIRATORY DISTRESS NOTED THROUGHOUT THE SHIFT. PATIENT DENIED ANY DIFFICULTY BREATHING. PATIENT HAS AN EXCELLENT APPETITE. CBGS WERE ALL ABOVE 200. PATIENT CALM AND COOPERATIVE WITH CARE.
--- NOTE | 2022-02-23 03:59 | NUR ---
SHIFT SUMMARY NOC PT A/OX4. PT IS ON O2 3L/NC WITH SPO2 >94% WHILE SITTING IN CHAIR. PT PREFERS TO BE IN CHAIR AND O2 LEVELS ARE HIGHER. PT IS STILL ON CBG Q4H AND LAST CBG WAS 178. VSS. PT HAS BEEN PLEASANT AND COOPERATIVE TO CARE. PT IS ON CONTINUOS SPO2 MONITORING FOR AHRF. NO ACUTE CHANGES THIS SHIFT. PT IS CURRENTLY NOT IN ANY DISTRESS SITTING IN CHAIR WATCHING TV WITH CALL LIGHT WITHIN REACH.
[2022-02-23 09:38] LABS: Hematocrit 25.7 % (33.0-51.0)
[2022-02-23 09:56] LABS: Anion Gap 15 mmol/L (6-16); Blood Urea Nitrogen 116 mg/dL (8-24); Bun/Creatinine Ratio 25.8 (12.0-20.0); CO2, Blood 24 mmol/L (21-32); Calcium, Blood 8.7 mg/dL (8.5-10.1); Chloride, Blood 97 mmol/L (98-108); Glomerular Filtration Rate 12 (60-); Glucose, Blood 454 mg/dL (70-99); Magnesium, Blood 2.4 mg/dL (1.6-2.4); Phosphorus, Blood 6.2 mg/dL (2.5-4.9); Potassium, Blood 5.4 mmol/L (3.5-5.5); Sodium, Blood 136 mmol/L (136-145)
--- NOTE | 2022-02-23 17:45 | NUR ---
DAYSHIFT SUMMARY This morning CBG 465, notified MD instructed to recheck in 1 hour, rechecked CBG 363. CBG at lunch time was 154. Evening CBG was 60, gave cheese, crackers & juice, rechecked CBG was 78. Called & notified MD. Plan is to hold SSI/carb count at dinner time, ok to given Lantus at HS. CBGs are checked Q4H, if CBG > 200, RN will notifiy noc about giving coverage during the night. Patient doing well, no s/sx of hypoglycemia noted. Dialysis today. Vitals stable. Will continue plan of care, awaiting discharge planning.
--- NOTE | 2022-02-24 00:34 | NUR ---
PHYSICIAN COMMUNICATION CONTACTED DR TERRY TO NOTIFY HIM THAT THE PATIENT'S BLOOD SUGAR WAS 422. DR TERRY ORDERED 10 UNITS LANTUS NOW.
[2022-02-24 05:08] LABS: HBSAG SCREEN Negative (Negative); HCV AB <0.1 (0.0-0.9); HEP A AB, IGM Negative (Negative); HEP B CORE AB, IGM Negative (Negative)
[2022-02-24 05:27] LABS: Hematocrit 26.5 % (33.0-51.0); Hemoglobin 8.4 g/dL (11.5-16.0)
--- NOTE | 2022-02-24 05:40 | NUR ---
SHIFT SUMMARY PATIENT ALERT AND ORIENTED. HAD NO COMPLAINTS OF PAIN OR SHORTNESS OF BREATH. RECEIVED AN EXTRA ONE TIME DOSE OF LANTUS FOR A BLOOD SUGAR OF 422. NO OTHER ACUTE ISSUES NOTED OVERNIGHT. CALL LIGHT WITHIN REACH. REPORT GIVEN TO ONCOMING RN.
[2022-02-24 05:47] LABS: Albumin, Blood 2.9 g/dL (3.4-5.0); Anion Gap 9 mmol/L (6-16); Blood Urea Nitrogen 88 mg/dL (8-24); Bun/Creatinine Ratio 25.2 (12.0-20.0); CO2, Blood 27 mmol/L (21-32); Chloride, Blood 100 mmol/L (98-108); Creatinine, Blood 3.49 mg/dL (0.40-1.00); Glomerular Filtration Rate 16 (60-); Glucose, Blood 416 mg/dL (70-99); Magnesium, Blood 2.5 mg/dL (1.6-2.4); Phosphorus, Blood 5.5 mg/dL (2.5-4.9); Sodium, Blood 136 mmol/L (136-145)
[2022-02-24 10:15] LABS: Hematocrit 27.2 % (33.0-51.0); Hemoglobin 8.7 g/dL (11.5-16.0)
[2022-02-24 10:26] LABS: Albumin, Blood 2.9 g/dL (3.4-5.0); Anion Gap 13 mmol/L (6-16); Blood Urea Nitrogen 89 mg/dL (8-24); Bun/Creatinine Ratio 24.8 (12.0-20.0); CO2, Blood 28 mmol/L (21-32); Calcium, Blood 9.1 mg/dL (8.5-10.1); Chloride, Blood 100 mmol/L (98-108); Creatinine, Blood 3.59 mg/dL (0.40-1.00); Glomerular Filtration Rate 15 (60-); Glucose, Blood 228 mg/dL (70-99); Phosphorus, Blood 5.3 mg/dL (2.5-4.9); Potassium, Blood 4.7 mmol/L (3.5-5.5); Sodium, Blood 141 mmol/L (136-145)
--- NOTE | 2022-02-24 13:41 | NUR ---
PATIENT EDUCATION: INSULIN & CARB COUNTING Printed out Sliding Scale for meal time coverage, explained how the first column shows CBG number & the corresponding column shows amount of insulin needed. Practiced using SS, instructed Janis to determine how much insulin needed for CBG #. Each time this racebook writer ask patient how much insulin needed, she would only point to the CBG column. With guidance from racebook writer, walked patient through looking at CBG # and then the next box with # of insulin units. Used teach back method, patient able to explain that blue pen is for day/bedtime, and dark blue pen is for rapid/meal insulin. Checked patients CBG for lunch time, CBG 91. Asked patient how many units of sliding scale insulin is needed, she stared at sliding scale sheet for long time, then pointed at 150- 199 box. Helped her find correct box, and no insulin is needed. Asked why no sliding scale insulin was needed, patient because my sugar is too low. RN provided education to patient on carb counting and insulin administration. Explained how to count total carbs for the meal, and how to calculate units of insulin per carbs eaten. Instructed patient to count carbs after finished eating, and calculate insulin. Patient called RN when she was finished eating, patient attemping to add numbers on her meal ticket, having difficulty adding numbers. Patient stated she could do it with a phone, gave patient phone w/ calculator, she continued to struggle adding numbers, difficulty remembering to use + sign between numbers, and that she needed to use = to calculate. Patient able to demonstrate how to apply needle to pen, and dial up correct units of insulin. Patient was able to inject insulin in her thigh. Patient has difficulty remembering each step of counting, calculating insulin, she looks to racebook writer often for help on the next step. Will continue to provide education & have patient participate with insulin calculation & administration.
--- NOTE | 2022-02-24 16:17 | NUR ---
WOUND CARE DC XEROFORM TO R HEEL. WOUND HAS CLOSED BUT IS FRAGILE. HEEL CLEANSED WITH NS, MOISTURIZER APPLIED. COVERED WITH EXU-DRY FOR PROTECTION. NEW PHOTO AND ASSESSMENT IN HARD CHART. PT TOLERATED WELL
--- NOTE | 2022-02-24 18:32 | NUR ---
DAYSHIFT SUMMARY This morning CBG was 265, SS & carb counting insulin administred this morning. Rechecked CBG at lunch, CBG 91, no SS or carb counting insulin given, rechecked after meal and CBG was 78. 1500 patient requested CBG checked, c/o hypoglycemia symptoms. CBG 52, notified MD and gave juice, peanutbutter & crackers. CBG recheck Q15min, CBG 91 at 1604. CBG before dinner 125, no SS needed. WOCN RN at bedside, changed dressing on right heel & left buttock. Small open wound located left buttock, groin red, pwd/cream applied. Patient OOB & worked with therapy today. Will continue plan of care, awaiting placement.
--- NOTE | 2022-02-25 05:01 | NUR ---
SHIFT SUMMARY: Pt A/Ox4 but can be forgetful. She had no c/o nausea, SOB, dizziness. Did state she had pain in her RLE and a headache. PRN [place] given x1 and had some relief. Ice pack applied to her forehead. She wore her bipap for about an hour overnight, otherwise utilized her NC at 2L while asleep, RA when awake.
[2022-02-25 09:49] LABS: Hematocrit 26.7 % (33.0-51.0); Hemoglobin 8.5 g/dL (11.5-16.0)
[2022-02-25 10:10] LABS: Anion Gap 9 mmol/L (6-16); Blood Urea Nitrogen 104 mg/dL (8-24); Bun/Creatinine Ratio 23.1 (12.0-20.0); CO2, Blood 26 mmol/L (21-32); Calcium, Blood 8.9 mg/dL (8.5-10.1); Chloride, Blood 99 mmol/L (98-108); Creatinine, Blood 4.51 mg/dL (0.40-1.00); Glomerular Filtration Rate 12 (60-); Glucose, Blood 192 mg/dL (70-99); Magnesium, Blood 2.4 mg/dL (1.6-2.4); Phosphorus, Blood 7.1 mg/dL (2.5-4.9); Potassium, Blood 5.3 mmol/L (3.5-5.5); Sodium, Blood 134 mmol/L (136-145)
--- NOTE | 2022-02-25 18:14 | NUR ---
DAYSHIFT SUMMARY Patient doing well, motivated to administer insulin independently. Patient keeps meals ticket after every meal, to count carbs for insulin coverage. Today patient was able to correctly identify units of insulin needed per sliding scale. Patient struggles with counting carbs, stares at the calculator for a long time, difficulty finding numbers on screen. Patient is able to put needed on insulin pen, dial correct units of insulin, & administer into thigh. Doing well participating in insulin administration, but still needs help from RN with each step. Worked with therapy today, walked down steps & ambulated to BSC then to chair. Patient unable to walk up steps back to recliner. Used lift to transfer back to recliner. Dialysis today. Vitals stable. Will continue plan of care, awaiting discharge planning.
--- NOTE | 2022-02-26 03:33 | NUR ---
PT SLEPT WITH CPAP IN PLACE FOR APPX 3 HOURS. PT AWAKE NOW, CPAP REMOVED BY PT. PT HAS CALL LIGHT, AND IS CURRENTLY WATCHING TV.
--- NOTE | 2022-02-26 05:32 | NUR ---
SHIFT SUMMARY - NO ACUTE CHANGES THROUGHOUT THIS SHIFT. PT ACTUALLY REQUESTED TO HAVE HER CPAP PLACED ON TONIGHT, SHE REPORTED IT MADE HER FEEL BETTER YESTERDAY WHEN SHE WORE HER CPAP. PT HAS BEEN SLEEPING FOR APPX 6 HOURS TONIGHT. NO S/S OF RESPIRATORY DISTRESS. VSS. FLUIDS AT BEDSIDE. CALL LIGHT WITHIN REACH. BED IN LOW POSITION.
--- NOTE | 2022-02-26 06:33 | NUR ---
PT SLEPT IN RECLINER CHAIR, NOT THE BED, TONIGHT. REPORT FROM PREVIOUS SHIFT IF PT STAYS IN THE RECLINER THROUGHOUT THE DAY. PT HAS BEEN ADJUSTED IN THE RECLINER WITH HEAD DOWN X2 FOR REPOSITIONING AND CHUCKS ADJUSTED X2 FOR SLIGHT REPOSITION IN RECLINER.
[2022-02-26 07:51] LABS: Hematocrit 28.2 % (33.0-51.0)
[2022-02-26 08:13] LABS: Albumin, Blood 2.9 g/dL (3.4-5.0); Anion Gap 10 mmol/L (6-16); Blood Urea Nitrogen 82 mg/dL (8-24); Bun/Creatinine Ratio 20.8 (12.0-20.0); CO2, Blood 26 mmol/L (21-32); Calcium, Blood 9.4 mg/dL (8.5-10.1); Chloride, Blood 100 mmol/L (98-108); Creatinine, Blood 3.94 mg/dL (0.40-1.00); Glomerular Filtration Rate 14 (60-); Glucose, Blood 230 mg/dL (70-99); Phosphorus, Blood 5.8 mg/dL (2.5-4.9); Potassium, Blood 5.3 mmol/L (3.5-5.5); Sodium, Blood 136 mmol/L (136-145)
[2022-02-26 12:55] LABS: Glucose, Blood 634 mg/dL (70-99)
[2022-02-26 14:57] LABS: Glucose, Blood 600 mg/dL (70-99)
--- NOTE | 2022-02-26 17:10 | NUR ---
SUMMARY- PT A/O X3-4, FORGETFUL, CHILDLIKE. PERSEVERATED ON DETAILS LIKE HAVING ICE. PT UP IN RECLINER CHAIR ALL OF SHIFT. TURNED SIDE TO DICE IN CHAIR FOR INCONT CARE. HAD LG FORMED BM TODAY. TOLERATING FOOD AND FLUID. PAIN CONTROLLED WITH VICODIN Q8. PT STATES HER PAIN 8/10, WITH LITTLE OVERT SS OF PAIN. PT FREQ FALLS ASLEEP IN CHAIR ON/OFF THFOUGHOUT THE DAY. NO DIALYSIS TODAY. PT CONTSTANTLY ASKING FOR FLUIDS, HELFPING HER TO STYA IN FLUID LIMIT.
--- NOTE | 2022-02-26 17:12 | NUR ---
CALLED DR ANGELA DEMARCO 1300 TO NOTIFY OF CRITICAL HIGH BLOOD SUGAR OF 634. ONE TIME HUMALOG SS 15 UNITS ORDERED PLUS SS WITH CARBS OF LUNCH. RECHECKED SUGAR AT 1400 WITH ANOTHER CRITICAL HIGH AND LAB DRAW, SUGAR NOW 600. CALLED DR MANLEY, ADDIDTIONAL 15UNITS HUMALOG ADMIN. ORDER TO CHECH GLUCOMENTER Q2H UNTIL 2200 TONIGHT WITH COVERAGE AT 1800 AND PT MAY EAT FOOD ONCE BLOOD SUGAR BELOW 350. AT 1608 BLOOD SUGER WAS 404- CALLED DR MANLEY. NO ADDITIONAL INSULIN AT THIS TIME.
--- NOTE | 2022-02-26 18:37 | NUR ---
RELATED TO HIGH BLOOD SUGAR - THIS AM AFTER PT ADMINISTERED THE 10 UNITS OF INSULIN IN HER ABD, RN ASSESSED HUMALOG PEN AND SAW THE TIP FILLED WITH INSULIN, RN QUESTIONED HOW MUCH INSULIN WAS ACTUALLY INJECTED INTO SKIN. LATER IN THE DAY SUGARS WERE INTO THE 600'S, THIS MAY HAVE CONTRIBUTED.
--- NOTE | 2022-02-27 07:21 | NUR ---
SHIFT SUMMARY ALERT AND ORIENTED. VSS. PT ON 1000ML FL RESTRICTION. CAN HAVE 300ML THIS SHIFT. PT KEEP ASKING FOR FLUIDS. INFORMED PT THAT SHE CAN ONLY HAVE 300ML. PT HAD SYSTOLIC BP OF 112. HELD SCHEDULED OOOO BP MED. PT C/O PAIN 11/23, GIVEN 2 TABS NORCO. PT C/O NAUSEA AFTER GIVEN PAIN MED. GAVE ODT ZOFRAN, PRN. PT TO HAVE DIALYSIS THIS AM, NEEDS LAB DRAW BY DIALYSIS NURSE TO SEND TO LAB.
[2022-02-27 09:34] LABS: Hemoglobin 8.9 g/dL (11.5-16.0)
[2022-02-27 10:05] LABS: Albumin, Blood 3.2 g/dL (3.4-5.0); Anion Gap 17 mmol/L (6-16); Blood Urea Nitrogen 126 mg/dL (8-24); CO2, Blood 19 mmol/L (21-32); Calcium, Blood 8.7 mg/dL (8.5-10.1); Chloride, Blood 94 mmol/L (98-108); Creatinine, Blood 5.04 mg/dL (0.40-1.00); Glomerular Filtration Rate 10 (60-); Glucose, Blood 474 mg/dL (70-99); Magnesium, Blood 2.1 mg/dL (1.6-2.4); Phosphorus, Blood 6.7 mg/dL (2.5-4.9); Potassium, Blood 5.4 mmol/L (3.5-5.5); Sodium, Blood 130 mmol/L (136-145)
--- NOTE | 2022-02-27 18:47 | NUR ---
SUMMARY- PT HAD DIALYSIS TODAY. UP IN CHAIR ALL DAY PER NORM. TOLERATING FOOD AND FLUIDS. BLOOD SUGAR WENT DOWN TO 54, GIVEN APPLE JUICE TO RECOVER BACK UP TO 80. THAN ATE A GOOD DINNER, DID NOT COVER WITH ISULIN FOR DINNER. PAIN IN FEET CONTROLLED WITH VICODIN 2 ONCE THIS PM. PT NAPPED ON/OFF T/O DAY. BATHED AND LINEN CHANGED.
--- NOTE | 2022-02-28 05:45 | NUR ---
SHIFT SUMMARY PT WAS GIVEN NORCO ON DAYSHIFT AT 1533. 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 GIVEN PRN ZOFRAN. BLOOD GLUCOSE WAS 210 AND GIVEN SCHEDULE 6 UNITS LANTUS. PT STILL ON 1000L FLUID RESTRICTION, CAN ONLY HAVE 300ML FOR THIS SHIFT. WILL CONTINUE TO MONITOR.
[2022-02-28 07:56] LABS: Hematocrit 25.9 % (33.0-51.0); Hemoglobin 8.2 g/dL (11.5-16.0)
[2022-02-28 08:17] LABS: Albumin, Blood 2.7 g/dL (3.4-5.0); Anion Gap 10 mmol/L (6-16); Blood Urea Nitrogen 96 mg/dL (8-24); Bun/Creatinine Ratio 21.1 (12.0-20.0); CO2, Blood 28 mmol/L (21-32); Calcium, Blood 8.3 mg/dL (8.5-10.1); Chloride, Blood 97 mmol/L (98-108); Creatinine, Blood 4.56 mg/dL (0.40-1.00); Glomerular Filtration Rate 11 (60-); Glucose, Blood 293 mg/dL (70-99); Magnesium, Blood 2.3 mg/dL (1.6-2.4); Phosphorus, Blood 5.9 mg/dL (2.5-4.9); Potassium, Blood 5.6 mmol/L (3.5-5.5); Sodium, Blood 135 mmol/L (136-145)
--- NOTE | 2022-02-28 16:55 | NUR ---
SHIFT SUMMARY: PT A/O X 4, 2 ASSIST WITH GB/WALKER. PLEASANT AND COOPERATIVE WITH CARE. PT HAD DIALYSIS THIS AM DUE TO HYPERKALEMIA. PT TOLERATED WELL. BS MANAGED AT THIS TIME. WOUNDS APPEAR TO BE HEALING. DRESSING TO R HEEL CDI. PT PARTICIPATED WITH PT TODAY AND DID WELL.
[2022-03-01 06:05] LABS: Hematocrit 28.7 % (33.0-51.0); Hemoglobin 9.2 g/dL (11.5-16.0)
--- NOTE | 2022-03-01 07:05 | NUR ---
SHIFT SUMMARY A&O X 3-4. BP RUNS HIGH. HAS SCHEDULED BP MEDS Q6H. BLOOD GLUCOSE CHECK Q4H. C/O PAIN 9/10. PAIN MANAGED WITH PRN NORCO Q8H. ON BEDREST, WEAR ATTENDS. ABLE TO MAKE NEEDS KNOWN. 1000ML FL RESTRICION. WILL CONTINUE TO MONITOR AND FOLLOW PLAN OF CARE.
[2022-03-01 07:11] LABS: Albumin, Blood 3.1 g/dL (3.4-5.0); Anion Gap 10 mmol/L (6-16); Blood Urea Nitrogen 85 mg/dL (8-24); Bun/Creatinine Ratio 20.1 (12.0-20.0); CO2, Blood 28 mmol/L (21-32); Chloride, Blood 95 mmol/L (98-108); Creatinine, Blood 4.22 mg/dL (0.40-1.00); Glomerular Filtration Rate 13 (60-); Glucose, Blood 224 mg/dL (70-99); Magnesium, Blood 2.2 mg/dL (1.6-2.4); Phosphorus, Blood 5.9 mg/dL (2.5-4.9); Potassium, Blood 5.2 mmol/L (3.5-5.5); Sodium, Blood 133 mmol/L (136-145)
--- NOTE | 2022-03-01 16:58 | NUR ---
DAYSHIFT SUMMARY This morning Nephrology visted patient via webex. Sales Audit Clerk stated that from a renal standpoint patient was stable for discharge. Patients blood sugars continue to be abnormal, morning Carb Count order adjusted to 8 carbs/unit instead of 5 carbs/unit. Attending & Resident assessed patient at bedside, reviewed plan of care. Patient has guardianship in place. Caremanagment assisting with discharge plan, awaiting placement. Patient verbalizes desire to go home, provided education on BP medication, given Q6H, and CBGs checked Q4H. Explained staff is waking her up to administer these interventions. Patient stated if she was at home her mom would wake her up Q4H to check CBG, she would not have to wake herself up. Patient continues to calculate SS/Carb Counting insulin w/ direction and help by RN. Patient is able to self administer insulin injections. Will continue plan of care.
[2022-03-02 06:53] LABS: Hemoglobin 8.7 g/dL (11.5-16.0)
[2022-03-02 07:14] LABS: Albumin, Blood 2.9 g/dL (3.4-5.0); Anion Gap 11 mmol/L (6-16); Blood Urea Nitrogen 107 mg/dL (8-24); CO2, Blood 26 mmol/L (21-32); Calcium, Blood 8.8 mg/dL (8.5-10.1); Chloride, Blood 95 mmol/L (98-108); Creatinine, Blood 5.36 mg/dL (0.40-1.00); Glomerular Filtration Rate 9 (60-); Glucose, Blood 187 mg/dL (70-99); Magnesium, Blood 2.4 mg/dL (1.6-2.4); Phosphorus, Blood 7.1 mg/dL (2.5-4.9); Potassium, Blood 5.8 mmol/L (3.5-5.5); Sodium, Blood 132 mmol/L (136-145)
--- NOTE | 2022-03-02 15:05 | NUR ---
PT HTN. CALLED ORDERS FOR HYDRALAZINE. PLACED IV AND GAVE MED. PT STATES NO FISTULA IN L ARM. NONE FELT. PLACE IV.
--- NOTE | 2022-03-02 19:26 | NUR ---
CHASING BP TODAY. HELD FOR DIALYSIS. SHE TOLERATED DIALYSIS WELL. CBG UP SOME THIS DUNG. MED PER EMAR. NOTIFIED. FAMILY IN TODAY. NO OTHER NEW CONCERNS NOTED. BED IN LOW POSITION, CALL LITE IN REACH, CALLS APPROP
--- NOTE | 2022-03-03 05:26 | NUR ---
SHIFT SUMMARY PT A&O X 4- PT SITTING UP IN RECLINER CHAIR- PT REFUSES TO SLEEP IN BED- PT REPORTS ITS TOO UNCOMFORTABLE IN THE BED- PT TOOK SCHEDULED MEDS WITHOUT PROBLEMS- PT REQUESTED PAIN MEDICATION FOR FOOT PAIN- GAVE NORCO- PT UPSET RE: WEARING CPAP- EDUCATED PT THE IMPORTANCE OF KEEPING CPAP ON AND THAT SHE CAN HAVE BREAKS AT TIMES - PT UPSET AND CRYING AND WANTED POWDER IN HER ALY AREA D/T BURNING- NO S/S REDNESS IN FOLDS- POWDER ALREADY HAD BEEN APPLIED- OPENED BREIF TO HELP WITH PAIN- PT HYPERTENSIVE - GAVE SCHEDULED MEDS AND ENCOURAGED PT TO WEAR CPAP AND TRY TO SLEEP- PT TOLERATED CPAP ON FOR OVER 6 HOURS WITHOUT A BREAK FROM MASK CALL LIGHT WITHIN REACH
--- NOTE | 2022-03-03 08:54 | NUR ---
WOUND CARE WOUND CARE TO LLE AND R BUTTOCKS PER ORDER. NEW ASSESSMENT AND WEEKLY PHOTO IN HARD CHART. PT TOLERATED WELL
--- NOTE | 2022-03-03 19:30 | NUR ---
PT TOOK SHOWER TODAY. HAS BEEN IN CHAIR SOME THIS AFT. TOLERATING WELL. KIDS IN TO VISIT TODAY. PAIN MANAGED WITH AVAIL MEDS. NO NEW CONCERNS NOTED. BED IN LOW POSITION, CALL LITE IN REACH, CALLS APPROP
--- NOTE | 2022-03-04 06:40 | NUR ---
SHIFT SUMMARY PT A&O X 4- PT SITTING IN SMALL CHAIR AT BEGINNING OF SHIFT- PT IN GOOD SPIRITS AND EXCITED THAT SHE HAD A SHOWER TODAY- PT REQUESTED TO GET IN RECLINER D/T RIGHT FOOT PAIN AND REQUESTED TO ELEVATE IT- 3 PERSON ASSIST WITH GAIT GAIT BELT AND FWW- PT HELPED WITH STEPING UP ON STEP SINCE RECLINER IS HIGHER- PT REQUESTED PAIN MEDICATION FOR FOOT MULTIPLE TIMES AND NOTIFIED PT THAT SHE WOULD HAVE TO WAIT FOR IT TO BE AVAILABLE- GAVE NORCO X 1 IN THE NIGHT - PT IN RECLINER SLEEPING WITH CPAP IN PLACE- PT WORE CPAP MOST OF NIGHT WITHOUT PROBLEMS- PT AWAKE IN RECLINER CALL LIGHT WITHIN REACH
[2022-03-04 06:53] LABS: Hematocrit 26.9 % (33.0-51.0); Hemoglobin 8.7 g/dL (11.5-16.0)
[2022-03-04 07:25] LABS: Magnesium, Blood 2.3 mg/dL (1.6-2.4)
[2022-03-04 07:29] LABS: Anion Gap 10 mmol/L (6-16); Blood Urea Nitrogen 123 mg/dL (8-24); CO2, Blood 26 mmol/L (21-32); Calcium, Blood 8.9 mg/dL (8.5-10.1); Chloride, Blood 93 mmol/L (98-108); Creatinine, Blood 5.35 mg/dL (0.40-1.00); Glomerular Filtration Rate 9 (60-); Glucose, Blood 388 mg/dL (70-99); Phosphorus, Blood 7.8 mg/dL (2.5-4.9); Potassium, Blood 6.3 mmol/L (3.5-5.5); Sodium, Blood 129 mmol/L (136-145)
--- NOTE | 2022-03-04 07:30 | NUR ---
DIALYSIS NOTE COUNCILLOR ABORIGINAL [place] IN TO DRAW LABS FROM HD CATH AT REQUEST OF BEDSIDE RN AND LAB AND WITH APPROVAL FROM .
--- NOTE | 2022-03-04 18:30 | NUR ---
DAYSHIFT SUMMARY Lab notified RN of critical labs, Na 129 & K+ 6.3, notified. Patient doing well, went to dialysis today. CBGs & Blood Pressure stable today, no PRNs or extra SS coverage needed. Patient worked with Occupational therapy today. Patient continues to particpate in calculating sliding scale insulin & carb counting coverage, needs help from staff for each step. No other concerns this shift. Will continue plan of care, awaiting placement.
--- NOTE | 2022-03-05 05:27 | NUR ---
SHIFT SUMMARY PT A&O X 4- PT UP TO CHAIR T/O NIGHT- PT REPORTED PAIN IN ARMS AND BACK- GAVE NORCO ONCE IN THE NIGHT- PT REMOVED CPAP MULTIPLE TIMES T/O NIGHT- APPLIED 3L O2- CALL LIGHT IN REACH
--- NOTE | 2022-03-05 05:49 | NUR ---
PHONE CALL TO DR. SHERMAN RE: CBG 384 - ORDER TO MONITOR- NO COVERAGE BEING THAT PT HAS AC AND CARB COUNT COVERAGE ALONG WITH LONG ACTING INSULIN
[2022-03-05 07:25] LABS: BASOPHILS ABSOLUTE AUTO 0.08 K/mm3 (0.00-0.23); BASOPHILS PERCENT AUTO 1 % (0-2); EOSINOPHILS ABSOLUTE AUTO 0.43 K/mm3 (0.00-0.68); EOSINOPHILS PERCENT AUTO 4 % (0-6); Hematocrit 28.8 % (33.0-51.0); Hemoglobin 9.2 g/dL (11.5-16.0); IMMATURE GRAN ABSOLUTE AUTO 0.04 K/mm3 (0.00-0.10); IMMATURE GRAN PERCENT AUTO 0 % (0-1); LYMPHOCYTES ABSOLUTE AUTO 0.55 K/mm3 (0.84-5.20); LYMPHOCYTES PERCENT AUTO 5 % (21-46); MONOCYTES ABSOLUTE AUTO 1.67 K/mm3 (0.16-1.47); MONOCYTES PERCENT AUTO 14 % (4-13); Mean Corpuscular HGB Conc 31.9 g/dL (31.5-36.5); Mean Corpuscular Volume 97 fL (80-100); Mean Platelet Volume 9.8 fL (9.1-12.4); NEUTROPHILS ABSOLUTE AUTO 9.24 K/mm3 (1.96-9.15); NEUTROPHILS PERCENT AUTO 77 % (41-73); Platelet Count 413 K/mm3 (150-400); RDW Coefficient Variation 16.1 % (11.7-14.2); RDW Standard Deviation 57.1 fL (35.1-46.3); Red Blood Cell Count 2.97 M/mm3 (3.80-5.20); White Blood Cell Count 12.01 K/mm3 (4.00-11.30)
[2022-03-05 07:55] LABS: Bun/Creatinine Ratio 20.3 (12.0-20.0); Calcium, Blood 8.7 mg/dL (8.5-10.1); Creatinine, Blood 4.49 mg/dL (0.40-1.00); Potassium, Blood 5.8 mmol/L (3.5-5.5)
--- NOTE | 2022-03-05 13:12 | NUR ---
WOUND CARE RLE DRESSING CHANGED PER ORDER. PT TOLERATED WELL
--- NOTE | 2022-03-05 17:04 | NUR ---
SHIFT SUMMARY- NO ACUTE CHANGES. PT STOOD WITH EACH CHANGE WITH SBAX2 FWW, COULD TOLERATE 1-2 MINS AT A TIME. ON RA DURING DAY. BG IMPROVED DAY PROGRESSED, SEE EMAR. BANDAGES C/D/I. PT COOPERATIVE AND PLEASANT THIS SHIFT. WILL CONTINUE TO MONTIOR. UP IN CHAIR THROUGHOUT CHAIR. CALL LIGHT IN REACH, CHAIR ALARM.
--- NOTE | 2022-03-06 06:42 | NUR ---
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
[2022-03-06 09:36] LABS: BASOPHILS ABSOLUTE AUTO 0.06 K/mm3 (0.00-0.23); BASOPHILS PERCENT AUTO 1 % (0-2); EOSINOPHILS ABSOLUTE AUTO 0.48 K/mm3 (0.00-0.68); EOSINOPHILS PERCENT AUTO 6 % (0-6); Hematocrit 28.3 % (33.0-51.0); Hemoglobin 9.2 g/dL (11.5-16.0); IMMATURE GRAN ABSOLUTE AUTO 0.02 K/mm3 (0.00-0.10); IMMATURE GRAN PERCENT AUTO 0 % (0-1); LYMPHOCYTES ABSOLUTE AUTO 0.58 K/mm3 (0.84-5.20); LYMPHOCYTES PERCENT AUTO 7 % (21-46); MONOCYTES ABSOLUTE AUTO 0.81 K/mm3 (0.16-1.47); MONOCYTES PERCENT AUTO 10 % (4-13); Mean Corpuscular HGB 31.1 pg (26.0-34.0); Mean Corpuscular HGB Conc 32.5 g/dL (31.5-36.5); Mean Corpuscular Volume 96 fL (80-100); Mean Platelet Volume 9.7 fL (9.1-12.4); NEUTROPHILS ABSOLUTE AUTO 5.96 K/mm3 (1.96-9.15); NEUTROPHILS PERCENT AUTO 75 % (41-73); Platelet Count 421 K/mm3 (150-400); RDW Standard Deviation 56.5 fL (35.1-46.3); Red Blood Cell Count 2.96 M/mm3 (3.80-5.20); White Blood Cell Count 7.91 K/mm3 (4.00-11.30)
[2022-03-06 09:58] LABS: Albumin, Blood 3.1 g/dL (3.4-5.0); Anion Gap 12 mmol/L (6-16); Blood Urea Nitrogen 120 mg/dL (8-24); Bun/Creatinine Ratio 22.4 (12.0-20.0); CO2, Blood 26 mmol/L (21-32); Calcium, Blood 9.1 mg/dL (8.5-10.1); Chloride, Blood 94 mmol/L (98-108); Creatinine, Blood 5.35 mg/dL (0.40-1.00); Glomerular Filtration Rate 9 (60-); Glucose, Blood 246 mg/dL (70-99); Magnesium, Blood 2.3 mg/dL (1.6-2.4); Potassium, Blood 5.1 mmol/L (3.5-5.5); Sodium, Blood 132 mmol/L (136-145)
--- NOTE | 2022-03-06 18:20 | NUR ---
PATIENT HAD DIALYSIS THIS AM. BP MEDICATION WAS HELD PRIOR TO DIALYSIS DUE TO THE BORDERLINE LOW READING. PATIENT SCRATCHED HER IV OUT, SO PROVIDER WAS CALLED AND DOES WANT ANOTHER PLACED. ATTEMPTS X 6 MAKE BY 4 STAFF MEMEBERS WITHOUT SUCCUESS. PATIENT TOOK PAIN MEDICATON THIS AFTERNOON AND IT WAS EFFECTIVE. BLOOD SUGARS HAVE NEEDED COVERAGE WITH SS AND SCHEDULED WITH EACH MEAL. PATIENT DESIRES MORE FLUIDS THAN ALLOWED. SHE IS WITHIN HER PARAMETER BUT REQUESTS MORE WITH EACH MEAL AND BETWEEN. IT WAS REPORTED THAT WOUND CARE NURSES WOULD CARE FOR RIGHT FOOT ULCER, HOWEVER THIS SHIFT WOUND CARE WAS NOT PRESENT ON UNIT.
--- NOTE | 2022-03-07 05:49 | NUR ---
SHIFT SUMMARY PATIENT ALERT AND ORIENTED X3, OCCASIONAL CONFUSION. MEDICATED PER EMAR. HAD NO COMPLAINTS OF SHORTNESS OF BREATH. NO ACUTE ISSUES NOTED OVERNIGHT. CALL LIGHT WITHIN REACH. REPORT GIVEN TO ONCOMING RN.
--- NOTE | 2022-03-07 17:07 | NUR ---
Patient worked with OT this morning, walked from recliner to bathroom for a shower. Patient tolerated activity, needed redirection for safety. Patient fearful of falling in shower. Activity required +2 staff hands on assist. Patient had pain meds this morning, reported PRN not effective. Changed dressing on right heel. CBGs WNL this shift, SSI & carb count insulin administred. PM BP was 177/70, IV Labetolol given. changed CBG orders to AC & HS. Discontinued Q4H CBG checks. New order to check CBGs at midnight, since patient will already be awake at 0000 for vitals & scheduled Hydralazine & Clonidine. No other changes to patient status this shift. Will continue plan of care, awaiting placement.
--- NOTE | 2022-03-08 06:43 | NUR ---
SHIFT SUMMARY PATIENT ALERT AND ORIENTED X3-4. MEDICATED PER EMAR FOR PAIN. PATIENT ATTEMPTED TO EAT RICE CAKES WITH CREAM CHEESE A SNACK, PATIENT EDUCATED ON THE IMPORTANCE OF NOT SNACKING BETWEEN MEALS DUE TO HOW EASILY FOOD AFFECTS HER BLOOD SUGAR. PATIENT STATED "I WOULDN'T BE HUNGRY IF MY BLOOD SUGAR WAS TOO HIGH". CHECKED PATIENT'S CBG AND EXPLAINED WHAT APPROPRIATE BLOOD SUGAR LEVELS SHOULD BE. CALL LIGHT WITHIN REACH. REPORT GIVEN TO ONCOMING RN.
--- NOTE | 2022-03-08 18:16 | NUR ---
DAYSHIFT SUMMARY Patient had dialysis this morning, did not work with therapy today. Patient upset with breakfast options, she wanted different food. Provided education on carbs & diabetes. Patient tearful, and upset about spending the holidays in the hospital. she struggles to understand her situation and the importance of 24/7 nursing care to manage her chronic illness. Talked about how she has permanent guardianship, (documentation is in her hard chart) Patient disagrees with this plan. Patient tearful and said I will never ever eat sugar again, I didn't know how important it was but now I do, and I will always take my shots. Vitals stable today, Blood pressure controlled, this evening BP 112/79. CBG stable, SSI & carb counting insulin administred. Will continue plan of care, awaiting discharge planning.
--- NOTE | 2022-03-09 06:36 | NUR ---
SHIFT SUMMARY PATIENT ALERT AND ORIENTED X3. MEDICATED PER EMAR FOR PAIN. NO ACUTE ISSUES NOTED OVERNIGHT. CALL LIGHT WITHIN REACH. REPORT GIVEN TO ONCOMING RN.
--- NOTE | 2022-03-09 17:35 | NUR ---
DAYSHIFT SUMMARY Morning BP 170/64, IV Hydralazine given for HTN. CBGs >200 all day, the holiday meals served today, contain a higher carb count than usual. Patient continues to participate in self-adminsitering her own insulin w/ RN supervision. Requires help w/ counting carbs, she has trouble adding numbers. Patient worked w/ therapy today, ambulated 100 feet, w/ intermittent breaks to sit & rest. Patient tolerated activity very well, no c/o pain. Patient sitting in recliner all day, encouraged patient to lay in bed, so staff can reposition with pillows. Patients declined stated she was fine in the recliner. Dialysis staff not here today, patient had dialysis yesterday. Dr. Deng said it was okay to cancel AM labs today, and draw labs tomorrow. Will continue plan of care, awaiting placement.
--- NOTE | 2022-03-10 03:09 | NUR ---
SHIFT SUMMARY NOC PT A/O X4. FORGETFUL UPON WAKING BUT REORIENTS QUICKLY. PT CBG WAS 163 AT MIDNIGHT BUT PT HAD NAUSEA AND HAD C/O RUELAS PT MEDICATED PER EMAR. CBG WAS TAKEN AND CBG WAS 347. HOSPITALIST NOTIFIED AND 4 UNITS OF HUMALOG ADMINISTERED. PT HAS DIALYSIS SCHEDULED FOR 0900 ON 03/10/22. PT IS CURRENTLY RESTING IN CHAIR WITH CPAP ON AND CHAIR ALARM ON, AND CALL LIGHT WITHIN REACH. WCTM.
[2022-03-10 09:50] LABS: Hematocrit 25.9 % (33.0-51.0); Hemoglobin 8.4 g/dL (11.5-16.0)
[2022-03-10 10:08] LABS: Albumin, Blood 2.6 g/dL (3.4-5.0); Anion Gap 12 mmol/L (6-16); Blood Urea Nitrogen 99 mg/dL (8-24); Bun/Creatinine Ratio 21.9 (12.0-20.0); CO2, Blood 25 mmol/L (21-32); Calcium, Blood 8.3 mg/dL (8.5-10.1); Chloride, Blood 95 mmol/L (98-108); Creatinine, Blood 4.53 mg/dL (0.40-1.00); Glomerular Filtration Rate 11 (60-); Glucose, Blood 340 mg/dL (70-99); Magnesium, Blood 2.2 mg/dL (1.6-2.4); Phosphorus, Blood 6.4 mg/dL (2.5-4.9); Potassium, Blood 4.5 mmol/L (3.5-5.5); Sodium, Blood 132 mmol/L (136-145)
--- NOTE | 2022-03-10 11:03 | NUR ---
After shift change pt crying out in room. Patient stated she didn't feel well. Patient is pale, diaphoretic, N/V. PRN Zofran given. CBG 451mg/dL, BP 102/46, sats stable on RA. Reported concerns to MD, instructed to given Humalog 10 units of insulin, hold breakfast, and recheck in 1 hour. 0900 CBG was 398mg/dL & BP 163/58, MD instructed RN to give another 10 units of Humalog, scheduled Lantus, BP meds, and to hold food until CBG <300mg/dL. Rechecked CBG at 1000, now CBG 273mg/dL, patient denies s/sx of hyperglycemia. Resting in dialysis chair, RR even/nonlabored. Notified MD, will continue to monitor check CBG at 1200 & patient can eat lunch.
--- NOTE | 2022-03-10 17:20 | NUR ---
DAYSHIFT SUMMARY CBG at lunch time was 90, rechecked CBG after finished eating and her CBG was 104mg/dL. Held SS & carb counting insulin for lunch time. CBG before dinner was 132mg/dL. Patient appears withdrawn, tearful t/o the day. Complained of pain & requested PRN Hydrocodone for foot pain. Later patient was crying d/t severe pain in BLE. Encouraged patient to get OOB to stretch legs/walk. Patient declined activity, and asked for her BLE to be elevated w/ pillow. Patient declined to work with physical therapy this afternoon. Will continue plan of care, awaiting placement.
--- NOTE | 2022-03-11 04:39 | NUR ---
ASSISTANT PROFESSOR OF ENGLISH SUMMARY A/OX3. NO ACUTE CHANGES. 0014 BS 331. PT IN RECLINER CHAIR T/O THE SHIFT. EDUCATED PT ON IMPORTANCE OF REPOSITIONING T/O THE NIGHT T/PREVENT PRESSURE SORES AND HEAL FRAGILE SKIN--PT TEARFUL AND REFUSED T/BE XFERED T/BED. PT ON 1-1.5 LIT O2 NC WHEN AWAKE. ON BIPAP FOR APROX 3 HOURS; PT REQUESTED T/REMOVE AT 0350. ENCOURAGED PT TO CONT T/WEAR--PT REFUSED; REMOVED MASK AND PUT ON NC; CONT PULSE OX IN PLACE. PT CONT TO C/O PAIN IN RT HEEL--MED P/EMAR. PT TEARFUL AT TIMES DURING THE EVENGING SAYING SHE WANTS TO GO HOME. CONT W/FUID RESTRICTIN 300MLS AT NIGHT; PT ASKING F/MORE FLUIDS AT NIGHT.
[2022-03-11 08:15] LABS: Hematocrit 30.1 % (33.0-51.0); Hemoglobin 9.4 g/dL (11.5-16.0)
[2022-03-11 08:17] LABS: Anion Gap 13 mmol/L (6-16); Blood Urea Nitrogen 74 mg/dL (8-24); Bun/Creatinine Ratio 18.3 (12.0-20.0); CO2, Blood 28 mmol/L (21-32); Chloride, Blood 91 mmol/L (98-108); Creatinine, Blood 4.04 mg/dL (0.40-1.00); Glomerular Filtration Rate 13 (60-); Glucose, Blood 412 mg/dL (70-99); Magnesium, Blood 2.4 mg/dL (1.6-2.4); Phosphorus, Blood 6.8 mg/dL (2.5-4.9); Potassium, Blood 4.8 mmol/L (3.5-5.5); Sodium, Blood 132 mmol/L (136-145)
--- NOTE | 2022-03-11 13:53 | NUR ---
Spiritual Care Visit. Pt. is awake in her recliner and welcomes my visit. Pt. is pleasant and displays evidence of a hopeful discharge. Pt. is concerned an insulin pump may not be approved. Listen with empathy and a calming presence. Pt. displayed evidence of engagement and awareness. Prayed with Pt. and continue to re-establish rapport. Pt. verbalized gratitude for chaim spiritual care visit.
--- NOTE | 2022-03-11 17:02 | NUR ---
SHIFT SUMMARY PATIENT MEDICATED FOR PAIN X1, PATIENT ALSO HAS SCHEDULED TYLENOL. PATIENT DENIES NAUSEA AND SHORTNESS OF BREATH. PATIENT IS A 1P WITH FWW. PATIENT DECLINED PT AND OT TODAY. NEW ORDERS TO HOLD BREAKFAST IF CBG OVER 350. PATIENT IS EATING AND DRINKING WELL. PATIENT DID WELL WITH FLUID RESTRICTION TODAY. PATIENT AWAITING PLACEMENT. PATIENT IS A&O X3, PATIENT IS VERY FORGETFUL, SOMETIMES HARD TO REDIRECT. PATIENT IS PLEASANT AND COOPERATIVE WITH CARE.
--- NOTE | 2022-03-12 04:30 | NUR ---
LIGHT INDUSTRIAL SUMMARY NO ACUTE CHANGES. A/OX3. PT IN CHAIR T/O SHIFT. 1L O2 NC--SAT IN 90'S WITH PERIODIC BRIEF FALLS INTO MID/UPPER 80'S. PT ON BIPAP WHEN SLEEPING--TOLERATED WELL THIS SHIFT. PT HAD 1 LARGE SOFT/FORMED BM. PT C/O OF RIGHT HEEL PAIN; FOATED BILAT HEELS WHEN SLEEPING. PT USES CALL LIGHT APPROPRIATELY AND CAN MAKE NEEDS KNOWN. CALL LIGHT IN REACH.
--- NOTE | 2022-03-12 14:48 | NUR ---
PATIENT BACK IN ROOM FROM DIALYSIS, GUARDIAN IN VISITING NOW, PLEASANT AND COOPERATIVE, CALL LIGHT WITH IN REACH
--- NOTE | 2022-03-13 04:24 | NUR ---
SHIFT SUMMARY; NO ACUTE CHANGES OVERNIGHT. PT RESTED IN CHAIR THROUGHOUT THE NIGHT. EXTENSIVE EXCORITATION ON THE PTS BUTTOCK, HOWEVER PT DECLINES TO SLEEP IN THE BED. PT WITH STABLE O2 SATS ON 1.5L NC T/O THE NIGHT. PT WITH TWO SOAKED ATTENDS LAST NIGHT. PT ADHERED TO 1L FLUID RESTRICTION WELL THE PT DID NOT HAVE ANY SNACKS LAST NIGHT. CURRENTLY THE PT IS SLEEPING IN THE CHAIR WITH THE CALL LIGHT WITHIN REACH.
--- NOTE | 2022-03-13 16:59 | NUR ---
SHIFT SUMMARY PT COOPERATIVE WITH CARE. HER BLOOD SUGAR WAS ELEVATED THIS AM AND HAS BEEN FOR THE PAST FEW DAYS. ADDITIONAL INSULIN ADDED BEFORE BED. R FOOT WOUND OPEN TO AIR BECAUSE DRESSING REMOVED BY WOUND CARE NURSE. VSS.
--- NOTE | 2022-03-14 04:16 | NUR ---
SHIFT SUMMARY; NO ACUTE CHANGES OVERNIGHT. PTS O2 SATS REMAIN STABLE ON 1.5L NC AND ON THE BIPAP LAST NIGHT FOR 4 HOURS. PT RESTED IN CHAIR ALL NIGHT LAST NIGHT. PT WAS KIND AND COOPERATIVE OF CARE. PT WITH EXCORITATION AND ULCERATION UNDER HER BUTTOCKS AND IN HER ALY AREA, BARRIER CREAM APPLIED, POWDER APPLIED AND MEPILEXS. PTS WOUND ON HER R FOOT IS OPEN TO AIR PER TAX COMMISSIONER. PT DENIES ANY SOB THIS PM. CURRENTLY THE PT IS RESTING IN THE CHAIR WITH THE CHAIR LOCKED INTO POSITION AND THE CALL LIGHT WITHIN REACH.
[2022-03-14 11:12] LABS: Hematocrit 25.2 % (33.0-51.0); Hemoglobin 8.4 g/dL (11.5-16.0)
[2022-03-14 12:42] LABS: Magnesium, Blood 2.5 mg/dL (1.6-2.4)
[2022-03-14 12:54] LABS: Albumin, Blood 3.1 g/dL (3.4-5.0); Anion Gap 11 mmol/L (6-16); Blood Urea Nitrogen 58 mg/dL (8-24); Bun/Creatinine Ratio 13.8 (12.0-20.0); CO2, Blood 27 mmol/L (21-32); Calcium, Blood 8.9 mg/dL (8.5-10.1); Chloride, Blood 94 mmol/L (98-108); Creatinine, Blood 4.21 mg/dL (0.40-1.00); Glomerular Filtration Rate 13 (60-); Glucose, Blood 159 mg/dL (70-99); Phosphorus, Blood 5.5 mg/dL (2.5-4.9); Potassium, Blood 4.2 mmol/L (3.5-5.5); Sodium, Blood 132 mmol/L (136-145)
--- NOTE | 2022-03-14 17:09 | NUR ---
SHIFT SUMMARY NO ACUTE CHANGES DURING SHIFT. PT ALERT AND ORIENTED, CALLS APPROPRIATELY. PT X 2 ASSIST WITH WALKER. PT TRANSITIONED TO RA, SPO2 > 92%. PT AMULATED HALLWAYS WITH PT TODAY. PT PENDING PLACEMENT. WILL CONTINUE TO MONITOR. CALL LIGHT WITHIN REACH.
--- NOTE | 2022-03-15 03:20 | NUR ---
Patient resting in chair, brief changed earlier, pain controlled with prn medication.
[2022-03-15 07:48] LABS: Hematocrit 29.4 % (33.0-51.0); Hemoglobin 9.8 g/dL (11.5-16.0)
[2022-03-15 07:52] LABS: Albumin, Blood 3.1 g/dL (3.4-5.0); Anion Gap 9 mmol/L (6-16); Blood Urea Nitrogen 84 mg/dL (8-24); Bun/Creatinine Ratio 17.1 (12.0-20.0); CO2, Blood 27 mmol/L (21-32); Chloride, Blood 93 mmol/L (98-108); Creatinine, Blood 4.91 mg/dL (0.40-1.00); Glomerular Filtration Rate 10 (60-); Glucose, Blood 196 mg/dL (70-99); Magnesium, Blood 2.3 mg/dL (1.6-2.4); Phosphorus, Blood 7.4 mg/dL (2.5-4.9); Potassium, Blood 4.9 mmol/L (3.5-5.5); Sodium, Blood 129 mmol/L (136-145)
--- NOTE | 2022-03-15 17:35 | NUR ---
SHIFT SUMMARY PT IS AxOx4 WITH INTERMITTENT CONFUSION OR FORGETFULNESS. PT REPORTS PAIN IN BLE. MEDICATED PER EMAR WITH REPORTED RELIEF. PT IS UP IN RECLINER FOR THE WHOLE SHIFT. PT DECLINES GETTING UP OR TRANSFERRING TO BED. PT COMPLIANT WITH REPOSITIONING WITH ASSISTANCE. PT DID NOT GET HD THIS SHIFT, BUT IS EXPECTED TO GET HD TOMORROW. MEPILEX ON BUTTOCKS REMOVED THIS SHIFT SKIN APPEARS C/D/I. MEDICATED POWDER APPLIED TO THIGH FOLDS AND PERIAREA. PT IS CURRENTLY SITTING IN RECLINER EATING DINNER. VITALS REVIEWED. CALL LIGHT IN REACH. CURRENT PLAN IS SEEKING GR[facility] HOOKER CARE.
--- NOTE | 2022-03-16 05:22 | NUR ---
Patient resting in room, no complaints of pain or discomfort.
[2022-03-16 09:39] LABS: Hematocrit 31.5 % (33.0-51.0); Hemoglobin 10.3 g/dL (11.5-16.0)
[2022-03-16 09:41] LABS: Magnesium, Blood 2.3 mg/dL (1.6-2.4)
[2022-03-16 09:43] LABS: Albumin, Blood 3.2 g/dL (3.4-5.0); Anion Gap 14 mmol/L (6-16); Blood Urea Nitrogen 99 mg/dL (8-24); Bun/Creatinine Ratio 16.4 (12.0-20.0); CO2, Blood 22 mmol/L (21-32); Calcium, Blood 8.9 mg/dL (8.5-10.1); Chloride, Blood 91 mmol/L (98-108); Creatinine, Blood 6.04 mg/dL (0.40-1.00); Glomerular Filtration Rate 8 (60-); Glucose, Blood 421 mg/dL (70-99); Phosphorus, Blood 8.7 mg/dL (2.5-4.9); Potassium, Blood 5.1 mmol/L (3.5-5.5); Sodium, Blood 127 mmol/L (136-145)
--- NOTE | 2022-03-16 18:29 | NUR ---
SUMMARY- PT A/O X3-4- CHILDLIKE- PREFERS SITTING UP IN RECLINER THROUGHOUT SHIFT. PT AMBULATED TO BATHROOM WITH PT AND STITCHDOWNS TOE FORMER GAIT BELT AND MULT BREAKS. SHOWERED AND SAT UP IN CHAIR FOR 3 HOURS. TOLERATING DIET AND MAINTAINING FLUID RESTRICTION. HAD DIALYSIS TODAY. PAIN IN HEALS/LE CONTROLLED WITH NORCO Q8 PRN. HAD LG SOFT BM TODAY. STILL AWAITING PLACEMENT
--- NOTE | 2022-03-17 03:57 | NUR ---
Patient resting in room, pain controlled with prn medication.
[2022-03-17 07:04] LABS: Hematocrit 29.9 % (33.0-51.0); Hemoglobin 9.8 g/dL (11.5-16.0)
[2022-03-17 07:32] LABS: Anion Gap 9 mmol/L (6-16); Blood Urea Nitrogen 82 mg/dL (8-24); Bun/Creatinine Ratio 17.4 (12.0-20.0); CO2, Blood 27 mmol/L (21-32); Calcium, Blood 8.6 mg/dL (8.5-10.1); Chloride, Blood 96 mmol/L (98-108); Glomerular Filtration Rate 11 (60-); Glucose, Blood 241 mg/dL (70-99); Magnesium, Blood 2.4 mg/dL (1.6-2.4); Phosphorus, Blood 6.7 mg/dL (2.5-4.9); Potassium, Blood 5.5 mmol/L (3.5-5.5); Sodium, Blood 132 mmol/L (136-145)
--- NOTE | 2022-03-18 05:38 | NUR ---
A/OX2-3; CALM AND COOPERATIVE. REYNALDO SLING TRANSFER FROM BED TO CHAIR. PLAN FOR DIALYSIS TODAY PER REPORT. C/O BACK AND LEG PAIN; PRNS PER ORDERS; HELPFUL PER PATIENT BED ALARM SET. CALL LIGHT IN REACH; ENCOURAGED TO MAKE NEEDS KNOWN. SLEEP PROMOTED.
--- NOTE | 2022-03-18 07:45 | NUR ---
PROVIDER CONTACT CONTACTED DR CANALES ABOUT 454 CBG. ORDER GIVEN TO FOLLOW SLIDING SCALE.
[2022-03-18 08:33] LABS: Hematocrit 30.4 % (33.0-51.0); Hemoglobin 9.8 g/dL (11.5-16.0)
[2022-03-18 08:56] LABS: Magnesium, Blood 2.6 mg/dL (1.6-2.4)
[2022-03-18 09:03] LABS: Anion Gap 14 mmol/L (6-16); Blood Urea Nitrogen 110 mg/dL (8-24); Bun/Creatinine Ratio 18.8 (12.0-20.0); CO2, Blood 23 mmol/L (21-32); Chloride, Blood 90 mmol/L (98-108); Creatinine, Blood 5.85 mg/dL (0.40-1.00); Glomerular Filtration Rate 8 (60-); Glucose, Blood 507 mg/dL (70-99); Sodium, Blood 127 mmol/L (136-145)
[2022-03-18 09:04] LABS: Phosphorus, Blood 8.3 mg/dL (2.5-4.9); Potassium, Blood 6.9 mmol/L (3.5-5.5)
--- NOTE | 2022-03-18 16:34 | NUR ---
SHIFT SUMMARY PATIENT IS ALERT AND ORIENTED 2-3X. PATIENT HAS BEEN PLEASENT AND COOPERATIVE WITH CARE. PATIENT HAD DIALYSIS TODAY WITH NO COMPLICATIONS. PATIENT HAS HAD HIGH CBG MEDICATED AC AND CARB COUNT. PATIENT HAS COMPLAINTS OF PAIN AND MEDICATED PER EMAR. PATIENT HAS HAD NO COMPLAINTS OF SOB, NAUSEA, OR VOMITTING. BED IN LOCKED AND LOWEST POSITION. WILL MONITOR UNTIL SHIFT CHANGE.
[2022-03-18 22:19] LABS: Glucose, Blood 637 mg/dL (70-99)
--- NOTE | 2022-03-19 05:22 | NUR ---
A/OX2-3; FORGETFUL, DISORIENTED TO DATE (STATED IT WAS THE 33). LIFT TRANSFER. INC. Q2 TURN. L THIGH DRSG CHANGED - BACITRACIN OINTMENT APPLIED PER ORDERS. PORT DRSG INTACT. PROVIDER CONTACTED FOR CBG 495; 4 EXTRA UNITS INSULIN GIVEN PER ORDERS (8 TOTAL). THIS RN DID NOT ALLOW PATIENT TO HAVE SNACKS OR COFFEE CART DRINKS. USES CALL LIGHT APPROPRIATELY; ENCOURAGED TO MAKE NEEDS KNOWN. SLEEP PROMOTED.
[2022-03-19 10:06] LABS: Hematocrit 29.6 % (33.0-51.0); Hemoglobin 9.7 g/dL (11.5-16.0)
[2022-03-19 11:29] LABS: Albumin, Blood 3.1 g/dL (3.4-5.0); Anion Gap 13 mmol/L (6-16); Blood Urea Nitrogen 85 mg/dL (8-24); Bun/Creatinine Ratio 17.2 (12.0-20.0); CO2, Blood 23 mmol/L (21-32); Calcium, Blood 8.9 mg/dL (8.5-10.1); Chloride, Blood 94 mmol/L (98-108); Creatinine, Blood 4.93 mg/dL (0.40-1.00); Glomerular Filtration Rate 10 (60-); Glucose, Blood 378 mg/dL (70-99); Magnesium, Blood 2.4 mg/dL (1.6-2.4); Phosphorus, Blood 7.2 mg/dL (2.5-4.9); Potassium, Blood 5.6 mmol/L (3.5-5.5); Sodium, Blood 130 mmol/L (136-145)
--- NOTE | 2022-03-19 17:18 | NUR ---
PT IS ALERT AND ORIENTED X4 WITH INTERMITTED EPISODES OF CONFUSION. PT RECEIVED DIALYSIS TODAY AND REPORTS TO BE EXCESSIVELY TIRED. PT REPORTS CONTINUED PAIN IN LEFT FOOT. FLUID RESTRICTION IS IN EFFECT. PT SEAMS TO BE RESTING COMFORTABLY IN THE CHAIR. THE CALL LIGHT IS WITHIN REACH AND PT DEMONSTRATED ABILITY TO USE CALL LIGHT THROUGHOUT SHIFT.
[2022-03-20 05:29] LABS: Hematocrit 32.3 % (33.0-51.0); Hemoglobin 10.4 g/dL (11.5-16.0)
--- NOTE | 2022-03-20 05:40 | NUR ---
A/OX2-4; SELF, PLACE. FORGETFUL/ CONFUSED AT TIMES. NO ACUTE EVENTS OVERNIGHT. 2X ASSIST TO CHANGE /REPOSITION IN BED. DRSGS CDI AT THIS TIME. CPAP IN PLACE FROM APPROX MIDNIGHT TO 0500; 1.5 L O2. ABD IS DISTENDED /FIRM. C/O PAIN AT 7/10 TO R LEG; PRN ANALGISIC GIVEN; HELPUL PER PATIENT. SLEEP PROMOTED. BED ALARM SET, CALL LIGHT IN REACH; ENCOURAGED TO MAKE NEEDS KNOWN.
[2022-03-20 05:53] LABS: Anion Gap 11 mmol/L (6-16); Blood Urea Nitrogen 69 mg/dL (8-24); Bun/Creatinine Ratio 16.4 (12.0-20.0); CO2, Blood 26 mmol/L (21-32); Chloride, Blood 92 mmol/L (98-108); Creatinine, Blood 4.21 mg/dL (0.40-1.00); Glomerular Filtration Rate 13 (60-); Glucose, Blood 448 mg/dL (70-99); Magnesium, Blood 2.3 mg/dL (1.6-2.4); Phosphorus, Blood 6.7 mg/dL (2.5-4.9); Potassium, Blood 5.8 mmol/L (3.5-5.5); Sodium, Blood 129 mmol/L (136-145)
--- NOTE | 2022-03-20 17:48 | NUR ---
PT IS ALERT AND ORIENTED X4. FAMILY IS CURRENTLY VISITING WITH PT. PT RECIEVED DIALYSIS TODAY. PT APPEARS TO BE RESTING COMFORTABLY IN THE CHAIR. CALL LIGHT IS IN REACH.
--- NOTE | 2022-03-20 22:00 | NUR ---
PT WAS STATING A HIGH LEVEL OF PAIN, AFTER PAIN MEDICATION ADMINISTRATION - SEE EMAR, HOWEVER PT FELL ASLEEP AFTER NORCO GIVEN.
--- NOTE | 2022-03-21 03:21 | NUR ---
PT HAS BEEN SLEEPING IN THE RECLINER CHAIR [facility]. PT IS CURRENTLY SLEEPING, NO S/S OF DISTRESS NOTED.
--- NOTE | 2022-03-21 05:32 | NUR ---
SHIFT SUMMARY - NO ACUTE CHANGES THROUGHOUT THIS SHIFT. PT DID REPORT INCREASED PAIN, AND REPORTED SHE WAS "GOING TO TALK TO THE DR. ABOUT HER PAIN MEDICATION." PT THEN DRIFTED OFF TO SLEEP AFTER HER PAIN MEDICATION WAS GIVEN - SEE EMAR. PT SLEPT IN HER RECLINER CHAIR, NO S/S OF DISTRESS NOTED. CALL LIGHT WITHIN REACH. FLUIDS AT BEDSIDE. FLUID RESTRICTION IN PLACE. WILL CONTINUE TO MONITOR UNTIL AM SHIFT CHANGE.
[2022-03-21 07:28] LABS: Hematocrit 32.9 % (33.0-51.0); Hemoglobin 10.4 g/dL (11.5-16.0)
--- NOTE | 2022-03-21 07:44 | NUR ---
DIALYSIS NOTE RUBBER COVERING MACHINE OPERATOR IN TO DRAW LABS FROM HD CATH AT REQUEST OF BEDSIDE RN AND LAB AND WITH APPROVAL FROM .
[2022-03-21 07:49] LABS: Albumin, Blood 2.9 g/dL (3.4-5.0); Anion Gap 12 mmol/L (6-16); Blood Urea Nitrogen 63 mg/dL (8-24); Bun/Creatinine Ratio 15.4 (12.0-20.0); CO2, Blood 27 mmol/L (21-32); Calcium, Blood 9.2 mg/dL (8.5-10.1); Chloride, Blood 93 mmol/L (98-108); Creatinine, Blood 4.09 mg/dL (0.40-1.00); Glomerular Filtration Rate 13 (60-); Glucose, Blood 555 mg/dL (70-99); Magnesium, Blood 2.5 mg/dL (1.6-2.4); Phosphorus, Blood 6.5 mg/dL (2.5-4.9); Potassium, Blood 5.3 mmol/L (3.5-5.5); Sodium, Blood 132 mmol/L (136-145)
--- NOTE | 2022-03-21 08:30 | NUR ---
CRITICAL VALUE NOTIFICATION- NOTIFIED OF BG 555 ON MORNING LABS. ORDER RECIEVED TO MEDICATE PER SS COVERAGE ORDERED AND HOLD BREAKFAST. CARB COUNT COVERAGE HELD D/T PT BEING NPO.
[2022-03-21 08:52] LABS: Glucose, Blood 578 mg/dL (70-99)
--- NOTE | 2022-03-21 09:45 | NUR ---
BG RECHECK PT BG [address] LEMUS, SHE IS AWARE. ORDER RECIEVED TO GIVE HER HER BREAKFAST AND COVER WITH THE CARB COVERAGE NOW.
--- NOTE | 2022-03-21 11:31 | NUR ---
Spiritual Care Visit. Pt. is sitting up in a recliner and welcomes my visit. Pt. is pleasant, but a little unsettled about the cause of recent changes in her blood sugar. Listen with empathy and a calming presence. Pt. displays evidence if engagement and awareness even though there are momentary interruptions in her thoughts. Re-established rapport. Pt. recalled and expressed interest in a trip this kitchen porter will be making to [facility] in April. Prayed with Pt. Pt. verbalized a request to let someone know she had not got a menu for lunch. Pt. verbalized gratitude for the spiritual care visit. This kitchen porter communicated the pts. need for a menu to her nurse.
--- NOTE | 2022-03-21 15:12 | NUR ---
PT TRANSFERED TO MEDICAL FLOOR ROOM 309. PT IS RESTING COMFORTABLY IN THE CHAIR. REPORT GIVEN TO KRISTI WHITE. TRANSPORTED VIA RECLINER. ALL MEDS TRANSFERED FROM LOCKED DRAW TRANSFERED WITH PT.
--- NOTE | 2022-03-21 16:04 | NUR ---
ARRIVAL: PT ARRIVED TO ROOM 309 FROM 349 AT 1525 VIA RECLINER. PT RESTING COMFORTABLY. BATH GIVEN. VITALS TAKEN. WILL CONTINUE TO MONITOR.
--- NOTE | 2022-03-22 01:11 | NUR ---
AT 2345, PT'S BG WAS 456 AND GIVEN SLIDING SCALE INSULLIN. NOTIFIED HOSPITALIST. NO NEW ORDERS GIVEN.
[2022-03-22 07:15] LABS: Hematocrit 31.5 % (33.0-51.0); Hemoglobin 10.3 g/dL (11.5-16.0)
[2022-03-22 07:30] LABS: Anion Gap 12 mmol/L (6-16); Blood Urea Nitrogen 82 mg/dL (8-24); Bun/Creatinine Ratio 15.7 (12.0-20.0); CO2, Blood 23 mmol/L (21-32); Calcium, Blood 8.9 mg/dL (8.5-10.1); Chloride, Blood 92 mmol/L (98-108); Creatinine, Blood 5.22 mg/dL (0.40-1.00); Glomerular Filtration Rate 10 (60-); Glucose, Blood 393 mg/dL (70-99); Magnesium, Blood 2.6 mg/dL (1.6-2.4); Phosphorus, Blood 7.8 mg/dL (2.5-4.9); Potassium, Blood 5.6 mmol/L (3.5-5.5); Sodium, Blood 127 mmol/L (136-145)
--- NOTE | 2022-03-22 09:00 | NUR ---
PT COOPERATIE.A/O X3, SOME DEMANDING. PERMACATH RUCW. CDI. STATES PAIN, BUT WILL NOT TAKE PRIOR TO DIALYSIS, STATES WILL JUST CLEAR OFF DURING DIALYSIS. H/R REG, NO MURMUR NOTED. NO TELE. LUNGS CLEAR, RESP EASY, UNLABORED ON R.A. 1L AT NITE. BT X4 LAST BM 03/21. VOIDS INCONT. PT STATES CDI AT THIS TIME. SITTING IN CHAIR. EXPECT DIALYSIS TODAY. BED IN LOW POSITION, CALL LITE IN REACH, CALLS APPROP
--- NOTE | 2022-03-22 19:30 | NUR ---
PT PLEASANT TODAY. DID GO TO DIALYSIS. BLOOD SUGARS CAME DOWN TODAY. ONLY GAVE THE CARB COUNT INSULIN FOR DINNER TONITE. HAS BEEN IN CHAIR TODAY. NO NEW CONCERNS NOTED. DID NOT NOTICE ANY FAMILY VISIT TODAY. HAS BEEN WATCHING TV MUCH OF DAY. BED IN LOW POSITION, CALL LITE IN REACH, CALLS APPROP
[2022-03-23 05:08] LABS: Hematocrit 34.3 % (33.0-51.0); Hemoglobin 11.1 g/dL (11.5-16.0)
[2022-03-23 05:35] LABS: Magnesium, Blood 2.5 mg/dL (1.6-2.4)
[2022-03-23 05:40] LABS: Albumin, Blood 2.9 g/dL (3.4-5.0); Anion Gap 11 mmol/L (6-16); Blood Urea Nitrogen 70 mg/dL (8-24); Bun/Creatinine Ratio 15.5 (12.0-20.0); CO2, Blood 25 mmol/L (21-32); Calcium, Blood 9.3 mg/dL (8.5-10.1); Chloride, Blood 97 mmol/L (98-108); Creatinine, Blood 4.52 mg/dL (0.40-1.00); Glomerular Filtration Rate 12 (60-); Glucose, Blood 296 mg/dL (70-99); Phosphorus, Blood 6.9 mg/dL (2.5-4.9); Potassium, Blood 5.3 mmol/L (3.5-5.5); Sodium, Blood 133 mmol/L (136-145)
--- NOTE | 2022-03-23 07:38 | NUR ---
SHIFT SUMMARY A&O X3, FORGETFUL AT TIMES. VSS. PAIN MANAGEMENT WITH PRN NORCO TOLERATING WELL. CALLS APPROPRIATELY. WILL CONTINUE TO MONITOR BP AND BLOOD SUGAR PER MD ORDER.
--- NOTE | 2022-03-23 18:40 | NUR ---
PT MOSTLY PLEASANT TODAY. SOME SIMPLE THINGS SEEMED TO CONFUSE HER TODAY. NO DIALYSIS TODAY. BP AND CBG SOME BETTER. NO NEW CONCERNS NOTED. BED IN LOW POSITION, CALL LITE IN REACH, CALLS APPROP
--- NOTE | 2022-03-24 03:14 | NUR ---
SHIFT SUMMARY NO OVERNIGHT EVEVNTS. BG 180 AT 2000, ADMINISTERED SCHEDULED LANTUS, NO CORRECTIONAL INSULIN NEEDED PER ORDER. PT DRANK 180ML OF BUBBLY WATER. 2300 BG INCREASED TO 253. PT DENIES ANY SNACKS OR MORE FLUIDS. ORDER FOR NO SNACKS AFTER MIDNIGHT. 1L FLUID RESTRICTION IN PLACE. PT RECIEVING NORCO FOR PAIN. DENIES ANY OTHER S/S OF DISTRESS. CALL LIGHT IN REACH, ABLE TO MAKE NEEDS KNOWN.
[2022-03-24 14:33] LABS: Hemoglobin 11.1 g/dL (11.5-16.0)
[2022-03-24 14:48] LABS: Albumin, Blood 3.1 g/dL (3.4-5.0); Anion Gap 7 mmol/L (6-16); Blood Urea Nitrogen 48 mg/dL (8-24); Bun/Creatinine Ratio 14.4 (12.0-20.0); CO2, Blood 29 mmol/L (21-32); Calcium, Blood 9.3 mg/dL (8.5-10.1); Chloride, Blood 95 mmol/L (98-108); Creatinine, Blood 3.33 mg/dL (0.40-1.00); Glomerular Filtration Rate 17 (60-); Glucose, Blood 224 mg/dL (70-99); Magnesium, Blood 2.3 mg/dL (1.6-2.4); Phosphorus, Blood 4.6 mg/dL (2.5-4.9); Potassium, Blood 3.5 mmol/L (3.5-5.5); Sodium, Blood 131 mmol/L (136-145)
--- NOTE | 2022-03-24 16:27 | NUR ---
PT IS A/OX3, PLEASANT AND COOPERATIVE. THE PT HAD DIALYSIS. PT WAS MEDICATED FOR PAIN PER HER RQUEST AFTER DIALYSIS. PT WAS GIVEN HER SCHEDULED BP MEDS AFTER DIALYSIS. THE PT TODAY WAS IN SHOWERING WITH THE [employer] FIELD COORDINATOR AND SLIPPED OFF OF HER SHOWER CHAIR TO THE FLOOR. VS TAKEN. THE PT DENIED ANY INJURY. THE CHAIR WAS ONLY 12 INCHES FROM THE FLOOR. DR. LEMUS WAS CALL AND NOTIFIED OF THE FALL. PT APPEARS TO BE COMFORTABLE IN THE CHAIR AT THIS TIME. CALL LIGHT IN REACH. WILL CONTINUE TO MONITOR AND ASSESS FOR CHANGES
--- NOTE | 2022-03-25 03:49 | NUR ---
SHIFT SUMMARY NO OVERNIGHT EVENTS. PT BLOOD SUGAR BETTER CONTROLED, ALLOWED SNACKS PRIOR TO THE 2300 BG CHECK. NPO AT MIDNIGHT. PT ON 1L FLUID RESTRICTION, 300ML FOR NOC SHIFT. PT UP IN HARD CHAIR UNTIL AROUND 2300 THEN INTO RECLINER TO SLEEP. PT ABLE TO AMBULATE UP "STAIRS" TO RECLINCER WITH X2 PERSON ASSIST. BM 03/24, INCONTINENT. PT REPORTING PAIN TO R FOOT, APPLIED ICE PACK AND ADMINISTERED PRN PAIN MEDICATION. CALL LIGHT IN REACH, ABLE TO MAKE NEEDS KNOWN.
[2022-03-25 08:31] LABS: Hematocrit 33.5 % (33.0-51.0); Hemoglobin 10.8 g/dL (11.5-16.0)
[2022-03-25 11:28] LABS: Magnesium, Blood 2.6 mg/dL (1.6-2.4)
[2022-03-25 11:32] LABS: Anion Gap 7 mmol/L (6-16); Blood Urea Nitrogen 78 mg/dL (8-24); Bun/Creatinine Ratio 16.5 (12.0-20.0); CO2, Blood 27 mmol/L (21-32); Calcium, Blood 9.2 mg/dL (8.5-10.1); Chloride, Blood 94 mmol/L (98-108); Creatinine, Blood 4.74 mg/dL (0.40-1.00); Glomerular Filtration Rate 11 (60-); Glucose, Blood 364 mg/dL (70-99); Phosphorus, Blood 7.6 mg/dL (2.5-4.9); Potassium, Blood 5.3 mmol/L (3.5-5.5); Sodium, Blood 128 mmol/L (136-145)
--- NOTE | 2022-03-25 14:05 | NUR ---
Spiritual Care Visit. Pt. is sitting up in a chair finishing lunch and welcomes my visit. Pt. is pleasant and displays evidence of clear thinking and focus. Re-establish rapport and listen to the Pt. with empathy and a calming presence. Encourage Pt. with words of affirmation. Pt. is a little unsettled about a "red grace" on her foot. [place] with Pt. Pt. verbalizes gratitude for the spiritual care visit.
--- NOTE | 2022-03-25 17:46 | NUR ---
PT IS A/OX3, PLEASANT AND COOPERATIVE. PT GETS UPSET EASILY AT TIMES OVER HIS SITUATION. THE PT APPEARS TO BE BREATHING EASILY ON RA AT THIS TIME. PT WAS MEDICATED FOR PAIN T/O THE DAY. WOUND CLINIC RN CLEANED AND CHANGED THE PTS BLE DRESSINGS TODAY. PT WAS INCONTINENT AT TIMES TODAY. CALL LIGHT IN REACH. WILL CONTINUE TO MONITOR AND ASSESS FOR CHANGES
--- NOTE | 2022-03-26 04:07 | NUR ---
SHIFT SUMMARY NO OVERNIGHT EVENTS. BG 74 AT NOC, RECIEVED SNACKS, WENT UP TO 130 AND 189 AT 2330. NO SNACKS AFTER 0000. PT SLEPT WELL. ON 1LO2 OVERNIGHT, DIDNT WANT CPAP. REPORTS PAIN TO RLE, ADMINISTERED PRN NORCO. PT ABLE MAKE NEEDS KNOWN, CALL MALVIN JUNIOR.
--- NOTE | 2022-03-26 07:30 | NUR ---
DIALYSIS NOTE DETECTIVE LIEUTENANT IN TO DRAW LABS FROM HD CATH AT REQUEST OF BEDSIDE RN AND LAB AND WITH APPROVAL FROM .
[2022-03-26 09:09] LABS: Hematocrit 32.9 % (33.0-51.0); Hemoglobin 10.4 g/dL (11.5-16.0)
[2022-03-26 09:37] LABS: Albumin, Blood 2.8 g/dL (3.4-5.0); Anion Gap 15 mmol/L (6-16); Blood Urea Nitrogen 105 mg/dL (8-24); Bun/Creatinine Ratio 18.4 (12.0-20.0); CO2, Blood 23 mmol/L (21-32); Chloride, Blood 92 mmol/L (98-108); Glomerular Filtration Rate 9 (60-); Glucose, Blood 486 mg/dL (70-99); Phosphorus, Blood 8.5 mg/dL (2.5-4.9); Potassium, Blood 6.6 mmol/L (3.5-5.5); Sodium, Blood 130 mmol/L (136-145)
--- NOTE | 2022-03-26 16:01 | NUR ---
PT IS A/OX3, PLEASANT AND COOPERATIVE. PT APPEARS TO BE BREATHING EASILY ON RA AT THIS TIME. PT AT TIMES REQUIRS O2 . PT WAS SHOWERED THIS AM AND TOLERATED IT WELL. THE PT AMBULATED APROX 30 FT FROM THE BATHROOM ABCK TO HER CHAIR AT BEDSIDE OT WAS THERE TO HELP. PT WAS MEDICATED FOR PAIN X1 SO FAR THIS SHIFT. THE PT IS CURRENTLY RECIEVING DIALYSIS. CALL LIGHT IN REACH. WILL CONTINUE TO MONITOR AND ASSESS FOR CHANGES.
[2022-03-27 01:52] LABS: Calcium, Blood 9.5 mg/dL (8.5-10.1); Creatinine, Blood 4.54 mg/dL (0.40-1.00); Potassium, Blood 4.9 mmol/L (3.5-5.5)
--- NOTE | 2022-03-27 02:51 | NUR ---
PT TRANSFERRED TO ICU AFTER LAB BLOOD GLUCOSE OF 547. PT IS CURRENTLY ASYMPTOMATIC. PT HAS ALL BELONGINGS AND RX WITH THEM. PT TRANSFERRED TO ICU AT 0230 AND PASSED ON TO ICU STAFF.
[2022-03-27 03:05] LABS: Glucose (ISTAT POC) 617 mg/dL (70-99)
[2022-03-27 03:09] LABS: Hematocrit 36.6 % (33.0-51.0); Hemoglobin 11.7 g/dL (11.5-16.0)
--- NOTE | 2022-03-27 03:21 | NUR ---
THIS AUTHOR ASSUMED PT CARES AT 0230 S/P TX TO ICU. VSS. ESTABLISHING IV FOR INSULIN GTT. PT ORIENTED AND ANSWERING QUESTIONS APPROPRIATELY. VSS.
[2022-03-27 03:28] LABS: Magnesium, Blood 2.4 mg/dL (1.6-2.4)
[2022-03-27 03:53] LABS: Albumin, Blood 3.3 g/dL (3.4-5.0); Anion Gap 17 mmol/L (6-16); Blood Urea Nitrogen 73 mg/dL (8-24); Bun/Creatinine Ratio 15.9 (12.0-20.0); CO2, Blood 21 mmol/L (21-32); Calcium, Blood 9.2 mg/dL (8.5-10.1); Chloride, Blood 86 mmol/L (98-108); Creatinine, Blood 4.58 mg/dL (0.40-1.00); Glomerular Filtration Rate 11 (60-); Glucose, Blood 664 mg/dL (70-99); Phosphorus, Blood 7.3 mg/dL (2.5-4.9); Potassium, Blood 5.3 mmol/L (3.5-5.5); Sodium, Blood 124 mmol/L (136-145)
[2022-03-27 04:30] LABS: Glucose (ISTAT POC) 601 mg/dL (70-99)
[2022-03-27 04:58] LABS: Glucose, Blood 614 mg/dL (70-99)
[2022-03-27 05:10] LABS: Glucose (ISTAT POC) 552 mg/dL (70-99)
--- NOTE | 2022-03-27 06:10 | NUR ---
DIALYSIS NOTE EXPERIENCE DESIGNER IN TO DRAW LABS FROM HD CATH AT REQUEST OF BEDSIDE RN AND LAB AND WITH APPROVAL FROM .
[2022-03-27 06:34] LABS: Bun/Creatinine Ratio 16.4 (12.0-20.0); Creatinine, Blood 4.76 mg/dL (0.40-1.00); Potassium, Blood 5.1 mmol/L (3.5-5.5)
--- NOTE | 2022-03-27 07:32 | NUR ---
Assumed care at approximately 0700. Pt sleeping in room at time of report. Insulin infusing at 3.55 units/hr. VS stable, no acute needs. Continue to monitor.
[2022-03-27 08:52] LABS: Bun/Creatinine Ratio 15.9 (12.0-20.0); Calcium, Blood 9.1 mg/dL (8.5-10.1); Creatinine, Blood 4.91 mg/dL (0.40-1.00)
[2022-03-27 13:39] LABS: Bun/Creatinine Ratio 15.6 (12.0-20.0); Calcium, Blood 9.2 mg/dL (8.5-10.1); Creatinine, Blood 5.18 mg/dL (0.40-1.00); Potassium, Blood 5.1 mmol/L (3.5-5.5)
--- NOTE | 2022-03-27 15:33 | NUR ---
Patient transferred to room 309 at 1530. Report given to med floor RN. All patient belongings transferred with patient. VS stable at time of transfer.
--- NOTE | 2022-03-27 16:25 | NUR ---
Spiritual Care Visit. Pt. had just been moved into 309 from ICU16. Pt. welcomes my visit and is pleasant. Pt. verbalizes about the care the has been given as well as her prognosis. This consumer relations complaint clerk was called into another room. Pt. diusplayes evidence of understaning. Pt. verbalized gratitude for the spiritual care visit.
--- NOTE | 2022-03-27 19:14 | NUR ---
PT RESTING NO S/S OF ACUTE DISTRESS, SAFETY MEASURES IN PLACE. REPORT GIVEN TO ON COMING NURSE.
--- NOTE | 2022-03-28 03:00 | NUR ---
PT AWOKE, REPORTING SHE WASN'T FEELING WELL. SHE REPORTS IT FEELS LIKE HER "BLOOD SUGAR IS HIGH." WILL GET A CBG.
--- NOTE | 2022-03-28 03:10 | NUR ---
CBG WAS OVER 500 - LAB CURRENTLY IN ROOM. SPOKE TO DR. SHERMAN, UPDATED HER ON CBG OVR 500, ORDER RECEIVED FOR STAT BMP - AND SHE REQUESTED A RETURN CALL ONCE THE RESULTS ARE IN. PT PROVIDED WITH A FAN, COOL WASHCLOTHS.
--- NOTE | 2022-03-28 03:20 | NUR ---
PT WITH EMESIS - SEE EMAR FOR FOLLOW UP.
[2022-03-28 03:39] LABS: Bun/Creatinine Ratio 17.6 (12.0-20.0); Calcium, Blood 9.6 mg/dL (8.5-10.1); Creatinine, Blood 6.07 mg/dL (0.40-1.00); Potassium, Blood 5.9 mmol/L (3.5-5.5)
--- NOTE | 2022-03-28 04:05 | NUR ---
REPORT GIVEN TO KRISTI MILLER ICU. REPORTED THAT DR. SHERMAN IS CONTACTING THE PHARMACY FOR A INSULIN DRIP ORDERS.
--- NOTE | 2022-03-28 04:20 | NUR ---
PT TRANSFERRED TO ICU, TO THE CARE OF KRISTI MILLER.
--- NOTE | 2022-03-28 05:34 | NUR ---
PT ARRIVED AT 0422 FROM MEDICAL FLOOR DUE TO HYPERGLYCEMIA. PT AWAKING, MOANING. STATES,"I DON'T FEEL GOOD". LUNGS CLEAR ON ROOMAIR. RESP EVEN AND NONLABORED. HEART RATE REGULAR. BP ELEVATED WITH CONT TO MONITOR. PT INCONT OF STOOL. ATTENDS CHANGED. WOUND NOTED TO RIGHT HEEL AND ALY AREA. IV TO RIGHT WRIST. NS AT 10 ML/HR AND INSULIN AT 3 UNITS STARTED. PT RESTING QUIETLY. REPORT TO ON COMING NURSE
--- NOTE | 2022-03-28 06:12 | NUR ---
BLOOD GLUCOSE 601 VIA ISTAT. CONT INSULIN GTT AT 3UNITS/HR
[2022-03-28 07:44] LABS: Glucose, Blood 549 mg/dL (70-99)
--- NOTE | 2022-03-28 08:00 | NUR ---
ASSUMED CARE OF PT THIS AM PT SNORING LOUDLY, AWAKENS TO VERBAL STIMULI BRIEFLY BY MOANING THEN RETURNS TO SLEEP. SWEATING NOTED. PT. BG CHECKED, REMAINS ON INSULIN GTT AT THIS TIME CURRENTLY INFUSING AT 3U/HR. DR. CASTANEDA IN TO SEE PT, PLANS FOR DIALYSIS THIS AM. VSS AT THIS TIME. PLACED ON 4LNC WHILE SLEEPING DUE TO DESATURATION HOWEVER ON RA WHEN AWAKE. CALL LIGHT IN REACH.
[2022-03-28 08:28] LABS: Hematocrit 29.6 % (33.0-51.0); Hemoglobin 9.5 g/dL (11.5-16.0)
[2022-03-28 08:50] LABS: Magnesium, Blood 2.7 mg/dL (1.6-2.4)
[2022-03-28 08:54] LABS: Albumin, Blood 2.9 g/dL (3.4-5.0); Anion Gap 24 mmol/L (6-16); Blood Urea Nitrogen 109 mg/dL (8-24); Bun/Creatinine Ratio 17.6 (12.0-20.0); CO2, Blood 15 mmol/L (21-32); Calcium, Blood 8.8 mg/dL (8.5-10.1); Chloride, Blood 87 mmol/L (98-108); Creatinine, Blood 6.21 mg/dL (0.40-1.00); Glomerular Filtration Rate 8 (60-); Glucose, Blood 450 mg/dL (70-99); Potassium, Blood 5.6 mmol/L (3.5-5.5); Sodium, Blood 126 mmol/L (136-145)
[2022-03-28 09:19] LABS: Phosphorus, Blood 9.2 mg/dL (2.5-4.9)
--- NOTE | 2022-03-28 09:23 | NUR ---
UDPATE PT. REMAINS DIFFICULT TO KEEP AWAKE. SHE WILL AWAKEN BRIEFLY TO STIMULI THEN GO BACK TO SLEEP. BG CHECKED CURRENTLY 354, INSULIN GTT TITRATED DOWN TO 2U/HR. UNABLE TO GIVE PO MEDS AT THIS TIME. VSS REMAIN STABLE.
--- NOTE | 2022-03-28 11:15 | NUR ---
PT CONTINUES TO BE DIFFICULT TO AWAKEN. REMAINS ON INSULIN GTT LAST CHECK WITH BG OF 268, CURRENTLY TITRATED DOWN TO 1U/HR. PT. AWAKENS BRIEFLY TO STIMULI THEN RETURNS TO SLEEP, SWEATING. AWAITING DIALYSIS TX. VSS. PT TOO OBTUNDED TO TAKE MEDICATIONS AT THIS TIME.
--- NOTE | 2022-03-28 11:54 | NUR ---
DIALYSIS PT ON LATE DUE TO PROBLEMS WITH DIALYSIS MACHINES,
[2022-03-28 12:12] LABS: Bun/Creatinine Ratio 17.1 (12.0-20.0); Calcium, Blood 9.1 mg/dL (8.5-10.1); Creatinine, Blood 4.73 mg/dL (0.40-1.00); Potassium, Blood 4.5 mmol/L (3.5-5.5)
--- NOTE | 2022-03-28 12:18 | NUR ---
PT CURRENTLY ON DIALYSIS TX. PT. INSULIN GTT PLACED ON STAND BY AT THIS TIME FOR BG 190. PT REMAINS NPO DUE TO BEING TOO OBTUNDED. TALKED WITH DR. TELLO AND UPDATED ON CONDITION.
--- NOTE | 2022-03-28 13:35 | NUR ---
DIALYSIS CONTINUES, PT BG CHECKED AND IS BEGINNING TO GO BACK UP. RESTARTED ON INSULIN GTT AT 1U/HR. DR. TELLO IN TO SEE PT. PT. NOW MORE ALERT, ABLE TO TAKE HER PO MEDICATIONS FROM THIS AM.
--- NOTE | 2022-03-28 15:03 | NUR ---
DIALYSIS COMPLETED. PT. PROVIDED MEAL TRAY. ABLE TO FEED SELF WITH OUT DIFFICULTY. REAMINS ON INSULIN GTT AT 1U/HR
[2022-03-28 16:26] LABS: Bun/Creatinine Ratio 13.6 (12.0-20.0); Creatinine, Blood 3.31 mg/dL (0.40-1.00); Potassium, Blood 3.4 mmol/L (3.5-5.5)
--- NOTE | 2022-03-28 16:30 | NUR ---
INSLUIN GTT PLACED ON STAND BY AT THIS TIME COVERED VIA SLIDING SCALE INSULIN. PER DR. STYLES
--- NOTE | 2022-03-28 18:13 | NUR ---
SHIFT SUMMARY PT VERY OBTUNDED UNTIL SHE HAD DIALYSIS TODAY THEN BEGAN TO WAKE UP. PT STILL REMAINS DROWSY BUT DOES AWAKEN EAGERLY TO FOOD. PT ATE EVERY BIT OF FOOD ON BOTH HER LUNCH TRAY AND HER DINNER TRAY, LICKING THE PLATE CLEAN. PT. THEN GOES BACK TO SLEEP. PT VSS AT THIS TIME. INSULIN GTT REMAINS ON STAND BY . CALL LIGTH IN REACH. ALL NEEDS MET AT THIS TIME. REPORT TO ONCOMING RN.
--- NOTE | 2022-03-28 20:24 | NUR ---
ASSUMED CARE AT 1900 PATIENT IS LETHARGIC AT TIMES AND WITHDRAWN BUT WHEN AWAKE BECOMES VERY ANXIOUS. 02 SATS 99% ON 3-4L NC. HR SR 80s, BP STABLE. INCONTINENT AT TIMES. PATIENT REPOSITIONED. CALL LIGHT IN REACH.
--- NOTE | 2022-03-29 05:48 | NUR ---
SHIFT SUMMARY PATIENT ALERT AND ORIENTED TO SELF AND PLACE. 02 SATS 98% ON 3L VIA NC. HR SR 70s, BP STABLE. LARGE SOFT BROWN BM THIS SHIFT. MEDICATED FOR PAIN PRN, REPOSITIONED AND SOFT HEEL PROTECTORS FOR PART OF THE SHIFT. MEDICATED FOR ANXIETY, PATIENT CONTINUED TO YELL OUT AND PULL AT LINE AND CORDS.
--- NOTE | 2022-03-29 09:22 | NUR ---
AM NOTE.... ASSUMED CARE OF PT AT 0700, THE PT IS A&Ox2 BUT ABLE TO FOLLOW COMMANDS, SHE IS DROWSY AND FALLS ASLEEP QUICKLY BUT IS VERY AXIOUS TO EAT BREAKFAST. SHE IS ON 2L NC WHILE SLEEPING AND RA WHILE AWAKE. L/S CLEAR T/O. SHE IS IN SR IN THE 70'S BP IS STABLE. PT IS INCONT OF URINE AND BOWEL,ATTENDS IN PLACE C/D/I. THE PT ATTEMPTED TO DO THE BREAKFAST CARB COUNT BUT THE NUMBERS WERE JUMBLED TO HER. CALL LIGHT IN REACH WILL CONTINUE TO MONITOR.
[2022-03-29 09:45] LABS: Hematocrit 29.9 % (33.0-51.0); Hemoglobin 9.5 g/dL (11.5-16.0)
[2022-03-29 09:58] LABS: Albumin, Blood 2.7 g/dL (3.4-5.0); Anion Gap 20 mmol/L (6-16); Blood Urea Nitrogen 65 mg/dL (8-24); Bun/Creatinine Ratio 13.8 (12.0-20.0); CO2, Blood 29 mmol/L (21-32); Calcium, Blood 8.8 mg/dL (8.5-10.1); Chloride, Blood 91 mmol/L (98-108); Creatinine, Blood 4.72 mg/dL (0.40-1.00); Glomerular Filtration Rate 11 (60-); Glucose, Blood 259 mg/dL (70-99); Magnesium, Blood 2.3 mg/dL (1.6-2.4); Phosphorus, Blood 7.6 mg/dL (2.5-4.9); Potassium, Blood 3.8 mmol/L (3.5-5.5); Sodium, Blood 140 mmol/L (136-145)
--- NOTE | 2022-03-29 13:26 | NUR ---
TRANSFER/UPDATE.... PT HAD DIALYSIS IN THE ROOM AND TOLERATED IT WELL. SHE WAS MADE MEDICAL W/TELE. DR. MANLEY AT THE BEDSIDE TO ASSESS THE PT, VERBAL ORDERS GIVEN FOR THE PT'S HS DOSE OF INSULIN. PER DR. MANLEY HE WANTS HER TO BE GIVEN THE AC DOSE OF INSULIN AT HS. THIS WAS PASSED ALONG TO THE MED FLOOR RN RECEIVING REPORT ON ALLAN. A NURSE NOTIFY WAS ALSO PLACED WITH THIS VERBAL ORDER. PER DR. MANLEY SHE IS STILL NOT ALLOWED SNACKS BETWEEN MEALS BUT IF SHE STILL FEELS HUNGRY AFTER EATING HER TRAY SHE MAY HAVE DOUBLE PORTIONS. THIS WAS ALSO PLACED IN A NURSE NOTIFY. REPORT WAS GIVEN TO REMIGIO BRERY, ALL OF THE PT'S BELONGING WERE PACKED AND SENT WITH THE PT. VSS AT THE TIME OF TRANSFER.
--- NOTE | 2022-03-29 19:25 | NUR ---
PT RESTING NO S/S OF ACUTE DISTRESS. SAFETY MEASURES IN PLACE REPORT GIVEN TO ON COMING NURSE.
--- NOTE | 2022-03-30 04:31 | NUR ---
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
[2022-03-30 07:59] LABS: Hematocrit 32.3 % (33.0-51.0); Hemoglobin 10.1 g/dL (11.5-16.0)
[2022-03-30 08:18] LABS: Albumin, Blood 2.8 g/dL (3.4-5.0); Anion Gap 11 mmol/L (6-16); Blood Urea Nitrogen 57 mg/dL (8-24); Bun/Creatinine Ratio 14.1 (12.0-20.0); CO2, Blood 29 mmol/L (21-32); Calcium, Blood 9.1 mg/dL (8.5-10.1); Chloride, Blood 98 mmol/L (98-108); Creatinine, Blood 4.04 mg/dL (0.40-1.00); Glomerular Filtration Rate 13 (60-); Glucose, Blood 238 mg/dL (70-99); Magnesium, Blood 2.2 mg/dL (1.6-2.4); Phosphorus, Blood 5.7 mg/dL (2.5-4.9); Potassium, Blood 4.3 mmol/L (3.5-5.5); Sodium, Blood 138 mmol/L (136-145)
--- NOTE | 2022-03-30 18:23 | NUR ---
SHIFT SUMMARY: PT A/O X 2, LIFT TO CHAIR TODAY PT REPORTED SHE DID NOT FEEL STRONG ENOUGH TO AMBULATE. PT WAS PLEASANT AND COOPERATIVE WITH CARE. BS ELEVATED THIS AM BUT CAME DOWN TO 125 THIS EVENING. INSULIN DELIVERED IN THIGHS. CARB COUNT COMPLETED PER ORDERS. PT GIVEN A FAN TODAY DUE TO COMPLAINTS OF ROOM FEELING WARM ALTHOUGH TEMPERATURE WAS SET LOW IT COULD GO. PT SET UP IN HER RECLINER REQUESTED AND ONCE SHE WAS IN HER RECLINER SHE HAD NO FURTHER COMPLAINTS OF DISCOMFORT. PT TITRATED OFF OF OXYGEN AND PLACED ON CONTINUOUS BIOX PER ORDER. PT SATS WOULD DROP TO 89% AT TIMES BUT THEN SATS WOULD GO BACK HIGH 94% WHEN OBSERVED. PT PAIN MANAGED WITH CURRENT PAIN REGIMEN. DRESSINGS TO HEELS CDI. EXCORIATION TO THIGHS NEARLY HEALED. MEPILEX AND CALMOSEPTINE APPLIED TO BOTH EXCORIATED SITES. NO OTHER SKIN CONCERNS OBSERVED AT THIS TIME. PT EATING WELL AND FOLLOWING FLUID RESTRICTION TODAY.
--- NOTE | 2022-03-31 04:52 | NUR ---
SHIFT SUMMARY 46 YR F ADMITTED FOR HYPERGLYCEMIA. FULL CODE. NO ACUTE CHANGES THIS SHIFT. CBS @ 2100 AND 2200 WAS 84 SO PT WAS GIVEN A CUP OF ORANGE JUICE AND EVENING INSULIN WAS HELD. THIS WAS DISCUSSED WITH CHARGE NURSE. 0041 CBS WAS 96. PT HAS STAYED IN HER RECLINER ALL NIGHT AND STATES SHE IS MUCH MORE COMFORTABLE THERE. SHE IS STILL UNHAPPY ABOUT THE FLUID RESTRICTION AND SHE TOLD THIS NURSE THAT DR. CASTANEDA TOLD HER SHE COULD HAVE MORE. TR SET UP HER BIPAP LAST NIGHT AND SHE TOLERATED IT WELL BUT TOOK IT OFF AT APPROX 0500. SHE HAS BEEN W/OUT 02 AND HER SATS ARE MAINTAINING IN THE MID 90'S.
--- NOTE | 2022-03-31 06:38 | NUR ---
PER DR. CASTANEDA THIS A.M. FLUID RESTRICTION WAS CHANGED FROM 1000 TO 1200. NURSE NOTIFY UPDATED TO REFLECT THE CHANGE.
[2022-03-31 07:34] LABS: Hematocrit 29.9 % (33.0-51.0); Hemoglobin 9.5 g/dL (11.5-16.0)
[2022-03-31 07:56] LABS: Albumin, Blood 2.7 g/dL (3.4-5.0); Anion Gap 16 mmol/L (6-16); Blood Urea Nitrogen 80 mg/dL (8-24); Bun/Creatinine Ratio 16.3 (12.0-20.0); CO2, Blood 21 mmol/L (21-32); Calcium, Blood 9.1 mg/dL (8.5-10.1); Chloride, Blood 95 mmol/L (98-108); Glomerular Filtration Rate 10 (60-); Glucose, Blood 412 mg/dL (70-99); Magnesium, Blood 2.3 mg/dL (1.6-2.4); Phosphorus, Blood 7.8 mg/dL (2.5-4.9); Potassium, Blood 5.9 mmol/L (3.5-5.5); Sodium, Blood 132 mmol/L (136-145)
--- NOTE | 2022-03-31 16:10 | NUR ---
SHIFT SUMMARY PT RESTING QUIETLY AT START OF SHIFT IN CHAIR AT BS. PT WOKE EASILY FOR CARE. PT C/O WANTING HEEL PROTECTORS OFF. PT ALSO COMPLAINING ABOUT F/R. PT'S CBG ELEVATED AT START OF SHIFT D/T NOC SHIFT RN GIVING SNACKS FOR LOW CBG. DR MANLEY IN TO SEE PT THIS AM. NEW ORDERS PLACED TO CK CBG Q2 HRS UNTIL CBG LESS THAN 350. PT EATING ALL OF EVERY MEAL; CARB COUNT DONE PER ORDERS EACH MEAL. PT REMAINED IN CHAIR AT BS TO PRESENT, PER PT REQUEST. PT RECEIVING DIALYSIS AT THIS TIME. RESTING QUIETLY IN CHAIR. NO S/SX OF DISTRESS NOTED OR REPORTED. CALL LT IN REACH.
--- NOTE | 2022-04-01 05:44 | NUR ---
SHIFT SUMMARY PT A&O X 3-4- PT FORGETFUL- PT CBG INCREASED AT 1999- CALL TO DR. VELARDE RE: INSULIN AND REPEAT CBGS- SEE ORDERS PT FLUID RESTRICTION INCREASED TO 1200ML/24H- PT WITHIN LIMITS - PT REQUESTED SNACKS MULTIPLE TIMES - REMINDED PT THAT THERE IS AN ORDER FOR NO SNACKS- REMINDED PT TO ORDER LARGER PORTIONS OF MEALS IF IS STILL HUNGRY AFTER MEALS CPAP IN PLACE- PT AGREED TO WEAR- PT REQUESTED FOR CPAP TO BE REMOVED MULTIPLE TIMES IN NIGHT- ENCOURAGED PT TO WEAR FOR LONGER- PT AGREED- PT REFUSED TO GET IN THE BED- PT SLEEPS IN RELCINER CHAIR- CALL LIGHT WITHIN REACH
--- NOTE | 2022-04-01 07:31 | NUR ---
DIALYSIS NOTE SERVOMECHANISM ASSEMBLER IN TO DRAW LABS FROM HD CATH AT REQUEST OF BEDSIDE RN AND LAB AND WITH APPROVAL FROM .
[2022-04-01 07:36] LABS: Albumin, Blood 2.6 g/dL (3.4-5.0); Anion Gap 11 mmol/L (6-16); Blood Urea Nitrogen 53 mg/dL (8-24); Bun/Creatinine Ratio 15.2 (12.0-20.0); CO2, Blood 28 mmol/L (21-32); Calcium, Blood 9.1 mg/dL (8.5-10.1); Chloride, Blood 96 mmol/L (98-108); Creatinine, Blood 3.48 mg/dL (0.40-1.00); Glomerular Filtration Rate 16 (60-); Glucose, Blood 193 mg/dL (70-99); Phosphorus, Blood 6.6 mg/dL (2.5-4.9); Potassium, Blood 4.3 mmol/L (3.5-5.5); Sodium, Blood 135 mmol/L (136-145)
--- NOTE | 2022-04-01 11:20 | NUR ---
WOUND CARE R CALCANEUS WOUND HAS REOPENED. WOULD BENEFIT FROM X-RAY, DEBRIDEMENT. L CALCANEUS WITH SIGNIFICANT SUSPECTED DEEP TISSUE INJURY. SPOKE WITH DR. GASTON WHO REPORTS SHE WILL ORDER X-RAY, PODIATRY CONSULT, AND NWB STATUS FOR PT. R HEEL CLEANSED WITH NS, HYDROFERA BLUE TO WOUND BED, COVERED WITH EXU-DRY ROLLED GAUZE, L HEEL PAINTED WITH BETADINE, ALLOWED TO AIR DRY, COVERED WITH EXU-DRY ROLLED GAUZE. PINK FOAM HEEL PROTECTORS ARE CAUSING PT DISCOMFORT AND INCREASED PAIN. INSTRUCTED TO FLOAT HEELS AT ALL TIME. PHOTO AND ASSESSMENT IN HARD CHART. WILL UPDATE [employer] ORDERS
--- NOTE | 2022-04-01 18:11 | NUR ---
PT AAOX3-4 THIS SHIFT-SLOW TO RESPOND. PT COMPLIANT WITH FLUID RESTRICTION AND DIET THIS SHIFT. BG BETTER CONTROLLED THIS SHIFT. PT REFUSES TO GET OOB. PT TURNED Q 2 HRS IN HER CHAIR BUT COMPLAINS ABOUT THIS. PT GIVEN A BATH IN HER CHAIR THIS SHIFT. CONSULT PLACED FOR HEAD OF MATHEMATICS DUE TO STAGE 4 ULCER ON RIGHT HEEL SUSPECTION FOR OSTEOMYELITIS.
--- NOTE | 2022-04-01 18:47 | NUR ---
PT REFUSED 1800 TURN.
--- NOTE | 2022-04-02 03:57 | NUR ---
SHIFT SUMMARY ADMITTED FOR ACUTE HYPOXEMIC RESPIRATORY FAILURE. FULL CODE. 1200 ML FLUID RESTRICTION. Q4 CBG'S. RX WHOLE W/APPLESAUCE. CPAP @ . [facility] DIET. DR AMOS IS PODIATRY CONSULT. ULCERS ON SACCRUM, AND BLE HEELS. RT UPPER CHEST DIALYSIS PORT. LAST DIALYSIS ON 03/31/22. SHE IS NON-WT. BEARING. SHE IS ON ELLIQUIS.
--- NOTE | 2022-04-02 04:04 | NUR ---
CALLED CHARGE INFORMED HIM THAT GLUCOSE IS 350. IT IS DECIDED THAT WE WILL RETEST GLUCOSE AGAIN IN TWO HOURS ORDERED.
--- NOTE | 2022-04-02 06:25 | NUR ---
CALLED HOSPITALIST INFORMED HIM OF GLUCOSE LEVEL OF 394. INFORMED HIM OF HUMALOG DOSE DUE AT 0730 HOURS. ORDERS ARE CONTINUE TO MONITOR
--- NOTE | 2022-04-02 13:04 | NUR ---
PT ATE 100% OF LUNCH. 77 GRAMS OF CARBS = 7 UNITS OF INSULIN.
--- NOTE | 2022-04-02 13:47 | NUR ---
TELEPHONE ORDER VERBAL FROM MD BISHOP TO GIVE 1 [place] NOW. WILL DISCUSS PT'S PAIN MEDS AND ADDRESS TOMORROW.
--- NOTE | 2022-04-02 18:47 | NUR ---
SHIFT SUMMARY- PT UPSET CRYING THIS SHIFT REGARDING PAIN MED CHANGES. RN INFORMED MD BISHOP. DARIO TO ADDRESS TOMORROW. PT CALLING APPROPRIATELY THIS SHIFT. REFUSED MULTIPLE TURNS THIS SHIFT. BLOOD SUGARS BETTER CONTROLLED THIS SHIFT.
--- NOTE | 2022-04-03 03:14 | NUR ---
Patient resting in chair with cpap.
--- NOTE | 2022-04-03 07:00 | NUR ---
DIALYSIS NOTE RANCH HAND SUPERVISOR IN TO DRAW LABS FROM HD CATH AT REQUEST OF BEDSIDE RN AND LAB AND WITH APPROVAL FROM .
[2022-04-03 07:02] LABS: Hematocrit 31.5 % (33.0-51.0); Hemoglobin 10.1 g/dL (11.5-16.0)
[2022-04-03 07:24] LABS: Albumin, Blood 2.6 g/dL (3.4-5.0); Anion Gap 10 mmol/L (6-16); Blood Urea Nitrogen 60 mg/dL (8-24); CO2, Blood 27 mmol/L (21-32); Calcium, Blood 9.1 mg/dL (8.5-10.1); Chloride, Blood 94 mmol/L (98-108); Creatinine, Blood 3.52 mg/dL (0.40-1.00); Glomerular Filtration Rate 16 (60-); Glucose, Blood 120 mg/dL (70-99); Magnesium, Blood 2.2 mg/dL (1.6-2.4); Potassium, Blood 4.6 mmol/L (3.5-5.5); Sodium, Blood 131 mmol/L (136-145)
[2022-04-03 17:19] LABS: Bun/Creatinine Ratio 19.6 (12.0-20.0); Calcium, Blood 8.7 mg/dL (8.5-10.1); Creatinine, Blood 3.72 mg/dL (0.40-1.00); Potassium, Blood 6.3 mmol/L (3.5-5.5)
--- NOTE | 2022-04-03 19:01 | NUR ---
SHIFT SUMMARY: PT ALERT AND ORIENTED X3-4. PT RECEIVED NEWS THIS MORNING THAT HER PAIN MEDICATION WOULD BE CHANGED TO 7.5MG NORCO Q6. PT WAS VERY UNHAPPY WITH THIS AND HAS C/O PAIN SEVERAL TIMES THIS SHIFT. PT STARTED THE DAY WITH A BLOOD SUGAR OF 120. BEFORE LUNCH THE BLOOD SUGAR WAS 304. THE NIGHTTIME BLOOD SUGAR WAS >500. CALL DR. MANLEY WHO WROTE AN ORDER FOR A BLOOD DRAW FOR AN ACCURATE BLOOD SUGAR WHICH SHOWED A SUGAR OF 782 AND A POTASSIUM OF 6.3. PUT IN ORDERS FOR TELE, CALCIUM GLUCONATE, 500CC BOLUS OF LR, AND 12U OR REGULAR INSULIN IV. PT WILL BE NPO UNTIL BLOOD SUGAR IS UNDER 300. PT WILL BE TRANSFERRED TO PCU 13 ONCE CALCIUM GLUCONATE IS THROUGH RUNNING. CALL LIGHT IN REACH.
[2022-04-03 21:51] LABS: Bun/Creatinine Ratio 21.6 (12.0-20.0); Calcium, Blood 9.4 mg/dL (8.5-10.1); Creatinine, Blood 3.8 mg/dL (0.40-1.00); Potassium, Blood 6.1 mmol/L (3.5-5.5)
[2022-04-03 23:24] LABS: Glucose, Blood 660 mg/dL (70-99)
--- NOTE | 2022-04-04 00:52 | NUR ---
PATIENT TO ICU 8 FROM PCU AT 0015. PATIENT IS ALERT AND ORIENTED TO SELF AND PLACE. 02 SATS 99% ON RA. HR SB 50s. BP STABLE. BRIEF AND GOWN CHANGED. PATIENT COMPLAINS OF RIGHT FOOT PAIN. INSULING DRIP STARTED. CALL LIGHT IN REACH
[2022-04-04 03:54] LABS: BASOPHILS ABSOLUTE AUTO 0.05 K/mm3 (0.00-0.23); BASOPHILS PERCENT AUTO 1 % (0-2); EOSINOPHILS ABSOLUTE AUTO 0.13 K/mm3 (0.00-0.68); EOSINOPHILS PERCENT AUTO 2 % (0-6); Hematocrit 30.3 % (33.0-51.0); Hemoglobin 10.1 g/dL (11.5-16.0); IMMATURE GRAN ABSOLUTE AUTO 0.08 K/mm3 (0.00-0.10); IMMATURE GRAN PERCENT AUTO 1 % (0-1); LYMPHOCYTES ABSOLUTE AUTO 0.63 K/mm3 (0.84-5.20); LYMPHOCYTES PERCENT AUTO 9 % (21-46); MONOCYTES PERCENT AUTO 19 % (4-13); Mean Corpuscular HGB 31.3 pg (26.0-34.0); Mean Corpuscular HGB Conc 33.3 g/dL (31.5-36.5); Mean Corpuscular Volume 94 fL (80-100); Mean Platelet Volume 9.4 fL (9.1-12.4); NEUTROPHILS ABSOLUTE AUTO 4.74 K/mm3 (1.96-9.15); NEUTROPHILS PERCENT AUTO 68 % (41-73); Platelet Count 681 K/mm3 (150-400); RDW Coefficient Variation 13.4 % (11.7-14.2); RDW Standard Deviation 45.9 fL (35.1-46.3); Red Blood Cell Count 3.23 M/mm3 (3.80-5.20); White Blood Cell Count 6.93 K/mm3 (4.00-11.30)
[2022-04-04 04:13] LABS: Albumin, Blood 2.6 g/dL (3.4-5.0); Albumin/Globulin Ratio 0.6 (0.8-1.8); Bilirubin, Total 0.2 mg/dL (0.1-1.0); Bun/Creatinine Ratio 20.6 (12.0-20.0); Calcium, Blood 9.4 mg/dL (8.5-10.1); Creatinine, Blood 4.07 mg/dL (0.40-1.00); Potassium, Blood 5.2 mmol/L (3.5-5.5); Total Protein, Blood 6.6 g/dL (6.4-8.2)
--- NOTE | 2022-04-04 06:01 | NUR ---
SHIFT SUMMARY PATIENT REMAINS ALERT AND ORIENTED X2-3. 02 SATS 95% ON RA. HR SR 60s, BP STABLE. INCONTINENT AT TIMES, BRIEF IN PLACE. INSULIN DRIP OFF AT APPROX 0400, COVERING WITH Q2 HOUR INSULIN SC. MEDICATED FOR RIGHT LEG PAIN PER EMAR. REPOSTIONED Q2 HOURS
--- NOTE | 2022-04-04 14:48 | NUR ---
pt seen this morning review of her needs with parcel carrier and social media intern. will monitor for further decline.
--- NOTE | 2022-04-04 15:44 | NUR ---
PT IN [place] [phone] DEBRIDEMENT OF RIGHT HEEL, ORDERS TO RESUME MEDICAL AFFAIRS LEADER ORDERS IN 2 DAYS. RECOVERY REPORT RECEIVED FROM KRISTI CORBIN.
--- NOTE | 2022-04-04 17:39 | NUR ---
END OF SHIFT SUMMARY NEURO: ALERT AND ORIENTED X 2. NEEDS FREQUENT REMINDERS OF CONVERSATIONS, TEACHING, PLAN OF CARE. CARDIAC: SR, BP WNL, SCHEDULED ANTIHYPERTENSIVES ADMINISTERED ORDERED. RESP: ROOM AIR, O2 SAT > 92%, LUNGS CTA. GI: SHORT SELF LIMITING EPISODE OF NAUSEA THIS AM. BS NORMOACTIVE. PT NPO UNTIL AFTER OR, RETURNED AT 1600, SMALL SNACK PROVIDED AT THAT TIME. C/O BEING HUNGRY CONSTANTLY. BLOOD GLUCOSE CHECKED EVERY 2 HOURS AND COVERED ORDERED. : INCONTINENT X2, BRIEF CHANGED. NO DIALYSIS TODAY, PLANNED FOR AM. SKIN: BATHED, HAIR WASHED AND LINEN CHANGED. TURNED EVERY 2 HOURS. DRESSING TO LEFT BUTTOCK/THIGH CHANGED. TO OR TODAY FOR DEBRIDEMENT OF RIGHT HEEL WOUND. PAIN MEDICATION ADMINISTERED ORDERED. IV: PIV X1, FLUSHES WELL, SL. NO FAMILY AT BEDSIDE, POC REINFORCED SEVERAL TIMES.
--- NOTE | 2022-04-05 00:04 | NUR ---
ASSUMED CARE ASSUMED CARE AT 1900. PT A/O TO PERSON AND PLACE. NEEDS FREQUENT REORIENTING. ON RA, SPO2 GREATER THAN 90%. C/O R FOOT PAIN. MEDICATED PER EMAR. APPROX 2200 PT C/O 10/10 PAIN IN R FOOT. CALL TO RESIDENT AND ORDERS RECEIVED. HEELS FLOATED. SR 60'S. SBP 120-130'S. PT INCONT W/ BREIF ON. DAUGHTER CALLED FOR UPDATE AND PT GAVE VERBAL RELEASE TO TALK TO HER.
[2022-04-05 03:59] LABS: Hematocrit 30.6 % (33.0-51.0)
[2022-04-05 04:25] LABS: Magnesium, Blood 2.4 mg/dL (1.6-2.4)
[2022-04-05 04:30] LABS: Albumin, Blood 2.4 g/dL (3.4-5.0); Anion Gap 13 mmol/L (6-16); Blood Urea Nitrogen 100 mg/dL (8-24); Bun/Creatinine Ratio 19.6 (12.0-20.0); CO2, Blood 23 mmol/L (21-32); Calcium, Blood 8.7 mg/dL (8.5-10.1); Chloride, Blood 92 mmol/L (98-108); Creatinine, Blood 5.09 mg/dL (0.40-1.00); Glomerular Filtration Rate 10 (60-); Glucose, Blood 238 mg/dL (70-99); Phosphorus, Blood 8.1 mg/dL (2.5-4.9); Potassium, Blood 6.1 mmol/L (3.5-5.5); Sodium, Blood 128 mmol/L (136-145)
--- NOTE | 2022-04-05 05:38 | NUR ---
SHIFT SUMMARY NO ACUTE EVENTS T/O NIGHT. PT C/O OF PAIN IN R FOOT 12/23 THIS AM. THIS RN OUT OF ROOM TO LOOK AT EMAR AND WHEN BACK IN ROOM, PT WAS SLEEPING. PT ABLE TO WEAR CPAP APPROX 2 HOURS BEFORE TAKING IT OFF. VSS. SR/SB 58-60'S. SBP 130'S. HEALS FLOATED OFF BED AND PT TURNED Q2. CALL MADE TO RESIDENT REGARDING Q2 HUMALOG AND CBG. ORDERS RECEIVED TO CHANGE THEM TO Q4. IF CGB OVER 350, PT TO BE NPO AND CBG Q2. DR CASTANEDA CALLED THIS AM AND NOTIFIED OF K+ AND PHOS. PLAN FOR DIALYSIS TODAY. WILL REPORT OFF TO DAY SHIFT NURSE.
--- NOTE | 2022-04-05 07:15 | NUR ---
Assumed care of pt at 0700. Report received from Verenice Edward RN. Pt is resting comfortably in bed. Per report, pt struggled with pain control last night and was prescribed an extra dose of [place] per night hospitalist. Plan to give patient uinterrupted rest until she wakes up for breakfast. Respirations even and unlabored. SpO2 90% or greater RA. SR per monitor.
--- NOTE | 2022-04-05 10:34 | NUR ---
Dr Rizo in to see patient. Pt was reporting 9/10 pain to surgical site on foot. Dr Rizo prescribed 25 mcg fentanyl to help make pt comfortable while waiting for [place] to start working. Patient continued to cry, reporting pain. Refused to stand to transfer to recliner, due to pain. Offered to use ceiling lift to transfer patient to recliner, she also refused this, stating that shes in pain and "it's not working" in reference to the pain meds. Pt taken to dialysis room in her bed. Call placed to Dr Garcia to notify provider of patient's pain and how it's affecting patient's ADLs.
--- NOTE | 2022-04-05 14:04 | NUR ---
ASSUMED CARE OF PT AT 1345 PT APPEARS TO BE RESTING COMFORTABLY. HAD DIALYSIS THIS AM WITH 2.5 LITERS OFF. PT HAS BEEN C/O INCREASE RIGHT HEEL PAIN TODAY. INFORMED. RN TO CONTINUE TO MONITOR.
--- NOTE | 2022-04-05 18:21 | NUR ---
END OF SHIFT SUMMARY PT REMAINS A/O. SR WITH OCCASIONAL PVC'S, BP STABLE. ON ROOM AIR, SPO2 > 95%. EATING 100% OF MEALS, NO BM. FSBG MONITORED EVERY 4 HOURS WITH INSULIN COVERAGE ORDERED. INC X1, BRIEF UNDER PT PER PT REQUEST. MEPILEX TO RIGHT BUTTOCK, CREAM ON BOTTOM, POWDER TO FOLDS AFTER BATH, SMALL OPEN AREA TO UPPER RIGHT THIGH. PIV X1 FLUSHES WELL, SL. PT CONTINUES TO C/O PAIN IN RIGHT HEEL. PAIN PARTIALLY IMPROVED WITH NORCO AND REPOSITIONING.
--- NOTE | 2022-04-05 21:37 | NUR ---
ASSUMED CARE ASSUMED CARE AT 1900. A/O TO SELF AND PLACE. NEEDS FREQUENT REORIENTATION. PT DROWSY AND FALLING ASLEEP MID CONVERSATION. ON RA. VSS. SR RATE 70'S. SBP 130'S. DRSG IN PLACE TO R HEEL, C/D/I. HEELS FLOATED OFF BED. PT INCONT, BRIEF IN PLACE. CALL LIGHT IN REACH.
[2022-04-06 03:39] LABS: Hemoglobin 10.1 g/dL (11.5-16.0)
--- NOTE | 2022-04-06 03:55 | NUR ---
NEURO/HTN/PAIN PT VERY DROWSY, AND MORE CONFUSED THIS AM. SKIN DIAPHORETIC. CBG 148. AFEBRILE. SR 60'S. SBP 160'S. SPO2 GREATER THAN 94%. PT REFUSED TO WEAR CPAP D/T HER R SIDE OF HER NOSE BEING PAINFUL. R SIDE OF NOSE IS RED. PT REQUESTED PAIN MEDS. PT ASLEEP BEFORE THIS RN LEFT ROOM. PAIN MEDS NOT GIVEN AT THIS TIME.
[2022-04-06 04:00] LABS: Magnesium, Blood 2.3 mg/dL (1.6-2.4)
[2022-04-06 04:03] LABS: Albumin, Blood 2.4 g/dL (3.4-5.0); Anion Gap 9 mmol/L (6-16); Blood Urea Nitrogen 59 mg/dL (8-24); Bun/Creatinine Ratio 18.8 (12.0-20.0); CO2, Blood 27 mmol/L (21-32); Calcium, Blood 8.5 mg/dL (8.5-10.1); Chloride, Blood 99 mmol/L (98-108); Creatinine, Blood 3.13 mg/dL (0.40-1.00); Glomerular Filtration Rate 18 (60-); Glucose, Blood 158 mg/dL (70-99); Phosphorus, Blood 5.6 mg/dL (2.5-4.9); Sodium, Blood 135 mmol/L (136-145)
--- NOTE | 2022-04-06 05:41 | NUR ---
SHIFT SUMMARY PT APPEARS TO BE MORE ALERT THAN EARLIER. SEE PREVIOUS NOTE. VSS. SR 60'S. SBP 140'S AFTER PO HTN MEDICATIONS. DID NOT WEAR CPAP T/O NIGHT. CALL TO DR CASTANEDA REGARDING POTASSIUM LVL. PLAN FOR DIALYSIS TODAY. PT INCONT OF URINE. BREIF IN PLACE. DRSG TO R HEEL TO BE CHANGED TODAY. HEELS FLOATED T/O NIGHT AND PT TURNED Q2. CALL LIGHT IN REACH.
--- NOTE | 2022-04-06 08:15 | NUR ---
INITIAL ASSESSMENT PATIENT SLEEPING UPON ENTERING ROOM. PATIENT ALERT AND ORIENTED TO NAME, TOWN AND HOSPITAL. PATIENT STATES DATE IS 1927. PATIENT ASKING FOR PAIN MEDICATIONS FOR R FOOT WHEN AWAKE. PATIENT DROWSY AND CONTINUES TO FALL BACK ASLEEP AFTER ASKING FOR PAIN MEDS. PATIENT AFEBRILE. PATIENT SATTING 90% AND GREATER ON RA. PATIENT IN SR, HR IN THE 70S. SBP IN THE 140S. 1+ EDEMA NOTED TO EXTREMITIES. ABD SEVERELY DISTENDED, FIRM, WITH HYPERACTIVE BOWEL SOUNDS NOTED. DR. BISHOP INFORMED OF ABD THIS AM. DATE OF LAST BM 04/05. PATIENT HAS GOOD APPETITE. ATTENDS IN PLACE FOR INCONTINENCE. EXCORIATIONS NOTED TO ALY/ BUTTOCK FOLDS. BETADINE APPLIED TO WOUND ON L HEEL. WOUND CARE AND DRESSINGS PERFORMED TO R HEEL PER ORDERS. PILLOW ELEVATED HEELS OFF OF BED. IV FLUSHED AND SALINE LOCKED. PERMACATH TO R CHEST. BED LOW, CALL LIGHT IN REACH. WILL CONTINUE TO MONITOR PATIENT FREQUENTLY THROUGHOUT SHIFT.
--- NOTE | 2022-04-06 12:10 | NUR ---
PATIENT AFEBRILE. HR IN THE 60S. SBP IN THE 1-TEENS. PATIENT WATCHING TV AND EATING LUNCH. NO ACUTE CHANGES TO NOTE ON AT THIS TIME. WILL CONTINUE TO MONITOR.
--- NOTE | 2022-04-06 13:49 | NUR ---
PATIENT TAKEN TO DIALYSIS ROOM.
--- NOTE | 2022-04-06 19:06 | NUR ---
SHIFT SUMMARY PATIENT REMAINED ORIENTED TO SELF, TOWN AND HOSPITAL. PATIENT REMAINED AFEBRILE. PATIENT GIVEN NORCO X 2 AND FENTANYL X 2 THIS SHIFT FOR COMPLAINTS OF PAIN IN R HEEL, TOOTH AND NOSE. PATIENT CONTINUES TO COMPLAIN OF PAIN BUT IS ASLEEP MOST OF THE TIME AFTER ASKING. PATIENT REMAINED ON RA. PATIENT REMAINED IN SR, HR 60S TO LOW 100S. SBP 80S TO 160S. NO BM TODAY. PATIENT HAS LARGE APPETITE. NO VOID THIS SHIFT. WOUND CARE PERFORMED THIS SHIFT ON BILAT HEELS. COMPLETE BED BATH PERFORMED THIS SHIFT. PATIENT HAD DIALYSIS THIS SHIFT. BLOOD SUGARS 180, 112, 134. BED LOW, CALL LIGHT IN REACH. REPORT GIVEN TO ASSUMING NURSE.
--- NOTE | 2022-04-06 21:35 | NUR ---
ASSUMED CARE ASSUM ED CARE AT 1900. PT A/O X 2. PT IS ANXIOUS, CRYING, AND YELLING OUT. C/O PAIN IN R FOOT, NOSE, AND TOOTH. CALL TO HOSP REGARDING PAIN. ORDER RECEIVED. SEE EMAR. PT NOW RESTING QUIETLY. VSS. SR RATE 80'S. SBP 150'S. DRSG TO R HEEL C/D/I. L HEEL OPEN TO AIR. HEELS FLOATED. ABD FIRM AND DISTENDED. PT DENIES PAIN IN ABD. PT INCONT OF URINE. BRIEF IN PLACE. CALL LIGHT IN REACH.
--- NOTE | 2022-04-06 22:21 | NUR ---
TOOTH PAIN PT C/O TOOTH PAIN 12/23. CRYING, MOANING, AND YELLING "IT HURTS. HELP ME. OH MY GOD". PT MEDICATED WITH PRN NORCO. PT STATED "IT DOES NOT WORK. IT WON'T HELP ME. I NEED ORAJEL". CALL TO HOSP REGARDING PAIN. ORDER RECEIVED. PT CONTINUES TO YELL AFTER BEING TOLD WE ARE WAITING FOR PHARMACY TO SEND MEDICATION DOWN. COLD WASHCLOTH AND ICE OFFERED, PT REFUSED.
[2022-04-07 04:00] LABS: Hematocrit 33.6 % (33.0-51.0); Hemoglobin 10.7 g/dL (11.5-16.0)
[2022-04-07 04:31] LABS: Albumin, Blood 2.6 g/dL (3.4-5.0); Anion Gap 7 mmol/L (6-16); Blood Urea Nitrogen 39 mg/dL (8-24); Bun/Creatinine Ratio 17.5 (12.0-20.0); CO2, Blood 29 mmol/L (21-32); Calcium, Blood 9.3 mg/dL (8.5-10.1); Chloride, Blood 101 mmol/L (98-108); Creatinine, Blood 2.23 mg/dL (0.40-1.00); Glomerular Filtration Rate 27 (60-); Glucose, Blood 88 mg/dL (70-99); Magnesium, Blood 2.4 mg/dL (1.6-2.4); Phosphorus, Blood 4.5 mg/dL (2.5-4.9); Potassium, Blood 4.7 mmol/L (3.5-5.5); Sodium, Blood 137 mmol/L (136-145)
--- NOTE | 2022-04-07 05:58 | NUR ---
SHIFT SUMMARY NO ACUTE EVENTS T/O NIGHT. PT HAVING DIFFICULTY WITH PAIN CONTROL. SEE PREVIOUS NOTE. PT C/O TOOTH PAIN MOSTLY IN LEFT UPPER AND LEFT LOWER TEETH. BROKEN TOOTH VISUALIZED ON LEFT LOWER SIDE. PT ALSO C/O OF NOSE PAIN. RIGHT SIDE OF NOSE RED AND TENDER. MEDICATED PER EMAR. VSS. HTN AT TIMES. ON RA. PT HAD ONE VOID T/O NIGHT. WILL REPORT TO ONCOMING NURSE.
--- NOTE | 2022-04-07 08:00 | NUR ---
INITIAL ASSESSMENT PATIENT ORIENTED TO SELF, TOWN AND HOSPITAL. PATIENT TEARFUL AND COMPLAINING OF PAIN IN R FOOT THIS AM. PATIENT AFEBRILE. PATIENT WEAK BUT ABLE TO MOVE ALL EXTREMITIES. PATIENT SATTING 90% AND GREATER ON RA. PATIETN IN SR, HR 60S TO 80S. SBP 1-TEENS TO 140S. 1+ EDEMA NOTED IN EXTREMITIES. ABD SEVERELY DISTENDED, FIRM, WITH HYPERACTIVE BOWEL SOUNDS NOTED. PATIENT DENIES ABD TENDERNESS. LAST BM DOCUMENTED ON 04/05. PATIENT HAS LARGE APPETITE. ATTENDS TAKEN OFF TO AID HEALING OF ABRASIONS TO BUTTOCK/ ALY FOLDS. PATIENT INCONTINENT, BUT OLIGURIC BECAUSE IS DIALYSIS PATIENT. TAN AND DRY FLOW PLACED UNDER PATIENT. WOUNDS TO BILAT HEELS. AREAS CLEANSED. BETADINE TO L HEEL. DRESSING PLACED PER ORDERS TO R HEEL. IV FLUSHED AND SALINE LOCKED. BLOOD SUGAR 106 THIS AM; NO COVERAGE INDICATED. BED LOW, CALL LIGHT IN REACH. WILL CONTINUE TO MONITOR PATIENT FREQUENTLY THROUGHOUT SHIFT.
--- NOTE | 2022-04-07 08:34 | NUR ---
DR. BISHOP UPDATED ON PATIENT STATUS. INFORMED THAT PATIENT CONTINUES TO GET OT DOSES OF 25 MCG FENTANYL FOR COMPLAINTS OF PAIN IN R HEEL. INFORMED THAT PATIENT REPORTS SOME RELIEF WITH ORAJEL FOR BACK L BOTTOM TOOTH PAIN. INFORMED THAT FICTION AND NONFICTION PROSE WRITER RN STATED THAT PATIENT AWAKE COMPLAINING OF PAIN A LOT OF SHIFT AND WAS NOT FALLING ASLEEP RIGHT AFTER LIKE SHE WAS ON DAY SHIFT. STATED SHE WOULD SPEAK TO PATIENT ABOUT PAIN CONTROL. NO ORDERS RECEIVED AT THIS TIME.
--- NOTE | 2022-04-07 12:58 | NUR ---
PATIENT AFEBRILE. PATIENT ASKED FOR MORE PAIN MEDICATIONS FOR R HEEL AND FOR ORAJEL FOR TOOTH. NURSE WENT TO GIVE ORAJEL AND PATIENT BACK ASLEEP. HR IN THE 70S. SBP IN THE LOW 100S. BLOOD SUGAR 138. NO OTHER ACUTE CHANGES TO NOTE ON AT THIS TIME. WILL CONTINUE TO MONITOR.
--- NOTE | 2022-04-07 15:25 | NUR ---
WOUND CARE RLE DRESSING CHANGED PER ORDER. BONE IS PALPABLE. RINSED WITH NS, HYDROFERA BLUE TO WOUND BED ONLY. COVERED EXU-DRY, ABD, ROLLED GAUZE. LLE PAINTED WITH BETADINE AND LEFT HORTENSIA. BLE FLOATED ON TOWELS IN ATTEMT TO KEEP HEELS OFF RECLINER. WC RN WILL CHANGE DRESSINGS MON, WED, FRI
--- NOTE | 2022-04-07 16:40 | NUR ---
PATIENT AFEBRILE. HR 80S. SBP 170S. BLOOD SUGAR 101. NO OTHER ACUTE CHANGES TO NOTE ON AT THIS TIME. WILL CONTINUE TO MONITOR.
--- NOTE | 2022-04-07 17:00 | NUR ---
DR. JIMÉNEZ CALLED AND UPDATED ON PATIENT. INFORMED OF CONVERSATION WITH DR. BISHOP THIS AM. INFORMED THAT THIS AM AND EARLY AFTERNOON THAT THE PATIENT WAS COMPLAINING OF PAIN BUT MOSTLY FALLING ASLEEP AFTER NURSE LEFT ROOM. INFORMED THAT THE PATIENT IS NOW WAILING OUT IN PAIN AND IS NOT FALLING BACK ASLEEP. STATED HE WOULD SPEAK TO TEAM. NO ORDERS RECEIVED AT THIS TIME.
--- NOTE | 2022-04-07 17:11 | NUR ---
DR. GARCIA HERE TO SEE PATIENT ABOUT PAIN.
--- NOTE | 2022-04-07 19:25 | NUR ---
SHIFT SUMMARY PATIENT REMAINED ORIENTED ONLY TO SELF, TOWN AND HOSPITAL. PATIENT MANIPULATIVE THIS SHIFT IN TRYING TO GET PAIN MEDICATIONS, ICE AND WATER. PATIENT RECEIVED PRN NORCO FOR PAIN AND INCREASED TO 10/325 TO TRY AND HELP PAIN. 2 DOCTORS IN TO SPEAK WITH PATIENT TODAY ABOUT PAIN AND PAIN MEDICATIONS. PATIENT REMAINED AFEBRILE. PATIENT REMAINED ON RA. HR AND BP STABLE. 1 BM THIS SHIFT. 1 VOID THIS SHIFT. BUTTONHOLE MACHINE OPERATOR CHANGED DRESSING TODAY. OT AND PT WORKED WITH PATIENT. PATIENT UP TO RECLINER WITH LIFT. COMPLETE BED BATH PERFORMED. REPORT GIVEN TO ASSUMING BOBBIN WINDER TENDER RN.
--- NOTE | 2022-04-07 22:12 | NUR ---
ASSUMED CARE/CALL FROM DR CASTANEDA PT A/O X 3. PT C/O PAIN IN RIGHT FOOT AND TEETH. PT BEGAN CRYING, AND YELLING WHEN INFORMED THAT PAIN MEDS WERE NOT DUE. OFFERED ICE PACK AND HEAT PACK. PT ACCEPTED COLD WASHCLOTH. SR RATE 80'S. SBP 130'S. ON RA W/ SPO2 GREATER THAN 90%. PT REQUESTING ICE/WATER/BUBBLY. INFORMED PT THAT SHE IS ALREADY OVER HER FLUID RESTRICTION FOR THE NIGHT. OFFERED ORAL CARE, MOUTH SWABS, AND GAVE SIPS WITH MEDICATIONS. PT THEN STATED "I'M CALLING LEONEL CASTANEDA WON'T ALLOW THIS". THIS RN RECEIVED CALL FROM DR CASTANEDA. ORDER RECEIVED TO INCREASE FLUID RESTRICTION TO 1500. ICE CHIPS GIVEN.
[2022-04-08 03:41] LABS: Hemoglobin 9.5 g/dL (11.5-16.0)
[2022-04-08 04:09] LABS: Albumin, Blood 2.3 g/dL (3.4-5.0); Anion Gap 10 mmol/L (6-16); Blood Urea Nitrogen 59 mg/dL (8-24); Bun/Creatinine Ratio 16.2 (12.0-20.0); CO2, Blood 25 mmol/L (21-32); Chloride, Blood 101 mmol/L (98-108); Creatinine, Blood 3.64 mg/dL (0.40-1.00); Glomerular Filtration Rate 15 (60-); Glucose, Blood 96 mg/dL (70-99); Magnesium, Blood 2.5 mg/dL (1.6-2.4); Phosphorus, Blood 6.9 mg/dL (2.5-4.9); Potassium, Blood 5.8 mmol/L (3.5-5.5); Sodium, Blood 136 mmol/L (136-145)
--- NOTE | 2022-04-08 06:05 | NUR ---
SHIFT SUMMARY NO ACUTE EVENTS T/O NIGHT. PT C/O PAIN IN TEETH AND R HEEL. MEDICATED PER EMAR. PT FREQUENTLY FALLING ASLEEP AFTER C/O PAIN AND INFORMED PAIN MEDICATION IS NOT DUE. VSS. PT HAD NO VOID THIS SHIFT. WILL REPORT OFF TO ONCOMING NURSE.
--- NOTE | 2022-04-08 08:00 | NUR ---
Assumed care for pt at 0700. Plan is for her to receive dialysis today. Fluid restriction at 1500 ml q24hr. Pt has a permacath right anterior chest and IV right wrist. 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
--- NOTE | 2022-04-08 09:22 | NUR ---
Pt taken by [facility] to dialysis.
--- NOTE | 2022-04-08 13:10 | NUR ---
Pt returned to ICU bed # 8 around 1300. She has been assigned to PCU #3. RN will call report shortly.
--- NOTE | 2022-04-08 14:01 | NUR ---
Called report to Viky BERRY for PCU #3. Pt most regent BGL 117, which was treated w/ 7 units humalog from the card counting scale.
--- NOTE | 2022-04-08 17:24 | NUR ---
PT TRANSFERRED TO PCU AT APPROX 1500 REPORT RECEIVED FROM DAVID BERRY. PT HAS BEEN ALERT AND ORIENTED AT BASELINE, VITALS HRR SR 80-90'S, SBP 130-170'S, SATS ABOVE 95% ON RA, AFEBRILE. PT HAS BEEN C/O TOOTHACHE SINCE TRANSFER TYLENOL SCHEDULED AND ORAJEL WAS GIVEN PER EMAR, PT WAS UPSET ABOUT NOT GETTING HER NORCO ANYMORE AND IS REQUESTING METHADONE FOR MORE EXPLAINED TO PT HER CURRENT PAIN MEDICINE ORDER. CBG AT 131 AT 1600, PT COMPLIANT WITH NO SNACKS PER ORDER. NO OTHER ISSUES ENCOUNTERED FOR THE SHIFT, PT IN BED RESTING REPOSITIONED FOR COMFORT, ABLE TO MAKE NEEDS KNOWN. CALLS APPROPRIATELY.WILL REPORT TO ONCOMING SHIFT
--- NOTE | 2022-04-08 20:49 | NUR ---
PHYSICIAN COMMUNICATION CONTACTED DR VELARDE TO NOTIFY HIM THAT THE PATIENT'S BLOOD SUGAR WAS 422 AND THAT THE PCT REPORTED THAT THE PATIENT ONLY ATE THE CARBS AND NOT PROTIENS FROM HER DINNER MEAL TRAY. DR VELARDE TO PUT IN ORDERS.
--- NOTE | 2022-04-09 06:33 | NUR ---
SHIFT SUMMARY PATIENT ALERT AND ORIENTED X3. MEDICATED PER EMAR FOR TOOTH PAIN WITH ORAGEL. PATIENT'S BLOOD SUGAR HAS COME DOWN TO 104 THIS MORNING. SHE REMAINED ON ROOM AIR LAST NIGHT, REFUSING HER BIPAP BECAUSE HER NOSE WAS TOO SORE. WILL CONTINUE TO MONITOR. CALL LIGHT WITHIN REACH.
--- NOTE | 2022-04-09 06:45 | NUR ---
DIALYSIS NOTE SUPERVISOR NEWSPAPER DELIVERIES IN TO DRAW LABS FROM HD CATH AT REQUEST OF BEDSIDE RN AND LAB AND WITH APPROVAL FROM .
[2022-04-09 06:59] LABS: Hematocrit 31.1 % (33.0-51.0)
[2022-04-09 07:11] LABS: Albumin, Blood 2.3 g/dL (3.4-5.0); Anion Gap 9 mmol/L (6-16); Blood Urea Nitrogen 58 mg/dL (8-24); Bun/Creatinine Ratio 20.4 (12.0-20.0); CO2, Blood 28 mmol/L (21-32); Calcium, Blood 9.2 mg/dL (8.5-10.1); Chloride, Blood 97 mmol/L (98-108); Creatinine, Blood 2.84 mg/dL (0.40-1.00); Glomerular Filtration Rate 20 (60-); Glucose, Blood 112 mg/dL (70-99); Magnesium, Blood 2.4 mg/dL (1.6-2.4); Phosphorus, Blood 6.4 mg/dL (2.5-4.9); Potassium, Blood 4.6 mmol/L (3.5-5.5); Sodium, Blood 134 mmol/L (136-145)
--- NOTE | 2022-04-09 16:28 | NUR ---
WOUND CARE BLE WOUND CARE DONE PER ORDER. NEW HOTO AND ASSESSMENT IN HARD CHART. RECOMMEND SPECIALTY BED. RECOMMEND FLOATING HEELS OFF MATRESS/BED. PT TOLERATED WELL
--- NOTE | 2022-04-09 17:10 | NUR ---
PT SUMMARY: NO ACUE CHANGE FOR THE SHIFT, VITALS HAS BEEN STABLE. CALLS APPROPRIATELY, C/O TOOTHACHE TWICE RELIEVED BY ORAJEL. PT RECEIVED A BED BATH TODAY ALSO HAD AND EXTRA LARGE BM. C/O BACK AND RIGHT FOOT PAIN, METHADONE DOSE TODAY WAS GIVEN ALSO TYLENOL Q8 HRS SCHEDULED, REPOSITONED FOR COMFORT, EGG CRATE PLACED ON THE MATTRESS FOR PRESSURE SORE PREVENTION HEELS ELEVATED IN THE DIY FOAM ROLL PER WOUND CARE NURSE RECOMMENDATION, WOUND DRESSING CHANGED. PT C/O NAUSEA X1 BEFORE LUNCH TIME ORDER RECEIVED FOR ZOFRAN ODT 2MG X1 AND WAS EFFECTIVE. CBG RANGING 200-300 TODAY INSULIN PER COVERAGE, STILL ON Q4 BLOOD SUGAR CHECK. PT NOW RESTING IN BED, CALL LIGHTS IN REACH WILL REPORT TO ONCOMING SHIFT
--- NOTE | 2022-04-10 06:13 | NUR ---
SHIFT SUMMARY PT HAS RESTED MOST OF THE NIGHT, SHE CONTINIES TO COMPLAIN OF TOOTH PAIN, MEDICATED WITH ORAJEL. BLOOD SUGAR HAS BEEN WELL CONTORLLED THIS SHIFT. PT CONTINUES TRYING TO PERSUADE STAFF TO GIVEN HER STAFF. PT REMINDED AGAIN THAT SHE CANNOT SNACKS AN THE REASONS FOR. PT SLEEPS WITH HER CPAP FOR A LITTLE NIT THIS SHIFT, BUT TAKES OFF FOR A GOOD PORITION OF THE SHIFT REPORTING THAT IT WAS TOO UNCOMFORTABLE FOR HER. NO ACUTE CHANGES OVERNIGHT. BED IN LOWEST POSITION, CALL LIGHT WITHIN REACH.
[2022-04-10 09:42] LABS: Hematocrit 28.2 % (33.0-51.0)
[2022-04-10 10:07] LABS: Albumin, Blood 2.4 g/dL (3.4-5.0); Anion Gap 16 mmol/L (6-16); Blood Urea Nitrogen 74 mg/dL (8-24); Bun/Creatinine Ratio 22.6 (12.0-20.0); CO2, Blood 22 mmol/L (21-32); Calcium, Blood 8.8 mg/dL (8.5-10.1); Chloride, Blood 94 mmol/L (98-108); Creatinine, Blood 3.28 mg/dL (0.40-1.00); Glomerular Filtration Rate 17 (60-); Glucose, Blood 374 mg/dL (70-99); Magnesium, Blood 2.3 mg/dL (1.6-2.4); Phosphorus, Blood 7.9 mg/dL (2.5-4.9); Sodium, Blood 132 mmol/L (136-145)
--- NOTE | 2022-04-10 14:30 | NUR ---
Spiritual Care Visit. Pt. is awake in bed and eating lunch. Pt. welcomes my visit, is pleasant and rapport is re-established. Pt. has been a Pt. at [facility] for many months. Over that time a great deal of rapport and trust have been established between the Pt. and this mixed signal design engineer. Today, I facilitated life conversation about family where the Pt. is unsettled about her brother who is in [place] on life support. Listen with empathy and a calming presence. Pt. displays evidence of an encouraged and uplifted spirit. This mixed signal design engineer excused himself when PT showed up for the Pt. Pt. verbalized gratitude for the spiritual care visit.
--- NOTE | 2022-04-10 17:14 | NUR ---
SHIFT SUMMARY PT A/O X4, COOPERATIVE, USED CALL LIGHT APPROPRIATELY. PT SR IN THE 70'S. SBP IN THE 130'S-140'S. PT ON RA, O2 SAT >92%. LUNGS CLEAR T/O. PT BLOOD GLUCOSE BETWEEN 150-275. PT HAD 3HR DIALYSIS THIS AM, TOLERATED WELL. OCCUPATIONAL THERAPY PROVIDED PT WITH PILLOW FOR BEHIND HEELS TO KEEP WEIGHT OFF OF WOUND. PT REPOSITIONED Q2H. BLOOD SUGARS CHECKED Q4H. PT C/O PAIN IN THE MOUTH ONLY AT THE BEGINNING OF SHIFT, ORAJEL APPLIED. NO FURTHER COMPLAINTS ABOUT MOUTH PAIN FROM PT. NO ACUTE CHANGES FOR PT THIS SHIFT. WILL CONTINUE TO CARE FOR PT AND REPORT TO ONCOMING RN.
--- NOTE | 2022-04-10 20:21 | NUR ---
Call to MD Ramos to get clarification on how to dose Humalog sliding scale. Humalog is ordered to be administered q 4 hours. However, the sliding scale associated with the order has just 3 options for administration: AC, q6, HS. Order recieved to change frequency of Humnalog to q6 hours.
--- NOTE | 2022-04-11 06:45 | NUR ---
NO ACUTE EVENTS OVERNIGHT LAST NIGHT. SLIDING SCALE INSULIN ADMINISTERED ORDERED. LIZ WAS COMPLIANT WITH USE OF CPAP FOR 4 HOURS WHILE SLEEPING LAST NIGHT. ALLAN IS COMPLAINING OF TOOTH PAIN TO BOTH SIDES OF HER MOUTH. SHE IS GETTING SOME RELIEF WITH ORAGEL, BUT THE RELIEF IS MINIMAL. SHE IS REQUESTING TO SEE A DENTIST IF POSSIBLE.
[2022-04-11 07:27] LABS: Hematocrit 28.2 % (33.0-51.0); Hemoglobin 9.1 g/dL (11.5-16.0)
--- NOTE | 2022-04-11 07:30 | NUR ---
DIALYSIS NOTE PLOW HOLDER IN TO DRAW LABS FROM HD CATH AT REQUEST OF BEDSIDE RN AND LAB AND WITH APPROVAL FROM .
[2022-04-11 07:46] LABS: Magnesium, Blood 2.3 mg/dL (1.6-2.4)
[2022-04-11 07:47] LABS: Albumin, Blood 2.3 g/dL (3.4-5.0); Anion Gap 9 mmol/L (6-16); Blood Urea Nitrogen 64 mg/dL (8-24); Bun/Creatinine Ratio 24.2 (12.0-20.0); CO2, Blood 28 mmol/L (21-32); Calcium, Blood 8.8 mg/dL (8.5-10.1); Chloride, Blood 96 mmol/L (98-108); Creatinine, Blood 2.64 mg/dL (0.40-1.00); Glomerular Filtration Rate 22 (60-); Glucose, Blood 259 mg/dL (70-99); Phosphorus, Blood 5.8 mg/dL (2.5-4.9); Potassium, Blood 4.5 mmol/L (3.5-5.5); Sodium, Blood 133 mmol/L (136-145)
--- NOTE | 2022-04-11 12:24 | NUR ---
WOUND CARE WOUND CARE DONE PER ORDER. PT TOLERATED WELL
--- NOTE | 2022-04-11 18:20 | NUR ---
SHIFT SUMMARY PT IS ALERT AND ORIENTED X 4, SHE HAS BEEN ABLE TO MAKE HER NEEDS KNOWN. VSS, SPO2 MAINTAINED >95% VIA ROOM AIR. SHE HAS DENIED FEELING SOB, SHE HAS DENIED CHEST PAIN/PRESSURE. NO COUGH NOTED. PAIN HAS BEEN REPORTED IN R LEG, BACK, AND TOOTH. SEE EMAR FOR PAIN MANAGEMENT. OCCUPATIONAL THERAPY WORKED W/ PT TODAY. PT ALSO REPOSITIONED TO REDUCE PAIN/MAINTAIN COMFORT. NICOLASA RN FROM WOUND CARE DRESSED R HEEL WOUND AND PAINTED L HEEL WOUND W/ BETADINE, L WOUND IS OPEN TO AIR, BILAT HEELS HAVE BEEN FLOATED DURING SHIFT AND REPOSITIONING IMPLIMENTED TO KEEP OFF PRESSURE POINTS. ALY AREA IS RED W/ SOME NOTABLE SKIN TEARS, ALY CARE PROVIDED DURING SHIFT AND POWDER APPLIED. PURWICK DEVICE IS IN PLACE AND CONNECTED TO SUCTION PER PROTOCOL/ORDERS. PT HAS BEEN UP IN CHAIR VIA LIFT SINCE APPROX. 1430. PT IS CURRENTLY EATING DINNER, FAMILY IS AT BEDSIDE. PT HAS BEEN EDUCATED BY THIS RN REGARDING NO SNACK ORDER INCLUDING SF COFFEE BEVERAGES FROM [employer]. THIS NURSE ALSO MADE FAMILY AWARE OF NO SNACK ORDERS. WILL CONTINUE TO MONITOR UNTIL REPORT GIVEN. CALL LIGHT IS IN REACH.
--- NOTE | 2022-04-11 21:45 | NUR ---
ENTERED PATIENT'S ROOM AFTER FAMILY LEFT IN THE 2000 HOUR. ALLAN WAS ASLEEP IN THE RECLINER AND HER MEAL TRAY ON HER SIDE TABLE. IN ADDITION TO HER DISHES FROM HER DINNER TRAY, THERE WERE DISPOSABLE FOOD CONTAINERS (SOUP BOWL AND 2 OTHER BASKET LIKE CONTAINERS) SITTING ON HER DINNER TRAY. THERE WERE 4 PACKETS OF KETCHUP SITTING ON ANOTHER TRAY IN THE ROOM, ALONG WITH HALF EMPTY CUPS OF WHAT LOOKED LIKE SODA IN THE TRASH CAN. I ASKED ALLAN IF SHE THE FOOD ITEMS THAT WERE NOT PART OF HER DINNER TRAY AND SHE SAID THAT SHE DID NOT, THAT HER MOM AND OTHER FAMILY MEMBERS ATE THE FOOD FROM THE [place]. ALLAN BECAME VERY UPSET AND STARTED YELLING ABOUT HER FAMILY BEING BLAMED FOR BRINGING HER FOOD. I ASKED THAT SHE STOP YELLING AND CURSING, AND SHE DID SO AFTER A FEW MINUTES. EDUCATION WAS PROVIDED ABOUT THE IMPORTANCE OF COMPLIANCE WITH HER PRESCRIBED DIET IN ORDER TO MANAGE HER BLOOD SUGAR LEVEL. I ENCOURAGED ALLAN TO DISCOURAGE HER FAMILY MEMBERS FROM BRINGING ANY FOOD OR DRINK INTO HER PATIENT ROOM, WHETHER FOR HER OR FOR THEM. SHE SAID THAT SHE IS NOT GOING TO TELL THEM THEY CAN'T BRING FOOD THEY WANT TO EAT TO HER ROOM WHEN THEY VISIT. SENIOR STRATEGY ANALYST BRONWYN ADVISED OF THE ABOVE.
--- NOTE | 2022-04-12 06:52 | NUR ---
NO ACUTE EVENTS OVERNIGHT LAST NIGHT. ALLAN CONTINUES TO REPORT PAIN TO THREE OF HER TEETH. ORAGEL ADMINISTERED ORDERED. LIZ REFUSED TO SLEEP IN THE BED LAST NIGHT, AND INSTREAD REMAINED IN THE RECLINER. SHE WORE HER CPAP FOR APPROXIMATELY 3 HOURS AND THEN REMOVED IT. ALLAN HAS NO IV ACCESS AFTER FAILED ATTEMPTS FROM 3 NURSES. WILL PASS ON TO DAY RN TO DISCUSS WITH MD IF OKAY FOR ALLAN TO BE WITHOUT IV ACCESS AT THIS TIME.
[2022-04-12 10:02] LABS: Hemoglobin 9.4 g/dL (11.5-16.0)
[2022-04-12 10:27] LABS: Magnesium, Blood 2.4 mg/dL (1.6-2.4)
[2022-04-12 10:28] LABS: Albumin, Blood 2.4 g/dL (3.4-5.0); Anion Gap 13 mmol/L (6-16); Blood Urea Nitrogen 90 mg/dL (8-24); Bun/Creatinine Ratio 26.4 (12.0-20.0); CO2, Blood 24 mmol/L (21-32); Chloride, Blood 98 mmol/L (98-108); Creatinine, Blood 3.41 mg/dL (0.40-1.00); Glomerular Filtration Rate 16 (60-); Glucose, Blood 281 mg/dL (70-99); Phosphorus, Blood 7.1 mg/dL (2.5-4.9); Potassium, Blood 4.7 mmol/L (3.5-5.5); Sodium, Blood 135 mmol/L (136-145)
--- NOTE | 2022-04-12 18:48 | NUR ---
PT SUMMARY: NO ACUTE CHANGE FOR THE SHIFT, VITALS HAS BEEN STABLE. DIALYSIS WAS DONE TODAY PT TOLERATED WELL. C/O TOOTHACHE ONCE FOR THE SHIFT MEDICATED WITH ORAJEL. STILL C/O RIGHT FOOT AND BACK PAIN MEDICATED PER EMAR. BED BATH PROVIDED, PT HAS BEEN UP IN THE RECLINER, CALLS APPROPRIATELY. BLOOD SUGAR CONTROLLED PER INSULIN COVERAGE. STILL ON FLUID RESTRICTION 1500L. NO OTHER ISSUES ENCOUNTERED ABLE TO MAKE NEEDS KNOWN, WILL REPORT TO ONCOMING SHIFT
--- NOTE | 2022-04-13 05:11 | NUR ---
SHIFT SUMMARY A/OX3, PLEASANT AND COOPERATIVE WITH CARE. PERMACATH TO RCW C/D/I. COMPLIANT WITH CPAP. VSS, NO ACUTE CHANGES AT THIS TIME. BED IN LOWEST POSITION WITH CALL LIGHT IN REACH. WILL CONTINUE TO MONITOR AND REPORT TO ONCOMING RN.
[2022-04-13 11:52] LABS: Hematocrit 28.7 % (33.0-51.0)
[2022-04-13 12:08] LABS: Albumin, Blood 2.3 g/dL (3.4-5.0); Anion Gap 7 mmol/L (6-16); Blood Urea Nitrogen 54 mg/dL (8-24); Bun/Creatinine Ratio 19.3 (12.0-20.0); CO2, Blood 30 mmol/L (21-32); Calcium, Blood 8.6 mg/dL (8.5-10.1); Chloride, Blood 101 mmol/L (98-108); Glomerular Filtration Rate 20 (60-); Glucose, Blood 168 mg/dL (70-99); Magnesium, Blood 2.3 mg/dL (1.6-2.4); Phosphorus, Blood 5.5 mg/dL (2.5-4.9); Potassium, Blood 4.4 mmol/L (3.5-5.5); Sodium, Blood 138 mmol/L (136-145)
--- NOTE | 2022-04-13 18:45 | NUR ---
PT SUMMARY: NO ACUTE CHANGE FOR THE SHIFT, PTS BLOOD SUGAR WELL CONTROLLED WITH SLDIING SCALE AND CARBS COUNTING INSULIN COVERAGE. PT WAS EDUCATED ABOUT INSULIN ADMINISTRATION AND CARB COUNTING PT ABLE TO DEMONSTRATE HOW TO ADD UP CARBS STILL ASSISTED AND INSULIN SELF ADMINISTRATION. PT DENIES ANY TOOTHACHE FOR THE SHIFT STILL HAS SOME BACK AND FOOT PAIN, REPOSITIONED Q2HRS, PT STAYED UP IN THE RECLINER, RECEIVED A BED BATH TODAY. VITALS HAS BEEN STABLE. PT AWAITING FOR PLACEMENT. PROVIDER OKAY WITH PT NOT HAVING ANY IV ACCESS. WILL REPORT TO ONCOMING SHIFT
--- NOTE | 2022-04-14 02:50 | NUR ---
0131-PT FSBS 55, 2 CHEESE SNACKS AND CRACKERS GIVEN 0156-FSBS 115
--- NOTE | 2022-04-14 05:58 | NUR ---
PT WORE CPAP FOR A COUPLE OF HOURS OVERNIGHT, RECIEVED 2 SNACKS TOTAL FOR DROPPING BLOOD GLUCOSE , ONE INCONTINENT URINE, VSS
[2022-04-14 08:53] LABS: Hemoglobin 9.3 g/dL (11.5-16.0)
[2022-04-14 09:22] LABS: Albumin, Blood 2.4 g/dL (3.4-5.0); Anion Gap 13 mmol/L (6-16); Blood Urea Nitrogen 71 mg/dL (8-24); Bun/Creatinine Ratio 20.9 (12.0-20.0); CO2, Blood 23 mmol/L (21-32); Calcium, Blood 8.8 mg/dL (8.5-10.1); Chloride, Blood 97 mmol/L (98-108); Creatinine, Blood 3.39 mg/dL (0.40-1.00); Glomerular Filtration Rate 16 (60-); Glucose, Blood 328 mg/dL (70-99); Magnesium, Blood 2.4 mg/dL (1.6-2.4); Phosphorus, Blood 7.2 mg/dL (2.5-4.9); Potassium, Blood 5.3 mmol/L (3.5-5.5); Sodium, Blood 133 mmol/L (136-145)
--- NOTE | 2022-04-14 16:15 | NUR ---
WOUND CARE BLE WOUND CARE DONE PER ORDER. PT WITH NEW BREAKDOWN ON BL GLUT. NICKEL THICK BARRIER CREAM APPLIED. PINK EGGCRATE TO RECLINER. PT AIR BED LOCATED AND IN USE. PT TOLERATED WELL
--- NOTE | 2022-04-14 18:49 | NUR ---
PT SUMMARY: NO ACUTE CHANGE FOR THE SHIFT, DIALYSIS DONE TODAY, VITALS HAS BEEN STABLE. PT HAS BEEN CALLING APPROPRIATELY. WOUND CARE NURSE CAME IN TO REDRESS WOUND TODAY, PT WOUND CARE BED FINALLY GOT IN THE ROOM, PT STILL REQUESTED TO STAY UP IN THE RECLINER. EATING AND DRINKING APPROPRIATELY PER DIET AND FLUID RESTRICTION ORDERS. BED BATH COMPLETED REPOSTIONED Q2HRS. MEDICATED FOR PAIN PER EMAR. NO OTHER ISSUES ENCOUNTERED WILL REPORT TO ONCOMING SHIFT
--- NOTE | 2022-04-15 05:47 | NUR ---
SHIFT SUMMARY PT HAS BEEN UPSET WITH CARE MOST OF THE SHIFT DUE TO FLUID RESTRICTIONS, PT HAD EXCEEDED HER DAILY INTAKE AND WAS NOT ABLE TO HAVE ANY EXTRA FLUID DURING THE NIGHT, PT STATED THAT "SHE WAS GOING TO CALL TO REPORT IT AND ASK FOR MORE", PT WAS CALLING THE DAY NURSE NAMES AND BEING VERY RUDE TO NIGHT STAFF, PT ALSO STATED THAT SHE "LOVED HER METHADONE AND WAS GOING TO PUSH FOR 3 DOSES TOMORROW MORNING". 2100 INSULIN ORDER WAS CHANGED DUE TO PT BECOMING HYPOGLYCEMIC, PT WAS GIVEN SNACKS TO IMPROVE GLUCOSE TWICE. PT TOLERATED HER CPAP FOR APPROX 4 HRS THROUGH THE NIGHT, SPO2 >95% ON RA BUT PT WANTED HER NC ON WHILE NOT ON CPAP, VSS, PAIN MNGD PER EMAR. PT REFUSED TO SLEEP IN HER BED AND ONLY ALLOWED MINOR ADJUSTMENTS IN CHAIR, NO OTHER CHANGES NOTED, WCTM & REPORT TO ONCOMING RN, CALL LIGHT IN REACH.
[2022-04-15 07:36] LABS: Hematocrit 28.8 % (33.0-51.0); Hemoglobin 8.9 g/dL (11.5-16.0)
[2022-04-15 07:46] LABS: Albumin, Blood 2.4 g/dL (3.4-5.0); Anion Gap 11 mmol/L (6-16); Blood Urea Nitrogen 51 mg/dL (8-24); CO2, Blood 27 mmol/L (21-32); Calcium, Blood 8.9 mg/dL (8.5-10.1); Chloride, Blood 102 mmol/L (98-108); Creatinine, Blood 2.69 mg/dL (0.40-1.00); Glomerular Filtration Rate 21 (60-); Glucose, Blood 243 mg/dL (70-99); Phosphorus, Blood 6.4 mg/dL (2.5-4.9); Potassium, Blood 4.5 mmol/L (3.5-5.5); Sodium, Blood 140 mmol/L (136-145)
--- NOTE | 2022-04-15 18:21 | NUR ---
END OF SHIFT PT A&O X3. VSS. SPO2 > 92% ON 2L NC. MONITOR SHOWING SR, HR 60s-70s. PT UP IN CHAIR T/O SHIFT, REQUIRING REPOSITIONING IN CHAIR. PT WEARING ATTENDS W/ EPISODE OF URINARY INCONTINENCE. PT REQUESTING FLUIDS T/O SHIFT, REQUIRING REORIENTING & EDUCATION OF FLUID RESTRICTION UPON EVERY PT ENCOUNTER. CBG ELEVATED THIS AM, IMPROVED W/ INSULIN TX.
--- NOTE | 2022-04-16 04:35 | NUR ---
SHIFT SUMMARY NO ACUTE CHANGES OVERNIGHT. PT REMAINS ALERT AND ORIENTED X4, ABLE TO FOLLOW COMMANDS AND MAKE NEEDS KNOWN. BP AND HR STABLE, AFEBRILE, SATS >95% ON 4L NC. PT WORE CPAP A MAJORITY OF THE NIGHT. CBG REMAIN STABLE. PLAN FOR DIALYSIS IN AM. CALL LIGHT IN REACH, WILL REPORT TO ONCOMING RN.
[2022-04-16 09:13] LABS: Hematocrit 27.4 % (33.0-51.0); Hemoglobin 8.7 g/dL (11.5-16.0)
[2022-04-16 09:27] LABS: Albumin, Blood 2.5 g/dL (3.4-5.0); Anion Gap 10 mmol/L (6-16); Blood Urea Nitrogen 76 mg/dL (8-24); Bun/Creatinine Ratio 22.2 (12.0-20.0); CO2, Blood 24 mmol/L (21-32); Calcium, Blood 8.9 mg/dL (8.5-10.1); Chloride, Blood 103 mmol/L (98-108); Creatinine, Blood 3.42 mg/dL (0.40-1.00); Glomerular Filtration Rate 16 (60-); Glucose, Blood 334 mg/dL (70-99); Magnesium, Blood 2.6 mg/dL (1.6-2.4); Phosphorus, Blood 7.6 mg/dL (2.5-4.9); Potassium, Blood 5.8 mmol/L (3.5-5.5); Sodium, Blood 137 mmol/L (136-145)
--- NOTE | 2022-04-16 15:24 | NUR ---
Spiritual Care Visit. Pt. is awake and welcomes my visit. Pt. has been a pt. at this hospital for a long time. Pt. is pleasant and finishing her lunch while I visit. Pt. verbally expresses appreciation for the care she has been receiving. Facilitate more life discussion. Pt. verbalized that she was told she might be able to go home in a couple weeks. Pt. has family members arrive so this international freight forwarder excused himself. Pt. verbalized gratitude for the spiritual care visit.
--- NOTE | 2022-04-16 18:50 | NUR ---
END OF SHIFT PT CONTINUES TO BE A&O X3. VSS. SPO2 > 92% ON 2L NC. PT ON RA AT TIMES, REQUIRING REAPPLICATION OF 2L NC D/T SPO2 DECREASE TO MID 80s w/out O2. MONITOR SHOWING SR, HR 60s-70s. PT UP IN CHAIR T/O SHIFT. PT TOLERATING FLUID RESTRICTION. CBGs STABLE THIS SHIFT.
--- NOTE | 2022-04-17 05:04 | NUR ---
SHIFT SUMMARY: PT REMAINS ALERT AND ORIENTED X3, FOLLOWS COMMANDS AND MAKE NEEDS KNOWN. BP AND HR STABLE, AFEBRILE, SATS >93% ON 2L NC. PT WORE CPAP MAJORITY OF THE NIGHT. CBG 65 EARLIER IN THE EVENING, 2 PIECES OF CHEESE GIVEN. CBG UP TO 101. PT STILL AWAITING PLACEMENT. NO DIALYSIS IN AM. BED IN LOW, CALL LIGHT IN REACH, WILL REPORT TO ONCOMING RN.
--- NOTE | 2022-04-17 10:00 | NUR ---
DIALYSIS NOTE PUBLIC HEALTH WORKER IN TO DRAW LABS FROM HD CATH AT REQUEST OF BEDSIDE RN AND LAB AND WITH APPROVAL FROM .
[2022-04-17 10:12] LABS: Hematocrit 27.8 % (33.0-51.0); Hemoglobin 8.9 g/dL (11.5-16.0)
[2022-04-17 10:34] LABS: Albumin, Blood 2.5 g/dL (3.4-5.0); Anion Gap 8 mmol/L (6-16); Blood Urea Nitrogen 67 mg/dL (8-24); Bun/Creatinine Ratio 24.2 (12.0-20.0); CO2, Blood 29 mmol/L (21-32); Calcium, Blood 8.9 mg/dL (8.5-10.1); Chloride, Blood 96 mmol/L (98-108); Creatinine, Blood 2.77 mg/dL (0.40-1.00); Glomerular Filtration Rate 21 (60-); Glucose, Blood 370 mg/dL (70-99); Phosphorus, Blood 5.8 mg/dL (2.5-4.9); Sodium, Blood 133 mmol/L (136-145)
--- NOTE | 2022-04-17 18:30 | NUR ---
END OF SHIFT PT A&O X3. BP ELEVATED, OTHERWISE VSS. SPO2 > 92% ON RA-2L NC PRN. MONITOR SHOWING SR, HR 60s-70s. NO DIALYSIS TODAY. PT UP IN CHAIR T/O SHIFT. CBGs ELEVATED, MEDICATING PER EMAR. NO EVENTS.
--- NOTE | 2022-04-17 20:15 | NUR ---
ASSUMPTION OF CARE/ASSESSMENT ASSUMED CARE OF PT AT 1900. REPORT RECEIVED FROM KRISTI LO. PT ASSESSMENT COMPLETED, SEE DOCUMATION. PT MEDICATED PER EMAR. EDUCATION PROVIDED ON MEDICATIONS PRIOR TO ADMINISTRATION AND ADDITIONAL QUESTIONS ADDRESSED. PLAN FOR SHIFT DISCUSSED AND COLLABORATE WITH PT FOR PREFERENCES. NO ADDITIONAL NEEDS AT THIS TIME. WILL CONTINUE TO MONITOR.
--- NOTE | 2022-04-17 21:20 | NUR ---
ADL'S PT SLEEPING UPON ENTERING ROOM. PT GOWN CHANGED DUE TO BEING SOILED FROM DINNER AND PERMICATH DRESSING CHANGED DUE TO PT COMPLAINT OF ITCHING. PT REQUESTING BUBLY WITH 2 SPLENDA WHICH WAS PROVIDED. PT UPDATED ON STATUS OF FLUID RESTRICTION AMOUNTS. PT REPOSITIONED IN RECLINER PER REQUEST. DENIES ADDITIONAL NEEDS AT THIS TIME. DENIES WANTING BIPAP ON. CALL LIGHT IN REACH. WILL CONTINUE TO MONITOR.
--- NOTE | 2022-04-17 23:13 | NUR ---
PT REPORTS THAT SHE FEELS LIKE HER BLOOD SUGAR IS LOW. OFFERED TO CHECK PRIOR TO MIDNIGHT AND PT AGREEABLE. CBG 166. PT TO EAT HER SALAD LEFT OVER FROM DINNER. PT SPO2 90% ON RA AFTER REMOVING BIPAP. PT PLACED BACK ON 2L NC AND SPO2 GREATER THAN 95%. WILL RETURN AROUND MIDNIGHT TO UPDATE VITALS AND PLACE PT BACK ON BIPAP.
--- NOTE | 2022-04-18 00:42 | NUR ---
0000 ASSESSMENT VS UPDATED. NO CHANGES FROM PRIOR ASSESSMENT. PT MEDICATED PER EMAR AFTER EDUCATION PROVIDED ON MEDICATIONS. PT RETURNED TO BIPAP. DENIES ADDITIONAL NEEDS AND CALL LIGHT IN REACH.
--- NOTE | 2022-04-18 03:53 | NUR ---
0400 ASSESSMENT PT AWAKE AND WITH BIPAP OFF. O2 2L VIA NC REPLACED. PT REQUESTED HER BLOOD SUGAR BE CHECKED DUE TO FEELING HYPOGLYCEMIC. CHEM BG CHECKED AND 140. VS UPDATED. PT WITH NO ADDITIONAL NEEDS AT THIS TIME. CALL LIGHT IN REACH AND WILL CONTINUE TO MONITOR.
--- NOTE | 2022-04-18 06:40 | NUR ---
SHIFT SUMMARY NO ACUTE EVENTS THROUGHT SHIFT. PT WITH NEW STYE TO R EYE. PROVIDED WARM WASH CLOTH WHICH IS PROVIDING RELIEF. PT CONTINUES WITH FLUID RESTRICTION. NO ADDITIONAL NEEDS AT THIS TIME. WILL PROVIDE REPORT TO ONCOMING RN.
[2022-04-18 08:09] LABS: Hematocrit 26.6 % (33.0-51.0); Hemoglobin 8.3 g/dL (11.5-16.0)
[2022-04-18 08:24] LABS: Albumin, Blood 2.3 g/dL (3.4-5.0); Anion Gap 10 mmol/L (6-16); Blood Urea Nitrogen 82 mg/dL (8-24); Bun/Creatinine Ratio 24.9 (12.0-20.0); CO2, Blood 26 mmol/L (21-32); Calcium, Blood 8.5 mg/dL (8.5-10.1); Chloride, Blood 99 mmol/L (98-108); Creatinine, Blood 3.29 mg/dL (0.40-1.00); Glomerular Filtration Rate 17 (60-); Glucose, Blood 234 mg/dL (70-99); Magnesium, Blood 2.5 mg/dL (1.6-2.4); Phosphorus, Blood 6.6 mg/dL (2.5-4.9); Potassium, Blood 5.5 mmol/L (3.5-5.5); Sodium, Blood 135 mmol/L (136-145)
--- NOTE | 2022-04-18 08:36 | NUR ---
AM NOTE DIALYSIS THIS AM STARTING 0745, VSS, SPO2 96% VIA 2L NC. PT NOW UP IN CHAIR EATING BREAKFAST. WILL CONTINUE TO MONITOR
--- NOTE | 2022-04-18 12:37 | NUR ---
MEDICATION/CARE NOTE BOOD PRESSURE MEDICATIONS GIVEN LATE THIS AM DUE TO PT BEING IN DIALYSIS. BP WAS STILL ELEVATED UPON REASSESSMENT THEREFORE 0800 AND 0900 BLOOD PRESSURE MEDICATIONS GIVEN. WILL CONTINUE TO MONITOR.
[2022-04-18 13:30] LABS: Glucose (ISTAT POC) 606 mg/dL (70-99)
[2022-04-18 13:30] LABS: Glucose (ISTAT POC) 641 mg/dL (70-99)
--- NOTE | 2022-04-18 15:36 | NUR ---
WOUND CARE NOTE BETADINE PAINTED ON LEFT HEEL, R FOOT IS COVERED W/ GAUZE DRESSING THAT APPEARS DRY/CLEAN. HEELS ARE FLOATED ON EGG CRATE. PT IN CHAIR. CALL LIGHT IN REACH.
--- NOTE | 2022-04-18 16:32 | NUR ---
CARE NOTE NICOLASA RN NOTIFIED THIS RN THAT RIGHT FOOT/LEG HAS INCREASE IN SWELLING COMPARED TO PREVIOUS DAYS. PULSE IS DIFFICULT TO PALPATE SO DOPPLER UTILIZED AND PULSE IS AUDIBLE VIA DOPPLER. RIGHT LEG/FOOT APPEARS SWOLLEN 3+ EDEMA. RIGHT CALF IS WARM TO TOUCH AND REDNESS IS NOTED. DR. GARCIA MADE AWARE BY THIS RN APPROX. 1625 OF SWELLING/REDNESS IN R FOOT/CALF. WILL CONTINUE TO MONITOR. CALL LIGHT IS IN REACH.
--- NOTE | 2022-04-18 17:04 | NUR ---
WOUND CARE ON ASSESSMENT RLE IS PAINFUL, RED, WITH TIGHT NON-PITTING EDEMA. THIS RN SPOKE WITH PRIMARY RN REGARDING PT OSTEOMYLITIS AND RECENT TREATMENT COURSE. THIS RN IS CONCERNED THAT ANTIBIOTIC COURSE MAY NOT HAVE BEEN EFFECTIVE. PT WOULD BENEFIT FROM IMAGING AND POSSIBLE PODIATRY CONSULT. NOTIFIED
[2022-04-18 17:38] LABS: BASOPHILS ABSOLUTE AUTO 0.07 K/mm3 (0.00-0.23); BASOPHILS PERCENT AUTO 1 % (0-2); EOSINOPHILS ABSOLUTE AUTO 0.28 K/mm3 (0.00-0.68); EOSINOPHILS PERCENT AUTO 4 % (0-6); Hematocrit 30.5 % (33.0-51.0); Hemoglobin 9.6 g/dL (11.5-16.0); IMMATURE GRAN ABSOLUTE AUTO 0.03 K/mm3 (0.00-0.10); IMMATURE GRAN PERCENT AUTO 0 % (0-1); LYMPHOCYTES ABSOLUTE AUTO 0.46 K/mm3 (0.84-5.20); LYMPHOCYTES PERCENT AUTO 6 % (21-46); MONOCYTES ABSOLUTE AUTO 1.03 K/mm3 (0.16-1.47); MONOCYTES PERCENT AUTO 13 % (4-13); Mean Corpuscular HGB 29.9 pg (26.0-34.0); Mean Corpuscular HGB Conc 31.5 g/dL (31.5-36.5); Mean Corpuscular Volume 95 fL (80-100); Mean Platelet Volume 9.2 fL (9.1-12.4); NEUTROPHILS ABSOLUTE AUTO 6.01 K/mm3 (1.96-9.15); NEUTROPHILS PERCENT AUTO 76 % (41-73); Platelet Count 527 K/mm3 (150-400); RDW Coefficient Variation 13.5 % (11.7-14.2); RDW Standard Deviation 46.9 fL (35.1-46.3); Red Blood Cell Count 3.21 M/mm3 (3.80-5.20); White Blood Cell Count 7.88 K/mm3 (4.00-11.30)
--- NOTE | 2022-04-18 17:56 | NUR ---
SHIFT SUMMARY PT IS ALERT AND ORIENTED X 4, SHE ANSWERS QUESTIONS APPROPRIATELY AND IS ABLE TO MAKE HER NEEDS KNOWN. SHE HAS BEEN UP IN CHAIR T/O SHIFT W/ REPOSITIONING IMPLIMENTED TO KEEP OFF PRESSURE POINTS AND KEEP SKIN INTACT. SPO2 MAINTAINED VIA 2L NC, PT DENIES FEELING SOB. HR STABLE, BP HAS BEEN ELEVATED DURING SHIFT W/ SBP RANGING 148-176, SEE EMAR FOR BP MANAGEMENT. PT HAS DENIED FEELINGS OF CHEST PAIN/PRESSURE. SHE HAS DENIED FEELINGS OF NAUSEA, NO COUGH NOTED. SEE PREVIOUS NOTE REGARDING WOUND IN R FOOT WELL REDNESS/SWELLING IN R CALF. POWDER APPLIED TO FOLDS IN PANNUS, ALY AREA, AND BUTTOCKS TO KEEP SKIN DRY. CLEAN ATTENDS ARE IN PLACE. PAIN REPORTED IN R FOOT, BACK WELL HEADACHE, PLEASE SEE EMAR FOR PAIN MANAGEMENT. REDNESS NOTED IN R EYE W/ APPARENT STYE. WARM COMPRESSESS PROVIDED AND PT EDUCATED NOT TO TOUCH EYE SHE REPORTED ATTEMPTING TO "POP" THE STYE. DIALYSIS CATHETER IS IN PLACE AND DRESSED, PT RECIEVED DIALYSIS TODAY AND INSPECTOR RETURNED MATERIALS REPORTED 3.6L REMOVED. XR OF R FOOT COMPLETED THIS EVENING AND RESULTS PENDING. DR. FAIR CONSULTED BY THIS RN PER DR. GARCIA ORDERS, SEE ORDERS REGARDING CONSULT NOTES. THIS RN PAINTED LEFT FOOT W/ BETADINE PER EMAR ORDERS. PT IS CURRENTLY EATING DINNER IN CHAIR AND WATCHING TV. WILL CONTINUE TO MONITOR UNTIL REPORT GIVEN. CALL LIGHT IS IN REACH.
--- NOTE | 2022-04-18 20:30 | NUR ---
ASSUMPTION OF CARE UPON PRESENTATION, PATIENT UP IN CHAIR, VISITING WITH FAMILY. RESISTIVE TO TURNING AND REQUIRED RE-EDUCATION ON THE NEED FOR PRESSURE REDISTRUBTION TO PREVENT PRESSURE ULCERS. PATIENT TEARFUL AFTER EDUCATION; MOOD VERY LABILE. REPOSITIONED HIPS IN CHAIR. OTHERWISE, TELEMETRY SHOWING SR 60S. HEMODYNAMICALLY STABLE. 2L NC. BRIEF DRY. DIALYSIS CATH SITE WNL. CALL LIGHT WITHIN REACH.
--- NOTE | 2022-04-19 06:30 | NUR ---
SHIFT SUMMARY PATIENT BECAME HYPOGLYCEMIC OVERNIGHT X2. PATIENT DIAPHOROETIC AND C/O HEADACHE AT THE TIME OFHYPOGLYCEMIC EPISODES. DR BISHOP NOTIFIED. BG ORIGINALLY 44, CORRECTED TO 89 AFTER PO GLUCOSE GEL (SEE MAY). HOWEVER, PATIENT DROPPED AGAIN ON RECHECK TO 66, GIVEN ANOTHER TUBE OF GLUCOSE GEL PER MAY. THIS MORNING, PATIENT OVERCORRECTED ON BG, UP TO 209. OTHERWISE, PATIENT ALERT AND ORIENTED. C/O HEADACHE OVERNIGHT, MOSTLY ASSOCIATED WITH HYPOGLYCEMIC EPISODES. RECEIVING SCHEDULED TYLENOL AND METHADONE. HYPERTENSIVE, SBP 140-160S. SB/SR ON TELEMETRY, HR 50-60S. AFEBRILE. SWELLING TO BLE, R>L; MD AWARE ON DAY SHIFT PER REPORT. 2L NC OVERNIGHT; REFUSED CPAP. SMALL SMEAR BM. X1 URINARY INCONTINENT EPISODE THIS AM. DRESSING TO RLE INTACT. TURNED Q2 IN CHAIR, DESPITE INTERMITTENT RESISTANCE FROM PATIENT. CONTINUED EDUCATION ON BENEFIT OF PRESSURE REDISTRIBUTION. PERMACATH TO CHEST WNL. CALL LIGHT WITHIN REACH AND ABLE TO COMMUNICATE NEEDS.
[2022-04-19 10:49] LABS: BASOPHILS ABSOLUTE AUTO 0.07 K/mm3 (0.00-0.23); BASOPHILS PERCENT AUTO 1 % (0-2); EOSINOPHILS ABSOLUTE AUTO 0.35 K/mm3 (0.00-0.68); EOSINOPHILS PERCENT AUTO 3 % (0-6); Hematocrit 27.9 % (33.0-51.0); Hemoglobin 8.8 g/dL (11.5-16.0); IMMATURE GRAN ABSOLUTE AUTO 0.04 K/mm3 (0.00-0.10); IMMATURE GRAN PERCENT AUTO 0 % (0-1); LYMPHOCYTES ABSOLUTE AUTO 0.35 K/mm3 (0.84-5.20); LYMPHOCYTES PERCENT AUTO 3 % (21-46); MONOCYTES ABSOLUTE AUTO 1.13 K/mm3 (0.16-1.47); MONOCYTES PERCENT AUTO 11 % (4-13); Mean Corpuscular HGB 30.4 pg (26.0-34.0); Mean Corpuscular HGB Conc 31.5 g/dL (31.5-36.5); Mean Corpuscular Volume 97 fL (80-100); Mean Platelet Volume 9.4 fL (9.1-12.4); NEUTROPHILS ABSOLUTE AUTO 8.33 K/mm3 (1.96-9.15); NEUTROPHILS PERCENT AUTO 81 % (41-73); Platelet Count 516 K/mm3 (150-400); RDW Coefficient Variation 13.5 % (11.7-14.2); RDW Standard Deviation 47.8 fL (35.1-46.3); Red Blood Cell Count 2.89 M/mm3 (3.80-5.20); White Blood Cell Count 10.27 K/mm3 (4.00-11.30)
--- NOTE | 2022-04-19 11:07 | NUR ---
ASSUMED CARE REPORT FROM MANJULA BERRY AT 0700. PT UP IN CHAIR. A&OX 3. FOLLOWS COMMANDS. REQUESTING PAIN MEDS FOR RUELAS, BACK PAIN AND RIGHT FOOT PAIN. MEDICATED c SCHEDULED MEDS. LUNGS CLEAR. VSS. TELE D/C'D. ABD ROUND, SOFT, NON TENDER. PT ATE MOST OF BREAKFAST, LONG AND SHORT ACTING INSULIN GIVEN c CARB COUNT TO LEFT THIGH. PERMACATH TO RIGHT CHEST WALL, DRESSING C/D/I. ALMOND S[facility]TER [facility] LABS THIS AM. WOUNDS TO BILATERAL HEELS. SEE SKIN ASSESSMENT. DR FAIR ROUNDED, PLAN TO GIVE ANTIBIOTICS. REDRESSED PER WOUND RN INSTRUCTION POST DR FRANK ASSESSMENT. PT TOLERATED WELL. FLOATED HEELS ON EGG CRATE. WILL CONTINUE TO MONITOR.
--- NOTE | 2022-04-19 11:14 | NUR ---
Arrived at patients room number [id number] at approximately 1010am to withdraw two sample tubes of blood from her dialysis cathether for the lab. When I arrived to her room she was slummped over sleeping in her chair. I woker her up in order to access her dialysis cathether. While I was there she had a friend stop in for a visit. I withdrew the citrate lock from the cathether and flushed the lines. I then withdrew the two sample tubes and then locked her cathether ports with heparin, and placed new disinfecting caps on.
--- NOTE | 2022-04-19 18:24 | NUR ---
SHIFT SUMMARY NO ACUTE CHANGES THIS SHIFT. WOUND TO RLU REDRESSED PER WOUND RN ORDERS. PT C/O INTERMITTANT PAIN, ABLE TO MANAGE c SCHEDULED MEDS AND REPOSITIONING. PT REFUSES GETTING BACK TO BED. UP IN CHAIR ENTIRE SHIFT, ON EGG CRATE, HEELS FLOATED, REPOSITIONED q2. PT COMPLIANT c MEAL PLAN AND FLUID RESTRICTION. VSS. WILL CONTINUE TO MONITOR UNTIL REPORT TO ONCOMING NURSE.
--- NOTE | 2022-04-20 06:13 | NUR ---
PATIENT AOX4 AND FOLLOWS COMMANDS. SR WITH STABLE BP. ON 2L NC WHILE SLEEPING. NO URINE OUTPUT OVERNIGHT. LANTUS HELD OVERNIGHT DUE TO BG.
[2022-04-20 06:45] LABS: Hematocrit 26.8 % (33.0-51.0); Hemoglobin 8.5 g/dL (11.5-16.0)
--- NOTE | 2022-04-20 06:58 | NUR ---
DIALYSIS NOTE CLINIC RECEPTIONIST IN TO DRAW LABS FROM HD CATH AT REQUEST OF BEDSIDE RN AND LAB AND WITH APPROVAL FROM .
[2022-04-20 07:04] LABS: Magnesium, Blood 2.6 mg/dL (1.6-2.4)
[2022-04-20 07:16] LABS: Albumin, Blood 2.4 g/dL (3.4-5.0); Albumin/Globulin Ratio 0.6 (0.8-1.8); Bilirubin, Total 0.2 mg/dL (0.1-1.0); Bun/Creatinine Ratio 21.9 (12.0-20.0); C-Reactive Protein, High Sens. 46.3 mg/L (0.000-3.000); Calcium, Blood 8.6 mg/dL (8.5-10.1); Creatinine, Blood 3.2 mg/dL (0.40-1.00); Globulin, Blood 3.8 g/dL (2.2-4.0); Phosphorus, Blood 6.6 mg/dL (2.5-4.9); Total Protein, Blood 6.2 g/dL (6.4-8.2)
[2022-04-20 07:18] LABS: Potassium, Blood 5.4 mmol/L (3.5-5.5)
--- NOTE | 2022-04-20 18:37 | NUR ---
Shift Summary Pt alert, oriented x4; calm and cooperative with care. Pt increase sleepiness this afternoon/evening. Pt reports pain to ble, medicated with schedule medication. Pt sob with activity, spo2 >90% on 2l o2 via nc, placed on cpap while sleeping. Bp elevated, hr 60-70's. Dr Deng at bedside, no dialysis today, new orders for recheck k at 1400, orders entered. No other acute changes noted. Other vss. Will continue to monitor.
[2022-04-20 19:30] LABS: Bicarbonate Venous 26.9 mmol/L (24.0-30.0); PCO2 Venous 40.4 mmHg (38-42); pH Blood Venous 7.44 (7.34-7.37)
--- NOTE | 2022-04-20 20:41 | NUR ---
1999 ASSESSMENT ASSUMED CARE OF PT AT 1910. PT LETHARGIC, WITH BIPAP IN PLACE. DOES AROSE TO STERNAL RUB. DAY SHIFT RN HAD PREVIOUSLY ALERTED BOTH HOSPITALIST AND HAZARDOUS WASTE TECHNICIAN (DUE TO CONCERN FOR NEED FOR DIALYSIS). VBG OBTAINED AND CHEM BG CHECKED TO R/O HYPOGLYCEMIA , SEE CHART FOR RESULTS. ASSESSMENT COMPLETED AND CHARTED. VS WNL. ABOUT 2029 THIS RN IN TO SEE IF PT COULD BE WOKE UP ENOUGH FOR MEDICATIONS. PT AWAKENS EASILY. PT DID NEED TO BE REORIENTED TO TIME. SAT UP AND REPOSITIONED IN CHAIR. PT TAKES MEDS WITHOUT DIFFICULTY. CURRENTLY WORKING ON DINNER. NO ADDITIONAL NEEDS AT THIS TIME. WILL MEDICATE WITH CARB COUNT INSULIN AFTER PT COMPLETES MEAL. NO ADDITIONAL NEEDS AT THIS TIME. CALL LIGHT IN REACH.
--- NOTE | 2022-04-20 21:35 | NUR ---
INSULIN ADMINISTRATION/PLAN PT GIVEN DINNER CARB COUNT INSULIN LATE DUE TO EATING LATE AFTER SLEEPING THROUGH DINNER. PLAN TO RECHECK CHEM BG IN APPROXIMATELY 1 HOUR AND THEN WILL DO BEDTIME INSULIN ADMINISTRATION AT THAT TIME. PT PROVIDED WITH WARM WASH CLOTH FOR STYE TO R EYE. ADDITIONAL QUESTIONS ADDRESSED. NO ADDITIONAL NEEDS AT THIS TIME. CALL LIGHT IN REACH.
--- NOTE | 2022-04-21 06:29 | NUR ---
SHIFT SUMMARY PT WITH LETHARGY AT BEGINING OF SHIFT BUT THEN WOKE UP AROUND 2100 AND HAD DINNER. NO ACUTE ISSUES T/O SHIFT UNTIL 0600 CHEM BG CHECK WHERE PT WAS LOW. PT ABLE TO TOLERATE PO INTAKE. WILL RECHECK CHEM BG SHORTLY. NO ADDITIONAL NEEDS AT THIS TIME.
[2022-04-21 10:19] LABS: BASOPHILS ABSOLUTE AUTO 0.05 K/mm3 (0.00-0.23); BASOPHILS PERCENT AUTO 1 % (0-2); EOSINOPHILS ABSOLUTE AUTO 0.31 K/mm3 (0.00-0.68); EOSINOPHILS PERCENT AUTO 3 % (0-6); Hematocrit 24.2 % (33.0-51.0); Hemoglobin 7.7 g/dL (11.5-16.0); IMMATURE GRAN ABSOLUTE AUTO 0.04 K/mm3 (0.00-0.10); IMMATURE GRAN PERCENT AUTO 0 % (0-1); LYMPHOCYTES ABSOLUTE AUTO 0.51 K/mm3 (0.84-5.20); LYMPHOCYTES PERCENT AUTO 5 % (21-46); MONOCYTES ABSOLUTE AUTO 0.88 K/mm3 (0.16-1.47); MONOCYTES PERCENT AUTO 9 % (4-13); Mean Corpuscular HGB 30.6 pg (26.0-34.0); Mean Corpuscular HGB Conc 31.8 g/dL (31.5-36.5); Mean Corpuscular Volume 96 fL (80-100); Mean Platelet Volume 9.9 fL (9.1-12.4); NEUTROPHILS ABSOLUTE AUTO 8.44 K/mm3 (1.96-9.15); NEUTROPHILS PERCENT AUTO 83 % (41-73); Platelet Count 479 K/mm3 (150-400); RDW Coefficient Variation 13.6 % (11.7-14.2); RDW Standard Deviation 48.6 fL (35.1-46.3); Red Blood Cell Count 2.52 M/mm3 (3.80-5.20); White Blood Cell Count 10.23 K/mm3 (4.00-11.30)
[2022-04-21 10:54] LABS: Albumin, Blood 2.3 g/dL (3.4-5.0); Anion Gap 9 mmol/L (6-16); Blood Urea Nitrogen 88 mg/dL (8-24); Bun/Creatinine Ratio 21.6 (12.0-20.0); CO2, Blood 25 mmol/L (21-32); Calcium, Blood 8.8 mg/dL (8.5-10.1); Chloride, Blood 100 mmol/L (98-108); Creatinine, Blood 4.08 mg/dL (0.40-1.00); Glomerular Filtration Rate 13 (60-); Glucose, Blood 68 mg/dL (70-99); Phosphorus, Blood 7.7 mg/dL (2.5-4.9); Potassium, Blood 5.3 mmol/L (3.5-5.5); Sodium, Blood 134 mmol/L (136-145)
--- NOTE | 2022-04-21 16:57 | NUR ---
WOUND CARE BLE WOUND CARE PER ORDERS. BLE WOUNDS ARE SHOWING IMPROVEMENT. PT ENCOURAGED TO CONTINUE OFFLOADING
--- NOTE | 2022-04-22 06:25 | NUR ---
SHIFT SUMMARY A/OX3. ENCOURAGED PT TO TX TO BED T/O THE NIGHT, CONTINUES TO REFUSE AND BECOMES TEARFUL WHEN DISCUSSING. SPO2 >92% ON HS CPAP. BLE ELEVATED. VSS, NO ACUTE CHANGES AT THIS TIME. BED IN LOWEST POSITION WITH CALL LIGHT IN REACH. WILL CONTINUE TO MONITOR AND REPORT TO ONCOMING RN.
[2022-04-22 07:32] LABS: Hematocrit 26.3 % (33.0-51.0); Hemoglobin 8.3 g/dL (11.5-16.0)
[2022-04-22 07:52] LABS: Albumin, Blood 2.1 g/dL (3.4-5.0); Anion Gap 10 mmol/L (6-16); Blood Urea Nitrogen 59 mg/dL (8-24); Bun/Creatinine Ratio 19.9 (12.0-20.0); CO2, Blood 29 mmol/L (21-32); Calcium, Blood 8.6 mg/dL (8.5-10.1); Chloride, Blood 94 mmol/L (98-108); Creatinine, Blood 2.97 mg/dL (0.40-1.00); Glomerular Filtration Rate 19 (60-); Glucose, Blood 247 mg/dL (70-99); Phosphorus, Blood 5.3 mg/dL (2.5-4.9); Potassium, Blood 4.3 mmol/L (3.5-5.5); Sodium, Blood 133 mmol/L (136-145)
--- NOTE | 2022-04-22 13:34 | NUR ---
Spiritual Care visit. Pt. is sitting up in a recliner eating lunch when she welcomes my visit. Pt. has been admitted to the hospital for a long time, so rapport has been established and built for many months. Facilitate a conversation to project what life could look like upon discharge from the hospital if the pt. was healthy enough. Considered dreams and fond memories. Pt. displayed evidence of good memory and recall from previous visits. Pt. displayed evidence of getting tired after eating lunch. Pt. requested this installation and repair technician to return.
--- NOTE | 2022-04-22 17:07 | NUR ---
SHIFT SUMMARY PT A/O X4. HR 60-70'S, NOT CURRENTLY ON TELE. SPO2 >92% ON 2L NC. PT SPENT MAJORITY OF SHIFT IN CHAIR. SHE DID TRANSFER TO BED FOR A BED BATH TODAY. SHE WAS ADAMANT ABOUT BEING TRANSFERRED BACK TO CHAIR AFTER. PT APPEARED FATIGUED T/O SHIFT AND DID NOT WORK WITH PHYSICAL THERAPY TODAY DUE TO THIS. PT FAMILY VISITED THIS AFTERNOON AND ATTEMPTED TO BRING IN OUTSIDE FOOD. FAMILY WAS ASKED TO EAT OUTSIDE OF THE ROOM AND WAS REMINDED THAT NOTHING CAN BE BROUGHT IN. PT BLE WERE ELEVATED T/O SHIFT. SHE WAS REPOSITIONED Q2H. WILL CONTINUE TO CARE FOR PT AND REPORT TO ONCOMING RN.
--- NOTE | 2022-04-23 05:55 | NUR ---
SHIFT SUMMARY A/OX3, ANXIOUS AND TEARFUL AT TIMES. SPO2 >92% COMPLIANT WITH CPAP T/O NIGHT. UP IN CHAIR AT BEGINNING OF SHIFT, LIFT TX TO BED. DRESSING TO R. FOOT C/D/I. BILATERAL HEEL PROTECTORS PLACED. BED IN LOWEST POSITION WITH CALL LIGHT IN REACH. WILL CONTINUE TO MONITOR AND REPORT TO ONCOMING RN.
[2022-04-23 09:58] LABS: Hematocrit 24.6 % (33.0-51.0); Hemoglobin 7.9 g/dL (11.5-16.0)
[2022-04-23 10:35] LABS: Albumin, Blood 2.2 g/dL (3.4-5.0); Anion Gap 11 mmol/L (6-16); Blood Urea Nitrogen 82 mg/dL (8-24); Bun/Creatinine Ratio 21.6 (12.0-20.0); CO2, Blood 23 mmol/L (21-32); Calcium, Blood 8.8 mg/dL (8.5-10.1); Chloride, Blood 96 mmol/L (98-108); Creatinine, Blood 3.79 mg/dL (0.40-1.00); Glomerular Filtration Rate 14 (60-); Glucose, Blood 232 mg/dL (70-99); Magnesium, Blood 2.4 mg/dL (1.6-2.4); Phosphorus, Blood 6.4 mg/dL (2.5-4.9); Sodium, Blood 130 mmol/L (136-145)
--- NOTE | 2022-04-23 16:25 | NUR ---
WOUND CARE BLE WOUND CARE PER ORDER. R HEEL IS IMPROVED. EDUCATION ON OFFLOADING REINFORCED. WC RN OUT 04/25. PRIMARY RN TO CHANGE DRESSING
--- NOTE | 2022-04-23 17:53 | NUR ---
SHIFT SUMMARY NO ACUTE CHANGES THIS SHIFT. PT A&OX3, VSS. C/O OF PAIN, MEDICATED PER EMAR. DIALYSIS IN ROOM TODAY. WORKED W/ PT THIS AFTERNOON. XRAY IN ROOM TO XRAY L FOOT, SEE MAY. DAUGHTERS CURRENTLY IN ROOM, PT UP IN CHAIR. REPOSITIONED Q2H. CALL LIGHT IN REACH.
--- NOTE | 2022-04-24 05:33 | NUR ---
NO ISSUES OVENIGHT, PT IN BED FROM APPROX 2300 UNTIL AM, ADHERING TO FR OF 1500, FSBS MONITORED AND NOTHING OF NOTE, METHADONE PRN X'S 1
[2022-04-24 07:03] LABS: Hematocrit 24.1 % (33.0-51.0); Hemoglobin 7.9 g/dL (11.5-16.0)
[2022-04-24 07:20] LABS: Anion Gap 8 mmol/L (6-16); Blood Urea Nitrogen 49 mg/dL (8-24); Bun/Creatinine Ratio 18.3 (12.0-20.0); CO2, Blood 28 mmol/L (21-32); Calcium, Blood 8.7 mg/dL (8.5-10.1); Chloride, Blood 95 mmol/L (98-108); Creatinine, Blood 2.68 mg/dL (0.40-1.00); Glomerular Filtration Rate 22 (60-); Glucose, Blood 321 mg/dL (70-99); Magnesium, Blood 2.2 mg/dL (1.6-2.4); Phosphorus, Blood 4.7 mg/dL (2.5-4.9); Potassium, Blood 4.3 mmol/L (3.5-5.5); Sodium, Blood 131 mmol/L (136-145)
--- NOTE | 2022-04-24 11:22 | NUR ---
HEMODIALYSIS NURSE ARRIVED TO PATIENTS ROOM PCU AT APPROXIMATELY 0630 AM ON 04/24/22 TO WITHDRAW LABS FROM HD CVC. PT WAS UP IN CHAIR AT BEDSIDE WATCHING TV AND RESTING. PT CVC DRESSING AND LINES WERE CLEAN, DRY, AND INTACT. NO SIGNS OF REDNESS, SWELLING OR DRAINAGE AT CVC SITE. REMOVED OLD CVC WRAP AND WITHDREW CITRATES FROM LINES, FLUSHED, THEN COLLECTED THE LAB SAMPLES. I FLUSHED AND LOCKED THE CVC LINES WITH 3ML HEPARIN FILLED SYRINGE, AND PLACED NEW CVC DISINFECTING CAPS ON ENDS AND WRAPPED WITH COBAN TO PREVENT ACCIDENTAL USE OR CONTAMINATION.
--- NOTE | 2022-04-25 04:41 | NUR ---
SHIFT SUMMARY NO ACUTE CHANGES THIS SHIFT. VSS. AXO TO BASELINE. BLOOD SUGAR STABLE. STRICT NO SNACK RULE IN PLACE. 1 INCONTINENT VOID THIS SHIFT. MOVED TO BED TO SLEEP. PT REFUSING CPAP TONIGHT. OTHERWISE, PT RESTING OFF AND ON. BED ALRM ON. HEELS LIFTED IN AIR.
[2022-04-25 08:30] LABS: BASOPHILS ABSOLUTE AUTO 0.06 K/mm3 (0.00-0.23); BASOPHILS PERCENT AUTO 1 % (0-2); EOSINOPHILS ABSOLUTE AUTO 0.37 K/mm3 (0.00-0.68); EOSINOPHILS PERCENT AUTO 4 % (0-6); Hemoglobin 7.8 g/dL (11.5-16.0); IMMATURE GRAN ABSOLUTE AUTO 0.39 K/mm3 (0.00-0.10); IMMATURE GRAN PERCENT AUTO 4 % (0-1); LYMPHOCYTES PERCENT AUTO 7 % (21-46); MONOCYTES ABSOLUTE AUTO 1.08 K/mm3 (0.16-1.47); MONOCYTES PERCENT AUTO 12 % (4-13); Mean Corpuscular HGB 30.1 pg (26.0-34.0); Mean Corpuscular HGB Conc 32.5 g/dL (31.5-36.5); Mean Corpuscular Volume 93 fL (80-100); Mean Platelet Volume 9.2 fL (9.1-12.4); NEUTROPHILS ABSOLUTE AUTO 6.59 K/mm3 (1.96-9.15); NEUTROPHILS PERCENT AUTO 72 % (41-73); Platelet Count 489 K/mm3 (150-400); RDW Coefficient Variation 13.2 % (11.7-14.2); RDW Standard Deviation 44.9 fL (35.1-46.3); Red Blood Cell Count 2.59 M/mm3 (3.80-5.20); White Blood Cell Count 9.09 K/mm3 (4.00-11.30)
[2022-04-25 08:47] LABS: Anion Gap 8 mmol/L (6-16); Blood Urea Nitrogen 68 mg/dL (8-24); Bun/Creatinine Ratio 19.6 (12.0-20.0); CO2, Blood 26 mmol/L (21-32); Calcium, Blood 8.5 mg/dL (8.5-10.1); Chloride, Blood 97 mmol/L (98-108); Creatinine, Blood 3.47 mg/dL (0.40-1.00); Glomerular Filtration Rate 16 (60-); Glucose, Blood 293 mg/dL (70-99); Magnesium, Blood 2.3 mg/dL (1.6-2.4); Phosphorus, Blood 5.4 mg/dL (2.5-4.9); Potassium, Blood 4.8 mmol/L (3.5-5.5); Sodium, Blood 131 mmol/L (136-145)
--- NOTE | 2022-04-25 16:37 | NUR ---
Spiritual Care Visit. Pt. is sitting up in a recliner and welcomes my visit. Pt. is pleasant. Pt. is unsettled by her lengthy hospitalization and verbalized a desire to talk to someone about the prospects of discharge. Listen with empathy and Re-established rapport. Pt. displays evidence of being very trusting and engaging with wiliam certified surgical assistant. This certified surgical assistant will remain available.
--- NOTE | 2022-04-25 17:16 | NUR ---
CARE ASSUMPTION/SHIFT SUMMARY THIS RN ASSUMED CARE AT 0700. VSS. NO TELE. PATIENT IS ALERT AND ORIENTED X4. PATIENT REPORTS PAIN IN BACK AND LEGS AND RECEIVED PAIN MEDS PER EMAR. PATIENT REPROTS NO SHORTNESS OF BREATH OR CHEST PAIN/PRESSURE. SEE SHIFT ASSESSMENT FOR FURTHER DETIALS. PATIENT RECEIVED DIALYSIS TODAY. PATIENT HAS SAT IN CHAIR MOST OF THE DAY WITH REPOSITIONING AND RANGE OF MOTION. PATIENT USES CALL LIGHT TO MAKE NEEDS KNOWN. PATIENT HAD A BED BATH TODAY. NO ACUTE CHANGES THIS SHIFT. CALL LIGHT WITHIN REACH. PLAN OF CARE IS UP TO DATE.
--- NOTE | 2022-04-25 23:54 | NUR ---
CBG 376, PER EMAR 5U SHORT ACTING INSULIN TO BE GIVEN, WILL RECHECK CBG Q2. ON ALL PROVIDER NOTIFIED, NO NEW ORDERS AT THIS TIME.
--- NOTE | 2022-04-26 05:28 | NUR ---
SHIFT SUMMARY A/OX3, USE OF LIFT FOR TRANSFERS TO BED/CHAIR. CBG AT BEDTIME 325, PT STATED SHE HAD JUST FINISED EATING DINNER 20 MINS PRIOR. PROCESSING TALC AND BORATE SUPERVISOR PROVIDER NOTIFIED, SEE PREVIOUS NOTES. SPO2 >92%, COMPLIANT WITH CPAP. CURRENTLY SLEEPING IN BED. VSS, NO ACUTE CHANGES AT THIS TIME. BED IN LOWEST POSITION WITH CALL LIGHT IN REACH. WILL CONTINUE TO MONITOR AND REPORT TO ONCOMING RN.
[2022-04-26 07:37] LABS: BASOPHILS ABSOLUTE AUTO 0.05 K/mm3 (0.00-0.23); BASOPHILS PERCENT AUTO 1 % (0-2); EOSINOPHILS ABSOLUTE AUTO 0.34 K/mm3 (0.00-0.68); EOSINOPHILS PERCENT AUTO 3 % (0-6); IMMATURE GRAN ABSOLUTE AUTO 0.26 K/mm3 (0.00-0.10); IMMATURE GRAN PERCENT AUTO 3 % (0-1); LYMPHOCYTES ABSOLUTE AUTO 0.58 K/mm3 (0.84-5.20); LYMPHOCYTES PERCENT AUTO 6 % (21-46); MONOCYTES ABSOLUTE AUTO 1.29 K/mm3 (0.16-1.47); MONOCYTES PERCENT AUTO 13 % (4-13); Mean Corpuscular HGB 29.7 pg (26.0-34.0); Mean Corpuscular Volume 93 fL (80-100); Mean Platelet Volume 9.2 fL (9.1-12.4); NEUTROPHILS PERCENT AUTO 75 % (41-73); Platelet Count 495 K/mm3 (150-400); RDW Coefficient Variation 13.3 % (11.7-14.2); RDW Standard Deviation 45.3 fL (35.1-46.3); Red Blood Cell Count 2.69 M/mm3 (3.80-5.20); White Blood Cell Count 10.02 K/mm3 (4.00-11.30)
[2022-04-26 07:45] LABS: Albumin, Blood 2.2 g/dL (3.4-5.0); Anion Gap 12 mmol/L (6-16); Blood Urea Nitrogen 49 mg/dL (8-24); Bun/Creatinine Ratio 19.1 (12.0-20.0); CO2, Blood 26 mmol/L (21-32); Calcium, Blood 8.5 mg/dL (8.5-10.1); Chloride, Blood 94 mmol/L (98-108); Creatinine, Blood 2.57 mg/dL (0.40-1.00); Glomerular Filtration Rate 23 (60-); Glucose, Blood 370 mg/dL (70-99); Magnesium, Blood 2.2 mg/dL (1.6-2.4); Phosphorus, Blood 4.4 mg/dL (2.5-4.9); Potassium, Blood 4.2 mmol/L (3.5-5.5); Sodium, Blood 132 mmol/L (136-145)
--- NOTE | 2022-04-26 10:02 | NUR ---
CARE ASSUMPTION THIS RN ASSUMED CARE AT 0700. VSS. PATIENT IS ALERT AND ORIENTED X4. PATIENT REPROTS GENERAL PAIN, AND PAIN IN HER FEET. PAIN MED PER EMAR AND REPOSITIONED. PATIENT REPORTS NO SHORTNESS OF BREATH. PATIENT REPROTS NO CHEST PAIN/PRESSURE. PATIENT HAS DRESSING OVER RIGHT HEEL AND OTR OWNER OPERATOR PROVIDES CARE. PATIENT HAS A PRESSURE ULCER OPEN TO AIR ON LEFT HEEL. REDDNESS TO GROIN. ALL AREAS HAVE BEEN CLEAN AND CREAM AND POWDER APPLIED. ABD IS NONTENDER. SEE SHIFT ASSESSMENT FOR FURTHER DETIALS. PATIENT IS ABLE TO MAKE NEEDS KNOWN AND USES CALL LIGHT APPROPRIATELY. PLAN OF CARE IS UP TO DATE. PATIENT SITTING IN BEDSIDE CHAIR WITH ALL LIGHT WITHIN REACH.
--- NOTE | 2022-04-26 17:31 | NUR ---
SHIFT SUMMARY PATIENT NEURO REMAINS UNCHANGED THIS SHIFT. VSS. NO TELE. PATIENT RECEIVED A BED BATH THIS SHIFT. ADLS PERFORMED BY PATIENT AFTER STAFF SET UP FOR THE PATIENT. NO ACUTE CHANGES THIS SHIFT. CALL LIGHT WITHIN REACH AND PATIENT SITTING IN CHAIR. PLAN OF CARE UP TO DATE.
--- NOTE | 2022-04-27 05:59 | NUR ---
SHIFT SUMMARY ASSUMED CARE OF PT AT 1900. PT IS A/OX4 BUT FORGETFUL OR WORDS AT TIMES. LUNG SOUNDS CLEAR, PT WORE CPAP T/O THE NIGHT. HEART SOUNDS REGULAR. PT C/O BACK AND JAW PAIN, MEDICATED PER EMAR AND HEAT PACK USED ON CHEEK. PT WOUND ON R FPPT IS C/D/I. PT WAS IN BED AND SLEPT T/O THE NIGHT.
[2022-04-27 09:24] LABS: Hematocrit 25.8 % (33.0-51.0); Hemoglobin 8.5 g/dL (11.5-16.0)
[2022-04-27 09:46] LABS: Albumin, Blood 2.4 g/dL (3.4-5.0); Anion Gap 7 mmol/L (6-16); Blood Urea Nitrogen 68 mg/dL (8-24); Bun/Creatinine Ratio 19.8 (12.0-20.0); CO2, Blood 27 mmol/L (21-32); Calcium, Blood 9.1 mg/dL (8.5-10.1); Chloride, Blood 99 mmol/L (98-108); Creatinine, Blood 3.44 mg/dL (0.40-1.00); Glomerular Filtration Rate 16 (60-); Glucose, Blood 288 mg/dL (70-99); Magnesium, Blood 2.5 mg/dL (1.6-2.4); Phosphorus, Blood 5.6 mg/dL (2.5-4.9); Potassium, Blood 4.7 mmol/L (3.5-5.5); Sodium, Blood 133 mmol/L (136-145)
--- NOTE | 2022-04-27 18:01 | NUR ---
NO ACUTE CHANGE SINCE THE TRANSFER OF CARE, REPORT RECEIVED FROM LUCHO BERRY AT APPROX 1600. PT HAS BEEN CALLING APPROPRIATELY. VITALS STABLE. TOLERATING PO. WILL REPORT TO OCNOMING SHIFT
--- NOTE | 2022-04-28 06:38 | NUR ---
SHIFT SUMMARY A/OX3, LIFT FOR TRANSFERS. INCONT, ATTENDS IN PLACE. PT HAD 1 XXL FORMED BM THIS SHIFT. PERMACATH TO RCW. DRESSING TO R. HEEL C/D/I. VSS, NO ACUTE CHANGES AT THIS TIME. BED IN LOWEST POSITION WITH CALL LIGHT IN REACH. WILL CONTINUE TO MONITOR AND REPORT TO ONCOMING RN.
[2022-04-28 08:15] LABS: Hematocrit 25.3 % (33.0-51.0); Hemoglobin 8.1 g/dL (11.5-16.0)
[2022-04-28 08:32] LABS: Albumin, Blood 2.2 g/dL (3.4-5.0); Anion Gap 11 mmol/L (6-16); Blood Urea Nitrogen 43 mg/dL (8-24); Bun/Creatinine Ratio 17.8 (12.0-20.0); CO2, Blood 31 mmol/L (21-32); Calcium, Blood 8.6 mg/dL (8.5-10.1); Chloride, Blood 95 mmol/L (98-108); Creatinine, Blood 2.42 mg/dL (0.40-1.00); Glomerular Filtration Rate 24 (60-); Glucose, Blood 231 mg/dL (70-99); Magnesium, Blood 2.5 mg/dL (1.6-2.4); Phosphorus, Blood 4.1 mg/dL (2.5-4.9); Potassium, Blood 4.3 mmol/L (3.5-5.5); Sodium, Blood 137 mmol/L (136-145)
--- NOTE | 2022-04-28 16:11 | NUR ---
WOUND CARE WOUND CARE PER ORDER. NEW PHOTO AND ASSESSMENT IN HARD CHART. PT TOLERATED WELL
--- NOTE | 2022-04-28 17:55 | NUR ---
PT SUMMARY: NO ACUTE CHANGE FOR THE SHIFT. PT RECEIVED ONE TIME DOSE OF 5MG METHADONE THIS AM PER PT'S REQUESTS FOR BACK AND FOOT PAIN AND WAS EFFECTIVE. BED BATH COMPLETED. NO DIALYSIS TODAY. LABS WERE DRAWN VIA DIALYSIS PORT BY DEVELOPMENT LEAD. WOUND CARE DONE BY CATHODE WASHER, RIGHT HEEL DRESSING IN PLACE CDI. PT ALERT AND ORIENTED, ABLE TO MAKE NEEDS KNOWN, FORGETFUL AT TIMES. CBG CONTROLELD PER INSULIN COVERAGE. VITALS STABLE, AFERBILE. NO TELE. WILL REPORT TO ONCOMING RN
--- NOTE | 2022-04-29 05:52 | NUR ---
SHIFT SUMMARY PATIENT ALERT AND ORIENTED X3-4. MEDICATED PER EMAR FOR PAIN. HAD NO COMPLAINTS OF CHEST PAIN OR SHORTNESS OF BREATH. VITAL SIGNS STABLE. BLOOD SUGAR STABLE. PATIENT SLEPT WELL, WEARING HER CPAP OVERNIGHT. NO ACUTE ISSUES NOTED OVERNIGHT. CALL LIGHT WITHIN REACH.
[2022-04-29 10:03] LABS: Hematocrit 25.9 % (33.0-51.0)
[2022-04-29 10:26] LABS: Albumin, Blood 2.2 g/dL (3.4-5.0); Anion Gap 9 mmol/L (6-16); Blood Urea Nitrogen 56 mg/dL (8-24); Bun/Creatinine Ratio 16.6 (12.0-20.0); CO2, Blood 29 mmol/L (21-32); Calcium, Blood 8.6 mg/dL (8.5-10.1); Chloride, Blood 97 mmol/L (98-108); Creatinine, Blood 3.37 mg/dL (0.40-1.00); Glomerular Filtration Rate 16 (60-); Glucose, Blood 275 mg/dL (70-99); Magnesium, Blood 2.4 mg/dL (1.6-2.4); Phosphorus, Blood 5.3 mg/dL (2.5-4.9); Potassium, Blood 4.7 mmol/L (3.5-5.5); Sodium, Blood 135 mmol/L (136-145)
--- NOTE | 2022-04-29 17:10 | NUR ---
Shift Summary No acute changes noted t/o shift. Pt right foot dressing slipped off, replaced. Pt has dislysis this am. Vss. Will continue to monitor.
--- NOTE | 2022-04-30 07:13 | NUR ---
SHIFT SUMMARY PT AOX3, DROWSY LATER IN SHIFT, APPEARED TO SLEEP SOUNDLY, SPO2 MAINTAINED >97% ON 2 L O2 VIA NC. TURNED THROUGHOUT NIGHT WITH PILLOWS, FEET KEPT ELEVATED. NO ACUTE CHANGES.
[2022-04-30 14:00] LABS: Hematocrit 27.7 % (33.0-51.0); Hemoglobin 8.7 g/dL (11.5-16.0)
[2022-04-30 14:20] LABS: Magnesium, Blood 2.5 mg/dL (1.6-2.4)
[2022-04-30 14:21] LABS: Albumin, Blood 2.4 g/dL (3.4-5.0); Anion Gap 10 mmol/L (6-16); Blood Urea Nitrogen 50 mg/dL (8-24); Bun/Creatinine Ratio 15.7 (12.0-20.0); CO2, Blood 27 mmol/L (21-32); Calcium, Blood 8.9 mg/dL (8.5-10.1); Chloride, Blood 95 mmol/L (98-108); Creatinine, Blood 3.18 mg/dL (0.40-1.00); Glomerular Filtration Rate 18 (60-); Glucose, Blood 244 mg/dL (70-99); Phosphorus, Blood 5.2 mg/dL (2.5-4.9); Potassium, Blood 4.9 mmol/L (3.5-5.5); Sodium, Blood 132 mmol/L (136-145)
--- NOTE | 2022-04-30 19:00 | NUR ---
Shift Summary No acute changes noted. Pt continues to report discomfort to ears. Vss. Will continue to monitor unitl report given to oncoming.
--- NOTE | 2022-05-01 05:45 | NUR ---
SHIFT SUMMARY PT LETHARGIC AT START OF SHIFT GRADUALLY AWAKENS IN CHAIR THIS RN IS IN AND OUT OF ROOM WITH MEDS/VS/ASSESSING. PT REQUESTED MORE METHADONE FOR PAIN, THIS RN WAITED TO OBSERVE EFFECT OF GABAPENTIN WITH PT LETHARGY, PT STAYED AWAKE AND WAS RESPONDING, SAT UP AND ATE HER SALAD FOLLOWING DOSE OF METHADONE REQUESTED FOR PAIN. SLEPT FOR SEVERAL HOURS AND THEN WAS AWOKEN WHEN THIS RN AND SAVAGE BLACKMANA TO BEDSIDE FOR REPOSITIONING AND TO CHANGE ATTENDS. PT REQUESTING MORE ICE AND WATER DESPITE TEACHING OF FLUID RESTRICTION ON NOC SHIFT OF 500 MLS. PT DID NOT FINISH SUPPLEMENT DRINK W/5-6 OZ OF FLUID, DUMPED AND PT GIVEN SMALL AMOUNT OF ICE WATER REQUESTED. PT WORE CPAP FOR SEVERAL HOURS THIS AM WHILE ASLEEP, SATS >96%. TOLERATED WELL, REQUESTED IT BE TAKEN OFF AND SWITCHED BACK TO CANNULA THIS AM. BREATHING APPEARS EVEN AND UNLABORED. PT CURRENTLY APPEARS TO SLEEP.
--- NOTE | 2022-05-01 10:22 | NUR ---
CARE ASSUMPTION THIS RN ASSUMED CARE AT 0700. VSS. NO TELE. PATIENT IS ALERT AND ORIENTED X3-4. PATIENT RIGHT STYE ON EYE IS HEALING AND MEDICATED CREAM PER EMAR ORDER. PATIENT REPROTS PAIN IN FEET THAT IS CONSTANT AND PAIN RANGE THIS AM WAS FROM 4-7. PAIN MED PER EMAR. PATIENT REPORTS NO SHORTNESS OF BREATH. SPO2 >95% ON 2L NC. PATIENT REPORTS NO CHEST PAIN/PRESSURE. EDEMA IN LWOER EXTREMITIES +2. PATIENT ABD IS ACTIVE NONTENDER. PATIENT SKIN HAS RED AREA TO GROIN AND BOTTOM. Q2 REPOSITONING. PATIENT HAS DRESSING TO RIGHT HEEL AND APPRENTICE PLANT ATTENDANT COMES IN TO CHANGE BANDAGES. SEE SHIFT ASSESSMENT FOR FURTHER DETIALS. PATIENT TO DIALYSIS THIS AM. PLAN OF CARE IS UP TO DATE.
--- NOTE | 2022-05-01 15:52 | NUR ---
SHIFT SUMMARY PATIENT NEURO REMAINS INTACT. VITAL SIGNS REMAIN STABLE. NO ACUTE CHANGES THIS SHIFT. PATIENT HAD A SHOWER AND WAS ABLE TO ASSIST. CALL LIGTH WITHIN REACH AND PATIENT SITTING IN BEDSIDE CHAIR.
--- NOTE | 2022-05-01 22:56 | NUR ---
PT UPDATE PT MOVED FROM CHAIR TO BED, PT STATES NEED TO URINATE, OFFERED [place], DECLINES, URINATES IN ATTENDS, LARGE AMOUNT OF URINE IN ATTENDS, GRAYISH-YELLOWISH AND CLOUDY IN COLOR. PT STATES SOME BURNING EARLIER TODAY WITH URINATION.
[2022-05-01 23:41] LABS: Source, Urine Straight Cath
[2022-05-02 00:01] LABS: Appearance, Urine Turbid (Clear); Bilirubin, Urine Neg (Neg); Blood, Urine 4+ (Neg); Glucose Qualitative, Urine Neg (Neg); Ketones, Urine Neg (Neg); Leukocyte Esterase, Urine 3+ (Neg); Nitrite, Urine Neg (Neg); Protein, Urine 3+ (Neg); Urobilinogen, Urine NORM (Normal); pH, Urine 6.5 (5.0-8.0)
[2022-05-02 00:33] LABS: Color, Urine Pale Yellow (P-Yellow)
[2022-05-02 00:55] LABS: Bacteria Mod /hpf; Red Blood Cells, Urine 0-2 /hpf (0-2); Squamous Epithelial Cells Rare /hpf (Few); White Blood Cells, Urine TNTC /hpf (0-5)
--- NOTE | 2022-05-02 07:03 | NUR ---
SHIFT SUMMARY PT AOX3, SPO2 DECREASED TO 80% WHEN ON CPAP EARLY THIS AM, SWITCHED BACK TO NC AT 2-3 L AND NO FURTHER EPISODES OF LOW O2. PT CBG WAS LOW THROUGHOUT SHIFT UNTIL THIS AM. LONG ACTING HELD LAST NIGHT D/T LOWER CBGS. CBG OVER 200 THIS AM, COVERED PER SCALE. CONCERN FOR PT HAVING UTI FOLLOWING 8 OZ OF [place] URINE OUT INTO ATTENDS. STRAIGHT CATH URINE SAMPLE COLLECTED AND SENT TO LAB. PT AFEBRILE T/O SHIFT.
[2022-05-02 07:45] LABS: Hematocrit 25.4 % (33.0-51.0); Hemoglobin 7.9 g/dL (11.5-16.0)
[2022-05-02 07:53] LABS: Magnesium, Blood 2.8 mg/dL (1.6-2.4)
[2022-05-02 07:54] LABS: Albumin, Blood 2.3 g/dL (3.4-5.0); Anion Gap 7 mmol/L (6-16); Blood Urea Nitrogen 55 mg/dL (8-24); Bun/Creatinine Ratio 17.7 (12.0-20.0); CO2, Blood 32 mmol/L (21-32); Calcium, Blood 8.8 mg/dL (8.5-10.1); Chloride, Blood 97 mmol/L (98-108); Creatinine, Blood 3.11 mg/dL (0.40-1.00); Glomerular Filtration Rate 18 (60-); Glucose, Blood 278 mg/dL (70-99); Phosphorus, Blood 5.3 mg/dL (2.5-4.9); Sodium, Blood 136 mmol/L (136-145)
--- NOTE | 2022-05-02 09:48 | NUR ---
CARE ASSUMPTION THIS RN ASSUMED CARE AT 0700. VSS. SPO2 >90% ON 2L NC -RA. PATIENT IS ALERT AND ORIENTED X3-4, FORGETFUL AT TIMES. PATIENT REPORTS NO CHEST PAIN/PRESSURE BP STABLE. PATIENT REPROTS NO SHORTNESS OF BREATH. PATIENT REPORTS PAIN IN HEELS AND FEET AND RATED AT 7. PAIN MED PER EMAR. PATIENT HAS REDDNESS TO FOLDS, SKIN TEAR IN RIGHT FOLD, PRESSURE SORES ON HEELS. PHOTOS IN CHART. PATIENT ABD IS FIRM NONTENDER, AND PATIENT STATED FEELING LIKE SHE MAY HAVE A BOWEL MOVEMENT SOON AND WOULD CALL IF SHE NEEDED TO USE THE BEDPAN. PATIENT UPDATED ON PLAN OF CARE. MD IN ROOM TO SEE PATIEN THIS AM. PATIENT IS SITTING IN CHAIR. PLAN OF CARE IS UP TO DATE. CALL LIGHT WITHIN REACH.
--- NOTE | 2022-05-02 16:57 | NUR ---
SHIFT SUMMARY PATIENT NEURO REMAINS INTACT. PATIENT USES CALL LIGHT APPROPRIATELY. NO ACUTE CHANGES THIS SHIFT. CALL LIGHT WITHIN REACH.
--- NOTE | 2022-05-02 18:15 | NUR ---
Spiritual Care Visit. Pt. is sitting up and eating her dinner. Pt. wwelcomes my visit and rapport is quickly re-established. Pt. has been admitted for a very long time. Pt. displayed evidence of being tired, and verbalized it might be from dialysis. Listen with empathy and calming presence. 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 Nurse Valerie came and was helping Pt. manage her "food count." Pryaed with Pt. Pt. verbalized gratitude for the spiritual care visit.
--- NOTE | 2022-05-03 06:10 | NUR ---
SHIFT SUMMARY PATIENT ALERT AND ORIENTED X3-4. OCCASIONALLY FORGETFUL. MEDICATED PER EMAR FOR PAIN. HAD NO COMPLAINTS OF CHEST PAIN OR SHORTNESS OF BREATH. PATIENT SLEPT IN HER RECLINER ALL NIGHT AND DECLINED WEARING HER CPAP, BUT WORE 2 LITERS OF OXYGEN VIA NASAL CANULA. O2 SAT REMAINED >95%. VITAL SIGNS AND BLOOD SUGAR STABLE. NO ACUTE ISSUES NOTED OVERNIGHT. WILL CONTINUE TO MONITOR. CALL LIGHT WITHIN REACH.
--- NOTE | 2022-05-03 07:30 | NUR ---
ASSUMED CARE PT ALERT AND ORIENTED THIS AM. UP IN BEDSIDE CHAIR AFTER BED BATHT THIS AM. PT. REPORTS PAIN 9/10 TO LEGS AND BACK, WILL MED FOR PAIN PER EMAR THIS AM. PT. PROVIDED WITH BREAKFAST TRAY, BG CHECKED. PT. ON 2LNC WHEN ASLEEP HOWEVER ROOM AIR WHILE AWAKE. LS CLEAR T/O. PT. TO HAVE DIALYSIS TODAY. DR. CASTANEDA IN TO ASSESS. VSS AT THIS TIME. CALL LIGHT IN REACH.
--- NOTE | 2022-05-03 09:00 | NUR ---
PT TO DIALYSIS AT THIS TIME
--- NOTE | 2022-05-03 12:44 | NUR ---
PT BACK FROM DIALYSIS, REMAINS UP IN BEDSIDE CHAIR. LUNCH TRAY PROVIDED. INSULIN TO ADMIN PER CARB COUNT. PT. VSS.
--- NOTE | 2022-05-03 18:22 | NUR ---
SHIFT SUMMARY PT. REMAINS ALERT AND ORIENTED T/O SHIFT. UP IN BEDSIDE RECLINER. PT HAD DIALYSIS TODAY. MED FOR PAIN PER EMAR. PT. VSS. REPORT TO ONCOMING RN.
[2022-05-03 19:50] LABS: Hematocrit 28.1 % (33.0-51.0)
[2022-05-03 20:00] LABS: Magnesium, Blood 2.5 mg/dL (1.6-2.4)
[2022-05-03 20:01] LABS: Albumin, Blood 2.5 g/dL (3.4-5.0); Anion Gap 5 mmol/L (6-16); Blood Urea Nitrogen 46 mg/dL (8-24); Bun/Creatinine Ratio 18.2 (12.0-20.0); CO2, Blood 31 mmol/L (21-32); Calcium, Blood 8.9 mg/dL (8.5-10.1); Chloride, Blood 99 mmol/L (98-108); Creatinine, Blood 2.53 mg/dL (0.40-1.00); Glomerular Filtration Rate 23 (60-); Glucose, Blood 97 mg/dL (70-99); Phosphorus, Blood 4.6 mg/dL (2.5-4.9); Potassium, Blood 4.4 mmol/L (3.5-5.5); Sodium, Blood 135 mmol/L (136-145)
--- NOTE | 2022-05-04 06:08 | NUR ---
SHIFT SUMMARY PATIENT ALERT AND ORIENTED X3-4. MEDICATED PER EMAR FOR PAIN. HAD NO COMPLAINTS OF CHEST PAIN OR SHORTNESS OF BREATH. PATIENT WORE CPAP ALL NIGHT AND SLEPT IN HER RECLINER. VITAL SIGNS STABLE. NO ACUTE ISSUES NOTED OVERNIGHT. WILL CONTINUE TO MONITOR. CALL LIGHT WITHIN REACH.
[2022-05-04 07:08] LABS: Hematocrit 25.6 % (33.0-51.0); Hemoglobin 8.2 g/dL (11.5-16.0)
[2022-05-04 07:23] LABS: Albumin, Blood 2.4 g/dL (3.4-5.0); Anion Gap 7 mmol/L (6-16); Blood Urea Nitrogen 55 mg/dL (8-24); CO2, Blood 30 mmol/L (21-32); Chloride, Blood 98 mmol/L (98-108); Glomerular Filtration Rate 20 (60-); Glucose, Blood 229 mg/dL (70-99); Magnesium, Blood 2.6 mg/dL (1.6-2.4); Phosphorus, Blood 5.4 mg/dL (2.5-4.9); Sodium, Blood 135 mmol/L (136-145)
--- NOTE | 2022-05-04 17:44 | NUR ---
SHIFT SUMMARY PT REMAINS ALERT AND ORIENTED. VS STABLE. PT ON 2L NC NEEDED TODAY TO KEEP SATS >90%. PT UP TO CHAIR MOST OF SHIFT AND REPOSITIONED Q2H. PT COMPLAINS OF PAIN ON AND OFF TO LEFT HEEL AND LOWER BACK. PT MEDICATED FOR PAIN. NO BM REPORTED FOR 7 DAYS. PT PROVIDED WARM PRUNE JUICE AND STOOL SOFTENER. PT TO HAVE SUPPOSITORY PER EMAR AFTER DINNER. PT PROVIDED BED BATH TODAY. WILL CONTINUE TO MONITOR AND REPORT TO ONCOMING RN
--- NOTE | 2022-05-05 06:19 | NUR ---
SHIFT SUMMARY PATIENT ALERT AND ORIENTED X3. MEDICATED PER EMAR FOR PAIN. NO COMPLAINTS OF SHORTNESS OF BREATH. PATIENT SLEPT IN BED ON CPAP OVERNIGHT. VITAL SIGNS STABLE. NO ACUTE ISSUES NOTED. WILL CONTINUE TO MONITOR. CALL LIGHT WITHIN REACH.
--- NOTE | 2022-05-05 09:24 | NUR ---
UPDATE PT TAKEN DOWN TO DIALYSIS FOR TREATMENT. WILL AWAIT RETURN
[2022-05-05 09:37] LABS: Hematocrit 25.3 % (33.0-51.0); Hemoglobin 7.9 g/dL (11.5-16.0)
[2022-05-05 10:15] LABS: Magnesium, Blood 2.8 mg/dL (1.6-2.4)
[2022-05-05 10:16] LABS: Albumin, Blood 2.3 g/dL (3.4-5.0); Anion Gap 13 mmol/L (6-16); Blood Urea Nitrogen 76 mg/dL (8-24); Bun/Creatinine Ratio 20.9 (12.0-20.0); CO2, Blood 26 mmol/L (21-32); Calcium, Blood 8.6 mg/dL (8.5-10.1); Chloride, Blood 95 mmol/L (98-108); Creatinine, Blood 3.64 mg/dL (0.40-1.00); Glomerular Filtration Rate 15 (60-); Glucose, Blood 269 mg/dL (70-99); Phosphorus, Blood 5.9 mg/dL (2.5-4.9); Potassium, Blood 4.8 mmol/L (3.5-5.5); Sodium, Blood 134 mmol/L (136-145)
--- NOTE | 2022-05-05 13:00 | NUR ---
UPDATE PT RETURNED FROM DIALYSIS. VS STABLE. PT EATING LUNCH. WILL CONTINUE TO MONITOR
--- NOTE | 2022-05-05 15:44 | NUR ---
WOUND CARE DC HYDROFERA BLUE TO R HEEL. PAINT BL HEELS DAILY WITH BETADINE, LOTA. FLOAT HEELS
--- NOTE | 2022-05-05 17:10 | NUR ---
SHIFT SUMMARY PT REMAINS ALERT AND ORIENTED. BP STABLE. PT ON AND OFF 2L NC NEEDED. PT HAD BED BATH TODAY. PT REPOSITIONED Q2H AND UP TO RECLINER MOST OF SHIFT. NO OTHER ACUTE CHANGES NOTED. WILL CONTINUE TO MONITOR AND REPORT TO ONCOMING RN
--- NOTE | 2022-05-05 19:30 | NUR ---
PATIENT SITTING IN RECLINER CHAIR WATCHING TV. SLIGHTLY FORGETFUL, BUT REDIRECTABLE. PATIENT REQUESTING ICE CHIPS AND KEEPING HER SALAD FROM DINNER FOR A SNACK LATER TONIGHT. PERMACATH FOR HEMODIALYSIS IN PLACE TO RIGHT CHEST WITH DRESSING CD&I
--- NOTE | 2022-05-06 06:51 | NUR ---
SUMMARY PATIENT SLEEPING ONLY 2 HRS IN BED WITH BIPAP IN PLACE. USING LIFT TO TRANSFER BETWEEN BED AND CHAIR. PATIENT CONTINUES TO BE FORGETFUL AT TIMES, QUICK TO ANGER AT TIMES. PLAN TO HAVE DIALYSIS NURSE DRAW LABS LATER THIS MORNING
[2022-05-06 07:51] LABS: Hematocrit 24.8 % (33.0-51.0); Hemoglobin 7.7 g/dL (11.5-16.0)
[2022-05-06 08:24] LABS: Albumin, Blood 2.4 g/dL (3.4-5.0); Anion Gap 8 mmol/L (6-16); Blood Urea Nitrogen 56 mg/dL (8-24); Bun/Creatinine Ratio 19.8 (12.0-20.0); CO2, Blood 30 mmol/L (21-32); Calcium, Blood 8.5 mg/dL (8.5-10.1); Chloride, Blood 99 mmol/L (98-108); Creatinine, Blood 2.83 mg/dL (0.40-1.00); Glomerular Filtration Rate 20 (60-); Glucose, Blood 251 mg/dL (70-99); Magnesium, Blood 2.6 mg/dL (1.6-2.4); Phosphorus, Blood 4.7 mg/dL (2.5-4.9); Potassium, Blood 4.6 mmol/L (3.5-5.5); Sodium, Blood 137 mmol/L (136-145)
--- NOTE | 2022-05-06 09:53 | NUR ---
This morning Janis was c/o "having a hard time breathing". Unable to specify beyond this. She was wearing 3 l/min n.c. O2 delivery when I first came into the room. Spo2 while in the chair, on 3 l/min was 98%. She was not tachypneic, and had no use of accessory muscles. Vital signs were normal. SpO2 checked on room air, and it was 94%, still at rest. Auscultated lung rao anterior and posterior; these noted to be without adventitious sounds, and not diminished, either. While eating breakfast, she was not wearing the oxygen and c/o difficulty breathing. Spo2 checked and found to be 77-80%. Oxygen applied, and increased finally to 3 L to get Spo2 93%. No coughing, no tachypnea, and no use of accessory muscles noted. LUng rao auscultated clear. After eating while on the oxygen her spo2 improved to 96%. She was instructed on use of incentive spirometer and demonstrated its use. Recommended that she use it 10 x/hour throughout her waking hours. she did not appear to have any difficulty with this; She states worried that she will get a pneumonia, and is showing motivation to use the Incentive spirometer. OT here now to work with the patient.
--- NOTE | 2022-05-06 13:19 | NUR ---
pt is very sleepy. Did not eat her lunch. Reclined in the chair while she is napping. O2 on at 3 l/min.
--- NOTE | 2022-05-06 14:20 | NUR ---
Janis is still sleeping in the recliner. Spo2 98-99% on 2 l/min O2 n.c. delivery.
--- NOTE | 2022-05-06 14:37 | NUR ---
BILATERAL HEEL WOUND CARE DONE ORDERED WITH BETADINE. LEFT OPEN TO AIR. PT TOLERATED EXCELLENTLY.
--- NOTE | 2022-05-06 18:36 | NUR ---
Janis is still sitting up in the chair, after finishing her breakfast.
--- NOTE | 2022-05-07 04:07 | NUR ---
SHIFT SUMMARY: NO ACUTE CHANGES OVERNIGHT. PT REMAINS ALERT AND ORIENTED X3, ABLE TO FOLLOW COMMANDS AND MAKE NEEDS KNOWN. BP AND HR STABLE. AFEBRILE. SATS >96% ON 2L NC. PT WORE CPAP MAJORITY OF THE NIGHT, TOLERATED WELL. CBG 351 AT 0000, INSULIN PROVIDED PER EMAR, RECHECK 280. PT TRANSFERRED FROM CHAIR TO BED VIA LIFT, SLEPT MAJORITY OF THE NIGHT. PLAN FOR DIALYSIS IN AM. WILL CONTINUE TO MONITOR AND REPORT TO ONCOMING RN.
--- NOTE | 2022-05-07 08:29 | NUR ---
Pt is awoken with repeated verbal stimulation. She is now awake, alert and oriented. she is eager to have breakfast. MOrning medications were given and pt was transferred with the ceiling lift to her chair. Dr. Lata Miller here to see the patient. Pt denies any difficulty breathing while on 2 l/min O2 delivery this morning. SpO2 98% and respirations are even, unlabored and without accessory muscle use. She is eating breakfast. Transferred in the chair to dialysis at this time.
[2022-05-07 09:05] LABS: Hematocrit 26.8 % (33.0-51.0); Hemoglobin 8.5 g/dL (11.5-16.0)
[2022-05-07 09:31] LABS: Albumin, Blood 2.5 g/dL (3.4-5.0); Anion Gap 9 mmol/L (6-16); Blood Urea Nitrogen 74 mg/dL (8-24); Bun/Creatinine Ratio 20.1 (12.0-20.0); CO2, Blood 28 mmol/L (21-32); Calcium, Blood 8.8 mg/dL (8.5-10.1); Chloride, Blood 99 mmol/L (98-108); Creatinine, Blood 3.68 mg/dL (0.40-1.00); Glomerular Filtration Rate 15 (60-); Glucose, Blood 281 mg/dL (70-99); Magnesium, Blood 2.9 mg/dL (1.6-2.4); Phosphorus, Blood 5.6 mg/dL (2.5-4.9); Potassium, Blood 5.1 mmol/L (3.5-5.5); Sodium, Blood 136 mmol/L (136-145)
--- NOTE | 2022-05-07 12:48 | NUR ---
Pt is alert, oriented, and not at all drowsy.
--- NOTE | 2022-05-07 12:48 | NUR ---
Pt is getting ready to eat her lunch. Yesterday she c/o nausea after taking her antibiotic, so it will be given after she has eaten.
--- NOTE | 2022-05-07 12:51 | NUR ---
Heels painted with betadine, and floated so that there is no pressure on them at all.
--- NOTE | 2022-05-08 05:47 | NUR ---
SHIFT SUMMARY PATIENT ALERT AND ORIENTED X3-4. MEDICATED PER EMAR FOR PAIN. VITAL SIGNS AND BLOOD SUGAR STABLE. PATIENT IS FORGETFUL AT TIMES AND HAS DIFFICULTY UNDERSTANDING WHEN THINGS ARE EXPLAINED TO HER. PATIENT CONTINUES TO BE WEAK AND REQUIRING A LIFT FOR TRANSFERS. PATIENT'S LUNGS DIMINISHED IN THE BASES, STAYED ON HER 2 LITERS NASAL CANULA OVERNIGHT. PATIENT REPORTS THAT SHE HAS BEEN HAVING SOME DIFFICULTY BREATHING AND THAT SHE "FEELS LIKE I AM GETTING PNEUMONIA AGAIN". PATIENT DENIES ANY CP/PRESSURE. NO ACUTE ISSUES NOTED OVERNIGHT. WILL CONTINUE TO MONITOR. CALL LIGHT WITHIN REACH.
[2022-05-08 09:25] LABS: Hematocrit 27.9 % (33.0-51.0); Hemoglobin 8.7 g/dL (11.5-16.0)
[2022-05-08 09:47] LABS: Albumin, Blood 2.4 g/dL (3.4-5.0); Anion Gap 10 mmol/L (6-16); Blood Urea Nitrogen 53 mg/dL (8-24); Bun/Creatinine Ratio 17.2 (12.0-20.0); CO2, Blood 28 mmol/L (21-32); Calcium, Blood 8.6 mg/dL (8.5-10.1); Chloride, Blood 98 mmol/L (98-108); Creatinine, Blood 3.08 mg/dL (0.40-1.00); Glomerular Filtration Rate 18 (60-); Glucose, Blood 223 mg/dL (70-99); Magnesium, Blood 2.6 mg/dL (1.6-2.4); Phosphorus, Blood 5.3 mg/dL (2.5-4.9); Potassium, Blood 4.5 mmol/L (3.5-5.5); Sodium, Blood 136 mmol/L (136-145)
--- NOTE | 2022-05-08 12:29 | NUR ---
Pt has been alert and oriented, not lethargic today and yesterday after getting only 2.5 mg methadone in the am and pm. On Thursday she received 5 mg in the morning and was unable to keep awake during meals and care.
--- NOTE | 2022-05-08 15:12 | NUR ---
Pt is sitting up in her small chair. Powder applied to groin folds at her request.
--- NOTE | 2022-05-09 06:39 | NUR ---
SHIFT SUMMARY PATIENT ALERT AND ORIENTED X3. MEDICATED PER EMAR FOR PAIN. PATIENT STARTED CRYING AND STATED THAT SHE COULDN'T BREATHE ONCE SHE WAS PUT INTO BED. SHE DOES NOT CURRENTLY HAVE THIS COMPLAINT. LUNG SOUNDS DIMINISHED IN THE BASES. SPO2 >95% ON 2 LITERS O2. NO ACUTE ISSUES NOTED OVERNIGHT. WILL CONTINUE TO MONITOR. CALL LIGHT WITHIN REACH.
[2022-05-09 09:25] LABS: Hematocrit 27.8 % (33.0-51.0); Hemoglobin 9.1 g/dL (11.5-16.0)
[2022-05-09 09:45] LABS: Albumin, Blood 2.5 g/dL (3.4-5.0); Anion Gap 15 mmol/L (6-16); Blood Urea Nitrogen 65 mg/dL (8-24); Bun/Creatinine Ratio 16.5 (12.0-20.0); CO2, Blood 25 mmol/L (21-32); Calcium, Blood 8.6 mg/dL (8.5-10.1); Chloride, Blood 96 mmol/L (98-108); Creatinine, Blood 3.94 mg/dL (0.40-1.00); Glomerular Filtration Rate 14 (60-); Glucose, Blood 277 mg/dL (70-99); Magnesium, Blood 2.9 mg/dL (1.6-2.4); Phosphorus, Blood 6.1 mg/dL (2.5-4.9); Potassium, Blood 4.9 mmol/L (3.5-5.5); Sodium, Blood 136 mmol/L (136-145)
--- NOTE | 2022-05-10 06:00 | NUR ---
PATIENT [id number], ON 2L NC WITH SATS ABOVE 95%. LUNG SOUNDS DIMINISHED AT BASES. MEDICATED PER EMAR FOR PAIN. PATIENT POSITION CHANGED PER PROTOCOL. NO ACUTE EVENTS OVERNIGHT, WILL CONTINUE TO MONITOR. CALL LIGHT WITHIN REACH.
[2022-05-10 07:56] LABS: Hematocrit 25.9 % (33.0-51.0); Hemoglobin 8.2 g/dL (11.5-16.0)
[2022-05-10 08:10] LABS: Albumin, Blood 2.3 g/dL (3.4-5.0); Anion Gap 7 mmol/L (6-16); Blood Urea Nitrogen 48 mg/dL (8-24); Bun/Creatinine Ratio 15.4 (12.0-20.0); CO2, Blood 30 mmol/L (21-32); Calcium, Blood 8.4 mg/dL (8.5-10.1); Chloride, Blood 99 mmol/L (98-108); Creatinine, Blood 3.11 mg/dL (0.40-1.00); Glomerular Filtration Rate 18 (60-); Glucose, Blood 240 mg/dL (70-99); Magnesium, Blood 2.9 mg/dL (1.6-2.4); Phosphorus, Blood 5.2 mg/dL (2.5-4.9); Potassium, Blood 4.7 mmol/L (3.5-5.5); Sodium, Blood 136 mmol/L (136-145)
--- NOTE | 2022-05-10 16:19 | NUR ---
SHIFT SUMMARY NO ACUTE CHANGES THIS SHIFT. VSS ON 2L O2 VIA NC. PATIENT UP TO CHAIR FOR MAJORITY OF SHIFT. PATIENT C/O PAIN THROUGHOUT SHIFT, REQUESTS "A FULL DOSE" OF METHADONE IN AM'S, MD AWARE THIS AM AND UNWILLING TO CHANGE DOSE AT THIS TIME D/T PREVIOUS ATTEMPTS OF THE 5MG METHADONE AND PATIENT NOT RESPONDING WELL TO IT. PATIENT UPSET AND TEARFUL OVER THIS, FREQUENTLY BRINGS IT UP T/O SHIFT. CBG'S IN THE 200'S, INSULIN PER EMAR. EATING & DRINKING WELL. CALL LIGHT IN REACH. WILL CONTINUE TO MONITOR & REPORT TO ONCOMNG RN AT 1900.
--- NOTE | 2022-05-11 05:06 | NUR ---
SHIFT SUMMARY PT DROWSY THIS SHIFT, COOPERATIVE WITH CARE, Q2 TURN, Q6 CBG, 2L NC ON CPAP WHEN ASLEEP AND SP02 >90%. PT'S ONLY COMPLAINT WAS PAIN AND SHE WAS MEDICATED PER EMAR. NO ACUTE CHANGES, BED IN LOW, CALL LIGHT IN REACH, AND I WILL CONTINUE TO MONITOR UNTIL SHIFT REPORT IS GIVEN TO THE ONCOMING SHIFT RN. SEE NOTES FOR ANY UPDATES.
[2022-05-11 09:23] LABS: Hematocrit 27.7 % (33.0-51.0); Hemoglobin 8.7 g/dL (11.5-16.0)
[2022-05-11 09:40] LABS: Albumin, Blood 2.3 g/dL (3.4-5.0); Anion Gap 6 mmol/L (6-16); Blood Urea Nitrogen 57 mg/dL (8-24); Bun/Creatinine Ratio 16.6 (12.0-20.0); CO2, Blood 26 mmol/L (21-32); Chloride, Blood 104 mmol/L (98-108); Creatinine, Blood 3.43 mg/dL (0.40-1.00); Glomerular Filtration Rate 16 (60-); Glucose, Blood 281 mg/dL (70-99); Phosphorus, Blood 6.2 mg/dL (2.5-4.9); Potassium, Blood 4.8 mmol/L (3.5-5.5); Sodium, Blood 136 mmol/L (136-145)
--- NOTE | 2022-05-11 18:41 | NUR ---
SHIFT SUMMARY MOVED TO THE CHAIR JUST AFTER SHIFT CHANGE THIS MORNING, PT TOOK MEDS PER EMAR, NO ADDITIONAL NEEDS REPORTED OR REQUIRED THIS SHIFT, PT HAD DIALYSIS TODAY IN HER ROOM AND WAS MILDLY HYPOTENSIVE AFTERWARDS BUT NO SYMPTOMS AND MAP REMAINED > 65. NO ACUTE EVENTS THIS SHIFT, CALL LIGHT IN REACH, WILL CTM AND REPORT TO MARCOS WINSTON RN.
--- NOTE | 2022-05-12 04:46 | NUR ---
SHIFT SUMMARY NO ACUTE EVENTS OVERNIGHT. LIFT PT WHEN TRANSFERING TO BED. INCONTINENT, ATTENDS IN PLACE. EDUCATE PT REGARDING DIET RESTRICTIONS, PT SOMETIMES IS NOT COMPLIANT. REFUSE CPAP AT NIGHT. ENC USE OF CPAP, PT AGREED TO WEAR CPAP AT 0300 AM. REPORTS PAIN ON BLE. PAIN MANAGED WITH METHADONE AND TYLENOL. CBG ON 200'S. CALL LIGHT WITHIN REACH. WILL PROVIDE REPORT TO OCOMING NURSE.
[2022-05-12 08:23] LABS: Albumin, Blood 2.4 g/dL (3.4-5.0); Anion Gap 13 mmol/L (6-16); Blood Urea Nitrogen 38 mg/dL (8-24); CO2, Blood 27 mmol/L (21-32); Calcium, Blood 8.4 mg/dL (8.5-10.1); Chloride, Blood 97 mmol/L (98-108); Creatinine, Blood 2.72 mg/dL (0.40-1.00); Glomerular Filtration Rate 21 (60-); Glucose, Blood 299 mg/dL (70-99); Magnesium, Blood 2.9 mg/dL (1.6-2.4); Phosphorus, Blood 5.7 mg/dL (2.5-4.9); Potassium, Blood 4.8 mmol/L (3.5-5.5); Sodium, Blood 137 mmol/L (136-145)
[2022-05-12 08:43] LABS: Hematocrit 28.2 % (33.0-51.0); Hemoglobin 8.7 g/dL (11.5-16.0)
--- NOTE | 2022-05-12 17:30 | NUR ---
SHIFT SUMMARY NO ACUTE CHANGES THIS SHIFT, PT CONTINUES TO AWAIT PLACEMENT. PT UP TO THE CHAIR AND ABLE TO STAND WITH OCCUPATIONAL THERAPY. PT REMAINS ON A FLUID RESTRICTION AND IS NOT ALLOWED SNACKS IN ORDER TO CONTROL BLOOD GLUCOSE. PT CURRENTLY UP IN HER CHAIR AND EATING DINNER. VSS.
--- NOTE | 2022-05-13 00:50 | NUR ---
NOTIFIED DR. KELLEY OF BG OF 366. PER DR. KELLEY TREAT BG PER THE SS ORDER ( PATIENT RECEIVED 5UNITS), RECHECK AT 4AM AND NOTIFY HER IF BG REMAINS HIGH.
--- NOTE | 2022-05-13 04:19 | NUR ---
NOTIFIED DR. KELLEY OF REPEAT BG OF 333 PER ORDERS RECEIVED.
--- NOTE | 2022-05-13 07:10 | NUR ---
PATIENT A&O X4. CONTINUES TO COMPLAIN OF PAIN AND REQUESTING MORE METHADONE. REFUSED TO GO BACK TO BED, SLEPT IN CHAIR BUT DID ALLOW OFFLOAD. BG HIGH AT 366. ALLOWED CPAP FOR TWO HOURS.
--- NOTE | 2022-05-13 07:24 | NUR ---
ASSUMED CARE: PT SITTING UP IN CHAIR. CALL LIGHT IN REACH. NO ACUTE NEEDS OR CONCERNS AT THIS TIME.
--- NOTE | 2022-05-13 09:30 | NUR ---
PT TAKEN TO DIALYSIS VIA CHAIR BY STAFF
[2022-05-13 09:55] LABS: Hematocrit 27.3 % (33.0-51.0); Hemoglobin 8.6 g/dL (11.5-16.0)
[2022-05-13 10:24] LABS: Albumin, Blood 2.6 g/dL (3.4-5.0); Anion Gap 9 mmol/L (6-16); Blood Urea Nitrogen 56 mg/dL (8-24); Bun/Creatinine Ratio 14.5 (12.0-20.0); CO2, Blood 27 mmol/L (21-32); Calcium, Blood 8.8 mg/dL (8.5-10.1); Chloride, Blood 99 mmol/L (98-108); Creatinine, Blood 3.87 mg/dL (0.40-1.00); Glomerular Filtration Rate 14 (60-); Glucose, Blood 267 mg/dL (70-99); Magnesium, Blood 3.3 mg/dL (1.6-2.4); Phosphorus, Blood 6.7 mg/dL (2.5-4.9); Potassium, Blood 4.5 mmol/L (3.5-5.5); Sodium, Blood 135 mmol/L (136-145)
--- NOTE | 2022-05-13 13:24 | NUR ---
PT RETURNED FROM DIALYSIS, CRYING, STATING SHE HAS A LOT OF PAIN AND WANTS STAFF TO CALL DR TO INCREASE PAIN MEDS. THIS RN DISCUSSED THIS WITH DR Adele CASTANEDA THIS AM AND DR STATED THAT METHADONE WILL NOT BE INCREASED TODAY. RELAYED THIS TO PT DID MANAGER ONCOLOGY.
--- NOTE | 2022-05-13 17:45 | NUR ---
SHIFT SUMMARY: PT WENT TO DIALYSIS THIS SHIFT. SITTING UPRIGHT IN RECLINER T/O DAY. HAS REQUIRED FREQUENT REMINDING OF DIABETIC AND FLUID RESTRICTIONS. CONTINUES TO ASK FOR PAIN MANAGEMENT CHANGES WHICH DR Verenice CASTANEDA ADDRESSED THIS AM. FAMILY AT BEDSIDE AT THIS TIME. NO ACUTE NEEDS OR CONCERNS.
--- NOTE | 2022-05-14 05:57 | NUR ---
PATIENT IS AOX4, USES CALL LIGHT OFTEN. C/O GENERALIZED PAIN- PRN METHADONE GIVEN. PATIENT BG ELEVATED 367, 378, 300. MD AWARE. ONE TIME EXTRA DOSE LISPRO GIVEN. PATIENT NEEDS CONSTANT REMINDER OF STRICT I+O, DM POC. ONE LARGE BM. VSS.
--- NOTE | 2022-05-14 07:53 | NUR ---
0700 Bedside report from KRISTI bruner. States that the pt was taken off of CPAP at 0645 when she woke up, but was lethargic and spo2 dropping to low to mid 80s spo2, so she was just being put back on CPAP at 0700; spo2 improved right away to 96%. 0754 At this time, Janis appears to be sleeping very soundly, on the CPAP. She does not awaken spontaneously when I take her vital signs, nor when Irma the RT is ajusting her CPAP mask fit.
--- NOTE | 2022-05-14 08:57 | NUR ---
Pt is fully awake since being given her breakfast after ceiling lift assisted transfer from bed to chair. Dr. Jackson rounded on the pt at the time of transfer. at this time, pt was just taken to Dialysis.
[2022-05-14 09:52] LABS: Hematocrit 28.8 % (33.0-51.0); Hemoglobin 8.8 g/dL (11.5-16.0)
[2022-05-14 10:14] LABS: Albumin, Blood 2.7 g/dL (3.4-5.0); Anion Gap 7 mmol/L (6-16); Blood Urea Nitrogen 32 mg/dL (8-24); Bun/Creatinine Ratio 12.6 (12.0-20.0); CO2, Blood 29 mmol/L (21-32); Calcium, Blood 8.7 mg/dL (8.5-10.1); Chloride, Blood 102 mmol/L (98-108); Creatinine, Blood 2.54 mg/dL (0.40-1.00); Glomerular Filtration Rate 23 (60-); Glucose, Blood 184 mg/dL (70-99); Magnesium, Blood 2.8 mg/dL (1.6-2.4); Phosphorus, Blood 4.2 mg/dL (2.5-4.9); Potassium, Blood 4.1 mmol/L (3.5-5.5); Sodium, Blood 138 mmol/L (136-145)
--- NOTE | 2022-05-14 11:40 | NUR ---
Pt is in dialysis at this time.
--- NOTE | 2022-05-14 12:20 | NUR ---
Pt returned from dialysis, in chair. Vital signs takens. Set up for lunch. She is wide awake, no c/o pain nor discomfort, nor c/o difficulty breathing. She appears to be calm and comfortable, and is eager to eat lunch.
--- NOTE | 2022-05-14 14:17 | NUR ---
Spiritual Care Visit Pt. is sitting in a recliner and eating lunch when she welcomes my visit. Pt. is pleasant, and inquired about how this geophysical laboratory director's [id number] trip went. Re-established rapport and discussed famiily life. Pt. is unsettled about wanting to go home. Listen with empathy and a calming presence. Pt. displays evidenc of a good memory, but displays ocassional lapses. When given time, Pt. displays ability to re-focus. Prayed with Pt. Pt. verbalized gratitude for the spiritual care visit and requested this geophysical laboratory director to return.
--- NOTE | 2022-05-14 16:06 | NUR ---
CBG is 92. Janis is awake, sitting in her chair watching TV and eating salad and saltine crackers.
[2022-05-15 00:08] LABS: HBSAG SCREEN Negative (Negative)
--- NOTE | 2022-05-15 06:16 | NUR ---
PATIENT BACK IN BED AT 2200, AAOX4, HEELS ELEVATED OFF BED. PATIENT SLEPT WELL OVERNIGHT. CPAP PLACED AT NIGHT, SWITCHED BACK TO NC PER PATIENTS REQUEST, REMAINS ON 2LNC, WITH SATS ABOVE 92%. X1 LARGE SOFT STOOL, NO URINE OUTPUT. NO SAFETY CONCERNS AT THIS TIME.
--- NOTE | 2022-05-15 10:28 | NUR ---
Pt c/o of not feeling well. States that "I don't feel well. My ears are hurting, and my throat is hurting". She is sleeping in between care. Diaphoretic. CBG at this time 397, due for insulin carb coverage as she just finished eating. This was given. Afebrile with temporal temperature 97.4. Heart rate 91 bpm, Respirations 16/min and spo2 96% .Blood pressure 129/71 (87).
--- NOTE | 2022-05-15 21:52 | NUR ---
ASSUMPTION OF CARE THIS RN ASSUMED CARE OF PATIENT AT 1900. REPORT TAKEN FROM ALICIA BERRY. PATIENT WITH STABLE VITALS. ON 3L VIA NC. REPORTS LEG AND BACK PAIN; MEDICATED PER EMAR. ALERT AND ORIENTED. CALM AND COOPERATIVE WITH CARE AT THIS TIME. PATIENT CURRENTLY IN RECLINER WATCHING TV. FLUID RESTRICTION OF 500MLS FOR THIS SHIFT BEING FOLLOWED. PATIENT EDUCATED APPRORIATE FOR PLAN OF CARE. REPOSITIONING Q2HRS. BED IN LOWEST POSITION AND CALL LIGHT WITHIN REACH.
--- NOTE | 2022-05-16 04:56 | NUR ---
SHIFT SUMMARY NO ACUTE CHANGES DURING THIS SHIFT. VITALS STABLE. ON 2L VIA NC WHEN AWAKE. CPAP WORN FROM [id number] DURING THIS SHIFT WITH 2L O2 BLEED IN. MEDICATING PER EMAR. REPOSITIONING Q2HRS. PATIENT CALM AND COOPERATIVE WITH CARE DURING THIS SHIFT. ATTENDS IN PLACE. BARRIER CREAM ON COCCYX. POWDER TO FOLDS. PATIENT AT 500MLS OF FLUID PER RESTRICTION ORDER. BED IN LOWEST POSITION AND CALL LIGHT WITHIN REACH. THIS RN WILL CONTINUE TO MONITOR UNTIL SHIFT CHANGE AT 0700.
[2022-05-16 09:22] LABS: Hemoglobin 9.1 g/dL (11.5-16.0)
[2022-05-16 09:39] LABS: Albumin, Blood 2.6 g/dL (3.4-5.0); Anion Gap 8 mmol/L (6-16); Blood Urea Nitrogen 47 mg/dL (8-24); Bun/Creatinine Ratio 12.8 (12.0-20.0); CO2, Blood 29 mmol/L (21-32); Calcium, Blood 8.9 mg/dL (8.5-10.1); Chloride, Blood 101 mmol/L (98-108); Creatinine, Blood 3.67 mg/dL (0.40-1.00); Glomerular Filtration Rate 15 (60-); Glucose, Blood 193 mg/dL (70-99); Magnesium, Blood 3.3 mg/dL (1.6-2.4); Phosphorus, Blood 6.3 mg/dL (2.5-4.9); Potassium, Blood 4.9 mmol/L (3.5-5.5); Sodium, Blood 138 mmol/L (136-145)
--- NOTE | 2022-05-16 10:44 | NUR ---
AM NOTE: PATIENT ALERT AND ORIENTED X4. USING LIFT TO RECLINER THIS AM FOR DIALYSIS. ON 2L NASAL CANNULA SATING MID 90'S. LUNGS SOUNDING CLEAR. DENIES COUGH. BP STABLE. PPP. EDEMA NOTED TO BLE AND GENERALIZED. DR. CASTANEDA AND DR. JIMÉNEZ BY TO SEE PATIENT. PATIENT EDUCATED ON AM MEDS AND CARB COUNTING. FLUID RESTRICTION MAINTAINED. CURRENTLY AT DIALYSIS. COMPLAINS OF BLE PAIN. MEDICATED PER EMAR. WILL CONTINUE TO MONITOR.
--- NOTE | 2022-05-16 13:26 | NUR ---
Spiritual Care Visit. Pt. is sitting up in a recliner eating lunch and welcomes my visit. Pt. is pleasant and displays evidence of excitement about the prospects of being discharged to a care facility in [place]. Facilitate a life update and re-establish rapport. Prayed with Pt. Pt. verbalized gratitude for the spiritual care visit.
--- NOTE | 2022-05-16 17:40 | NUR ---
SHIFT SUMMARY: NO ACUTE CHANGES. SEE PREVIOUS NOTE. PATIENT REMAINS ON 2L NASAL CANNULA. BED BATH GIVEN TODAY. COMPLAINS OF INTERMITTENT PAIN TO BLE. BETADINE PAINTED ON HEELS. VITAL SIGNS REMAIN STABLE. CARB COUNTING AND INSULIN ADMINISTRATION REVIEWED WITH PATIENT. DIALYSIS TODAY. CALL LIGHT IN REACH. UP IN RECLINER AT THIS TIME. DENIES NEEDS.
--- NOTE | 2022-05-16 19:39 | NUR ---
ASSUMPTION OF CARE THIS RN ASSUMED CARE OF PATIENT AT 1900. REPORT TAKEN FROM ALEXSANDRA BERRY. PATIENT ALERT AND ORIENTED. VITALS STABLE. ON 2L VIA NC. UP IN RECLINER MIGEL. ABLE TO MAKE NEEDS KNOWN. PATIENT WITH VISITORS IN ROOM AT 1930; THIS RN INSTRUCTED VISITORS THAT VISITING HOURS ENDED AT 1900, VISITORS VERBALIZED UNDERSTANDING AND THAT THEY WOULD SAY THEIR GOODBYES; THIS RN WILL CONTINUE TO MONITOR. PATIENT BEING REPOSITIONED WITH PILLOWS IN CHAIR CURRENTLY. MEDICATING PER EMAR. CALL LIGHT WITHIN REACH.
--- NOTE | 2022-05-17 05:04 | NUR ---
SHIFT SUMMARY NO ACUTE CHANGES OVERNIGHT. NO CHANGES TO NEURO. VITALS STABLE. CONTINUES TO BE ON 2L VIA NC. ONLY WORE CPAP FOR 1 HOUR AND THEN REFUSED TO WEAR FOR THE REMAINDER OF THE SHIFT. MEDICATING PER EMAR FOR PAIN. HYPERACTIVE BOWEL SOUNDS NOTED WITH PATIENT STATING HER STOMACH WAS CRAMPING. NO BM DURING THIS SHIFT. REPOSITIONING Q2HRS. BARRIER CREAM AND POWDER APPLIED ON BUTTOCKS AND IN FOLDS. FLOATING HEELS. BED IN LOWEST POSITION AND CALL LIGHT WITHIN REACH. THIS RN WILL CONTINUE TO MONITOR UNTIL SHIFT CHANGE AT 0700.
--- NOTE | 2022-05-17 08:15 | NUR ---
received report from NOC RN. Patient is sleeping and awakens to verbal stimuli. Dr Deng by and will hold dialysis until Thursday. We used lift and sling, got her up to chair for breakfast. She is already requesting pain medication, but does not stay awake. NAJMA. She continues to have no IV access.
--- NOTE | 2022-05-17 10:04 | NUR ---
She is up in chair amd tolerated her PO meds. She received 18 units for 90GM carbs and 6 units Glargine. She ate 100% of breakfast. She states pain better after medicated. denies any current needs.
--- NOTE | 2022-05-17 12:00 | NUR ---
Patient continues to sit up in chair and ate her lunch independently. CBG was 70 prior to lunch and spoke with wire charger and will alter carb count and amount of insulin, no SS coverage needed. She has been resting off and on. Denies need fpor pain medication currently. Remains weak but [place]. She has been eating ice with her surgar free sprinkles that are flavored.
--- NOTE | 2022-05-17 18:42 | NUR ---
Patient continues to sit up in chair with 2L O2 via NC. She finished dinner about 90% and 240 liquids. When not eating she is consuming ice chips with sugar free crystal light.VSS, CBG 118. She has been very cooperative with care today. No significant changes all day and tolerates evening meds well.
[2022-05-17 19:04] LABS: Hematocrit 30.6 % (33.0-51.0); Hemoglobin 9.6 g/dL (11.5-16.0)
[2022-05-17 19:21] LABS: Albumin, Blood 2.8 g/dL (3.4-5.0); Anion Gap 5 mmol/L (6-16); Blood Urea Nitrogen 40 mg/dL (8-24); Bun/Creatinine Ratio 12.4 (12.0-20.0); CO2, Blood 29 mmol/L (21-32); Calcium, Blood 8.6 mg/dL (8.5-10.1); Chloride, Blood 103 mmol/L (98-108); Creatinine, Blood 3.22 mg/dL (0.40-1.00); Glomerular Filtration Rate 17 (60-); Glucose, Blood 109 mg/dL (70-99); Magnesium, Blood 3.1 mg/dL (1.6-2.4); Phosphorus, Blood 6.3 mg/dL (2.5-4.9); Sodium, Blood 137 mmol/L (136-145)
--- NOTE | 2022-05-18 03:11 | NUR ---
SHIFT SUMMARY NO ACUTE CHANGES OVERNIGHT. NO CHANGES TO NEURO. SEE ASSESSMENT. PATIENT WITH STABLE VITALS. CURRENTLY ON CPAP. 2L VIA NC USED WHILE AWAKE. CURRENTLY IN BED. HEELS BEING ELEVATED OFF OF BED. REPOSITIONING Q2HRS. BARRIER CREAM AND POWDER APPLIED. ATTENDS DRY. HOB ELEVATED. PATIENT CALLING APPROPRIATELY. BED IN LOWEST POSITION AND CALL LIGHT WITHIN REACH. THIS RN WILL REPORT TO MARCELLA BERRY WHO WILL ASSUME CARE OF PATIENT FOR THE REMAINDER OF NOC SHIFT.
--- NOTE | 2022-05-18 06:34 | NUR ---
SHIFT SUMMARY PATIENT ALERT AND ORIENTED X3. HAD NO COMPLAINTS OF PAIN OR SHORTNESS OF BREATH. PATIENT'S BLOOD SUGAR THIS MORNING WAS 48 UPON INITIAL CHECK, PATIENT WAS SWEATY AND REPORTED FEELING SHAKY. PATIENT GIVEN APPLE JUICE, CHEESE, AND CRACKERS, BLOOD SUGAR RECHECK WAS 89. PATIENT STATED SHE WAS FEELING BETTER. VITAL SIGNS OTHERWISE STABLE. WILL CONTINUE TO MONITOR. CALL LIGHT WITHIN REACH.
[2022-05-18 10:11] LABS: Hematocrit 32.7 % (33.0-51.0); Hemoglobin 10.1 g/dL (11.5-16.0)
[2022-05-18 10:19] LABS: Albumin, Blood 2.8 g/dL (3.4-5.0); Anion Gap 11 mmol/L (6-16); Blood Urea Nitrogen 49 mg/dL (8-24); CO2, Blood 26 mmol/L (21-32); Calcium, Blood 8.7 mg/dL (8.5-10.1); Chloride, Blood 101 mmol/L (98-108); Glomerular Filtration Rate 16 (60-); Glucose, Blood 236 mg/dL (70-99); Magnesium, Blood 2.8 mg/dL (1.6-2.4); Potassium, Blood 4.8 mmol/L (3.5-5.5); Sodium, Blood 138 mmol/L (136-145)
--- NOTE | 2022-05-18 11:09 | NUR ---
CARE ASSUMPTION SHORTLY AFTER CARE ASSUMPTION, PT C/O OF MILD SOB AND NOSTRILS "BURINING". HUMIDIFER PLACED ON O2 TO HELP MOISTEN. PT ONLY MAINTAINING LOW TO MID 80'S W/ O2 TURNED TO 7L. MD BERMUDEZ IN ROOM TO ASSESS. PT SCHEDULED FOR DIALYSIS THIS AM. LIFTED W/ LIFT FROM BED TO CHAIR AND TAKEN TO DIALYSIS THIS AM. DIALYSIS NURSE NOTIFIED OF SATURATIONS, PLANS FOR FLUID REMOVAL DURING DIALYSIS.
--- NOTE | 2022-05-18 18:55 | NUR ---
SHIFT SUMMARY NO ACUTE CHANGES SINCE PREVIOUS NOTE. PT A&OX4, SPO2>90% ON 5L NC. VSS. DIALYSIS STATES REMOVAL OF 5L OFF PT TODAY. PT C/O OF PAIN, WANTING INCREASE IN MEDICATION. MEDICATED PER EMAR. UP IN CHAIR MSOT OF DAY. REPOSITIONED Q2H. BED BATH GIVEN. NO BM THIS SHIFT. CALL LIGHT IN REACH.
--- NOTE | 2022-05-19 05:18 | NUR ---
SHIFT SUMMARY A/OX3, LIFT FOR TRANSFERS. INCONT, ATTENDS IN PLACE. PT HAD 1 XL FORMED BM THIS SHIFT. SPO2 >92% ON 2L NC. CURRENTLY SLEEPING IN BED WITH BILATERAL HEELS ELEVATED. PERMACATH TO RCW. VSS, NO ACUTE CHANGES AT THIS TIME. BED IN LOWEST POSITION WITH CALL LIGHT IN REACH. WILL CONTINUE TO MONITOR AND REPORT TO ONCOMING RN.
[2022-05-19 09:08] LABS: Hematocrit 31.4 % (33.0-51.0); Hemoglobin 9.8 g/dL (11.5-16.0)
[2022-05-19 09:30] LABS: Albumin, Blood 2.9 g/dL (3.4-5.0); Anion Gap 14 mmol/L (6-16); Blood Urea Nitrogen 46 mg/dL (8-24); Bun/Creatinine Ratio 16.1 (12.0-20.0); CO2, Blood 27 mmol/L (21-32); Calcium, Blood 8.9 mg/dL (8.5-10.1); Chloride, Blood 98 mmol/L (98-108); Creatinine, Blood 2.85 mg/dL (0.40-1.00); Glomerular Filtration Rate 20 (60-); Glucose, Blood 231 mg/dL (70-99); Magnesium, Blood 2.7 mg/dL (1.6-2.4); Phosphorus, Blood 6.1 mg/dL (2.5-4.9); Potassium, Blood 4.3 mmol/L (3.5-5.5); Sodium, Blood 139 mmol/L (136-145)
--- NOTE | 2022-05-19 16:59 | NUR ---
SHIFT SUMMARY PATIENT ALERT AND ORIENTED THROUGHOUT SHIFT. TOLERATING ADA/RENAL DIET AND ORAL LIQUIDS. 1500 ML FLUID RESTRICTION. DIALYSIS THIS AM, 4L FLUID REMOVED. UP TO RECLINER FOR MOST OF DAY. WALKED 3-4 STEPS WITH PHYSICAL THERAPY. PAIN IN BILAT FEET SEVERE. EXTRA ONE-TIME DOSE OF METHADONE ORDERED IN AFTERNOON. VS WITH HTN AND STABLE SPO2 ON 2L O2 VIA NC, CPAP AT NIGHT.
--- NOTE | 2022-05-20 05:00 | NUR ---
SHIFT SUMMARY A/OX3, LIFT FOR TRANSFERS. INCONT, ATTENDS IN PLACE. SPO2 >92% ON 2L NC. CURRENTLY SLEEPING IN THE CHAIR WITH BILATERAL HEELS ELEVATED. PERMACATH TO RCW. VSS, NO ACUTE CHANGES AT THIS TIME. BED IN LOWEST POSITION WITH CALL LIGHT IN REACH. WILL CONTINUE TO MONITOR AND REPORT TO ONCOMING RN.
--- NOTE | 2022-05-20 07:15 | NUR ---
DIALYSIS NOTE STATION DETECTIVE IN TO DRAW LABS FROM HD CATH AT REQUEST OF BEDSIDE RN AND LAB AND WITH APPROVAL FROM .
[2022-05-20 07:19] LABS: Hematocrit 29.5 % (33.0-51.0); Hemoglobin 9.1 g/dL (11.5-16.0)
[2022-05-20 07:31] LABS: Albumin, Blood 2.6 g/dL (3.4-5.0); Anion Gap 4 mmol/L (6-16); Blood Urea Nitrogen 36 mg/dL (8-24); Bun/Creatinine Ratio 12.6 (12.0-20.0); CO2, Blood 34 mmol/L (21-32); Calcium, Blood 8.7 mg/dL (8.5-10.1); Chloride, Blood 100 mmol/L (98-108); Creatinine, Blood 2.85 mg/dL (0.40-1.00); Glomerular Filtration Rate 20 (60-); Glucose, Blood 159 mg/dL (70-99); Magnesium, Blood 2.9 mg/dL (1.6-2.4); Phosphorus, Blood 6.2 mg/dL (2.5-4.9); Potassium, Blood 4.5 mmol/L (3.5-5.5); Sodium, Blood 138 mmol/L (136-145)
--- NOTE | 2022-05-20 12:01 | NUR ---
Spiritual Care Visit. Pt. is sitting up in her recliner and welcomes my visit. Pt. is a long-term resident, and rapport is quickly established. Pt. is unsettled about trying to establish an account for her to contact her by phone. Listen with empathy and sought to assist Pt. with the process. Facilitated more Life Story and review. Pt. displayed evidence of an uplifted mood and verbalized her hope for a transfer to a care facility some time very soon. Pt. verbalized gratitude for the spiritual care visit.
--- NOTE | 2022-05-20 17:28 | NUR ---
SHIFT SUMMARY PATIENT ALERT AND ORIENTED. NO DIALYSIS TODAY. TOLERATING DIET. WORKED WELL WITH PHYSICAL THERAPY. UP IN RECLINER FOR MOST OF DAY. DOSE OF METHADONE INCREASED TO 5MG BID. VSS.
--- NOTE | 2022-05-20 21:00 | NUR ---
ASSUMPTION OF CARE THIS RN ASSUMED CARE OF PATIENT AT 1900. REPORT TAKEN FROM LESLEY BERRY. PATIENT IN RECLINER CURRENTLY. CALLING APPROPRIATELY. CALM AND COOPERATIVE WITH CARE. VITALS STABLE. ON 2L VIA NC. PATIENT REFUSING CPAP AT THIS TIME DESPITE FALLING ASLEEP IN CHAIR. THIS RN WILL CONTINUE TO ENCOURAGE PATIENT TO WEAR CPAP WHILE ASLEEP. HEELS FLOATED. ATTENDS DRY. CALL LIGHT WITHIN REACH.
--- NOTE | 2022-05-21 05:06 | NUR ---
SHIFT SUMMARY NO ACUTE CHANGES DURING THIS SHIFT. ALERT AND ORIENTED FULLY. NO CHANGES TO NEURO. PATIENT WORE THE CPAP FOR THE MAJORITY OF THIS SHIFT AND CONTINUES TO WEAR IT CURRENTLY. VITALS STABLE. PATIENT CURRENTLY IN BED. MEDICATING PER EMAR. POWDER AND CREAM TO FOLDS AND COCCYX. REPOSITIONING Q2HRS. HEELS FLOATED SO THEY ARE NOT TOUCHING THE BED. BED IN LOWEST POSITION AND CALL LIGHT WITHIN REACH. THIS RN WILL CONTINUE TO MONITOR UNTIL SHIFT CHANGE AT 0700.
--- NOTE | 2022-05-21 14:22 | NUR ---
CARE NOTE POWDER AND BARRIER CREAM APPLIED TO CHEEK FOLDS AND ALY AREA, ATTENDS WERE DRY. BETADINE PAINTED ON BILATERAL HEELS AND ARE OPEN TO AIR PER EMAR ORDERS. CALL LIGHT IS IN REACH.
--- NOTE | 2022-05-21 16:44 | NUR ---
SHIFT SUMMARY PT IS ALERT AND ORIENTED X 4. VSS, SPO2 MAINTAINED >95% VIA 2L NC. SHE HAS DENIED FEELINGS OF CHEST PAIN/PRESSURE, SOB AND NAUSEA. SHE HAS REPORTED PAIN IN BACK AND BILAT LEGS, REPOSITIONING PROVIDED FOR COMFORT AND TO PREVENT SKIN BREAKDOWN, ALSO SEE EMAR FOR PAIN MANAGEMENT. PT WENT TO DIALYSIS THIS AM. SHE WAS UP TO RECLINER CHAIR FOR SHIFT AND WORKED W/ OCCUPATIONAL THERAPY IN OTHER CHAIR AND TRANSFERED A LIFT. BILAT HEELS PAINTED W/ BETADINE PER EMAR ORDER AND HAVE BEEN FLOATED DURING SHIFT. BARRIER CREAM AND POWDER APPLIED TO ALY AREA AND CHEEK FOLDS. DIALYSIS CATHETER IS IN PLACE AND COVERED W/ GAUZE DRESSING, DRESSING IS INTACT. SEE EMAR FOR PAIN MANAGEMENT. PT NOW APPEARS TO BE WATCHING TV. CALL LIGHT IS IN REACH, WILL CONTINUE TO MONITOR UNITL REPORT GIVEN.
--- NOTE | 2022-05-21 21:39 | NUR ---
ASSUMPTION OF CARE THIS RN ASSUMED CARE OF PATIENT AT 1900. REPORT TAKEN FROM MAKAYLA BERRY. VITALS STABLE AT THIS TIME. ON 2L VIA NC. IN RECLINER WITH HEELS ELEVATED. PATIENT CALLING APPROPRIATELY. ALERT AND ORIENTED FULLY. MEDICATING PER EMAR. PATIENT RECEIVED AN AFTER HOURS VISITOR WHO WAS AN ADOLESCENT BOY. THIS RN AND AIDES SUPERVISED VISIT AND INFORMED HIM THAT HE COULD NOT STAY VISITING HOURS WERE OVER. PATIENT DROPPED OFF A SUGAR FREE WATER FLAVORING MIX. THIS RN CONFIRMED IT WAS SUGAR FREE AND CHECKED LABELS. WRAPPING IN PLACE. NO OTHER SNACKS NOTED TO BE DROPPED OFF. VISITOR LEFT AFTER 5 MINUTES OF BEING IN ROOM. PATIENT EDUCATED ON VISITING HOURS AND NO SNACK POLICY. CALL LIGHT WITHIN REACH.
--- NOTE | 2022-05-22 04:44 | NUR ---
SHIFT SUMMARY PATIENT WITH SEVERAL EPISODES OF HYPOGLYCEMIA DURING THIS SHIFT. THIS RN FOLLOWED HYPOGLYCEMIA PROTOCOL. GLUCOSE STABLE AT THIS TIME, WILL REASSESS FOR 0600 CBG CHECK. OTHERWISE PATIENT HAD NO ACUTE CHANGES. NO CHANGES TO NEURO. CALLING APPROPRIATELY. REPOSITIONING Q2HRS. HOB ELEVATED. PATIENT REFUSING CPAP AT THIS TIME. ON 2L VIA NC. VITALS STABLE. BED IN LOWEST POSITION AND CALL LIGHT WITHIN REACH. THIS RN WILL CONTINUE TO MONITOR UNTIL SHIFT CHANGE AT 0700.
[2022-05-22 14:40] LABS: Hematocrit 30.3 % (33.0-51.0); Hemoglobin 9.4 g/dL (11.5-16.0)
[2022-05-22 15:55] LABS: Magnesium, Blood 2.8 mg/dL (1.6-2.4)
[2022-05-22 15:58] LABS: Albumin, Blood 2.6 g/dL (3.4-5.0); Anion Gap 19 mmol/L (6-16); Blood Urea Nitrogen 44 mg/dL (8-24); Bun/Creatinine Ratio 13.1 (12.0-20.0); CO2, Blood 28 mmol/L (21-32); Calcium, Blood 8.3 mg/dL (8.5-10.1); Chloride, Blood 96 mmol/L (98-108); Creatinine, Blood 3.35 mg/dL (0.40-1.00); Glomerular Filtration Rate 16 (60-); Glucose, Blood 219 mg/dL (70-99); Potassium, Blood 5.4 mmol/L (3.5-5.5); Sodium, Blood 143 mmol/L (136-145)
--- NOTE | 2022-05-22 17:49 | NUR ---
ALERT AND ORIENTED, MAKES NEEDS KNOWN, PLEASANT TO CARE, WOUND CARE TO FOLDS AND HEEL SCABS. BS DROPPED TO 41 AND THEN BACK TO 314 FOR DINNER, LABS DRAWN BY DIALYSIS AT 1430, POSSIBLE DIALYSIS TOMORROW, NO IV ACCESS, R CHEST PERMA CATH DIALYSIS ACCESS, CALL LIGHT WITH IN REACH, WILL RELAY TO PM RN
--- NOTE | 2022-05-23 04:54 | NUR ---
SHIFT SUMMARY NO ACUTE CHANGES OVERNIGHT. NO CHANGES TO NEURO. CALLING APPROPRIATELY. MEDICATING PER EMAR. REPOSITIONING Q2HRS. HEELS FLOATED. VITALS STABLE. WORE CPAP WHILE SLEEPING. ON 2L VIA NC CURRENTLY. BED IN LOWEST POSITION AND CALL LIGHT WITHIN REACH. THIS RN WILL CONTINUE TO MONITOR UNTIL SHIFT CHANGE AT 0700.
[2022-05-23 09:29] LABS: Hematocrit 29.4 % (33.0-51.0); Hemoglobin 9.2 g/dL (11.5-16.0)
[2022-05-23 09:59] LABS: Magnesium, Blood 2.9 mg/dL (1.6-2.4)
[2022-05-23 10:03] LABS: Albumin, Blood 2.7 g/dL (3.4-5.0); Anion Gap 8 mmol/L (6-16); Blood Urea Nitrogen 55 mg/dL (8-24); Bun/Creatinine Ratio 14.3 (12.0-20.0); CO2, Blood 28 mmol/L (21-32); Calcium, Blood 8.2 mg/dL (8.5-10.1); Chloride, Blood 100 mmol/L (98-108); Creatinine, Blood 3.85 mg/dL (0.40-1.00); Glomerular Filtration Rate 14 (60-); Glucose, Blood 216 mg/dL (70-99); Phosphorus, Blood 7.9 mg/dL (2.5-4.9); Sodium, Blood 136 mmol/L (136-145)
--- NOTE | 2022-05-23 10:05 | NUR ---
CARE ASSUMPTION This RN assumed care at 0700. Vital Signs Stable. Spo2 >90% on 2L NC. no tele. Patient is alert and oriented x4. Patient uses call light apporpiately to make needs known. Patient reports no shortness of breath. Bilateral clear lung sounds throughout. Patient reports no chest pain/pressure. Patient reports pain to back and heels. Medicated per emar. See pain assessment. Patient is incontinent of urine, attends in place. Patient has reddness to willie area, and coccyx that is blanachable. Patient has a healing pressure ulcer to right heel. Patient has a scratch on right leg. See shift assessment for further detials. Plan of care is up to date. patient repositioned to prevent skin break down. Bed bath and linen change this am. Patient to dialysis at 0915.
--- NOTE | 2022-05-23 12:48 | NUR ---
BACK FROM DIALYSIS PATIENT RETURNED FROM DIALYSIS. LUNCH GIVEN TO PATIENT.
--- NOTE | 2022-05-23 18:08 | NUR ---
SHIFT SUMMARY Patient neuro remains intact. vital signs stable. dialysis today. no acute changes this shift. call light within reach. plan of care up to date,
--- NOTE | 2022-05-24 06:35 | NUR ---
END OF SHIFT NO ACUTE CHANGES, SNACK LAST PM FOR FSBS OF 100, RANDOM AM CHECK THIS AM IS 293, NO INSULIN WAS HELD, COMPLIANT WITH CPAP ALL NIGHT
[2022-05-24 10:48] LABS: Hematocrit 29.1 % (33.0-51.0)
[2022-05-24 11:07] LABS: Albumin, Blood 2.8 g/dL (3.4-5.0); Anion Gap 8 mmol/L (6-16); Blood Urea Nitrogen 49 mg/dL (8-24); Bun/Creatinine Ratio 15.2 (12.0-20.0); CO2, Blood 30 mmol/L (21-32); Calcium, Blood 8.9 mg/dL (8.5-10.1); Chloride, Blood 97 mmol/L (98-108); Creatinine, Blood 3.23 mg/dL (0.40-1.00); Glomerular Filtration Rate 17 (60-); Glucose, Blood 280 mg/dL (70-99); Magnesium, Blood 2.9 mg/dL (1.6-2.4); Potassium, Blood 4.4 mmol/L (3.5-5.5); Sodium, Blood 135 mmol/L (136-145)
--- NOTE | 2022-05-24 16:35 | NUR ---
SHIFT SUMMARY This RN assumed care at 0700. vital signs stable throughout the day. see vital signs section. see blood sugar section for sugar info. patient is alert and oriented x4. patient reports no shortness of breath. spo2>90% on 2l nc. patient reports pain in heels and back. medicated per emar. see emar. patient reports no chest pain/pressure. see shift assessment for further detials. plan of care is up to date. no acute changes this shift. call light within reach and patient sitting in chair.
--- NOTE | 2022-05-25 05:58 | NUR ---
END OF SHIFT NO ACUTE CHANGES OVERNIGHT, PT RESTED ON CPAP, VSS
--- NOTE | 2022-05-25 08:57 | NUR ---
HD RN TO PT RM PCU#[id number] AT APPROX 0840AM TO DRAW LABS FROM HD CATHETER TO DETERMINE CORSE OF ACTION FOR TX. LABS DRAWN AT 0845 AND SENT TO LAB. DRESSING WAS CHANGED BY THIS RN. CATHETER SITE WAS WNL AND THE DRESSING WAS CLEAN DRY AND INTACT.
--- NOTE | 2022-05-25 17:23 | NUR ---
SHIFT SUMMARY This RN assumed care at 0700. vital signs stable and have remained stable throughout the shift. spo2 >95% on 2l NC. Patient is alert and oriented x4. Patient reports pain in heels and back. patient reports no chest pain/pressure. patient reports no shortness of breath. see shift assessment for further detials. patient had a shower today and full linen change. patient uses call light appropiately and is able to make needs known. Blood sugars low this afternoon, see lab section. provided snacks to increase and rechecked until therapeutic level. Plan of care is up to date. no acute changes. call light within reach. will give report to oncoming nurse.
--- NOTE | 2022-05-26 05:13 | NUR ---
VSS, NO ACUTE CHANGES OVERNIGHT, PROVIDED SNACKS FOR FSBS 100, 67, QND 131, WILL RECHECK AGAIN AT 0600
[2022-05-26 09:40] LABS: Hematocrit 30.7 % (33.0-51.0); Hemoglobin 9.6 g/dL (11.5-16.0)
--- NOTE | 2022-05-26 18:14 | NUR ---
Shift Summary Pt alert, oriented, anxious. Pt up in chair this am. Pt reporting pain to ble leg/feet, and back. Spo2 desaturates with movement, pt titrated this am to 6l, pt reporting need for diaylysis, titrated to 3l o2 via nc this afternoon post dialysis. Other VSS. While working with therapy, pt became diaphoretic and shakey, CBG 27, pt received 2 apple juices and glucose gel, rechecked pt at 47, pt receivied additional glucose gel, recheck 128. No other acute changes noted. Will continue monitor.
[2022-05-26 20:49] LABS: Blood Urea Nitrogen 84 mg/dL (8-24); Bun/Creatinine Ratio 19.7 (12.0-20.0); Calcium, Blood 8.7 mg/dL (8.5-10.1); Chloride, Blood 97 mmol/L (98-108); Creatinine, Blood 4.27 mg/dL (0.40-1.00); Glomerular Filtration Rate 12 (60-); Glucose, Blood 169 mg/dL (70-99); Sodium, Blood 132 mmol/L (136-145)
[2022-05-26 20:50] LABS: Albumin, Blood 2.9 g/dL (3.4-5.0); Anion Gap 11 mmol/L (6-16); CO2, Blood 24 mmol/L (21-32)
[2022-05-26 21:22] LABS: Magnesium, Blood 3.2 mg/dL (1.6-2.4)
[2022-05-26 21:24] LABS: Phosphorus, Blood 8.8 mg/dL (2.5-4.9)
--- NOTE | 2022-05-27 06:27 | NUR ---
SUMMARY NO ACUTE CHANGES THROUGH THE NIGHT. HS INSULIN DOSE WAS HELD DUE TO HYPOGLYCEMIC EPISODE DURING THE DAY, GLUCOSE WENT FROM 176 TO 110 I LESS THAN 2 HRS, ANTIPATED PT WOULD DROP MORE. DISCUSSED W/CORE RESCUER. PT HAS BEEN SLEEPING THROUGH THE NIGHT WITH NO PROBLEMS, SHE IS WEARING HER CPAP THIS AM BUT REFUSED IT THROUGH THE NIGHT. CALL LIGHT IN SANDI, MUSHTAQ & REPORT TO DAY RN.
--- NOTE | 2022-05-27 17:47 | NUR ---
SHIFT SUMMARY; ASSUMED CARE AT 0700, A/A/OX4 DURING SHIFT. UP IN RECLINER CHAIR FOR DAY. REPOSITIONED Q2, UP TO HARD CHAIR IN ROOM WITH LIFT TO WORK WITH PT. AMULATED TODAY SEVERAL STEPS WITH BREAKS IN BETWEEN. ATTENDS CHANGE, SPONGE BATH, ORAL CARE PROVIDED. INSULIN COVERAGE PER EMAR. NO ACUTE CHANGES, WILL CONTINUE TO MONITOR AND TREAT UNTIL CHANGE OF SHIFT.
--- NOTE | 2022-05-28 06:22 | NUR ---
SHIFT SUMMARY A/OX3, LIFT FOR TRANSFERS. INCONT, ATTENDS IN PLACE. SPO2 >92% ON 2L NC/CPAP. PERMACATH TO RCW. CBG 357 AROUND 0000, OT ORDER FOR 5U HUMALOG GIVEN. VSS, NO ACUTE CHANGES AT THIS TIME. BED IN LOWEST POSITION WITH CALL LIGHT IN REACH. WILL CONTINUE TO MONITOR AND REPORT TO ONCOMING RN.
--- NOTE | 2022-05-28 11:34 | NUR ---
Spiritual Care visit. Pt. was in dialysis when I visited her. Pt. welcomed my visit. Facilitated discussions regarding Pts. prognosis. Re-established rapport. Pt. verbalized encouragement that plans to D/C to a care facility in [place] were progressing. Pt. displayed evidence of clear thinking and ability to mentally focus on conversation. Considered matters of family relationships. Pt. verbalized gratitude for the spiritual care visit and welcomed this locomotive crane operator helper to return.
[2022-05-28 14:42] LABS: Anion Gap 9 mmol/L (6-16); Blood Urea Nitrogen 39 mg/dL (8-24); Bun/Creatinine Ratio 14.2 (12.0-20.0); CO2, Blood 29 mmol/L (21-32); Calcium, Blood 8.9 mg/dL (8.5-10.1); Chloride, Blood 95 mmol/L (98-108); Creatinine, Blood 2.74 mg/dL (0.40-1.00); Glomerular Filtration Rate 21 (60-); Glucose, Blood 195 mg/dL (70-99); Hematocrit 32.9 % (33.0-51.0); Hemoglobin 10.4 g/dL (11.5-16.0); Magnesium, Blood 2.8 mg/dL (1.6-2.4); Phosphorus, Blood 5.3 mg/dL (2.5-4.9); Potassium, Blood 4.2 mmol/L (3.5-5.5); Sodium, Blood 133 mmol/L (136-145)
--- NOTE | 2022-05-28 19:23 | NUR ---
SHIFT SUMMARY NO ACUTE CHANGES THIS SHIFT. PT A/O X4. ON 2-3L NC AND SPO2 92% AND GREATER. PT WORKED WITH PHYSICAL THERAPY TODAY, TOLERATED WELL. DIALYSIS ALSO TODAY AND RETURNED FEELING WELL. REPORT GIVEN TO PROFESSOR OF RHETORIC RN.
--- NOTE | 2022-05-29 06:39 | NUR ---
SHIFT SUMMERY PT HAS HAD NO ACUTE CHANGES OVERNIGHT. SHE DID COMPLAIN OF TOOTHPAIN. VS HAVE REMAINED STABLE W/NO EPISODES OF ACUTE DISTRESS.
[2022-05-29 13:20] LABS: Hematocrit 30.1 % (33.0-51.0); Hemoglobin 9.4 g/dL (11.5-16.0)
[2022-05-29 13:53] LABS: Albumin, Blood 2.7 g/dL (3.4-5.0); Anion Gap 7 mmol/L (6-16); Blood Urea Nitrogen 54 mg/dL (8-24); CO2, Blood 29 mmol/L (21-32); Calcium, Blood 8.8 mg/dL (8.5-10.1); Chloride, Blood 98 mmol/L (98-108); Creatinine, Blood 3.85 mg/dL (0.40-1.00); Glomerular Filtration Rate 14 (60-); Glucose, Blood 238 mg/dL (70-99); Magnesium, Blood 2.8 mg/dL (1.6-2.4); Phosphorus, Blood 7.5 mg/dL (2.5-4.9); Potassium, Blood 5.6 mmol/L (3.5-5.5); Sodium, Blood 134 mmol/L (136-145)
--- NOTE | 2022-05-29 18:15 | NUR ---
SHIFT SUMMARY MINIMAL CHANGE FOR PT THIS SHIT. PT C/O TOOTH PAIN. PT MEDICATED PER EMAR. ORDERS FOR CT OF THE HEAD WITH CONTRAST SCHEDULED FOR AM PRIOR TO PT GOING TO DIALYSIS. PT VSS. NAD. PT A/O X4. PLEASANT AND COOPERATIVE WITH CARE.
--- NOTE | 2022-05-30 07:33 | NUR ---
SHIFT SUMMARY NO ACUTE CHANGES THROUGH THE NIGHT, PT REFUSING TO GET INTO BED AND SLEPT IN CHAIR, VSS, O2 VIA NC @ 2L, PT TO CT THIS AM, SHE IS CURRENTLY BACK IN HER CHAIR AWAITING DIALYSIS, CALL LIGHT IN REACH, PAIN MNG PER EMAR, LIDOCAINE SWISH & ORAJEL HELPING W/TOOTH PAIN. REPORT GIVEN TO ONCOMING RN.
[2022-05-30 09:35] LABS: Hematocrit 29.3 % (33.0-51.0)
--- NOTE | 2022-05-30 09:51 | NUR ---
0905 TAKEN TO DIALYSIS. Pt has been complaining of tooth pain on left side. Tooth looks broken and decayed. She is applying orajel for relief.
[2022-05-30 10:04] LABS: Magnesium, Blood 2.9 mg/dL (1.6-2.4)
[2022-05-30 10:29] LABS: Albumin, Blood 2.9 g/dL (3.4-5.0); Anion Gap 7 mmol/L (6-16); Blood Urea Nitrogen 64 mg/dL (8-24); Bun/Creatinine Ratio 14.1 (12.0-20.0); CO2, Blood 27 mmol/L (21-32); Calcium, Blood 8.9 mg/dL (8.5-10.1); Chloride, Blood 99 mmol/L (98-108); Creatinine, Blood 4.54 mg/dL (0.40-1.00); Glomerular Filtration Rate 11 (60-); Glucose, Blood 163 mg/dL (70-99); Phosphorus, Blood 8.6 mg/dL (2.5-4.9); Potassium, Blood 5.7 mmol/L (3.5-5.5); Sodium, Blood 133 mmol/L (136-145)
--- NOTE | 2022-05-30 10:47 | NUR ---
notified Lesia of critically high phosphate level. Call to Dr. Deng to notify him.
--- NOTE | 2022-05-30 14:00 | NUR ---
Transferred pt from recliner to the bed for complete bed bath. She was also incontinent of a very large soft formed stool. Reapplication of nystatin powder after the bath per pt request as she was having some itching in the folds of her legs. Relief afterwards, per pt. Pt was transferred back to her recliner after the bath and positioned with pillows to comfort. She has been alert, oriented and with a good appetite. Vital signs stable. On 2 l/min of oxygen delivery. This afternoon her tooth on the left lower jaw is not hurting, she says.
--- NOTE | 2022-05-31 05:21 | NUR ---
SHIFT SUMMARY PATIENT ALERT AND ORIENTED X4. PATIENT DECLINED GETTING INTO BED TO SLEEP. MEDICATED PER EMAR FOR JAW PAIN. VITAL SIGNS STABLE. PATIENT DENIED HAVING CHEST PAIN/PRESSURE. LUNG SOUNDS DIMINISHED IN BASES, NO COMPLAINTS OF SHORTNESS OF BREATH. SPO2 >90% ON 2 LITERS O2. PATIENT WORE CPAP AFTER MIDNIGHT. NO ACUTE ISSUES NOTED OVERNIGHT. CALL LIGHT WITHIN REACH.
[2022-05-31 09:26] LABS: Hematocrit 29.3 % (33.0-51.0); Hemoglobin 9.1 g/dL (11.5-16.0)
--- NOTE | 2022-05-31 09:41 | NUR ---
DIALYSIS [facility] FROM HD CATH PER PROTOCAL FOR RENAL PANEL AND H&H,
[2022-05-31 09:44] LABS: Albumin, Blood 2.8 g/dL (3.4-5.0); Anion Gap 9 mmol/L (6-16); Blood Urea Nitrogen 49 mg/dL (8-24); Bun/Creatinine Ratio 13.8 (12.0-20.0); CO2, Blood 29 mmol/L (21-32); Calcium, Blood 8.7 mg/dL (8.5-10.1); Chloride, Blood 101 mmol/L (98-108); Creatinine, Blood 3.54 mg/dL (0.40-1.00); Glomerular Filtration Rate 15 (60-); Glucose, Blood 159 mg/dL (70-99); Magnesium, Blood 2.7 mg/dL (1.6-2.4); Phosphorus, Blood 7.3 mg/dL (2.5-4.9); Potassium, Blood 4.3 mmol/L (3.5-5.5); Sodium, Blood 139 mmol/L (136-145)
--- NOTE | 2022-05-31 18:05 | NUR ---
SHIFT SUMMARY; ASSUMED CARE AT 0700. A/A/OX4. IN RECLINER CHAIR AT START OF SHIFT. REFUSED TO BE IN HOSPITAL BED. MOVED TO BED WITH LIFT FOR BED BATH AND ATTENDS CHANGE. BACK TO RECLINER WITH PILLOWS UNDER BUTTOX ELBOWS AND EGG GRATE UNDER HEELS. INCREASINGLY SOB IN AFTERNOON WITH SATS DOWN TO 80%. PLACED ON CPAP BY RT. L/S DIM T/O. DR. SNYDER TO ROOM TO EVALUATE. CHEST XRAY ORDRED. SATS INCREASED TO MID 90'S ON CPAP. INSULIN COVERAGE PER ORDERS. MINIMAL DINNER EATEN, S/S INSULIN GIVEN WITH CARB COUNT INSULIN WELL. VSS, WILL CONTINUE TO MONITOR AND TREAT UNTIL CHANGE OF SHIFT.
--- NOTE | 2022-06-01 07:13 | NUR ---
SHIFT SUMMARY PATIENT ALERT AND ORIENTED X4. MEDICATED PER EMAR FOR PAIN. VITAL SIGNS STABLE. PATIENT WORE CPAP ALL NIGHT, STATES SHE FEELS MUCH BETTER THIS MORNING. LUNG SOUNDS WERE COARSE, PATIENT REQUIRED 6 LITERS O2 VIA NC BEFORE WEARING CPAP, CURRENTLY ON 3 LITERS O2 VIA NC. NO ACUTE ISSUES NOTED OVERNIGHT. CALL LIGHT WITHIN REACH.
--- NOTE | 2022-06-01 07:30 | NUR ---
ASSUMED CARE: PT RESTING QUIETLY AT 3L O2 VIA NC. CALL TO DIALYSIS TO FIND OUT SCHEDULE. PLANS FOR DIALYSIS AT 0830. REHABILITATION AIDE/SCHEDULER AND RAISED PRINTER AWARE. NO ACUTE NEEDS OR CONCERNS AT THIS TIME.
--- NOTE | 2022-06-01 08:30 | NUR ---
PT TRANSFERRED TO DIALYSIS IN RECLINER BY KIAN
[2022-06-01 08:55] LABS: Hematocrit 30.2 % (33.0-51.0); Hemoglobin 9.4 g/dL (11.5-16.0)
[2022-06-01 09:20] LABS: Albumin, Blood 2.8 g/dL (3.4-5.0); Anion Gap 11 mmol/L (6-16); Blood Urea Nitrogen 68 mg/dL (8-24); Bun/Creatinine Ratio 16.3 (12.0-20.0); CO2, Blood 27 mmol/L (21-32); Calcium, Blood 8.9 mg/dL (8.5-10.1); Chloride, Blood 97 mmol/L (98-108); Creatinine, Blood 4.18 mg/dL (0.40-1.00); Glomerular Filtration Rate 13 (60-); Glucose, Blood 236 mg/dL (70-99); Phosphorus, Blood 7.9 mg/dL (2.5-4.9); Potassium, Blood 4.9 mmol/L (3.5-5.5); Sodium, Blood 135 mmol/L (136-145)
--- NOTE | 2022-06-01 18:03 | NUR ---
SHIFT SUMMARY: PT WENT TO DIALYSIS TODAY AND DIALYSIS NURSES REQUEST THAT STAFF BE MORE AWARE OF FLUID RESTRICTION, ESPECIALLY WITH ICE. NURSE REPORTS THAT 5L HAVE BEEN REMOVED DAILY DURING DIALYSIS RUNS. EDUCATED PT REGARDING FLUID RESTRICTION AND THAT FLUID OVERLOAD WAS REASON WHY PT WAS SOB AND NEEDING CPAP YESTERDAY. MEDICATED PER ORDERS FOR CBGS AND MEDICATED FOR PAIN X1. PAINTED RIGHT HEEL WITH BETADINE PER ORDERS. NO FURTHER NEEDS OR CONCERNS AT THIS TIME.
--- NOTE | 2022-06-02 06:07 | NUR ---
SHIFT SUMMARY PATIENT ALERT AND ORIENTED X3-4. MEDICATED PER EMAR FOR PAIN. HAD NO COMPLAINTS OF SHORTNESS OF BREATH. WORE HER CPAP FOR A FEW HOURS. VITAL SIGNS STABLE. NO ACUTE ISSUES NOTED OVERNIGHT. CALL LIGHT WITHIN REACH.
[2022-06-02 08:56] LABS: Hematocrit 31.1 % (33.0-51.0); Hemoglobin 9.6 g/dL (11.5-16.0)
[2022-06-02 10:02] LABS: Albumin, Blood 2.9 g/dL (3.4-5.0); Anion Gap 19 mmol/L (6-16); Blood Urea Nitrogen 45 mg/dL (8-24); Bun/Creatinine Ratio 14.2 (12.0-20.0); CO2, Blood 27 mmol/L (21-32); Calcium, Blood 8.7 mg/dL (8.5-10.1); Chloride, Blood 95 mmol/L (98-108); Creatinine, Blood 3.18 mg/dL (0.40-1.00); Glomerular Filtration Rate 18 (60-); Glucose, Blood 182 mg/dL (70-99); Magnesium, Blood 2.7 mg/dL (1.6-2.4); Potassium, Blood 4.1 mmol/L (3.5-5.5); Sodium, Blood 141 mmol/L (136-145)
--- NOTE | 2022-06-02 18:38 | NUR ---
SHIFT SUMMARY: PT ALERT AND ORIENTED, ABLE TO MAKE NEEDS KNOWN, COOPERATIVE W/CARE. O2 SATS >92% ON 2 L/MIN NC. PT DENIES CP, VSS. PT TO DIALYSIS TODAY, APPROX 4L REMOVED. FLUID RESTRICTION STRICTLY FOLLOWED TODAY. POC TESTING PERFORMED PER ORDERS FOR GLUCOSE MONITORING, MEDICATED PER ORDERS. PT SPENDS MOST OF THE DAY IN RECLINER, RECEIVED BED BATH THIS AM. AT THIS TIME, PT RESTING QUIETLY IN ROOM WITH CALL LIGHT IN REACH. WILL CONTINUE TO MONITOR AND TREAT ACCORDINGLY UNTIL CHANGE OF SHIFT.
--- NOTE | 2022-06-03 05:30 | NUR ---
SHIFT SUMMARY PT IS A/Ox3 AN IS COOPERATIVE WITH CARE PROVIDED BY MEMBERS OF STAFF. ABLE TO MAKE MOST NEEDS KNOWN TO STAFF AND IS ABLE TO ANSWER QUESTIONS APPROPRIATELY. NO ACUTE CHANGES OVER NIGHT. CONTINUES TO MAINTAIN SPO2 >95% ON 2L VIA NC WELL CPAP AT NIGHT. NO SOB OR DYSPNEA NOTED WILL AT REST. CARDIAC SARABIA, PT IS NOT ON TELEMETRY, BUT HAS NOT REPORTED ANY CP OR PRESSURE T/O THE SHIFT. BP CONTINUES TO FLUCTUATE FORM SBP 130-160-S'. PT IS INCONTIENT AT TIMES, BUT IS ALSO A HEMODIALYSIS PT AND RECEIVED HD 06/02/22. PAIN MANAGED PER EMAR. CLINICAL PSYCHOLOGIST LICENSED CONTINUES TO WORK ON NURSING HOME PLACEMENT FOR PT WITH POSSIBLE DC TO FACILITY THIS WEEK. NO NEW ORDERS AT THIS TIME. WILL REPORT INFORMAITON TO MARCOS CLAYTON RN. RADHA TOVAR OF THIS NOTE.
--- NOTE | 2022-06-03 06:30 | NUR ---
DIALYSIS NOTE SALES CENTER ASSOCIATE IN TO DRAW LABS FROM HD CATH AT REQUEST OF BEDSIDE RN AND LAB AND WITH APPROVAL FROM .
[2022-06-03 07:18] LABS: Hematocrit 28.6 % (33.0-51.0); Hemoglobin 8.8 g/dL (11.5-16.0)
[2022-06-03 07:35] LABS: Albumin, Blood 2.8 g/dL (3.4-5.0); Anion Gap 5 mmol/L (6-16); Blood Urea Nitrogen 42 mg/dL (8-24); Bun/Creatinine Ratio 12.7 (12.0-20.0); CO2, Blood 32 mmol/L (21-32); Calcium, Blood 9.1 mg/dL (8.5-10.1); Chloride, Blood 99 mmol/L (98-108); Glomerular Filtration Rate 17 (60-); Glucose, Blood 260 mg/dL (70-99); Magnesium, Blood 3.1 mg/dL (1.6-2.4); Phosphorus, Blood 6.8 mg/dL (2.5-4.9); Potassium, Blood 4.1 mmol/L (3.5-5.5); Sodium, Blood 136 mmol/L (136-145)
--- NOTE | 2022-06-03 13:19 | NUR ---
AM NOTE: ASSUMED CARE OF PT THIS AM AFTER RECEIVING REPORT FROM KRISTI DOE. PT A&Ox4, RESP EVEN AND UNLABORED, VSS. PT VOIDS LARGE BM THIS AM. BEDBATH COMPLETED. INSULIN ADMINISTERED PER ORDERS W/OUT INCIDENT. CURRENT PLAN OF [facility] PLACEMENT CONTINUES IN PLACE, PENDING APPROVAL.
--- NOTE | 2022-06-03 18:48 | NUR ---
SHIFT SUMMARY: NO ACUTE CHANGES THIS SHIFT. PT CONTINUES A&Ox4, RESP EVEN AND UNLABORED, O2 SATS >92% ON 2 L/MIN NC. PT DENIES SOB OR CP. PT WORKS WITH PT TODAY, AMBULATES OUT TO [facility] AND BACK. INSULIN COVERAGE PROVIDED PER ORDERS. AT THIS TIME, PT RESTING IN RECLINER W/CALL LIGHT IN REACH. WILL CONTINUE TO MONITOR AND TREAT ACCORDINGLY UNTIL CHANGE OF SHIFT.
--- NOTE | 2022-06-04 05:02 | NUR ---
SHIFT SUMMARY PT IS A/Ox3 AND IS COOPERATIVE WITH CARE PROVIDED BY MEMBERS OF STAFF. ABLE TO ANSWER MOST QUESTIONS APPROPRIATELY AND ABLE TO MAKE NEEDS KNOWN. HOWEVER, CAN BE FORGETFUL/CONFUSED AT TIMES. MAINTAINS SPO2 >95% ON 2L VIA NC WELL CPAP AT NOC. NO SOB NOTED WHILE AT REST. CARDIAC SARABIA, PT IS PCU STATUS W/O TELE, BUT HAS HAD NO REPORTS OF CP OR PRESSURE T/O THE SHIFT. BP CONTINUES TO FLUCTUATE BETWEEN 140-160 SBP. PT IS ON HEMODIALYSIS, BUT IS STILL INCONTINENT OF BOTH URINE AND BOWEL. HAD A FEW EPISODES OF HYPOGLYCEMIA DURING THE MIDDLE OF THE SHIFT. CARB HEAVY SNACKS DID NOT SUCCESSFULLY INCREASE BLOOD GLUCOSE SO A INST-GLUCOSE TUBE WAS ADMINISTERED ORDERD PER EMAR. BLOOD GLUCOSE STABLIZED AFTER ADMIN. PLAN FOR PT TO DC ON 06/06/22. NO NEW ORDERS AT THIS TIME. WILL GIVE REPORT TO MATILDE GARCIA T/O THE SHIFT.
--- NOTE | 2022-06-04 09:04 | NUR ---
CARE NOTE PT IS NOW AT DIALYSIS AT APPROX 0900, BP ELEVATED AT 158/128, SEE EMAR FOR BP MANAGEMENT. PT DENIES FEELING SOB, SHE DENIES NAUSEA WELL COUGH. PAIN REPORTED 09/22, SEE EMAR FOR PAIN MANAGEMENT. WILL CONTINUE TO MONITOR.
[2022-06-04 09:24] LABS: Hematocrit 30.5 % (33.0-51.0); Hemoglobin 9.5 g/dL (11.5-16.0)
[2022-06-04 09:52] LABS: Magnesium, Blood 3.1 mg/dL (1.6-2.4)
[2022-06-04 10:22] LABS: Albumin, Blood 2.9 g/dL (3.4-5.0); Anion Gap 11 mmol/L (6-16); Blood Urea Nitrogen 57 mg/dL (8-24); Bun/Creatinine Ratio 13.3 (12.0-20.0); CO2, Blood 27 mmol/L (21-32); Chloride, Blood 99 mmol/L (98-108); Creatinine, Blood 4.28 mg/dL (0.40-1.00); Glomerular Filtration Rate 12 (60-); Glucose, Blood 224 mg/dL (70-99); Sodium, Blood 137 mmol/L (136-145)
[2022-06-04 10:24] LABS: Phosphorus, Blood 8.1 mg/dL (2.5-4.9)
--- NOTE | 2022-06-04 16:57 | NUR ---
SHIFT SUMMARY PT IS ALERT AND ORIENTED X4. VSS. SPO2 MAINTAINED >95% VIA ROOM AIR AND PT DENIES FEELING SOB. PAIN REPORTED IN BILAT FEET WELL BACK, SEE EMAR FOR PAIN MANAGEMENT. REPOSITIONING ALSO PROVIDED PRN TO MAINTAIN COMFORT. NO IV ACCESS PER EMAR ORDERS. DIALYSIS CATHETER IN R [place] AREA IS COVERED W/ DRESSING, DRESSING CHANGED 06/04/22. PT RECIEVED DIALYSIS AND 4.6 L REMOVED PER MAGNETO SPECIALIST REPORT. PHYSICAL THERAPY WORKED W/ PT AND PT AMBULATED W/ FWW AND GAIT BELT. THIS RN ASSISTED PT W/ AMBULATION DURING SHIFT WELL FOR HOME EVAL. ATTENDS IN PLACE AND ARE DRY/CLEAN. HEADACHE WAS REPORTED THIS AM BUT PT REPORTED HEADACHE HAS SINCE RESOLVED. PT NOW IN RECLINER CHAIR AND APPEARS TO BE WATCHING TV. CALL LIGHT IS IN REACH. WILL CONTINUE TO MONITOR UNTIL REPORT GIVEN.
--- NOTE | 2022-06-05 03:20 | NUR ---
UPDATE SPOKE WITH RT ABOUT PT's SLEEP STUDY. RT REPORTS PT HAS DESATED TO MID-LOW 80'S AND WAS PLACED ON 2L VIA NC DURING THE NIGHT. PT MAINTAINS SPO2 >95% ON 2L WITH NO MORE SIGNS OF DESATURATION. OF THIS NOTE, PT REMAINS ASLEEP WITH NC IN PLACE. WILL REPORT INFORMATION TO DAY SHIFT RN.
--- NOTE | 2022-06-05 05:35 | NUR ---
SHIFT SUMMARY PT REMAINS A/0x3-4 AND IS COOPERATIVE WITH CARE PROVIDED BY MEMBERS OF STAFF. ABLE TO MAKE NEEDS KNOWN, BUT HAS OCCASIONAL EPISODES OF CONFUSION/TROUBLE WITH SHORT TERM MEMORY. UNDERWENT SLEEP STUDY THIS SHIFT IN LIEU OF DC TODAY. WAS PLACED ON 2L OF O2 DUE TO DESATTING WHEN SLEEPING. SEE UPDATE NOTE FOR MORE DETAIL. CARDIAC SARABIA NO ACUTE EVENTS T/O THE NIGHT. NO REPORTS OF CP OR PRESSURE WITH SBP AND HR REMAINING STABLE. PT RECEIVED HD ON 06/04/22 WITH ~ 4.5L OF FLUID REMOVED. NO EPISODES OF HYPOGLYCEMIA THIS SHIFT. PAIN HAS BEEN MANAGED ORDERD VIA EMAR. WILL REPORT TO DAY SHIFT RN. RADHA TOVAR T/O THE SHIFT
[2022-06-05 09:35] LABS: Hematocrit 31.4 % (33.0-51.0); Hemoglobin 9.6 g/dL (11.5-16.0)
[2022-06-05 10:34] LABS: Anion Gap 9 mmol/L (6-16); Blood Urea Nitrogen 53 mg/dL (8-24); Bun/Creatinine Ratio 12.5 (12.0-20.0); CO2, Blood 27 mmol/L (21-32); Calcium, Blood 8.7 mg/dL (8.5-10.1); Chloride, Blood 96 mmol/L (98-108); Creatinine, Blood 4.23 mg/dL (0.40-1.00); Glomerular Filtration Rate 12 (60-); Glucose, Blood 412 mg/dL (70-99); Phosphorus, Blood 7.4 mg/dL (2.5-4.9); Potassium, Blood 4.5 mmol/L (3.5-5.5); Sodium, Blood 132 mmol/L (136-145)
--- NOTE | 2022-06-05 11:46 | NUR ---
Spiritual Care Visit. Pt. is in dialysis and welcomes my visit. Pt. is unsettled by her transfer to a care facility in [place] later today. Listen with empathy and a calming presence. With pastoral care and encouragement I normalized the Pt. experience. This Pt. and this wild life manager have met together for over a year. The dialysis team celebrated the Pts. birthday with festive decorations. Pt. displayed evidence that she felt cared for, and will miss the supportive staff at . Prayed with Pt. Pt. verbalized gratitude for the spiritual care visit.
[2022-06-05] MEDS ORDERED: METO50 PO (13:20)
[2022-06-05] MEDS ORDERED: METH5 PO (13:25)
[2022-06-05] MEDS ORDERED: GABA100 PO (13:26)
[2022-06-05] MEDS ORDERED: VITAMIN C125 MG PO (13:35)
[2022-06-05] MEDS ORDERED: B-COMPLEX WITH1 EAC2 PO (13:41)
[2022-06-05] MEDS ORDERED: BUME2 PO (13:42)
[2022-06-05] MEDS ORDERED: Benadryl Itch28.3 G1 TOP (13:42)
[2022-06-05] MEDS ORDERED: FERSU300 PO (13:44)
[2022-06-05] MEDS ORDERED: FLUT.05NI (13:45)
[2022-06-05] MEDS ORDERED: MOVANTIK12.5 MG PO (13:46)
[2022-06-05] MEDS ORDERED: Renvela800 MG PO (13:52)
[2022-06-05] MEDS ORDERED: SIME80CH PO (13:53)
[2022-06-05] MEDS ORDERED: MIRALAX17 GM PO (13:54)
[2022-06-05] MEDS ORDERED: Triamcinolone A15 G3 TOP (13:56)
[2022-06-05] MEDS ORDERED: Calcium Acetat667 MG PO (14:07)
--- NOTE | 2022-06-05 14:07 | NUR ---
DISCHARGE NOTE PT WAS IN DIALYSIS FOR MUCH OF THE MORNING. PT WAS ABLE TO EAT LUNCH BEFORE DISCHARGE. INSULIN WAS GIVEN WELL AM BP MEDS. MD WAS PHONED FOR ONE TIME STONEY MILLER FOR CAR RIDE. FAMILY WAS PRESENT AT TIME OF DISCHARGE. REPORT WAS PHONED TOPAUL NURSE AT ACCEPTING FACILITY. THIS RN STRESSED THE IMPORTANT OF STRICT FLUID RESTRICTION, BLOOD SUGAR CONTROL AND BOUNDARY SETTING. EMPHASIS ON CARB COUNTING AND INSULIN DOSING. PT WAS DISCHARGED WITH A LARGE AMOUNT OF EQUIPMENT AND SUPPLIES, ALL BELONGING WERE TAKEN WITH PT.
== END 2022-06-05 13:27 | disposition home or self-care (01) | DRG 622 ==
LOC: ER 03:44 → PCU 06:20 → ICUW 06:20 → MEDS 06:20 → ICUW 06:55 → PCU 11-24 17:49 → MEDS 12-07 10:21 → PCU 12-24 00:17 → MEDS 02-18 22:50 → ICUW 03-27 02:27 → MEDS 03-27 16:00 → ICUW 03-28 04:39 → MEDS 03-29 13:46 → PCU 04-03 20:07 → ICUE 04-04 00:13 → PCU 04-08 14:15
PROVIDERS: Emergency Medicine; Family Medicine; Family Medicine Adult Medicine; Hospitalist; Internal Medicine Critical Care Medicine; Internal Medicine Nephrology; Pharmacist; Podiatrist; Student in an Organized Health Care Education/Training Program; ADMIT Family Medicine
PROC: 5A12012 Performance of Cardiac Output, Single, Manual (ICD-10-PCS; principal; 2021-11-16)
PROC: 0BH17EZ Insertion of Endotracheal Airway into Trachea, Via Natural or Artificial Opening (ICD-10-PCS; 2021-11-16)
PROC: 07HT33Z Insertion of Infusion Device into Bone Marrow, Percutaneous Approach (ICD-10-PCS; 2021-11-16)
PROC: 02HV33Z Insertion of Infusion Device into Superior Vena Cava, Percutaneous Approach (ICD-10-PCS; 2021-11-16)
PROC: 5A1945Z Respiratory Ventilation, 24-96 Consecutive Hours (ICD-10-PCS; 2021-11-16)
PROC: 0JBQ0ZZ Excision of Right Foot Subcutaneous Tissue and Fascia, Open Approach (ICD-10-PCS; 2021-12-14)
PROC: 0JBQ0ZZ Excision of Right Foot Subcutaneous Tissue and Fascia, Open Approach (ICD-10-PCS; 2022-04-04)
PROC: 5A1D70Z Performance of Urinary Filtration, Intermittent, Less than 6 Hours Per Day (ICD-10-PCS; 2022-05-03)
DX: E11.10 Type 2 diabetes mellitus with ketoacidosis without coma (principal); G92.8 Other toxic encephalopathy; L89.613 Pressure ulcer of right heel, stage 3; J96.01 Acute respiratory failure with hypoxia; N18.6 End stage renal disease; J18.9 Pneumonia, unspecified organism; I46.8 Cardiac arrest due to other underlying condition; I50.32 Chronic diastolic (congestive) heart failure; I13.2 Hypertensive heart and chronic kidney disease with heart failure and with stage 5 chronic kidney disease, or end stage renal disease; N25.81 Secondary hyperparathyroidism of renal origin; J44.0 Chronic obstructive pulmonary disease with (acute) lower respiratory infection; I97.630 Postprocedural hematoma of a circulatory system organ or structure following a cardiac catheterization; J81.1 Chronic pulmonary edema; E87.1 Hypo-osmolality and hyponatremia; M86.171 Other acute osteomyelitis, right ankle and foot; T74.11XA Adult physical abuse, confirmed, initial encounter; L03.115 Cellulitis of right lower limb; E87.6 Hypokalemia; E87.5 Hyperkalemia; Z20.822 Contact with and (suspected) exposure to COVID-19; Q77.4 Achondroplasia; E11.22 Type 2 diabetes mellitus with diabetic chronic kidney disease; I65.23 Occlusion and stenosis of bilateral carotid arteries; E11.43 Type 2 diabetes mellitus with diabetic autonomic (poly)neuropathy; K21.9 Gastro-esophageal reflux disease without esophagitis; G47.33 Obstructive sleep apnea (adult) (pediatric); K31.84 Gastroparesis; E66.01 Morbid (severe) obesity due to excess calories; Z99.2 Dependence on renal dialysis; D63.1 Anemia in chronic kidney disease; Y95 Nosocomial condition; E88.09 Other disorders of plasma-protein metabolism, not elsewhere classified; K59.00 Constipation, unspecified; B85.0 Pediculosis due to Pediculus humanus capitis; Y09 Assault by unspecified means; Y07.9 Unspecified perpetrator of maltreatment and neglect; L02.32 Furuncle of buttock; H66.93 Otitis media, unspecified, bilateral; E83.39 Other disorders of phosphorus metabolism; E11.621 Type 2 diabetes mellitus with foot ulcer; K02.9 Dental caries, unspecified; E83.41 Hypermagnesemia; R82.71 Bacteriuria; H00.011 Hordeolum externum right upper eyelid; E83.51 Hypocalcemia; Z68.23 Body mass index [BMI] 23.0-23.9, adult; Z86.718 Personal history of other venous thrombosis and embolism; Z91.119 Patient's noncompliance with dietary regimen due to unspecified reason; Z99.89 Dependence on other enabling machines and devices; Z86.73 Personal history of transient ischemic attack (TIA), and cerebral infarction without residual deficits; Z93.0 Tracheostomy status; Z88.0 Allergy status to penicillin; Z88.1 Allergy status to other antibiotic agents; Z88.2 Allergy status to sulfonamides; Z88.4 Allergy status to anesthetic agent; Z88.8 Allergy status to other drugs, medicaments and biological substances; Z79.4 Long term (current) use of insulin; Z79.82 Long term (current) use of aspirin; Z79.899 Other long term (current) drug therapy; Y84.0 Cardiac catheterization as the cause of abnormal reaction of the patient, or of later complication, without mention of misadventure at the time of the procedure; Z78.1 Physical restraint status
CPT/HCPCS: 0241U; 31500; 36415; 36416; 36569; 36600; 36680; 51702; 70450; 70486; 70487; 71045; 73090; 73630; 73650; 80047; 80048; 80053; 80069; 80074; 80202; 81001; 82010; 82306; 82728; 82803; 82947; 83036; 83540; 83550; 83605; 83735; 83880; 84100; 84132; 84145; 84443; 84703; 85014; 85018; 85025; 85027; 85651; 86141; 86317; 87040; 87070; 87075; 87077; 87086; 87147; 87186; 87205; 87340; 92526; 92610; 92950; 93005; 93010; 93306; 93926; 93971; 94002; 94003; 94640; 94660; 94760; 94761; 94762; 96374-59; 96375-59; 96376-59; 97110; 97110-CQ; 97112; 97116; 97129; 97130; 97140; 97162; 97164; 97166; 97168; 97530; 97535; 99291-25; A9270; C1751; C1894; C9113; G0480; J0360; J0610; J0692; J0696; J0744; J0881; J1100; J1644; J1815; J2250; J2405; J2543; J2704; J2795; J2916; J2930; J2997; J3010; J3370; J3480; J7030; J7050; J7060; J7120; P9047; Q9967